=== PATIENT | male | born 1950 | race Caucasian/White ===

== ENCOUNTER 2021-11-30 08:08 | Outpatient (CLI) | payer MEDICARE, BC, SELFPAY | END 2021-11-30 08:09 | disposition home or self-care (01) | LOC: WOUND 08:09 | PROVIDERS: PCP Family Medicine; Visit Provider Nurse Practitioner Family | DX: I87.312 Chronic venous hypertension (idiopathic) with ulcer of left lower extremity (principal); L97.325 Non-pressure chronic ulcer of left ankle with muscle involvement without evidence of necrosis; I87.2 Venous insufficiency (chronic) (peripheral); Z86.718 Personal history of other venous thrombosis and embolism; D68.2 Hereditary deficiency of other clotting factors | CPT/HCPCS: 11042 ==

== ENCOUNTER 2021-12-07 08:08 | Outpatient (CLI) | payer MEDICARE, BC, SELFPAY | END 2021-12-07 08:09 | disposition home or self-care (01) | PROVIDERS: Visit Provider Nurse Practitioner Family | DX: I87.312 Chronic venous hypertension (idiopathic) with ulcer of left lower extremity (principal); L97.225 Non-pressure chronic ulcer of left calf with muscle involvement without evidence of necrosis; I87.2 Venous insufficiency (chronic) (peripheral) | CPT/HCPCS: 97597 ==

== ENCOUNTER 2021-12-21 07:56 | Outpatient (CLI) | payer MEDICARE, BC, SELFPAY | END 2021-12-21 07:57 | disposition home or self-care (01) | LOC: WOUND 07:57 | PROVIDERS: Visit Provider Nurse Practitioner Family | DX: I87.312 Chronic venous hypertension (idiopathic) with ulcer of left lower extremity (principal); L97.322 Non-pressure chronic ulcer of left ankle with fat layer exposed; D68.2 Hereditary deficiency of other clotting factors; I87.2 Venous insufficiency (chronic) (peripheral); Z86.718 Personal history of other venous thrombosis and embolism | CPT/HCPCS: 11042 ==

== ENCOUNTER 2021-12-28 07:56 | Outpatient (CLI) | payer MEDICARE, BC, SELFPAY | END 2021-12-28 07:57 | disposition home or self-care (01) | LOC: WOUND 07:56 | PROVIDERS: Visit Provider Nurse Practitioner Family | DX: I83.023 Varicose veins of left lower extremity with ulcer of ankle (principal); L97.325 Non-pressure chronic ulcer of left ankle with muscle involvement without evidence of necrosis | CPT/HCPCS: 11042 ==

== ENCOUNTER 2022-01-04 07:56 | Outpatient (CLI) | payer MEDICARE, BC, SELFPAY | END 2022-01-04 07:57 | disposition home or self-care (01) | LOC: WOUND 07:57 | PROVIDERS: Visit Provider Nurse Practitioner Family | DX: I87.312 Chronic venous hypertension (idiopathic) with ulcer of left lower extremity (principal); L97.322 Non-pressure chronic ulcer of left ankle with fat layer exposed | CPT/HCPCS: 11042 ==

== ENCOUNTER 2022-01-11 07:56 | Outpatient (CLI) | payer MEDICARE, BC, SELFPAY | END 2022-01-11 07:57 | disposition home or self-care (01) | LOC: WOUND 07:56 | PROVIDERS: Visit Provider Nurse Practitioner Family | DX: I87.312 Chronic venous hypertension (idiopathic) with ulcer of left lower extremity (principal); L97.325 Non-pressure chronic ulcer of left ankle with muscle involvement without evidence of necrosis | CPT/HCPCS: 15271; Q4121 ==

== ENCOUNTER 2022-01-18 08:02 | Outpatient (CLI) | payer MEDICARE, BC, SELFPAY | END 2022-01-18 08:03 | disposition home or self-care (01) | LOC: WOUND 08:02 | PROVIDERS: Visit Provider Nurse Practitioner Family | DX: I87.312 Chronic venous hypertension (idiopathic) with ulcer of left lower extremity (principal); L97.325 Non-pressure chronic ulcer of left ankle with muscle involvement without evidence of necrosis | CPT/HCPCS: 11042 ==

== ENCOUNTER 2022-01-25 07:57 | Outpatient (CLI) | payer MEDICARE, BC, SELFPAY | END 2022-01-25 07:58 | disposition home or self-care (01) | LOC: WOUND 07:57 | PROVIDERS: Visit Provider Nurse Practitioner Family | DX: I87.312 Chronic venous hypertension (idiopathic) with ulcer of left lower extremity (principal); L97.325 Non-pressure chronic ulcer of left ankle with muscle involvement without evidence of necrosis | CPT/HCPCS: 15271; Q4121 ==

== ENCOUNTER 2022-02-01 08:03 | Outpatient (CLI) | payer MEDICARE, BC, SELFPAY | END 2022-02-01 08:04 | disposition home or self-care (01) | LOC: WOUND 08:04 | PROVIDERS: Visit Provider Nurse Practitioner Family | DX: I87.312 Chronic venous hypertension (idiopathic) with ulcer of left lower extremity (principal); L97.325 Non-pressure chronic ulcer of left ankle with muscle involvement without evidence of necrosis | CPT/HCPCS: 97597 ==

== ENCOUNTER 2022-02-15 07:54 | Outpatient (CLI) | payer MEDICARE, BC, SELFPAY | END 2022-02-15 07:55 | disposition home or self-care (01) | LOC: WOUND 07:54 | PROVIDERS: Visit Provider Nurse Practitioner Family | DX: I87.312 Chronic venous hypertension (idiopathic) with ulcer of left lower extremity (principal); L97.325 Non-pressure chronic ulcer of left ankle with muscle involvement without evidence of necrosis | CPT/HCPCS: 15271; Q4121 ==

== ENCOUNTER 2022-02-22 07:50 | Outpatient (CLI) | payer MEDICARE, BC, SELFPAY | END 2022-02-22 07:51 | disposition home or self-care (01) | LOC: WOUND 07:50 | PROVIDERS: Visit Provider Nurse Practitioner Family | DX: I87.312 Chronic venous hypertension (idiopathic) with ulcer of left lower extremity (principal); L97.325 Non-pressure chronic ulcer of left ankle with muscle involvement without evidence of necrosis | CPT/HCPCS: 97597 ==

== ENCOUNTER 2022-03-01 07:58 | Outpatient (CLI) | payer MEDICARE, BC, SELFPAY | END 2022-03-01 07:59 | disposition home or self-care (01) | LOC: WOUND 07:59 | PROVIDERS: Visit Provider Nurse Practitioner Family | DX: I87.312 Chronic venous hypertension (idiopathic) with ulcer of left lower extremity (principal); L97.225 Non-pressure chronic ulcer of left calf with muscle involvement without evidence of necrosis | CPT/HCPCS: 11042 ==

== ENCOUNTER 2022-03-15 07:54 | Outpatient (CLI) | payer MEDICARE, BC, SELFPAY | END 2022-03-15 07:55 | disposition home or self-care (01) | LOC: WOUND 07:54 | PROVIDERS: Visit Provider Nurse Practitioner Family | DX: I87.313 Chronic venous hypertension (idiopathic) with ulcer of bilateral lower extremity (principal); L97.325 Non-pressure chronic ulcer of left ankle with muscle involvement without evidence of necrosis; L97.312 Non-pressure chronic ulcer of right ankle with fat layer exposed | CPT/HCPCS: 97602; 99213 ==

== ENCOUNTER 2022-03-29 07:54 | Outpatient (CLI) | payer MEDICARE, BC, SELFPAY | END 2022-03-29 07:55 | disposition home or self-care (01) | PROVIDERS: PCP Family Medicine; Visit Provider Nurse Practitioner Family | DX: I87.313 Chronic venous hypertension (idiopathic) with ulcer of bilateral lower extremity (principal); L97.322 Non-pressure chronic ulcer of left ankle with fat layer exposed; L97.312 Non-pressure chronic ulcer of right ankle with fat layer exposed | CPT/HCPCS: 97602; 99214 ==

== ENCOUNTER 2022-04-12 07:52 | Outpatient (CLI) | payer MEDICARE, BC, SELFPAY | END 2022-04-12 07:53 | disposition home or self-care (01) | LOC: WOUND 07:52 | PROVIDERS: PCP Family Medicine; Visit Provider Nurse Practitioner Family | DX: I87.312 Chronic venous hypertension (idiopathic) with ulcer of left lower extremity (principal); L97.225 Non-pressure chronic ulcer of left calf with muscle involvement without evidence of necrosis; I87.2 Venous insufficiency (chronic) (peripheral); L20.9 Atopic dermatitis, unspecified; Z86.718 Personal history of other venous thrombosis and embolism; D68.2 Hereditary deficiency of other clotting factors | CPT/HCPCS: 99213 ==

== ENCOUNTER 2022-04-19 07:58 | Outpatient (CLI) | payer MEDICARE, BC, SELFPAY | END 2022-04-19 07:59 | disposition home or self-care (01) | LOC: WOUND 07:58 | PROVIDERS: PCP Family Medicine; Visit Provider Nurse Practitioner Family | DX: I87.312 Chronic venous hypertension (idiopathic) with ulcer of left lower extremity (principal); L97.225 Non-pressure chronic ulcer of left calf with muscle involvement without evidence of necrosis; I87.2 Venous insufficiency (chronic) (peripheral) | CPT/HCPCS: 99212 ==

== ENCOUNTER 2022-09-10 10:54 | Emergency (ER) | payer MEDICARE, BC, SELFPAY ==
[2022-09-10 11:10] VITALS: BP 145/93; PULSE 60; RESP 18; TEMP 36.7; O2SAT 95; BMI 31.6
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
--- NOTE | 2022-09-10 12:21 | CRLHL7_ITS ---
For Patients: As a result of the Century Cures Act, medical imaging exams and procedure reports are released immediately into your electronic medical record. You may view this report before your referring provider. If you have questions, please contact your health care provider. Indication: Trauma. Technique: Two views right hand Comparison: None. Findings: Bones: There is a mildly displaced oblique fracture of the thumb proximal phalanx with extent to the MCP joint. There are also comminuted fractures of the 1st and 2nd distal phalanges and a nondisplaced fracture of the 3rd distal phalanx. Joint spaces: Mild-moderate arthrosis. Chondrocalcinosis. Soft tissues: Unremarkable. Impression: Fractures of the 1st proximal phalanx and 1st, 2nd and 3rd distal phalanges Dictated by Rogelio Cruz MD @ 09/10/2022 2:04:30 PM (Electronically Signed)
[2022-09-10 15:48] LABS: INR 2.56 (0.91-1.10); Prothrombin Time 28.7 Seconds
== END 2022-09-10 15:21 | disposition home or self-care (01) ==
PROVIDERS: Emergency Provider Family Medicine; PCP Student in an Organized Health Care Education/Training Program
DX: S61.011A Laceration without foreign body of right thumb without damage to nail, initial encounter (principal); S61.210A Laceration without foreign body of right index finger without damage to nail, initial encounter; S61.212A Laceration without foreign body of right middle finger without damage to nail, initial encounter; S61.214A Laceration without foreign body of right ring finger without damage to nail, initial encounter; S62.634A Displaced fracture of distal phalanx of right ring finger, initial encounter for closed fracture; S62.511A Displaced fracture of proximal phalanx of right thumb, initial encounter for closed fracture; W37.8XXA Explosion and rupture of other pressurized tire, pipe or hose, initial encounter
CPT/HCPCS: 12001; 29130; 36415; 73120; 85610; 99284

== ENCOUNTER 2022-11-06 08:03 | Outpatient (CLI) | payer MEDICARE, BC, SELFPAY | END 2022-11-06 08:04 | disposition home or self-care (01) | LOC: WOUND 08:03 | PROVIDERS: PCP Student in an Organized Health Care Education/Training Program; Visit Provider Nurse Practitioner Family | DX: I87.312 Chronic venous hypertension (idiopathic) with ulcer of left lower extremity (principal); I87.2 Venous insufficiency (chronic) (peripheral); I89.0 Lymphedema, not elsewhere classified; L97.829 Non-pressure chronic ulcer of other part of left lower leg with unspecified severity | CPT/HCPCS: 99212 ==

== ENCOUNTER 2022-11-20 08:38 | Outpatient (CLI) | payer MEDICARE, BC, SELFPAY | END 2022-11-20 08:39 | disposition home or self-care (01) | LOC: WOUND 08:38 | PROVIDERS: PCP Student in an Organized Health Care Education/Training Program; Visit Provider Physician Assistant Surgical | DX: I87.312 Chronic venous hypertension (idiopathic) with ulcer of left lower extremity (principal); L97.322 Non-pressure chronic ulcer of left ankle with fat layer exposed; I87.2 Venous insufficiency (chronic) (peripheral); I89.0 Lymphedema, not elsewhere classified | CPT/HCPCS: 11042 ==

== ENCOUNTER 2022-12-06 08:00 | Outpatient (RCR) | payer MEDICARE, BC, SELFPAY ==
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
== END 2022-12-06 16:46 | disposition home or self-care (01) ==
PROVIDERS: PCP Student in an Organized Health Care Education/Training Program; Visit Provider Orthopaedic Surgery
DX: S61.419A Laceration without foreign body of unspecified hand, initial encounter (principal); S62.609A Fracture of unspecified phalanx of unspecified finger, initial encounter for closed fracture; Z51.89 Encounter for other specified aftercare
CPT/HCPCS: 97110; 97140; X5282

== ENCOUNTER 2022-12-11 09:07 | Outpatient (CLI) | payer MEDICARE, BC, SELFPAY | END 2022-12-11 09:08 | disposition home or self-care (01) | LOC: WOUND 09:07 | PROVIDERS: PCP Student in an Organized Health Care Education/Training Program; Visit Provider Nurse Practitioner Family | DX: I87.313 Chronic venous hypertension (idiopathic) with ulcer of bilateral lower extremity (principal); L97.322 Non-pressure chronic ulcer of left ankle with fat layer exposed; L97.312 Non-pressure chronic ulcer of right ankle with fat layer exposed | CPT/HCPCS: 11042; 97597 ==

== ENCOUNTER 2022-12-25 08:02 | Outpatient (CLI) | payer MEDICARE, BC, SELFPAY | END 2022-12-25 08:03 | disposition home or self-care (01) | LOC: WOUND 08:02 | PROVIDERS: PCP Student in an Organized Health Care Education/Training Program; Visit Provider Nurse Practitioner Family | DX: I87.313 Chronic venous hypertension (idiopathic) with ulcer of bilateral lower extremity (principal); L97.312 Non-pressure chronic ulcer of right ankle with fat layer exposed; L97.322 Non-pressure chronic ulcer of left ankle with fat layer exposed | CPT/HCPCS: 11042 ==

== ENCOUNTER 2023-01-08 07:58 | Outpatient (CLI) | payer MEDICARE, BC, SELFPAY | END 2023-01-08 07:59 | disposition home or self-care (01) | LOC: WOUND 07:59 | PROVIDERS: PCP Student in an Organized Health Care Education/Training Program; Visit Provider Nurse Practitioner Family | DX: I87.313 Chronic venous hypertension (idiopathic) with ulcer of bilateral lower extremity (principal); L97.212 Non-pressure chronic ulcer of right calf with fat layer exposed; L97.322 Non-pressure chronic ulcer of left ankle with fat layer exposed; I87.2 Venous insufficiency (chronic) (peripheral); I89.0 Lymphedema, not elsewhere classified | CPT/HCPCS: 87070; 87186; 97597; 99212 ==

== ENCOUNTER 2023-01-22 08:04 | Outpatient (CLI) | payer MEDICARE, BC, SELFPAY | END 2023-01-22 08:05 | disposition home or self-care (01) | LOC: WOUND 08:05 | PROVIDERS: PCP Student in an Organized Health Care Education/Training Program; Visit Provider Nurse Practitioner Family | DX: I87.313 Chronic venous hypertension (idiopathic) with ulcer of bilateral lower extremity (principal); L97.312 Non-pressure chronic ulcer of right ankle with fat layer exposed; L97.322 Non-pressure chronic ulcer of left ankle with fat layer exposed; I87.2 Venous insufficiency (chronic) (peripheral); I89.0 Lymphedema, not elsewhere classified | CPT/HCPCS: 97597 ==

== ENCOUNTER 2023-02-05 08:03 | Outpatient (CLI) | payer MEDICARE, BC, SELFPAY | END 2023-02-05 08:04 | disposition home or self-care (01) | LOC: WOUND 08:03 | PROVIDERS: PCP Student in an Organized Health Care Education/Training Program; Visit Provider Nurse Practitioner Family | DX: I87.313 Chronic venous hypertension (idiopathic) with ulcer of bilateral lower extremity (principal); L97.312 Non-pressure chronic ulcer of right ankle with fat layer exposed; L97.322 Non-pressure chronic ulcer of left ankle with fat layer exposed; L97.812 Non-pressure chronic ulcer of other part of right lower leg with fat layer exposed | CPT/HCPCS: 11042; 97597 ==

== ENCOUNTER 2023-02-19 08:15 | Outpatient (CLI) | payer MEDICARE, BC, SELFPAY | END 2023-02-19 08:16 | disposition home or self-care (01) | LOC: WOUND 08:16 | PROVIDERS: PCP Student in an Organized Health Care Education/Training Program; Visit Provider Nurse Practitioner Family | DX: I87.313 Chronic venous hypertension (idiopathic) with ulcer of bilateral lower extremity (principal); L97.312 Non-pressure chronic ulcer of right ankle with fat layer exposed; L97.322 Non-pressure chronic ulcer of left ankle with fat layer exposed | CPT/HCPCS: 97597 ==

== ENCOUNTER 2023-03-05 08:06 | Outpatient (CLI) | payer MEDICARE, BC, SELFPAY | END 2023-03-05 08:07 | disposition home or self-care (01) | LOC: WOUND 08:06 | PROVIDERS: PCP Student in an Organized Health Care Education/Training Program; Visit Provider Nurse Practitioner Family | DX: I87.313 Chronic venous hypertension (idiopathic) with ulcer of bilateral lower extremity (principal); L97.312 Non-pressure chronic ulcer of right ankle with fat layer exposed; L97.322 Non-pressure chronic ulcer of left ankle with fat layer exposed; I87.2 Venous insufficiency (chronic) (peripheral); I89.0 Lymphedema, not elsewhere classified | CPT/HCPCS: 97597 ==

== ENCOUNTER 2023-03-19 08:06 | Outpatient (CLI) | payer MEDICARE, BC, SELFPAY | END 2023-03-19 08:07 | disposition home or self-care (01) | LOC: WOUND 08:07 | PROVIDERS: PCP Student in an Organized Health Care Education/Training Program; Visit Provider Nurse Practitioner Family | DX: I87.313 Chronic venous hypertension (idiopathic) with ulcer of bilateral lower extremity (principal); L97.312 Non-pressure chronic ulcer of right ankle with fat layer exposed; L97.322 Non-pressure chronic ulcer of left ankle with fat layer exposed; I87.2 Venous insufficiency (chronic) (peripheral); I89.0 Lymphedema, not elsewhere classified | CPT/HCPCS: 97597 ==

== ENCOUNTER 2023-04-02 10:46 | Outpatient (CLI) | payer MEDICARE, BC, SELFPAY | END 2023-04-02 10:47 | disposition home or self-care (01) | LOC: WOUND 10:46 | PROVIDERS: PCP Student in an Organized Health Care Education/Training Program; Visit Provider Nurse Practitioner Family | DX: I87.313 Chronic venous hypertension (idiopathic) with ulcer of bilateral lower extremity (principal); L97.322 Non-pressure chronic ulcer of left ankle with fat layer exposed; L97.312 Non-pressure chronic ulcer of right ankle with fat layer exposed; L97.318 Non-pressure chronic ulcer of right ankle with other specified severity | CPT/HCPCS: 97597 ==

== ENCOUNTER 2023-04-16 07:55 | Outpatient (CLI) | payer MEDICARE, BC, SELFPAY | END 2023-04-16 07:56 | disposition home or self-care (01) | LOC: WOUND 07:55 | PROVIDERS: PCP Student in an Organized Health Care Education/Training Program; Visit Provider Family Medicine | DX: I87.313 Chronic venous hypertension (idiopathic) with ulcer of bilateral lower extremity (principal); L97.322 Non-pressure chronic ulcer of left ankle with fat layer exposed; L97.312 Non-pressure chronic ulcer of right ankle with fat layer exposed; I89.0 Lymphedema, not elsewhere classified | CPT/HCPCS: 97597 ==

== ENCOUNTER 2023-04-30 08:08 | Outpatient (CLI) | payer MEDICARE, BC, SELFPAY | END 2023-04-30 08:09 | disposition home or self-care (01) | LOC: WOUND 08:09 | PROVIDERS: PCP Student in an Organized Health Care Education/Training Program; Visit Provider Nurse Practitioner Family | DX: I87.313 Chronic venous hypertension (idiopathic) with ulcer of bilateral lower extremity (principal); L97.312 Non-pressure chronic ulcer of right ankle with fat layer exposed; L97.322 Non-pressure chronic ulcer of left ankle with fat layer exposed | CPT/HCPCS: 11042; 97597 ==

== ENCOUNTER 2023-05-14 08:08 | Outpatient (CLI) | payer MEDICARE, BC, SELFPAY | END 2023-05-14 08:09 | disposition home or self-care (01) | LOC: WOUND 08:09 | PROVIDERS: PCP Student in an Organized Health Care Education/Training Program; Visit Provider Nurse Practitioner Family | DX: L97.312 Non-pressure chronic ulcer of right ankle with fat layer exposed (principal); L97.322 Non-pressure chronic ulcer of left ankle with fat layer exposed; I89.0 Lymphedema, not elsewhere classified; I87.313 Chronic venous hypertension (idiopathic) with ulcer of bilateral lower extremity | CPT/HCPCS: 97597 ==

== ENCOUNTER 2023-05-28 08:00 | Outpatient (CLI) | payer MEDICARE, BC, SELFPAY | END 2023-05-28 08:01 | disposition home or self-care (01) | LOC: WOUND 08:00 | PROVIDERS: PCP Student in an Organized Health Care Education/Training Program; Visit Provider Family Medicine | DX: I87.313 Chronic venous hypertension (idiopathic) with ulcer of bilateral lower extremity (principal); L97.322 Non-pressure chronic ulcer of left ankle with fat layer exposed; L97.312 Non-pressure chronic ulcer of right ankle with fat layer exposed; L08.89 Other specified local infections of the skin and subcutaneous tissue; B96.5 Pseudomonas (aeruginosa) (mallei) (pseudomallei) as the cause of diseases classified elsewhere | CPT/HCPCS: 11042; 87070; 87186; 99212 ==

== ENCOUNTER 2023-06-01 03:43 | Outpatient (CLI) | payer MEDICARE, BC, SELFPAY | END 2023-06-01 03:44 | disposition home or self-care (01) | LOC: AMB 06-05 10:49 | PROVIDERS: PCP Student in an Organized Health Care Education/Training Program; Visit Provider Family Medicine | DX: G47.00 Insomnia, unspecified (principal) ==

== ENCOUNTER 2023-06-05 10:05 | Outpatient (CLI) | payer MEDICARE, BC, SELFPAY | END 2023-06-05 10:06 | disposition home or self-care (01) | LOC: WOUND 10:05 | PROVIDERS: PCP Student in an Organized Health Care Education/Training Program; Visit Provider Family Medicine | DX: I87.313 Chronic venous hypertension (idiopathic) with ulcer of bilateral lower extremity (principal); L97.312 Non-pressure chronic ulcer of right ankle with fat layer exposed; L97.322 Non-pressure chronic ulcer of left ankle with fat layer exposed; I89.0 Lymphedema, not elsewhere classified | CPT/HCPCS: 11042 ==

== ENCOUNTER 2023-06-11 08:01 | Outpatient (CLI) | payer MEDICARE, BC, SELFPAY ==
--- OUTSIDE RECORDS SUMMARY | 2023-06-11 08:03 | XMS_ITS | Clinical Summary ---
Author Name Unknown Organization [facility] Address [place], [place] [address] Care Team Providers Care Radiologic Therapist Name Role Phone Yue Alonso Thomasmedhat ELIZA Primary Care Provider Allergies Active Allergy Reactions Criticality Noted Date Comments Atorvastatin Myalgia 07/04/2022 Medications Medication Sig Dispensed Refills Start Date End Date Status WARFARIN SODIUM (WARFARIN ORAL) Take 7.5 mg by mouth. 0 Active losartan (COZAAR) 50 mg tablet Take 50 mg by mouth once daily. 0 Active traMADol (ULTRAM) 50 mg tablet Take 50 mg by mouth every 6 hours if needed for Pain. 0 Active ACETAMINOPHEN ORAL Take 1,000 mg by mouth 3 times daily if needed. 0 Active gabapentin (NEURONTIN) 300 mg capsule Take 600 mg by mouth 2 times daily. 0 02/14/2021 Active cephalexin (KEFLEX) 500 mg capsule Take 500 mg by mouth 3 times daily. 0 05/10/2021 Active permethrin (ELIMITE) 5 % creamIndications:Rash, Scabies,Itchy skin Apply to entire body from the neck down and leave on for 8 hours. Then rinse and repeat this in one week. 60 g 0 05/13/2021 Active amLODIPine (NORVASC) 10 mg tablet Take 10 mg by mouth once daily. 0 03/16/2022 Active zolpidem (AMBIEN) 5 mg tablet Take 1 Tablet by mouth at bedtime. 0 01/25/2022 Active Active Problems Problem Noted Date Diagnosed Date Asymmetrical sensorineural hearing loss 11/09/19 23 Hyperlipidemia 07/02/2017 Excessive anticoagulation 05/17/2017 Adenomatous polyp of colon 07/13/2016 Overview: Overview: Sessile serrated adenoma & tubular adenoma. No overt or high grade dysplasia. Per pathology reprot. Arthritis of shoulder 07/13/2016 Chronic pain syndrome 07/13/2016 Edema leg 07/13/2016 Essential hypertension 07/13/2016 Overview: Overview: Hypertension (HTN) Essential Benign Osteoporosis 07/13/2016 Pain of lower extremity 07/13/2016 Overview: Overview: Saw Neurologist at [facility] on 09/16/2009. MRI lumbar spine done on 09/09/2009. 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 Presence of cardiac and vasc ular implant and graft, unspecified 01/11/2012 Chondrocalcinosis due to pyrophosphate crystals 12/16/2011 Pain, knee 12/13/2011 Polyarthralgia 11/18/2011 Insomnia 11/18/2011 Obstructive sleep apnea syndrome 11/18/2011 Overview: He does not use CPAP. He does not think he needs it. Osteoarthritis 11/18/2011 Debility 04/11/2009 Encounters Date Type Department Care Team Description 05/10/2023 9:30 AM GERMINATION TESTING MANAGER Office Visit [facility] [address] [place] [address] Bhavik Benson, AuD Hearing Aid 05/10/2023 Travel from Last 3 Months Immunizations Name Administration Dates Next Due Tdap 01/12/2008 Social History Tobacco Use Types Packs/Day Years Used Date Smoking Tobacco: Former Cigarettes Q uit: 06/03/1982 Passive Smoke Exposure: Past Smokeless Tobacco: Never Tobacco Cessation:Counseling Given: Not Answered Alcohol Use Standard Drinks/Week Comments No 0 (1 standard drink = 0.6 oz pur e alcohol) Social Connections Answer Date Recorded Frequency of Communication with Friends and Fami ly Not on file 05/27/2021 Financial Resource Strain Answer Date R ecorded Difficulty of Paying Living Expenses Not on file 05/27/2021 Difficulty of Paying Living Expenses Not on file 05/27/2021 Sex and Gender Information Value Date Recorded Sex Assigned at Not on file Gender Identity Not on file Sexual Orientation Not on file Obstetrics History Last Filed Vital Signs Vital Sign Reading Time Taken Comments Blood Pressure 117/67 05/13/2021 2:55 PM GERMINATION TESTING MANAGER Pulse 103 05/13/2021 2:55 PM GERMINATION TESTING MANAGER Temperature 36.9 ??C (98.4 ??F) 05/13/2021 2:55 PM CS T Respiratory Rate 18 05/13/2021 2:55 PM GERMINATION TESTING MANAGER Oxygen Saturation 99% 05/13/2021 2:55 PM GERMINATION TESTING MANAGER Inhaled Oxygen Concentration - - Weight 97.8 kg (215 lb 9.8 oz) 07/04/2022 11:35 AM GERMINATION TESTING MANAGER Height 175.7 cm (5' 9.17) 07/04/2022 11:[address] Body Mass Index 31.68 07/04/2022 11:35 AM GERMINATION TESTING MANAGER Plan of Treatment Health Maintenance Due Date Last Done Comments Depression screening for age 12+ 1960 Hepatitis C screening for age 18-79 1966 Colonoscopy through age 75 1993 Lipids for age 45-75 1993 Zoster (shingles) series for age 50+ (1 of 2) 1998 AAA screening age 65-74 2013 Medicare Wellness for age 65+ 2013 Pneumococcal series for age 65+ (1 of 1 - PCV) 2013 Tetanus booster 01/11/2018 01/12/2008 BMI (ht and wt on same day) for age 18+ 04/15/2021 04/15/2020 COVID-19 vaccine series ( season) 2023 04/14/2021, 08/28/2020, 07/31/2020 Influenza for age 65+ 02/01/2023 Tdap Completed 01/12/2008 Advance Directives Latest Code Status on File Code Status Date Activated Date Inactivated Comments Full Code 12/27/2014 8:51 AM 12/27/2014 12:46 PM Care Teams Radiologic Therapist Relationship Specialty Start Date End Date Yue Alonso MBBS [address] [place] [address] [place] [address] PCP - General Family Practice 06/26/22
--- OUTSIDE RECORDS SUMMARY | 2023-06-11 08:03 | XMS_ITS | Clinical Summary ---
Author Name Unknown Organization [facility] Address [address] [place] [address] Care Team Providers Care Recreational [employer]ilities Motel Manager Name Role Phone Stefan Salomon M.D. Primary Care Provider [phone] Source Comments Patient records contain information from all sites at [facility]. For routine questions regarding patient records, call [phone] during business hours, M-F 8:00 AM - 5:00 PM Central Time. Record requests for emergency care only can be directed to [phone] at any time.[facility] Allergies Active Allergy Reactions Criticality Noted Date Comments Atorvastatin Myalgia 02/08/2017 Leg Pain/Cramps Cbdzthe-Zqq-Wcp Reductase Inhibitors Other (see comments) 09/10/2022 Medications Medication Sig Dispensed Refills Start Date End Date Status hydrocortisone (HYTONE) 2.5 % cream Apply to rash/itch/irritation involving the face and skin folds twice daily as needed 30 g 2 2 Active fluocinonide (LIDEX) 0.05 % cream Apply twice daily to areas of rash/itch/irritation as needed. DO NOT use on face or skin folds 120 g 2 2 Active triamcinolone (KENALOG) 0.1 % cream Apply to rash/itch/irritation involving the trunk and extremities twice daily as needed. DO NOT use on face or skin folds. 454 g 1 3 Active acetaminophen (TYLENOL) 500 mg capsule Take 500 mg by mouth every 6 (six) hours as needed for pain. Takes 4,000 mg usually each day 0 Active fluorouraciL (EFUDEX) 5 % cream Apply 1 application. topically 2 (two) times a day. Apply to scalp for 2-3 weeks. 40 g 0 3 Active losartan (COZAAR) 50 mg tablet Take 1 tablet (50 mg total) by mouth daily. 90 tablet 3 3 08/01/19 24 Active polyethylene glycol-electrolyt es (GoLYTELY) 236-22.74-6.74 -5.86 gram solution Drink 1st portion of prep at 6 PM the evening before. 2nd portion must be started 3 hours before and finished 2 hours prior to report time 4000 mL 0 3 Active zolpidem (AMBIEN) 5 mg tablet TAKE ONE TABLET BY MOUTH AT BEDTIME NEEDED FOR SLEEP 30 tablet 0 3 Active warfarin (COUMADIN) 5 mg tabletIndications :Anticoagulant Therapy,Mutation Factor V Leiden Heterozygous (HCC),Monitoring For Therapeutic Drug Therapy,Thrombosi s Deep Vein Personal History Please take as directed by your Anticoagulation Clinic. 130 tablet 3 3 Active gabapentin (NEURONTIN) 300 mg capsuleIndication s:Insufficiency Venous,Chronic Pain Syndrome,Pain Limb Generalized,Pain Leg Bilateral,Pseudog out Take 2 capsules (600 mg total) by mouth 3 (three) times a day. 540 capsule 3 3 Active amLODIPine (NORVASC) 10 mg tablet TAKE ONE TABLET BY MOUTH EVERY DAY 90 tablet 3 3 Active traMADoL (ULTRAM) 50 mg tabletIndications :Chronic Pain/Nonacute Pain Take 1-2 tablets (50-100 mg total) by mouth every 6 (six) hours as needed for pain Indications: Chronic Pain/Nonacute Pain. 240 tablet 0 4 Active traMADoL (ULTRAM) 50 mg tabletIndications :Chronic Pain/Nonacute Pain Take 1-2 tablets (50-100 mg total) by mouth every 6 (six) hours as needed for pain Indications: Chronic Pain/Nonacute Pain. 240 tablet 0 3 06/01/20 23 Discontinu ed(Reorder ) Active Problems Problem Noted Date Diagnosed Date Activated Protein C Resistance 06/19/2022 History Of Falling 05/12/2020 Monitoring For Therapeutic Drug Therapy [Z51.81] 08/20/2017 Hyperlipidemia 07/02/2017 Anticoagulant Therapy [Z79.01] 05/17/2017 Hypertension Essential Primary 07/13/2016 Overview: Hypertension (HTN) Essential Benign Arthritis Shoulder 07/13/2016 Chronic Pain Syndrome 07/13/2016 Degeneration Disc Cervical 07/13/2016 Fatigue 07/13/2016 Insufficiency Venous 07/13/2016 Osteoporosis 07/13/2016 Pain Leg Bilateral 07/13/2016 Polyp Colon Adenomatous 07/13/2016 Overview: Sessile serrated adenoma & tubular adenoma. No overt or high grade dysplasia. Per pathology reprot. Mutation Factor V Leiden Heterozygous 06/13/2016 Stasis Ulcer Varicose Vein Right 12/08/2015 Stasis Ulcer With Varicose Vein Left 12/08/2015 Neuropathy Peripheral Vasculitic 11/09/2015 Obstruction Inferior Vena Cava 08/01/2015 Stasis Dermatitis Lower Extremity 12/06/2014 Complication Mechanical Dental Implant Subsequen t 08/18/2014 Thrombosis Deep Vein Personal History 01/08/2014 Restless Leg Syndrome 10/14/2013 Overview: Starts Klonopin on 07/09/2013. Inferior Vena Cava Filter 01/11/2012 Pseudogout 12/16/2011 Pain Knee 12/13/2011 Snoring 2011 Burning Sensation Skin 11/18/2011 Osteoarthritis 11/18/2011 Insomnia 11/18/2011 Pain Limb Generalized 11/18/2011 Overview: Saw Neurologist at [facility] on 09/16/2009. MRI lumbar spine done on 09/09/2009. Apnea Sleep Obstructive 11/18/2011 Overview: He does not use CPAP. He does not think he needs it. Polyarthralgia 11/18/2011 Dysfunction Erectile 09/21/2010 Arthralgia 10/14/2009 Chondrocalcinosis 10/14/2009 Atrophy Muscular 04/11/2009 Edema 03/29/2009 Edentulous Partial 12/27/2008 Non-Pressure Chronic Ulcer O f Unspecified Part Of Right Lower Leg With Unspecified Severity Resolved Problems Problem Noted Date Diagnosed Date Resolved Date COVID-19 Infection 07/24/2021 3 Drooling 09/05/2016 08/01/2022 Neuroma Acoustic 07/13/2016 08/19/2018 Overview: Neuroma Acoustic Left Compartment Syndrome Leg Nontraumatic Left 07/13/2016 08/01/2022 Edema Leg 07/13/2016 08/01/2022 Fever Rheumatic Personal History 07/13/2016 08/01/2022 High Risk Medication 07/13/2016 023 Ulcer Leg Left 11/09/2015 07/15/2017 Overview: Ulcer Leg L Ulcer Lower Limb 12/06/2014 08/19/2018 Anemia 05/08/2012 08/19/2018 Thrombosis Deep Vein Acute Lower Extremity 11/18/2011 07/15/2017 Overview: DVT of right leg S/P IVC filter on 08/24/1996. 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 Anticoagulant Therapy [Z79.01] (Primary Dx); Mutation Factor V Leiden Heterozygous (HCC); Monitoring For Therapeutic Drug Therapy [Z51.81]; Thrombosis Deep Vein Personal History 06/04/2023 1:46 PM MANAGER FIELD INVESTIGATIONS - 06/04/2023 11:59 PM MANAGER FIELD INVESTIGATIONS Hospital Encounter Department of Laboratory Medicine in [address] [address] Stefan Salomon M.D. Anticoagulant Therapy [Z79.01]; Mutation Factor V Leiden Heterozygous (HCC); Monitoring For Therapeutic Drug Therapy [Z51.81]; Thrombosis Deep Vein Personal History Discharge Disposition: Home or Self Care 06/01/2023 Refill Department of Family Medicine, [facility], in [address] [address] Stefan Salomon M.D. Med Refill 05/31/2023 Clinical Communication Department of Family Medicine, [facility], in [address] [address] Stefan Salomon M.D. 05/17/2023 10:00 AM MANAGER FIELD INVESTIGATIONS Anticoagulation Visit Department of Anticoagulation in [address] [address] Stefan Salomon M.D. Anticoagulant Therapy [Z79.01] (Primary Dx); Mutation Factor V Leiden Heterozygous (HCC); Monitoring For Therapeutic Drug Therapy [Z51.81]; Thrombosis Deep Vein Personal History; Hypertension Essential Primary; Hyperlipidemia; Residential (Current) Anticoagulant Treatment 05/17/2023 7:20 AM MANAGER FIELD INVESTIGATIONS - 05/17/2023 11:59 PM MANAGER FIELD INVESTIGATIONS Hospital Encounter Department of Laboratory Medicine in [address] [address] Stefan Salomon M.D. Anticoagulant Therapy [Z79.01]; Mutation Factor V Leiden Heterozygous (HCC); Monitoring For Therapeutic Drug Therapy [Z51.81]; Thrombosis Deep Vein Personal History Discharge Disposition: Home or Self Care 05/01/2023 Refill Department of Family Medicine, [facility], in [address] [address] Stefan Salomon M.D. Med Refill 04/22/2023 8:00 AM MANAGER FIELD INVESTIGATIONS Anticoagulation Visit Department of Anticoagulation in [address] [address] Stefan Salomon M.D. Anticoagulant Therapy [Z79.01] (Primary Dx); Mutation Factor V Leiden Heterozygous (HCC); Monitoring For Therapeutic Drug Therapy [Z51.81]; Thrombosis Deep Vein Personal History 04/19/2023 9:02 AM MANAGER FIELD INVESTIGATIONS - 04/19/2023 11:59 PM MANAGER FIELD INVESTIGATIONS Hospital Encounter Department of Laboratory Medicine in [address] [address] Stefan Salomon M.D. Discharge Disposition: Home or Self Care 04/19/2023 9:00 AM MANAGER FIELD INVESTIGATIONS Anticoagulation Visit Department of Anticoagulation in [place], [place] [address] [place] [address] Stefan Salomon M.D. Anticoagulant Therapy [Z79.01]; Mutation Factor V Leiden Heterozygous (HCC); Monitoring For Therapeutic Drug Therapy [Z51.81]; Thrombosis Deep Vein Personal History 04/19/2023 7:33 AM MANAGER FIELD INVESTIGATIONS - 04/19/2023 9:01 AM MANAGER FIELD INVESTIGATIONS Hospital Encounter Department of Laboratory Medicine and Pathology, [place], [place] [address] [place] [address] Stefan Salomon M.D. Anticoagulant Therapy [Z79.01]; Mutation Factor V Leiden Heterozygous (HCC); Monitoring For Therapeutic Drug Therapy [Z51.81]; Thrombosis Deep Vein Personal History Discharge Disposition: Home or Self Care 04/19/2023 7:20 AM MANAGER FIELD INVESTIGATIONS - 04/19/2023 7:32 AM MANAGER FIELD INVESTIGATIONS Hospital Encounter Department of Laboratory Medicine in [address] [phone] Stefan Salomon M.D. Hypertension Essential Primary; Hyperlipidemia Discharge Disposition: Home or Self Care 04/19/2023 Clinical Communication Department of Anticoagulation in [place], [place] [address] [place] [phone] Pippa Morales R.N. Anticoagulation (Unable to reach 04/19/23) 04/02/2023 Refill Department of Family Medicine, [facility], in [address] [phone] Stefan Salomon M.D. Med Refill 03/20/2023 Refill Department of Family Medicine, [facility], in [address] [phone] Yue Alonso M.D. Med Refill 03/14/2023 9:30 AM CDT Anticoagulation Visit Department of Anticoagulation in [place], [place] [address] [place] [phone] Stefan Salomon M.D. Anticoagulant Therapy [Z79.01]; Mutation Factor V Leiden Heterozygous (HCC); Monitoring For Therapeutic Drug Therapy [Z51.81]; Thrombosis Deep Vein Personal History 03/14/2023 7:47 AM CDT - 03/14/2023 11:59 PM CDT Hospital Encounter Department of Laboratory Medicine in [address] [phone] Stefan Salomon M.D. Anticoagulant Therapy [Z79.01]; Mutation Factor V Leiden Heterozygous (HCC); Monitoring For Therapeutic Drug Therapy [Z51.81]; Thrombosis Deep Vein Personal History Discharge Disposition: Home or Self Care from Last 3 Months Immunizations Name Administration Dates Next Due DT, Pediatric 04/05/2006 Influenza Split 03/16/2009 Influenza high dose QV(65 ye ars or older) (PF) 04/20/2021 Influenza, Quadrivalent, Adj uvanted, Preservative Free 04/19/2022,03/10/2020 Influenza, Unspecified 07/13/2016 PCV13 10/29/2014 PPSV23 07/02/2017 RZV (SHINGRIX) 12/30/2020(Deferred: Patient Ref used) SARS-COV-2 (COVID-19) - MODERNA 04/14/2021 SARS-COV-2 (COVID-19) - MODE RNA BIVALENT 04/21/2022 Td Preservative Free (TENIVA C, DECAVAC) 12/30/2020,04/11/2006 Tdap 04/20/2021,01/12/2008 Zoster, Unspecified 12/30/2020(Deferred: Other) Family History Medical History Relation Name Comments Heart failure Brother jackson Hypertension Brother jackson Factor V Leiden Daughter 1 No Known Problems Daughter 2 ALS Father Cataracts Father Depression Father Factor V Leiden Father circulation problems - legs Father Alcohol abuse Grandfather Grandparents w ith alcohol abuse. Alcohol abuse Grandmother Grandparents w ith alcohol abuse. Cancer Mother kristal Lymph Lymphoma Mother kristal yes- in 1973 Anticoagulant therapy Sister vydetta Eczema Sister vydetta Factor V Leiden Sister vydetta Hypertension Sister vydetta Leukemia Sister vydetta Relation Name Status Comments Brother jackson Daughter 1 Alive Daughter 2 Alive Father Grandfather Grandmother Mother kristal valles Social History Tobacco Use Types Packs/Day Years Used Date Smoking Tobacco: Former Cigarettes 0 Smokeless Tobacco: Never Tobacco Cessation:Counseling Given: Not Answered Alcohol Use Standard Drinks/Week Comments Not Currently 0 (1 standard drink = 0.6 oz pur e alcohol) Humiliation, Afraid, Rape, and Kick questionnair e Answer Date Recorded Within the last year, have y ou been afraid of your partner or ex-partner? No 07/09/2022 Within the last year, have y ou been humiliated or emotionally abused in other ways by your partner or ex-partner? No Within the last year, have y ou been kicked, hit, slapped, or otherwise physically hurt by your partner or ex-partner? No 07/09/2022 Within the last year, have y ou been raped or forced to have any kind of sexual activity by your partner or ex-partner? No 07/09/2022 Social Connection and Isolation Panel [NHANES] A nswer Date Recorded In a typical week, how many times do you talk on the phone with family, friends, or neighbors? Twice a week 07/09/2022 How often do you get together with friends or re latives? Once a week 07/09/2022 How often do you attend tenriism or mormonism serv ices? Never 07/09/2022 Do you belong to any clubs o r organizations such as tenriism groups, unions, fraternal or athletic groups, or school groups? No 07/09/2022 How often do you attend meet ings of the clubs or organizations you belong to? Never 07/09/2022 Are you , , di vorced, , never , or living with a partner? 07/09/2022 AUDIT-C Answer Date Recorded Q1: How often do you have a drink containing alc ohol? Never 07/09/2022 Average Number of Drinks Not on file 023 Frequency of Binge Drinking Not on file 11/2022 Overall Financial Resource Strain (CARDIA) Answe r Date Recorded How hard is it for you to pa y for the very basics like food, housing, medical care, and heating? Not hard at all 07/09/2022 PHQ-2 Answer Date Recorded PHQ-2 Score 0 07/09/2022 [facility] - Occupational Stress Questionnaire Answer Date Recorded Do you feel stress - tense, restless, nervous, or anxious, or unable to sleep at night because your mind is troubled all the time - these days? Not at all 07/09/2022 Exercise Vital Sign Answer Date Recorde d On average, how many days pe r week do you engage in moderate to strenuous exercise (like a brisk walk)? 7 days 07/09/2022 On average, how many minutes do you engage in exercise at this level? 150+ min 07/09/2022 Hunger Vital Sign Answer Date Recorded Within the past 12 months, y ou worried that your food would run out before you got the money to buy more. Never true 07/09/19 23 Within the past 12 months, t he food you bought just didn't last and you didn't have money to get more. Never true 07/09/2022 PRAPARE - Transportation Answer Date Re corded In the past 12 months, has l ack of transportation kept you from medical appointments or from getting medications? No 11/2022 In the past 12 months, has l ack of transportation kept you from meetings, work, or from getting things needed for daily living? No 07/09/2022 Housing Stability Vital Sign Answer Tyshawn e Recorded In the last 12 months, was t here a time when you were not able to pay the mortgage or rent on time? No 07/09/2022 In the last 12 months, how many places have you lived? 1 07/09/2022 In the last 12 months, was t here a time when you did not have a steady place to sleep or slept in a penitentiary (including now)? No 07/09/2022 Depression Answer Date Recor ded PHQ-9 Total Score (max 27) 0 07/09 Nutrition Answer Date Recorded Nutrition: EVOO Fat Source No 07/09 On average, how many serving s of fruits and vegetables do you eat per day (serving size is equal to 1 cup or approximately the size of a tennis ball)? 0-1 07/09/2022 Dental Answer Date Recorded Dental: Regular Dentist Yes 05/30/20 Employment Answer Date Recorded Employment status Employed and actively working without restrictions 07/09/2022 Education Answer Date Recorded What is the highest level of school you have completed or the highest degree you have received? Bachelor's degree (e.g., BA, AB, BS) 07/09/2022 Sex and Gender Information Value Date Recorded Sex Assigned at Not on file Gender Identity Male 07/02/2017 9:12 AM MANAGER FIELD INVESTIGATIONS Sexual Orientation Straight 07/02/2017 9: 12 AM MANAGER FIELD INVESTIGATIONS Last Filed Vital Signs Vital Sign Reading Time Taken Comments Blood Pressure 136/71 02/21/2023 3:10 PM CDT Pulse 69 02/21/2023 3:10 PM CDT Temperature 36.9 ??C (98.4 ??F) 02/21/2023 3:10 PM CD T Respiratory Rate 18 07/09/2022 7:27 AM MANAGER FIELD INVESTIGATIONS Oxygen Saturation 96% 02/21/2023 3:10 PM CDT Inhaled Oxygen Concentration - - Weight 90 kg (198 lb 6.6 oz) 02/21/2023 3:10 PM CDT Height 176.5 cm (5' 9.49) 08/01/2022 9:59 AM CS T Body Mass Index 28.89 08/01/2022 9:59 AM MANAGER FIELD INVESTIGATIONS Plan of Treatment Upcoming Encounters Date Type Department Care Team (Latest Contact Info) Description 06/12/2023 4:15 PM MANAGER FIELD INVESTIGATIONS Office Visit Department of Family Medicine, [facility], in [address] [phone] Stefan Salomon M.D. [address] [place] [phone] Discharge Disposition: Home or Self Care 06/21/2023 8:50 AM MANAGER FIELD INVESTIGATIONS Appointment Department of Laboratory Medicine in [address] [phone] Stefan Salomon M.D. [address] [place] [phone] 06/21/2023 9:30 AM MANAGER FIELD INVESTIGATIONS Anticoagulation Visit Department of Anticoagulation in [place], [place] [address] [place] [address] Stefan Salomon M.D. [address] [place] [phone] Health Maintenance Due Date Last Done Comments CT Colonography 1950 Cologuard 1950 Zoster Vaccines (1 of 2) 1998 Colonoscopy 12/28/2019 12/27/2014 Colorectal Cancer Surveillance 12/28/2019 COVID-19 Vaccine (2022-07 4 season) 2023 04/21/2022, 04/14/2021, 08/28/2020, Additional history exists Generalized Anxiety (DESMOND-7) 03/05/2023 03/05/2022 Controlled Substance Agreement 05/10/2023 03/05/2022 Opioid Use Disorder (OUD) Screening 05/11/2023 PEG assessment for Opioid therapy 05/17/2023 023 Depression Screening (Annual PHQ-2) 06/03/2023 Fall Risk Screen (Annual) 06/03/2023 Controlled Substance Monitor ing (PHQ-9) 07/09/2023 07/09/2022 Opioid Risk Tool (ORT) 07/09/2023 07/09/2022 Visit: Medicare Annual Wellness 07/10/2023 3 Office Visit for Blood Press ure Check / Re-check 02/22/2024 02/21/2023 Visit: Chronic Disease, age 18+ 02/22/2024 3 Controlled Substance Monitoring 02/24/2024 3 Creatinine Level (Kidney Fun ction Test) 04/19/2024 04/19/2023, 04/30/2022, 06/08/2021, Additional history exists Lipid (Cholesterol) Screening 04/19/2024, 03/16/2022, 08/14/2018, Additional history exists Potassium Level 04/19/2024 04/19/2023, 04/04, 06/08/2021, Additional history exists Sodium Level 04/19/2024 04/19/2023, 04/04, 06/08/2021, Additional history exists Fasting Glucose for Diabetes Screening 04/19/2026 04/19/2023, 04/30/2022, 06/08/2021, Additional history exists DTaP,Tdap,and Td Vaccines (6 - Td or Tdap) 04/20/2031 04/20/2021, 12/30/2020, 01/12/2008, Additional history exists Abdominal Aortic Aneurysm (A AA) Screen Completed 11/09/2014, 01/11/2012, 09/07/2009, Additional history exists Hepatitis C Screening Completed 06/15/2016, 017 Pneumococcal vaccine (65+ years) Completed 07/02/19, 10/29/2014 Influenza Vaccine Completed 04/02/2023, , 04/20/2021, Additional history exists Medical Devices Implanted Type Area Mill Work Device Identifier Shelf Expiration Date Model / Serial / Lot Mineralized Cancellous Bone 2.0 - Anne [id number] Implanted:Qty: 1 on 08/10/2015 Bone or Tissue Tooth [employer] [facility] Description:Device Manufactu rer - [employer] [facility]. Body Location - Other. tooth-13. Device Status Text - [id number]. Hardware E.G. Pins/Screws/Kr s Hardware e.g. pins/screws /rods Mouth Screw Rst Curly Taper Rp 4.3x13.0 - Anne [id number] Implanted:Qty: 1 on 07/03/2007 Hardware e.g. pins/screws /rods Tooth [employer] Description:Device Manufactu rer - [employer]. Body Location - Tooth 5. Device Status Text - [id number]. Abutment Nobrpl Epic Beacon Analyst 3.5x5 - Anne [id number] Implanted:Qty: 1 on 03/03/2012 Hardware e.g. pins/screws /rods Tooth [employer] Description:Device Manufactu rer - [employer]. Body Location - Tooth 29. Device Status Text - [id number]. Screw Nobrpl Curly Taper Epic Beacon Analyst 3.5x13.0 - Anne [id number] Implanted:Qty: 1 on 08/23/2014 Hardware e.g. pins/screws /rods Tooth [employer] Description:Device Manufactu rer - [employer]. Body Location - Other. tooth- 28. Device Status Text - [id number]. Screw Nobrpl Curly Taper Rp 4.3x10.0 - Anne [id number] Implanted:Qty: 1 on 08/10/2015 Hardware e.g. pins/screws /rods Tooth [employer] Description:Device Manufactu rer - [employer]. Body Location - Other. tooth- 20. Device Status Text - [id number]. Abutment Nobrpl Rp 4.3x3 - Anne [id number] Implanted:Qty: 1 on 02/08/2016 Hardware e.g. pins/screws /rods Tooth [employer] Description:Device Manufactu rer - [employer]. Body Location - Other. tooth- 11. Device Status Text - [id number]. Patch Dura-Guard 4x 4 - Anne [id number] Implanted:Qty: 1 on 08/19/1996 Mesh or Patch [employer] Description:Device Manufactu rer - [employer]. Device Status Text - [id number]. Allograft Bioxclude Chorion 1cm X 2.5cm - Anne [id number] Implanted:Qty: 1 on 01/15/2014 Mesh or Patch Tooth Unknown Description:Device Manufactu rer - Unknown. Body Location - tooth-5. Device Status Text - [id number]. Allograft Bioxclude Chorion 1.5cm X 2cm - Anne [id number] Implanted:Qty: 1 on 08/10/2015 Mesh or Patch Other/Legacy - See Implant Description Unknown Description:Device Manufactu rer - Unknown. Body Location - Other. Left. Device Status Text - [id number]. Procedures Procedure Name Priority Date/Time Associated Diagnosis Comments INR REFLEX, POCT, B Routine 06/04/2023 1:50 PM MANAGER FIELD INVESTIGATIONS Anticoagulant Therapy [Z79.01] Mutation Factor V Leiden Heterozygous (HCC) Monitoring For Therapeutic Drug Therapy [Z51.81] Thrombosis Deep Vein Personal History INR REFLEX, POCT, B Routine 05/17/2023 7:29 AM MANAGER FIELD INVESTIGATIONS Anticoagulant Therapy [Z79.01] Mutation Factor V Leiden Heterozygous (HCC) Monitoring For Therapeutic Drug Therapy [Z51.81] Thrombosis Deep Vein Personal History LIPID PANEL, S Routine 04/19/2023 7:39 AM MANAGER FIELD INVESTIGATIONS Hyperlipidemia BASIC METABOLIC PANEL, S/P Routine 04/19/2023 7:39 AM MANAGER FIELD INVESTIGATIONS Hypertension Essential Primary INR REFLEX, POCT, B Routine 04/19/2023 7:38 AM MANAGER FIELD INVESTIGATIONS INR REFLEX, POCT, B Routine 03/14/2023 7:51 AM CDT Anticoagulant Therapy [Z79.01] Mutation Factor V Leiden Heterozygous (HCC) Monitoring For Therapeutic Drug Therapy [Z51.81] Thrombosis Deep Vein Personal History from Last 3 Months Results * INR Reflex, POCT, Blood (06/04/2023 1:50 PM MANAGER FIELD INVESTIGATIONS) Only the most recent of4 resultswithin the time period is included. INR Reflex, POCT, B 2.0 06/04/2023 1:50 PM MANAGER FIELD INVESTIGATIONS CNFL Comment: ----ADDITIONAL INFORMATION---- Standard intensity warfarin therapeutic range: 2.0 to 3.0 ?? High intensity warfarin therapeutic range: 2.5 to 3.5 Blood (Blood, Capillary) 06/04/2023 1:50 PM MANAGER FIELD INVESTIGATIONS 06/04/2023 1:50 PM MANAGER FIELD INVESTIGATIONS Stefan Salomon M.D. LAB POCT ORDERABLES - DEVICE Performing Organization Address City/State/[facility] Co de Phone Number [facility] [address] [place] [phone], [facility] in [address] [address] * Lipid Panel (04/19/2023 7:39 AM MANAGER FIELD INVESTIGATIONS) Triglycerides 113 mg/dL 04/19/2023 11:48 AM MANAGER FIELD INVESTIGATIONS CNFL Comment: ----REFERENCE VALUE---- Normal: <150 mg/dL Borderline High: 150-199 mg/dL High: 200-499 mg/dL Very High: > or =500 mg/dL Cholesterol, Total 144 mg/dL 2022 11:48 AM MANAGER FIELD INVESTIGATIONS CNFL Comment: ----REFERENCE VALUE---- Desirable: < 200 mg/dL Borderline High: 200 - 239 mg/dL High: > or = 240 mg/dL Cholesterol, LDL, Calculated 76 mg/dL 04/19/2023 12:10 PM MANAGER FIELD INVESTIGATIONS CNFL Comment: ----REFERENCE VALUE---- Desirable: <100 mg/dL Above Desirable: 100-129 mg/dL Borderline High: 130-159 mg/dL High: 160-189 mg/dL Very High: >=190 mg/dL ----ADDITIONAL INFORMATION---- LDL cholesterol calculated using the Sosa/NIH equation. Cholesterol, HDL 48 >=40 mg/dL 04/19/20 12:10 PM MANAGER FIELD INVESTIGATIONS CNFL Cholesterol, Non-HDL, Calculated 96 mg/dL 04/19/2023 12:10 PM MANAGER FIELD INVESTIGATIONS CNFL Comment: ----REFERENCE VALUE---- Desirable: <130 mg/dL Above Desirable: 130-159 mg/dL Borderline High: 160-189 mg/dL High: 190-219 mg/dL Very High: > or =220 mg/dL Fasting (8 HR or more) No 04/19/2023 7:40 AM MANAGER FIELD INVESTIGATIONS CNFL Blood (Blood, Venous) 04/19/2023 7:39 AM MANAGER FIELD INVESTIGATIONS 04/19/2023 7:40 AM MANAGER FIELD INVESTIGATIONS Stefan Salomon M.D. LAB BLOOD ADD-ON Performing Organization Address City/State/[facility] Co de Phone Number [facility] [address] [place] [phone], [facility] [address] [address] * Basic Metabolic Panel (04/19/2023 7:39 AM MANAGER FIELD INVESTIGATIONS) Potassium, P 4.1 3.6 - 5.2 mmol/L 04/19/2023 11:48 AM MANAGER FIELD INVESTIGATIONS CNFL Sodium, P 138 135 - 145 mmol/L 04/19/2023 11:48 AM MANAGER FIELD INVESTIGATIONS CNFL Chloride, P 102 98 - 107 mmol/L 04/19/2023 11:48 AM MANAGER FIELD INVESTIGATIONS CNFL Bicarbonate, P 23 22 - 29 mmol/L 04/19/2023 11:48 AM MANAGER FIELD INVESTIGATIONS CNFL Anion Gap, P 13 7 - 15 04/19/2023 11:48 AM MANAGER FIELD INVESTIGATIONS CNFL BUN (Blood Urea Nitrogen), P 21 8 - 24 mg/dL 04/19/2023 11:48 AM MANAGER FIELD INVESTIGATIONS CNFL Creatinine 0.87 0.74 - 1.35 mg/dL 04/19/2023 11:48 AM MANAGER FIELD INVESTIGATIONS CNFL Estimated GFR (eGFR) >90 >=60 mL/min/BSA 04/19/2023 11:48 AM MANAGER FIELD INVESTIGATIONS CNFL Comment: Estimated GFR calculated using the 2020 CKD_EPI creatinine equation. Calcium, Total, P 9.1 8.8 - 10.2 mg/dL 04/19/2023 11:48 AM MANAGER FIELD INVESTIGATIONS CNFL Glucose, P 103 70 - 140 mg/dL 04/19/2023 11:48 AM MANAGER FIELD INVESTIGATIONS CNFL Blood (Blood, Venous) 04/19/2023 7:39 AM MANAGER FIELD INVESTIGATIONS 04/19/2023 7:40 AM MANAGER FIELD INVESTIGATIONS Stefan Salomon M.D. LAB BLOOD ADD-ON [facility] [address] [place] [id number], [facility] CNFL [facility] in [address] [address] from Last 3 Months Care Teams Recreational Facilities Motel Manager Relationship Specialty Start Date End Date Stefan Salomon M.D. [address] [place] [phone] PCP - General Family Medicine 07/09/22 Anticoagulation Team 07/09/22
--- OUTSIDE RECORDS SUMMARY | 2023-06-11 08:04 | XMS_ITS | Encounter Summary ---
Author Name Unknown Organization [facility] Address [address] [place] [address] Care Team Providers Care Visual Developer Name Role Phone Stefan Salomon M.D. Primary Care Provider [phone] Encounter Details Date Type Department Care Team (Latest Contact Info) Description 05/17/2023 7:20 AM PLASTER CASTER - 05/17/2023 11:59 PM PLASTER CASTER Hospital Encounter Department of Laboratory Medicine in [address] [phone] Stefan Salomon M.D. [address] [place] [phone] Anticoagulant Therapy [Z79.01]; Mutation Factor V Leiden Heterozygous (HCC); Monitoring For Therapeutic Drug Therapy [Z51.81]; Thrombosis Deep Vein Personal History Discharge Disposition: Home or Self Care Social History Tobacco Use Types Packs/Day Years Used Date Smoking Tobacco: Former Cigarettes 0 Smokeless Tobacco: Never Alcohol Use Standard Drinks/Week Comments Not Currently [...] week 07/09/2022 How often do you attend buddhism or yazidism serv ices? Never 07/09/2022 Do you belong to any clubs o r organizations such as buddhism groups, unions, fraternal or athletic groups, or [...] Answer Date Recorded PHQ-2 Score 0 07/09/2022 [facility] of Occupat ional Health - Occupational Stress Questionnaire Answer Date Recorded [...] place to sleep or slept in a mcc (including now)? No 07/09/2022 Depression Answer Date [...] file Gender Identity Male 07/02/2017 9:12 AM PLASTER CASTER Sexual Orientation Straight 07/02/2017 9: 12 AM PLASTER CASTER documented as of this encounter Medications at Time of Discharge Medication Sig Dispensed Refills Start Date End Date acetaminophen (TYLENOL) 500 mg capsule Take 500 mg by mouth every 6 (six) hours as needed for pain. Takes 4,000 mg usually each day 0 amLODIPine (NORVASC) 10 mg tablet TAKE ONE TABLET BY MOUTH EVERY DAY 90 tablet 3 03/20/2023 fluocinonide (LIDEX) 0.05 % cream Apply twice daily to areas of rash/itch/irritation as needed. DO NOT use on face or skin folds 120 g 2 06/13/2021 fluorouraciL (EFUDEX) 5 % cream Apply 1 application. topically 2 (two) times a day. Apply to scalp for 2-3 weeks. 40 g 0 07/27/2022 gabapentin (NEURONTIN) 300 mg capsuleIndications: Insufficiency Venous,Chronic Pain Syndrome,Pain Limb Generalized,Pain Leg Bilateral,Pseudogou t Take 2 capsules (600 mg total) by mouth 3 (three) times a day. 540 capsule 3 02/25/2023 hydrocortisone (HYTONE) 2.5 % cream Apply to rash/itch/irritation involving the face and skin folds twice daily as needed 30 g 2 06/13/2021 losartan (COZAAR) 50 mg tablet Take 1 tablet (50 mg total) by mouth daily. 90 tablet 3 08/01/2022 08/01/2023 polyethylene glycol-electrolytes (GoLYTELY) 236-22.74-6.74 -5.86 gram solution Drink 1st portion of prep at 6 PM the evening before. 2nd portion must be started 3 hours before and finished 2 hours prior to report time 4000 mL 0 08/01/2022 triamcinolone (KENALOG) 0.1 % cream Apply to rash/itch/irritation involving the trunk and extremities twice daily as needed. DO NOT use on face or skin folds. 454 g 1 06/05/2022 warfarin (COUMADIN) 5 mg tabletIndications:A nticoagulant Therapy,Mutation Factor V Leiden Heterozygous (HCC),Monitoring For Therapeutic Drug Therapy,Thrombosis Deep Vein Personal History Please take as directed by your Anticoagulation Clinic. 130 tablet 3 10/18/2022 zolpidem (AMBIEN) 5 mg tablet TAKE ONE TABLET BY MOUTH AT BEDTIME NEEDED FOR SLEEP 30 tablet 0 09/13/2022 traMADoL (ULTRAM) 50 mg tabletIndications:C hronic Pain/Nonacute Pain Take 1-2 tablets (50-100 mg total) by mouth every 6 (six) hours as needed for pain Indications: Chronic Pain/Nonacute Pain. 240 tablet 0 05/03/2023 06/01/2023 documented as of this encounter Plan of Treatment Upcoming Encounters Date Type Department Care Team (Latest Contact Info) Description 06/12/2023 4:15 PM PLASTER CASTER Office Visit Department of Family Medicine, [facility], in [address] [phone] Stefan Salomon M.D. [address] [place] [phone] Discharge Disposition: Home or Self Care 06/21/2023 8:50 AM PLASTER CASTER Appointment Department of Laboratory Medicine in [address] [phone] Stefan Salomon M.D. [address] [place] [phone] 06/21/2023 9:30 AM PLASTER CASTER Anticoagulation Visit Department of Anticoagulation in [place] [address] [place] [address] Stefan Salomon M.D. [address] [place] [phone] documented as of this encounter Procedures Procedure Name Priority Date/Time Associated Diagnosis Comments INR REFLEX, POCT, B Routine 05/17/2023 7:29 AM PLASTER CASTER Anticoagulant Therapy [Z79.01] Mutation Factor V Leiden Heterozygous (HCC) Monitoring For Therapeutic Drug Therapy [Z51.81] Thrombosis Deep Vein Personal History documented in this encounter Results * INR Reflex, POCT, Blood (05/17/2023 7:29 AM PLASTER CASTER) INR Reflex, POCT, B 2.1 05/17/2023 7:29 AM PLASTER CASTER CNFL Comment: ----ADDITIONAL INFORMATION---- Standard intensity warfarin therapeutic range: 2.0 to 3.0 ?? High intensity warfarin therapeutic range: 2.5 to 3.5 Blood (Blood, Capillary) 05/17/2023 7:29 AM PLASTER CASTER 05/17/2023 7:29 AM PLASTER CASTER Stefan Salomon M.D. LAB POCT ORDERABLES - DEVICE [facility] [address] [place] [id number], [facility] CNFL [facility] in [address] [address] documented in this encounter Visit Diagnoses Diagnosis Anticoagulant Therapy [Z79.01] Mutation Factor V Leiden Heterozygous (HCC) Monitoring For Therapeutic Drug Therapy [Z51.81] Thrombosis Deep Vein Personal History documented in this encounter Additional Health Concerns Assessment Noted Time PHQ-9 Depression Total Score: 0 07/09/19 23 8:29 AM PLASTER CASTER documented as of this encounter Care Teams Visual Developer Relationship Specialty Start Date End Date Stefan Salomon M.D. [address] [place] [phone] PCP - General Family Medicine 07/09/22 Anticoagulation Team 07/09/22 documented as of this encounter
--- OUTSIDE RECORDS SUMMARY | 2023-06-11 08:04 | XMS_ITS | Encounter Summary ---
Author Name Unknown Organization [facility] Address [address] [place] [address] Care Team Providers Care Financial Services Officer Name Role Phone Stefan Salomon M.D. Primary Care Provider [phone] Reason for Visit * Outpatient (Routine) - Authorized Specialty Diagnoses / Procedures Referred By Contdayana t Referred To Contact Anticoagulation Diagnoses Anticoagulant Therapy Mutation Factor V Leiden Heterozygous (HCC) Monitoring For Therapeutic Drug Therapy Thrombosis Deep Vein Personal History Stefan Salomon M.D. [address] [phone] [facility] Referral ID Status Reason Start Date Expiration Date V isits Requested Visits Authorized [id number] Authorized 02/01/2023 01/31/2026 300 300 Encounter Details Date Type Department Care Team (Latest Contact Info) Description 06/05/2023 8:00 AM ASTHMA EDUCATOR Anticoagulation Visit Department of Anticoagulation in [place], [place] [address] [place] [phone] Stefan Salomon M.D. [address] [place] [phone] Anticoagulant Therapy [Z79.01] (Primary Dx); Mutation Factor V Leiden Heterozygous (HCC); Monitoring For Therapeutic Drug Therapy [Z51.81]; Thrombosis Deep Vein Personal History Social History Tobacco Use Types Packs/Day Years [...] week 07/09/2022 How often do you attend moravian or roman catholic serv ices? Never 07/09/2022 Do you belong to any clubs o r organizations such as moravian groups, unions, fraternal or athletic groups, or [...] Answer Date Recorded PHQ-2 Score 0 07/09/2022 [facility] [place] of Occupat ional Health - Occupational Stress [...] place to sleep or slept in a jail (including now)? No 07/09/2022 Depression Answer Date [...] file Gender Identity Male 07/02/2017 9:12 AM ASTHMA EDUCATOR Sexual Orientation Straight 07/02/2017 9: 12 AM ASTHMA EDUCATOR documented as of this encounter Patient Instructions * Patient Instructions* Joi David RKimberly. - 06/05/2023 8:00 AM ASTHMA EDUCATOR Your next INR will be 06/21/23. You will need to call the Anticoagulation Program for warfarin dosing at the scheduled time for your nurse visit, as indicated on your Patient Appointment Guide (PAG). To reschedule your appointment or for questions about your warfarin, please call Primary Care Anticoagulation Program at [phone] from 7:30 am to 4:30 pm. Saturday-Saturday . When To Contact Your Health Care Provider If you are experiencing any of the following symptoms, Call 911 or go to the emergency room: chest pain, shortness of breath, vomiting or coughing up blood, large amounts of rectal bleeding, symptomsof a stroke- sudden weakness or inability to move a body part (the face, arm or leg), difficulty speaking or trouble understanding others, sudden blurred, decreased vision, or double vision, dizziness, loss of balance /coordination or a sudden, severe headache. If you fall and or hit your head or suffer a blow to the head, seek emergency treatment. Contact your health care provider about your Warfarin dose: Before any surgical procedures (including tooth extractions) and certain non- surgical procedures (for example, colonoscopies). When you are sick with a fever or develop persistent diarrhea or vomiting. If you doubt that you took your Warfarin as directed. If you start an antibiotic or any prescription drug or if you start any herbal or other gjaq-vjl-onkxgrn product (check with your doctor, a nurse, or pharmacist). If you change your diet significantly. If you decide to stop or start using tobacco or alcohol. If you notice unusual bruising or bleeding. If you notice dark, tarry, or bright red stools or blood in your urine. If you have a painful and swollen calf. MA EDUCATOR documented in this encounter Progress Notes * Joi David RKimberly. - 06/05/2023 8:00 AM CST Warfarin Maintenance Nursing Protocol Goal Range 2.0-3.0 (version approved 07/2021) Visit Type: Telephone Primary reason for visit: Routine f/u OR f/u per previous visit recommendations Information provided by:patient INR result: 2.0 Goal range: 2.0-3.0 Inclusion Criteria: All inclusion criteria met. Proceeded to exclusion criteria. Exclusion Criteria: Section 1: No Section 1 exclusion criteria, proceeded to Section 2. Section 2: No Section 2 exclusion criteria, proceeded to screening criteria. Screening Criteria: Patient has started, stopped, or has had a dose adjustment of medication: yes. Since last INR check. Medication: Ciprofloxacin was stopped on 06/03/23. Medication listed on Appendix A, continued with Appendix A for dosing and follow-up. Additional Info: Pt stated he stopped antibiotic D/T itching, restless legs and insomnia. PCP advise him to discontinue antibiotic. Seeing wound clinic again today and will notify [facility]CO if started on a different med. Pt also request increase in Warfarin dose as it makes him nervous to be on the low end of his INR range. Previous INR was therapeutic. Today???s INR is Therapeutic. Dosing and follow up recommendation: Protocol dosing range for INR 2.0-3.0: No change in weekly dose. Currently bridging? no. Next INR in twice the amount of time since last INR (max duration is 4-6 weeks): 4 weeks. Additional dosing or follow-up information: Protocol completed. Per nursing judgment, provider consulted. Dosing per tracker. Next INR in 17 days per consult with Anticoagulation [facility]. Provider consulted: Alfonso Nash- Anticoagulation [facility] Pt is on injectable anticoagulant: No. Plan used: Consult. See Anticoagulation Track Calendar for dosing and plan details. Anticoagulation Visit Summary: Patient repeats back dosing instructions, date of next INR, and has no further questions at this time. Total time spent with patient: N/A MA EDUCATOR documented in this encounter Plan of Treatment Upcoming Encounters Date Type Department Care Team (Latest Contact Info) Description 06/12/2023 4:15 PM ASTHMA EDUCATOR Office Visit Department of Family Medicine, [facility], in [address] [phone] Stefan Salomon M.D. [address] [place] [phone] Discharge Disposition: Home or Self Care 06/21/2023 8:50 AM ASTHMA EDUCATOR Appointment Department of Laboratory Medicine in [address] [phone] Stefan Salomon M.D. [address] [place] [phone] 06/21/2023 9:30 AM ASTHMA EDUCATOR Anticoagulation Visit Department of Anticoagulation in [address] [phone] Stefan Salomon M.D. [address] [place] [phone] Scheduled Orders Name Type Priority Associated Diagnoses Orde r Schedule INR Reflex, POCT, Blood Point of Care Testing-Docked Device Routine Anticoagulant Therapy [Z79.01] Mutation Factor V Leiden Heterozygous (HCC) Monitoring For Therapeutic Drug Therapy [Z51.81] Thrombosis Deep Vein Personal History Expected: 06/21/2023, Expires: 09/03/2024 documented as of this encounter Visit Diagnoses Diagnosis Anticoagulant Therapy [Z79.01]- Primary Mutation Factor V Leiden Heterozygous (HCC) Monitoring For Therapeutic Drug Therapy [Z51.81] Thrombosis Deep Vein Personal History documented in this encounter Additional Health Concerns Assessment Noted Time PHQ-9 Depression Total Score: 0 07/09/19 8:29 AM ASTHMA EDUCATOR documented as of this encounter Care Teams Financial Services Officer Relationship Specialty Start Date End Date Stefan Salomon M.D. [address] [phone] PCP - General Family Medicine 07/09/22 Anticoagulation Team 07/09/22 documented as of this encounter
--- OUTSIDE RECORDS SUMMARY | 2023-06-11 08:04 | XMS_ITS | Encounter Summary ---
Author Name Unknown Organization [facility] Address [address] [place] [address] Care Team Providers Care Web Production Designer Name Role Phone Stefan Salomon M.D. Primary Care Provider [phone] Reason for Visit * Outpatient (Routine) - Closed Specialty Diagnoses / Procedures Referred By Contac t Referred To Contact Anticoagulation Stefan Salomon M.D. [address] [place] [phone] [facility] Referral ID Status Reason Start Date Expiration Date Visits Re quested Visits Authorized [id number] Closed 04/19/2023 04/18/2026 1 1 Encounter Details Date Type Department Care Team (Latest Contact Info) Description 04/22/2023 8:00 AM HAND MOUNTER Anticoagulation Visit Department of Anticoagulation in [place], [place] [address] [place] [address] Stefan Salomon M.D. [address] [place] [phone] Anticoagulant Therapy [Z79.01] (Primary Dx); Mutation [...] week 07/09/2022 How often do you attend mosque or yazidi serv ices? Never 07/09/2022 Do you belong to any clubs o r organizations such as mosque groups, unions, fraternal or athletic groups, or [...] Answer Date Recorded PHQ-2 Score 0 07/09/2022 [facility] of Occupat ional Health - Occupational Stress [...] place to sleep or slept in a prison (including now)? No 07/09/2022 Depression Answer Date [...] file Gender Identity Male 07/02/2017 9:12 AM HAND MOUNTER Sexual Orientation Straight 07/02/2017 9: 12 AM HAND MOUNTER documented as of this encounter Patient Instructions * Patient Instructions* Christen Alexander R.N. - 04/22/2023 8:00 AM HAND MOUNTER Your next INR will be 05/17/23. You will need to call the Anticoagulation Program for warfarin dosing at the scheduled time for your nurse visit, as indicated on your Patient Appointment Guide (PAG). To reschedule your appointment or for questions about your warfarin, please call Primary Care Anticoagulation Program at [phone] from 7:30 am to 4:30 pm. Saturday-Saturday [...] if you start any herbal or other ppqa-zcq-recrjdx product (check with your doctor, a nurse, or pharmacist). If you change your diet significantly. If you decide to stop or start using tobacco or alcohol. If you notice unusual bruising or bleeding. If you notice dark, tarry, or bright red stools or blood in your urine. If you have a painful and swollen calf. MOUNTER documented in this encounter Progress Notes * Christen Alexander R.N. - 04/22/2023 8:00 AM CST Warfarin Maintenance Nursing Protocol Goal Range 2.0-3.0 (version approved 07/2021) Visit Type: Telephone Primary reason for visit: Routine f/u OR f/u per previous visit recommendations Information provided by:patient INR result: 2.1 on 04/19/23 Goal range: 2.0-3.0 Inclusion Criteria: All inclusion criteria met. Proceeded to exclusion criteria. Exclusion Criteria: Section 1: No Section 1 exclusion criteria, proceeded to Section 2. Section 2: INR collection date and time greater than 72 hours old. Protocol does not apply. Provider input required. Screening Criteria: All screening criteria negative. Testing interval extension evaluation: INR in range today? Yes. Patient does NOT have a newly diagnosed venous thromboembolism (VTE) within the last 3 months, a mechanical heart valve, history of arterial embolism (eg thrombosis superior mesenteric artery, embolism thrombosis lower extremity artery, occlusion arterial personal history), history of intracardiac thrombus (LA or LV apical), antiphospholipid syndrome (lupus anticoagulant syndrome), or a history of stroke/TIA with OR without diagnosis of atrial fibrillation (AF)/atrial flutter. Patient does NOT have atrial fibrillation/flutter, therefore no CHADS2 score calculated. Proceeded to maintenance warfarin dosing and follow-up, but offered patient return for follow-up INR in 8 weeks as 3 consecutive outpatient INRs within range. Additional Info: None Previous INR was therapeutic. Today???s INR is Therapeutic. Dosing and follow up recommendation: Protocol does not apply based on positive exclusion criteria indicated above stating consult required. Consulted Anticoagulation [facility] for plan. Currently bridging: no. INR is therapeutic/supratherapeutic. Additional dosing or follow-up information: Provider consulted: Verenice Zamora- Anticoagulation [facility] Pt is on injectable anticoagulant: No. Plan used: Consult. See Anticoagulation Track Calendar for dosing and plan details. Anticoagulation Visit Summary: Patient repeats back dosing instructions, date of next INR, and has no further questions at this time. Total time spent with patient: 14 minutes MOUNTER documented in this encounter Plan of Treatment Upcoming Encounters Date Type Department Care Team (Latest Contact Info) Description 06/12/2023 4:15 PM HAND MOUNTER Office Visit Department of Family Medicine, [facility], in [address] [phone] Stefan Salomon M.D. [address] [place] [phone] Discharge Disposition: Home or Self Care 06/21/2023 8:50 AM HAND MOUNTER Appointment Department of Laboratory Medicine in [address] [phone] Stefan Salomon M.D. [address] [place] [phone] 06/21/2023 9:30 AM HAND MOUNTER Anticoagulation Visit Department of Anticoagulation in [address] [phone] Stefan Salomon M.D. [address] [place] [phone] documented as of this encounter Results * INR Reflex, POCT, Blood (05/17/2023 7:29 AM HAND MOUNTER) INR Reflex, POCT, B 2.1 05/17/2023 7:29 AM HAND MOUNTER CNFL Comment: ----ADDITIONAL INFORMATION---- Standard intensity warfarin therapeutic range: 2.0 to 3.0 ?? High intensity warfarin therapeutic range: 2.5 to 3.5 Blood (Blood, Capillary) 05/17/2023 7:29 AM HAND MOUNTER 05/17/2023 7:29 AM HAND MOUNTER Stefan Salomon M.D. LAB POCT ORDERABLES - DEVICE [facility] [address] [place] [phone], [facility] CNFL [facility] in [address] [phone] documented in this encounter Visit Diagnoses Diagnosis Anticoagulant Therapy [Z79.01]- Primary Mutation Factor V Leiden Heterozygous (HCC) Monitoring For Therapeutic Drug Therapy [Z51.81] Thrombosis Deep Vein Personal History documented in this encounter Additional Health Concerns Assessment Noted Time PHQ-9 Depression Total Score: 0 07/09/19 23 8:29 AM HAND MOUNTER documented as of this encounter Care Teams Web Production Designer Relationship Specialty Start Date End Date Stefan Salomon M.D. [address] [place] [phone] PCP - General Family Medicine 07/09/22 Anticoagulation Team 07/09/22 documented as of this encounter
--- OUTSIDE RECORDS SUMMARY | 2023-06-11 08:04 | XMS_ITS | Encounter Summary ---
Author Name Unknown Organization [facility] Address [address] [place] [address] Care Team Providers Care Float Remover Name Role Phone Stefan Salomon M.D. Primary Care Provider [phone] Encounter Details Date Type Department Care Team (Latest Contact Info) Description 04/19/2023 9:02 AM CASHIER WRAPPER - 04/19/2023 11:59 PM [facility] Hospital Encounter Department of Laboratory Medicine in [address] [phone] Stefan Salomon M.D. [address] [place] [phone] Discharge Disposition: Home or Self Care Social [...] week 07/09/2022 How often do you attend judaism or scientologist serv ices? Never 07/09/2022 Do you belong to any clubs o r organizations such as judaism groups, unions, fraternal or athletic groups, or [...] Answer Date Recorded PHQ-2 Score 0 07/09/2022 [facility] of Occupat ional Health - Occupational Stress [...] place to sleep or slept in a longterm (including now)? No 07/09/2022 Depression Answer Date [...] file Gender Identity Male 07/02/2017 9:12 AM CASHIER WRAPPER Sexual Orientation Straight 07/02/2017 9: 12 AM CASHIER WRAPPER documented as of this encounter Medications at [...] Indications: Chronic Pain/Nonacute Pain. 240 tablet 0 04/03/2023 05/02/2023 documented as of this encounter Plan of Treatment Upcoming Encounters Date Type Department Care Team (Latest Contact Info) Description 06/12/2023 4:15 PM CASHIER WRAPPER Office Visit Department of Family Medicine, [facility], in [address] [phone] Stefan Salomon M.D. [address] [place] [phone] Discharge Disposition: Home or Self Care 06/21/2023 8:50 AM CASHIER WRAPPER Appointment Department of Laboratory Medicine in [address] [phone] Stefan Salomon M.D. [address] [place] [phone] 06/21/2023 9:30 AM CASHIER WRAPPER Anticoagulation Visit Department of Anticoagulation in [place] [address] [place] [address] Stefan Salomon M.D. [address] [place] [address] [phone] documented as of this encounter Procedures Procedure Name Priority Date/Time Associated Diagnosis Comments INR REFLEX, POCT, B Routine 04/19/2023 7 :38 AM CASHIER WRAPPER documented in this encounter Results * INR Reflex, POCT, Blood (04/19/2023 7:38 AM CASHIER WRAPPER) INR Reflex, POCT, B 2.1 04/19/2023 7:38 AM CASHIER WRAPPER [place] Comment: ----ADDITIONAL INFORMATION---- Standard intensity warfarin therapeutic range: 2.0 to 3.0 ?? High intensity warfarin therapeutic range: 2.5 to 3.5 Blood 04/19/2023 7:38 AM CASHIER WRAPPER 04/19/2023 7:40 AM CASHIER WRAPPER Stefan Salomon M.D. LAB POCT ORDERABLES - DEVICE [facility] [address] [place] [address], [facility] CNFL [facility] in [address] [address] documented in this encounter Visit Diagnoses Not on filedocumented in this encounter Additional Health Concerns Assessment Noted Time PHQ-9 Depression Total Score: 0 07/09/19 23 8:29 AM CASHIER WRAPPER documented as of this encounter Care Teams Float Remover Relationship Specialty Start Date End Date Stefan Salomon M.D. [id number] [phone] PCP - General Family Medicine 07/09/22 Anticoagulation Team 07/09/22 documented as of this encounter
--- OUTSIDE RECORDS SUMMARY | 2023-06-11 08:04 | XMS_ITS | Referral Summary ---
Author Name Unknown Organization [facility] Address [address] [place] [address] Care Team Providers Care Family Counselor Name Role Phone Stefan Salomon M.D. Primary Care Provider [phone] Source Comments Patient records contain information from all sites at [facility]. For routine questions regarding patient records, call [phone] during business hours, M-F 8:00 AM - 5:00 PM Central Time. Record requests for emergency care only can be directed to [phone] at any time.[facility] Encounters Date Type Department Care Team Description 06/05/2023 8:00 AM HAND OUTSIDE CUTTER Anticoagulation Visit Department of Anticoagulation in [place], [place] [address] [place] [address] Stefan Salomon M.D. Anticoagulant Therapy [Z79.01] (Primary Dx); Mutation Factor V Leiden Heterozygous (HCC); Monitoring For Therapeutic Drug Therapy [Z51.81]; Thrombosis Deep Vein Personal History 06/04/2023 1:46 PM HAND OUTSIDE CUTTER - 06/04/2023 11:59 PM [facility] Hospital Encounter Department of Laboratory Medicine in [address] [phone] Stefan Salomon M.D. Anticoagulant Therapy [Z79.01]; Mutation Factor V Leiden Heterozygous (HCC); Monitoring For Therapeutic Drug Therapy [Z51.81]; Thrombosis Deep Vein Personal History Discharge Disposition: Home or Self Care 06/01/2023 Refill Department of Family Medicine, [facility], in [address] [phone] Stefan Salomon M.D. Med Refill 05/31/2023 Clinical Communication Department of Family Medicine, [facility], in [address] [phone] Stefan Salomon M.D. 05/17/2023 7:20 AM HAND OUTSIDE CUTTER - 05/17/2023 11:59 PM HAND OUTSIDE CUTTER Hospital Encounter Department of Laboratory Medicine in [address] [phone] Stefan Salomon M.D. Anticoagulant Therapy [Z79.01]; Mutation Factor V Leiden Heterozygous (HCC); Monitoring For Therapeutic Drug Therapy [Z51.81]; Thrombosis Deep Vein Personal History Discharge Disposition: Home or Self Care 05/17/2023 10:00 AM HAND OUTSIDE CUTTER Anticoagulation Visit Department of Anticoagulation in [address] [phone] Stefan Salomon M.D. Anticoagulant Therapy [Z79.01] (Primary Dx); Mutation Factor V Leiden Heterozygous (HCC); Monitoring For Therapeutic Drug Therapy [Z51.81]; Thrombosis Deep Vein Personal History; Hypertension Essential Primary; Hyperlipidemia; Manager Research And Development (Current) Anticoagulant Treatment 05/01/2023 Refill Department of Family Medicine, [facility], in [address] [phone] Stefan Salomon M.D. Med Refill 04/22/2023 8:00 AM HAND OUTSIDE CUTTER Anticoagulation Visit Department of Anticoagulation in [place], [place] [address] [place] [phone] Stefan Salomon M.D. Anticoagulant Therapy [Z79.01] (Primary Dx); Mutation Factor V Leiden Heterozygous (HCC); Monitoring For Therapeutic Drug Therapy [Z51.81]; Thrombosis Deep Vein Personal History 04/19/2023 Clinical Communication Department of Anticoagulation in [place], [place] [address] [place] [phone] Pippa Morales R.N. Anticoagulation (Unable to reach 04/19/23) 04/19/2023 9:02 AM HAND OUTSIDE CUTTER - 04/19/2023 11:59 PM HAND OUTSIDE CUTTER Hospital Encounter Department of Laboratory Medicine in [address] [phone] Stefan Salomon M.D. Discharge Disposition: Home or Self Care 04/19/2023 9:00 AM HAND OUTSIDE CUTTER Anticoagulation Visit Department of Anticoagulation in [place], [place] [address] [place] [phone] Stefan Salomon M.D. Anticoagulant Therapy [Z79.01]; Mutation Factor V Leiden Heterozygous (HCC); Monitoring For Therapeutic Drug Therapy [Z51.81]; Thrombosis Deep Vein Personal History 04/19/2023 7:33 AM HAND OUTSIDE CUTTER - 04/19/2023 9:01 AM HAND OUTSIDE CUTTER Hospital Encounter Department of Laboratory Medicine and Pathology, [facility] in [place], [place] [address] [place] [phone] Stefan Salomon M.D. Anticoagulant Therapy [Z79.01]; Mutation Factor V Leiden Heterozygous (HCC); Monitoring For Therapeutic Drug Therapy [Z51.81]; Thrombosis Deep Vein Personal History Discharge Disposition: Home or Self Care 04/19/2023 7:20 AM HAND OUTSIDE CUTTER - 04/19/2023 7:32 AM HAND OUTSIDE CUTTER Hospital Encounter Department of Laboratory Medicine in [address] [phone] Stefan Salomon M.D. Hypertension Essential Primary; Hyperlipidemia Discharge Disposition: Home or Self Care 04/02/2023 Refill Department of Family Medicine, [facility], in [address] [phone] Stefan Salomon M.D. Med Refill 03/20/2023 Refill Department of Family Medicine, [facility], in [address] [phone] Yue Alonso M.D. Med Refill 03/14/2023 9:30 AM CDT Anticoagulation Visit Department of Anticoagulation in [place], [place] [address] [place] [phone] Stefan Salomon M.D. Anticoagulant Therapy [Z79.01]; Mutation Factor V Leiden Heterozygous (HCC); Monitoring For Therapeutic Drug Therapy [Z51.81]; Thrombosis Deep Vein Personal History 03/14/2023 7:47 AM CDT - 03/14/2023 11:59 PM CDT Hospital Encounter Department of Laboratory Medicine in [address] [phone] Stefan Salomon M.D. Anticoagulant Therapy [Z79.01]; Mutation Factor V Leiden Heterozygous (HCC); Monitoring For Therapeutic Drug Therapy [Z51.81]; Thrombosis Deep Vein Personal History Discharge Disposition: Home or Self Care from Last 3 Months Allergies Active Allergy Reactions Criticality Noted Date Comments Atorvastatin Myalgia 02/08/2017 Leg Pain/Cramps Hvbzfwo-Xhu-Cmr Reductase Inhibitors Other (see comments) 09/10/2022 Medications [...] Limb Generalized 11/18/2011 Overview: Saw Neurologist at [facility] on 09/16/2009. 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 Never 07/09/2022 Do you belong to any clubs o r organizations such as yazidi groups, unions, fraternal or athletic groups, or [...] Answer Date Recorded PHQ-2 Score 0 07/09/2022 [facility] of Occupat ional Health - Occupational Stress [...] place to sleep or slept in a senior living (including now)? No 07/09/2022 Depression Answer Date [...] Gender Identity Male 07/02/2017 9:12 AM HAND OUTSIDE CUTTER Sexual Orientation Straight 07/02/2017 9: 12 AM HAND OUTSIDE CUTTER Last Filed Vital Signs Vital Sign Reading Time Taken Comments Blood Pressure 136/71 02/21/2023 3:10 PM CDT Pulse 69 02/21/2023 3:10 PM CDT Temperature 36.9 ??C (98.4 ??F) 02/21/2023 3:10 PM CD T Respiratory Rate 18 07/09/2022 7:27 AM HAND OUTSIDE CUTTER Oxygen Saturation 96% 02/21/2023 3:10 PM CDT Inhaled Oxygen Concentration - - Weight 90 kg (198 lb 6.6 oz) 02/21/2023 3:10 PM CDT Height 176.5 cm (5' 9.49) 08/01/2022 9:59 AM CS T Body Mass Index 28.89 08/01/2022 9:59 AM HAND OUTSIDE CUTTER Plan of Treatment Upcoming Encounters Date Type Department Care Team (Latest Contact Info) Description 06/12/2023 4:15 PM HAND OUTSIDE CUTTER Office Visit Department of Family Medicine, [facility], in [address] [phone] Stefan Salomon M.D. [address] [place] [phone] Discharge Disposition: Home or Self Care 06/21/2023 8:50 AM HAND OUTSIDE CUTTER Appointment Department of Laboratory Medicine in [address] [phone] Stefan Salomon M.D. [address] [place] [phone] 06/21/2023 9:30 AM HAND OUTSIDE CUTTER Anticoagulation Visit Department of Anticoagulation in [place] [address] [place] [address] Stefan Salomon M.D. [address] [place] [address] [phone] Medical Devices Implanted Type Area Hat Block Bench Hand Device Identifier Shelf Expiration Date Model / Serial / Lot Mineralized Cancellous Bone 2.0 - Anne [id number] Implanted:Qty: 1 on 08/10/2015 Bone or Tissue Tooth [employer] Health Description:Device Manufactu rer - [employer]. Body Location - Other. tooth-13. Device Status Text - [id number]. Hardware E.G. Pins/Screws/Rk s Hardware e.g. pins/screws /rods Mouth Screw Rst Curly Taper Rp 4.3x13.0 - Anne [id number] Implanted:Qty: 1 on 07/03/2007 Hardware e.g. pins/screws /rods Tooth [employer] Description:Device Manufactu rer - [employer]. Body Location - Tooth 5. Device Status Text - [id number]. Abutment Nobrpl Customs Entry Writer 3.5x5 - Anne [id number] Implanted:Qty: 1 on 03/03/2012 Hardware e.g. pins/screws /rods Tooth [employer] Description:Device Manufactu rer - [employer]. Body Location - Tooth 29. Device Status Text - [id number]. Screw Nobrpl Curly Taper Customs Entry Writer 3.5x13.0 - Anne [id number] Implanted:Qty: 1 on 08/23/2014 Hardware e.g. pins/screws /rods Tooth [employer] Description:Device Manufactu rer - [employer]. Body Location - Other. tooth- 28. Device Status Text - [id number]. Screw Nobrpl Curly Taper Rp 4.3x10.0 - Anne [id number] Implanted:Qty: 1 on 08/10/2015 Hardware e.g. pins/screws /rods Tooth [employer] Description:Device Manufactu rer - [employer]. Body Location - Other. tooth- 20. Device Status Text - [id number]. Abutment Nobrpl Rp 4.3x3 - Anne [id number] Implanted:Qty: 1 on 02/08/2016 Hardware e.g. pins/screws /rods Tooth [employer] Description:Device Manufactu rer - [employer]. Body Location - Other. tooth- 11. Device Status Text - [id number]. Patch Dura-Guard 4x 4 - Anne [id number] Implanted:Qty: 1 on 08/19/1996 Mesh or Patch [employer] Description:Device Manufactu rer - [employer]. Device Status Text - [id number]. Allograft Bioxclude Chorion 1cm X 2.5cm - Anne [id number] Implanted:Qty: 1 on 01/15/2014 Mesh or Patch Tooth Unknown Description:Device Manufactu rer - Unknown. Body Location - tooth-5. Device Status Text - [id number]. Allograft Bioxclude Chorion 1.5cm X 2cm - Anne [id number] Implanted:Qty: 1 on 08/10/2015 Mesh or Patch Other/Legacy - See Implant Description Unknown Description:Device Manufactu rer - Unknown. Body Location - Other. Left. Device Status Text - [id number]. Procedures Procedure Name Priority Date/Time Associated Diagnosis Comments INR REFLEX, POCT, B Routine 06/04/2023 1:50 PM HAND OUTSIDE CUTTER Anticoagulant Therapy [Z79.01] Mutation Factor V Leiden Heterozygous (HCC) Monitoring For Therapeutic Drug Therapy [Z51.81] Thrombosis Deep Vein Personal History INR REFLEX, POCT, B Routine 05/17/2023 7:29 AM HAND OUTSIDE CUTTER Anticoagulant Therapy [Z79.01] Mutation Factor V Leiden Heterozygous (HCC) Monitoring For Therapeutic Drug Therapy [Z51.81] Thrombosis Deep Vein Personal History LIPID PANEL, S Routine 04/19/2023 7:39 AM HAND OUTSIDE CUTTER Hyperlipidemia BASIC METABOLIC PANEL, S/P Routine 04/19/2023 7:39 AM HAND OUTSIDE CUTTER Hypertension Essential Primary INR REFLEX, POCT, B Routine 04/19/2023 7:38 AM HAND OUTSIDE CUTTER INR REFLEX, POCT, B Routine 03/14/2023 7:51 AM CDT Anticoagulant Therapy [Z79.01] Mutation Factor V Leiden Heterozygous (HCC) Monitoring For Therapeutic Drug Therapy [Z51.81] Thrombosis Deep Vein Personal History from Last 3 Months Results * INR Reflex, POCT, Blood (06/04/2023 1:50 PM HAND OUTSIDE CUTTER) Only the most recent of4 resultswithin the time period is included. INR Reflex, POCT, B 2.0 06/04/2023 1:50 PM HAND OUTSIDE CUTTER CNFL Comment: ----ADDITIONAL INFORMATION---- Standard intensity warfarin therapeutic range: 2.0 to 3.0 ?? High intensity warfarin therapeutic range: 2.5 to 3.5 Blood (Blood, Capillary) 06/04/2023 1:50 PM HAND OUTSIDE CUTTER 06/04/2023 1:50 PM HAND OUTSIDE CUTTER Stefan Salomon M.D. LAB POCT ORDERABLES - DEVICE [facility] [address] [place] [address], [facility] CNFL [facility] in [address] [address] * Lipid Panel (04/19/2023 7:39 AM HAND OUTSIDE CUTTER) Triglycerides 113 mg/dL 04/19/2023 11:48 AM HAND OUTSIDE CUTTER CNFL Comment: ----REFERENCE VALUE---- Normal: <150 mg/dL Borderline High: 150-199 mg/dL High: 200-499 mg/dL Very High: > or =500 mg/dL Cholesterol, Total 144 mg/dL 2022 11:48 AM HAND OUTSIDE CUTTER CNFL Comment: ----REFERENCE VALUE---- Desirable: < 200 mg/dL Borderline High: 200 - 239 mg/dL High: > or = 240 mg/dL Cholesterol, LDL, Calculated 76 mg/dL 04/19/2023 12:10 PM HAND OUTSIDE CUTTER CNFL Comment: ----REFERENCE VALUE---- Desirable: <100 mg/dL Above Desirable: 100-129 mg/dL Borderline High: 130-159 mg/dL High: 160-189 mg/dL Very High: >=190 mg/dL ----ADDITIONAL INFORMATION---- LDL cholesterol calculated using the Sosa/NIH equation. Cholesterol, HDL 48 >=40 mg/dL 04/19/20 12:10 PM HAND OUTSIDE CUTTER CNFL Cholesterol, Non-HDL, Calculated 96 mg/dL 04/19/2023 12:10 PM HAND OUTSIDE CUTTER CNFL Comment: ----REFERENCE VALUE---- Desirable: <130 mg/dL Above Desirable: 130-159 mg/dL Borderline High: 160-189 mg/dL High: 190-219 mg/dL Very High: > or =220 mg/dL Fasting (8 HR or more) No 04/19/2023 7:40 AM HAND OUTSIDE CUTTER CNFL Blood (Blood, Venous) 04/19/2023 7:39 AM HAND OUTSIDE CUTTER 04/19/2023 7:40 AM HAND OUTSIDE CUTTER Stefan Salomon M.D. LAB BLOOD ADD-ON [facility] [address] [place] [id number], [facility] CNFL [facility] in [address] [address] * Basic Metabolic Panel (04/19/2023 7:39 AM HAND OUTSIDE CUTTER) Potassium, P 4.1 3.6 - 5.2 mmol/L 04/19/2023 11:48 AM HAND OUTSIDE CUTTER CNFL Sodium, P 138 135 - 145 mmol/L 04/19/2023 11:48 AM HAND OUTSIDE CUTTER CNFL Chloride, P 102 98 - 107 mmol/L 04/19/2023 11:48 AM HAND OUTSIDE CUTTER CNFL Bicarbonate, P 23 22 - 29 mmol/L 04/19/2023 11:48 AM HAND OUTSIDE CUTTER CNFL Anion Gap, P 13 7 - 15 04/19/2023 11:48 AM HAND OUTSIDE CUTTER CNFL BUN (Blood Urea Nitrogen), P 21 8 - 24 mg/dL 04/19/2023 11:48 AM HAND OUTSIDE CUTTER CNFL Creatinine 0.87 0.74 - 1.35 mg/dL 04/19/2023 11:48 AM HAND OUTSIDE CUTTER CNFL Estimated GFR (eGFR) >90 >=60 mL/min/BSA 04/19/2023 11:48 AM HAND OUTSIDE CUTTER CNFL Comment: Estimated GFR calculated using the 2020 CKD_EPI creatinine equation. Calcium, Total, P 9.1 8.8 - 10.2 mg/dL 04/19/2023 11:48 AM HAND OUTSIDE CUTTER CNFL Glucose, P 103 70 - 140 mg/dL 04/19/2023 11:48 AM HAND OUTSIDE CUTTER CNFL Blood (Blood, Venous) 04/19/2023 7:39 AM HAND OUTSIDE CUTTER 04/19/2023 7:40 AM HAND OUTSIDE CUTTER Stefan Salomon M.D. LAB BLOOD ADD-ON [facility] [id number] [place] [id number], [facility] CNFL [facility] in [place] [id number] [place] [phone] from Last 3 Months Care Teams Family Counselor Relationship Specialty Start Date End Date Stefan Salomon M.D. [id number] [place] [phone] PCP - General Family Medicine 07/09/22 Anticoagulation Team 07/09/22
--- OUTSIDE RECORDS SUMMARY | 2023-06-11 08:04 | XMS_ITS | Encounter Summary ---
Author Name Unknown Organization [facility] Address [address] [place] [address] Care Team Providers Care Hospital Ward Clerk Name Role Phone Stefan Salomon M.D. Primary Care Provider [phone] Reason for Visit * Reason Comments Med Refill Encounter Details Date Type Department Care Team (Late st Contact Info) Description 06/01/2023 Refill Department of Family Medicine, [facility], in [address] [phone] Stefan Salomon M.D. [address] [place] [phone] Med Refill Social History Tobacco Use Types Packs/Day Years [...] week 07/09/2022 How often do you attend quaker or church serv ices? Never 07/09/2022 Do you belong to any clubs o r organizations such as quaker groups, unions, fraternal or athletic groups, or [...] Answer Date Recorded PHQ-2 Score 0 07/09/2022 [facility] of Occupat ional Health - Occupational [...] file Gender Identity Male 07/02/2017 9:12 AM STITCHING MACHINE FEEDER OR OFFBEARER Sexual Orientation Straight 07/02/2017 9: 12 AM STITCHING MACHINE FEEDER OR OFFBEARER documented as of this encounter Miscellaneous Notes * Telephone Encounter - Hoa Capone, L.P.N. - 06/04/2023 2:46 PM STITCHING MACHINE FEEDER OR OFFBEARER Controlled substance renewal for Tramadol 50 mg: ALERT NURSING CONCERN: Pt was prescribed Cipro and oxycodone at outside facility, patient had side effects and would like to go back to tramadol Renewal is pended per the controlled substance prescribing plan located in the controlled substancesynopsis Date last renewed (start date): 05/03/2023 Last provider visit: 02/21/2023 Last urine drug screen: 02/21/2023 ; Next due: 02/2024 Screenings due: PEG, DESMOND 7-nursing send in portal during wrap-up Next provider visit due: 08/2023 Chronic Opioid therapy agreement last reviewed/signed: 03/05/2022 This prescription may be filled on 06/04/2023, and next renewal may be on or after 07/04/2023 CHING MACHINE FEEDER OR OFFBEARER documented in this encounter Plan of Treatment Upcoming Encounters Date Type Department Care Team (Latest Contact Info) Description 06/12/2023 4:15 PM STITCHING MACHINE FEEDER OR OFFBEARER Office Visit Department of Family Medicine, [facility], in [address] [phone] Stefan Salomon M.D. [address] [place] [phone] Discharge Disposition: Home or Self Care 06/21/2023 8:50 AM STITCHING MACHINE FEEDER OR OFFBEARER Appointment Department of Laboratory Medicine in [address] [phone] Stefan Salomon M.D. [address] [place] [phone] 06/21/2023 9:30 AM STITCHING MACHINE FEEDER OR OFFBEARER Anticoagulation Visit Department of Anticoagulation in [place] [address] [place] [phone] Stefan Salomon M.D. [address] [place] [phone] documented as of this encounter Visit Diagnoses Diagnosis Chronic Pain Syndrome Degeneration Disc Cervical Polyarthralgia documented in this encounter Additional Health Concerns Assessment Noted Time PHQ-9 Depression Total Score: 0 07/09/19 23 8:29 AM STITCHING MACHINE FEEDER OR OFFBEARER documented as of this encounter Care Teams Hospital Ward Clerk Relationship Specialty Start Date End Date Stefan Salomon M.D. [address] [phone] PCP - General Family Medicine 07/09/22 Anticoagulation Team 07/09/22 documented as of this encounter
--- OUTSIDE RECORDS SUMMARY | 2023-06-11 08:04 | XMS_ITS | Encounter Summary ---
Author Name Unknown Organization [facility] Address [address] [place] [address] Care Team Providers Care Machine Oiler Name Role Phone Stefan Salomon M.D. Primary Care Provider [phone] Reason for Visit * Outpatient (Routine) - Authorized Specialty Diagnoses / Procedures Referred By Piero t Referred To Contact Anticoagulation Diagnoses Anticoagulant Therapy Mutation Factor V Leiden Heterozygous (HCC) Monitoring For Therapeutic Drug Therapy Thrombosis Deep Vein Personal History Stefan Salomon M.D. [address] [phone] [facility] Referral ID Status Reason Start Date Expiration Date V isits Requested Visits Authorized [id number] Authorized 02/01/2023 01/31/2026 300 300 Encounter Details Date Type Department Care Team (Latest Contact Info) Description 05/17/2023 10:00 AM CHURCH BUSINESS ADMINISTRATOR Anticoagulation Visit Department of Anticoagulation in [place], [place] [address] [place] [address] Stefan Salomon M.D. 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 Never 07/09/2022 Do you belong [...] Answer Date Recorded PHQ-2 Score 0 07/09/2022 [facility] [place] of Occupat ional Health - Occupational Stress [...] place to sleep or slept in a half-way (including now)? No 07/09/2022 Depression Answer Date [...] file Gender Identity Male 07/02/2017 9:12 AM CHURCH BUSINESS ADMINISTRATOR Sexual Orientation Straight 07/02/2017 9: 12 AM CHURCH BUSINESS ADMINISTRATOR documented as of this encounter Patient Instructions * Patient Instructions* Brittany Wolf R.N. - 05/17/2023 10:00 AM CHURCH BUSINESS ADMINISTRATOR Your next INR will be 06/28/2023. You will need to call the Anticoagulation Program for warfarin dosing at the scheduled time for your nurse visit, as indicated on your Patient Appointment Guide (PAG). To reschedule your appointment or for questions about your warfarin, please call Primary Care Anticoagulation Program at [phone] from 7:30 am to 4:30 pm. Saturday-Saturday [...] if you start any herbal or other hjcl-hsz-xfofain product (check with your doctor, a nurse, or pharmacist). If you change your diet significantly. If you decide to stop or start using tobacco or alcohol. If you notice unusual bruising or bleeding. If you notice dark, tarry, or bright red stools or blood in your urine. If you have a painful and swollen calf. CH BUSINESS ADMINISTRATOR documented in this encounter Progress Notes * Brittany Wolf R.N. - 05/17/2023 10:00 AM CST Warfarin Maintenance Nursing Protocol Goal Range 2.0-3.0 (version approved 07/2021) Visit Type: Telephone Primary reason for visit: Routine f/u OR f/u per previous visit recommendations Information provided by:patient INR result: 2.1 Goal range: 2.0-3.0 Inclusion Criteria: All inclusion criteria met. Proceeded to exclusion criteria. Exclusion Criteria: Section 1: No Section 1 exclusion criteria, proceeded to Section 2. Section 2: No Section 2 exclusion criteria, proceeded to screening criteria. Screening Criteria: All screening criteria negative. Testing [...] dose. Currently bridging? no. Next INR in 8 weeks per testing interval extension eligibility. Additional dosing or follow-up information: Pt. will return sooner than protocol recommendation, patient preference Pt is on injectable anticoagulant: No. Plan used: Protocol. See Anticoagulation Track Calendar for dosing and plan details. Anticoagulation Visit Summary: Patient repeats back dosing instructions, date of next INR, and has no further questions at this time. Total time spent with patient: N/A CH BUSINESS ADMINISTRATOR documented in this encounter Plan of Treatment Upcoming Encounters Date Type Department Care Team (Latest Contact Info) Description 06/12/2023 4:15 PM CHURCH BUSINESS ADMINISTRATOR Office Visit Department of Family Medicine, [facility], in [address] [phone] Stefan Salomon M.D. [address] [place] [phone] Discharge Disposition: Home or Self Care 06/21/2023 8:50 AM CHURCH BUSINESS ADMINISTRATOR Appointment Department of Laboratory Medicine in [address] [phone] Stefan Salomon M.D. [address] [place] [phone] 06/21/2023 9:30 AM CHURCH BUSINESS ADMINISTRATOR Anticoagulation Visit Department of Anticoagulation in [place] [address] [place] [address] Stefan Salomon M.D. [address] [place] [phone] documented as of this encounter Results * INR Reflex, POCT, Blood (06/04/2023 1:50 PM CHURCH BUSINESS ADMINISTRATOR) INR Reflex, POCT, B 2.0 06/04/2023 1:50 PM CHURCH BUSINESS ADMINISTRATOR CNFL Comment: ----ADDITIONAL INFORMATION---- Standard intensity warfarin therapeutic range: 2.0 to 3.0 ?? High intensity warfarin therapeutic range: 2.5 to 3.5 Blood (Blood, Capillary) 06/04/2023 1:50 PM CHURCH BUSINESS ADMINISTRATOR 06/04/2023 1:50 PM CHURCH BUSINESS ADMINISTRATOR Stefan Salomon M.D. LAB POCT ORDERABLES - DEVICE [facility] [address] [place] [address], [facility] CNFL [facility] in [address] [address] documented in this encounter Visit Diagnoses Diagnosis Anticoagulant Therapy [Z79.01]- Primary Mutation Factor V Leiden Heterozygous (HCC) Monitoring For Therapeutic Drug Therapy [Z51.81] Thrombosis Deep Vein Personal History Hypertension Essential Primary Hyperlipidemia Halfway (Current) Anticoagulant Treatment documented in this encounter Additional Health Concerns Assessment Noted Time PHQ-9 Depression Total Score: 0 07/09/19 23 8:29 AM CHURCH BUSINESS ADMINISTRATOR documented as of this encounter Care Teams Machine Oiler Relationship Specialty Start Date End Date Stefan Salomon M.D. [address] [place] [phone] PCP - General Family Medicine 07/09/22 Anticoagulation Team 07/09/22 documented as of this encounter
--- OUTSIDE RECORDS SUMMARY | 2023-06-11 08:04 | XMS_ITS ---
Author Name Unknown Organization [facility] Address [address] [place] [address] Care Team Providers Care Reforestation Worker Name Role Phone Unavailable Unavailable Unavailable Surgery Details Not on file Complications Check Surgery Details section. Procedure Estimated Blood Loss Check Surgery Details section. Procedure Findings Check Surgery Details section. Procedure Specimens Taken Check Surgery Details section.
--- OUTSIDE RECORDS SUMMARY | 2023-06-11 08:04 | XMS_ITS | Encounter Summary ---
Author Name Unknown Organization [facility] Address [address] [place] [address] Care Team Providers Care Panelboard Operator Name Role Phone Stefan Salomon M.D. Primary Care Provider [phone] Encounter Details Date Type Department Care Team (Late st Contact Info) Description 05/31/2023 Clinical Communication Department of Family Medicine, [facility], in [address] [phone] Stefan Salomon M.D. [address] [place] [phone] Social History Tobacco Use Types Packs/Day Years [...] week 07/09/2022 How often do you attend adventism or episcopal serv ices? Never 07/09/2022 Do you belong to any clubs o r organizations such as adventism groups, unions, fraternal or athletic groups, or [...] Answer Date Recorded PHQ-2 Score 0 07/09/2022 [facility] of Occupat ional Health - Occupational Stress [...] place to sleep or slept in a care home (including now)? No 07/09/2022 Depression Answer Date [...] file Gender Identity Male 07/02/2017 9:12 AM UM RN Sexual Orientation Straight 07/02/2017 9: 12 AM UM RN documented as of this encounter Plan of Treatment Upcoming Encounters Date Type Department Care Team (Latest Contact Info) Description 06/12/2023 4:15 PM UM RN Office Visit Department of Family Medicine, [facility], in [address] [phone] Stefan Salomon M.D. [address] [place] [phone] Discharge Disposition: Home or Self Care 06/21/2023 8:50 AM UM RN Appointment Department of Laboratory Medicine in [address] [phone] Stefan Salomon M.D. [address] [place] [phone] 06/21/2023 9:30 AM UM RN Anticoagulation Visit Department of Anticoagulation in [place], [place] [address] [place] [address] Stefan Salomon M.D. [address] [place] [phone] documented as of this encounter Visit Diagnoses Not on filedocumented in this encounter Additional Health Concerns Assessment Noted Time PHQ-9 Depression Total Score: 0 07/09/19 23 8:29 AM UM RN documented as of this encounter Care Teams Panelboard Operator Relationship Specialty Start Date End Date Stefan Salomon M.D. [address] [place] [phone] PCP - General Family Medicine 07/09/22 Anticoagulation Team 07/09/22 documented as of this encounter
--- OUTSIDE RECORDS SUMMARY | 2023-06-11 08:04 | XMS_ITS | Encounter Summary ---
Author Name Unknown Organization [facility] Address [address] [place] [address] Care Team Providers Care Material Checker Name Role Phone Stefan Salomon M.D. Primary Care Provider [phone] Reason for Visit * Outpatient (Routine) - Authorized Specialty Diagnoses / Procedures Referred By Contdayana t Referred To Contact Anticoagulation Diagnoses Anticoagulant Therapy Mutation Factor V Leiden Heterozygous (HCC) Monitoring For Therapeutic Drug Therapy Thrombosis Deep Vein Personal History Stefan Salomon M.D. [address] [phone] [facility] Referral ID Status Reason Start Date Expiration Date V isits Requested Visits Authorized [id number] Authorized 02/01/2023 01/31/2026 300 300 Encounter Details Date Type Department Care Team (Latest Contact Info) Description 04/19/2023 9:00 AM DOMINATRIX Anticoagulation Visit Department of Anticoagulation in [place], [place] [address] [place] [address] Stefan Salomon M.D. [address] [place] [phone] Anticoagulant Therapy [Z79.01]; Mutation Factor V Leiden [...] How often do you attend mosque or yarsani serv ices? Never 07/09/2022 Do you belong [...] Answer Date Recorded PHQ-2 Score 0 07/09/2022 [facility] [place] of Occupat ional Health - Occupational Stress [...] file Gender Identity Male 07/02/2017 9:12 AM DOMINATRIX Sexual Orientation Straight 07/02/2017 9: 12 AM DOMINATRIX documented as of this encounter Plan of Treatment Upcoming Encounters Date Type Department Care Team (Latest Contact Info) Description 06/12/2023 4:15 PM DOMINATRIX Office Visit Department of Family Medicine, [facility], in [address] [phone] Stefan Salomon M.D. [address] [place] [phone] Discharge Disposition: Home or Self Care 06/21/2023 8:50 AM DOMINATRIX Appointment Department of Laboratory Medicine in [address] [phone] Stefan Salomon M.D. [address] [place] [phone] 06/21/2023 9:30 AM DOMINATRIX Anticoagulation Visit Department of Anticoagulation in [place] [address] [place] [address] Stefan Salomon M.D. [address] [place] [phone] documented as of this encounter Visit Diagnoses Diagnosis Anticoagulant Therapy [Z79.01] Mutation Factor V Leiden Heterozygous (HCC) Monitoring For Therapeutic Drug Therapy [Z51.81] Thrombosis Deep Vein Personal History documented in this encounter Additional Health Concerns Assessment Noted Time PHQ-9 Depression Total Score: 0 07/09/19 23 8:29 AM DOMINATRIX documented as of this encounter Care Teams Material Checker Relationship Specialty Start Date End Date Stefan Salomon M.D. [address] [place] [phone] PCP - General Family Medicine 07/09/22 Anticoagulation Team 07/09/22 documented as of this encounter
--- OUTSIDE RECORDS SUMMARY | 2023-06-11 08:04 | XMS_ITS | Encounter Summary ---
Author Name Unknown Organization [facility] Address [address] [place] [address] Care Team Providers Care Frame Straightener Name Role Phone Stefan Salomon M.D. Primary Care Provider [phone] Reason for Visit * Reason Comments Med Refill Encounter Details Date Type Department Care Team (Late st Contact Info) Description 05/01/2023 Refill Department of Family Medicine, [facility], in [address] [phone] Stefan Salomon M.D. [address] [place] [phone] Med Refill Social History Tobacco Use Types [...] week 07/09/2022 How often do you attend mu-ism or baptism serv ices? Never 07/09/2022 Do you belong to any clubs o r organizations such as mu-ism groups, unions, fraternal or athletic groups, or [...] Answer Date Recorded PHQ-2 Score 0 07/09/2022 [facility] of Occupat ional Health - Occupational Stress [...] place to sleep or slept in a intermediate (including now)? No 07/09/2022 Depression Answer Date [...] file Gender Identity Male 07/02/2017 9:12 AM WOOLEN SUITING SHRINKER Sexual Orientation Straight 07/02/2017 9: 12 AM WOOLEN SUITING SHRINKER documented as of this encounter Miscellaneous Notes * Telephone Encounter - Rachel Llamas L.P.N. - 05/02/2023 11:47 AM WOOLEN SUITING SHRINKER Controlled substance renewal for Tramadol 50 mg: No nursing concerns Renewal is pended per the controlled substance prescribing plan located in synopsis Date last renewed (start date): 04/03/23 Last provider visit: 02/21/23 Last urine drug screen: 02/21/23 ; Next due: 02/22/24 Screenings due: DESMOND-7 Next provider visit due: 08/22/23 Chronic Opioid therapy agreement last reviewed/signed: 03/05/22 needs updating next visit This prescription may be filled on 05/03/23, and next renewal may be on or after 06/02/23 EN SUITING SHRINKER * Telephone Encounter - Caity Gavin - 05/01/2023 7:59 AM CST Images from the original note were not included. Nurse review: Unable to forward request to provider; Controlled Substance, CSA Primary Provider: Stefan Salomon M.D. EN SUITING SHRINKER documented in this encounter Plan of Treatment Upcoming Encounters Date Type Department Care Team (Latest Contact Info) Description 06/12/2023 4:15 PM WOOLEN SUITING SHRINKER Office Visit Department of Family Medicine, [facility], in [address] [phone] Stefan Salomon M.D. [address] [place] [phone] Discharge Disposition: Home or Self Care 06/21/2023 8:50 AM WOOLEN SUITING SHRINKER Appointment Department of Laboratory Medicine in [address] [phone] Stefan Salomon M.D. [address] [place] [phone] 06/21/2023 9:30 AM WOOLEN SUITING SHRINKER Anticoagulation Visit Department of Anticoagulation in [place] [address] [place] [address] Stefan Salomon M.D. [address] [place] [phone] documented as of this encounter Visit Diagnoses Diagnosis Chronic Pain Syndrome Degeneration Disc Cervical Polyarthralgia documented in this encounter Additional Health Concerns Assessment Noted Time PHQ-9 Depression Total Score: 0 07/09/19 23 8:29 AM WOOLEN SUITING SHRINKER documented as of this encounter Care Teams Frame Straightener Relationship Specialty Start Date End Date Stefan Salomon M.D. [address] [phone] PCP - General Family Medicine 07/09/22 Anticoagulation Team 07/09/22 documented as of this encounter
--- OUTSIDE RECORDS SUMMARY | 2023-06-11 08:04 | XMS_ITS | Encounter Summary ---
Author Name Unknown Organization [facility] Address [address] [place] [address] Care Team Providers Care Student Financial Services Counselor Name Role Phone Stefan Salomon M.D. Primary Care Provider [phone] Reason for Referral * Outpatient (Routine) - Closed Specialty Diagnoses / Procedures Referred By Contdayana t Referred To Contact Anticoagulation Stefan Salomon M.D. [address] [place] [phone] [facility] Referral ID Status Reason Start Date Expiration Date Visits Re quested Visits Authorized [id number] Closed 04/19/2023 04/18/2026 1 1 Scheduling Instructions unable to reach 04/19 IGERATION MECHANIC HELPER Reason for Visit * Reason Onset Date Comments Anticoagulation 04/19/2023 Unable to reach 04/19/23 Encounter Details Date Type Department Care Team (Latest Contact Info) Description 04/19/2023 Clinical Communication Department of Anticoagulation in [place], [place] [address] [place] [address] Pippa Morales, RCotyNCoty [address] [place] [phone] Anticoagulation (Unable to reach 04/19/23) Social History Tobacco Use Types Packs/Day Years [...] week 07/09/2022 How often do you attend jain or taoism serv ices? Never 07/09/2022 Do you belong to any clubs o r organizations such as jain groups, unions, fraternal or athletic groups, or [...] Answer Date Recorded PHQ-2 Score 0 07/09/2022 [facility] [place] of Occupat ional Health - Occupational Stress [...] place to sleep or slept in a skilled nursing (including now)? No 07/09/2022 Depression Answer Date [...] file Gender Identity Male 07/02/2017 9:12 AM REFRIGERATION MECHANIC HELPER Sexual Orientation Straight 07/02/2017 9: 12 AM REFRIGERATION MECHANIC HELPER documented as of this encounter Miscellaneous Notes * Telephone Encounter - Pippa Morales R.N. - 04/19/2023 4:38 PM REFRIGERATION MECHANIC HELPER Patient contacted today by staff as they have not contacted the anticoagulation program following INR test. INR No communication outcome: Unable to reach. First Attempt. IGERATION MECHANIC HELPER documented in this encounter Plan of Treatment Upcoming Encounters Date Type Department Care Team (Latest Contact Info) Description 06/12/2023 4:15 PM REFRIGERATION MECHANIC HELPER Office Visit Department of Family Medicine, [facility], in [address] [phone] Stefan Salomon M.D. [address] [place] [phone] Discharge Disposition: Home or Self Care 06/21/2023 8:50 AM REFRIGERATION MECHANIC HELPER Appointment Department of Laboratory Medicine in [address] [phone] Stefan Salomon M.D. [address] [place] [phone] 06/21/2023 9:30 AM REFRIGERATION MECHANIC HELPER Anticoagulation Visit Department of Anticoagulation in [place], [place] [address] [place] [phone] Stefan Salomon M.D. [address] [place] [phone] Scheduled Referrals Name Type Priority Associated Diagnoses Order Schedule Anticoagulation nurse visit (clinic) Outpatient Referral Routine Expected: 04/22/2023, Expires: 07/20/2024 documented as of this encounter Visit Diagnoses Not on filedocumented in this encounter Additional Health Concerns Assessment Noted Time PHQ-9 Depression Total Score: 0 07/09/19 23 8:29 AM REFRIGERATION MECHANIC HELPER documented as of this encounter Care Teams Student Financial Services Counselor Relationship Specialty Start Date End Date Stefan Salomon M.D. [address] [place] [phone] PCP - General Family Medicine 07/09/22 Anticoagulation Team 07/09/22 documented as of this encounter
--- OUTSIDE RECORDS SUMMARY | 2023-06-11 08:04 | XMS_ITS | Encounter Summary ---
Author Name Unknown Organization [facility] Address [address] [place] [address] Care Team Providers Care Rat Poisoner Name Role Phone Stefan Salomon M.D. Primary Care Provider [phone] Encounter Details Date Type Department Care Team (Latest Contact Info) Description 06/04/2023 1:46 PM ELECTRONIC EQUIPMENT TRADES WORKER - 06/04/2023 11:59 PM ELECTRONIC EQUIPMENT TRADES WORKER Hospital Encounter Department of Laboratory Medicine in [address] [phone] Stefan Salomon M.D. [address] [place] [phone] Anticoagulant Therapy [Z79.01]; Mutation Factor V Leiden [...] week 07/09/2022 How often do you attend holiness or tenriism serv ices? Never 07/09/2022 Do you belong to any clubs o r organizations such as holiness groups, unions, fraternal or athletic groups, or [...] Answer Date Recorded PHQ-2 Score 0 07/09/2022 [facility] of Occupat ional Health - [...] file Gender Identity Male 07/02/2017 9:12 AM ELECTRONIC EQUIPMENT TRADES WORKER Sexual Orientation Straight 07/02/2017 9: 12 AM ELECTRONIC EQUIPMENT TRADES WORKER documented as of this encounter Medications at [...] to report time 4000 mL 0 08/01/2022 traMADoL (ULTRAM) 50 mg tabletIndications:C hronic Pain/Nonacute Pain Take 1-2 tablets (50-100 mg total) by mouth every 6 (six) hours as needed for pain Indications: Chronic Pain/Nonacute Pain. 240 tablet 0 06/05/2023 triamcinolone (KENALOG) 0.1 % cream Apply to [...] NEEDED FOR SLEEP 30 tablet 0 09/13/2022 documented as of this encounter Plan of Treatment Upcoming Encounters Date Type Department Care Team (Latest Contact Info) Description 06/12/2023 4:15 PM ELECTRONIC EQUIPMENT TRADES WORKER Office Visit Department of Family Medicine, [facility], in [address] [phone] Stefan Salomon M.D. [address] [place] [phone] Discharge Disposition: Home or Self Care 06/21/2023 8:50 AM ELECTRONIC EQUIPMENT TRADES WORKER Appointment Department of Laboratory Medicine in [address] [phone] Stefan Salomon M.D. [address] [place] [phone] 06/21/2023 9:30 AM ELECTRONIC EQUIPMENT TRADES WORKER Anticoagulation Visit Department of Anticoagulation in [place] [address] [place] [address] Stefan Salomon M.D. [address] [place] [phone] documented as of this encounter Procedures Procedure Name Priority Date/Time Associated Diagnosis Comments INR REFLEX, POCT, B Routine 06/04/2023 1:50 PM ELECTRONIC EQUIPMENT TRADES WORKER Anticoagulant Therapy [Z79.01] Mutation Factor V Leiden Heterozygous (HCC) Monitoring For Therapeutic Drug Therapy [Z51.81] Thrombosis Deep Vein Personal History documented in this encounter Results * INR Reflex, POCT, Blood (06/04/2023 1:50 PM ELECTRONIC EQUIPMENT TRADES WORKER) INR Reflex, POCT, B 2.0 06/04/2023 1:50 PM ELECTRONIC EQUIPMENT TRADES WORKER CNFL Comment: ----ADDITIONAL INFORMATION---- Standard intensity warfarin therapeutic range: 2.0 to 3.0 ?? High intensity warfarin therapeutic range: 2.5 to 3.5 Blood (Blood, Capillary) 06/04/2023 1:50 PM ELECTRONIC EQUIPMENT TRADES WORKER 06/04/2023 1:50 PM ELECTRONIC EQUIPMENT TRADES WORKER Stefan Salomon M.D. LAB POCT ORDERABLES - DEVICE Performing Organization Address [facility]/State/ZIP Co de Phone Number [facility] [address] [place] [phone], [place] CNFL [facility] in [address] [address] documented in this encounter Visit Diagnoses Diagnosis Anticoagulant Therapy [Z79.01] Mutation Factor V Leiden Heterozygous (HCC) Monitoring For Therapeutic Drug Therapy [Z51.81] Thrombosis Deep Vein Personal History documented in this encounter Additional Health Concerns Assessment Noted Time PHQ-9 Depression Total Score: 0 07/09/19 23 8:29 AM ELECTRONIC EQUIPMENT TRADES WORKER documented as of this encounter Care Teams Rat Poisoner Relationship Specialty Start Date End Date Stefan Salomon M.D. [address] [place] [phone] PCP - General Family Medicine 07/09/22 Anticoagulation Team 07/09/22 documented as of this encounter
--- OUTSIDE RECORDS SUMMARY | 2023-06-11 08:05 | XMS_ITS | Encounter Summary ---
Author Name Unknown Organization [facility] Address [address] [place] [address] Care Team Providers Care Dot Net Developer Name Role Phone Stefan Salomon M.D. Primary Care Provider [phone] Encounter Details Date Type Department Care Team (Latest Contact Info) Description 04/19/2023 7:33 AM DISPATCH OFFICER - 04/19/2023 9:01 AM [facility] Hospital Encounter Department of Laboratory Medicine and Pathology, [facility], in [place], [place] [address] [place] [address] Stefan Salomon M.D. [address] [place] [address] [phone] Anticoagulant Therapy [Z79.01]; Mutation Factor V Leiden [...] week 07/09/2022 How often do you attend sikhism or adventist serv ices? Never 07/09/2022 Do you belong to any clubs o r organizations such as sikhism groups, unions, fraternal or athletic groups, or [...] Answer Date Recorded PHQ-2 Score 0 07/09/2022 [facility] of Occupat ional Health - [...] place to sleep or slept in a detention (including now)? No 07/09/2022 Depression Answer Date [...] file Gender Identity Male 07/02/2017 9:12 AM DISPATCH OFFICER Sexual Orientation Straight 07/02/2017 9: 12 AM DISPATCH OFFICER documented as of this encounter Medications at [...] (Latest Contact Info) Description 06/12/2023 4:15 PM DISPATCH OFFICER Office Visit Department of Family Medicine, [facility], in [address] [phone] Stefan Salomon M.D. [address] [place] [address] [phone] Discharge Disposition: Home or Self Care 06/21/2023 8:50 AM DISPATCH OFFICER Appointment Department of Laboratory Medicine in [address] [phone] Stefan Salomon M.D. [address] [place] [address] [phone] 06/21/2023 9:30 AM DISPATCH OFFICER Anticoagulation Visit Department of Anticoagulation in [place] [address] [place] [address] Stefan Salomon M.D. [address] [place] [address] [phone] documented as of this encounter Visit Diagnoses Diagnosis Anticoagulant Therapy [Z79.01] Mutation Factor V Leiden Heterozygous (HCC) Monitoring For Therapeutic Drug Therapy [Z51.81] Thrombosis Deep Vein Personal History documented in this encounter Additional Health Concerns Assessment Noted Time PHQ-9 Depression Total Score: 0 07/09/19 23 8:29 AM DISPATCH OFFICER documented as of this encounter Care Teams Dot Net Developer Relationship Specialty Start Date End Date Stefan Salomon M.D. [address] [place] [address] [phone] PCP - General Family Medicine 07/09/22 Anticoagulation Team 07/09/22 documented as of this encounter
--- OUTSIDE RECORDS SUMMARY | 2023-06-11 08:05 | XMS_ITS | Encounter Summary ---
Author Name Unknown Organization [facility] Address [address] [place] [address] Care Team Providers Care Green Building Materials Distributor Name Role Phone Stefan Salomon M.D. Primary Care Provider [phone] Reason for Visit * Reason Comments Med Refill Encounter Details Date Type Department Care Team (Late st Contact Info) Description 04/02/2023 Refill Department of Family Medicine, [facility], in [address] [phone] Stefan Salomon M.D. [address] [place] [address] [phone] Med Refill Social History Tobacco Use Types [...] week 07/09/2022 How often do you attend temple or uatsdin serv ices? Never 07/09/2022 Do you belong to any clubs o r organizations such as temple groups, unions, fraternal or athletic groups, or [...] Answer Date Recorded PHQ-2 Score 0 07/09/2022 [facility] of Occupat ional Health - Occupational [...] file Gender Identity Male 07/02/2017 9:12 AM ESTATE AND TRUST TAX PRINCIPAL Sexual Orientation Straight 07/02/2017 9: 12 AM ESTATE AND TRUST TAX PRINCIPAL documented as of this encounter Miscellaneous Notes * Telephone Encounter - Rebeca Garg L.P.NCoty - 04/03/2023 1:15 PM CDT Controlled substance renewal for tramadol 50 mg: No nursing concerns Renewal is pended per the controlled substance prescribing plan located in the controlled substancesynopsis Date last renewed (start date): 03/03/2023 Last provider visit: 02/21/2023 Last urine drug screen: 02/21/2023 ; Next due: 02/22/2024 Screenings due: none Next provider visit due: 08/22/2023 Chronic Opioid therapy agreement last reviewed/signed: 03/05/2023 This prescription may be filled on 04/03/23, and next renewal may be on or after 05/03/2023 documented in this encounter Plan of Treatment Upcoming Encounters Date Type Department Care Team (Latest Contact Info) Description 06/12/2023 4:15 PM ESTATE AND TRUST TAX PRINCIPAL Office Visit Department of Family Medicine, [facility], in [address] [phone] Stefan Salomon M.D. [address] [place] [address] [phone] Discharge Disposition: Home or Self Care 06/21/2023 8:50 AM ESTATE AND TRUST TAX PRINCIPAL Appointment Department of Laboratory Medicine in [address] [phone] Stefan Salomon M.D. [address] [place] [address] [phone] 06/21/2023 9:30 AM ESTATE AND TRUST TAX PRINCIPAL Anticoagulation Visit Department of Anticoagulation in [place], [place] [address] [place] [phone] Stefan Salomon M.D. [address] [place] [address] [phone] documented as of this encounter Visit Diagnoses Diagnosis Chronic Pain Syndrome Degeneration Disc Cervical Polyarthralgia documented in this encounter Additional Health Concerns Assessment Noted Time PHQ-9 Depression Total Score: 0 07/09/19 8:29 AM ESTATE AND TRUST TAX PRINCIPAL documented as of this encounter Care Teams Green Building Materials Distributor Relationship Specialty Start Date End Date Stefan Salomon M.D. [address] [place] [address] [phone] PCP - General Family Medicine 07/09/22 Anticoagulation Team 07/09/22 documented as of this encounter
--- OUTSIDE RECORDS SUMMARY | 2023-06-11 08:05 | XMS_ITS | Encounter Summary ---
Author Name Unknown Organization [facility] Address [address] [place] [address] Care Team Providers Care Grade Teacher Name Role Phone Stefan Salomon M.D. Primary Care Provider [phone] Reason for Visit * Reason Onset Date Comments New Med Request 02/25/2023 Med Increase Encounter Details Date Type Department Care Team (Latest Contact Info) Description 02/25/2023 Clinical Communication Department of Family Medicine, [facility], in [address] [phone] Stefan Salomon M.D. [address] [place] [address] [phone] New Med Request (Med Increase) Social History Tobacco Use Types Packs/Day Years [...] week 07/09/2022 How often do you attend sabianism or yazidi serv ices? Never 07/09/2022 Do you belong to any clubs o r organizations such as sabianism groups, unions, fraternal or athletic groups, or [...] Answer Date Recorded PHQ-2 Score 0 07/09/2022 [facility] of Occupat ional Health - Occupational [...] to sleep or slept in a senior care (including now)? No 07/09/2022 Depression Answer Date [...] file Gender Identity Male 07/02/2017 9:12 AM BUSINESS ANALYST PROJECT MANAGER Sexual Orientation Straight 07/02/2017 9: 12 AM BUSINESS ANALYST PROJECT MANAGER documented as of this encounter Miscellaneous Notes * Telephone Encounter - Ty Christensen APRN, C.N.P. - 02/25/2023 12:40 PM CDT Signed, thank you documented in this encounter Plan of Treatment Upcoming Encounters Date Type Department Care Team (Latest Contact Info) Description 06/12/2023 4:15 PM BUSINESS ANALYST PROJECT MANAGER Office Visit Department of Family Medicine, [facility], in [address] [phone] Stefan Salomon M.D. [address] [place] [address] [phone] Discharge Disposition: Home or Self Care 06/21/2023 8:50 AM BUSINESS ANALYST PROJECT MANAGER Appointment Department of Laboratory Medicine in [address] [phone] Stefan Salomon M.D. [address] [place] [address] [phone] 06/21/2023 9:30 AM BUSINESS ANALYST PROJECT MANAGER Anticoagulation Visit Department of Anticoagulation in [place] [address] [place] [phone] Stefan Salomon M.D. [address] [place] [phone] documented as of this encounter Visit Diagnoses Diagnosis Insufficiency Venous- Primary Chronic Pain Syndrome Pain Limb Generalized Pain Leg Bilateral Pseudogout documented in this encounter Additional Health Concerns Assessment Noted Time PHQ-9 Depression Total Score: 0 07/09/19 23 8:29 AM BUSINESS ANALYST PROJECT MANAGER documented as of this encounter Care Teams Grade Teacher Relationship Specialty Start Date End Date Stefan Salomon M.D. [address] [place] [address] [phone] PCP - General Family Medicine 07/09/22 Anticoagulation Team 07/09/22 documented as of this encounter
--- OUTSIDE RECORDS SUMMARY | 2023-06-11 08:05 | XMS_ITS | Encounter Summary ---
Author Name Unknown Organization [facility] Address [address] [place] [address] Care Team Providers Care Diet Aid Name Role Phone Stefan Salomon M.D. Primary Care Provider [phone] Encounter Details Date Type Department Care Team (Latest Contact Info) Description 03/14/2023 7:47 AM CDT - 03/14/2023 11:59 PM CDT Hospital Encounter Department of Laboratory Medicine in [address] [phone] Stefan Salomon M.D. [address] [place] [address] [phone] Anticoagulant Therapy [Z79.01]; Mutation Factor V Leiden [...] week 07/09/2022 How often do you attend samaritan or taoism serv ices? Never 07/09/2022 Do you belong to any clubs o r organizations such as samaritan groups, unions, fraternal or athletic groups, or [...] place to sleep or slept in a correction (including now)? No 07/09/2022 Depression Answer Date [...] file Gender Identity Male 07/02/2017 9:12 AM ASSEMBLY MACHINE OPERATOR Sexual Orientation Straight 07/02/2017 9: 12 AM ASSEMBLY MACHINE OPERATOR documented as of this encounter Medications at Time of Discharge Medication Sig Dispensed Refills Start Date End Date acetaminophen (TYLENOL) 500 mg capsule Take 500 mg by mouth every 6 (six) hours as needed for pain. Takes 4,000 mg usually each day 0 fluocinonide (LIDEX) 0.05 % cream Apply twice [...] NEEDED FOR SLEEP 30 tablet 0 09/13/2022 amLODIPine (NORVASC) 10 mg tablet Take 1 tablet (10 mg total) by mouth daily. 90 tablet 3 03/16/2022 03/20/2023 traMADoL (ULTRAM) 50 mg tabletIndications:C hronic Pain/Nonacute Pain Take 1-2 tablets (50-100 mg total) by mouth every 6 (six) hours as needed for pain Indications: Chronic Pain/Nonacute Pain. 240 tablet 0 02/21/2023 04/02/2023 documented as of this encounter Plan of Treatment Upcoming Encounters Date Type Department Care Team (Latest Contact Info) Description 06/12/2023 4:15 PM ASSEMBLY MACHINE OPERATOR Office Visit Department of Family Medicine, [facility], in [address] [phone] Stefan Salomon M.D. [address] [place] [address] [phone] Discharge Disposition: Home or Self Care 06/21/2023 8:50 AM ASSEMBLY MACHINE OPERATOR Appointment Department of Laboratory Medicine in [address] [phone] Stefan Salomon M.D. [address] [place] [address] [phone] 06/21/2023 9:30 AM ASSEMBLY MACHINE OPERATOR Anticoagulation Visit Department of Anticoagulation in [place] [address] [place] [phone] Stefan Salomon M.D. [address] [place] [address] [phone] documented as of this encounter Procedures Procedure Name Priority Date/Time Associated Diagnosis Comments INR REFLEX, POCT, B Routine 03/14/2023 7:51 AM CDT Anticoagulant Therapy [Z79.01] Mutation Factor V Leiden Heterozygous (HCC) Monitoring For Therapeutic Drug Therapy [Z51.81] Thrombosis Deep Vein Personal History documented in this encounter Results * INR Reflex, POCT, Blood (03/14/2023 7:51 AM CDT) INR Reflex, POCT, B 2.0 03/14/2023 7:51 AM CDT [facility]FL Comment: ----ADDITIONAL INFORMATION---- Standard intensity warfarin therapeutic range: 2.0 to 3.0 ?? High intensity warfarin therapeutic range: 2.5 to 3.5 Blood (Blood, Capillary) 03/14/2023 7:51 AM CDT 03/14/2023 7:51 AM CDT Stefan Salomon M.D. LAB POCT ORDERABLES - [facility]ICE [facility] [address] [place] [phone], [facility] in [address] [address] documented in this encounter Visit Diagnoses Diagnosis Anticoagulant Therapy [Z79.01] Mutation Factor V Leiden Heterozygous (HCC) Monitoring For Therapeutic Drug Therapy [Z51.81] Thrombosis Deep Vein Personal History documented in this encounter Additional Health Concerns Assessment Noted Time PHQ-9 Depression Total Score: 0 07/09/19 23 8:29 AM ASSEMBLY MACHINE OPERATOR documented as of this encounter Care Teams Diet Aid Relationship Specialty Start Date End Date Stefan Salomon M.D. [address] [place] [phone] PCP - General Family Medicine 07/09/22 Anticoagulation Team 07/09/22 documented as of this encounter
--- OUTSIDE RECORDS SUMMARY | 2023-06-11 08:05 | XMS_ITS | Encounter Summary ---
Author Name Unknown Organization [facility] Address [address] [place] [address] Care Team Providers Care Carding Machine Operator Name Role Phone Stefan Salomon M.D. Primary Care Provider [phone] Encounter Details Date Type Department Care Team (Latest Contact Info) Description 02/21/2023 2:30 PM CDT - 02/21/2023 11:59 PM CDT Hospital Encounter Department of Laboratory Medicine in [address] [phone] Stefan Salomon M.D. [address] [place] [phone] Chronic Pain Syndrome; Polyarthralgia; Degeneration Disc Cervical Discharge Disposition: Home or Self Care Social [...] week 07/09/2022 How often do you attend episcopal or nondenominational serv ices? Never 07/09/2022 Do you belong to any clubs o r organizations such as episcopal groups, unions, fraternal or athletic groups, or [...] Answer Date Recorded PHQ-2 Score 0 07/09/2022 [facility] - Occupational [...] file Gender Identity Male 07/02/2017 9:12 AM CORNER CUTTER Sexual Orientation Straight 07/02/2017 9: 12 AM CORNER CUTTER documented as of this encounter Medications at [...] for 2-3 weeks. 40 g 0 07/27/2022 hydrocortisone (HYTONE) 2.5 % cream Apply to [...] mouth daily. 90 tablet 3 03/16/2022 03/20/2023 gabapentin (NEURONTIN) 300 mg capsule Take 1 capsule (300 mg total) by mouth 3 (three) times a day. 360 capsule 3 05/17/2022 02/25/2023 traMADoL (ULTRAM) 50 mg tabletIndications:C hronic Pain/Nonacute Pain Take 1-2 tablets (50-100 mg total) by mouth every 6 (six) hours as needed for pain Indications: Chronic Pain/Nonacute Pain. 240 tablet 0 02/21/2023 04/02/2023 documented as of this encounter Plan of Treatment Upcoming Encounters Date Type Department Care Team (Latest Contact Info) Description 06/12/2023 4:15 PM CORNER CUTTER Office Visit Department of Family Medicine, [facility], in [address] [place] [phone] Stefan Salomon M.D. [address] [place] [address] [phone] Discharge Disposition: Home or Self Care 06/21/2023 8:50 AM CORNER CUTTER Appointment Department of Laboratory Medicine in [address] [phone] Stefan Salomon M.D. [address] [place] [phone] 06/21/2023 9:30 AM CORNER CUTTER Anticoagulation Visit Department of Anticoagulation in [place], [place] [address] [place] [address] Stefan Salomon M.D. [address] [place] [address] [phone] documented as of this encounter Procedures Procedure Name Priority Date/Time Associated Diagnosis Comments CONTROLLED SUBSTANCE MONITORING, U Routine 02/21/2023 2:36 PM CDT Chronic Pain Syndrome Polyarthralgia Degeneration Disc Cervical documented in this encounter Results * (ABNORMAL) Controlled Substance Monitoring Panel, Urine (02/21/2023 2:36 PM CDT) List patient's current medications Not provided 3 10:09 PM CDT [facility] Comment: ----ADDITIONAL INFORMATION---- Accuracy and completeness of declared medications on reports solely dependent on information submitted by client. Creatinine, Random, U 225.8 mg/dL 3 8:56 AM CDT [facility] Specific Logan 1.035 02/23/20 2 3 8:56 AM CDT [facility] pH 5.0 3 8:56 AM CDT [facility] Oxidants Negative Cutoff: 200 mg/L 3 8:56 AM CDT [facility] Comment Normal 3 8:56 AM CDT [facility] Barbiturates Negative Cutoff: 200 ng/mL 3 8:56 AM [facility] Cocaine Negative Cutoff: 150 ng/mL 3 8:56 AM [facility] Comment: This cocaine immunoassay targets benzoylecgonine the primary metabolite of cocaine. Tetrahydrocannabinol Negative Cutoff: 50 ng/mL 3 8:56 AM [facility] Comment: This immunoassay targets delta-9 tetrahydrocannabinol carboxylic acid (THC-COOH), a metabolite of delta-9 tetrahydrocannabinol the main psychoactive ingredient of marijuana. ----ADDITIONAL INFORMATION---- This report is intended for use in clinical monitoring or management of patients. ??It is not intended for use in employment-related testing. Codeine Not Detected Cutoff: 25 ng/mL 3 11:35 PM CDT [facility] Comment:Tylenol 3 Yyvmluv-6-wstg-glucuro nide Not Detected Cutoff: 100 ng/mL 3 11:35 PM CDT [facility] Comment:Metabolite of codein e Morphine Not Detected Cutoff: 25 ng/mL 3 11:35 PM CDT [facility] Comment: Kelsey Ornelas, MS Contin; Also a minor metabolite (10%) of codeine and can be seen in low concentrations (<2,000 ng/mL) with poppy seed ingestion. Yoxwkfbv-2-jmae-glucur onide Not Detected Cutoff: 100 ng/mL 3 11:35 PM CDT [facility] Comment:Metabolite of morphi ne 6-monoacetylmorphine Not Detected Cutoff: 25 ng/mL 3 11:35 PM CDT [facility] Comment:Metabolite of heroin Hydrocodone Not Detected Cutoff: 25 ng/mL 3 11:35 PM CDT [facility] Comment: Lortab, [place], Vicodin; Also a very minor metabolite of codeine and impurity (<1%) of oxycodone. Norhydrocodone Not Detected Cutoff: 25 ng/mL 3 11:35 PM CDT [facility] Comment:Metabolite of hydroc odone Dihydrocodeine Not Detected Cutoff: 25 ng/mL 3 11:35 PM CDT [facility] Comment:Metabolite of hydroc odone Hydromorphone Not Detected Cutoff: 25 ng/mL 3 11:35 PM CDT [facility] Comment: Dilaudid, Exalgo; Also a metabolite of hydrocodone and a minor (<5%) metabolite of morphine. Vpjophzipnuwn-1-xvrg-g lucuronide Not Detected Cutoff: 100 ng/mL 3 11:35 PM CDT [facility] Comment:Metabolite of hydrom orphone Oxycodone Not Detected Cutoff: 25 ng/mL 3 11:35 PM CDT [facility] Comment:Endocet, Percocet, O xycontin Noroxycodone Not Detected Cutoff: 25 ng/mL 3 11:35 PM CDT [facility] Comment:Metabolite of oxycod one Oxymorphone Not Detected Cutoff: 25 ng/mL 3 11:35 PM CDT [facility] Comment:Numorphan, Opana; Al so a metabolite of oxycodone. Patqfringoi-7-dnrt-glu curonide Not Detected Cutoff: 100 ng/mL 3 11:35 PM CDT [facility] Comment:Metabolite of oxymor phone and/or naloxone (nornaloxone) Noroxymorphone Not Detected Cutoff: 25 ng/mL 3 11:35 PM CDT [facility] Comment:Metabolite of oxymor phone and/or naloxone (nornaloxone) Fentanyl Not Detected Cutoff: 2 ng/mL 3 11:35 PM CDT [facility] Comment:Actiq, Duragesic, Fe ntora Norfentanyl Not Detected Cutoff: 2 ng/mL 3 11:35 PM CDT [facility] Comment:Metabolite of fentan yl Meperidine Not Detected Cutoff: 25 ng/mL 3 11:35 PM CDT [facility] Comment:Demerol Normeperidine Not Detected Cutoff: 25 ng/mL 3 11:35 PM CDT [facility] Comment:Metabolite of meperi dine Naloxone Not Detected Cutoff: 25 ng/mL 3 11:35 PM CDT [facility] Comment:Narcan Bfswoqtm-6-lfxf-glucur onide Not Detected Cutoff: 100 ng/mL 3 11:35 PM CDT [facility] Comment:Metabolite of naloxo ne Methadone Not Detected Cutoff: 25 ng/mL 3 11:35 PM CDT [facility] Comment:Dolophine EDDP Not Detected Cutoff: 25 ng/mL 3 11:35 PM CDT [facility] Comment:Metabolite of methad one Propoxyphene Not Detected Cutoff: 25 ng/mL 3 11:35 PM CDT [facility] Comment:Darvon, Darvocet Norpropoxyphene Not Detected Cutoff: 25 ng/mL 3 11:35 PM CDT [facility] Comment:Metabolite of propox yphene Tramadol Present(A) Cutoff: 25 ng/mL 3 11:35 PM CDT [facility] Comment:Tradol, Ultram, Ultr acet O-desmethyltramadol Present(A) Cutoff: 25 ng/mL 3 11:35 PM CDT [facility] Comment:Metabolite of tramad ol Tapentadol Not Detected Cutoff: 25 ng/mL 3 11:35 PM CDT [facility] Comment:Nucynta N-desmethyltapentadol Not Detected Cutoff: 50 ng/mL 3 11:35 PM CDT [facility] Comment:Metabolite of tapent adol Ubgkkwwgkj-pntz-jvxdew onide Not Detected Cutoff: 100 ng/mL 3 11:35 PM CDT [facility] Comment:Metabolite of tapent adol Buprenorphine Not Detected Cutoff: 5 ng/mL 3 11:35 PM CDT [facility] Comment:Buprenex, Suboxone Norbuprenorphine see below Cutoff: 5 ng/mL 3 11:35 PM CDT [facility] Comment: Metabolite of buprenorphine Unknown interfering substance present; unable to obtain results. Norbuprenorphine glucuronide Not Detected Cutoff: 20 ng/mL 3 11:35 PM CDT [facility] Comment:Metabolite of bupren orphine Opioid Interpretation Test detected the presence of tramadol and its metabolite (O-desmethyltrama dol). Suspect use of tramadol within the past three days. 3 11:35 PM CDT [facility] Comment: ----ADDITIONAL INFORMATION---- This test was developed and its performance characteristics determined by [facility] in a manner consistent with CLIA requirements. This test has not been cleared or approved by the U.S. Food and Drug Administration. Alprazolam Not Detected Cutoff: 10 ng/mL 3 1:34 PM CDT [facility] Comment:Xanax Alpha-Hydroxyalprazola m Not Detected Cutoff: 10 ng/mL 3 1:34 PM CDT [facility] Comment:Metabolite of Alpraz olam Alpha-Hydroxyalprazola m Glucuronide Not Detected Cutoff: 50 ng/mL 3 1:34 PM CDT [facility] Comment:Metabolite of Alpraz olam Chlordiazepoxide Not Detected Cutoff: 10 ng/mL 3 1:34 PM CDT [facility] Comment:Librium Clobazam Not Detected Cutoff: 10 ng/mL 3 1:34 PM CDT [facility] Comment:Frisium, Onfi N-Desmethylclobazam Not Detected Cutoff: 200 ng/mL 3 1:34 PM CDT [facility] Comment:Metabolite of Clobaz am Clonazepam Not Detected Cutoff: 10 ng/mL 3 1:34 PM CDT [facility] Comment:Klonopin, Rivotril 7-aminoclonazepam Not Detected Cutoff: 10 ng/mL 3 1:34 PM CDT [facility] Comment:Metabolite of Clonaz epam Diazepam Not Detected Cutoff: 10 ng/mL 3 1:34 PM CDT [facility] Comment:Valium Nordiazepam Not Detected Cutoff: 10 ng/mL 3 1:34 PM CDT [facility] Comment:Metabolite of Chlord iazepoxide, Diazepam, or Prazepam. Flunitrazepam Not Detected Cutoff: 10 ng/mL 3 1:34 PM CDT [facility] Comment:Rohypnol 7-aminoflunitrazepam Not Detected Cutoff: 10 ng/mL 3 1:34 PM CDT [facility] Comment:Metabolite of Flunit razepam Flurazepam Not Detected Cutoff: 10 ng/mL 3 1:34 PM CDT [facility] Comment:Dalmane 2-Hydroxy Ethyl Flurazepam Not Detected Cutoff: 10 ng/mL 3 1:34 PM CDT [facility] Comment:Metabolite of Fluraz epam Lorazepam Not Detected Cutoff: 10 ng/mL 3 1:34 PM CDT [facility] Comment:Ativan Lorazepam Glucuronide Not Detected Cutoff: 50 ng/mL 3 1:34 PM CDT [facility] Comment:Metabolite of Loraze mansi Midazolam Not Detected Cutoff: 10 ng/mL 3 1:34 PM CDT [facility] Comment:Versed Alpha-Hydroxy Midazolam Not Detected Cutoff: 10 ng/mL 3 1:34 PM CDT [facility] Comment:Metabolite of Midazo goldberg Oxazepam Not Detected Cutoff: 10 ng/mL 3 1:34 PM CDT [facility] Comment:Serax; Also a metabo lite of Chlordiazepoxide, Diazepam, or Temazepam. Oxazepam Glucuronide Not Detected Cutoff: 50 ng/mL 3 1:34 PM CDT [facility] Comment:Metabolite of Oxazep am Prazepam Not Detected Cutoff: 10 ng/mL 3 1:34 PM CDT [facility] Comment:Centrax Temazepam Not Detected Cutoff: 10 ng/mL 3 1:34 PM CDT [facility] Comment:Restoril; Also a met abolite of Diazepam. Temazepam Glucuronide Not Detected Cutoff: 50 ng/mL 3 1:34 PM CDT [facility] Comment:Metabolite of Temaze mansi Triazolam Not Detected Cutoff: 10 ng/mL 3 1:34 PM CDT [facility] Comment:Halcion Alpha-Hydroxy Triazolam Not Detected Cutoff: 10 ng/mL 3 1:34 PM CDT [facility] Comment:Metabolite of Triazo goldberg Zolpidem Not Detected Cutoff: 10 ng/mL 3 1:34 PM CDT [facility] Comment:Ambien Zolpidem Kllmkx-6-Jzicplhnfc acid Not Detected Cutoff: 10 ng/mL 3 1:34 PM CDT [facility] Comment:Metabolite of Zolpid em Benzodiazepine Interpretation No benzodiazepines were detected. The absence of expected drug(s) and/or drug metabolite(s) may indicate non-compliance, altered pharmacokinetics, inappropriate timing of specimen collection relative to drug administration, diluted/adulterat ed urine, or limitations of testing. 3 1:34 PM CDT [facility] Comment: ----ADDITIONAL INFORMATION---- This test was developed and its performance characteristics determined by [facility] in a manner consistent with CLIA requirements. This test has not been cleared or approved by the U.S. Food and Drug Administration. Methamphetamine Not Detected Cutoff: 100 ng/mL 3 12:14 PM CDT [facility] Comment:Desoxyn Amphetamine Not Detected Cutoff: 100 ng/mL 3 12:14 PM CDT [facility] Comment: Dyanavel XR, Adzenys ER, Adderall, Vyvanse; Also a metabolite of methamphetamine 3,4-methylenedioxymeth amphetamine (MDMA) Not Detected Cutoff: 100 ng/mL 3 12:14 PM CDT [facility] 3,3-zfdvftmbyuxufo-W-e thylamphetamine (MDEA) Not Detected Cutoff: 100 ng/mL 3 12:14 PM CDT [facility] 3,4-methylenedioxyamph etamine (MDA) Not Detected Cutoff: 100 ng/mL 3 12:14 PM CDT [facility] Comment:Also a metabolite of MDMA and/or MDEA Ephedrine Not Detected Cutoff: 100 ng/mL 3 12:14 PM CDT [facility] Pseudoephedrine Not Detected Cutoff: 100 ng/mL 3 12:14 PM CDT [facility] Comment:Sudafed Phentermine Not Detected Cutoff: 100 ng/mL 3 12:14 PM CDT [facility] Comment:Adipex-P, Lomaira, Q symia Phencyclidine (PCP) Not Detected Cutoff: 20 ng/mL 3 12:14 PM CDT [facility] Methylphenidate Not Detected Cutoff: 20 ng/mL 3 12:14 PM CDT [facility] Comment:Ritalin, Concerta Ritalinic acid Not Detected Cutoff: 100 ng/mL 3 12:14 PM CDT [facility] Comment:Metabolite of methyl phenidate Stimulant Interpretation No stimulants were detected. The absence of expected drug(s) and/or drug metabolite(s) may indicate non-compliance, altered pharmacokinetics, inappropriate timing of specimen collection relative to drug administration, diluted/adulterat ed urine, or limitations of testing. 12:14 PM [facility] Comment: ----ADDITIONAL INFORMATION---- This test was developed and its performance characteristics determined by [facility] in a manner consistent with CLIA requirements. This test has not been cleared or approved by the U.S. Food and Drug Administration. Urine (Urine, Midstream) 02/21/2023 2:36 PM CDT 02/21/2023 10:09 PM CDT Stefan Salomon M.D. LAB URINE ORDERABLE S [facility] [address] [place] [address] [facility] [address] [place] [address] [facility] [address] [place] [address] [place] [address] documented in this encounter Visit Diagnoses Diagnosis Chronic Pain Syndrome Polyarthralgia Degeneration Disc Cervical documented in this encounter Additional Health Concerns Assessment Noted Time PHQ-9 Depression Total Score: 0 07/09/19 23 8:29 AM CORNER CUTTER documented as of this encounter Care Teams Carding Machine Operator Relationship Specialty Start Date End Date Stefan Salomon M.D. [address] [place] [phone] PCP - General Family Medicine 07/09/22 Anticoagulation Team 07/09/22 documented as of this encounter
--- OUTSIDE RECORDS SUMMARY | 2023-06-11 08:05 | XMS_ITS | Encounter Summary ---
Author Name Unknown Organization [facility] Address [address] [place] [address] Care Team Providers Care Specifications Checker Name Role Phone Stefan Salomon M.D. Primary Care Provider [phone] Reason for Visit * Reason Comments Med Refill Encounter Details Date Type Department Care Team (Late st Contact Info) Description 03/20/2023 Refill Department of Family Medicine, [facility], in [place], [place] [address] [place] [phone] Yue Alonso M.D. [address] [place] [phone] Med Refill Social History Tobacco Use Types [...] week 07/09/2022 How often do you attend restoration or rastafari serv ices? Never 07/09/2022 Do you belong to any clubs o r organizations such as restoration groups, unions, fraternal or athletic groups, or [...] file Gender Identity Male 07/02/2017 9:12 AM PHARMACY SERVICES REPRESENTATIVE Sexual Orientation Straight 07/02/2017 9: 12 AM PHARMACY SERVICES REPRESENTATIVE documented as of this encounter Plan of Treatment Upcoming Encounters Date Type Department Care Team (Latest Contact Info) Description 06/12/2023 4:15 PM PHARMACY SERVICES REPRESENTATIVE Office Visit Department of Family Medicine, [facility], in [address] [phone] Stefan Salomon M.D. [address] [place] [phone] Discharge Disposition: Home or Self Care 06/21/2023 8:50 AM PHARMACY SERVICES REPRESENTATIVE Appointment Department of Laboratory Medicine in [address] [phone] Stefan Salomon M.D. [address] [place] [phone] 06/21/2023 9:30 AM PHARMACY SERVICES REPRESENTATIVE Anticoagulation Visit Department of Anticoagulation in [address] [phone] Stefan Salomon M.D. [address] [place] [phone] documented as of this encounter Visit Diagnoses Not on filedocumented in this encounter Additional Health Concerns Assessment Noted Time PHQ-9 Depression Total Score: 0 07/09/19 23 8:29 AM PHARMACY SERVICES REPRESENTATIVE documented as of this encounter Care Teams Specifications Checker Relationship Specialty Start Date End Date Stefan Salomon M.D. [address] [place] [phone] PCP - General Family Medicine 07/09/22 Anticoagulation Team 07/09/22 documented as of this encounter
--- OUTSIDE RECORDS SUMMARY | 2023-06-11 08:05 | XMS_ITS | Encounter Summary ---
Author Name Unknown Organization [facility] Address [address] [place] [address] Care Team Providers Care Bill Collector Name Role Phone Stefan Salomon M.D. 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 [address] [phone] [facility] Referral ID Status Reason Start Date Expiration Date V isits Requested Visits Authorized [id number] Authorized 02/01/2023 01/31/2026 300 300 Encounter Details Date Type Department Care Team (Latest Contact Info) Description 03/14/2023 9:30 AM CDT Anticoagulation Visit Department of Anticoagulation in [place], [place] [address] [place] [phone] Stefan Salomon M.D. [address] [place] [phone] Anticoagulant Therapy [Z79.01]; Mutation Factor V [...] week 07/09/2022 How often do you attend scientology or lutheran serv ices? Never 07/09/2022 Do you belong to any clubs o r organizations such as scientology groups, unions, fraternal or athletic groups, or [...] Answer Date Recorded PHQ-2 Score 0 07/09/2022 [facility] [employer] [facility] - Occupational Stress [...] place to sleep or slept in a group home (including now)? No 07/09/2022 Depression Answer [...] file Gender Identity Male 07/02/2017 9:12 AM TESTER VIBRATOR EQUIPMENT Sexual Orientation Straight 07/02/2017 9: 12 AM TESTER VIBRATOR EQUIPMENT documented as of this encounter Patient Instructions * Patient Instructions* Fer Barr M.P.H., R.N. - 03/14/2023 9:30 AM CDT Your next INR will be 04/22/23. You will need to call the Anticoagulation Program for warfarin dosing at the scheduled time for your nurse visit, as indicated on your Patient Appointment Guide (PAG). To reschedule your appointment or for questions about your warfarin, please call Primary Care Anticoagulation Program at [phone] from 7:30 am to 4:30 pm. Saturday-Saturday [...] if you start any herbal or other giov-kpv-ljmdnnq product (check with your doctor, a nurse, or pharmacist). If you change your diet significantly. If you decide to stop or start using tobacco or alcohol. If you notice unusual bruising or bleeding. If you notice dark, tarry, or bright red stools or blood in your urine. If you have a painful and swollen calf. documented in this encounter Progress Notes * Fer Barr M.P.H., R.N. - 03/14/2023 9:30 AM CDT Warfarin Maintenance Nursing Protocol Goal Range 2.0-3.0 [...] offered patient return for follow-up INR in 6 weeks as 2 consecutive outpatient INRs within range. Additional Info: None Previous INR was therapeutic. Today???s INR is Therapeutic. Dosing and follow up recommendation: Protocol dosing range for INR 2.0-3.0: No change in weekly dose. Currently bridging? no. Next INR in 6 weeks per testing interval extension eligibility. Additional dosing or follow-up information: None. Pt is on injectable anticoagulant: No. Plan used: Protocol. See Anticoagulation Track Calendar for dosing and plan details. Anticoagulation Visit Summary: Patient repeats back dosing instructions, date of next INR, and has no further questions at this time. Total time spent with patient: 15 minutes documented in this encounter Plan of Treatment Upcoming Encounters Date Type Department Care Team (Latest Contact Info) Description 06/12/2023 4:15 PM TESTER VIBRATOR EQUIPMENT Office Visit Department of Family Medicine, [facility], in [address] [phone] Stefan Salomon M.D. [address] [place] [phone] Discharge Disposition: Home or Self Care 06/21/2023 8:50 AM TESTER VIBRATOR EQUIPMENT Appointment Department of Laboratory Medicine in [address] [phone] Stefan Salomon M.D. [address] [place] [phone] 06/21/2023 9:30 AM TESTER VIBRATOR EQUIPMENT Anticoagulation Visit Department of Anticoagulation in [address] [phone] Stefan Salomon M.D. [address] [place] [phone] documented as of this encounter Visit Diagnoses Diagnosis Anticoagulant Therapy [Z79.01] Mutation Factor V Leiden Heterozygous (HCC) Monitoring For Therapeutic Drug Therapy [Z51.81] Thrombosis Deep Vein Personal History documented in this encounter Additional Health Concerns Assessment Noted Time PHQ-9 Depression Total Score: 0 07/09/19 23 8:29 AM TESTER VIBRATOR EQUIPMENT documented as of this encounter Care Teams Bill Collector Relationship Specialty Start Date End Date Stefan Salomon M.D. [address] [place] [phone] PCP - General Family Medicine 07/09/22 Anticoagulation Team 07/09/22 documented as of this encounter
--- OUTSIDE RECORDS SUMMARY | 2023-06-11 08:05 | XMS_ITS | Encounter Summary ---
Author Name Unknown Organization [facility] Address [address] [place] [address] Care Team Providers Care Contract Consultant Name Role Phone Stefan Salomon M.D. Primary Care Provider [phone] Reason for Referral * Outpatient (Routine) - Authorized Specialty Diagnoses / Procedures Referred By Contac t Referred To Contact Anticoagulation Diagnoses Anticoagulant Therapy Mutation Factor V Leiden Heterozygous (HCC) Monitoring For Therapeutic Drug Therapy Thrombosis Deep Vein Personal History Stefan Salomon M.D. [address] [place] [phone] [facility] Referral ID Status Reason Start Date Expiration Date V isits Requested Visits Authorized [id number] Authorized 02/01/2023 01/31/2026 300 300 Reason for Visit * Outpatient (Routine) - Closed Specialty Diagnoses / Procedures Referred By Contac t Referred To Contact Anticoagulation Stefan Salomon M.D. [address] [place] [phone] [facility] Referral ID Status Reason Start Date Expiration Date Visits Re quested Visits Authorized [id number] Closed 01/31/2023 01/30/2026 1 1 Encounter Details Date Type Department Care Team (Latest Contact Info) Description 02/01/2023 8:00 AM CDT Anticoagulation Visit Department of Anticoagulation in [place], [place] [address] [place] [address] Stefan Salomon M.D. [address] [place] [phone] Anticoagulant Therapy [Z79.01] (Primary Dx); Mutation Factor [...] How often do you attend restoration or mu-ism serv ices? Never 07/09/2022 Do you belong [...] Answer Date Recorded PHQ-2 Score 0 07/09/2022 [facility] - Occupational Stress Questionnaire Answer Date Recorded [...] file Gender Identity Male 07/02/2017 9:12 AM CRANE HELPER Sexual Orientation Straight 07/02/2017 9: 12 AM CRANE HELPER documented as of this encounter Patient Instructions * Patient Instructions* Brittany Solomon R.N. - 02/01/2023 8:00 AM CDT Your next INR will be 03/14/23. If you have a finger stick INR please call the Anticoagulation clinic about 40 minutes after your lab. If you have a lab drawn from your arm please call the Anticoagulation clinic the next day at your scheduled appointment time. These appointments are necessary to review your INR result and future Warfarin dosing. To reschedule your appointment or for questions about your warfarin, please call Primary Care Anticoagulation Program at [phone] from 7:30 am to 4:30 pm. Saturday-Saturday [...] if you start any herbal or other rljq-sev-opgokvx product (check with your doctor, a nurse, or pharmacist). If you change your diet significantly. If you decide to stop or start using tobacco or alcohol. If you notice unusual bruising or bleeding. If you notice dark, tarry, or bright red stools or blood in your urine. If you have a painful and swollen calf. documented in this encounter Progress Notes * Brittany Solomon R.N. - 02/01/2023 8:00 AM CDT Warfarin Maintenance Nursing Protocol Goal Range 2.0-3.0 (version approved 07/2021) Visit Type: Telephone Primary reason for visit: Routine f/u OR f/u per previous visit recommendations Information provided by:patient INR result: 2.8 Goal range: 2.0-3.0 Inclusion Criteria: All inclusion criteria met. Proceeded to exclusion criteria. Exclusion Criteria: Section 1: No Section 1 exclusion criteria, proceeded to Section 2. Section 2: No Section 2 exclusion criteria, proceeded to screening criteria. Screening Criteria: All screening criteria negative. Testing interval extension evaluation: INR in range today? Yes, but last INR was out of range. Patient is not eligible for testing interval extension. Proceeded to maintenance warfarin dosing and follow-up. Additional Info: None Previous INR was supratherapeutic. Today???s INR is Therapeutic. Dosing and follow up recommendation: Protocol dosing range for INR 2.0-3.0: No change in weekly dose. Currently bridging? no. Next INR in twice the amount of time since last INR (max duration is 4-6 weeks): 6 weeks. Additional dosing or follow-up information: None. Pt is on injectable anticoagulant: No. Plan used: Protocol. See Anticoagulation Track Calendar for dosing and plan details. Anticoagulation Visit Summary: Patient repeats back dosing instructions, date of next INR, and has no further questions at this time. Total time spent with patient: N/A documented in this encounter Miscellaneous Notes * Addendum Note - Brittany Solomon R.N. - 02/01/2023 8:00 AM CDTAddended by: BRITTANY SOLOMON on: 02/01/2023 08:39 AM Modules accepted: Orders documented in this encounter Plan of Treatment Upcoming Encounters Date Type Department Care Team (Latest Contact Info) Description 06/12/2023 4:15 PM CRANE HELPER Office Visit Department of Family Medicine, [facility], in [address] [phone] Stefan Salomon M.D. [address] [place] [phone] Discharge Disposition: Home or Self Care 06/21/2023 8:50 AM CRANE HELPER Appointment Department of Laboratory Medicine in [address] [phone] Stefan Salomon M.D. [address] [place] [phone] 06/21/2023 9:30 AM CRANE HELPER Anticoagulation Visit Department of Anticoagulation in [place] [address] [place] [address] Stefan Salomon M.D. [address] [place] [phone] Scheduled Referrals Name Type Priority Associated Diagnoses Order Schedule Anticoagulation nurse visit (clinic) Outpatient Referral Routine Anticoagulant Therapy [Z79.01] Mutation Factor V Leiden Heterozygous (HCC) Monitoring For Therapeutic Drug Therapy [Z51.81] Thrombosis Deep Vein Personal History 300 Occurrences starting 02/01/2023 until 02/01/2026 documented as of this encounter Results * [...] POCT ORDERABLES - DEVICE Performing Organization Address City/State/[facility] Co de Phone Number [facility] [address] [place] [phone], [facility] in [address] [address] documented in this encounter Visit Diagnoses Diagnosis Anticoagulant Therapy [Z79.01]- Primary Mutation Factor V Leiden Heterozygous (HCC) Monitoring For Therapeutic Drug Therapy [Z51.81] Thrombosis Deep Vein Personal History documented in this encounter Additional Health Concerns Assessment Noted Time PHQ-9 Depression Total Score: 0 07/09/19 23 8:29 AM CRANE HELPER documented as of this encounter Care Teams Contract Consultant Relationship Specialty Start Date End Date Stefan Salomon M.D. [address] [place] [phone] PCP - General Family Medicine 07/09/22 Anticoagulation Team 07/09/22 documented as of this encounter
--- OUTSIDE RECORDS SUMMARY | 2023-06-11 08:05 | XMS_ITS | Encounter Summary ---
Author Name Unknown Organization [facility] Address [address] [place] [address] Care Team Providers Care Baking Factory Worker Name Role Phone Stefan Salomon M.D. Primary Care Provider [phone] Reason for Visit * Reason Comments Med Refill Encounter Details Date Type Department Care Team (Late st Contact Info) Description 02/26/2023 Refill Department of Family Medicine, [facility], in [address] [phone] Erin Humphrey M.D. [address] [place] [phone] Med Refill Social History Tobacco Use Types [...] week 07/09/2022 How often do you attend sikh or mormonism serv ices? Never 07/09/2022 Do you belong to any clubs o r organizations such as sikh groups, unions, fraternal or athletic groups, or [...] Answer Date Recorded PHQ-2 Score 0 07/09/2022 [facility] - Occupational [...] place to sleep or slept in a mcfp (including now)? No 07/09/2022 Depression Answer Date [...] file Gender Identity Male 07/02/2017 9:12 AM PHOTOCOMPOSING MACHINE OPERATOR Sexual Orientation Straight 07/02/2017 9: 12 AM PHOTOCOMPOSING MACHINE OPERATOR documented as of this encounter Plan of Treatment Upcoming Encounters Date Type Department Care Team (Latest Contact Info) Description 06/12/2023 4:15 PM PHOTOCOMPOSING MACHINE OPERATOR Office Visit Department of Family Medicine, [facility], in [address] [phone] Stefan Salomon M.D. [address] [place] [phone] Discharge Disposition: Home or Self Care 06/21/2023 8:50 AM PHOTOCOMPOSING MACHINE OPERATOR Appointment Department of Laboratory Medicine in [address] [phone] Stefan Salomon M.D. [address] [place] [phone] 06/21/2023 9:30 AM PHOTOCOMPOSING MACHINE OPERATOR Anticoagulation Visit Department of Anticoagulation in [place], [place] [address] [place] [address] Stefan Salomon M.D. [address] [place] [phone] documented as of this encounter Visit Diagnoses Diagnosis Chronic Pain Syndrome Degeneration Disc Cervical Polyarthralgia documented in this encounter Additional Health Concerns Assessment Noted Time PHQ-9 Depression Total Score: 0 07/09/19 23 8:29 AM PHOTOCOMPOSING MACHINE OPERATOR documented as of this encounter Care Teams Baking Factory Worker Relationship Specialty Start Date End Date Stefan Salomon M.D. [address] [place] [phone] PCP - General Family Medicine 07/09/22 Anticoagulation Team 07/09/22 documented as of this encounter
--- OUTSIDE RECORDS SUMMARY | 2023-06-11 08:05 | XMS_ITS | Encounter Summary ---
Author Name Unknown Organization [facility] Address [address] [place] [address] Care Team Providers Care Aircraft Armament Mechanic Name Role Phone Stefan Salomon M.D. Primary Care Provider [phone] Reason for Visit * Reason Comments Med Management Tramadol no concerns refills * Outpatient (Routine) - Closed Specialty Diagnoses / Procedures Referred By Piero t Referred To Contact Family Medicine Stefan Salomon M.D. [address] [place] [phone] [facility] Region Referral ID Status Reason Start Date Expiration Date Visits Re quested Visits Authorized [id number] Closed 11/01/2022 10/31/2025 1 1 Encounter Details Date Type Department Care Team (Late st Contact Info) Description 02/21/2023 3:15 PM CDT Office Visit Department of Family Medicine, [facility], in [address] [phone] Stefan Salomon M.D. [address] [place] [phone] Chronic Pain Syndrome (Primary Dx); Degeneration Disc Cervical; Polyarthralgia; Hypertension Essential Primary; Hyperlipidemia Discharge Disposition: Home or Self Care Social [...] week 07/09/2022 How often do you attend shinto or religion serv ices? Never 07/09/2022 Do you belong to any clubs o r organizations such as shinto groups, unions, fraternal or athletic groups, or [...] Answer Date Recorded PHQ-2 Score 0 07/09/2022 [facility] of Occupat ional Health - Occupational Stress [...] place to sleep or slept in a fdc (including now)? No 07/09/2022 Depression Answer Date [...] file Gender Identity Male 07/02/2017 9:12 AM FLARE STITCHER Sexual Orientation Straight 07/02/2017 9: 12 AM FLARE STITCHER documented as of this encounter Last Filed Vital Signs Vital Sign Reading Time Taken Comments Blood Pressure 136/71 02/21/2023 3:10 PM CDT Pulse 69 02/21/2023 3:10 PM CDT Temperature 36.9 ??C (98.4 ??F) 02/21/2023 3:10 PM CD T Respiratory Rate - - Oxygen Saturation 96% 02/21/2023 3:10 PM CDT Inhaled Oxygen Concentration - - Weight 90 kg (198 lb 6.6 oz) 02/21/2023 3:10 PM CDT Height - - Body Mass Index 28.89 08/01/2022 9:59 AM FLARE STITCHER documented in this encounter Progress Notes * Stefan Salomon M.D. - 02/21/2023 3:15 PM CDT SUBJECTIVE CHIEF COMPLAINT / REASON FOR VISIT Teo is a 72 y.o. male who presents for evaluation of Med Management (Tramadol no concerns refills). HISTORY OF PRESENT ILLNESS Teo is a pleasant 72 y.o. male who presents to clinic today for ongoing management of chronic pain. He suffers from bilateral lower extremity leg pain that has been treated since 1992. 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 He is currently taking tramadol with good results. He states that allows him to achieve his activities of daily living. Without the medication he is a very hard time walking. No side effects reported. No other active concerns at today's visit. The following portions of the patient's history were reviewed and updated as appropriate: allergies, current medications, family history, medical history, social history, surgical history, and problem list. Brief Review of Systems: A brief review of systems was negative except for that mentioned in the history of present of illness. OBJECTIVE PHYSICAL EXAM BP 136/71 (BP Location: Left arm, Patient Position: Sitting, Cuff Size: Regular) Pulse 69 Temp 36.9 ??C (Temporal) Wt 90 kg SpO2 96% BMI 28.89 kg/m?? Body mass index is 28.89 kg/m??. GENERAL: Patient is in no distress. Capable of full communication without difficulty. Patient is polite and cooperative. HEART: Regular rate and rhythm. No murmurs, gallops or rubs noted. LUNGS: Clear to auscultation bilaterally. No expiratory wheeze. No accessory muscles of respirationnoted. EXTREMITIES: Bilateral leg compression wraps in place. Decreased capillary refill bilateral. NEURO: Alert and oriented x3, nonfocal, moving all 4 extremities. CN II-XII grossly intact. PSYCH: Affect is appropriate ASSESSMENT / PLAN #1 Chronic Pain Syndrome #2 Degeneration Disc Cervical #3 Polyarthralgia Reviewed history in detail with patient at today's visit. Patient getting benefit from tramadol at current doses without side effects or aberrant behavior. Will continue as prescribed. Follow-up in six months time for ongoing management. #4 Hypertension Essential Primary Blood pressure at goal. Laboratory evaluation requested for April. #5 Hyperlipidemia Tolerating statins well. Laboratory evaluation requested in April. Total time 32 minutes. Patient was instructed to follow up in primary care if symptoms are worsening or there is no improvement over the next several days. Plan was discussed with patient and is in agreement with plan. All questions were answered, side effects of any/all new medications were discussed. Patient left in no acute distress. Ready to learn. No apparent learning barriers were identified. Learning preferences include listening. Explained diagnosis and treatment plan. Patient/Child/Caregiver expressed understanding of the content. Stefan Salomon M.D. documented in this encounter Plan of Treatment Upcoming Encounters Date Type Department Care Team (Latest Contact Info) Description 06/12/2023 4:15 PM FLARE STITCHER Office Visit Department of Family Medicine, [facility], in [address] [phone] Stefan Salomon M.D. [address] [place] [phone] Discharge Disposition: Home or Self Care 06/21/2023 8:50 AM FLARE STITCHER Appointment Department of Laboratory Medicine in [address] [phone] Stefan Salomon M.D. [address] [place] [phone] 06/21/2023 9:30 AM FLARE STITCHER Anticoagulation Visit Department of Anticoagulation in [place], [place] [address] [place] [phone] Stefan Salomon M.D. [address] [phone] documented as of this encounter Results * Lipid Panel (04/19/2023 7:39 AM FLARE STITCHER) Triglycerides 113 mg/dL 04/19/2023 11:48 AM FLARE STITCHER [facility] Comment: ----REFERENCE VALUE---- Normal: <150 mg/dL Borderline High: 150-199 mg/dL High: 200-499 mg/dL Very High: > or =500 mg/dL Cholesterol, Total 144 mg/dL 2022 11:48 AM FLARE STITCHER [facility] Comment: ----REFERENCE VALUE---- Desirable: < 200 mg/dL Borderline High: 200 - 239 mg/dL High: > or = 240 mg/dL Cholesterol, LDL, Calculated 76 mg/dL 04/19/2023 12:10 PM FLARE STITCHER [facility] Comment: ----REFERENCE VALUE---- Desirable: <100 mg/dL Above Desirable: 100-129 mg/dL Borderline High: 130-159 mg/dL High: 160-189 mg/dL Very High: >=190 mg/dL ----ADDITIONAL INFORMATION---- LDL cholesterol calculated using the Sosa/NIH equation. Cholesterol, HDL 48 >=40 mg/dL 04/19/20 12:10 PM FLARE STITCHER [facility] Cholesterol, Non-HDL, Calculated 96 mg/dL 04/19/2023 12:10 PM FLARE STITCHER [facility] Comment: ----REFERENCE VALUE---- Desirable: <130 mg/dL Above Desirable: 130-159 mg/dL Borderline High: 160-189 mg/dL High: 190-219 mg/dL Very High: > or =220 mg/dL Fasting (8 HR or more) No 04/19/2023 7:40 AM FLARE STITCHER [facility] Blood (Blood, Venous) 04/19/2023 7:39 AM FLARE STITCHER 04/19/2023 7:40 AM FLARE STITCHER Stefan Salomon M.D. LAB BLOOD ADD-ON [address] [address], [facility] CN[facility] in [address] [address] * Basic Metabolic Panel (04/19/2023 7:39 AM FLARE STITCHER) [facility] Potassium, P 4.1 3.6 - 5.2 mmol/L 04/19/2023 11:48 AM FLARE STITCHER [facility] Sodium, P 138 135 - 145 mmol/L 04/19/2023 11:48 AM FLARE STITCHER [facility] Chloride, P 102 98 - 107 mmol/L 04/19/2023 11:48 AM FLARE STITCHER [facility] Bicarbonate, P 23 22 - 29 mmol/L 04/19/2023 11:48 AM FLARE STITCHER [facility] Anion Gap, P 13 7 - 15 04/19/2023 11:48 AM FLARE STITCHER [facility] BUN (Blood Urea Nitrogen), P 21 8 - 24 mg/dL 04/19/2023 11:48 AM FLARE STITCHER [facility] Creatinine 0.87 0.74 - 1.35 mg/dL 04/19/2023 11:48 AM FLARE STITCHER [facility] Estimated GFR (eGFR) >90 >=60 mL/min/BSA 04/19/2023 11:48 AM FLARE STITCHER [facility] Comment: Estimated GFR calculated using the 2020 CKD_EPI creatinine equation. Calcium, Total, P 9.1 8.8 - 10.2 mg/dL 04/19/2023 11:48 AM FLARE STITCHER CNFL Glucose, P 103 70 - 140 mg/dL 04/19/2023 11:48 AM FLARE STITCHER CN[facility] Blood (Blood, Venous) 04/19/2023 7:39 AM FLARE STITCHER 04/19/2023 7:40 AM FLARE STITCHER Stefan Salomon M.D. LAB BLOOD ADD-ON [facility] [address] [place] [phone], [facility] in [address] [address] documented in this encounter Visit Diagnoses Diagnosis Chronic Pain Syndrome- Primary Degeneration Disc Cervical Polyarthralgia Hypertension Essential Primary Hyperlipidemia documented in this encounter Additional Health Concerns Assessment Noted Time PHQ-9 Depression Total Score: 0 07/09/19 23 8:29 AM FLARE STITCHER documented as of this encounter Care Teams Aircraft Armament Mechanic Relationship Specialty Start Date End Date Stefan Salomon M.D. [address] [place] [address] [place] [phone] PCP - General Family Medicine 07/09/22 Anticoagulation Team 07/09/22 documented as of this encounter
--- OUTSIDE RECORDS SUMMARY | 2023-06-11 08:05 | XMS_ITS | Encounter Summary ---
Author Name Unknown Organization [facility] Address [address] [place] [address] Care Team Providers Care Manager Marketing Name Role Phone Stefan Salomon M.D. Primary Care Provider [phone] Encounter Details Date Type Department Care Team (Latest Contact Info) Description 04/19/2023 7:20 AM BANQUET WAITER/WAITRESS - 04/19/2023 7:32 AM BANQUET WAITER/WAITRESS Hospital Encounter Department of Laboratory Medicine in [address] [phone] Stefan Salomon M.D. [address] [place] [phone] Hypertension Essential Primary; Hyperlipidemia Discharge Disposition: Home [...] week 07/09/2022 How often do you attend roman catholic or taoism serv ices? Never 07/09/2022 Do you belong to any clubs o r organizations such as roman catholic groups, unions, fraternal or athletic groups, or [...] Answer Date Recorded PHQ-2 Score 0 07/09/2022 [facility] - Occupational Stress Questionnaire Answer [...] file Gender Identity Male 07/02/2017 9:12 AM BANQUET WAITER/WAITRESS Sexual Orientation Straight 07/02/2017 9: 12 AM BANQUET WAITER/WAITRESS documented as of this encounter Medications at [...] (Latest Contact Info) Description 06/12/2023 4:15 PM BANQUET WAITER/WAITRESS Office Visit Department of Family Medicine, [facility], in [place] [phone] Stefan Salomon M.D. [address] [phone] Discharge Disposition: Home or Self Care 06/21/2023 8:50 AM BANQUET WAITER/WAITRESS Appointment Department of Laboratory Medicine in [address] [phone] Stefan Salomon M.D. [address] [place] [phone] 06/21/2023 9:30 AM BANQUET WAITER/WAITRESS Anticoagulation Visit Department of Anticoagulation in [place], [place] [address] [place] [address] Stefan Salomon M.D. [address] [place] [phone] documented as of this encounter Procedures Procedure Name Priority Date/Time Associated Diagnosis Comments LIPID PANEL, S Routine 04/19/2023 7:39 AM BANQUET WAITER/WAITRESS Hyperlipidemia BASIC METABOLIC PANEL, S/P Routine 04/19/2023 7:39 AM BANQUET WAITER/WAITRESS Hypertension Essential Primary documented in this encounter Results * Lipid Panel (04/19/2023 7:39 AM BANQUET WAITER/WAITRESS) Triglycerides 113 mg/dL 04/19/2023 11:48 AM BANQUET WAITER/WAITRESS [facility] Comment: ----REFERENCE VALUE---- Normal: <150 mg/dL Borderline High: 150-199 mg/dL High: 200-499 mg/dL Very High: > or =500 mg/dL Cholesterol, Total 144 mg/dL 2022 11:48 AM BANQUET WAITER/WAITRESS [facility] Comment: ----REFERENCE VALUE---- Desirable: < 200 mg/dL Borderline High: 200 - 239 mg/dL High: > or = 240 mg/dL Cholesterol, LDL, Calculated 76 mg/dL 04/19/2023 12:10 PM BANQUET WAITER/WAITRESS [facility] Comment: ----REFERENCE VALUE---- Desirable: <100 mg/dL Above Desirable: 100-129 mg/dL Borderline High: 130-159 mg/dL High: 160-189 mg/dL Very High: >=190 mg/dL ----ADDITIONAL INFORMATION---- LDL cholesterol calculated using the Sosa/NIH equation. Cholesterol, HDL 48 >=40 mg/dL 04/19/20 12:10 PM BANQUET WAITER/WAITRESS [facility] Cholesterol, Non-HDL, Calculated 96 mg/dL 04/19/2023 12:10 PM BANQUET WAITER/WAITRESS [facility] Comment: ----REFERENCE VALUE---- Desirable: <130 mg/dL Above Desirable: 130-159 mg/dL Borderline High: 160-189 mg/dL High: 190-219 mg/dL Very High: > or =220 mg/dL Fasting (8 HR or more) No 04/19/2023 7:40 AM BANQUET WAITER/WAITRESS [facility] Blood (Blood, Venous) 04/19/2023 7:39 AM BANQUET WAITER/WAITRESS 04/19/2023 7:40 AM BANQUET WAITER/WAITRESS Stefan Salomon M.D. LAB BLOOD ADD-ON Performing Organization Address [facility]/State/ZIP Co de Phone Number [facility] [address] [place] [address], [facility] [place] [address] * Basic Metabolic Panel (04/19/2023 7:39 AM BANQUET WAITER/WAITRESS) Potassium, P 4.1 3.6 - 5.2 mmol/L 04/19/2023 11:48 AM BANQUET WAITER/WAITRESS [facility] Sodium, P 138 135 - 145 mmol/L 04/19/2023 11:48 AM BANQUET WAITER/WAITRESS [facility] Chloride, P 102 98 - 107 mmol/L 04/19/2023 11:48 AM BANQUET WAITER/WAITRESS [facility] Bicarbonate, P 23 22 - 29 mmol/L 04/19/2023 11:48 AM BANQUET WAITER/WAITRESS CN[facility] Anion Gap, P 13 7 - 15 04/19/2023 11:48 AM BANQUET WAITER/WAITRESS [facility] BUN (Blood Urea Nitrogen), P 21 8 - 24 mg/dL 04/19/2023 11:48 AM BANQUET WAITER/WAITRESS [facility] Creatinine 0.87 0.74 - 1.35 mg/dL 04/19/2023 11:48 AM BANQUET WAITER/WAITRESS CN[facility] Estimated GFR (eGFR) >90 >=60 mL/min/BSA 04/19/2023 11:48 AM BANQUET WAITER/WAITRESS [facility] Comment: Estimated GFR calculated using the 2020 CKD_EPI creatinine equation. Calcium, Total, P 9.1 8.8 - 10.2 mg/dL 04/19/2023 11:48 AM BANQUET WAITER/WAITRESS CN[facility] Glucose, P 103 70 - 140 mg/dL 04/19/2023 11:48 AM BANQUET WAITER/WAITRESS CN[facility] Blood (Blood, Venous) 04/19/2023 7:39 AM BANQUET WAITER/WAITRESS 04/19/2023 7:40 AM BANQUET WAITER/WAITRESS Stefan Salomon M.D. LAB BLOOD ADD-ON [facility] [address] [place] [phone], [facility] CNFL [facility] in [address] [address] documented in this encounter Visit Diagnoses Diagnosis Hypertension Essential Primary Hyperlipidemia documented in this encounter Additional Health Concerns Assessment Noted Time PHQ-9 Depression Total Score: 0 07/09/19 23 8:29 AM BANQUET WAITER/WAITRESS documented as of this encounter Care Teams Manager Marketing Relationship Specialty Start Date End Date Stefan Salomon M.D. [address] [place] [phone] PCP - General Family Medicine 07/09/22 Anticoagulation Team 07/09/22 documented as of this encounter
--- OUTSIDE RECORDS SUMMARY | 2023-06-11 08:06 | XMS_ITS | Encounter Summary ---
Author Name Unknown Organization [facility] Address [address] [place] [address] Care Team Providers Care Oval Or Circular Glass Cutter Name Role Phone Stefan Salomon M.D. Primary Care Provider [phone] Reason for Visit * Outpatient (Routine) - Canceled Specialty Diagnoses / Procedures Referred By Contdayana t Referred To Contact Anticoagulation Yue Alonso M.D. [address] [place] [address] [facility] Region Referral ID Status Reason Start Date Expiration Date V isits Requested Visits Authorized [id number] Canceled 11/14/2021 11/14/[phone] Encounter Details Date Type Department Care Team (Latest Contact Info) Description 12/14/2022 9:40 AM CDT Anticoagulation Visit Department of Anticoagulation in [place], [place] [address] [place] [address] Yue Alonso M.D. [address] [place] [phone] Anticoagulant Therapy (Primary Dx); Mutation Factor V Leiden Heterozygous (HCC); Monitoring For Therapeutic Drug Therapy; Thrombosis Deep Vein Personal History Social History [...] week 07/09/2022 How often do you attend yarsani or oriental orthodox serv ices? Never 07/09/2022 Do you belong to any clubs o r organizations such as yarsani groups, unions, fraternal or athletic groups, or [...] Recorded PHQ-2 Score 0 07/09/2022 [facility] [place] of Occupat ional Health - Occupational Stress [...] file Gender Identity Male 07/02/2017 9:12 AM NURSING SECRETARY Sexual Orientation Straight 07/02/2017 9: 12 AM NURSING SECRETARY documented as of this encounter Patient Instructions * Patient Instructions* Christen Alexander R.N. - 12/14/2022 9:40 AM CDT Your next INR will be 12/21/22. If you have a finger stick INR [...] please call Primary Care Anticoagulation Program at [phone] from 7:30 am to 4:30 pm. Saturday-Saturday [...] if you start any herbal or other [id number]-oyykqwd product (check with your doctor, a nurse, [...] Progress Notes * Christen Alexander R.N. - 12/14/2022 9:40 AM CDT Warfarin Maintenance Nursing Protocol Goal Range 2.0-3.0 (version approved 07/2021) Visit Type: Telephone Primary reason for visit: Routine f/u OR f/u per previous visit recommendations Information provided by:patient INR result: 1.8 Goal range: 2.0-3.0 Inclusion Criteria: All inclusion criteria met. Proceeded to exclusion criteria. Exclusion Criteria: Section 1: No Section 1 exclusion criteria, proceeded to Section 2. Section 2: No Section 2 exclusion criteria, proceeded to screening criteria. Screening Criteria: Current INR value has changed by greater than or equal to 1 since last INR check: yes. Dose change was made within last 7 days. Protocol does not apply. Provider input required. Additional Info: Patient states he had a lot of strawberries leading up to elevated INR reading on 12/11/22. Previous INR was therapeutic. Today???s INR is Subtherapeutic, Causes: See above positive screening criteria/additional information sections.. Dosing and follow up recommendation: Protocol does not apply based on positive screening criteria indicated above stating consult required. Consulted Anticoagulation [facility] for plan. Currently bridging: no. INR is subtherapeutic, reviewed need for bridging with provider. Bridging ordered? Yes, but patient declined due to cost. Additional dosing or follow-up information: Provider consulted: Essie Harris- Anticoagulation [facility] Pt is on injectable anticoagulant: No. Plan [...] (Latest Contact Info) Description 06/12/2023 4:15 PM NURSING SECRETARY Office Visit Department of Family Medicine, [facility], in [address] [phone] Stefan Salomon M.D. [address] [place] [phone] Discharge Disposition: Home or Self Care 06/21/2023 8:50 AM NURSING SECRETARY Appointment Department of Laboratory Medicine in [address] [phone] Stefan Salomon M.D. [address] [place] [phone] 06/21/2023 9:30 AM NURSING SECRETARY Anticoagulation Visit Department of Anticoagulation in [place] [address] [place] [address] Stefan Salomon M.D. [address] [place] [phone] documented as of this encounter Results * INR Reflex, POCT, Blood (12/21/2022 1:33 PM CDT) INR Reflex, POCT, B 2.5 12/21/2022 1:37 PM CDT [facility] Comment: ----ADDITIONAL INFORMATION---- Standard intensity warfarin therapeutic range: 2.0 to 3.0 ?? High intensity warfarin therapeutic range: 2.5 to 3.5 Blood (Blood, Capillary) 12/21/2022 1:33 PM CDT 12/21/2022 1:33 PM CDT Stefan Salomon M.D. LAB POCT ORDERABLES - DEVICE [facility] [address] [place] [phone], [facility] CNFL [facility] in [address] [address] documented in this encounter Visit Diagnoses Diagnosis Anticoagulant Therapy- Primary Mutation Factor V Leiden Heterozygous (HCC) Monitoring For Therapeutic Drug Therapy Thrombosis Deep Vein Personal History documented in this encounter Additional Health Concerns Assessment Noted Time PHQ-9 Depression Total Score: 0 07/09/19 8:29 AM NURSING SECRETARY documented as of this encounter Care Teams Oval Or Circular Glass Cutter Relationship Specialty Start Date End Date Stefan Salomon M.D. [address] [place] [phone] PCP - General Family Medicine 07/09/22 Anticoagulation Team 07/09/22 documented as of this encounter
--- OUTSIDE RECORDS SUMMARY | 2023-06-11 08:06 | XMS_ITS | Encounter Summary ---
Author Name Unknown Organization [facility] Address [address] [place] [address] Care Team Providers Care Quality Nurse Name Role Phone Stefan Salomon M.D. Primary Care Provider [phone] Encounter Details Date Type Department Care Team (Latest Contact Info) Description 12/21/2022 1:29 PM CDT - 12/21/2022 11:59 PM CDT Hospital Encounter Department of Laboratory Medicine in [address] [phone] Stefan Salomon M.D. [address] [place] [phone] Anticoagulant Therapy; Mutation Factor V Leiden Heterozygous (HCC); Monitoring For Therapeutic Drug Therapy; Thrombosis Deep Vein Personal History Discharge Disposition: [...] How often do you attend samaritan or advent serv ices? Never 07/09/2022 Do you belong [...] Answer Date Recorded PHQ-2 Score 0 07/09/2022 [facility] of Occupat ional Health - Occupational Stress [...] file Gender Identity Male 07/02/2017 9:12 AM UTILITY SPECIALIST Sexual Orientation Straight 07/02/2017 9: 12 AM UTILITY SPECIALIST documented as of this encounter Medications at [...] 50 mg tabletIndications:C hronic Pain/Nonacute Pain Take 2 tablets (100 mg total) by mouth every 6 (six) hours as needed for pain Indications: Chronic Pain/Nonacute Pain. 240 tablet 0 12/03/2022 01/01/2023 documented as of this encounter Plan of Treatment Upcoming Encounters Date Type Department Care Team (Latest Contact Info) Description 06/12/2023 4:15 PM UTILITY SPECIALIST Office Visit Department of Family Medicine, [facility], in [address] [phone] Stefan Salomon M.D. [address] [place] [phone] Discharge Disposition: Home or Self Care 06/21/2023 8:50 AM UTILITY SPECIALIST Appointment Department of Laboratory Medicine in [address] [phone] Stefan Salomon M.D. [address] [place] [phone] 06/21/2023 9:30 AM UTILITY SPECIALIST Anticoagulation Visit Department of Anticoagulation in [place] [address] [place] [address] Stefan Salomon M.D. [address] [place] [phone] documented as of this encounter Procedures Procedure Name Priority Date/Time Associated Diagnosis Comments INR REFLEX, POCT, B Routine 12/21/2022 1:33 PM CDT Anticoagulant Therapy Mutation Factor V Leiden Heterozygous (HCC) Monitoring For Therapeutic Drug Therapy Thrombosis Deep Vein Personal History documented in this encounter Results * INR Reflex, POCT, Blood (12/21/2022 1:33 PM CDT) INR Reflex, POCT, B 2.5 12/21/2022 1:37 PM CDT [facility] Comment: ----ADDITIONAL INFORMATION---- Standard intensity warfarin therapeutic range: 2.0 to 3.0 ?? High intensity warfarin therapeutic range: 2.5 to 3.5 Blood (Blood, Capillary) 12/21/2022 1:33 PM CDT 12/21/2022 1:33 PM CDT Stefan Salomon M.D. LAB POCT ORDERABLES - DEVICE [facility] [address] [place] [phone], [facility] CNFL [facility] in [address] [address] documented in this encounter Visit Diagnoses Diagnosis Anticoagulant Therapy Mutation Factor V Leiden Heterozygous (HCC) Monitoring For Therapeutic Drug Therapy Thrombosis Deep Vein Personal History documented in this encounter Additional Health Concerns Assessment Noted Time PHQ-9 Depression Total Score: 0 07/09/19 23 8:29 AM UTILITY SPECIALIST documented as of this encounter Care Teams Quality Nurse Relationship Specialty Start Date End Date Stefan Salomon M.D. [address] [place] [phone] PCP - General Family Medicine 07/09/22 Anticoagulation Team 07/09/22 documented as of this encounter
--- OUTSIDE RECORDS SUMMARY | 2023-06-11 08:06 | XMS_ITS | Encounter Summary ---
Author Name Unknown Organization [facility] Address [address] [place] [address] Care Team Providers Care Chemical Operations And Training Name Role Phone Stefan Salomon M.D. Primary Care Provider [phone] Encounter Details Date Type Department Care Team (Latest Contact Info) Description 01/04/2023 7:32 AM CDT - 01/04/2023 11:59 PM CDT Hospital Encounter Department of Laboratory Medicine in [address] [phone] Stefan Salomon M.D. [address] [place] [phone] Anticoagulant Therapy; Mutation Factor V Leiden Heterozygous [...] week 07/09/2022 How often do you attend jewish or religion serv ices? Never 07/09/2022 Do you belong to any clubs o r organizations such as jewish groups, unions, fraternal or athletic groups, or [...] Answer Date Recorded PHQ-2 Score 0 07/09/2022 [facility] of Occupat ional Health [...] file Gender Identity Male 07/02/2017 9:12 AM RUBBER HEEL AND SOLE PRESS TENDER Sexual Orientation Straight 07/02/2017 9: 12 AM RUBBER HEEL AND SOLE PRESS TENDER documented as of this encounter Medications at [...] Indications: Chronic Pain/Nonacute Pain. 240 tablet 0 01/02/2023 01/30/2023 documented as of this encounter Plan of Treatment Upcoming Encounters Date Type Department Care Team (Latest Contact Info) Description 06/12/2023 4:15 PM RUBBER HEEL AND SOLE PRESS TENDER Office Visit Department of Family Medicine, [facility], in [address] [phone] Stefan Salomon M.D. [address] [place] [phone] Discharge Disposition: Home or Self Care 06/21/2023 8:50 AM RUBBER HEEL AND SOLE PRESS TENDER Appointment Department of Laboratory Medicine in [address] [phone] Stefan Salomon M.D. [address] [place] [address] [phone] 06/21/2023 9:30 AM RUBBER HEEL AND SOLE PRESS TENDER Anticoagulation Visit Department of Anticoagulation in [place] [address] [place] [phone] Stefan Salomon M.D. [address] [place] [address] [phone] documented as of this encounter Procedures Procedure Name Priority Date/Time Associated Diagnosis Comments INR REFLEX, POCT, B Routine 01/04/2023 8:08 AM CDT Anticoagulant Therapy Mutation Factor V Leiden Heterozygous (HCC) Monitoring For Therapeutic Drug Therapy Thrombosis Deep Vein Personal History documented in this encounter Results * INR Reflex, POCT, Blood (01/04/2023 8:08 AM CDT) Pathologist [facility] INR Reflex, POCT, B 3.2 01/04/2023 8:07 AM CDT [facility] Comment: ----ADDITIONAL INFORMATION---- Standard intensity warfarin therapeutic range: 2.0 to 3.0 ?? High intensity warfarin therapeutic range: 2.5 to 3.5 Blood (Blood, Capillary) 01/04/2023 8:08 AM CDT 01/04/2023 8:07 AM CDT Stefan Salomon M.D. LAB POCT ORDERABLES - DEVICE [facility] [address] [place] [address], [facility] CNFL [facility] in [address] [address] documented in this encounter Visit Diagnoses Diagnosis Anticoagulant Therapy Mutation Factor V Leiden Heterozygous (HCC) Monitoring For Therapeutic Drug Therapy Thrombosis Deep Vein Personal History documented in this encounter Additional Health Concerns Assessment Noted Time PHQ-9 Depression Total Score: 0 07/09/19 23 8:29 AM RUBBER HEEL AND SOLE PRESS TENDER documented as of this encounter Care Teams Chemical Operations And Training Relationship Specialty Start Date End Date Stefan Salomon M.D. [address] [place] [phone] PCP - General Family Medicine 07/09/22 Anticoagulation Team 07/09/22 documented as of this encounter
--- OUTSIDE RECORDS SUMMARY | 2023-06-11 08:06 | XMS_ITS | Encounter Summary ---
Author Name Unknown Organization [facility] Address [address] [place] [address] Care Team Providers Care Environmental Engineer Scientist Name Role Phone Stefan Salomon M.D. Primary Care Provider [phone] Reason for Visit * Outpatient (Routine) - Canceled Specialty Diagnoses / Procedures Referred By Contdayana t Referred To Contact Anticoagulation Yue Alonso M.D. [address] [place] [phone] [facility] Region Referral ID Status Reason Start Date Expiration Date V isits Requested Visits Authorized [id number] Canceled 11/14/2021 11/14/[phone] Encounter Details Date Type Department Care Team (Latest Contact Info) Description 01/04/2023 9:20 AM CDT Anticoagulation Visit Department of Anticoagulation in [place], [place] [address] [place] [phone] Yue Alonso M.D. [address] [place] [phone] Anticoagulant Therapy (Primary Dx); Mutation [...] week 07/09/2022 How often do you attend anabaptism or hoahaoism serv ices? Never 07/09/2022 Do you belong to any clubs o r organizations such as anabaptism groups, unions, fraternal or athletic groups, or [...] Answer Date Recorded PHQ-2 Score 0 07/09/2022 [facility] of Occupat ional Health - Occupational Stress [...] file Gender Identity Male 07/02/2017 9:12 AM STUNT PERSON Sexual Orientation Straight 07/02/2017 9: 12 AM STUNT PERSON documented as of this encounter Patient Instructions * Patient Instructions* Brittany Llamas R.N. - 01/04/2023 9:20 AM CDT Your next INR will be 01/31/23. If you have a finger stick INR [...] please call Primary Care Anticoagulation Program at [phone] from 7:30 am to 4:30 pm. Saturday-Saturday [...] if you start any herbal or other lskm-rvy-kcllbhk product (check with your doctor, a nurse, or pharmacist). If you change your diet significantly. If you decide to stop or start using tobacco or alcohol. If you notice unusual bruising or bleeding. If you notice dark, tarry, or bright red stools or blood in your urine. If you have a painful and swollen calf. documented in this encounter Progress Notes * Brittany Llamas R.N. - 01/04/2023 9:20 AM CDT Warfarin Maintenance Nursing Protocol Goal Range 2.0-3.0 (version approved 07/2021) Visit Type: Telephone Primary reason for visit: Routine f/u OR f/u per previous visit recommendations Information provided by:patient INR result: 3.2 Goal range: 2.0-3.0 Inclusion Criteria: All inclusion criteria met. Proceeded to exclusion criteria. Exclusion Criteria: Section 1: No Section 1 exclusion criteria, proceeded to Section 2. Section 2: No Section 2 exclusion criteria, proceeded to screening criteria. Screening Criteria: All screening criteria negative. Testing interval extension evaluation: INR in range today? No. Patient is not eligible for testing interval extension. Proceeded to maintenance warfarin dosing and follow-up. Additional Info: None Previous INR was therapeutic. Today???s INR is Supratherapeutic, Causes: Unknown. Dosing and follow up recommendation: Protocol dosing range for INR 3.1-3.2: No change in weekly dose per protocol. Next INR in 2-4 weeks. Additional dosing or follow-up information: None. [...] (Latest Contact Info) Description 06/12/2023 4:15 PM STUNT PERSON Office Visit Department of Family Medicine, [facility], in [address] [phone] Stefan Salomon M.D. [address] [place] [phone] Discharge Disposition: Home or Self Care 06/21/2023 8:50 AM STUNT PERSON Appointment Department of Laboratory Medicine in [address] [phone] Stefan Salomon M.D. [address] [place] [phone] 06/21/2023 9:30 AM STUNT PERSON Anticoagulation Visit Department of Anticoagulation in [place], [place] [address] [place] [phone] Stefan Salomon M.D. [address] [place] [phone] documented as of this encounter Results * INR Reflex, POCT, Blood (01/31/2023 7:11 AM CDT) INR Reflex, POCT, B 2.8 01/31/2023 7:11 AM CDT [facility] Comment: ----ADDITIONAL INFORMATION---- Standard intensity warfarin therapeutic range: 2.0 to 3.0 ?? High intensity warfarin therapeutic range: 2.5 to 3.5 Blood (Blood, Capillary) 01/31/2023 7:11 AM CDT 01/31/2023 7:11 AM CDT Stefan Salomon M.D. LAB POCT ORDERABLES - DEVICE [facility] [address] [place] [address], [facility] CNFL [facility] in [address] [address] documented in this encounter Visit Diagnoses Diagnosis Anticoagulant Therapy- Primary Mutation Factor V Leiden Heterozygous (HCC) Monitoring For Therapeutic Drug Therapy Thrombosis Deep Vein Personal History documented in this encounter Additional Health Concerns Assessment Noted Time PHQ-9 Depression Total Score: 0 07/09/19 23 8:29 AM STUNT PERSON documented as of this encounter Care Teams Environmental Engineer Scientist Relationship Specialty Start Date End Date Stefan Salomon M.D. [phone] [place] [phone] PCP - General Family Medicine 07/09/22 Anticoagulation Team 07/09/22 documented as of this encounter
--- OUTSIDE RECORDS SUMMARY | 2023-06-11 08:06 | XMS_ITS | Encounter Summary ---
Author Name Unknown Organization [facility] Address [address] [place] [address] Care Team Providers Care Paper Sheeter Name Role Phone Stefan Salomon M.D. Primary Care Provider [phone] Reason for Referral * Outpatient (Routine) - Closed Specialty Diagnoses / Procedures Referred By Contac t Referred To Contact Anticoagulation Stefan Salomon M.D. [address] [place] [phone] [facility] Referral ID Status Reason Start Date Expiration Date Visits Re quested Visits Authorized [id number] Closed 01/31/2023 01/30/2026 1 1 Reason for Visit * Reason Onset Date Comments Anticoagulation 01/31/2023 Unable to reach Encounter Details Date Type Department Care Team (Latest Contact Info) Description 01/31/2023 Clinical Communication Department of Anticoagulation in [place], [place] [address] [place] [address] Theresa Storey R.N. [address] [place] [phone] Anticoagulation (Unable to reach ) Social History Tobacco Use Types Packs/Day Years [...] week 07/09/2022 How often do you attend zoroastrian or nondenominational serv ices? Never 07/09/2022 Do you belong to any clubs o r organizations such as zoroastrian groups, unions, fraternal or athletic groups, or [...] Answer Date Recorded PHQ-2 Score 0 07/09/2022 [facility] of Occupat ional Health - Occupational Stress [...] file Gender Identity Male 07/02/2017 9:12 AM COMPOTYPE OPERATOR Sexual Orientation Straight 07/02/2017 9: 12 AM COMPOTYPE OPERATOR documented as of this encounter Miscellaneous Notes * Telephone Encounter - Theresa Storey RKimberly. - 01/31/2023 4:52 PM CDT Patient contacted today by staff as they have not contacted the anticoagulation program following INR test. INR No communication outcome: Unable to reach. First Attempt. documented in this encounter Plan of Treatment Upcoming Encounters Date Type Department Care Team (Latest Contact Info) Description 06/12/2023 4:15 PM COMPOTYPE OPERATOR Office Visit Department of Family Medicine, [facility], in [address] [phone] Stefan Salomon M.D. [address] [place] [phone] Discharge Disposition: Home or Self Care 06/21/2023 8:50 AM COMPOTYPE OPERATOR Appointment Department of Laboratory Medicine in [address] [phone] Stefan Salomon M.D. [address] [place] [phone] 06/21/2023 9:30 AM COMPOTYPE OPERATOR Anticoagulation Visit Department of Anticoagulation in [address] [phone] Stefan Salomon M.D. [address] [place] [phone] Scheduled Referrals Name Type Priority Associated Diagnoses Order Schedule Anticoagulation nurse visit (clinic) Outpatient Referral Routine Expected: 02/01/2023, Expires: 05/02/2024 documented as of this encounter Visit Diagnoses Not on filedocumented in this encounter Additional Health Concerns Assessment Noted Time PHQ-9 Depression Total Score: 0 07/09/19 23 8:29 AM COMPOTYPE OPERATOR documented as of this encounter Care Teams Paper Sheeter Relationship Specialty Start Date End Date Stefan Salomon M.D. [address] [phone] PCP - General Family Medicine 07/09/22 Anticoagulation Team 07/09/22 documented as of this encounter
--- OUTSIDE RECORDS SUMMARY | 2023-06-11 08:06 | XMS_ITS | Encounter Summary ---
Author Name Unknown Organization [facility] Address [address] [place] [address] Care Team Providers Care Sweat Band Sewer Name Role Phone Stefan Salomon M.D. Primary Care Provider [phone] Reason for Visit * Reason Comments Med Refill Encounter Details Date Type Department Care Team (Late st Contact Info) Description 01/01/2023 Refill Department of Family Medicine, [facility], in [address] [phone] Stefan Salomon M.D. [address] [place] [phone] Med Refill Social History Tobacco Use Types [...] week 07/09/2022 How often do you attend jehovah's witness or taoism serv ices? Never 07/09/2022 Do you belong to any clubs o r organizations such as jehovah's witness groups, unions, fraternal or athletic groups, or [...] Answer Date Recorded PHQ-2 Score 0 07/09/2022 [facility] of Occupat ional Health [...] place to sleep or slept in a long term (including now)? No 07/09/2022 Depression Answer Date [...] file Gender Identity Male 07/02/2017 9:12 AM TAPE LIBRARIAN Sexual Orientation Straight 07/02/2017 9: 12 AM TAPE LIBRARIAN documented as of this encounter Miscellaneous Notes * Telephone Encounter - Claritza Taylor L.P.N. - 01/02/2023 1:40 PM CDT Controlled substance renewal for Tramadol 50 mg: No nursing concerns; changed directions to 1-2 tablets every 6 hours prn as written in plan Renewal is pended per the controlled substance prescribing plan located in Synopsis Controlled Substances Date last renewed (start date): 12/03/2022 Last provider visit: 08/01/2022 Last urine drug screen: 03/05/2022 ; Next due: 03/05/2024; order in place; deferred indefinitely Next provider visit due: 02/01/2023; order deferred indefinitely; no further attempts to scheduled Chronic Opioid therapy agreement last reviewed/signed: 03/05/2022 documented in this encounter Plan of Treatment Upcoming Encounters Date Type Department Care Team (Latest Contact Info) Description 06/12/2023 4:15 PM TAPE LIBRARIAN Office Visit Department of Family Medicine, [facility], in [address] [phone] Stefan Salomon M.D. [address] [place] [phone] Discharge Disposition: Home or Self Care 06/21/2023 8:50 AM TAPE LIBRARIAN Appointment Department of Laboratory Medicine in [address] [phone] Stefan Salomon M.D. [address] [place] [phone] 06/21/2023 9:30 AM TAPE LIBRARIAN Anticoagulation Visit Department of Anticoagulation in [place] [address] [place] [phone] Stefan Salomon M.D. [address] [place] [phone] documented as of this encounter Visit Diagnoses Diagnosis Chronic Pain Syndrome Degeneration Disc Cervical Polyarthralgia documented in this encounter Additional Health Concerns Assessment Noted Time PHQ-9 Depression Total Score: 0 07/09/19 23 8:29 AM TAPE LIBRARIAN documented as of this encounter Care Teams Sweat Band Sewer Relationship Specialty Start Date End Date Stefan Salomon M.D. [address] [place] [phone] PCP - General Family Medicine 07/09/22 Anticoagulation Team 07/09/22 documented as of this encounter
--- OUTSIDE RECORDS SUMMARY | 2023-06-11 08:06 | XMS_ITS | Encounter Summary ---
Author Name Unknown Organization [facility] Address [address] [place] [address] Care Team Providers Care Antenna Rigger Name Role Phone Stefan Salomon M.D. Primary Care Provider [phone] Encounter Details Date Type Department Care Team (Latest Contact Info) Description 12/14/2022 7:36 AM CDT - 12/14/2022 11:59 PM CDT Hospital Encounter Department of Laboratory Medicine in [address] [phone] Stefan Salomon M.D. [address] [place] [phone] Anticoagulant Therapy; Mutation Factor V Leiden Heterozygous [...] week 07/09/2022 How often do you attend rastafarian or mandaen serv ices? Never 07/09/2022 Do you belong to any clubs o r organizations such as rastafarian groups, unions, fraternal or athletic groups, or [...] Answer Date Recorded PHQ-2 Score 0 07/09/2022 [facility] of Occupat ional Health - Occupational [...] place to sleep or slept in a fci (including now)? No 07/09/2022 Depression Answer Date [...] file Gender Identity Male 07/02/2017 9:12 AM STEEL MOLDER Sexual Orientation Straight 07/02/2017 9: 12 AM STEEL MOLDER documented as of this encounter Medications at [...] (Latest Contact Info) Description 06/12/2023 4:15 PM STEEL MOLDER Office Visit Department of Family Medicine, [facility], in [address] [phone] Stefan Salomon M.D. [address] [place] [phone] Discharge Disposition: Home or Self Care 06/21/2023 8:50 AM STEEL MOLDER Appointment Department of Laboratory Medicine in [address] [phone] Stefan Salomon M.D. [address] [place] [phone] 06/21/2023 9:30 AM STEEL MOLDER Anticoagulation Visit Department of Anticoagulation in [place] [address] [place] [phone] Stefan Salomon M.D. [address] [place] [phone] documented as of this encounter Procedures Procedure Name Priority Date/Time Associated Diagnosis Comments INR REFLEX, POCT, B Routine 12/14/2022 7:47 AM CDT Anticoagulant Therapy Mutation Factor V Leiden Heterozygous (HCC) Monitoring For Therapeutic Drug Therapy Thrombosis Deep Vein Personal History documented in this encounter Results * INR Reflex, POCT, Blood (12/14/2022 7:47 AM CDT) INR Reflex, POCT, B 1.8 12/14/2022 7:45 AM CDT [facility] Comment: ----ADDITIONAL INFORMATION---- Standard intensity warfarin therapeutic range: 2.0 to 3.0 ?? High intensity warfarin therapeutic range: 2.5 to 3.5 Blood (Blood, Capillary) 12/14/2022 7:47 AM CDT 12/14/2022 7:45 AM CDT Stefan Salomon M.D. LAB POCT ORDERABLES - DEVICE [facility] [address] [place] [phone], [facility] CNFL [facility] in [address] [address] documented in this encounter Visit Diagnoses Diagnosis Anticoagulant Therapy Mutation Factor V Leiden Heterozygous (HCC) Monitoring For Therapeutic Drug Therapy Thrombosis Deep Vein Personal History documented in this encounter Additional Health Concerns Assessment Noted Time PHQ-9 Depression Total Score: 0 07/09/19 23 8:29 AM STEEL MOLDER documented as of this encounter Care Teams Antenna Rigger Relationship Specialty Start Date End Date Stefan Salomon M.D. [address] [place] [phone] PCP - General Family Medicine 07/09/22 Anticoagulation Team 07/09/22 documented as of this encounter
--- OUTSIDE RECORDS SUMMARY | 2023-06-11 08:06 | XMS_ITS | Encounter Summary ---
Author Name Unknown Organization [facility] Address [address] [place] [address] Care Team Providers Care Ultrasound Technician Name Role Phone Stefan Salomon M.D. Primary Care Provider [phone] Encounter Details Date Type Department Care Team (Late st Contact Info) Description 01/07/2023 Orders Only Department of Family Medicine, [facility], in [place], [place] [address] [place] [phone] Karsten Collins M.D. [address] [place] [phone] Social History Tobacco Use Types Packs/Day Years [...] How often do you attend moravian or mu-ism serv ices? Never 07/09/2022 Do [...] Answer Date Recorded PHQ-2 Score 0 07/09/2022 [facility] of Occupat ional Health - Occupational [...] place to sleep or slept in a alf (including now)? No 07/09/2022 Depression Answer Date [...] file Gender Identity Male 07/02/2017 9:12 AM STARS COORDINATOR Sexual Orientation Straight 07/02/2017 9: 12 AM STARS COORDINATOR documented as of this encounter Plan of Treatment Upcoming Encounters Date Type Department Care Team (Latest Contact Info) Description 06/12/2023 4:15 PM STARS COORDINATOR Office Visit Department of Family Medicine, [facility], in [address] [phone] Stefan Salomon M.D. [address] [place] [phone] Discharge Disposition: Home or Self Care 06/21/2023 8:50 AM STARS COORDINATOR Appointment Department of Laboratory Medicine in [address] [phone] Stefan Salomon M.D. [address] [place] [phone] 06/21/2023 9:30 AM STARS COORDINATOR Anticoagulation Visit Department of Anticoagulation in [place], [place] [address] [place] [phone] Stefan Salomon M.D. [address] [place] [phone] documented as of this encounter Visit Diagnoses Not on filedocumented in this encounter Additional Health Concerns Assessment Noted Time PHQ-9 Depression Total Score: 0 07/09/19 23 8:29 AM STARS COORDINATOR documented as of this encounter Care Teams Ultrasound Technician Relationship Specialty Start Date End Date Stefan Salomon M.D. [address] [place] [phone] PCP - General Family Medicine 07/09/22 Anticoagulation Team 07/09/22 documented as of this encounter
--- OUTSIDE RECORDS SUMMARY | 2023-06-11 08:06 | XMS_ITS | Encounter Summary ---
Author Name Unknown Organization [facility] Address [address] [place] [address] Care Team Providers Care Import Coordination And Production Head Name Role Phone Stefan Salomon M.D. Primary Care Provider [phone] Reason for Visit * Outpatient (Routine) - Canceled Specialty Diagnoses / Procedures Referred By Contdayana t Referred To Contact Anticoagulation Yue Alonso M.D. [address] [place] [phone] [facility] Region Referral ID Status Reason Start Date Expiration Date V isits Requested Visits Authorized [id number] Canceled 11/14/2021 11/14/[phone] Encounter Details Date Type Department Care Team (Latest Contact Info) Description 12/21/2022 2:10 PM CDT Anticoagulation Visit Department of Anticoagulation in [place], [place] [address] [place] [phone] Yue Alonso M.D. [address] [place] [phone] Anticoagulant Therapy (Primary Dx); Mutation [...] How often do you attend restoration or druze serv ices? Never 07/09/2022 Do you belong [...] Answer Date Recorded PHQ-2 Score 0 07/09/2022 [facility] of Occupat ional Health - Occupational Stress [...] place to sleep or slept in a snf (including now)? No 07/09/2022 Depression Answer Date [...] file Gender Identity Male 07/02/2017 9:12 AM PARTS SALESMAN Sexual Orientation Straight 07/02/2017 9: 12 AM PARTS SALESMAN documented as of this encounter Patient Instructions * Patient Instructions* Billie Villarreal R.N. - 12/21/2022 2:10 PM CDT Your next INR will be 01/04/2023. If you have a finger stick INR [...] please call Primary Care Anticoagulation Program at [phone] from 7:30 am to 4:30 pm. Saturday-Saturday [...] if you start any herbal or other [id number] product (check with your doctor, a nurse, or pharmacist). If you change your diet significantly. If you decide to stop or start using tobacco or alcohol. If you notice unusual bruising or bleeding. If you notice dark, tarry, or bright red stools or blood in your urine. If you have a painful and swollen calf. documented in this encounter Progress Notes * Billie Villarreal RKimberly. - 12/21/2022 2:10 PM CDT Warfarin Maintenance Nursing Protocol Goal Range 2.0-3.0 (version approved 07/2021) Visit Type: Telephone Primary reason for visit: Routine f/u OR f/u per previous visit recommendations Information provided by:patient INR result: 2.5 Goal range: 2.0-3.0 Inclusion Criteria: All inclusion [...] follow-up. Additional Info: None Previous INR was subtherapeutic. Today???s INR is Therapeutic. Dosing and follow up recommendation: Protocol dosing range for INR 2.0-3.0: No change in weekly dose. Currently bridging? no. Next INR in twice the amount of time since last INR (max duration is 4-6 weeks): 2 weeks. Additional dosing or follow-up information: None. Pt is on injectable anticoagulant: No. Plan used: Protocol. See Anticoagulation Track Calendar for dosing and plan details. Anticoagulation Visit Summary: Patient repeats back dosing instructions, date of next INR, and has no further questions at this time. AVS sent via patient portal. Total time spent with patient: N/A documented in this encounter Plan of Treatment Upcoming Encounters Date Type Department Care Team (Latest Contact Info) Description 06/12/2023 4:15 PM PARTS SALESMAN Office Visit Department of Family Medicine, [facility], in [address] [phone] Stefan Salomon M.D. [address] [place] [phone] Discharge Disposition: Home or Self Care 06/21/2023 8:50 AM PARTS SALESMAN Appointment Department of Laboratory Medicine in [address] [phone] Stefan Salomon M.D. [address] [place] [phone] 06/21/2023 9:30 AM PARTS SALESMAN Anticoagulation Visit Department of Anticoagulation in [place], [place] [address] [place] [phone] Stefan Salomon M.D. [address] [place] [phone] documented as of this encounter Results * INR Reflex, POCT, Blood (01/04/2023 8:08 AM CDT) [facility] INR Reflex, POCT, B 3.2 01/04/2023 8:07 AM CDT [facility] Comment: ----ADDITIONAL INFORMATION---- Standard intensity warfarin therapeutic range: 2.0 to 3.0 ?? High intensity warfarin therapeutic range: 2.5 to 3.5 Blood (Blood, Capillary) 01/04/2023 8:08 AM CDT 01/04/2023 8:07 AM CDT Stefan Salomon M.D. LAB POCT ORDERABLES - DEVICE [facility] [address] [place] [address], [place] CNFL [facility] in [address] [address] documented in this encounter Visit Diagnoses Diagnosis Anticoagulant Therapy- Primary Mutation Factor V Leiden Heterozygous (HCC) Monitoring For Therapeutic Drug Therapy Thrombosis Deep Vein Personal History documented in this encounter Additional Health Concerns Assessment Noted Time PHQ-9 Depression Total Score: 0 07/09/19 23 8:29 AM PARTS SALESMAN documented as of this encounter Care Teams Import Coordination And Production Head Relationship Specialty Start Date End Date Stefan Salomon M.D. [address] [phone] PCP - General Family Medicine 07/09/22 Anticoagulation Team 07/09/22 documented as of this encounter
--- OUTSIDE RECORDS SUMMARY | 2023-06-11 08:06 | XMS_ITS | Encounter Summary ---
Author Name Unknown Organization [facility] Address [address] [place] [address] Care Team Providers Care Clay Grinder Name Role Phone Stefan Salomon M.D. Primary Care Provider [phone] Encounter Details Date Type Department Care Team (Latest Contact Info) Description 01/31/2023 7:00 AM CDT - 01/31/2023 11:59 PM CDT Hospital Encounter Department of Laboratory Medicine in [address] [phone] Stefan Salomon M.D. [address] [place] [phone] Anticoagulant Therapy; Mutation Factor V Leiden Heterozygous [...] week 07/09/2022 How often do you attend muslim or confucianist serv ices? Never 07/09/2022 Do you belong to any clubs o r organizations such as muslim groups, unions, fraternal or athletic groups, or [...] Answer Date Recorded PHQ-2 Score 0 07/09/2022 [facility] of Occupat ional Health - [...] place to sleep or slept in a long-term (including now)? No 07/09/2022 Depression Answer Date [...] file Gender Identity Male 07/02/2017 9:12 AM BUTTER MELTER Sexual Orientation Straight 07/02/2017 9: 12 AM BUTTER MELTER documented as of this encounter Medications at [...] Indications: Chronic Pain/Nonacute Pain. 240 tablet 0 02/01/2023 02/21/2023 documented as of this encounter Plan of Treatment Upcoming Encounters Date Type Department Care Team (Latest Contact Info) Description 06/12/2023 4:15 PM BUTTER MELTER Office Visit Department of Family Medicine, [facility], in [address] [phone] Stefan Salomon M.D. [address] [place] [phone] Discharge Disposition: Home or Self Care 06/21/2023 8:50 AM BUTTER MELTER Appointment Department of Laboratory Medicine in [address] [phone] Stefan Salomon M.D. [address] [place] [phone] 06/21/2023 9:30 AM BUTTER MELTER Anticoagulation Visit Department of Anticoagulation in [place] [address] [place] [address] Stefan Salomon M.D. [address] [place] [phone] documented as of this encounter Procedures Procedure Name Priority Date/Time Associated Diagnosis Comments INR REFLEX, POCT, B Routine 01/31/2023 7:11 AM CDT Anticoagulant Therapy Mutation Factor V Leiden Heterozygous (HCC) Monitoring For Therapeutic Drug Therapy Thrombosis Deep Vein Personal History documented in this encounter Results * INR Reflex, POCT, Blood (01/31/2023 7:11 AM CDT) Pathologist [facility] INR Reflex, POCT, B 2.8 01/31/2023 7:11 AM CDT [facility] Comment: ----ADDITIONAL INFORMATION---- Standard intensity warfarin therapeutic range: 2.0 to 3.0 ?? High intensity warfarin therapeutic range: 2.5 to 3.5 Blood (Blood, Capillary) 01/31/2023 7:11 AM CDT 01/31/2023 7:11 AM CDT Stefan Salomon M.D. LAB POCT ORDERABLES - DEVICE [facility] [address] [place] [id number], [facility] CNFL [facility] in [address] [address] documented in this encounter Visit Diagnoses Diagnosis Anticoagulant Therapy Mutation Factor V Leiden Heterozygous (HCC) Monitoring For Therapeutic Drug Therapy Thrombosis Deep Vein Personal History documented in this encounter Additional Health Concerns Assessment Noted Time PHQ-9 Depression Total Score: 0 07/09/19 23 8:29 AM BUTTER MELTER documented as of this encounter Care Teams Clay Grinder Relationship Specialty Start Date End Date Stefan Salomon M.D. [address] [place] [phone] PCP - General Family Medicine 07/09/22 Anticoagulation Team 07/09/22 documented as of this encounter
--- OUTSIDE RECORDS SUMMARY | 2023-06-11 08:06 | XMS_ITS | Encounter Summary ---
Author Name Unknown Organization [facility] Address [address] [place] [address] Care Team Providers Care Knock Out Hand Name Role Phone Stefan Salomon M.D. Primary Care Provider [phone] Reason for Visit * Reason Comments Med Refill Encounter Details Date Type Department Care Team (Late st Contact Info) Description 01/30/2023 Refill Department of Family Medicine, [facility], in [address] [phone] Stefan Salomon M.D. [address] [place] [phone] Med Refill Social History Tobacco Use Types [...] week 07/09/2022 How often do you attend anglican or yarsanism serv ices? Never 07/09/2022 Do you belong to any clubs o r organizations such as anglican groups, unions, fraternal or athletic groups, or [...] Answer Date Recorded PHQ-2 Score 0 07/09/2022 [facility] of Occupat ional Health - Occupational [...] file Gender Identity Male 07/02/2017 9:12 AM PATROL COMMANDER Sexual Orientation Straight 07/02/2017 9: 12 AM PATROL COMMANDER documented as of this encounter Miscellaneous Notes * Telephone Encounter - Erin Humphrey M.D. - 01/31/2023 9:11 PM CDT Prescription approved. * Telephone Encounter - Destiny Kapoor L.PCotyNCoty - 01/31/2023 4:48 PM CDT Controlled substance renewal for tramadol (Ultram) 50 mg: No nursing concerns Renewal is pended per the controlled substance prescribing plan located in Controlled substance synopsis. Date last renewed (start date): 01/02/2023. Last provider visit: 08/01/2022. Last urine drug screen: 03/05/2022 ; Next due: 03/05/2023 (order is in place). Screenings due: PEG (sent to patient via portal). Next provider visit due: 02/01/2023 (sent reminder to patient via portal). Chronic Opioid therapy agreement last reviewed/signed: 03/05/2022. * Telephone Encounter - Claudia Brunson - 01/30/2023 9:32 AM CDT Nurse review: Unable to forward request to provider; Controlled Substance, CSA Primary Provider: Stefan Salomon M.D. Requested Prescriptions Pending Prescriptions Disp Refills traMADoL (ULTRAM) 50 mg tablet 240 tablet 0 Sig: Take 1-2 tablets (50-100 mg total) by mouth every 6 (six) hours as needed for pain Indications: Chronic Pain/Nonacute Pain. documented in this encounter Plan of Treatment Upcoming Encounters Date Type Department Care Team (Latest Contact Info) Description 06/12/2023 4:15 PM PATROL COMMANDER Office Visit Department of Family Medicine, [facility], in [address] [phone] Stefan Salomon M.D. [address] [place] [address] [phone] Discharge Disposition: Home or Self Care 06/21/2023 8:50 AM PATROL COMMANDER Appointment Department of Laboratory Medicine in [address] [phone] Stefan Salomon M.D. [address] [place] [phone] 06/21/2023 9:30 AM PATROL COMMANDER Anticoagulation Visit Department of Anticoagulation in [place], [place] [address] [place] [address] Stefan Salomon M.D. [address] [place] [phone] documented as of this encounter Visit Diagnoses Diagnosis Chronic Pain Syndrome Degeneration Disc Cervical Polyarthralgia documented in this encounter Additional Health Concerns Assessment Noted Time PHQ-9 Depression Total Score: 0 07/09/19 23 8:29 AM PATROL COMMANDER documented as of this encounter Care Teams Knock Out Hand Relationship Specialty Start Date End Date Stefan Salomon M.D. [address] [place] [phone] PCP - General Family Medicine 07/09/22 Anticoagulation Team 07/09/22 documented as of this encounter
--- OUTSIDE RECORDS SUMMARY | 2023-06-11 08:06 | XMS_ITS | Encounter Summary ---
Author Name Unknown Organization [facility] Address [address] [place] [address] Care Team Providers Care Sales Enablement Analyst Name Role Phone Stefan Salomon M.D. Primary Care Provider [phone] Encounter Details Date Type Department Care Team (Latest Contact Info) Description 12/11/2022 11:11 AM CDT - 12/11/2022 11:59 PM CDT Hospital Encounter Department of Laboratory Medicine in [address] [phone] Stefan Salomon M.D. [address] [place] [phone] Anticoagulant Therapy; Mutation Factor V Leiden Heterozygous [...] How often do you attend anglican or mandaen serv ices? Never 07/09/2022 Do [...] Answer Date Recorded PHQ-2 Score 0 07/09/2022 [facility] of Occupat ional Health - Occupational Stress [...] file Gender Identity Male 07/02/2017 9:12 AM FOUNDRY ENGINEER Sexual Orientation Straight 07/02/2017 9: 12 AM FOUNDRY ENGINEER documented as of this encounter Medications at [...] (Latest Contact Info) Description 06/12/2023 4:15 PM FOUNDRY ENGINEER Office Visit Department of Family Medicine, [facility], in [address] [phone] Stefan Salomon M.D. [address] [place] [phone] Discharge Disposition: Home or Self Care 06/21/2023 8:50 AM FOUNDRY ENGINEER Appointment Department of Laboratory Medicine in [address] [phone] Stefan Salomon M.D. [address] [place] [phone] 06/21/2023 9:30 AM FOUNDRY ENGINEER Anticoagulation Visit Department of Anticoagulation in [place] [address] [place] [phone] Stefan Salomon M.D. [address] [place] [phone] documented as of this encounter Procedures Procedure Name Priority Date/Time Associated Diagnosis Comments INR REFLEX, POCT, B Routine 12/11/2022 11:17 AM CDT Anticoagulant Therapy Mutation Factor V Leiden Heterozygous (HCC) Monitoring For Therapeutic Drug Therapy Thrombosis Deep Vein Personal History documented in this encounter Results * INR Reflex, POCT, Blood (12/11/2022 11:17 AM CDT) INR Reflex, POCT, B 4.3 12/11/2022 11:17 AM CDT CNFL Comment: ----ADDITIONAL INFORMATION---- Standard intensity warfarin therapeutic range: 2.0 to 3.0 ?? High intensity warfarin therapeutic range: 2.5 to 3.5 Blood (Blood, Capillary) 12/11/2022 11:17 AM CDT 12/11/2022 11:17 AM CDT Stefan Salomon M.D. LAB POCT ORDERABLES - DEVICE [facility] [address] [place] [id number], [facility] CNFL [facility] in [address] [address] documented in this encounter Visit Diagnoses Diagnosis Anticoagulant Therapy Mutation Factor V Leiden Heterozygous (HCC) Monitoring For Therapeutic Drug Therapy Thrombosis Deep Vein Personal History documented in this encounter Additional Health Concerns Assessment Noted Time PHQ-9 Depression Total Score: 0 07/09/19 23 8:29 AM FOUNDRY ENGINEER documented as of this encounter Care Teams Sales Enablement Analyst Relationship Specialty Start Date End Date Stefan Salomon M.D. [address] [place] [phone] PCP - General Family Medicine 07/09/22 Anticoagulation Team 07/09/22 documented as of this encounter
--- OUTSIDE RECORDS SUMMARY | 2023-06-11 08:07 | XMS_ITS | Encounter Summary ---
Author Name Unknown Organization [facility] Address [address] [place] [address] Care Team Providers Care Econometrics Professor Name Role Phone Stefan Salomon M.D. Primary Care Provider [phone] Reason for Visit * Reason Onset Date Comments Anticoagulation 10/26/2022 Home Monitor Encounter Details Date Type Department Care Team (Latest Contact Info) Description 10/26/2022 Clinical Communication Department of Anticoagulation in [place], [place] [address] [place] [phone] Hina Coker RCotyN. [address] [place] [phone] Anticoagulation (Home Monitor) Social History Tobacco Use Types Packs/Day Years [...] How often do you attend restoration or anabaptism serv ices? Never 07/09/2022 Do you belong [...] Answer Date Recorded PHQ-2 Score 0 07/09/2022 [facility] of Occupat ional Health - Occupational Stress [...] place to sleep or slept in a [place] health care facility (including now)? No 07/09/2022 Depression Answer Date [...] file Gender Identity Male 07/02/2017 9:12 AM MARKETING SENIOR RECRUITER Sexual Orientation Straight 07/02/2017 9: 12 AM MARKETING SENIOR RECRUITER documented as of this encounter Miscellaneous Notes * Telephone Encounter - Hina Coker R.N. - 10/26/2022 10:44 AM CDT Inclusion criteria: Patient and caregiver (if applicable) have demonstrated consistent engagement with anticoagulation program. Patient is not a candidate for Direct Oral Anti-Coagulant (DOAC) or patient has declined a DOAC. Patient requires chronic (lifelong) anticoagulation with warfarin for a mechanical heart valve, chronic atrial fibrillation or venous thromboembolism. Patient has been anticoagulated for at least 3 months prior to use of the home INR device. The patient and/or caregiver agrees to correctly use the device in the context of management of theanticoagulation therapy following initiation of home monitoring. Patient agrees to follow the expectations of the Home INR contract, including the frequency of testing and the frequency of visits. Home testing with the device occurs once every seven days, and no more frequently than four times in 28 days. The patient and/or caregiver (as applicable) is willing to participate in a face to face educational program on anticoagulation management and demonstrate the correct use of the device for use in thehome. This education program occurs in [facility] at the [facility]. If patient has antiphospholipid syndrome, pharmacist has reviewed and approved patient for home INR If patient is enrolled in hospice, anticoagulation medical laboratory technical officer has reviewed and approved patient for home INR Exclusion Criteria Patient or caregiver unwilling/unable to perform INR testing (e.g., mobility, dexterity, or cognitive barriers) Patient or caregiver demonstrates treatment-interfering behavior (e.g., over- or under-engagement Patient meets all inclusion criteria and no exclusion criteria is present. Patient given [facility] Primary Care Anticoagulation Program: Important Expectations to Consider before Enrolling in Self INR Testing which outlines patient responsibilities when joining program and includes billing codes to check insurance coverage. Patient also provided with Self INR Testing Pamphlet ([id number]) and [facility] Primary Care Anticoagulation Program: Self INR Testing Patient Expectations document documented in this encounter Plan of Treatment Upcoming Encounters Date Type Department Care Team (Latest Contact Info) Description 06/12/2023 4:15 PM MARKETING SENIOR RECRUITER Office Visit Department of Family Medicine, [facility], in [address] [phone] Stefan Salomon M.D. [address] [place] [phone] Discharge Disposition: Home or Self Care 06/21/2023 8:50 AM MARKETING SENIOR RECRUITER Appointment Department of Laboratory Medicine in [address] [phone] Stefan Salomon M.D. [address] [place] [phone] 06/21/2023 9:30 AM MARKETING SENIOR RECRUITER Anticoagulation Visit Department of Anticoagulation in [place], [place] [address] [place] [phone] Stefan Salomon M.D. [address] [place] [phone] documented as of this encounter Visit Diagnoses Not on filedocumented in this encounter Additional Health Concerns Assessment Noted Time PHQ-9 Depression Total Score: 0 07/09/19 23 8:29 AM MARKETING SENIOR RECRUITER documented as of this encounter Care Teams Econometrics Professor Relationship Specialty Start Date End Date Stefan Salomon M.D. [address] [place] [phone] PCP - General Family Medicine 07/09/22 Anticoagulation Team 07/09/22 documented as of this encounter
--- OUTSIDE RECORDS SUMMARY | 2023-06-11 08:07 | XMS_ITS | Encounter Summary ---
Author Name Unknown Organization [facility] Address [address] [place] [address] Care Team Providers Care Inflated Pad Buffer Name Role Phone Stefan Salomon M.D. Primary Care Provider [phone] Encounter Details Date Type Department Care Team (Latest Contact Info) Description 10/16/2022 7:53 AM CDT - 10/16/2022 11:59 PM CDT Hospital Encounter Department of Laboratory Medicine in [address] [phone] Stefan Salomon M.D. [address] [place] [phone] Anticoagulant Therapy; Mutation Factor V Leiden Heterozygous [...] How often do you attend zoroastrian or samaritan serv ices? Never 07/09/2022 Do you belong [...] file Gender Identity Male 07/02/2017 9:12 AM MEMORIAL DESIGNER Sexual Orientation Straight 07/02/2017 9: 12 AM MEMORIAL DESIGNER documented as of this encounter Medications at [...] daily. 90 tablet 3 08/01/2022 08/01/2023 polyethylene glycol-electrolyte s (GoLYTELY) 236-22.74-6.74 -5.86 gram solution Drink 1st [...] or skin folds. 454 g 1 06/05/2022 zolpidem (AMBIEN) 5 mg tablet TAKE ONE [...] 3 05/17/2022 02/25/2023 traMADoL (ULTRAM) 50 mg tabletIndications: Chronic Pain/Nonacute Pain Take 2 tablets (100 mg total) by mouth every 6 (six) hours as needed for pain Indications: Chronic Pain/Nonacute Pain. 240 tablet 0 10/04/2022 10/31/2022 warfarin (COUMADIN) 5 mg tablet This is your blood thinner prescription. Please take per Anticoagulation visit summary. 120 tablet 3 11/08/2021 10/18/2022 documented as of this encounter Plan of Treatment Upcoming Encounters Date Type Department Care Team (Latest Contact Info) Description 06/12/2023 4:15 PM MEMORIAL DESIGNER Office Visit Department of Family Medicine, [facility], in [address] [phone] Stefan Salomon M.D. [address] [place] [phone] Discharge Disposition: Home or Self Care 06/21/2023 8:50 AM MEMORIAL DESIGNER Appointment Department of Laboratory Medicine in [address] [phone] Stefan Salomon M.D. [address] [place] [phone] 06/21/2023 9:30 AM MEMORIAL DESIGNER Anticoagulation Visit Department of Anticoagulation in [place] [address] [place] [phone] Stefan Salomon M.D. [address] [place] [phone] documented as of this encounter Procedures Procedure Name Priority Date/Time Associated Diagnosis Comments INR REFLEX, POCT, B Routine 10/16/2022 8:02 AM CDT Anticoagulant Therapy Mutation Factor V Leiden Heterozygous (HCC) Monitoring For Therapeutic Drug Therapy Thrombosis Deep Vein Personal History INR REFLEX, POCT, B Routine 10/16/2022 8:01 AM CDT documented in this encounter Results * INR Reflex, POCT, B (10/16/2022 8:02 AM CDT) INR Reflex, POCT, B Collected DEFAULT 10/16/2022 8:03 AM CDT [facility] Blood (Blood, Capillary) 10/16/2022 8:02 AM CDT 10/16/2022 8:03 AM CDT Stefan Salomon M.D. LAB POCT ORDERABLES - DEVICE [facility] [address] [place] [address], [facility] in [address] [address] * INR Reflex, POCT, B (10/16/2022 8:01 AM CDT) INR Reflex, POCT, B 2.0 10/16/2022 8:01 AM CDT [facility] Comment: ----ADDITIONAL INFORMATION---- Standard intensity warfarin therapeutic range: 2.0 to 3.0 ?? High intensity warfarin therapeutic range: 2.5 to 3.5 Blood 10/16/2022 8:01 AM CDT 10/16/2022 8:03 AM CDT Generic Rals LAB POCT ORDERABLES - DEVICE [facility] [address] [address], [facility] in [address] [address] documented in this encounter Visit Diagnoses Diagnosis Anticoagulant Therapy Mutation Factor V Leiden Heterozygous (HCC) Monitoring For Therapeutic Drug Therapy Thrombosis Deep Vein Personal History documented in this encounter Additional Health Concerns Assessment Noted Time PHQ-9 Depression Total Score: 0 07/09/19 23 8:29 AM MEMORIAL DESIGNER documented as of this encounter Care Teams Inflated Pad Buffer Relationship Specialty Start Date End Date Stefan Salomon M.D. [address] [place] [phone] PCP - General Family Medicine 07/09/22 Anticoagulation Team 07/09/22 documented as of this encounter
--- OUTSIDE RECORDS SUMMARY | 2023-06-11 08:07 | XMS_ITS | Encounter Summary ---
Author Name Unknown Organization [facility] Address [address] [place] [address] Care Team Providers Care Dynamite Shooter Name Role Phone Stefan Salomon M.D. Primary Care Provider [phone] Encounter Details Date Type Department Care Team (Latest Contact Info) Description 11/30/2022 7:50 AM CDT - 11/30/2022 11:59 PM CDT Hospital Encounter Department of Laboratory Medicine in [address] [phone] Stefan Salomon M.D. [address] [place] [phone] Anticoagulant Therapy; Mutation Factor V Leiden Heterozygous [...] week 07/09/2022 How often do you attend cheondoism or temple serv ices? Never 07/09/2022 Do you belong to any clubs o r organizations such as cheondoism groups, unions, fraternal or athletic groups, or [...] Answer Date Recorded PHQ-2 Score 0 07/09/2022 [facility] of Occupat ional Health - Occupational [...] Gender Identity Male 07/02/2017 9:12 AM HAND ORNAMENT MAKER Sexual Orientation Straight 07/02/2017 9: 12 AM HAND ORNAMENT MAKER documented as of this encounter Medications at [...] Contact Info) Description 06/12/2023 4:15 PM HAND ORNAMENT MAKER Office Visit Department of Family Medicine, [facility], in [address] [phone] Stefan Salomon M.D. [address] [place] [phone] Discharge Disposition: Home or Self Care 06/21/2023 8:50 AM HAND ORNAMENT MAKER Appointment Department of Laboratory Medicine in [address] [phone] Stefan Salomon M.D. [address] [place] [phone] 06/21/2023 9:30 AM HAND ORNAMENT MAKER Anticoagulation Visit Department of Anticoagulation in [place] [address] [place] [phone] Stefan Salomon M.D. [address] [place] [phone] documented as of this encounter Procedures Procedure Name Priority Date/Time Associated Diagnosis Comments INR REFLEX, POCT, B Routine 11/30/2022 8:11 AM CDT Anticoagulant Therapy Mutation Factor V Leiden Heterozygous (HCC) Monitoring For Therapeutic Drug Therapy Thrombosis Deep Vein Personal History documented in this encounter Results * INR Reflex, POCT, Blood (11/30/2022 8:11 AM CDT) INR Reflex, POCT, B 3.4 11/30/2022 8:11 AM CDT [facility] Comment: ----ADDITIONAL INFORMATION---- Standard intensity warfarin therapeutic range: 2.0 to 3.0 ?? High intensity warfarin therapeutic range: 2.5 to 3.5 Blood (Blood, Capillary) 11/30/2022 8:11 AM CDT 11/30/2022 8:11 AM CDT Stefan Salomon M.D. LAB POCT ORDERABLES - DEVICE [facility] [address] [place] [phone], [facility] CNFL [facility] in [address] [address] documented in this encounter Visit Diagnoses Diagnosis Anticoagulant Therapy Mutation Factor V Leiden Heterozygous (HCC) Monitoring For Therapeutic Drug Therapy Thrombosis Deep Vein Personal History documented in this encounter Additional Health Concerns Assessment Noted Time PHQ-9 Depression Total Score: 0 07/09/19 23 8:29 AM HAND ORNAMENT MAKER documented as of this encounter Care Teams Dynamite Shooter Relationship Specialty Start Date End Date Stefan Salomon M.D. [address] [place] [phone] PCP - General Family Medicine 07/09/22 Anticoagulation Team 07/09/22 documented as of this encounter
--- OUTSIDE RECORDS SUMMARY | 2023-06-11 08:07 | XMS_ITS | Encounter Summary ---
Author Name Unknown Organization [facility] Address [address] [place] [address] Care Team Providers Care Steel Fabricator Name Role Phone Stefan Salomon M.D. Primary Care Provider [phone] Reason for Visit * Reason Comments Med Refill Encounter Details Date Type Department Care Team (Late st Contact Info) Description 10/17/2022 Refill Department of Family Medicine, [facility], in [place], [place] [address] [place] [phone] Yue Alonso M.D. [address] [place] [phone] Med Refill Social History Tobacco Use Types [...] week 07/09/2022 How often do you attend rastafari or buddhism serv ices? Never 07/09/2022 Do you belong to any clubs o r organizations such as rastafari groups, unions, fraternal or athletic groups, or [...] Date Recorded PHQ-2 Score 0 07/09/2022 [facility] of Occupat ional Health [...] place to sleep or slept in a assisted (including now)? No 07/09/2022 Depression Answer Date [...] file Gender Identity Male 07/02/2017 9:12 AM WOOD BOATBUILDER APPRENTICE Sexual Orientation Straight 07/02/2017 9: 12 AM WOOD BOATBUILDER APPRENTICE documented as of this encounter Miscellaneous Notes * Telephone Encounter - Alona Velez RCotyNCoty - 10/18/2022 9:37 AM CDT Warfarin Prescription Refill Protocol (v. 04/22/2020) Inclusion Criteria: All inclusion criteria met. Proceeded to exclusion criteria. Exclusion Criteria: No exclusion criteria, proceeded to screening criteria. Screening Criteria: Patient has Anticoagulation Monitoring Consult with Authorized status. Proceeded to warfarin prescription renewal-section 1. Plan: Per warfarin prescription renewal-section 1: Warfarin prescription renewed for duration of 1 year documented in this encounter Plan of Treatment Upcoming Encounters Date Type Department Care Team (Latest Contact Info) Description 06/12/2023 4:15 PM WOOD BOATBUILDER APPRENTICE Office Visit Department of Family Medicine, [facility], in [address] [phone] Stefan Salomon M.D. [address] [place] [phone] Discharge Disposition: Home or Self Care 06/21/2023 8:50 AM WOOD BOATBUILDER APPRENTICE Appointment Department of Laboratory Medicine in [address] [phone] Stefan Salomon M.D. [address] [place] [phone] 06/21/2023 9:30 AM WOOD BOATBUILDER APPRENTICE Anticoagulation Visit Department of Anticoagulation in [place] [address] [place] [phone] Stefan Salomon M.D. [address] [place] [phone] documented as of this encounter Visit Diagnoses Diagnosis Anticoagulant Therapy- Primary Mutation Factor V Leiden Heterozygous (HCC) Monitoring For Therapeutic Drug Therapy Thrombosis Deep Vein Personal History documented in this encounter Additional Health Concerns Assessment Noted Time PHQ-9 Depression Total Score: 0 07/09/19 23 8:29 AM WOOD BOATBUILDER APPRENTICE documented as of this encounter Care Teams Steel Fabricator Relationship Specialty Start Date End Date Stefan Salomon M.D. [address] [place] [phone] PCP - General Family Medicine 07/09/22 Anticoagulation Team 07/09/22 documented as of this encounter
--- OUTSIDE RECORDS SUMMARY | 2023-06-11 08:07 | XMS_ITS | Encounter Summary ---
Author Name Unknown Organization [facility] Address [address] [place] [address] Care Team Providers Care Transit Operator Name Role Phone Stefan Salomon M.D. Primary Care Provider [phone] Reason for Visit * Reason Comments Med Refill Encounter Details Date Type Department Care Team (Late st Contact Info) Description 2022 Refill Department of Family Medicine, [facility], in [address] [phone] Stefan Salomon M.D. [address] [place] [phone] Med Refill Social History Tobacco Use Types [...] How often do you attend samaritan or jew serv ices? 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 Next provider visit due: 02/01/2023 Chronic Opioid therapy agreement last reviewed/signed: 03/05/2022 * Telephone Encounter - Karyna Vega - 2022 2:22 PM CDT Nurse review: Unable to forward request to provider; Controlled Substance, CSA Primary Provider: Stefan Salomon M.D. Requested Prescriptions Pending Prescriptions Disp Refills traMADoL (ULTRAM) 50 mg tablet 240 tablet 0 Sig: Take 2 tablets (100 mg total) by mouth every 6 (six) hours as needed for pain Indications: Chronic Pain/Nonacute Pain. Pharmacy (include location): [facility] [address] [place] [address] documented in this encounter Plan of Treatment Upcoming Encounters Date Type Department Care Team (Latest Contact Info) Description 06/12/2023 4:15 PM BOX STORAGE WORKER Office Visit Department of Family Medicine, [facility], in [address] [phone] Stefan Salomon M.D. [address] [place] [phone] Discharge Disposition: Home or Self Care 06/21/2023 8:50 AM BOX STORAGE WORKER Appointment Department of Laboratory Medicine in [address] [phone] Stefan Salomon M.D. [address] [place] [phone] 06/21/2023 9:30 AM BOX STORAGE WORKER Anticoagulation Visit Department of Anticoagulation in [place] [address] [place] [address] Stefan Salomon M.D. [address] [place] [phone] documented as of this encounter Visit Diagnoses Diagnosis Chronic Pain Syndrome Degeneration Disc Cervical Polyarthralgia documented in this encounter Additional Health Concerns Assessment Noted Time PHQ-9 Depression Total Score: 0 07/09/19 23 8:29 AM BOX STORAGE WORKER documented as of this encounter Care Teams Transit Operator Relationship Specialty Start Date End Date Stefan Salomon M.D. [address] [place] [address] TWYLA Rogers [phone] PCP - General Family Medicine 07/09/22 Anticoagulation Team 07/09/22 documented as of this encounter
--- OUTSIDE RECORDS SUMMARY | 2023-06-11 08:07 | XMS_ITS | Encounter Summary ---
Author Name Unknown Organization [facility] Address [address] [place] [address] Care Team Providers Care Air Liaison And Special Staff Name Role Phone Stefan Salomon M.D. Primary Care Provider [phone] Reason for Visit * Outpatient (Routine) - Canceled Specialty Diagnoses / Procedures Referred By Contdayana t Referred To Contact Anticoagulation Yue Alonso M.D. [address] [place] [address] [facility] Region Referral ID Status Reason Start Date Expiration Date V isits Requested Visits Authorized [id number] Canceled 11/14/2021 11/14/[phone] Encounter Details Date Type Department Care Team (Latest Contact Info) Description 12/11/2022 2:30 PM CDT Anticoagulation Visit Department of Anticoagulation in [place], [place] [address] [place] [phone] Yeu Alonso M.D. [address] [place] [phone] Anticoagulant Therapy (Primary Dx); Mutation [...] week 07/09/2022 How often do you attend protestant or mandaeism serv ices? Never 07/09/2022 Do you belong to any clubs o r organizations such as protestant groups, unions, fraternal or athletic groups, or [...] Answer Date Recorded PHQ-2 Score 0 07/09/2022 [facility] of Occupat ional Health - Occupational Stress [...] file Gender Identity Male 07/02/2017 9:12 AM LAMP SHADE ASSEMBLER Sexual Orientation Straight 07/02/2017 9: 12 AM LAMP SHADE ASSEMBLER documented as of this encounter Progress Notes * Hina Coker R.N. - 12/11/2022 2:30 PM CDT Warfarin Maintenance Nursing Protocol Goal Range 2.0-3.0 (version approved 07/2021) Visit Type: Telephone Primary reason for visit: Routine f/u OR f/u per previous visit recommendations Information provided by:patient INR result: 4.3 Goal range: 2.0-3.0 Inclusion Criteria: All inclusion criteria met. Proceeded to exclusion criteria. Exclusion Criteria: Section 1: No Section 1 exclusion criteria, proceeded to Section 2. Section 2: No Section 2 exclusion criteria, proceeded to screening criteria. Screening Criteria: Current INR value has changed by greater than or equal to 1 since last INR check: yes. NO dose change was made within the last 7 days. Proceeded to maintenance warfarin dosing and follow-up Additional Info: None Previous INR was supratherapeutic. Today???s INR is Supratherapeutic, Causes: Unknown. Dosing and follow up recommendation: Protocol dosing range for INR 4.1-5: 2nd consecutive INR above goal range. HOLD next dose of warfarin, then decrease average daily dose by 50% for 1 dose, then resume current dose per protocol. Next INR within 5 days. Additional dosing or follow-up information: None. Pt [...] (Latest Contact Info) Description 06/12/2023 4:15 PM LAMP SHADE ASSEMBLER Office Visit Department of Family Medicine, [facility], in [address] [phone] Stefan Salomon M.D. [address] [place] [phone] Discharge Disposition: Home or Self Care 06/21/2023 8:50 AM LAMP SHADE ASSEMBLER Appointment Department of Laboratory Medicine in [address] [phone] Stefan Salomon M.D. [address] [place] [phone] 06/21/2023 9:30 AM LAMP SHADE ASSEMBLER Anticoagulation Visit Department of Anticoagulation in [place], [place] [address] [place] [address] Stefan Salomon M.D. [address] [place] [phone] documented as of this encounter Results * INR Reflex, POCT, Blood (12/14/2022 7:47 AM CDT) [facility] Signature INR Reflex, POCT, B 1.8 12/14/2022 7:45 AM CDT [facility] Comment: ----ADDITIONAL INFORMATION---- Standard intensity warfarin therapeutic range: 2.0 to 3.0 ?? High intensity warfarin therapeutic range: 2.5 to 3.5 Blood (Blood, Capillary) 12/14/2022 7:47 AM CDT 12/14/2022 7:45 AM CDT Stefan Salomon M.D. LAB POCT ORDERABLES - DEVICE [facility] [address] [place] [phone], [place] CNFL [facility] [place] in [address] [address] documented in this encounter Visit Diagnoses Diagnosis Anticoagulant Therapy- Primary Mutation Factor V Leiden Heterozygous (HCC) Monitoring For Therapeutic Drug Therapy Thrombosis Deep Vein Personal History documented in this encounter Additional Health Concerns Assessment Noted Time PHQ-9 Depression Total Score: 0 07/09/19 23 8:29 AM LAMP SHADE ASSEMBLER documented as of this encounter Care Teams Air Liaison And Special Staff Relationship Specialty Start Date End Date Stefan Salomon M.D. [address] [phone] PCP - General Family Medicine 07/09/22 Anticoagulation Team 07/09/22 documented as of this encounter
--- OUTSIDE RECORDS SUMMARY | 2023-06-11 08:07 | XMS_ITS | Encounter Summary ---
Author Name Unknown Organization [facility] Address [address] [place] [address] Care Team Providers Care Credit Union Manager Name Role Phone Stefan Salomon M.D. Primary Care Provider [phone] Reason for Referral * Outpatient (Routine) - Closed Specialty Diagnoses / Procedures Referred By Piero self Referred To Contact Family Medicine Stefan Salomon M.D. [address] [place] [phone] [facility] Referral ID Status Reason Start Date Expiration Date Visits Re quested Visits Authorized [id number] Closed 11/01/2022 10/31/2025 1 1 Reason for Visit * Reason Comments Med Refill Encounter Details Date Type Department Care Team (Late st Contact Info) Description 10/31/2022 Refill Department of Family Medicine, [facility], in [address] [phone] Stefan Salomon M.D. [address] [place] [phone] Med Refill Social History Tobacco Use [...] Answer Date Recorded PHQ-2 Score 0 07/09/2022 [facility] of Occupat ional Health - Occupational Stress [...] place to sleep or slept in a usp (including now)? No 07/09/2022 Depression Answer Date [...] file Gender Identity Male 07/02/2017 9:12 AM COMMERCIAL CREDIT LEAD Sexual Orientation Straight 07/02/2017 9: 12 AM COMMERCIAL CREDIT LEAD documented as of this encounter Miscellaneous Notes * Telephone Encounter - Destiny Kapoor L.P.N. - 11/01/2022 3:38 PM CDT Controlled substance renewal for Tramadol 50 mg: No nursing concerns Renewal is pended per the controlled substance prescribing plan located in Controlled substance synopsis. Date last renewed (start date): 10/04/2022. Last provider visit: 08/01/2022. Last urine drug screen: 03/05/2022 ; Next due: 03/05/2023. Screenings due: PEG (sent to patient via portal). Next provider visit due: 02/01/2023 (order pended). Chronic Opioid therapy agreement last reviewed/signed: 03/05/2022. documented in this encounter Plan of Treatment Upcoming Encounters Date Type Department Care Team (Latest Contact Info) Description 06/12/2023 4:15 PM COMMERCIAL CREDIT LEAD Office Visit Department of Family Medicine, [facility], in [address] [phone] Stefan Salomon M.D. [address] [place] [phone] Discharge Disposition: Home or Self Care 06/21/2023 8:50 AM COMMERCIAL CREDIT LEAD Appointment Department of Laboratory Medicine in [address] [phone] Stefan Salomon M.D. [address] [place] [phone] 06/21/2023 9:30 AM COMMERCIAL CREDIT LEAD Anticoagulation Visit Department of Anticoagulation in [place] [address] [place] [phone] Stefan Salomon M.D. [address] [place] [phone] Scheduled Referrals Name Type Priority Associated Diagnoses Orde r Schedule Family Medicine office visit (clinic) Outpatient Referral Routine Expected: 01/01/2023, Expires: 02/02/2024 documented as of this encounter Visit Diagnoses Diagnosis Chronic Pain Syndrome Polyarthralgia Degeneration Disc Cervical documented in this encounter Additional Health Concerns Assessment Noted Time PHQ-9 Depression Total Score: 0 07/09/19 23 8:29 AM COMMERCIAL CREDIT LEAD documented as of this encounter Care Teams Credit Union Manager Relationship Specialty Start Date End Date Stefan Salomon M.D. [address] [place] [phone] PCP - General Family Medicine 07/09/22 Anticoagulation Team 07/09/22 documented as of this encounter
--- OUTSIDE RECORDS SUMMARY | 2023-06-11 08:07 | XMS_ITS | Encounter Summary ---
Author Name Unknown Organization [facility] Address [address] [place] [address] Care Team Providers Care Candy Spreader Name Role Phone Stefan Salomon M.D. Primary Care Provider [phone] Encounter Details Date Type Department Care Team (Latest Contact Info) Description 10/26/2022 7:55 AM CDT - 10/26/2022 11:59 PM CDT Hospital Encounter Department of Laboratory Medicine in [address] [phone] Stefan Salomon M.D. [address] [place] [phone] Anticoagulant Therapy; Mutation Factor V Leiden Heterozygous [...] week 07/09/2022 How often do you attend episcopalian or taoist serv ices? Never 07/09/2022 Do you belong to any clubs o r organizations such as episcopalian groups, unions, fraternal or athletic groups, or [...] Answer Date Recorded PHQ-2 Score 0 07/09/2022 [facility] of Occupat ional Health - Occupational Stress [...] file Gender Identity Male 07/02/2017 9:12 AM LIFT TEAM TECHNICIAN Sexual Orientation Straight 07/02/2017 9: 12 AM LIFT TEAM TECHNICIAN documented as of this encounter Medications at [...] Pain/Nonacute Pain. 240 tablet 0 10/04/2022 10/31/2022 documented as of this encounter Plan of Treatment Upcoming Encounters Date Type Department Care Team (Latest Contact Info) Description 06/12/2023 4:15 PM LIFT TEAM TECHNICIAN Office Visit Department of Family Medicine, [facility], in [address] [phone] Stefan Salomon M.D. [address] [place] [phone] Discharge Disposition: Home or Self Care 06/21/2023 8:50 AM LIFT TEAM TECHNICIAN Appointment Department of Laboratory Medicine in [address] [phone] Stefan Salomon M.D. [address] [place] [phone] 06/21/2023 9:30 AM LIFT TEAM TECHNICIAN Anticoagulation Visit Department of Anticoagulation in [place] [address] [place] [address] Stefan Salomon M.D. [address] [place] [phone] documented as of this encounter Procedures Procedure Name Priority Date/Time Associated Diagnosis Comments INR REFLEX, POCT, B Routine 10/26/2022 8:00 AM CDT INR REFLEX, POCT, B Routine 10/26/2022 7:58 AM CDT Anticoagulant Therapy Mutation Factor V Leiden Heterozygous (HCC) Monitoring For Therapeutic Drug Therapy Thrombosis Deep Vein Personal History documented in this encounter Results * INR Reflex, POCT, B (10/26/2022 8:00 AM CDT) INR Reflex, POCT, B 2.8 10/26/2022 8:00 AM CDT [facility] Comment: ----ADDITIONAL INFORMATION---- Standard intensity warfarin therapeutic range: 2.0 to 3.0 ?? High intensity warfarin therapeutic range: 2.5 to 3.5 Blood 10/26/2022 8:00 AM CDT 10/26/2022 8:02 AM CDT Generic Rals LAB POCT ORDERABLES - DEVICE Performing Organization Address City/[facility]/ZIP Co de Phone Number [facility] [address] [place] [address], [address] [address] * INR Reflex, POCT, B (10/26/2022 7:58 AM CDT) INR Reflex, POCT, B Collected DEFAULT 10/26/2022 7:58 AM CDT [facility] Blood (Blood, Capillary) 10/26/2022 7:58 AM CDT 10/26/2022 7:58 AM CDT Stefan Salomon M.D. LAB POCT ORDERABLES - DEVICE Performing Organization Address City/[facility] Co de Phone Number [facility] [address] [place] [phone], [facility] in [address] [address] documented in this encounter Visit Diagnoses Diagnosis Anticoagulant Therapy Mutation Factor V Leiden Heterozygous (HCC) Monitoring For Therapeutic Drug Therapy Thrombosis Deep Vein Personal History documented in this encounter Additional Health Concerns Assessment Noted Time PHQ-9 Depression Total Score: 0 07/09/19 23 8:29 AM LIFT TEAM TECHNICIAN documented as of this encounter Care Teams Candy Spreader Relationship Specialty Start Date End Date Stefan Salomon M.D. [address] [place] [phone] PCP - General Family Medicine 07/09/22 Anticoagulation Team 07/09/22 documented as of this encounter
--- OUTSIDE RECORDS SUMMARY | 2023-06-11 08:07 | XMS_ITS | Encounter Summary ---
Author Name Unknown Organization [facility] Address [address] [place] [address] Care Team Providers Care Physical Biochemist Name Role Phone Stefan Salomon M.D. Primary Care Provider [phone] Reason for Visit * Reason Onset Date Comments Anticoagulation 11/15/2022 CCM Enrollment Encounter Details Date Type Department Care Team (Latest Contact Info) Description 11/15/2022 Clinical Communication Department of Anticoagulation in [place], [place] [address] [place] [phone] Candace Lee, RCotyNCoty Anticoagulation (CCM Enrollment) Social History Tobacco Use Types Packs/Day Years [...] week 07/09/2022 How often do you attend nondenominational or pentecostalism serv ices? Never 07/09/2022 Do you belong to any clubs o r organizations such as nondenominational groups, unions, fraternal or athletic groups, or [...] Answer Date Recorded PHQ-2 Score 0 07/09/2022 [facility] of Occupat ional [facility] - Occupational Stress Questionnaire Answer Date Recorded [...] file Gender Identity Male 07/02/2017 9:12 AM FIXED INCOME TRADING VICE PRESIDENT Sexual Orientation Straight 07/02/2017 9: 12 AM FIXED INCOME TRADING VICE PRESIDENT documented as of this encounter Miscellaneous Notes * Telephone Encounter - Paola Dey, C.Ph.T. - 11/19/2022 8:50 AM CDT Letter has been sent. Thank you. * Telephone Encounter - Cnadace Lee R.N. - 11/15/2022 3:50 PM CDT Consent for Chronic Care Management (CCM) requiring moderate or high complexity medical decision making. was obtained from the patient. The patient was informed that a charge, based on the level of service, will be billed to their insurance each month. Only one health care provider can provide Chronic Care Management services at a time. Patients have the right to stop Chronic Care Management services at any time by letting their care team know. The patient can contact their insurance company ifty have any questions on Chronic Care Management coverage or [facility] Patient Account Servicesif they have any questions about their bill. documented in this encounter Plan of Treatment Upcoming Encounters Date Type Department Care Team (Latest Contact Info) Description 06/12/2023 4:15 PM FIXED INCOME TRADING VICE PRESIDENT Office Visit Department of Family Medicine, [facility], in [address] [phone] Stefan Salomon M.D. [address] [place] [phone] Discharge Disposition: Home or Self Care 06/21/2023 8:50 AM FIXED INCOME TRADING VICE PRESIDENT Appointment Department of Laboratory Medicine in [address] [phone] Stefan Salomon M.D. [address] [place] [phone] 06/21/2023 9:30 AM FIXED INCOME TRADING VICE PRESIDENT Anticoagulation Visit Department of Anticoagulation in [place], [place] [address] [place] [phone] Stefan Salomon M.D. [address] [place] [phone] documented as of this encounter Visit Diagnoses Diagnosis Anticoagulant Therapy- Primary Mutation Factor V Leiden Heterozygous (HCC) Monitoring For Therapeutic Drug Therapy Thrombosis Deep Vein Personal History documented in this encounter Additional Health Concerns Assessment Noted Time PHQ-9 Depression Total Score: 0 07/09/19 23 8:29 AM FIXED INCOME TRADING VICE PRESIDENT documented as of this encounter Care Teams Physical Biochemist Relationship Specialty Start Date End Date Stefan Salomon M.D. [address] [place] [phone] PCP - General Family Medicine 07/09/22 Anticoagulation Team 07/09/22 documented as of this encounter
--- OUTSIDE RECORDS SUMMARY | 2023-06-11 08:07 | XMS_ITS | Encounter Summary ---
Author Name Unknown Organization [facility] Address [address] [place] [address] Care Team Providers Care Plant Quality Manager Name Role Phone Stefan Salomon M.D. Primary Care Provider [phone] Reason for Visit * Outpatient (Routine) - Canceled Specialty Diagnoses / Procedures Referred By Contdayana t Referred To Contact Anticoagulation Yue Alonso M.D. [address] [place] [address] [facility] Region Referral ID Status Reason Start Date Expiration Date V isits Requested Visits Authorized [id number] Canceled 11/14/2021 11/14/[phone] Encounter Details Date Type Department Care Team (Latest Contact Info) Description 11/30/2022 10:00 AM CDT Anticoagulation Visit Department of Anticoagulation in [place], [place] [address] [place] [address] Yue Alonso M.D. [address] [place] [address] Anticoagulant Therapy (Primary Dx); Mutation [...] How often do you attend yazidi or judaism serv ices? Never 07/09/2022 Do you belong [...] Answer Date Recorded PHQ-2 Score 0 07/09/2022 [facility] [place] of Occupat ional Health - Occupational Stress [...] file Gender Identity Male 07/02/2017 9:12 AM REGISTERED APPRAISER Sexual Orientation Straight 07/02/2017 9: 12 AM REGISTERED APPRAISER documented as of this encounter Patient Instructions * Patient Instructions* Kaleb Alva R.N. - 11/30/2022 10:00 AM CDT Your next INR will be in 7-10 days. If you have a finger stick INR [...] please call Primary Care Anticoagulation Program at [phone] from 7:30 am to 4:30 pm. Saturday-Saturday [...] if you start any herbal or other vheq-bgf-bjsxlzp product (check with your doctor, a nurse, or pharmacist). If you change your diet significantly. If you decide to stop or start using tobacco or alcohol. If you notice unusual bruising or bleeding. If you notice dark, tarry, or bright red stools or blood in your urine. If you have a painful and swollen calf. documented in this encounter Progress Notes * Kaleb Alva R.N. - 11/30/2022 10:00 AM CDT Warfarin Maintenance Nursing Protocol Goal Range 2.0-3.0 (version approved 07/2021) Visit Type: Telephone Primary reason for visit: Routine f/u OR f/u per previous visit recommendations Information provided by:patient INR result: 3.4 Goal range: 2.0-3.0 Inclusion Criteria: All inclusion criteria met. Proceeded to exclusion criteria. Exclusion Criteria: Section 1: No Section 1 exclusion criteria, proceeded to Section 2. Section 2: No Section 2 exclusion criteria, proceeded to screening criteria. Screening Criteria: Patient has had a change in diet, lifestyle, alcohol intake, tobacco habits, health status, hospitalization, or surgery in the last 3 days: yes. Diet change: patient reports that he has, eaten a tonof strawberries the last 1-1.5 weeks. Patient reports the season is almost over, so I won't be eating more.. Proceeded to maintenance warfarin dosing and follow-up, but have patient return for follow-up INR in 7-10 days. Additional Info: None Previous INR was therapeutic. Today???s INR is Supratherapeutic, Causes: See above positive screening criteria/additional information sections.. Dosing and follow up recommendation: Protocol dosing range for INR 3.3-3.5: Decrease average daily dose by 50% for 1 dose, then resume current dose per protocol. Next INR in 7-10 days. per positive screening criteria. Additional dosing or follow-up information: Patient declined recommended f/u. Re-educated patient on rationale for dosing and return request. Will return on 12/11/22 per patient. Pt is on injectable anticoagulant: No. Plan [...] (Latest Contact Info) Description 06/12/2023 4:15 PM REGISTERED APPRAISER Office Visit Department of Family Medicine, [facility], in [address] [phone] Stefan Salomon M.D. [address] [place] [phone] Discharge Disposition: Home or Self Care 06/21/2023 8:50 AM REGISTERED APPRAISER Appointment Department of Laboratory Medicine in [address] [phone] Stefan Salomon M.D. [address] [place] [phone] 06/21/2023 9:30 AM REGISTERED APPRAISER Anticoagulation Visit Department of Anticoagulation in [place], [place] [address] [place] [address] Stefan Salomon M.D. [address] [place] [phone] documented as of this encounter Results * INR Reflex, POCT, Blood (12/11/2022 11:17 AM CDT) [facility] INR Reflex, POCT, B 4.3 12/11/2022 11:17 AM CDT CNFL Comment: ----ADDITIONAL INFORMATION---- Standard intensity warfarin therapeutic range: 2.0 to 3.0 ?? High intensity warfarin therapeutic range: 2.5 to 3.5 Blood (Blood, Capillary) 12/11/2022 11:17 AM CDT 12/11/2022 11:17 AM CDT Stefan Salomon M.D. LAB POCT ORDERABLES - DEVICE [facility] [address] [place] [phone], [facility] CNFL [facility] in [address] [address] documented in this encounter Visit Diagnoses Diagnosis Anticoagulant Therapy- Primary Mutation Factor V Leiden Heterozygous (HCC) Monitoring For Therapeutic Drug Therapy Thrombosis Deep Vein Personal History documented in this encounter Additional Health Concerns Assessment Noted Time PHQ-9 Depression Total Score: 0 07/09/19 23 8:29 AM REGISTERED APPRAISER documented as of this encounter Care Teams Plant Quality Manager Relationship Specialty Start Date End Date Stefan Salomon M.D. [address] [place] [phone] PCP - General Family Medicine 07/09/22 Anticoagulation Team 07/09/22 documented as of this encounter
--- OUTSIDE RECORDS SUMMARY | 2023-06-11 08:07 | XMS_ITS | Encounter Summary ---
Author Name Unknown Organization [facility] Address [address] [place] [address] Care Team Providers Care Manager Renewable Energy Name Role Phone Stefan Salomon M.D. Primary Care Provider [phone] Reason for Visit * Outpatient (Routine) - Canceled Specialty Diagnoses / Procedures Referred By Contdayana t Referred To Contact Anticoagulation Yue Alonso M.D. [address] [place] [address] [facility] Region Referral ID Status Reason Start Date Expiration Date V isits Requested Visits Authorized [id number] Canceled 11/14/2021 11/14/[phone] Encounter Details Date Type Department Care Team (Latest Contact Info) Description 10/26/2022 9:30 AM CDT Anticoagulation Visit Department of Anticoagulation in [place], [place] [address] [place] [address] Yue Alonso M.D. [address] [place] [address] Anticoagulant Therapy (Primary Dx); Mutation [...] How often do you attend yazidi or samaritan serv ices? Never 07/09/2022 Do [...] Answer Date Recorded PHQ-2 Score 0 07/09/2022 [facility] [place] of Occupat ional Health - Occupational Stress [...] file Gender Identity Male 07/02/2017 9:12 AM GROUP HOME SUPERVISOR Sexual Orientation Straight 07/02/2017 9: 12 AM GROUP HOME SUPERVISOR documented as of this encounter Progress Notes * Hina Coker R.N. - 10/26/2022 9:30 AM CDT Warfarin Maintenance Nursing Protocol [...] (Latest Contact Info) Description 06/12/2023 4:15 PM GROUP HOME SUPERVISOR Office Visit Department of Family Medicine, [facility], in [address] [phone] Stefan Salomon M.D. [address] [place] [phone] Discharge Disposition: Home or Self Care 06/21/2023 8:50 AM GROUP HOME SUPERVISOR Appointment Department of Laboratory Medicine in [address] [phone] Stefan Salomon M.D. [address] [place] [phone] 06/21/2023 9:30 AM GROUP HOME SUPERVISOR Anticoagulation Visit Department of Anticoagulation in [address] [phone] Stefan Salomon M.D. [address] [place] [phone] documented as of this encounter Results * [...] Salomon M.D. LAB POCT ORDERABLES - DEVICE [facility] [address] [place] [phone], [facility] CNFL [facility] in [address] [address] documented in this encounter Visit Diagnoses Diagnosis Anticoagulant Therapy- Primary Mutation Factor V Leiden Heterozygous (HCC) Monitoring For Therapeutic Drug Therapy Thrombosis Deep Vein Personal History documented in this encounter Additional Health Concerns Assessment Noted Time PHQ-9 Depression Total Score: 0 07/09/19 8:29 AM GROUP HOME SUPERVISOR documented as of this encounter Care Teams Manager Renewable Energy Relationship Specialty Start Date End Date Stefan Salomon M.D. [address] [place] [phone] PCP - General Family Medicine 07/09/22 Anticoagulation Team 07/09/22 documented as of this encounter
--- OUTSIDE RECORDS SUMMARY | 2023-06-11 08:08 | XMS_ITS | Encounter Summary ---
Author Name Unknown Organization [facility] Address [address] [place] [address] Care Team Providers Care Gis Geographer Name Role Phone Stefan Salomon M.D. Primary Care Provider [phone] Reason for Visit * Outpatient (Routine) - Canceled Specialty Diagnoses / Procedures Referred By Contdayana t Referred To Contact Anticoagulation Yue Alonso M.D. [address] [place] [address] [facility] Region Referral ID Status Reason Start Date Expiration Date V isits Requested Visits Authorized [id number] Canceled 11/09/2021 11/09/[phone] Encounter Details Date Type Department Care Team (Latest Contact Info) Description 09/14/2022 8:00 AM CDT Anticoagulation Visit Department of Anticoagulation in [place], [place] [address] [place] [address] Yue Alonso M.D. [address] [place] [phone] Anticoagulant Therapy (Primary Dx); Mutation [...] week 07/09/2022 How often do you attend spiritism or religion serv ices? Never 07/09/2022 Do you belong to any clubs o r organizations such as spiritism groups, unions, fraternal or athletic groups, or [...] Answer Date Recorded PHQ-2 Score 0 07/09/2022 [facility] of Occupat ional Health - Occupational Stress [...] file Gender Identity Male 07/02/2017 9:12 AM DYE AUTOMATION OPERATOR Sexual Orientation Straight 07/02/2017 9: 12 AM DYE AUTOMATION OPERATOR documented as of this encounter Patient Instructions * Patient Instructions* Lillie Larson R.N. - 09/14/2022 8:00 AM CDT Your next INR will be . If you have a finger stick INR please call the Anticoagulation clinic about40 minutes after your lab. If you have a lab drawn from your arm please call the Anticoagulation clinic the next day at your scheduled appointment time. These appointments are necessary to review your INR result and future Warfarin dosing. To reschedule your appointment or for questions about your warfarin, please call Primary Care Anticoagulation Program at [phone] from 7:30 am to 4:30 pm. Saturday-Saturday [...] if you start any herbal or other miup-yut-tqghjvq product (check with your doctor, a nurse, or pharmacist). If you change your diet significantly. If you decide to stop or start using tobacco or alcohol. If you notice unusual bruising or bleeding. If you notice dark, tarry, or bright red stools or blood in your urine. If you have a painful and swollen calf. documented in this encounter Progress Notes * Lillie Larson R.N. - 09/14/2022 8:00 AM CDT Warfarin Maintenance Nursing Protocol Goal Range 2.0-3.0 (version approved 07/2021) Visit Type: Telephone Primary reason for visit: Routine f/u OR f/u per previous visit recommendations Information provided by:patient INR result: 3.1 Goal range: 2.0-3.0 Inclusion Criteria: All inclusion criteria met. Proceeded to exclusion criteria. Exclusion Criteria: Section 1: No Section 1 exclusion criteria, proceeded to Section 2. Section 2: No Section 2 exclusion criteria, proceeded to screening criteria. Screening Criteria: Patient has started, stopped, or has had a dose adjustment of medication: yes. Since last INR check. Medication: Cephalexin was started on 09/10. Medication listed on Appendix A, continued with Appendix A for dosing and follow-up. Additional Info: ED 09/10 for a cut on his hand Previous INR was therapeutic. Today???s INR is [...] (Latest Contact Info) Description 06/12/2023 4:15 PM DYE AUTOMATION OPERATOR Office Visit Department of Family Medicine, [facility], in [address] [phone] Stefan Salomon M.D. [address] [place] [phone] Discharge Disposition: Home or Self Care 06/21/2023 8:50 AM DYE AUTOMATION OPERATOR Appointment Department of Laboratory Medicine in [address] [phone] Stefan Salomon M.D. [address] [place] [phone] 06/21/2023 9:30 AM DYE AUTOMATION OPERATOR Anticoagulation Visit Department of Anticoagulation in [address] [phone] Stefan Salomon M.D. [address] [place] [phone] documented as of this encounter Results * INR Reflex, POCT, B (10/11/2022 8:36 AM CDT) INR Reflex, POCT, B Collected DEFAULT 10/11/2022 8:37 AM CDT [place] Blood (Blood, Capillary) 10/11/2022 8:36 AM CDT 10/11/2022 8:37 AM CDT Yue Alonso M.D. LAB POCT ORDERABLES - DEVICE [facility] [address] [place] [address], [facility] in [address] [address] documented in this encounter Visit Diagnoses Diagnosis Anticoagulant Therapy- Primary Mutation Factor V Leiden Heterozygous (HCC) Monitoring For Therapeutic Drug Therapy Thrombosis Deep Vein Personal History documented in this encounter Additional Health Concerns Assessment Noted Time PHQ-9 Depression Total Score: 0 07/09/19 23 8:29 AM DYE AUTOMATION OPERATOR documented as of this encounter Care Teams Gis Geographer Relationship Specialty Start Date End Date Stefan Salomon M.D. [address] [phone] PCP - General Family Medicine 07/09/22 Anticoagulation Team 07/09/22 documented as of this encounter
--- OUTSIDE RECORDS SUMMARY | 2023-06-11 08:08 | XMS_ITS | Encounter Summary ---
Author Name Unknown Organization [facility] Address [address] [place] [address] Care Team Providers Care Senior Supplier Quality Engineer Name Role Phone Stefan Salomon M.D. Primary Care Provider [phone] Reason for Visit * Outpatient (Routine) - Canceled Specialty Diagnoses / Procedures Referred By Contdayana t Referred To Contact Anticoagulation Yue Alonso M.D. [address] [place] [address] [facility] Region Referral ID Status Reason Start Date Expiration Date V isits Requested Visits Authorized [id number] Canceled 11/14/2021 11/14/[phone] Encounter Details Date Type Department Care Team (Latest Contact Info) Description 10/11/2022 9:30 AM CDT Anticoagulation Visit Department of Anticoagulation in [place], [place] [address] [place] [address] Yue Alonso M.D. [address] [place] [address] Anticoagulant Therapy (Primary Dx); Mutation [...] How often do you attend samaritan or latter-day serv ices? Never 07/09/2022 Do you belong [...] Answer Date Recorded PHQ-2 Score 0 07/09/2022 [facility] [place] of Occupat ional Health - Occupational Stress [...] file Gender Identity Male 07/02/2017 9:12 AM UPSTREAM BIOMANUFACTURING TECHNICIAN Sexual Orientation Straight 07/02/2017 9: 12 AM UPSTREAM BIOMANUFACTURING TECHNICIAN documented as of this encounter Progress Notes * Theresa Storey RCotyN. - 10/11/2022 9:30 AM CDT Warfarin Maintenance Nursing Protocol Goal Range 2.0-3.0 (version approved 07/2021) Visit Type: Telephone Primary reason for visit: Routine f/u OR f/u per previous visit recommendations Information provided by:patient INR result: 4.1 Goal range: 2.0-3.0 Inclusion Criteria: All inclusion [...] (Latest Contact Info) Description 06/12/2023 4:15 PM UPSTREAM BIOMANUFACTURING TECHNICIAN Office Visit Department of Family Medicine, [facility], in [address] [phone] Stefan Salomon M.D. [address] [place] [phone] Discharge Disposition: Home or Self Care 06/21/2023 8:50 AM UPSTREAM BIOMANUFACTURING TECHNICIAN Appointment Department of Laboratory Medicine in [address] [phone] Stefan Salomon M.D. [address] [place] [phone] 06/21/2023 9:30 AM UPSTREAM BIOMANUFACTURING TECHNICIAN Anticoagulation Visit Department of Anticoagulation in [place], [place] [address] [place] [address] Stefan Salomon M.D. [address] [place] [phone] documented as of this encounter Results * INR Reflex, POCT, B (10/16/2022 8:02 AM CDT) INR Reflex, POCT, B Collected DEFAULT 10/16/2022 8:03 AM CDT [facility] Blood (Blood, Capillary) 10/16/2022 8:02 AM CDT 10/16/2022 8:03 AM CDT Stefan Salomon M.D. LAB POCT ORDERABLES - DEVICE [facility] [address] [place] [address], [place] [facility] in [address] [address] documented in this encounter Visit Diagnoses Diagnosis Anticoagulant Therapy- Primary Mutation Factor V Leiden Heterozygous (HCC) Monitoring For Therapeutic Drug Therapy Thrombosis Deep Vein Personal History documented in this encounter Additional Health Concerns Assessment Noted Time PHQ-9 Depression Total Score: 0 07/09/19 23 8:29 AM UPSTREAM BIOMANUFACTURING TECHNICIAN documented as of this encounter Care Teams Senior Supplier Quality Engineer Relationship Specialty Start Date End Date Stefan Salomon M.D. [address] [place] [phone] PCP - General Family Medicine 07/09/22 Anticoagulation Team 07/09/22 documented as of this encounter
--- OUTSIDE RECORDS SUMMARY | 2023-06-11 08:08 | XMS_ITS | Encounter Summary ---
Author Name Unknown Organization [facility] Address [address] [place] [address] Care Team Providers Care Information Clerk Brokerage Name Role Phone Stefan Salomon M.D. Primary Care Provider [phone] Reason for Visit * Reason Comments Med Refill Encounter Details Date Type Department Care Team (Late st Contact Info) Description 10/02/2022 Refill Department of Family Medicine, [facility], in [address] [phone] Stefan Salomon M.D. [address] [place] [phone] Med Refill Social History Tobacco Use [...] How often do you attend mosque or religion serv ices? Never 07/09/2022 Do [...] Answer Date Recorded PHQ-2 Score 0 07/09/2022 [facility] of Occupat ional Health - Occupational [...] file Gender Identity Male 07/02/2017 9:12 AM CHARGE MASTER ANALYST Sexual Orientation Straight 07/02/2017 9: 12 AM CHARGE MASTER ANALYST documented as of this encounter Miscellaneous Notes * Telephone Encounter - Rachel Llamas L.P.N. - 10/04/2022 10:02 AM CDT Controlled substance renewal for Tramadol 50 mg: No nursing concerns Renewal is pended per the controlled substance prescribing plan located in Synopsis Date last renewed (start date): 09/03/2022 Last provider visit: 08/01/2022 Last urine drug screen: 03/05/22 ; Next due: 03/05/23 Screenings due: none Next provider visit due: 02/01/2023 Chronic Opioid therapy agreement last reviewed/signed: 03/05/2022 * Telephone Encounter - Caity Gavin Sergio - 10/02/2022 1:53 PM CDT Images from the original note were not included. Nurse review: Unable to forward request to provider; Controlled Substance, CSA Primary Provider: Stefan Salomon M.D. Pharmacy (include location): [facility] documented in this encounter Plan of Treatment Upcoming Encounters Date Type Department Care Team (Latest Contact Info) Description 06/12/2023 4:15 PM CHARGE MASTER ANALYST Office Visit Department of Family Medicine, [facility], in [address] [phone] Stefan Salomon M.D. [address] [place] [phone] Discharge Disposition: Home or Self Care 06/21/2023 8:50 AM CHARGE MASTER ANALYST Appointment Department of Laboratory Medicine in [address] [phone] Stefan Salomon M.D. [address] [place] [phone] 06/21/2023 9:30 AM CHARGE MASTER ANALYST Anticoagulation Visit Department of Anticoagulation in [place], [place] [address] [place] [address] Stefan Salomon M.D. [address] [place] [phone] documented as of this encounter Visit Diagnoses Diagnosis Chronic Pain Syndrome Polyarthralgia Degeneration Disc Cervical documented in this encounter Additional Health Concerns Assessment Noted Time PHQ-9 Depression Total Score: 0 07/09/19 8:29 AM CHARGE MASTER ANALYST documented as of this encounter Care Teams Information Clerk Brokerage Relationship Specialty Start Date End Date Stefan Salomon M.D. [address] [place] [phone] PCP - General Family Medicine 07/09/22 Anticoagulation Team 07/09/22 documented as of this encounter
--- OUTSIDE RECORDS SUMMARY | 2023-06-11 08:08 | XMS_ITS | Encounter Summary ---
Author Name Unknown Organization [facility] Address [address] [place] [address] Care Team Providers Care Fuel Testing Technician Name Role Phone Stefan Salomon M.D. Primary Care Provider [phone] Reason for Visit * Reason Comments Med Refill Encounter Details Date Type Department Care Team (Late st Contact Info) Description 09/13/2022 Refill Department of Family Medicine, [facility], in [place], [place] [address] [place] [phone] Yue Alonso M.D. [address] [place] [phone] Med Refill Social History Tobacco Use Types [...] week 07/09/2022 How often do you attend confucianism or protestant serv ices? Never 07/09/2022 Do you belong to any clubs o r organizations such as confucianism groups, unions, fraternal or athletic groups, or [...] Date Recorded PHQ-2 Score 0 07/09/2022 [facility] of Occupat ional Health - Occupational [...] No 07/09/2022 Housing Stability Vital Sign Answer [place] e Recorded In the last 12 months, [...] file Gender Identity Male 07/02/2017 9:12 AM LINE SERVICER Sexual Orientation Straight 07/02/2017 9: 12 AM LINE SERVICER documented as of this encounter Plan of Treatment Upcoming Encounters Date Type Department Care Team (Latest Contact Info) Description 06/12/2023 4:15 PM LINE SERVICER Office Visit Department of Family Medicine, [facility], in [address] [phone] Stefan Salomon M.D. [address] [place] [phone] Discharge Disposition: Home or Self Care 06/21/2023 8:50 AM LINE SERVICER Appointment Department of Laboratory Medicine in [address] [phone] Stefan Salomon M.D. [address] [place] [phone] 06/21/2023 9:30 AM LINE SERVICER Anticoagulation Visit Department of Anticoagulation in [address] [phone] Stefan Salomon M.D. [address] [place] [phone] documented as of this encounter Visit Diagnoses Not on filedocumented in this encounter Additional Health Concerns Assessment Noted Time PHQ-9 Depression Total Score: 0 07/09/19 23 8:29 AM LINE SERVICER documented as of this encounter Care Teams Fuel Testing Technician Relationship Specialty Start Date End Date Stefan Salomon M.D. [address] [place] [phone] PCP - General Family Medicine 07/09/22 Anticoagulation Team 07/09/22 documented as of this encounter
--- OUTSIDE RECORDS SUMMARY | 2023-06-11 08:08 | XMS_ITS | Encounter Summary ---
Author Name Unknown Organization [facility] Address [address] [place] [address] Care Team Providers Care Slasher Runner Name Role Phone Stefan Salomon M.D. Primary Care Provider [phone] Reason for Visit * Outpatient (Routine) - Canceled Specialty Diagnoses / Procedures Referred By Contdayana t Referred To Contact Anticoagulation Yue Alonso M.D. [address] [place] [address] [facility] Region Referral ID Status Reason Start Date Expiration Date V isits Requested Visits Authorized [id number] Canceled 11/14/2021 11/14/[phone] Encounter Details Date Type Department Care Team (Latest Contact Info) Description 10/16/2022 11:00 AM CDT Anticoagulation Visit Department of Anticoagulation in [place], [place] [address] [place] [address] Yue Alonso M.D. [address] [place] [address] Anticoagulant Therapy (Primary Dx); Mutation [...] How often do you attend anglican or religion serv ices? Never 07/09/2022 Do [...] Answer Date Recorded PHQ-2 Score 0 07/09/2022 [facility] [place] of Occupat ional Health - Occupational Stress [...] file Gender Identity Male 07/02/2017 9:12 AM LANGUAGE PATHOLOGIST Sexual Orientation Straight 07/02/2017 9: 12 AM LANGUAGE PATHOLOGIST documented as of this encounter Patient Instructions * Patient Instructions* Pippa Moarles R.N. - 10/16/2022 11:00 AM CDT Your next INR will be 10/25/22. If you have a finger stick INR [...] please call Primary Care Anticoagulation Program at [phone] from 7:30 am to 4:30 pm. Saturday-Saturday [...] if you start any herbal or other cvom-jwv-ehjknzn product (check with your doctor, a nurse, or pharmacist). If you change your diet significantly. If you decide to stop or start using tobacco or alcohol. If you notice unusual bruising or bleeding. If you notice dark, tarry, or bright red stools or blood in your urine. If you have a painful and swollen calf. documented in this encounter Progress Notes * Pippa Morales R.N. - 10/16/2022 11:00 AM CDT Warfarin Maintenance Nursing Protocol Goal [...] not apply. Provider input required. Additional Info: None Previous INR was supratherapeutic. Today???s INR is Therapeutic. Dosing and follow up recommendation: Protocol does not apply based on positive screening criteria indicated above stating consult required. Consulted Anticoagulation [facility] for plan. Currently bridging: no. INR is therapeutic/supratherapeutic. Additional dosing or follow-up information: Provider consulted: Kira Woods- Anticoagulation [facility] Pt is on injectable anticoagulant: No. Plan used: Consult. See Anticoagulation Track Calendar for dosing and plan details. Anticoagulation Visit Summary: Patient provided with warfarin dosing and next INR appointment via Patient Online Services. Patient encouraged to call or send message back if any questions. Total time spent with patient: 20 minutes documented in this encounter Plan of Treatment Upcoming Encounters Date Type Department Care Team (Latest Contact Info) Description 06/12/2023 4:15 PM LANGUAGE PATHOLOGIST Office Visit Department of Family Medicine, [facility], in [address] [address] Stefan Salomon M.D. [address] [place] [phone] Discharge Disposition: Home or Self Care 06/21/2023 8:50 AM LANGUAGE PATHOLOGIST Appointment Department of Laboratory Medicine in [address] [phone] Stefan Salomon M.D. [address] [place] [phone] 06/21/2023 9:30 AM LANGUAGE PATHOLOGIST Anticoagulation Visit Department of Anticoagulation in [place] [address] [place] [address] Stefan Salomon M.D. [address] [place] [address] [phone] documented as of this encounter Results * INR Reflex, POCT, B (10/26/2022 7:58 AM CDT) INR Reflex, POCT, B Collected DEFAULT 10/26/2022 7:58 AM CDT [place] Blood (Blood, Capillary) 10/26/2022 7:58 AM CDT 10/26/2022 7:58 AM CDT Stefan Salomon M.D. LAB POCT ORDERABLES - DEVICE [facility] [address] [place] [address], [facility] in [address] [address] documented in this encounter Visit Diagnoses Diagnosis Anticoagulant Therapy- Primary Mutation Factor V Leiden Heterozygous (HCC) Monitoring For Therapeutic Drug Therapy Thrombosis Deep Vein Personal History documented in this encounter Additional Health Concerns Assessment Noted Time PHQ-9 Depression Total Score: 0 07/09/19 23 8:29 AM LANGUAGE PATHOLOGIST documented as of this encounter Care Teams Slasher Runner Relationship Specialty Start Date End Date Stefan Salomon M.D. [address] [phone] PCP - General Family Medicine 07/09/22 Anticoagulation Team 07/09/22 documented as of this encounter
--- OUTSIDE RECORDS SUMMARY | 2023-06-11 08:08 | XMS_ITS | Encounter Summary ---
Author Name Unknown Organization [facility] Address [address] [place] [address] Care Team Providers Care Crab Backer Name Role Phone Stefan Salomon M.D. Primary Care Provider [phone] Reason for Visit * Reason Comments Med Refill Encounter Details Date Type Department Care Team (Late st Contact Info) Description 08/28/2022 Refill Department of Family Medicine, [facility], in [address] [phone] Stefan Salomon M.D. [address] [place] [place] [phone] Med Refill Social History Tobacco Use Types [...] week 07/09/2022 How often do you attend buddhist or religion serv ices? Never 07/09/2022 Do you belong to any clubs o r organizations such as buddhist groups, unions, fraternal or athletic groups, or [...] Answer Date Recorded PHQ-2 Score 0 07/09/2022 [facility] of Occupat ional Health - Occupational [...] file Gender Identity Male 07/02/2017 9:12 AM COST ESTIMATOR Sexual Orientation Straight 07/02/2017 9: 12 AM COST ESTIMATOR documented as of this encounter Miscellaneous Notes * Telephone Encounter - Sailaja Gomez, L.PCotyNCoty - 08/30/2022 10:33 AM CDT Controlled substance renewal for Tramadol 50 mg: No nursing concerns Renewal is pended per the controlled substance prescribing plan located in synopsis Date last renewed (start date): 08/01/22 Last provider visit: 08/01/22 Last urine drug screen: 03/05/22 ; Next due: 03/05/23 Screenings due: none Next provider visit due: 02/01/23 Chronic Opioid therapy agreement last reviewed/signed: 03/05/22 * Telephone Encounter - Eileen Cruz Lisandro - 08/28/2022 2:01 PM CDT Images from the original note were not included. Nurse review: Unable to forward request to provider; Controlled Substance, CSA Primary Provider: Stefan Salomon M.D. Pharmacy (include location): [facility] [address] [place] [address] (Pharmacy) [phone] documented in this encounter Plan of Treatment Upcoming Encounters Date Type Department Care Team (Latest Contact Info) Description 06/12/2023 4:15 PM COST ESTIMATOR Office Visit Department of Family Medicine, [facility], in [address] [phone] Stefan Salomon M.D. [address] [place] [phone] Discharge Disposition: Home or Self Care 06/21/2023 8:50 AM COST ESTIMATOR Appointment Department of Laboratory Medicine in [address] [phone] Stefan Salomon M.D. [address] [place] [phone] 06/21/2023 9:30 AM COST ESTIMATOR Anticoagulation Visit Department of Anticoagulation in [place] [address] [place] [phone] Stefan Saolmon M.D. [address] [place] [phone] documented as of this encounter Visit Diagnoses Diagnosis Chronic Pain Syndrome Polyarthralgia Degeneration Disc Cervical documented in this encounter Additional Health Concerns Assessment Noted Time PHQ-9 Depression Total Score: 0 07/09/19 23 8:29 AM COST ESTIMATOR documented as of this encounter Care Teams Crab Backer Relationship Specialty Start Date End Date Stefan Salomon M.D. [address] [phone] PCP - General Family Medicine 07/09/22 Anticoagulation Team 07/09/22 documented as of this encounter
--- OUTSIDE RECORDS SUMMARY | 2023-06-11 08:08 | XMS_ITS | Encounter Summary ---
Author Name Unknown Organization [facility] Address [address] [place] [address] Care Team Providers Care Account Resolution Analyst Name Role Phone Stefan Salomon M.D. Primary Care Provider [phone] Reason for Visit * Reason Comments Med Refill Encounter Details Date Type Department Care Team (Late st Contact Info) Description 07/31/2022 Refill Department of Family Medicine, [facility], in [place], [place] [address] [place] [address] David Alvarenga P.A.-C., P.A. [address] [place] [address] Med Refill Social History Tobacco Use Types [...] week 07/09/2022 How often do you attend yarsanism or sabianism serv ices? Never 07/09/2022 Do you belong to any clubs o r organizations such as yarsanism groups, unions, fraternal or athletic groups, or [...] Answer Date Recorded PHQ-2 Score 0 07/09/2022 [facility] - Occupational Stress Questionnaire Answer Date [...] file Gender Identity Male 07/02/2017 9:12 AM WEED SCIENCE RESEARCH TECHNICIAN Sexual Orientation Straight 07/02/2017 9: 12 AM WEED SCIENCE RESEARCH TECHNICIAN documented as of this encounter Miscellaneous Notes * Telephone Encounter - Destiny Kapoor, LCotyP.N. - 08/01/2022 3:06 PM WEED SCIENCE RESEARCH TECHNICIAN Controlled substance renewal for Tramadol 50 mg: ALERT NURSING CONCERN: prescribing plan does not include duration of prescription and total # to dispense does not match recent prescriptions. Renewal is pended, but missing information provider to complete if okay with renewal due to concerns by nursing Date last renewed (start date): 07/05/2022. Last provider visit: 08/01/2022. Last urine drug screen: 03/05/2022 ; Next due: 09/03/2022. Next provider visit due: 02/01/2023. Chronic Opioid therapy agreement last reviewed/signed: 03/05/2022. * Telephone Encounter - Eileen Cruz RDN, LD - 07/31/2022 3:03 PM WEED SCIENCE RESEARCH TECHNICIAN Nurse review: Unable to forward request to provider; Controlled Substance, CSA Primary Provider: Stefan Salomon M.D. Requested Prescriptions Pending Prescriptions Disp Refills traMADoL (ULTRAM) 50 mg tablet [Pharmacy Med Name: TRAMADOL HCL 50MG TABS] 240 tablet 0 Sig: TAKE 2 TABLETS (100 MG TOTAL) BY MOUTH EVERY 6 HOURS NEEDED FOR PAIN OR SEVERE PAIN OR SCORE 7-10; CAUTION: OPIOID - RISK OF OVERDOSE AND ADDICTION Pharmacy (include location): [facility] [address] [place] [address] SCIENCE RESEARCH TECHNICIAN documented in this encounter Plan of Treatment Upcoming Encounters Date Type Department Care Team (Latest Contact Info) Description 06/12/2023 4:15 PM WEED SCIENCE RESEARCH TECHNICIAN Office Visit Department of Family Medicine, [facility], in [address] [phone] Stefan Salomon M.D. [address] [place] [phone] Discharge Disposition: Home or Self Care 06/21/2023 8:50 AM WEED SCIENCE RESEARCH TECHNICIAN Appointment Department of Laboratory Medicine in [address] [phone] Stefan Salomon M.D. [address] [place] [phone] 06/21/2023 9:30 AM WEED SCIENCE RESEARCH TECHNICIAN Anticoagulation Visit Department of Anticoagulation in [place], [place] [address] [place] [address] Stefan Salomon M.D. [address] [phone] documented as of this encounter Results * (ABNORMAL) Controlled Substance Monitoring Panel, Urine (02/21/2023 2:36 PM CDT) List patient's current medications Not provided 3 10:09 PM CDT [facility] Comment: ----ADDITIONAL INFORMATION---- Accuracy and completeness of declared medications on reports solely dependent on information submitted by client. Creatinine, Random, U 225.8 mg/dL 3 8:56 AM CDT [facility] Specific [place] 1.035 02/23/20 2 3 8:56 AM CDT [facility] pH 5.0 3 8:56 AM CDT [facility] Oxidants Negative Cutoff: 200 mg/L 3 8:56 AM CDT [facility] Comment Normal 3 8:56 AM CDT [facility] Barbiturates Negative Cutoff: 200 ng/mL 3 8:56 AM CDT [facility] Cocaine Negative Cutoff: 150 ng/mL 3 8:56 AM CDT [facility] Comment: This cocaine immunoassay targets benzoylecgonine the primary metabolite of cocaine. Tetrahydrocannabinol Negative Cutoff: 50 ng/mL 3 8:56 AM CDT [facility] Comment: This immunoassay targets delta-9 tetrahydrocannabinol carboxylic acid (THC-COOH), a metabolite of delta-9 tetrahydrocannabinol the main psychoactive ingredient of marijuana. ----ADDITIONAL INFORMATION---- This report is intended for use in clinical monitoring or management of patients. ??It is not intended for use in employment-related testing. Codeine Not Detected Cutoff: 25 ng/mL 3 11:35 PM CDT [facility] Comment:Tylenol 3 Dgzydst-1-osbp-glucuro nide Not Detected Cutoff: 100 ng/mL 3 11:35 PM CDT [facility] Comment:Metabolite of codein e Morphine Not Detected Cutoff: 25 ng/mL 3 11:35 PM CDT [facility] Comment: Kelsey Ornelas, MS Contin; Also a minor metabolite (10%) of codeine and can be seen in low concentrations (<2,000 ng/mL) with poppy seed ingestion. Fowxmujh-8-qxtv-glucur onide Not Detected Cutoff: 100 ng/mL 3 11:35 PM CDT [facility] Comment:Metabolite of morphi ne 6-monoacetylmorphine Not Detected Cutoff: 25 ng/mL 3 11:35 PM CDT [facility] Comment:Metabolite of heroin Hydrocodone Not Detected Cutoff: 25 ng/mL 3 11:35 PM CDT [facility] Comment: Lortab, [place], Vicodin; Also a very minor metabolite of codeine and impurity (<1%) of oxycodone. Norhydrocodone Not Detected Cutoff: 25 ng/mL 3 11:35 PM CDT [facility] Comment:Metabolite of hydroc odone Dihydrocodeine Not Detected Cutoff: 25 ng/mL 3 11:35 PM CDT [facility] Comment:Metabolite of hydroc odone Hydromorphone Not Detected Cutoff: 25 ng/mL 3 11:35 PM CDT [facility] Comment: Dilaudid, Exalgo; Also a metabolite of hydrocodone and a minor (<5%) metabolite of morphine. Qyfbagreestwj-7-znih-g lucuronide Not Detected Cutoff: 100 ng/mL 3 [...] Opana; Al so a metabolite of oxycodone. Ybzcoinvrsq-4-ogqz-glu curonide Not Detected Cutoff: 100 ng/mL 3 [...] ng/mL 3 11:35 PM CDT [facility] Comment:Narcan Gohofdch-2-sard-glucur onide Not Detected Cutoff: 100 ng/mL 3 [...] PM CDT [facility] Comment:Metabolite of tapent adol Ahgnnjjjrp-hkit-ptxvjn onide Not Detected Cutoff: 100 ng/mL 3 [...] developed and its performance characteristics determined by [facility] in a manner consistent with CLIA requirements. [...] 3 1:34 PM CDT [facility] Comment:Ambien Zolpidem Nynboo-7-Isiklajusy acid Not Detected Cutoff: 10 ng/mL 3 [...] developed and its performance characteristics determined by [facility] in a manner consistent with CLIA requirements. [...] 100 ng/mL 3 12:14 PM CDT [facility] 3,2-ibvaefxthctrlo-V-e thylamphetamine (MDEA) Not Detected Cutoff: 100 ng/mL [...] Cutoff: 100 ng/mL 3 12:14 PM CDT SDS Comment:Adipex-P, Lomaira, Q symia Phencyclidine (PCP) Not [...] ed urine, or limitations of testing. 3 12:14 PM CDT [facility] Comment: ----ADDITIONAL INFORMATION---- This test was developed and its performance characteristics determined by [facility] in a manner consistent with CLIA requirements. This test has not been cleared or approved by the U.S. Food and Drug Administration. Urine (Urine, Midstream) 02/21/2023 2:36 PM CDT 02/21/2023 10:09 PM CDT Stefan Salomon M.D. LAB URINE ORDERABLE S [facility] [address] [place] [address] [facility] [address] [place] [address] [facility] [address] [place] [address] [place] [address] documented in this encounter Visit Diagnoses Diagnosis Chronic Pain Syndrome Polyarthralgia Degeneration Disc Cervical documented in this encounter Additional Health Concerns Assessment Noted Time PHQ-9 Depression Total Score: 0 07/09/19 23 8:29 AM WEED SCIENCE RESEARCH TECHNICIAN documented as of this encounter Care Teams Account Resolution Analyst Relationship Specialty Start Date End Date Stefan Salomon M.D. [address] [place] [phone] PCP - General Family Medicine 07/09/22 Anticoagulation Team 07/09/22 documented as of this encounter
--- OUTSIDE RECORDS SUMMARY | 2023-06-11 08:08 | XMS_ITS | Encounter Summary ---
Author Name Unknown Organization [facility] Address [address] [place] [address] Care Team Providers Care Professional Application Designer Name Role Phone Stefan Salomon M.D. Primary Care Provider [phone] Encounter Details Date Type Department Care Team (Latest Contact Info) Description 10/11/2022 8:31 AM CDT - 10/11/2022 11:59 PM CDT Hospital Encounter Department of Laboratory Medicine in [address] [phone] Yue Alonso M.D. [address] [place] [phone] Anticoagulant Therapy; Mutation Factor V Leiden Heterozygous [...] week 07/09/2022 How often do you attend congregation or jewish serv ices? Never 07/09/2022 Do you belong to any clubs o r organizations such as congregation groups, unions, fraternal or athletic groups, or [...] 0 07/09/2022 [facility] - Occupational Stress Questionnaire Answer [...] place to sleep or slept in a retirement (including now)? No 07/09/2022 Depression Answer Date [...] Gender Identity Male 07/02/2017 9:12 AM BUSINESS EXCELLENCE MANAGER Sexual Orientation Straight 07/02/2017 9: 12 AM BUSINESS EXCELLENCE MANAGER documented as of this encounter Medications at [...] Contact Info) Description 06/12/2023 4:15 PM BUSINESS EXCELLENCE MANAGER Office Visit Department of Family Medicine, [facility], in [address] [phone] Stefan Salomon M.D. [address] [place] [phone] Discharge Disposition: Home or Self Care 06/21/2023 8:50 AM BUSINESS EXCELLENCE MANAGER Appointment Department of Laboratory Medicine in [address] [phone] Stefan Salomon M.D. [address] [place] [phone] 06/21/2023 9:30 AM BUSINESS EXCELLENCE MANAGER Anticoagulation Visit Department of Anticoagulation in [place] [address] [place] [address] Stefan Salomon M.D. [address] [place] [phone] documented as of this encounter Procedures Procedure Name Priority Date/Time Associated Diagnosis Comments INR REFLEX, POCT, B Routine 10/11/2022 8:36 AM CDT Anticoagulant Therapy Mutation Factor V Leiden Heterozygous (HCC) Monitoring For Therapeutic Drug Therapy Thrombosis Deep Vein Personal History INR REFLEX, POCT, B Routine 10/11/2022 8:35 AM CDT documented in this encounter Results * INR Reflex, POCT, B (10/11/2022 8:36 AM CDT) INR Reflex, POCT, B Collected DEFAULT 10/11/2022 8:37 AM CDT CNFL Blood (Blood, Capillary) 10/11/2022 8:36 AM CDT 10/11/2022 8:37 AM CDT Yue Alonso M.D. LAB POCT ORDERABLES - DEVICE [facility] [address] [place] [address] in [address] [address] * INR Reflex, POCT, B (10/11/2022 8:35 AM CDT) INR Reflex, POCT, B 4.1 10/11/2022 8:35 AM CDT [facility] Comment: ----ADDITIONAL INFORMATION---- Standard intensity warfarin therapeutic range: 2.0 to 3.0 ?? High intensity warfarin therapeutic range: 2.5 to 3.5 Blood 10/11/2022 8:35 AM CDT 10/11/2022 8:37 AM CDT Generic Rals LAB POCT ORDERABLES - DEVICE [facility] [address] [address], [facility] in [address] [address] documented in this encounter Visit Diagnoses Diagnosis Anticoagulant Therapy Mutation Factor V Leiden Heterozygous (HCC) Monitoring For Therapeutic Drug Therapy Thrombosis Deep Vein Personal History documented in this encounter Additional Health Concerns Assessment Noted Time PHQ-9 Depression Total Score: 0 07/09/19 23 8:29 AM BUSINESS EXCELLENCE MANAGER documented as of this encounter Care Teams Professional Application Designer Relationship Specialty Start Date End Date Stefan Salomon M.D. [address] [place] [phone] PCP - General Family Medicine 07/09/22 Anticoagulation Team 07/09/22 documented as of this encounter
--- OUTSIDE RECORDS SUMMARY | 2023-06-11 08:08 | XMS_ITS | Encounter Summary ---
Author Name Unknown Organization [facility] Address [address] [place] [address] Care Team Providers Care Teleservices Representative Name Role Phone Stefan Salomon M.D. Primary Care Provider [phone] Encounter Details Date Type Department Care Team (Latest Contact Info) Description 09/13/2022 3:00 PM CDT - 09/13/2022 11:59 PM CDT Hospital Encounter Department of Laboratory Medicine in [address] [phone] Stefan Salomon M.D. [address] [place] [address] [phone] Anticoagulant Therapy; Mutation Factor V Leiden Heterozygous (HCC); Monitoring For Therapeutic Drug Therapy; Thrombosis Deep Vein Personal History; Custodial (Current) Anticoagulant Treatment Discharge Disposition: Home or Self Care Social [...] week 07/09/2022 How often do you attend hinduism or mormonism serv ices? Never 07/09/2022 Do you belong to any clubs o r organizations such as hinduism groups, unions, fraternal or athletic groups, or [...] Date Recorded PHQ-2 Score 0 07/09/2022 [facility] - [...] place to sleep or slept in a custodial (including now)? No 07/09/2022 Depression Answer Date [...] Gender Identity Male 07/02/2017 9:12 AM PATROL MOTHER Sexual Orientation Straight 07/02/2017 9: 12 AM PATROL MOTHER documented as of this encounter Medications at [...] Indications: Chronic Pain/Nonacute Pain. 240 tablet 0 09/03/2022 10/04/2022 warfarin (COUMADIN) 5 mg tablet This is your blood thinner prescription. Please take per Anticoagulation visit summary. 120 tablet 3 11/08/2021 10/18/2022 documented as of this encounter Plan of Treatment Upcoming Encounters Date Type Department Care Team (Latest Contact Info) Description 06/12/2023 4:15 PM PATROL MOTHER Office Visit Department of Family Medicine, [facility], in [address] [phone] Stefan Salomon M.D. [address] [place] [address] [phone] Discharge Disposition: Home or Self Care 06/21/2023 8:50 AM PATROL MOTHER Appointment Department of Laboratory Medicine in [address] [phone] Stefan Salomon M.D. [address] [place] [address] [phone] 06/21/2023 9:30 AM PATROL MOTHER Anticoagulation Visit Department of Anticoagulation in [place], [place] [address] [place] [phone] Stefan Salomon M.D. [address] [place] [address] [phone] documented as of this encounter Procedures Procedure Name Priority Date/Time Associated Diagnosis Comments INR REFLEX, POCT, B Routine 09/13/2022 3:53 PM CDT Anticoagulant Therapy Mutation Factor V Leiden Heterozygous (HCC) Monitoring For Therapeutic Drug Therapy Thrombosis Deep Vein Personal History Solar Panel Technician (Current) Anticoagulant Treatment INR REFLEX, POCT, B Routine 09/13/2022 3:52 PM CDT documented in this encounter Results * INR Reflex, POCT, B (09/13/2022 3:53 PM CDT) INR Reflex, POCT, B Collected DEFAULT 09/13/2022 3:55 PM CDT CNFL Blood (Blood, Capillary) 09/13/2022 3:53 PM CDT 09/13/2022 3:55 PM CDT Stefan Salomon M.D. LAB POCT ORDERABLES - DEVICE [facility]- [address] [address], [address] [address] * INR Reflex, POCT, B (09/13/2022 3:52 PM CDT) INR Reflex, POCT, B 3.1 09/13/2022 3:52 PM CDT [facility] Comment: ----ADDITIONAL INFORMATION---- Standard intensity warfarin therapeutic range: 2.0 to 3.0 ?? High intensity warfarin therapeutic range: 2.5 to 3.5 Blood 09/13/2022 3:52 PM CDT 09/13/2022 3:54 PM CDT Generic Rals LAB POCT ORDERABLES - DEVICE Performing Organization Address City/State/[facility] Co de Phone Number [facility]- [address] [address], [address] [address] documented in this encounter Visit Diagnoses Diagnosis Anticoagulant Therapy Mutation Factor V Leiden Heterozygous (HCC) Monitoring For Therapeutic Drug Therapy Thrombosis Deep Vein Personal History Custodial (Current) Anticoagulant Treatment documented in this encounter Additional Health Concerns Assessment Noted Time PHQ-9 Depression Total Score: 0 07/09/19 23 8:29 AM PATROL MOTHER documented as of this encounter Care Teams Teleservices Representative Relationship Specialty Start Date End Date Stefan Salomon M.D. MARIANOI: [phone] [address] [place] [phone] PCP - General Family Medicine 07/09/22 Anticoagulation Team 07/09/22 documented as of this encounter
--- OUTSIDE RECORDS SUMMARY | 2023-06-11 08:08 | XMS_ITS | Encounter Summary ---
Author Name Unknown Organization [facility] Address [address] [place] [address] Care Team Providers Care Health Information Internship Name Role Phone Stefan Salomon M.D. Primary Care Provider [phone] Reason for Referral * Outpatient (Routine) - Authorized Specialty Diagnoses / Procedures Referred By Piero self Referred To Contact Diagnoses Screening Colon Cancer Average Risk Procedures Colonoscopy Stefan Salomon M.D. [address] [place] [phone] [facility] Referral ID Status Reason Start Date Expiration Date V isits Requested Visits Authorized [id number] Authorized 08/01/2022 08/01/2023 1 1 ENTARY SCHOOL ART TEACHER Reason for Visit * Reason Comments Establish Care Has concerns he will talk to you about. Questions regarding colonoscopy * Appointment Request (Routine) - Closed Specialty Diagnoses / Procedures Referred By Piero eslf Referred To Contact Family Medicine Referral ID Status Reason Start Date Expiration Date Visits Re quested Visits Authorized [id number] Closed 07/09/2022 07/09/2023 1 1 Encounter Details Date Type Department Care Team (Late st Contact Info) Description 08/01/2022 10:00 AM ELEMENTARY SCHOOL ART TEACHER Office Visit Department of Family Medicine, [facility], in [address] [phone] Stefan Salomon M.D. [address] [place] [phone] Screening Colon Cancer Average Risk (Primary Dx); Mutation Factor V Leiden Heterozygous (HCC); Activated Protein C Resistance (HCC); Anticoagulant Therapy [Z79.01]; Hypertension Essential Primary; Chronic Pain Syndrome; Neuropathy Peripheral Vasculitic; Insufficiency Venous Discharge Disposition: Home or Self Care Social [...] How often do you attend anabaptism or rastafarian serv ices? Never 07/09/2022 Do you belong [...] Answer Date Recorded PHQ-2 Score 0 07/09/2022 [facility] - [...] file Gender Identity Male 07/02/2017 9:12 AM ELEMENTARY SCHOOL ART TEACHER Sexual Orientation Straight 07/02/2017 9: 12 AM ELEMENTARY SCHOOL ART TEACHER documented as of this encounter Last Filed Vital Signs Vital Sign Reading Time Taken Comments Blood Pressure 136/77 08/01/2022 10:06 AM ELEMENTARY SCHOOL ART TEACHER Pulse 62 08/01/2022 10:06 AM ELEMENTARY SCHOOL ART TEACHER Temperature 36.8 ??C (98.2 ??F) 08/01/2022 9:59 AM CS T Respiratory Rate - - Oxygen Saturation 95% 08/01/2022 9:59 AM ELEMENTARY SCHOOL ART TEACHER Inhaled Oxygen Concentration - - Weight 100 kg (220 lb 14.4 oz) 08/01/2022 9:59 A M ELEMENTARY SCHOOL ART TEACHER Height 176.5 cm (5' 9.49) 08/01/2022 9:59 AM CS T Body Mass Index 32.16 08/01/2022 9:59 AM ELEMENTARY SCHOOL ART TEACHER documented in this encounter Progress Notes * Stefan Salomon M.D. - 08/01/2022 10:00 AM CST SUBJECTIVE CHIEF COMPLAINT / REASON FOR VISIT Teo is a 71 y.o. male who presents for evaluation of Establish Care (Has concerns he will talk toyou about. Questions regarding colonoscopy). HISTORY OF PRESENT ILLNESS Teo is a pleasant 71 y.o. male who presents to clinic today to establish care. He is current treated for multiple conditions to include coagulopathies secondary to heterozygous factor five Leiden and history of multiple blood clots. Currently treated with warfarin with good results. Followed closely by the anticoagulation clinic. He also has a history of significant lower extremity venous insufficiency secondary to multiple blood clots. This also causes him considerable amount of pain which he currently utilizes tramadol and gabapentin with good results. He has been stable on his current dosings for quite some time. He also has a history of chronic non pressure venous ulcers worse during summer when he is working. He is followed closely with a wound clinic in [place] with good results. Patient is due for colonoscopy would like recommendations to have this completed. The following portions of the patient's history were reviewed and updated as appropriate: allergies, current medications, family history, medical history, social history, surgical history, and problem list. Brief Review of Systems: A brief review of systems was negative except for that mentioned in the history of present of illness. OBJECTIVE PHYSICAL EXAM BP 136/77 (BP Location: Left arm, Patient Position: Sitting, Cuff Size: Large) Pulse 62 Temp 36.8 ??C Ht 176.5 cm Wt 100 kg SpO2 95% BMI 32.16 kg/m?? Body mass index is 32.16 kg/m??. GENERAL: Patient is in no distress. Capable of full communication without difficulty. Patient is polite and cooperative. HEENT: Normocephalic. EOMI, PERRL, Canals patent, TMs normal. Oropharynx without lesion of mucosa. Pharyngeal rises symmetrically without exudate. HEART: Regular rate and rhythm. No murmurs, gallops or rubs noted. LUNGS: Clear to auscultation bilaterally. No expiratory wheeze. No accessory muscles of respirationnoted. EXTREMITIES: No neurovascular compromise. No cyanosis, clubbing or edema. NEURO: Alert and oriented x3, nonfocal, moving all 4 extremities. CN II-XII grossly intact. PSYCH: Affect is appropriate ASSESSMENT / PLAN #1 Screening Colon Cancer Average Risk Patient requesting colonoscopy in [place]. Order placed with prep provided. Patient will need bridging giving significant history of clot formation secondary to his genetic conditions. #2 Mutation Factor V Leiden Heterozygous (HCC) #3 Activated Protein C Resistance (HCC) #4 Anticoagulant Therapy [Z79.01] Currently anticoagulated on warfarin therapy. He also has a clotted IVC in place. He is consulted multiple times with vascular who did recommend removal and switching to a NOAC. Patient has deferred both. Continue to work closely with anticoagulation clinic for ongoing management of warfarin. #5 Hypertension Essential Primary Blood pressure at goal although the high end of normal. Will increase losartan to 50 mg daily as well as continue with amlodipine 10 mg daily. Repeat blood pressure check in 2-4 weeks time. #6 Chronic Pain Syndrome #7 Neuropathy Peripheral Vasculitic #8 Insufficiency Venous Patient currently taking gabapentin 300 mg in the afternoon and 900 mg at bedtime. Seems to help with pain and sleep. He also continues to take tramadol 1-2 tablets every 6 hours as needed for pain. He has been stable on this dosing for quite some time and it does provide him relief. CONTROLLED SUBSTANCE PRESCRIBING PLAN Responsible provider: Stefan Salomon M.D. Urine drug screen: every 12 months Follow-up visits/assessments: every 6 months tramadol 50 mg tablets Instructions for use: 1-2 tablets every 6 hours as needed for pain. Quantity to dispense: 240 Prescription duration: other - 30 days Total time 42 minutes. Patient was instructed to follow up [...] understanding of the content. Stefan Salomon M.D. ENTARY SCHOOL ART TEACHER documented in this encounter Plan of Treatment Upcoming Encounters Date Type Department Care Team (Latest Contact Info) Description 06/12/2023 4:15 PM ELEMENTARY SCHOOL ART TEACHER Office Visit Department of Family Medicine, [facility], in [address] [phone] Stefan Salomon M.D. [address] [place] [phone] Discharge Disposition: Home or Self Care 06/21/2023 8:50 AM ELEMENTARY SCHOOL ART TEACHER Appointment Department of Laboratory Medicine in [address] [phone] Stefan Salomon M.D. [address] [place] [phone] 06/21/2023 9:30 AM ELEMENTARY SCHOOL ART TEACHER Anticoagulation Visit Department of Anticoagulation in [place], [place] [address] [place] [phone] Stefan Salomon M.D. [address] [place] [phone] Scheduled Orders Name Type Priority Associated Diagnoses Orde r Schedule Colonoscopy GI Routine Screening Colon Cancer Average Risk Expected: 08/01/2022 (Approximate), Expires: 11/02/2023 documented as of this encounter Visit Diagnoses Diagnosis Screening Colon Cancer Average Risk- Primary Mutation Factor V Leiden Heterozygous (HCC) Activated Protein C Resistance (HCC) Anticoagulant Therapy [Z79.01] Hypertension Essential Primary Chronic Pain Syndrome Neuropathy Peripheral Vasculitic Insufficiency Venous documented in this encounter Additional Health Concerns Assessment Noted Time PHQ-9 Depression Total Score: 0 07/09/19 23 8:29 AM ELEMENTARY SCHOOL ART TEACHER documented as of this encounter Care Teams Health Information Internship Relationship Specialty Start Date End Date Stefan Salomon M.D. [id number] [place] [phone] PCP - General Family Medicine 07/09/22 Anticoagulation Team 07/09/22 documented as of this encounter
--- OUTSIDE RECORDS SUMMARY | 2023-06-11 08:09 | XMS_ITS | Encounter Summary ---
Author Name Unknown Organization [facility] Address [address] [place] [address] Care Team Providers Care Flame Cutting Machine Operator Helper Name Role Phone Yue Alonso M.D. Primary Care Provider [phone] Reason for Visit * Reason Comments Anticoagulation F/U from INR 12/28 a nd plan for Colonoscopy 07/16 Encounter Details Date Type Department Care Team (Latest Contact Info) Description 06/11/2022 Clinical Communication Department of Anticoagulation in [place], [place] [address] [place] [phone] Brittany Llamas, R.N. [address] [place] [phone] Anticoagulation (F/U from INR 12 and plan for Colonoscopy 07/16) Social History Tobacco Use Types Packs/Day Years Used Date Smoking Tobacco: Former Smokeless Tobacco: Never Alcohol Use Standard Drinks/Week Comments No 0 (1 standard drink = 0.6 oz pur e alcohol) Humiliation, Afraid, Rape, and Kick questionnair e Answer Date Recorded Within the last year, have y ou been afraid of your partner or ex-partner? No 03/12/2020 Within the last year, have y ou been humiliated or emotionally abused in other ways by your partner or ex-partner? No Within the last year, have y ou been kicked, hit, slapped, or otherwise physically hurt by your partner or ex-partner? No 03/12/2020 Within the last year, have y ou been raped or forced to have any kind of sexual activity by your partner or ex-partner? No 03/12/2020 Social Connection and Isolat ion Panel [NHANES] Answer Date Recorded In a typical week, how many times do you talk on the phone with family, friends, or neighbors? More than three times a week 03/12/2020 How often do you get togethe r with friends or relatives? Patient declined 03/12/2020 How often do you attend chur ch or caodaism services? Never 03/12/2020 Do you belong to any clubs o r organizations such as adventist groups, unions, fraternal or athletic groups, or school groups? No 03/12/2020 How often do you attend meet ings of the clubs or organizations you belong to? Patient declined 03/12/2020 Are you , , di vorced, , never , or living with a partner? 03/12/2020 AUDIT-C Answer Date Recorded Q1: How often do you have a drink containing alc ohol? Never 03/12/2020 Average Number of Drinks Not on file 020 Frequency of Binge Drinking Not on file 03/03 Overall Financial Resource Strain (CARDIA) Answe r Date Recorded How hard is it for you to pa y for the very basics like food, housing, medical care, and heating? Not hard at all 03/12/2020 PHQ-2 Answer Date Recorded PHQ-2 Score 0 03/05/2022 [facility] - Occupational Stress Questionnaire Answer Date Recorded Do you feel stress - tense, restless, nervous, or anxious, or unable to sleep at night because your mind is troubled all the time - these days? Only a little 03/12/2020 Exercise Vital Sign Answer Date Recorde d On average, how many days pe r week do you engage in moderate to strenuous exercise (like a brisk walk)? 5 days 03/12/2020 On average, how many minutes do you engage in exercise at this level? 100 min 03/12/2020 Hunger Vital Sign Answer Date Recorded Within the past 12 months, y ou worried that your food would run out before you got the money to buy more. Never true 03/12/20 20 Within the past 12 months, t he food you bought just didn't last and you didn't have money to get more. Never true 03/12/2020 PRAPARE - Transportation Answer Date Re corded In the past 12 months, has l ack of transportation kept you from medical appointments or from getting medications? No 03/03 In the past 12 months, has l ack of transportation kept you from meetings, work, or from getting things needed for daily living? No 03/12/2020 Depression Answer Date Recor ded PHQ-9 Total Score (max 27) 5 11/07 Nutrition Answer Date Recorded Nutrition: EVOO Fat Source No 03/23 On average, how many serving s of fruits and vegetables do you eat per day (serving size is equal to 1 cup or approximately the size of a tennis ball)? 2-3 03/23/2020 Dental Answer Date Recorded Dental: Regular Dentist Yes 05/30/20 Education Answer Date Recorded What is the highest level of school you have completed or the highest degree you have received? Associate degree: academic program 03/12/2020 Sex and Gender Information Value Date Recorded Sex Assigned at Not on file Gender Identity Male 07/02/2017 9:12 AM GRADUATE ASSISTANT Sexual Orientation Straight 07/02/2017 9: 12 AM GRADUATE ASSISTANT documented as of this encounter Miscellaneous Notes * Telephone Encounter - Brittany Llamas, RCotyN. - 06/11/2022 10:12 AM CST Patient calls in following up on INR result from 05/30 for recommendations regarding upcoming colonoscopy. Patient states that he does not have voicemail set up on his phone yet. He saw portal message asking him to return our call. Expectations were reviewed with patient about reaching out to us. An ticoagulation number was given to patient today. Patient has colonoscopy coming up on 07/16/22, planin place. Plan reviewed with patient in detail and sent through portal. Patient verbalized understanding. UATE ASSISTANT documented in this encounter Plan of Treatment Upcoming Encounters Date Type Department Care Team (Latest Contact Info) Description 06/12/2023 4:15 PM GRADUATE ASSISTANT Office Visit Department of Family Medicine, [facility], in [address] [phone] Stefan Salomon M.D. [address] [place] [phone] Discharge Disposition: Home or Self Care 06/21/2023 8:50 AM GRADUATE ASSISTANT Appointment Department of Laboratory Medicine in [address] [phone] Stefan Salomon M.D. [address] [place] [phone] 06/21/2023 9:30 AM GRADUATE ASSISTANT Anticoagulation Visit Department of Anticoagulation in [address] [phone] Stefan Salomon M.D. [address] [place] [phone] documented as of this encounter Results * INR Reflex, POCT, B (07/20/2022 8:17 AM GRADUATE ASSISTANT) INR Reflex, POCT, B Collected DEFAULT 07/20/2022 8:18 AM GRADUATE ASSISTANT [id number] Blood (Blood, Capillary) 07/20/2022 8:17 AM GRADUATE ASSISTANT 07/20/2022 8:18 AM GRADUATE ASSISTANT Yue Alonso M.D. LAB POCT ORDERABLES - DEVICE [facility] [address] [place] [address], [facility] FB60 [facility] [place] [address] [place] [address] documented in this encounter Visit Diagnoses Diagnosis Anticoagulant Therapy- Primary Mutation Factor V Leiden Heterozygous (HCC) Monitoring For Therapeutic Drug Therapy Thrombosis Deep Vein Personal History documented in this encounter Additional Health Concerns Assessment Noted Time PHQ-9 Depression Total Score: 5 11/07/ 21 2:00 PM CDT documented as of this encounter Care Teams Flame Cutting Machine Operator Helper Relationship Specialty Start Date End Date Yue Alonso M.D. [address] [place] [phone] PCP - General Family Medicine 07/14/20 07/08/22 documented as of this encounter
--- OUTSIDE RECORDS SUMMARY | 2023-06-11 08:09 | XMS_ITS | Encounter Summary ---
Author Name Unknown Organization [facility] Address [address] [place] [address] Care Team Providers Care Gypsum Block Setter Name Role Phone Stefan Salomon M.D. Primary Care Provider [phone] Reason for Referral * Outpatient (Routine) - Authorized Specialty Diagnoses / Procedures Referred By Contac t Referred To Contact Yue Alonso M.D. [address] [place] [address] [facility] Region Referral ID Status Reason Start Date Expiration Date V isits Requested Visits Authorized [id number] Authorized 07/09/2022 07/08/2025 1 1 Scheduling Instructions Coordinate with Lab appt (when Possible) a few days prior to Provider appt. Last Medicare Annual Wellness Visit 07/09/22. Due on or after 07/10/23. TIRE RECAPPER Reason for Visit * Reason Comments Medicare Annual Wellness Visit Subsequen t * Outpatient (Routine) - Closed Specialty Diagnoses / Procedures Referred By Contac t Referred To Contact David Alvarenga P.A.-C., P.A. [address] [place] [address] [facility] Region Referral ID Status Reason Start Date Expiration Date Visits Re quested Visits Authorized [id number] Closed 07/06/2022 07/05/2025 1 1 Encounter Details Date Type Department Care Team (Late st Contact Info) Description 07/09/2022 7:45 AM AUTO TIRE RECAPPER Office Visit Department of Family Medicine, [facility], in [place], [place] [address] [place] [address] David Alvarenga P.A.-C., P.A. [address] [place] [address] Verenice Yates, Saundra [address] [address] Annual Medicare Examination Return (Primary Dx) Social History Tobacco Use Types Packs/Day Years Used Date Smoking Tobacco: Former Smokeless Tobacco: Never Tobacco Cessation:Counseling Given: Not [...] How often do you attend anabaptism or mu-ism serv ices? Never 07/09/2022 Do [...] Answer Date Recorded PHQ-2 Score 0 07/09/2022 [facility] of Occupat ional Health - Occupational [...] place to sleep or slept in a halfway (including now)? No 07/09/2022 Depression Answer Date [...] file Gender Identity Male 07/02/2017 9:12 AM AUTO TIRE RECAPPER Sexual Orientation Straight 07/02/2017 9: 12 AM AUTO TIRE RECAPPER documented as of this encounter Patient Instructions * Patient Instructions* Verenice Yates RKimberly. - 07/09/2022 7:45 AM AUTO TIRE RECAPPER Thank you for coming in today! Consider: - Placing grab bars in your bathroom for your shower/tub and/or toilet - Reviewing and completing an Advanced Health Care Directive and bringing in a copy to scan for your health record - Yearly eye exams Continue: - Eating a healthy diet; a variety of fruits and vegetables, minimizing processed foods and eating out - Keeping your home free of clutter, minimizing fall risks - Remaining physically active, following an exercise routine if you have one, or being up and moving frequently throughout the day - Remaining active in your community; group activities, volunteering - Staying up to date with your provider, keeping annual exams or follow ups, communicating health changes Reminder: If you have not done so, please schedule an appointment with your provider for follow up for symptoms discussed - nurse visit blood pressure check recommended. TIRE RECAPPER documented in this encounter Progress Notes * Verenice Yates R.N. - 07/09/2022 7:45 AM CST HEALTH ASSESSMENT Reason For Visit Patient presents with Medicare Annual Wellness Visit Subsequent The following portions of the patient's history were reviewed and updated as appropriate:allergies,medications, family history, medical history, problem list, social history, surgical history and care team/suppliers. VITALS: Blood Pressure: (!) 162/78 (07/09/2022 7:39 AM) Temperature: 36.1 ??C (07/09/2022 7:27 AM) Temp Source: Temporal (07/09/2022 7:27 AM) Pulse Rate: 68 (07/09/2022 7:27 AM) Resp Rate: 18 (07/09/2022 7:27 AM) BMI (Calculated): 32.2 kg/m?? (07/09/2022 7:27 AM) SpO2: 96 % (07/09/2022 7:27 AM) Height: 175.7 cm (07/09/2022 7:27 AM) Weight: 99.2 kg (07/09/2022 7:27 AM) Depression Screening PHQ-2 Score: 0 PHQ-9 Total Score (max 27): 0 Mini Cog Cognitive function assessed by direct observation without concerns. Current Opioid Use: Yes. Currently has an opioid treatment plan Yes. Provided information about non-opioid treatment options: Yes, education given. FUNCTIONAL/HOME ENVIRONMENT History of falls: Have you fallen within the last year or do you fear you might fall?: No (37:29 AM) Do you use an assisted device to walk? (Walker, cane, wheelchair, crutch): No (07/09/2022 7:29 AM) Today, do you feel any of the following? Weak, dizzy, shaky, or unsteady?: No (07/09/2022 7:29 AM) Have you taken any medication within the last 6 hours which may make you feel drowsy? Such as sleep, pain, or anxiety medication: No (07/09/2022 7:29 AM) Home Safety: Does your home have throw rugs, poor lighting or slippery bathtub/shower? No Does your home have grab bars in the bathroom, handrails on the stairs and steps? No grab bars in bathroom, does have railings on stairs. Does your home have functional smoke and carbon monoxide alarms? Yes Health Risk Assessment (HRA) and Social Determinants of Health (SDOH) questionnaires were reviewed and the following concerns were prioritized to be addressed during this visit: No concerns identified. Advanced Directive: Advance Directives: Not Received Advanced directive information given. After Visit Summary (AVS) reviewed and patient provided with printed copy TIRE RECAPPER documented in this encounter Plan of Treatment Upcoming Encounters Date Type Department Care Team (Latest Contact Info) Description 06/12/2023 4:15 PM AUTO TIRE RECAPPER Office Visit Department of Family Medicine, [facility], in [address] [phone] Stefan Salomon M.D. [address] [place] [phone] Discharge Disposition: Home or Self Care 06/21/2023 8:50 AM AUTO TIRE RECAPPER Appointment Department of Laboratory Medicine in [address] [phone] Stefan Salomon M.D. [address] [place] [phone] 06/21/2023 9:30 AM AUTO TIRE RECAPPER Anticoagulation Visit Department of Anticoagulation in [address] [phone] Stefan Salomon M.D. [address] [place] [phone] Scheduled Referrals Name Type Priority Associated Diagnoses Orde r Schedule Primary Care nurse visit (clinic) - [facility]; Medicare Annual Wellness Outpatient Referral Routine Expected: 07/09/2023 (Approximate), Expires: 07/09/2025 documented as of this encounter Visit Diagnoses Diagnosis Annual Medicare Examination Return- Primary documented in this encounter Additional Health Concerns Assessment Noted Time PHQ-9 Depression Total Score: 0 07/09/19 23 8:29 AM AUTO TIRE RECAPPER documented as of this encounter Care Teams Gypsum Block Setter Relationship Specialty Start Date End Date Stefan Salomon M.D. [address] [phone] PCP - General Family Medicine 07/09/22 Anticoagulation Team 07/09/22 documented as of this encounter
--- OUTSIDE RECORDS SUMMARY | 2023-06-11 08:09 | XMS_ITS | Encounter Summary ---
Author Name Unknown Organization [facility] Address [address] [place] [address] Care Team Providers Care Chief Of Internal Medicine Name Role Phone Yue Alonso M.D. Primary Care Provider [phone] Reason for Visit * Reason Comments Med Refill Encounter Details Date Type Department Care Team (Late st Contact Info) Description 07/04/2022 Refill Department of Family Medicine, [facility], in [place], [place] [address] [place] [phone] Yue Alonso M.D. [address] [place] [address] Med Refill Social History Tobacco [...] often do you attend chur ch or congregational services? Never 03/12/2020 Do you belong to any clubs o r organizations such as oriental orthodox groups, unions, fraternal or athletic groups, or [...] Answer Date Recorded PHQ-2 Score 0 03/05/2022 [facility] of Occupat ional Health - [...] file Gender Identity Male 07/02/2017 9:12 AM STITCHDOWN THREAD LASTER Sexual Orientation Straight 07/02/2017 9: 12 AM STITCHDOWN THREAD LASTER documented as of this encounter Miscellaneous Notes * Telephone Encounter - Dillan Bear, L.P.N. - 07/05/2022 1:51 PM STITCHDOWN THREAD LASTER Controlled substance renewal for Tramadol 50 mg: ALERT NURSING CONCERN: Update CSPP Renewal is pended as last prescribed last refill referenced where PCP wrote what was intended Date last renewed (start date): 06/05/2022 Last provider visit: 05/17/2022 Last urine drug screen: 03/05/2022 ; Next due: around 09/03/2022 Screenings due: PEG & PHQ9 due, added note to 07/09 visit to update Next provider visit due: scheduled on 07/09/2022 Chronic Opioid therapy agreement last reviewed/signed: 03/05/2022 CHDOWN THREAD LASTER * Telephone Encounter - Lyn Garcia - 07/04/2022 3:56 PM CST Nurse review: Unable to forward request to provider; Controlled Substance, CSA Primary Provider: Yue Alonso M.D. Requested Prescriptions Pending Prescriptions Disp Refills traMADoL (ULTRAM) 50 mg tablet [Pharmacy Med Name: TRAMADOL HCL 50MG TABS] 240 tablet 0 Sig: TAKE TWO TABLETS BY MOUTH EVERY 6 HOURS NEEDED FOR PAIN OR SEVERE PAIN OR SCORE 7-10 OF 10 - CAUTION: OPIOID - RISK OF OVERDOSE AND ADDICTION CHDOWN THREAD LASTER documented in this encounter Plan of Treatment Upcoming Encounters Date Type Department Care Team (Latest Contact Info) Description 06/12/2023 4:15 PM STITCHDOWN THREAD LASTER Office Visit Department of Family Medicine, [facility], in [address] [phone] Stefan Salomon M.D. [address] [place] [phone] Discharge Disposition: Home or Self Care 06/21/2023 8:50 AM STITCHDOWN THREAD LASTER Appointment Department of Laboratory Medicine in [address] [phone] Stefan Salomon M.D. [address] [place] [phone] 06/21/2023 9:30 AM STITCHDOWN THREAD LASTER Anticoagulation Visit Department of Anticoagulation in [place] [address] [address] [place] [address] Stefan Salomon M.D. [address] [place] [phone] documented as of this encounter Visit Diagnoses Diagnosis Chronic Pain Syndrome- Primary Polyarthralgia Degeneration Disc Cervical documented in this encounter Additional Health Concerns Assessment Noted Time PHQ-9 Depression Total Score: 5 11/08/19 21 2:00 PM CDT documented as of this encounter Care Teams Chief Of Internal Medicine Relationship Specialty Start Date End Date Yue Alonso M.D. [address] [place] [phone] PCP - General Family Medicine 07/14/20 07/08/22 documented as of this encounter
--- OUTSIDE RECORDS SUMMARY | 2023-06-11 08:09 | XMS_ITS | Encounter Summary ---
Author Name Unknown Organization [facility] Address [address] [place] [address] Care Team Providers Care Silver Solution Mixer Name Role Phone Stefan Salomon M.D. Primary Care Provider [phone] Reason for Visit * Outpatient (Routine) - Canceled Specialty Diagnoses / Procedures Referred By Contdayana t Referred To Contact Anticoagulation Yue Alonso M.D. [address] [place] [address] [facility] Region Referral ID Status Reason Start Date Expiration Date V isits Requested Visits Authorized [id number] Canceled 11/09/2021 11/09/2022 156 156 Encounter Details Date Type Department Care Team (Latest Contact Info) Description 07/20/2022 8:30 AM DIRECTOR OF AUTOMATION Anticoagulation Visit Department of Anticoagulation in [place], [place] [address] [place] [address] Yue Alonso M.D. 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 Never 07/09/2022 Do you belong to any clubs o r organizations such as religious groups, unions, fraternal or athletic groups, or [...] Answer Date Recorded PHQ-2 Score 0 07/09/2022 [facility] of Occupat ional Health - Occupational Stress [...] file Gender Identity Male 07/02/2017 9:12 AM DIRECTOR OF AUTOMATION Sexual Orientation Straight 07/02/2017 9: 12 AM DIRECTOR OF AUTOMATION documented as of this encounter Patient Instructions * Patient Instructions* Kaleb Alva RKimberly. - 07/20/2022 8:30 AM DIRECTOR OF AUTOMATION Your next INR will be in 8 weeks. To reschedule your appointment or for questions about your warfarin, please call Primary Care Anticoagulation Program at [phone] from 7:30 am to 4:30 pm. Saturday-Saturday [...] if you start any herbal or other [id number]-[id number] product (check with your doctor, a nurse, or pharmacist). If you change your diet significantly. If you decide to stop or start using tobacco or alcohol. If you notice unusual bruising or bleeding. If you notice dark, tarry, or bright red stools or blood in your urine. If you have a painful and swollen calf. CTOR OF AUTOMATION documented in this encounter Progress Notes * Kaleb Alva R.N. - 07/20/2022 8:30 AM CST Warfarin Maintenance Nursing Protocol Goal [...] consecutive outpatient INRs within range. Additional Info: Patient did not have his coloscopy as planned in July; did not hold Warfarin and did not administer Enoxaparin injections. Patient plans to reschedule colonoscopy, not scheduled yet. Previous INR was therapeutic. Today???s INR is [...] has no further questions at this time. and Patient provided with warfarin dosing and next INR appointment via Patient Online Services. Patient encouraged to call or send message back if any questions. Total time spent with patient: N/A CTOR OF AUTOMATION documented in this encounter Plan of Treatment Upcoming Encounters Date Type Department Care Team (Latest Contact Info) Description 06/12/2023 4:15 PM DIRECTOR OF AUTOMATION Office Visit Department of Family Medicine, [facility], in [address] [phone] Stefan Salomon M.D. [address] [place] [phone] Discharge Disposition: Home or Self Care 06/21/2023 8:50 AM DIRECTOR OF AUTOMATION Appointment Department of Laboratory Medicine in [address] [phone] Stefan Salomon M.D. [address] [place] [phone] 06/21/2023 9:30 AM DIRECTOR OF AUTOMATION Anticoagulation Visit Department of Anticoagulation in [place] [address] [place] [address] Stefan Salomon M.D. [address] [place] [phone] documented as of this encounter Results * INR Reflex, POCT, B (09/13/2022 3:53 PM CDT) INR Reflex, POCT, B Collected DEFAULT 09/13/2022 3:55 PM CDT CNFL Blood (Blood, Capillary) 09/13/2022 3:53 PM CDT 09/13/2022 3:55 PM CDT Stefan Salomon M.D. LAB POCT ORDERABLES - DEVICE [facility] [address] [place] [address], [facility] in [address] [address] documented in this encounter Visit Diagnoses Diagnosis Anticoagulant Therapy- Primary Mutation Factor V Leiden Heterozygous (HCC) Monitoring For Therapeutic Drug Therapy Thrombosis Deep Vein Personal History [facility] (Current) Anticoagulant Treatment documented in this encounter Additional Health Concerns Assessment Noted Time PHQ-9 Depression Total Score: 0 07/09/19 23 8:29 AM DIRECTOR OF AUTOMATION documented as of this encounter Care Teams Silver Solution Mixer Relationship Specialty Start Date End Date Stefan Salomon M.D. [address] [place] [phone] PCP - General Family Medicine 07/09/22 Anticoagulation Team 07/09/22 documented as of this encounter
--- OUTSIDE RECORDS SUMMARY | 2023-06-11 08:09 | XMS_ITS | Encounter Summary ---
Author Name Unknown Organization [facility] Address [address] [place] [address] Care Team Providers Care Textile Designer Name Role Phone Stefan Salomon M.D. Primary Care Provider [phone] Encounter Details Date Type Department Care Team (Latest Contact Info) Description 07/20/2022 7:46 AM BRANCH SALES MANAGER - 07/20/2022 11:59 PM BRANCH SALES MANAGER Hospital Encounter Department of Laboratory Medicine in [address] [phone] Yue Alonso M.D. [address] [place] [phone] Anticoagulant Therapy; Mutation Factor V Leiden Heterozygous [...] How often do you attend religious or zoroastrianism serv ices? Never 07/09/2022 Do you belong [...] file Gender Identity Male 07/02/2017 9:12 AM BRANCH SALES MANAGER Sexual Orientation Straight 07/02/2017 9: 12 AM BRANCH SALES MANAGER documented as of this encounter Medications at Time of Discharge Medication Sig Dispensed Refills Start Date End Date fluocinonide (LIDEX) 0.05 % cream Apply twice daily to areas of rash/itch/irritation as needed. DO NOT use on face or skin folds 120 g 2 06/13/2021 hydrocortisone (HYTONE) 2.5 % cream Apply to rash/itch/irritation involving the face and skin folds twice daily as needed 30 g 2 06/13/2021 triamcinolone (KENALOG) 0.1 % cream Apply to rash/itch/irritation involving the trunk and extremities twice daily as needed. DO NOT use on face or skin folds. 454 g 1 06/05/2022 amLODIPine (NORVASC) 10 mg tablet Take 1 tablet (10 mg total) by mouth daily. 90 tablet 3 03/16/2022 03/20/2023 gabapentin (NEURONTIN) 300 mg capsule Take 1 capsule (300 mg total) by mouth 3 (three) times a day. 360 capsule 3 05/17/2022 02/25/2023 losartan (COZAAR) 25 mg tablet Take 1 tablet (25 mg total) by mouth daily. 90 tablet 3 07/09/2022 08/01/2022 traMADoL (ULTRAM) 50 mg tabletIndications: Chronic Pain/Nonacute Pain Take 2 tablets (100 mg total) by mouth every 6 (six) hours as needed for pain or severe pain or score 7-10 of 10 Indications: Chronic Pain/Nonacute Pain. caution: Opioid - Risk of overdose and addiction 240 tablet 0 07/05/2022 08/01/2022 warfarin (COUMADIN) 5 mg tablet This is your blood thinner prescription. Please take per Anticoagulation visit summary. 120 tablet 3 11/08/2021 10/18/2022 zolpidem (AMBIEN) 5 mg tablet TAKE ONE TABLET BY MOUTH AT BEDTIME NEEDED FOR SLEEP 30 tablet 0 01/25/2022 09/13/2022 documented as of this encounter Plan of Treatment Upcoming Encounters Date Type Department Care Team (Latest Contact Info) Description 06/12/2023 4:15 PM BRANCH SALES MANAGER Office Visit Department of Family Medicine, [facility], in [address] [phone] Stefan Salomon M.D. [address] [place] [phone] Discharge Disposition: Home or Self Care 06/21/2023 8:50 AM BRANCH SALES MANAGER Appointment Department of Laboratory Medicine in [address] [phone] Stefan Salomon M.D. [address] [phone] 06/21/2023 9:30 AM BRANCH SALES MANAGER Anticoagulation Visit Department of Anticoagulation in [place], [place] [address] [place] [address] Stefan Salomon M.D. [phone] [place] [phone] documented as of this encounter Procedures Procedure Name Priority Date/Time Associated Diagnosis Comments INR REFLEX, POCT, B Routine 07/20/2022 8:17 AM BRANCH SALES MANAGER INR REFLEX, POCT, B Routine 07/20/2022 8:17 AM BRANCH SALES MANAGER Anticoagulant Therapy Mutation Factor V Leiden Heterozygous (HCC) Monitoring For Therapeutic Drug Therapy Thrombosis Deep Vein Personal History documented in this encounter Results * INR Reflex, POCT, B (07/20/2022 8:17 AM BRANCH SALES MANAGER) INR Reflex, POCT, B 2.8 07/20/2022 8:17 AM BRANCH SALES MANAGER [id number] Comment: ----ADDITIONAL INFORMATION---- Standard intensity warfarin therapeutic range: 2.0 to 3.0 ?? High intensity warfarin therapeutic range: 2.5 to 3.5 Blood 07/20/2022 8:17 AM BRANCH SALES MANAGER 07/20/2022 8:19 AM BRANCH SALES MANAGER Generic Rals LAB POCT ORDERABLES - DEVICE [facility] [address] [facility] [place] [address], [place] FB60 [facility] in [place] [address] [place] [address] * INR Reflex, POCT, B (07/20/2022 8:17 AM BRANCH SALES MANAGER) INR Reflex, POCT, B Collected DEFAULT 07/20/2022 8:18 AM BRANCH SALES MANAGER [id number] Blood (Blood, Capillary) 07/20/2022 8:17 AM BRANCH SALES MANAGER 07/20/2022 8:18 AM BRANCH SALES MANAGER Yue Alonso M.D. LAB POCT ORDERABLES - DEVICE [facility] [address] [place] [address], [facility] FB60 [facility] in [place] [address] [place] [address] documented in this encounter Visit Diagnoses Diagnosis Anticoagulant Therapy Mutation Factor V Leiden Heterozygous (HCC) Monitoring For Therapeutic Drug Therapy Thrombosis Deep Vein Personal History documented in this encounter Additional Health Concerns Assessment Noted Time PHQ-9 Depression Total Score: 0 07/09/19 23 8:29 AM BRANCH SALES MANAGER documented as of this encounter Care Teams Textile Designer Relationship Specialty Start Date End Date Stefan Salomon M.D. [address] [place] [phone] PCP - General Family Medicine 07/09/22 Anticoagulation Team 07/09/22 documented as of this encounter
--- OUTSIDE RECORDS SUMMARY | 2023-06-11 08:09 | XMS_ITS | Encounter Summary ---
Author Name Unknown Organization [facility] Address [address] [place] [address] Care Team Providers Care Communications Representative Name Role Phone Stefan Salomon M.D. Primary Care Provider [phone] Reason for Visit * Reason Onset Date Comments canceled colonoscopy 07/09/2022 Encounter Details Date Type Department Care Team (Latest Contact Info) Description 07/09/2022 Clinical Communication Department of General Surgery in [place], [place] [address] [phone] Lamine Martel M.D. [address] [phone] canceled colonoscopy Social History Tobacco Use Types Packs/Day Years [...] week 07/09/2022 How often do you attend druze or baptist serv ices? Never 07/09/2022 Do you belong to any clubs o r organizations such as druze groups, unions, fraternal or athletic groups, or [...] file Gender Identity Male 07/02/2017 9:12 AM FROZEN MEAT CUTTER Sexual Orientation Straight 07/02/2017 9: 12 AM FROZEN MEAT CUTTER documented as of this encounter Plan of Treatment Upcoming Encounters Date Type Department Care Team (Latest Contact Info) Description 06/12/2023 4:15 PM FROZEN MEAT CUTTER Office Visit Department of Family Medicine, [facility], in [address] [phone] Stefan Salomon M.D. [address] [place] [phone] Discharge Disposition: Home or Self Care 06/21/2023 8:50 AM FROZEN MEAT CUTTER Appointment Department of Laboratory Medicine in [address] [phone] Stefan Salomon M.D. [address] [place] [phone] 06/21/2023 9:30 AM FROZEN MEAT CUTTER Anticoagulation Visit Department of Anticoagulation in [place], [place] [address] [place] [address] Stefan Salomon M.D. [address] [place] [phone] documented as of this encounter Visit Diagnoses Not on filedocumented in this encounter Additional Health Concerns Assessment Noted Time PHQ-9 Depression Total Score: 0 07/09/19 23 8:29 AM FROZEN MEAT CUTTER documented as of this encounter Care Teams Communications Representative Relationship Specialty Start Date End Date Stefan Salomon M.D. [address] [place] [phone] PCP - General Family Medicine 07/09/22 Anticoagulation Team 07/09/22 documented as of this encounter
--- OUTSIDE RECORDS SUMMARY | 2023-06-11 08:09 | XMS_ITS | Encounter Summary ---
Author Name Unknown Organization [facility] Address [address] [place] [address] Care Team Providers Care Salt Washer Name Role Phone Stefan Salomon M.D. Primary Care Provider [phone] Reason for Visit * Reason Onset Date Comments Nurse Visit 07/20/2022 Blood pressure c heck Encounter Details Date Type Department Care Team (Latest Contact Info) Description 07/20/2022 Clinical Communication Department of Family Medicine, [facility], in [place], [place] [address] [place] [phone] Yue Alonso M.D. [address] [place] [phone] Nurse Visit (Blood pressure check) Social History Tobacco Use Types Packs/Day Years [...] How often do you attend scientology or catholic serv ices? Never 07/09/2022 Do you [...] Answer Date Recorded PHQ-2 Score 0 07/09/2022 [facility] - Occupational Stress Questionnaire Answer Date [...] file Gender Identity Male 07/02/2017 9:12 AM FUR TRIMMING MACHINE OPERATOR Sexual Orientation Straight 07/02/2017 9: 12 AM FUR TRIMMING MACHINE OPERATOR documented as of this encounter Miscellaneous Notes * Telephone Encounter - Drea Zafar, C.M.A. - 07/23/2022 9:49 AM FUR TRIMMING MACHINE OPERATOR Left message for patient to return call to clinic. Does the patient need to speak to nursing? no Action needed: Need to let patient know to continue with the same management plan for his HTN TRIMMING MACHINE OPERATOR * Telephone Encounter - Drea Zafar C.M.A. - 07/20/2022 1:37 PM FUR TRIMMING MACHINE OPERATOR Left message for patient to return call to clinic. Does the patient need to speak to nursing? no Action needed: Need to let patient know to continue with the same management plan for his HTN TRIMMING MACHINE OPERATOR * Telephone Encounter - Eloina Painter L.P.N. - 07/20/2022 9:55 AM FUR TRIMMING MACHINE OPERATOR Today's blood pressure reading and prior two readings: BP Readings from Last 3 Encounters: 07/20/22 135/77 07/09/22 (!) 162/78 05/17/22 135/77 . Medication list was reconciled, and patient is taking their blood pressure medication as prescribed. The patient reports no acute symptoms of hypertension Based on today's readings: The provider will be notified of today's visit and the patient was dismissed TRIMMING MACHINE OPERATOR documented in this encounter Plan of Treatment Upcoming Encounters Date Type Department Care Team (Latest Contact Info) Description 06/12/2023 4:15 PM FUR TRIMMING MACHINE OPERATOR Office Visit Department of Family Medicine, [facility], in [address] [phone] Stefan Salomon M.D. [address] [place] [phone] Discharge Disposition: Home or Self Care 06/21/2023 8:50 AM FUR TRIMMING MACHINE OPERATOR Appointment Department of Laboratory Medicine in [address] [phone] Stefan Salomon M.D. [address] [place] [phone] 06/21/2023 9:30 AM FUR TRIMMING MACHINE OPERATOR Anticoagulation Visit Department of Anticoagulation in [place], [place] [address] [place] [address] Stefan Salomon M.D. [address] [place] [phone] documented as of this encounter Visit Diagnoses Not on filedocumented in this encounter Additional Health Concerns Assessment Noted Time PHQ-9 Depression Total Score: 0 07/09/19 23 8:29 AM FUR TRIMMING MACHINE OPERATOR documented as of this encounter Care Teams Salt Washer Relationship Specialty Start Date End Date Stefan Salomon M.D. [address] [place] [phone] PCP - General Family Medicine 07/09/22 Anticoagulation Team 07/09/22 documented as of this encounter
--- OUTSIDE RECORDS SUMMARY | 2023-06-11 08:09 | XMS_ITS | Encounter Summary ---
Author Name Unknown Organization [facility] Address [address] [place] [address] Care Team Providers Care Him Clerk Name Role Phone Stefan Salomon M.D. Primary Care Provider [phone] Reason for Visit * Reason Comments Nurse Visit Blood pressure check * Outpatient (Routine) - Authorized Specialty Diagnoses / Procedures Referred By Piero t Referred To Contact Yue Alonso M.D. [address] [place] [phone] [facility] Region Referral ID Status Reason Start Date Expiration Date V isits Requested Visits Authorized [id number] Authorized 07/09/2022 07/08/2025 1 1 Encounter Details Date Type Department Care Team (Late st Contact Info) Description 07/20/2022 8:15 AM FISCAL AGENT Nurse Only Department of Family Medicine, [facility], in [place], [place] [address] [place] [address] Yue Alonso M.D. [address] [place] [address] Eloina Painter L.P.NCoty Nurse Visit (Blood pressure check) Social History [...] week 07/09/2022 How often do you attend lutheran or lutheran serv ices? Never 07/09/2022 Do you belong to any clubs o r organizations such as lutheran groups, unions, fraternal or athletic groups, or [...] Answer Date Recorded PHQ-2 Score 0 07/09/2022 [facility] [place] [facility] - Occupational Stress [...] file Gender Identity Male 07/02/2017 9:12 AM FISCAL AGENT Sexual Orientation Straight 07/02/2017 9: 12 AM FISCAL AGENT documented as of this encounter Last Filed Vital Signs Vital Sign Reading Time Taken Comments Blood Pressure 135/77 07/20/2022 8:03 AM FISCAL AGENT rec heck Pulse 66 07/20/2022 8:03 AM FISCAL AGENT Temperature - - Respiratory Rate - - Oxygen Saturation - - Inhaled Oxygen Concentration - - Weight - - Height - - Body Mass Index - - documented in this encounter Progress Notes * Eloina Painter L.P.N. - 07/20/2022 8:15 AM CST Teo is seen today for a blood pressure visit as ordered by Celeste. Visit was conducted in clinic. Today's blood pressure reading and prior two readings: BP Readings from Last 3 Encounters: 07/20/22 135/77 07/09/22 (!) 162/78 05/17/22 135/77 . Medication list was reconciled, and patient is taking their blood pressure medication as prescribed. The patient reports no acute symptoms of hypertension Based on today's readings: The provider will be notified of today's visit and the patient was dismissed AL AGENT documented in this encounter Plan of Treatment Upcoming Encounters Date Type Department Care Team (Latest Contact Info) Description 06/12/2023 4:15 PM FISCAL AGENT Office Visit Department of Family Medicine, [facility], in [address] [phone] Stefan Salomon M.D. [address] [place] [phone] Discharge Disposition: Home or Self Care 06/21/2023 8:50 AM FISCAL AGENT Appointment Department of Laboratory Medicine in [address] [phone] Stefan Salomon M.D. [address] [place] [phone] 06/21/2023 9:30 AM FISCAL AGENT Anticoagulation Visit Department of Anticoagulation in [place], [place] [address] [place] [address] Stefan Salomon M.D. [address] [place] [phone] documented as of this encounter Visit Diagnoses Diagnosis Hypertension Essential Primary- Primary documented in this encounter Additional Health Concerns Assessment Noted Time PHQ-9 Depression Total Score: 0 07/09/19 23 8:29 AM FISCAL AGENT documented as of this encounter Care Teams Him Clerk Relationship Specialty Start Date End Date Stefan Salomon M.D. [address] [place] [phone] PCP - General Family Medicine 07/09/22 Anticoagulation Team 07/09/22 documented as of this encounter
--- OUTSIDE RECORDS SUMMARY | 2023-06-11 08:09 | XMS_ITS | Encounter Summary ---
Author Name Unknown Organization [facility] Address [address] [place] [address] Care Team Providers Care Insulation Professional Name Role Phone Stefan Salomon M.D. Primary Care Provider [phone] Reason for Visit * Appointment Request (Routine) - Closed Specialty Diagnoses / Procedures Referred By Piero self Referred To Contact Dermatology Diagnoses Rash Referral ID Status Reason Start Date Expiration Date Visits Re quested Visits Authorized [id number] Closed 05/22/2022 05/22/2023 1 1 Encounter Details Date Type Department Care Team (Latest Contact Info) Description 07/27/2022 11:00 AM FURNACE ERECTOR Office Visit Department of Dermatology in [place], [place] [address] [place] [address] Elizabeth Morley M.D. [address] [place] [phone] Dermatoheliosis (Primary Dx); Keratosis Actinic; Dermatitis Discharge Disposition: Home or Self Care Social [...] How often do you attend jain or muslim serv ices? Never 07/09/2022 Do you belong [...] Answer Date Recorded PHQ-2 Score 0 07/09/2022 [facility] - Occupational Stress [...] No 07/09/2022 Housing Stability Vital Sign Answer Tyhsawn e Recorded In the last 12 months, [...] Date Recorded Dental: Regular Dentist Yes 05/30/20 22 Employment Answer Date Recorded Employment status Employed and actively working without restrictions 07/09/2022 Education Answer Date Recorded What is the highest level of school you have completed or the highest degree you have received? Bachelor's degree (e.g., BA, AB, BS) 07/09/2022 Sex and Gender Information Value Date Recorded Sex Assigned at Not on file Gender Identity Male 07/02/2017 9:12 AM FURNACE ERECTOR Sexual Orientation Straight 07/02/2017 9: 12 AM FURNACE ERECTOR documented as of this encounter Consult Notes * Elizabeth Morley M.D. - 07/27/2022 11:00 AM CST REFERRED BY No referring provider defined for this encounter. Supervised by: Dr. Garcias Correspondence to Elizabeth Jaeger M.D. Patient seen and discussed with supervising java consultant,who evaluated the patient and concurs with the assessment and plan. CHIEF COMPLAINT / REASON FOR VISIT Follow-up for rash and rough spots in the scalp, waist up skin examination HISTORY OF PRESENT ILLNESS Mr. Wesley Bautista is a pleasant 71 y.o. male who presents today for follow-up evaluation of rash and rough spots in the scalp. He was last seen in Dermatology on 06/08/2021. Please see that last note for full details regarding his history. He had a biopsy performed on 05/29/2021 from the right lower abdomen of his rash, and it demonstrated spongiotic subacute dermatitis with intra corneal pustules, perivascular and interstitial mixed lymphocytic inflammation including neutrophils and eosinophils. It was recommended that he apply triamcinolone 0.1% cream to these areas. Today he reports that there have been some persistent areas. He reports that the triamcinolone resolves the itch but the redness can still remain. He denies any of these lesions are painful or rapidly growing. He doesreport rough spots on his scalp that are otherwise asymptomatic. No other cutaneous concerns today. PAST MEDICAL HISTORY Reviewed FAMILY HISTORY Reviewed Allergies Allergen Reactions Atorvastatin Myalgia Leg Pain/Cramps PHYSICAL EXAM General: Awake, alert, in no acute distress, and with appropriate affect. Skin: I have examined the scalp, face, neck, chest, abdomen, back, bilateral upper extremities. Jeter type 2 skin and moderate dermatoheliosis. Skin examination is notable for multiple brown macules varying in size with regular borders, symmetry, and reassuring pigment patterns under dermoscopy. There are also scattered smooth javier red dome-shaped papules on the trunk and extremities consistent with javier angiomas. Scattered on the trunk and extremities are also multiple mast to dark brown, stuck on waxy, papules and plaques consistent with seborrheic keratoses. There are 5 actinic keratoses involving the scalp. Scattered on the trunk and extremities are a few erythematous scaly papules and a few scaly patches on the bilateral dorsal hands. ASSESSMENT / PLAN #1 Dermatitis We reviewed the diagnosis of dermatitis as well as management options in detail today. We reviewed dry and sensitive skin care recommendations. We will have him switch from triamcinolone to clobetasol ointment for application on the trunk and extremities. I discussed that if there are any areas of continued to remain persistent and do not resolve with clobetasol, then we can obtain a repeat biopsy for further evaluation. #2 Dermatoheliosis #3 Skin cancer screening exam No worrisome findings for skin cancer today. Recommend sun protection, sun avoidance, and monthly skin self-examination. The warning signs and symptoms of skin cancer were discussed. I recommended using an [id number] sunscreen with at least SPF 30 or higher. Recommend a full skin cancer screening examination with an appropriately trained clinician every year or sooner should concerns arise. #4 Actinic keratoses x 5, located on the scalp Given the precancerous nature of this lesion(s), treatment is medically indicated. After discussionof the risks, benefits and alternatives to treatment with cryotherapy, informed consent was obtained. We treated a total of 5 lesion(s) with two 20-second freeze-thaw cycles of liquid nitrogen cryotherapy with supervising java consultant present. Patient tolerated the procedure well. Aftercare instructions given. Should any of these lesions recur, the patient should return for biopsy or further evaluation. #5 Diffuse actinic damage of scalp We reviewed field treatment options today including Efudex. After discussion of risks, benefits, alternatives, he wished to proceed. I recommend application of Efudex twice daily for 2-3 weeks as tolerated. We reviewed the expected reaction. #6 Multiple nevi The ABCDE criteria for melanoma was reviewed with the patient. None of the patient's nevi reach theclinical threshold for biopsy. Recommend continued sun protection, self-skin examinations, and observation. Should any of the patient's nevi change in size, color, texture, or shape or develop symptoms such as itching or bleeding, recommend an immediate return visit for reassessment. #7 Javier angiomas #8 Solar lentigines #9 Seborrheic keratoses The benign nature of the skin lesion(s) was discussed with the patient. No treatment is required. Irecommend continued observation. Should symptoms or changes develop related to this condition, I would recommend a return visit for reassessment. The patient expresses understanding and is in agreement with the plan. All questions were answered to the best of my ability. It was a pleasure seeing Mr. Wesley Izquierdo Lily today. Elizabeth Morley MD Dermatology Resident, PGY-4 Pager: [phone] ACE ERECTOR Associated attestation - Brent Garcias M.D., M.B.A. - 07/27/2022 2:36 PM FURNACE ERECTOR I saw and evaluated the patient, participating in the dsouza portions of the service. I reviewed the resident/fellow???s note. I agree with the resident/fellow???s findings and plan. documented in this encounter Plan of Treatment Upcoming Encounters Date Type Department Care Team (Latest Contact Info) Description 06/12/2023 4:15 PM FURNACE ERECTOR Office Visit Department of Family Medicine, [facility], in [address] [phone] Stefan Salomon M.D. [address] [place] [phone] Discharge Disposition: Home or Self Care 06/21/2023 8:50 AM FURNACE ERECTOR Appointment Department of Laboratory Medicine in [address] [phone] Stefan Salomon M.D. [address] [place] [phone] 06/21/2023 9:30 AM FURNACE ERECTOR Anticoagulation Visit Department of Anticoagulation in [place] [address] [place] [address] Stefan Salomon M.D. [address] [place] [phone] documented as of this encounter Visit Diagnoses Diagnosis Dermatoheliosis- Primary Keratosis Actinic Dermatitis documented in this encounter Additional Health Concerns Assessment Noted Time PHQ-9 Depression Total Score: 0 07/09/19 23 8:29 AM FURNACE ERECTOR documented as of this encounter Care Teams Insulation Professional Relationship Specialty Start Date End Date Stefan Salomon M.D. [address] [phone] PCP - General Family Medicine 07/09/22 Anticoagulation Team 07/09/22 documented as of this encounter
--- OUTSIDE RECORDS SUMMARY | 2023-06-11 08:09 | XMS_ITS | Encounter Summary ---
Author Name Unknown Organization [facility] Address [address] [place] [address] Care Team Providers Care Employee Relations Specialist Name Role Phone Stefan Salomon M.D. Primary Care Provider [phone] Reason for Visit * Reason Onset Date Comments Pre-visit Intake 07/26/2022 Encounter Details Date Type Department Care Team (Latest Contact Info) Description 07/26/2022 7:15 AM INSTRUCTOR FLYING Clinical Communication Virtual Review in [place], [place] [address] [place], [place] [phone] Pre-visit Intake Social History Tobacco Use Types Packs/Day Years [...] week 07/09/2022 How often do you attend caodaism or mormon serv ices? Never 07/09/2022 Do you belong to any clubs o r organizations such as caodaism groups, unions, fraternal or athletic groups, or [...] 0 07/09/2022 [facility] ional [facility] - [...] file Gender Identity Male 07/02/2017 9:12 AM INSTRUCTOR FLYING Sexual Orientation Straight 07/02/2017 9: 12 AM INSTRUCTOR FLYING documented as of this encounter Plan of Treatment Upcoming Encounters Date Type Department Care Team (Latest Contact Info) Description 06/12/2023 4:15 PM INSTRUCTOR FLYING Office Visit Department of Family Medicine, [facility], in [address] [phone] Stefan Salomon M.D. [address] [place] [phone] Discharge Disposition: Home or Self Care 06/21/2023 8:50 AM INSTRUCTOR FLYING Appointment Department of Laboratory Medicine in [address] [phone] Stefan Salomon M.D. [address] [phone] 06/21/2023 9:30 AM INSTRUCTOR FLYING Anticoagulation Visit Department of Anticoagulation in [place], [place] [address] [place] [address] Stefan Salomon M.D. [address] [place] [phone] documented as of this encounter Visit Diagnoses Not on filedocumented in this encounter Additional Health Concerns Assessment Noted Time PHQ-9 Depression Total Score: 0 07/09/19 23 8:29 AM INSTRUCTOR FLYING documented as of this encounter Care Teams Employee Relations Specialist Relationship Specialty Start Date End Date Stefan Salomon M.D. [address] [place] [phone] PCP - General Family Medicine 07/09/22 Anticoagulation Team 07/09/22 documented as of this encounter
--- OUTSIDE RECORDS SUMMARY | 2023-06-11 08:09 | XMS_ITS | Encounter Summary ---
Author Name Unknown Organization [facility] Address [address] [place] [address] Care Team Providers Care Sports Analyst Name Role Phone Stefan Salomon M.D. Primary Care Provider [phone] Reason for Referral * Outpatient (Routine) - Closed Specialty Diagnoses / Procedures Referred By Piero self Referred To Contact Diagnoses Preoperative Exam Procedures ECG 12 Lead Yue Alonso M.D. [address] [place] [phone] [facility] Referral ID Status Reason Start Date Expiration Date Visits Re quested Visits Authorized [id number] Closed 07/09/2022 07/09/2023 1 1 VISION ANNOUNCER Reason for Visit * Outpatient (Routine) - Closed Specialty Diagnoses / Procedures Referred By Piero self Referred To Contact Diagnoses Preoperative Exam Procedures ECG 12 Lead Yue Alonso M.D. [address] [place] [phone] [facility] Referral ID Status Reason Start Date Expiration Date Visits Re quested Visits Authorized [id number] Closed 07/09/2022 07/09/2023 1 1 Encounter Details Date Type Department Care Team (Latest Contact Info) Description 07/09/2022 8:44 AM TELEVISION ANNOUNCER - 07/09/2022 11:59 PM TELEVISION ANNOUNCER Hospital Encounter Department of Laboratory Medicine in [place], [place] [address] [place] [phone] Yue Alonso M.D. [address] [place] [address] [place] [phone] Preoperative Exam Discharge Disposition: Home or Self Care Social [...] week 07/09/2022 How often do you attend mormonism or taoism serv ices? Never 07/09/2022 Do you belong to any clubs o r organizations such as mormonism groups, unions, fraternal or athletic groups, or [...] Answer Date Recorded PHQ-2 Score 0 07/09/2022 [facility] - Occupational Stress [...] file Gender Identity Male 07/02/2017 9:12 AM TELEVISION ANNOUNCER Sexual Orientation Straight 07/02/2017 9: 12 AM TELEVISION ANNOUNCER documented as of this encounter Medications at [...] mouth daily. 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 Per periprocedure plans. 11 mL 0 06/11/2022 07/20/2022 gabapentin (NEURONTIN) 300 mg capsule Take 1 capsule (300 mg total) by mouth 3 (three) times a day. 360 capsule 3 05/17/2022 02/25/2023 losartan (COZAAR) 25 mg tablet Take 1 tablet (25 mg total) by mouth daily. 90 tablet 3 07/09/2022 08/01/2022 miscellaneous medical supply miscIndications:Sta sis Ulcer Varicose Vein Right (HCC),Stasis Ulcer With Varicose Vein Left (HCC) Bandage Conform 4 2247 12 PK 4 each 02/10/2020 07/20/2022 miscellaneous medical supply miscIndications:Sta sis Ulcer Varicose Vein Right (HCC),Stasis Ulcer With Varicose Vein Left (HCC) Tape Transpore 1 2 each 02/10/2020 07/20/2022 miscellaneous medical supply miscIndications:Sta sis Ulcer Varicose Vein Right (HCC),Stasis Ulcer With Varicose Vein Left (HCC) Bandage Elastic DBL 4IN Deluxe 6 each 02/10/2020 07/20/2022 miscellaneous medical supply miscIndications:Sta sis Ulcer Varicose Vein Right (HCC),Stasis Ulcer With Varicose Vein Left (HCC) Sponge 4x4 4Ply 9024 200 PK 200 each 02/10/2020 07/20/2022 traMADoL (ULTRAM) 50 mg tabletIndications:C hronic Pain/Nonacute [...] (Latest Contact Info) Description 06/12/2023 4:15 PM TELEVISION ANNOUNCER Office Visit Department of Family Medicine, [facility], in [address] [place] [phone] Stefan Salomon M.D. [address] [place] [phone] Discharge Disposition: Home or Self Care 06/21/2023 8:50 AM TELEVISION ANNOUNCER Appointment Department of Laboratory Medicine in [address] [phone] Stefan Salomon M.D. [address] [place] [phone] 06/21/2023 9:30 AM TELEVISION ANNOUNCER Anticoagulation Visit Department of Anticoagulation in [place], [place] [address] [place] [address] Stefan Salomon M.D. [address] [place] [phone] documented as of this encounter Procedures Procedure Name Priority Date/Time Associated Diagnosis Comments ECG Routine 07/09/2022 8:57 AM TELEVISION ANNOUNCER Preoperative Exam documented in this encounter Results * ECG 12 Lead (07/09/2022 8:57 AM TELEVISION ANNOUNCER) Ventricular Rate ECG/Min 58 BPM MUSE [place] Interval 168 ms MUSE QRSD Interval 114 ms MUSE QT Interval 430 ms MUSE QTC Interval 422 ms MUSE P [place] 18 degrees MUSE R [place] -1 degrees MUSE T Wave [place] 32 degrees MUSE 07/09/2022 8:57 AM TELEVISION ANNOUNCER 07/09/2022 9:36 AM TELEVISION ANNOUNCER Impressions MUSE - 07/09/2022 9:00 AM TELEVISION ANNOUNCER Poor data quality Sinus bradycardia Cannot rule out Inferior infarct Nonspecific ST abnormality When compared with ECG of 07-SEP-2009 12:13, No significant change was found Reviewed by JESSY Munoz Narrative Procedure Note Saulo Leong M.D. - 07/09/2022 IMPRESSION: Poor data quality Sinus bradycardia Cannot rule out Inferior infarct Nonspecific ST abnormality When compared with ECG of 07-SEP-2009 12:13, No significant change was found Reviewed by JESSY Munoz Yue Alonso M.D. ECG ORDERABLES MUSE NA documented in this encounter Visit Diagnoses Diagnosis Preoperative Exam documented in this encounter Additional Health Concerns Assessment Noted Time PHQ-9 Depression Total Score: 0 07/09/19 23 8:29 AM TELEVISION ANNOUNCER documented as of this encounter Care Teams Sports Analyst Relationship Specialty Start Date End Date Stefan Salomon M.D. [address] [place] [phone] PCP - General Family Medicine 07/09/22 Anticoagulation Team 07/09/22 documented as of this encounter
--- OUTSIDE RECORDS SUMMARY | 2023-06-11 08:09 | XMS_ITS | Encounter Summary ---
Author Name Unknown Organization [facility] Address [address] [place] [address] Care Team Providers Care Gum Remover Name Role Phone Stefan Salomon M.D. Primary Care Provider [phone] Reason for Referral * Outpatient (Routine) - Closed Specialty Diagnoses / Procedures Referred By Contac t Referred To Contact Diagnoses Preoperative Exam Procedures ECG 12 Lead Yue Alonso M.D. [address] [place] [phone] [facility] Referral ID Status Reason Start Date Expiration Date Visits Re quested Visits Authorized [id number] Closed 07/09/2022 07/09/2023 1 1 FITTER * Outpatient (Routine) - Authorized Specialty Diagnoses / Procedures Referred By Contac t Referred To Contact Yue Alonso M.D. [address] [place] [phone] [facility] Region Referral ID Status Reason Start Date Expiration Date V isits Requested Visits Authorized [id number] Authorized 07/09/2022 07/08/2025 1 1 FITTER Reason for Visit * Reason Comments Pre-op Exam Colonoscopy with Dr. Willson on 07/16 * Appointment Request (Routine) - Closed Specialty Diagnoses / Procedures Referred By Contac t Referred To Contact Family Medicine Referral ID Status Reason Start Date Expiration Date Visits Re quested Visits Authorized [id number] Closed 03/13/2022 03/13/2023 1 1 Encounter Details Date Type Department Care Team (Late st Contact Info) Description 07/09/2022 7:30 AM SHOP FITTER Office Visit Department of Family Medicine, [facility], in [place], [place] [address] [facility] [place] [phone] Yue Alonso M.D. [address] [place] [phone] Preoperative Exam (Primary Dx); Stasis Ulcer With Varicose Vein Left (HCC); Mutation Factor V Leiden Heterozygous (HCC); History Of Falling; Non-Pressure Chronic Ulcer Of Unspecified Part Of Right Lower Leg With Unspecified Severity (HCC); Inferior Vena Cava Filter; Hypertension Essential Primary; Anticoagulant Therapy [Z79.01] Social History Tobacco Use Types Packs/Day Years Used Date Smoking Tobacco: Former Smokeless Tobacco: Never Tobacco Cessation:Counseling Given: Yes Alcohol Use Standard Drinks/Week Comments No 0 [...] week 07/09/2022 How often do you attend mormon or druze serv ices? Never 07/09/2022 Do you belong to any clubs o r organizations such as mormon groups, unions, fraternal or athletic groups, or [...] PHQ-2 Score 0 07/09/2022 [facility] Questionnaire Answer [...] file Gender Identity Male 07/02/2017 9:12 AM SHOP FITTER Sexual Orientation Straight 07/02/2017 9: 12 AM SHOP FITTER documented as of this encounter Last Filed Vital Signs Vital Sign Reading Time Taken Comments Blood Pressure 162/78 07/09/2022 7:39 AM SHOP FITTER Pulse 68 07/09/2022 7:27 AM SHOP FITTER Temperature 36.1 ??C (96.9 ??F) 07/09/2022 7:27 AM CS T Respiratory Rate 18 07/09/2022 7:27 AM SHOP FITTER Oxygen Saturation 96% 07/09/2022 7:27 AM SHOP FITTER Inhaled Oxygen Concentration - - Weight 99.2 kg (218 lb 12.9 oz) 07/09/2022 7:27 AM SHOP FITTER Height 175.7 cm (5' 9.17) 07/09/2022 7:27 AM CS T Body Mass Index 32.15 07/09/2022 7:27 AM SHOP FITTER documented in this encounter H&P Notes * Yue Alonso M.D. - 07/09/2022 7:30 AM CST Chief Complaints: 1. Preanesthetic Medical Consultation Date of Surgery: 07/16/2022 Requesting Physician: Dr. Willson History of Present Illness Wesley Bautista is a 71 y.o. 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 Denies any issues today. Has history of hypertension. He is currently on Norvasc. His blood pressure today noted to be elevated. He stated that he is very compliant taking his medication. He presents at his baseline health and declines any symptoms of chest pain, shortness of breath or exercise intolerance. He is able to conduct his regular activities including going up and down the stairs without any issues. He also declines any past issues with abnormal bleeding, clotting or problems with anesthesia. Past Medical History Past Medical History: Diagnosis Date Anemia 05/08/2012 Anticoagulant Therapy [Z79.01] 05/17/2017 Apnea Sleep Obstructive 11/18/2011 Arthritis Shoulder 07/13/2016 Atrophy Muscular 04/11/2009 Burning Sensation Skin 11/18/2011 Chronic Pain Syndrome 07/13/2016 Compartment Syndrome Leg Nontraumatic Left 07/13/2016 Debility 04/11/2009 Degeneration Disc Cervical 07/13/2016 Drooling 09/05/2016 Dysfunction Erectile 09/21/2010 Edema Leg 07/13/2016 Edentulous Partial 12/27/2008 Fatigue 07/13/2016 Fever Rheumatic 10/02/2009 Hyperlipidemia Insomnia 11/18/2011 Insufficiency Venous 07/13/2016 Mutation Factor V Leiden Heterozygous (HCC) Neuroma Acoustic (HCC) Left Neuropathy Peripheral Vasculitic 11/09/2015 Obstruction Inferior Vena Cava 08/01/2015 Osteoarthritis 11/18/2011 Osteoporosis 07/13/2016 Polyarthralgia 11/18/2011 Polyp Colon Adenomatous 07/13/2016 Sessile serrated adenoma & tubular adenoma. No overt or high grade dysplasia. Per pathology reprot. Postthrombotic Syndrome With Ulcer And Inflammation Lower Extremity Bilateral (HCC) 02/22/2009 Pseudogout 12/16/2011 Restless Leg Syndrome 10/14/2013 Starts Klonopin on 07/09/2013. Thrombosis Deep Vein Acute Lower Extremity (HCC) 11/18/2011 DVT of right leg S/P IVC filter on 08/24/1996. Ulcer Leg Left Ulcer Leg Right Ulcer Lower Limb (HCC) 12/06/2014 Varicose Vein Lower Extremity With Ulcer ([facility]) Past Surgical History Past Surgical History: Procedure Laterality Date COLONOSCOPY 12/27/2014 Repeat in 5 years. CRANIECTOMY FOR EXCISION OF ACOUSTIC NEUROMA 08/19/1996 IR IVC FILTER PLACEMENT 08/24/1996 OTHER CONVERTED SHX (SEE COMMENT) N/A 03/23/2009 >Left leg wound irrigation, debridement, and delayed primary closure. OTHER CONVERTED SHX (SEE COMMENT) N/A 01/15/2014 >1. Extraction retained root No. 28. 2. Debridement and socket preservation grafting site OTHER CONVERTED SHX (SEE COMMENT) N/A 02/08/2016 >1. CO2 laser-assist uncovering of implant sites 11, 13, 20, and 21. OTHER CONVERTED SHX (SEE COMMENT) N/A 08/23/2014 >1. Surgical extraction teeth Nos. 11, 12, and 15. 2. Retrieval of fractured internal screw, implant site OTHER CONVERTED SHX (SEE COMMENT) N/A 03/03/2012 >1. Excision pigmented lesion right mandibular ramus soft tissue. OTHER CONVERTED SHX (SEE COMMENT) N/A 08/19/1996 Left suboccipital craniectomy. >Total removal of vestibular nerve Schwannoma. OTHER CONVERTED SHX (SEE COMMENT) N/A 05/03/2014 >Surgical exploration and uncovering implant site 5. OTHER CONVERTED SHX (SEE COMMENT) N/A 03/21/2009 >Left lower extremity open fasciotomy release. OTHER CONVERTED SHX (SEE COMMENT) N/A 08/10/2015 >1. Endosseous implant reconstruction site Nos. 11 and 13 with two Jarrod Replace Select implants. OTHER CONVERTED SHX (SEE COMMENT) N/A 03/18/2009 >Left knee aspiration. OTHER CONVERTED SHX (SEE COMMENT) N/A 07/03/2007 >Placement endosseous implant area of missing tooth No. 5. OTHER CONVERTED SHX (SEE COMMENT) N/A 09/14/2011 >Surgical extraction. Family History Family History Problem Relation Age of Onset Cancer Mother Lymph Factor V Leiden Father Cataracts Father Depression Father ALS Father Other (circulation problems - legs) Father Eczema Sister Leukemia Sister Factor V Leiden Sister Anticoagulant therapy Sister Hypertension Brother Heart failure Brother Factor V Leiden Daughter No Known Problems Daughter Alcohol abuse Grandfather Grandparents with alcohol abuse. Alcohol abuse Grandmother Grandparents with alcohol abuse. Social History Social History Socioeconomic History Marital status: Spouse name: Lucy Number of children: Not on file Years of education: Not on file Highest education level: Bachelor's degree (e.g., BA, AB, BS) Occupational History Not on file Tobacco Use Smoking status: Former Smokeless tobacco: Never Vaping Use Vaping Use: never used Substance and Sexual Activity Alcohol use: No Drug use: Yes Comment: Tramadol 50 mg 2 tablets 4 times a day. Sexual activity: Not Currently Other Topics Concern Not on file Social History Narrative Not on file Social Determinants of Health Financial Resource Strain: Low Risk Difficulty of Paying Living Expenses: Not hard at all Food Insecurity: No Food Insecurity Worried About Running Out of Food in the Last Year: Never true Ran Out of Food in the Last Year: Never true Transportation Needs: No Transportation Needs Lack of Transportation (Medical): No Lack of Transportation (Non-Medical): No Physical Activity: Sufficiently Active Days of Exercise per Week: 7 days Minutes of Exercise per Session: 150+ min Stress: No Stress Concern Present Feeling of Stress : Not at all Social Connections: Moderately Isolated Frequency of Communication with Friends and Family: Twice a week Frequency of Social Gatherings with Friends and Family: Once a week Attends [employer] Services: Never Active Member of Clubs or Organizations: No Attends Club or Organization Meetings: Never Marital Status: Intimate Partner Violence: Not At Risk Fear of Current or Ex-Partner: No Emotionally Abused: No Physically Abused: No Sexually Abused: No Housing Stability: Low Risk Unable to Pay for Housing in the Last Year: No Number of Places Lived in the Last Year: 1 Unstable Housing in the Last Year: No Current Medications Current Outpatient Medications Medication Sig Dispense Refill amLODIPine (NORVASC) 10 mg tablet Take 1 tablet (10 mg total) by mouth daily. 90 tablet 3 DME Wound dressings garments DME Order 2 Package 11 DME Wound dressings garments DME Order Sponge 4x4 4ply 9024 200 each 11 enoxaparin (LOVENOX) 100 mg/mL injection Inject 1 mL (100 mg total) under the skin 2 (two) times a day for 11 doses. Per periprocedure plans. 11 mL 0 fluocinonide (LIDEX) 0.05 % cream Apply twice daily to areas of rash/itch/irritation as needed. DO NOT use on face or skin folds 120 g 2 gabapentin (NEURONTIN) 300 mg capsule Take 1 capsule (300 mg total) by mouth 3 (three) times a day.360 capsule 3 hydrocortisone (HYTONE) 2.5 % cream Apply to rash/itch/irritation involving the face and skin foldstwice daily as needed 30 g 2 miscellaneous medical supply misc Bandage Conform 4 2247 12 PK 4 each 11 miscellaneous medical supply misc Tape Transpore 1 2 each 11 miscellaneous medical supply misc Bandage Elastic DBL 4IN Deluxe 6 each 11 miscellaneous medical supply misc Sponge 4x4 4Ply 9024 200 PK 200 each 11 traMADoL (ULTRAM) 50 mg tablet Take 2 tablets (100 mg total) by mouth every 6 (six) hours as neededfor pain or severe pain or score 7-10 of 10 Indications: Chronic Pain/Nonacute Pain. caution: Opioid - Risk of overdose and addiction 240 tablet 0 triamcinolone (KENALOG) 0.1 % cream Apply to rash/itch/irritation involving the trunk and extremities twice daily as needed. DO NOT use on face or skin folds. 454 g 1 warfarin (COUMADIN) 5 mg tablet This is your blood thinner prescription. Please take per Anticoagulation visit summary. 120 tablet 3 zolpidem (AMBIEN) 5 mg tablet TAKE ONE TABLET BY MOUTH AT BEDTIME NEEDED FOR SLEEP 30 tablet 0 losartan (COZAAR) 25 mg tablet Take 1 tablet (25 mg total) by mouth daily. 90 tablet 3 No current facility-administered medications for this visit. Allergies Allergies Allergen Reactions Atorvastatin Myalgia Leg Pain/Cramps Review of Systems: All systems reviewed and otherwise negative unless noted above. Specifically, no fevers, chills or sweats. No chest pain and no increasing shortness of breath on exertion. Physical Examination: Vitals: BP (!) 162/78 (BP Location: Right arm, Patient Position: Sitting, Cuff Size: Large) Pulse68 Temp 36.1 ??C (Temporal) Resp 18 Ht 175.7 cm Wt 99.2 kg SpO2 96% BMI 32.15 kg/m?? GENERAL: In no apparent distress, comfortable and cooperative. EYES: BRITTANIE, EOMI, no conjunctival injection. ENT: Normal tympanic membrane, normal light reflex, bony landmarks visible. External nares normal and patent with no erythema or discharge. Oropharynx appears normal with no lesions. Uvula is midlineand there is no significant tonsillar swelling. NECK: Supple with no lymphadenopathy. There is no apparent thyroid enlargement or masses. CARDIOVASCULAR: Heart sounds are normal S1, S2, no S3 or S4. Regular rate and rhythm, no murmurs orrubs. RESPIRATORY: Clear to auscultation, no wheezes. Air entry is equal bilaterally. ABDOMEN: Generally normal to inspection, palpation, percussion, and auscultation. There is no apparent hepatosplenomegaly. MUSCULOSKELETAL: No digital clubbing, cyanosis or edema. Full range of motion at all joints. NEUROLOGICAL: Alert and oriented x3. Cranial nerves II-XII grossly normal. Normal symmetrical reflexes, tone, power, and sensation. VASCULAR: Peripheral pulses generally normal and symmetrical. No peripheral cyanosis or edema. SKIN: Normal with no acute lesions. PSYCH: Mental status appears normal. Impression / Report / Plan Wesley was seen today for pre-op exam. Diagnoses and all orders for this visit: Hypertension essential Blood pressure noticed to be elevated today. We will add losartan 25 mg to Norvasc 10 mg daily. He will follow-up with the nurse in 1 week to check his blood pressure. Preoperative Exam - ECG 12 Lead; Future Mutation Factor V Leiden Heterozygous (HCC) Long-term anticoagulation Other orders - losartan (COZAAR) 25 mg tablet; Take 1 tablet (25 mg total) by mouth daily. - Primary Care nurse visit (clinic) - [facility]; Future Wesleyantonio Bautista is a 71 y.o. male considered a low risk patient undergoing a low risk procedure. His physical activity is currently above 4 mets and he currently declines any issues. he is currently medically optimized for the procedure. Reviewed recommendation of anti coag Clinic regarding Coumadin and bridging with enoxaparin with the patient. Printout was given to the patient regarding the instructions. Please review pharmacy notefor recommendation. Patient appears capable of doing at least 4 METs of activity. There is no chest pain and no increasing shortness of breath with activity. There is no evidence of symptomatic obstructive sleep apnea. We will advise patient to take relevant medications with a sip of water the morning of procedure andotherwise be fasting from midnight the night before. Blood thinners including aspirin will be held o ne week prior, unless patient requires anticoagulation for hypercoaguability, or artificial heart valve, in which case patient will be bridged with low molecular weight heparin with 1/2 dose the day prior to procedure. Overall patient appears optimized for the procedure. (Lex JUAREZ et al. ACC/AHA 2007 Guidelines on Perioperative Cardiovascular Evaluation and Care forNoncardiac Surgery: A Report of the [place] [employer] /[place] [employer] Association TaskForce on Practice Guidelines. Journal of the [place] College [employer] 2007; 50: [id number]) FITTER documented in this encounter Plan of Treatment Upcoming Encounters Date Type Department Care Team (Latest Contact Info) Description 06/12/2023 4:15 PM SHOP FITTER Office Visit Department of Family Medicine, [facility], in [address] [phone] Stefan Salomon M.D. [address] [place] [phone] Discharge Disposition: Home or Self Care 06/21/2023 8:50 AM SHOP FITTER Appointment Department of Laboratory Medicine in [address] [phone] Stefan Salomon M.D. [address] [place] [phone] 06/21/2023 9:30 AM SHOP FITTER Anticoagulation Visit Department of Anticoagulation in [place], [place] [address] [place] [phone] Stefan Salomon M.D. [address] [place] [phone] Scheduled Referrals Name Type Priority Associated Diagnoses Orde r Schedule Primary Care nurse visit (clinic) - [facility] Outpatient Referral Routine Expected: 07/16/2022 (Approximate), Expires: 10/07/2023 documented as of this encounter Results * ECG 12 Lead (07/09/2022 8:57 AM SHOP FITTER) Ventricular Rate ECG/Min 58 BPM MUSE SC Interval 168 ms MUSE QRSD Interval 114 ms MUSE QT Interval 430 ms MUSE QTC Interval 422 ms MUSE P [place] 18 degrees MUSE R [place] -1 degrees MUSE T Wave [place] 32 degrees MUSE 07/09/2022 8:57 AM SHOP FITTER 07/09/2022 9:36 AM SHOP FITTER Impressions MUSE - 07/09/2022 9:00 AM SHOP FITTER Poor data quality Sinus bradycardia Cannot rule [...] in this encounter Visit Diagnoses Diagnosis Preoperative Exam- Primary Stasis Ulcer With Varicose Vein Left (HCC) Mutation Factor V Leiden Heterozygous (HCC) History Of Falling Non-Pressure Chronic Ulcer Of Unspecified Part Of Right Lower Leg With Unspecified Severity (HCC) Inferior Vena Cava Filter Hypertension Essential Primary Anticoagulant Therapy [Z79.01] Preoperative Exam documented in this encounter Additional Health Concerns Assessment Noted Time PHQ-9 Depression Total Score: 0 07/09/19 23 8:29 AM SHOP FITTER documented as of this encounter Care Teams Gum Remover Relationship Specialty Start Date End Date Stefan Salomon M.D. [phone] [phone] PCP - General Family Medicine 07/09/22 Anticoagulation Team 07/09/22 documented as of this encounter
--- OUTSIDE RECORDS SUMMARY | 2023-06-11 08:10 | XMS_ITS | Encounter Summary ---
Author Name Unknown Organization [facility] Address [address] [place] [address] Care Team Providers Care Language Path Name Role Phone Yue Alonso M.D. Primary Care Provider [phone] Reason for Visit * Reason Comments Med Refill Encounter Details Date Type Department Care Team (Late st Contact Info) Description 05/31/2022 Refill Department of Family Medicine, [facility], in [place], [place] [address] [place] [phone] Yue Alonso M.D. [address] [place] [address] Med Refill Social History Tobacco [...] often do you attend chur ch or mormon services? Never 03/12/2020 Do you belong to any clubs o r organizations such as alevism groups, unions, fraternal or athletic groups, or [...] Answer Date Recorded PHQ-2 Score 0 03/05/2022 [facility] - Occupational [...] file Gender Identity Male 07/02/2017 9:12 AM CNA INSTRUCTOR Sexual Orientation Straight 07/02/2017 9: 12 AM CNA INSTRUCTOR documented as of this encounter Miscellaneous Notes * Telephone Encounter - Aziza Davis L.PCotyNCoty - 06/05/2022 12:36 PM CNA INSTRUCTOR Completed in another encounter. INSTRUCTOR * Telephone Encounter - Caity Gavin - 06/01/2022 12:24 PM CST Nurse review: Unable to forward request to provider; Controlled Substance, CSA Primary Provider: Yue Alonso M.D. Requested Prescriptions Pending Prescriptions Disp Refills traMADoL (ULTRAM) 50 mg tablet [Pharmacy Med Name: TRAMADOL HCL 50MG TABS] 240 tablet 0 Sig: TAKE ONE TABLET BY MOUTH EVERY 6 HOURS NEEDED FOR PAIN OR SEVERE PAIN OR SCORE 7-10 OF 10 INDICATIONS: CHRONIC PAIN/NONACUTE PAIN CAUTION: OPIOID - RISK OF OVERDOSE AND ADDICTION Pharmacy (include location): [facility] INSTRUCTOR documented in this encounter Plan of Treatment Upcoming Encounters Date Type Department Care Team (Latest Contact Info) Description 06/12/2023 4:15 PM CNA INSTRUCTOR Office Visit Department of Family Medicine, [facility], in [address] [phone] Stefan Salomon M.D. [address] [place] [phone] Discharge Disposition: Home or Self Care 06/21/2023 8:50 AM CNA INSTRUCTOR Appointment Department of Laboratory Medicine in [address] [phone] Stefan Salomon M.D. [address] [place] [phone] 06/21/2023 9:30 AM CNA INSTRUCTOR Anticoagulation Visit Department of Anticoagulation in [place] [address] [place] [address] Stefan Salomon M.D. [address] [place] [phone] documented as of this encounter Visit Diagnoses Not on filedocumented in this encounter Additional Health Concerns Assessment Noted Time PHQ-9 Depression Total Score: 5 11/08/19 21 2:00 PM CDT documented as of this encounter Care Teams Language Path Relationship Specialty Start Date End Date Yue Alonso M.D. [address] [place] [phone] PCP - General Family Medicine 07/14/20 07/08/22 documented as of this encounter
== END 2023-06-11 08:02 | disposition home or self-care (01) ==
LOC: WOUND 08:01
PROVIDERS: PCP Student in an Organized Health Care Education/Training Program; Visit Provider Nurse Practitioner Family
DX: I87.313 Chronic venous hypertension (idiopathic) with ulcer of bilateral lower extremity (principal); L97.322 Non-pressure chronic ulcer of left ankle with fat layer exposed; L97.312 Non-pressure chronic ulcer of right ankle with fat layer exposed; I89.0 Lymphedema, not elsewhere classified
CPT/HCPCS: 97597

== ENCOUNTER 2023-06-25 08:09 | Outpatient (CLI) | payer MEDICARE, BC, SELFPAY | END 2023-06-25 08:10 | disposition home or self-care (01) | LOC: WOUND 08:09 | PROVIDERS: PCP Student in an Organized Health Care Education/Training Program; Visit Provider Nurse Practitioner Family | DX: I87.313 Chronic venous hypertension (idiopathic) with ulcer of bilateral lower extremity (principal); L97.312 Non-pressure chronic ulcer of right ankle with fat layer exposed; L97.322 Non-pressure chronic ulcer of left ankle with fat layer exposed; I89.0 Lymphedema, not elsewhere classified | CPT/HCPCS: 11042; 97597 ==

== ENCOUNTER 2023-07-09 07:50 | Outpatient (CLI) | payer MEDICARE, BC, SELFPAY ==
--- OUTSIDE RECORDS SUMMARY | 2023-07-09 07:53 | XMS_ITS | Clinical Summary ---
Author Name Unknown Organization [facility] Address [place], [place] [address] Care Team Providers Care Casino Surveillance Officer Name Role Phone Yue Alonso Thomasmedhat ELIZA [...] extremity 07/13/2016 Overview: Overview: Saw Neurologist at [facility] on 09/16/2009. MRI lumbar spine done on [...] Department Care Team Description 05/10/2023 9:30 AM LION HUNTER Office Visit [facility] [address] [place] [address] Bhavik Benson, AuD Hearing Aid 05/10/2023 Travel [...] Comments Blood Pressure 117/67 05/13/2021 2:55 PM LION HUNTER Pulse 103 05/13/2021 2:55 PM LION HUNTER Temperature 36.9 ??C (98.4 ??F) 05/13/2021 2:55 PM CS T Respiratory Rate 18 05/13/2021 2:55 PM LION HUNTER Oxygen Saturation 99% 05/13/2021 2:55 PM LION HUNTER Inhaled Oxygen Concentration - - Weight 97.8 kg (215 lb 9.8 oz) 07/04/2022 11:35 AM LION HUNTER Height 175.7 cm (5' 9.17) 07/04/2022 11:[address] Body Mass Index 31.68 07/04/2022 11:35 AM LION HUNTER Plan of Treatment Health Maintenance Due Date Last Done Comments Depression screening for age 12+ 1960 Hepatitis C screening for age 18-79 1966 Colonoscopy through age 75 1993 Lipids for age 45-75 1993 Zoster (shingles) series for age 50+ (1 of 2) 1998 Medicare Wellness for age 65+ 2013 Pneumococcal [...] 8:51 AM 12/27/2014 12:46 PM Care Teams Casino Surveillance Officer Relationship Specialty Start Date End Date Yue Alonso MBBS [address] [place] [address] [facility] [address] PCP - General Family Practice 06/26/22
--- OUTSIDE RECORDS SUMMARY | 2023-07-09 07:53 | XMS_ITS | Clinical Summary ---
Author Name Unknown Organization [facility] Address [address] [place] [address] Care Team Providers Care Pulp Press Tender Name Role Phone Stefan Salomon M.D. Primary Care Provider [phone] Source Comments Patient records contain information from all sites at [facility]. For routine questions regarding patient records, call [phone] during business hours, M-F 8:00 AM - 5:00 PM Central Time. Record requests for emergency care only can be directed to [phone] at any time.[facility] Allergies Active Allergy Reactions Criticality Noted Date Comments Atorvastatin Myalgia 02/08/2017 Leg Pain/Cramps Vshqpui-Xdh-Nla Reductase Inhibitors Other (see comments) 09/10/2022 Medications [...] report time 4000 mL 0 3 Active warfarin (COUMADIN) 5 mg [...] Pain/Nonacute Pain. 240 tablet 0 4 Active zolpidem (AMBIEN) 5 mg tablet TAKE ONE TABLET BY MOUTH AT BEDTIME NEEDED FOR SLEEP 30 tablet 0 3 06/12/19 24 Discontinu ed(Side effects) traMADoL (ULTRAM) 50 mg tabletIndications :Chronic Pain/Nonacute Pain Take 1-2 tablets (50-100 mg total) by mouth every 6 (six) hours as needed for pain Indications: Chronic Pain/Nonacute Pain. 240 tablet 0 4 07/03/19 24 Discontinu ed(Reorder ) Active Problems Problem Noted [...] Limb Generalized 11/18/2011 Overview: Saw Neurologist at [facility] on 09/16/2009. MRI lumbar spine done [...] Encounters Date Type Department Care Team Description 07/03/2023 Refill Department of Family Medicine, [facility], in [address] [address] Stefan Salomon M.D. Med Refill 06/21/2023 9:30 AM LEATHER TOGGLER Anticoagulation Visit Department of Anticoagulation in [place] [address] [place] [address] Stefan Salomon M.D. Anticoagulant Therapy [Z79.01]; Mutation Factor V Leiden Heterozygous (HCC); Monitoring For Therapeutic Drug Therapy [Z51.81]; Thrombosis Deep Vein Personal History 06/21/2023 7:45 AM LEATHER TOGGLER - 06/21/2023 11:59 PM LEATHER TOGGLER Hospital Encounter Department of Laboratory Medicine in [address] [address] Stefan Salomon M.D. Anticoagulant Therapy [Z79.01]; Mutation Factor V Leiden Heterozygous (HCC); Monitoring For Therapeutic Drug Therapy [Z51.81]; Thrombosis Deep Vein Personal History Discharge Disposition: Home or Self Care 06/12/2023 4:30 PM LEATHER TOGGLER Nurse Only Department of Family [facility], [facility], in [address] [address] Stefan Salomon M.D. Olson, Beata E, R.N. Nurse Visit ([facility] enrollment) Discharge Disposition: Home or Self Care 06/12/2023 4:15 PM LEATHER TOGGLER Office Visit Department of Family Medicine, [facility], [address] [address] Stefan Salomon M.D. Chronic Pain Syndrome (Primary Dx); Arthritis Shoulder; Osteoarthritis; Degeneration Disc Cervical; Stasis Ulcer With Varicose Vein Left (HCC); Non-Pressure Chronic Ulcer Of Unspecified Part Of Right Lower Leg With Unspecified Severity (HCC); Activated Protein C Resistance (HCC); History Of Falling; Hypertension Essential Primary; Restless Leg Syndrome Discharge Disposition: Home or Self Care 06/05/2023 8:00 AM LEATHER TOGGLER Anticoagulation Visit Department of Anticoagulation in [address] [address] Stefan Salomon M.D. Anticoagulant Therapy [Z79.01] (Primary Dx); Mutation Factor V Leiden Heterozygous (HCC); Monitoring For Therapeutic Drug Therapy [Z51.81]; Thrombosis Deep Vein Personal History 06/04/2023 1:46 PM LEATHER TOGGLER - 06/04/2023 11:59 PM LEATHER TOGGLER Hospital Encounter Department of Laboratory Medicine in [address] [address] Stefan Salomon M.D. Anticoagulant Therapy [Z79.01]; Mutation Factor V Leiden Heterozygous (HCC); Monitoring For Therapeutic Drug Therapy [Z51.81]; Thrombosis Deep Vein Personal History Discharge Disposition: Home or Self Care 06/01/2023 Refill Department of Family [facility], [facility], in [address] [address] Stefan Salomon M.D. Med Refill 05/31/2023 Clinical Communication Department of Family Medicine, [facility], in [address] [address] Stefan Salomon M.D. 05/17/2023 10:00 AM LEATHER TOGGLER Anticoagulation Visit Department of Anticoagulation in [address] [address] Stefan Salomon M.D. Anticoagulant Therapy [Z79.01] (Primary Dx); Mutation Factor V Leiden Heterozygous (HCC); Monitoring For Therapeutic Drug Therapy [Z51.81]; Thrombosis Deep Vein Personal History; Hypertension Essential Primary; Hyperlipidemia; Assisted (Current) Anticoagulant Treatment 05/17/2023 7:20 AM LEATHER TOGGLER - 05/17/2023 11:59 PM LEATHER TOGGLER Hospital Encounter Department of Laboratory Medicine in [address] [address] Stefan Salomon M.D. Anticoagulant Therapy [Z79.01]; Mutation Factor V Leiden Heterozygous (HCC); Monitoring For Therapeutic Drug Therapy [Z51.81]; Thrombosis Deep Vein Personal History Discharge Disposition: Home or Self Care 05/01/2023 Refill Department of Family Medicine, [facility], in [address] [address] Stefan Salomon M.D. Med Refill 04/22/2023 8:00 AM LEATHER TOGGLER Anticoagulation Visit Department of Anticoagulation in [address] [address] Stefan Salomon M.D. Anticoagulant Therapy [Z79.01] (Primary Dx); Mutation Factor V Leiden Heterozygous (HCC); Monitoring For Therapeutic Drug Therapy [Z51.81]; Thrombosis Deep Vein Personal History 04/19/2023 9:02 AM LEATHER TOGGLER - 04/19/2023 11:59 PM LEATHER TOGGLER Hospital Encounter Department of Laboratory Medicine in [address] [address] Stefan Salomon M.D. Discharge Disposition: Home or Self Care 04/19/2023 9:00 AM LEATHER TOGGLER Anticoagulation Visit Department of Anticoagulation in [place], [place] [address] [place] [address] Stefan Salomon M.D. Anticoagulant Therapy [Z79.01]; Mutation Factor V Leiden Heterozygous (HCC); Monitoring For Therapeutic Drug Therapy [Z51.81]; Thrombosis Deep Vein Personal History 04/19/2023 7:33 AM LEATHER TOGGLER - 04/19/2023 9:01 AM LEATHER TOGGLER Hospital Encounter Department of Laboratory Medicine and Pathology, [facility] in [place], [place] [address] [place] [address] Stefan Salomon M.D. Anticoagulant Therapy [Z79.01]; Mutation Factor V Leiden Heterozygous (HCC); Monitoring For Therapeutic Drug Therapy [Z51.81]; Thrombosis Deep Vein Personal History Discharge Disposition: Home or Self Care 04/19/2023 7:20 AM LEATHER TOGGLER - 04/19/2023 7:32 AM LEATHER TOGGLER Hospital Encounter Department of Laboratory Medicine in [address] [address] Stefan Salomon M.D. Hypertension Essential Primary; Hyperlipidemia Discharge Disposition: Home or Self Care 04/19/2023 Clinical Communication Department of Anticoagulation in [place], [place] [address] [place] [address] Pippa Morales RCotyNCoty Anticoagulation (Unable to reach 04/19/23) from Last 3 Months Immunizations Name Administration Dates Next Due DT, Pediatric 04/05/2006 Influenza Split 03/16/2009 Influenza high dose QV(65 ye ars or older) (PF) 04/20/2021 Influenza, Quadrivalent, Adj uvanted, Preservative Free 04/02/2023,04/19/2022,03/10/2020 Influenza, Unspecified 07/13/2016 PCV13 10/29/2014 PPSV23(Discontinued) 07/02/2017 RZV (SHINGRIX) 12/30/2020(Deferred: Patient Ref used) SARS-COV-2 (COVID-19) - MODE RNA BIVALENT(Discontinued) 04/21/2022 SARS-COV-2 (COVID-19) - MODERNA(Discontinued) 04/14/2021 Td Preservative Free (TENIVA C, DECAVAC) 12/30/2020,04/11/2006 [...] 2 Alive Father Grandfather Grandmother Mother kristal Sister reena Social History Tobacco Use Types Packs/Day Years [...] week 07/09/2022 How often do you attend bahai or yarsanism serv ices? Never 07/09/2022 Do you belong to any clubs o r organizations such as bahai groups, unions, fraternal or athletic groups, or [...] PHQ-2 Answer Date Recorded PHQ-2 Score 0 06/12/2023 [facility]at [facility] - Occupational Stress Questionnaire Answer Date Recorded [...] Recor ded PHQ-9 Total Score (max 27) 1 06/12 Nutrition Answer Date Recorded Nutrition: EVOO Fat [...] file Gender Identity Male 07/02/2017 9:12 AM LEATHER TOGGLER Sexual Orientation Straight 07/02/2017 9: 12 AM LEATHER TOGGLER Last Filed Vital Signs Vital Sign Reading Time Taken Comments Blood Pressure 148/82 06/12/2023 4:23 PM LEATHER TOGGLER Pulse 63 06/12/2023 4:23 PM LEATHER TOGGLER Temperature 36.6 ??C (97.9 ??F) 06/12/2023 4:23 PM CS T Respiratory Rate 18 06/12/2023 4:23 PM LEATHER TOGGLER Oxygen Saturation 94% 06/12/2023 4:23 PM LEATHER TOGGLER Inhaled Oxygen Concentration - - Weight 95.6 kg (210 lb 12.2 oz) 06/12/2023 4:23 PM LEATHER TOGGLER Height 176.5 cm (5' 9.49) 08/01/2022 9:59 AM CS T Body Mass Index 30.69 08/01/2022 9:59 AM LEATHER TOGGLER Plan of Treatment Upcoming Encounters Date Type Department Care Team (Latest Contact Info) Description 08/02/2023 8:50 AM LEATHER TOGGLER Appointment Department of Laboratory Medicine in [place] [phone] Stefan Salomon M.D. [address] [place] [phone] 08/02/2023 9:30 AM LEATHER TOGGLER Anticoagulation Visit Department of Anticoagulation in [place], [place] [address] [place] [phone] Stefan Salomon M.D. [address] [place] [phone] 09/24/2023 10:15 AM CDT Clinical Communication Virtual Review in [place], [place] [address] [place] [address] 09/25/2023 9:40 AM CDT Office Visit Department of Dermatology in [place], [place] [address] [place] [phone] Kira Hannah, HECTOR, C.N.P., M.S.N. [address] [place] [phone] Jordan Riojas M.D. [address] [place] [phone] Health Maintenance Due Date Last Done Comments CT Colonography 1948 Cologuard 1950 Zoster Vaccines (1 of 2) 1998 Colonoscopy 12/28/2019 12/27/2014 Colorectal Cancer Surveillance 12/28/2019 Opioid Use Disorder (OUD) Screening 05/11/2023 Opioid Risk Tool (ORT) 07/09/2023 07/09/2022 Visit: Medicare Annual Wellness 07/10/2023 3 Office Visit for Blood Press ure Check / Re-check 09/11/2023 06/12/2023 PEG assessment for Opioid therapy 09/11/2023 024 Controlled Substance Monitoring 02/24/2024 3 Creatinine Level (Kidney Fun ction Test) 04/19/2024 04/19/2023, 04/30/2022, 06/08/2021, Additional history exists Lipid (Cholesterol) Screening 04/19/2024, 03/16/2022, 08/14/2018, Additional history exists Potassium Level 04/19/2024 04/19/2023, 04/04, 06/08/2021, Additional history exists Sodium Level 04/19/2024 04/19/2023, 04/04, 06/08/2021, Additional history exists Controlled Substance Agreement 06/12/2024 06/12/2023 , 03/05/2022 Controlled Substance Monitor ing (PHQ-9) 06/12/2024 06/12/2023 Generalized Anxiety (DESMOND-7) 06/12/2024 06/12/2023 Visit: Chronic Disease, age 18+ 06/12/2024 Fasting Glucose for Diabetes Screening 04/19/2026 04/19/2023, 04/30/2022, 06/08/2021, Additional history exists DTaP,Tdap,and Td Vaccines (6 - Td or Tdap) 04/20/2031 04/20/2021, 12/30/2020, 01/12/2008, Additional history exists Abdominal Aortic Aneurysm (A AA) Screen Completed 11/09/2014, 01/11/2012, 09/07/2009, Additional history exists Hepatitis C Screening Completed 06/15/2016, 017 Pneumococcal vaccine (65+ years) Completed 07/02/19, 10/29/2014 Influenza Vaccine Completed 04/02/2023, , 04/20/2021, Additional history exists COVID-19 Vaccine Completed 05/23/2023, , 04/14/2021, Additional history exists Depression Screening (Annual PHQ-2) Completed 06/12/2023 Fall Risk Screen (Annual) Completed 06/12/2023 Medical Devices Implanted Type Area [place] Guide Device Identifier Shelf Expiration Date Model / Serial / Lot Mineralized Cancellous Bone 2.0 - Anne [id number] Implanted:Qty: 1 on 08/10/2015 Bone or Tissue Tooth [facility] Description:Device Manufactu rer - [employer]. Body Location - Other. tooth-13. Device Status Text - [id number]. Hardware E.G. Pins/Screws/Rk s Hardware e.g. pins/screws /rods Mouth Screw Rst Curly Taper Rp 4.3x13.0 - Anne [id number] Implanted:Qty: 1 on 07/03/2007 Hardware e.g. pins/screws /rods Tooth [employer] Description:Device Manufactu rer - [employer]. Body Location - Tooth 5. Device Status Text - [id number]. Abutment Nobrpl Neurophysiologist 3.5x5 - Anne [id number] Implanted:Qty: 1 on 03/03/2012 Hardware e.g. pins/screws /rods Tooth [employer] Description:Device Manufactu rer - [employer]. Body Location - Tooth 29. Device Status Text - [id number]. Screw Nobrpl Curly Taper Neurophysiologist 3.5x13.0 - Anne [id number] Implanted:Qty: 1 on 08/23/2014 Hardware e.g. pins/screws /rods Tooth [employer] Description:Device Manufactu rer - [employer]. Body Location - Other. tooth- 28. Device Status Text - [id number]. Screw Nobrpl Curly Taper Rp 4.3x10.0 - Anne [id number] Implanted:Qty: 1 on 08/10/2015 Hardware e.g. pins/screws /rods Tooth [employer] Description:Device Manufactu rer - [employer]. Body Location - Other. tooth- 20. Device Status Text - [id number]. Abutment Nobrpl Rp 4.3x3 - Anne [id number] Implanted:Qty: 1 on 02/08/2016 Hardware e.g. pins/screws /rods Tooth [employer] Description:Device Manufactu rer - [employer]. Body Location - Other. tooth- 11. Device Status Text - [id number]. Patch Dura-Guard 4x 4 - Anne [id number] Implanted:Qty: 1 on 08/19/1996 Mesh or Patch [employer] Description:Device Manufactu rer - [employer]. Device Status Text - [id number]. Allograft Bioxclude Chorion 1cm X 2.5cm - Anne [id number] Implanted:Qty: 1 on 01/15/2014 Mesh or Patch Tooth Unknown Description:Device Manufactu rer - Unknown. Body Location - tooth-5. Device Status Text - [id number]. Allograft Bioxclude Chorion 1.5cm X 2cm - Anne [id number] Implanted:Qty: 1 on 08/10/2015 Mesh or Patch Other/Legacy - See Implant Description Unknown Description:Device Manufactu rer - Unknown. Body Location - Other. Left. Device Status Text - [id number]. Procedures Procedure Name Priority Date/Time Associated Diagnosis Comments INR REFLEX, POCT, B Routine 06/21/2023 7:49 AM LEATHER TOGGLER Anticoagulant Therapy [Z79.01] Mutation Factor V Leiden Heterozygous (HCC) Monitoring For Therapeutic Drug Therapy [Z51.81] Thrombosis Deep Vein Personal History CBC WITH DIFFERENTIAL, B Routine 06/12/2023 5:30 PM LEATHER TOGGLER Restless Leg Syndrome FERRITIN, S Routine 06/12/2023 5:30 PM LEATHER TOGGLER Restless Leg Syndrome INR REFLEX, POCT, B Routine 06/04/2023 1:50 PM LEATHER TOGGLER Anticoagulant Therapy [Z79.01] Mutation Factor V Leiden Heterozygous (HCC) Monitoring For Therapeutic Drug Therapy [Z51.81] Thrombosis Deep Vein Personal History INR REFLEX, POCT, B Routine 05/17/2023 7:29 AM LEATHER TOGGLER Anticoagulant Therapy [Z79.01] Mutation Factor V Leiden Heterozygous (HCC) Monitoring For Therapeutic Drug Therapy [Z51.81] Thrombosis Deep Vein Personal History LIPID PANEL, S Routine 04/19/2023 7:39 AM LEATHER TOGGLER Hyperlipidemia BASIC METABOLIC PANEL, S/P Routine 04/19/2023 7:39 AM LEATHER TOGGLER Hypertension Essential Primary INR REFLEX, POCT, B Routine 04/19/2023 7:38 AM LEATHER TOGGLER from Last 3 Months Results * INR Reflex, POCT, Blood (06/21/2023 7:49 AM LEATHER TOGGLER) Only the most recent of4 resultswithin the time period is included. Pathologist [facility] INR Reflex, POCT, B 2.5 06/21/2023 7:49 AM LEATHER TOGGLER CNFL Comment: ----ADDITIONAL INFORMATION---- Standard intensity warfarin therapeutic range: 2.0 to 3.0 ?? High intensity warfarin therapeutic range: 2.5 to 3.5 Blood (Blood, Capillary) 06/21/2023 7:49 AM LEATHER TOGGLER 06/21/2023 7:49 AM LEATHER TOGGLER Stefan Salomon M.D. LAB POCT ORDERABLES - DEVICE Performing Organization Address City/State/[facility] Co de Phone Number [facility] [address] [place] [address], [facility] [place] [address] * CBC with Differential, Blood (06/12/2023 5:30 PM LEATHER TOGGLER) [facility] Hemoglobin 13.6 13.2 - 16.6 g/dL 06/12/2023 5:44 PM LEATHER TOGGLER CNFL Hematocrit 41.6 38.3 - 48.6 % 06/12/2023 5:44 PM LEATHER TOGGLER CNFL Erythrocytes 4.44 4.35 - 5.65 x10(12)/L 06/12/2023 5:44 PM LEATHER TOGGLER CNFL MCV 93.7 78.2 - 97.9 fL 06/12/2023 5:44 PM LEATHER TOGGLER CNFL RBC Distrib Width 13.0 11.8 - 14.5 % 06/12/2023 5:44 PM LEATHER TOGGLER CNFL Platelet Count 208 135 - 317 x10(9)/L 06/12/2023 5:44 PM LEATHER TOGGLER CNFL Leukocytes 5.7 3.4 - 9.6 x10(9)/L 06/12/2023 5:44 PM LEATHER TOGGLER CNFL Neutrophils 3.52 1.56 - 6.45 x10(9)/L 06/12/2023 5:44 PM LEATHER TOGGLER CNFL Lymphocytes 1.23 0.95 - 3.07 x10(9)/L 06/12/2023 5:44 PM LEATHER TOGGLER CNFL Monocytes 0.53 0.26 - 0.81 x10(9)/L 06/12/2023 5:44 PM LEATHER TOGGLER CNFL Eosinophils 0.34 0.03 - 0.48 x10(9)/L 06/12/2023 5:44 PM LEATHER TOGGLER CNFL Basophils 0.05 0.01 - 0.08 x10(9)/L 06/12/2023 5:44 PM LEATHER TOGGLER CNFL Blood (Blood, Venous) 06/12/2023 5:30 PM LEATHER TOGGLER 06/12/2023 5:31 PM LEATHER TOGGLER Stefan Salomon M.D. LAB BLOOD ADD-ON [facility] [address] [place] [address], [place] CNFL [facility] in [address] [address] * Ferritin (06/12/2023 5:30 PM LEATHER TOGGLER) Ferritin, S 110 31 - 409 mcg/L 06/13/2023 1:19 PM LEATHER TOGGLER RDWG Comment: Biotin has been identified by the casing tester as a potential interfering substance. Higher concentrations of biotin may be found in multivitamins, hair/nail supplements, and workout supplements. If the result does not match clinical observations, repeat testing after patient refrains from the use of supplements for at least 12 hours. Blood (Blood, Venous) 06/12/2023 5:30 PM LEATHER TOGGLER 06/13/2023 12:18 PM LEATHER TOGGLER Stefan Salomon M.D. LAB BLOOD ADD-ON [facility] [address] [place] [address], [place] RDWG [facility] in [place] [address] [facility] [place] [address] * Lipid Panel (04/19/2023 7:39 AM LEATHER TOGGLER) Triglycerides 113 mg/dL 04/19/2023 11:48 AM LEATHER TOGGLER CNFL Comment: ----REFERENCE VALUE---- Normal: <150 mg/dL Borderline High: 150-199 mg/dL High: 200-499 mg/dL Very High: > or =500 mg/dL Cholesterol, Total 144 mg/dL 2022 11:48 AM LEATHER TOGGLER CNFL Comment: ----REFERENCE VALUE---- Desirable: < 200 mg/dL Borderline High: 200 - 239 mg/dL High: > or = 240 mg/dL Cholesterol, LDL, Calculated 76 mg/dL 04/19/2023 12:10 PM LEATHER TOGGLER CNFL Comment: ----REFERENCE VALUE---- Desirable: <100 mg/dL Above Desirable: 100-129 mg/dL Borderline High: 130-159 mg/dL High: 160-189 mg/dL Very High: >=190 mg/dL ----ADDITIONAL INFORMATION---- LDL cholesterol calculated using the Sosa/NIH equation. Cholesterol, HDL 48 >=40 mg/dL 04/19/20 12:10 PM LEATHER TOGGLER CNFL Cholesterol, Non-HDL, Calculated 96 mg/dL 04/19/2023 12:10 PM LEATHER TOGGLER CNFL Comment: ----REFERENCE VALUE---- Desirable: <130 mg/dL Above Desirable: 130-159 mg/dL Borderline High: 160-189 mg/dL High: 190-219 mg/dL Very High: > or =220 mg/dL Fasting (8 HR or more) No 04/19/2023 7:40 AM LEATHER TOGGLER CNFL Blood (Blood, Venous) 04/19/2023 7:39 AM LEATHER TOGGLER 04/19/2023 7:40 AM LEATHER TOGGLER Stefan Salomon M.D. LAB BLOOD ADD-ON [facility] [address] [place] [address], [facility] in [address] [address] * Basic Metabolic Panel (04/19/2023 7:39 AM LEATHER TOGGLER) Potassium, P 4.1 3.6 - 5.2 mmol/L 04/19/2023 11:48 AM LEATHER TOGGLER CNFL Sodium, P 138 135 - 145 mmol/L 04/19/2023 11:48 AM LEATHER TOGGLER CNFL Chloride, P 102 98 - 107 mmol/L 04/19/2023 11:48 AM LEATHER TOGGLER CNFL Bicarbonate, P 23 22 - 29 mmol/L 04/19/2023 11:48 AM LEATHER TOGGLER CNFL Anion Gap, P 13 7 - 15 04/19/2023 11:48 AM LEATHER TOGGLER CNFL BUN (Blood Urea Nitrogen), P 21 8 - 24 mg/dL 04/19/2023 11:48 AM LEATHER TOGGLER CNFL Creatinine 0.87 0.74 - 1.35 mg/dL 04/19/2023 11:48 AM LEATHER TOGGLER CNFL Estimated GFR (eGFR) >90 >=60 mL/min/BSA 04/19/2023 11:48 AM LEATHER TOGGLER CNFL Comment: Estimated GFR calculated using the 2020 CKD_EPI creatinine equation. Calcium, Total, P 9.1 8.8 - 10.2 mg/dL 04/19/2023 11:48 AM LEATHER TOGGLER CNFL Glucose, P 103 70 - 140 mg/dL 04/19/2023 11:48 AM LEATHER TOGGLER CNFL Blood (Blood, Venous) 04/19/2023 7:39 AM LEATHER TOGGLER 04/19/2023 7:40 AM LEATHER TOGGLER Stefan Salomon M.D. LAB BLOOD ADD-ON Performing Organization Address City/State/[facility] Co de Phone Number [facility] [address] [place] [id number], [facility] CNFL [facility] in [address] [address] from Last 3 Months Care Teams Pulp Press Tender Relationship Specialty Start Date End Date Stefan Salomon M.D. ELANA: [phone] [id number] [phone] PCP - General Family Medicine 07/09/22 Anticoagulation Team 07/09/22
--- OUTSIDE RECORDS SUMMARY | 2023-07-09 07:54 | XMS_ITS | Encounter Summary ---
Author Name Unknown Organization [facility] Address [address] [place] [address] Care Team Providers Care Alterations Workroom Clerk Name Role Phone Stefan Salomon M.D. Primary Care Provider [phone] Reason for Visit * Reason Comments sleep concerns Pt states he is havi ng trouble falling asleep and staying asleep. He also feels like he needs to move his legs frequently as they feel uncomfortable at night. * Appointment Request (Routine) - Closed Specialty Diagnoses / Procedures Referred By Piero self Referred To Contact Family Medicine Referral ID Status Reason Start Date Expiration Date Visits Re quested Visits Authorized [id number] Closed 05/16/2023 05/15/2024 1 1 Encounter Details Date Type Department Care Team (Late st Contact Info) Description 06/12/2023 4:15 PM MEDICAL TECHNOLOGIST CHIEF Office Visit Department of Family Medicine, [facility], in [address] [phone] Stefan Salomon M.D. [address] [place] [phone] Chronic Pain Syndrome (Primary Dx); Arthritis Shoulder; Osteoarthritis; Degeneration Disc Cervical; Stasis Ulcer With Varicose Vein Left (HCC); Non-Pressure Chronic Ulcer Of Unspecified Part Of Right Lower Leg With Unspecified Severity (HCC); Activated Protein C Resistance (HCC); History Of Falling; Hypertension Essential Primary; Restless Leg Syndrome Discharge Disposition: Home or Self Care Social [...] How often do you attend caodaism or mu-ism serv ices? Never 07/09/2022 Do [...] Answer Date Recorded PHQ-2 Score 0 06/12/2023 [facility] of Occupat ional Health - Occupational Stress [...] place to sleep or slept in a fpc (including now)? No 07/09/2022 Depression Answer Date [...] file Gender Identity Male 07/02/2017 9:12 AM MEDICAL TECHNOLOGIST CHIEF Sexual Orientation Straight 07/02/2017 9: 12 AM MEDICAL TECHNOLOGIST CHIEF documented as of this encounter Last Filed Vital Signs Vital Sign Reading Time Taken Comments Blood Pressure 148/82 06/12/2023 4:23 PM MEDICAL TECHNOLOGIST CHIEF Pulse 63 06/12/2023 4:23 PM MEDICAL TECHNOLOGIST CHIEF Temperature 36.6 ??C (97.9 ??F) 06/12/2023 4:23 PM CS T Respiratory Rate 18 06/12/2023 4:23 PM MEDICAL TECHNOLOGIST CHIEF Oxygen Saturation 94% 06/12/2023 4:23 PM MEDICAL TECHNOLOGIST CHIEF Inhaled Oxygen Concentration - - Weight 95.6 kg (210 lb 12.2 oz) 06/12/2023 4:23 PM MEDICAL TECHNOLOGIST CHIEF Height - - Body Mass Index 30.69 08/01/2022 9:59 AM MEDICAL TECHNOLOGIST CHIEF documented in this encounter Progress Notes * Stefan Salomon M.D. - 06/12/2023 4:15 PM CST SUBJECTIVE CHIEF COMPLAINT / REASON FOR VISIT Teo is a 72 y.o. male who presents for evaluation of sleep concerns (Pt states he is having trouble falling asleep and staying asleep. He also feels like he needs to move his legs frequently as they feel uncomfortable at night. ). HISTORY OF PRESENT ILLNESS Teo is a pleasant 72 y.o. male who presents to clinic today with concerns of a period of difficulty sleeping with restless leg symptoms. He states he decreased his p.m. dose of gabapentin to 600 mgif symptoms resolve. He continues to be managed for chronic pain for multiple joint osteoarthritis stable on tramadol. Gabapentin also helps. Stasis ulcers well-healing and does visit the [facility]. No other concerns noted. The following portions of the patient's history were reviewed and updated as appropriate: allergies, current medications, family history, medical history, social history, surgical history, and problem list. Brief Review of Systems: A brief review of systems was negative except for that mentioned in the history of present of illness. OBJECTIVE PHYSICAL EXAM BP 148/82 (BP Location: Left arm, Patient Position: Sitting, Cuff Size: Regular) Pulse 63 Temp 36.6 ??C (Temporal) Resp 18 Wt 95.6 kg SpO2 94% BMI 30.69 kg/m?? Body mass index is 30.69 kg/m??. GENERAL: Patient is in no distress. Capable of full communication without difficulty. Patient is polite and cooperative. HEENT: Normocephalic. EOMI, PERRL, Canals patent, TMs normal. Oropharynx without lesion of mucosa. Pharyngeal rises symmetrically without exudate. HEART: Regular rate and rhythm. No murmurs, gallops or rubs noted. LUNGS: Clear to auscultation bilaterally. No expiratory wheeze. No accessory muscles of respirationnoted. ABDOMEN: Nontender to palpation. No hepato-splenomegaly. No mass. Normal bowel sounds in all 4 quadrants. EXTREMITIES: No neurovascular compromise. No cyanosis, clubbing or edema. NEURO: Alert and oriented x3, nonfocal, moving all 4 extremities. CN II-XII grossly intact. PSYCH: Affect is appropriate ASSESSMENT / PLAN #1 Chronic Pain Syndrome #2 Arthritis Shoulder #3 Osteoarthritis #4 Degeneration Disc Cervical Stable on current regimen. No aberrant behaviors. Continue as prescribed. CONTROLLED SUBSTANCE PRESCRIBING PLAN Responsible provider: Stefan Salomon M.D. Urine drug screen: every 12 months Follow-up visits/assessments: every 6 months Tramadol 50 mg tablets Instructions for use: 1-2 tablets every 6 hours as needed for pain Quantity to dispense: 240 Prescription duration: other - 30 days #5 Stasis Ulcer With Varicose Vein Left (HCC) #6 Non-Pressure Chronic Ulcer Of Unspecified Part Of Right Lower Leg With Unspecified Severity (HCC) #7 Activated Protein C Resistance (HCC) Symptoms improving through wound care. Continue to monitor. #8 History Of Falling Discussed risk factors and preventive efforts #9 Hypertension Essential Primary Blood pressure mildly elevated at today's visit. Recommend home blood pressure monitoring. Considerincreasing losartan if blood pressure remains elevated above goal of 130/80. #10 Restless Leg Syndrome Symptoms improved with decreasing gabapentin dose. Continue with 600 mg in the late afternoon and 600 mg at bedtime. CBC and ferritin requested. Total time 42 minutes Patient was instructed to follow up in [...] understanding of the content. Stefan Salomon M.D. CAL TECHNOLOGIST CHIEF documented in this encounter Plan of Treatment Upcoming Encounters Date Type Department Care Team (Latest Contact Info) Description 08/02/2023 8:50 AM MEDICAL TECHNOLOGIST CHIEF Appointment Department of Laboratory Medicine in [address] [phone] Stefan Salomon M.D. [address] [place] [phone] 08/02/2023 9:30 AM MEDICAL TECHNOLOGIST CHIEF Anticoagulation Visit Department of Anticoagulation in [address] [phone] Stefan Salomon M.D. [address] [place] [phone] 09/24/2023 10:15 AM CDT Clinical Communication Virtual Review in [address] [address] 09/25/2023 9:40 AM CDT Office Visit Department of Dermatology in [place], [place] [address] [place] [phone] Kira Hannah, HECTOR, C.N.P., M.S.N. [address] [place] [phone] Jordan Riojas M.D. [address] [place] [phone] documented as of this encounter Procedures Procedure Name Priority Date/Time Associated Diagnosis Comments CBC WITH DIFFERENTIAL, B Routine 06/12/2023 5:30 PM MEDICAL TECHNOLOGIST CHIEF Restless Leg Syndrome FERRITIN, S Routine 06/12/2023 5:30 PM MEDICAL TECHNOLOGIST CHIEF Restless Leg Syndrome documented in this encounter Results * Ferritin (06/12/2023 5:30 PM MEDICAL TECHNOLOGIST CHIEF) Pathologist [facility] Ferritin, S 110 31 - 409 mcg/L 06/13/2023 1:19 PM MEDICAL TECHNOLOGIST CHIEF RDWG Comment: Biotin has been identified by the lead pharmacy technician as a potential interfering substance. Higher concentrations of biotin may be found in multivitamins, hair/nail supplements, and workout supplements. If the result does not match clinical observations, repeat testing after patient refrains from the use of supplements for at least 12 hours. Blood (Blood, Venous) 06/12/2023 5:30 PM MEDICAL TECHNOLOGIST CHIEF 06/13/2023 12:18 PM MEDICAL TECHNOLOGIST CHIEF Stefan Salomon M.D. LAB BLOOD ADD-ON [facility] [address] [place] [address], [facility] RDWG [facility] in [place] [address] [place] [phone] * CBC with Differential, Blood (06/12/2023 5:30 PM MEDICAL TECHNOLOGIST CHIEF) Pathologist [facility] Hemoglobin 13.6 13.2 - 16.6 g/dL 06/12/2023 5:44 PM MEDICAL TECHNOLOGIST CHIEF CNFL Hematocrit 41.6 38.3 - 48.6 % 06/12/2023 5:44 PM MEDICAL TECHNOLOGIST CHIEF CNFL Erythrocytes 4.44 4.35 - 5.65 x10(12)/L 06/12/2023 5:44 PM MEDICAL TECHNOLOGIST CHIEF CNFL MCV 93.7 78.2 - 97.9 fL 06/12/2023 5:44 PM MEDICAL TECHNOLOGIST CHIEF CNFL RBC Distrib Width 13.0 11.8 - 14.5 % 06/12/2023 5:44 PM MEDICAL TECHNOLOGIST CHIEF CNFL Platelet Count 208 135 - 317 x10(9)/L 06/12/2023 5:44 PM MEDICAL TECHNOLOGIST CHIEF CNFL Leukocytes 5.7 3.4 - 9.6 x10(9)/L 06/12/2023 5:44 PM MEDICAL TECHNOLOGIST CHIEF CNFL Neutrophils 3.52 1.56 - 6.45 x10(9)/L 06/12/2023 5:44 PM MEDICAL TECHNOLOGIST CHIEF CNFL Lymphocytes 1.23 0.95 - 3.07 x10(9)/L 06/12/2023 5:44 PM MEDICAL TECHNOLOGIST CHIEF CNFL Monocytes 0.53 0.26 - 0.81 x10(9)/L 06/12/2023 5:44 PM MEDICAL TECHNOLOGIST CHIEF CNFL Eosinophils 0.34 0.03 - 0.48 x10(9)/L 06/12/2023 5:44 PM MEDICAL TECHNOLOGIST CHIEF CNFL Basophils 0.05 0.01 - 0.08 x10(9)/L 06/12/2023 5:44 PM MEDICAL TECHNOLOGIST CHIEF CNFL Blood (Blood, Venous) 06/12/2023 5:30 PM MEDICAL TECHNOLOGIST CHIEF 06/12/2023 5:31 PM MEDICAL TECHNOLOGIST CHIEF Stefan Salomon M.D. LAB BLOOD ADD-ON [facility] [address] [place] [phone], [facility] CNFL [facility] in [address] [address] documented in this encounter Visit Diagnoses Diagnosis Chronic Pain Syndrome- Primary Arthritis Shoulder Osteoarthritis Degeneration Disc Cervical Stasis Ulcer With Varicose Vein Left (HCC) Non-Pressure Chronic Ulcer Of Unspecified Part Of Right Lower Leg With Unspecified Severity (HCC) Activated Protein C Resistance (HCC) History Of Falling Hypertension Essential Primary Restless Leg Syndrome documented in this encounter Additional Health Concerns Assessment Noted Time PHQ-9 Depression Total Score: 1 06/12/19 24 4:14 PM MEDICAL TECHNOLOGIST CHIEF documented as of this encounter Care Teams Alterations Workroom Clerk Relationship Specialty Start Date End Date Stefan Salomon M.D. [address] [place] [phone] PCP - General Family Medicine 07/09/22 Anticoagulation Team 07/09/22 documented as of this encounter
--- OUTSIDE RECORDS SUMMARY | 2023-07-09 07:54 | XMS_ITS | Encounter Summary ---
Author Name Unknown Organization [facility] Address [address] [place] [address] Care Team Providers Care Linen Controller Name Role Phone Stefan Salomon M.D. Primary Care Provider [phone] Reason for Visit * Reason Comments Med Refill Encounter Details Date Type Department Care Team (Late st Contact Info) Description 06/01/2023 Refill Department of Family Medicine, [facility], in [address] [phone] Stefan Salomon M.D. [address] [place] [phone] Med Refill Social History Tobacco Use Types [...] week 07/09/2022 How often do you attend gnosticism or amish serv ices? Never 07/09/2022 Do you belong to any clubs o r organizations such as gnosticism groups, unions, fraternal or athletic groups, or [...] file Gender Identity Male 07/02/2017 9:12 AM BUMPER MACHINE OPERATOR Sexual Orientation Straight 07/02/2017 9: 12 AM BUMPER MACHINE OPERATOR documented as of this encounter Miscellaneous Notes * Telephone Encounter - Hoa Capone, L.P.N. - 06/04/2023 2:46 PM BUMPER MACHINE OPERATOR Controlled substance renewal for Tramadol 50 mg: [...] renewal may be on or after 07/04/2023 ER MACHINE OPERATOR documented in this encounter Plan of Treatment Upcoming Encounters Date Type Department Care Team (Latest Contact Info) Description 08/02/2023 8:50 AM BUMPER MACHINE OPERATOR Appointment Department of Laboratory Medicine in [address] [phone] Stefan Salomon M.D. [address] [place] [phone] 08/02/2023 9:30 AM BUMPER MACHINE OPERATOR Anticoagulation Visit Department of Anticoagulation in [address] [phone] Stefan Salomon M.D. [address] [place] [phone] 09/24/2023 10:15 AM CDT Clinical Communication Virtual Review in [place], [place] [address] [place] [address] 09/25/2023 9:40 AM CDT Office Visit Department of Dermatology in [place], [place] [address] [place] [phone] Kira Hannah, HECTOR, C.N.P., M.S.N. [address] [place] [phone] Jordan Riojas M.D. [address] [place] [phone] documented as of this encounter Visit Diagnoses Diagnosis Chronic Pain Syndrome Degeneration Disc Cervical Polyarthralgia documented in this encounter Additional Health Concerns Assessment Noted Time PHQ-9 Depression Total Score: 0 07/09/19 23 8:29 AM BUMPER MACHINE OPERATOR documented as of this encounter Care Teams Linen Controller Relationship Specialty Start Date End Date Stefan Salomon M.D. [address] [place] [phone] PCP - General Family Medicine 07/09/22 Anticoagulation Team 07/09/22 documented as of this encounter
--- OUTSIDE RECORDS SUMMARY | 2023-07-09 07:54 | XMS_ITS | Encounter Summary ---
Author Name Unknown Organization [facility] Address [address] [place] [address] Care Team Providers Care Chicken Picker Name Role Phone Stefan Salomon M.D. Primary Care Provider [phone] Reason for Visit * Outpatient (Routine) - Authorized Specialty Diagnoses / Procedures Referred By Contdayana t Referred To Contact Anticoagulation Diagnoses Anticoagulant Therapy Mutation Factor V Leiden Heterozygous (HCC) Monitoring For Therapeutic Drug Therapy Thrombosis Deep Vein Personal History Stefan Salomon M.D. [address] [phone] [facility] Referral ID Status Reason Start Date Expiration Date V isits Requested Visits Authorized [id number] Authorized 02/01/2023 01/31/2026 300 300 Encounter Details Date Type Department Care Team (Latest Contact Info) Description 06/21/2023 9:30 AM RECRUITMENT INTERNSHIP Anticoagulation Visit Department of Anticoagulation in [place], [place] [address] [place] [address] Stefan Salomon M.D. [address] [place] [phone] Anticoagulant Therapy [Z79.01]; Mutation Factor V [...] often do you attend roman catholic or druze serv ices? Never 07/09/2022 Do [...] Answer Date Recorded PHQ-2 Score 0 06/12/2023 [facility] [place] of Occupat ional Health - Occupational Stress [...] file Gender Identity Male 07/02/2017 9:12 AM RECRUITMENT INTERNSHIP Sexual Orientation Straight 07/02/2017 9: 12 AM RECRUITMENT INTERNSHIP documented as of this encounter Patient Instructions * Patient Instructions* Brittany Llamas R.N. - 06/21/2023 9:30 AM RECRUITMENT INTERNSHIP Your next INR will be 08/02/23. You will need to call the Anticoagulation Program for warfarin dosingat the scheduled time for your nurse visit, as indicated on your Patient Appointment Guide (PAG). To reschedule your appointment or for questions about your warfarin, please call Primary Care Anticoagulation Program at [phone] from 7:30 am to 4:30 pm. Saturday-Saturday [...] if you start any herbal or other [id number] product (check with your doctor, a nurse, or pharmacist). If you change your diet significantly. If you decide to stop or start using tobacco or alcohol. If you notice unusual bruising or bleeding. If you notice dark, tarry, or bright red stools or blood in your urine. If you have a painful and swollen calf. UITMENT INTERNSHIP documented in this encounter Progress Notes * Brittany Llamas R.N. - 06/21/2023 9:30 AM CST Warfarin Maintenance Nursing Protocol Goal [...] Pt. will return sooner than protocol recommendation, per patient preference Pt is on injectable anticoagulant: No. Plan used: Protocol. See Anticoagulation Track Calendar for dosing and plan details. Anticoagulation Visit Summary: Patient repeats back dosing instructions, date of next INR, and has no further questions at this time. Total time spent with patient: N/A UITMENT INTERNSHIP documented in this encounter Plan of Treatment Upcoming Encounters Date Type Department Care Team (Latest Contact Info) Description 08/02/2023 8:50 AM RECRUITMENT INTERNSHIP Appointment Department of Laboratory Medicine in [address] [phone] Stefan Salomon M.D. [address] [place] [phone] 08/02/2023 9:30 AM RECRUITMENT INTERNSHIP Anticoagulation Visit Department of Anticoagulation in [place], [place] [address] [place] [phone] Stefan Salomon M.D. [address] [place] [phone] 09/24/2023 10:15 AM CDT Clinical Communication Virtual Review in [place], [place] [address] [place] [address] 09/25/2023 9:40 AM CDT Office Visit Department of Dermatology in [place], [place] [address] [place] [phone] Kira Hannah APRN, C.N.P., M.S.N. [address] [place] [phone] Jordan Riojas M.D. [address] [place] [phone] Scheduled Orders Name Type Priority Associated Diagnoses Orde r Schedule INR Reflex, POCT, Blood Point of Care Testing-Docked Device Routine Anticoagulant Therapy [Z79.01] Mutation Factor V Leiden Heterozygous (HCC) Monitoring For Therapeutic Drug Therapy [Z51.81] Thrombosis Deep Vein Personal History Expected: 08/02/2023, Expires: 09/19/2024 documented as of this encounter Visit Diagnoses Diagnosis Anticoagulant Therapy [Z79.01] Mutation Factor V Leiden Heterozygous (HCC) Monitoring For Therapeutic Drug Therapy [Z51.81] Thrombosis Deep Vein Personal History documented in this encounter Additional Health Concerns Assessment Noted Time PHQ-9 Depression Total Score: 1 06/12/19 24 4:14 PM RECRUITMENT INTERNSHIP documented as of this encounter Care Teams Chicken Picker Relationship Specialty Start Date End Date Stefan Salomon M.D. [address] [place] [phone] PCP - General Family Medicine 07/09/22 Anticoagulation Team 07/09/22 documented as of this encounter
--- OUTSIDE RECORDS SUMMARY | 2023-07-09 07:54 | XMS_ITS | Encounter Summary ---
Author Name Unknown Organization [facility] Address [address] [place] [address] Care Team Providers Care Inletter Name Role Phone Stefan Salomon M.D. Primary Care Provider [phone] Encounter Details Date Type Department Care Team (Latest Contact Info) Description 06/21/2023 7:45 AM MANAGER QUALITY IMPROVEMENT - 06/21/2023 11:59 PM MANAGER QUALITY IMPROVEMENT Hospital Encounter Department of Laboratory Medicine in [address] [phone] Stefan Salomon M.D. [address] [place] [phone] Anticoagulant Therapy [Z79.01]; Mutation Factor V Leiden [...] How often do you attend samaritan or temple serv ices? Never 07/09/2022 Do [...] Answer Date Recorded PHQ-2 Score 0 06/12/2023 [facility] of Occupat ional Health [...] Gender Identity Male 07/02/2017 9:12 AM MANAGER QUALITY IMPROVEMENT Sexual Orientation Straight 07/02/2017 9: 12 AM MANAGER QUALITY IMPROVEMENT documented as of this encounter Medications at [...] your Anticoagulation Clinic. 130 tablet 3 10/18/2022 traMADoL (ULTRAM) 50 mg tabletIndications:C hronic Pain/Nonacute Pain Take 1-2 tablets (50-100 mg total) by mouth every 6 (six) hours as needed for pain Indications: Chronic Pain/Nonacute Pain. 240 tablet 0 06/05/2023 07/03/2023 documented as of this encounter Plan of Treatment Upcoming Encounters Date Type Department Care Team (Latest Contact Info) Description 08/02/2023 8:50 AM MANAGER QUALITY IMPROVEMENT Appointment Department of Laboratory Medicine in [address] [phone] Stefan Salomon M.D. [phone] [place] [phone] 08/02/2023 9:30 AM MANAGER QUALITY IMPROVEMENT Anticoagulation Visit Department of Anticoagulation in [address] [phone] Stefan Salomon M.D. [address] [place] [phone] 09/24/2023 10:15 AM CDT Clinical Communication Virtual Review in [place], [place] [address] [place] [address] 09/25/2023 9:40 AM CDT Office Visit Department of Dermatology in [place], [place] [address] [place] [phone] Kira Hannah, HECTOR, C.N.P., M.S.N. [address] [place] [phone] Jordan Riojas M.D. [address] [place] [phone] documented as of this encounter Procedures Procedure Name Priority Date/Time Associated Diagnosis Comments INR REFLEX, POCT, B Routine 06/21/2023 7:49 AM MANAGER QUALITY IMPROVEMENT Anticoagulant Therapy [Z79.01] Mutation Factor V Leiden Heterozygous (HCC) Monitoring For Therapeutic Drug Therapy [Z51.81] Thrombosis Deep Vein Personal History documented in this encounter Results * INR Reflex, POCT, Blood (06/21/2023 7:49 AM MANAGER QUALITY IMPROVEMENT) INR Reflex, POCT, B 2.5 06/21/2023 7:49 AM MANAGER QUALITY IMPROVEMENT CNFL Comment: ----ADDITIONAL INFORMATION---- Standard intensity warfarin therapeutic range: 2.0 to 3.0 ?? High intensity warfarin therapeutic range: 2.5 to 3.5 Blood (Blood, Capillary) 06/21/2023 7:49 AM MANAGER QUALITY IMPROVEMENT 06/21/2023 7:49 AM MANAGER QUALITY IMPROVEMENT Stefan Salomon M.D. LAB POCT ORDERABLES - DEVICE [facility] [address] [place] [id number], [facility] CNFL [facility] in [address] [address] documented in this encounter Visit Diagnoses Diagnosis Anticoagulant Therapy [Z79.01] Mutation Factor V Leiden Heterozygous (HCC) Monitoring For Therapeutic Drug Therapy [Z51.81] Thrombosis Deep Vein Personal History documented in this encounter Additional Health Concerns Assessment Noted Time PHQ-9 Depression Total Score: 1 06/12/19 24 4:14 PM MANAGER QUALITY IMPROVEMENT documented as of this encounter Care Teams Inletter Relationship Specialty Start Date End Date Stefan Salomon M.D. [address] [place] [phone] PCP - General Family Medicine 07/09/22 Anticoagulation Team 07/09/22 documented as of this encounter
--- OUTSIDE RECORDS SUMMARY | 2023-07-09 07:54 | XMS_ITS | Referral Summary ---
Author Name Unknown Organization [facility] Address [address] [place] [address] Care Team Providers Care Printing Mechanist Name Role Phone Stefan Salomon M.D. Primary Care Provider [phone] Source Comments Patient records contain information from all sites at [facility]. For routine questions regarding patient records, call [phone] during business hours, M-F 8:00 AM - 5:00 PM Central Time. Record requests for emergency care only can be directed to [phone] at any time.[facility] Encounters Date Type Department Care Team Description 07/03/2023 Refill Department of Family Medicine, [facility], in [address] [phone] Stefan Salomon M.D. Med Refill 06/21/2023 7:[address] WORKER - 06/21/2023 11:[address] WORKER Hospital Encounter Department of Laboratory Medicine in [address] [phone] Stefan Salomon M.D. Anticoagulant Therapy [Z79.01]; Mutation Factor V Leiden Heterozygous (HCC); Monitoring For Therapeutic Drug Therapy [Z51.81]; Thrombosis Deep Vein Personal History Discharge Disposition: Home or Self Care 06/21/2023 9:[address] WORKER Anticoagulation Visit Department of Anticoagulation in [place], [place] [address] [place] [address] Stefan Salomon M.D. Anticoagulant Therapy [Z79.01]; Mutation Factor V Leiden Heterozygous (HCC); Monitoring For Therapeutic Drug Therapy [Z51.81]; Thrombosis Deep Vein Personal History 06/12/2023 4:[address] WORKER Nurse Only Department of Family Medicine, [facility], in [address] [phone] Stefan Salomon M.D. Olson, Beata E, R.N. Nurse Visit (CSA enrollment) Discharge Disposition: Home or Self Care 06/12/2023 4:[address] WORKER Office Visit Department of Family Medicine, [facility], in [address] [phone] Stefan Salomon M.D. Chronic Pain Syndrome (Primary Dx); Arthritis Shoulder; Osteoarthritis; Degeneration Disc Cervical; Stasis Ulcer With Varicose Vein Left (HCC); Non-Pressure Chronic Ulcer Of Unspecified Part Of Right Lower Leg With Unspecified Severity (HCC); Activated Protein C Resistance (HCC); History Of Falling; Hypertension Essential Primary; Restless Leg Syndrome Discharge Disposition: Home or Self Care 06/05/2023 8:[address] WORKER Anticoagulation Visit Department of Anticoagulation in [address] [address] Stefan Salomon M.D. Anticoagulant Therapy [Z79.01] (Primary Dx); Mutation Factor V Leiden Heterozygous (HCC); Monitoring For Therapeutic Drug Therapy [Z51.81]; Thrombosis Deep Vein Personal History 06/04/2023 1:[address] WORKER - 06/04/2023 11:[address] WORKER Hospital Encounter Department of Laboratory Medicine in [address] [address] Stefan Salomon M.D. Anticoagulant Therapy [Z79.01]; Mutation Factor V Leiden Heterozygous (HCC); Monitoring For Therapeutic Drug Therapy [Z51.81]; Thrombosis Deep Vein Personal History Discharge Disposition: Home or Self Care 06/01/2023 Refill Department of Family Medicine, [facility], in [address] [phone] Stefan Salomon M.D. Med Refill 05/31/2023 Clinical Communication Department of Family Medicine, [facility], in [address] [phone] Stefan Salomon M.D. 05/17/2023 7:[address] WORKER - 05/17/2023 11:[address] WORKER Hospital Encounter Department of Laboratory Medicine in [address] [address] Stefan Salomon M.D. Anticoagulant Therapy [Z79.01]; Mutation Factor V Leiden Heterozygous (HCC); Monitoring For Therapeutic Drug Therapy [Z51.81]; Thrombosis Deep Vein Personal History Discharge Disposition: Home or Self Care 05/17/2023 10:[address] WORKER Anticoagulation Visit Department of Anticoagulation in [place], [place] [address] [place] [phone] Stefan Salomon M.D. Anticoagulant Therapy [Z79.01] (Primary Dx); Mutation Factor V Leiden Heterozygous (HCC); Monitoring For Therapeutic Drug Therapy [Z51.81]; Thrombosis Deep Vein Personal History; Hypertension Essential Primary; Hyperlipidemia; Custodial (Current) Anticoagulant Treatment 05/01/2023 Refill Department of Family Medicine, [facility], in [address] [address] Stefan Salomon M.D. Med Refill 04/22/2023 8:[address] WORKER Anticoagulation Visit Department of Anticoagulation in [place], [place] [address] [place] [phone] Stefan Salomon M.D. Anticoagulant Therapy [Z79.01] (Primary Dx); Mutation Factor V Leiden Heterozygous (HCC); Monitoring For Therapeutic Drug Therapy [Z51.81]; Thrombosis Deep Vein Personal History 04/19/2023 Clinical Communication Department of Anticoagulation in [place], [place] [address] [place] [phone] Pippa Morales R.N. Anticoagulation (Unable to reach 04/19/23) 04/19/2023 9:[address] WORKER - 04/19/2023 11:[address] WORKER Hospital Encounter Department of Laboratory Medicine in [address] [phone] Stefan Salomon M.D. Discharge Disposition: Home or Self Care 04/19/2023 9:[address] WORKER Anticoagulation Visit Department of Anticoagulation in [place], [place] [address] [place] [address] Stefan Salomon M.D. Anticoagulant Therapy [Z79.01]; Mutation Factor V Leiden Heterozygous (HCC); Monitoring For Therapeutic Drug Therapy [Z51.81]; Thrombosis Deep Vein Personal History 04/19/2023 7:[address] WORKER - 04/19/2023 9:[address] WORKER Hospital Encounter Department of Laboratory Medicine and Pathology, [place], [place] [address] [place] [phone] Stefan Salomon M.D. Anticoagulant Therapy [Z79.01]; Mutation Factor V Leiden Heterozygous (HCC); Monitoring For Therapeutic Drug Therapy [Z51.81]; Thrombosis Deep Vein Personal History Discharge Disposition: Home or Self Care 04/19/2023 7:[address] WORKER - 04/19/2023 7:[address] WORKER Hospital Encounter Department of Laboratory Medicine in [address] [address] Stefan Salomon M.D. Hypertension Essential Primary; Hyperlipidemia Discharge Disposition: Home or Self Care from Last 3 Months Allergies Active Allergy Reactions Criticality Noted Date Comments Atorvastatin Myalgia 02/08/2017 Leg Pain/Cramps Daqnezw-Lgh-Xxr Reductase Inhibitors Other (see comments) 09/10/2022 Medications [...] Limb Generalized 11/18/2011 Overview: Saw Neurologist at [facility] on 09/16/2009. MRI lumbar spine done [...] How often do you attend muslim or christianity serv ices? Never 07/09/2022 Do you belong [...] Date Recorded PHQ-2 Score 0 06/12/2023 [facility] Occupat ional [facility] - Occupational [...] file Gender Identity Male 07/02/2017 9:[address] WORKER Sexual Orientation Straight 07/02/2017 9: [address] WORKER Last Filed Vital Signs Vital Sign Reading Time Taken Comments Blood Pressure 148/82 06/12/2023 4:[address] WORKER Pulse 63 06/12/2023 4:[address] WORKER Temperature 36.6 ??C (97.9 ??F) 06/12/2023 4:23 PM CS T Respiratory Rate 18 06/12/2023 4:[address] WORKER Oxygen Saturation 94% 06/12/2023 4:[address] WORKER Inhaled Oxygen Concentration - - Weight 95.6 kg (210 lb 12.2 oz) 06/12/2023 4:[address] WORKER Height 176.5 cm (5' 9.49) 08/01/2022 9:59 AM CS T Body Mass Index 30.69 08/01/2022 9:[address] WORKER Plan of Treatment Upcoming Encounters Date Type Department Care Team (Latest Contact Info) Description 08/02/2023 8:[address] WORKER Appointment Department of Laboratory Medicine in [address] [phone] Stefan Salomon M.D. [address] [place] [phone] 08/02/2023 9:[address] WORKER Anticoagulation Visit Department of Anticoagulation in [place] [address] [place] [address] Stefan Salomon M.D. [address] [place] [phone] 09/24/2023 10:15 AM CDT Clinical Communication Virtual Review in [place], [place] [address] [place] [address] 09/25/2023 9:40 AM CDT Office Visit Department of Dermatology in [place], [place] [address] [place] [phone] Kira Hannah, HECTOR, C.N.P., M.S.N. [address] [place] [phone] Jordan Riojas M.D. [address] [place] [phone] Medical Devices Implanted Type Area Freight Router Device Identifier Shelf Expiration Date Model / Serial / Lot Mineralized Cancellous Bone 2.0 - Anne [id number] Implanted:Qty: 1 on 08/10/2015 [facility] Description:Device Manufactu rer - [employer]. Body Location - Other. tooth-13. Device Status Text - [id number]. Hardware E.G. Pins/Screws/Rk s Hardware e.g. pins/screws /rods Mouth Screw Rst Curly Taper Rp 4.3x13.0 - Anne [id number] Implanted:Qty: 1 on 07/03/2007 Hardware e.g. pins/screws /rods Tooth [employer] Description:Device Manufactu rer - [employer]. Body Location - Tooth 5. Device Status Text - [id number]. Abutment Nobrpl Guest House Manager 3.5x5 - Anne [id number] Implanted:Qty: 1 on 03/03/2012 Hardware e.g. pins/screws /rods Tooth [employer] Description:Device Manufactu rer - [employer]. Body Location - Tooth 29. Device Status Text - [id number]. Screw Nobrpl Curly Taper Guest House Manager 3.5x13.0 - Anne [id number] Implanted:Qty: 1 on 08/23/2014 Hardware e.g. pins/screws /rods Tooth [employer] Description:Device Manufactu rer - [employer]. Body Location - Other. tooth- 28. Device Status Text - [id number]. Screw Nobrpl Curly Taper Rp 4.3x10.0 - Anne [id number] Implanted:Qty: 1 on 08/10/2015 Hardware e.g. pins/screws /rods Tooth [employer] Description:Device Manufactu rer - [employer]. Body Location - Other. tooth- 20. Device Status Text - [id number]. Abutment Nobrpl Rp 4.3x3 - Anne [id number] Implanted:Qty: 1 on 02/08/2016 Hardware e.g. pins/screws /rods Tooth [employer] Description:Device Manufactu rer - [employer]. Body Location - Other. tooth- 11. Device Status Text - [id number]. Patch Dura-Guard 4x 4 - Anne [id number] Implanted:Qty: 1 on 08/19/1996 Mesh or Patch [employer] Description:Device Manufactu rer - [employer]. Device Status Text - [id number]. Allograft Bioxclude Chorion 1cm X 2.5cm - Anne [id number] Implanted:Qty: 1 on 01/15/2014 Mesh or Patch Tooth Unknown Description:Device Manufactu rer - Unknown. Body Location - tooth-5. Device Status Text - [id number]. Allograft Bioxclude Chorion 1.5cm X 2cm - Anne [id number] Implanted:Qty: 1 on 08/10/2015 Mesh or Patch Other/Legacy - See Implant Description Unknown Description:Device Manufactu rer - Unknown. Body Location - Other. Left. Device Status Text - [id number]. Procedures Procedure Name Priority Date/Time Associated Diagnosis Comments INR REFLEX, POCT, B Routine 06/21/2023 7:[address] WORKER Anticoagulant Therapy [Z79.01] Mutation Factor V Leiden Heterozygous (HCC) Monitoring For Therapeutic Drug Therapy [Z51.81] Thrombosis Deep Vein Personal History CBC WITH DIFFERENTIAL, B Routine 06/12/2023 5:[address] WORKER Restless Leg Syndrome FERRITIN, S Routine 06/12/2023 5:[address] WORKER Restless Leg Syndrome INR REFLEX, POCT, B Routine 06/04/2023 1:[address] WORKER Anticoagulant Therapy [Z79.01] Mutation Factor V Leiden Heterozygous (HCC) Monitoring For Therapeutic Drug Therapy [Z51.81] Thrombosis Deep Vein Personal History INR REFLEX, POCT, B Routine 05/17/2023 7:[address] WORKER Anticoagulant Therapy [Z79.01] Mutation Factor V Leiden Heterozygous (HCC) Monitoring For Therapeutic Drug Therapy [Z51.81] Thrombosis Deep Vein Personal History LIPID PANEL, S Routine 04/19/2023 7:[address] WORKER Hyperlipidemia BASIC METABOLIC PANEL, S/P Routine 04/19/2023 7:[address] WORKER Hypertension Essential Primary INR REFLEX, POCT, B Routine 04/19/2023 7:[address] WORKER from Last 3 Months Results * INR Reflex, POCT, Blood (06/21/2023 7:[address] WORKER) Only the most recent of4 resultswithin the time period is included. INR Reflex, POCT, B 2.5 06/21/2023 7:[address] WORKER [facility] Comment: ----ADDITIONAL INFORMATION---- Standard intensity warfarin therapeutic range: 2.0 to 3.0 ?? High intensity warfarin therapeutic range: 2.5 to 3.5 Blood (Blood, Capillary) 06/21/2023 7:[address] WORKER 06/21/2023 7:[address] WORKER Stefan Salomon M.D. LAB POCT ORDERABLES - DEVICE Performing Organization Address City/State/[facility] Co de Phone Number [facility] [address] [place] [address], [facility] in [address] [address] * CBC with Differential, Blood (06/12/2023 5:[address] WORKER) Hemoglobin 13.6 13.2 - 16.6 g/dL 06/12/2023 5:[address] WORKER CNFL Hematocrit 41.6 38.3 - 48.6 % 06/12/2023 5:[address] WORKER CN[facility] Erythrocytes 4.44 4.35 - 5.65 x10(12)/L 06/12/2023 5:[address] WORKER CN[facility] MCV 93.7 78.2 - 97.9 fL 06/12/2023 5:[address] WORKER CNFL RBC Distrib Width 13.0 11.8 - 14.5 % 06/12/2023 5:[address] WORKER CNFL Platelet Count 208 135 - 317 x10(9)/L 06/12/2023 5:[address] WORKER CNFL Leukocytes 5.7 3.4 - 9.6 x10(9)/L 06/12/2023 5:[address] WORKER CNFL Neutrophils 3.52 1.56 - 6.45 x10(9)/L 06/12/2023 5:[address] WORKER CNFL Lymphocytes 1.23 0.95 - 3.07 x10(9)/L 06/12/2023 5:[address] WORKER CNFL Monocytes 0.53 0.26 - 0.81 x10(9)/L 06/12/2023 5:[address] WORKER CNFL Eosinophils 0.34 0.03 - 0.48 x10(9)/L 06/12/2023 5:[address] WORKER CNFL Basophils 0.05 0.01 - 0.08 x10(9)/L 06/12/2023 5:[address] WORKER CNFL Blood (Blood, Venous) 06/12/2023 5:[address] WORKER 06/12/2023 5:[address] WORKER Stefan Salomon M.D. LAB BLOOD ADD-ON [facility] [address] [place] [address], [facility] CNFL [facility] in [address] [address] * Ferritin (06/12/2023 5:[address] WORKER) Ferritin, S 110 31 - 409 mcg/L 06/13/2023 1:[address] WORKER [facility] Comment: Biotin has been identified by the gastroenterology technician as a potential interfering substance. Higher concentrations of biotin may be found in multivitamins, hair/nail supplements, and workout supplements. If the result does not match clinical observations, repeat testing after patient refrains from the use of supplements for at least 12 hours. Blood (Blood, Venous) 06/12/2023 5:[address] WORKER 06/13/2023 12:[address] WORKER Stefan Salomon M.D. LAB BLOOD ADD-ON [facility] [address] [place] [address], [facility]DW[facility] in [place] [address] [place] [address] * Lipid Panel (04/19/2023 7:[address] WORKER) Triglycerides 113 mg/dL 04/19/2023 11:[address] WORKER [facility] Comment: ----REFERENCE VALUE---- Normal: <150 mg/dL Borderline High: 150-199 mg/dL High: 200-499 mg/dL Very High: > or =500 mg/dL Cholesterol, Total 144 mg/dL 2022 11:[address] WORKER CNFL Comment: ----REFERENCE VALUE---- Desirable: < 200 mg/dL Borderline High: 200 - 239 mg/dL High: > or = 240 mg/dL Cholesterol, LDL, Calculated 76 mg/dL 04/19/2023 12:[address] WORKER CNFL Comment: ----REFERENCE VALUE---- Desirable: <100 mg/dL Above Desirable: 100-129 mg/dL Borderline High: 130-159 mg/dL High: 160-189 mg/dL Very High: >=190 mg/dL ----ADDITIONAL INFORMATION---- LDL cholesterol calculated using the Sosa/NIH equation. Cholesterol, HDL 48 >=40 mg/dL 04/19/20 12:[address] WORKER CNFL Cholesterol, Non-HDL, Calculated 96 mg/dL 04/19/2023 12:[address] WORKER CN[facility] Comment: ----REFERENCE VALUE---- Desirable: <130 mg/dL Above Desirable: 130-159 mg/dL Borderline High: 160-189 mg/dL High: 190-219 mg/dL Very High: > or =220 mg/dL Fasting (8 HR or more) No 04/19/2023 7:[address] WORKER CNFL Blood (Blood, Venous) 04/19/2023 7:[address] WORKER 04/19/2023 7:[address] WORKER Stefan Salomon M.D. LAB BLOOD ADD-ON [facility] [address] [place] [address], [facility] CNFL [facility] [place] [address] * Basic Metabolic Panel (04/19/2023 7:[address] WORKER) Potassium, P 4.1 3.6 - 5.2 mmol/L 04/19/2023 11:[address] WORKER CNFL Sodium, P 138 135 - 145 mmol/L 04/19/2023 11:[address] WORKER CNFL Chloride, P 102 98 - 107 mmol/L 04/19/2023 11:[address] WORKER CNFL Bicarbonate, P 23 22 - 29 mmol/L 04/19/2023 11:[address] WORKER CNFL Anion Gap, P 13 7 - 15 04/19/2023 11:[address] WORKER CNFL BUN (Blood Urea Nitrogen), P 21 8 - 24 mg/dL 04/19/2023 11:[address] WORKER CNFL Creatinine 0.87 0.74 - 1.35 mg/dL 04/19/2023 11:[address] WORKER CNFL Estimated GFR (eGFR) >90 >=60 mL/min/BSA 04/19/2023 11:[address] WORKER CNFL Comment: Estimated GFR calculated using the 2020 CKD_EPI creatinine equation. Calcium, Total, P 9.1 8.8 - 10.2 mg/dL 04/19/2023 11:[address] WORKER CNFL Glucose, P 103 70 - 140 mg/dL 04/19/2023 11:[address] WORKER CNFL Blood (Blood, Venous) 04/19/2023 7:[address] WORKER 04/19/2023 7:[address] WORKER Stefan Salomon M.D. LAB BLOOD ADD-ON [facility] [address] [place] [address], [place] CNFL [facility] in [address] [address] from Last 3 Months Care Teams Printing Mechanist Relationship Specialty Start Date End Date Stefan Salomon M.D. [address] [place] [phone] PCP - General Family Medicine 07/09/22 Anticoagulation Team 07/09/22
--- OUTSIDE RECORDS SUMMARY | 2023-07-09 07:54 | XMS_ITS | Encounter Summary ---
Author Name Unknown Organization [facility] Address [address] [place] [address] Care Team Providers Care Division Chair Name Role Phone Stefan Salomon M.D. Primary Care Provider [phone] Reason for Visit * Reason Comments Med Refill Encounter Details Date Type Department Care Team (Late st Contact Info) Description 07/03/2023 Refill Department of Family Medicine, [facility], in [address] [phone] Stefan Salomon M.D. [address] [place] [phone] Med Refill Social History Tobacco Use Types [...] week 07/09/2022 How often do you attend mandaeism or temple serv ices? Never 07/09/2022 Do you belong to any clubs o r organizations such as mandaeism groups, unions, fraternal or athletic groups, or [...] Answer Date Recorded PHQ-2 Score 0 06/12/2023 [facility] of Occupat ional Health - [...] file Gender Identity Male 07/02/2017 9:12 AM TOOL AND DIE MAKER/DESIGNER Sexual Orientation Straight 07/02/2017 9: 12 AM TOOL AND DIE MAKER/DESIGNER documented as of this encounter Miscellaneous Notes * Telephone Encounter - Rebeca Garg L.P.NCoty - 07/04/2023 10:11 AM TOOL AND DIE MAKER/DESIGNER Controlled substance renewal for tramadol 50 mg: No nursing concerns Renewal is pended per the controlled substance prescribing plan located in the controlled substancesynopsis Date last renewed (start date): 06/05/2023 Last provider visit: 06/12/2023 Last urine drug screen: 02/21/2023 ; Next due: 02/22/2024 Screenings due: none Next provider visit due: 12/11/2023 Chronic Opioid therapy agreement last reviewed/signed: 06/12/2023 This prescription may be filled on 07/05/2023, and next renewal may be on or after 08/04/2023 AND DIE MAKER/DESIGNER documented in this encounter Plan of Treatment Upcoming Encounters Date Type Department Care Team (Latest Contact Info) Description 08/02/2023 8:50 AM TOOL AND DIE MAKER/DESIGNER Appointment Department of Laboratory Medicine in [address] [phone] Stefan Salomon M.D. [address] [place] [phone] 08/02/2023 9:30 AM TOOL AND DIE MAKER/DESIGNER Anticoagulation Visit Department of Anticoagulation in [address] [phone] Stefan Salomon M.D. [address] [place] [phone] 09/24/2023 10:15 AM CDT Clinical Communication Virtual Review in [place], [place] [address] [place] [address] 09/25/2023 9:40 AM CDT Office Visit Department of Dermatology in [place], [place] [address] [place] [phone] Kira Hannah APRN, C.N.P., M.S.N. [address] [place] [phone] Jordan Riojas M.D. [address] [place] [phone] documented as of this encounter Visit Diagnoses Diagnosis Chronic Pain Syndrome Degeneration Disc Cervical Polyarthralgia documented in this encounter Additional Health Concerns Assessment Noted Time PHQ-9 Depression Total Score: 1 06/12/19 24 4:14 PM TOOL AND DIE MAKER/DESIGNER documented as of this encounter Care Teams Division Chair Relationship Specialty Start Date End Date Stefan Salomon M.D. [address] [phone] PCP - General Family Medicine 07/09/22 Anticoagulation Team 07/09/22 documented as of this encounter
--- OUTSIDE RECORDS SUMMARY | 2023-07-09 07:54 | XMS_ITS | Encounter Summary ---
Author Name Unknown Organization [facility] Address [address] [place] [address] Care Team Providers Care Car Builder Name Role Phone Stefan Salomon M.D. Primary Care Provider [phone] Encounter Details Date Type Department Care Team (Late st Contact Info) Description 05/31/2023 Clinical Communication Department of Family Medicine, [facility], in [address] [phone] Stefan Salomon M.D. [address] [place] [phone] Social History Tobacco Use Types Packs/Day Years [...] How often do you attend yazidi or jew serv ices? Never 07/09/2022 Do [...] Answer Date Recorded PHQ-2 Score 0 06/12/2023 [facility] of Occupat ional Health - Occupational Stress [...] file Gender Identity Male 07/02/2017 9:12 AM CATCH BASIN CLEANER Sexual Orientation Straight 07/02/2017 9: 12 AM CATCH BASIN CLEANER documented as of this encounter Plan of Treatment Upcoming Encounters Date Type Department Care Team (Latest Contact Info) Description 08/02/2023 8:50 AM CATCH BASIN CLEANER Appointment Department of Laboratory Medicine in [address] [phone] Stefan Salomon M.D. [address] [place] [phone] 08/02/2023 9:30 AM CATCH BASIN CLEANER Anticoagulation Visit Department of Anticoagulation in [place], [place] [address] [place] [phone] Stefan Salomon M.D. [address] [place] [phone] 09/24/2023 10:15 AM CDT Clinical Communication Virtual Review in [place], [place] [address] [place] [address] 09/25/2023 9:40 AM CDT Office Visit Department of Dermatology in [place], [place] [address] [place] [phone] Kira Hannah, HECTOR, C.N.P., M.S.N. [address] [place] [phone] Jordan Riojas M.D. [address] [place] [phone] documented as of this encounter Visit Diagnoses Not on filedocumented in this encounter Additional Health Concerns Assessment Noted Time PHQ-9 Depression Total Score: 0 07/09/19 23 8:29 AM CATCH BASIN CLEANER documented as of this encounter Care Teams Car Builder Relationship Specialty Start Date End Date Stefan Salomon M.D. [address] [place] [phone] PCP - General Family Medicine 07/09/22 Anticoagulation Team 07/09/22 documented as of this encounter
--- OUTSIDE RECORDS SUMMARY | 2023-07-09 07:54 | XMS_ITS | Encounter Summary ---
Author Name Unknown Organization [facility] Address [address] [place] [address] Care Team Providers Care Us Customs And Border Officer Name Role Phone Stefan Salomon M.D. Primary Care Provider [phone] Reason for Visit * Outpatient (Routine) - Authorized Specialty Diagnoses / Procedures Referred By Contdayana t Referred To Contact Anticoagulation Diagnoses Anticoagulant Therapy Mutation Factor V Leiden Heterozygous (HCC) Monitoring For Therapeutic Drug Therapy Thrombosis Deep Vein Personal History Stefan Salomon M.D. [address] [phone] [facility] Referral ID Status Reason Start Date Expiration Date V isits Requested Visits Authorized [id number] Authorized 02/01/2023 01/31/2026 300 300 Encounter Details Date Type Department Care Team (Latest Contact Info) Description 06/05/2023 8:00 AM MUSIC DEPARTMENT CHAIR Anticoagulation Visit Department of Anticoagulation in [place], [place] [address] [place] [address] Stefan Salomon M.D. [address] [place] [phone] Anticoagulant Therapy [Z79.01] (Primary Dx); Mutation [...] week 07/09/2022 How often do you attend taoist or nondenominational serv ices? Never 07/09/2022 Do you belong to any clubs o r organizations such as taoist groups, unions, fraternal or athletic groups, or [...] Answer Date Recorded PHQ-2 Score 0 07/09/2022 [facility] of Occupat ional Health - Occupational Stress [...] file Gender Identity Male 07/02/2017 9:12 AM MUSIC DEPARTMENT CHAIR Sexual Orientation Straight 07/02/2017 9: 12 AM MUSIC DEPARTMENT CHAIR documented as of this encounter Patient Instructions * Patient Instructions* Joi David RKimberly. - 06/05/2023 8:00 AM MUSIC DEPARTMENT CHAIR Your next INR will be 06/21/23. You will need to call the Anticoagulation Program for warfarin dosing at the scheduled time for your nurse visit, as indicated on your Patient Appointment Guide (PAG). To reschedule your appointment or for questions about your warfarin, please call Primary Care Anticoagulation Program at [phone] from 7:30 am to 4:30 pm. Saturday-Saturday [...] if you start any herbal or other osyf-urk-swqbhdp product (check with your doctor, a nurse, or pharmacist). If you change your diet significantly. If you decide to stop or start using tobacco or alcohol. If you notice unusual bruising or bleeding. If you notice dark, tarry, or bright red stools or blood in your urine. If you have a painful and swollen calf. C DEPARTMENT CHAIR documented in this encounter Progress Notes * [...] in 17 days per consult with Anticoagulation [facility]. Provider consulted: Alfonso Nash- Anticoagulation [facility] Pt is on injectable anticoagulant: No. Plan used: Consult. See Anticoagulation Track Calendar for dosing and plan details. Anticoagulation Visit Summary: Patient repeats back dosing instructions, date of next INR, and has no further questions at this time. Total time spent with patient: N/A C DEPARTMENT CHAIR documented in this encounter Plan of Treatment Upcoming Encounters Date Type Department Care Team (Latest Contact Info) Description 08/02/2023 8:50 AM MUSIC DEPARTMENT CHAIR Appointment Department of Laboratory Medicine in [address] [phone] Stefan Salomon M.D. [address] [place] [phone] 08/02/2023 9:30 AM MUSIC DEPARTMENT CHAIR Anticoagulation Visit Department of Anticoagulation in [place], [place] [address] [place] [phone] Stefan Salomon M.D. [address] [place] [phone] 09/24/2023 10:15 AM CDT Clinical Communication Virtual Review in [place], [place] 200 [place] [address] 09/25/2023 9:40 AM CDT Office Visit Department of Dermatology in [place], [place] [facility] [address] [place] [phone] Kira Hannah, HECTOR, C.N.P., M.S.N. [address] [place] [phone] Jordan Riojas M.D. [address] [place] [phone] documented as of this encounter Results * INR Reflex, POCT, Blood (06/21/2023 7:49 AM MUSIC DEPARTMENT CHAIR) INR Reflex, POCT, B 2.5 06/21/2023 7:49 AM MUSIC DEPARTMENT CHAIR CNFL Comment: ----ADDITIONAL INFORMATION---- Standard intensity warfarin therapeutic range: 2.0 to 3.0 ?? High intensity warfarin therapeutic range: 2.5 to 3.5 Blood (Blood, Capillary) 06/21/2023 7:49 AM MUSIC DEPARTMENT CHAIR 06/21/2023 7:49 AM MUSIC DEPARTMENT CHAIR Stefan Salomon M.D. LAB POCT ORDERABLES - DEVICE [facility] [address] [place] [address], [facility] CNFL [facility] in [address] [address] documented in this encounter Visit Diagnoses Diagnosis Anticoagulant Therapy [Z79.01]- Primary Mutation Factor V Leiden Heterozygous (HCC) Monitoring For Therapeutic Drug Therapy [Z51.81] Thrombosis Deep Vein Personal History documented in this encounter Additional Health Concerns Assessment Noted Time PHQ-9 Depression Total Score: 0 07/09/19 23 8:29 AM MUSIC DEPARTMENT CHAIR documented as of this encounter Care Teams Us Customs And Border Officer Relationship Specialty Start Date End Date Stefan Salomon M.D. [address] [place] [phone] PCP - General Family Medicine 07/09/22 Anticoagulation Team 07/09/22 documented as of this encounter
--- OUTSIDE RECORDS SUMMARY | 2023-07-09 07:54 | XMS_ITS | Encounter Summary ---
Author Name Unknown Organization [facility] Address [address] [place] [address] Care Team Providers Care Manager Qa Name Role Phone Stefan Salomon M.D. Primary Care Provider [phone] Encounter Details Date Type Department Care Team (Latest Contact Info) Description 06/04/2023 1:46 PM CANCELING MACHINE OPERATOR - 06/04/2023 11:59 PM CANCELING MACHINE OPERATOR Hospital Encounter Department of Laboratory Medicine in [address] [phone] Stefan Salomon M.D. [address] [place] [phone] Anticoagulant Therapy [Z79.01]; Mutation Factor V Leiden [...] How often do you attend jain or confucianism serv ices? Never 07/09/2022 Do you belong [...] Date Recorded PHQ-2 Score 0 07/09/2022 [facility] of Occupat ional Health [...] file Gender Identity Male 07/02/2017 9:12 AM CANCELING MACHINE OPERATOR Sexual Orientation Straight 07/02/2017 9: 12 AM CANCELING MACHINE OPERATOR documented as of this encounter [...] Pain/Nonacute Pain. 240 tablet 0 06/05/2023 07/03/2023 zolpidem (AMBIEN) 5 mg tablet TAKE ONE TABLET BY MOUTH AT BEDTIME NEEDED FOR SLEEP 30 tablet 0 09/13/2022 06/12/2023 documented as of this encounter Plan of Treatment Upcoming Encounters Date Type Department Care Team (Latest Contact Info) Description 08/02/2023 8:50 AM CANCELING MACHINE OPERATOR Appointment Department of Laboratory Medicine in [address] [phone] Stefan Salomon M.D. [address] [place] [phone] 08/02/2023 9:30 AM CANCELING MACHINE OPERATOR Anticoagulation Visit Department of Anticoagulation in [address] [phone] Stefan Salomon M.D. [address] [place] [phone] 09/24/2023 10:15 AM CDT Clinical Communication Virtual Review in [place], [place] 200 [place] [address] 09/25/2023 9:40 AM CDT Office Visit Department of Dermatology in [place], [place] [address] [place] [phone] Kira Hannah, HECTOR, C.N.P., M.S.N. [address] [place] [phone] Jordan Riojas M.D. [address] [place] [phone] documented as of this encounter Procedures Procedure Name Priority Date/Time Associated Diagnosis Comments INR REFLEX, POCT, B Routine 06/04/2023 1:50 PM CANCELING MACHINE OPERATOR Anticoagulant Therapy [Z79.01] Mutation Factor V Leiden Heterozygous (HCC) Monitoring For Therapeutic Drug Therapy [Z51.81] Thrombosis Deep Vein Personal History documented in this encounter Results * INR Reflex, POCT, Blood (06/04/2023 1:50 PM CANCELING MACHINE OPERATOR) INR Reflex, POCT, B 2.0 06/04/2023 1:50 PM CANCELING MACHINE OPERATOR CNFL Comment: ----ADDITIONAL INFORMATION---- Standard intensity warfarin therapeutic range: 2.0 to 3.0 ?? High intensity warfarin therapeutic range: 2.5 to 3.5 Blood (Blood, Capillary) 06/04/2023 1:50 PM CANCELING MACHINE OPERATOR 06/04/2023 1:50 PM CANCELING MACHINE OPERATOR Stefan Salomon M.D. LAB POCT ORDERABLES - DEVICE [facility] [address] [place] [address], [facility] CNFL [facility] in [address] [address] documented in this encounter Visit Diagnoses Diagnosis Anticoagulant Therapy [Z79.01] Mutation Factor V Leiden Heterozygous (HCC) Monitoring For Therapeutic Drug Therapy [Z51.81] Thrombosis Deep Vein Personal History documented in this encounter Additional Health Concerns Assessment Noted Time PHQ-9 Depression Total Score: 0 07/09/19 23 8:29 AM CANCELING MACHINE OPERATOR documented as of this encounter Care Teams Manager Qa Relationship Specialty Start Date End Date Stefan Salomon M.D. [address] [place] [phone] PCP - General Family Medicine 07/09/22 Anticoagulation Team 07/09/22 documented as of this encounter
--- OUTSIDE RECORDS SUMMARY | 2023-07-09 07:54 | XMS_ITS | Encounter Summary ---
Author Name Unknown Organization [facility] Address [address] [place] [address] Care Team Providers Care Practice Performance Manager Name Role Phone Stefan Salomon M.D. Primary Care Provider [phone] Encounter Details Date Type Department Care Team (Latest Contact Info) Description 05/17/2023 7:20 AM BRASS AND WIND INSTRUMENT REPAIRER - 05/17/2023 11:59 PM BRASS AND WIND INSTRUMENT REPAIRER Hospital Encounter Department of Laboratory Medicine in [address] [phone] Stefan Salomon M.D. [address] [place] [phone] Anticoagulant Therapy [Z79.01]; Mutation Factor V Leiden [...] week 07/09/2022 How often do you attend islam or methodist serv ices? Never 07/09/2022 Do you belong to any clubs o r organizations such as islam groups, unions, fraternal or athletic groups, or [...] file Gender Identity Male 07/02/2017 9:12 AM BRASS AND WIND INSTRUMENT REPAIRER Sexual Orientation Straight 07/02/2017 9: 12 AM BRASS AND WIND INSTRUMENT REPAIRER documented as of this encounter Medications at [...] Pain/Nonacute Pain. 240 tablet 0 05/03/2023 06/01/2023 zolpidem (AMBIEN) 5 mg tablet TAKE ONE TABLET BY MOUTH AT BEDTIME NEEDED FOR SLEEP 30 tablet 0 09/13/2022 06/12/2023 documented as of this encounter Plan of Treatment Upcoming Encounters Date Type Department Care Team (Latest Contact Info) Description 08/02/2023 8:50 AM BRASS AND WIND INSTRUMENT REPAIRER Appointment Department of Laboratory Medicine in [address] [phone] Stefan Salomon M.D. [address] [place] [phone] 08/02/2023 9:30 AM BRASS AND WIND INSTRUMENT REPAIRER Anticoagulation Visit Department of Anticoagulation in [place], [place] [address] [place] [phone] Stefan Saloomn M.D. [address] [place] [phone] 09/24/2023 10:15 AM CDT Clinical Communication Virtual Review in [place], [place] 200 [place] [address] 09/25/2023 9:40 AM CDT Office Visit Department of Dermatology in [place], [place] [address] [place] [phone] Kira Hannah, HECTOR, C.N.P., M.S.N. [address] [place] [phone] Jordan Riojas M.D. [address] [place] [phone] documented as of this encounter Procedures Procedure Name Priority Date/Time Associated Diagnosis Comments INR REFLEX, POCT, B Routine 05/17/2023 7:29 AM BRASS AND WIND INSTRUMENT REPAIRER Anticoagulant Therapy [Z79.01] Mutation Factor V Leiden Heterozygous (HCC) Monitoring For Therapeutic Drug Therapy [Z51.81] Thrombosis Deep Vein Personal History documented in this encounter Results * INR Reflex, POCT, Blood (05/17/2023 7:29 AM BRASS AND WIND INSTRUMENT REPAIRER) INR Reflex, POCT, B 2.1 05/17/2023 7:29 AM BRASS AND WIND INSTRUMENT REPAIRER CNFL Comment: ----ADDITIONAL INFORMATION---- Standard intensity warfarin therapeutic range: 2.0 to 3.0 ?? High intensity warfarin therapeutic range: 2.5 to 3.5 Blood (Blood, Capillary) 05/17/2023 7:29 AM BRASS AND WIND INSTRUMENT REPAIRER 05/17/2023 7:29 AM BRASS AND WIND INSTRUMENT REPAIRER Stefan Salomon M.D. LAB POCT ORDERABLES - DEVICE [facility] [address] [place] [address], [facility] CNFL [facility] in [address] [address] documented in this encounter Visit Diagnoses Diagnosis Anticoagulant Therapy [Z79.01] Mutation Factor V Leiden Heterozygous (HCC) Monitoring For Therapeutic Drug Therapy [Z51.81] Thrombosis Deep Vein Personal History documented in this encounter Additional Health Concerns Assessment Noted Time PHQ-9 Depression Total Score: 0 07/09/19 23 8:29 AM BRASS AND WIND INSTRUMENT REPAIRER documented as of this encounter Care Teams Practice Performance Manager Relationship Specialty Start Date End Date Stefan Salomon M.D. [address] [place] [phone] PCP - General Family Medicine 07/09/22 Anticoagulation Team 07/09/22 documented as of this encounter
--- OUTSIDE RECORDS SUMMARY | 2023-07-09 07:54 | XMS_ITS ---
Author Name Unknown Organization [facility] Address [address] [place] [address] Care Team Providers Care Hide And Skin Fleshing Machine Operator Name Role Phone Unavailable Unavailable Unavailable Surgery Details Not on file Complications Check Surgery Details section. Procedure Estimated Blood Loss Check Surgery Details section. Procedure Findings Check Surgery Details section. Procedure Specimens Taken Check Surgery Details section.
--- OUTSIDE RECORDS SUMMARY | 2023-07-09 07:54 | XMS_ITS | Encounter Summary ---
Author Name Unknown Organization [facility] Address [address] [place] [address] Care Team Providers Care Thermoplastic Technician Name Role Phone Stefan Salomon M.D. Primary Care Provider [phone] Reason for Referral * Outpatient (Routine) - Authorized Specialty Diagnoses / Procedures Referred By Piero self Referred To Contact Stefan Salomon M.D. [address] [place] [phone] [facility] Referral ID Status Reason Start Date Expiration Date V isits Requested Visits Authorized [id number] Authorized 06/12/2023 06/11/2026 1 1 ING MANAGER Reason for Visit * Reason Comments Nurse Visit CSA enrollment * Outpatient (Routine) - Closed Specialty Diagnoses / Procedures Referred By Piero self Referred To Contact Diagnoses Chronic Pain Syndrome Stefan Salomon M.D. [address] [place] [phone] [facility] Referral ID Status Reason Start Date Expiration Date Visits Re quested Visits Authorized [id number] Closed 06/04/2023 06/03/2026 1 1 Encounter Details Date Type Department Care Team (Late st Contact Info) Description 06/12/2023 4:30 PM FISHING MANAGER Nurse Only Department of Family Medicine, [facility], in [address] [phone] Stefan Salomon M.D. [address] [phone] Susan Baker R.N. 200 [place] [phone] Nurse Visit (CSA enrollment) Discharge Disposition: Home or Self Care Social [...] week 07/09/2022 How often do you attend faith or alevism serv ices? Never 07/09/2022 Do you belong to any clubs o r organizations such as faith groups, unions, fraternal or athletic groups, or [...] Answer Date Recorded PHQ-2 Score 0 06/12/2023 [facility] of Occupat ional Health - [...] file Gender Identity Male 07/02/2017 9:12 AM FISHING MANAGER Sexual Orientation Straight 07/02/2017 9: 12 AM FISHING MANAGER documented as of this encounter Progress Notes * Susan Baker R.N. - 06/12/2023 4:30 PM CST Wesley Bautista was enrolled in the Controlled Substance Prescribing Plan at the request of Provider: Dr Salomon for ongoing chronic opioid therapy related to chronic pain. An retail area manager was not used for this discussion. PEG Total Score: 0 (06/12/2023 4:21 PM) ORT Total Score (max 26): 0 (07/09/2022 8:33 AM) PHQ-9 Total Score (max 27): 1 (06/12/2023 4:14 PM) DESMOND-7 Total Score (max 21): 0 (06/12/2023 4:22 PM) Urine screening was not requested by the prescribing provider. Education: The following education was reviewed and provided: Controlled Substance Agreement-Chronic Opioid Therapy (GW6256-90)., Important Information About Opioid Medications (BO9929)., Chronic Pain: Take Steps to Regain Your Life (SX6011)., Controlled Substance Agreement: Safe Use of Controlled Substances (JL5875-890). I encouraged the patient to request renewals one week in advance through their pharmacy or by Patient Online Services to allow ample time for renewals. ING MANAGER documented in this encounter Plan of Treatment Upcoming Encounters Date Type Department Care Team (Latest Contact Info) Description 08/02/2023 8:50 AM FISHING MANAGER Appointment Department of Laboratory Medicine in [address] [phone] Stefan Salomon M.D. [address] [place] [phone] 08/02/2023 9:30 AM FISHING MANAGER Anticoagulation Visit Department of Anticoagulation in [address] [phone] Stefan Salomon M.D. [address] [place] [phone] 09/24/2023 10:15 AM CDT Clinical Communication Virtual Review in [place], [place] 200 [place] [address] 09/25/2023 9:40 AM CDT Office Visit Department of Dermatology in [place], [place] [address] [place] [phone] Kira Hannah APRN, C.N.P., M.S.N. [address] [place] [phone] Jordan Riojas M.D. [address] [place] [phone] Scheduled Referrals Name Type Priority Associated Diagnoses Order Schedule Primary Care nurse visit (clinic) - [facility] Region; CSA; Enrollment Outpatient Referral Routine Expected: 06/12/2024 (Approximate), Expires: 09/10/2024 documented as of this encounter Visit Diagnoses Diagnosis Chronic Pain Syndrome documented in this encounter Additional Health Concerns Assessment Noted Time PHQ-9 Depression Total Score: 1 06/12/19 24 4:14 PM FISHING MANAGER documented as of this encounter Care Teams Thermoplastic Technician Relationship Specialty Start Date End Date Stefan Salomon M.D. [address] [place] [phone] PCP - General Family Medicine 07/09/22 Anticoagulation Team 07/09/22 documented as of this encounter
--- OUTSIDE RECORDS SUMMARY | 2023-07-09 07:55 | XMS_ITS | Encounter Summary ---
Author Name Unknown Organization [facility] Address [address] [place] [address] Care Team Providers Care Senior Housekeeper Name Role Phone Stefan Salomon M.D. Primary Care Provider [phone] Encounter Details Date Type Department Care Team (Latest Contact Info) Description 03/14/2023 7:47 AM CDT - 03/14/2023 11:59 PM CDT Hospital Encounter Department of Laboratory Medicine in [address] [phone] Stefan Salomon M.D. [address] [place] [phone] Anticoagulant Therapy [Z79.01]; Mutation Factor V Leiden [...] How often do you attend protestant or mu-ism serv ices? Never 07/09/2022 Do [...] Answer Date Recorded PHQ-2 Score 0 07/09/2022 [facility] of Occupat ional Health - Occupational [...] file Gender Identity Male 07/02/2017 9:12 AM BALLISTICS TESTER Sexual Orientation Straight 07/02/2017 9: 12 AM BALLISTICS TESTER documented as of this encounter Medications at [...] your Anticoagulation Clinic. 130 tablet 3 10/18/2022 amLODIPine (NORVASC) 10 mg tablet Take 1 tablet (10 mg total) by mouth daily. 90 tablet 3 03/16/2022 03/20/2023 traMADoL (ULTRAM) 50 mg tabletIndications:C hronic Pain/Nonacute Pain Take 1-2 tablets (50-100 mg total) by mouth every 6 (six) hours as needed for pain Indications: Chronic Pain/Nonacute Pain. 240 tablet 0 02/21/2023 04/02/2023 zolpidem (AMBIEN) 5 mg tablet TAKE ONE TABLET BY MOUTH AT BEDTIME NEEDED FOR SLEEP 30 tablet 0 09/13/2022 06/12/2023 documented as of this encounter Plan of Treatment Upcoming Encounters Date Type Department Care Team (Latest Contact Info) Description 08/02/2023 8:50 AM BALLISTICS TESTER Appointment Department of Laboratory Medicine in [address] [phone] Stefan Salomon M.D. [address] [place] [phone] 08/02/2023 9:30 AM BALLISTICS TESTER Anticoagulation Visit Department of Anticoagulation in [place], [place] [address] [place] [phone] Stefan Salomon M.D. [address] [place] [phone] 09/24/2023 10:15 AM CDT Clinical Communication Virtual Review in [place], [place] 200 [place] [address] 09/25/2023 9:40 AM CDT Office Visit Department of Dermatology in [place], [place] [address] [place] [phone] Kira Hannah, LEAD SECURITY OFFICER, C.N.P., M.S.N. [address] [place] [phone] Jordan Riojas M.D. [address] [place] [phone] documented as of this encounter Procedures Procedure [...] POCT, B 2.0 03/14/2023 7:51 AM CDT CNTX Comment: ----ADDITIONAL INFORMATION---- Standard intensity warfarin therapeutic range: 2.0 to 3.0 ?? High intensity warfarin therapeutic range: 2.5 to 3.5 Blood (Blood, Capillary) 03/14/2023 7:51 AM CDT 03/14/2023 7:51 AM CDT Stefan Salomon M.D. LAB POCT ORDERABLES - DEVICE [facility] [address] [place] [address], [facility] [address] [address] documented in this encounter Visit Diagnoses Diagnosis Anticoagulant Therapy [Z79.01] Mutation Factor V Leiden Heterozygous (HCC) Monitoring For Therapeutic Drug Therapy [Z51.81] Thrombosis Deep Vein Personal History documented in this encounter Additional Health Concerns Assessment Noted Time PHQ-9 Depression Total Score: 0 07/09/19 23 8:29 AM BALLISTICS TESTER documented as of this encounter Care Teams Senior Housekeeper Relationship Specialty Start Date End Date Stefan Salomon M.D. [address] [place] [phone] PCP - General Family Medicine 07/09/22 Anticoagulation Team 07/09/22 documented as of this encounter
--- OUTSIDE RECORDS SUMMARY | 2023-07-09 07:55 | XMS_ITS | Encounter Summary ---
Author Name Unknown Organization [facility] Address [address] [place] [address] Care Team Providers Care Psychological Examiner Name Role Phone Stefan Salomon M.D. Primary Care Provider [phone] Encounter Details Date Type Department Care Team (Latest Contact Info) Description 04/19/2023 7:20 AM COMPACT ASSEMBLER - 04/19/2023 7:32 AM COMPACT ASSEMBLER Hospital Encounter Department of Laboratory Medicine in [address] [phone] Stefan Salomon M.D. [address] [place] [phone] Hypertension Essential Primary; Hyperlipidemia Discharge Disposition: Home [...] week 07/09/2022 How often do you attend jainism or nondenominational serv ices? Never 07/09/2022 Do you belong to any clubs o r organizations such as jainism groups, unions, fraternal or athletic groups, or [...] Score 0 07/09/2022 [facility] - Occupational Stress Questionnaire [...] file Gender Identity Male 07/02/2017 9:12 AM COMPACT ASSEMBLER Sexual Orientation Straight 07/02/2017 9: 12 AM COMPACT ASSEMBLER documented as of this encounter Medications at [...] Pain/Nonacute Pain. 240 tablet 0 04/03/2023 05/02/2023 zolpidem (AMBIEN) 5 mg tablet TAKE ONE TABLET BY MOUTH AT BEDTIME NEEDED FOR SLEEP 30 tablet 0 09/13/2022 06/12/2023 documented as of this encounter Plan of Treatment Upcoming Encounters Date Type Department Care Team (Latest Contact Info) Description 08/02/2023 8:50 AM COMPACT ASSEMBLER Appointment Department of Laboratory Medicine in [address] [phone] Stefan Salomon M.D. [address] [place] [phone] 08/02/2023 9:30 AM COMPACT ASSEMBLER Anticoagulation Visit Department of Anticoagulation in [address] [phone] Stefan Salomon M.D. [address] [place] [phone] 09/24/2023 10:15 AM CDT Clinical Communication Virtual Review in [place], [place] [address] [place] [address] 09/25/2023 9:40 AM CDT Office Visit Department of Dermatology in [place], [place] [address] [place] [phone] iKra Hannah, HECTOR, C.N.P., M.S.N. [address] [place] [phone] Jordan Riojas M.D. [address] [place] [phone] documented as of this encounter Procedures Procedure Name Priority Date/Time Associated Diagnosis Comments LIPID PANEL, S Routine 04/19/2023 7:39 AM COMPACT ASSEMBLER Hyperlipidemia BASIC METABOLIC PANEL, S/P Routine 04/19/2023 7:39 AM COMPACT ASSEMBLER Hypertension Essential Primary documented in this encounter Results * Lipid Panel (04/19/2023 7:39 AM COMPACT ASSEMBLER) Triglycerides 113 mg/dL 04/19/2023 11:48 AM COMPACT ASSEMBLER CNFL Comment: ----REFERENCE VALUE---- Normal: <150 mg/dL Borderline High: 150-199 mg/dL High: 200-499 mg/dL Very High: > or =500 mg/dL Cholesterol, Total 144 mg/dL 2022 11:48 AM COMPACT ASSEMBLER CNFL Comment: ----REFERENCE VALUE---- Desirable: < 200 mg/dL Borderline High: 200 - 239 mg/dL High: > or = 240 mg/dL Cholesterol, LDL, Calculated 76 mg/dL 04/19/2023 12:10 PM COMPACT ASSEMBLER CNFL Comment: ----REFERENCE VALUE---- Desirable: <100 mg/dL Above Desirable: 100-129 mg/dL Borderline High: 130-159 mg/dL High: 160-189 mg/dL Very High: >=190 mg/dL ----ADDITIONAL INFORMATION---- LDL cholesterol calculated using the Sosa/NIH equation. Cholesterol, HDL 48 >=40 mg/dL 04/19/20 12:10 PM COMPACT ASSEMBLER CNFL Cholesterol, Non-HDL, Calculated 96 mg/dL 04/19/2023 12:10 PM COMPACT ASSEMBLER CNFL Comment: ----REFERENCE VALUE---- Desirable: <130 mg/dL Above Desirable: 130-159 mg/dL Borderline High: 160-189 mg/dL High: 190-219 mg/dL Very High: > or =220 mg/dL Fasting (8 HR or more) No 04/19/2023 7:40 AM COMPACT ASSEMBLER CNFL Blood (Blood, Venous) 04/19/2023 7:39 AM COMPACT ASSEMBLER 04/19/2023 7:40 AM COMPACT ASSEMBLER Stefan Salomon M.D. LAB BLOOD ADD-ON Performing Organization Address City/State/[facility] Co de Phone Number [facility] [address] [place], [place] [id number], [facility] CNFL [facility] in [address] [address] * Basic Metabolic Panel (04/19/2023 7:39 AM COMPACT ASSEMBLER) Potassium, P 4.1 3.6 - 5.2 mmol/L 04/19/2023 11:48 AM COMPACT ASSEMBLER CNFL Sodium, P 138 135 - 145 mmol/L 04/19/2023 11:48 AM COMPACT ASSEMBLER CNFL Chloride, P 102 98 - 107 mmol/L 04/19/2023 11:48 AM COMPACT ASSEMBLER CNFL Bicarbonate, P 23 22 - 29 mmol/L 04/19/2023 11:48 AM COMPACT ASSEMBLER CNFL Anion Gap, P 13 7 - 15 04/19/2023 11:48 AM COMPACT ASSEMBLER CNFL BUN (Blood Urea Nitrogen), P 21 8 - 24 mg/dL 04/19/2023 11:48 AM COMPACT ASSEMBLER CNFL Creatinine 0.87 0.74 - 1.35 mg/dL 04/19/2023 11:48 AM COMPACT ASSEMBLER CNFL Estimated GFR (eGFR) >90 >=60 mL/min/BSA 04/19/2023 11:48 AM COMPACT ASSEMBLER CNFL Comment: Estimated GFR calculated using the 2020 CKD_EPI creatinine equation. Calcium, Total, P 9.1 8.8 - 10.2 mg/dL 04/19/2023 11:48 AM COMPACT ASSEMBLER CNFL Glucose, P 103 70 - 140 mg/dL 04/19/2023 11:48 AM COMPACT ASSEMBLER CNFL Blood (Blood, Venous) 04/19/2023 7:39 AM COMPACT ASSEMBLER 04/19/2023 7:40 AM COMPACT ASSEMBLER Stefan Salomon M.D. LAB BLOOD ADD-ON [facility] [address] [place] [address], [facility] CNFL [facility] in [address] [address] documented in this encounter Visit Diagnoses Diagnosis Hypertension Essential Primary Hyperlipidemia documented in this encounter Additional Health Concerns Assessment Noted Time PHQ-9 Depression Total Score: 0 07/09/19 23 8:29 AM COMPACT ASSEMBLER documented as of this encounter Care Teams Psychological Examiner Relationship Specialty Start Date End Date Stefan Salomon M.D. [address] [place] [phone] PCP - General Family Medicine 07/09/22 Anticoagulation Team 07/09/22 documented as of this encounter
--- OUTSIDE RECORDS SUMMARY | 2023-07-09 07:55 | XMS_ITS | Encounter Summary ---
Author Name Unknown Organization [facility] Address [address] [place] [address] Care Team Providers Care Shift Manager Name Role Phone Stefan Salomon M.D. Primary Care Provider [phone] Reason for Visit * Outpatient (Routine) - Authorized Specialty Diagnoses / Procedures Referred By Contdayana t Referred To Contact Anticoagulation Diagnoses Anticoagulant Therapy Mutation Factor V Leiden Heterozygous (HCC) Monitoring For Therapeutic Drug Therapy Thrombosis Deep Vein Personal History Stefan Salomon M.D. [address] [phone] [facility] Referral ID Status Reason Start Date Expiration Date V isits Requested Visits Authorized [id number] Authorized 02/01/2023 01/31/2026 300 300 Encounter Details Date Type Department Care Team (Latest Contact Info) Description 03/14/2023 9:30 AM CDT Anticoagulation Visit Department of Anticoagulation in [place], [place] [address] [place] [phone] Stefan Salomon M.D. [address] [place] [phone] Anticoagulant Therapy [Z79.01]; Mutation Factor V [...] week 07/09/2022 How often do you attend congregational or zoroastrian serv ices? Never 07/09/2022 Do you belong to any clubs o r organizations such as congregational groups, unions, fraternal or athletic groups, or [...] Answer Date Recorded PHQ-2 Score 0 07/09/2022 [facility] [place] of Occupat ional Health - Occupational Stress [...] file Gender Identity Male 07/02/2017 9:12 AM CHAIN MENDER Sexual Orientation Straight 07/02/2017 9: 12 AM CHAIN MENDER documented as of this encounter Patient Instructions [...] please call Primary Care Anticoagulation Program at [phone] from 7:30 am to 4:30 pm. Saturday-Saturday [...] if you start any herbal or other [id number]-[id number] product (check with your doctor, a nurse, [...] (Latest Contact Info) Description 08/02/2023 8:50 AM CHAIN MENDER Appointment Department of Laboratory Medicine in [address] [phone] Stefan Salomon M.D. [address] [place] [phone] 08/02/2023 9:30 AM CHAIN MENDER Anticoagulation Visit Department of Anticoagulation in [address] [phone] Stefan Salomon M.D. [address] [place] [phone] 09/24/2023 10:15 AM CDT Clinical Communication Virtual Review in [address] [address] 09/25/2023 9:40 AM CDT Office Visit Department of Dermatology in [place], [place] [address] [place] [address] Kira Hannah, HECTOR, C.N.P., M.S.N. [address] [place] [phone] Jordan Riojas M.D. [address] [place] [phone] documented as of this encounter Visit Diagnoses Diagnosis Anticoagulant Therapy [Z79.01] Mutation Factor V Leiden Heterozygous (HCC) Monitoring For Therapeutic Drug Therapy [Z51.81] Thrombosis Deep Vein Personal History documented in this encounter Additional Health Concerns Assessment Noted Time PHQ-9 Depression Total Score: 0 07/09/19 8:29 AM CHAIN MENDER documented as of this encounter Care Teams Shift Manager Relationship Specialty Start Date End Date Stefan Salomon M.D. [address] [place] [phone] PCP - General Family Medicine 07/09/22 Anticoagulation Team 07/09/22 documented as of this encounter
--- OUTSIDE RECORDS SUMMARY | 2023-07-09 07:55 | XMS_ITS | Encounter Summary ---
Author Name Unknown Organization [facility] Address [address] [place] [address] Care Team Providers Care House Moving Supervisor Name Role Phone Stefan Salomon M.D. Primary Care Provider [phone] Encounter Details Date Type Department Care Team (Latest Contact Info) Description 04/19/2023 9:02 AM VARYING EXCEPTIONALITIES TEACHER - 04/19/2023 11:59 PM [facility] Hospital Encounter Department of Laboratory Medicine in [address] [phone] Stefan Salomon M.D. [address] [place] [phone] Discharge Disposition: Home or Self Care Social [...] week 07/09/2022 How often do you attend scientologist or sikhism serv ices? Never 07/09/2022 Do you belong to any clubs o r organizations such as scientologist groups, unions, fraternal or athletic groups, or [...] Answer Date Recorded PHQ-2 Score 0 07/09/2022 [facility] of Occupat ional Health - [...] place to sleep or slept in a chcf (including now)? No 07/09/2022 Depression Answer Date [...] file Gender Identity Male 07/02/2017 9:12 AM VARYING EXCEPTIONALITIES TEACHER Sexual Orientation Straight 07/02/2017 9: 12 AM VARYING EXCEPTIONALITIES TEACHER documented as of this encounter Medications at [...] (Latest Contact Info) Description 08/02/2023 8:50 AM VARYING EXCEPTIONALITIES TEACHER Appointment Department of Laboratory Medicine in [address] [phone] Stefan Salomon M.D. [address] [place] [phone] 08/02/2023 9:30 AM VARYING EXCEPTIONALITIES TEACHER Anticoagulation Visit Department of Anticoagulation in [address] [phone] Stefan Salomon M.D. [address] [place] [address] [place] [phone] 09/24/2023 10:15 AM CDT Clinical Communication Virtual Review in [place], [place] 200 [place] [address] 09/25/2023 9:40 AM CDT Office Visit Department of Dermatology in [place], [place] [address] [place] [phone] Kira Hannah, HECTOR, C.N.P., M.S.N. [address] [place] [phone] Jordan Riojas M.D. [address] [place] [phone] documented as of this encounter Procedures Procedure Name Priority Date/Time Associated Diagnosis Comments INR REFLEX, POCT, B Routine 04/19/2023 7 :38 AM VARYING EXCEPTIONALITIES TEACHER documented in this encounter Results * INR Reflex, POCT, Blood (04/19/2023 7:38 AM VARYING EXCEPTIONALITIES TEACHER) INR Reflex, POCT, B 2.1 04/19/2023 7:38 AM VARYING EXCEPTIONALITIES TEACHER CNFL Comment: ----ADDITIONAL INFORMATION---- Standard intensity warfarin therapeutic range: 2.0 to 3.0 ?? High intensity warfarin therapeutic range: 2.5 to 3.5 Blood 04/19/2023 7:38 AM VARYING EXCEPTIONALITIES TEACHER 04/19/2023 7:40 AM VARYING EXCEPTIONALITIES TEACHER Stefan Salomon M.D. LAB POCT ORDERABLES - DEVICE [facility] [address] [place] [address], [facility] CNFL [facility] in [address] [address] documented in this encounter Visit Diagnoses Not on filedocumented in this encounter Additional Health Concerns Assessment Noted Time PHQ-9 Depression Total Score: 0 07/09/19 23 8:29 AM VARYING EXCEPTIONALITIES TEACHER documented as of this encounter Care Teams House Moving Supervisor Relationship Specialty Start Date End Date Stefan Salomon M.D. [address] [place] [phone] PCP - General Family Medicine 07/09/22 Anticoagulation Team 07/09/22 documented as of this encounter
--- OUTSIDE RECORDS SUMMARY | 2023-07-09 07:55 | XMS_ITS | Encounter Summary ---
Author Name Unknown Organization [facility] Address [address] [place] [address] Care Team Providers Care Dairy Chemist Name Role Phone Stefan Salomon M.D. Primary Care Provider [phone] Reason for Visit * Reason Comments Med Refill Encounter Details Date Type Department Care Team (Late st Contact Info) Description 03/20/2023 Refill Department of Family Medicine, [facility], in [place], [place] [address] [place] [phone] Yue Alonso M.D. [address] [place] [phone] Med Refill Social History Tobacco Use Types [...] week 07/09/2022 How often do you attend hindu or congregational serv ices? Never 07/09/2022 Do you belong to any clubs o r organizations such as hindu groups, unions, fraternal or athletic groups, or [...] place to sleep or slept in a residential (including now)? No 07/09/2022 Depression Answer Date [...] file Gender Identity Male 07/02/2017 9:12 AM OFFICE 365 CONSULTANT Sexual Orientation Straight 07/02/2017 9: 12 AM OFFICE 365 CONSULTANT documented as of this encounter Plan of Treatment Upcoming Encounters Date Type Department Care Team (Latest Contact Info) Description 08/02/2023 8:50 AM OFFICE 365 CONSULTANT Appointment Department of Laboratory Medicine in [address] [phone] Stefan Salomon M.D. [address] [place] [phone] 08/02/2023 9:30 AM OFFICE 365 CONSULTANT Anticoagulation Visit Department of Anticoagulation in [place], [place] [address] [place] [phone] Stefan Salomon M.D. [address] [place] [phone] 09/24/2023 10:15 AM CDT Clinical Communication Virtual Review in [place], [place] 200 [place] [address] 09/25/2023 9:40 AM CDT Office Visit Department of Dermatology in [place], [place] [address] [place] [phone] Kira Hannah, HECTOR, C.N.P., M.S.N. [address] [place] [phone] Jordan Riojas M.D. [address] [place] [phone] documented as of this encounter Visit Diagnoses Not on filedocumented in this encounter Additional Health Concerns Assessment Noted Time PHQ-9 Depression Total Score: 0 07/09/19 23 8:29 AM OFFICE 365 CONSULTANT documented as of this encounter Care Teams Dairy Chemist Relationship Specialty Start Date End Date Stefan Salomon M.D. [address] [place] [phone] PCP - General Family Medicine 07/09/22 Anticoagulation Team 07/09/22 documented as of this encounter
--- OUTSIDE RECORDS SUMMARY | 2023-07-09 07:55 | XMS_ITS | Encounter Summary ---
Author Name Unknown Organization [facility] Address [address] [place] [address] Care Team Providers Care Agent Name Role Phone Stefan Salomon M.D. Primary Care Provider [phone] Reason for Visit * Reason Comments Med Refill Encounter Details Date Type Department Care Team (Late st Contact Info) Description 04/02/2023 Refill Department of Family Medicine, [facility] [place], in [address] [phone] Stefan Salomon M.D. [address] [place] [phone] Med Refill Social History Tobacco Use Types [...] How often do you attend protestant or jew serv ices? Never 07/09/2022 Do [...] Answer Date Recorded PHQ-2 Score 0 07/09/2022 [facility] of Occupat ional Health - [...] file Gender Identity Male 07/02/2017 9:12 AM BIAZZI NITRATOR OPERATOR Sexual Orientation Straight 07/02/2017 9: 12 AM BIAZZI NITRATOR OPERATOR documented as of this encounter Miscellaneous [...] (Latest Contact Info) Description 08/02/2023 8:50 AM BIAZZI NITRATOR OPERATOR Appointment Department of Laboratory Medicine in [address] [phone] Stefan Salomon M.D. [address] [place] [phone] 08/02/2023 9:30 AM BIAZZI NITRATOR OPERATOR Anticoagulation Visit Department of Anticoagulation in [address] [phone] Stefan Salomon M.D. [address] [place] [phone] 09/24/2023 10:15 AM CDT Clinical Communication Virtual Review in [place], [place] 200 [place] [address] 09/25/2023 9:40 AM CDT Office Visit Department of Dermatology in [place], [place] [address] [place] [phone] Kira Hannah APRN, C.N.P., M.S.N. [address] [place] [phone] Jordan Riojas M.D. [address] [place] [phone] documented as of this encounter Visit Diagnoses Diagnosis Chronic Pain Syndrome Degeneration Disc Cervical Polyarthralgia documented in this encounter Additional Health Concerns Assessment Noted Time PHQ-9 Depression Total Score: 0 07/09/19 8:29 AM BIAZZI NITRATOR OPERATOR documented as of this encounter Care Teams Agent Relationship Specialty Start Date End Date Stefan Salomon M.D. [address] [phone] PCP - General Family Medicine 07/09/22 Anticoagulation Team 07/09/22 documented as of this encounter
--- OUTSIDE RECORDS SUMMARY | 2023-07-09 07:55 | XMS_ITS | Encounter Summary ---
Author Name Unknown Organization [facility] Address [address] [place] [address] Care Team Providers Care It Programmer Analyst Name Role Phone Stefan Salomon M.D. Primary Care Provider [phone] Reason for Visit * Reason Comments Med Refill Encounter Details Date Type Department Care Team (Late st Contact Info) Description 02/26/2023 Refill Department of Family Medicine, [facility], in [address] [phone] Erin Humphrey M.D. [address] [place] [phone] Med Refill Social History Tobacco Use Types [...] How often do you attend confucianism or restoration serv ices? Never 07/09/2022 Do you belong [...] file Gender Identity Male 07/02/2017 9:12 AM FOOD AND DRUG INSPECTOR Sexual Orientation Straight 07/02/2017 9: 12 AM FOOD AND DRUG INSPECTOR documented as of this encounter Plan of Treatment Upcoming Encounters Date Type Department Care Team (Latest Contact Info) Description 08/02/2023 8:50 AM FOOD AND DRUG INSPECTOR Appointment Department of Laboratory Medicine in [address] [phone] Stefan Salomon M.D. [address] [place] [phone] 08/02/2023 9:30 AM FOOD AND DRUG INSPECTOR Anticoagulation Visit Department of Anticoagulation in [place], [place] [address] [place] [phone] Stefan Salomon M.D. [address] [place] [phone] 09/24/2023 10:15 AM CDT Clinical Communication Virtual Review in [place], [place] 200 [place] [address] 09/25/2023 9:40 AM CDT Office Visit Department of Dermatology in [place], [place] [address] [place] [phone] Kira Hannah, HECTOR, C.N.P., M.S.N. [address] [place] [phone] Jordan Riojas M.D. [address] [place] [phone] documented as of this encounter Visit Diagnoses Diagnosis Chronic Pain Syndrome Degeneration Disc Cervical Polyarthralgia documented in this encounter Additional Health Concerns Assessment Noted Time PHQ-9 Depression Total Score: 0 07/09/19 23 8:29 AM FOOD AND DRUG INSPECTOR documented as of this encounter Care Teams It Programmer Analyst Relationship Specialty Start Date End Date Stefan Salomon M.D. [address] [place] [phone] PCP - General Family Medicine 07/09/22 Anticoagulation Team 07/09/22 documented as of this encounter
--- OUTSIDE RECORDS SUMMARY | 2023-07-09 07:55 | XMS_ITS | Encounter Summary ---
Author Name Unknown Organization [facility] Address [address] [place] [address] Care Team Providers Care Brazing Machine Operator Helper Name Role Phone Stefan Salomon M.D. Primary Care Provider [phone] Reason for Visit * Reason Comments Med Refill Encounter Details Date Type Department Care Team (Late st Contact Info) Description 05/01/2023 Refill Department of Family Medicine, [facility], in [address] [phone] Stefan Salomon M.D. [address] [place] [phone] Med Refill Social History Tobacco Use Types [...] week 07/09/2022 How often do you attend restorationist or restorationism serv ices? Never 07/09/2022 Do you belong to any clubs o r organizations such as restorationist groups, unions, fraternal or athletic groups, or [...] Answer Date Recorded PHQ-2 Score 0 07/09/2022 [facility] of Occupat ional Health - Occupational Stress [...] file Gender Identity Male 07/02/2017 9:12 AM BUYER AGENT Sexual Orientation Straight 07/02/2017 9: 12 AM BUYER AGENT documented as of this encounter Miscellaneous Notes * Telephone Encounter - Rachel Llamas L.P.N. - 05/02/2023 11:47 AM BUYER AGENT Controlled substance renewal for Tramadol 50 mg: [...] renewal may be on or after 06/02/23 R AGENT * Telephone Encounter - Caity Gavin - 05/01/2023 7:59 AM CST Images from the original note were not included. Nurse review: Unable to forward request to provider; Controlled Substance, CSA Primary Provider: Stefan Salomon M.D. R AGENT documented in this encounter Plan of Treatment Upcoming Encounters Date Type Department Care Team (Latest Contact Info) Description 08/02/2023 8:50 AM BUYER AGENT Appointment Department of Laboratory Medicine in [address] [phone] Stefan Salomon M.D. [address] [place] [phone] 08/02/2023 9:30 AM BUYER AGENT Anticoagulation Visit Department of Anticoagulation in [place], [place] [address] [place] [phone] Stfean Salomon M.D. [address] [place] [phone] 09/24/2023 10:15 AM CDT Clinical Communication Virtual Review in [place], [place] [address] [place] [address] 09/25/2023 9:40 AM CDT Office Visit Department of Dermatology in [place], [place] [address] [place] [phone] Kira Hannah, HECTOR, C.N.P., M.S.N. [address] [place] [phone] Jordan Riojas M.D. [address] [place] [phone] documented as of this encounter Visit Diagnoses Diagnosis Chronic Pain Syndrome Degeneration Disc Cervical Polyarthralgia documented in this encounter Additional Health Concerns Assessment Noted Time PHQ-9 Depression Total Score: 0 07/09/19 23 8:29 AM BUYER AGENT documented as of this encounter Care Teams Brazing Machine Operator Helper Relationship Specialty Start Date End Date Stefan Salomon M.D. [address] [phone] PCP - General Family Medicine 07/09/22 Anticoagulation Team 07/09/22 documented as of this encounter
--- OUTSIDE RECORDS SUMMARY | 2023-07-09 07:55 | XMS_ITS | Encounter Summary ---
Author Name Unknown Organization [facility] Address [address] [place] [address] Care Team Providers Care It Infrastructure Manager Name Role Phone Stefan Salomon M.D. Primary Care Provider [phone] Encounter Details Date Type Department Care Team (Latest Contact Info) Description 04/19/2023 7:33 AM QUALITY IMPROVEMENT ENGINEER - 04/19/2023 9:01 AM [facility] Hospital Encounter Department of Laboratory Medicine and Pathology, [facility], in [place], [place] [address] [place] [address] Stefan Salomon M.D. [address] [place] [address] [phone] Anticoagulant Therapy [Z79.01]; Mutation Factor V Leiden [...] week 07/09/2022 How often do you attend voodoo or sikh serv ices? Never 07/09/2022 Do you belong to any clubs o r organizations such as voodoo groups, unions, fraternal or athletic groups, or [...] file Gender Identity Male 07/02/2017 9:12 AM QUALITY IMPROVEMENT ENGINEER Sexual Orientation Straight 07/02/2017 9: 12 AM QUALITY IMPROVEMENT ENGINEER documented as of this encounter Medications [...] (Latest Contact Info) Description 08/02/2023 8:50 AM QUALITY IMPROVEMENT ENGINEER Appointment Department of Laboratory Medicine in [address] [phone] Stefan Salomon M.D. [address] [place] [address] [phone] 08/02/2023 9:30 AM QUALITY IMPROVEMENT ENGINEER Anticoagulation Visit Department of Anticoagulation in [place], [place] [address] [place] [phone] Stefan Salomon M.D. [address] [place] [address] [phone] 09/24/2023 10:15 AM CDT Clinical Communication Virtual Review in [place], [place] 200 [place] [address] 09/25/2023 9:40 AM CDT Office Visit Department of Dermatology in [place], [place] [address] [place] [phone] Kira Hannah, HECTOR, C.N.P., M.S.N. [address] [place] [phone] Jordan Riojas M.D. [address] [place] [phone] documented as of this encounter Visit Diagnoses Diagnosis Anticoagulant Therapy [Z79.01] Mutation Factor V Leiden Heterozygous (HCC) Monitoring For Therapeutic Drug Therapy [Z51.81] Thrombosis Deep Vein Personal History documented in this encounter Additional Health Concerns Assessment Noted Time PHQ-9 Depression Total Score: 0 07/09/19 23 8:29 AM QUALITY IMPROVEMENT ENGINEER documented as of this encounter Care Teams It Infrastructure Manager Relationship Specialty Start Date End Date Stefan Salomon M.D. [address] [place] [address] [phone] PCP - General Family Medicine 07/09/22 Anticoagulation Team 07/09/22 documented as of this encounter
--- OUTSIDE RECORDS SUMMARY | 2023-07-09 07:55 | XMS_ITS | Encounter Summary ---
Author Name Unknown Organization [facility] Address [address] [place] [address] Care Team Providers Care Clearance Coordinator Name Role Phone Stefan Salomon M.D. Primary Care Provider [phone] Reason for Visit * Outpatient (Routine) - Authorized Specialty Diagnoses / Procedures Referred By Piero t Referred To Contact Anticoagulation Diagnoses Anticoagulant Therapy Mutation Factor V Leiden Heterozygous (HCC) Monitoring For Therapeutic Drug Therapy Thrombosis Deep Vein Personal History Stefan Salomon M.D. [address] [phone] [facility] Referral ID Status Reason Start Date Expiration Date V isits Requested Visits Authorized [id number] Authorized 02/01/2023 01/31/2026 300 300 Encounter Details Date Type Department Care Team (Latest Contact Info) Description 05/17/2023 10:00 AM PROPERTY DISPOSAL OFFICER Anticoagulation Visit Department of Anticoagulation in [place], [place] [address] [place] [address] Stefan Salomon M.D. [address] [place] [phone] Anticoagulant Therapy [Z79.01] (Primary Dx); Mutation Factor V Leiden Heterozygous (HCC); Monitoring For Therapeutic Drug Therapy [Z51.81]; Thrombosis Deep Vein Personal History; Hypertension Essential Primary; Hyperlipidemia; Usp (Current) Anticoagulant Treatment Social History Tobacco Use [...] How often do you attend anabaptism or confucianism serv ices? Never 07/09/2022 Do [...] PHQ-2 Score 0 07/09/2022 [facility] [place] of Occupat ional Health - Occupational Stress [...] file Gender Identity Male 07/02/2017 9:12 AM PROPERTY DISPOSAL OFFICER Sexual Orientation Straight 07/02/2017 9: 12 AM PROPERTY DISPOSAL OFFICER documented as of this encounter Patient Instructions * Patient Instructions* Brittany Wolf R.N. - 05/17/2023 10:00 AM PROPERTY DISPOSAL OFFICER Your next INR will be 06/28/2023. You will need to call the Anticoagulation Program for warfarin dosing at the scheduled time for your nurse visit, as indicated on your Patient Appointment Guide (PAG). To reschedule your appointment or for questions about your warfarin, please call Primary Care Anticoagulation Program at [phone] from 7:30 am to 4:30 pm. Saturday-Saturday [...] if you start any herbal or other mxpx-pwr-qnzndzf product (check with your doctor, a nurse, or pharmacist). If you change your diet significantly. If you decide to stop or start using tobacco or alcohol. If you notice unusual bruising or bleeding. If you notice dark, tarry, or bright red stools or blood in your urine. If you have a painful and swollen calf. ERTY DISPOSAL OFFICER documented in this encounter Progress Notes * [...] time. Total time spent with patient: N/A ERTY DISPOSAL OFFICER documented in this encounter Plan of Treatment Upcoming Encounters Date Type Department Care Team (Latest Contact Info) Description 08/02/2023 8:50 AM PROPERTY DISPOSAL OFFICER Appointment Department of Laboratory Medicine in [address] [phone] Stefan Salomon M.D. [address] [place] [address] [phone] 08/02/2023 9:30 AM PROPERTY DISPOSAL OFFICER Anticoagulation Visit Department of Anticoagulation in [place], [place] [address] [place] [phone] Stefan Salomon M.D. [address] [place] [address] [phone] 09/24/2023 10:15 AM CDT Clinical Communication Virtual Review in [place], [place] 200 [place] [address] 09/25/2023 9:40 AM CDT Office Visit Department of Dermatology in [place], [place] [address] [place] [phone] Kira Hannah, HECTOR, C.N.P., M.S.N. [address] [place] [phone] Jordan Riojas M.D. [address] [place] [phone] documented as of this encounter Results * INR Reflex, POCT, Blood (06/04/2023 1:50 PM PROPERTY DISPOSAL OFFICER) INR Reflex, POCT, B 2.0 06/04/2023 1:50 PM PROPERTY DISPOSAL OFFICER CNFL Comment: ----ADDITIONAL INFORMATION---- Standard intensity warfarin therapeutic range: 2.0 to 3.0 ?? High intensity warfarin therapeutic range: 2.5 to 3.5 Blood (Blood, Capillary) 06/04/2023 1:50 PM PROPERTY DISPOSAL OFFICER 06/04/2023 1:50 PM PROPERTY DISPOSAL OFFICER Stefan Salomon M.D. 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 [address] [place] [phone] PCP - General Family Medicine 07/09/22 Anticoagulation Team 07/09/22 documented as of this encounter
--- OUTSIDE RECORDS SUMMARY | 2023-07-09 07:55 | XMS_ITS | Encounter Summary ---
Author Name Unknown Organization [facility] Address [address] [place] [address] Care Team Providers Care Macaroni Maker Name Role Phone Stefan Salomon M.D. Primary Care Provider [phone] Reason for Visit * Outpatient (Routine) - Closed Specialty Diagnoses / Procedures Referred By Contac t Referred To Contact Anticoagulation Stefan Salomon M.D. [address] [place] [phone] [facility] Referral ID Status Reason Start Date Expiration Date Visits Re quested Visits Authorized [id number] Closed 04/19/2023 04/18/2026 1 1 Encounter Details Date Type Department Care Team (Latest Contact Info) Description 04/22/2023 8:00 AM INSPECTOR SUBASSEMBLIES Anticoagulation Visit Department of Anticoagulation in [place], [place] [address] [place] [address] Stefan Salomon M.D. [address] [place] [phone] Anticoagulant Therapy [Z79.01] (Primary Dx); Mutation [...] How often do you attend sikh or church serv ices? Never 07/09/2022 Do [...] Answer Date Recorded PHQ-2 Score 0 07/09/2022 [facility] [place] of Occupat ional Health - Occupational Stress [...] file Gender Identity Male 07/02/2017 9:12 AM INSPECTOR SUBASSEMBLIES Sexual Orientation Straight 07/02/2017 9: 12 AM INSPECTOR SUBASSEMBLIES documented as of this encounter Patient Instructions * Patient Instructions* Christen Alexander R.N. - 04/22/2023 8:00 AM INSPECTOR SUBASSEMBLIES Your next INR will be 05/17/23. You will need to call the Anticoagulation Program for warfarin dosing at the scheduled time for your nurse visit, as indicated on your Patient Appointment Guide (PAG). To reschedule your appointment or for questions about your warfarin, please call Primary Care Anticoagulation Program at [phone] from 7:30 am to 4:30 pm. Saturday-Saturday [...] if you start any herbal or other ccok-zso-ddmikmx product (check with your doctor, a nurse, or pharmacist). If you change your diet significantly. If you decide to stop or start using tobacco or alcohol. If you notice unusual bruising or bleeding. If you notice dark, tarry, or bright red stools or blood in your urine. If you have a painful and swollen calf. ECTOR SUBASSEMBLIES documented in this encounter Progress Notes * [...] indicated above stating consult required. Consulted Anticoagulation [facility] for plan. Currently bridging: no. INR is therapeutic/supratherapeutic. Additional dosing or follow-up information: Provider consulted: Verenice Zamora- Anticoagulation [facility] Pt is on injectable anticoagulant: No. Plan used: Consult. See Anticoagulation Track Calendar for dosing and plan details. Anticoagulation Visit Summary: Patient repeats back dosing instructions, date of next INR, and has no further questions at this time. Total time spent with patient: 14 minutes ECTOR SUBASSEMBLIES documented in this encounter Plan of Treatment Upcoming Encounters Date Type Department Care Team (Latest Contact Info) Description 08/02/2023 8:50 AM INSPECTOR SUBASSEMBLIES Appointment Department of Laboratory Medicine in [address] [phone] Stefan Salomon M.D. [address] [place] [address] [phone] 08/02/2023 9:30 AM INSPECTOR SUBASSEMBLIES Anticoagulation Visit Department of Anticoagulation in [place], [place] [address] [place] [phone] Stefan Salomon M.D. [address] [place] [phone] 09/24/2023 10:15 AM CDT Clinical Communication Virtual Review in [place], [place] 200 [place] [address] 09/25/2023 9:40 AM CDT Office Visit Department of Dermatology in [place], [place] [facility] [address] [place] [phone] Kira Hannah, HECTOR, C.N.P., M.S.N. [address] [place] [phone] Jordan Riojas M.D. [address] [place] [phone] documented as of this encounter Results * INR Reflex, POCT, Blood (05/17/2023 7:29 AM INSPECTOR SUBASSEMBLIES) INR Reflex, POCT, B 2.1 05/17/2023 7:29 AM INSPECTOR SUBASSEMBLIES CNFL Comment: ----ADDITIONAL INFORMATION---- Standard intensity warfarin therapeutic range: 2.0 to 3.0 ?? High intensity warfarin therapeutic range: 2.5 to 3.5 Blood (Blood, Capillary) 05/17/2023 7:29 AM INSPECTOR SUBASSEMBLIES 05/17/2023 7:29 AM INSPECTOR SUBASSEMBLIES Stefan Salomon M.D. LAB POCT ORDERABLES - DEVICE [facility] [address] [place] [phone], [facility] CNFL [facility] in [address] [address] documented in this encounter Visit Diagnoses Diagnosis Anticoagulant Therapy [Z79.01]- Primary Mutation Factor V Leiden Heterozygous (HCC) Monitoring For Therapeutic Drug Therapy [Z51.81] Thrombosis Deep Vein Personal History documented in this encounter Additional Health Concerns Assessment Noted Time PHQ-9 Depression Total Score: 0 07/09/19 23 8:29 AM INSPECTOR SUBASSEMBLIES documented as of this encounter Care Teams Macaroni Maker Relationship Specialty Start Date End Date Stefan Salomon M.D. [address] [place] [phone] PCP - General Family Medicine 07/09/22 Anticoagulation Team 07/09/22 documented as of this encounter
--- OUTSIDE RECORDS SUMMARY | 2023-07-09 07:55 | XMS_ITS | Encounter Summary ---
Author Name Unknown Organization [facility] Address [address] [place] [address] Care Team Providers Care Slicing Machine Operator/Tender Name Role Phone Stefan Salomon M.D. Primary Care Provider [phone] Reason for Referral * Outpatient (Routine) - Closed Specialty Diagnoses / Procedures Referred By Contdayana t Referred To Contact Anticoagulation Stefan Salomon M.D. [address] [place] [phone] [facility] Referral ID Status Reason Start Date Expiration Date Visits Re quested Visits Authorized [id number] Closed 04/19/2023 04/18/2026 1 1 Scheduling Instructions unable to reach 04/19 RIDER Reason for Visit * Reason Onset Date Comments Anticoagulation 04/19/2023 Unable to reach 04/19/23 Encounter Details Date Type Department Care Team (Latest Contact Info) Description 04/19/2023 Clinical Communication Department of Anticoagulation in [place], [place] [address] [place] [address] Pippa Morales, RCotyNCoty [address] [place] [phone] Anticoagulation (Unable to reach 04/19/23) Social History [...] How often do you attend temple or taoist serv ices? Never 07/09/2022 Do [...] Answer Date Recorded PHQ-2 Score 0 07/09/2022 [facility] [place] of Occupat ional Health - Occupational Stress [...] file Gender Identity Male 07/02/2017 9:12 AM LEAD RIDER Sexual Orientation Straight 07/02/2017 9: 12 AM LEAD RIDER documented as of this encounter Miscellaneous Notes * Telephone Encounter - Pippa oMrales R.N. - 04/19/2023 4:38 PM LEAD RIDER Patient contacted today by staff as they have not contacted the anticoagulation program following INR test. INR No communication outcome: Unable to reach. First Attempt. RIDER documented in this encounter Plan of Treatment Upcoming Encounters Date Type Department Care Team (Latest Contact Info) Description 08/02/2023 8:50 AM LEAD RIDER Appointment Department of Laboratory Medicine in [address] [phone] Stefan Salomon M.D. [address] [place] [phone] 08/02/2023 9:30 AM LEAD RIDER Anticoagulation Visit Department of Anticoagulation in [address] [phone] Stefan Salomon M.D. [address] [place] [phone] 09/24/2023 10:15 AM CDT Clinical Communication Virtual Review in [place], [place] 200 [place] [address] 09/25/2023 9:40 AM CDT Office Visit Department of Dermatology in [place], [place] [address] [place] [phone] Kira Hannah, HECTOR, C.N.P., M.S.N. [address] [place] [phone] Jordan Riojas M.D. [address] [place] [phone] Scheduled Referrals Name Type Priority Associated Diagnoses Order Schedule Anticoagulation nurse visit (clinic) Outpatient Referral Routine Expected: 04/22/2023, Expires: 07/20/2024 documented as of this encounter Visit Diagnoses Not on filedocumented in this encounter Additional Health Concerns Assessment Noted Time PHQ-9 Depression Total Score: 0 07/09/19 23 8:29 AM LEAD RIDER documented as of this encounter Care Teams Slicing Machine Operator/Tender Relationship Specialty Start Date End Date Stefan Salomon M.D. [address] [place] [phone] PCP - General Family Medicine 07/09/22 Anticoagulation Team 07/09/22 documented as of this encounter
--- OUTSIDE RECORDS SUMMARY | 2023-07-09 07:55 | XMS_ITS | Encounter Summary ---
Author Name Unknown Organization [facility] Address [address] [place] [address] Care Team Providers Care Head Men'S Golf Coach Name Role Phone Stefan Salomon M.D. Primary Care Provider [phone] Reason for Visit * Outpatient (Routine) - Authorized Specialty Diagnoses / Procedures Referred By Contdayana t Referred To Contact Anticoagulation Diagnoses Anticoagulant Therapy Mutation Factor V Leiden Heterozygous (HCC) Monitoring For Therapeutic Drug Therapy Thrombosis Deep Vein Personal History Stefan Salomon M.D. [address] [phone] [facility] Referral ID Status Reason Start Date Expiration Date V isits Requested Visits Authorized [id number] Authorized 02/01/2023 01/31/2026 300 300 Encounter Details Date Type Department Care Team (Latest Contact Info) Description 04/19/2023 9:00 AM BAR MANAGER Anticoagulation Visit Department of Anticoagulation in [place], [place] [address] [place] [address] Stefan Salomon M.D. [address] [place] [phone] Anticoagulant Therapy [Z79.01]; Mutation Factor V [...] How often do you attend moravian or judaism serv ices? Never 07/09/2022 Do [...] Answer Date Recorded PHQ-2 Score 0 07/09/2022 [facility] [place] of Occupat ional Health - Occupational Stress [...] file Gender Identity Male 07/02/2017 9:12 AM BAR MANAGER Sexual Orientation Straight 07/02/2017 9: 12 AM BAR MANAGER documented as of this encounter Plan of Treatment Upcoming Encounters Date Type Department Care Team (Latest Contact Info) Description 08/02/2023 8:50 AM BAR MANAGER Appointment Department of Laboratory Medicine in [address] [phone] Stefan Salomon M.D. [address] [place] [address] [phone] 08/02/2023 9:30 AM BAR MANAGER Anticoagulation Visit Department of Anticoagulation in [address] [phone] Stefan Salomon M.D. [address] [place] [phone] 09/24/2023 10:15 AM CDT Clinical Communication Virtual Review in [place], [place] 200 [place] [address] 09/25/2023 9:40 AM CDT Office Visit Department of Dermatology in [place], [place] [address] [place] [phone] Kira Hannah, HECTOR, C.N.P., M.S.N. [address] [place] [phone] Jordan Riojas M.D. [address] [place] [phone] documented as of this encounter Visit Diagnoses Diagnosis Anticoagulant Therapy [Z79.01] Mutation Factor V Leiden Heterozygous (HCC) Monitoring For Therapeutic Drug Therapy [Z51.81] Thrombosis Deep Vein Personal History documented in this encounter Additional Health Concerns Assessment Noted Time PHQ-9 Depression Total Score: 0 07/09/19 23 8:29 AM BAR MANAGER documented as of this encounter Care Teams Head Men'S Golf Coach Relationship Specialty Start Date End Date Stefan Salomon M.D. [address] [phone] PCP - General Family Medicine 07/09/22 Anticoagulation Team 07/09/22 documented as of this encounter
--- OUTSIDE RECORDS SUMMARY | 2023-07-09 07:56 | XMS_ITS | Encounter Summary ---
Author Name Unknown Organization [facility] Address [address] [place] [address] Care Team Providers Care Machine Molder Squeeze Name Role Phone Stefan Salomon M.D. Primary Care Provider [phone] Encounter Details Date Type Department Care Team (Latest Contact Info) Description 01/04/2023 7:32 AM CDT - 01/04/2023 11:59 PM CDT Hospital Encounter Department of Laboratory Medicine in [address] [phone] Stefan Salomon M.D. [address] [place] [address] [phone] Anticoagulant Therapy; Mutation Factor V Leiden Heterozygous [...] week 07/09/2022 How often do you attend anabaptist or shinto serv ices? Never 07/09/2022 Do you belong to any clubs o r organizations such as anabaptist groups, unions, fraternal or athletic groups, or [...] Answer Date Recorded PHQ-2 Score 0 07/09/2022 [facility] of Occupat ional Health - Occupational [...] Gender Identity Male 07/02/2017 9:12 AM BRANCH STORE MANAGER Sexual Orientation Straight 07/02/2017 9: 12 AM BRANCH STORE MANAGER documented as of this encounter Medications [...] Pain/Nonacute Pain. 240 tablet 0 01/02/2023 01/30/2023 zolpidem (AMBIEN) 5 mg tablet TAKE ONE TABLET BY MOUTH AT BEDTIME NEEDED FOR SLEEP 30 tablet 0 09/13/2022 06/12/2023 documented as of this encounter Plan of Treatment Upcoming Encounters Date Type Department Care Team (Latest Contact Info) Description 08/02/2023 8:50 AM BRANCH STORE MANAGER Appointment Department of Laboratory Medicine in [address] [phone] Stefan Salomon M.D. [address] [place] [address] [phone] 08/02/2023 9:30 AM BRANCH STORE MANAGER Anticoagulation Visit Department of Anticoagulation in [address] [phone] Stefan Salomon M.D. [address] [place] [address] [phone] 09/24/2023 10:15 AM CDT Clinical Communication Virtual Review in [place], [place] 200 [place] [address] 09/25/2023 9:40 AM CDT Office Visit Department of Dermatology in [place], [place] [address] [place] [phone] Kira Hannah, HECTOR, C.N.P., M.S.N. [address] [place] [phone] Jordan Riojas M.D. [address] [place] [phone] documented as of this encounter Procedures Procedure Name Priority Date/Time Associated Diagnosis Comments INR REFLEX, POCT, B Routine 01/04/2023 8:08 AM CDT Anticoagulant Therapy Mutation Factor V Leiden Heterozygous (HCC) Monitoring For Therapeutic Drug Therapy Thrombosis Deep Vein Personal History documented in this encounter Results * INR Reflex, POCT, Blood (01/04/2023 8:08 AM CDT) INR Reflex, POCT, B 3.2 01/04/2023 8:07 AM CDT CNFL Comment: ----ADDITIONAL INFORMATION---- Standard intensity warfarin therapeutic range: 2.0 to 3.0 ?? High intensity warfarin therapeutic range: 2.5 to 3.5 Blood (Blood, Capillary) 01/04/2023 8:08 AM CDT 01/04/2023 8:07 AM CDT Stefan Salomon M.D. LAB POCT ORDERABLES - DEVICE [facility] [address] [place] [phone], [facility] in [address] [address] documented in this encounter Visit Diagnoses Diagnosis Anticoagulant Therapy Mutation Factor V Leiden Heterozygous (HCC) Monitoring For Therapeutic Drug Therapy Thrombosis Deep Vein Personal History documented in this encounter Additional Health Concerns Assessment Noted Time PHQ-9 Depression Total Score: 0 07/09/19 23 8:29 AM BRANCH STORE MANAGER documented as of this encounter Care Teams Machine Molder Squeeze Relationship Specialty Start Date End Date Stefan Salomon M.D. [address] [place] [phone] PCP - General Family Medicine 07/09/22 Anticoagulation Team 07/09/22 documented as of this encounter
--- OUTSIDE RECORDS SUMMARY | 2023-07-09 07:56 | XMS_ITS | Encounter Summary ---
Author Name Unknown Organization [facility] Address [address] [place] [address] Care Team Providers Care Checkerer Hand Name Role Phone Stefan Salomon M.D. Primary Care Provider [phone] Reason for Visit * Reason Comments Med Management Tramadol no concerns refills * Outpatient (Routine) - Closed Specialty Diagnoses / Procedures Referred By Piero t Referred To Contact Family Medicine Stefan Salomon M.D. [address] [place] [phone] [facility] Region Referral ID Status Reason Start Date Expiration Date Visits Re quested Visits Authorized [id number] Closed 11/01/2022 10/31/2025 1 1 Encounter Details Date Type Department Care Team (Late st Contact Info) Description 02/21/2023 3:15 PM CDT Office Visit Department of Family Medicine, [facility], in [address] [phone] Stefan Salomon M.D. [address] [place] [phone] Chronic Pain Syndrome (Primary Dx); Degeneration [...] week 07/09/2022 How often do you attend yazidism or jehovah's witness serv ices? Never 07/09/2022 Do you belong to any clubs o r organizations such as yazidism groups, unions, fraternal or athletic groups, or [...] Answer Date Recorded PHQ-2 Score 0 07/09/2022 [facility] [place] of Occupat ional Health - Occupational [...] file Gender Identity Male 07/02/2017 9:12 AM CHIEF EXECUTIVE OR MANAGING DIRECTOR Sexual Orientation Straight 07/02/2017 9: 12 AM CHIEF EXECUTIVE OR MANAGING DIRECTOR documented as of this encounter Last Filed [...] Body Mass Index 28.89 08/01/2022 9:59 AM CHIEF EXECUTIVE OR MANAGING DIRECTOR documented in this encounter Progress Notes * [...] (Latest Contact Info) Description 08/02/2023 8:50 AM CHIEF EXECUTIVE OR MANAGING DIRECTOR Appointment Department of Laboratory Medicine in [address] [phone] Stefan Salomon M.D. [address] [place] [phone] 08/02/2023 9:30 AM CHIEF EXECUTIVE OR MANAGING DIRECTOR Anticoagulation Visit Department of Anticoagulation in [place], [place] [address] [place] [address] Stefan Salomon M.D. [address] [place] [phone] 09/24/2023 10:15 AM CDT Clinical Communication Virtual Review in [place], [place] [address] [place], [place] [address] 09/25/2023 9:40 AM CDT Office Visit Department of Dermatology in [place], [place] [address] [place] [address] Kira Hannah APRN, C.N.P., M.S.N. [address] [place] [phone] Jordan Riojas M.D. [address] [place] [phone] documented as of this encounter Results * Lipid Panel (04/19/2023 7:39 AM CHIEF EXECUTIVE OR MANAGING DIRECTOR) Triglycerides 113 mg/dL 04/19/2023 11:48 AM CHIEF EXECUTIVE OR MANAGING DIRECTOR CNFL Comment: ----REFERENCE VALUE---- Normal: <150 mg/dL Borderline High: 150-199 mg/dL High: 200-499 mg/dL Very High: > or =500 mg/dL Cholesterol, Total 144 mg/dL 2022 11:48 AM CHIEF EXECUTIVE OR MANAGING DIRECTOR [facility] Comment: ----REFERENCE VALUE---- Desirable: < 200 mg/dL Borderline High: 200 - 239 mg/dL High: > or = 240 mg/dL Cholesterol, LDL, Calculated 76 mg/dL 04/19/2023 12:10 PM CHIEF EXECUTIVE OR MANAGING DIRECTOR [facility]FL Comment: ----REFERENCE VALUE---- Desirable: <100 mg/dL Above Desirable: 100-129 mg/dL Borderline High: 130-159 mg/dL High: 160-189 mg/dL Very High: >=190 mg/dL ----ADDITIONAL INFORMATION---- LDL cholesterol calculated using the Sosa/NIH equation. Cholesterol, HDL 48 >=40 mg/dL 04/19/20 12:10 PM CHIEF EXECUTIVE OR MANAGING DIRECTOR CNFL Cholesterol, Non-HDL, Calculated 96 mg/dL 04/19/2023 12:10 PM CHIEF EXECUTIVE OR MANAGING DIRECTOR [facility]FL Comment: ----REFERENCE VALUE---- Desirable: <130 mg/dL Above Desirable: 130-159 mg/dL Borderline High: 160-189 mg/dL High: 190-219 mg/dL Very High: > or =220 mg/dL Fasting (8 HR or more) No 04/19/2023 7:40 AM CHIEF EXECUTIVE OR MANAGING DIRECTOR CNFL Blood (Blood, Venous) 04/19/2023 7:39 AM CHIEF EXECUTIVE OR MANAGING DIRECTOR 04/19/2023 7:40 AM CHIEF EXECUTIVE OR MANAGING DIRECTOR Stefan Salomon M.D. LAB BLOOD ADD-ON [facility] [address] [place] [phone], [facility] CNFL [facility] [place] [address] * Basic Metabolic Panel (04/19/2023 7:39 AM CHIEF EXECUTIVE OR MANAGING DIRECTOR) Potassium, P 4.1 3.6 - 5.2 mmol/L 04/19/2023 11:48 AM CHIEF EXECUTIVE OR MANAGING DIRECTOR CNFL Sodium, P 138 135 - 145 mmol/L 04/19/2023 11:48 AM CHIEF EXECUTIVE OR MANAGING DIRECTOR CNFL Chloride, P 102 98 - 107 mmol/L 04/19/2023 11:48 AM CHIEF EXECUTIVE OR MANAGING DIRECTOR CNFL Bicarbonate, P 23 22 - 29 mmol/L 04/19/2023 11:48 AM CHIEF EXECUTIVE OR MANAGING DIRECTOR CNFL Anion Gap, P 13 7 - 15 04/19/2023 11:48 AM CHIEF EXECUTIVE OR MANAGING DIRECTOR CNFL BUN (Blood Urea Nitrogen), P 21 8 - 24 mg/dL 04/19/2023 11:48 AM CHIEF EXECUTIVE OR MANAGING DIRECTOR CNFL Creatinine 0.87 0.74 - 1.35 mg/dL 04/19/2023 11:48 AM CHIEF EXECUTIVE OR MANAGING DIRECTOR CNFL Estimated GFR (eGFR) >90 >=60 mL/min/BSA 04/19/2023 11:48 AM CHIEF EXECUTIVE OR MANAGING DIRECTOR CNFL Comment: Estimated GFR calculated using the 2020 CKD_EPI creatinine equation. Calcium, Total, P 9.1 8.8 - 10.2 mg/dL 04/19/2023 11:48 AM CHIEF EXECUTIVE OR MANAGING DIRECTOR CNFL Glucose, P 103 70 - 140 mg/dL 04/19/2023 11:48 AM CHIEF EXECUTIVE OR MANAGING DIRECTOR CNFL Blood (Blood, Venous) 04/19/2023 7:39 AM CHIEF EXECUTIVE OR MANAGING DIRECTOR 04/19/2023 7:40 AM CHIEF EXECUTIVE OR MANAGING DIRECTOR Stefan Salomon M.D. LAB BLOOD ADD-ON [facility] [address] [place] [phone], [facility] CNFL [facility] in [address] [address] documented in this encounter Visit Diagnoses Diagnosis Chronic Pain Syndrome- Primary Degeneration Disc Cervical Polyarthralgia Hypertension Essential Primary Hyperlipidemia documented in this encounter Additional Health Concerns Assessment Noted Time PHQ-9 Depression Total Score: 0 07/09/19 23 8:29 AM CHIEF EXECUTIVE OR MANAGING DIRECTOR documented as of this encounter Care Teams Checkerer Hand Relationship Specialty Start Date End Date Stefan Salomon M.D. [address] [place] [phone] PCP - General Family Medicine 07/09/22 Anticoagulation Team 07/09/22 documented as of this encounter
--- OUTSIDE RECORDS SUMMARY | 2023-07-09 07:56 | XMS_ITS | Encounter Summary ---
Author Name Unknown Organization [facility] Address [address] [place] [address] Care Team Providers Care Assembler Equipment Name Role Phone Stefan Salomon M.D. Primary Care Provider [phone] Reason for Referral * Outpatient (Routine) - Closed Specialty Diagnoses / Procedures Referred By Contac t Referred To Contact Anticoagulation Stefan Salomon M.D. [address] [place] [phone] [facility] Referral ID Status Reason Start Date Expiration Date Visits Re quested Visits Authorized [id number] Closed 01/31/2023 01/30/2026 1 1 Reason for Visit * Reason Onset Date Comments Anticoagulation 01/31/2023 Unable to reach Encounter Details Date Type Department Care Team (Latest Contact Info) Description 01/31/2023 Clinical Communication Department of Anticoagulation in [place], [place] [address] [place] [address] Theresa Storey R.N. [address] [place] [phone] Anticoagulation (Unable to reach ) Social History [...] week 07/09/2022 How often do you attend restorationism or sikh serv ices? Never 07/09/2022 Do you belong to any clubs o r organizations such as restorationism groups, unions, fraternal or athletic groups, or [...] Answer Date Recorded PHQ-2 Score 0 07/09/2022 [facility] [place] of Occupat ional Health - Occupational Stress [...] file Gender Identity Male 07/02/2017 9:12 AM PRINTING ASSISTANT Sexual Orientation Straight 07/02/2017 9: 12 AM PRINTING ASSISTANT documented as of this encounter Miscellaneous Notes * Telephone Encounter - Theresa Storey R.N. - 01/31/2023 4:52 PM CDT Patient contacted today by staff as they have not contacted the anticoagulation program following INR test. INR No communication outcome: Unable to reach. First Attempt. documented in this encounter Plan of Treatment Upcoming Encounters Date Type Department Care Team (Latest Contact Info) Description 08/02/2023 8:50 AM PRINTING ASSISTANT Appointment Department of Laboratory Medicine in [address] [phone] Stefan Salomon M.D. [address] [place] [phone] 08/02/2023 9:30 AM PRINTING ASSISTANT Anticoagulation Visit Department of Anticoagulation in [address] [phone] Stefan Salomon M.D. [address] [place] [phone] 09/24/2023 10:15 AM CDT Clinical Communication Virtual Review in [place], [place] [address] [place] [address] 09/25/2023 9:40 AM CDT Office Visit Department of Dermatology in [place], [place] [address] [place] [phone] Kira Hannah, HECTOR, C.N.P., M.S.N. [address] [place] [phone] Jordan Riojas M.D. [address] [place] [phone] Scheduled Referrals Name Type Priority Associated Diagnoses Order Schedule Anticoagulation nurse visit (clinic) Outpatient Referral Routine Expected: 02/01/2023, Expires: 05/02/2024 documented as of this encounter Visit Diagnoses Not on filedocumented in this encounter Additional Health Concerns Assessment Noted Time PHQ-9 Depression Total Score: 0 07/09/19 23 8:29 AM PRINTING ASSISTANT documented as of this encounter Care Teams Assembler Equipment Relationship Specialty Start Date End Date Stefan Salomon M.D. [address] [place] [phone] PCP - General Family Medicine 07/09/22 Anticoagulation Team 07/09/22 documented as of this encounter
--- OUTSIDE RECORDS SUMMARY | 2023-07-09 07:56 | XMS_ITS | Encounter Summary ---
Author Name Unknown Organization [facility] Address [address] [place] [address] Care Team Providers Care Bus Mechanic Name Role Phone Stefan Salomon M.D. Primary Care Provider [phone] Reason for Visit * Reason Comments Med Refill Encounter Details Date Type Department Care Team (Late st Contact Info) Description 01/30/2023 Refill Department of Family Medicine, [facility], in [address] [phone] Stefan Salomon M.D. [address] [place] [phone] Med Refill Social History Tobacco Use Types [...] How often do you attend judaism or gnosticist serv ices? Never 07/09/2022 Do you belong [...] file Gender Identity Male 07/02/2017 9:12 AM NOTEREADER Sexual Orientation Straight 07/02/2017 9: 12 AM NOTEREADER documented as of this encounter Miscellaneous Notes [...] (Latest Contact Info) Description 08/02/2023 8:50 AM NOTEREADER Appointment Department of Laboratory Medicine in [address] [phone] Stefan Salomon M.D. [address] [place] [phone] 08/02/2023 9:30 AM NOTEREADER Anticoagulation Visit Department of Anticoagulation in [place], [place] [address] [place] [address] Stefan Salomon M.D. [address] [place] [phone] 09/24/2023 10:15 AM CDT Clinical Communication Virtual Review in [place], [place] [address] [place] [address] 09/25/2023 9:40 AM CDT Office Visit Department of Dermatology in [place], [place] [address] [place] [phone] Kira Hannah APRN, C.N.P., M.S.N. [address] [place] [phone] Jordan Riojas M.D. [address] [place] [phone] documented as of this encounter Visit Diagnoses Diagnosis Chronic Pain Syndrome Degeneration Disc Cervical Polyarthralgia documented in this encounter Additional Health Concerns Assessment Noted Time PHQ-9 Depression Total Score: 0 07/09/19 23 8:29 AM NOTEREADER documented as of this encounter Care Teams Bus Mechanic Relationship Specialty Start Date End Date Stefan Salomon M.D. [address] [place] [phone] PCP - General Family Medicine 07/09/22 Anticoagulation Team 07/09/22 documented as of this encounter
--- OUTSIDE RECORDS SUMMARY | 2023-07-09 07:56 | XMS_ITS | Encounter Summary ---
Author Name Unknown Organization [facility] Address [address] [place] [address] Care Team Providers Care Reel Winder Name Role Phone Stefan Salomon M.D. Primary Care Provider [phone] Reason for Visit * Reason Comments Med Refill Encounter Details Date Type Department Care Team (Late st Contact Info) Description 01/01/2023 Refill Department of Family Medicine, [facility], in [address] [phone] Stefan Salomon M.D. [address] [place] [phone] Med Refill Social History Tobacco Use Types [...] How often do you attend islam or orthodoxy serv ices? Never 07/09/2022 Do you belong [...] Recorded PHQ-2 Score 0 07/09/2022 [facility] of Occupat ional Health - Occupational Stress [...] file Gender Identity Male 07/02/2017 9:12 AM GLASS SMOOTHER Sexual Orientation Straight 07/02/2017 9: 12 AM GLASS SMOOTHER documented as of this encounter Miscellaneous Notes [...] (Latest Contact Info) Description 08/02/2023 8:50 AM GLASS SMOOTHER Appointment Department of Laboratory Medicine in [address] [phone] Stefan Salomon M.D. [address] [place] [phone] 08/02/2023 9:30 AM GLASS SMOOTHER Anticoagulation Visit Department of Anticoagulation in [address] [phone] Stefan Salomon M.D. [address] [place] [phone] 09/24/2023 10:15 AM CDT Clinical Communication Virtual Review in [place], [place] [address] [place] [address] 09/25/2023 9:40 AM CDT Office Visit Department of Dermatology in [place], [place] [address] [place] [phone] Kira Hannah APRN, C.N.P., M.S.N. [address] [place] [phone] Jordan Riojas M.D. [address] [place] [phone] documented as of this encounter Visit Diagnoses Diagnosis Chronic Pain Syndrome Degeneration Disc Cervical Polyarthralgia documented in this encounter Additional Health Concerns Assessment Noted Time PHQ-9 Depression Total Score: 0 07/09/19 23 8:29 AM GLASS SMOOTHER documented as of this encounter Care Teams Reel Winder Relationship Specialty Start Date End Date Stefan Salomon M.D. [address] [phone] PCP - General Family Medicine 07/09/22 Anticoagulation Team 07/09/22 documented as of this encounter
--- OUTSIDE RECORDS SUMMARY | 2023-07-09 07:56 | XMS_ITS | Encounter Summary ---
Author Name Unknown Organization [facility] Address [address] [place] [address] Care Team Providers Care Crm Developer Name Role Phone Stefan Salomon M.D. Primary Care Provider [phone] Encounter Details Date Type Department Care Team (Latest Contact Info) Description 02/21/2023 2:30 PM CDT - 02/21/2023 11:59 PM CDT Hospital Encounter Department of Laboratory Medicine in [address] [phone] Stefan Salomon M.D. [address] [place] [phone] Chronic Pain Syndrome; Polyarthralgia; Degeneration Disc Cervical [...] How often do you attend mu-ism or orthodoxy serv ices? Never 07/09/2022 Do [...] Answer Date Recorded PHQ-2 Score 0 07/09/2022 [facility] [place] of Occupat ional Health - Occupational Stress [...] file Gender Identity Male 07/02/2017 9:12 AM MAIL ORDER SORTER Sexual Orientation Straight 07/02/2017 9: 12 AM MAIL ORDER SORTER documented as of this encounter Medications at [...] (Latest Contact Info) Description 08/02/2023 8:50 AM MAIL ORDER SORTER Appointment Department of Laboratory Medicine in [address] [place] [phone] Stefan Salomon M.D. [address] [place] [phone] 08/02/2023 9:30 AM MAIL ORDER SORTER Anticoagulation Visit Department of Anticoagulation in [place], [place] [address] [place] [phone] Stefan Salomon M.D. [address] [place] [phone] 09/24/2023 10:15 AM CDT Clinical Communication Virtual Review in [place], [place] 200 [place] [address] 09/25/2023 9:40 AM CDT Office Visit Department of Dermatology in [place], [place] [address] [place] [phone] Kira Hannah, HECTOR, C.N.P., M.S.N. [address] [place] [phone] Jordan Riojas M.D. [address] [place] [phone] documented as of this encounter Procedures Procedure Name Priority Date/Time Associated Diagnosis Comments CONTROLLED SUBSTANCE MONITORING, U Routine 02/21/2023 2:36 PM CDT Chronic Pain Syndrome Polyarthralgia Degeneration Disc Cervical documented in this encounter Results * (ABNORMAL) Controlled Substance Monitoring Panel, Urine (02/21/2023 2:36 PM CDT) List patient's current medications Not provided 3 10:09 PM CDT [facility] Comment: ----ADDITIONAL INFORMATION---- Accuracy and completeness of declared medications on reports solely dependent on information submitted by client. Creatinine, Random, U 225.8 mg/dL 3 8:56 AM CDT [facility] Specific [place] 1.035 02/23/20 2 3 8:56 AM CDT [...] 3 11:35 PM CDT [facility] Comment:Tylenol 3 Aqnltiv-0-rifi-glucuro nide Not Detected Cutoff: 100 ng/mL 3 11:35 PM CDT [facility] Comment:Metabolite of codein e Morphine Not Detected Cutoff: 25 ng/mL 3 11:35 PM CDT [facility] Comment: Kelsey Ornelas, MS Contin; Also a minor metabolite (10%) of codeine and can be seen in low concentrations (<2,000 ng/mL) with poppy seed ingestion. Wepxquxh-8-hnrz-glucur onide Not Detected Cutoff: 100 ng/mL 3 11:35 PM CDT [facility] Comment:Metabolite of morphi ne 6-monoacetylmorphine Not Detected Cutoff: 25 ng/mL 3 11:35 PM CDT [facility] Comment:Metabolite of heroin Hydrocodone Not Detected Cutoff: 25 ng/mL 3 11:35 PM CDT [facility] Comment: Lortab, [place], Vicodin; Also a very minor metabolite of [...] and a minor (<5%) metabolite of morphine. Ujjcyjkyazzqu-5-dlmg-g lucuronide Not Detected Cutoff: 100 ng/mL 3 [...] Opana; Al so a metabolite of oxycodone. Bglxwfwhspr-2-iqvh-glu curonide Not Detected Cutoff: 100 ng/mL 3 [...] ng/mL 3 11:35 PM CDT [facility] Comment:Narcan Rysmvwge-3-vlkg-glucur onide Not Detected Cutoff: 100 ng/mL 3 11:35 PM CDT [facility] Comment:Metabolite of naloxo ne Methadone, U Not Detected Cutoff: 25 ng/mL 3 11:35 [...] PM CDT [facility] Comment:Metabolite of tapent adol Xjuwxtiiyx-yfwh-swhjoo onide Not Detected Cutoff: 100 ng/mL 3 [...] developed and its performance characteristics determined by [facility] in a manner consistent with CLIA [...] 3 1:34 PM CDT [facility] Comment:Ambien Zolpidem Eckdjw-1-Epqjwzsffi acid Not Detected Cutoff: 10 ng/mL 3 [...] developed and its performance characteristics determined by [facility] in a manner consistent with CLIA [...] 100 ng/mL 3 12:14 PM CDT [facility] 3,2-owszyhxwltjdmh-K-e thylamphetamine (MDEA) Not Detected Cutoff: 100 ng/mL [...] Cutoff: 100 ng/mL 3 12:14 PM CDT [facility] Comment:Metabolite of methyl phenidate Stimulant Interpretation No stimulants were detected. The absence of expected drug(s) and/or drug metabolite(s) may indicate non-compliance, altered pharmacokinetics, inappropriate timing of specimen collection relative to drug administration, diluted/adulterat ed urine, or limitations of testing. 3 12:14 PM CDT [facility] Comment: ----ADDITIONAL INFORMATION---- This test was developed and its performance characteristics determined by [facility] in a manner consistent with CLIA requirements. This test has not been cleared or approved by the U.S. Food and Drug Administration. Urine (Urine, Midstream) 02/21/2023 2:36 PM CDT 02/21/2023 10:09 PM CDT Stefan Salomon M.D. LAB URINE ORDERABLE S Performing Organization Address City/State/RUST Co de Phone Number [facility] [address] [place] [address] [facility] [address] [place] [address] [place] [address] [place] [address] [place] [address] documented in this encounter Visit Diagnoses Diagnosis Chronic Pain Syndrome Polyarthralgia Degeneration Disc Cervical documented in this encounter Additional Health Concerns Assessment Noted Time PHQ-9 Depression Total Score: 0 07/09/19 23 8:29 AM MAIL ORDER SORTER documented as of this encounter Care Teams Crm Developer Relationship Specialty Start Date End Date Stefan Salomon M.D. [address] [place] [phone] PCP - General Family Medicine 07/09/22 Anticoagulation Team 07/09/22 documented as of this encounter
--- OUTSIDE RECORDS SUMMARY | 2023-07-09 07:56 | XMS_ITS | Encounter Summary ---
Author Name Unknown Organization [facility] Address [address] [place] [address] Care Team Providers Care Body Finisher Name Role Phone Stefan Salomon M.D. Primary Care Provider [phone] Reason for Visit * Outpatient (Routine) - Canceled Specialty Diagnoses / Procedures Referred By Contdayana t Referred To Contact Anticoagulation Yue Alonso M.D. [address] [place] [address] [facility] Region Referral ID Status Reason Start Date Expiration Date V isits Requested Visits Authorized [id number] Canceled 11/14/2021 11/14/2022 156 156 Encounter Details Date Type Department Care Team (Latest Contact Info) Description 01/04/2023 9:20 AM CDT Anticoagulation Visit Department of Anticoagulation in [place], [place] [address] [place] [address] Yue Alonso M.D. [address] [place] [address] Anticoagulant Therapy (Primary Dx); Mutation [...] How often do you attend yazidism or jain serv ices? Never 07/09/2022 Do you belong [...] Recorded PHQ-2 Score 0 07/09/2022 [facility] [place] of Occupat ional Health - Occupational Stress [...] file Gender Identity Male 07/02/2017 9:12 AM ONCOLOGY PHYSICIAN Sexual Orientation Straight 07/02/2017 9: 12 AM ONCOLOGY PHYSICIAN documented as of this encounter Patient Instructions [...] please call Primary Care Anticoagulation Program at [phone] from 7:30 am to 4:30 pm. Saturday-Saturday [...] if you start any herbal or other nkkc-tlc-fciassh product (check with your doctor, a nurse, [...] (Latest Contact Info) Description 08/02/2023 8:50 AM ONCOLOGY PHYSICIAN Appointment Department of Laboratory Medicine in [address] [phone] Stefan Salomon M.D. [address] [place] [phone] 08/02/2023 9:30 AM ONCOLOGY PHYSICIAN Anticoagulation Visit Department of Anticoagulation in [place], [place] [address] [place] [phone] Stefan Salomon M.D. [address] [place] [phone] 09/24/2023 10:15 AM CDT Clinical Communication Virtual Review in [place], [place] 200 [place] [address] 09/25/2023 9:40 AM CDT Office Visit Department of Dermatology in [place], [place] [address] [place] [phone] Kira Hannah APRN, C.N.P., M.S.N. [address] [place] [phone] Jordan Riojas M.D. [address] [place] [phone] documented as of this encounter Results * INR Reflex, POCT, Blood (01/31/2023 7:11 AM CDT) INR Reflex, POCT, B 2.8 01/31/2023 7:11 AM CDT [facility] Comment: ----ADDITIONAL INFORMATION---- Standard intensity warfarin therapeutic range: 2.0 to 3.0 ?? High intensity warfarin therapeutic range: 2.5 to 3.5 Blood (Blood, Capillary) 01/31/2023 7:11 AM CDT 01/31/2023 7:11 AM CDT Stefan Salomon M.D. LAB POCT ORDERABLES - DEVICE Performing Organization Address City/State/[facility] Co de Phone Number [facility] [address] [place] [phone], [facility] CNFL [facility] in [address] [address] documented in this encounter Visit Diagnoses Diagnosis Anticoagulant Therapy- Primary Mutation Factor V Leiden Heterozygous (HCC) Monitoring For Therapeutic Drug Therapy Thrombosis Deep Vein Personal History documented in this encounter Additional Health Concerns Assessment Noted Time PHQ-9 Depression Total Score: 0 07/09/19 8:29 AM ONCOLOGY PHYSICIAN documented as of this encounter Care Teams Body Finisher Relationship Specialty Start Date End Date Stefan Salomon M.D. [address] [place] [phone] PCP - General Family Medicine 07/09/22 Anticoagulation Team 07/09/22 documented as of this encounter
--- OUTSIDE RECORDS SUMMARY | 2023-07-09 07:56 | XMS_ITS | Encounter Summary ---
Author Name Unknown Organization [facility] Address [address] [place] [address] Care Team Providers Care Brim Flexer Name Role Phone Stefan Salomon M.D. Primary Care Provider [phone] Encounter Details Date Type Department Care Team (Late st Contact Info) Description 01/07/2023 Orders Only Department of Family Medicine, [facility], in [place], [place] [address] [place] [phone] Karsten Collins M.D. [address] [place] [phone] Social History Tobacco Use Types Packs/Day [...] How often do you attend jewish or baptist serv ices? Never 07/09/2022 Do [...] Recorded PHQ-2 Score 0 07/09/2022 [facility] of Occupat ional Health - Occupational [...] file Gender Identity Male 07/02/2017 9:12 AM INDUSTRIAL RELATIONS ANALYST Sexual Orientation Straight 07/02/2017 9: 12 AM INDUSTRIAL RELATIONS ANALYST documented as of this encounter Plan of Treatment Upcoming Encounters Date Type Department Care Team (Latest Contact Info) Description 08/02/2023 8:50 AM INDUSTRIAL RELATIONS ANALYST Appointment Department of Laboratory Medicine in [address] [phone] Stefan Salomon M.D. [address] [place] [phone] 08/02/2023 9:30 AM INDUSTRIAL RELATIONS ANALYST Anticoagulation Visit Department of Anticoagulation in [place], [place] [address] [place] [phone] Stefan Salomon M.D. [address] [place] [phone] 09/24/2023 10:15 AM CDT Clinical Communication Virtual Review in [place], [place] 200 [place] [address] 09/25/2023 9:40 AM CDT Office Visit Department of Dermatology in [place], [place] [address] [place] [phone] Kira Hannah, HECTOR, C.N.P., M.S.N. [address] [place] [phone] Jordan Riojas M.D. [address] [place] [phone] documented as of this encounter Visit Diagnoses Not on filedocumented in this encounter Additional Health Concerns Assessment Noted Time PHQ-9 Depression Total Score: 0 07/09/19 23 8:29 AM INDUSTRIAL RELATIONS ANALYST documented as of this encounter Care Teams Brim Flexer Relationship Specialty Start Date End Date Stefan Salomon M.D. [address] [place] [phone] PCP - General Family Medicine 07/09/22 Anticoagulation Team 07/09/22 documented as of this encounter
--- OUTSIDE RECORDS SUMMARY | 2023-07-09 07:56 | XMS_ITS | Encounter Summary ---
Author Name Unknown Organization [facility] Address [address] [place] [address] Care Team Providers Care Cad Application Support Specialist Name Role Phone Stefan Salomon M.D. Primary Care Provider [phone] Encounter Details Date Type Department Care Team (Latest Contact Info) Description 01/31/2023 7:00 AM CDT - 01/31/2023 11:59 PM CDT Hospital Encounter Department of Laboratory Medicine in [address] [phone] Stefan Salomon M.D. [address] [place] [phone] Anticoagulant Therapy; Mutation Factor V Leiden Heterozygous [...] week 07/09/2022 How often do you attend religion or orthodoxy serv ices? Never 07/09/2022 Do you belong to any clubs o r organizations such as religion groups, unions, fraternal or athletic groups, or [...] Answer Date Recorded PHQ-2 Score 0 07/09/2022 [facility] of Occupat ional Health - [...] file Gender Identity Male 07/02/2017 9:12 AM GRANULIZING MACHINE OPERATOR Sexual Orientation Straight 07/02/2017 9: 12 AM GRANULIZING MACHINE OPERATOR documented as of this encounter [...] Pain/Nonacute Pain. 240 tablet 0 02/01/2023 02/21/2023 zolpidem (AMBIEN) 5 mg tablet TAKE ONE TABLET BY MOUTH AT BEDTIME NEEDED FOR SLEEP 30 tablet 0 09/13/2022 06/12/2023 documented as of this encounter Plan of Treatment Upcoming Encounters Date Type Department Care Team (Latest Contact Info) Description 08/02/2023 8:50 AM GRANULIZING MACHINE OPERATOR Appointment Department of Laboratory Medicine in [address] [phone] Stefan Salomon M.D. [address] [place] [phone] 08/02/2023 9:30 AM GRANULIZING MACHINE OPERATOR Anticoagulation Visit Department of Anticoagulation in [address] [phone] Stefan Salomon M.D. [address] [place] [phone] 09/24/2023 10:15 AM CDT Clinical Communication Virtual Review in [place], [place] 200 [place] [address] 09/25/2023 9:40 AM CDT Office Visit Department of Dermatology in [place], [place] [address] [place] [phone] Kira Hannah, HECTOR, C.N.P., M.S.N. [address] [place] [phone] Jordan Riojas M.D. [address] [place] [phone] documented as of this encounter Procedures Procedure [...] Salomon M.D. 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 [address] [place] [phone] PCP - General Family Medicine 07/09/22 Anticoagulation Team 07/09/22 documented as of this encounter
--- OUTSIDE RECORDS SUMMARY | 2023-07-09 07:56 | XMS_ITS | Encounter Summary ---
Author Name Unknown Organization [facility] Address [address] [place] [address] Care Team Providers Care Medical Office Coordinator Name Role Phone Stefan Salomon M.D. Primary Care Provider [phone] Reason for Visit * Reason Onset Date Comments New Med Request 02/25/2023 Med Increase Encounter Details Date Type Department Care Team (Latest Contact Info) Description 02/25/2023 Clinical Communication Department of Family Medicine, [facility], in [address] [phone] Stefan Salomon M.D. [address] [place] [phone] New Med Request (Med Increase) Social History [...] week 07/09/2022 How often do you attend pentecostal or adventism serv ices? Never 07/09/2022 Do you belong to any clubs o r organizations such as pentecostal groups, unions, fraternal or athletic groups, or [...] file Gender Identity Male 07/02/2017 9:12 AM SVP RESEARCH & EBUSINESS OPERATIONS Sexual Orientation Straight 07/02/2017 9: 12 AM SVP RESEARCH & EBUSINESS OPERATIONS documented as of this encounter Miscellaneous Notes * Telephone Encounter - Ty Christensen APRN, C.N.P. - 02/25/2023 12:40 PM CDT Signed, thank you documented in this encounter Plan of Treatment Upcoming Encounters Date Type Department Care Team (Latest Contact Info) Description 08/02/2023 8:50 AM SVP RESEARCH & EBUSINESS OPERATIONS Appointment Department of Laboratory Medicine in [address] [phone] Stefan Salomon M.D. [address] [place] [phone] 08/02/2023 9:30 AM SVP RESEARCH & EBUSINESS OPERATIONS Anticoagulation Visit Department of Anticoagulation in [place], [place] [address] [place] [phone] Stefan Salomon M.D. [address] [place] [phone] 09/24/2023 10:15 AM CDT Clinical Communication Virtual Review in [place], [place] 200 [place] [address] 09/25/2023 9:40 AM CDT Office Visit Department of Dermatology in [place], [place] [address] [place] [phone] Kira Hannah, HECTOR, C.N.P., M.S.N. [address] [place] [phone] Jordan Riojas M.D. [address] [place] [phone] documented as of this encounter Visit Diagnoses Diagnosis Insufficiency Venous- Primary Chronic Pain Syndrome Pain Limb Generalized Pain Leg Bilateral Pseudogout documented in this encounter Additional Health Concerns Assessment Noted Time PHQ-9 Depression Total Score: 0 07/09/19 23 8:29 AM SVP RESEARCH & EBUSINESS OPERATIONS documented as of this encounter Care Teams Medical Office Coordinator Relationship Specialty Start Date End Date Stefan Salomon M.D. [address] [place] [phone] PCP - General Family Medicine 07/09/22 Anticoagulation Team 07/09/22 documented as of this encounter
--- OUTSIDE RECORDS SUMMARY | 2023-07-09 07:56 | XMS_ITS | Encounter Summary ---
Author Name Unknown Organization [facility] Address [address] [place] [address] Care Team Providers Care Cyanide Pot Tender Name Role Phone Stefan Salomon M.D. Primary Care Provider [phone] Reason for Referral * Outpatient (Routine) - Authorized Specialty Diagnoses / Procedures Referred By Contac t Referred To Contact Anticoagulation Diagnoses Anticoagulant Therapy Mutation Factor V Leiden Heterozygous (HCC) Monitoring For Therapeutic Drug Therapy Thrombosis Deep Vein Personal History Stefan Salomon M.D. [address] [place] [phone] [facility] Referral ID Status Reason Start Date Expiration Date V isits Requested Visits Authorized [id number] Authorized 02/01/2023 01/31/2026 300 300 Reason for Visit * Outpatient (Routine) - Closed Specialty Diagnoses / Procedures Referred By Contac t Referred To Contact Anticoagulation Stefan Salomon M.D. [address] [place] [phone] [facility] Referral ID Status Reason Start Date Expiration Date Visits Re quested Visits Authorized [id number] Closed 01/31/2023 01/30/2026 1 1 Encounter Details Date Type Department Care Team (Latest Contact Info) Description 02/01/2023 8:00 AM CDT Anticoagulation Visit Department of Anticoagulation in [place], [place] [address] [place] [address] Stefan Salomon M.D. [address] [place] [phone] Anticoagulant Therapy [Z79.01] (Primary Dx); Mutation Factor [...] How often do you attend druze or restorationism serv ices? Never 07/09/2022 Do [...] 07/09/2022 [facility] of Occupat ional [facility] - Occupational Stress Questionnaire Answer Date [...] Gender Identity Male 07/02/2017 9:12 AM DIRECTOR SCHOOL OF NURSING Sexual Orientation Straight 07/02/2017 9: 12 AM DIRECTOR SCHOOL OF NURSING documented as of this encounter Patient Instructions [...] please call Primary Care Anticoagulation Program at [phone] from 7:30 am to 4:30 pm. Saturday-Saturday [...] if you start any herbal or other ougf-wps-cszclvc product (check with your doctor, a nurse, [...] (Latest Contact Info) Description 08/02/2023 8:50 AM DIRECTOR SCHOOL OF NURSING Appointment Department of Laboratory Medicine in [address] [phone] Stefan Salomon M.D. [address] [place] [phone] 08/02/2023 9:30 AM DIRECTOR SCHOOL OF NURSING Anticoagulation Visit Department of Anticoagulation in [address] [phone] Stefan Salomon M.D. [address] [place] [phone] 09/24/2023 10:15 AM CDT Clinical Communication Virtual Review in [place], [place] 200 [place] [address] 09/25/2023 9:40 AM CDT Office Visit Department of Dermatology in [place], [place] [address] [place] [phone] Kira Hannah, HECTOR, C.N.P., M.S.N. [address] [place] [phone] Jordan Riojas M.D. [address] [place] [phone] Scheduled Referrals Name Type Priority Associated Diagnoses [...] POCT, B 2.0 03/14/2023 7:51 AM CDT [facility] Comment: ----ADDITIONAL INFORMATION---- Standard intensity warfarin therapeutic range: 2.0 to 3.0 ?? High intensity warfarin therapeutic range: 2.5 to 3.5 Blood (Blood, Capillary) 03/14/2023 7:51 AM CDT 03/14/2023 7:51 AM CDT Stefan Salomon M.D. LAB POCT ORDERABLES - DEVICE [facility] [address] [place] [phone], [facility] in [address] [address] documented in this encounter Visit Diagnoses Diagnosis Anticoagulant Therapy [Z79.01]- Primary Mutation Factor V Leiden Heterozygous (HCC) Monitoring For Therapeutic Drug Therapy [Z51.81] Thrombosis Deep Vein Personal History documented in this encounter Additional Health Concerns Assessment Noted Time PHQ-9 Depression Total Score: 0 07/09/19 23 8:29 AM DIRECTOR SCHOOL OF NURSING documented as of this encounter Care Teams Cyanide Pot Tender Relationship Specialty Start Date End Date Stefan Salomon M.D. [address] [place] [phone] PCP - General Family Medicine 07/09/22 Anticoagulation Team 07/09/22 documented as of this encounter
--- OUTSIDE RECORDS SUMMARY | 2023-07-09 07:56 | XMS_ITS | Encounter Summary ---
Author Name Unknown Organization [facility] Address [address] [place] [address] Care Team Providers Care Senior Counsel Name Role Phone Stefan Salomon M.D. Primary Care Provider [phone] Reason for Visit * Outpatient (Routine) - Canceled Specialty Diagnoses / Procedures Referred By Contdayana t Referred To Contact Anticoagulation Yue Alonso M.D. [address] [place] [phone] [facility] Region Referral ID Status Reason Start Date Expiration Date V isits Requested Visits Authorized [id number] Canceled 11/14/2021 11/14/2022 156 156 Encounter Details Date Type Department Care Team (Latest Contact Info) Description 12/21/2022 2:10 PM CDT Anticoagulation Visit Department of Anticoagulation in [place], [place] [address] [place] [phone] Yue Alonso M.D. [address] [place] [phone] Anticoagulant Therapy (Primary Dx); Mutation [...] How often do you attend jewish or scientologist serv ices? Never 07/09/2022 Do [...] Answer Date Recorded PHQ-2 Score 0 07/09/2022 [facility] [place] of Occupat ional Health - Occupational Stress [...] file Gender Identity Male 07/02/2017 9:12 AM HAZMAT CDL A DRIVER Sexual Orientation Straight 07/02/2017 9: 12 AM HAZMAT CDL A DRIVER documented as of this encounter Patient Instructions [...] please call Primary Care Anticoagulation Program at [phone] from 7:30 am to 4:30 pm. Saturday-Saturday [...] if you start any herbal or other splr-oxe-icyahyi product (check with your doctor, a nurse, [...] (Latest Contact Info) Description 08/02/2023 8:50 AM HAZMAT CDL A DRIVER Appointment Department of Laboratory Medicine in [address] [phone] Stefan Salomon M.D. [phone] [place] [address] [place] [phone] 08/02/2023 9:30 AM HAZMAT CDL A DRIVER Anticoagulation Visit Department of Anticoagulation in [address] [phone] Stefan Salomon M.D. [address] [place] [address] [place] [phone] 09/24/2023 10:15 AM CDT Clinical Communication Virtual Review in [place], [place] [address] [place] [address] 09/25/2023 9:40 AM CDT Office Visit Department of Dermatology in [place], [place] [address] [place] [phone] Kira Hannah APRN, C.N.P., M.S.N. [address] [place] [phone] Jordan Riojas M.D. [address] [place] [phone] documented as of this encounter Results * [...] Salomon M.D. LAB POCT ORDERABLES - DEVICE [facility] [address] [place] [address], [facility] CNFL [facility] in [address] [address] documented in this encounter Visit Diagnoses Diagnosis Anticoagulant Therapy- Primary Mutation Factor V Leiden Heterozygous (HCC) Monitoring For Therapeutic Drug Therapy Thrombosis Deep Vein Personal History documented in this encounter Additional Health Concerns Assessment Noted Time PHQ-9 Depression Total Score: 0 07/09/19 23 8:29 AM HAZMAT CDL A DRIVER documented as of this encounter Care Teams Senior Counsel Relationship Specialty Start Date End Date Stefan Salomon M.D. [address] [place] [phone] PCP - General Family Medicine 07/09/22 Anticoagulation Team 07/09/22 documented as of this encounter
--- OUTSIDE RECORDS SUMMARY | 2023-07-09 07:57 | XMS_ITS | Encounter Summary ---
Author Name Unknown Organization [facility] Address [address] [place] [address] Care Team Providers Care Oil Derrick Operator Name Role Phone Stefan Salomon M.D. Primary Care Provider [phone] Reason for Visit * Outpatient (Routine) - Canceled Specialty Diagnoses / Procedures Referred By Contdayana t Referred To Contact Anticoagulation Yue Alonso M.D. [address] [place] [phone] [facility] Region Referral ID Status Reason Start Date Expiration Date V isits Requested Visits Authorized [id number] Canceled 11/14/2021 11/14/2022 156 156 Encounter Details Date Type Department Care Team (Latest Contact Info) Description 12/14/2022 9:40 AM CDT Anticoagulation Visit Department of Anticoagulation in [place], [place] [address] [place] [address] Yue Alonso M.D. [address] [place] [phone] Anticoagulant Therapy (Primary Dx); Mutation [...] How often do you attend anabaptism or sikhism serv ices? Never 07/09/2022 Do [...] PHQ-2 Score 0 07/09/2022 [facility] of Occupat ional Health - Occupational Stress [...] file Gender Identity Male 07/02/2017 9:12 AM ASSOCIATE PROFESSOR OF MUSIC Sexual Orientation Straight 07/02/2017 9: 12 AM ASSOCIATE PROFESSOR OF MUSIC documented as of this encounter Patient Instructions [...] please call Primary Care Anticoagulation Program at [phone] from 7:30 am to 4:30 pm. Saturday-Saturday [...] if you start any herbal or other ntso-ihl-qyelhol product (check with your doctor, a nurse, [...] indicated above stating consult required. Consulted Anticoagulation [facility] for plan. Currently bridging: no. INR is subtherapeutic, reviewed need for bridging with provider. Bridging ordered? Yes, but patient declined due to cost. Additional dosing or follow-up information: Provider consulted: Essie Harris- Anticoagulation [facility] Pt is on injectable anticoagulant: No. [...] (Latest Contact Info) Description 08/02/2023 8:50 AM ASSOCIATE PROFESSOR OF MUSIC Appointment Department of Laboratory Medicine in [address] [phone] Stefan Salomon M.D. [address] [place] [phone] 08/02/2023 9:30 AM ASSOCIATE PROFESSOR OF MUSIC Anticoagulation Visit Department of Anticoagulation in [place], [place] [address] [place] [phone] Stefan Salomon M.D. [address] [place] [phone] 09/24/2023 10:15 AM CDT Clinical Communication Virtual Review in [place], [place] 200 [place] [address] 09/25/2023 9:40 AM CDT Office Visit Department of Dermatology in [place], [place] [address] [place] [phone] Kira Hannah, HECTOR, C.N.P., M.S.N. [address] [place] [phone] Jordan Riojas M.D. [address] [place] [phone] documented as of this encounter Results * [...] Salomon M.D. LAB POCT ORDERABLES - DEVICE [facility] [address] [place] [address], [facility] CNFL [facility] in [address] [address] documented in this encounter Visit Diagnoses Diagnosis Anticoagulant Therapy- Primary Mutation Factor V Leiden Heterozygous (HCC) Monitoring For Therapeutic Drug Therapy Thrombosis Deep Vein Personal History documented in this encounter Additional Health Concerns Assessment Noted Time PHQ-9 Depression Total Score: 0 07/09/19 23 8:29 AM ASSOCIATE PROFESSOR OF MUSIC documented as of this encounter Care Teams Oil Derrick Operator Relationship Specialty Start Date End Date Stefan Salomon M.D. [address] [place] [phone] PCP - General Family Medicine 07/09/22 Anticoagulation Team 07/09/22 documented as of this encounter
--- OUTSIDE RECORDS SUMMARY | 2023-07-09 07:57 | XMS_ITS | Encounter Summary ---
Author Name Unknown Organization [facility] Address [address] [place] [address] Care Team Providers Care Chief Electrician Name Role Phone Stefan Salomon M.D. Primary Care Provider [phone] Reason for Visit * Reason Onset Date Comments Anticoagulation 11/15/2022 CCM Enrollment Encounter Details Date Type Department Care Team (Latest Contact Info) Description 11/15/2022 Clinical Communication Department of Anticoagulation in [place], [place] [address] [place] [address] Candace Lee, RCotyNCoty Anticoagulation (CCM Enrollment) Social [...] How often do you attend scientologist or christian serv ices? Never 07/09/2022 Do you belong [...] Answer Date Recorded PHQ-2 Score 0 07/09/2022 [facility] of Occupat ional [facility] - Occupational Stress Questionnaire Answer [...] file Gender Identity Male 07/02/2017 9:12 AM ACQUISITION COST ESTIMATOR Sexual Orientation Straight 07/02/2017 9: 12 AM ACQUISITION COST ESTIMATOR documented as of this encounter Miscellaneous Notes * Telephone Encounter - Paola Dey, C.Ph.T. - 11/19/2022 8:50 AM CDT Letter has been sent. Thank you. * Telephone Encounter - Candace Lee R.N. - 11/15/2022 3:50 PM CDT [...] questions on Chronic Care Management coverage or [facility] Patient Account Servicesif they have any questions about their bill. documented in this encounter Plan of Treatment Upcoming Encounters Date Type Department Care Team (Latest Contact Info) Description 08/02/2023 8:50 AM ACQUISITION COST ESTIMATOR Appointment Department of Laboratory Medicine in [address] [phone] Stefan Salomon M.D. [address] [place] [phone] 08/02/2023 9:30 AM ACQUISITION COST ESTIMATOR Anticoagulation Visit Department of Anticoagulation in [address] [phone] Stefan Salomon M.D. [address] [place] [phone] 09/24/2023 10:15 AM CDT Clinical Communication Virtual Review in [place], [place] 200 [place] [address] 09/25/2023 9:40 AM CDT Office Visit Department of Dermatology in [place], [place] [address] [place] [phone] Kira Hannah, HECTOR, C.N.P., M.S.N. [address] [place] [phone] Jordan Riojas M.D. [address] [place] [phone] documented as of this encounter Visit Diagnoses Diagnosis Anticoagulant Therapy- Primary Mutation Factor V Leiden Heterozygous (HCC) Monitoring For Therapeutic Drug Therapy Thrombosis Deep Vein Personal History documented in this encounter Additional Health Concerns Assessment Noted Time PHQ-9 Depression Total Score: 0 07/09/19 23 8:29 AM ACQUISITION COST ESTIMATOR documented as of this encounter Care Teams Chief Electrician Relationship Specialty Start Date End Date Stefan Salomon M.D. [address] [place] [phone] PCP - General Family Medicine 07/09/22 Anticoagulation Team 07/09/22 documented as of this encounter
--- OUTSIDE RECORDS SUMMARY | 2023-07-09 07:57 | XMS_ITS | Encounter Summary ---
Author Name Unknown Organization [facility] Address [address] [place] [address] Care Team Providers Care Electronic Organ Technician Name Role Phone Stefan Salomon M.D. Primary Care Provider [phone] Reason for Referral * Outpatient (Routine) - Closed Specialty Diagnoses / Procedures Referred By Piero self Referred To Contact Family Medicine Stefan Salomon M.D. [address] [place] [phone] [facility] Referral ID Status Reason Start Date Expiration Date Visits Re quested Visits Authorized [id number] Closed 11/01/2022 10/31/2025 1 1 Reason for Visit * Reason Comments Med Refill Encounter Details Date Type Department Care Team (Late st Contact Info) Description 10/31/2022 Refill Department of Family Medicine, [facility], in [address] [phone] Stefan Salomon M.D. [address] [place] [phone] Med Refill Social History Tobacco Use [...] How often do you attend jain or oriental orthodox serv ices? Never 07/09/2022 [...] Answer Date Recorded PHQ-2 Score 0 07/09/2022 [employer] of Occupat ional Health - Occupational Stress [...] file Gender Identity Male 07/02/2017 9:12 AM PLANNING MANAGEMENT IT SPECIALIST Sexual Orientation Straight 07/02/2017 9: 12 AM PLANNING MANAGEMENT IT SPECIALIST documented as of this encounter Miscellaneous Notes [...] (Latest Contact Info) Description 08/02/2023 8:50 AM PLANNING MANAGEMENT IT SPECIALIST Appointment Department of Laboratory Medicine in [address] [phone] Stefan Salomon M.D. [address] [place] [phone] 08/02/2023 9:30 AM PLANNING MANAGEMENT IT SPECIALIST Anticoagulation Visit Department of Anticoagulation in [address] [phone] Stefan Salomon M.D. [address] [place] [phone] 09/24/2023 10:15 AM CDT Clinical Communication Virtual Review in [place], [place] 200 [place] [address] 09/25/2023 9:40 AM CDT Office Visit Department of Dermatology in [place], [place] [address] [place] [phone] Kira Hannah, HECTOR, C.N.P., M.S.N. 200 [place] [phone] Jordan Riojas M.D. 200 [place] [phone] Scheduled Referrals Name Type Priority Associated Diagnoses Orde r Schedule Family Medicine office visit (clinic) Outpatient Referral Routine Expected: 01/01/2023, Expires: 02/02/2024 documented as of this encounter Visit Diagnoses Diagnosis Chronic Pain Syndrome Polyarthralgia Degeneration Disc Cervical documented in this encounter Additional Health Concerns Assessment Noted Time PHQ-9 Depression Total Score: 0 07/09/19 23 8:29 AM PLANNING MANAGEMENT IT SPECIALIST documented as of this encounter Care Teams Electronic Organ Technician Relationship Specialty Start Date End Date Stefan Salomon M.D. [address] [place] [phone] PCP - General Family Medicine 07/09/22 Anticoagulation Team 07/09/22 documented as of this encounter
--- OUTSIDE RECORDS SUMMARY | 2023-07-09 07:57 | XMS_ITS | Encounter Summary ---
Author Name Unknown Organization [facility] Address [address] [place] [address] Care Team Providers Care Materials Intern Name Role Phone Stefan Salomon M.D. Primary Care Provider [phone] Encounter Details Date Type Department Care Team (Latest Contact Info) Description 12/11/2022 11:11 AM CDT - 12/11/2022 11:59 PM CDT Hospital Encounter Department of Laboratory Medicine in [address] [phone] Stefan Salomon M.D. [address] [place] [phone] Anticoagulant Therapy; Mutation Factor V Leiden Heterozygous [...] week 07/09/2022 How often do you attend latter day or orthodoxy serv ices? Never 07/09/2022 Do you belong to any clubs o r organizations such as latter day groups, unions, fraternal or athletic groups, or [...] PHQ-2 Score 0 07/09/2022 [facility] of Occupat ional Health - Occupational [...] file Gender Identity Male 07/02/2017 9:12 AM MEDIA INTERN Sexual Orientation Straight 07/02/2017 9: 12 AM MEDIA INTERN documented as of this encounter Medications at [...] Pain/Nonacute Pain. 240 tablet 0 12/03/2022 01/01/2023 zolpidem (AMBIEN) 5 mg tablet TAKE ONE TABLET BY MOUTH AT BEDTIME NEEDED FOR SLEEP 30 tablet 0 09/13/2022 06/12/2023 documented as of this encounter Plan of Treatment Upcoming Encounters Date Type Department Care Team (Latest Contact Info) Description 08/02/2023 8:50 AM MEDIA INTERN Appointment Department of Laboratory Medicine in [address] [phone] Stefan Salomon M.D. [address] [place] [phone] 08/02/2023 9:30 AM MEDIA INTERN Anticoagulation Visit Department of Anticoagulation in [place], [place] [address] [place] [phone] Stefan Salomon M.D. [address] [place] [phone] 09/24/2023 10:15 AM CDT Clinical Communication Virtual Review in [place], [place] 200 [place] [address] 09/25/2023 9:40 AM CDT Office Visit Department of Dermatology in [place], [place] [address] [place] [phone] Kira Hannah, HECTOR, C.N.P., M.S.N. [address] [place] [phone] Jordan Riojas M.D. [address] [place] [phone] documented as of this encounter Procedures Procedure [...] POCT ORDERABLES - DEVICE Performing Organization Address City/State/[facility] Co de Phone Number [facility] [address] [place] [phone], [facility] CNFL [facility] in [address] [address] documented in this encounter Visit Diagnoses Diagnosis Anticoagulant Therapy Mutation Factor V Leiden Heterozygous (HCC) Monitoring For Therapeutic Drug Therapy Thrombosis Deep Vein Personal History documented in this encounter Additional Health Concerns Assessment Noted Time PHQ-9 Depression Total Score: 0 07/09/19 23 8:29 AM MEDIA INTERN documented as of this encounter Care Teams Materials Intern Relationship Specialty Start Date End Date Stefan Salomon M.D. [address] [place] [phone] PCP - General Family Medicine 07/09/22 Anticoagulation Team 07/09/22 documented as of this encounter
--- OUTSIDE RECORDS SUMMARY | 2023-07-09 07:57 | XMS_ITS | Encounter Summary ---
Author Name Unknown Organization [facility] Address [address] [place] [address] Care Team Providers Care Rn Licensed Practical Name Role Phone Stefan Salomon M.D. Primary Care Provider [phone] Encounter Details Date Type Department Care Team (Latest Contact Info) Description 11/30/2022 7:50 AM CDT - 11/30/2022 11:59 PM CDT Hospital Encounter Department of Laboratory Medicine in [address] [phone] Stefan Salomon M.D. [address] [place] [phone] Anticoagulant Therapy; Mutation Factor V Leiden Heterozygous [...] How often do you attend sabianism or jainism serv ices? Never 07/09/2022 Do you belong [...] Answer Date Recorded PHQ-2 Score 0 07/09/2022 [facility] of Occupat ional Health - Occupational [...] file Gender Identity Male 07/02/2017 9:12 AM THEATER TECHNICIAN Sexual Orientation Straight 07/02/2017 9: 12 AM THEATER TECHNICIAN documented as of this encounter Medications [...] (Latest Contact Info) Description 08/02/2023 8:50 AM THEATER TECHNICIAN Appointment Department of Laboratory Medicine in [address] [phone] Stefan Salomon M.D. [address] [place] [phone] 08/02/2023 9:30 AM THEATER TECHNICIAN Anticoagulation Visit Department of Anticoagulation in [place], [place] [address] [place] [phone] Stefan Salomon M.D. [address] [place] [phone] 09/24/2023 10:15 AM CDT Clinical Communication Virtual Review in [place], [place] 200 [place] [address] 09/25/2023 9:40 AM CDT Office Visit Department of Dermatology in [place], [place] [address] [place] [phone] Kira Hannah, HECTOR, C.N.P., M.S.N. [address] [place] [phone] Jordan Riojas M.D. [address] [place] [phone] documented as of this encounter Procedures Procedure [...] POCT ORDERABLES - DEVICE Performing Organization Address City/State/[facility] Co de Phone Number [facility] [address] [place] [phone], [facility] CNFL [facility] in [address] [address] documented in this encounter Visit Diagnoses Diagnosis Anticoagulant Therapy Mutation Factor V Leiden Heterozygous (HCC) Monitoring For Therapeutic Drug Therapy Thrombosis Deep Vein Personal History documented in this encounter Additional Health Concerns Assessment Noted Time PHQ-9 Depression Total Score: 0 07/09/19 8:29 AM THEATER TECHNICIAN documented as of this encounter Care Teams Rn Licensed Practical Relationship Specialty Start Date End Date Stefan Salomon M.D. [address] [place] [phone] PCP - General Family Medicine 07/09/22 Anticoagulation Team 07/09/22 documented as of this encounter
--- OUTSIDE RECORDS SUMMARY | 2023-07-09 07:57 | XMS_ITS | Encounter Summary ---
Author Name Unknown Organization [facility] Address [address] [place] [address] Care Team Providers Care Search Engine Optimization Strategist Name Role Phone Stefan Salomon M.D. Primary Care Provider [phone] Reason for Visit * Outpatient (Routine) - Canceled Specialty Diagnoses / Procedures Referred By Contdayana t Referred To Contact Anticoagulation Yue Alonso M.D. [address] [place] [address] [facility] Region Referral ID Status Reason Start Date Expiration Date V isits Requested Visits Authorized [id number] Canceled 11/14/2021 11/14/[phone] Encounter Details Date Type Department Care Team (Latest Contact Info) Description 10/26/2022 9:30 AM CDT Anticoagulation Visit Department of Anticoagulation in [place], [place] [address] [place] [phone] Yue Alonso M.D. [address] [place] [phone] Anticoagulant Therapy (Primary Dx); Mutation [...] How often do you attend rastafari or taoism serv ices? Never 07/09/2022 Do [...] Answer Date Recorded PHQ-2 Score 0 07/09/2022 [facility] [place] of Occupat ional Health - Occupational Stress [...] file Gender Identity Male 07/02/2017 9:12 AM AFRICANA STUDIES PROFESSOR Sexual Orientation Straight 07/02/2017 9: 12 AM AFRICANA STUDIES PROFESSOR documented as of this encounter Progress Notes [...] (Latest Contact Info) Description 08/02/2023 8:50 AM AFRICANA STUDIES PROFESSOR Appointment Department of Laboratory Medicine in [address] [phone] Stefan Salomon M.D. [address] [place] [phone] 08/02/2023 9:30 AM AFRICANA STUDIES PROFESSOR Anticoagulation Visit Department of Anticoagulation in [address] [phone] Stefan Salomon M.D. [address] [place] [phone] 09/24/2023 10:15 AM CDT Clinical Communication Virtual Review in [place], [place] 200 [place] [address] 09/25/2023 9:40 AM CDT Office Visit Department of Dermatology in [place], [place] [address] [place] [phone] Kira Hannah, FLY MAKER, C.N.P., M.S.N. [address] [place] [phone] Jordan Riojas M.D. [address] [place] [phone] documented as of this encounter Results * [...] Salomon M.D. LAB POCT ORDERABLES - DEVICE [facility] [address] [place] [phone], [facility] CNFL [facility] in [address] [address] documented in this encounter Visit Diagnoses Diagnosis Anticoagulant Therapy- Primary Mutation Factor V Leiden Heterozygous (HCC) Monitoring For Therapeutic Drug Therapy Thrombosis Deep Vein Personal History documented in this encounter Additional Health Concerns Assessment Noted Time PHQ-9 Depression Total Score: 0 07/09/19 23 8:29 AM AFRICANA STUDIES PROFESSOR documented as of this encounter Care Teams Search Engine Optimization Strategist Relationship Specialty Start Date End Date Stefan Salomon M.D. [address] [place] [phone] PCP - General Family Medicine 07/09/22 Anticoagulation Team 07/09/22 documented as of this encounter
--- OUTSIDE RECORDS SUMMARY | 2023-07-09 07:57 | XMS_ITS | Encounter Summary ---
Author Name Unknown Organization [facility] Address [address] [place] [address] Care Team Providers Care Compensation Supervisor Name Role Phone Stefan Salomon M.D. Primary Care Provider [phone] Reason for Visit * Outpatient (Routine) - Canceled Specialty Diagnoses / Procedures Referred By Contdayana t Referred To Contact Anticoagulation Yue Alonso M.D. [address] [place] [phone] [facility] Region Referral ID Status Reason Start Date Expiration Date V isits Requested Visits Authorized [id number] Canceled 11/14/2021 11/14/[phone] Encounter Details Date Type Department Care Team (Latest Contact Info) Description 12/11/2022 2:30 PM CDT Anticoagulation Visit Department of Anticoagulation in [place], [place] [address] [place] [address] Yue Alonso M.D. [address] [place] [phone] Anticoagulant Therapy (Primary Dx); Mutation [...] week 07/09/2022 How often do you attend taoism or anabaptism serv ices? Never 07/09/2022 Do you belong to any clubs o r organizations such as taoism groups, unions, fraternal or athletic groups, or [...] Answer Date Recorded PHQ-2 Score 0 07/09/2022 [facility] [place] of Occupat ional Health - Occupational Stress [...] file Gender Identity Male 07/02/2017 9:12 AM ANIMAL LABORATORY HELPER Sexual Orientation Straight 07/02/2017 9: 12 AM ANIMAL LABORATORY HELPER documented as of this encounter Progress Notes [...] (Latest Contact Info) Description 08/02/2023 8:50 AM ANIMAL LABORATORY HELPER Appointment Department of Laboratory Medicine in [address] [phone] Stefan Salomon M.D. [address] [place] [phone] 08/02/2023 9:30 AM ANIMAL LABORATORY HELPER Anticoagulation Visit Department of Anticoagulation in [place], [place] [address] [place] [phone] Stefan Salomon M.D. [address] [place] [phone] 09/24/2023 10:15 AM CDT Clinical Communication Virtual Review in [place], [place] 200 [place] [address] 09/25/2023 9:40 AM CDT Office Visit Department of Dermatology in [place], [place] [address] [place] [phone] Kira Hannah APRN, C.N.P., M.S.N. [address] [place] [phone] Jordan Riojas M.D. [address] [place] [phone] documented as of this encounter Results * [...] POCT ORDERABLES - DEVICE Performing Organization Address [facility]/State/ZIP Co de Phone Number [facility] [address] [place] [address], [facility] CNFL [facility] in [address] [address] documented in this encounter Visit Diagnoses Diagnosis Anticoagulant Therapy- Primary Mutation Factor V Leiden Heterozygous (HCC) Monitoring For Therapeutic Drug Therapy Thrombosis Deep Vein Personal History documented in this encounter Additional Health Concerns Assessment Noted Time PHQ-9 Depression Total Score: 0 07/09/19 23 8:29 AM ANIMAL LABORATORY HELPER documented as of this encounter Care Teams Compensation Supervisor Relationship Specialty Start Date End Date Stefan Salomon M.D. [address] [place] [phone] PCP - General Family Medicine 07/09/22 Anticoagulation Team 07/09/22 documented as of this encounter
--- OUTSIDE RECORDS SUMMARY | 2023-07-09 07:57 | XMS_ITS | Encounter Summary ---
Author Name Unknown Organization [facility] Address [address] [place] [address] Care Team Providers Care Airfreight Loading Supervisor Name Role Phone Stefan Salomon M.D. Primary Care Provider [phone] Reason for Visit * Reason Comments Med Refill Encounter Details Date Type Department Care Team (Late st Contact Info) Description 2022 Refill Department of Family Medicine, [employer], in [address] [phone] Stefan Salomon M.D. [address] [place] [phone] Med Refill Social History Tobacco Use [...] How often do you attend yarsanism or hoahaoism serv ices? Never 07/09/2022 Do [...] Answer Date Recorded PHQ-2 Score 0 07/09/2022 [facility] of Occupat ional Health - [...] file Gender Identity Male 07/02/2017 9:12 AM FPGA DESIGN ENGINEER Sexual Orientation Straight 07/02/2017 9: 12 AM FPGA DESIGN ENGINEER documented as of this encounter Miscellaneous Notes [...] Indications: Chronic Pain/Nonacute Pain. Pharmacy (include location): [facility] [address] [place] [address] documented in this encounter Plan of Treatment Upcoming Encounters Date Type Department Care Team (Latest Contact Info) Description 08/02/2023 8:50 AM FPGA DESIGN ENGINEER Appointment Department of Laboratory Medicine in [address] [phone] Stefan Salomon M.D. [address] [place] [phone] 08/02/2023 9:30 AM FPGA DESIGN ENGINEER Anticoagulation Visit Department of Anticoagulation in [address] [phone] Stefan Salomon M.D. [address] [place] [phone] 09/24/2023 10:15 AM CDT Clinical Communication Virtual Review in [address] [address] 09/25/2023 9:40 AM CDT Office Visit Department of Dermatology in [place], [place] [address] [place] [phone] Kira Hannah APRN, C.N.P., M.S.N. 200 [place] [phone] Jordan Riojas M.D. 200 [place] [phone] documented as of this encounter Visit Diagnoses Diagnosis Chronic Pain Syndrome Degeneration Disc Cervical Polyarthralgia documented in this encounter Additional Health Concerns Assessment Noted Time PHQ-9 Depression Total Score: 0 07/09/19 23 8:29 AM FPGA DESIGN ENGINEER documented as of this encounter Care Teams Airfreight Loading Supervisor Relationship Specialty Start Date End Date Stefan Salomon M.D. [address] [place] [phone] PCP - General Family Medicine 07/09/22 Anticoagulation Team 07/09/22 documented as of this encounter
--- OUTSIDE RECORDS SUMMARY | 2023-07-09 07:57 | XMS_ITS | Encounter Summary ---
Author Name Unknown Organization [facility] Address [address] [place] [address] Care Team Providers Care Dog Races Manager Name Role Phone Stefan Salomon M.D. Primary Care Provider [phone] Encounter Details Date Type Department Care Team (Latest Contact Info) Description 12/21/2022 1:29 PM CDT - 12/21/2022 11:59 PM CDT Hospital Encounter Department of Laboratory Medicine in [address] [phone] Stefan Salomon M.D. [address] [place] [phone] Anticoagulant Therapy; Mutation Factor V Leiden Heterozygous [...] week 07/09/2022 How often do you attend confucianist or yazdanism serv ices? Never 07/09/2022 Do you belong to any clubs o r organizations such as confucianist groups, unions, fraternal or athletic groups, or [...] PHQ-2 Score 0 07/09/2022 [facility] of Occupat ional Health - Occupational [...] file Gender Identity Male 07/02/2017 9:12 AM TANK PUMPER PANELBOARD Sexual Orientation Straight 07/02/2017 9: 12 AM TANK PUMPER PANELBOARD documented as of this encounter Medications at [...] (Latest Contact Info) Description 08/02/2023 8:50 AM TANK PUMPER PANELBOARD Appointment Department of Laboratory Medicine in [address] [phone] Stefan Salomon M.D. [address] [place] [address] [phone] 08/02/2023 9:30 AM TANK PUMPER PANELBOARD Anticoagulation Visit Department of Anticoagulation in [place], [place] [address] [place] [phone] Stefan Salomon M.D. [address] [place] [address] [phone] 09/24/2023 10:15 AM CDT Clinical Communication Virtual Review in [place], [place] 200 [place] [address] 09/25/2023 9:40 AM CDT Office Visit Department of Dermatology in [place], [place] [address] [place] [phone] Kira Hannah, HECTOR, C.N.P., M.S.N. [address] [place] [phone] Jordan Riojas M.D. [address] [place] [phone] documented as of this encounter Procedures Procedure [...] ORDERABLES - DEVICE Performing Organization Address City/State/[facility] Co de Phone Number [facility] [address] [place] [address], [facility] CNFL [facility] in [address] [address] documented in this encounter Visit Diagnoses Diagnosis Anticoagulant Therapy Mutation Factor V Leiden Heterozygous (HCC) Monitoring For Therapeutic Drug Therapy Thrombosis Deep Vein Personal History documented in this encounter Additional Health Concerns Assessment Noted Time PHQ-9 Depression Total Score: 0 07/09/19 23 8:29 AM TANK PUMPER PANELBOARD documented as of this encounter Care Teams Dog Races Manager Relationship Specialty Start Date End Date Stefan Salomon M.D. [address] [place] [phone] PCP - General Family Medicine 07/09/22 Anticoagulation Team 07/09/22 documented as of this encounter
--- OUTSIDE RECORDS SUMMARY | 2023-07-09 07:57 | XMS_ITS | Encounter Summary ---
Author Name Unknown Organization [facility] Address [address] [place] [address] Care Team Providers Care Bee Robber Name Role Phone Stefan Salomon M.D. Primary Care Provider [phone] Reason for Visit * Outpatient (Routine) - Canceled Specialty Diagnoses / Procedures Referred By Contdayana t Referred To Contact Anticoagulation Yue Alonso M.D. [address] [place] [phone] [facility] Region Referral ID Status Reason Start Date Expiration Date V isits Requested Visits Authorized [id number] Canceled 11/14/2021 11/14/[phone] Encounter Details Date Type Department Care Team (Latest Contact Info) Description 11/30/2022 10:00 AM CDT Anticoagulation Visit Department of Anticoagulation in [place], [place] [address] [place] [address] Yue Alonso M.D. [address] [place] [phone] Anticoagulant Therapy (Primary Dx); Mutation [...] How often do you attend taoist or temple serv ices? Never 07/09/2022 Do [...] Answer Date Recorded PHQ-2 Score 0 07/09/2022 [facility] of Occupat ional Health - Occupational Stress [...] place to sleep or slept in a nursing home (including now)? No 07/09/2022 Depression Answer [...] file Gender Identity Male 07/02/2017 9:12 AM SOFTBALL UMPIRE Sexual Orientation Straight 07/02/2017 9: 12 AM SOFTBALL UMPIRE documented as of this encounter Patient Instructions [...] please call Primary Care Anticoagulation Program at [phone] from 7:30 am to 4:30 pm. Saturday-Saturday [...] if you start any herbal or other [id number] product (check with your doctor, a nurse, [...] (Latest Contact Info) Description 08/02/2023 8:50 AM SOFTBALL UMPIRE Appointment Department of Laboratory Medicine in [address] [phone] Stefan Salomon M.D. [address] [place] [address] [phone] 08/02/2023 9:30 AM SOFTBALL UMPIRE Anticoagulation Visit Department of Anticoagulation in [place], [place] [address] [place] [phone] Stefan Salomon M.D. [address] [place] [phone] 09/24/2023 10:15 AM CDT Clinical Communication Virtual Review in [place], [place] 200 [place] [address] 09/25/2023 9:40 AM CDT Office Visit Department of Dermatology in [place], [place] [address] [place] [phone] Kira Hannah, HECTOR, C.N.P., M.S.N. [address] [place] [phone] Jordan Riojas M.D. [address] [place] [phone] documented as of this encounter Results * [...] [facility] Co de Phone Number [facility] [address] [place] [phone], [facility] CNFL [facility] in [address] [address] documented in this encounter Visit Diagnoses Diagnosis Anticoagulant Therapy- Primary Mutation Factor V Leiden Heterozygous (HCC) Monitoring For Therapeutic Drug Therapy Thrombosis Deep Vein Personal History documented in this encounter Additional Health Concerns Assessment Noted Time PHQ-9 Depression Total Score: 0 07/09/19 23 8:29 AM SOFTBALL UMPIRE documented as of this encounter Care Teams Bee Robber Relationship Specialty Start Date End Date Stefan Salomon M.D. [address] [place] [phone] PCP - General Family Medicine 07/09/22 Anticoagulation Team 07/09/22 documented as of this encounter
--- OUTSIDE RECORDS SUMMARY | 2023-07-09 07:57 | XMS_ITS | Encounter Summary ---
Author Name Unknown Organization [facility] Address [address] [place] [address] Care Team Providers Care Tube Lancer Name Role Phone Stefan Salomon M.D. Primary Care Provider [phone] Reason for Visit * Reason Onset Date Comments Anticoagulation 10/26/2022 Home Monitor Encounter Details Date Type Department Care Team (Latest Contact Info) Description 10/26/2022 Clinical Communication Department of Anticoagulation in [place], [place] [address] [place] [phone] Hina Coker RCotyN. [address] [place] [address] Anticoagulation (Home Monitor) Social History Tobacco Use [...] week 07/09/2022 How often do you attend gnosticist or scientologist serv ices? Never 07/09/2022 Do you belong to any clubs o r organizations such as gnosticist groups, unions, fraternal or athletic groups, or [...] Answer Date Recorded PHQ-2 Score 0 07/09/2022 [facility] of Occupat ional Health - Occupational Stress [...] file Gender Identity Male 07/02/2017 9:12 AM VICE PRESIDENT BIOSTATISTICS Sexual Orientation Straight 07/02/2017 9: 12 AM VICE PRESIDENT BIOSTATISTICS documented as of this encounter Miscellaneous Notes [...] in thehome. This education program occurs in [facility] the [facility]. If patient has antiphospholipid syndrome, pharmacist has reviewed and approved patient for home INR If patient is enrolled in hospice, anticoagulation medical intern has reviewed and approved patient for home INR Exclusion Criteria Patient or caregiver unwilling/unable to perform INR testing (e.g., mobility, dexterity, or cognitive barriers) Patient or caregiver demonstrates treatment-interfering behavior (e.g., over- or under-engagement Patient meets all inclusion criteria and no exclusion criteria is present. Patient given [facility] Primary Care Anticoagulation Program: Important Expectations to Consider before Enrolling in Self INR Testing which outlines patient responsibilities when joining program and includes billing codes to check insurance coverage. Patient also provided with Self INR Testing Pamphlet ([id number]) and [facility] Primary Care Anticoagulation Program: Self INR Testing Patient Expectations document documented in this encounter Plan of Treatment Upcoming Encounters Date Type Department Care Team (Latest Contact Info) Description 08/02/2023 8:50 AM VICE PRESIDENT BIOSTATISTICS Appointment Department of Laboratory Medicine in [address] [phone] Stefan Salomon M.D. [address] [place] [phone] 08/02/2023 9:30 AM VICE PRESIDENT BIOSTATISTICS Anticoagulation Visit Department of Anticoagulation in [place], [place] [address] [place] [phone] Stefan Salomon M.D. [address] [place] [phone] 09/24/2023 10:15 AM CDT Clinical Communication Virtual Review in [place], [place] [address] [place] [address] 09/25/2023 9:40 AM CDT Office Visit Department of Dermatology in [place], [place] [address] [place] [phone] Kira Hannah APRN, C.N.P., M.S.N. [address] [place] [phone] Jordan Riojas M.D. [address] [place] [phone] documented as of this encounter Visit Diagnoses Not on filedocumented in this encounter Additional Health Concerns Assessment Noted Time PHQ-9 Depression Total Score: 0 07/09/19 23 8:29 AM VICE PRESIDENT BIOSTATISTICS documented as of this encounter Care Teams Tube Lancer Relationship Specialty Start Date End Date Stefan Salomon M.D. [address] [place] [address] [phone] PCP - General Family Medicine 07/09/22 Anticoagulation Team 07/09/22 documented as of this encounter
--- OUTSIDE RECORDS SUMMARY | 2023-07-09 07:57 | XMS_ITS | Encounter Summary ---
Author Name Unknown Organization [facility] Address [address] [place] [address] Care Team Providers Care Automotive General Manager Name Role Phone Stefan Salomon M.D. Primary Care Provider [phone] Encounter Details Date Type Department Care Team (Latest Contact Info) Description 12/14/2022 7:36 AM CDT - 12/14/2022 11:59 PM CDT Hospital Encounter Department of Laboratory Medicine in [address] [phone] Stefan Salomon M.D. [address] [place] [address] [phone] Anticoagulant Therapy; Mutation Factor V Leiden Heterozygous [...] week 07/09/2022 How often do you attend oriental orthodox or gnosticist serv ices? Never 07/09/2022 Do [...] file Gender Identity Male 07/02/2017 9:12 AM HIDE INSPECTOR AND SORTER Sexual Orientation Straight 07/02/2017 9: 12 AM HIDE INSPECTOR AND SORTER documented as of this encounter Medications [...] (Latest Contact Info) Description 08/02/2023 8:50 AM HIDE INSPECTOR AND SORTER Appointment Department of Laboratory Medicine in [address] [phone] Stefan Salomon M.D. [address] [place] [address] [phone] 08/02/2023 9:30 AM HIDE INSPECTOR AND SORTER Anticoagulation Visit Department of Anticoagulation in [place], [place] [address] [place] [phone] Stefan Salomon M.D. [address] [place] [address] [phone] 09/24/2023 10:15 AM CDT Clinical Communication Virtual Review in [place], [place] 200 [place] [address] 09/25/2023 9:40 AM CDT Office Visit Department of Dermatology in [place], [place] [address] [place] [phone] Kira Hannah, HECTOR, C.N.P., M.S.N. [address] [place] [phone] Jordan Riojas M.D. [address] [place] [phone] documented as of this encounter Procedures Procedure [...] POCT ORDERABLES - DEVICE Performing Organization Address City/State/[facility] [[email or web address]] Co de Phone Number [facility] [address] [place] [address], [facility] CNFL [facility] in [address] [address] documented in this encounter Visit Diagnoses Diagnosis Anticoagulant Therapy Mutation Factor V Leiden Heterozygous (HCC) Monitoring For Therapeutic Drug Therapy Thrombosis Deep Vein Personal History documented in this encounter Additional Health Concerns Assessment Noted Time PHQ-9 Depression Total Score: 0 07/09/19 23 8:29 AM HIDE INSPECTOR AND SORTER documented as of this encounter Care Teams Automotive General Manager Relationship Specialty Start Date End Date Stefan Salomon M.D. [address] [place] [phone] PCP - General Family Medicine 07/09/22 Anticoagulation Team 07/09/22 documented as of this encounter
--- OUTSIDE RECORDS SUMMARY | 2023-07-09 07:58 | XMS_ITS | Encounter Summary ---
Author Name Unknown Organization [facility] Address [address] [place] [address] Care Team Providers Care Electric Fork Operator Name Role Phone Stefan Salomon M.D. Primary Care Provider [phone] Reason for Visit * Reason Comments Med Refill Encounter Details Date Type Department Care Team (Late st Contact Info) Description 10/02/2022 Refill Department of Family Medicine, [facility], in [address] [phone] Stefan Salomon M.D. [address] [place] [phone] Med Refill Social History Tobacco Use [...] How often do you attend quaker or holiness serv ices? Never 07/09/2022 Do you belong [...] file Gender Identity Male 07/02/2017 9:12 AM HEALTHCARE ARCHITECT Sexual Orientation Straight 07/02/2017 9: 12 AM HEALTHCARE ARCHITECT documented as of this encounter Miscellaneous Notes [...] Provider: Stefan Salomon M.D. Pharmacy (include location): [facility] documented in this encounter Plan of Treatment Upcoming Encounters Date Type Department Care Team (Latest Contact Info) Description 08/02/2023 8:50 AM HEALTHCARE ARCHITECT Appointment Department of Laboratory Medicine in [address] [phone] Stefan Salomon M.D. [address] [place] [phone] 08/02/2023 9:30 AM HEALTHCARE ARCHITECT Anticoagulation Visit Department of Anticoagulation in [address] [phone] Stefan Salomon M.D. [address] [place] [phone] 09/24/2023 10:15 AM CDT Clinical Communication Virtual Review in [place], [place] 200 [place] [address] 09/25/2023 9:40 AM CDT Office Visit Department of Dermatology in [place], [place] [address] [place] [phone] Kira Hannah APRN, C.N.P., M.S.N. [address] [place] [phone] Jordan Riojas M.D. [address] [place] [phone] documented as of this encounter Visit Diagnoses Diagnosis Chronic Pain Syndrome Polyarthralgia Degeneration Disc Cervical documented in this encounter Additional Health Concerns Assessment Noted Time PHQ-9 Depression Total Score: 0 07/09/19 23 8:29 AM HEALTHCARE ARCHITECT documented as of this encounter Care Teams Electric Fork Operator Relationship Specialty Start Date End Date Stefan Salomon M.D. [address] [place] [phone] PCP - General Family Medicine 07/09/22 Anticoagulation Team 07/09/22 documented as of this encounter
--- OUTSIDE RECORDS SUMMARY | 2023-07-09 07:58 | XMS_ITS | Encounter Summary ---
Author Name Unknown Organization [facility] Address [address] [place] [address] Care Team Providers Care 3D Modeler Name Role Phone Stefan Salomon M.D. Primary Care Provider [phone] Reason for Visit * Reason Comments Med Refill Encounter Details Date Type Department Care Team (Late st Contact Info) Description 08/28/2022 Refill Department of Family Medicine, [facility], in [address] [phone] Stefan Salomon M.D. [address] [place] [phone] Med Refill Social History Tobacco Use Types [...] week 07/09/2022 How often do you attend sabianist or pentecostal serv ices? Never 07/09/2022 Do you belong to any clubs o r organizations such as sabianist groups, unions, fraternal or athletic groups, or [...] 07/09/2022 [facility] of Occupat ional Health - [...] file Gender Identity Male 07/02/2017 9:12 AM DIAMOND DRILLER HELPER Sexual Orientation Straight 07/02/2017 9: 12 AM DIAMOND DRILLER HELPER documented as of this encounter Miscellaneous [...] Provider: Stefan Salomon M.D. Pharmacy (include location): [facility] [address] [place] [address] (Pharmacy) [phone] documented in this encounter Plan of Treatment Upcoming Encounters Date Type Department Care Team (Latest Contact Info) Description 08/02/2023 8:50 AM DIAMOND DRILLER HELPER Appointment Department of Laboratory Medicine in [address] [phone] Stefan Salomon M.D. [address] [place] [phone] 08/02/2023 9:30 AM DIAMOND DRILLER HELPER Anticoagulation Visit Department of Anticoagulation in [address] [phone] Stefan Salomon M.D. [address] [place] [phone] 09/24/2023 10:15 AM CDT Clinical Communication Virtual Review in [place], [place] 200 [place] [address] 09/25/2023 9:40 AM CDT Office Visit Department of Dermatology in [place], [place] [address] [place] [phone] Kira Hannah, HETCOR, C.N.P., M.S.N. [address] [place] [phone] Jordan Riojas M.D. [address] [place] [phone] documented as of this encounter Visit Diagnoses Diagnosis Chronic Pain Syndrome Polyarthralgia Degeneration Disc Cervical documented in this encounter Additional Health Concerns Assessment Noted Time PHQ-9 Depression Total Score: 0 07/09/19 23 8:29 AM DIAMOND DRILLER HELPER documented as of this encounter Care Teams 3D Modeler Relationship Specialty Start Date End Date Stefan Salomon M.D. [address] [phone] PCP - General Family Medicine 07/09/22 Anticoagulation Team 07/09/22 documented as of this encounter
--- OUTSIDE RECORDS SUMMARY | 2023-07-09 07:58 | XMS_ITS | Encounter Summary ---
Author Name Unknown Organization [facility] Address [address] [place] [address] Care Team Providers Care Exhaust And Muffler Repairer Name Role Phone Stefan Salomon M.D. Primary Care Provider [phone] Encounter Details Date Type Department Care Team (Latest Contact Info) Description 10/26/2022 7:55 AM CDT - 10/26/2022 11:59 PM CDT Hospital Encounter Department of Laboratory Medicine in [address] [phone] Stefan Salomon M.D. [address] [place] [address] [phone] Anticoagulant Therapy; Mutation Factor V Leiden Heterozygous [...] How often do you attend temple or quaker serv ices? Never 07/09/2022 Do you belong [...] Answer Date Recorded PHQ-2 Score 0 07/09/2022 [facility] of Occupat ional Health - [...] file Gender Identity Male 07/02/2017 9:12 AM DISABILITY INSURANCE CLAIM EXAMINER Sexual Orientation Straight 07/02/2017 9: 12 AM DISABILITY INSURANCE CLAIM EXAMINER documented as of this encounter Medications at [...] Pain/Nonacute Pain. 240 tablet 0 10/04/2022 10/31/2022 zolpidem (AMBIEN) 5 mg tablet TAKE ONE TABLET BY MOUTH AT BEDTIME NEEDED FOR SLEEP 30 tablet 0 09/13/2022 06/12/2023 documented as of this encounter Plan of Treatment Upcoming Encounters Date Type Department Care Team (Latest Contact Info) Description 08/02/2023 8:50 AM DISABILITY INSURANCE CLAIM EXAMINER Appointment Department of Laboratory Medicine in [address] [phone] Stefan Salomon M.D. [address] [place] [phone] 08/02/2023 9:30 AM DISABILITY INSURANCE CLAIM EXAMINER Anticoagulation Visit Department of Anticoagulation in [place], [place] [address] [place] [phone] Stefan Salomon M.D. [address] [place] [phone] 09/24/2023 10:15 AM CDT Clinical Communication Virtual Review in [place], [place] 200 [place] [address] 09/25/2023 9:40 AM CDT Office Visit Department of Dermatology in [place], [place] [address] [place] [phone] Kira Hannah, HECTOR, C.N.P., M.S.N. [address] [place] [phone] Jordan Riojas M.D. [address] [place] [phone] documented as of this encounter Procedures Procedure [...] Rals LAB POCT ORDERABLES - DEVICE [facility] [address] [place] [address], [place] [facility] [address] [address] * INR Reflex, POCT, B (10/26/2022 7:58 AM CDT) INR Reflex, POCT, B Collected DEFAULT 10/26/2022 7:58 AM CDT [facility] Blood (Blood, Capillary) 10/26/2022 7:58 AM CDT 10/26/2022 7:58 AM CDT Stefan Salomon M.D. LAB POCT ORDERABLES - DEVICE [facility] [address] [place] [address], [place] [facility] in [address] [address] documented in this encounter Visit Diagnoses Diagnosis Anticoagulant Therapy Mutation Factor V Leiden Heterozygous (HCC) Monitoring For Therapeutic Drug Therapy Thrombosis Deep Vein Personal History documented in this encounter Additional Health Concerns Assessment Noted Time PHQ-9 Depression Total Score: 0 07/09/19 23 8:29 AM DISABILITY INSURANCE CLAIM EXAMINER documented as of this encounter Care Teams Exhaust And Muffler Repairer Relationship Specialty Start Date End Date Stefan Salomon M.D. [address] [place] [phone] PCP - General Family Medicine 07/09/22 Anticoagulation Team 07/09/22 documented as of this encounter
--- OUTSIDE RECORDS SUMMARY | 2023-07-09 07:58 | XMS_ITS | Encounter Summary ---
Author Name Unknown Organization [facility] Address [address] [place] [address] Care Team Providers Care Post Splitter Name Role Phone Stefan Salomon M.D. Primary Care Provider [phone] Encounter Details Date Type Department Care Team (Latest Contact Info) Description 10/16/2022 7:53 AM CDT - 10/16/2022 11:59 PM CDT Hospital Encounter Department of Laboratory Medicine in [address] [phone] Stefan Salomon M.D. [address] [place] [phone] Anticoagulant Therapy; Mutation Factor V Leiden Heterozygous [...] How often do you attend taoist or jainism serv ices? Never 07/09/2022 Do [...] file Gender Identity Male 07/02/2017 9:12 AM ORDER PACKER Sexual Orientation Straight 07/02/2017 9: 12 AM ORDER PACKER documented as of this encounter Medications at [...] (Latest Contact Info) Description 08/02/2023 8:50 AM ORDER PACKER Appointment Department of Laboratory Medicine in [address] [phone] Stefan Salomon M.D. [address] [place] [phone] 08/02/2023 9:30 AM ORDER PACKER Anticoagulation Visit Department of Anticoagulation in [place], [place] [address] [place] [phone] Stefan Salomon M.D. [address] [place] [phone] 09/24/2023 10:15 AM CDT Clinical Communication Virtual Review in [place], [place] 200 [place] [address] 09/25/2023 9:40 AM CDT Office Visit Department of Dermatology in [place], [place] [address] [place] [phone] Kira Hannah, HECTOR, C.N.P., M.S.N. [address] [place] [phone] Jordan Riojas M.D. [address] [place] [phone] documented as of this encounter Procedures Procedure [...] B Collected DEFAULT 10/16/2022 8:03 AM CDT CNFL Blood (Blood, Capillary) 10/16/2022 8:02 AM CDT 10/16/2022 8:03 AM CDT Stefan Salomon M.D. LAB POCT ORDERABLES - DEVICE Performing Organization Address [facility] Co de Phone Number [address] [address], [address] [address] * INR Reflex, POCT, B (10/16/2022 8:01 AM CDT) INR Reflex, POCT, B 2.0 10/16/2022 8:01 AM CDT [facility] Comment: ----ADDITIONAL INFORMATION---- Standard intensity warfarin therapeutic range: 2.0 to 3.0 ?? High intensity warfarin therapeutic range: 2.5 to 3.5 Blood 10/16/2022 8:01 AM CDT 10/16/2022 8:03 AM CDT Generic Rals LAB POCT ORDERABLES - DEVICE Performing Organization Address [facility] Co de Phone Number [address] [address], [address] [address] documented in this encounter Visit Diagnoses Diagnosis Anticoagulant Therapy Mutation Factor V Leiden Heterozygous (HCC) Monitoring For Therapeutic Drug Therapy Thrombosis Deep Vein Personal History documented in this encounter Additional Health Concerns Assessment Noted Time PHQ-9 Depression Total Score: 0 07/09/19 23 8:29 AM ORDER PACKER documented as of this encounter Care Teams Post Splitter Relationship Specialty Start Date End Date Stefan Salomon M.D. [address] [place] [phone] PCP - General Family Medicine 07/09/22 Anticoagulation Team 07/09/22 documented as of this encounter
--- OUTSIDE RECORDS SUMMARY | 2023-07-09 07:58 | XMS_ITS | Encounter Summary ---
Author Name Unknown Organization [facility] Address [address] [place] [address] Care Team Providers Care Security Engineer Name Role Phone Stefan Salomon M.D. Primary Care Provider [phone] Encounter Details Date Type Department Care Team (Latest Contact Info) Description 09/13/2022 3:00 PM CDT - 09/13/2022 11:59 PM CDT Hospital Encounter Department of Laboratory Medicine in [address] [phone] Stefan Salomon M.D. [address] [place] [phone] Anticoagulant Therapy; Mutation Factor V Leiden Heterozygous (HCC); Monitoring For Therapeutic Drug Therapy; Thrombosis Deep Vein Personal History; Family Welfare Social Work Professor (Current) Anticoagulant Treatment Discharge Disposition: Home or [...] How often do you attend yazidi or zoroastrianism serv ices? Never 07/09/2022 Do [...] file Gender Identity Male 07/02/2017 9:12 AM FUNDS DEVELOPMENT DIRECTOR Sexual Orientation Straight 07/02/2017 9: 12 AM FUNDS DEVELOPMENT DIRECTOR documented as of this encounter Medications at [...] (Latest Contact Info) Description 08/02/2023 8:50 AM FUNDS DEVELOPMENT DIRECTOR Appointment Department of Laboratory Medicine in [address] [phone] Stefan Salomon M.D. [address] [place] [phone] 08/02/2023 9:30 AM FUNDS DEVELOPMENT DIRECTOR Anticoagulation Visit Department of Anticoagulation in [address] [phone] Stefan Salomon M.D. [address] [place] [phone] 09/24/2023 10:15 AM CDT Clinical Communication Virtual Review in [place], [place] 200 [place] [address] 09/25/2023 9:40 AM CDT Office Visit Department of Dermatology in [place], [place] [address] [place] [phone] Kira Hannah, HECTOR, C.N.P., M.S.N. [address] [place] [phone] Jordan Riojas M.D. [address] [place] [phone] documented as of this encounter Procedures Procedure Name Priority Date/Time Associated Diagnosis Comments INR REFLEX, POCT, B Routine 09/13/2022 3:53 PM CDT Anticoagulant Therapy Mutation Factor V Leiden Heterozygous (HCC) Monitoring For Therapeutic Drug Therapy Thrombosis Deep Vein Personal History [facility] (Current) Anticoagulant Treatment INR REFLEX, POCT, B Routine 09/13/2022 3:52 PM CDT documented in this encounter Results * INR Reflex, POCT, B (09/13/2022 3:53 PM CDT) INR Reflex, POCT, B Collected DEFAULT 09/13/2022 3:55 PM CDT CNFL Blood (Blood, Capillary) 09/13/2022 3:53 PM CDT 09/13/2022 3:55 PM CDT Stefan Salomon M.D. LAB POCT ORDERABLES - DEVICE Performing Organization Address [facility] Co de Phone Number [address] [address], [address] [address] * INR Reflex, POCT, B (09/13/2022 3:52 PM CDT) INR Reflex, POCT, B 3.1 09/13/2022 3:52 PM CDT [facility] Comment: ----ADDITIONAL INFORMATION---- Standard intensity warfarin therapeutic range: 2.0 to 3.0 ?? High intensity warfarin therapeutic range: 2.5 to 3.5 Blood 09/13/2022 3:52 PM CDT 09/13/2022 3:54 PM CDT Generic Rals LAB POCT ORDERABLES - DEVICE Performing Organization Address City/[facility]/ZIP Co de Phone Number [facility] [address] [place] [address], [address] [address] documented in this encounter Visit Diagnoses Diagnosis Anticoagulant Therapy Mutation Factor V Leiden Heterozygous (HCC) Monitoring For Therapeutic Drug Therapy Thrombosis Deep Vein Personal History Family Welfare Social Work Professor (Current) Anticoagulant Treatment documented in this encounter Additional Health Concerns Assessment Noted Time PHQ-9 Depression Total Score: 0 07/09/19 23 8:29 AM FUNDS DEVELOPMENT DIRECTOR documented as of this encounter Care Teams Security Engineer Relationship Specialty Start Date End Date Stefan Salomon M.D. [address] [place] [phone] PCP - General Family Medicine 07/09/22 Anticoagulation Team 07/09/22 documented as of this encounter
--- OUTSIDE RECORDS SUMMARY | 2023-07-09 07:58 | XMS_ITS | Encounter Summary ---
Author Name Unknown Organization [facility] Address [address] [place] [address] Care Team Providers Care Cargo Inspector Name Role Phone Stefan Salomon M.D. Primary Care Provider [phone] Reason for Visit * Outpatient (Routine) - Canceled Specialty Diagnoses / Procedures Referred By Contdayana t Referred To Contact Anticoagulation Yue Alonso M.D. [address] [place] [phone] [facility] Region Referral ID Status Reason Start Date Expiration Date V isits Requested Visits Authorized [id number] Canceled 11/09/2021 11/09/[phone] Encounter Details Date Type Department Care Team (Latest Contact Info) Description 09/14/2022 8:00 AM CDT Anticoagulation Visit Department of Anticoagulation in [place], [place] [address] [place] [address] Yue Alonso M.D. [address] [place] [phone] Anticoagulant Therapy (Primary Dx); Mutation [...] How often do you attend bahai or adventist serv ices? Never 07/09/2022 Do [...] Answer Date Recorded PHQ-2 Score 0 07/09/2022 [facility] [place] of Occupat ional Health - Occupational Stress [...] file Gender Identity Male 07/02/2017 9:12 AM CHILD PROTECTIVE INVESTIGATOR Sexual Orientation Straight 07/02/2017 9: 12 AM CHILD PROTECTIVE INVESTIGATOR documented as of this encounter Patient Instructions [...] please call Primary Care Anticoagulation Program at [phone] from 7:30 am to 4:30 pm. Saturday-Saturday [...] if you start any herbal or other rnoi-uee-iaefjuq product (check with your doctor, a nurse, [...] (Latest Contact Info) Description 08/02/2023 8:50 AM CHILD PROTECTIVE INVESTIGATOR Appointment Department of Laboratory Medicine in [address] [phone] Stefan Salomon M.D. [address] [place] [phone] 08/02/2023 9:30 AM CHILD PROTECTIVE INVESTIGATOR Anticoagulation Visit Department of Anticoagulation in [place], [place] [address] [place] [phone] Stefan Salomon M.D. [address] [place] [phone] 09/24/2023 10:15 AM CDT Clinical Communication Virtual Review in [place], [place] 200 [place] [address] 09/25/2023 9:40 AM CDT Office Visit Department of Dermatology in [place], [place] [address] [place] [phone] Kira Hannah, HECTOR, C.N.P., M.S.N. [address] [place] [phone] Jordan Riojas M.D. [address] [place] [phone] documented as of this encounter Results * INR Reflex, POCT, B (10/11/2022 8:36 AM CDT) INR Reflex, POCT, B Collected DEFAULT 10/11/2022 8:37 AM CDT [facility] Blood (Blood, Capillary) 10/11/2022 8:36 AM CDT 10/11/2022 8:37 AM CDT Yue Alonso M.D. LAB POCT ORDERABLES - DEVICE [facility] [address] [place] [phone], [place] CNFL [facility] in [address] [address] documented in this encounter Visit Diagnoses Diagnosis Anticoagulant Therapy- Primary Mutation Factor V Leiden Heterozygous (HCC) Monitoring For Therapeutic Drug Therapy Thrombosis Deep Vein Personal History documented in this encounter Additional Health Concerns Assessment Noted Time PHQ-9 Depression Total Score: 0 07/09/19 23 8:29 AM CHILD PROTECTIVE INVESTIGATOR documented as of this encounter Care Teams Cargo Inspector Relationship Specialty Start Date End Date Stefan Salomon M.D. [address] [place] [phone] PCP - General Family Medicine 07/09/22 Anticoagulation Team 07/09/22 documented as of this encounter
--- OUTSIDE RECORDS SUMMARY | 2023-07-09 07:58 | XMS_ITS | Encounter Summary ---
Author Name Unknown Organization [facility] Address [address] [place] [address] Care Team Providers Care Dining Service Worker Name Role Phone Stefan Salomon M.D. Primary Care Provider [phone] Reason for Visit * Outpatient (Routine) - Canceled Specialty Diagnoses / Procedures Referred By Contdayana t Referred To Contact Anticoagulation Yue Alonso M.D. [address] [place] [address] [facility] Region Referral ID Status Reason Start Date Expiration Date V isits Requested Visits Authorized [id number] Canceled 11/14/2021 11/14/[phone] Encounter Details Date Type Department Care Team (Latest Contact Info) Description 10/16/2022 11:00 AM CDT Anticoagulation Visit Department of Anticoagulation in [place], [place] [address] [place] [address] Yue Alonso M.D. [address] [place] [address] Anticoagulant Therapy (Primary Dx); Mutation [...] week 07/09/2022 How often do you attend advent or jain serv ices? Never 07/09/2022 Do you belong to any clubs o r organizations such as advent groups, unions, fraternal or athletic groups, or [...] Date Recorded PHQ-2 Score 0 07/09/2022 [facility] [place] of Occupat ional Health - Occupational Stress [...] file Gender Identity Male 07/02/2017 9:12 AM CAFE WORKER Sexual Orientation Straight 07/02/2017 9: 12 AM CAFE WORKER documented as of this encounter Patient Instructions * Patient Instructions* Pippa Morales R.N. - 10/16/2022 11:00 AM CDT Your [...] please call Primary Care Anticoagulation Program at [phone] from 7:30 am to 4:30 pm. Saturday-Saturday [...] if you start any herbal or other rmea-hxo-qlxurhd product (check with your doctor, a nurse, [...] indicated above stating consult required. Consulted Anticoagulation [facility] for plan. Currently bridging: no. INR is therapeutic/supratherapeutic. Additional dosing or follow-up information: Provider consulted: Kira Woods- Anticoagulation [facility] Pt is on injectable anticoagulant: [...] (Latest Contact Info) Description 08/02/2023 8:50 AM CAFE WORKER Appointment Department of Laboratory Medicine in [address] [phone] Stefan Salomon M.D. [address] [place] [phone] 08/02/2023 9:30 AM CAFE WORKER Anticoagulation Visit Department of Anticoagulation in [place], [place] [address] [place] [phone] Stefan Salomon M.D. [address] [place] [phone] 09/24/2023 10:15 AM CDT Clinical Communication Virtual Review in [place], [place] 200 [place] [address] 09/25/2023 9:40 AM CDT Office Visit Department of Dermatology in [place], [place] [address] [place] [phone] Kira Hannah, HECTOR, C.N.P., M.S.N. [address] [place] [phone] Jordan Riojas M.D. [address] [place] [phone] documented as of this encounter Results * INR Reflex, POCT, B (10/26/2022 7:58 AM CDT) INR Reflex, POCT, B Collected DEFAULT 10/26/2022 7:58 AM CDT [facility] Blood (Blood, Capillary) 10/26/2022 7:58 AM CDT 10/26/2022 7:58 AM CDT Stefan Salomon M.D. LAB POCT ORDERABLES - DEVICE [facility] [address] [place] [phone], [place] [facility] in [address] [address] documented in this encounter Visit Diagnoses Diagnosis Anticoagulant Therapy- Primary Mutation Factor V Leiden Heterozygous (HCC) Monitoring For Therapeutic Drug Therapy Thrombosis Deep Vein Personal History documented in this encounter Additional Health Concerns Assessment Noted Time PHQ-9 Depression Total Score: 0 07/09/19 23 8:29 AM CAFE WORKER documented as of this encounter Care Teams Dining Service Worker Relationship Specialty Start Date End Date Stefan Salomon M.D. [address] [place] [address] [place] [phone] PCP - General Family Medicine 07/09/22 Anticoagulation Team 07/09/22 documented as of this encounter
--- OUTSIDE RECORDS SUMMARY | 2023-07-09 07:58 | XMS_ITS | Encounter Summary ---
Author Name Unknown Organization [facility] Address [address] [place] [address] Care Team Providers Care Drapery Operator Name Role Phone Stefan Salomon M.D. Primary Care Provider [phone] Reason for Visit * Reason Comments Med Refill Encounter Details Date Type Department Care Team (Late st Contact Info) Description 10/17/2022 Refill Department of Family Medicine, [facility], in [place], [place] 300 [place] [phone] Yue Alonso M.D. [address] [place] [phone] Med Refill Social History Tobacco Use Types [...] week 07/09/2022 How often do you attend hoahaoism or episcopalian serv ices? Never 07/09/2022 Do you belong to any clubs o r organizations such as hoahaoism groups, unions, fraternal or athletic groups, or [...] file Gender Identity Male 07/02/2017 9:12 AM ECONOMICS TEACHER Sexual Orientation Straight 07/02/2017 9: 12 AM ECONOMICS TEACHER documented as of this encounter Miscellaneous Notes [...] (Latest Contact Info) Description 08/02/2023 8:50 AM ECONOMICS TEACHER Appointment Department of Laboratory Medicine in [address] [phone] Stefan Salomon M.D. [address] [place] [phone] 08/02/2023 9:30 AM ECONOMICS TEACHER Anticoagulation Visit Department of Anticoagulation in [address] [phone] Stefan Salomon M.D. [address] [place] [phone] 09/24/2023 10:15 AM CDT Clinical Communication Virtual Review in [place], [place] 200 [place] [address] 09/25/2023 9:40 AM CDT Office Visit Department of Dermatology in [place], [place] [address] [place] [phone] Kira Hannah, HECTOR, C.N.P., M.S.N. [address] [place] [phone] Jordan Riojas M.D. [address] [place] [phone] documented as of this encounter Visit Diagnoses Diagnosis Anticoagulant Therapy- Primary Mutation Factor V Leiden Heterozygous (HCC) Monitoring For Therapeutic Drug Therapy Thrombosis Deep Vein Personal History documented in this encounter Additional Health Concerns Assessment Noted Time PHQ-9 Depression Total Score: 0 07/09/19 23 8:29 AM ECONOMICS TEACHER documented as of this encounter Care Teams Drapery Operator Relationship Specialty Start Date End Date Stefan Salomon M.D. [address] [phone] PCP - General Family Medicine 07/09/22 Anticoagulation Team 07/09/22 documented as of this encounter
--- OUTSIDE RECORDS SUMMARY | 2023-07-09 07:58 | XMS_ITS | Encounter Summary ---
Author Name Unknown Organization [facility] Address [address] [place] [address] Care Team Providers Care Airframe Technical Officer Name Role Phone Stefan Salomon M.D. Primary Care Provider [phone] Encounter Details Date Type Department Care Team (Latest Contact Info) Description 10/11/2022 8:31 AM CDT - 10/11/2022 11:59 PM CDT Hospital Encounter Department of Laboratory Medicine in [address] [phone] Yue Alonso M.D. [address] [place] [phone] Anticoagulant Therapy; Mutation Factor V Leiden Heterozygous [...] How often do you attend holiness or buddhist serv ices? Never 07/09/2022 Do you belong [...] Answer Date Recorded PHQ-2 Score 0 07/09/2022 [facility] - Occupational Stress Questionnaire [...] file Gender Identity Male 07/02/2017 9:12 AM USER EXPERIENCE MANAGER Sexual Orientation Straight 07/02/2017 9: 12 AM USER EXPERIENCE MANAGER documented as of this encounter Medications [...] (Latest Contact Info) Description 08/02/2023 8:50 AM USER EXPERIENCE MANAGER Appointment Department of Laboratory Medicine in [address] [phone] Stefan Salomon M.D. [address] [place] [phone] 08/02/2023 9:30 AM USER EXPERIENCE MANAGER Anticoagulation Visit Department of Anticoagulation in [place], [place] [address] [place] [phone] Stefan Salomon M.D. [address] [place] [phone] 09/24/2023 10:15 AM CDT Clinical Communication Virtual Review in [place], [place] 200 [place] [address] 09/25/2023 9:40 AM CDT Office Visit Department of Dermatology in [place], [place] [address] [place] [phone] Kira Hannha, HECTOR, C.N.P., M.S.N. [address] [place] [phone] Jordan Riojas M.D. [address] [place] [phone] documented as of this encounter Procedures Procedure [...] Alonso M.D. LAB POCT ORDERABLES - DEVICE Performing Organization Address City/[facility] Co de Phone Number [address] [address], [address] [address] * INR Reflex, POCT, B (10/11/2022 8:35 AM CDT) INR Reflex, POCT, B 4.1 10/11/2022 8:35 AM CDT [facility] Comment: ----ADDITIONAL INFORMATION---- Standard intensity warfarin therapeutic range: 2.0 to 3.0 ?? High intensity warfarin therapeutic range: 2.5 to 3.5 Blood 10/11/2022 8:35 AM CDT 10/11/2022 8:37 AM CDT Generic Rals LAB POCT ORDERABLES - DEVICE Performing Organization Address [facility] Co de Phone Number [address] [address], [address] [address] documented in this encounter Visit Diagnoses Diagnosis Anticoagulant Therapy Mutation Factor V Leiden Heterozygous (HCC) Monitoring For Therapeutic Drug Therapy Thrombosis Deep Vein Personal History documented in this encounter Additional Health Concerns Assessment Noted Time PHQ-9 Depression Total Score: 0 07/09/19 23 8:29 AM USER EXPERIENCE MANAGER documented as of this encounter Care Teams Airframe Technical Officer Relationship Specialty Start Date End Date Stefan Salomon M.D. [address] [place] [phone] PCP - General Family Medicine 07/09/22 Anticoagulation Team 07/09/22 documented as of this encounter
--- OUTSIDE RECORDS SUMMARY | 2023-07-09 07:58 | XMS_ITS | Encounter Summary ---
Author Name Unknown Organization [facility] Address [address] [place] [address] Care Team Providers Care Environmental Lead Name Role Phone Stefan Salomon M.D. Primary Care Provider [phone] Reason for Visit * Outpatient (Routine) - Canceled Specialty Diagnoses / Procedures Referred By Contdayana t Referred To Contact Anticoagulation Yue Alonso M.D. [address] [place] [address] [facility] Region Referral ID Status Reason Start Date Expiration Date V isits Requested Visits Authorized [id number] Canceled 11/14/2021 11/14/[phone] Encounter Details Date Type Department Care Team (Latest Contact Info) Description 10/11/2022 9:30 AM CDT Anticoagulation Visit Department of Anticoagulation in [place], [place] [address] [place] [phone] Yue Alonso M.D. [address] [place] [phone] Anticoagulant Therapy (Primary Dx); Mutation [...] How often do you attend jainism or restorationism serv ices? Never 07/09/2022 Do [...] Answer Date Recorded PHQ-2 Score 0 07/09/2022 [facility] Occupat ional Health - Occupational Stress [...] file Gender Identity Male 07/02/2017 9:12 AM CLINICAL SOCIAL WORK THERAPIST Sexual Orientation Straight 07/02/2017 9: 12 AM CLINICAL SOCIAL WORK THERAPIST documented as of this encounter Progress Notes [...] (Latest Contact Info) Description 08/02/2023 8:50 AM CLINICAL SOCIAL WORK THERAPIST Appointment Department of Laboratory Medicine in [address] [phone] Stefan Salomon M.D. [address] [place] [phone] 08/02/2023 9:30 AM CLINICAL SOCIAL WORK THERAPIST Anticoagulation Visit Department of Anticoagulation in [place], [place] [address] [place] [phone] Stefan Salomon M.D. [address] [place] [phone] 09/24/2023 10:15 AM CDT Clinical Communication Virtual Review in [place], [place] 200 [place] [address] 09/25/2023 9:40 AM CDT Office Visit Department of Dermatology in [place], [place] [address] [place] [phone] Kira Hannah, HECTOR, C.N.P., M.S.N. [address] [place] [phone] Jordan Riojas M.D. [address] [place] [phone] documented as of this encounter Results * INR Reflex, POCT, B (10/16/2022 8:02 AM CDT) INR Reflex, POCT, B Collected DEFAULT 10/16/2022 8:03 AM CDT CNFL Blood (Blood, Capillary) 10/16/2022 8:02 AM CDT 10/16/2022 8:03 AM CDT Stefan Salomon M.D. LAB POCT ORDERABLES - DEVICE [facility] [address] [place] [address], [facility] in [place] [address] [address] documented in this encounter Visit Diagnoses Diagnosis Anticoagulant Therapy- Primary Mutation Factor V Leiden Heterozygous (HCC) Monitoring For Therapeutic Drug Therapy Thrombosis Deep Vein Personal History documented in this encounter Additional Health Concerns Assessment Noted Time PHQ-9 Depression Total Score: 0 07/09/19 23 8:29 AM CLINICAL SOCIAL WORK THERAPIST documented as of this encounter Care Teams Environmental Lead Relationship Specialty Start Date End Date Stefan Salomon M.D. MARIANOI: [phone] [address] [phone] PCP - General Family Medicine 07/09/22 Anticoagulation Team 07/09/22 documented as of this encounter
--- OUTSIDE RECORDS SUMMARY | 2023-07-09 07:58 | XMS_ITS | Encounter Summary ---
Author Name Unknown Organization [facility] Address [address] [place] [address] Care Team Providers Care Bituminous Paving Machine Operator Name Role Phone Stefan Salomon M.D. Primary Care Provider [phone] Reason for Visit * Reason Comments Med Refill Encounter Details Date Type Department Care Team (Late st Contact Info) Description 09/13/2022 Refill Department of Family Medicine, [facility], in [place], [place] 300 [place] [phone] Yue Alonso M.D. [address] [place] [phone] Med Refill Social History Tobacco Use Types [...] week 07/09/2022 How often do you attend worship or evangelical serv ices? Never 07/09/2022 Do you belong to any clubs o r organizations such as worship groups, unions, fraternal or athletic groups, or [...] Date Recorded PHQ-2 Score 0 07/09/2022 [facility] of Occupat ional Health [...] file Gender Identity Male 07/02/2017 9:12 AM BAND STRAIGHTENER Sexual Orientation Straight 07/02/2017 9: 12 AM BAND STRAIGHTENER documented as of this encounter Plan of Treatment Upcoming Encounters Date Type Department Care Team (Latest Contact Info) Description 08/02/2023 8:50 AM BAND STRAIGHTENER Appointment Department of Laboratory Medicine in [address] [phone] Stefan Salomon M.D. [address] [place] [phone] 08/02/2023 9:30 AM BAND STRAIGHTENER Anticoagulation Visit Department of Anticoagulation in [place], [place] [address] [place] [phone] Stefan Salomon M.D. [address] [place] [phone] 09/24/2023 10:15 AM CDT Clinical Communication Virtual Review in [place], [place] 200 [place] [address] 09/25/2023 9:40 AM CDT Office Visit Department of Dermatology in [place], [place] [address] [place] [phone] Kira Hannah, HECTOR, C.N.P., M.S.N. [address] [place] [phone] Jordan Riojas M.D. [address] [place] [phone] documented as of this encounter Visit Diagnoses Not on filedocumented in this encounter Additional Health Concerns Assessment Noted Time PHQ-9 Depression Total Score: 0 07/09/19 23 8:29 AM BAND STRAIGHTENER documented as of this encounter Care Teams Bituminous Paving Machine Operator Relationship Specialty Start Date End Date Stefan Salomon M.D. [address] [place] [phone] PCP - General Family Medicine 07/09/22 Anticoagulation Team 07/09/22 documented as of this encounter
--- OUTSIDE RECORDS SUMMARY | 2023-07-09 07:59 | XMS_ITS | Encounter Summary ---
Author Name Unknown Organization [facility] Address [address] [place] [address] Care Team Providers Care Net Architect Name Role Phone Stefan Salomon M.D. Primary Care Provider [phone] Reason for Referral * Outpatient (Routine) - Authorized Specialty Diagnoses / Procedures Referred By Piero self Referred To Contact Diagnoses Screening Colon Cancer Average Risk Procedures Colonoscopy Stefan Salomon M.D. [address] [place] [phone] [facility] Referral ID Status Reason Start Date Expiration Date V isits Requested Visits Authorized [id number] Authorized 08/01/2022 08/01/2023 1 1 CTOR OF CUSTOMER SERVICE Reason for Visit * Reason Comments Establish Care Has concerns he will talk to you about. Questions regarding colonoscopy * Appointment Request (Routine) - Closed Specialty Diagnoses / Procedures Referred By Piero self Referred To Contact Family Medicine Referral ID Status Reason Start Date Expiration Date Visits Re quested Visits Authorized [id number] Closed 07/09/2022 07/09/2023 1 1 Encounter Details Date Type Department Care Team (Late st Contact Info) Description 08/01/2022 10:00 AM DIRECTOR OF CUSTOMER SERVICE Office Visit Department of Family Medicine, [facility], in [address] [phone] Stefan Salomon M.D. [address] [place] [phone] Screening Colon Cancer Average Risk (Primary [...] How often do you attend yarsani or denominational serv ices? Never 07/09/2022 Do you belong [...] Identity Male 07/02/2017 9:12 AM DIRECTOR OF CUSTOMER SERVICE Sexual Orientation Straight 07/02/2017 9: 12 AM DIRECTOR OF CUSTOMER SERVICE documented as of this encounter Last Filed Vital Signs Vital Sign Reading Time Taken Comments Blood Pressure 136/77 08/01/2022 10:06 AM DIRECTOR OF CUSTOMER SERVICE Pulse 62 08/01/2022 10:06 AM DIRECTOR OF CUSTOMER SERVICE Temperature 36.8 ??C (98.2 ??F) 08/01/2022 9:59 AM CS T Respiratory Rate - - Oxygen Saturation 95% 08/01/2022 9:59 AM DIRECTOR OF CUSTOMER SERVICE Inhaled Oxygen Concentration - - Weight 100 kg (220 lb 14.4 oz) 08/01/2022 9:59 A M DIRECTOR OF CUSTOMER SERVICE Height 176.5 cm (5' 9.49) 08/01/2022 9:59 AM CS T Body Mass Index 32.16 08/01/2022 9:59 AM DIRECTOR OF CUSTOMER SERVICE documented in this encounter Progress Notes * [...] followed closely with a wound clinic in [place] with good results. Patient is due for [...] Cancer Average Risk Patient requesting colonoscopy in [place]. Order placed with prep provided. Patient will [...] understanding of the content. Stefan Salomon M.D. CTOR OF CUSTOMER SERVICE documented in this encounter Plan of Treatment Upcoming Encounters Date Type Department Care Team (Latest Contact Info) Description 08/02/2023 8:50 AM DIRECTOR OF CUSTOMER SERVICE Appointment Department of Laboratory Medicine in [address] [phone] Stefan Salomon M.D. [address] [place] [phone] 08/02/2023 9:30 AM DIRECTOR OF CUSTOMER SERVICE Anticoagulation Visit Department of Anticoagulation in [address] [phone] Stefan Salomon M.D. [address] [place] [phone] 09/24/2023 10:15 AM CDT Clinical Communication Virtual Review in [place], [place] 200 [place] [address] 09/25/2023 9:40 AM CDT Office Visit Department of Dermatology in [place], [place] [address] [place] [phone] Kira Hannah APRN, C.NCotyP., M.S.N. [address] [place] [phone] Jordan Riojas M.D. 200 [place] [phone] Scheduled Orders Name Type Priority Associated Diagnoses [...] 0 07/09/19 23 8:29 AM DIRECTOR OF CUSTOMER SERVICE documented as of this encounter Care Teams Net Architect Relationship Specialty Start Date End Date Stefan Salomon M.D. [address] [place] [phone] PCP - General Family Medicine 07/09/22 Anticoagulation Team 07/09/22 documented as of this encounter
--- OUTSIDE RECORDS SUMMARY | 2023-07-09 07:59 | XMS_ITS | Encounter Summary ---
Author Name Unknown Organization [facility] Address [address] [place] [address] Care Team Providers Care Dancing Teacher Name Role Phone Stefan Salomon M.D. Primary Care Provider [phone] Reason for Visit * Reason Onset Date Comments Nurse Visit 07/20/2022 Blood pressure c babitak Encounter Details Date Type Department Care Team (Latest Contact Info) Description 07/20/2022 Clinical Communication Department of Family Medicine, [facility], in [place], [place] 300 [place] [phone] Yue Alonso M.D. [address] [place] [phone] Nurse Visit (Blood pressure check) Social History [...] How often do you attend jainism or anabaptism serv ices? Never 07/09/2022 Do [...] PHQ-2 Score 0 07/09/2022 [facility] - Occupational Stress Questionnaire Answer Date [...] file Gender Identity Male 07/02/2017 9:12 AM CANOE INSPECTOR Sexual Orientation Straight 07/02/2017 9: 12 AM CANOE INSPECTOR documented as of this encounter Miscellaneous Notes * Telephone Encounter - Drea Zafar, C.M.A. - 07/23/2022 9:49 AM CANOE INSPECTOR Left message for patient to return call to clinic. Does the patient need to speak to nursing? no Action needed: Need to let patient know to continue with the same management plan for his HTN E INSPECTOR * Telephone Encounter - Drea Zafar C.M.A. - 07/20/2022 1:37 PM CANOE INSPECTOR Left message for patient to return call to clinic. Does the patient need to speak to nursing? no Action needed: Need to let patient know to continue with the same management plan for his HTN E INSPECTOR * Telephone Encounter - Eloina Painter L.P.N. - 07/20/2022 9:55 AM CANOE INSPECTOR Today's blood pressure reading and prior two readings: BP Readings from Last 3 Encounters: 07/20/22 135/77 07/09/22 (!) 162/78 05/17/22 135/77 . Medication list was reconciled, and patient is taking their blood pressure medication as prescribed. The patient reports no acute symptoms of hypertension Based on today's readings: The provider will be notified of today's visit and the patient was dismissed E INSPECTOR documented in this encounter Plan of Treatment Upcoming Encounters Date Type Department Care Team (Latest Contact Info) Description 08/02/2023 8:50 AM CANOE INSPECTOR Appointment Department of Laboratory Medicine in [address] [phone] Stefan Salomon M.D. [address] [place] [phone] 08/02/2023 9:30 AM CANOE INSPECTOR Anticoagulation Visit Department of Anticoagulation in [address] [phone] Stefan Salomon M.D. [address] [place] [phone] 09/24/2023 10:15 AM CDT Clinical Communication Virtual Review in [place], [place] 200 [place] [address] 09/25/2023 9:40 AM CDT Office Visit Department of Dermatology in [place], [place] [address] [place] [phone] Kira Hannah APRN, CCotyNCotyP., M.S.N. [address] [place] [phone] Jordan Riojas M.D. [address] [place] [phone] documented as of this encounter Visit Diagnoses Not on filedocumented in this encounter Additional Health Concerns Assessment Noted Time PHQ-9 Depression Total Score: 0 07/09/19 23 8:29 AM CANOE INSPECTOR documented as of this encounter Care Teams Dancing Teacher Relationship Specialty Start Date End Date Stefan Salomon M.D. [phone] [place] [phone] PCP - General Family Medicine 07/09/22 Anticoagulation Team 07/09/22 documented as of this encounter
--- OUTSIDE RECORDS SUMMARY | 2023-07-09 07:59 | XMS_ITS | Encounter Summary ---
Author Name Unknown Organization [facility] Address [address] [place] [address] Care Team Providers Care Hearing Officer Name Role Phone Stefan Salomon M.D. Primary Care Provider [phone] Reason for Visit * Reason Comments Med Refill Encounter Details Date Type Department Care Team (Late st Contact Info) Description 07/31/2022 Refill Department of Family Medicine, [facility], in [place], [place] 300 [place] [phone] David Alvarenga P.A.-C., P.A. [address] [place] [phone] Med Refill Social History Tobacco [...] How often do you attend sabianism or yarsani serv ices? Never 07/09/2022 Do [...] PHQ-2 Score 0 07/09/2022 [facility] [place] [facility] - Occupational Stress Questionnaire Answer Date [...] file Gender Identity Male 07/02/2017 9:12 AM NEIGHBORHOOD WORKER Sexual Orientation Straight 07/02/2017 9: 12 AM NEIGHBORHOOD WORKER documented as of this encounter Miscellaneous Notes * Telephone Encounter - Destiny Kapoor, LCotyP.N. - 08/01/2022 3:06 PM NEIGHBORHOOD WORKER Controlled substance renewal for Tramadol 50 mg: [...] * Telephone Encounter - Eileen Cruz RDN, [place] - 07/31/2022 3:03 PM NEIGHBORHOOD WORKER Nurse review: Unable to forward request to [...] OF OVERDOSE AND ADDICTION Pharmacy (include location): [facility] [address] [place] [address] HBORHOOD WORKER documented in this encounter Plan of Treatment Upcoming Encounters Date Type Department Care Team (Latest Contact Info) Description 08/02/2023 8:50 AM NEIGHBORHOOD WORKER Appointment Department of Laboratory Medicine in [address] [phone] Stefan Salomon M.D. [address] [place] [phone] 08/02/2023 9:30 AM NEIGHBORHOOD WORKER Anticoagulation Visit Department of Anticoagulation in [address] [phone] Stefan Salomon M.D. [address] [place] [phone] 09/24/2023 10:15 AM CDT Clinical Communication Virtual Review in [place], [place] [address] [place] [address] 09/25/2023 9:40 AM CDT Office Visit Department of Dermatology in [place], [place] [address] [place] [phone] Kira Hannah APRN, C.N.P., M.S.N. [address] [place] [phone] Jordan Riojas M.D. [address] [place] [phone] documented as of this encounter Results * (ABNORMAL) Controlled Substance Monitoring Panel, Urine (02/21/2023 2:36 PM CDT) List patient's current medications Not provided 3 10:09 PM CDT [facility] Comment: ----ADDITIONAL INFORMATION---- Accuracy and completeness of declared medications on reports solely dependent on information submitted by client. Creatinine, Random, U 225.8 mg/dL 3 8:56 AM CDT [facility] Specific [place] 1.035 02/23/20 2 3 8:56 AM CDT [facility] pH 5.0 3 8:56 AM CDT [facility] Oxidants Negative Cutoff: 200 mg/L 3 8:56 AM CDT [facility] Comment Normal 3 8:56 AM CDT [facility] Barbiturates Negative Cutoff: 200 ng/mL 3 8:56 AM CDT [facility] Cocaine Negative Cutoff: 150 ng/mL 3 8:56 AM CDT [facility] Comment: This cocaine immunoassay targets benzoylecgonine the primary metabolite of cocaine. Tetrahydrocannabinol Negative Cutoff: 50 ng/mL 3 8:56 AM CDT [facility] Comment: This immunoassay targets delta-9 tetrahydrocannabinol carboxylic acid (THC-COOH), a metabolite of delta-9 tetrahydrocannabinol the main psychoactive ingredient of marijuana. ----ADDITIONAL INFORMATION---- This report is intended for use in clinical monitoring or management of patients. ??It is not intended for use in employment-related testing. Codeine Not Detected Cutoff: 25 ng/mL 3 11:35 PM CDT [facility] Comment:Tylenol 3 Cgmdxgb-7-rcks-glucuro nide Not Detected Cutoff: 100 ng/mL 3 11:35 PM CDT [facility] Comment:Metabolite of codein e Morphine Not Detected Cutoff: 25 ng/mL 3 11:35 PM CDT [facility] Comment: Kelsey Ornelas, MS Contin; Also a minor metabolite (10%) of codeine and can be seen in low concentrations (<2,000 ng/mL) with poppy seed ingestion. Uigzmlgh-0-rgby-glucur onide Not Detected Cutoff: 100 ng/mL 3 11:35 PM CDT [facility] Comment:Metabolite of morphi ne 6-monoacetylmorphine Not Detected Cutoff: 25 ng/mL 3 11:35 PM CDT [facility] Comment:Metabolite of heroin Hydrocodone Not Detected Cutoff: 25 ng/mL 3 11:35 PM CDT [facility] Comment: Lortab, Etoile, Vicodin; Also a very minor metabolite of [...] and a minor (<5%) metabolite of morphine. Pthhccdwwzrns-2-tcxt-g lucuronide Not Detected Cutoff: 100 ng/mL 3 [...] Opana; Al so a metabolite of oxycodone. Qvethgrhrxd-3-qhxk-glu curonide Not Detected Cutoff: 100 ng/mL 3 [...] ng/mL 3 11:35 PM CDT [facility] Comment:Narcan Ptfwlxwe-4-sejt-glucur onide Not Detected Cutoff: 100 ng/mL 3 [...] PM CDT [facility] Comment:Metabolite of tapent adol Tfaxeabugz-ojkf-rekacs onide Not Detected Cutoff: 100 ng/mL 3 [...] developed and its performance characteristics determined by [facility] in a manner consistent with CLIA requirements. [...] 10 ng/mL 3 1:34 PM CDT [facility] Comment:Marieum, Onfi N-Desmethylclobazam Not Detected Cutoff: 200 ng/mL [...] 3 1:34 PM CDT [facility] Comment:Ambien Zolpidem Jkkhjc-6-Saybalrloq acid Not Detected Cutoff: 10 ng/mL 3 [...] developed and its performance characteristics determined by [facility] in a manner consistent with CLIA requirements. [...] 100 ng/mL 3 12:14 PM CDT [facility] 3,4-dcnicmymdajidi-B-e thylamphetamine (MDEA) Not Detected Cutoff: 100 ng/mL [...] limitations of testing. 3 12:14 PM CDT [facility] Comment: ----ADDITIONAL INFORMATION---- This test was developed and its performance characteristics determined by [facility] in a manner consistent with CLIA requirements. This test has not been cleared or approved by the U.S. Food and Drug Administration. Urine (Urine, Midstream) 02/21/2023 2:36 PM CDT 02/21/2023 10:09 PM CDT Stefan Salomon M.D. LAB URINE ORDERABLE S [facility] [address] [place] [address] [facility] [address] [place] [address] [facility] [address] [place] [address] [place] [address] documented in this encounter Visit Diagnoses Diagnosis Chronic Pain Syndrome Polyarthralgia Degeneration Disc Cervical documented in this encounter Additional Health Concerns Assessment Noted Time PHQ-9 Depression Total Score: 0 07/09/19 23 8:29 AM NEIGHBORHOOD WORKER documented as of this encounter Care Teams Hearing Officer Relationship Specialty Start Date End Date Stefan Salomon M.D. [address] [place] [phone] PCP - General Family Medicine 07/09/22 Anticoagulation Team 07/09/22 documented as of this encounter
--- OUTSIDE RECORDS SUMMARY | 2023-07-09 07:59 | XMS_ITS | Encounter Summary ---
Author Name Unknown Organization [facility] Address [address] [place] [address] Care Team Providers Care Construction And Maintenance Inspector Name Role Phone Stefan Salomon M.D. Primary Care Provider [phone] Reason for Visit * Appointment Request (Routine) - Closed Specialty Diagnoses / Procedures Referred By Piero self Referred To Contact Dermatology Diagnoses Rash Referral ID Status Reason Start Date Expiration Date Visits Re quested Visits Authorized [id number] Closed 05/22/2022 05/22/2023 1 1 Encounter Details Date Type Department Care Team (Latest Contact Info) Description 07/27/2022 11:00 AM MEDICAL STAFF PHYSICIAN Office Visit Department of Dermatology in [place], [place] [address] [place] [address] Elizabeth Morley M.D. [address] [place] [phone] Dermatoheliosis (Primary Dx); Keratosis Actinic; Dermatitis Discharge [...] How often do you attend taoist or tenriism serv ices? Never 07/09/2022 Do [...] Answer Date Recorded PHQ-2 Score 0 07/09/2022 [facility]at ional [facility] - Occupational [...] Gender Identity Male 07/02/2017 9:12 AM MEDICAL STAFF PHYSICIAN Sexual Orientation Straight 07/02/2017 9: 12 AM MEDICAL STAFF PHYSICIAN documented as of this encounter Consult Notes * Elizabeth Morley M.D. - 07/27/2022 11:00 AM CST REFERRED BY No referring provider defined for this encounter. Supervised by: Dr. Garcias Correspondence to Elizabeth Jaeger M.D. Patient seen and discussed with supervising vmware consultant,who evaluated the patient and concurs with [...] cancer were discussed. I recommended using an [id number] sunscreen with at least SPF 30 or [...] cycles of liquid nitrogen cryotherapy with supervising vmware consultant present. Patient tolerated the procedure well. [...] Elizabeth Morley MD Dermatology Resident, PGY-4 Pager: [phone] CAL STAFF PHYSICIAN Associated attestation - Brent Garcias M.D., M.B.A. - 07/27/2022 2:36 PM MEDICAL STAFF PHYSICIAN I saw and evaluated the patient, participating in the dsouza portions of the service. I reviewed the resident/fellow???s note. I agree with the resident/fellow???s findings and plan. documented in this encounter Plan of Treatment Upcoming Encounters Date Type Department Care Team (Latest Contact Info) Description 08/02/2023 8:50 AM MEDICAL STAFF PHYSICIAN Appointment Department of Laboratory Medicine in [address] [phone] Stefan Salomon M.D. [address] [place] [phone] 08/02/2023 9:30 AM MEDICAL STAFF PHYSICIAN Anticoagulation Visit Department of Anticoagulation in [address] [phone] Stefan Salomon M.D. [address] [place] [phone] 09/24/2023 10:15 AM CDT Clinical Communication Virtual Review in [place], [place] 200 [place] [address] 09/25/2023 9:40 AM CDT Office Visit Department of Dermatology in [place], [place] [address] [place] [phone] Kira Hannha, HECTOR, C.N.P., M.S.N. [address] [place] [phone] Jordan Riojas M.D. [address] [place] [phone] documented as of this encounter Visit Diagnoses Diagnosis Dermatoheliosis- Primary Keratosis Actinic Dermatitis documented in this encounter Additional Health Concerns Assessment Noted Time PHQ-9 Depression Total Score: 0 07/09/19 23 8:29 AM MEDICAL STAFF PHYSICIAN documented as of this encounter Care Teams Construction And Maintenance Inspector Relationship Specialty Start Date End Date Stefan Salomon M.D. [address] [place] [phone] PCP - General Family Medicine 07/09/22 Anticoagulation Team 07/09/22 documented as of this encounter
--- OUTSIDE RECORDS SUMMARY | 2023-07-09 07:59 | XMS_ITS | Encounter Summary ---
Author Name Unknown Organization [facility] Address [address] [place] [address] Care Team Providers Care Glass Mould Cleaner Name Role Phone Stefan Salomon M.D. Primary Care Provider [phone] Reason for Referral * Outpatient (Routine) - Closed Specialty Diagnoses / Procedures Referred By Piero self Referred To Contact Diagnoses Preoperative Exam Procedures ECG 12 Lead Yue Alonso M.D. [address] [place] [phone] [facility] Referral ID Status Reason Start Date Expiration Date Visits Re quested Visits Authorized [id number] Closed 07/09/2022 07/09/2023 1 1 LITY ATTENDANT Reason for Visit * Outpatient (Routine) - Closed Specialty Diagnoses / Procedures Referred By Piero self Referred To Contact Diagnoses Preoperative Exam Procedures ECG 12 Lead Yue Alonso M.D. [address] [place] [phone] [facility] Referral ID Status Reason Start Date Expiration Date Visits Re quested Visits Authorized [id number] Closed 07/09/2022 07/09/2023 1 1 Encounter Details Date Type Department Care Team (Latest Contact Info) Description 07/09/2022 8:44 AM FACILITY ATTENDANT - 07/09/2022 11:59 PM FACILITY ATTENDANT Hospital Encounter Department of Laboratory Medicine in [place], [place] [address] [place] [address] Yue Alonso M.D. [address] [place] [address] [place] [phone] Preoperative Exam Discharge Disposition: Home or Self [...] How often do you attend shinto or hinduism serv ices? Never 07/09/2022 Do you belong [...] Date Recorded PHQ-2 Score 0 07/09/2022 [facility] of Occupat ional Health - Occupational Stress [...] file Gender Identity Male 07/02/2017 9:12 AM FACILITY ATTENDANT Sexual Orientation Straight 07/02/2017 9: 12 AM FACILITY ATTENDANT documented as of this encounter Medications at [...] (Latest Contact Info) Description 08/02/2023 8:50 AM FACILITY ATTENDANT Appointment Department of Laboratory Medicine in [address] [phone] Stefan Salomon M.D. [address] [place] [phone] 08/02/2023 9:30 AM FACILITY ATTENDANT Anticoagulation Visit Department of Anticoagulation in [address] [phone] Stefan Salomon M.D. [address] [place] [phone] 09/24/2023 10:15 AM CDT Clinical Communication Virtual Review in [place], [place] 200 [place] [address] 09/25/2023 9:40 AM CDT Office Visit Department of Dermatology in [place], [place] [address] [place] [phone] Kira Hannah, HECTOR, C.N.P., M.S.N. [address] [place] [phone] Jordan Riojas M.D. [address] [place] [phone] documented as of this encounter Procedures Procedure Name Priority Date/Time Associated Diagnosis Comments ECG Routine 07/09/2022 8:57 AM FACILITY ATTENDANT Preoperative Exam documented in this encounter Results * ECG 12 Lead (07/09/2022 8:57 AM FACILITY ATTENDANT) Ventricular Rate ECG/Min 58 BPM MUSE [place] Interval 168 ms MUSE QRSD Interval 114 ms MUSE QT Interval 430 ms MUSE QTC Interval 422 ms MUSE P [place] 18 degrees MUSE R [place] -1 degrees MUSE T Wave [place] 32 degrees MUSE 07/09/2022 8:57 AM FACILITY ATTENDANT 07/09/2022 9:36 AM FACILITY ATTENDANT Impressions MUSE - 07/09/2022 9:00 AM FACILITY ATTENDANT Poor data quality Sinus bradycardia Cannot rule [...] Total Score: 0 07/09/19 23 8:29 AM FACILITY ATTENDANT documented as of this encounter Care Teams Glass Mould Cleaner Relationship Specialty Start Date End Date Stefan Salomon M.D. [phone] [place] [phone] PCP - General Family Medicine 07/09/22 Anticoagulation Team 07/09/22 documented as of this encounter
--- OUTSIDE RECORDS SUMMARY | 2023-07-09 07:59 | XMS_ITS | Encounter Summary ---
Author Name Unknown Organization [facility] Address [address] [place] [address] Care Team Providers Care Ophthalmology Surgical Technician Name Role Phone Stefan Salomon M.D. Primary Care Provider [phone] Reason for Visit * Reason Onset Date Comments Pre-visit Intake 07/26/2022 Encounter Details Date Type Department Care Team (Latest Contact Info) Description 07/26/2022 7:15 AM DRYING ROOM SUPERVISOR Clinical Communication Virtual Review in [place], [place] [address] [facility], [place] [address] Pre-visit Intake Social History Tobacco Use Types [...] How often do you attend worship or anabaptism serv ices? Never 07/09/2022 Do [...] Answer Date Recorded PHQ-2 Score 0 07/09/2022 [facility] of Occupat ional Health - Occupational [...] file Gender Identity Male 07/02/2017 9:12 AM DRYING ROOM SUPERVISOR Sexual Orientation Straight 07/02/2017 9: 12 AM DRYING ROOM SUPERVISOR documented as of this encounter Plan of Treatment Upcoming Encounters Date Type Department Care Team (Latest Contact Info) Description 08/02/2023 8:50 AM DRYING ROOM SUPERVISOR Appointment Department of Laboratory Medicine in [address] [phone] Stefan Salomon M.D. [address] [place] [phone] 08/02/2023 9:30 AM DRYING ROOM SUPERVISOR Anticoagulation Visit Department of Anticoagulation in [place], [place] [address] [place] [phone] Stefan Salomon M.D. [address] [place] [phone] 09/24/2023 10:15 AM CDT Clinical Communication Virtual Review in [place], [place] [address] [place] [address] 09/25/2023 9:40 AM CDT Office Visit Department of Dermatology in [place], [place] [address] [place] [phone] Kira Hannah APRN, C.N.P., M.S.N. [address] [place] [phone] Jordan Riojas M.D. [address] [place] [phone] documented as of this encounter Visit Diagnoses Not on filedocumented in this encounter Additional Health Concerns Assessment Noted Time PHQ-9 Depression Total Score: 0 07/09/19 23 8:29 AM DRYING ROOM SUPERVISOR documented as of this encounter Care Teams Ophthalmology Surgical Technician Relationship Specialty Start Date End Date Stefan Salomon M.D. [address] [place] [phone] PCP - General Family Medicine 07/09/22 Anticoagulation Team 07/09/22 documented as of this encounter
--- OUTSIDE RECORDS SUMMARY | 2023-07-09 07:59 | XMS_ITS | Encounter Summary ---
Author Name Unknown Organization [facility] Address [address] [place] [address] Care Team Providers Care Clinical Writer Name Role Phone Stefan Salomon M.D. Primary Care Provider [phone] Reason for Visit * Reason Comments Nurse Visit Blood pressure check * Outpatient (Routine) - Authorized Specialty Diagnoses / Procedures Referred By Piero t Referred To Contact Yue Alonso M.D. [address] [place] [phone] [facility] Region Referral ID Status Reason Start Date Expiration Date V isits Requested Visits Authorized [id number] Authorized 07/09/2022 07/08/2025 1 1 Encounter Details Date Type Department Care Team (Late st Contact Info) Description 07/20/2022 8:15 AM DRAGLINE ENGINEER Nurse Only Department of Family Medicine, [facility], in [place], [place] [address] [place] [address] Yue Alonso M.D. [address] [place] [phone] Eloina Painter L.P.NCoty Nurse Visit [...] How often do you attend yazidi or hoahaoism serv ices? Never 07/09/2022 Do [...] Answer Date Recorded PHQ-2 Score 0 07/09/2022 [facility] of Occupat ional Health - Occupational Stress [...] file Gender Identity Male 07/02/2017 9:12 AM DRAGLINE ENGINEER Sexual Orientation Straight 07/02/2017 9: 12 AM DRAGLINE ENGINEER documented as of this encounter Last Filed Vital Signs Vital Sign Reading Time Taken Comments Blood Pressure 135/77 07/20/2022 8:03 AM DRAGLINE ENGINEER rec heck Pulse 66 07/20/2022 8:03 AM DRAGLINE ENGINEER Temperature - - Respiratory Rate - - [...] today's visit and the patient was dismissed LINE ENGINEER documented in this encounter Plan of Treatment Upcoming Encounters Date Type Department Care Team (Latest Contact Info) Description 08/02/2023 8:50 AM DRAGLINE ENGINEER Appointment Department of Laboratory Medicine in [address] [phone] Stefan Salomon M.D. [address] [place] [phone] 08/02/2023 9:30 AM DRAGLINE ENGINEER Anticoagulation Visit Department of Anticoagulation in [address] [phone] Stefan Salomon M.D. [address] [place] [phone] 09/24/2023 10:15 AM CDT Clinical Communication Virtual Review in [place], [place] 200 [place] [address] 09/25/2023 9:40 AM CDT Office Visit Department of Dermatology in [place], [place] [address] [place] [phone] Kira Hannah APRN, RosaliaNCotyP., M.S.N. [address] [place] [phone] Jordan Riojas M.D. [address] [place] [phone] documented as of this encounter Visit Diagnoses Diagnosis Hypertension Essential Primary- Primary documented in this encounter Additional Health Concerns Assessment Noted Time PHQ-9 Depression Total Score: 0 07/09/19 23 8:29 AM DRAGLINE ENGINEER documented as of this encounter Care Teams Clinical Writer Relationship Specialty Start Date End Date Stefan Salomon M.D. [phone] [place] [phone] PCP - General Family Medicine 07/09/22 Anticoagulation Team 07/09/22 documented as of this encounter
--- OUTSIDE RECORDS SUMMARY | 2023-07-09 07:59 | XMS_ITS | Encounter Summary ---
Author Name Unknown Organization [facility] Address [address] [place] [address] Care Team Providers Care Hospital Administrator Name Role Phone Stefan Salomon M.D. Primary Care Provider [phone] Reason for Visit * Reason Onset Date Comments canceled colonoscopy 07/09/2022 Encounter Details Date Type Department Care Team (Latest Contact Info) Description 07/09/2022 Clinical Communication Department of General Surgery in [place], [place] [address] [phone] Lamine Martel M.D. [address] [phone] canceled colonoscopy Social History Tobacco [...] How often do you attend anabaptism or shinto serv ices? Never 07/09/2022 Do [...] Answer Date Recorded PHQ-2 Score 0 07/09/2022 [facility] of Occupat ional Health - Occupational [...] file Gender Identity Male 07/02/2017 9:12 AM HIGH SCHOOL LIBRARY MEDIA SPECIALIST Sexual Orientation Straight 07/02/2017 9: 12 AM HIGH SCHOOL LIBRARY MEDIA SPECIALIST documented as of this encounter Plan of Treatment Upcoming Encounters Date Type Department Care Team (Latest Contact Info) Description 08/02/2023 8:50 AM HIGH SCHOOL LIBRARY MEDIA SPECIALIST Appointment Department of Laboratory Medicine in [address] [phone] Stefan Salomon M.D. [address] [place] [phone] 08/02/2023 9:30 AM HIGH SCHOOL LIBRARY MEDIA SPECIALIST Anticoagulation Visit Department of Anticoagulation in [place], [place] [address] [place] [phone] Stefan Salomon M.D. [address] [place] [phone] 09/24/2023 10:15 AM CDT Clinical Communication Virtual Review in [place], [place] [address] [place] [address] 09/25/2023 9:40 AM CDT Office Visit Department of Dermatology in [place], [place] [address] [place] [phone] Kira Hannah, HECTOR, C.N.P., M.S.N. [address] [place] [phone] Jordan Riojas M.D. [address] [place] [phone] documented as of this encounter Visit Diagnoses Not on filedocumented in this encounter Additional Health Concerns Assessment Noted Time PHQ-9 Depression Total Score: 0 07/09/19 23 8:29 AM HIGH SCHOOL LIBRARY MEDIA SPECIALIST documented as of this encounter Care Teams Hospital Administrator Relationship Specialty Start Date End Date Stefan Salomon M.D. [address] [place] [phone] PCP - General Family Medicine 07/09/22 Anticoagulation Team 07/09/22 documented as of this encounter
--- OUTSIDE RECORDS SUMMARY | 2023-07-09 07:59 | XMS_ITS | Encounter Summary ---
Author Name Unknown Organization [facility] Address [address] [place] [address] Care Team Providers Care Framer Name Role Phone Stefan Salomon M.D. Primary Care Provider [phone] Reason for Referral * Outpatient (Routine) - Closed Specialty Diagnoses / Procedures Referred By Contac t Referred To Contact Diagnoses Preoperative Exam Procedures ECG 12 Lead Yue Alonso M.D. [address] [place] [phone] [facility] Referral ID Status Reason Start Date Expiration Date Visits Re quested Visits Authorized [id number] Closed 07/09/2022 07/09/2023 1 1 NESS ANALYSIS ANALYST * Outpatient (Routine) - Authorized Specialty Diagnoses / Procedures Referred By Contac t Referred To Contact Yue Alonso M.D. [address] [place] [phone] [facility] Region Referral ID Status Reason Start Date Expiration Date V isits Requested Visits Authorized [id number] Authorized 07/09/2022 07/08/2025 1 1 NESS ANALYSIS ANALYST Reason for Visit * Reason Comments Pre-op Exam Colonoscopy with Dr. Willson on 07/16 * Appointment Request (Routine) - Closed Specialty Diagnoses / Procedures Referred By Contac t Referred To Contact Family Medicine Referral ID Status Reason Start Date Expiration Date Visits Re quested Visits Authorized [id number] Closed 03/13/2022 03/13/2023 1 1 Encounter Details Date Type Department Care Team (Late st Contact Info) Description 07/09/2022 7:30 AM BUSINESS ANALYSIS ANALYST Office Visit Department of Family Medicine, [facility], in [place], [place] [address] [facility] [place] [phone] Yeu Alonso M.D. [address] [place] [phone] Preoperative Exam (Primary Dx); Stasis Ulcer With [...] How often do you attend muslim or rastafari serv ices? Never 07/09/2022 Do [...] Answer Date Recorded PHQ-2 Score 0 07/09/2022 [facility] - Occupational Stress Questionnaire Answer Date [...] Gender Identity Male 07/02/2017 9:12 AM BUSINESS ANALYSIS ANALYST Sexual Orientation Straight 07/02/2017 9: 12 AM BUSINESS ANALYSIS ANALYST documented as of this encounter Last Filed Vital Signs Vital Sign Reading Time Taken Comments Blood Pressure 162/78 07/09/2022 7:39 AM BUSINESS ANALYSIS ANALYST Pulse 68 07/09/2022 7:27 AM BUSINESS ANALYSIS ANALYST Temperature 36.1 ??C (96.9 ??F) 07/09/2022 7:27 AM CS T Respiratory Rate 18 07/09/2022 7:27 AM BUSINESS ANALYSIS ANALYST Oxygen Saturation 96% 07/09/2022 7:27 AM BUSINESS ANALYSIS ANALYST Inhaled Oxygen Concentration - - Weight 99.2 kg (218 lb 12.9 oz) 07/09/2022 7:27 AM BUSINESS ANALYSIS ANALYST Height 175.7 cm (5' 9.17) 07/09/2022 7:27 AM CS T Body Mass Index 32.15 07/09/2022 7:27 AM BUSINESS ANALYSIS ANALYST documented in this encounter H&P Notes * [...] 12/06/2014 Varicose Vein Lower Extremity With Ulcer ([facility]) Past Surgical History Past Surgical History: Procedure [...] Friends and Family: Once a week Attends Alevism Services: Never Active Member of Clubs or [...] - Primary Care nurse visit (clinic) - [facility]; Future Wesleyantonio Bautista is a 71 y.o. [...] Care forNoncardiac Surgery: A Report of the [place] [employer] /[employer] TaskForce on Practice Guidelines. Journal of the [place] [employer] 2007; 50: [id number]) NESS ANALYSIS ANALYST documented in this encounter Plan of Treatment Upcoming Encounters Date Type Department Care Team (Latest Contact Info) Description 08/02/2023 8:50 AM BUSINESS ANALYSIS ANALYST Appointment Department of Laboratory Medicine in [address] [phone] Stefan Salomon M.D. [address] [place] [phone] 08/02/2023 9:30 AM BUSINESS ANALYSIS ANALYST Anticoagulation Visit Department of Anticoagulation in [address] [phone] Stefan Salomon M.D. [address] [place] [phone] 09/24/2023 10:15 AM CDT Clinical Communication Virtual Review in [place], [place] [address] [place] [address] 09/25/2023 9:40 AM CDT Office Visit Department of Dermatology in [place], [place] [address] [place] [phone] Kira Hannah, HECTOR, C.N.P., M.S.N. [address] [place] [phone] Jordan Riojas M.D. [address] [place] [phone] Scheduled Referrals Name Type Priority Associated Diagnoses Orde r Schedule Primary Care nurse visit (clinic) - [facility] Outpatient Referral Routine Expected: 07/16/2022 (Approximate), Expires: 10/07/2023 documented as of this encounter Results * ECG 12 Lead (07/09/2022 8:57 AM BUSINESS ANALYSIS ANALYST) Ventricular Rate ECG/Min 58 BPM MUSE [place] Interval 168 ms MUSE QRSD Interval 114 ms MUSE QT Interval 430 ms MUSE QTC Interval 422 ms MUSE P [place] 18 degrees MUSE R [place] -1 degrees MUSE T Wave [place] 32 degrees MUSE 07/09/2022 8:57 AM BUSINESS ANALYSIS ANALYST 07/09/2022 9:36 AM BUSINESS ANALYSIS ANALYST Impressions MUSE - 07/09/2022 9:00 AM BUSINESS ANALYSIS ANALYST Poor data quality Sinus bradycardia Cannot rule [...] Score: 0 07/09/19 23 8:29 AM BUSINESS ANALYSIS ANALYST documented as of this encounter Care Teams Framer Relationship Specialty Start Date End Date Stefan Salomon M.D. [address] [phone] PCP - General Family Medicine 07/09/22 Anticoagulation Team 07/09/22 documented as of this encounter
--- OUTSIDE RECORDS SUMMARY | 2023-07-09 07:59 | XMS_ITS | Encounter Summary ---
Author Name Unknown Organization [facility] Address [address] [place] [address] Care Team Providers Care Certified Medical Coding Specialist Name Role Phone Stefan Salomon M.D. Primary Care Provider [phone] Reason for Referral * Outpatient (Routine) - Authorized Specialty Diagnoses / Procedures Referred By Contac t Referred To Contact Yue Alonso M.D. [address] [place] [address] [facility] Region Referral ID Status Reason Start Date Expiration Date V isits Requested Visits Authorized [id number] Authorized 07/09/2022 07/08/2025 1 1 Scheduling Instructions Coordinate with Lab appt (when Possible) a few days prior to Provider appt. Last Medicare Annual Wellness Visit 07/09/22. Due on or after 07/10/23. TRONICS TECHNICIAN Reason for Visit * Reason Comments Medicare Annual Wellness Visit Subsequen t * Outpatient (Routine) - Closed Specialty Diagnoses / Procedures Referred By Contac t Referred To Contact David Alvarenga P.A.-C., P.A. [address] [place] [address] [facility] Region Referral ID Status Reason Start Date Expiration Date Visits Re quested Visits Authorized [id number] Closed 07/06/2022 07/05/2025 1 1 Encounter Details Date Type Department Care Team (Late st Contact Info) Description 07/09/2022 7:45 AM ELECTRONICS TECHNICIAN Office Visit Department of Family Medicine, [facility], in [place], [place] [address] [place] [address] David Alvarenga P.A.-C., P.A. [address] [place] [address] Verenice Yates, Saundra [address] [phone] Annual Medicare Examination Return (Primary [...] often do you attend roman catholic or restorationist serv ices? Never 07/09/2022 Do you belong [...] file Gender Identity Male 07/02/2017 9:12 AM ELECTRONICS TECHNICIAN Sexual Orientation Straight 07/02/2017 9: 12 AM ELECTRONICS TECHNICIAN documented as of this encounter Patient Instructions * Patient Instructions* Verenice Yates RKimberly. - 07/09/2022 7:45 AM ELECTRONICS TECHNICIAN Thank you for coming in today! Consider: [...] - nurse visit blood pressure check recommended. TRONICS TECHNICIAN documented in this encounter Progress Notes * [...] reviewed and patient provided with printed copy TRONICS TECHNICIAN documented in this encounter Plan of Treatment Upcoming Encounters Date Type Department Care Team (Latest Contact Info) Description 08/02/2023 8:50 AM ELECTRONICS TECHNICIAN Appointment Department of Laboratory Medicine in [address] [phone] Stefan Salomon M.D. [address] [place] [phone] 08/02/2023 9:30 AM ELECTRONICS TECHNICIAN Anticoagulation Visit Department of Anticoagulation in [address] [phone] Stefan Salomon M.D. [address] [place] [phone] 09/24/2023 10:15 AM CDT Clinical Communication Virtual Review in [address] [address] 09/25/2023 9:40 AM CDT Office Visit Department of Dermatology in [place], [place] [address] [place] [phone] Kira Hannah, HECTOR, C.N.P., M.S.N. [address] [place] [phone] Joradn Riojas M.D. [address] [place] [phone] Scheduled Referrals Name Type Priority Associated Diagnoses Orde r Schedule Primary Care nurse visit (clinic) - [facility] Region; Medicare Annual Wellness Outpatient Referral Routine Expected: 07/09/2023 (Approximate), Expires: 07/09/2025 documented as of this encounter Visit Diagnoses Diagnosis Annual Medicare Examination Return- Primary documented in this encounter Additional Health Concerns Assessment Noted Time PHQ-9 Depression Total Score: 0 07/09/19 23 8:29 AM ELECTRONICS TECHNICIAN documented as of this encounter Care Teams Certified Medical Coding Specialist Relationship Specialty Start Date End Date Stefan Salomon M.D. [address] [place] [phone] PCP - General Family Medicine 07/09/22 Anticoagulation Team 07/09/22 documented as of this encounter
--- OUTSIDE RECORDS SUMMARY | 2023-07-09 07:59 | XMS_ITS | Encounter Summary ---
Author Name Unknown Organization [facility] Address [address] [place] [address] Care Team Providers Care Financial Service Rep Name Role Phone Stefan Slaomon M.D. Primary Care Provider [phone] Encounter Details Date Type Department Care Team (Latest Contact Info) Description 07/20/2022 7:46 AM PE ELECTRICAL ENGINEER - 07/20/2022 11:59 PM PE ELECTRICAL ENGINEER Hospital Encounter Department of Laboratory Medicine in [address] [phone] Yue Alonso M.D. [address] [place] [phone] Anticoagulant Therapy; Mutation Factor V Leiden Heterozygous [...] How often do you attend episcopalian or congregation serv ices? Never 07/09/2022 Do you belong [...] Answer Date Recorded PHQ-2 Score 0 07/09/2022 [facility] of Occupat ional Health - Occupational [...] file Gender Identity Male 07/02/2017 9:12 AM PE ELECTRICAL ENGINEER Sexual Orientation Straight 07/02/2017 9: 12 AM PE ELECTRICAL ENGINEER documented as of this encounter Medications [...] (Latest Contact Info) Description 08/02/2023 8:50 AM PE ELECTRICAL ENGINEER Appointment Department of Laboratory Medicine in [address] [phone] Stefan Salomon M.D. [address] [place] [phone] 08/02/2023 9:30 AM PE ELECTRICAL ENGINEER Anticoagulation Visit Department of Anticoagulation in [place] [address] [address] [place] [address] Stefan Salomon M.D. [address] [place] [phone] 09/24/2023 10:15 AM CDT Clinical Communication Virtual Review in [place], [place] [address] [place] [address] 09/25/2023 9:40 AM CDT Office Visit Department of Dermatology in [place], [place] [address] [place] [address] Kira Hannah, HECTOR, C.N.P., M.S.N. [address] [place] [phone] Jordan Riojas M.D. [address] [place] [phone] documented as of this encounter Procedures Procedure Name Priority Date/Time Associated Diagnosis Comments INR REFLEX, POCT, B Routine 07/20/2022 8:17 AM PE ELECTRICAL ENGINEER INR REFLEX, POCT, B Routine 07/20/2022 8:17 AM PE ELECTRICAL ENGINEER Anticoagulant Therapy Mutation Factor V Leiden Heterozygous (HCC) Monitoring For Therapeutic Drug Therapy Thrombosis Deep Vein Personal History documented in this encounter Results * INR Reflex, POCT, B (07/20/2022 8:17 AM PE ELECTRICAL ENGINEER) INR Reflex, POCT, B 2.8 07/20/2022 8:17 AM PE ELECTRICAL ENGINEER FB60 Comment: ----ADDITIONAL INFORMATION---- Standard intensity warfarin therapeutic range: 2.0 to 3.0 ?? High intensity warfarin therapeutic range: 2.5 to 3.5 Blood 07/20/2022 8:17 AM PE ELECTRICAL ENGINEER 07/20/2022 8:19 AM PE ELECTRICAL ENGINEER Generic Rals LAB POCT ORDERABLES - DEVICE [facility] [address] [place] [address], [place] FB60 [facility] in [place] [address] [place] [address] * INR Reflex, POCT, B (07/20/2022 8:17 AM PE ELECTRICAL ENGINEER) INR Reflex, POCT, B Collected DEFAULT 07/20/2022 8:18 AM PE ELECTRICAL ENGINEER FB60 Blood (Blood, Capillary) 07/20/2022 8:17 AM PE ELECTRICAL ENGINEER 07/20/2022 8:18 AM PE ELECTRICAL ENGINEER Yue Alonso M.D. LAB POCT ORDERABLES - DEVICE [facility] [address] [place] [address], [facility] FB60 [facility] in [place] [address] [place] [address] documented in this encounter Visit Diagnoses Diagnosis Anticoagulant Therapy Mutation Factor V Leiden Heterozygous (HCC) Monitoring For Therapeutic Drug Therapy Thrombosis Deep Vein Personal History documented in this encounter Additional Health Concerns Assessment Noted Time PHQ-9 Depression Total Score: 0 07/09/19 23 8:29 AM PE ELECTRICAL ENGINEER documented as of this encounter Care Teams Financial Service Rep Relationship Specialty Start Date End Date Stefan Salomon M.D. [address] [place] [phone] PCP - General Family Medicine 07/09/22 Anticoagulation Team 07/09/22 documented as of this encounter
--- OUTSIDE RECORDS SUMMARY | 2023-07-09 07:59 | XMS_ITS | Encounter Summary ---
Author Name Unknown Organization [facility] Address [address] [place] [address] Care Team Providers Care Nurse Ob Name Role Phone Stefan Salomon M.D. Primary Care Provider [phone] Reason for Visit * Outpatient (Routine) - Canceled Specialty Diagnoses / Procedures Referred By Contdayana t Referred To Contact Anticoagulation Yue Alonso M.D. [address] [place] [address] [facility] Region Referral ID Status Reason Start Date Expiration Date V isits Requested Visits Authorized [id number] Canceled 11/09/2021 11/09/2022 156 156 Encounter Details Date Type Department Care Team (Latest Contact Info) Description 07/20/2022 8:30 AM CUT ORDER HAND Anticoagulation Visit Department of Anticoagulation in [place], [place] [address] [place] [phone] Yue Alonso M.D. [address] [place] [phone] Anticoagulant Therapy (Primary Dx); Mutation Factor V Leiden Heterozygous (HCC); Monitoring For Therapeutic Drug Therapy; Thrombosis Deep Vein Personal History; Shelter (Current) Anticoagulant Treatment Social History Tobacco Use [...] How often do you attend shinto or congregation serv ices? Never 07/09/2022 Do [...] Answer Date Recorded PHQ-2 Score 0 07/09/2022 [facility] of Occupat ional Health - Occupational Stress [...] file Gender Identity Male 07/02/2017 9:12 AM CUT ORDER HAND Sexual Orientation Straight 07/02/2017 9: 12 AM CUT ORDER HAND documented as of this encounter Patient Instructions * Patient Instructions* Kaleb Alva RKimberly. - 07/20/2022 8:30 AM CUT ORDER HAND Your next INR will be in 8 weeks. To reschedule your appointment or for questions about your warfarin, please call Primary Care Anticoagulation Program at [phone] from 7:30 am to 4:30 pm. Saturday-Saturday [...] if you start any herbal or other llpy-pnf-agmebls product (check with your doctor, a nurse, or pharmacist). If you change your diet significantly. If you decide to stop or start using tobacco or alcohol. If you notice unusual bruising or bleeding. If you notice dark, tarry, or bright red stools or blood in your urine. If you have a painful and swollen calf. ORDER HAND documented in this encounter Progress Notes * [...] questions. Total time spent with patient: N/A ORDER HAND documented in this encounter Plan of Treatment Upcoming Encounters Date Type Department Care Team (Latest Contact Info) Description 08/02/2023 8:50 AM CUT ORDER HAND Appointment Department of Laboratory Medicine in [address] [phone] Stefan Salomon M.D. [address] [place] [phone] 08/02/2023 9:30 AM CUT ORDER HAND Anticoagulation Visit Department of Anticoagulation in [place], [place] [address] [place] [phone] Stefan Salomon M.D. [address] [place] [phone] 09/24/2023 10:15 AM CDT Clinical Communication Virtual Review in [place], [place] [address] [place] [address] 09/25/2023 9:40 AM CDT Office Visit Department of Dermatology in [place], [place] [address] [place] [phone] Kira Hannah, HECTOR, C.N.P., M.S.N. [address] [place] [phone] Jordan Riojas M.D. [address] [place] [phone] documented as of this encounter Results * INR Reflex, POCT, B (09/13/2022 3:53 PM CDT) INR Reflex, POCT, B Collected DEFAULT 09/13/2022 3:55 PM CDT CNFL Blood (Blood, Capillary) 09/13/2022 3:53 PM CDT 09/13/2022 3:55 PM CDT Stefan Salomon M.D. LAB POCT ORDERABLES - DEVICE [facility] [address] [place] [id number], [facility] CNFL [facility] in [address] [address] documented in this encounter Visit Diagnoses Diagnosis Anticoagulant Therapy- Primary Mutation Factor V Leiden Heterozygous (HCC) Monitoring For Therapeutic Drug Therapy Thrombosis Deep Vein Personal History Fiber Technician (Current) Anticoagulant Treatment documented in this encounter Additional Health Concerns Assessment Noted Time PHQ-9 Depression Total Score: 0 07/09/19 23 8:29 AM CUT ORDER HAND documented as of this encounter Care Teams Nurse Ob Relationship Specialty Start Date End Date Stefan Salomon M.D. [address] [place] [phone] PCP - General Family Medicine 07/09/22 Anticoagulation Team 07/09/22 documented as of this encounter
== END 2023-07-09 07:51 | disposition home or self-care (01) ==
LOC: WOUND 07:50
PROVIDERS: PCP Student in an Organized Health Care Education/Training Program; Visit Provider Nurse Practitioner Family
DX: I87.312 Chronic venous hypertension (idiopathic) with ulcer of left lower extremity (principal); L97.328 Non-pressure chronic ulcer of left ankle with other specified severity
CPT/HCPCS: 15271; Q4158

== ENCOUNTER 2023-07-23 08:07 | Outpatient (CLI) | payer MEDICARE, BC, SELFPAY ==
--- OUTSIDE RECORDS SUMMARY | 2023-07-23 08:10 | XMS_ITS | Clinical Summary ---
Author Name Unknown Organization [facility] Address [place], [place] [address] Care Team Providers Care Improvement Nurse Name Role Phone Yue Alonso Thomasmedhat ELIZA [...] extremity 07/13/2016 Overview: Overview: Saw Neurologist at [facility] on 09/16/2009. MRI lumbar spine done on [...] Department Care Team Description 05/10/2023 9:30 AM HOUSEKEEPING CLEANER Office Visit [facility] [address] [place] [address] Bhavik Benson, AuD Hearing Aid 05/10/2023 Travel [...] Comments Blood Pressure 117/67 05/13/2021 2:55 PM HOUSEKEEPING CLEANER Pulse 103 05/13/2021 2:55 PM HOUSEKEEPING CLEANER Temperature 36.9 ??C (98.4 ??F) 05/13/2021 2:55 PM CS T Respiratory Rate 18 05/13/2021 2:55 PM HOUSEKEEPING CLEANER Oxygen Saturation 99% 05/13/2021 2:55 PM HOUSEKEEPING CLEANER Inhaled Oxygen Concentration - - Weight 97.8 kg (215 lb 9.8 oz) 07/04/2022 11:35 AM HOUSEKEEPING CLEANER Height 175.7 cm (5' 9.17) 07/04/2022 11:[address] Body Mass Index 31.68 07/04/2022 11:35 AM HOUSEKEEPING CLEANER Plan of Treatment Health Maintenance Due Date [...] 8:51 AM 12/27/2014 12:46 PM Care Teams Improvement Nurse Relationship Specialty Start Date End Date Yue Alosno MBBS [address] [place] [address] [facility] [place] [address] PCP - General Family Practice 06/26/22
--- OUTSIDE RECORDS SUMMARY | 2023-07-23 08:10 | XMS_ITS | Clinical Summary ---
Author Name Unknown Organization [facility] Address [address] [place] [address] Care Team Providers Care Driver'S Education Instructor Name Role Phone Stefan Salomon M.D. Primary Care Provider [phone] Source Comments Patient records contain information from all sites at [facility]. For routine questions regarding patient records, call [phone] during business hours, M-F 8:00 AM - 5:00 PM Central Time. Record requests for emergency care only can be directed to [phone] at any time.[facility] Allergies Active Allergy Reactions Criticality Noted Date Comments Atorvastatin Myalgia 02/08/2017 Leg Pain/Cramps Zbnddvd-Erq-Pra Reductase Inhibitors Other (see comments) 09/10/2022 Medications Medication Sig Dispensed Refills Start Date End Date Status hydrocortisone (HYTONE) 2.5 % cream Apply to rash/itch/irritatio n involving the face and skin folds twice daily as needed 30 g 2 06/13/19 22 Active fluocinonide (LIDEX) 0.05 % cream Apply twice daily to areas of rash/itch/irritatio n as needed. DO NOT use on face or skin folds 120 g 2 06/13/19 22 Active triamcinolone (KENALOG) 0.1 % cream Apply to rash/itch/irritatio n involving the trunk and extremities twice daily as needed. DO NOT use on face or skin folds. 454 g 1 06/05/19 23 Active acetaminophen (TYLENOL) 500 mg capsule Take 500 mg by mouth every 6 (six) hours as needed for pain. Takes 4,000 mg usually each day 0 Active fluorouraciL (EFUDEX) 5 % cream Apply 1 application. topically 2 (two) times a day. Apply to scalp for 2-3 weeks. 40 g 0 07/27/19 23 Active polyethylene glycol-electroly yung (GoLYTELY) 236-22.74-6.74 -5.86 gram solution Drink 1st portion of prep at 6 PM the evening before. 2nd portion must be started 3 hours before and finished 2 hours prior to report time 4000 mL 0 08/02/19 23 Active warfarin (COUMADIN) 5 mg tabletIndication s:Anticoagulant Therapy,Mutation Factor V Leiden Heterozygous (HCC),Monitoring For Therapeutic Drug Therapy,Thrombos is Deep Vein Personal History Please take as directed by your Anticoagulation Clinic. 130 tablet 3 10/19/19 23 Active gabapentin (NEURONTIN) 300 mg capsuleIndicatio ns:Insufficiency Venous,Chronic Pain Syndrome,Pain Limb Generalized,Pain Leg Bilateral,Pseudo gout Take 2 capsules (600 mg total) by mouth 3 (three) times a day. 540 capsule 3 02/26/20 23 Active Additional Information Patient taking differently:600 mg oral2 times daily, 2 tabs twice a day, Informant: Self, Reported on 07/19/2023 amLODIPine (NORVASC) 10 mg tablet TAKE ONE TABLET BY MOUTH EVERY DAY 90 tablet 3 03/20/20 23 Active traMADoL (ULTRAM) 50 mg tabletIndication s:Chronic Pain/Nonacute Pain Take 1-2 tablets (50-100 mg total) by mouth every 6 (six) hours as needed for pain Indications: Chronic Pain/Nonacute Pain. 240 tablet 0 07/08/19 24 Active losartan (COZAAR) 50 mg tablet TAKE 1 TABLET [50MG] BY MOUTH ONCE EVERY DAY 90 tablet 3 07/17/19 24 Active losartan (COZAAR) 50 mg tablet Take 1 tablet (50 mg total) by mouth daily. 90 tablet 3 08/02/19 23 024 Discontinued traMADoL (ULTRAM) 50 mg tabletIndication s:Chronic Pain/Nonacute Pain Take 1-2 tablets (50-100 mg total) by mouth every 6 (six) hours as needed for pain Indications: Chronic Pain/Nonacute Pain. 240 tablet 0 06/05/19 24 024 Discontinued(Re order) Active Problems Problem Noted Date Diagnosed Date [...] Limb Generalized 11/18/2011 Overview: Saw Neurologist at [facility] on 09/16/2009. MRI lumbar spine done [...] Encounters Date Type Department Care Team Description 07/19/2023 2:30 PM SAFETY INSTRUCTOR Clinical Communication Virtual Review in [address] [address] Pre-visit Intake 07/16/2023 Refill Department of Family Medicine, [facility], in [address] [address] Stefan Salomon M.D. Med Refill 07/09/2023 Orders Only [facility] PCP TH MNT Stefan Salomon M.D. 07/03/2023 Refill Department of [facility] Medicine, [facility], in [address] [address] Stefan Salomon M.D. Med Refill 06/21/2023 9:30 AM SAFETY INSTRUCTOR Anticoagulation Visit Department of Anticoagulation in [address] [address] Stefan Salomon M.D. Anticoagulant Therapy [Z79.01]; Mutation Factor V Leiden Heterozygous (HCC); Monitoring For Therapeutic Drug Therapy [Z51.81]; Thrombosis Deep Vein Personal History 06/21/2023 7:45 AM SAFETY INSTRUCTOR - 06/21/2023 11:59 PM SAFETY INSTRUCTOR Hospital Encounter Department of Laboratory Medicine in [address] [address] Stefan Salomon M.D. Anticoagulant Therapy [Z79.01]; Mutation Factor V Leiden Heterozygous (HCC); Monitoring For Therapeutic Drug Therapy [Z51.81]; Thrombosis Deep Vein Personal History Discharge Disposition: Home or Self Care 06/12/2023 4:30 PM SAFETY INSTRUCTOR Nurse Only Department of Family Medicine, [facility], in [address] [address] Stefan Salomon M.D. Olson, Beata E RJarret Nurse Visit (CSA enrollment) Discharge Disposition: Home or Self Care 06/12/2023 4:15 PM SAFETY INSTRUCTOR Office Visit Department of Family Medicine, [facility], in [address] [address] Stefan Salomon M.D. Chronic Pain Syndrome (Primary Dx); Arthritis Shoulder; Osteoarthritis; Degeneration Disc Cervical; Stasis Ulcer With Varicose Vein Left (HCC); Non-Pressure Chronic Ulcer Of Unspecified Part Of Right Lower Leg With Unspecified Severity (HCC); Activated Protein C Resistance (HCC); History Of Falling; Hypertension Essential Primary; Restless Leg Syndrome Discharge Disposition: Home or Self Care 06/05/2023 8:00 AM SAFETY INSTRUCTOR Anticoagulation Visit Department of Anticoagulation in [place], [place] [address] [place] [address] Stefan Salomon M.D. Anticoagulant Therapy [Z79.01] (Primary Dx); Mutation Factor V Leiden Heterozygous (HCC); Monitoring For Therapeutic Drug Therapy [Z51.81]; Thrombosis Deep Vein Personal History 06/04/2023 1:46 PM SAFETY INSTRUCTOR - 06/04/2023 11:59 PM SAFETY INSTRUCTOR Hospital Encounter Department of Laboratory Medicine in [address] [address] Stefan Salomon M.D. Anticoagulant Therapy [Z79.01]; Mutation Factor V Leiden Heterozygous (HCC); Monitoring For Therapeutic Drug Therapy [Z51.81]; Thrombosis Deep Vein Personal History Discharge Disposition: Home or Self Care 06/01/2023 Refill Department of Family Medicine, [facility], [address] [address] Stefan Salomon M.D. Med Refill 05/31/2023 Clinical Communication Department of Family Medicine, [facility], in [address] [address] Stefan Salomon M.D. 05/17/2023 10:00 AM SAFETY INSTRUCTOR Anticoagulation Visit Department of Anticoagulation in [address] [address] Stefan Salomon M.D. Anticoagulant Therapy [Z79.01] (Primary Dx); Mutation Factor V Leiden Heterozygous (HCC); Monitoring For Therapeutic Drug Therapy [Z51.81]; Thrombosis Deep Vein Personal History; Hypertension Essential Primary; Hyperlipidemia; Vein Pumper (Current) Anticoagulant Treatment 05/17/2023 7:20 AM SAFETY INSTRUCTOR - 05/17/2023 11:59 PM SAFETY INSTRUCTOR Hospital Encounter Department of Laboratory Medicine in [address] [address] Stefan Salomon M.D. Anticoagulant Therapy [Z79.01]; Mutation Factor V Leiden Heterozygous (HCC); Monitoring For Therapeutic Drug Therapy [Z51.81]; Thrombosis Deep Vein Personal History Discharge Disposition: Home or Self Care 05/01/2023 Refill Department of Family Medicine, [facility], in [address] [address] Stefan Salomon M.D. Med Refill 04/22/2023 8:00 AM SAFETY INSTRUCTOR Anticoagulation Visit Department of Anticoagulation in [place], [place] [address] [place] [address] Stefan Salomon M.D. Anticoagulant Therapy [Z79.01] (Primary Dx); Mutation Factor V Leiden Heterozygous (HCC); Monitoring For Therapeutic Drug Therapy [Z51.81]; Thrombosis Deep Vein Personal History from Last 3 Months Immunizations Name Administration [...] How often do you attend tenriism or confucianism serv ices? Never 07/09/2022 Do [...] Answer Date Recorded PHQ-2 Score 0 06/12/2023 [facility] [place] of Occupat ional Health - Occupational Stress [...] file Gender Identity Male 07/02/2017 9:12 AM SAFETY INSTRUCTOR Sexual Orientation Straight 07/02/2017 9: 12 AM SAFETY INSTRUCTOR Last Filed Vital Signs Vital Sign Reading Time Taken Comments Blood Pressure 148/82 06/12/2023 4:23 PM SAFETY INSTRUCTOR Pulse 63 06/12/2023 4:23 PM SAFETY INSTRUCTOR Temperature 36.6 ??C (97.9 ??F) 06/12/2023 4:23 PM CS T Respiratory Rate 18 06/12/2023 4:23 PM SAFETY INSTRUCTOR Oxygen Saturation 94% 06/12/2023 4:23 PM SAFETY INSTRUCTOR Inhaled Oxygen Concentration - - Weight 95.6 kg (210 lb 12.2 oz) 06/12/2023 4:23 PM SAFETY INSTRUCTOR Height 176.5 cm (5' 9.49) 08/01/2022 9:59 AM CS T Body Mass Index 30.69 08/01/2022 9:59 AM SAFETY INSTRUCTOR Plan of Treatment Upcoming Encounters Date Type Department Care Team (Latest Contact Info) Description 07/25/2023 3:40 PM SAFETY INSTRUCTOR Office Visit Department of Dermatology in [place], [place] [address] [place] [address] Crystal Quintero M.D. [address] [place] [address] 08/02/2023 8:50 AM SAFETY INSTRUCTOR Appointment Department of Laboratory Medicine in [address] [phone] Stefan Salomon M.D. [address] [place] [phone] 08/02/2023 9:30 AM SAFETY INSTRUCTOR Anticoagulation Visit Department of Anticoagulation in [place], [place] [address] [place] [address] Stefan Salomon M.D. [address] [place] [phone] Health Maintenance Due Date Last Done Comments [...] 06/12/2023 Visit: Chronic Disease, age 18+ 06/12/2024 4 Fasting Glucose for Diabetes Screening 04/19/2026 04/19/2023, 04/30/2022, 06/08/2021, Additional history exists DTaP,Tdap,and Td Vaccines (6 - Td or Tdap) 04/20/2031 04/20/2021, 12/30/2020, 01/12/2008, Additional history exists Abdominal Aortic Aneurysm (A AA) Screen Completed 11/09/2014, 01/11/2012, 09/07/2009, Additional history exists Hepatitis C Screening Completed 06/15/2016, 017 Pneumococcal vaccine (65+ years) Completed 07/02/19 18, 10/29/2014 Influenza Vaccine Completed 04/02/2023, , 04/20/2021, Additional history exists COVID-19 Vaccine Completed 05/23/2023, , 04/14/2021, Additional history exists Depression Screening (Annual PHQ-2) Completed 06/12/2023 Fall Risk Screen (Annual) Completed 06/12/2023 Medical Devices Implanted Type Area Economic Forecaster Device Identifier Shelf Expiration Date Model / Serial / Lot Mineralized Cancellous Bone 2.0 - Anne [id number] Implanted:Qty: 1 on 08/10/2015 Bone or Tissue Tooth [employer] Description:Device Manufactu rer - [employer]. Body Location - Other. tooth-13. Device Status Text - [id number]. Hardware E.G. Pins/Screws/Rk s Hardware e.g. pins/screws /rods Mouth Screw Rst Curly Taper Rp 4.3x13.0 - Anne [id number] Implanted:Qty: 1 on 07/03/2007 Hardware e.g. pins/screws /rods Tooth [employer] Description:Device Manufactu rer - [employer]. Body Location - Tooth 5. Device Status Text - [id number]. Abutment Nobrpl Farm Boss 3.5x5 - Anne [id number] Implanted:Qty: 1 on 03/03/2012 Hardware e.g. pins/screws /rods Tooth [employer] Description:Device Manufactu rer - [employer]. Body Location - Tooth 29. Device Status Text - [id number]. Screw Nobrpl Curly Taper Farm Boss 3.5x13.0 - Anne [id number] Implanted:Qty: 1 on 08/23/2014 Hardware e.g. pins/screws /rods Tooth [employer] Description:Device Manufactu rer - [employer]. Body Location - Other. tooth- 28. Device Status Text - [id number]. Screw Nobrpl Curly Taper Rp 4.3x10.0 - Anne [id number] Implanted:Qty: 1 on 08/10/2015 Hardware e.g. pins/screws /rods Tooth [employer] Description:Device Manufactu rer - [employer]. Body Location - Other. tooth- 20. Device Status Text - [id number]. Abutment Nobrpl Rp 4.3x3 - Anne [id number] Implanted:Qty: 1 on 02/08/2016 Hardware e.g. pins/screws /rods Tooth [employer] Description:Device Manufactu rer - [employer]. Body Location - Other. tooth- 11. Device Status Text - [id number]. Patch Dura-Guard 4x 4 - Anne [id number] Implanted:Qty: 1 on 08/19/1996 Mesh or Patch Synovis Description:Device Manufactu rer - [employer]ovis. Device Status Text - [id number]. Allograft Bioxclude Chorion 1cm X 2.5cm - Anne [id number] Implanted:Qty: 1 on 01/15/2014 Mesh or Patch Tooth Unknown Description:Device Manufactu rer - Unknown. Body Location - tooth-5. Device Status Text - [id number]. Allograft Bioxclude Chorion 1.5cm X 2cm - Anne [id number] Implanted:Qty: 1 on 08/10/2015 Mesh or Patch Other/Legacy - See Implant Description Unknown Description:Device Manufactu rer - Unknown. Body Location - Other. Left. Device Status Text - [id number]. Procedures Procedure Name Priority Date/Time Associated Diagnosis Comments INR REFLEX, POCT, B Routine 06/21/2023 7:49 AM SAFETY INSTRUCTOR Anticoagulant Therapy [Z79.01] Mutation Factor V Leiden Heterozygous (HCC) Monitoring For Therapeutic Drug Therapy [Z51.81] Thrombosis Deep Vein Personal History CBC WITH DIFFERENTIAL, B Routine 06/12/2023 5:30 PM SAFETY INSTRUCTOR Restless Leg Syndrome FERRITIN, S Routine 06/12/2023 5:30 PM SAFETY INSTRUCTOR Restless Leg Syndrome INR REFLEX, POCT, B Routine 06/04/2023 1:50 PM SAFETY INSTRUCTOR Anticoagulant Therapy [Z79.01] Mutation Factor V Leiden Heterozygous (HCC) Monitoring For Therapeutic Drug Therapy [Z51.81] Thrombosis Deep Vein Personal History INR REFLEX, POCT, B Routine 05/17/2023 7:29 AM SAFETY INSTRUCTOR Anticoagulant Therapy [Z79.01] Mutation Factor V Leiden Heterozygous (HCC) Monitoring For Therapeutic Drug Therapy [Z51.81] Thrombosis Deep Vein Personal History from Last 3 Months Results * INR Reflex, POCT, Blood (06/21/2023 7:49 AM SAFETY INSTRUCTOR) Only the most recent of3 resultswithin the time period is included. Pathologist [facility] INR Reflex, POCT, B 2.5 06/21/2023 7:49 AM SAFETY INSTRUCTOR CNFL Comment: ----ADDITIONAL INFORMATION---- Standard intensity warfarin therapeutic range: 2.0 to 3.0 ?? High intensity warfarin therapeutic range: 2.5 to 3.5 Blood (Blood, Capillary) 06/21/2023 7:49 AM SAFETY INSTRUCTOR 06/21/2023 7:49 AM SAFETY INSTRUCTOR Stefan Salomon M.D. LAB POCT ORDERABLES - DEVICE Performing Organization Address City/State/[facility] Co de Phone Number [facility] [address] [place] [address], [facility] [address] * CBC with Differential, Blood (06/12/2023 5:30 PM SAFETY INSTRUCTOR) Pathologist [facility] Hemoglobin 13.6 13.2 - 16.6 g/dL 06/12/2023 5:44 PM SAFETY INSTRUCTOR CNFL Hematocrit 41.6 38.3 - 48.6 % 06/12/2023 5:44 PM SAFETY INSTRUCTOR CNFL Erythrocytes 4.44 4.35 - 5.65 x10(12)/L 06/12/2023 5:44 PM SAFETY INSTRUCTOR CNFL MCV 93.7 78.2 - 97.9 fL 06/12/2023 5:44 PM SAFETY INSTRUCTOR CNFL RBC Distrib Width 13.0 11.8 - 14.5 % 06/12/2023 5:44 PM SAFETY INSTRUCTOR CNFL Platelet Count 208 135 - 317 x10(9)/L 06/12/2023 5:44 PM SAFETY INSTRUCTOR CNFL Leukocytes 5.7 3.4 - 9.6 x10(9)/L 06/12/2023 5:44 PM SAFETY INSTRUCTOR CNFL Neutrophils 3.52 1.56 - 6.45 x10(9)/L 06/12/2023 5:44 PM SAFETY INSTRUCTOR CNFL Lymphocytes 1.23 0.95 - 3.07 x10(9)/L 06/12/2023 5:44 PM SAFETY INSTRUCTOR CNFL Monocytes 0.53 0.26 - 0.81 x10(9)/L 06/12/2023 5:44 PM SAFETY INSTRUCTOR CNFL Eosinophils 0.34 0.03 - 0.48 x10(9)/L 06/12/2023 5:44 PM SAFETY INSTRUCTOR CNFL Basophils 0.05 0.01 - 0.08 x10(9)/L 06/12/2023 5:44 PM SAFETY INSTRUCTOR CNFL Blood (Blood, Venous) 06/12/2023 5:30 PM SAFETY INSTRUCTOR 06/12/2023 5:31 PM SAFETY INSTRUCTOR Stefan Salomon M.D. LAB BLOOD ADD-ON Performing Organization Address City/[facility]/ZIP Co de Phone Number [facility] [address] [place] [id number], [place] CNFL [facility] in [address] [address] * Ferritin (06/12/2023 5:30 PM SAFETY INSTRUCTOR) Ferritin, S 110 31 - 409 mcg/L 06/13/2023 1:19 PM SAFETY INSTRUCTOR RDWG Comment: Biotin has been identified by the mixer operator helper hot metal as a potential interfering substance. Higher concentrations of biotin may be found in multivitamins, hair/nail supplements, and workout supplements. If the result does not match clinical observations, repeat testing after patient refrains from the use of supplements for at least 12 hours. Blood (Blood, Venous) 06/12/2023 5:30 PM SAFETY INSTRUCTOR 06/13/2023 12:18 PM SAFETY INSTRUCTOR Stefan Salomon M.D. LAB BLOOD ADD-ON [facility] [address] [place], [place] [address]aramis [place] [address], [place] RDWG [facility] in [place] [address] [place] [address] from Last 3 Months Care Teams Driver'S Education Instructor Relationship Specialty Start Date End Date Stefan Salomon M.D. [address] [place] [phone] PCP - General Family Medicine 07/09/22 Anticoagulation Team 07/09/22
--- OUTSIDE RECORDS SUMMARY | 2023-07-23 08:11 | XMS_ITS | Referral Summary ---
Author Name Unknown Organization [facility] Address [address] [place] [address] Care Team Providers Care Thread Twister Name Role Phone Stefan Salomon M.D. Primary Care Provider [phone] Source Comments Patient records contain information from all sites at [facility]. For routine questions regarding patient records, call [phone] during business hours, M-F 8:00 AM - 5:00 PM Central Time. Record requests for emergency care only can be directed to [phone] at any time.[facility] Encounters Date Type Department Care Team Description 07/19/2023 2:30 PM SUPERVISOR ROLLING ROOM Clinical Communication Virtual Review in [place], [place] 200 [place], [place] [id number] Pre-visit Intake 07/16/2023 Refill Department of Family Medicine, [facility], in [address] [address] Stefan Salomon M.D. Med Refill 07/09/2023 Orders Only [facility] Stefan Salomon M.D. 07/03/2023 Refill Department of Family Medicine, [facility], in [address] [address] Stefan Salomon M.D. Med Refill 06/21/2023 7:45 AM SUPERVISOR ROLLING ROOM - 06/21/2023 11:59 PM SUPERVISOR ROLLING ROOM Hospital Encounter Department of Laboratory Medicine in [address] [address] Stefan Salomon M.D. Anticoagulant Therapy [Z79.01]; Mutation Factor V Leiden Heterozygous (HCC); Monitoring For Therapeutic Drug Therapy [Z51.81]; Thrombosis Deep Vein Personal History Discharge Disposition: Home or Self Care 06/21/2023 9:30 AM SUPERVISOR ROLLING ROOM Anticoagulation Visit Department of Anticoagulation in [place], [place] [address] [place] [place] [phone] Stefan Salomon M.D. Anticoagulant Therapy [Z79.01]; Mutation Factor V Leiden Heterozygous (HCC); Monitoring For Therapeutic Drug Therapy [Z51.81]; Thrombosis Deep Vein Personal History 06/12/2023 4:30 PM SUPERVISOR ROLLING ROOM Nurse Only Department of Family Medicine, [facility], in [address] [address] Stefan Salomon M.D. Olson, Beata E RJarret Nurse Visit (CSA enrollment) Discharge Disposition: Home or Self Care 06/12/2023 4:15 PM SUPERVISOR ROLLING ROOM Office Visit Department of Family Medicine, [facility], in [address] [address] Stefan Salomon M.D. Chronic Pain Syndrome (Primary Dx); Arthritis Shoulder; Osteoarthritis; Degeneration Disc Cervical; Stasis Ulcer With Varicose Vein Left (HCC); Non-Pressure Chronic Ulcer Of Unspecified Part Of Right Lower Leg With Unspecified Severity (HCC); Activated Protein C Resistance (HCC); History Of Falling; Hypertension Essential Primary; Restless Leg Syndrome Discharge Disposition: Home or Self Care 06/05/2023 8:00 AM SUPERVISOR ROLLING ROOM Anticoagulation Visit Department of Anticoagulation in [address] [address] Stefan Salomon M.D. Anticoagulant Therapy [Z79.01] (Primary Dx); Mutation Factor V Leiden Heterozygous (HCC); Monitoring For Therapeutic Drug Therapy [Z51.81]; Thrombosis Deep Vein Personal History 06/04/2023 1:46 PM SUPERVISOR ROLLING ROOM - 06/04/2023 11:59 PM SUPERVISOR ROLLING ROOM Hospital Encounter Department of Laboratory Medicine in [address] [address] Stefan Salomon M.D. Anticoagulant Therapy [Z79.01]; Mutation Factor V Leiden Heterozygous (HCC); Monitoring For Therapeutic Drug Therapy [Z51.81]; Thrombosis Deep Vein Personal History Discharge Disposition: Home or Self Care 06/01/2023 Refill Department of Family Medicine, [facility], in [address] [address] Stefan Salomon M.D. Med Refill 05/31/2023 Clinical Communication Department of Family [facility], [facility], in [address] [address] Stefan Salomon M.D. 05/17/2023 7:20 AM SUPERVISOR ROLLING ROOM - 05/17/2023 11:59 PM SUPERVISOR ROLLING ROOM Hospital Encounter Department of Laboratory Medicine in [address] [address] Stefan Salomon M.D. Anticoagulant Therapy [Z79.01]; Mutation Factor V Leiden Heterozygous (HCC); Monitoring For Therapeutic Drug Therapy [Z51.81]; Thrombosis Deep Vein Personal History Discharge Disposition: Home or Self Care 05/17/2023 10:00 AM SUPERVISOR ROLLING ROOM Anticoagulation Visit Department of Anticoagulation in [place], [place] [address] [place] [phone] Stefan Salomon M.D. Anticoagulant Therapy [Z79.01] (Primary Dx); Mutation Factor V Leiden Heterozygous (HCC); Monitoring For Therapeutic Drug Therapy [Z51.81]; Thrombosis Deep Vein Personal History; Hypertension Essential Primary; Hyperlipidemia; Alf (Current) Anticoagulant Treatment 05/01/2023 Refill Department of Family Medicine, [facility], in [address] [address] Stefan Salomon M.D. Med Refill 04/22/2023 8:00 AM SUPERVISOR ROLLING ROOM Anticoagulation Visit Department of Anticoagulation in [address] [address] Stefan Allen M.D. Anticoagulant Therapy [Z79.01] (Primary Dx); Mutation Factor V Leiden Heterozygous (HCC); Monitoring For Therapeutic Drug Therapy [Z51.81]; Thrombosis Deep Vein Personal History from Last 3 Months Allergies Active Allergy Reactions Criticality Noted Date Comments Atorvastatin Myalgia 02/08/2017 Leg Pain/Cramps Bbtfopo-Jzu-Wtn Reductase Inhibitors Other (see comments) 09/10/2022 Medications [...] Limb Generalized 11/18/2011 Overview: Saw Neurologist at [facility] on 09/16/2009. MRI lumbar spine done [...] How often do you attend hoahaoism or yarsanism serv ices? Never 07/09/2022 Do [...] Answer Date Recorded PHQ-2 Score 0 06/12/2023 [facility] - [...] file Gender Identity Male 07/02/2017 9:12 AM SUPERVISOR ROLLING ROOM Sexual Orientation Straight 07/02/2017 9: 12 AM SUPERVISOR ROLLING ROOM Last Filed Vital Signs Vital Sign Reading Time Taken Comments Blood Pressure 148/82 06/12/2023 4:23 PM SUPERVISOR ROLLING ROOM Pulse 63 06/12/2023 4:23 PM SUPERVISOR ROLLING ROOM Temperature 36.6 ??C (97.9 ??F) 06/12/2023 4:23 PM CS T Respiratory Rate 18 06/12/2023 4:23 PM SUPERVISOR ROLLING ROOM Oxygen Saturation 94% 06/12/2023 4:23 PM SUPERVISOR ROLLING ROOM Inhaled Oxygen Concentration - - Weight 95.6 kg (210 lb 12.2 oz) 06/12/2023 4:23 PM SUPERVISOR ROLLING ROOM Height 176.5 cm (5' 9.49) 08/01/2022 9:59 AM CS T Body Mass Index 30.69 08/01/2022 9:59 AM SUPERVISOR ROLLING ROOM Plan of Treatment Upcoming Encounters Date Type Department Care Team (Latest Contact Info) Description 07/25/2023 3:40 PM SUPERVISOR ROLLING ROOM Office Visit Department of Dermatology in [place], [place] [address] [place] [phone] Crystal Quintero M.D. [address] [place] [address] 08/02/2023 8:50 AM SUPERVISOR ROLLING ROOM Appointment Department of Laboratory Medicine in [address] [phone] Stefan Salomon M.D. [address] [place] [phone] 08/02/2023 9:30 AM SUPERVISOR ROLLING ROOM Anticoagulation Visit Department of Anticoagulation in [place], [place] [address] [place] [address] Stefan Salomon M.D. [address] [place] [phone] Medical Devices Implanted Type Area Asphalt Tar And Gravel Roofer Device Identifier Shelf Expiration Date Model / Serial / Lot Mineralized Cancellous Bone 2.0 - Anne [id number] Implanted:Qty: 1 on 08/10/2015 Bone or Tissue Tooth [facility] Description:Device Manufactu rer - [employer] [facility]. Body Location - Other. tooth-13. Device Status Text - [id number]. Hardware E.G. Pins/Screws/Rk s Hardware e.g. pins/screws /rods Mouth Screw Rst Curly Taper Rp 4.3x13.0 - Anne [id number] Implanted:Qty: 1 on 07/03/2007 Hardware e.g. pins/screws /rods Tooth [employer] Description:Device Manufactu rer - [employer]. Body Location - Tooth 5. Device Status Text - [id number]. Abutment Nobrpl Candy Forming Machine Operator 3.5x5 - Anne [id number] Implanted:Qty: 1 on 03/03/2012 Hardware e.g. pins/screws /rods Tooth [employer] Description:Device Manufactu rer - [employer]. Body Location - Tooth 29. Device Status Text - [id number]. Screw Nobrpl Curly Taper Candy Forming Machine Operator 3.5x13.0 - Anne [id number] Implanted:Qty: 1 on 08/23/2014 Hardware e.g. pins/screws /rods Tooth [employer] Description:Device Manufactu rer - [employer]. Body Location - Other. tooth- 28. Device Status Text - [id number]. Screw Nobrpl Curly Taper Rp 4.3x10.0 - Anne [id number] Implanted:Qty: 1 on 08/10/2015 Hardware e.g. pins/screws /rods Tooth [employer] Description:Device Manufactu rer - [employer]. Body Location - Other. tooth- 20. Device Status Text - [id number]. Abutment Nobrpl Rp 4.3x3 - Anne [id number] Implanted:Qty: 1 on 02/08/2016 Hardware e.g. pins/screws /rods Tooth [employer] Description:Device Manufactu rer - [employer]. Body Location - Other. tooth- 11. Device Status Text - [id number]. Patch Dura-Guard 4x 4 - Anne [id number] Implanted:Qty: 1 on 08/19/1996 Mesh or Patch [employer] Description:Device Manufactu rer - [employer]. Device Status Text - [id number]. Allograft Bioxclude Chorion 1cm X 2.5cm - Anne [id number] Implanted:Qty: 1 on 01/15/2014 Mesh or Patch Tooth Unknown Description:Device Manufactu rer - Unknown. Body Location - tooth-5. Device Status Text - [id number]. Allograft Bioxclude Chorion 1.5cm X 2cm - Anne [id number] Implanted:Qty: 1 on 08/10/2015 Mesh or Patch Other/Legacy - See Implant Description Unknown Description:Device Manufactu rer - Unknown. Body Location - Other. Left. Device Status Text - [id number]. Procedures Procedure Name Priority Date/Time Associated Diagnosis Comments INR REFLEX, POCT, B Routine 06/21/2023 7:49 AM SUPERVISOR ROLLING ROOM Anticoagulant Therapy [Z79.01] Mutation Factor V Leiden Heterozygous (HCC) Monitoring For Therapeutic Drug Therapy [Z51.81] Thrombosis Deep Vein Personal History CBC WITH DIFFERENTIAL, B Routine 06/12/2023 5:30 PM SUPERVISOR ROLLING ROOM Restless Leg Syndrome FERRITIN, S Routine 06/12/2023 5:30 PM SUPERVISOR ROLLING ROOM Restless Leg Syndrome INR REFLEX, POCT, B Routine 06/04/2023 1:50 PM SUPERVISOR ROLLING ROOM Anticoagulant Therapy [Z79.01] Mutation Factor V Leiden Heterozygous (HCC) Monitoring For Therapeutic Drug Therapy [Z51.81] Thrombosis Deep Vein Personal History INR REFLEX, POCT, B Routine 05/17/2023 7:29 AM SUPERVISOR ROLLING ROOM Anticoagulant Therapy [Z79.01] Mutation Factor V Leiden Heterozygous (HCC) Monitoring For Therapeutic Drug Therapy [Z51.81] Thrombosis Deep Vein Personal History from Last 3 Months Results * INR Reflex, POCT, Blood (06/21/2023 7:49 AM SUPERVISOR ROLLING ROOM) Only the most recent of3 resultswithin the time period is included. INR Reflex, POCT, B 2.5 06/21/2023 7:49 AM SUPERVISOR ROLLING ROOM [facility] Comment: ----ADDITIONAL INFORMATION---- Standard intensity warfarin therapeutic range: 2.0 to 3.0 ?? High intensity warfarin therapeutic range: 2.5 to 3.5 Blood (Blood, Capillary) 06/21/2023 7:49 AM SUPERVISOR ROLLING ROOM 06/21/2023 7:49 AM SUPERVISOR ROLLING ROOM Stefan Salomon M.D. LAB POCT ORDERABLES - DEVICE Performing Organization Address City/State/[facility] Co de Phone Number [facility] [address] [place] [phone], [facility] in [address] [address] * CBC with Differential, Blood (06/12/2023 5:30 PM SUPERVISOR ROLLING ROOM) Hemoglobin 13.6 13.2 - 16.6 g/dL 06/12/2023 5:44 PM SUPERVISOR ROLLING ROOM CNFL Hematocrit 41.6 38.3 - 48.6 % 06/12/2023 5:44 PM SUPERVISOR ROLLING ROOM [facility] Erythrocytes 4.44 4.35 - 5.65 x10(12)/L 06/12/2023 5:44 PM SUPERVISOR ROLLING ROOM CN[facility] MCV 93.7 78.2 - 97.9 fL 06/12/2023 5:44 PM SUPERVISOR ROLLING ROOM CNFL RBC Distrib Width 13.0 11.8 - 14.5 % 06/12/2023 5:44 PM SUPERVISOR ROLLING ROOM [facility] Platelet Count 208 135 - 317 x10(9)/L 06/12/2023 5:44 PM SUPERVISOR ROLLING ROOM [facility] Leukocytes 5.7 3.4 - 9.6 x10(9)/L 06/12/2023 5:44 PM SUPERVISOR ROLLING ROOM CNFL Neutrophils 3.52 1.56 - 6.45 x10(9)/L 06/12/2023 5:44 PM SUPERVISOR ROLLING ROOM CNFL Lymphocytes 1.23 0.95 - 3.07 x10(9)/L 06/12/2023 5:44 PM SUPERVISOR ROLLING ROOM CN[facility] Monocytes 0.53 0.26 - 0.81 x10(9)/L 06/12/2023 5:44 PM SUPERVISOR ROLLING ROOM CN[facility] Eosinophils 0.34 0.03 - 0.48 x10(9)/L 06/12/2023 5:44 PM SUPERVISOR ROLLING ROOM CNFL Basophils 0.05 0.01 - 0.08 x10(9)/L 06/12/2023 5:44 PM SUPERVISOR ROLLING ROOM CNFL Blood (Blood, Venous) 06/12/2023 5:30 PM SUPERVISOR ROLLING ROOM 06/12/2023 5:31 PM SUPERVISOR ROLLING ROOM Stefna Salomon M.D. LAB BLOOD ADD-ON [facility] [address] [place] [address], [facility] in [address] [address] * Ferritin (06/12/2023 5:30 PM SUPERVISOR ROLLING ROOM) Ferritin, S 110 31 - 409 mcg/L 06/13/2023 1:19 PM SUPERVISOR ROLLING ROOM [facility] Comment: Biotin has been identified by the traffic officer as a potential interfering substance. Higher concentrations of biotin may be found in multivitamins, hair/nail supplements, and workout supplements. If the result does not match clinical observations, repeat testing after patient refrains from the use of supplements for at least 12 hours. Blood (Blood, Venous) 06/12/2023 5:30 PM SUPERVISOR ROLLING ROOM 06/13/2023 12:18 PM SUPERVISOR ROLLING ROOM Stefan Salomon M.D. LAB BLOOD ADD-ON [facility] [address] [place] [address], [facility] RDWG [facility] in [place] [address] [place] [address] from Last 3 Months Care Teams Thread Twister Relationship Specialty Start Date End Date Stefan Salomon M.D. [address] [place] [address] [place] [phone] PCP - General Family Medicine 07/09/22 Anticoagulation Team 07/09/22
--- OUTSIDE RECORDS SUMMARY | 2023-07-23 08:11 | XMS_ITS | Encounter Summary ---
Author Name Unknown Organization [facility] Address [address] [place] [address] Care Team Providers Care Paver Name Role Phone Stefan Salomon M.D. Primary Care Provider [phone] Reason for Visit * Outpatient (Routine) - Authorized Specialty Diagnoses / Procedures Referred By Contdayana t Referred To Contact Anticoagulation Diagnoses Anticoagulant Therapy Mutation Factor V Leiden Heterozygous (HCC) Monitoring For Therapeutic Drug Therapy Thrombosis Deep Vein Personal History Stefan Salomon M.D. [address] [address] [facility] Referral ID Status Reason Start Date Expiration Date V isits Requested Visits Authorized [id number] Authorized 02/01/2023 01/31/2026 300 300 Encounter Details Date Type Department Care Team (Latest Contact Info) Description 06/05/2023 8:00 AM EVENT SERVICES MANAGER Anticoagulation Visit Department of Anticoagulation in [place], [place] [address] [place] [address] Stefan Salomon M.D. [address] [place] [phone] Anticoagulant Therapy [Z79.01] (Primary Dx); Mutation [...] How often do you attend mormonism or mandaeism serv ices? Never 07/09/2022 Do [...] Answer Date Recorded PHQ-2 Score 0 07/09/[address] [facility] - Occupational Stress [...] file Gender Identity Male 07/02/2017 9:12 AM EVENT SERVICES MANAGER Sexual Orientation Straight 07/02/2017 9: 12 AM EVENT SERVICES MANAGER documented as of this encounter Patient Instructions * Patient Instructions* Jio David RKimberly. - 06/05/2023 8:00 AM EVENT SERVICES MANAGER Your next INR will be 06/21/23. You will need to call the Anticoagulation Program for warfarin dosing at the scheduled time for your nurse visit, as indicated on your Patient Appointment Guide (PAG). To reschedule your appointment or for questions about your warfarin, please call Primary Care Anticoagulation Program at [phone] from 7:30 am to 4:30 pm. Saturday-Saturday [...] if you start any herbal or other [id number]-[id number] product (check with your doctor, a nurse, or pharmacist). If you change your diet significantly. If you decide to stop or start using tobacco or alcohol. If you notice unusual bruising or bleeding. If you notice dark, tarry, or bright red stools or blood in your urine. If you have a painful and swollen calf. T SERVICES MANAGER documented in this encounter Progress Notes * [...] 17 days per consult with Anticoagulation [facility]. Provider consulted: Alfonso Nash- Anticoagulation [facility] Pt is on injectable anticoagulant: No. Plan used: Consult. See Anticoagulation Track Calendar for dosing and plan details. Anticoagulation Visit Summary: Patient repeats back dosing instructions, date of next INR, and has no further questions at this time. Total time spent with patient: N/A T SERVICES MANAGER documented in this encounter Plan of Treatment Upcoming Encounters Date Type Department Care Team (Latest Contact Info) Description 07/25/2023 3:40 PM EVENT SERVICES MANAGER Office Visit Department of Dermatology in [place], [place] [address] [place] [address] Crystal Quintero M.D. [address] [place] [address] 08/02/2023 8:50 AM EVENT SERVICES MANAGER Appointment Department of Laboratory Medicine in [address] [phone] Stefan Salomon M.D. [address] [place] [phone] 08/02/2023 9:30 AM EVENT SERVICES MANAGER Anticoagulation Visit Department of Anticoagulation in [place], [place] [address] [place] [address] Stefan Salomon M.D. [address] [place] [phone] documented as of this encounter Results * INR Reflex, POCT, Blood (06/21/2023 7:49 AM EVENT SERVICES MANAGER) INR Reflex, POCT, B 2.5 06/21/2023 7:49 AM EVENT SERVICES MANAGER [facility] Comment: ----ADDITIONAL INFORMATION---- Standard intensity warfarin therapeutic range: 2.0 to 3.0 ?? High intensity warfarin therapeutic range: 2.5 to 3.5 Blood (Blood, Capillary) 06/21/2023 7:49 AM EVENT SERVICES MANAGER 06/21/2023 7:49 AM EVENT SERVICES MANAGER Stefan Salomon M.D. LAB POCT ORDERABLES - DEVICE [facility] [address] [place] [address], [facility] CNFL [facility] in [address] [address] documented in this encounter Visit Diagnoses Diagnosis Anticoagulant Therapy [Z79.01]- Primary Mutation Factor V Leiden Heterozygous (HCC) Monitoring For Therapeutic Drug Therapy [Z51.81] Thrombosis Deep Vein Personal History documented in this encounter Additional Health Concerns Assessment Noted Time PHQ-9 Depression Total Score: 0 07/09/19 23 8:29 AM EVENT SERVICES MANAGER documented as of this encounter Care Teams Paver Relationship Specialty Start Date End Date Stefan Salomon M.D. [address] [place] [phone] PCP - General Family Medicine 07/09/22 Anticoagulation Team 07/09/22 documented as of this encounter
--- OUTSIDE RECORDS SUMMARY | 2023-07-23 08:11 | XMS_ITS | Encounter Summary ---
Author Name Unknown Organization [facility] Address [address] [place] [address] Care Team Providers Care Library Services Assistant Name Role Phone Stefan Salomon M.D. Primary Care Provider [phone] Reason for Referral * Outpatient (Routine) - Authorized Specialty Diagnoses / Procedures Referred By Piero self Referred To Contact Stefan Salomon M.D. [address] [place] [phone] [facility] Referral ID Status Reason Start Date Expiration Date V isits Requested Visits Authorized [id number] Authorized 07/09/2023 01/07/2025 1 1 Scheduling Instructions Nurse AWV Do not schedule prior to due date to ensure insurance coverage Visit: Medicare Annual Wellness due on 07/10/2023. OLEUM TERMINAL PLANT OPERATOR Encounter Details Date Type Department Care Team (Late st Contact Info) Description 07/09/2023 Orders Only [facility] PCP [facility] TW[facility]AT Stefan Salomon M.D. [address] [place] [phone] Social History Tobacco Use Types Packs/Day Years [...] How often do you attend mu-ism or presybeterian serv ices? Never 07/09/2022 Do you belong [...] Answer Date Recorded PHQ-2 Score 0 06/12/2023 [facility] - Occupational Stress [...] file Gender Identity Male 07/02/2017 9:12 AM PETROLEUM TERMINAL PLANT OPERATOR Sexual Orientation Straight 07/02/2017 9: 12 AM PETROLEUM TERMINAL PLANT OPERATOR documented as of this encounter Plan of Treatment Upcoming Encounters Date Type Department Care Team (Latest Contact Info) Description 07/25/2023 3:40 PM PETROLEUM TERMINAL PLANT OPERATOR Office Visit Department of Dermatology in [place], [place] [address] [place] [phone] Crystal Quintero M.D. [address] [place] [address] 08/02/2023 8:50 AM PETROLEUM TERMINAL PLANT OPERATOR Appointment Department of Laboratory Medicine in [address] [phone] Stefan Salomon M.D. [address] [place] [phone] 08/02/2023 9:30 AM PETROLEUM TERMINAL PLANT OPERATOR Anticoagulation Visit Department of Anticoagulation in [place], [place] [address] [place] [address] Stefan Salomon M.D. [address] [place] [phone] Scheduled Referrals Name Type Priority Associated Diagnoses Orde r Schedule Primary Care nurse visit (clinic) - [facility]; Medicare Annual Wellness Outpatient Referral Routine Expected: 08/06/2023, Expires: 01/05/2024 documented as of this encounter Visit Diagnoses Not on filedocumented in this encounter Additional Health Concerns Assessment Noted Time PHQ-9 Depression Total Score: 1 06/12/19 24 4:14 PM PETROLEUM TERMINAL PLANT OPERATOR documented as of this encounter Care Teams Library Services Assistant Relationship Specialty Start Date End Date Stefan Salomon M.D. [address] [place] [phone] PCP - General Family Medicine 07/09/22 Anticoagulation Team 07/09/22 documented as of this encounter
--- OUTSIDE RECORDS SUMMARY | 2023-07-23 08:11 | XMS_ITS | Encounter Summary ---
Author Name Unknown Organization [facility] Address [address] [place] [address] Care Team Providers Care Bezel Cutter Name Role Phone Stefan Salomon M.D. Primary Care Provider [phone] Reason for Visit * Reason Comments Med Refill Encounter Details Date Type Department Care Team (Late st Contact Info) Description 07/16/2023 Refill Department of Family Medicine, [facility], in [address] [phone] Stefan Salomon M.D. [address] [place] [phone] Med Refill Social History Tobacco Use Types [...] often do you attend oriental orthodox or taoist serv ices? Never 07/09/2022 Do [...] Answer Date Recorded PHQ-2 Score 0 06/12/2023 [facility] of Occupat ional Health - Occupational [...] file Gender Identity Male 07/02/2017 9:12 AM SPECIAL NEEDS CAREGIVER Sexual Orientation Straight 07/02/2017 9: 12 AM SPECIAL NEEDS CAREGIVER documented as of this encounter Plan of Treatment Upcoming Encounters Date Type Department Care Team (Latest Contact Info) Description 07/25/2023 3:40 PM SPECIAL NEEDS CAREGIVER Office Visit Department of Dermatology in [place], [place] [address] [place] [phone] Crystal Quintero M.D. [address] [place] [address] 08/02/2023 8:50 AM SPECIAL NEEDS CAREGIVER Appointment Department of Laboratory Medicine in [address] [phone] Stefan Salomon M.D. [address] [place] [phone] 08/02/2023 9:30 AM SPECIAL NEEDS CAREGIVER Anticoagulation Visit Department of Anticoagulation in [place], [place] [address] [place] [address] Stefan Salomon M.D. [address] [place] [phone] documented as of this encounter Visit Diagnoses Not on filedocumented in this encounter Additional Health Concerns Assessment Noted Time PHQ-9 Depression Total Score: 1 06/12/19 24 4:14 PM SPECIAL NEEDS CAREGIVER documented as of this encounter Care Teams Bezel Cutter Relationship Specialty Start Date End Date Stefan Salomon M.D. [address] [place] [phone] PCP - General Family Medicine 07/09/22 Anticoagulation Team 07/09/22 documented as of this encounter
--- OUTSIDE RECORDS SUMMARY | 2023-07-23 08:11 | XMS_ITS | Encounter Summary ---
Author Name Unknown Organization [facility] Address [address] [place] [address] Care Team Providers Care Raw Sampler Name Role Phone Stefan Salomon M.D. Primary Care Provider [phone] Reason for Visit * Reason Onset Date Comments Pre-visit Intake 07/19/2023 Encounter Details Date Type Department Care Team (Latest Contact Info) Description 07/19/2023 2:30 PM OLIVE GROWER Clinical Communication Virtual Review in [place], [place] [address] [place], [place] [phone] Pre-visit Intake Social History Tobacco Use Types [...] How often do you attend restorationist or religion serv ices? Never 07/09/2022 Do [...] Answer Date Recorded PHQ-2 Score 0 06/12/2023 [facility] of Occupat ional [facility] - Occupational Stress Questionnaire Answer Date [...] file Gender Identity Male 07/02/2017 9:12 AM OLIVE GROWER Sexual Orientation Straight 07/02/2017 9: 12 AM OLIVE GROWER documented as of this encounter Plan of Treatment Upcoming Encounters Date Type Department Care Team (Latest Contact Info) Description 07/25/2023 3:40 PM OLIVE GROWER Office Visit Department of Dermatology in [place], [place] [address] [place] [phone] Crystal Quintero M.D. [address] [place] [phone] 08/02/2023 8:50 AM OLIVE GROWER Appointment Department of Laboratory Medicine in [address] [phone] Stefan Salomon M.D. [address] [place] [phone] 08/02/2023 9:30 AM OLIVE GROWER Anticoagulation Visit Department of Anticoagulation in [place], [place] [address] [place] [address] Stefan Salomon M.D. [address] [place] [phone] documented as of this encounter Visit Diagnoses Not on filedocumented in this encounter Additional Health Concerns Assessment Noted Time PHQ-9 Depression Total Score: 1 06/12/19 24 4:14 PM OLIVE GROWER documented as of this encounter Care Teams Raw Sampler Relationship Specialty Start Date End Date Stefan Salomon M.D. [address] [place] [phone] PCP - General Family Medicine 07/09/22 Anticoagulation Team 07/09/22 documented as of this encounter
--- OUTSIDE RECORDS SUMMARY | 2023-07-23 08:11 | XMS_ITS | Encounter Summary ---
Author Name Unknown Organization [facility] Address [address] [place] [address] Care Team Providers Care Robotics Software Engineer Name Role Phone Stefan Salomon M.D. Primary Care Provider [phone] Reason for Referral * Outpatient (Routine) - Authorized Specialty Diagnoses / Procedures Referred By Piero self Referred To Contact Stefan Salomon M.D. [address] [place] [phone] [facility] Referral ID Status Reason Start Date Expiration Date V isits Requested Visits Authorized [id number] Authorized 06/12/2023 06/11/2026 1 1 SCOURER Reason for Visit * Reason Comments Nurse Visit CSA enrollment * Outpatient (Routine) - Closed Specialty Diagnoses / Procedures Referred By Piero self Referred To Contact Diagnoses Chronic Pain Syndrome Stefan Salomon M.D. [address] [place] [phone] [facility] Referral ID Status Reason Start Date Expiration Date Visits Re quested Visits Authorized [id number] Closed 06/04/2023 06/03/2026 1 1 Encounter Details Date Type Department Care Team (Late st Contact Info) Description 06/12/2023 4:30 PM WOOL SCOURER Nurse Only Department of Family Medicine, [facility], in [address] [phone] Stefan Salomon M.D. [address] [phone] Susan Baker R.N. [address] [place] [phone] Nurse Visit (CSA enrollment) Discharge Disposition: Home [...] How often do you attend religion or adventist serv ices? Never 07/09/2022 Do [...] Answer Date Recorded PHQ-2 Score 0 06/12/2023 [facility] of Occupat ional Health - [...] file Gender Identity Male 07/02/2017 9:12 AM WOOL SCOURER Sexual Orientation Straight 07/02/2017 9: 12 AM WOOL SCOURER documented as of this encounter Progress Notes * Susan Baker RKimberly. - 06/12/2023 4:30 PM CST Wesley Bautista was enrolled in the Controlled Substance Prescribing Plan at the request of Provider: Dr Salomon for ongoing chronic opioid therapy related to chronic pain. An reliability specialist was not used for this discussion. PEG Total Score: 0 (06/12/2023 4:21 PM) ORT Total Score (max 26): 0 (07/09/2022 8:33 AM) PHQ-9 Total Score (max 27): 1 (06/12/2023 4:14 PM) DESMOND-7 Total Score (max 21): 0 (06/12/2023 4:22 PM) Urine screening was not requested by the prescribing provider. Education: The following education was reviewed and provided: Controlled Substance Agreement-Chronic Opioid Therapy (FM6708-77)., Important Information About Opioid Medications (GI3017)., Chronic Pain: Take Steps to Regain Your Life (PA5828)., Controlled Substance Agreement: Safe Use of Controlled Substances (DH7260-944). I encouraged the patient to request renewals one week in advance through their pharmacy or by Patient Online Services to allow ample time for renewals. SCOURER documented in this encounter Plan of Treatment Upcoming Encounters Date Type Department Care Team (Latest Contact Info) Description 07/25/2023 3:40 PM WOOL SCOURER Office Visit Department of Dermatology in [place], [place] [address] [place] [address] Crystal Quintero M.D. [address] [place] [phone] 08/02/2023 8:50 AM WOOL SCOURER Appointment Department of Laboratory Medicine in [address] [phone] Stefan Salomon M.D. [address] [place] [phone] 08/02/2023 9:30 AM WOOL SCOURER Anticoagulation Visit Department of Anticoagulation in [place], [place] [address] [place] [address] Stefan Salomon M.D. [address] [place] [phone] Scheduled Referrals Name Type Priority Associated Diagnoses Order Schedule Primary Care nurse visit (clinic) - [facility] Region; CSA; Enrollment Outpatient Referral Routine Expected: 06/12/2024 (Approximate), Expires: 09/10/2024 documented as of this encounter Visit Diagnoses Diagnosis Chronic Pain Syndrome documented in this encounter Additional Health Concerns Assessment Noted Time PHQ-9 Depression Total Score: 1 06/12/19 24 4:14 PM WOOL SCOURER documented as of this encounter Care Teams Robotics Software Engineer Relationship Specialty Start Date End Date Stefan Salomon M.D. [address] [place] [phone] PCP - General Family Medicine 07/09/22 Anticoagulation Team 07/09/22 documented as of this encounter
--- OUTSIDE RECORDS SUMMARY | 2023-07-23 08:11 | XMS_ITS ---
Author Name Unknown Organization [facility] Address [address] [place] [address] Care Team Providers Care Sand Slinger Operator Name Role Phone Unavailable Unavailable Unavailable Surgery Details Not on file Complications Check Surgery Details section. Procedure Estimated Blood Loss Check Surgery Details section. Procedure Findings Check Surgery Details section. Procedure Specimens Taken Check Surgery Details section.
--- OUTSIDE RECORDS SUMMARY | 2023-07-23 08:11 | XMS_ITS | Encounter Summary ---
Author Name Unknown Organization [facility] Address [address] [place] [address] Care Team Providers Care Showcase Trimmer Name Role Phone Stefan Salomon M.D. Primary Care Provider [phone] Encounter Details Date Type Department Care Team (Latest Contact Info) Description 06/21/2023 7:45 AM MOBILE HOME LABORER - 06/21/2023 11:59 PM MOBILE HOME LABORER Hospital Encounter Department of Laboratory Medicine in [address] [phone] Stefan Salomon M.D. [address] [place] [phone] Anticoagulant Therapy [Z79.01]; Mutation Factor V Leiden [...] How often do you attend gnosticism or lutheran serv ices? Never 07/09/2022 Do [...] Answer Date Recorded PHQ-2 Score 0 06/12/2023 [facility] of Occupat ional Health - [...] file Gender Identity Male 07/02/2017 9:12 AM MOBILE HOME LABORER Sexual Orientation Straight 07/02/2017 9: 12 AM MOBILE HOME LABORER documented as of this encounter Medications at [...] daily as needed 30 g 2 06/13/2021 polyethylene glycol-electrolytes (GoLYTELY) 236-22.74-6.74 -5.86 gram solution [...] your Anticoagulation Clinic. 130 tablet 3 10/18/2022 losartan (COZAAR) 50 mg tablet Take 1 tablet (50 mg total) by mouth daily. 90 tablet 3 08/01/2022 07/17/2023 traMADoL (ULTRAM) 50 mg tabletIndications:C hronic Pain/Nonacute Pain Take 1-2 tablets (50-100 mg total) by mouth every 6 (six) hours as needed for pain Indications: Chronic Pain/Nonacute Pain. 240 tablet 0 06/05/2023 07/03/2023 documented as of this encounter Plan of Treatment Upcoming Encounters Date Type Department Care Team (Latest Contact Info) Description 07/25/2023 3:40 PM MOBILE HOME LABORER Office Visit Department of Dermatology in [place], [place] [address] [place] [address] Crystal Quintero M.D. [address] [place] [phone] 08/02/2023 8:50 AM MOBILE HOME LABORER Appointment Department of Laboratory Medicine in [address] [phone] Stefan Salomon M.D. [address] [place] [phone] 08/02/2023 9:30 AM MOBILE HOME LABORER Anticoagulation Visit Department of Anticoagulation in [place], [place] [address] [place] [address] Stefan Salomon M.D. [address] [place] [phone] documented as of this encounter Procedures Procedure Name Priority Date/Time Associated Diagnosis Comments INR REFLEX, POCT, B Routine 06/21/2023 7:49 AM MOBILE HOME LABORER Anticoagulant Therapy [Z79.01] Mutation Factor V Leiden Heterozygous (HCC) Monitoring For Therapeutic Drug Therapy [Z51.81] Thrombosis Deep Vein Personal History documented in this encounter Results * INR Reflex, POCT, Blood (06/21/2023 7:49 AM MOBILE HOME LABORER) INR Reflex, POCT, B 2.5 06/21/2023 7:49 AM MOBILE HOME LABORER CNFL Comment: ----ADDITIONAL INFORMATION---- Standard intensity warfarin therapeutic range: 2.0 to 3.0 ?? High intensity warfarin therapeutic range: 2.5 to 3.5 Blood (Blood, Capillary) 06/21/2023 7:49 AM MOBILE HOME LABORER 06/21/2023 7:49 AM MOBILE HOME LABORER Stefan Salomon M.D. LAB POCT ORDERABLES - DEVICE [facility] [address] [place] [address], [facility] in [address] [address] documented in this encounter Visit Diagnoses Diagnosis Anticoagulant Therapy [Z79.01] Mutation Factor V Leiden Heterozygous (HCC) Monitoring For Therapeutic Drug Therapy [Z51.81] Thrombosis Deep Vein Personal History documented in this encounter Additional Health Concerns Assessment Noted Time PHQ-9 Depression Total Score: 1 06/12/19 24 4:14 PM MOBILE HOME LABORER documented as of this encounter Care Teams Showcase Trimmer Relationship Specialty Start Date End Date Stefan Salomon M.D. [address] [place] [phone] PCP - General Family Medicine 07/09/22 Anticoagulation Team 07/09/22 documented as of this encounter
--- OUTSIDE RECORDS SUMMARY | 2023-07-23 08:11 | XMS_ITS | Encounter Summary ---
Author Name Unknown Organization [facility] Address [address] [place] [address] Care Team Providers Care Photography Instructor Name Role Phone Stefan Salomon M.D. Primary Care Provider [phone] Reason for Visit * Reason Comments sleep [...] Expiration Date Visits Re quested Visits Authorized [id number] Closed 05/16/2023 05/15/2024 1 1 Encounter Details Date Type Department Care Team (Late st Contact Info) Description 06/12/2023 4:15 PM DIRECTOR DRUG Office Visit Department of Family Medicine, [facility], in [address] [phone] Stefan Salomon M.D. [address] [place] [phone] Chronic Pain Syndrome (Primary Dx); Arthritis Shoulder; [...] How often do you attend jain or jew serv ices? Never 07/09/2022 Do [...] Answer Date Recorded PHQ-2 Score 0 06/12/2023 [facility] of Occupat ional Health - Occupational Stress [...] Gender Identity Male 07/02/2017 9:12 AM DIRECTOR DRUG Sexual Orientation Straight 07/02/2017 9: 12 AM DIRECTOR DRUG documented as of this encounter Last Filed Vital Signs Vital Sign [place] Time Taken Comments Blood Pressure 148/82 06/12/2023 4:23 PM DIRECTOR DRUG Pulse 63 06/12/2023 4:23 PM DIRECTOR DRUG Temperature 36.6 ??C (97.9 ??F) 06/12/2023 4:23 PM CS T Respiratory Rate 18 06/12/2023 4:23 PM DIRECTOR DRUG Oxygen Saturation 94% 06/12/2023 4:23 PM DIRECTOR DRUG Inhaled Oxygen Concentration - - Weight 95.6 kg (210 lb 12.2 oz) 06/12/2023 4:23 PM DIRECTOR DRUG Height - - Body Mass Index 30.69 08/01/2022 9:59 AM DIRECTOR DRUG documented in this encounter Progress Notes * [...] Stasis ulcers well-healing and does visit the [facility]. No other concerns noted. The [...] of the content. Stefan Salomon M.D. CTOR DRUG documented in this encounter Plan of Treatment Upcoming Encounters Date Type Department Care Team (Latest Contact Info) Description 07/25/2023 3:40 PM DIRECTOR DRUG Office Visit Department of Dermatology in [place], [place] [address] [place] [phone] Crystal Quintero M.D. [address] [place] [phone] 08/02/2023 8:50 AM DIRECTOR DRUG Appointment Department of Laboratory Medicine in [address] [phone] Stefan Salomon M.D. [address] [place] [phone] 08/02/2023 9:30 AM DIRECTOR DRUG Anticoagulation Visit Department of Anticoagulation in [place], [place] [address] [place] [phone] Stefan Salomon M.D. [address] [place] [phone] documented as of this encounter Procedures Procedure Name Priority Date/Time Associated Diagnosis Comments CBC WITH DIFFERENTIAL, B Routine 06/12/2023 5:30 PM DIRECTOR DRUG Restless Leg Syndrome FERRITIN, S Routine 06/12/2023 5:30 PM DIRECTOR DRUG Restless Leg Syndrome documented in this encounter Results * Ferritin (06/12/2023 5:30 PM DIRECTOR DRUG) Ferritin, S 110 31 - 409 mcg/L 06/13/2023 1:19 PM DIRECTOR DRUG RDWG Comment: Biotin has been identified by the master steam yacht as a potential interfering substance. Higher concentrations of biotin may be found in multivitamins, hair/nail supplements, and workout supplements. If the result does not match clinical observations, repeat testing after patient refrains from the use of supplements for at least 12 hours. Blood (Blood, Venous) 06/12/2023 5:30 PM DIRECTOR DRUG 06/13/2023 12:18 PM DIRECTOR DRUG Stefan Salomon M.D. LAB BLOOD ADD-[facility] [address] [place] [address], [facility] [[email or web address]] RDWG [facility] in [place] [address] [place] [address] * CBC with Differential, Blood (06/12/2023 5:30 PM DIRECTOR DRUG) Hemoglobin 13.6 13.2 - 16.6 g/dL 06/12/2023 5:44 PM DIRECTOR DRUG CNFL Hematocrit 41.6 38.3 - 48.6 % 06/12/2023 5:44 PM DIRECTOR DRUG CNFL Erythrocytes 4.44 4.35 - 5.65 x10(12)/L 06/12/2023 5:44 PM DIRECTOR DRUG CNFL MCV 93.7 78.2 - 97.9 fL 06/12/2023 5:44 PM DIRECTOR DRUG CNFL RBC Distrib Width 13.0 11.8 - 14.5 % 06/12/2023 5:44 PM DIRECTOR DRUG CNFL Platelet Count 208 135 - 317 x10(9)/L 06/12/2023 5:44 PM DIRECTOR DRUG CNFL Leukocytes 5.7 3.4 - 9.6 x10(9)/L 06/12/2023 5:44 PM DIRECTOR DRUG CNFL Neutrophils 3.52 1.56 - 6.45 x10(9)/L 06/12/2023 5:44 PM DIRECTOR DRUG CNFL Lymphocytes 1.23 0.95 - 3.07 x10(9)/L 06/12/2023 5:44 PM DIRECTOR DRUG CNFL Monocytes 0.53 0.26 - 0.81 x10(9)/L 06/12/2023 5:44 PM DIRECTOR DRUG CNFL Eosinophils 0.34 0.03 - 0.48 x10(9)/L 06/12/2023 5:44 PM DIRECTOR DRUG CNFL Basophils 0.05 0.01 - 0.08 x10(9)/L 06/12/2023 5:44 PM DIRECTOR DRUG CNFL Blood (Blood, Venous) 06/12/2023 5:30 PM DIRECTOR DRUG 06/12/2023 5:31 PM DIRECTOR DRUG Stefan Salomon M.D. LAB BLOOD ADD-[facility] [address] [place] [address], [facility] [[email or web address]] CNFL [facility] in [address] [address] documented in this encounter Visit Diagnoses Diagnosis [...] Total Score: 1 06/12/19 24 4:14 PM DIRECTOR DRUG documented as of this encounter Care Teams Photography Instructor Relationship Specialty Start Date End Date Stefan Salomon M.D. [address] [place] [phone] PCP - General Family Medicine 07/09/22 Anticoagulation Team 07/09/22 documented as of this encounter
--- OUTSIDE RECORDS SUMMARY | 2023-07-23 08:11 | XMS_ITS | Encounter Summary ---
Author Name Unknown Organization [facility] Address [address] [place] [address] Care Team Providers Care Software Engineer Sales Name Role Phone Stefan Salomon M.D. Primary Care Provider [phone] Reason for Visit * Reason Comments Med Refill Encounter Details Date Type Department Care Team (Late st Contact Info) Description 07/03/2023 Refill Department of Family Medicine, [facility], in [address] [phone] Stefan Salomon M.D. [address] [place] [phone] Med Refill Social History Tobacco Use Types [...] How often do you attend quaker or christianity serv ices? Never 07/09/2022 Do [...] Answer Date Recorded PHQ-2 Score 0 06/12/2023 [facility] of Occupat ional Health - [...] file Gender Identity Male 07/02/2017 9:12 AM IT NETWORK ARCHITECT Sexual Orientation Straight 07/02/2017 9: 12 AM IT NETWORK ARCHITECT documented as of this encounter Miscellaneous Notes * Telephone Encounter - Rebeca Garg L.P.NCoty - 07/04/2023 10:11 AM IT NETWORK ARCHITECT Controlled substance renewal for tramadol 50 mg: [...] renewal may be on or after 08/04/2023 NETWORK ARCHITECT documented in this encounter Plan of Treatment Upcoming Encounters Date Type Department Care Team (Latest Contact Info) Description 07/25/2023 3:40 PM IT NETWORK ARCHITECT Office Visit Department of Dermatology in [place], [place] [address] [place] [address] Crystal Quintero M.D. [address] [place] [phone] 08/02/2023 8:50 AM IT NETWORK ARCHITECT Appointment Department of Laboratory Medicine in [address] [phone] Stefan Salomon M.D. [address] [place] [phone] 08/02/2023 9:30 AM IT NETWORK ARCHITECT Anticoagulation Visit Department of Anticoagulation in [place], [place] [address] [place] [address] Stefan Salomon M.D. [address] [place] [phone] documented as of this encounter Visit Diagnoses Diagnosis Chronic Pain Syndrome Degeneration Disc Cervical Polyarthralgia documented in this encounter Additional Health Concerns Assessment Noted Time PHQ-9 Depression Total Score: 1 06/12/19 24 4:14 PM IT NETWORK ARCHITECT documented as of this encounter Care Teams Software Engineer Sales Relationship Specialty Start Date End Date Stefan Salomon M.D. [address] [place] [phone] PCP - General Family Medicine 07/09/22 Anticoagulation Team 2 documented as of this encounter
--- OUTSIDE RECORDS SUMMARY | 2023-07-23 08:11 | XMS_ITS | Encounter Summary ---
Author Name Unknown Organization [facility] Address [address] [place] [address] Care Team Providers Care Alumni Secretary Name Role Phone Stefan Salomon M.D. Primary Care Provider [phone] Encounter Details Date Type Department Care Team (Latest Contact Info) Description 06/04/2023 1:46 PM AQUACULTURE FARMER - 06/04/2023 11:59 PM AQUACULTURE FARMER Hospital Encounter Department of Laboratory Medicine in [address] [phone] Stefan Salomon M.D. [address] [place] [phone] Anticoagulant Therapy [Z79.01]; Mutation Factor V Leiden [...] How often do you attend episcopalian or nondenominational serv ices? Never 07/09/2022 Do [...] file Gender Identity Male 07/02/2017 9:12 AM AQUACULTURE FARMER Sexual Orientation Straight 07/02/2017 9: 12 AM AQUACULTURE FARMER documented as of this encounter Medications at [...] (Latest Contact Info) Description 07/25/2023 3:40 PM AQUACULTURE FARMER Office Visit Department of Dermatology in [place], [place] [address] [place] [phone] Crystal Quintero M.D. [address] [place] [phone] 08/02/2023 8:50 AM AQUACULTURE FARMER Appointment Department of Laboratory Medicine in [address] [phone] Stefan Salomon M.D. [address] [place] [phone] 08/02/2023 9:30 AM AQUACULTURE FARMER Anticoagulation Visit Department of Anticoagulation in [place], [place] [address] [place] [address] Stefan Salomon M.D. [address] [place] [phone] documented as of this encounter Procedures Procedure Name Priority Date/Time Associated Diagnosis Comments INR REFLEX, POCT, B Routine 06/04/2023 1:50 PM AQUACULTURE FARMER Anticoagulant Therapy [Z79.01] Mutation Factor V Leiden Heterozygous (HCC) Monitoring For Therapeutic Drug Therapy [Z51.81] Thrombosis Deep Vein Personal History documented in this encounter Results * INR Reflex, POCT, Blood (06/04/2023 1:50 PM AQUACULTURE FARMER) INR Reflex, POCT, B 2.0 06/04/2023 1:50 PM AQUACULTURE FARMER CNFL Comment: ----ADDITIONAL INFORMATION---- Standard intensity warfarin therapeutic range: 2.0 to 3.0 ?? High intensity warfarin therapeutic range: 2.5 to 3.5 Blood (Blood, Capillary) 06/04/2023 1:50 PM AQUACULTURE FARMER 06/04/2023 1:50 PM AQUACULTURE FARMER Stefan Salomon M.D. LAB POCT ORDERABLES - DEVICE [facility] [address] [place] [address], [facility] CNFL [facility] in [address] [address] documented in this encounter Visit Diagnoses Diagnosis Anticoagulant Therapy [Z79.01] Mutation Factor V Leiden Heterozygous (HCC) Monitoring For Therapeutic Drug Therapy [Z51.81] Thrombosis Deep Vein Personal History documented in this encounter Additional Health Concerns Assessment Noted Time PHQ-9 Depression Total Score: 0 07/09/19 23 8:29 AM AQUACULTURE FARMER documented as of this encounter Care Teams Alumni Secretary Relationship Specialty Start Date End Date Stefan Salomon M.D. [address] [place] [phone] PCP - General Family Medicine 07/09/22 Anticoagulation Team 07/09/22 documented as of this encounter
--- OUTSIDE RECORDS SUMMARY | 2023-07-23 08:11 | XMS_ITS | Encounter Summary ---
Author Name Unknown Organization [facility] Address [address] [place] [address] Care Team Providers Care Multi Purpose Machine Operator Name Role Phone Stefan Salomon M.D. Primary Care Provider [phone] Reason for Visit * Reason Comments Med Refill Encounter Details Date Type Department Care Team (Late st Contact Info) Description 06/01/2023 Refill Department of Family Medicine, [facility], in [address] [phone] Stefan Salomon M.D. [address] [place] [phone] Med Refill Social History Tobacco Use Types [...] How often do you attend mosque or adventist serv ices? Never 07/09/2022 Do [...] Answer Date Recorded PHQ-2 Score 0 07/09/2022 [facility] of Occupat ional Health - Occupational [...] file Gender Identity Male 07/02/2017 9:12 AM SCREW MACHINE OPERATOR SWISS TYPE Sexual Orientation Straight 07/02/2017 9: 12 AM SCREW MACHINE OPERATOR SWISS TYPE documented as of this encounter Miscellaneous Notes * Telephone Encounter - Hoa Capone, L.P.N. - 06/04/2023 2:46 PM SCREW MACHINE OPERATOR SWISS TYPE Controlled substance renewal for Tramadol 50 mg: [...] renewal may be on or after 07/04/2023 W MACHINE OPERATOR SWISS TYPE documented in this encounter Plan of Treatment Upcoming Encounters Date Type Department Care Team (Latest Contact Info) Description 07/25/2023 3:40 PM SCREW MACHINE OPERATOR SWISS TYPE Office Visit Department of Dermatology in [place], [place] [address] [place] [phone] rCystal Quintero M.D. [address] [place] [phone] 08/02/2023 8:50 AM SCREW MACHINE OPERATOR SWISS TYPE Appointment Department of Laboratory Medicine in [address] [phone] Stefan Salomon M.D. [address] [place] [phone] 08/02/2023 9:30 AM SCREW MACHINE OPERATOR SWISS TYPE Anticoagulation Visit Department of Anticoagulation in [place], [place] [address] [place] [phone] Stefan Salomon M.D. [address] [place] [phone] documented as of this encounter Visit Diagnoses Diagnosis Chronic Pain Syndrome Degeneration Disc Cervical Polyarthralgia documented in this encounter Additional Health Concerns Assessment Noted Time PHQ-9 Depression Total Score: 0 07/09/19 23 8:29 AM SCREW MACHINE OPERATOR SWISS TYPE documented as of this encounter Care Teams Multi Purpose Machine Operator Relationship Specialty Start Date End Date Stefan Salomon M.D. [address] [place] [phone] PCP - General Family Medicine 07/09/22 Anticoagulation Team 07/09/22 documented as of this encounter
--- OUTSIDE RECORDS SUMMARY | 2023-07-23 08:11 | XMS_ITS | Encounter Summary ---
Author Name Unknown Organization [facility] Address [address] [place] [address] Care Team Providers Care Poultry Hatchery Man Name Role Phone Stefan Salomon M.D. Primary Care Provider [phone] Reason for Visit * Outpatient (Routine) - Authorized Specialty Diagnoses / Procedures Referred By Contdayana t Referred To Contact Anticoagulation Diagnoses Anticoagulant Therapy Mutation Factor V Leiden Heterozygous (HCC) Monitoring For Therapeutic Drug Therapy Thrombosis Deep Vein Personal History Stefan Salomon M.D. [address] [phone] [facility] Referral ID Status Reason Start Date Expiration Date V isits Requested Visits Authorized [id number] Authorized 02/01/2023 01/31/2026 300 300 Encounter Details Date Type Department Care Team (Latest Contact Info) Description 06/21/2023 9:30 AM EXPANDED DUTY DENTAL ASSISTANT Anticoagulation Visit Department of Anticoagulation in [place], [place] [address] [place] [address] Stefan Salomon M.D. [address] [place] [phone] Anticoagulant Therapy [Z79.01]; Mutation Factor V [...] week 07/09/2022 How often do you attend uatsdin or jehovah's witness serv ices? Never 07/09/2022 Do you belong to any clubs o r organizations such as uatsdin groups, unions, fraternal or athletic groups, or [...] Answer Date Recorded PHQ-2 Score 0 06/12/2023 [facility] of Occupat ional Health - Occupational [...] file Gender Identity Male 07/02/2017 9:12 AM EXPANDED DUTY DENTAL ASSISTANT Sexual Orientation Straight 07/02/2017 9: 12 AM EXPANDED DUTY DENTAL ASSISTANT documented as of this encounter Patient Instructions * Patient Instructions* Brittany Llamas R.N. - 06/21/2023 9:30 AM EXPANDED DUTY DENTAL ASSISTANT Your next INR will be 08/02/23. You will need to call the Anticoagulation Program for warfarin dosingat the scheduled time for your nurse visit, as indicated on your Patient Appointment Guide (PAG). To reschedule your appointment or for questions about your warfarin, please call Primary Care Anticoagulation Program at [phone] from 7:30 am to 4:30 pm. Saturday-Saturday [...] if you start any herbal or other slih-isl-sverjqg product (check with your doctor, a nurse, or pharmacist). If you change your diet significantly. If you decide to stop or start using tobacco or alcohol. If you notice unusual bruising or bleeding. If you notice dark, tarry, or bright red stools or blood in your urine. If you have a painful and swollen calf. NDED DUTY DENTAL ASSISTANT documented in this encounter Progress Notes * [...] time. Total time spent with patient: N/A NDED DUTY DENTAL ASSISTANT documented in this encounter Plan of Treatment Upcoming Encounters Date Type Department Care Team (Latest Contact Info) Description 07/25/2023 3:40 PM EXPANDED DUTY DENTAL ASSISTANT Office Visit Department of Dermatology in [place], [place] [address] [place] [phone] Crystal Quintero M.D. [address] [place] [address] 08/02/2023 8:50 AM EXPANDED DUTY DENTAL ASSISTANT Appointment Department of Laboratory Medicine in [address] [phone] Stefan Salomon M.D. [address] [place] [phone] 08/02/2023 9:30 AM EXPANDED DUTY DENTAL ASSISTANT Anticoagulation Visit Department of Anticoagulation in [place], [place] [address] [place] [address] Stefan Salomon M.D. [address] [place] [phone] Scheduled Orders Name Type Priority Associated Diagnoses [...] Total Score: 1 06/12/19 24 4:14 PM EXPANDED DUTY DENTAL ASSISTANT documented as of this encounter Care Teams Poultry Hatchery Man Relationship Specialty Start Date End Date Stefan Salomon M.D. [address] [place] [phone] PCP - General Family Medicine 07/09/22 Anticoagulation Team 07/09/22 documented as of this encounter
--- OUTSIDE RECORDS SUMMARY | 2023-07-23 08:11 | XMS_ITS | Encounter Summary ---
Author Name Unknown Organization [facility] Address [address] [place] [address] Care Team Providers Care Wedding Makeup Artist Name Role Phone Stefan Salomon M.D. Primary Care Provider [phone] Encounter Details Date Type Department Care Team (Late st Contact Info) Description 05/31/2023 Clinical Communication Department of Family Medicine, [facility], in [address] [phone] Stefan Salomon M.D. [address] [place] [phone] Social History Tobacco Use Types Packs/Day Years [...] often do you attend jehovah's witness or mosque serv ices? Never 07/09/2022 Do you belong [...] Answer Date Recorded PHQ-2 Score 0 06/12/2023 [facility] of Occupat ional Health - Occupational Stress [...] file Gender Identity Male 07/02/2017 9:12 AM CLERICAL ASSIGNER Sexual Orientation Straight 07/02/2017 9: 12 AM CLERICAL ASSIGNER documented as of this encounter Plan of Treatment Upcoming Encounters Date Type Department Care Team (Latest Contact Info) Description 07/25/2023 3:40 PM CLERICAL ASSIGNER Office Visit Department of Dermatology in [place], [place] [address] [place] [phone] Crystal Quintero M.D. [address] [place] [phone] 08/02/2023 8:50 AM CLERICAL ASSIGNER Appointment Department of Laboratory Medicine in [address] [phone] Stefan Salomon M.D. [address] [place] [address] [place] [phone] 08/02/2023 9:30 AM CLERICAL ASSIGNER Anticoagulation Visit Department of Anticoagulation in [place], [place] [address] [place] [address] Stefan Salomon M.D. [address] [place] [address] [place] [phone] documented as of this encounter Visit Diagnoses Not on filedocumented in this encounter Additional Health Concerns Assessment Noted Time PHQ-9 Depression Total Score: 0 07/09/19 23 8:29 AM CLERICAL ASSIGNER documented as of this encounter Care Teams Wedding Makeup Artist Relationship Specialty Start Date End Date Stefan Salomon M.D. [address] [place], [place] [address] [phone] PCP - General Family Medicine 07/09/22 Anticoagulation Team 07/09/22 documented as of this encounter
--- OUTSIDE RECORDS SUMMARY | 2023-07-23 08:12 | XMS_ITS | Encounter Summary ---
Author Name Unknown Organization [facility] Address [address] [place] [address] Care Team Providers Care News Producer Name Role Phone Stefan Salomon M.D. Primary Care Provider [phone] Reason for Visit * Outpatient (Routine) - Authorized Specialty Diagnoses / Procedures Referred By Contdayana t Referred To Contact Anticoagulation Diagnoses Anticoagulant Therapy Mutation Factor V Leiden Heterozygous (HCC) Monitoring For Therapeutic Drug Therapy Thrombosis Deep Vein Personal History Stefan Salomon M.D. [address] [phone] [facility] Referral ID Status Reason Start Date Expiration Date V isits Requested Visits Authorized [id number] Authorized 02/01/2023 01/31/2026 300 300 Encounter Details Date Type Department Care Team (Latest Contact Info) Description 04/19/2023 9:00 AM TRUCK LOADER OVERHEAD CRANE Anticoagulation Visit Department of Anticoagulation in [place], [place] [address] [place] [address] Stefan Salomon M.D. [address] [place] [phone] Anticoagulant Therapy [Z79.01]; Mutation Factor V [...] How often do you attend nondenominational or synagogue serv ices? Never 07/09/2022 Do you belong [...] Answer Date Recorded PHQ-2 Score 0 07/09/2022 [facility] of Occupat ional Health - Occupational Stress [...] file Gender Identity Male 07/02/2017 9:12 AM TRUCK LOADER OVERHEAD CRANE Sexual Orientation Straight 07/02/2017 9: 12 AM TRUCK LOADER OVERHEAD CRANE documented as of this encounter Plan of Treatment Upcoming Encounters Date Type Department Care Team (Latest Contact Info) Description 07/25/2023 3:40 PM TRUCK LOADER OVERHEAD CRANE Office Visit Department of Dermatology in [place], [place] [address] [place] [address] Crystal Quintero M.D. [address] [place] [address] 08/02/2023 8:50 AM TRUCK LOADER OVERHEAD CRANE Appointment Department of Laboratory Medicine in [address] [phone] Stefan Salomon M.D. [address] [place] [phone] 08/02/2023 9:30 AM TRUCK LOADER OVERHEAD CRANE Anticoagulation Visit Department of Anticoagulation in [place], [place] [address] [place] [phone] Stefan Salomon M.D. [address] [place] [phone] documented as of this encounter Visit Diagnoses Diagnosis Anticoagulant Therapy [Z79.01] Mutation Factor V Leiden Heterozygous (HCC) Monitoring For Therapeutic Drug Therapy [Z51.81] Thrombosis Deep Vein Personal History documented in this encounter Additional Health Concerns Assessment Noted Time PHQ-9 Depression Total Score: 0 07/09/19 8:29 AM TRUCK LOADER OVERHEAD CRANE documented as of this encounter Care Teams News Producer Relationship Specialty Start Date End Date Stefan Salomon M.D. [address] [place] [phone] PCP - General Family Medicine 07/09/22 Anticoagulation Team 07/09/22 documented as of this encounter
--- OUTSIDE RECORDS SUMMARY | 2023-07-23 08:12 | XMS_ITS | Encounter Summary ---
Author Name Unknown Organization [facility] Address [address] [place] [address] Care Team Providers Care Clinical Neuropsychologist Name Role Phone Stefan Salomon M.D. Primary Care Provider [phone] Encounter Details Date Type Department Care Team (Latest Contact Info) Description 05/17/2023 7:20 AM INSPECTOR EXPERIMENTAL ASSEMBLY - 05/17/2023 11:59 PM INSPECTOR EXPERIMENTAL ASSEMBLY Hospital Encounter Department of Laboratory Medicine in [address] [phone] Stefan Salomon M.D. [address] [place] [phone] Anticoagulant Therapy [Z79.01]; Mutation Factor V Leiden [...] How often do you attend rastafari or catholic serv ices? Never 07/09/2022 Do [...] Answer Date Recorded PHQ-2 Score 0 07/09/2022 [facility] of Occupat ional Health - Occupational [...] Gender Identity Male 07/02/2017 9:12 AM INSPECTOR EXPERIMENTAL ASSEMBLY Sexual Orientation Straight 07/02/2017 9: 12 AM INSPECTOR EXPERIMENTAL ASSEMBLY documented as of this encounter Medications at [...] (Latest Contact Info) Description 07/25/2023 3:40 PM INSPECTOR EXPERIMENTAL ASSEMBLY Office Visit Department of Dermatology in [place], [place] [address] [place] [phone] Crystal Quintero M.D. [address] [place] [phone] 08/02/2023 8:50 AM INSPECTOR EXPERIMENTAL ASSEMBLY Appointment Department of Laboratory Medicine in [address] [phone] Stefan Salomon M.D. [address] [place] [phone] 08/02/2023 9:30 AM INSPECTOR EXPERIMENTAL ASSEMBLY Anticoagulation Visit Department of Anticoagulation in [place], [place] [address] [place] [address] Stefan Salomon M.D. [address] [place] [phone] documented as of this encounter Procedures Procedure Name Priority Date/Time Associated Diagnosis Comments INR REFLEX, POCT, B Routine 05/17/2023 7:29 AM INSPECTOR EXPERIMENTAL ASSEMBLY Anticoagulant Therapy [Z79.01] Mutation Factor V Leiden Heterozygous (HCC) Monitoring For Therapeutic Drug Therapy [Z51.81] Thrombosis Deep Vein Personal History documented in this encounter Results * INR Reflex, POCT, Blood (05/17/2023 7:29 AM INSPECTOR EXPERIMENTAL ASSEMBLY) INR Reflex, POCT, B 2.1 05/17/2023 7:29 AM INSPECTOR EXPERIMENTAL ASSEMBLY CNFL Comment: ----ADDITIONAL INFORMATION---- Standard intensity warfarin therapeutic range: 2.0 to 3.0 ?? High intensity warfarin therapeutic range: 2.5 to 3.5 Blood (Blood, Capillary) 05/17/2023 7:29 AM INSPECTOR EXPERIMENTAL ASSEMBLY 05/17/2023 7:29 AM INSPECTOR EXPERIMENTAL ASSEMBLY Stefan Salomon M.D. LAB POCT ORDERABLES - DEVICE [facility] [address] [place] [address], [facility] CNFL [facility] in [address] [address] documented in this encounter Visit Diagnoses Diagnosis Anticoagulant Therapy [Z79.01] Mutation Factor V Leiden Heterozygous (HCC) Monitoring For Therapeutic Drug Therapy [Z51.81] Thrombosis Deep Vein Personal History documented in this encounter Additional Health Concerns Assessment Noted Time PHQ-9 Depression Total Score: 0 07/09/19 23 8:29 AM INSPECTOR EXPERIMENTAL ASSEMBLY documented as of this encounter Care Teams Clinical Neuropsychologist Relationship Specialty Start Date End Date Stefan Salomon M.D. [address] [place] [phone] PCP - General Family Medicine 07/09/22 Anticoagulation Team 07/09/22 documented as of this encounter
--- OUTSIDE RECORDS SUMMARY | 2023-07-23 08:12 | XMS_ITS | Encounter Summary ---
Author Name Unknown Organization [facility] Address [address] [place] [address] Care Team Providers Care Drink Mixer Name Role Phone Stefan Salomon M.D. Primary Care Provider [phone] Encounter Details Date Type Department Care Team (Latest Contact Info) Description 04/19/2023 7:33 AM PLANT OPERATIONS VICE PRESIDENT - 04/19/2023 9:01 AM [facility] Hospital Encounter Department of Laboratory Medicine and Pathology, [facility], in [place], [place] [address] [place] [address] Stefan Salomon M.D. [address] [place] [phone] Anticoagulant Therapy [Z79.01]; Mutation Factor V Leiden [...] week 07/09/2022 How often do you attend presybeterian or latter-day serv ices? Never 07/09/2022 Do you belong to any clubs o r organizations such as presybeterian groups, unions, fraternal or athletic groups, or [...] file Gender Identity Male 07/02/2017 9:12 AM PLANT OPERATIONS VICE PRESIDENT Sexual Orientation Straight 07/02/2017 9: 12 AM PLANT OPERATIONS VICE PRESIDENT documented as of this encounter Medications at [...] (Latest Contact Info) Description 07/25/2023 3:40 PM PLANT OPERATIONS VICE PRESIDENT Office Visit Department of Dermatology in [place], [place] [address] [place] [phone] Crystal Quintero M.D. [address] [place] [address] 08/02/2023 8:50 AM PLANT OPERATIONS VICE PRESIDENT Appointment Department of Laboratory Medicine in [address] [phone] Stefan Salomon M.D. [address] [place] [phone] 08/02/2023 9:30 AM PLANT OPERATIONS VICE PRESIDENT Anticoagulation Visit Department of Anticoagulation in [place], [place] [address] [place] [address] Stefan Salomon M.D. [address] [place] [phone] documented as of this encounter Visit Diagnoses Diagnosis Anticoagulant Therapy [Z79.01] Mutation Factor V Leiden Heterozygous (HCC) Monitoring For Therapeutic Drug Therapy [Z51.81] Thrombosis Deep Vein Personal History documented in this encounter Additional Health Concerns Assessment Noted Time PHQ-9 Depression Total Score: 0 07/09/19 23 8:29 AM PLANT OPERATIONS VICE PRESIDENT documented as of this encounter Care Teams Drink Mixer Relationship Specialty Start Date End Date Stefan Salomon M.D. [address] [place] [phone] PCP - General Family Medicine 07/09/22 Anticoagulation Team 07/09/22 documented as of this encounter
--- OUTSIDE RECORDS SUMMARY | 2023-07-23 08:12 | XMS_ITS | Encounter Summary ---
Author Name Unknown Organization [facility] Address [address] [place] [address] Care Team Providers Care Procurement Professional Name Role Phone Stefan Salomon M.D. Primary Care Provider [phone] Reason for Visit * Outpatient (Routine) - Authorized Specialty Diagnoses / Procedures Referred By Piero t Referred To Contact Anticoagulation Diagnoses Anticoagulant Therapy Mutation Factor V Leiden Heterozygous (HCC) Monitoring For Therapeutic Drug Therapy Thrombosis Deep Vein Personal History Stefan Salomon M.D. [address] [phone] [facility] Referral ID Status Reason Start Date Expiration Date V isits Requested Visits Authorized [id number] Authorized 02/01/2023 01/31/2026 300 300 Encounter Details Date Type Department Care Team (Latest Contact Info) Description 05/17/2023 10:00 AM BARREL LAPPER Anticoagulation Visit Department of Anticoagulation in [place], [place] [address] [place] [address] Stefan Salomon M.D. [address] [place] [phone] Anticoagulant Therapy [Z79.01] (Primary Dx); Mutation Factor V Leiden Heterozygous (HCC); Monitoring For Therapeutic Drug Therapy [Z51.81]; Thrombosis Deep Vein Personal History; Hypertension Essential Primary; Hyperlipidemia; Chcf (Current) Anticoagulant Treatment Social History Tobacco Use [...] How often do you attend anabaptism or temple serv ices? Never 07/09/2022 Do [...] Answer Date Recorded PHQ-2 Score 0 07/09/2022 [facility] of Occupat ional Health - Occupational Stress [...] file Gender Identity Male 07/02/2017 9:12 AM BARREL LAPPER Sexual Orientation Straight 07/02/2017 9: 12 AM BARREL LAPPER documented as of this encounter Patient Instructions * Patient Instructions* Brittany Wolf R.N. - 05/17/2023 10:00 AM BARREL LAPPER Your next INR will be 06/28/2023. You will need to call the Anticoagulation Program for warfarin dosing at the scheduled time for your nurse visit, as indicated on your Patient Appointment Guide (PAG). To reschedule your appointment or for questions about your warfarin, please call Primary Care Anticoagulation Program at [phone] from 7:30 am to 4:30 pm. Saturday-Saturday [...] if you start any herbal or other mzkw-sun-xeyptvu product (check with your doctor, a nurse, or pharmacist). If you change your diet significantly. If you decide to stop or start using tobacco or alcohol. If you notice unusual bruising or bleeding. If you notice dark, tarry, or bright red stools or blood in your urine. If you have a painful and swollen calf. EL LAPPER documented in this encounter Progress Notes * [...] time. Total time spent with patient: N/A EL LAPPER documented in this encounter Plan of Treatment Upcoming Encounters Date Type Department Care Team (Latest Contact Info) Description 07/25/2023 3:40 PM BARREL LAPPER Office Visit Department of Dermatology in [place], [place] [address] [place] [phone] Crystal Quintero M.D. [address] [place] [phone] 08/02/2023 8:50 AM BARREL LAPPER Appointment Department of Laboratory Medicine in [address] [phone] Stefan Salomon M.D. [address] [place] [phone] 08/02/2023 9:30 AM BARREL LAPPER Anticoagulation Visit Department of Anticoagulation in [place], [place] [address] [place] [phone] Stefan Salomon M.D. [address] [place] [phone] documented as of this encounter Results * INR Reflex, POCT, Blood (06/04/2023 1:50 PM BARREL LAPPER) INR Reflex, POCT, B 2.0 06/04/2023 1:50 PM BARREL LAPPER CNFL Comment: ----ADDITIONAL INFORMATION---- Standard intensity warfarin therapeutic range: 2.0 to 3.0 ?? High intensity warfarin therapeutic range: 2.5 to 3.5 Blood (Blood, Capillary) 06/04/2023 1:50 PM BARREL LAPPER 06/04/2023 1:50 PM BARREL LAPPER Stefan Salomon M.D. LAB POCT ORDERABLES - DEVICE [facility] [address] [place] [address], [facility] CNFL [facility] in [address] [address] documented in this encounter Visit Diagnoses Diagnosis Anticoagulant Therapy [Z79.01]- Primary Mutation Factor V Leiden Heterozygous (HCC) Monitoring For Therapeutic Drug Therapy [Z51.81] Thrombosis Deep Vein Personal History Hypertension Essential Primary Hyperlipidemia Chcf (Current) Anticoagulant Treatment documented in this encounter Additional Health Concerns Assessment Noted Time PHQ-9 Depression Total Score: 0 07/09/19 23 8:29 AM BARREL LAPPER documented as of this encounter Care Teams Procurement Professional Relationship Specialty Start Date End Date Stefan Salomon M.D. [address] [place] [phone] PCP - General Family Medicine 07/09/22 Anticoagulation Team 07/09/22 documented as of this encounter
--- OUTSIDE RECORDS SUMMARY | 2023-07-23 08:12 | XMS_ITS | Encounter Summary ---
Author Name Unknown Organization [facility] Address [address] [place] [address] Care Team Providers Care Marine Cargo Surveyor Name Role Phone Stefan Salomon M.D. Primary Care Provider [phone] Reason for Visit * Reason Comments Med Refill Encounter Details Date Type Department Care Team (Late st Contact Info) Description 04/02/2023 Refill Department of Family Medicine, [facility], in [address] [phone] Stefan Salomon M.D. [address] [place] [phone] Med Refill Social History Tobacco Use Types [...] How often do you attend advent or amish serv ices? Never 07/09/2022 Do [...] Answer Date Recorded PHQ-2 Score 0 07/09/2022 [facility] of Occupat ional Health - Occupational [...] file Gender Identity Male 07/02/2017 9:12 AM REGIONAL TRAINER Sexual Orientation Straight 07/02/2017 9: 12 AM REGIONAL TRAINER documented as of this encounter Miscellaneous Notes [...] (Latest Contact Info) Description 07/25/2023 3:40 PM REGIONAL TRAINER Office Visit Department of Dermatology in [place], [place] [address] [place] [address] Crystal Quintero M.D. [address] [place] [phone] 08/02/2023 8:50 AM REGIONAL TRAINER Appointment Department of Laboratory Medicine in [address] [phone] Stefan Salomon M.D. [address] [place] [phone] 08/02/2023 9:30 AM REGIONAL TRAINER Anticoagulation Visit Department of Anticoagulation in [place], [place] [address] [place] [phone] Stefan Salomon M.D. [address] [place] [phone] documented as of this encounter Visit Diagnoses Diagnosis Chronic Pain Syndrome Degeneration Disc Cervical Polyarthralgia documented in this encounter Additional Health Concerns Assessment Noted Time PHQ-9 Depression Total Score: 0 07/09/19 8:29 AM REGIONAL TRAINER documented as of this encounter Care Teams Marine Cargo Surveyor Relationship Specialty Start Date End Date Stefan Salomon M.D. [address] [place] [phone] PCP - General Family Medicine 07/09/22 Anticoagulation Team 07/09/22 documented as of this encounter
--- OUTSIDE RECORDS SUMMARY | 2023-07-23 08:12 | XMS_ITS | Encounter Summary ---
Author Name Unknown Organization [facility] Address [address] [place] [address] Care Team Providers Care Medical Record Assistant Name Role Phone Stefan Salomon M.D. Primary Care Provider [phone] Reason for Visit * Outpatient (Routine) - Closed Specialty Diagnoses / Procedures Referred By Contac t Referred To Contact Anticoagulation Stefan Salomon M.D. [address] [place] [phone] [facility] Referral ID Status Reason Start Date Expiration Date Visits Re quested Visits Authorized [id number] Closed 04/19/2023 04/18/2026 1 1 Encounter Details Date Type Department Care Team (Latest Contact Info) Description 04/22/2023 8:00 AM RADIOISOTOPE PRODUCTION OPERATOR Anticoagulation Visit Department of Anticoagulation in [place], [place] [address] [place] [address] Stefan Salomon M.D. [address] [place] [phone] Anticoagulant Therapy [Z79.01] (Primary Dx); Mutation [...] How often do you attend quaker or taoism serv ices? Never 07/09/2022 Do [...] Answer Date Recorded PHQ-2 Score 0 07/09/2022 [facility] of Occupat ional Health - Occupational Stress [...] file Gender Identity Male 07/02/2017 9:12 AM RADIOISOTOPE PRODUCTION OPERATOR Sexual Orientation Straight 07/02/2017 9: 12 AM RADIOISOTOPE PRODUCTION OPERATOR documented as of this encounter Patient Instructions * Patient Instructions* Christen Alexander R.N. - 04/22/2023 8:00 AM RADIOISOTOPE PRODUCTION OPERATOR Your next INR will be 05/17/23. You will need to call the Anticoagulation Program for warfarin dosing at the scheduled time for your nurse visit, as indicated on your Patient Appointment Guide (PAG). To reschedule your appointment or for questions about your warfarin, please call Primary Care Anticoagulation Program at [phone] from 7:30 am to 4:30 pm. Saturday-Saturday [...] if you start any herbal or other vczi-cwn-cjaljqb product (check with your doctor, a nurse, or pharmacist). If you change your diet significantly. If you decide to stop or start using tobacco or alcohol. If you notice unusual bruising or bleeding. If you notice dark, tarry, or bright red stools or blood in your urine. If you have a painful and swollen calf. OISOTOPE PRODUCTION OPERATOR documented in this encounter Progress Notes * [...] indicated above stating consult required. Consulted Anticoagulation [facility] for plan. Currently bridging: no. INR is therapeutic/supratherapeutic. Additional dosing or follow-up information: Provider consulted: Verenice Zamora- Anticoagulation [facility] Pt is on injectable anticoagulant: No. Plan used: Consult. See Anticoagulation Track Calendar for dosing and plan details. Anticoagulation Visit Summary: Patient repeats back dosing instructions, date of next INR, and has no further questions at this time. Total time spent with patient: 14 minutes OISOTOPE PRODUCTION OPERATOR documented in this encounter Plan of Treatment Upcoming Encounters Date Type Department Care Team (Latest Contact Info) Description 07/25/2023 3:40 PM RADIOISOTOPE PRODUCTION OPERATOR Office Visit Department of Dermatology in [place], [place] [address] [place] [phone] Crystal Quintero M.D. [address] [place] [phone] 08/02/2023 8:50 AM RADIOISOTOPE PRODUCTION OPERATOR Appointment Department of Laboratory Medicine in [address] [phone] Stefan Salomon M.D. [address] [place] [phone] 08/02/2023 9:30 AM RADIOISOTOPE PRODUCTION OPERATOR Anticoagulation Visit Department of Anticoagulation in [place], [place] [address] [place] [address] Stefan Salomon M.D. [address] [place] [phone] documented as of this encounter Results * INR Reflex, POCT, Blood (05/17/2023 7:29 AM RADIOISOTOPE PRODUCTION OPERATOR) INR Reflex, POCT, B 2.1 05/17/2023 7:29 AM RADIOISOTOPE PRODUCTION OPERATOR CNFL Comment: ----ADDITIONAL INFORMATION---- Standard intensity warfarin therapeutic range: 2.0 to 3.0 ?? High intensity warfarin therapeutic range: 2.5 to 3.5 Blood (Blood, Capillary) 05/17/2023 7:29 AM RADIOISOTOPE PRODUCTION OPERATOR 05/17/2023 7:29 AM RADIOISOTOPE PRODUCTION OPERATOR Stefan Salomon M.D. LAB POCT ORDERABLES - DEVICE [facility] [address] [place] [address], [facility] CNFL [facility] in [address] [address] documented in this encounter Visit Diagnoses Diagnosis Anticoagulant Therapy [Z79.01]- Primary Mutation Factor V Leiden Heterozygous (HCC) Monitoring For Therapeutic Drug Therapy [Z51.81] Thrombosis Deep Vein Personal History documented in this encounter Additional Health Concerns Assessment Noted Time PHQ-9 Depression Total Score: 0 07/09/19 23 8:29 AM RADIOISOTOPE PRODUCTION OPERATOR documented as of this encounter Care Teams Medical Record Assistant Relationship Specialty Start Date End Date Stefan Salomon M.D. [address] [place] [phone] PCP - General Family Medicine 07/09/22 Anticoagulation Team 07/09/22 documented as of this encounter
--- OUTSIDE RECORDS SUMMARY | 2023-07-23 08:12 | XMS_ITS | Encounter Summary ---
Author Name Unknown Organization [facility] Address [address] [place] [address] Care Team Providers Care Conduit Helper Name Role Phone Stefan Salomon M.D. Primary Care Provider [phone] Reason for Visit * Reason Comments Med Refill Encounter Details Date Type Department Care Team (Late st Contact Info) Description 03/20/2023 Refill Department of Family Medicine, [facility] [place] [facility], in [place], [place] [address] [place] [phone] Yue Alonso M.D. [address] [place] [phone] Med Refill Social History Tobacco Use Types [...] week 07/09/2022 How often do you attend denominational or taoism serv ices? Never 07/09/2022 Do you belong to any clubs o r organizations such as denominational groups, unions, fraternal or athletic groups, or [...] Answer Date Recorded PHQ-2 Score 0 07/09/2022 [facility] of Occupat ional Health - Occupational [...] No 07/09/2022 Housing Stability Vital Sign Answer Ytshawn e Recorded In the last 12 months, [...] file Gender Identity Male 07/02/2017 9:12 AM LOGISTICS MANAGER Sexual Orientation Straight 07/02/2017 9: 12 AM LOGISTICS MANAGER documented as of this encounter Plan of Treatment Upcoming Encounters Date Type Department Care Team (Latest Contact Info) Description 07/25/2023 3:40 PM LOGISTICS MANAGER Office Visit Department of Dermatology in [place], [place] [address] [place] [phone] Crystal Quintero M.D. [address] [place] [phone] 08/02/2023 8:50 AM LOGISTICS MANAGER Appointment Department of Laboratory Medicine in [address] [phone] Stefan Salomon M.D. [address] [place] [phone] 08/02/2023 9:30 AM LOGISTICS MANAGER Anticoagulation Visit Department of Anticoagulation in [place], [place] [address] [place] [address] Stefan Salomon M.D. [address] [place] [phone] documented as of this encounter Visit Diagnoses Not on filedocumented in this encounter Additional Health Concerns Assessment Noted Time PHQ-9 Depression Total Score: 0 07/09/19 23 8:29 AM LOGISTICS MANAGER documented as of this encounter Care Teams Conduit Helper Relationship Specialty Start Date End Date Stefan Salomon M.D. [address] [place] [phone] PCP - General Family Medicine 07/09/22 Anticoagulation Team 07/09/22 documented as of this encounter
--- OUTSIDE RECORDS SUMMARY | 2023-07-23 08:12 | XMS_ITS | Encounter Summary ---
Author Name Unknown Organization [facility] Address [address] [place] [address] Care Team Providers Care Dye Worker Name Role Phone Stefan Salomon M.D. Primary Care Provider [phone] Encounter Details Date Type Department Care Team (Latest Contact Info) Description 04/19/2023 9:02 AM ACID WASH OPERATOR - 04/19/2023 11:59 PM [facility] Hospital Encounter Department of Laboratory Medicine in [address] [phone] Stefan Salomon M.D. [address] [place] [phone] Discharge Disposition: Home or Self Care Social [...] week 07/09/2022 How often do you attend mandaen or alevism serv ices? Never 07/09/2022 Do you belong to any clubs o r organizations such as mandaen groups, unions, fraternal or athletic groups, or [...] file Gender Identity Male 07/02/2017 9:12 AM ACID WASH OPERATOR Sexual Orientation Straight 07/02/2017 9: 12 AM ACID WASH OPERATOR documented as of this encounter Medications [...] (Latest Contact Info) Description 07/25/2023 3:40 PM ACID WASH OPERATOR Office Visit Department of Dermatology in [place], [place] [address] [place] [address] Crystal Quintero M.D. [address] [place] [address] 08/02/2023 8:50 AM ACID WASH OPERATOR Appointment Department of Laboratory Medicine in [address] [phone] Stefan Salomon M.D. [address] [place] [phone] 08/02/2023 9:30 AM ACID WASH OPERATOR Anticoagulation Visit Department of Anticoagulation in [place], [place] [address] [place] [phone] Stefan Salomon M.D. [address] [place] [phone] documented as of this encounter Procedures Procedure Name Priority Date/Time Associated Diagnosis Comments INR REFLEX, POCT, B Routine 04/19/2023 7 :38 AM ACID WASH OPERATOR documented in this encounter Results * INR Reflex, POCT, Blood (04/19/2023 7:38 AM ACID WASH OPERATOR) INR Reflex, POCT, B 2.1 04/19/2023 7:38 AM ACID WASH OPERATOR CNFL Comment: ----ADDITIONAL INFORMATION---- Standard intensity warfarin therapeutic range: 2.0 to 3.0 ?? High intensity warfarin therapeutic range: 2.5 to 3.5 Blood 04/19/2023 7:38 AM ACID WASH OPERATOR 04/19/2023 7:40 AM ACID WASH OPERATOR Stefan Salomon M.D. LAB POCT ORDERABLES - DEVICE [facility] [address] [place] [address], [facility] CNFL [facility] in [address] [address] documented in this encounter Visit Diagnoses Not on filedocumented in this encounter Additional Health Concerns Assessment Noted Time PHQ-9 Depression Total Score: 0 07/09/19 23 8:29 AM ACID WASH OPERATOR documented as of this encounter Care Teams Dye Worker Relationship Specialty Start Date End Date Stefan Salomon M.D. [address] [phone] PCP - General Family Medicine 07/09/22 Anticoagulation Team 07/09/22 documented as of this encounter
--- OUTSIDE RECORDS SUMMARY | 2023-07-23 08:12 | XMS_ITS | Encounter Summary ---
Author Name Unknown Organization [facility] Address [address] [place] [address] Care Team Providers Care Mold Blower Name Role Phone Stefan Salomon M.D. Primary Care Provider [phone] Encounter Details Date Type Department Care Team (Latest Contact Info) Description 04/19/2023 7:20 AM INSTRUMENTATION DESIGNER - 04/19/2023 7:32 AM INSTRUMENTATION DESIGNER Hospital Encounter Department of Laboratory Medicine in [address] [phone] Stefan Salomon M.D. [address] [place] [phone] Hypertension Essential Primary; Hyperlipidemia Discharge Disposition: Home [...] How often do you attend bahai or synagogue serv ices? Never 07/09/2022 Do [...] Answer Date Recorded PHQ-2 Score 0 07/09/2022 [facility] - Occupational Stress Questionnaire [...] file Gender Identity Male 07/02/2017 9:12 AM INSTRUMENTATION DESIGNER Sexual Orientation Straight 07/02/2017 9: 12 AM INSTRUMENTATION DESIGNER documented as of this encounter Medications [...] (Latest Contact Info) Description 07/25/2023 3:40 PM INSTRUMENTATION DESIGNER Office Visit Department of Dermatology in [place], [place] [address] [place] [address] Crystal Quintero M.D. [address] [place] [address] 08/02/2023 8:50 AM INSTRUMENTATION DESIGNER Appointment Department of Laboratory Medicine in [address] [phone] Stefan Salomon M.D. [address] [place] [phone] 08/02/2023 9:30 AM INSTRUMENTATION DESIGNER Anticoagulation Visit Department of Anticoagulation in [place], [place] [address] [place] [address] Stefan Salomon M.D. [address] [place] [phone] documented as of this encounter Procedures Procedure Name Priority Date/Time Associated Diagnosis Comments LIPID PANEL, S Routine 04/19/2023 7:39 AM INSTRUMENTATION DESIGNER Hyperlipidemia BASIC METABOLIC PANEL, S/P Routine 04/19/2023 7:39 AM INSTRUMENTATION DESIGNER Hypertension Essential Primary documented in this encounter Results * Lipid Panel (04/19/2023 7:39 AM INSTRUMENTATION DESIGNER) Triglycerides 113 mg/dL 04/19/2023 11:48 AM INSTRUMENTATION DESIGNER CNFL Comment: ----REFERENCE VALUE---- Normal: <150 mg/dL Borderline High: 150-199 mg/dL High: 200-499 mg/dL Very High: > or =500 mg/dL Cholesterol, Total 144 mg/dL 2022 11:48 AM INSTRUMENTATION DESIGNER CNFL Comment: ----REFERENCE VALUE---- Desirable: < 200 mg/dL Borderline High: 200 - 239 mg/dL High: > or = 240 mg/dL Cholesterol, LDL, Calculated 76 mg/dL 04/19/2023 12:10 PM INSTRUMENTATION DESIGNER CNFL Comment: ----REFERENCE VALUE---- Desirable: <100 mg/dL Above Desirable: 100-129 mg/dL Borderline High: 130-159 mg/dL High: 160-189 mg/dL Very High: >=190 mg/dL ----ADDITIONAL INFORMATION---- LDL cholesterol calculated using the Sosa/NIH equation. Cholesterol, HDL 48 >=40 mg/dL 04/19/20 12:10 PM INSTRUMENTATION DESIGNER CNFL Cholesterol, Non-HDL, Calculated 96 mg/dL 04/19/2023 12:10 PM INSTRUMENTATION DESIGNER CNFL Comment: ----REFERENCE VALUE---- Desirable: <130 mg/dL Above Desirable: 130-159 mg/dL Borderline High: 160-189 mg/dL High: 190-219 mg/dL Very High: > or =220 mg/dL Fasting (8 HR or more) No 04/19/2023 7:40 AM INSTRUMENTATION DESIGNER CNFL Blood (Blood, Venous) 04/19/2023 7:39 AM INSTRUMENTATION DESIGNER 04/19/2023 7:40 AM INSTRUMENTATION DESIGNER Stefan Salomon M.D. LAB BLOOD ADD-ON [facility] [address] [place] [address], [facility] [place] [address] * Basic Metabolic Panel (04/19/2023 7:39 AM INSTRUMENTATION DESIGNER) Potassium, P 4.1 3.6 - 5.2 mmol/L 04/19/2023 11:48 AM INSTRUMENTATION DESIGNER CNFL Sodium, P 138 135 - 145 mmol/L 04/19/2023 11:48 AM INSTRUMENTATION DESIGNER CNFL Chloride, P 102 98 - 107 mmol/L 04/19/2023 11:48 AM INSTRUMENTATION DESIGNER CNFL Bicarbonate, P 23 22 - 29 mmol/L 04/19/2023 11:48 AM INSTRUMENTATION DESIGNER CNFL Anion Gap, P 13 7 - 15 04/19/2023 11:48 AM INSTRUMENTATION DESIGNER CNFL BUN (Blood Urea Nitrogen), P 21 8 - 24 mg/dL 04/19/2023 11:48 AM INSTRUMENTATION DESIGNER CNFL Creatinine 0.87 0.74 - 1.35 mg/dL 04/19/2023 11:48 AM INSTRUMENTATION DESIGNER CNFL Estimated GFR (eGFR) >90 >=60 mL/min/BSA 04/19/2023 11:48 AM INSTRUMENTATION DESIGNER CNFL Comment: Estimated GFR calculated using the 2020 CKD_EPI creatinine equation. Calcium, Total, P 9.1 8.8 - 10.2 mg/dL 04/19/2023 11:48 AM INSTRUMENTATION DESIGNER CNFL Glucose, P 103 70 - 140 mg/dL 04/19/2023 11:48 AM INSTRUMENTATION DESIGNER CNFL Blood (Blood, Venous) 04/19/2023 7:39 AM INSTRUMENTATION DESIGNER 04/19/2023 7:40 AM INSTRUMENTATION DESIGNER Stefan Salomon M.D. LAB BLOOD ADD-ON [facility] [address] [place] [address], [facility] CNFL [facility] in [address] [phone] documented in this encounter Visit Diagnoses Diagnosis Hypertension Essential Primary Hyperlipidemia documented in this encounter Additional Health Concerns Assessment Noted Time PHQ-9 Depression Total Score: 0 07/09/19 23 8:29 AM INSTRUMENTATION DESIGNER documented as of this encounter Care Teams Mold Blower Relationship Specialty Start Date End Date Stefan Salomon M.D. [address] [place] [phone] PCP - General Family Medicine 07/09/22 Anticoagulation Team 07/09/22 documented as of this encounter
--- OUTSIDE RECORDS SUMMARY | 2023-07-23 08:12 | XMS_ITS | Encounter Summary ---
Author Name Unknown Organization [facility] Address [address] [place] [address] Care Team Providers Care Marketing Co Op Name Role Phone Stefan Salomon M.D. Primary Care Provider [phone] Reason for Visit * Reason Comments Med Refill Encounter Details Date Type Department Care Team (Late st Contact Info) Description 05/01/2023 Refill Department of Family Medicine, [facility], in [address] [phone] Stefan Salomon M.D. [address] [place] [phone] Med Refill Social History Tobacco Use Types [...] How often do you attend samaritan or bahai serv ices? Never 07/09/2022 Do you belong [...] Answer Date Recorded PHQ-2 Score 0 07/09/2022 [facility] of Occupat ional Health - [...] file Gender Identity Male 07/02/2017 9:12 AM DRAFTSPERSON Sexual Orientation Straight 07/02/2017 9: 12 AM DRAFTSPERSON documented as of this encounter Miscellaneous Notes * Telephone Encounter - Rachel Llamas L.P.N. - 05/02/2023 11:47 AM DRAFTSPERSON Controlled substance renewal for Tramadol 50 mg: [...] renewal may be on or after 06/02/23 TSPERSON * Telephone Encounter - Caity Gavin - 05/01/2023 7:59 AM CST Images from the original note were not included. Nurse review: Unable to forward request to provider; Controlled Substance, CSA Primary Provider: Stefan Salomon M.D. TSPERSON documented in this encounter Plan of Treatment Upcoming Encounters Date Type Department Care Team (Latest Contact Info) Description 07/25/2023 3:40 PM DRAFTSPERSON Office Visit Department of Dermatology in [place], [place] [address] [place] [address] Crystal Quintero M.D. [address] [place] [phone] 08/02/2023 8:50 AM DRAFTSPERSON Appointment Department of Laboratory Medicine in [address] [phone] Stefan Salomon M.D. [address] [place] [phone] 08/02/2023 9:30 AM DRAFTSPERSON Anticoagulation Visit Department of Anticoagulation in [place], [place] [address] [place] [phone] Stefan Salomon M.D. [address] [place] [phone] documented as of this encounter Visit Diagnoses Diagnosis Chronic Pain Syndrome Degeneration Disc Cervical Polyarthralgia documented in this encounter Additional Health Concerns Assessment Noted Time PHQ-9 Depression Total Score: 0 07/09/19 8:29 AM DRAFTSPERSON documented as of this encounter Care Teams Marketing Co Op Relationship Specialty Start Date End Date Stefan Salomon M.D. [address] [place] [phone] PCP - General Family Medicine 07/09/22 Anticoagulation Team 07/09/22 documented as of this encounter
--- OUTSIDE RECORDS SUMMARY | 2023-07-23 08:12 | XMS_ITS | Encounter Summary ---
Author Name Unknown Organization [facility] Address [address] [place] [address] Care Team Providers Care Sports Administrator Name Role Phone Stefan Salomon M.D. Primary Care Provider [phone] Reason for Referral * Outpatient (Routine) - Closed Specialty Diagnoses / Procedures Referred By Contdayana t Referred To Contact Anticoagulation Stefan Salomon M.D. [address] [place] [phone] [facility] Referral ID Status Reason Start Date Expiration Date Visits Re quested Visits Authorized [id number] Closed 04/19/2023 04/18/2026 1 1 Scheduling Instructions unable to reach 04/19 BASE OPERATOR Reason for Visit * Reason Onset Date Comments Anticoagulation 04/19/2023 Unable to reach 04/19/23 Encounter Details Date Type Department Care Team (Latest Contact Info) Description 04/19/2023 Clinical Communication Department of Anticoagulation in [place], [place] [address] [place] [address] Pippa Morales, RCotyNCoty [address] [place] [phone] Anticoagulation (Unable to reach 04/19/23) Social History [...] How often do you attend religious or uatsdin serv ices? Never 07/09/2022 Do [...] Answer Date Recorded PHQ-2 Score 0 07/09/2022 [facility] of Occupat ional Health - Occupational Stress [...] file Gender Identity Male 07/02/2017 9:12 AM DATABASE OPERATOR Sexual Orientation Straight 07/02/2017 9: 12 AM DATABASE OPERATOR documented as of this encounter Miscellaneous Notes * Telephone Encounter - Pippa Morales R.N. - 04/19/2023 4:38 PM DATABASE OPERATOR Patient contacted today by staff as they have not contacted the anticoagulation program following INR test. INR No communication outcome: Unable to reach. First Attempt. BASE OPERATOR documented in this encounter Plan of Treatment Upcoming Encounters Date Type Department Care Team (Latest Contact Info) Description 07/25/2023 3:40 PM DATABASE OPERATOR Office Visit Department of Dermatology in [place], [place] [address] [place] [address] Crystal Quintero M.D. [address] [place] [phone] 08/02/2023 8:50 AM DATABASE OPERATOR Appointment Department of Laboratory Medicine in [address] [phone] Stefan Salomon M.D. [address] [place] [phone] 08/02/2023 9:30 AM DATABASE OPERATOR Anticoagulation Visit Department of Anticoagulation in [place], [place] [address] [place] [phone] Stefan Salomon M.D. [address] [place] [phone] Scheduled Referrals Name Type Priority Associated Diagnoses Order Schedule Anticoagulation nurse visit (clinic) Outpatient Referral Routine Expected: 04/22/2023, Expires: 07/20/2024 documented as of this encounter Visit Diagnoses Not on filedocumented in this encounter Additional Health Concerns Assessment Noted Time PHQ-9 Depression Total Score: 0 07/09/19 23 8:29 AM DATABASE OPERATOR documented as of this encounter Care Teams Sports Administrator Relationship Specialty Start Date End Date Stefan Salomon M.D. [address] [phone] PCP - General Family Medicine 07/09/22 Anticoagulation Team 07/09/22 documented as of this encounter
--- OUTSIDE RECORDS SUMMARY | 2023-07-23 08:12 | XMS_ITS | Encounter Summary ---
Author Name Unknown Organization [facility] Address [address] [place] [address] Care Team Providers Care Elevator Repair Mechanic Name Role Phone Stefan Salomon M.D. Primary Care Provider [phone] Reason for Visit * Outpatient (Routine) - Authorized Specialty Diagnoses / Procedures Referred By Contdayana t Referred To Contact Anticoagulation Diagnoses Anticoagulant Therapy Mutation Factor V Leiden Heterozygous (HCC) Monitoring For Therapeutic Drug Therapy Thrombosis Deep Vein Personal History Stefan Salomon M.D. [address] [phone] [facility] Referral ID Status Reason Start Date Expiration Date V isits Requested Visits Authorized [id number] Authorized 02/01/2023 01/31/2026 300 300 Encounter Details Date Type Department Care Team (Latest Contact Info) Description 03/14/2023 9:30 AM CDT Anticoagulation Visit Department of Anticoagulation in [place], [place] [address] [place] [address] Stefan Salomon M.D. [address] [place] [phone] Anticoagulant Therapy [Z79.01]; Mutation Factor V [...] How often do you attend shinto or christianity serv ices? Never 07/09/2022 Do [...] Answer Date Recorded PHQ-2 Score 0 07/09/2022 [facility] of Occupat ional Health - Occupational Stress [...] file Gender Identity Male 07/02/2017 9:12 AM TRANSACTION ADVISORY SERVICES MANAGER Sexual Orientation Straight 07/02/2017 9: 12 AM TRANSACTION ADVISORY SERVICES MANAGER documented as of this encounter [...] please call Primary Care Anticoagulation Program at [phone] from 7:30 am to 4:30 pm. Saturday-Saturday [...] if you start any herbal or other iwmo-uoy-dhqvkns product (check with your doctor, a nurse, [...] (Latest Contact Info) Description 07/25/2023 3:40 PM TRANSACTION ADVISORY SERVICES MANAGER Office Visit Department of Dermatology in [place], [place] [address] [place] [address] Crystal Quintero M.D. [address] [place] [phone] 08/02/2023 8:50 AM TRANSACTION ADVISORY SERVICES MANAGER Appointment Department of Laboratory Medicine in [address] [phone] Stefan Salomon M.D. [address] [place] [phone] 08/02/2023 9:30 AM TRANSACTION ADVISORY SERVICES MANAGER Anticoagulation Visit Department of Anticoagulation in [place], [place] [address] [place] [phone] Stefan Salomon M.D. [address] [place] [phone] documented as of this encounter Visit Diagnoses Diagnosis Anticoagulant Therapy [Z79.01] Mutation Factor V Leiden Heterozygous (HCC) Monitoring For Therapeutic Drug Therapy [Z51.81] Thrombosis Deep Vein Personal History documented in this encounter Additional Health Concerns Assessment Noted Time PHQ-9 Depression Total Score: 0 07/09/19 23 8:29 AM TRANSACTION ADVISORY SERVICES MANAGER documented as of this encounter Care Teams Elevator Repair Mechanic Relationship Specialty Start Date End Date Stefan Salomon M.D. [address] [place] [phone] PCP - General Family Medicine 07/09/22 Anticoagulation Team 07/09/22 documented as of this encounter
--- OUTSIDE RECORDS SUMMARY | 2023-07-23 08:13 | XMS_ITS | Encounter Summary ---
Author Name Unknown Organization [facility] Address [address] [place] [address] Care Team Providers Care Sumac Tanner Name Role Phone Stefan Salomon M.D. Primary Care Provider [phone] Reason for Visit * Reason Comments Med Refill Encounter Details Date Type Department Care Team (Late st Contact Info) Description 02/26/2023 Refill Department of Family Medicine, [facility], in [address] [phone] Erin Humphrey M.D. [address] [place] [phone] Med Refill Social History Tobacco Use Types [...] week 07/09/2022 How often do you attend latter-day or anabaptism serv ices? Never 07/09/2022 Do you belong to any clubs o r organizations such as latter-day groups, unions, fraternal or athletic groups, or [...] file Gender Identity Male 07/02/2017 9:12 AM MOUNTER SAXOPHONES Sexual Orientation Straight 07/02/2017 9: 12 AM MOUNTER SAXOPHONES documented as of this encounter Plan of Treatment Upcoming Encounters Date Type Department Care Team (Latest Contact Info) Description 07/25/2023 3:40 PM MOUNTER SAXOPHONES Office Visit Department of Dermatology in [place], [place] [address] [place] [phone] Crystal Quintero M.D. [address] [place] [phone] 08/02/2023 8:50 AM MOUNTER SAXOPHONES Appointment Department of Laboratory Medicine in [address] [phone] Stefan Salomon M.D. [address] [place] [phone] 08/02/2023 9:30 AM MOUNTER SAXOPHONES Anticoagulation Visit Department of Anticoagulation in [place], [place] [address] [place] [address] Stefan Salomon M.D. [address] [place] [phone] documented as of this encounter Visit Diagnoses Diagnosis Chronic Pain Syndrome Degeneration Disc Cervical Polyarthralgia documented in this encounter Additional Health Concerns Assessment Noted Time PHQ-9 Depression Total Score: 0 07/09/19 23 8:29 AM MOUNTER SAXOPHONES documented as of this encounter Care Teams Sumac Tanner Relationship Specialty Start Date End Date Stefan Salomon M.D. [address] [place] [phone] PCP - General Family Medicine 07/09/22 Anticoagulation Team 07/09/22 documented as of this encounter
--- OUTSIDE RECORDS SUMMARY | 2023-07-23 08:13 | XMS_ITS | Encounter Summary ---
Author Name Unknown Organization [facility] Address [address] [place] [address] Care Team Providers Care Employee Relations Manager Name Role Phone Stefan Salomon M.D. Primary Care Provider [phone] Reason for Referral * Outpatient (Routine) - Authorized Specialty Diagnoses / Procedures Referred By Contac t Referred To Contact Anticoagulation Diagnoses Anticoagulant Therapy Mutation Factor V Leiden Heterozygous (HCC) Monitoring For Therapeutic Drug Therapy Thrombosis Deep Vein Personal History Stefan Salomon M.D. [address] [place] [phone] [facility] Referral ID Status Reason Start Date Expiration Date V isits Requested Visits Authorized [id number] Authorized 02/01/2023 01/31/2026 300 300 Reason for Visit * Outpatient (Routine) - Closed Specialty Diagnoses / Procedures Referred By Contac t Referred To Contact Anticoagulation Stefan Salomon M.D. [address] [place] [phone] [facility] Referral ID Status Reason Start Date Expiration Date Visits Re quested Visits Authorized [id number] Closed 01/31/2023 01/30/2026 1 1 Encounter Details Date Type Department Care Team (Latest Contact Info) Description 02/01/2023 8:00 AM CDT Anticoagulation Visit Department of Anticoagulation in [place], [place] [address] [place] [address] Stefan Salomon M.D. [address] [place] [phone] Anticoagulant Therapy [Z79.01] (Primary Dx); Mutation Factor [...] week 07/09/2022 How often do you attend pentecostalism or restorationist serv ices? Never 07/09/2022 Do you belong to any clubs o r organizations such as pentecostalism groups, unions, fraternal or athletic groups, or [...] Date Recorded PHQ-2 Score 0 07/09/2022 [facility] of Occupat ional [facility] - Occupational Stress Questionnaire Answer Date [...] file Gender Identity Male 07/02/2017 9:12 AM BRICK AND BLOCK MASON Sexual Orientation Straight 07/02/2017 9: 12 AM BRICK AND BLOCK MASON documented as of this encounter Patient Instructions [...] please call Primary Care Anticoagulation Program at [phone] from 7:30 am to 4:30 pm. Saturday-Saturday [...] if you start any herbal or other kxth-ayz-mcwipkv product (check with your doctor, a nurse, [...] (Latest Contact Info) Description 07/25/2023 3:40 PM BRICK AND BLOCK MASON Office Visit Department of Dermatology in [place], [place] [address] [place] [phone] Crystal Quintero M.D. [address] [place] [phone] 08/02/2023 8:50 AM BRICK AND BLOCK MASON Appointment Department of Laboratory Medicine in [address] [phone] Stefan Salomon M.D. [address] [place] [phone] 08/02/2023 9:30 AM BRICK AND BLOCK MASON Anticoagulation Visit Department of Anticoagulation in [place], [place] [address] [place] [phone] Stefan Salomon M.D. [address] [place] [phone] Scheduled Referrals Name Type Priority Associated Diagnoses [...] POCT, B 2.0 03/14/2023 7:51 AM CDT [facility] Comment: ----ADDITIONAL INFORMATION---- Standard intensity warfarin therapeutic range: 2.0 to 3.0 ?? High intensity warfarin therapeutic range: 2.5 to 3.5 Blood (Blood, Capillary) 03/14/2023 7:51 AM CDT 03/14/2023 7:51 AM CDT Stefan Salomon M.D. LAB POCT ORDERABLES - DEVICE [facility] [address] [place] [address], [facility] in [address] [address] documented in this encounter Visit Diagnoses Diagnosis Anticoagulant Therapy [Z79.01]- Primary Mutation Factor V Leiden Heterozygous (HCC) Monitoring For Therapeutic Drug Therapy [Z51.81] Thrombosis Deep Vein Personal History documented in this encounter Additional Health Concerns Assessment Noted Time PHQ-9 Depression Total Score: 0 07/09/19 23 8:29 AM BRICK AND BLOCK MASON documented as of this encounter Care Teams Employee Relations Manager Relationship Specialty Start Date End Date Stefan Salomon M.D. [address] [place] [phone] PCP - General Family Medicine 07/09/22 Anticoagulation Team 07/09/22 documented as of this encounter
--- OUTSIDE RECORDS SUMMARY | 2023-07-23 08:13 | XMS_ITS | Encounter Summary ---
Author Name Unknown Organization [facility] Address [address] [place] [address] Care Team Providers Care Repack Room Worker Name Role Phone Stefan Salomon M.D. Primary Care Provider [phone] Reason for Visit * Reason Comments Med Management Tramadol no concerns refills * Outpatient (Routine) - Closed Specialty Diagnoses / Procedures Referred By Piero t Referred To Contact Family Medicine Stefan Salomon M.D. [address] [place] [phone] [facility] Region Referral ID Status Reason Start Date Expiration Date Visits Re quested Visits Authorized [id number] Closed 11/01/2022 10/31/2025 1 1 Encounter Details Date Type Department Care Team (Late st Contact Info) Description 02/21/2023 3:15 PM CDT Office Visit Department of Family Medicine, [facility], in [address] [phone] Stefan Salomon M.D. [address] [place] [phone] Chronic Pain Syndrome (Primary Dx); Degeneration [...] How often do you attend mandaen or mandaeism serv ices? Never 07/09/2022 Do [...] Answer Date Recorded PHQ-2 Score 0 07/09/2022 [facility] of Occupat ional Health - Occupational Stress [...] file Gender Identity Male 07/02/2017 9:12 AM PV INSTALLER TECH Sexual Orientation Straight 07/02/2017 9: 12 AM PV INSTALLER TECH documented as of this encounter Last Filed [...] Body Mass Index 28.89 08/01/2022 9:59 AM PV INSTALLER TECH documented in this encounter Progress Notes * [...] (Latest Contact Info) Description 07/25/2023 3:40 PM PV INSTALLER TECH Office Visit Department of Dermatology in [place], [place] [address] [place] [phone] Crystal Quintero M.D. [address] [place] [phone] 08/02/2023 8:50 AM PV INSTALLER TECH Appointment Department of Laboratory Medicine in [address] [phone] Stefan Salomon M.D. [address] [place] [phone] 08/02/2023 9:30 AM PV INSTALLER TECH Anticoagulation Visit Department of Anticoagulation in [place], [place] [address] [place] [address] Stefan Salomon M.D. [address] [phone] documented as of this encounter Results * Lipid Panel (04/19/2023 7:39 AM PV INSTALLER TECH) Triglycerides 113 mg/dL 04/19/2023 11:48 AM PV INSTALLER TECH [facility] Comment: ----REFERENCE VALUE---- Normal: <150 mg/dL Borderline High: 150-199 mg/dL High: 200-499 mg/dL Very High: > or =500 mg/dL Cholesterol, Total 144 mg/dL 2022 11:48 AM PV INSTALLER TECH [facility] Comment: ----REFERENCE VALUE---- Desirable: < 200 mg/dL Borderline High: 200 - 239 mg/dL High: > or = 240 mg/dL Cholesterol, LDL, Calculated 76 mg/dL 04/19/2023 12:10 PM PV INSTALLER TECH [facility] Comment: ----REFERENCE VALUE---- Desirable: <100 mg/dL Above Desirable: 100-129 mg/dL Borderline High: 130-159 mg/dL High: 160-189 mg/dL Very High: >=190 mg/dL ----ADDITIONAL INFORMATION---- LDL cholesterol calculated using the Sosa/NIH equation. Cholesterol, HDL 48 >=40 mg/dL 04/19/20 12:10 PM PV INSTALLER TECH [facility] Cholesterol, Non-HDL, Calculated 96 mg/dL 04/19/2023 12:10 PM PV INSTALLER TECH [facility] Comment: ----REFERENCE VALUE---- Desirable: <130 mg/dL Above Desirable: 130-159 mg/dL Borderline High: 160-189 mg/dL High: 190-219 mg/dL Very High: > or =220 mg/dL Fasting (8 HR or more) No 04/19/2023 7:40 AM PV INSTALLER TECH [facility] Blood (Blood, Venous) 04/19/2023 7:39 AM PV INSTALLER TECH 04/19/2023 7:40 AM PV INSTALLER TECH Stefan Salomon M.D. LAB BLOOD ADD-ON [facility] [address] [place] [phone], [facility] [[email or web address]] CN[facility] in [address] [address] * Basic Metabolic Panel (04/19/2023 7:39 AM PV INSTALLER TECH) Pathologist [facility] Potassium, P 4.1 3.6 - 5.2 mmol/L 04/19/2023 11:48 AM PV INSTALLER TECH [facility] Sodium, P 138 135 - 145 mmol/L 04/19/2023 11:48 AM PV INSTALLER TECH [facility] Chloride, P 102 98 - 107 mmol/L 04/19/2023 11:48 AM PV INSTALLER TECH [facility] Bicarbonate, P 23 22 - 29 mmol/L 04/19/2023 11:48 AM PV INSTALLER TECH [facility] Anion Gap, P 13 7 - 15 04/19/2023 11:48 AM PV INSTALLER TECH [facility] BUN (Blood Urea Nitrogen), P 21 8 - 24 mg/dL 04/19/2023 11:48 AM PV INSTALLER TECH [facility] Creatinine 0.87 0.74 - 1.35 mg/dL 04/19/2023 11:48 AM PV INSTALLER TECH [facility] Estimated GFR (eGFR) >90 >=60 mL/min/BSA 04/19/2023 11:48 AM PV INSTALLER TECH [facility] Comment: Estimated GFR calculated using the 2020 CKD_EPI creatinine equation. Calcium, Total, P 9.1 8.8 - 10.2 mg/dL 04/19/2023 11:48 AM PV INSTALLER TECH [facility] Glucose, P 103 70 - 140 mg/dL 04/19/2023 11:48 AM PV INSTALLER TECH [facility] Blood (Blood, Venous) 04/19/2023 7:39 AM PV INSTALLER TECH 04/19/2023 7:40 AM PV INSTALLER TECH Stefan Salomon M.D. LAB BLOOD ADD-ON [facility] [address] [place] [address], [place] CNFL [facility] in [address] [address] documented in this encounter Visit Diagnoses Diagnosis Chronic Pain Syndrome- Primary Degeneration Disc Cervical Polyarthralgia Hypertension Essential Primary Hyperlipidemia documented in this encounter Additional Health Concerns Assessment Noted Time PHQ-9 Depression Total Score: 0 07/09/19 23 8:29 AM PV INSTALLER TECH documented as of this encounter Care Teams Repack Room Worker Relationship Specialty Start Date End Date Stefan Salomon M.D. [address] [place] [phone] PCP - General Family Medicine 07/09/22 Anticoagulation Team 07/09/22 documented as of this encounter
--- OUTSIDE RECORDS SUMMARY | 2023-07-23 08:13 | XMS_ITS | Encounter Summary ---
Author Name Unknown Organization [facility] Address [address] [place] [address] Care Team Providers Care Rock Worker Name Role Phone Stefan Salomon M.D. Primary Care Provider [phone] Encounter Details Date Type Department Care Team (Latest Contact Info) Description 01/04/2023 7:32 AM CDT - 01/04/2023 11:59 PM CDT Hospital Encounter Department of Laboratory Medicine in [address] [phone] Stefan Salomno M.D. [address] [place] [phone] Anticoagulant Therapy; Mutation Factor V Leiden Heterozygous [...] How often do you attend mandaeism or latter-day serv ices? Never 07/09/2022 Do [...] file Gender Identity Male 07/02/2017 9:12 AM GLOBAL POSITION SYSTEM TECHNICIAN Sexual Orientation Straight 07/02/2017 9: 12 AM GLOBAL POSITION SYSTEM TECHNICIAN documented as of this encounter Medications [...] 360 capsule 3 05/17/2022 02/25/2023 losartan (COZAAR) 50 mg tablet Take 1 [...] (Latest Contact Info) Description 07/25/2023 3:40 PM GLOBAL POSITION SYSTEM TECHNICIAN Office Visit Department of Dermatology in [place], [place] [address] [place] [phone] Crystal Quintero M.D. [address] [place] [phone] 08/02/2023 8:50 AM GLOBAL POSITION SYSTEM TECHNICIAN Appointment Department of Laboratory Medicine in [address] [phone] Stefan Salomon M.D. [address] [place] [phone] 08/02/2023 9:30 AM GLOBAL POSITION SYSTEM TECHNICIAN Anticoagulation Visit Department of Anticoagulation in [place], [place] [address] [place] [address] Stefan Salomon M.D. [address] [place] [phone] documented as of this encounter Procedures Procedure [...] POCT ORDERABLES - DEVICE [facility] [address] [place] [address], [facility] CNFL [facility] in [address] [address] documented in this encounter Visit Diagnoses Diagnosis Anticoagulant Therapy Mutation Factor V Leiden Heterozygous (HCC) Monitoring For Therapeutic Drug Therapy Thrombosis Deep Vein Personal History documented in this encounter Additional Health Concerns Assessment Noted Time PHQ-9 Depression Total Score: 0 07/09/19 23 8:29 AM GLOBAL POSITION SYSTEM TECHNICIAN documented as of this encounter Care Teams Rock Worker Relationship Specialty Start Date End Date Stefan Salomon M.D. [address] [place] [phone] PCP - General Family Medicine 07/09/22 Anticoagulation Team 07/09/22 documented as of this encounter
--- OUTSIDE RECORDS SUMMARY | 2023-07-23 08:13 | XMS_ITS | Encounter Summary ---
Author Name Unknown Organization [facility] Address [address] [place] [address] Care Team Providers Care Chrome Worker Name Role Phone Stefan Salomon M.D. Primary Care Provider [phone] Reason for Visit * Reason Onset Date Comments New Med Request 02/25/2023 Med Increase Encounter Details Date Type Department Care Team (Latest Contact Info) Description 02/25/2023 Clinical Communication Department of Family Medicine, [facility], in [address] [phone] Stefan Salomon M.D. [address] [place] [phone] New Med Request (Med Increase) Social History [...] How often do you attend mormonism or jew serv ices? Never 07/09/2022 Do [...] Recorded PHQ-2 Score 0 07/09/2022 [facility] of Occupat ional Health [...] file Gender Identity Male 07/02/2017 9:12 AM PAYLOADER MACHINE OPERATOR Sexual Orientation Straight 07/02/2017 9: 12 AM PAYLOADER MACHINE OPERATOR documented as of this encounter Miscellaneous Notes * Telephone Encounter - Ty Christensen APRN, C.N.P. - 02/25/2023 12:40 PM CDT Signed, thank you documented in this encounter Plan of Treatment Upcoming Encounters Date Type Department Care Team (Latest Contact Info) Description 07/25/2023 3:40 PM PAYLOADER MACHINE OPERATOR Office Visit Department of Dermatology in [place], [place] [address] [place] [phone] Crystal Quintero M.D. [address] [place] [phone] 08/02/2023 8:50 AM PAYLOADER MACHINE OPERATOR Appointment Department of Laboratory Medicine in [address] [phone] Stefan Salomon M.D. [address] [place] [phone] 08/02/2023 9:30 AM PAYLOADER MACHINE OPERATOR Anticoagulation Visit Department of Anticoagulation in [place], [place] [address] [place] [phone] Stefan Salomon M.D. [address] [place] [phone] documented as of this encounter Visit Diagnoses Diagnosis Insufficiency Venous- Primary Chronic Pain Syndrome Pain Limb Generalized Pain Leg Bilateral Pseudogout documented in this encounter Additional Health Concerns Assessment Noted Time PHQ-9 Depression Total Score: 0 07/09/19 23 8:29 AM PAYLOADER MACHINE OPERATOR documented as of this encounter Care Teams Chrome Worker Relationship Specialty Start Date End Date Stefan Salomon M.D. [address] [place] [phone] PCP - General Family Medicine 07/09/22 Anticoagulation Team 07/09/22 documented as of this encounter
--- OUTSIDE RECORDS SUMMARY | 2023-07-23 08:13 | XMS_ITS | Encounter Summary ---
Author Name Unknown Organization [facility] Address [address] [place] [address] Care Team Providers Care Business Process Expert Name Role Phone Stefan Salomon M.D. Primary Care Provider [phone] Reason for Visit * Reason Comments Med Refill Encounter Details Date Type Department Care Team (Late st Contact Info) Description 01/30/2023 Refill Department of Family Medicine, [facility] [place] [facility], in [address] [phone] Stefan Salomon M.D. [address] [place] [phone] Med Refill Social History Tobacco Use Types [...] week 07/09/2022 How often do you attend baptism or scientologist serv ices? Never 07/09/2022 Do you belong to any clubs o r organizations such as baptism groups, unions, fraternal or athletic groups, or [...] file Gender Identity Male 07/02/2017 9:12 AM WATER SYSTEMS DESIGNER Sexual Orientation Straight 07/02/2017 9: 12 AM WATER SYSTEMS DESIGNER documented as of this encounter Miscellaneous Notes [...] (Latest Contact Info) Description 07/25/2023 3:40 PM WATER SYSTEMS DESIGNER Office Visit Department of Dermatology in [place], [place] [address] [place] [phone] Crystal Quintero M.D. [address] [place] [phone] 08/02/2023 8:50 AM WATER SYSTEMS DESIGNER Appointment Department of Laboratory Medicine in [address] [phone] Stefan Salomon M.D. [address] [place] [phone] 08/02/2023 9:30 AM WATER SYSTEMS DESIGNER Anticoagulation Visit Department of Anticoagulation in [place], [place] [address] [place] [address] Stefan Salomon M.D. [address] [place] [phone] documented as of this encounter Visit Diagnoses Diagnosis Chronic Pain Syndrome Degeneration Disc Cervical Polyarthralgia documented in this encounter Additional Health Concerns Assessment Noted Time PHQ-9 Depression Total Score: 0 07/09/19 23 8:29 AM WATER SYSTEMS DESIGNER documented as of this encounter Care Teams Business Process Expert Relationship Specialty Start Date End Date Stefan Salomon M.D. [address] [place] [phone] PCP - General Family Medicine 07/09/22 Anticoagulation Team 07/09/22 documented as of this encounter
--- OUTSIDE RECORDS SUMMARY | 2023-07-23 08:13 | XMS_ITS | Encounter Summary ---
Author Name Unknown Organization [facility] Address [address] [place] [address] Care Team Providers Care Food And Beverage Manager Name Role Phone Stefan Salomon M.D. Primary Care Provider [phone] Reason for Referral * Outpatient (Routine) - Closed Specialty Diagnoses / Procedures Referred By Contac t Referred To Contact Anticoagulation Stefan Salomon M.D. [address] [place] [phone] [facility] Referral ID Status Reason Start Date Expiration Date Visits Re quested Visits Authorized [id number] Closed 01/31/2023 01/30/2026 1 1 Reason for Visit * Reason Onset Date Comments Anticoagulation 01/31/2023 Unable to reach Encounter Details Date Type Department Care Team (Latest Contact Info) Description 01/31/2023 Clinical Communication Department of Anticoagulation in [place], [place] [address] [place] [phone] Theresa Storey R.N. [address] [place] [phone] Anticoagulation (Unable to reach ) Social History [...] week 07/09/2022 How often do you attend jew or protestant serv ices? Never 07/09/2022 Do you belong to any clubs o r organizations such as jew groups, unions, fraternal or athletic groups, or [...] Date Recorded PHQ-2 Score 0 07/09/2022 [facility] [place] of Occupat ional Health - Occupational [...] file Gender Identity Male 07/02/2017 9:12 AM CURBSTONE SETTER Sexual Orientation Straight 07/02/2017 9: 12 AM CURBSTONE SETTER documented as of this encounter Miscellaneous Notes [...] (Latest Contact Info) Description 07/25/2023 3:40 PM CURBSTONE SETTER Office Visit Department of Dermatology in [place], [place] [address] [place] [address] Crystal Quintero M.D. [address] [place] [phone] 08/02/2023 8:50 AM CURBSTONE SETTER Appointment Department of Laboratory Medicine in [address] [phone] Stefan Salomon M.D. [address] [place] [phone] 08/02/2023 9:30 AM CURBSTONE SETTER Anticoagulation Visit Department of Anticoagulation in [place], [place] [address] [place] [address] Stefan Salomon M.D. [address] [place] [phone] Scheduled Referrals Name Type Priority Associated Diagnoses Order Schedule Anticoagulation nurse visit (clinic) Outpatient Referral Routine Expected: 02/01/2023, Expires: 05/02/2024 documented as of this encounter Visit Diagnoses Not on filedocumented in this encounter Additional Health Concerns Assessment Noted Time PHQ-9 Depression Total Score: 0 07/09/19 23 8:29 AM CURBSTONE SETTER documented as of this encounter Care Teams Food And Beverage Manager Relationship Specialty Start Date End Date Stefan Salomon M.D. [address] [place] [phone] PCP - General Family Medicine 07/09/22 Anticoagulation Team 07/09/22 documented as of this encounter
--- OUTSIDE RECORDS SUMMARY | 2023-07-23 08:13 | XMS_ITS | Encounter Summary ---
Author Name Unknown Organization [facility] Address [address] [place] [address] Care Team Providers Care Net C Developer Name Role Phone Stefan Salomon M.D. Primary Care Provider [phone] Encounter Details Date Type Department Care Team (Latest Contact Info) Description 02/21/2023 2:30 PM CDT - 02/21/2023 11:59 PM CDT Hospital Encounter Department of Laboratory Medicine in [address] [phone] Stefan Salomon M.D. [address] [place] [phone] Chronic Pain Syndrome; Polyarthralgia; Degeneration Disc Cervical [...] week 07/09/2022 How often do you attend methodist or voodoo serv ices? Never 07/09/2022 Do you belong to any clubs o r organizations such as methodist groups, unions, fraternal or athletic groups, or [...] PHQ-2 Score 0 07/09/2022 [facility] of Occupat ional Health - Occupational [...] file Gender Identity Male 07/02/2017 9:12 AM GOLF CLUB HEAD INSPECTOR Sexual Orientation Straight 07/02/2017 9: 12 AM GOLF CLUB HEAD INSPECTOR documented as of this encounter Medications at [...] (Latest Contact Info) Description 07/25/2023 3:40 PM GOLF CLUB HEAD INSPECTOR Office Visit Department of Dermatology in [place], [place] [address] [place] [address] Crystal Quintero M.D. [address] [place] [phone] 08/02/2023 8:50 AM GOLF CLUB HEAD INSPECTOR Appointment Department of Laboratory Medicine in [address] [phone] Stefan Salomon M.D. [address] [place] [phone] 08/02/2023 9:30 AM GOLF CLUB HEAD INSPECTOR Anticoagulation Visit Department of Anticoagulation in [place], [place] [address] [place] [phone] Stefan Salomon M.D. [address] [place] [address] [phone] documented as of this encounter Procedures Procedure [...] mg/dL 3 8:56 AM CDT [facility] Specific [place] 1.035 02/23/20 2 3 8:56 AM CDT [...] 3 11:35 PM CDT [facility] Comment:Tylenol 3 Niqbbvt-1-iueu-glucuro nide Not Detected Cutoff: 100 ng/mL 3 11:35 PM CDT [facility] Comment:Metabolite of codein e Morphine Not Detected Cutoff: 25 ng/mL 3 11:35 PM CDT [facility] Comment: Kelsey Ornelas, MS Contin; Also a minor metabolite (10%) of codeine and can be seen in low concentrations (<2,000 ng/mL) with poppy seed ingestion. Tnedhqjq-1-eoph-glucur onide Not Detected Cutoff: 100 ng/mL 3 11:35 PM CDT [facility] Comment:Metabolite of morphi ne 6-monoacetylmorphine Not Detected Cutoff: 25 ng/mL 3 11:35 PM CDT [facility] Comment:Metabolite of heroin Hydrocodone Not Detected Cutoff: 25 ng/mL 3 11:35 PM CDT [facility] Comment: Lortab, [place], Vicodin; Also a very minor metabolite of [...] and a minor (<5%) metabolite of morphine. Gedeljcwgfufq-9-cnnq-g lucuronide Not Detected Cutoff: 100 ng/mL 3 [...] Opana; Al so a metabolite of oxycodone. Jpgtraldshi-5-nqka-glu curonide Not Detected Cutoff: 100 ng/mL 3 [...] ng/mL 3 11:35 PM CDT [facility] Comment:Narcan Snuxozct-2-zrxf-glucur onide Not Detected Cutoff: 100 ng/mL 3 [...] PM CDT [facility] Comment:Metabolite of tapent adol Klshpubplj-xtnu-motjvr onide Not Detected Cutoff: 100 ng/mL 3 [...] developed and its performance characteristics determined by [facility] in a manner consistent with CLIA [...] 3 1:34 PM CDT [facility] Comment:Ambien Zolpidem Rtpyfz-1-Vhmqsvkjdy acid Not Detected Cutoff: 10 ng/mL 3 [...] developed and its performance characteristics determined by [facility] in a manner consistent with CLIA [...] 100 ng/mL 3 12:14 PM CDT [facility] 3,2-ownuztbxpidtpk-E-e thylamphetamine (MDEA) Not Detected Cutoff: 100 ng/mL [...] urine, or limitations of testing. 12:14 PM CDT [facility] Comment: ----ADDITIONAL INFORMATION---- This test was developed and its performance characteristics determined by [facility] in a manner consistent with CLIA requirements. This test has not been cleared or approved by the U.S. Food and Drug Administration. Urine (Urine, Midstream) 02/21/2023 2:36 PM CDT 02/21/2023 10:09 PM CDT Stefan Salomon M.D. LAB URINE ORDERABLE S [facility] [address] [place] [address] [facility] [address] [place] [address] [facility] [address] [place] [address] [place] [address] documented in this encounter Visit Diagnoses Diagnosis Chronic Pain Syndrome Polyarthralgia Degeneration Disc Cervical documented in this encounter Additional Health Concerns Assessment Noted Time PHQ-9 Depression Total Score: 0 07/09/19 23 8:29 AM GOLF CLUB HEAD INSPECTOR documented as of this encounter Care Teams Net C Developer Relationship Specialty Start Date End Date Stefan Salomon M.D. [address] [place] [phone] PCP - General Family Medicine 07/09/22 Anticoagulation Team 07/09/22 documented as of this encounter
--- OUTSIDE RECORDS SUMMARY | 2023-07-23 08:13 | XMS_ITS | Encounter Summary ---
Author Name Unknown Organization [facility] Address [address] [place] [address] Care Team Providers Care School Age Teacher Name Role Phone Stefan Salomon M.D. Primary Care Provider [phone] Encounter Details Date Type Department Care Team (Latest Contact Info) Description 03/14/2023 7:47 AM CDT - 03/14/2023 11:59 PM CDT Hospital Encounter Department of Laboratory Medicine in [address] [phone] Stefan Salomon M.D. [address] [place] [phone] Anticoagulant Therapy [Z79.01]; Mutation Factor V Leiden [...] How often do you attend adventism or faith serv ices? Never 07/09/2022 Do you belong [...] Gender Identity Male 07/02/2017 9:12 AM ACID WASHER OPERATOR Sexual Orientation Straight 07/02/2017 9: 12 AM ACID WASHER OPERATOR documented as of this encounter Medications [...] mouth daily. 90 tablet 3 03/16/2022 03/20/2023 losartan (COZAAR) 50 mg tablet Take 1 [...] Contact Info) Description 07/25/2023 3:40 PM ACID WASHER OPERATOR Office Visit Department of Dermatology in [place], [place] [address] [place] [phone] Crystal Quintero M.D. [address] [place] [phone] 08/02/2023 8:50 AM ACID WASHER OPERATOR Appointment Department of Laboratory Medicine in [address] [phone] Stefan Salomon M.D. [address] [place] [phone] 08/02/2023 9:30 AM ACID WASHER OPERATOR Anticoagulation Visit Department of Anticoagulation in [place], [place] [address] [place] [address] Stefan Salomon M.D. [address] [place] [phone] documented as of this encounter Procedures Procedure [...] Salomon M.D. LAB POCT ORDERABLES - DEVICE [facility] [address] [place] [address], [facility] CNFL [facility] in [address] [address] documented in this encounter Visit Diagnoses Diagnosis Anticoagulant Therapy [Z79.01] Mutation Factor V Leiden Heterozygous (HCC) Monitoring For Therapeutic Drug Therapy [Z51.81] Thrombosis Deep Vein Personal History documented in this encounter Additional Health Concerns Assessment Noted Time PHQ-9 Depression Total Score: 0 07/09/19 23 8:29 AM ACID WASHER OPERATOR documented as of this encounter Care Teams School Age Teacher Relationship Specialty Start Date End Date Stefan Salomon M.D. [address] [place] [phone] PCP - General Family Medicine 07/09/22 Anticoagulation Team 07/09/22 documented as of this encounter
--- OUTSIDE RECORDS SUMMARY | 2023-07-23 08:13 | XMS_ITS | Encounter Summary ---
Author Name Unknown Organization [facility] Address [address] [place] [address] Care Team Providers Care Development Assistant Name Role Phone Stefan Salomon M.D. Primary Care Provider [phone] Encounter Details Date Type Department Care Team (Latest Contact Info) Description 01/31/2023 7:00 AM CDT - 01/31/2023 11:59 PM CDT Hospital Encounter Department of Laboratory Medicine in [address] [phone] Stefan Salomon M.D. [address] [place] [phone] Anticoagulant Therapy; Mutation Factor V Leiden Heterozygous [...] week 07/09/2022 How often do you attend christianity or jew serv ices? Never 07/09/2022 Do you belong to any clubs o r organizations such as christianity groups, unions, fraternal or athletic groups, or [...] Answer Date Recorded PHQ-2 Score 0 07/09/2022 [facility] of Occupat ional Health - Occupational Stress [...] file Gender Identity Male 07/02/2017 9:12 AM CLAIMS COLLECTOR Sexual Orientation Straight 07/02/2017 9: 12 AM CLAIMS COLLECTOR documented as of this encounter Medications at [...] (Latest Contact Info) Description 07/25/2023 3:40 PM CLAIMS COLLECTOR Office Visit Department of Dermatology in [place], [place] [address] [place] [phone] Crystal Quintero M.D. [address] [place] [phone] 08/02/2023 8:50 AM CLAIMS COLLECTOR Appointment Department of Laboratory Medicine in [address] [phone] Stefan Salomon M.D. [address] [place] [phone] 08/02/2023 9:30 AM CLAIMS COLLECTOR Anticoagulation Visit Department of Anticoagulation in [place], [place] [address] [place] [address] Stefan Salomon M.D. [address] [place] [phone] documented as of this encounter Procedures Procedure [...] LAB POCT ORDERABLES - DEVICE [facility] [address] [place] [address], [facility] CNFL [facility] in [address] [address] documented in this encounter Visit Diagnoses Diagnosis Anticoagulant Therapy Mutation Factor V Leiden Heterozygous (HCC) Monitoring For Therapeutic Drug Therapy Thrombosis Deep Vein Personal History documented in this encounter Additional Health Concerns Assessment Noted Time PHQ-9 Depression Total Score: 0 07/09/19 23 8:29 AM CLAIMS COLLECTOR documented as of this encounter Care Teams Development Assistant Relationship Specialty Start Date End Date Stefan Salomon M.D. [address] [place] [phone] PCP - General Family Medicine 07/09/22 Anticoagulation Team 07/09/22 documented as of this encounter
--- OUTSIDE RECORDS SUMMARY | 2023-07-23 08:13 | XMS_ITS | Encounter Summary ---
Author Name Unknown Organization [facility] Address [address] [place] [address] Care Team Providers Care Telegraphic Typewriter Repairer Name Role Phone Stefan Salomon M.D. Primary Care Provider [phone] Encounter Details Date Type Department Care Team (Late st Contact Info) Description 01/07/2023 Orders Only Department of Family Medicine, [facility], in [place], [place] [address] [place] [phone] Karsten Collins M.D. [address] [place] [phone] Social History Tobacco Use Types Packs/Day [...] How often do you attend christianity or jewish serv ices? Never 07/09/2022 Do [...] file Gender Identity Male 07/02/2017 9:12 AM TRAFFIC REPORTER Sexual Orientation Straight 07/02/2017 9: 12 AM TRAFFIC REPORTER documented as of this encounter Plan of Treatment Upcoming Encounters Date Type Department Care Team (Latest Contact Info) Description 07/25/2023 3:40 PM TRAFFIC REPORTER Office Visit Department of Dermatology in [place], [place] [address] [place] [address] Crystal Quintero M.D. [address] [place] [address] 08/02/2023 8:50 AM TRAFFIC REPORTER Appointment Department of Laboratory Medicine in [place] [phone] Stefan Salomon M.D. [address] [place] [phone] 08/02/2023 9:30 AM TRAFFIC REPORTER Anticoagulation Visit Department of Anticoagulation in [place] [address] [place] [address] Stefan Salomon M.D. [address] [place], [place] [address] [phone] documented as of this encounter Visit Diagnoses Not on filedocumented in this encounter Additional Health Concerns Assessment Noted Time PHQ-9 Depression Total Score: 0 07/09/19 23 8:29 AM TRAFFIC REPORTER documented as of this encounter Care Teams Telegraphic Typewriter Repairer Relationship Specialty Start Date End Date Stefan Salomon M.D. [address] [place], [place] [address] [place] [phone] PCP - General Family Medicine 07/09/22 Anticoagulation Team 07/09/22 documented as of this encounter
--- OUTSIDE RECORDS SUMMARY | 2023-07-23 08:14 | XMS_ITS | Encounter Summary ---
Author Name Unknown Organization [facility] Address [address] [place] [address] Care Team Providers Care Customer Experience Associate Name Role Phone Stefan Salomon M.D. Primary Care Provider [phone] Encounter Details Date Type Department Care Team (Latest Contact Info) Description 12/14/2022 7:36 AM CDT - 12/14/2022 11:59 PM CDT Hospital Encounter Department of Laboratory Medicine in [address] [phone] Stefan aSlomon M.D. [address] [place] [phone] Anticoagulant Therapy; Mutation Factor V Leiden Heterozygous [...] How often do you attend jew or synagogue serv ices? Never 07/09/2022 Do [...] Answer Date Recorded PHQ-2 Score 0 07/09/2022 [facility] of Occupat ional Health - Occupational Stress [...] file Gender Identity Male 07/02/2017 9:12 AM TITLE CHECKER Sexual Orientation Straight 07/02/2017 9: 12 AM TITLE CHECKER documented as of this encounter Medications at [...] (Latest Contact Info) Description 07/25/2023 3:40 PM TITLE CHECKER Office Visit Department of Dermatology in [place], [place] [address] [place] [address] Crystal Quintero M.D. [address] [place] [address] 08/02/2023 8:50 AM TITLE CHECKER Appointment Department of Laboratory Medicine in [address] [phone] Stefan Salomon M.D. [address] [place] [phone] 08/02/2023 9:30 AM TITLE CHECKER Anticoagulation Visit Department of Anticoagulation in [place], [place] [address] [place] [address] Stefan Salomon M.D. [address] [place] [phone] documented as of this encounter Procedures Procedure [...] POCT ORDERABLES - DEVICE [facility] [address] [place] [phone], [facility] CNFL [facility] in [address] [address] documented in this encounter Visit Diagnoses Diagnosis Anticoagulant Therapy Mutation Factor V Leiden Heterozygous (HCC) Monitoring For Therapeutic Drug Therapy Thrombosis Deep Vein Personal History documented in this encounter Additional Health Concerns Assessment Noted Time PHQ-9 Depression Total Score: 0 07/09/19 23 8:29 AM TITLE CHECKER documented as of this encounter Care Teams Customer Experience Associate Relationship Specialty Start Date End Date Stefan Salomon M.D. NPJud: [id number] [address] [place] [phone] PCP - General Family Medicine 07/09/22 Anticoagulation Team 07/09/22 documented as of this encounter
--- OUTSIDE RECORDS SUMMARY | 2023-07-23 08:14 | XMS_ITS | Encounter Summary ---
Author Name Unknown Organization [facility] Address [address] [place] [address] Care Team Providers Care Travel Rn Name Role Phone Stefan Salomon M.D. Primary Care Provider [phone] Reason for Visit * Reason Comments Med Refill Encounter Details Date Type Department Care Team (Late st Contact Info) Description 2022 Refill Department of Family Medicine, [facility], in [address] [phone] Stefan Salomon M.D. [address] [place] [phone] Med Refill Social History Tobacco Use [...] How often do you attend mandaen or evangelical serv ices? Never 07/09/2022 Do [...] Answer Date Recorded PHQ-2 Score 0 07/09/2022 [facility] of Occupat ional Health - Occupational [...] file Gender Identity Male 07/02/2017 9:12 AM CERTIFIED LOW VISION THERAPIST Sexual Orientation Straight 07/02/2017 9: 12 AM CERTIFIED LOW VISION THERAPIST documented as of this encounter Miscellaneous Notes [...] last reviewed/signed: 03/05/2022 * Telephone Encounter - Krayna Vega - 2022 2:22 PM CDT Nurse review: Unable to forward request to provider; Controlled Substance, CSA Primary Provider: Stefan Salomon M.D. Requested Prescriptions Pending Prescriptions Disp Refills traMADoL (ULTRAM) 50 mg tablet 240 tablet 0 Sig: Take 2 tablets (100 mg total) by mouth every 6 (six) hours as needed for pain Indications: Chronic Pain/Nonacute Pain. Pharmacy (include location): [facility] [address] [place] [address] documented in this encounter Plan of Treatment Upcoming Encounters Date Type Department Care Team (Latest Contact Info) Description 07/25/2023 3:40 PM CERTIFIED LOW VISION THERAPIST Office Visit Department of Dermatology in [place], [place] [address] [place] [address] Crystal Quintero M.D. [address] [place] [phone] 08/02/2023 8:50 AM CERTIFIED LOW VISION THERAPIST Appointment Department of Laboratory Medicine in [address] [phone] Stefan Salomon M.D. [address] [place] [phone] 08/02/2023 9:30 AM CERTIFIED LOW VISION THERAPIST Anticoagulation Visit Department of Anticoagulation in [place], [place] [address] [place] [phone] Stefan Salomon M.D. [address] [place] [phone] documented as of this encounter Visit Diagnoses Diagnosis Chronic Pain Syndrome Degeneration Disc Cervical Polyarthralgia documented in this encounter Additional Health Concerns Assessment Noted Time PHQ-9 Depression Total Score: 0 07/09/19 23 8:29 AM CERTIFIED LOW VISION THERAPIST documented as of this encounter Care Teams Travel Rn Relationship Specialty Start Date End Date Stefan Salomon M.D. [address] [place] [phone] PCP - General Family Medicine 07/09/22 Anticoagulation Team 07/09/22 documented as of this encounter
--- OUTSIDE RECORDS SUMMARY | 2023-07-23 08:14 | XMS_ITS | Encounter Summary ---
Author Name Unknown Organization [facility] Address [address] [place] [address] Care Team Providers Care Skiving Machine Operator Name Role Phone Stefan Salomon M.D. Primary Care Provider [phone] Reason for Visit * Outpatient (Routine) - Canceled Specialty Diagnoses / Procedures Referred By Contdayana t Referred To Contact Anticoagulation Yue Alonso M.D. [address] [place] [address] [facility] Region Referral ID Status Reason Start Date Expiration Date V isits Requested Visits Authorized [id number] Canceled 11/14/2021 11/14/[phone] Encounter Details Date Type Department Care Team (Latest Contact Info) Description 12/11/2022 2:30 PM CDT Anticoagulation Visit Department of Anticoagulation in [place], [place] [address] [place] [address] Yue Alonso M.D. [address] [place] [address] Anticoagulant Therapy (Primary Dx); Mutation [...] How often do you attend yarsanism or anabaptist serv ices? Never 07/09/2022 Do you belong [...] Answer Date Recorded PHQ-2 Score 0 07/09/2022 [facility] [place] of Occupat ional Health - Occupational Stress [...] Gender Identity Male 07/02/2017 9:12 AM DIRECTOR ORACLE Sexual Orientation Straight 07/02/2017 9: 12 AM DIRECTOR ORACLE documented as of this encounter Progress Notes [...] Contact Info) Description 07/25/2023 3:40 PM DIRECTOR ORACLE Office Visit Department of Dermatology in [place], [place] [address] [place] [phone] Crystal Quintero M.D. [address] [place] [phone] 08/02/2023 8:50 AM DIRECTOR ORACLE Appointment Department of Laboratory Medicine in [address] [phone] Stefan Salomon M.D. [address] [place] [phone] 08/02/2023 9:30 AM DIRECTOR ORACLE Anticoagulation Visit Department of Anticoagulation in [place], [place] [address] [place] [address] Stefan Salomon M.D. [address] [place] [phone] documented as of this encounter Results * INR Reflex, POCT, Blood (12/14/2022 7:47 AM CDT) INR Reflex, POCT, B 1.8 12/14/2022 7:45 AM CDT [facility] Comment: ----ADDITIONAL INFORMATION---- Standard intensity warfarin therapeutic range: 2.0 to 3.0 ?? High intensity warfarin therapeutic range: 2.5 to 3.5 Blood (Blood, Capillary) 12/14/2022 7:47 AM CDT 12/14/2022 7:45 AM CDT Stefan Salomon M.D. LAB POCT ORDERABLES - DEVICE [facility] [address] [place] [address], [place] CNFL [facility] in [address] [address] documented in this encounter Visit Diagnoses Diagnosis Anticoagulant Therapy- Primary Mutation Factor V Leiden Heterozygous (HCC) Monitoring For Therapeutic Drug Therapy Thrombosis Deep Vein Personal History documented in this encounter Additional Health Concerns Assessment Noted Time PHQ-9 Depression Total Score: 0 07/09/19 23 8:29 AM DIRECTOR ORACLE documented as of this encounter Care Teams Skiving Machine Operator Relationship Specialty Start Date End Date Stefan Salomon M.D. [address] [phone] PCP - General Family Medicine 07/09/22 Anticoagulation Team 07/09/22 documented as of this encounter
--- OUTSIDE RECORDS SUMMARY | 2023-07-23 08:14 | XMS_ITS | Encounter Summary ---
Author Name Unknown Organization [facility] Address [address] [place] [address] Care Team Providers Care Die Cutter Apprentice Name Role Phone Stefan Salomon M.D. Primary Care Provider [phone] Reason for Visit * Reason Comments Med Refill Encounter Details Date Type Department Care Team (Late st Contact Info) Description 01/01/2023 Refill Department of Family Medicine, [facility], in [address] [phone] Stefan Salomon M.D. [address] [place] [phone] Med Refill Social History Tobacco Use Types [...] How often do you attend baptism or muslim serv ices? Never 07/09/2022 Do [...] PHQ-2 Score 0 07/09/2022 [facility] [place] [facility] of Occupat ional Health - [...] file Gender Identity Male 07/02/2017 9:12 AM TEACHING PASTOR Sexual Orientation Straight 07/02/2017 9: 12 AM TEACHING PASTOR documented as of this encounter Miscellaneous Notes [...] (Latest Contact Info) Description 07/25/2023 3:40 PM TEACHING PASTOR Office Visit Department of Dermatology in [place], [place] [address] [place] [phone] Crystal Quintero M.D. [address] [place] [phone] 08/02/2023 8:50 AM TEACHING PASTOR Appointment Department of Laboratory Medicine in [address] [phone] Stefan Salomon M.D. [address] [place] [phone] 08/02/2023 9:30 AM TEACHING PASTOR Anticoagulation Visit Department of Anticoagulation in [place], [place] [address] [place] [phone] Stefan Salomon M.D. [address] [place] [phone] documented as of this encounter Visit Diagnoses Diagnosis Chronic Pain Syndrome Degeneration Disc Cervical Polyarthralgia documented in this encounter Additional Health Concerns Assessment Noted Time PHQ-9 Depression Total Score: 0 07/09/19 8:29 AM TEACHING PASTOR documented as of this encounter Care Teams Die Cutter Apprentice Relationship Specialty Start Date End Date Stefan Salomon M.D. [address] [place] [phone] PCP - General Family Medicine 07/09/22 Anticoagulation Team 07/09/22 documented as of this encounter
--- OUTSIDE RECORDS SUMMARY | 2023-07-23 08:14 | XMS_ITS | Encounter Summary ---
Author Name Unknown Organization [facility] Address [address] [place] [address] Care Team Providers Care Pc Network Technician Name Role Phone Stefan Salomon M.D. Primary Care Provider [phone] Reason for Visit * Reason Onset Date Comments Anticoagulation 11/15/2022 CCM Enrollment Encounter Details Date Type Department Care Team (Latest Contact Info) Description 11/15/2022 Clinical Communication Department of Anticoagulation in [place], [place] [address] [place] [address] Candace Lee, RCotyNCoty Anticoagulation (CCM Enrollment) Social [...] How often do you attend yarsani or nondenominational serv ices? Never 07/09/2022 Do [...] Answer Date Recorded PHQ-2 Score 0 07/09/2022 [facility] of Occupat ional [facility] - Occupational Stress Questionnaire Answer Date [...] Gender Identity Male 07/02/2017 9:12 AM MANAGER COLLEGE Sexual Orientation Straight 07/02/2017 9: 12 AM MANAGER COLLEGE documented as of this encounter Miscellaneous Notes [...] questions on Chronic Care Management coverage or [facility] Patient Account Servicesif they have any questions about their bill. documented in this encounter Plan of Treatment Upcoming Encounters Date Type Department Care Team (Latest Contact Info) Description 07/25/2023 3:40 PM MANAGER COLLEGE Office Visit Department of Dermatology in [place], [place] [address] [place] [address] Crystal Quintero M.D. [address] [place] [phone] 08/02/2023 8:50 AM MANAGER COLLEGE Appointment Department of Laboratory Medicine in [address] [phone] Stefan Salomon M.D. [address] [place] [phone] 08/02/2023 9:30 AM MANAGER COLLEGE Anticoagulation Visit Department of Anticoagulation in [place], [place] [address] [place] [address] Stefan Salomon M.D. [address] [place] [phone] documented as of this encounter Visit Diagnoses Diagnosis Anticoagulant Therapy- Primary Mutation Factor V Leiden Heterozygous (HCC) Monitoring For Therapeutic Drug Therapy Thrombosis Deep Vein Personal History documented in this encounter Additional Health Concerns Assessment Noted Time PHQ-9 Depression Total Score: 0 07/09/19 8:29 AM MANAGER COLLEGE documented as of this encounter Care Teams Pc Network Technician Relationship Specialty Start Date End Date Stefan Salomon M.D. [address] [phone] PCP - General Family Medicine 07/09/22 Anticoagulation Team 07/09/22 documented as of this encounter
--- OUTSIDE RECORDS SUMMARY | 2023-07-23 08:14 | XMS_ITS | Encounter Summary ---
Author Name Unknown Organization [facility] Address [address] [place] [address] Care Team Providers Care Liaison Officer Name Role Phone Stefan Salomon M.D. Primary Care Provider [phone] Reason for Visit * Outpatient (Routine) - Canceled Specialty Diagnoses / Procedures Referred By Contdayana t Referred To Contact Anticoagulation Yue Alonso M.D. [address] [place] [address] [facility] Region Referral ID Status Reason Start Date Expiration Date V isits Requested Visits Authorized [id number] Canceled 11/14/2021 11/14/[phone] Encounter Details Date Type Department Care Team (Latest Contact Info) Description 01/04/2023 9:20 AM CDT Anticoagulation Visit Department of Anticoagulation in [place], [place] [address] [place] [address] Yue Alonso M.D. [address] [place] [phone] Anticoagulant Therapy (Primary Dx); Mutation [...] How often do you attend yarsani or judaism serv ices? Never 07/09/2022 Do [...] Answer Date Recorded PHQ-2 Score 0 07/09/2022 [facility] [place] of Occupat ional Health - Occupational Stress [...] file Gender Identity Male 07/02/2017 9:12 AM CREATIVE DESIGNER Sexual Orientation Straight 07/02/2017 9: 12 AM CREATIVE DESIGNER documented as of this encounter Patient Instructions [...] please call Primary Care Anticoagulation Program at [phone] from 7:30 am to 4:30 pm. Saturday-Saturday [...] if you start any herbal or other [id number] product (check with your doctor, a nurse, [...] (Latest Contact Info) Description 07/25/2023 3:40 PM CREATIVE DESIGNER Office Visit Department of Dermatology in [place], [place] [address] [place] [phone] Crystal Quintero M.D. [address] [place] [phone] 08/02/2023 8:50 AM CREATIVE DESIGNER Appointment Department of Laboratory Medicine in [address] [phone] Stefan Salomon M.D. [address] [place] [phone] 08/02/2023 9:30 AM CREATIVE DESIGNER Anticoagulation Visit Department of Anticoagulation in [place], [place] [address] [place] [address] Stefan Salomon M.D. [address] [place] [phone] documented as of this encounter Results * INR Reflex, POCT, Blood (01/31/2023 7:11 AM CDT) [facility] Signature INR Reflex, POCT, B 2.8 01/31/2023 7:11 AM CDT [facility] Comment: ----ADDITIONAL INFORMATION---- Standard intensity warfarin therapeutic range: 2.0 to 3.0 ?? High intensity warfarin therapeutic range: 2.5 to 3.5 Blood (Blood, Capillary) 01/31/2023 7:11 AM CDT 01/31/2023 7:11 AM CDT Stefan Salomon M.D. LAB POCT ORDERABLES - DEVICE Performing Organization Address City/State/[facility] Co de Phone Number [facility] [address] [place] [address], [facility] in [address] [address] documented in this encounter Visit Diagnoses Diagnosis Anticoagulant Therapy- Primary Mutation Factor V Leiden Heterozygous (HCC) Monitoring For Therapeutic Drug Therapy Thrombosis Deep Vein Personal History documented in this encounter Additional Health Concerns Assessment Noted Time PHQ-9 Depression Total Score: 0 07/09/19 23 8:29 AM CREATIVE DESIGNER documented as of this encounter Care Teams Liaison Officer Relationship Specialty Start Date End Date Stefan Salomon M.D. [address] [phone] PCP - General Family Medicine 07/09/22 Anticoagulation Team 07/09/22 documented as of this encounter
--- OUTSIDE RECORDS SUMMARY | 2023-07-23 08:14 | XMS_ITS | Encounter Summary ---
Author Name Unknown Organization [facility] Address [address] [place] [address] Care Team Providers Care Assembler Body Name Role Phone Stefan Salomon M.D. Primary Care Provider [phone] Encounter Details Date Type Department Care Team (Latest Contact Info) Description 11/30/2022 7:50 AM CDT - 11/30/2022 11:59 PM CDT Hospital Encounter Department of Laboratory Medicine in [address] [phone] Stefan Salomon M.D. [address] [place] [phone] Anticoagulant Therapy; Mutation Factor V Leiden Heterozygous [...] How often do you attend buddhism or religion serv ices? Never 07/09/2022 Do [...] Answer Date Recorded PHQ-2 Score 0 07/09/2022 [facility] of Occupat ional Health - [...] file Gender Identity Male 07/02/2017 9:12 AM BANKING ASSISTANT Sexual Orientation Straight 07/02/2017 9: 12 AM BANKING ASSISTANT documented as of this encounter Medications at [...] (Latest Contact Info) Description 07/25/2023 3:40 PM BANKING ASSISTANT Office Visit Department of Dermatology in [place], [place] [address] [place] [address] Crystal Quintero M.D. [address] [place] [address] 08/02/2023 8:50 AM BANKING ASSISTANT Appointment Department of Laboratory Medicine in [address] [phone] Stefan Salomon M.D. [address] [place] [phone] 08/02/2023 9:30 AM BANKING ASSISTANT Anticoagulation Visit Department of Anticoagulation in [place], [place] [address] [place] [address] Stefan Salomon M.D. [address] [place] [address] [phone] documented as of this encounter Procedures Procedure [...] POCT ORDERABLES - DEVICE [facility] [address] [place] [address], [facility] CNFL [facility] in [address] [address] documented in this encounter Visit Diagnoses Diagnosis Anticoagulant Therapy Mutation Factor V Leiden Heterozygous (HCC) Monitoring For Therapeutic Drug Therapy Thrombosis Deep Vein Personal History documented in this encounter Additional Health Concerns Assessment Noted Time PHQ-9 Depression Total Score: 0 07/09/19 23 8:29 AM BANKING ASSISTANT documented as of this encounter Care Teams Assembler Body Relationship Specialty Start Date End Date Stefan Salomon M.D. NPJud: [id number] [address] [place] [phone] PCP - General Family Medicine 07/09/22 Anticoagulation Team 07/09/22 documented as of this encounter
--- OUTSIDE RECORDS SUMMARY | 2023-07-23 08:14 | XMS_ITS | Encounter Summary ---
Author Name Unknown Organization [facility] Address [address] [place] [address] Care Team Providers Care Sales Estimator Name Role Phone Stefan Salomon M.D. Primary Care Provider [phone] Reason for Visit * Outpatient (Routine) - Canceled Specialty Diagnoses / Procedures Referred By Contdayana t Referred To Contact Anticoagulation Yue Alonso M.D. [address] [place] [address] [facility] Region Referral ID Status Reason Start Date Expiration Date V isits Requested Visits Authorized [id number] Canceled 11/14/2021 11/14/[phone] Encounter Details Date Type Department Care Team (Latest Contact Info) Description 12/21/2022 2:10 PM CDT Anticoagulation Visit Department of Anticoagulation in [place], [place] [address] [place] [address] Yue Alonso M.D. [address] [place] [address] Anticoagulant Therapy (Primary Dx); Mutation [...] How often do you attend tenriism or shinto serv ices? Never 07/09/2022 Do [...] Answer Date Recorded PHQ-2 Score 0 07/09/2022 [facility] [place] of Occupat ional Health - Occupational Stress [...] file Gender Identity Male 07/02/2017 9:12 AM BACK END DEVELOPER Sexual Orientation Straight 07/02/2017 9: 12 AM BACK END DEVELOPER documented as of this encounter Patient Instructions [...] please call Primary Care Anticoagulation Program at [phone] from 7:30 am to 4:30 pm. Saturday-Saturday [...] if you start any herbal or other [id number]-[id number] product (check with your doctor, a nurse, [...] (Latest Contact Info) Description 07/25/2023 3:40 PM BACK END DEVELOPER Office Visit Department of Dermatology in [place], [place] [address] [place] [address] Crystal Quintero M.D. [address] [place] [phone] 08/02/2023 8:50 AM BACK END DEVELOPER Appointment Department of Laboratory Medicine in [address] [phone] Stefan Salomon M.D. [address] [place] [phone] 08/02/2023 9:30 AM BACK END DEVELOPER Anticoagulation Visit Department of Anticoagulation in [place], [place] [address] [place] [address] Stefan Salomon M.D. [address] [place] [phone] documented as of this encounter Results * INR Reflex, POCT, Blood (01/04/2023 8:08 AM CDT) INR Reflex, POCT, B 3.2 01/04/2023 8:07 AM CDT [facility] Comment: ----ADDITIONAL INFORMATION---- Standard intensity warfarin therapeutic range: 2.0 to 3.0 ?? High intensity warfarin therapeutic range: 2.5 to 3.5 Blood (Blood, Capillary) 01/04/2023 8:08 AM CDT 01/04/2023 8:07 AM CDT Stefan Salomon M.D. LAB POCT ORDERABLES - DEVICE [facility] [address] [place] [address], [place] [facility] [address] [address] documented in this encounter Visit Diagnoses Diagnosis Anticoagulant Therapy- Primary Mutation Factor V Leiden Heterozygous (HCC) Monitoring For Therapeutic Drug Therapy Thrombosis Deep Vein Personal History documented in this encounter Additional Health Concerns Assessment Noted Time PHQ-9 Depression Total Score: 0 07/09/19 8:29 AM BACK END DEVELOPER documented as of this encounter Care Teams Sales Estimator Relationship Specialty Start Date End Date Stefna Salomon M.D. [address] [phone] PCP - General Family Medicine 07/09/22 Anticoagulation Team 07/09/22 documented as of this encounter
--- OUTSIDE RECORDS SUMMARY | 2023-07-23 08:14 | XMS_ITS | Encounter Summary ---
Author Name Unknown Organization [facility] Address [address] [place] [address] Care Team Providers Care Molding Sander Name Role Phone Stefan Salomon M.D. Primary Care Provider [phone] Encounter Details Date Type Department Care Team (Latest Contact Info) Description 12/21/2022 1:29 PM CDT - 12/21/2022 11:59 PM CDT Hospital Encounter Department of Laboratory Medicine in [address] [phone] Stefan Salomon M.D. [address] [place] [address] [phone] Anticoagulant Therapy; Mutation Factor V Leiden Heterozygous [...] How often do you attend judaism or baptism serv ices? Never 07/09/2022 Do [...] Answer Date Recorded PHQ-2 Score 0 07/09/2022 [facility] of Occupat ional Health - Occupational [...] file Gender Identity Male 07/02/2017 9:12 AM BLUE LEATHER SORTER Sexual Orientation Straight 07/02/2017 9: 12 AM BLUE LEATHER SORTER documented as of this encounter Medications [...] (Latest Contact Info) Description 07/25/2023 3:40 PM BLUE LEATHER SORTER Office Visit Department of Dermatology in [place], [place] [address] [place] [address] Crystal Quintero M.D. [address] [place] [address] 08/02/2023 8:50 AM BLUE LEATHER SORTER Appointment Department of Laboratory Medicine in [address] [phone] Stefan Salomon M.D. [address] [place] [phone] 08/02/2023 9:30 AM BLUE LEATHER SORTER Anticoagulation Visit Department of Anticoagulation in [place], [place] [address] [place] [address] Stefan Salomon M.D. [address] [place] [phone] documented as of this encounter Procedures Procedure [...] ORDERABLES - DEVICE [facility] [address] [place] [address], [facility] CNFL [facility] in [address] [address] documented in this encounter Visit Diagnoses Diagnosis Anticoagulant Therapy Mutation Factor V Leiden Heterozygous (HCC) Monitoring For Therapeutic Drug Therapy Thrombosis Deep Vein Personal History documented in this encounter Additional Health Concerns Assessment Noted Time PHQ-9 Depression Total Score: 0 07/09/19 23 8:29 AM BLUE LEATHER SORTER documented as of this encounter Care Teams Molding Sander Relationship Specialty Start Date End Date Stefan Salomon M.D. NPuJd: [id number] [address] [place] [phone] PCP - General Family Medicine 07/09/22 Anticoagulation Team 07/09/22 documented as of this encounter
--- OUTSIDE RECORDS SUMMARY | 2023-07-23 08:14 | XMS_ITS | Encounter Summary ---
Author Name Unknown Organization [facility] Address [address] [place] [address] Care Team Providers Care Ironworker Apprentice Shop Name Role Phone Stefan Salomon M.D. Primary Care Provider [phone] Reason for Visit * Outpatient (Routine) - Canceled Specialty Diagnoses / Procedures Referred By Contdayana t Referred To Contact Anticoagulation Yue Alonso M.D. [address] [place] [address] [facility] Region Referral ID Status Reason Start Date Expiration Date V isits Requested Visits Authorized [id number] Canceled 11/14/2021 11/14/[phone] Encounter Details Date Type Department Care Team (Latest Contact Info) Description 12/14/2022 9:40 AM CDT Anticoagulation Visit Department of Anticoagulation in [place], [place] [address] [place] [address] Yue Alonso M.D. [address] [place] [address] Anticoagulant Therapy (Primary Dx); Mutation [...] How often do you attend zoroastrian or hoahaoism serv ices? Never 07/09/2022 Do [...] Date Recorded PHQ-2 Score 0 07/09/2022 [facility] [place] of Occupat ional Health - Occupational Stress [...] file Gender Identity Male 07/02/2017 9:12 AM CORN SHELLER Sexual Orientation Straight 07/02/2017 9: 12 AM CORN SHELLER documented as of this encounter Patient Instructions [...] please call Primary Care Anticoagulation Program at [phone] from 7:30 am to 4:30 pm. Saturday-Saturday [...] if you start any herbal or other gchm-kvk-xbpxdbi product (check with your doctor, a nurse, [...] indicated above stating consult required. Consulted Anticoagulation [facility] for plan. Currently bridging: no. INR is subtherapeutic, reviewed need for bridging with provider. Bridging ordered? Yes, but patient declined due to cost. Additional dosing or follow-up information: Provider consulted: Essie Harris- Anticoagulation [facility] Pt is on injectable anticoagulant: No. [...] (Latest Contact Info) Description 07/25/2023 3:40 PM CORN SHELLER Office Visit Department of Dermatology in [place], [place] [address] [place] [phone] Crystal Quintero M.D. [address] [place] [address] 08/02/2023 8:50 AM CORN SHELLER Appointment Department of Laboratory Medicine in [address] [phone] Stefan Salomon M.D. [address] [place] [phone] 08/02/2023 9:30 AM CORN SHELLER Anticoagulation Visit Department of Anticoagulation in [place], [place] [address] [place] [address] Stefan Salomon M.D. [address] [place] [phone] documented as of this encounter Results * INR Reflex, POCT, Blood (12/21/2022 1:33 PM CDT) INR Reflex, POCT, B 2.5 12/21/2022 1:37 PM CDT [facility] Comment: ----ADDITIONAL INFORMATION---- Standard intensity warfarin therapeutic range: 2.0 to 3.0 ?? High intensity warfarin therapeutic range: 2.5 to 3.5 Blood (Blood, Capillary) 12/21/2022 1:33 PM CDT 12/21/2022 1:33 PM CDT Stefan Salomon M.D. LAB POCT ORDERABLES - DEVICE [facility] [address] [place] [address], [facility] CNFL [facility] in [address] [address] documented in this encounter Visit Diagnoses Diagnosis Anticoagulant Therapy- Primary Mutation Factor V Leiden Heterozygous (HCC) Monitoring For Therapeutic Drug Therapy Thrombosis Deep Vein Personal History documented in this encounter Additional Health Concerns Assessment Noted Time PHQ-9 Depression Total Score: 0 07/09/19 23 8:29 AM CORN SHELLER documented as of this encounter Care Teams Ironworker Apprentice Shop Relationship Specialty Start Date End Date Stefan Salomon M.D. [address] [place] [phone] PCP - General Family Medicine 07/09/22 Anticoagulation Team 07/09/22 documented as of this encounter
--- OUTSIDE RECORDS SUMMARY | 2023-07-23 08:14 | XMS_ITS | Encounter Summary ---
Author Name Unknown Organization [facility] Address [address] [place] [address] Care Team Providers Care Brush Finisher Name Role Phone Stefan Salomon M.D. Primary Care Provider [phone] Encounter Details Date Type Department Care Team (Latest Contact Info) Description 12/11/2022 11:11 AM CDT - 12/11/2022 11:59 PM CDT Hospital Encounter Department of Laboratory Medicine in [address] [phone] Stefan Salomon M.D. [address] [place] [phone] Anticoagulant Therapy; Mutation Factor V Leiden Heterozygous [...] How often do you attend scientology or scientologist serv ices? Never 07/09/2022 Do [...] 07/09/2022 [facility] of Occupat ional Health - [...] Gender Identity Male 07/02/2017 9:12 AM SUPERVISOR AIRCRAFT CLEANING Sexual Orientation Straight 07/02/2017 9: 12 AM SUPERVISOR AIRCRAFT CLEANING documented as of this encounter Medications at [...] Contact Info) Description 07/25/2023 3:40 PM SUPERVISOR AIRCRAFT CLEANING Office Visit Department of Dermatology in [place], [place] [address] [place] [address] Crystal Quintero M.D. [address] [place] [address] 08/02/2023 8:50 AM SUPERVISOR AIRCRAFT CLEANING Appointment Department of Laboratory Medicine in [address] [phone] Stefan Salomon M.D. [address] [place] [phone] 08/02/2023 9:30 AM SUPERVISOR AIRCRAFT CLEANING Anticoagulation Visit Department of Anticoagulation in [place], [place] [address] [place] [address] Stefan Salomon M.D. [address] [place] [phone] documented as of this encounter Procedures Procedure [...] LAB POCT ORDERABLES - DEVICE [facility] [address] [place] [id number], [facility] CNFL [facility] in [address] [address] documented in this encounter Visit Diagnoses Diagnosis Anticoagulant Therapy Mutation Factor V Leiden Heterozygous (HCC) Monitoring For Therapeutic Drug Therapy Thrombosis Deep Vein Personal History documented in this encounter Additional Health Concerns Assessment Noted Time PHQ-9 Depression Total Score: 0 07/09/19 23 8:29 AM SUPERVISOR AIRCRAFT CLEANING documented as of this encounter Care Teams Brush Finisher Relationship Specialty Start Date End Date Stefan Salomon M.D. NPJud: [id number] [address] [place] [phone] PCP - General Family Medicine 07/09/22 Anticoagulation Team 07/09/22 documented as of this encounter
--- OUTSIDE RECORDS SUMMARY | 2023-07-23 08:14 | XMS_ITS | Encounter Summary ---
Author Name Unknown Organization [facility] Address [address] [place] [address] Care Team Providers Care Right Of Way Cutter Name Role Phone Stefan Salomon M.D. Primary Care Provider [phone] Reason for Visit * Outpatient (Routine) - Canceled Specialty Diagnoses / Procedures Referred By Contdayana t Referred To Contact Anticoagulation Yue Alonso M.D. [address] [place] [address] [facility] Region Referral ID Status Reason Start Date Expiration Date V isits Requested Visits Authorized [id number] Canceled 11/14/2021 11/14/[phone] Encounter Details Date Type Department Care Team (Latest Contact Info) Description 11/30/2022 10:00 AM CDT Anticoagulation Visit Department of Anticoagulation in [place], [place] [address] [place] [address] Yue Alonso M.D. [address] [place] [address] Anticoagulant Therapy (Primary Dx); Mutation [...] How often do you attend scientology or congregation serv ices? Never 07/09/2022 Do [...] Answer Date Recorded PHQ-2 Score 0 07/09/2022 [facility] [place] of Occupat ional Health - Occupational Stress [...] Gender Identity Male 07/02/2017 9:12 AM ELECTRONICS MECHANIC Sexual Orientation Straight 07/02/2017 9: 12 AM ELECTRONICS MECHANIC documented as of this encounter Patient Instructions [...] please call Primary Care Anticoagulation Program at [phone] from 7:30 am to 4:30 pm. Saturday-Saturday [...] if you start any herbal or other qvwr-dfz-vvlkwxb product (check with your doctor, a nurse, [...] (Latest Contact Info) Description 07/25/2023 3:40 PM ELECTRONICS MECHANIC Office Visit Department of Dermatology in [place], [place] [address] [place] [address] Crystal Quintero M.D. [address] [place] [address] 08/02/2023 8:50 AM ELECTRONICS MECHANIC Appointment Department of Laboratory Medicine in [address] [phone] Stefan Salomon M.D. [address] [place] [phone] 08/02/2023 9:30 AM ELECTRONICS MECHANIC Anticoagulation Visit Department of Anticoagulation in [place], [place] [address] [place] [address] Stefan Salomon M.D. [address] [place] [phone] documented as of this encounter Results * [...] POCT ORDERABLES - DEVICE [facility] [address] [place] [address], [facility] in [address] [address] documented in this encounter Visit Diagnoses Diagnosis Anticoagulant Therapy- Primary Mutation Factor V Leiden Heterozygous (HCC) Monitoring For Therapeutic Drug Therapy Thrombosis Deep Vein Personal History documented in this encounter Additional Health Concerns Assessment Noted Time PHQ-9 Depression Total Score: 0 07/09/19 23 8:29 AM ELECTRONICS MECHANIC documented as of this encounter Care Teams Right Of Way Cutter Relationship Specialty Start Date End Date Stefan Salomon M.D. NPJud: [id number] [address] [place] [phone] PCP - General Family Medicine 07/09/22 Anticoagulation Team 07/09/22 documented as of this encounter
--- OUTSIDE RECORDS SUMMARY | 2023-07-23 08:15 | XMS_ITS | Encounter Summary ---
Author Name Unknown Organization [facility] Address [address] [place] [address] Care Team Providers Care Shade Cloth Finisher Name Role Phone Stefan Salomon M.D. Primary Care Provider [phone] Reason for Visit * Reason Comments Med Refill Encounter Details Date Type Department Care Team (Late st Contact Info) Description 10/17/2022 Refill Department of Family Medicine, [facility], in [place], [place] [address] [place] [phone] Yue Alonso M.D. [address] [place] [phone] Med Refill Social History Tobacco Use Types [...] week 07/09/2022 How often do you attend baptist or buddhist serv ices? Never 07/09/2022 Do you belong to any clubs o r organizations such as baptist groups, unions, fraternal or athletic groups, or [...] file Gender Identity Male 07/02/2017 9:12 AM SALES TRAINER Sexual Orientation Straight 07/02/2017 9: 12 AM SALES TRAINER documented as of this encounter Miscellaneous [...] (Latest Contact Info) Description 07/25/2023 3:40 PM SALES TRAINER Office Visit Department of Dermatology in [place], [place] [address] [place] [address] Crystal Quintero M.D. [address] [place] [address] 08/02/2023 8:50 AM SALES TRAINER Appointment Department of Laboratory Medicine in [address] [phone] Stefan Salomon M.D. [address] [place] [phone] 08/02/2023 9:30 AM SALES TRAINER Anticoagulation Visit Department of Anticoagulation in [place], [place] [address] [place] [address] Stefan Salomon M.D. [address] [place] [phone] documented as of this encounter Visit Diagnoses Diagnosis Anticoagulant Therapy- Primary Mutation Factor V Leiden Heterozygous (HCC) Monitoring For Therapeutic Drug Therapy Thrombosis Deep Vein Personal History documented in this encounter Additional Health Concerns Assessment Noted Time PHQ-9 Depression Total Score: 0 07/09/19 23 8:29 AM SALES TRAINER documented as of this encounter Care Teams [place] Cloth Finisher Relationship Specialty Start Date End Date Stefan Salomon M.D. [address] [place] [phone] PCP - General Family Medicine 07/09/22 Anticoagulation Team 07/09/22 documented as of this encounter
--- OUTSIDE RECORDS SUMMARY | 2023-07-23 08:15 | XMS_ITS | Encounter Summary ---
Author Name Unknown Organization [facility] Address [address] [place] [address] Care Team Providers Care Unit Aide Name Role Phone Stefan Salomon M.D. Primary Care Provider [phone] Encounter Details Date Type Department Care Team (Latest Contact Info) Description 10/26/2022 7:55 AM CDT - 10/26/2022 11:59 PM CDT Hospital Encounter Department of Laboratory Medicine in [address] [phone] Stefan Salomon M.D. [address] [place] [phone] Anticoagulant Therapy; Mutation Factor V Leiden Heterozygous [...] week 07/09/2022 How often do you attend synagogue or confucianism serv ices? Never 07/09/2022 Do you belong to any clubs o r organizations such as synagogue groups, unions, fraternal or athletic groups, or [...] file Gender Identity Male 07/02/2017 9:12 AM OUTBOARD SYSTEM OPERATOR Sexual Orientation Straight 07/02/2017 9: 12 AM OUTBOARD SYSTEM OPERATOR documented as of this encounter Medications [...] (Latest Contact Info) Description 07/25/2023 3:40 PM OUTBOARD SYSTEM OPERATOR Office Visit Department of Dermatology in [place], [place] [address] [place] [address] Crystal Quintero M.D. [address] [place] [address] 08/02/2023 8:50 AM OUTBOARD SYSTEM OPERATOR Appointment Department of Laboratory Medicine in [address] [phone] Stefan Salomon M.D. [address] [place] [phone] 08/02/2023 9:30 AM OUTBOARD SYSTEM OPERATOR Anticoagulation Visit Department of Anticoagulation in [place], [place] [address] [place] [address] Stefan Salomon M.D. [address] [place] [phone] documented as of this encounter Procedures Procedure [...] POCT ORDERABLES - DEVICE Performing Organization Address [facility] Co de Phone Number [facility] [address] [place] [address], [address] [address] * INR Reflex, POCT, B (10/26/2022 7:58 AM CDT) INR Reflex, POCT, B Collected DEFAULT 10/26/2022 7:58 AM CDT [facility] Blood (Blood, Capillary) 10/26/2022 7:58 AM CDT 10/26/2022 7:58 AM CDT Stefan Salomon M.D. LAB POCT ORDERABLES - DEVICE Performing Organization Address [facility] Co de Phone Number [facility] [address] [place] [address], [facility] in [address] [address] documented in this encounter Visit Diagnoses Diagnosis Anticoagulant Therapy Mutation Factor V Leiden Heterozygous (HCC) Monitoring For Therapeutic Drug Therapy Thrombosis Deep Vein Personal History documented in this encounter Additional Health Concerns Assessment Noted Time PHQ-9 Depression Total Score: 0 07/09/19 23 8:29 AM OUTBOARD SYSTEM OPERATOR documented as of this encounter Care Teams Unit Aide Relationship Specialty Start Date End Date Stefan Salomon M.D. [address] [place] [phone] PCP - General Family Medicine 07/09/22 Anticoagulation Team 07/09/22 documented as of this encounter
--- OUTSIDE RECORDS SUMMARY | 2023-07-23 08:15 | XMS_ITS | Encounter Summary ---
Author Name Unknown Organization [facility] Address [address] [place] [address] Care Team Providers Care Early Years Teacher Name Role Phone Stefan Salomon M.D. Primary Care Provider [phone] Reason for Visit * Outpatient (Routine) - Canceled Specialty Diagnoses / Procedures Referred By Contdayana t Referred To Contact Anticoagulation Yue Alonso M.D. [address] [place] [address] [facility] Region Referral ID Status Reason Start Date Expiration Date V isits Requested Visits Authorized [id number] Canceled 11/09/2021 11/09/[phone] Encounter Details Date Type Department Care Team (Latest Contact Info) Description 09/14/2022 8:00 AM CDT Anticoagulation Visit Department of Anticoagulation in [place], [place] [address] [place] [address] Yue Alonso M.D. [address] [place] [phone] Anticoagulant Therapy (Primary Dx); Mutation [...] How often do you attend caodaism or cheondoism serv ices? Never 07/09/2022 Do you belong [...] Answer Date Recorded PHQ-2 Score 0 07/09/2022 [facility] [place] of Occupat ional Health - Occupational Stress [...] file Gender Identity Male 07/02/2017 9:12 AM TEMPORARY STAFF ACCOUNTANT Sexual Orientation Straight 07/02/2017 9: 12 AM TEMPORARY STAFF ACCOUNTANT documented as of this encounter Patient Instructions [...] please call Primary Care Anticoagulation Program at [phone] from 7:30 am to 4:30 pm. Saturday-Saturday [...] if you start any herbal or other qlwx-ywp-jaeppsp product (check with your doctor, a nurse, [...] (Latest Contact Info) Description 07/25/2023 3:40 PM TEMPORARY STAFF ACCOUNTANT Office Visit Department of Dermatology in [place], [place] [address] [place] [address] Crystal Quintero M.D. [address] [place] [address] 08/02/2023 8:50 AM TEMPORARY STAFF ACCOUNTANT Appointment Department of Laboratory Medicine in [address] [phone] Stefan Salomon M.D. [address] [place] [phone] 08/02/2023 9:30 AM TEMPORARY STAFF ACCOUNTANT Anticoagulation Visit Department of Anticoagulation in [place], [place] [address] [place] [phone] Stefan Salomon M.D. [address] [place] [phone] documented as of this encounter Results * INR Reflex, POCT, B (10/11/2022 8:36 AM CDT) INR Reflex, POCT, B Collected DEFAULT 10/11/2022 8:37 AM CDT CNFL Blood (Blood, Capillary) 10/11/2022 8:36 AM CDT 10/11/2022 8:37 AM CDT Yue Alonso M.D. LAB POCT ORDERABLES - DEVICE Performing Organization Address City/State/[facility] Co de Phone Number [facility] [address] [place] [address], [facility] CNFL [facility] in [address] [address] documented in this encounter Visit Diagnoses Diagnosis Anticoagulant Therapy- Primary Mutation Factor V Leiden Heterozygous (HCC) Monitoring For Therapeutic Drug Therapy Thrombosis Deep Vein Personal History documented in this encounter Additional Health Concerns Assessment Noted Time PHQ-9 Depression Total Score: 0 07/09/19 23 8:29 AM TEMPORARY STAFF ACCOUNTANT documented as of this encounter Care Teams Early Years Teacher Relationship Specialty Start Date End Date Stefan Salomon M.D. [address] [phone] PCP - General Family Medicine 07/09/22 Anticoagulation Team 07/09/22 documented as of this encounter
--- OUTSIDE RECORDS SUMMARY | 2023-07-23 08:15 | XMS_ITS | Encounter Summary ---
Author Name Unknown Organization [facility] Address [address] [place] [address] Care Team Providers Care Aquaculture Program Director Name Role Phone Stefan Salomon M.D. Primary Care Provider [phone] Reason for Visit * Outpatient (Routine) - Canceled Specialty Diagnoses / Procedures Referred By Contdayana t Referred To Contact Anticoagulation Yue Alonso M.D. [address] [place] [address] [facility] Region Referral ID Status Reason Start Date Expiration Date V isits Requested Visits Authorized [id number] Canceled 11/14/2021 11/14/[phone] Encounter Details Date Type Department Care Team (Latest Contact Info) Description 10/16/2022 11:00 AM CDT Anticoagulation Visit Department of Anticoagulation in [place], [place] [address] [place] [address] Yue Alonso M.D. [address] [place] [address] Anticoagulant Therapy (Primary Dx); Mutation [...] How often do you attend buddhist or adventism serv ices? Never 07/09/2022 Do [...] Answer Date Recorded PHQ-2 Score 0 07/09/2022 [facility] [place] of Occupat ional Health - Occupational [...] file Gender Identity Male 07/02/2017 9:12 AM AERONAUTICAL INSPECTOR Sexual Orientation Straight 07/02/2017 9: 12 AM AERONAUTICAL INSPECTOR documented as of this encounter Patient Instructions [...] please call Primary Care Anticoagulation Program at [phone] from 7:30 am to 4:30 pm. Saturday-Saturday [...] if you start any herbal or other tvge-iot-obpbfjx product (check with your doctor, a nurse, [...] indicated above stating consult required. Consulted Anticoagulation [facility] for plan. Currently bridging: no. INR is therapeutic/supratherapeutic. Additional dosing or follow-up information: Provider consulted: Kira Woods- Anticoagulation [facility] Pt is on injectable anticoagulant: [...] (Latest Contact Info) Description 07/25/2023 3:40 PM AERONAUTICAL INSPECTOR Office Visit Department of Dermatology in [place], [place] [address] [place] [address] Crystal Quintero M.D. [address] [place] [phone] 08/02/2023 8:50 AM AERONAUTICAL INSPECTOR Appointment Department of Laboratory Medicine in [address] [phone] Stefan Salomon M.D. [address] [place] [phone] 08/02/2023 9:30 AM AERONAUTICAL INSPECTOR Anticoagulation Visit Department of Anticoagulation in [place], [place] [address] [place] [phone] Stefan Salomon M.D. [address] [place] [phone] documented as of this encounter Results * INR Reflex, POCT, B (10/26/2022 7:58 AM CDT) INR Reflex, POCT, B Collected DEFAULT 10/26/2022 7:58 AM CDT [facility] Blood (Blood, Capillary) 10/26/2022 7:58 AM CDT 10/26/2022 7:58 AM CDT Stefan Salomon M.D. LAB POCT ORDERABLES - DEVICE Performing Organization Address City/State/[facility] Co de Phone Number [facility] [address] [place] [address], [facility] CNFL [facility] in [address] [address] documented in this encounter Visit Diagnoses Diagnosis Anticoagulant Therapy- Primary Mutation Factor V Leiden Heterozygous (HCC) Monitoring For Therapeutic Drug Therapy Thrombosis Deep Vein Personal History documented in this encounter Additional Health Concerns Assessment Noted Time PHQ-9 Depression Total Score: 0 07/09/19 23 8:29 AM AERONAUTICAL INSPECTOR documented as of this encounter Care Teams Aquaculture Program Director Relationship Specialty Start Date End Date Stefan Salomon M.D. [address] [phone] PCP - General Family Medicine 07/09/22 Anticoagulation Team 07/09/22 documented as of this encounter
--- OUTSIDE RECORDS SUMMARY | 2023-07-23 08:15 | XMS_ITS | Encounter Summary ---
Author Name Unknown Organization [facility] Address [address] [place] [address] Care Team Providers Care Hris Coordinator Name Role Phone Stefan Salomon M.D. Primary Care Provider [phone] Reason for Visit * Outpatient (Routine) - Canceled Specialty Diagnoses / Procedures Referred By Contdayana t Referred To Contact Anticoagulation Yue Alonso M.D. [address] [place] [address] [facility] Region Referral ID Status Reason Start Date Expiration Date V isits Requested Visits Authorized [id number] Canceled 11/14/2021 11/14/[phone] Encounter Details Date Type Department Care Team (Latest Contact Info) Description 10/26/2022 9:30 AM CDT Anticoagulation Visit Department of Anticoagulation in [place], [place] [address] [place] [address] Yue Alonso M.D. [address] [place] [address] Anticoagulant Therapy (Primary Dx); Mutation [...] How often do you attend mormonism or church serv ices? Never 07/09/2022 Do [...] Recorded PHQ-2 Score 0 07/09/2022 [facility] of Occupat ional Health - Occupational Stress [...] file Gender Identity Male 07/02/2017 9:12 AM THERMOFORMING MACHINE OPERATOR Sexual Orientation Straight 07/02/2017 9: 12 AM THERMOFORMING MACHINE OPERATOR documented as of this encounter Progress Notes [...] (Latest Contact Info) Description 07/25/2023 3:40 PM THERMOFORMING MACHINE OPERATOR Office Visit Department of Dermatology in [place], [place] [address] [place] [phone] Crystal Quintero M.D. [address] [place] [address] 08/02/2023 8:50 AM THERMOFORMING MACHINE OPERATOR Appointment Department of Laboratory Medicine in [address] [phone] Stefan Salomon M.D. [address] [place] [phone] 08/02/2023 9:30 AM THERMOFORMING MACHINE OPERATOR Anticoagulation Visit Department of Anticoagulation in [place], [place] [address] [place] [phone] Stefan Salomon M.D. [address] [place] [phone] documented as of this encounter Results * [...] POCT ORDERABLES - DEVICE Performing Organization Address [facility]/State/ZIP Co de Phone Number [facility] [address] [place] [address], [facility] CN[facility] in [address] [address] documented in this encounter Visit Diagnoses Diagnosis Anticoagulant Therapy- Primary Mutation Factor V Leiden Heterozygous (HCC) Monitoring For Therapeutic Drug Therapy Thrombosis Deep Vein Personal History documented in this encounter Additional Health Concerns Assessment Noted Time PHQ-9 Depression Total Score: 0 07/09/19 23 8:29 AM THERMOFORMING MACHINE OPERATOR documented as of this encounter Care Teams Hris Coordinator Relationship Specialty Start Date End Date Stefan Salomon M.D. [address] [place] [phone] PCP - General Family Medicine 07/09/22 Anticoagulation Team 07/09/22 documented as of this encounter
--- OUTSIDE RECORDS SUMMARY | 2023-07-23 08:15 | XMS_ITS | Encounter Summary ---
Author Name Unknown Organization [facility] Address [address] [place] [address] Care Team Providers Care Dairy Quality Assurance Officer Name Role Phone Stefan Salomon M.D. Primary Care Provider [phone] Encounter Details Date Type Department Care Team (Latest Contact Info) Description 10/11/2022 8:31 AM CDT - 10/11/2022 11:59 PM CDT Hospital Encounter Department of Laboratory Medicine in [address] [phone] Yue Alonso M.D. [address] [place] [phone] Anticoagulant Therapy; Mutation Factor V Leiden Heterozygous [...] How often do you attend rastafari or christianity serv ices? Never 07/09/2022 Do [...] Answer Date Recorded PHQ-2 Score 0 07/09/2022 [facility] - Occupational Stress Questionnaire [...] Gender Identity Male 07/02/2017 9:12 AM CLINICAL RESEARCHER Sexual Orientation Straight 07/02/2017 9: 12 AM CLINICAL RESEARCHER documented as of this encounter Medications at [...] as needed 30 g 2 06/13/2021 polyethylene glycol-electrolyte s (GoLYTELY) 236-22.74-6.74 -5.86 gram [...] 3 08/01/2022 07/17/2023 traMADoL (ULTRAM) 50 mg tabletIndications: Chronic Pain/Nonacute [...] (Latest Contact Info) Description 07/25/2023 3:40 PM CLINICAL RESEARCHER Office Visit Department of Dermatology in [place], [place] [address] [place] [address] Crystal Quintero M.D. [address] [place] [address] 08/02/2023 8:50 AM CLINICAL RESEARCHER Appointment Department of Laboratory Medicine in [address] [phone] Stefan Salomon M.D. [address] [place] [phone] 08/02/2023 9:30 AM CLINICAL RESEARCHER Anticoagulation Visit Department of Anticoagulation in [place], [place] [address] [place] [address] Stefan Salomon M.D. [address] [place] [phone] documented as of this encounter Procedures Procedure [...] Alonso M.D. LAB POCT ORDERABLES - DEVICE [facility] [address] [place] [address], [facility] in [address] [address] * INR Reflex, POCT, B (10/11/2022 8:35 AM CDT) INR Reflex, POCT, B 4.1 10/11/2022 8:35 AM CDT [facility] Comment: ----ADDITIONAL INFORMATION---- Standard intensity warfarin therapeutic range: 2.0 to 3.0 ?? High intensity warfarin therapeutic range: 2.5 to 3.5 Blood 10/11/2022 8:35 AM CDT 10/11/2022 8:37 AM CDT Generic Rals LAB POCT ORDERABLES - DEVICE [facility] [address] [address], [facility] in [address] [address] documented in this encounter Visit Diagnoses Diagnosis Anticoagulant Therapy Mutation Factor V Leiden Heterozygous (HCC) Monitoring For Therapeutic Drug Therapy Thrombosis Deep Vein Personal History documented in this encounter Additional Health Concerns Assessment Noted Time PHQ-9 Depression Total Score: 0 07/09/19 23 8:29 AM CLINICAL RESEARCHER documented as of this encounter Care Teams Dairy Quality Assurance Officer Relationship Specialty Start Date End Date Stefan Salomon M.D. [address] [place] [phone] PCP - General Family Medicine 07/09/22 Anticoagulation Team 07/09/22 documented as of this encounter
--- OUTSIDE RECORDS SUMMARY | 2023-07-23 08:15 | XMS_ITS | Encounter Summary ---
Author Name Unknown Organization [facility] Address [address] [place] [address] Care Team Providers Care Certified Nurses Aide Name Role Phone Stefan Salomon M.D. Primary Care Provider [phone] Reason for Visit * Reason Comments Med Refill Encounter Details Date Type Department Care Team (Late st Contact Info) Description 10/02/2022 Refill Department of Family Medicine, [facility], in [address] [phone] Stefan Salomon M.D. [address] [place] [phone] Med Refill Social History Tobacco Use [...] How often do you attend mu-ism or sabianism serv ices? Never 07/09/2022 Do [...] Answer Date Recorded PHQ-2 Score 0 07/09/2022 [facility] of Occupat ional Health - Occupational [...] file Gender Identity Male 07/02/2017 9:12 AM NUCLEAR RADIATION ENGINEER Sexual Orientation Straight 07/02/2017 9: 12 AM NUCLEAR RADIATION ENGINEER documented as of this encounter Miscellaneous [...] last reviewed/signed: 03/05/2022 * Telephone Encounter - RomaineCaity daugherty - 10/02/2022 1:53 PM CDT Images from the original note were not included. Nurse review: Unable to forward request to provider; Controlled Substance, CSA Primary Provider: Stefan Salomon M.D. Pharmacy (include location): [facility] documented in this encounter Plan of Treatment Upcoming Encounters Date Type Department Care Team (Latest Contact Info) Description 07/25/2023 3:40 PM NUCLEAR RADIATION ENGINEER Office Visit Department of Dermatology in [place], [place] [address] [place] [address] Crystal Quintero M.D. [address] [place] [phone] 08/02/2023 8:50 AM NUCLEAR RADIATION ENGINEER Appointment Department of Laboratory Medicine in [address] [phone] Stefan Salomon M.D. [address] [place] [phone] 08/02/2023 9:30 AM NUCLEAR RADIATION ENGINEER Anticoagulation Visit Department of Anticoagulation in [place], [place] [address] [place] [phone] Stefan Salomon M.D. [address] [place] [phone] documented as of this encounter Visit Diagnoses Diagnosis Chronic Pain Syndrome Polyarthralgia Degeneration Disc Cervical documented in this encounter Additional Health Concerns Assessment Noted Time PHQ-9 Depression Total Score: 0 07/09/19 23 8:29 AM NUCLEAR RADIATION ENGINEER documented as of this encounter Care Teams Certified Nurses Aide Relationship Specialty Start Date End Date Stefan Salomon M.D. [address] [place] [phone] PCP - General Family Medicine 07/09/22 Anticoagulation Team 07/09/22 documented as of this encounter
--- OUTSIDE RECORDS SUMMARY | 2023-07-23 08:15 | XMS_ITS | Encounter Summary ---
Author Name Unknown Organization [facility] Address [address] [place] [address] Care Team Providers Care Route Rider Supervisor Name Role Phone Stefan Salomon M.D. Primary Care Provider [phone] Reason for Referral * Outpatient (Routine) - Closed Specialty Diagnoses / Procedures Referred By Piero self Referred To Contact Family Medicine Stefan Salomon M.D. [address] [place] [phone] [facility] Referral ID Status Reason Start Date Expiration Date Visits Re quested Visits Authorized [id number] Closed 11/01/2022 10/31/2025 1 1 Reason for Visit * Reason Comments Med Refill Encounter Details Date Type Department Care Team (Late st Contact Info) Description 10/31/2022 Refill Department of Family Medicine, [facility], in [address] [phone] Stefan Salomon M.D. [address] [place] [phone] Med Refill Social History Tobacco Use [...] How often do you attend confucianist or mosque serv ices? Never 07/09/2022 Do [...] Answer Date Recorded PHQ-2 Score 0 07/09/2022 [facility] of Occupat ional Health - Occupational Stress [...] file Gender Identity Male 07/02/2017 9:12 AM COSMETOLOGY TEACHER Sexual Orientation Straight 07/02/2017 9: 12 AM COSMETOLOGY TEACHER documented as of this encounter Miscellaneous [...] (Latest Contact Info) Description 07/25/2023 3:40 PM COSMETOLOGY TEACHER Office Visit Department of Dermatology in [place], [place] [address] [place] [address] Crystal Quintero M.D. [address] [place] [phone] 08/02/2023 8:50 AM COSMETOLOGY TEACHER Appointment Department of Laboratory Medicine in [address] [phone] Stefan Salomon M.D. [address] [place] [phone] 08/02/2023 9:30 AM COSMETOLOGY TEACHER Anticoagulation Visit Department of Anticoagulation in [place], [place] [address] [place] [phone] Stefan Salomon M.D. [address] [place] [phone] Scheduled Referrals Name Type Priority Associated Diagnoses Orde r Schedule Family Medicine office visit (clinic) Outpatient Referral Routine Expected: 01/01/2023, Expires: 02/02/2024 documented as of this encounter Visit Diagnoses Diagnosis Chronic Pain Syndrome Polyarthralgia Degeneration Disc Cervical documented in this encounter Additional Health Concerns Assessment Noted Time PHQ-9 Depression Total Score: 0 07/09/19 23 8:29 AM COSMETOLOGY TEACHER documented as of this encounter Care Teams Route Rider Supervisor Relationship Specialty Start Date End Date Stefan Salomon M.D. [phone] [place] [phone] PCP - General Family Medicine 07/09/22 Anticoagulation Team 07/09/22 documented as of this encounter
--- OUTSIDE RECORDS SUMMARY | 2023-07-23 08:15 | XMS_ITS | Encounter Summary ---
Author Name Unknown Organization [facility] Address [address] [place] [address] Care Team Providers Care Infertility Medical Assistant Name Role Phone Stefan Salomon M.D. Primary Care Provider [phone] Reason for Visit * Outpatient (Routine) - Canceled Specialty Diagnoses / Procedures Referred By Contdayana t Referred To Contact Anticoagulation Yue Alonso M.D. [address] [place] [phone] [facility] Region Referral ID Status Reason Start Date Expiration Date V isits Requested Visits Authorized [id number] Canceled 11/14/2021 11/14/[phone] Encounter Details Date Type Department Care Team (Latest Contact Info) Description 10/11/2022 9:30 AM CDT Anticoagulation Visit Department of Anticoagulation in [place], [place] [address] [place] [address] Yue Alonso M.D. [address] [place] [phone] Anticoagulant Therapy (Primary Dx); Mutation [...] How often do you attend episcopalian or christian serv ices? Never 07/09/2022 Do [...] Date Recorded PHQ-2 Score 0 07/09/2022 [facility] [place] of Occupat ional Health - Occupational [...] Gender Identity Male 07/02/2017 9:12 AM WOOL SUPPLIER Sexual Orientation Straight 07/02/2017 9: 12 AM WOOL SUPPLIER documented as of this encounter Progress Notes [...] Contact Info) Description 07/25/2023 3:40 PM WOOL SUPPLIER Office Visit Department of Dermatology in [place], [place] [address] [place] [address] Crystal Quintero M.D. [address] [place] [phone] 08/02/2023 8:50 AM WOOL SUPPLIER Appointment Department of Laboratory Medicine in [address] [phone] Stefan Salomon M.D. [address] [place] [phone] 08/02/2023 9:30 AM WOOL SUPPLIER Anticoagulation Visit Department of Anticoagulation in [place], [place] [address] [place] [address] Stefan Salomon M.D. [address] [place] [phone] documented as of this encounter Results * INR Reflex, POCT, B (10/16/2022 8:02 AM CDT) INR Reflex, POCT, B Collected DEFAULT 10/16/2022 8:03 AM CDT [facility] Blood (Blood, Capillary) 10/16/2022 8:02 AM CDT 10/16/2022 8:03 AM CDT Stefan Salomon M.D. LAB POCT ORDERABLES - DEVICE [facility] [address] [place] [address], [facility] in [address] [address] documented in this encounter Visit Diagnoses Diagnosis Anticoagulant Therapy- Primary Mutation Factor V Leiden Heterozygous (HCC) Monitoring For Therapeutic Drug Therapy Thrombosis Deep Vein Personal History documented in this encounter Additional Health Concerns Assessment Noted Time PHQ-9 Depression Total Score: 0 07/09/19 23 8:29 AM WOOL SUPPLIER documented as of this encounter Care Teams Infertility Medical Assistant Relationship Specialty Start Date End Date Stefan Salomon M.D. [address] [phone] PCP - General Family Medicine 07/09/22 Anticoagulation Team 07/09/22 documented as of this encounter
--- OUTSIDE RECORDS SUMMARY | 2023-07-23 08:15 | XMS_ITS | Encounter Summary ---
Author Name Unknown Organization [facility] Address [address] [place] [address] Care Team Providers Care Occup Ther Name Role Phone Stefan Salomon M.D. Primary Care Provider [phone] Reason for Visit * Reason Onset Date Comments Anticoagulation 10/26/2022 Home Monitor Encounter Details Date Type Department Care Team (Latest Contact Info) Description 10/26/2022 Clinical Communication Department of Anticoagulation in [place], [place] [address] [place] [address] Hina Coker RCotyN. [address] [place] [address] Anticoagulation (Home Monitor) Social History Tobacco Use [...] How often do you attend taoist or episcopal serv ices? Never 07/09/2022 Do [...] Answer Date Recorded PHQ-2 Score 0 07/09/2022 [facility] of Occupat ional Health - Occupational Stress [...] file Gender Identity Male 07/02/2017 9:12 AM OPTICAL DESIGNER Sexual Orientation Straight 07/02/2017 9: 12 AM OPTICAL DESIGNER documented as of this encounter Miscellaneous [...] in thehome. This education program occurs in [facility]. If patient has antiphospholipid syndrome, pharmacist has reviewed and approved patient for home INR If patient is enrolled in hospice, anticoagulation outside medical sales representative has reviewed and approved patient for home INR Exclusion Criteria Patient or caregiver unwilling/unable to perform INR testing (e.g., mobility, dexterity, or cognitive barriers) Patient or caregiver demonstrates treatment-interfering behavior (e.g., over- or under-engagement Patient meets all inclusion criteria and no exclusion criteria is present. Patient given [facility] Primary Care Anticoagulation Program: Important Expectations to Consider before Enrolling in Self INR Testing which outlines patient responsibilities when joining program and includes billing codes to check insurance coverage. Patient also provided with Self INR Testing Pamphlet ([id number]) and [facility] Primary Care Anticoagulation Program: Self INR Testing Patient Expectations document documented in this encounter Plan of Treatment Upcoming Encounters Date Type Department Care Team (Latest Contact Info) Description 07/25/2023 3:40 PM OPTICAL DESIGNER Office Visit Department of Dermatology in [place], [place] [address] [place] [phone] Crystal Quintero M.D. [address] [place] [address] 08/02/2023 8:50 AM OPTICAL DESIGNER Appointment Department of Laboratory Medicine in [address] [phone] Stefan Salomon M.D. [address] [place] [phone] 08/02/2023 9:30 AM OPTICAL DESIGNER Anticoagulation Visit Department of Anticoagulation in [place], [place] [address] [place] [address] Stefan Salomon M.D. [address] [place] [phone] documented as of this encounter Visit Diagnoses Not on filedocumented in this encounter Additional Health Concerns Assessment Noted Time PHQ-9 Depression Total Score: 0 07/09/19 23 8:29 AM OPTICAL DESIGNER documented as of this encounter Care Teams Occup Ther Relationship Specialty Start Date End Date Stefan Salomon M.D. [address] [place] [phone] PCP - General Family Medicine 07/09/22 Anticoagulation Team 07/09/22 documented as of this encounter
--- OUTSIDE RECORDS SUMMARY | 2023-07-23 08:15 | XMS_ITS | Encounter Summary ---
Author Name Unknown Organization [facility] Address [address] [place] [address] Care Team Providers Care Laminator Printed Circuit Boards Name Role Phone Stefan Salomon M.D. Primary Care Provider [phone] Encounter Details Date Type Department Care Team (Latest Contact Info) Description 10/16/2022 7:53 AM CDT - 10/16/2022 11:59 PM CDT Hospital Encounter Department of Laboratory Medicine in [address] [phone] Stefan Salomon M.D. [address] [place] [phone] Anticoagulant Therapy; Mutation Factor V Leiden Heterozygous [...] How often do you attend mormonism or baptist serv ices? Never 07/09/2022 Do [...] Date Recorded PHQ-2 Score 0 07/09/2022 [facility] of Occupat ional Health - [...] file Gender Identity Male 07/02/2017 9:12 AM SENIOR OPERATOR Sexual Orientation Straight 07/02/2017 9: 12 AM SENIOR OPERATOR documented as of this encounter Medications [...] (Latest Contact Info) Description 07/25/2023 3:40 PM SENIOR OPERATOR Office Visit Department of Dermatology in [place], [place] [address] [place] [address] Crystal Quintero M.D. [address] [place] [phone] 08/02/2023 8:50 AM SENIOR OPERATOR Appointment Department of Laboratory Medicine in [address] [phone] Stefan Salomon M.D. [address] [place] [phone] 08/02/2023 9:30 AM SENIOR OPERATOR Anticoagulation Visit Department of Anticoagulation in [place], [place] [address] [place] [address] Stefan Salomon M.D. [address] [place] [phone] documented as of this encounter Procedures Procedure [...] B Collected DEFAULT 10/16/2022 8:03 AM CDT [place] Blood (Blood, Capillary) 10/16/2022 8:02 AM CDT 10/16/2022 8:03 AM CDT Stefan Salomon M.D. LAB POCT ORDERABLES - DEVICE [facility] [address] [place] [address], [facility] CN[facility] in [address] [address] * INR Reflex, POCT, B (10/16/2022 8:01 AM CDT) INR Reflex, POCT, B 2.0 10/16/2022 8:01 AM CDT [facility] Comment: ----ADDITIONAL INFORMATION---- Standard intensity warfarin therapeutic range: 2.0 to 3.0 ?? High intensity warfarin therapeutic range: 2.5 to 3.5 Blood 10/16/2022 8:01 AM CDT 10/16/2022 8:03 AM CDT Generic Rals LAB POCT ORDERABLES - DEVICE [facility] [address] [place] [address], [facility] in [address] [address] documented in this encounter Visit Diagnoses Diagnosis Anticoagulant Therapy Mutation Factor V Leiden Heterozygous (HCC) Monitoring For Therapeutic Drug Therapy Thrombosis Deep Vein Personal History documented in this encounter Additional Health Concerns Assessment Noted Time PHQ-9 Depression Total Score: 0 07/09/19 23 8:29 AM SENIOR OPERATOR documented as of this encounter Care Teams Laminator Printed Circuit Boards Relationship Specialty Start Date End Date Stefan Salomon M.D. [address] [place] [phone] PCP - General Family Medicine 07/09/22 Anticoagulation Team 07/09/22 documented as of this encounter
--- OUTSIDE RECORDS SUMMARY | 2023-07-23 08:16 | XMS_ITS | Encounter Summary ---
Author Name Unknown Organization [facility] Address [address] [place] [address] Care Team Providers Care Shipping And Receiving Assistant Name Role Phone Stefan Salomon M.D. Primary Care Provider [phone] Reason for Referral * Outpatient (Routine) - Authorized Specialty Diagnoses / Procedures Referred By Piero self Referred To Contact Diagnoses Screening Colon Cancer Average Risk Procedures Colonoscopy Stefan Salomon M.D. [address] [place] [phone] [facility] Referral ID Status Reason Start Date Expiration Date V isits Requested Visits Authorized [id number] Authorized 08/01/2022 08/01/2023 1 1 ER DRIER FEEDER Reason for Visit * Reason Comments Establish Care Has concerns he will talk to you about. Questions regarding colonoscopy * Appointment Request (Routine) - Closed Specialty Diagnoses / Procedures Referred By Piero self Referred To Contact Family Medicine Referral ID Status Reason Start Date Expiration Date Visits Re quested Visits Authorized [id number] Closed 07/09/2022 07/09/2023 1 1 Encounter Details Date Type Department Care Team (Late st Contact Info) Description 08/01/2022 10:00 AM VENEER DRIER FEEDER Office Visit Department of Family Medicine, [facility], in [address] [phone] Stefan Salomon M.D. [address] [place] [phone] Screening Colon Cancer Average Risk (Primary [...] How often do you attend gnosticism or bahai serv ices? Never 07/09/2022 Do [...] file Gender Identity Male 07/02/2017 9:12 AM VENEER DRIER FEEDER Sexual Orientation Straight 07/02/2017 9: 12 AM VENEER DRIER FEEDER documented as of this encounter Last Filed Vital Signs Vital Sign Reading Time Taken Comments Blood Pressure 136/77 08/01/2022 10:06 AM VENEER DRIER FEEDER Pulse 62 08/01/2022 10:06 AM VENEER DRIER FEEDER Temperature 36.8 ??C (98.2 ??F) 08/01/2022 9:59 AM CS T Respiratory Rate - - Oxygen Saturation 95% 08/01/2022 9:59 AM VENEER DRIER FEEDER Inhaled Oxygen Concentration - - Weight 100 kg (220 lb 14.4 oz) 08/01/2022 9:59 A M VENEER DRIER FEEDER Height 176.5 cm (5' 9.49) 08/01/2022 9:59 AM CS T Body Mass Index 32.16 08/01/2022 9:59 AM VENEER DRIER FEEDER documented in this encounter Progress Notes * [...] followed closely with a wound clinic in [place] with good results. Patient is due for [...] Cancer Average Risk Patient requesting colonoscopy in [place]. Order placed with prep provided. Patient will [...] understanding of the content. Stefan Salomon M.D. ER DRIER FEEDER documented in this encounter Plan of Treatment Upcoming Encounters Date Type Department Care Team (Latest Contact Info) Description 07/25/2023 3:40 PM VENEER DRIER FEEDER Office Visit Department of Dermatology in [place], [place] [address] [place] [phone] Crystal Quintero M.D. [address] [place] [phone] 08/02/2023 8:50 AM VENEER DRIER FEEDER Appointment Department of Laboratory Medicine in [address] [phone] Stefan Salomon M.D. [address] [place] [phone] 08/02/2023 9:30 AM VENEER DRIER FEEDER Anticoagulation Visit Department of Anticoagulation in [place], [place] [address] [place] [phone] Stefan Salomon M.D. [address] [place] [phone] Scheduled Orders Name Type Priority Associated Diagnoses [...] Total Score: 0 07/09/19 23 8:29 AM VENEER DRIER FEEDER documented as of this encounter Care Teams Shipping And Receiving Assistant Relationship Specialty Start Date End Date Stefan Salomon M.D. [address] [place] [phone] PCP - General Family Medicine 07/09/22 Anticoagulation Team 07/09/22 documented as of this encounter
--- OUTSIDE RECORDS SUMMARY | 2023-07-23 08:16 | XMS_ITS | Encounter Summary ---
Author Name Unknown Organization [facility] Address [address] [place] [address] Care Team Providers Care Plant Health Care Technician Name Role Phone Stefan Salomon M.D. Primary Care Provider [phone] Reason for Visit * Reason Comments Med Refill Encounter Details Date Type Department Care Team (Late st Contact Info) Description 08/28/2022 Refill Department of Family Medicine, [facility], in [address] [phone] Stefan Salomon M.D. [address] [place] [phone] Med Refill Social History Tobacco Use Types [...] week 07/09/2022 How often do you attend alevism or moravian serv ices? Never 07/09/2022 Do you belong [...] file Gender Identity Male 07/02/2017 9:12 AM ENVIRONMENTAL FIELD TECHNICIAN Sexual Orientation Straight 07/02/2017 9: 12 AM ENVIRONMENTAL FIELD TECHNICIAN documented as of this encounter Miscellaneous [...] Provider: Stefan Salomon M.D. Pharmacy (include location): [facility] [address] [place] [address] (Pharmacy) [phone] documented in this encounter Plan of Treatment Upcoming Encounters Date Type Department Care Team (Latest Contact Info) Description 07/25/2023 3:40 PM ENVIRONMENTAL FIELD TECHNICIAN Office Visit Department of Dermatology in [place], [place] [address] [place] [phone] Crystal Quintero M.D. [address] [place] [phone] 08/02/2023 8:50 AM ENVIRONMENTAL FIELD TECHNICIAN Appointment Department of Laboratory Medicine in [address] [phone] Stefan Salomon M.D. [address] [place] [phone] 08/02/2023 9:30 AM ENVIRONMENTAL FIELD TECHNICIAN Anticoagulation Visit Department of Anticoagulation in [place], [place] [address] [place] [phone] Stefan Salomon M.D. [address] [place] [phone] documented as of this encounter Visit Diagnoses Diagnosis Chronic Pain Syndrome Polyarthralgia Degeneration Disc Cervical documented in this encounter Additional Health Concerns Assessment Noted Time PHQ-9 Depression Total Score: 0 07/09/19 8:29 AM ENVIRONMENTAL FIELD TECHNICIAN documented as of this encounter Care Teams Plant Health Care Technician Relationship Specialty Start Date End Date Stefan Salomon M.D. [address] [place] [phone] PCP - General Family Medicine 07/09/22 Anticoagulation Team 07/09/22 documented as of this encounter
--- OUTSIDE RECORDS SUMMARY | 2023-07-23 08:16 | XMS_ITS | Encounter Summary ---
Author Name Unknown Organization [facility] Address [address] [place] [address] Care Team Providers Care Grain Oilseed Or Pasture Farm Manager Name Role Phone Stefan Salomon M.D. Primary Care Provider [phone] Reason for Visit * Reason Onset Date Comments Pre-visit Intake 07/26/2022 Encounter Details Date Type Department Care Team (Latest Contact Info) Description 07/26/2022 7:15 AM SPINNER CAP FRAME Clinical Communication Virtual Review in [place], [place] [address] [place], [place] [phone] Pre-visit Intake Social History Tobacco Use Types [...] How often do you attend yarsani or jain serv ices? Never 07/09/2022 Do [...] file Gender Identity Male 07/02/2017 9:12 AM SPINNER CAP FRAME Sexual Orientation Straight 07/02/2017 9: 12 AM SPINNER CAP FRAME documented as of this encounter Plan of Treatment Upcoming Encounters Date Type Department Care Team (Latest Contact Info) Description 07/25/2023 3:40 PM SPINNER CAP FRAME Office Visit Department of Dermatology in [place], [place] [address] [place] [phone] Crystal Quintero M.D. [address] [place] [phone] 08/02/2023 8:50 AM SPINNER CAP FRAME Appointment Department of Laboratory Medicine in [address] [phone] Stefan Salomon M.D. [address] [place] [phone] 08/02/2023 9:30 AM SPINNER CAP FRAME Anticoagulation Visit Department of Anticoagulation in [place], [place] [address] [place] [phone] Stefan Salomon M.D. [address] [place] [phone] documented as of this encounter Visit Diagnoses Not on filedocumented in this encounter Additional Health Concerns Assessment Noted Time PHQ-9 Depression Total Score: 0 07/09/19 23 8:29 AM SPINNER CAP FRAME documented as of this encounter Care Teams Grain Oilseed Or Pasture Farm Manager Relationship Specialty Start Date End Date Stefan Salomon M.D. [address] [place] [phone] PCP - General Family Medicine 07/09/22 Anticoagulation Team 07/09/22 documented as of this encounter
--- OUTSIDE RECORDS SUMMARY | 2023-07-23 08:16 | XMS_ITS | Encounter Summary ---
Author Name Unknown Organization [facility] Address [address] [place] [address] Care Team Providers Care Can Conveyor Feeder Name Role Phone Stefan Salomon M.D. Primary Care Provider [phone] Reason for Visit * Reason Onset Date Comments canceled colonoscopy 07/09/2022 Encounter Details Date Type Department Care Team (Latest Contact Info) Description 07/09/2022 Clinical Communication Department of General Surgery in [place], [place] [address] [phone] Lamine Martel M.D. [address] [phone] canceled colonoscopy Social History Tobacco [...] How often do you attend taoism or faith serv ices? Never 07/09/2022 Do [...] file Gender Identity Male 07/02/2017 9:12 AM PLASMA CENTER NURSE Sexual Orientation Straight 07/02/2017 9: 12 AM PLASMA CENTER NURSE documented as of this encounter Plan of Treatment Upcoming Encounters Date Type Department Care Team (Latest Contact Info) Description 07/25/2023 3:40 PM PLASMA CENTER NURSE Office Visit Department of Dermatology in [place], [place] [address] [place] [phone] Crystal Quintero M.D. [address] [place] [phone] 08/02/2023 8:50 AM PLASMA CENTER NURSE Appointment Department of Laboratory Medicine in [address] [phone] Stefan Salomon M.D. [address] [place] [phone] 08/02/2023 9:30 AM PLASMA CENTER NURSE Anticoagulation Visit Department of Anticoagulation in [place], [place] [address] [place] [address] Stefan Salomon M.D. [address] [place] [phone] documented as of this encounter Visit Diagnoses Not on filedocumented in this encounter Additional Health Concerns Assessment Noted Time PHQ-9 Depression Total Score: 0 07/09/19 23 8:29 AM PLASMA CENTER NURSE documented as of this encounter Care Teams Can Conveyor Feeder Relationship Specialty Start Date End Date Stefan Salomon M.D. [address] [place] [phone] PCP - General Family Medicine 07/09/22 Anticoagulation Team 07/09/22 documented as of this encounter
--- OUTSIDE RECORDS SUMMARY | 2023-07-23 08:16 | XMS_ITS | Encounter Summary ---
Author Name Unknown Organization [facility] Address [address] [place] [address] Care Team Providers Care Machine Joint Cutter Name Role Phone Stefan Salomon M.D. Primary Care Provider [phone] Reason for Visit * Reason Comments Med Refill Encounter Details Date Type Department Care Team (Late st Contact Info) Description 07/31/2022 Refill Department of Family Medicine, [facility], in [place], [place] [address] [place] [phone] David Alvarenga P.A.-C., P.A. [address] [place] [phone] Med Refill Social History Tobacco [...] How often do you attend zoroastrian or jehovah's witness serv ices? Never 07/09/2022 [...] Answer Date Recorded PHQ-2 Score 0 07/09/2022 [facility] Questionnaire Answer Date [...] file Gender Identity Male 07/02/2017 9:12 AM WALKING DRAGLINE OILER Sexual Orientation Straight 07/02/2017 9: 12 AM WALKING DRAGLINE OILER documented as of this encounter Miscellaneous Notes * Telephone Encounter - Destiny Kapoor, LCotyP.N. - 08/01/2022 3:06 PM WALKING DRAGLINE OILER Controlled substance renewal for Tramadol 50 mg: [...] Cruz RDN, [place] - 07/31/2022 3:03 PM WALKING DRAGLINE OILER Nurse review: Unable to forward request to [...] OF OVERDOSE AND ADDICTION Pharmacy (include location): [facility] [address] [place] [address] ING DRAGLINE OILER documented in this encounter Plan of Treatment Upcoming Encounters Date Type Department Care Team (Latest Contact Info) Description 07/25/2023 3:40 PM WALKING DRAGLINE OILER Office Visit Department of Dermatology in [place], [place] [address] [place] [phone] Crystal Quintero M.D. [address] [place] [phone] 08/02/2023 8:50 AM WALKING DRAGLINE OILER Appointment Department of Laboratory Medicine in [address] [phone] Stefan Salomon M.D. [address] [place] [phone] 08/02/2023 9:30 AM WALKING DRAGLINE OILER Anticoagulation Visit Department of Anticoagulation in [place], [place] [address] [place] [phone] Stefan Salomon M.D. [address] [place] [phone] documented as of this encounter Results * (ABNORMAL) Controlled Substance Monitoring Panel, Urine (02/21/2023 2:36 PM CDT) List patient's current medications Not provided 3 10:09 PM CDT [facility] Comment: ----ADDITIONAL INFORMATION---- Accuracy and completeness of declared medications on reports solely dependent on information submitted by client. Creatinine, Random, U 225.8 mg/dL 3 8:56 AM CDT [facility] Specific [place] 1.035 02/23/20 2 3 8:56 AM CDT [...] 3 11:35 PM CDT [facility] Comment:Tylenol 3 Yaozfda-9-gfba-glucuro nide Not Detected Cutoff: 100 ng/mL 3 11:35 PM CDT [facility] Comment:Metabolite of codein e Morphine Not Detected Cutoff: 25 ng/mL 3 11:35 PM CDT SDS Comment: Kelsey Ornelas, MS Contin; Also a minor metabolite (10%) of codeine and can be seen in low concentrations (<2,000 ng/mL) with poppy seed ingestion. Igzxwbkw-1-ftyy-glucur onide Not Detected Cutoff: 100 ng/mL 3 11:35 PM CDT SDS Comment:Metabolite of morphi ne 6-monoacetylmorphine Not Detected Cutoff: 25 ng/mL 3 11:35 PM CDT SDS Comment:Metabolite of heroin Hydrocodone Not Detected Cutoff: 25 ng/mL 3 11:35 PM CDT SDS Comment: Lortab, [place], Vicodin; Also a very minor metabolite of codeine and impurity (<1%) of oxycodone. Norhydrocodone Not Detected Cutoff: 25 ng/mL 3 11:35 PM CDT [facility] Comment:Metabolite of hydroc odone Dihydrocodeine Not Detected Cutoff: 25 ng/mL 3 11:35 PM CDT [facility] Comment:Metabolite of hydroc odone Hydromorphone Not Detected Cutoff: 25 ng/mL 3 11:35 PM CDT SDS Comment: Dilaudid, Exalgo; Also a metabolite of hydrocodone and a minor (<5%) metabolite of morphine. Mqzuwfbrqhpre-7-csjt-g lucuronide Not Detected Cutoff: 100 ng/mL 3 11:35 PM CDT [facility] Comment:Metabolite of hydrom orphone Oxycodone Not Detected Cutoff: 25 ng/mL 3 11:35 PM CDT SDS Comment:Endocet, Percocet, O xycontin Noroxycodone Not Detected Cutoff: 25 ng/mL 3 11:35 PM CDT SDS Comment:Metabolite of oxycod one Oxymorphone Not Detected Cutoff: 25 ng/mL 3 11:35 PM CDT SDS Comment:Numorphan, Opana; Al so a metabolite of oxycodone. Rwkpraeullf-6-gidq-glu curonide Not Detected Cutoff: 100 ng/mL 3 [...] ng/mL 3 11:35 PM CDT [facility] Comment:Narcan Sazballp-8-uxeh-glucur onide Not Detected Cutoff: 100 ng/mL 3 [...] PM CDT [facility] Comment:Metabolite of tapent adol Wceagwbdos-ftek-wvlzed onide Not Detected Cutoff: 100 ng/mL 3 [...] developed and its performance characteristics determined by [facility] in a manner consistent with CLIA [...] 3 1:34 PM CDT [facility] Comment:Ambien Zolpidem Xdjsca-1-Blbrsbojkl acid Not Detected Cutoff: 10 ng/mL 3 [...] developed and its performance characteristics determined by [facility] in a manner consistent with CLIA [...] 100 ng/mL 3 12:14 PM CDT [facility] 3,3-tugoebwblphfsv-B-e thylamphetamine (MDEA) Not Detected Cutoff: 100 ng/mL [...] developed and its performance characteristics determined by [facility] in a manner consistent with CLIA requirements. This test has not been cleared or approved by the U.S. Food and Drug Administration. Urine (Urine, Midstream) 02/21/2023 2:36 PM CDT 02/21/2023 10:09 PM CDT Stefan Salomon M.D. LAB URINE ORDERABLE S [facility] [address] [address] [facility] [address] [place] [address] [place] [id number] [place] [address] [place] [address] documented in this encounter Visit Diagnoses Diagnosis Chronic Pain Syndrome Polyarthralgia Degeneration Disc Cervical documented in this encounter Additional Health Concerns Assessment Noted Time PHQ-9 Depression Total Score: 0 07/09/19 23 8:29 AM WALKING DRAGLINE OILER documented as of this encounter Care Teams Machine Joint Cutter Relationship Specialty Start Date End Date Stefan Salomon M.D. [address] [phone] PCP - General Family Medicine 07/09/22 Anticoagulation Team 07/09/22 documented as of this encounter
--- OUTSIDE RECORDS SUMMARY | 2023-07-23 08:16 | XMS_ITS | Encounter Summary ---
Author Name Unknown Organization [facility] Address [address] [place] [address] Care Team Providers Care Biology Teacher Name Role Phone Stefan Salomon M.D. Primary Care Provider [phone] Reason for Visit * Reason Onset Date Comments Nurse Visit 07/20/2022 Blood pressure c babitak Encounter Details Date Type Department Care Team (Latest Contact Info) Description 07/20/2022 Clinical Communication Department of Family Medicine, [facility], in [place], [place] [address] [place] [phone] Yue Alonso M.D. [address] [place] [phone] Nurse Visit (Blood pressure check) Social History [...] How often do you attend jew or yarsanism serv ices? Never 07/09/2022 Do [...] Score 0 07/09/2022 [facility] - Occupational Stress Questionnaire Answer [...] file Gender Identity Male 07/02/2017 9:12 AM CREDIT ADMINISTRATION OFFICER Sexual Orientation Straight 07/02/2017 9: 12 AM CREDIT ADMINISTRATION OFFICER documented as of this encounter Miscellaneous Notes * Telephone Encounter - Drea Zafar, C.M.A. - 07/23/2022 9:49 AM CREDIT ADMINISTRATION OFFICER Left message for patient to return call to clinic. Does the patient need to speak to nursing? no Action needed: Need to let patient know to continue with the same management plan for his HTN IT ADMINISTRATION OFFICER * Telephone Encounter - Drea Zafar C.M.A. - 07/20/2022 1:37 PM CREDIT ADMINISTRATION OFFICER Left message for patient to return call to clinic. Does the patient need to speak to nursing? no Action needed: Need to let patient know to continue with the same management plan for his HTN IT ADMINISTRATION OFFICER * Telephone Encounter - Eloina Painter L.P.N. - 07/20/2022 9:55 AM CREDIT ADMINISTRATION OFFICER Today's blood pressure reading and prior two readings: BP Readings from Last 3 Encounters: 07/20/22 135/77 07/09/22 (!) 162/78 05/17/22 135/77 . Medication list was reconciled, and patient is taking their blood pressure medication as prescribed. The patient reports no acute symptoms of hypertension Based on today's readings: The provider will be notified of today's visit and the patient was dismissed IT ADMINISTRATION OFFICER documented in this encounter Plan of Treatment Upcoming Encounters Date Type Department Care Team (Latest Contact Info) Description 07/25/2023 3:40 PM CREDIT ADMINISTRATION OFFICER Office Visit Department of Dermatology in [place], [place] [address] [place] [phone] Crystal Quintero M.D. [address] [place] [phone] 08/02/2023 8:50 AM CREDIT ADMINISTRATION OFFICER Appointment Department of Laboratory Medicine in [address] [phone] Stefan Salomon M.D. [address] [place] [phone] 08/02/2023 9:30 AM CREDIT ADMINISTRATION OFFICER Anticoagulation Visit Department of Anticoagulation in [place], [place] [address] [place] [address], [place] [phone] Stefan Salomon M.D. [address] [place] [phone] documented as of this encounter Visit Diagnoses Not on filedocumented in this encounter Additional Health Concerns Assessment Noted Time PHQ-9 Depression Total Score: 0 07/09/19 23 8:29 AM CREDIT ADMINISTRATION OFFICER documented as of this encounter Care Teams Biology Teacher Relationship Specialty Start Date End Date Stefan Salomon M.D. [address] [place] [phone] PCP - General Family Medicine 07/09/22 Anticoagulation Team 07/09/22 documented as of this encounter
--- OUTSIDE RECORDS SUMMARY | 2023-07-23 08:16 | XMS_ITS | Encounter Summary ---
Author Name Unknown Organization [facility] Address [address] [place] [address] Care Team Providers Care Director Of Workforce Development Name Role Phone Stefan Saloomn M.D. Primary Care Provider [phone] Encounter Details Date Type Department Care Team (Latest Contact Info) Description 09/13/2022 3:00 PM CDT - 09/13/2022 11:59 PM CDT Hospital Encounter Department of Laboratory Medicine in [address] [phone] Stefan Salomon M.D. [address] [place] [phone] Anticoagulant Therapy; Mutation Factor V Leiden Heterozygous (HCC); Monitoring For Therapeutic Drug Therapy; Thrombosis Deep Vein Personal History; Half-Way (Current) Anticoagulant Treatment Discharge Disposition: Home or [...] How often do you attend hoahaoism or jainism serv ices? Never 07/09/2022 Do [...] file Gender Identity Male 07/02/2017 9:12 AM INVESTIGATIONS CONSULTANT Sexual Orientation Straight 07/02/2017 9: 12 AM INVESTIGATIONS CONSULTANT documented as of this encounter Medications at [...] (Latest Contact Info) Description 07/25/2023 3:40 PM INVESTIGATIONS CONSULTANT Office Visit Department of Dermatology in [place], [place] [address] [place] [address] Crystal Quintero M.D. [address] [place] [address] 08/02/2023 8:50 AM INVESTIGATIONS CONSULTANT Appointment Department of Laboratory Medicine in [address] [phone] Stefan Salomon M.D. [address] [place] [phone] 08/02/2023 9:30 AM INVESTIGATIONS CONSULTANT Anticoagulation Visit Department of Anticoagulation in [place], [place] [address] [place] [address] Stefan Salomon M.D. 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 LAB POCT ORDERABLES - DEVICE [facility] [address] [place] [address], [address] [address] * INR Reflex, POCT, B (09/13/2022 3:52 PM CDT) INR Reflex, POCT, B 3.1 09/13/2022 3:52 PM CDT [facility] Comment: ----ADDITIONAL INFORMATION---- Standard intensity warfarin therapeutic range: 2.0 to 3.0 ?? 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 [address] [place] [phone] PCP - General Family Medicine 07/09/22 Anticoagulation Team 07/09/22 documented as of this encounter
--- OUTSIDE RECORDS SUMMARY | 2023-07-23 08:16 | XMS_ITS | Encounter Summary ---
Author Name Unknown Organization [facility] Address [address] [place] [address] Care Team Providers Care Vp Of Marketing Name Role Phone Stefan Salomon M.D. Primary Care Provider [phone] Reason for Visit * Appointment Request (Routine) - Closed Specialty Diagnoses / Procedures Referred By Piero self Referred To Contact Dermatology Diagnoses Rash Referral ID Status Reason Start Date Expiration Date Visits Re quested Visits Authorized [id number] Closed 05/22/2022 05/22/2023 1 1 Encounter Details Date Type Department Care Team (Latest Contact Info) Description 07/27/2022 11:00 AM LINK KNITTING MACHINE OPERATOR Office Visit Department of Dermatology in [place], [place] [address] [place] [phone] Elizabeth Morley M.D. [address] [place] [phone] Dermatoheliosis (Primary Dx); Keratosis Actinic; Dermatitis Discharge [...] How often do you attend restorationist or quaker serv ices? Never 07/09/2022 Do [...] file Gender Identity Male 07/02/2017 9:12 AM LINK KNITTING MACHINE OPERATOR Sexual Orientation Straight 07/02/2017 9: 12 AM LINK KNITTING MACHINE OPERATOR documented as of this encounter Consult Notes * Elizabeth Morley M.D. - 07/27/2022 11:00 AM CST REFERRED BY No referring provider defined for this encounter. Supervised by: Dr. Garcias Correspondence to Elizabeth Jaeger M.D. Patient seen and discussed with supervising crop consultant,who evaluated the patient and concurs with [...] cancer were discussed. I recommended using an [id number] sunscreen with at least SPF 30 or [...] cycles of liquid nitrogen cryotherapy with supervising crop consultant present. Patient tolerated the procedure well. [...] Elizabeth Morley MD Dermatology Resident, [id number] Pager: [phone] KNITTING MACHINE OPERATOR Associated attestation - Brent Garcias M.D., M.B.A. - 07/27/2022 2:36 PM LINK KNITTING MACHINE OPERATOR I saw and evaluated the patient, participating in the dsouza portions of the service. I reviewed the resident/fellow???s note. I agree with the resident/fellow???s findings and plan. documented in this encounter Plan of Treatment Upcoming Encounters Date Type Department Care Team (Latest Contact Info) Description 07/25/2023 3:40 PM LINK KNITTING MACHINE OPERATOR Office Visit Department of Dermatology in [place], [place] [address] [place] [address] Crystal Quintero M.D. [address] [place] [phone] 08/02/2023 8:50 AM LINK KNITTING MACHINE OPERATOR Appointment Department of Laboratory Medicine in [address] [phone] Stefan Salomon M.D. [address] [place] [phone] 08/02/2023 9:30 AM LINK KNITTING MACHINE OPERATOR Anticoagulation Visit Department of Anticoagulation in [place], [place] [address] [place] [phone] Stefan Salomon M.D. [address] [place] [phone] documented as of this encounter Visit Diagnoses Diagnosis Dermatoheliosis- Primary Keratosis Actinic Dermatitis documented in this encounter Additional Health Concerns Assessment Noted Time PHQ-9 Depression Total Score: 0 07/09/19 23 8:29 AM LINK KNITTING MACHINE OPERATOR documented as of this encounter Care Teams Vp Of Marketing Relationship Specialty Start Date End Date Stefan Salomon M.D. [address] [place] [phone] PCP - General Family Medicine 07/09/22 Anticoagulation Team 07/09/22 documented as of this encounter
--- OUTSIDE RECORDS SUMMARY | 2023-07-23 08:16 | XMS_ITS | Encounter Summary ---
Author Name Unknown Organization [facility] Address [address] [place] [address] Care Team Providers Care Motors And Generators Inspector Name Role Phone Stefan Salomon M.D. Primary Care Provider [phone] Reason for Visit * Reason Comments Med Refill Encounter Details Date Type Department Care Team (Late st Contact Info) Description 09/13/2022 Refill Department of Family Medicine, [facility], in [place], [place] [address] [place] [phone] Yue Alonso M.D. [address] [place] [phone] Med Refill Social History Tobacco Use Types [...] How often do you attend zoroastrian or moravian serv ices? Never 07/09/2022 Do [...] Date Recorded PHQ-2 Score 0 07/09/2022 [facility] - Occupational [...] file Gender Identity Male 07/02/2017 9:12 AM APPRENTICE COOK Sexual Orientation Straight 07/02/2017 9: 12 AM APPRENTICE COOK documented as of this encounter Plan of Treatment Upcoming Encounters Date Type Department Care Team (Latest Contact Info) Description 07/25/2023 3:40 PM APPRENTICE COOK Office Visit Department of Dermatology in [place], [place] [address] [place] [phone] Crystal Quintero M.D. [address] [place] [phone] 08/02/2023 8:50 AM APPRENTICE COOK Appointment Department of Laboratory Medicine in [address] [phone] Stefan Salomon M.D. [address] [place] [phone] 08/02/2023 9:30 AM APPRENTICE COOK Anticoagulation Visit Department of Anticoagulation in [place], [place] [address] [place] [phone] Stefan Salomon M.D. [address] [place] [phone] documented as of this encounter Visit Diagnoses Not on filedocumented in this encounter Additional Health Concerns Assessment Noted Time PHQ-9 Depression Total Score: 0 07/09/19 23 8:29 AM APPRENTICE COOK documented as of this encounter Care Teams Motors And Generators Inspector Relationship Specialty Start Date End Date Stefan Salomon M.D. [address] [place] [phone] PCP - General Family Medicine 07/09/22 Anticoagulation Team 07/09/22 documented as of this encounter
== END 2023-07-23 08:08 | disposition home or self-care (01) ==
LOC: WOUND 08:07
PROVIDERS: PCP Student in an Organized Health Care Education/Training Program; Visit Provider Nurse Practitioner Family
DX: I87.312 Chronic venous hypertension (idiopathic) with ulcer of left lower extremity (principal); L97.322 Non-pressure chronic ulcer of left ankle with fat layer exposed; I89.0 Lymphedema, not elsewhere classified
CPT/HCPCS: 97597

== ENCOUNTER 2023-08-06 07:58 | Outpatient (CLI) | payer MEDICARE, BC, SELFPAY | END 2023-08-06 07:59 | disposition home or self-care (01) | LOC: WOUND 07:59 | PROVIDERS: PCP Student in an Organized Health Care Education/Training Program; Visit Provider Nurse Practitioner Family | DX: I87.312 Chronic venous hypertension (idiopathic) with ulcer of left lower extremity (principal); L97.322 Non-pressure chronic ulcer of left ankle with fat layer exposed; I89.0 Lymphedema, not elsewhere classified | CPT/HCPCS: 15271; Q4158 ==

== ENCOUNTER 2023-08-20 07:53 | Outpatient (CLI) | payer MEDICARE, BC, SELFPAY | END 2023-08-20 07:54 | disposition home or self-care (01) | LOC: WOUND 07:53 | PROVIDERS: PCP Student in an Organized Health Care Education/Training Program; Visit Provider Nurse Practitioner Family | DX: I87.312 Chronic venous hypertension (idiopathic) with ulcer of left lower extremity (principal); I87.2 Venous insufficiency (chronic) (peripheral); I89.0 Lymphedema, not elsewhere classified; L97.322 Non-pressure chronic ulcer of left ankle with fat layer exposed | CPT/HCPCS: 11042 ==

== ENCOUNTER 2023-09-03 07:59 | Outpatient (CLI) | payer MEDICARE, BC, SELFPAY | END 2023-09-03 08:00 | disposition home or self-care (01) | LOC: WOUND 07:59 | PROVIDERS: PCP Student in an Organized Health Care Education/Training Program; Visit Provider Nurse Practitioner Family | DX: I87.312 Chronic venous hypertension (idiopathic) with ulcer of left lower extremity (principal); I87.2 Venous insufficiency (chronic) (peripheral); L97.322 Non-pressure chronic ulcer of left ankle with fat layer exposed | CPT/HCPCS: 11042 ==

== ENCOUNTER 2023-09-17 07:58 | Outpatient (CLI) | payer MEDICARE, BC, SELFPAY | END 2023-09-17 07:59 | disposition home or self-care (01) | LOC: WOUND 07:58 | PROVIDERS: PCP Student in an Organized Health Care Education/Training Program; Visit Provider Nurse Practitioner Family | DX: I87.312 Chronic venous hypertension (idiopathic) with ulcer of left lower extremity (principal); I87.2 Venous insufficiency (chronic) (peripheral); L97.328 Non-pressure chronic ulcer of left ankle with other specified severity | CPT/HCPCS: 11042 ==

== ENCOUNTER 2023-10-01 07:56 | Outpatient (CLI) | payer MEDICARE, BC, SELFPAY ==
--- OUTSIDE RECORDS SUMMARY | 2023-10-01 07:59 | XMS_ITS ---
Author Name Unknown Organization [facility] Address [address] [place] [address] Care Team Providers Care Retail Financial Analyst Name Role Phone Unavailable Unavailable Unavailable Surgery Details Not on file Complications Check Surgery Details section. Procedure Estimated Blood Loss Check Surgery Details section. Procedure Findings Check Surgery Details section. Procedure Specimens Taken Check Surgery Details section.
--- OUTSIDE RECORDS SUMMARY | 2023-10-01 07:59 | XMS_ITS | Encounter Summary ---
Author Name Unknown Organization [facility] Address [address] [place] [address] Care Team Providers Care Licensed Certified Orthotist Name Role Phone Stefan Salomon M.D. Primary Care Provider [phone] Encounter Details Date Type Department Care Team (Latest Contact Info) Description 09/20/2023 7:10 AM CDT - 09/20/2023 11:59 PM CDT Hospital Encounter Department of Laboratory Medicine in [address] [phone] Stefan Salomon M.D. [address] [place] [phone] Anticoagulant Therapy; Mutation Factor V Leiden Heterozygous (HCC); Monitoring For Therapeutic Drug Therapy; Thrombosis Deep Vein Personal History Discharge Disposition: Home or Self Care Social History Tobacco Use Types Packs/Day Years Used Date Smoking Tobacco: Former Cigarettes Smokeless Tobacco: Never Alcohol Use Standard Drinks/Week [...] How often do you attend worship or oriental orthodox serv ices? Never 07/09/2022 [...] Answer Date Recorded PHQ-2 Score 0 06/12/2023 [facility] [...] file Gender Identity Male 07/02/2017 9:12 AM DRIER Sexual Orientation Straight 07/02/2017 9: 12 AM DRIER documented as of this encounter Medications at Time of Discharge Medication Sig Dispensed Refills Start Date End Date acetaminophen (TYLENOL) 500 mg capsule Take 500 mg by mouth every 6 (six) hours as needed for pain. Takes 4,000 mg usually each day amLODIPine (NORVASC) 10 mg tablet TAKE ONE [...] to scalp for 2-3 weeks. 40 g 07/27/2022 gabapentin (NEURONTIN) 300 mg capsuleIndications: Insufficiency Venous,Chronic Pain Syndrome,Pain Limb Generalized,Pain Leg Bilateral,Pseudogou t Take 2 capsules (600 mg total) by mouth 3 (three) times a day. 540 capsule 3 02/25/2023 hydrocortisone (HYTONE) 2.5 % cream Apply to rash/itch/irritation involving the face and skin folds twice daily as needed 30 g 2 06/13/2021 losartan (COZAAR) 50 mg tablet TAKE 1 TABLET [50MG] BY MOUTH ONCE EVERY DAY 90 tablet 3 07/17/2023 polyethylene glycol-electrolytes (GoLYTELY) 236-22.74-6.74 -5.86 gram solution Drink 1st portion of prep at 6 PM the evening before. 2nd portion must be started 3 hours before and finished 2 hours prior to report time 4000 mL 08/01/2022 traMADoL (ULTRAM) 50 mg tabletIndications:C hronic Pain/Nonacute Pain Take 1-2 tablets (50-100 mg total) by mouth every 6 (six) hours as needed for pain Indications: Chronic Pain/Nonacute Pain. for pain 240 tablet 09/06/2023 triamcinolone (KENALOG) 0.1 % creamIndications:Pr uritus Apply 1 Application topically 2 (two) times a day as needed (Rash). Apply to itchy spots on the back up to twice per day. 240 g 3 07/25/2023 warfarin (COUMADIN) 5 mg tabletIndications:A nticoagulant Therapy,Mutation Factor V Leiden Heterozygous (HCC),Monitoring For Therapeutic Drug Therapy,Thrombosis Deep Vein Personal History Please take as directed by your Anticoagulation Clinic. 130 tablet 3 10/18/2022 09/24/2023 documented as of this encounter Plan of Treatment Upcoming Encounters Date Type Department Care Team (Latest Contact Info) Description 10/11/2023 8:50 AM CDT Appointment Department of Laboratory Medicine in [address] [phone] Stefan Salomon M.D. [address] [place] [phone] 10/11/2023 9:30 AM CDT Anticoagulation Visit Department of Anticoagulation in [place], [place] [address] [place] [phone] Stefan Salomon M.D. [address] [place] [phone] 10/23/2023 4:15 PM CDT Clinical Communication Virtual Review in [place], [place] [address] [place] [phone] 10/24/2023 2:00 PM CDT Office Visit Department of Dermatology in [place], [place] [address] [place] [phone] Lucy Euceda M.D. [address] [place] [phone] documented as of this encounter Procedures Procedure Name Priority Date/Time Associated Diagnosis Comments INR REFLEX, POCT, B Routine 09/20/2023 7 :20 AM CDT documented in this encounter Results * INR Reflex, POCT, Blood (09/20/2023 7:20 AM CDT) INR Reflex, POCT, B 2.3 09/20/2023 7:20 AM CDT [facility] Comment: ----ADDITIONAL INFORMATION---- Standard intensity warfarin therapeutic range: 2.0 to 3.0 ?? High intensity warfarin therapeutic range: 2.5 to 3.5 Blood 09/20/2023 7:20 AM CDT 09/20/2023 7:32 AM CDT Generic Rals LAB POCT ORDERABLES - DEVICE [facility] [address] [place] [address], [facility] in [address] [address] documented in this encounter Visit Diagnoses Diagnosis Anticoagulant Therapy Mutation Factor V Leiden Heterozygous (HCC) Monitoring For Therapeutic Drug Therapy Thrombosis Deep Vein Personal History documented in this encounter Additional Health Concerns Assessment Noted Time PHQ-9 Depression Total Score: 1 06/12/19 24 4:14 PM DRIER documented as of this encounter Care Teams Licensed Certified Orthotist Relationship Specialty Start Date End Date Stefan Salomon M.D. [address] [place] [phone] PCP - General Family Medicine 07/09/22 Anticoagulation Team 07/09/22 documented as of this encounter
--- OUTSIDE RECORDS SUMMARY | 2023-10-01 07:59 | XMS_ITS | Referral Summary ---
Author Name Unknown Organization [facility] Address [address] [place] [address] Care Team Providers Care Traffic Superintendent Name Role Phone Stefan Salomon M.D. Primary Care Provider [phone] Source Comments Patient records contain information from all sites at [facility]. For routine questions regarding patient records, call [phone] during business hours, M-F 8:00 AM - 5:00 PM Central Time. Record requests for emergency care only can be directed to [phone] at any time.[facility] Encounters Date Type Department Care Team Description 09/24/2023 Refill Department of Family Medicine, [facility], in [address] [address] Stefan Salomon M.D. Med Refill 09/20/2023 7:10 AM CDT - 09/20/2023 11:59 PM CDT Hospital Encounter Department of Laboratory Medicine in [address] [address] Stefan Salomon M.D. Anticoagulant Therapy; Mutation Factor V Leiden Heterozygous (HCC); Monitoring For Therapeutic Drug Therapy; Thrombosis Deep Vein Personal History Discharge Disposition: Home or Self Care 09/20/2023 11:00 AM CDT Anticoagulation Visit Department of Anticoagulation in [place], [place] [address] [place] [address] Stefan Salomon M.D. Thrombosis Deep Vein Personal History (Primary Dx); Anticoagulant Therapy; Mutation Factor V Leiden Heterozygous (HCC); Monitoring For Therapeutic Drug Therapy; Hypertension Essential Primary 09/13/2023 7:10 AM CDT - 09/13/2023 11:59 PM CDT Hospital Encounter Department of Laboratory Medicine in [address] [address] Stefan Salomon M.D. Anticoagulant Therapy [Z79.01]; Mutation Factor V Leiden Heterozygous (HCC); Monitoring For Therapeutic Drug Therapy [Z51.81]; Thrombosis Deep Vein Personal History Discharge Disposition: Home or Self Care 09/13/2023 9:30 AM CDT Anticoagulation Visit Department of Anticoagulation in [address] [address] Stefan Salomon M.D. Anticoagulant Therapy; Mutation Factor V Leiden Heterozygous (HCC); Monitoring For Therapeutic Drug Therapy; Thrombosis Deep Vein Personal History 09/03/2023 Refill Department of Family Medicine, [facility], [address] [address] Nicholas Olsen M.D., Ph.D. Med Refill 08/23/2023 9:30 AM CDT Anticoagulation Visit Department of Anticoagulation in [address] [address] Stefan Salomon M.D. Mutation Factor V Leiden Heterozygous (HCC) (Primary Dx); Anticoagulant Therapy [Z79.01]; Monitoring For Therapeutic Drug Therapy [Z51.81]; Thrombosis Deep Vein Personal History 08/23/2023 7:35 AM CDT - 08/23/2023 11:59 PM CDT Hospital Encounter Department of Laboratory Medicine in [address] [address] Stefan Salomon M.D. Anticoagulant Therapy [Z79.01]; Mutation Factor V Leiden Heterozygous (HCC); Monitoring For Therapeutic Drug Therapy [Z51.81]; Thrombosis Deep Vein Personal History Discharge Disposition: Home or Self Care 08/06/2023 Refill Department of Family Medicine, [facility], in [address] [address] Stefan Salomon M.D. Med Refill 08/02/2023 9:30 AM SUSTAINABILITY PROJECT COORDINATOR Anticoagulation Visit Department of Anticoagulation in [place], [place] [address] [place] [phone] Stefan Salomon M.D. Anticoagulant Therapy [Z79.01]; Mutation Factor V Leiden Heterozygous (HCC); Monitoring For Therapeutic Drug Therapy [Z51.81]; Thrombosis Deep Vein Personal History 08/02/2023 7:27 AM SUSTAINABILITY PROJECT COORDINATOR - 08/02/2023 11:59 PM SUSTAINABILITY PROJECT COORDINATOR Hospital Encounter Department of Laboratory Medicine in [address] [address] Stefan Salomon M.D. Anticoagulant Therapy [Z79.01]; Mutation Factor V Leiden Heterozygous (HCC); Monitoring For Therapeutic Drug Therapy [Z51.81]; Thrombosis Deep Vein Personal History Discharge Disposition: Home or Self Care 07/25/2023 3:40 PM SUSTAINABILITY PROJECT COORDINATOR Office Visit Department of Dermatology in [place], [place] [address] [place] [phone] Crystal Quintero M.D. Pruritus (Primary Dx); Keratosis Seborrheic Inflamed [L82.0] 07/19/2023 2:30 PM SUSTAINABILITY PROJECT COORDINATOR Clinical Communication Virtual Review in [place], [place] [address] [place] [address] Pre-visit Intake 07/16/2023 Refill Department of Family Medicine, [facility], in [address] [address] Stefan Salomon M.D. Med Refill 07/09/2023 Orders [facility] Stefan Salomon M.[facility]. 07/03/2023 Refill Department of Family Medicine, [facility], in [address] [address] Stefan Salomon M.D. Med Refill from Last 3 Months Allergies Active Allergy Reactions Criticality Noted Date Comments Atorvastatin Myalgia 02/08/2017 Leg Pain/Cramps Bypflne-Hvh-Nvi Reductase Inhibitors Other (see comments) 09/10/2022 Medications [...] folds 120 g 2 06/13/19 22 Active acetaminophen (TYLENOL) 500 mg capsule Take 500 mg by mouth every 6 (six) hours as needed for pain. Takes 4,000 mg usually each day Active fluorouraciL (EFUDEX) 5 % cream Apply 1 application. topically 2 (two) times a day. Apply to scalp for 2-3 weeks. 40 g 07/27/19 23 Active polyethylene glycol-electroly yung (GoLYTELY) 236-22.74-6.74 -5.86 gram solution Drink 1st portion of prep at 6 PM the evening before. 2nd portion must be started 3 hours before and finished 2 hours prior to report time 4000 mL 08/02/19 23 Active gabapentin (NEURONTIN) 300 mg capsuleIndicatio [...] DAY 90 tablet 3 03/20/20 23 Active losartan (COZAAR) 50 mg tablet TAKE 1 TABLET [50MG] BY MOUTH ONCE EVERY DAY 90 tablet 3 07/17/19 24 Active triamcinolone (KENALOG) 0.1 % creamIndications :Pruritus Apply 1 Application topically 2 (two) times a day as needed (Rash). Apply to itchy spots on the back up to twice per day. 240 g 3 07/25/19 24 Active traMADoL (ULTRAM) 50 mg tabletIndication s:Chronic Pain/Nonacute Pain Take 1-2 tablets (50-100 mg total) by mouth every 6 (six) hours as needed for pain Indications: Chronic Pain/Nonacute Pain. for pain 240 tablet 09/06/19 24 Active warfarin (JANTOVEN) 5 mg tabletIndication s:Anticoagulant Therapy,Mutation Factor V Leiden Heterozygous (HCC),Monitoring For Therapeutic Drug Therapy,Thrombos is Deep Vein Personal History Please take as directed by your Anticoagulation Clinic. 118 tablet 3 09/24/19 24 Active warfarin (COUMADIN) 5 mg tabletIndication s:Anticoagulant Therapy,Mutation Factor V Leiden Heterozygous (HCC),Monitoring For Therapeutic Drug Therapy,Thrombos is Deep Vein Personal History Please take as directed by your Anticoagulation Clinic. 130 tablet 3 10/19/19 23 024 Discontinued(Re order) traMADoL (ULTRAM) 50 mg tabletIndication s:Chronic Pain/Nonacute Pain Take 1-2 tablets (50-100 mg total) by mouth every 6 (six) hours as needed for pain Indications: Chronic Pain/Nonacute Pain. 240 tablet 08/07/19 24 024 Discontinued Active Problems Problem Noted Date Diagnosed Date [...] Limb Generalized 11/18/2011 Overview: Saw Neurologist at [facility] on 09/16/2009. MRI lumbar spine done on [...] right leg S/P IVC filter on 08/24/1996. Vascular (Lower Extremity) A nd Diabetic Ulcer NOS 10/02/2009 08/19/2018 Overview: Venous Stasis Ulcer of right leg Diagnosis Maintenance Updates Fever Rheumatic 10/02/2009 07/15/2017 Debility 04/11/2009 08/01/2022 [...] Smoking Tobacco: Former Cigarettes Smokeless Tobacco: Never Tobacco Cessation:Counseling Given: Not [...] How often do you attend yarsani or shinto serv ices? Never 07/09/2022 Do [...] Answer Date Recorded PHQ-2 Score 0 06/12/2023 [facility] [place] of Occupat ional Health - Occupational Stress [...] file Gender Identity Male 07/02/2017 9:12 AM SUSTAINABILITY PROJECT COORDINATOR Sexual Orientation Straight 07/02/2017 9: 12 AM SUSTAINABILITY PROJECT COORDINATOR Last Filed Vital Signs Vital Sign Reading Time Taken Comments Blood Pressure 148/82 06/12/2023 4:23 PM SUSTAINABILITY PROJECT COORDINATOR Pulse 63 06/12/2023 4:23 PM SUSTAINABILITY PROJECT COORDINATOR Temperature 36.6 ??C (97.9 ??F) 06/12/2023 4:23 PM CS T Respiratory Rate 18 06/12/2023 4:23 PM SUSTAINABILITY PROJECT COORDINATOR Oxygen Saturation 94% 06/12/2023 4:23 PM SUSTAINABILITY PROJECT COORDINATOR Inhaled Oxygen Concentration - - Weight 95.6 kg (210 lb 12.2 oz) 06/12/2023 4:23 PM SUSTAINABILITY PROJECT COORDINATOR Height 176.5 cm (5' 9.49) 08/01/2022 9:59 AM CS T Body Mass Index 30.69 08/01/2022 9:59 AM SUSTAINABILITY PROJECT COORDINATOR Plan of Treatment Upcoming Encounters Date Type Department Care Team (Latest Contact Info) Description 10/11/2023 8:50 AM CDT Appointment Department of Laboratory Medicine in [address] [phone] Stefan Salomon M.D. [address] [place] [phone] 10/11/2023 9:30 AM CDT Anticoagulation Visit Department of Anticoagulation in [address] [address] Stefan Salomon M.D. [address] [place] [phone] 10/23/2023 4:15 PM CDT Clinical Communication Virtual Review in [place], [place] [address] [place] [address] 10/24/2023 2:00 PM CDT Office Visit Department of Dermatology in [place], [place] [address] [place] [phone] Lucy Euceda M.D. [address] [place] [phone] Medical Devices Implanted Type Area Engine Repairer Device Identifier Shelf Expiration Date Model / Serial / Lot Mineralized Cancellous Bone 2.0 - Anne [id number] Implanted:Qty: 1 on 08/10/2015 Bone or Tissue Tooth [facility] Description:Device Manufactu rer - [employer]. Body Location - Other. tooth-13. Device Status Text - [id number]. Hardware E.G. Pins/Screws/Rk s Hardware e.g. pins/screws /rods Mouth Abutment Nobrpl Rp 4.3x5 - Anne [id number] Implanted:Qty: 1 on 07/03/2007 Hardware e.g. pins/screws /rods Tooth [employer] Description:Device Manufactu rer - [employer]. Body Location - Tooth 5. Device Status Text - [id number]. Screw Rst Curly Taper Rp 4.3x13.0 - Anne [id number] Implanted:Qty: 1 on 07/03/2007 Hardware e.g. pins/screws /rods Tooth [employer] Description:Device Manufactu rer - [employer]. Body Location - Tooth 5. Device Status Text - [id number]. Screw Nobrpl Curly Tap Fulfillment Coordinator 3.5x11.5 - Anne [id number] Implanted:Qty: 1 on 03/03/2012 Hardware e.g. pins/screws /rods Tooth [employer] Description:Device Manufactu rer - [employer]. Body Location - Tooth 29. Device Status Text - [id number]. Abutment Nobrpl Fulfillment Coordinator 3.5x5 - Anne [id number] Implanted:Qty: 1 on 03/03/2012 Hardware e.g. pins/screws /rods Tooth [employer] Description:Device Manufactu rer - [employer]. Body Location - Tooth 29. Device Status Text - [id number]. Abutment Nobrpl Fulfillment Coordinator 3.5x3 - Anne [id number] Implanted:Qty: 1 on 08/23/2014 Hardware e.g. pins/screws /rods Tooth [employer] Description:Device Manufactu rer - [employer]. Body Location - Other. tooth- 28. Device Status Text - [id number]. Abutment Nobrpl Fulfillment Coordinator 3.5x3 - Anne [id number] Implanted:Qty: 1 on 08/23/2014 Hardware e.g. pins/screws /rods Tooth [employer] Description:Device Manufactu rer - [employer]. Body Location - Other. tooth- 28. Device Status Text - [id number]. Screw Nobrpl Curly Taper Fulfillment Coordinator 3.5x13.0 - Anne [id number] Implanted:Qty: 1 on 08/23/2014 Hardware e.g. pins/screws /rods Tooth [employer] Description:Device Manufactu rer - [employer]. Body Location - Other. tooth- 28. Device Status Text - [id number]. Screw Nobrpl Curly Taper Rp 4.3x10.0 - Anne [id number] Implanted:Qty: 1 on 08/10/2015 Hardware e.g. pins/screws /rods Tooth [employer] Description:Device Manufactu rer - [employer]. Body Location - Other. tooth- 20. Device Status Text - [id number]. Brane Fix Rst Tiunite Rp 4.3 X 13.0 - Anne [id number] Implanted:Qty: 1 on 08/10/2015 Hardware e.g. pins/screws /rods Tooth [employer] Description:Device Manufactu rer - [employer]. Body Location - Other. tooth- 21. Device Status Text - [id number]. Brane Fix Rst Tiunite Rp 4.3 X 13.0 - Anne [id number] Implanted:Qty: 1 on 08/10/2015 Hardware e.g. pins/screws /rods Tooth [employer] Description:Device Manufactu rer - [employer]. Body Location - Other. tooth- 13. Device Status Text - [id number]. Brane Fix Rst Tiunite Rp 4.3 X 13.0 - Anne [id number] Implanted:Qty: 1 on 08/10/2015 Hardware e.g. pins/screws /rods Tooth [employer] Description:Device Manufactu rer - [employer]. Body Location - Other. tooth- 11. Device Status Text - [id number]. Abutment Nobrpl Rp 4.3x3 - Anne [id number] Implanted:Qty: 1 on 02/08/2016 Hardware e.g. pins/screws /rods Tooth [employer] Description:Device Manufactu rer - [employer]. Body Location - Other. tooth- 20. Device Status Text - [id number]. Abutment Nobrpl Rp 5.3x3 - Anne [id number] Implanted:Qty: 1 on 02/08/2016 Hardware e.g. pins/screws /rods Tooth [employer] Description:Device Manufactu rer - [employer]. Body Location - Other. tooth- 13. Device Status Text - [id number]. Abutment Nobrpl Rp 4.3x3 - Anne [id number] Implanted:Qty: 1 on 02/08/2016 Hardware e.g. pins/screws /rods Tooth [employer] Description:Device Manufactu rer - [employer]. Body Location - Other. tooth- 21. Device Status Text - [id number]. Abutment Nobrpl Rp 4.3x3 - Anne [id number] Implanted:Qty: 1 on 02/08/2016 Hardware e.g. pins/screws /rods Tooth [employer] Description:Device Manufactu rer - [employer]. Body Location - Other. tooth- 11. Device Status Text - [id number]. Patch Dura-Guard 4x 4 - Anne [id number] Implanted:Qty: 1 on 08/19/1996 Mesh or Patch [employer] Description:Device Manufactu rer - [employer]. Device Status Text - [id number]. Allograft Bioxclude Chorion 1cm X 2.5cm - Anne [id number] Implanted:Qty: 1 on 01/15/2014 Mesh or Patch Tooth Unknown Description:Device Manufactu rer - Unknown. Body Location - tooth-28. Device Status Text - [id number]. Allograft Bioxclude Chorion 1cm X 2.5cm - Anne [id number] Implanted:Qty: 1 on 01/15/2014 Mesh or Patch Tooth Unknown Description:Device Manufactu rer - Unknown. Body Location - tooth-5. Device Status Text - [id number]. Allograft Bioxclude Chorion 1.5cm X 2cm - Anne [id number] Implanted:Qty: 1 on 08/10/2015 Mesh or Patch Other/Legacy - See Implant Description Unknown Description:Device Manufactu rer - Unknown. Body Location - Other. Left. Device Status Text - [id number]. Procedures Procedure Name Priority Date/Time Associated Diagnosis Comments INR REFLEX, POCT, B Routine 09/20/2023 7 :20 AM CDT INR REFLEX, POCT, B Routine 09/13/2023 7 :26 AM CDT INR REFLEX, POCT, B Routine 08/23/2023 7 :45 AM CDT Anticoagulant Therapy [Z79.01] Mutation Factor V Leiden Heterozygous (HCC) Monitoring For Therapeutic Drug Therapy [Z51.81] Thrombosis Deep Vein Personal History INR REFLEX, POCT, B Routine 08/02/2023 7 :35 AM SUSTAINABILITY PROJECT COORDINATOR Anticoagulant Therapy [Z79.01] Mutation Factor V Leiden Heterozygous (HCC) Monitoring For Therapeutic Drug Therapy [Z51.81] Thrombosis Deep Vein Personal History LIPID PANEL, S Routine 04/19/2023 7:39 AM SUSTAINABILITY PROJECT COORDINATOR Hyperlipidemia BASIC METABOLIC PANEL, S/P Routine 04/19/2023 7:39 AM SUSTAINABILITY PROJECT COORDINATOR Hypertension Essential Primary HCV AB SCRN W/REFLEX TO HCV PCR, S Routine 06/15/2016 9:01 AM SUSTAINABILITY PROJECT COORDINATOR COLONOSCOPY Routine 12/27/2014 US AORTA Routine 11/09/2014 8:30 AM CDT from Last 3 Months or Most Recently Relevant to Health Maintenance Results * INR Reflex, POCT, Blood (09/20/2023 7:20 AM CDT) Only the most recent of4 resultswithin the time period is included. INR Reflex, POCT, B 2.3 09/20/2023 7:20 AM CDT CNFL Comment: ----ADDITIONAL INFORMATION---- Standard intensity warfarin therapeutic range: 2.0 to 3.0 ?? High intensity warfarin therapeutic range: 2.5 to 3.5 Blood 09/20/2023 7:20 AM CDT 09/20/2023 7:32 AM CDT Generic Rals LAB POCT ORDERABLES - DEVICE Performing Organization Address City/State/[facility] Co de Phone Number [facility] [address] [place] [phone], [facility] CNFL [facility] in [address] [address] * Lipid Panel (04/19/2023 7:39 AM SUSTAINABILITY PROJECT COORDINATOR) Triglycerides 113 mg/dL 04/19/2023 11:48 AM SUSTAINABILITY PROJECT COORDINATOR CNFL Comment: ----REFERENCE VALUE---- Normal: <150 mg/dL Borderline High: 150-199 mg/dL High: 200-499 mg/dL Very High: > or =500 mg/dL Cholesterol, Total 144 mg/dL 2022 11:48 AM SUSTAINABILITY PROJECT COORDINATOR CNFL Comment: ----REFERENCE VALUE---- Desirable: < 200 mg/dL Borderline High: 200 - 239 mg/dL High: > or = 240 mg/dL Cholesterol, LDL, Calculated 76 mg/dL 04/19/2023 12:10 PM SUSTAINABILITY PROJECT COORDINATOR CNFL Comment: ----REFERENCE VALUE---- Desirable: <100 mg/dL Above Desirable: 100-129 mg/dL Borderline High: 130-159 mg/dL High: 160-189 mg/dL Very High: >=190 mg/dL ----ADDITIONAL INFORMATION---- LDL cholesterol calculated using the Sosa/NIH equation. Cholesterol, HDL 48 >=40 mg/dL 04/19/20 12:10 PM SUSTAINABILITY PROJECT COORDINATOR CNFL Cholesterol, Non-HDL, Calculated 96 mg/dL 04/19/2023 12:10 PM SUSTAINABILITY PROJECT COORDINATOR CNFL Comment: ----REFERENCE VALUE---- Desirable: <130 mg/dL Above Desirable: 130-159 mg/dL Borderline High: 160-189 mg/dL High: 190-219 mg/dL Very High: > or =220 mg/dL Fasting (8 HR or more) No 04/19/2023 7:40 AM SUSTAINABILITY PROJECT COORDINATOR CNFL Blood (Blood, Venous) 04/19/2023 7:39 AM SUSTAINABILITY PROJECT COORDINATOR 04/19/2023 7:40 AM SUSTAINABILITY PROJECT COORDINATOR Stefan Salomon M.D. LAB BLOOD ADD-ON [facility] [address] [place] [address], [facility] CNFL [facility] in [address] [address] * Basic Metabolic Panel (04/19/2023 7:39 AM SUSTAINABILITY PROJECT COORDINATOR) Potassium, P 4.1 3.6 - 5.2 mmol/L 04/19/2023 11:48 AM SUSTAINABILITY PROJECT COORDINATOR CNFL Sodium, P 138 135 - 145 mmol/L 04/19/2023 11:48 AM SUSTAINABILITY PROJECT COORDINATOR CNFL Chloride, P 102 98 - 107 mmol/L 04/19/2023 11:48 AM SUSTAINABILITY PROJECT COORDINATOR CNFL Bicarbonate, P 23 22 - 29 mmol/L 04/19/2023 11:48 AM SUSTAINABILITY PROJECT COORDINATOR CNFL Anion Gap, P 13 7 - 15 04/19/2023 11:48 AM SUSTAINABILITY PROJECT COORDINATOR CNFL BUN (Blood Urea Nitrogen), P 21 8 - 24 mg/dL 04/19/2023 11:48 AM SUSTAINABILITY PROJECT COORDINATOR CNFL Creatinine 0.87 0.74 - 1.35 mg/dL 04/19/2023 11:48 AM SUSTAINABILITY PROJECT COORDINATOR CNFL Estimated GFR (eGFR) >90 >=60 mL/min/BSA 04/19/2023 11:48 AM SUSTAINABILITY PROJECT COORDINATOR CNFL Comment: Estimated GFR calculated using the 2020 CKD_EPI creatinine equation. Calcium, Total, P 9.1 8.8 - 10.2 mg/dL 04/19/2023 11:48 AM SUSTAINABILITY PROJECT COORDINATOR CNFL Glucose, P 103 70 - 140 mg/dL 04/19/2023 11:48 AM SUSTAINABILITY PROJECT COORDINATOR CNFL Blood (Blood, Venous) 04/19/2023 7:39 AM SUSTAINABILITY PROJECT COORDINATOR 04/19/2023 7:40 AM SUSTAINABILITY PROJECT COORDINATOR Stefan Salomon M.D. LAB BLOOD ADD-ON [facility] [address] [place] [address], [facility] [place] [address] * HCV Ab w/Reflex to HCV PCR, S (medicare) (06/15/2016 9:01 AM SUSTAINABILITY PROJECT COORDINATOR) HXHCV Ab [facility] Reactive Negative POWERCHART Comment: Supplemental testing for HCV RNA is ordered to rule out active HCV infection. Lokxko-el-yravqh ratio is >=1.00 and <8.00. Test Performed by: [place] [address] Volcanologist: Armando Chavez II, M.D., Ph.D. Blood 06/15/2016 9:01 AM SUSTAINABILITY PROJECT COORDINATOR Abraham Valle M.D. LAB MICROBIOLOGY - B LOOD ORDERABLES POWERCHART * Colonoscopy (12/27/2014) EXT Colonoscopy Abnormal - See Scanned Report for Details Normal - See Scanned Report for Details, HIMS - Report Received and Scanned Historical Provider GI PROCEDURE ORDERAB LES * US Aorta (11/09/2014 8:30 AM CDT) Anatomical Region Laterality Modality Abdomen, Pelvis N/A Ultrasound 11/09/2014 8:30 AM CDT Impressions 11/09/2014 9:32 AM CDT Normal abdominal aorta Narrative 11/09/2014 9:32 AM CDT EXAM: AAA Screening Welcome Medicare INDICATION: Welcome to Medicare, tobacco use, HTN COMPARISON: None. FINDINGS: No evidence for abdominal aortic aneurysm. Maximum luminal diameter 2.2 CM. Iliac arteries are unremarkable. Procedure Note Kike Davidson D.O. / ProviderDesiree M.D. - 10/10/2016 EXAM: AAA Screening Welcome Medicare INDICATION: Welcome to Medicare, tobacco use, HTN COMPARISON: None. FINDINGS: No evidence for abdominal aortic aneurysm. Maximum luminal diameter 2.2 CM. Iliac arteries are unremarkable. IMPRESSION: Normal abdominal aorta Sulaiman Ordaz Jr., R.D.M.S. IMG US PROCEDURES from Last 3 Months or Most Recently Relevant to Health Maintenance Care Teams Traffic Superintendent Relationship Specialty Start Date End Date Stefan Salomon M.D. [id number] [phone] PCP - General Family Medicine 07/09/22 Anticoagulation Team 07/09/22
--- OUTSIDE RECORDS SUMMARY | 2023-10-01 07:59 | XMS_ITS | Clinical Summary ---
Author Name Unknown Organization [facility] Address [place], [place] [address] Care Team Providers Care Aix System Administrator Name Role Phone Yue Alonso Yolanda KAY Primary Care Provider Allergies Active Allergy Reactions Criticality Noted Date Comments Atorvastatin Myalgia 07/04/2022 Medications Medication Sig Dispensed Refills Start Date End Date Status WARFARIN SODIUM (WARFARIN ORAL) Take 7.5 mg by mouth. Active losartan (COZAAR) 50 mg tablet Take 50 mg by mouth once daily. Active traMADol (ULTRAM) 50 mg tablet Take 50 mg by mouth every 6 hours if needed for Pain. Active ACETAMINOPHEN ORAL Take 1,000 mg by mouth 3 times daily if needed. Active gabapentin (NEURONTIN) 300 mg capsule Take 600 mg by mouth 2 times daily. 02/14/2021 Active cephalexin (KEFLEX) 500 mg capsule Take 500 mg by mouth 3 times daily. 05/10/2021 Active permethrin (ELIMITE) 5 % creamIndications:Rash, Scabies,Itchy skin Apply to entire body from the neck down and leave on for 8 hours. Then rinse and repeat this in one week. 60 g 05/13/2021 Active amLODIPine (NORVASC) 10 mg tablet Take 10 mg by mouth once daily. 03/16/2022 Active zolpidem (AMBIEN) 5 mg tablet Take 1 Tablet by mouth at bedtime. 01/25/2022 Active Active Problems Problem Noted Date [...] extremity 07/13/2016 Overview: Overview: Saw Neurologist at [facility] on 09/16/2009. MRI lumbar spine done [...] Encounters Date Type Department Care Team Description 08/26/2023 Telephone [facility] [address] [place], [place] [phone] Bhavik Benson, AuD Hearing Aid from Last 3 Months Immunizations Name Administration [...] Comments Blood Pressure 117/67 05/13/2021 2:55 PM SLAG EXPANDER Pulse 103 05/13/2021 2:55 PM SLAG EXPANDER Temperature 36.9 ??C (98.4 ??F) 05/13/2021 2:55 PM CS T Respiratory Rate 18 05/13/2021 2:55 PM SLAG EXPANDER Oxygen Saturation 99% 05/13/2021 2:55 PM SLAG EXPANDER Inhaled Oxygen Concentration - - Weight 97.8 kg (215 lb 9.8 oz) 07/04/2022 11:35 AM SLAG EXPANDER Height 175.7 cm (5' 9.17) 07/04/2022 11:[address] Body Mass Index 31.68 07/04/2022 11:35 AM SLAG EXPANDER Plan of Treatment Health Maintenance Due Date [...] 04/14/2021, 08/28/2020, 07/31/2020 Influenza for age 65+ 02/02/2024 Tdap Completed 01/12/2008 Advance Directives * Full Code (Latest Code Status on File) Date Activated Date Inactivated Comments 12/27/2014 8:51 AM 12/27/2014 12:46 PM Care Teams A[employer] System Administrator Relationship Specialty Start Date End Date Yue Alonso MBBS [address] [place] [address] [place] [address] PCP - General Family Practice 06/26/22
--- OUTSIDE RECORDS SUMMARY | 2023-10-01 07:59 | XMS_ITS | Encounter Summary ---
Author Name Unknown Organization [facility] Address [address] [place] [address] Care Team Providers Care Cashier Greeter Name Role Phone Stefan Salomon M.D. Primary Care Provider [phone] Reason for Visit * Outpatient (Routine) - Authorized Specialty Diagnoses / Procedures Referred By Contdayana t Referred To Contact Anticoagulation Diagnoses Anticoagulant Therapy Mutation Factor V Leiden Heterozygous (HCC) Monitoring For Therapeutic Drug Therapy Thrombosis Deep Vein Personal History Stefan Salomon M.D. [address] [phone] [facility] Referral ID Status Reason Start Date Expiration Date V isits Requested Visits Authorized [id number] Authorized 02/01/2023 01/31/2026 300 300 Encounter Details Date Type Department Care Team (Latest Contact Info) Description 09/20/2023 11:00 AM CDT Anticoagulation Visit Department of Anticoagulation in [place], [place] [address] [place] [address] Stefan Salomon M.D. [address] [place] [phone] Thrombosis Deep Vein Personal History (Primary Dx); Anticoagulant Therapy; Mutation Factor V Leiden Heterozygous (HCC); Monitoring For Therapeutic Drug Therapy; Hypertension Essential Primary Social History Tobacco Use Types Packs/Day Years [...] How often do you attend restorationism or synagogue serv ices? Never 07/09/2022 Do [...] Answer Date Recorded PHQ-2 Score 0 06/12/2023 [facility] - Occupational Stress [...] file Gender Identity Male 07/02/2017 9:12 AM [employer] P[employer] Sexual Orientation Straight 07/02/2017 9: 12 AM [employer] P[employer] documented as of this encounter Patient Instructions * Patient Instructions* Emma Seth R.N. - 09/20/2023 11:00 AM CDT Your next INR will be in 3 weeks. You will need to call the Anticoagulation Program for warfarin dosing at the scheduled time for your nurse visit, as indicated on your Patient Appointment Guide (PAG). To reschedule your appointment or for questions about your warfarin, please call Primary Care Anticoagulation Program at [phone] from 7:30 am to 4:30 pm. Saturday-Saturday [...] if you start any herbal or other [id number] product (check with your doctor, a nurse, or pharmacist). If you change your diet significantly. If you decide to stop or start using tobacco or alcohol. If you notice unusual bruising or bleeding. If you notice dark, tarry, or bright red stools or blood in your urine. If you have a painful and swollen calf. documented in this encounter Progress Notes * Emma Seth R.N. - 09/20/2023 11:00 AM CDT Warfarin Maintenance Nursing Protocol Goal Range 2.0-3.0 (version approved 07/2021) Visit Type: Telephone Primary reason for visit: Routine f/u OR f/u per previous visit recommendations Information provided by:patient INR result: 2.3 Goal range: 2.0-3.0 Inclusion Criteria: All inclusion [...] above stating consult required. Consulted Anticoagulation [facility] for plan. Currently bridging: no. INR is therapeutic/supratherapeutic. Additional dosing or follow-up information: Provider consulted: Essie Harris- Anticoagulation [facility] Pt is on injectable [...] CDT Appointment Department of Laboratory Medicine in [address] [phone] Stefan Salomon M.D. [address] [phone] 10/11/2023 9:30 AM CDT Anticoagulation Visit Department of Anticoagulation in [place], [place] [address] [place] [phone] Stefan Salomon M.D. [phone] [place] [phone] 10/23/2023 4:15 PM CDT Clinical Communication Virtual Review in [place], [place] [address] [place] [phone] 10/24/2023 2:00 PM CDT Office Visit Department of Dermatology in [place], [place] [address] [place] [phone] Lucy Euceda M.D. [address] [place] [phone] Scheduled Orders Name Type Priority Associated Diagnoses Orde r Schedule INR Reflex, POCT, Blood Point of Care Testing-Docked Device Routine Anticoagulant Therapy Mutation Factor V Leiden Heterozygous (HCC) Monitoring For Therapeutic Drug Therapy Thrombosis Deep Vein Personal History Expected: 10/11/2023, Expires: 12/19/2024 documented as of this encounter Visit Diagnoses Diagnosis Thrombosis Deep Vein Personal History- Primary Anticoagulant Therapy Mutation Factor V Leiden Heterozygous (HCC) Monitoring For Therapeutic Drug Therapy Hypertension Essential Primary documented in this encounter Additional Health Concerns Assessment Noted Time PHQ-9 Depression Total Score: 1 06/12/19 24 4:14 PM [employer] P[employer] documented as of this encounter Care Teams Cashier Greeter Relationship Specialty Start Date End Date Stefan Salomon M.D. [address] [place] [phone] PCP - General Family Medicine 07/09/22 Anticoagulation Team 07/09/22 documented as of this encounter
--- OUTSIDE RECORDS SUMMARY | 2023-10-01 07:59 | XMS_ITS | Encounter Summary ---
Author Name Unknown Organization [facility] Address [address] [place] [address] Care Team Providers Care Ordnance Mechanic Name Role Phone Stefan Salomon M.D. Primary Care Provider [phone] Reason for Visit * Reason Comments Med Refill Encounter Details Date Type Department Care Team (Late st Contact Info) Description 09/24/2023 Refill Department of Family Medicine, [facility], in [address] [phone] Stefan Salomon M.D. [address] [place] [phone] Med Refill Social History Tobacco Use [...] How often do you attend jainism or hinduism serv ices? 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 - 09/24/2023 10:23 AM CDT Warfarin Prescription Refill Protocol (v. 04/22/2020) Inclusion Criteria: All inclusion criteria met. Proceeded to exclusion criteria. Exclusion Criteria: No exclusion criteria, proceeded to screening criteria. Screening Criteria: Patient has Anticoagulation Monitoring Consult with Authorized status. Proceeded to warfarin prescription renewal-section 1. Plan: Per warfarin prescription renewal-section 1: Warfarin prescription renewed for duration of 1 year * Telephone Encounter - Karyna Vega - 09/24/2023 9:36 AM CDT Images from the original note were not included. Nurse review: Med Refill Team is unable to forward request to provider. Anticoagulation Medication Primary Provider: Stefan Salomon M.D. documented in this encounter Plan of Treatment Upcoming Encounters Date Type Department Care Team (Latest Contact Info) Description 10/11/2023 8:50 AM CDT Appointment Department of Laboratory Medicine in [address] [phone] Stefan Salomon M.D. [address] [place] [phone] 10/11/2023 9:30 AM CDT Anticoagulation Visit Department of Anticoagulation in [address] [phone] Stefan Salomon M.D. [address] [place] [phone] 10/23/2023 4:15 PM CDT Clinical Communication Virtual Review in [place], [place] [address] [place] [phone] 10/24/2023 2:00 PM CDT Office Visit Department of Dermatology in [place], [place] [address] [place] [phone] Lucy Euceda M.D. [address] [place] [phone] documented as of this encounter Visit Diagnoses Diagnosis Anticoagulant Therapy Mutation Factor V Leiden Heterozygous (HCC) Monitoring For Therapeutic Drug Therapy Thrombosis Deep Vein Personal History documented in this encounter Additional Health Concerns Assessment Noted Time PHQ-9 Depression Total Score: 1 06/12/19 24 4:14 PM PITCH WORKER documented as of this encounter Care Teams Ordnance Mechanic Relationship Specialty Start Date End Date Stefan Salomon M.D. [address] [phone] PCP - General Family Medicine 07/09/22 Anticoagulation Team 07/09/22 documented as of this encounter
--- OUTSIDE RECORDS SUMMARY | 2023-10-01 07:59 | XMS_ITS | Clinical Summary ---
Author Name Unknown Organization [facility] Address [address] [place] [address] Care Team Providers Care Geothermal Powerplant Mechanic Name Role Phone Stefan Salomon M.D. Primary Care Provider [phone] Source Comments Patient records contain information from all sites at [facility]. For routine questions regarding patient records, call [phone] during business hours, M-F 8:00 AM - 5:00 PM Central Time. Record requests for emergency care only can be directed to [phone] at any time.[facility] Allergies Active Allergy Reactions Criticality Noted Date Comments Atorvastatin Myalgia 02/08/2017 Leg Pain/Cramps Memgbfa-Jfh-Xdg Reductase Inhibitors Other (see comments) 09/10/2022 Medications [...] Limb Generalized 11/18/2011 Overview: Saw Neurologist at [facility] on 09/16/2009. MRI lumbar spine done on [...] Description 09/24/2023 Refill Department of Family Medicine, [facility], in [address] [phone] Stefan Salomon M.D. Med Refill 09/20/2023 11:00 AM CDT Anticoagulation Visit Department of Anticoagulation in [place] [address] [place] [address] Stefan Salomon M.D. Thrombosis Deep Vein Personal History (Primary Dx); Anticoagulant Therapy; Mutation Factor V Leiden Heterozygous (HCC); Monitoring For Therapeutic Drug Therapy; Hypertension Essential Primary 09/20/2023 7:10 AM CDT - 09/20/2023 11:59 PM CDT Hospital Encounter Department of Laboratory Medicine in [address] [phone] Stefan Salomon M.D. Anticoagulant Therapy; Mutation Factor V Leiden Heterozygous (HCC); Monitoring For Therapeutic Drug Therapy; Thrombosis Deep Vein Personal History Discharge Disposition: Home or Self Care 09/13/2023 9:30 AM CDT Anticoagulation Visit Department of Anticoagulation in [address] [address] Stefan Salomon M.D. Anticoagulant Therapy; Mutation Factor V Leiden Heterozygous (HCC); Monitoring For Therapeutic Drug Therapy; Thrombosis Deep Vein Personal History 09/13/2023 7:10 AM CDT - 09/13/2023 11:59 PM CDT Hospital Encounter Department of Laboratory Medicine in [address] [address] Stefan Salomon M.D. Anticoagulant Therapy [Z79.01]; Mutation Factor V Leiden Heterozygous (HCC); Monitoring For Therapeutic Drug Therapy [Z51.81]; Thrombosis Deep Vein Personal History Discharge Disposition: Home or Self Care 09/03/2023 Refill Department of Family Medicine, [facility], in [address] [address] Nicholas Olsen M.D., Ph.D. Med Refill 08/23/2023 9:30 AM CDT Anticoagulation Visit Department of Anticoagulation in [address] [address] Stefan Salomon M.D. Mutation Factor V Leiden Heterozygous (HCC) (Primary Dx); Anticoagulant Therapy [Z79.01]; Monitoring For Therapeutic Drug Therapy [Z51.81]; Thrombosis Deep Vein Personal History 08/23/2023 7:35 AM CDT - 08/23/2023 11:59 PM CDT Hospital Encounter Department of Laboratory Medicine in [address] [address] Stefan Salomon M.D. Anticoagulant Therapy [Z79.01]; Mutation Factor V Leiden Heterozygous (HCC); Monitoring For Therapeutic Drug Therapy [Z51.81]; Thrombosis Deep Vein Personal History Discharge Disposition: Home or Self Care 08/06/2023 Refill Department of Family Medicine, [facility], in [address] [address] Stefan Salomon M.D. Med Refill 08/02/2023 9:30 AM PARTS EXPEDITER Anticoagulation Visit Department of Anticoagulation in [address] [address] Stefan Salomon M.D. Anticoagulant Therapy [Z79.01]; Mutation Factor V Leiden Heterozygous (HCC); Monitoring For Therapeutic Drug Therapy [Z51.81]; Thrombosis Deep Vein Personal History 08/02/2023 7:27 AM PARTS EXPEDITER - 08/02/2023 11:59 PM PARTS EXPEDITER Hospital Encounter Department of Laboratory Medicine in [address] [address] Stefan Salomon M.D. Anticoagulant Therapy [Z79.01]; Mutation Factor V Leiden Heterozygous (HCC); Monitoring For Therapeutic Drug Therapy [Z51.81]; Thrombosis Deep Vein Personal History Discharge Disposition: Home or Self Care 07/25/2023 3:40 PM PARTS EXPEDITER Office Visit Department of Dermatology in [place], [place] [address] [facility] [address] [place] [address] Crystal Quintero M.D. Pruritus (Primary Dx); Keratosis Seborrheic Inflamed [L82.0] 07/19/2023 2:30 PM PARTS EXPEDITER Clinical Communication Virtual Review in [address] [address] Pre-visit Intake 07/16/2023 Refill Department of Family Medicine, [facility], in [address] [phone] Stefan Salomon M.D. Med Refill 07/09/2023 Orders Only [facility] Stefan Salomon M.[facility]. 07/03/2023 Refill Department of Family Medicine, [facility], in [address] [phone] Stefan Salomon M.D. Med Refill from Last 3 Months Immunizations Name Administration [...] How often do you attend uatsdin or sabianism serv ices? Never 07/09/2022 Do [...] Answer Date Recorded PHQ-2 Score 0 06/12/2023 [facility] [place] of Occupat ional Health - Occupational Stress [...] Gender Identity Male 07/02/2017 9:12 AM PARTS EXPEDITER Sexual Orientation Straight 07/02/2017 9: 12 AM PARTS EXPEDITER Last Filed Vital Signs Vital Sign Reading Time Taken Comments Blood Pressure 148/82 06/12/2023 4:23 PM PARTS EXPEDITER Pulse 63 06/12/2023 4:23 PM PARTS EXPEDITER Temperature 36.6 ??C (97.9 ??F) 06/12/2023 4:23 PM CS T Respiratory Rate 18 06/12/2023 4:23 PM PARTS EXPEDITER Oxygen Saturation 94% 06/12/2023 4:23 PM PARTS EXPEDITER Inhaled Oxygen Concentration - - Weight 95.6 kg (210 lb 12.2 oz) 06/12/2023 4:23 PM PARTS EXPEDITER Height 176.5 cm (5' 9.49) 08/01/2022 9:59 AM CS T Body Mass Index 30.69 08/01/2022 9:59 AM PARTS EXPEDITER Plan of Treatment Upcoming Encounters Date Type Department Care Team (Latest Contact Info) Description 10/11/2023 8:50 AM CDT Appointment Department of Laboratory Medicine in [address] [phone] Stefan Salomon M.D. [address] [place] [phone] 10/11/2023 9:30 AM CDT Anticoagulation Visit Department of Anticoagulation in [address] [phone] Stefan Salomon M.D. [address] [place] [phone] 10/23/2023 4:15 PM CDT Clinical Communication Virtual Review in [place], [place] [address] [place] [address] 10/24/2023 2:00 PM CDT Office Visit Department of Dermatology in [place], [place] [address] [place] [phone] Lucy Euceda M.D. [address] [place] [phone] Health Maintenance Due Date Last Done Comments CT Colonography 1948 Cologuard 1950 Zoster Vaccines (1 of 2) 1998 Colonoscopy 12/28/2019 12/27/2014 Colorectal Cancer Surveillance 12/28/2019 Visit: Medicare Annual Wellness 07/10/2023 3 Opioid Risk Tool (ORT) 08/07/2023 07/09/2022 Office Visit for Blood Press ure Check / Re-check 09/11/2023 06/12/2023 PEG assessment for Opioid therapy 09/11/2023 024 COVID-19 Vaccine (2022-2 4 season) 2023 05/23/2023, 04/21/2022, 04/14/2021, Additional history exists Controlled Substance Monitoring 02/24/2024 3 Creatinine Level [...] Completed 04/02/2023, , 04/20/2021, Additional history exists Depression Screening (Annual PHQ-2) Completed 06/12/2023 Fall Risk Screen (Annual) Completed 06/12/2023 Medical Devices Implanted Type Area Records Management Director Device Identifier Shelf Expiration Date Model / Serial / Lot Mineralized Cancellous Bone 2.0 - Anne [id number] Implanted:Qty: 1 on 08/10/2015 Bone or Tissue Tooth [employer] Description:Device Manufactu rer - [employer]. Body Location - Other. tooth-13. Device Status Text - [id number]. Hardware E.G. Pins/Screws/Rk s Hardware e.g. pins/screws /rods Mouth Abutment Nobrpl Rp 4.3x5 - Anne [id number] Implanted:Qty: 1 on 07/03/2007 Hardware e.g. pins/screws /rods Tooth [employer] Description:Device Manufactu rer - [employer]. Body Location - Tooth 5. Device Status Text - [id number]. Screw Rst Curly Taper Rp 4.3x13.0 - Anne [id number] Implanted:Qty: 1 on 07/03/2007 Hardware e.g. pins/screws /rods Tooth [employer] Description:Device Manufactu rer - [employer]. Body Location - Tooth 5. Device Status Text - [id number]. Screw Nobrpl Curly Tap Outbound Supervisor 3.5x11.5 - Anne [id number] Implanted:Qty: 1 on 03/03/2012 Hardware e.g. pins/screws /rods Tooth [employer] Description:Device Manufactu rer - [employer]. Body Location - Tooth 29. Device Status Text - [id number]. Abutment Nobrpl Outbound Supervisor 3.5x5 - Anne [id number] Implanted:Qty: 1 on 03/03/2012 Hardware e.g. pins/screws /rods Tooth [employer] Description:Device Manufactu rer - [employer]. Body Location - Tooth 29. Device Status Text - [id number]. Abutment Nobrpl Outbound Supervisor 3.5x3 - Anne [id number] Implanted:Qty: 1 on 08/23/2014 Hardware e.g. pins/screws /rods Tooth [employer] Description:Device Manufactu rer - [employer]. Body Location - Other. tooth- 28. Device Status Text - [id number]. Abutment Nobrpl Outbound Supervisor 3.5x3 - Anne [id number] Implanted:Qty: 1 on 08/23/2014 Hardware e.g. pins/screws /rods Tooth [employer] Description:Device Manufactu rer - [employer]. Body Location - Other. tooth- 28. Device Status Text - [id number]. Screw Nobrpl Curly Taper Outbound Supervisor 3.5x13.0 - Anne [id number] Implanted:Qty: 1 on 08/23/2014 Hardware e.g. pins/screws /rods Tooth [employer] Description:Device Manufactu rer - [employer]. Body Location - Other. tooth- 28. Device Status Text - [id number]. Screw Nobrpl Curly Taper Rp 4.3x10.0 - Anne [id number] Implanted:Qty: 1 on 08/10/2015 Hardware e.g. pins/screws /rods Tooth [employer] Description:Device Manufactu rer - [employer]. Body Location - Other. tooth- 20. Device Status Text - [id number]. Brane Fix Rst Tiunite Rp 4.3 X 13.0 - Anne [id number] Implanted:Qty: 1 on 08/10/2015 Hardware e.g. pins/screws /rods Tooth [employer] Description:Device Manufactu rer - [employer]. Body Location - Other. tooth- 21. Device Status Text - [id number]. Brane Fix Rst Tiunite Rp 4.3 X 13.0 - Anne [id number] Implanted:Qty: 1 on 08/10/2015 Hardware e.g. pins/screws /rods Tooth [employer] Description:Device Manufactu rer - [employer]. Body Location - Other. tooth- 13. Device Status Text - [id number]. Brane Fix Rst Tiunite Rp 4.3 X 13.0 - Anne [id number] Implanted:Qty: 1 on 08/10/2015 Hardware e.g. pins/screws /rods Tooth [employer] Description:Device Manufactu rer - [employer]. Body Location - Other. tooth- 11. Device Status Text - [id number]. Abutment Nobrpl Rp 4.3x3 - Anne [id number] Implanted:Qty: 1 on 02/08/2016 Hardware e.g. pins/screws /rods Tooth [employer] Description:Device Manufactu rer - [employer]. Body Location - Other. tooth- 20. Device Status Text - [id number]. Abutment Nobrpl Rp 5.3x3 - Anne [id number] Implanted:Qty: 1 on 02/08/2016 Hardware e.g. pins/screws /rods Tooth [employer] Description:Device Manufactu rer - [employer]. Body Location - Other. tooth- 13. Device Status Text - [id number]. Abutment Nobrpl Rp 4.3x3 - Anne [id number] Implanted:Qty: 1 on 02/08/2016 Hardware e.g. pins/screws /rods Tooth [employer] Description:Device Manufactu rer - [employer]. Body Location - Other. tooth- 21. Device Status Text - [id number]. Abutment Nobrpl Rp 4.3x3 - Anne [id number] Implanted:Qty: 1 on 02/08/2016 Hardware e.g. pins/screws /rods Tooth [employer] Description:Device Manufactu rer - [employer]. Body Location - Other. tooth- 11. Device Status Text - [id number]. Patch Dura-Guard 4x 4 - Anne [id number] Implanted:Qty: 1 on 08/19/1996 Mesh or Patch [employer] Description:Device Manufactu rer - [employer]. Device Status Text - MESHPATCH-[id number]. Allograft Bioxclude Chorion 1cm X 2.5cm - Anne [id number] Implanted:Qty: 1 on 01/15/2014 Mesh or Patch Tooth Unknown Description:Device Manufactu rer - Unknown. Body Location - tooth-28. Device Status Text - [id number]. Allograft Bioxclude Chorion 1cm X 2.5cm - Anne [id number] Implanted:Qty: 1 on 01/15/2014 Mesh or Patch Tooth Unknown Description:Device Manufactu rer - Unknown. Body Location - tooth-5. Device Status Text - Cord ProjectPATCH-[id number]. Allograft Bioxclude Chorion 1.5cm X 2cm - Anne [id number] Implanted:Qty: 1 on 08/10/2015 Mesh or Patch Other/Legacy - See Implant Description Unknown Description:Device Manufactu rer - Unknown. Body Location - Other. Left. Device Status Text - Cord ProjectPATCH-[id number]. Procedures Procedure Name Priority Date/Time Associated Diagnosis [...] POCT, B Routine 08/02/2023 7 :35 AM PARTS EXPEDITER Anticoagulant Therapy [Z79.01] Mutation Factor V Leiden Heterozygous (HCC) Monitoring For Therapeutic Drug Therapy [Z51.81] Thrombosis Deep Vein Personal History LIPID PANEL, S Routine 04/19/2023 7:39 AM PARTS EXPEDITER Hyperlipidemia BASIC METABOLIC PANEL, S/P Routine 04/19/2023 7:39 AM PARTS EXPEDITER Hypertension Essential Primary HCV AB SCRN W/REFLEX TO HCV PCR, S Routine 06/15/2016 9:01 AM PARTS EXPEDITER COLONOSCOPY Routine 12/27/2014 US AORTA Routine 11/09/2014 [...] Generic Rals LAB POCT ORDERABLES - DEVICE [facility] [address] [place] [address], [facility] [place] [address] * Lipid Panel (04/19/2023 7:39 AM PARTS EXPEDITER) Triglycerides 113 mg/dL 04/19/2023 11:48 AM PARTS EXPEDITER CNFL Comment: ----REFERENCE VALUE---- Normal: <150 mg/dL Borderline High: 150-199 mg/dL High: 200-499 mg/dL Very High: > or =500 mg/dL Cholesterol, Total 144 mg/dL 2022 11:48 AM PARTS EXPEDITER CNFL Comment: ----REFERENCE VALUE---- Desirable: < 200 mg/dL Borderline High: 200 - 239 mg/dL High: > or = 240 mg/dL Cholesterol, LDL, Calculated 76 mg/dL 04/19/2023 12:10 PM PARTS EXPEDITER CNFL Comment: ----REFERENCE VALUE---- Desirable: <100 mg/dL Above Desirable: 100-129 mg/dL Borderline High: 130-159 mg/dL High: 160-189 mg/dL Very High: >=190 mg/dL ----ADDITIONAL INFORMATION---- LDL cholesterol calculated using the Sosa/NIH equation. Cholesterol, HDL 48 >=40 mg/dL 04/19/20 12:10 PM PARTS EXPEDITER CNFL Cholesterol, Non-HDL, Calculated 96 mg/dL 04/19/2023 12:10 PM PARTS EXPEDITER CNFL Comment: ----REFERENCE VALUE---- Desirable: <130 mg/dL Above Desirable: 130-159 mg/dL Borderline High: 160-189 mg/dL High: 190-219 mg/dL Very High: > or =220 mg/dL Fasting (8 HR or more) No 04/19/2023 7:40 AM PARTS EXPEDITER CNFL Blood (Blood, Venous) 04/19/2023 7:39 AM PARTS EXPEDITER 04/19/2023 7:40 AM PARTS EXPEDITER Stefan Salomon M.D. LAB BLOOD ADD-ON [facility] [address] [place] [address], [facility] CNFL [facility] [place] [address] * Basic Metabolic Panel (04/19/2023 7:39 AM PARTS EXPEDITER) Potassium, P 4.1 3.6 - 5.2 mmol/L 04/19/2023 11:48 AM PARTS EXPEDITER CNFL Sodium, P 138 135 - 145 mmol/L 04/19/2023 11:48 AM PARTS EXPEDITER CNFL Chloride, P 102 98 - 107 mmol/L 04/19/2023 11:48 AM PARTS EXPEDITER CNFL Bicarbonate, P 23 22 - 29 mmol/L 04/19/2023 11:48 AM PARTS EXPEDITER CNFL Anion Gap, P 13 7 - 15 04/19/2023 11:48 AM PARTS EXPEDITER CNFL BUN (Blood Urea Nitrogen), P 21 8 - 24 mg/dL 04/19/2023 11:48 AM PARTS EXPEDITER CNFL Creatinine 0.87 0.74 - 1.35 mg/dL 04/19/2023 11:48 AM PARTS EXPEDITER CNFL Estimated GFR (eGFR) >90 >=60 mL/min/BSA 04/19/2023 11:48 AM PARTS EXPEDITER CNFL Comment: Estimated GFR calculated using the 2020 CKD_EPI creatinine equation. Calcium, Total, P 9.1 8.8 - 10.2 mg/dL 04/19/2023 11:48 AM PARTS EXPEDITER CNFL Glucose, P 103 70 - 140 mg/dL 04/19/2023 11:48 AM PARTS EXPEDITER CNFL Blood (Blood, Venous) 04/19/2023 7:39 AM PARTS EXPEDITER 04/19/2023 7:40 AM PARTS EXPEDITER Stefan Salomon M.D. LAB BLOOD ADD-ON [facility] [address] [place] [id number], [facility] CNFL [facility] in [address] [place] [address] * HCV Ab w/Reflex to HCV PCR, S (medicare) (06/15/2016 9:01 AM PARTS EXPEDITER) HXHCV Ab [facility] Reactive Negative POWERCHART Comment: Supplemental testing for HCV RNA is ordered to rule out active HCV infection. Gmjtgl-tk-vkihyn ratio is >=1.00 and <8.00. Test Performed by: [place] [address] Buffer Nickel: Armando Chavez II, M.D., Ph.D. Blood 06/15/2016 9:01 AM PARTS EXPEDITER Abraham Valle M.D. LAB MICROBIOLOGY - B [...] aorta Narrative 11/09/2014 9:32 AM CDT EXAM: US AAA Screening Welcome Medicare INDICATION: Welcome to Medicare, tobacco use, HTN COMPARISON: None. FINDINGS: No evidence for abdominal aortic aneurysm. Maximum luminal diameter 2.2 CM. Iliac arteries are unremarkable. Procedure Note Kike Davidson D.O. / ProviderDesiree M.D. - 10/10/2016 EXAM: US AAA Screening Welcome Medicare INDICATION: Welcome to Medicare, tobacco use, HTN COMPARISON: None. FINDINGS: No evidence for abdominal aortic aneurysm. Maximum luminal diameter 2.2 CM. Iliac arteries are unremarkable. IMPRESSION: Normal abdominal aorta Sulaiman Ordaz Jr., R.D.M.S. IMG US PROCEDURES from Last 3 Months or Most Recently Relevant to Health Maintenance Care Teams Geothermal Powerplant Mechanic Relationship Specialty Start Date End Date Stefan Salomon M.D. [address] [phone] PCP - General Family Medicine 07/09/22 Anticoagulation Team 07/09/22
--- OUTSIDE RECORDS SUMMARY | 2023-10-01 08:00 | XMS_ITS | Encounter Summary ---
Author Name Unknown Organization [facility] Address [address] [place] [address] Care Team Providers Care Store Gift Wrap Associate Name Role Phone Stefan Salomon M.D. Primary Care Provider [phone] Reason for Visit * Reason Comments Med Refill Encounter Details Date Type Department Care Team (Late st Contact Info) Description 08/06/2023 Refill Department of Family Medicine, [facility], in [address] [phone] Stefan Salomon M.D. [address] [place] [phone] Med Refill Social History Tobacco Use [...] How often do you attend yazidism or yarsanism serv ices? Never 07/09/2022 Do [...] Answer Date Recorded PHQ-2 Score 0 06/12/2023 [facility] of Occupat ional [...] file Gender Identity Male 07/02/2017 9:12 AM BATTERY HAND Sexual Orientation Straight 07/02/2017 9: 12 AM BATTERY HAND documented as of this encounter Miscellaneous Notes * Telephone Encounter - Rachel Llamas L.PCotyN. - 08/07/2023 12:22 PM BATTERY HAND Controlled substance renewal for Tramadol 50 mg: No nursing concerns Renewal is pended per the controlled substance prescribing plan located in synopsis Date last renewed (start date): 07/05/23 Last provider visit: 06/12/23 Last urine drug screen: 02/21/23 ; Next due: 02/22/24 Screenings due: current Next provider visit due: 12/11/23 Chronic Opioid therapy agreement last reviewed/signed: 06/12/23 This prescription may be filled on 08/07/23, and next renewal may be on or after 09/06/23 ERY HAND * Telephone Encounter - Brenda Fitzgerald - 08/06/2023 10:20 AM CST Images from the original note were not included. Nurse review: Med Refill Team is unable to forward request to provider; Controlled Substance, CSA Primary Provider: Stefan Salomon M.D. ERY HAND documented in this encounter Plan of Treatment Upcoming Encounters Date Type Department Care Team (Latest Contact Info) Description 10/11/2023 8:50 AM CDT Appointment Department of Laboratory Medicine in [address] [phone] Stefan Salomon M.D. [address] [place] [phone] 10/11/2023 9:30 AM CDT Anticoagulation Visit Department of Anticoagulation in [place], [place] [address] [place] [phone] Stefan Salomon M.D. [address] [place] [phone] 10/23/2023 4:15 PM CDT Clinical Communication Virtual Review in [place], [place] 200 [place] [address] 10/24/2023 2:00 PM CDT Office Visit Department of Dermatology in [place], [place] [address] [place] [phone] Lucy Euceda M.D. [address] [place] [phone] documented as of this encounter Visit Diagnoses Diagnosis Chronic Pain Syndrome Degeneration Disc Cervical Polyarthralgia documented in this encounter Additional Health Concerns Assessment Noted Time PHQ-9 Depression Total Score: 1 06/12/19 24 4:14 PM BATTERY HAND documented as of this encounter Care Teams Store Gift Wrap Associate Relationship Specialty Start Date End Date Stefan Salomon M.D. [address] [place] [phone] PCP - General Family Medicine 07/09/22 Anticoagulation Team 07/09/22 documented as of this encounter
--- OUTSIDE RECORDS SUMMARY | 2023-10-01 08:00 | XMS_ITS | Encounter Summary ---
Author Name Unknown Organization [facility] Address [address] [place] [address] Care Team Providers Care Preschool Assistant Principal Name Role Phone Stefan Salomon M.D. Primary Care Provider [phone] Reason for Visit * Outpatient (Routine) - Authorized Specialty Diagnoses / Procedures Referred By Contdayana t Referred To Contact Anticoagulation Diagnoses Anticoagulant Therapy Mutation Factor V Leiden Heterozygous (HCC) Monitoring For Therapeutic Drug Therapy Thrombosis Deep Vein Personal History Stefan Salomon M.D. [address] [phone] [facility] Referral ID Status Reason Start Date Expiration Date V isits Requested Visits Authorized [id number] Authorized 02/01/2023 01/31/2026 300 300 Encounter Details Date Type Department Care Team (Latest Contact Info) Description 08/23/2023 9:30 AM CDT Anticoagulation Visit Department of Anticoagulation in [place], [place] [address] [place] [address] Stefan Salomon M.D. [address] [place] [phone] Mutation Factor V Leiden Heterozygous (HCC) (Primary [...] How often do you attend zoroastrian or advent serv ices? Never 07/09/2022 Do [...] Answer Date Recorded PHQ-2 Score 0 06/12/2023 [facility] [place] of Occupat ional Health - Occupational Stress [...] file Gender Identity Male 07/02/2017 9:12 AM WELCOME DESK AGENT Sexual Orientation Straight 07/02/2017 9: 12 AM WELCOME DESK AGENT documented as of this encounter Patient Instructions * Patient Instructions* Ely Orona M.S.N., R.N. - 08/23/2023 9:30 AM CDT Your next INR will be 3 weeks. You will need to call the Anticoagulation Program for warfarin dosing at the scheduled time for your nurse visit, as indicated on your Patient Appointment Guide (PAG). To reschedule your appointment or for questions about your warfarin, please call Primary Care Anticoagulation Program at [phone] from 7:30 am to 4:30 pm. Saturday-Saturday [...] if you start any herbal or other tlvw-khn-jjtaufs product (check with your doctor, a nurse, or pharmacist). If you change your diet significantly. If you decide to stop or start using tobacco or alcohol. If you notice unusual bruising or bleeding. If you notice dark, tarry, or bright red stools or blood in your urine. If you have a painful and swollen calf. documented in this encounter Progress Notes * Ely Orona M.S.N., R.N. - 08/23/2023 9:30 AM CDT Warfarin Maintenance Nursing Protocol [...] maintenance warfarin dosing and follow-up Additional Info: Reminded to call for result after POC Previous INR was therapeutic. Today???s INR is Supratherapeutic, Causes: Unknown and pt requested dose increase at visit on 08/02/23 . Dosing and follow up recommendation: Protocol dosing [...] CDT Appointment Department of Laboratory Medicine in [address] [place] [phone] Stefan Salomon M.D. [address] [place] [phone] 10/11/2023 9:30 AM CDT Anticoagulation Visit Department of Anticoagulation in [place], [place] [address] [place] [phone] Stefan Salomon M.D. [address] [place] [phone] 10/23/2023 4:15 PM CDT Clinical Communication Virtual Review in [place], [place] 200 [place] [address] 10/24/2023 2:00 PM CDT Office Visit Department of Dermatology in [place], [place] [address] [place] [phone] Lucy Euceda M.D. [address] [place] [phone] documented as of this encounter Visit Diagnoses Diagnosis Mutation Factor V Leiden Heterozygous (HCC)- Primary Anticoagulant Therapy [Z79.01] Monitoring For Therapeutic Drug Therapy [Z51.81] Thrombosis Deep Vein Personal History documented in this encounter Additional Health Concerns Assessment Noted Time PHQ-9 Depression Total Score: 1 06/12/19 24 4:14 PM WELCOME DESK AGENT documented as of this encounter Care Teams Preschool Assistant Principal Relationship Specialty Start Date End Date Stefan Salomon M.D. [address] [place] [phone] PCP - General Family Medicine 07/09/22 Anticoagulation Team 07/09/22 documented as of this encounter
--- OUTSIDE RECORDS SUMMARY | 2023-10-01 08:00 | XMS_ITS | Encounter Summary ---
Author Name Unknown Organization [facility] Address [address] [place] [address] Care Team Providers Care Rheumatologist Name Role Phone Stefan Salomon M.D. Primary Care Provider [phone] Reason for Visit * Outpatient (Routine) - Authorized Specialty Diagnoses / Procedures Referred By Contdayana t Referred To Contact Anticoagulation Diagnoses Anticoagulant Therapy Mutation Factor V Leiden Heterozygous (HCC) Monitoring For Therapeutic Drug Therapy Thrombosis Deep Vein Personal History Stefan Salomon M.D. [address] [phone] [facility] Referral ID Status Reason Start Date Expiration Date V isits Requested Visits Authorized [id number] Authorized 02/01/2023 01/31/2026 300 300 Encounter Details Date Type Department Care Team (Latest Contact Info) Description 09/13/2023 9:30 AM CDT Anticoagulation Visit Department of Anticoagulation in [place], [place] [address] [place] [address] Stefan Salomon M.D. [address] [place] [phone] Anticoagulant Therapy; Mutation Factor V Leiden Heterozygous [...] How often do you attend faith or yazidi serv ices? Never 07/09/2022 Do [...] Answer Date Recorded PHQ-2 Score 0 06/12/2023 [facility] [place] of Occupat ional Health - Occupational Stress [...] file Gender Identity Male 07/02/2017 9:12 AM CHEMICAL LABORATORY SCIENTIST Sexual Orientation Straight 07/02/2017 9: 12 AM CHEMICAL LABORATORY SCIENTIST documented as of this encounter Patient Instructions * Patient Instructions* Pippa Morales R.N. - 09/13/2023 9:30 AM CDT Your next INR will be 09/20/23. You will need to call the Anticoagulation Program for warfarin dosing at the scheduled time for your nurse visit, as indicated on your Patient Appointment Guide (PAG). To reschedule your appointment or for questions about your warfarin, please call Primary Care Anticoagulation Program at [phone] from 7:30 am to 4:30 pm. Saturday-Saturday [...] if you start any herbal or other unxk-kry-zimpxsp product (check with your doctor, a nurse, [...] Progress Notes * Pippa Morales R.N. - 09/13/2023 9:30 AM CDT Warfarin Maintenance Nursing Protocol Goal Range 2.0-3.0 (version approved 07/2021) Visit Type: Telephone Primary reason for visit: Routine f/u OR f/u per previous visit recommendations Information provided by:patient INR result: 3.7 Goal range: 2.0-3.0 Inclusion Criteria: All inclusion [...] was supratherapeutic. Today???s INR is Supratherapeutic, Causes: See above positive screening criteria/additional information sections.. Dosing and follow up recommendation: Protocol dosing range for INR 3.6-4: 2nd consecutive INR above goal range. INR is trending up from last INR. Decrease last 7 days by 15% per protocol. Next INR in 5-7 days. Additional dosing or follow-up information: None. [...] CDT Appointment Department of Laboratory Medicine in [address] [phone] Stefan Salomon M.D. [address] [place] [phone] 10/11/2023 9:30 AM CDT Anticoagulation Visit Department of Anticoagulation in [place], [place] [address] [place] [phone] Stefan Salomon M.D. [address] [place] [phone] 10/23/2023 4:15 PM CDT Clinical Communication Virtual Review in [place], [place] [address] [place] [phone] 10/24/2023 2:00 PM CDT Office Visit Department of Dermatology in [place], [place] [address] [place] [phone] Lucy Euceda M.D. [address] [place] [phone] documented as of this encounter Visit Diagnoses Diagnosis Anticoagulant Therapy Mutation Factor V Leiden Heterozygous (HCC) Monitoring For Therapeutic Drug Therapy Thrombosis Deep Vein Personal History documented in this encounter Additional Health Concerns Assessment Noted Time PHQ-9 Depression Total Score: 1 06/12/19 24 4:14 PM CHEMICAL LABORATORY SCIENTIST documented as of this encounter Care Teams Rheumatologist Relationship Specialty Start Date End Date Stefan Salomon M.D. [address] [place] [phone] PCP - General Family Medicine 07/09/22 Anticoagulation Team 07/09/22 documented as of this encounter
--- OUTSIDE RECORDS SUMMARY | 2023-10-01 08:00 | XMS_ITS | Encounter Summary ---
Author Name Unknown Organization [facility] Address [address] [place] [address] Care Team Providers Care Ob/Gyn Nurse Name Role Phone Stefan Salomon M.D. Primary Care Provider [phone] Reason for Visit * Reason Onset Date Comments Pre-visit Intake 07/19/2023 Encounter Details Date Type Department Care Team (Latest Contact Info) Description 07/19/2023 2:30 PM LOGGING CREW FOREMAN Clinical Communication Virtual Review in [place], [place] 200 [place] [phone] Pre-visit Intake Social History Tobacco Use Types [...] Answer Date Recorded PHQ-2 Score 0 06/12/2023 [facility] of Occupat [...] file Gender Identity Male 07/02/2017 9:12 AM LOGGING CREW FOREMAN Sexual Orientation Straight 07/02/2017 9: 12 AM LOGGING CREW FOREMAN documented as of this encounter Plan of Treatment Upcoming Encounters Date Type Department Care Team (Latest Contact Info) Description 10/11/2023 8:50 AM CDT Appointment Department of Laboratory Medicine in [address] [phone] Stefan Salomon M.D. [address] [place] [phone] 10/11/2023 9:30 AM CDT Anticoagulation Visit Department of Anticoagulation in [place], [place] [address] [place] [address] Stefan Salomon M.D. [address] [place] [phone] 10/23/2023 4:15 PM CDT Clinical Communication Virtual Review in [place], [place] [address] [place] [phone] 10/24/2023 2:00 PM CDT Office Visit Department of Dermatology in [place], [place] [address] [place] [phone] Lucy Euceda M.D. [address] [place] [phone] documented as of this encounter Visit Diagnoses Not on filedocumented in this encounter Additional Health Concerns Assessment Noted Time PHQ-9 Depression Total Score: 1 06/12/19 24 4:14 PM LOGGING CREW FOREMAN documented as of this encounter Care Teams Ob/Gyn Nurse Relationship Specialty Start Date End Date Stefan Salomon M.D. [address] [place] [phone] PCP - General Family Medicine 07/09/22 Anticoagulation Team 07/09/22 documented as of this encounter
--- OUTSIDE RECORDS SUMMARY | 2023-10-01 08:00 | XMS_ITS | Encounter Summary ---
Author Name Unknown Organization [facility] Address [address] [place] [address] Care Team Providers Care Pick Pulling Machine Tender Name Role Phone Stefan Salomon M.D. Primary Care Provider [phone] Encounter Details Date Type Department Care Team (Late st Contact Info) Description 05/31/2023 Clinical Communication Department of Family Medicine, [facility], in [address] [phone] Stefan Salomon M.D. [address] [place] [phone] Social History Tobacco Use Types Packs/Day Years [...] How often do you attend episcopal or amish serv ices? Never 07/09/2022 Do [...] Answer Date Recorded PHQ-2 Score 0 06/12/2023 [facility] [place] of Occupat ional Health - Occupational Stress [...] file Gender Identity Male 07/02/2017 9:12 AM FEED MILL MANAGER Sexual Orientation Straight 07/02/2017 9: 12 AM FEED MILL MANAGER documented as of this encounter Plan of Treatment Upcoming Encounters Date Type Department Care Team (Latest Contact Info) Description 10/11/2023 8:50 AM CDT Appointment Department of Laboratory Medicine in [address] [phone] Stefan Salomon M.D. [address] [place] [phone] 10/11/2023 9:30 AM CDT Anticoagulation Visit Department of Anticoagulation in [place], [place] [address] [place] [phone] Stefan Salomon M.D. [address] [place] [phone] 10/23/2023 4:15 PM CDT Clinical Communication Virtual Review in [place], [place] [address] [place] [phone] 10/24/2023 2:00 PM CDT Office Visit Department of Dermatology in [place], [place] [address] [place] [phone] Lucy Euceda M.D. [address] [place] [phone] documented as of this encounter Visit Diagnoses Not on filedocumented in this encounter Additional Health Concerns Assessment Noted Time PHQ-9 Depression Total Score: 0 07/09/19 23 8:29 AM FEED MILL MANAGER documented as of this encounter Care Teams Pick Pulling Machine Tender Relationship Specialty Start Date End Date Stefan Salomon M.D. [address] [place] [phone] PCP - General Family Medicine 07/09/22 Anticoagulation Team 07/09/22 documented as of this encounter
--- OUTSIDE RECORDS SUMMARY | 2023-10-01 08:00 | XMS_ITS | Encounter Summary ---
Author Name Unknown Organization [facility] Address [address] [place] [address] Care Team Providers Care Electric Motor Control Assembler Name Role Phone Stefan Salomon M.D. Primary Care Provider [phone] Encounter Details Date Type Department Care Team (Latest Contact Info) Description 08/02/2023 7:27 AM GRANT COORDINATOR - 08/02/2023 11:59 PM GRANT COORDINATOR Hospital Encounter Department of Laboratory Medicine in [address] [phone] Stefan Salomon M.D. [address] [place] [phone] Anticoagulant Therapy [Z79.01]; Mutation Factor V Leiden [...] How often do you attend holiness or rastafari serv ices? Never 07/09/2022 Do [...] Answer Date Recorded PHQ-2 Score 0 06/12/2023 [facility] - [facility] [...] the money to buy more. Never true 02/06/20 23 Within the past 12 months, t [...] file Gender Identity Male 07/02/2017 9:12 AM GRANT COORDINATOR Sexual Orientation Straight 07/02/2017 9: 12 AM GRANT COORDINATOR documented as of this encounter Medications at [...] prior to report time 4000 mL 08/01/2022 triamcinolone (KENALOG) 0.1 % creamIndications:Pr uritus Apply 1 Application topically 2 (two) times a day as needed (Rash). Apply to itchy spots on the back up to twice per day. 240 g 3 07/25/2023 clobetasoL (TEMOVATE) 0.05 % ointmentIndications :Pruritus Apply 1 Application topically 2 (two) times a day as needed (Rash) for up to 14 days. Apply to outside of ankle twice per day. Use for 3 weeks, then stop. 60 g 3 07/25/2023 08/08/2023 traMADoL (ULTRAM) 50 mg tabletIndications:C hronic Pain/Nonacute Pain Take 1-2 tablets (50-100 mg total) by mouth every 6 (six) hours as needed for pain Indications: Chronic Pain/Nonacute Pain. 240 tablet 07/08/2023 08/07/2023 warfarin (COUMADIN) 5 mg tabletIndications:A nticoagulant Therapy,Mutation Factor V Leiden Heterozygous (HCC),Monitoring For Therapeutic Drug Therapy,Thrombosis Deep Vein Personal History Please take as directed by your Anticoagulation Clinic. 130 tablet 3 10/18/2022 09/24/2023 documented as of this encounter Plan of Treatment Upcoming Encounters Date Type Department Care Team (Latest Contact Info) Description 10/11/2023 8:50 AM CDT Appointment Department of Laboratory Medicine in [address] [phone] Stefan Salomon M.D. [address] [place] [phone] 10/11/2023 9:30 AM CDT Anticoagulation Visit Department of Anticoagulation in [place], [place] [address] [place] [phone] Stefan Salomon M.D. [address] [place] [phone] 10/23/2023 4:15 PM CDT Clinical Communication Virtual Review in [place], [place] 200 [place] [phone] 10/24/2023 2:00 PM CDT Office Visit Department of Dermatology in [place], [place] [address] [place] [address] Lucy Euceda M.D. [address] [place] [phone] documented as of this encounter Procedures Procedure Name Priority Date/Time Associated Diagnosis Comments INR REFLEX, POCT, B Routine 08/02/2023 7:35 AM GRANT COORDINATOR Anticoagulant Therapy [Z79.01] Mutation Factor V Leiden Heterozygous (HCC) Monitoring For Therapeutic Drug Therapy [Z51.81] Thrombosis Deep Vein Personal History documented in this encounter Results * INR Reflex, POCT, Blood (08/02/2023 7:35 AM GRANT COORDINATOR) INR Reflex, POCT, B 2.0 08/02/2023 7:35 AM GRANT COORDINATOR CNFL Comment: ----ADDITIONAL INFORMATION---- Standard intensity warfarin therapeutic range: 2.0 to 3.0 ?? High intensity warfarin therapeutic range: 2.5 to 3.5 Blood (Blood, Capillary) 08/02/2023 7:35 AM GRANT COORDINATOR 08/02/2023 7:35 AM GRANT COORDINATOR Stefan Salomon M.D. LAB POCT ORDERABLES - DEVICE Performing Organization Address City/State/[facility] Co de Phone Number [facility] [address] [place] [phone], [facility] CNFL [facility] in [address] [address] documented in this encounter Visit Diagnoses Diagnosis Anticoagulant Therapy [Z79.01] Mutation Factor V Leiden Heterozygous (HCC) Monitoring For Therapeutic Drug Therapy [Z51.81] Thrombosis Deep Vein Personal History documented in this encounter Additional Health Concerns Assessment Noted Time PHQ-9 Depression Total Score: 1 06/12/19 24 4:14 PM GRANT COORDINATOR documented as of this encounter Care Teams Electric Motor Control Assembler Relationship Specialty Start Date End Date Stefan Salomon M.D. [address] [place] [phone] PCP - General Family Medicine 07/09/22 Anticoagulation Team 07/09/22 documented as of this encounter
--- OUTSIDE RECORDS SUMMARY | 2023-10-01 08:00 | XMS_ITS | Encounter Summary ---
Author Name Unknown Organization [facility] Address [address] [place] [address] Care Team Providers Care Transportation Driver Name Role Phone Stefan Salomon M.D. Primary Care Provider [phone] Reason for Visit * Reason Comments Med Refill Encounter Details Date Type Department Care Team (Late st Contact Info) Description 09/03/2023 Refill Department of Family Medicine, [facility], in [address] [phone] Nicholas Olsen M.D., Ph.D. [address] [place] [phone] Med Refill Social History Tobacco Use [...] How often do you attend druze or bahai serv ices? Never 07/09/2022 Do [...] Answer Date Recorded PHQ-2 Score 0 06/12/2023 [facility] of Occupat ional Health - [...] Gender Identity Male 07/02/2017 9:12 AM SPECIAL MACHINE STITCHER Sexual Orientation Straight 07/02/2017 9: 12 AM SPECIAL MACHINE STITCHER documented as of this encounter Miscellaneous Notes * Telephone Encounter - Dillan Bear, L.P.N. - 09/04/2023 3:37 PM CDT Controlled substance renewal for Tramadol 50 mg: No nursing concerns Renewal is pended per the controlled substance prescribing plan located in the synopsis Date last renewed (start date): 08/07/2023 Last provider visit: 06/12/2023 Last urine drug screen: 02/21/2023 ; Next due: 02/2024 Screenings due: current Next provider visit due: 12/2023 Chronic Opioid therapy agreement last reviewed/signed: 06/12/2023 This prescription may be filled on 09/05, and next renewal may be on or after 10/05. documented in this encounter Plan of Treatment Upcoming Encounters Date Type Department Care Team (Latest Contact Info) Description 10/11/2023 8:50 AM CDT Appointment Department of Laboratory Medicine in [address] [phone] Stefan Salomon M.D. [address] [place] [phone] 10/11/2023 9:30 AM CDT Anticoagulation Visit Department of Anticoagulation in [address] [phone] Stefan Salomon M.D. [address] [place] [phone] 10/23/2023 4:15 PM CDT Clinical Communication Virtual Review in [place], [place] 200 [place] [phone] 10/24/2023 2:00 PM CDT Office Visit Department of Dermatology in [place], [place] [address] [place] [phone] Lucy Euceda M.D. [address] [place] [phone] documented as of this encounter Visit Diagnoses Diagnosis Chronic Pain Syndrome Degeneration Disc Cervical Polyarthralgia documented in this encounter Additional Health Concerns Assessment Noted Time PHQ-9 Depression Total Score: 1 06/12/19 24 4:14 PM SPECIAL MACHINE STITCHER documented as of this encounter Care Teams Transportation Driver Relationship Specialty Start Date End Date Stefan Salomon M.D. [address] [place] [phone] PCP - General Family Medicine 07/09/22 Anticoagulation Team 07/09/22 documented as of this encounter
--- OUTSIDE RECORDS SUMMARY | 2023-10-01 08:00 | XMS_ITS | Encounter Summary ---
Author Name Unknown Organization [facility] Address [address] [place] [address] Care Team Providers Care Investor Relations Associate Name Role Phone Stefan Salomon M.D. Primary Care Provider [phone] Encounter Details Date Type Department Care Team (Latest Contact Info) Description 09/13/2023 7:10 AM CDT - 09/13/2023 11:59 PM CDT Hospital Encounter Department of Laboratory Medicine in [address] [phone] Stefan Salomon M.D. [address] [place] [phone] Anticoagulant Therapy [Z79.01]; Mutation Factor V Leiden [...] How often do you attend spiritism or temple serv ices? Never 07/09/2022 Do [...] Answer Date Recorded PHQ-2 Score 0 06/12/2023 [facility] of Occupat ional Health - [...] Gender Identity Male 07/02/2017 9:12 AM UTILITY DIVISION PROJECT MANAGER Sexual Orientation Straight 07/02/2017 9: 12 AM UTILITY DIVISION PROJECT MANAGER documented as of this encounter Medications [...] CDT Appointment Department of Laboratory Medicine in [address] [phone] Stefan Salomon M.D. [address] [place] [phone] 10/11/2023 9:30 AM CDT Anticoagulation Visit Department of Anticoagulation in [place], [place] [address] [place] [phone] Stefan Salomon M.D. [address] [place] [phone] 10/23/2023 4:15 PM CDT Clinical Communication Virtual Review in [place], [place] 200 [place] [phone] 10/24/2023 2:00 PM CDT Office Visit Department of Dermatology in [place], [place] [address] [place] [phone] Lucy Euceda M.D. [address] [place] [phone] documented as of this encounter Procedures Procedure Name Priority Date/Time Associated Diagnosis Comments INR REFLEX, POCT, B Routine 09/13/2023 7 :26 AM CDT documented in this encounter Results * INR Reflex, POCT, Blood (09/13/2023 7:26 AM CDT) INR Reflex, POCT, B 3.7 09/13/2023 7:26 AM CDT CNFL Comment: ----ADDITIONAL INFORMATION---- Standard intensity warfarin therapeutic range: 2.0 to 3.0 ?? High intensity warfarin therapeutic range: 2.5 to 3.5 Blood 09/13/2023 7:26 AM CDT 09/13/2023 9:29 AM CDT Generic Rals LAB POCT ORDERABLES - DEVICE [facility] [address] [place] [address], [facility] in [address] [address] documented in this encounter Visit Diagnoses Diagnosis Anticoagulant Therapy [Z79.01] Mutation Factor V Leiden Heterozygous (HCC) Monitoring For Therapeutic Drug Therapy [Z51.81] Thrombosis Deep Vein Personal History documented in this encounter Additional Health Concerns Assessment Noted Time PHQ-9 Depression Total Score: 1 06/12/19 24 4:14 PM UTILITY DIVISION PROJECT MANAGER documented as of this encounter Care Teams Investor Relations Associate Relationship Specialty Start Date End Date Stefan Salomon M.D. [address] [place] [phone] PCP - General Family Medicine 07/09/22 Anticoagulation Team 07/09/22 documented as of this encounter
--- OUTSIDE RECORDS SUMMARY | 2023-10-01 08:00 | XMS_ITS | Encounter Summary ---
Author Name Unknown Organization [facility] Address [address] [place] [address] Care Team Providers Care Prefitter Name Role Phone Stefan Salomon M.D. Primary Care Provider [phone] Encounter Details Date Type Department Care Team (Late st Contact Info) Description 07/09/2023 Orders Only [facility] PCP TH MNT Stefan Salomon M.D. [address] [place] [phone] Social History Tobacco Use Types Packs/Day [...] How often do you attend religious or buddhism serv ices? Never 07/09/2022 Do [...] Answer Date Recorded PHQ-2 Score 0 06/12/2023 [facility] of Occupat ional Health - Occupational Stress [...] file Gender Identity Male 07/02/2017 9:12 AM RN LAB Sexual Orientation Straight 07/02/2017 9: 12 AM RN LAB documented as of this encounter Plan of Treatment Upcoming Encounters Date Type Department Care Team (Latest Contact Info) Description 10/11/2023 8:50 AM CDT Appointment Department of Laboratory Medicine in [address] [phone] Stefan Salomon M.D. [address] [place] [phone] 10/11/2023 9:30 AM CDT Anticoagulation Visit Department of Anticoagulation in [place], [place] [address] [place] [phone] Stefan Salomon M.D. [address] [place] [address], [place] [phone] 10/23/2023 4:15 PM CDT Clinical Communication Virtual Review in [place], [place] [address] [place] [address] 10/24/2023 2:00 PM CDT Office Visit Department of Dermatology in [place], [place] [address] [place] [phone] Lucy Euceda M.D. [address] [place] [phone] documented as of this encounter Visit Diagnoses Not on filedocumented in this encounter Additional Health Concerns Assessment Noted Time PHQ-9 Depression Total Score: 1 06/12/19 24 4:14 PM RN LAB documented as of this encounter Care Teams Prefitter Relationship Specialty Start Date End Date Stefan Salomon M.D. [address] [phone] PCP - General Family Medicine 07/09/22 Anticoagulation Team 07/09/22 documented as of this encounter
--- OUTSIDE RECORDS SUMMARY | 2023-10-01 08:00 | XMS_ITS | Encounter Summary ---
Author Name Unknown Organization [facility] Address [address] [place] [address] Care Team Providers Care Residence Life Coordinator Name Role Phone Stefan Salomon M.D. Primary Care Provider [phone] Reason for Visit * Reason Comments Med Refill Encounter Details Date Type Department Care Team (Late st Contact Info) Description 07/03/2023 Refill Department of Family Medicine, [facility], in [address] [phone] Stefan Salomon M.D. [address] [place] [phone] Med Refill Social History Tobacco Use [...] How often do you attend religion or congregation serv ices? Never 07/09/2022 Do [...] Answer Date Recorded PHQ-2 Score 0 06/12/2023 [facility] of Occupat ional [...] file Gender Identity Male 07/02/2017 9:12 AM LEISURE STUDIES PROFESSOR Sexual Orientation Straight 07/02/2017 9: 12 AM LEISURE STUDIES PROFESSOR documented as of this encounter Miscellaneous Notes * Telephone Encounter - Rebeca Garg L.P.NCoty - 07/04/2023 10:11 AM LEISURE STUDIES PROFESSOR Controlled substance renewal for tramadol 50 mg: [...] renewal may be on or after 08/04/2023 URE STUDIES PROFESSOR documented in this encounter Plan of Treatment Upcoming Encounters Date Type Department Care Team (Latest Contact Info) Description 10/11/2023 8:50 AM CDT Appointment Department of Laboratory Medicine in [address] [phone] Stefan Salomon M.D. [address] [place] [phone] 10/11/2023 9:30 AM CDT Anticoagulation Visit Department of Anticoagulation in [address] [phone] Stefan Salomon M.D. [address] [place] [phone] 10/23/2023 4:15 PM CDT Clinical Communication Virtual Review in [place], [place] [address] [place] [address] 10/24/2023 2:00 PM CDT Office Visit Department of Dermatology in [place], [place] [address] [place] [phone] Lucy Euceda M.D. [address] [place] [phone] documented as of this encounter Visit Diagnoses Diagnosis Chronic Pain Syndrome Degeneration Disc Cervical Polyarthralgia documented in this encounter Additional Health Concerns Assessment Noted Time PHQ-9 Depression Total Score: 1 06/12/19 24 4:14 PM LEISURE STUDIES PROFESSOR documented as of this encounter Care Teams Residence Life Coordinator Relationship Specialty Start Date End Date Stefan Salomon M.D. [address] [place] [address] [place] [phone] PCP - General Family Medicine 07/09/22 Anticoagulation Team 07/09/22 documented as of this encounter
--- OUTSIDE RECORDS SUMMARY | 2023-10-01 08:00 | XMS_ITS | Encounter Summary ---
Author Name Unknown Organization [facility] Address [address] [place] [address] Care Team Providers Care Team Cdl Driver Name Role Phone Stefan Salomon M.D. Primary Care Provider [phone] Reason for Visit * Reason Comments Med Refill Encounter Details Date Type Department Care Team (Late st Contact Info) Description 07/16/2023 Refill Department of Family Medicine, [facility], in [address] [phone] Stefan Salomon M.D. [address] [place] [phone] Med Refill Social History Tobacco Use [...] How often do you attend buddhist or confucianism serv ices? Never 07/09/2022 Do [...] Answer Date Recorded PHQ-2 Score 0 06/12/2023 [facility] of Occupat ional [...] Gender Identity Male 07/02/2017 9:12 AM MEDICAL DOCTOR NUCLEAR MEDICINE Sexual Orientation Straight 07/02/2017 9: 12 AM MEDICAL DOCTOR NUCLEAR MEDICINE documented as of this encounter Plan of Treatment Upcoming Encounters Date Type Department Care Team (Latest Contact Info) Description 10/11/2023 8:50 AM CDT Appointment Department of Laboratory Medicine in [address] [phone] Stefan Salomon M.D. [address] [place] [phone] 10/11/2023 9:30 AM CDT Anticoagulation Visit Department of Anticoagulation in [place], [place] [address] [place] [phone] Stefan Salomon M.D. [address] [place] [phone] 10/23/2023 4:15 PM CDT Clinical Communication Virtual Review in [place], [place] [address] [place] [address] 10/24/2023 2:00 PM CDT Office Visit Department of Dermatology in [place], [place] [address] [place] [phone] Lucy Euceda M.D. [address] [place] [phone] documented as of this encounter Visit Diagnoses Not on filedocumented in this encounter Additional Health Concerns Assessment Noted Time PHQ-9 Depression Total Score: 1 06/12/19 24 4:14 PM MEDICAL DOCTOR NUCLEAR MEDICINE documented as of this encounter Care Teams Team Cdl Driver Relationship Specialty Start Date End Date Stefan Salomon M.D. [address] [place] [phone] PCP - General Family Medicine 07/09/22 Anticoagulation Team 07/09/22 documented as of this encounter
--- OUTSIDE RECORDS SUMMARY | 2023-10-01 08:00 | XMS_ITS | Encounter Summary ---
Author Name Unknown Organization [facility] Address [address] [place] [address] Care Team Providers Care Level Designer Name Role Phone Stefan Salomon M.D. Primary Care Provider [phone] Reason for Visit * Outpatient (Routine) - Authorized Specialty Diagnoses / Procedures Referred By Contdayana t Referred To Contact Anticoagulation Diagnoses Anticoagulant Therapy Mutation Factor V Leiden Heterozygous (HCC) Monitoring For Therapeutic Drug Therapy Thrombosis Deep Vein Personal History Stefan Salomon M.D. [id number] [place] [address] [phone] [facility] Referral ID Status Reason Start Date Expiration Date V isits Requested Visits Authorized [id number] Authorized 02/01/2023 01/31/2026 300 300 Encounter Details Date Type Department Care Team (Latest Contact Info) Description 08/02/2023 9:30 AM CEMETERY WORKERS SUPERVISOR Anticoagulation Visit Department of Anticoagulation in [place], [place] [address] [place] [address] Stefan Salomon M.D. [address] [place] [phone] Anticoagulant Therapy [Z79.01]; Mutation Factor V [...] How often do you attend anabaptism or episcopalian serv ices? Never 07/09/2022 Do [...] Answer Date Recorded PHQ-2 Score 0 06/12/2023 [facility] of Occupat ional Health - Occupational Stress [...] file Gender Identity Male 07/02/2017 9:12 AM CEMETERY WORKERS SUPERVISOR Sexual Orientation Straight 07/02/2017 9: 12 AM CEMETERY WORKERS SUPERVISOR documented as of this encounter Patient Instructions * Patient Instructions* Brittany Llamas R.N. - 08/02/2023 9:30 AM CEMETERY WORKERS SUPERVISOR Your next INR will be 08/23/23. You will need to call the Anticoagulation Program for warfarin dosing at the scheduled time for your nurse visit, as indicated on your Patient Appointment Guide (PAG). To reschedule your appointment or for questions about your warfarin, please call Primary Care Anticoagulation Program at [phone] from 7:30 am to 4:30 pm. Saturday-Saturday [...] if you start any herbal or other [id number]-[id number] product (check with your doctor, a nurse, or pharmacist). If you change your diet significantly. If you decide to stop or start using tobacco or alcohol. If you notice unusual bruising or bleeding. If you notice dark, tarry, or bright red stools or blood in your urine. If you have a painful and swollen calf. TERY WORKERS SUPERVISOR documented in this encounter Progress Notes * Brittany Llamas R.N. - 08/02/2023 9:30 AM CST Warfarin Maintenance Nursing Protocol [...] outpatient INRs within range. Additional Info: Patient does not like INR on the lower end of range. He would like an increase in dosing. Previous INR was therapeutic. Today???s INR is Therapeutic. Dosing and follow up recommendation: Protocol dosing range for INR 2.0-3.0: No change in weekly dose. Currently bridging? no. Next INR in 8 weeks per testing interval extension eligibility. Additional dosing or follow-up information: Protocol completed. Per nursing judgment, provider consulted. Dosing per tracker. Next INR in 21 days per consult with Anticoagulation [facility]. Pt is on injectable anticoagulant: No. Plan used: Consult. See Anticoagulation Track Calendar for dosing and plan details. Anticoagulation Visit Summary: Patient repeats back dosing instructions, date of next INR, and has no further questions at this time. Total time spent with patient: N/A TERY WORKERS SUPERVISOR documented in this encounter Plan of Treatment Upcoming Encounters Date Type Department Care Team (Latest Contact Info) Description 10/11/2023 8:50 AM CDT Appointment Department of Laboratory Medicine in [address] [phone] Stefan Salomon M.D. [address] [place] [phone] 10/11/2023 9:30 AM CDT Anticoagulation Visit Department of Anticoagulation in [address] [phone] Stefan Salomon M.D. [address] [place] [phone] 10/23/2023 4:15 PM CDT Clinical Communication Virtual Review in [address] [phone] 10/24/2023 2:00 PM CDT Office Visit Department of Dermatology in [place], [place] [address] [place] [phone] Lucy Euceda M.D. [address] [place] [phone] documented as of this encounter Results * INR Reflex, POCT, Blood (08/23/2023 7:45 AM CDT) INR Reflex, POCT, B 3.2 08/23/2023 7:45 AM CDT CNFL Comment: ----ADDITIONAL INFORMATION---- Standard intensity warfarin therapeutic range: 2.0 to 3.0 ?? High intensity warfarin therapeutic range: 2.5 to 3.5 Blood (Blood, Capillary) 08/23/2023 7:45 AM CDT 08/23/2023 7:45 AM CDT Stefan Salomon M.D. LAB POCT ORDERABLES - DEVICE [facility] [address] [place] [address], [facility] CNFL [facility] in [address] [address] documented in this encounter Visit Diagnoses Diagnosis Anticoagulant Therapy [Z79.01] Mutation Factor V Leiden Heterozygous (HCC) Monitoring For Therapeutic Drug Therapy [Z51.81] Thrombosis Deep Vein Personal History documented in this encounter Additional Health Concerns Assessment Noted Time PHQ-9 Depression Total Score: 1 06/12/19 24 4:14 PM CEMETERY WORKERS SUPERVISOR documented as of this encounter Care Teams Level Designer Relationship Specialty Start Date End Date Stefan Salomon M.D. [address] [place] [phone] PCP - General Family Medicine 07/09/22 Anticoagulation Team 07/09/22 documented as of this encounter
--- OUTSIDE RECORDS SUMMARY | 2023-10-01 08:00 | XMS_ITS | Encounter Summary ---
Author Name Unknown Organization [facility] Address [address] [place] [address] Care Team Providers Care Land Inspector Name Role Phone Stefan Salomon M.D. Primary Care Provider [phone] Encounter Details Date Type Department Care Team (Latest Contact Info) Description 08/23/2023 7:35 AM CDT - 08/23/2023 11:59 PM CDT Hospital Encounter Department of Laboratory Medicine in [address] [phone] Stefan Salomon M.D. [address] [place] [phone] Anticoagulant Therapy [Z79.01]; Mutation Factor V Leiden [...] How often do you attend christianity or samaritan serv ices? Never 07/09/2022 Do [...] Answer Date Recorded PHQ-2 Score 0 06/12/2023 [facility] of Occupat ional Health - Occupational [...] Gender Identity Male 07/02/2017 9:12 AM RN ACUTE CARE Sexual Orientation Straight 07/02/2017 9: 12 AM RN ACUTE CARE documented as of this encounter Medications at [...] twice per day. 240 g 3 07/25/2023 traMADoL (ULTRAM) 50 mg tabletIndications:C hronic Pain/Nonacute Pain Take 1-2 tablets (50-100 mg total) by mouth every 6 (six) hours as needed for pain Indications: Chronic Pain/Nonacute Pain. 240 tablet 08/07/2023 09/04/2023 warfarin (COUMADIN) 5 mg tabletIndications:A nticoagulant Therapy,Mutation Factor V Leiden Heterozygous (HCC),Monitoring For Therapeutic Drug Therapy,Thrombosis Deep Vein Personal History Please take as directed by your Anticoagulation Clinic. 130 tablet 3 10/18/2022 09/24/2023 documented as of this encounter Plan of Treatment Upcoming Encounters Date Type Department Care Team (Latest Contact Info) Description 10/11/2023 8:50 AM CDT Appointment Department of Laboratory Medicine in [address] [place] [phone] Stefan Salomon M.D. [address] [place] [phone] 10/11/2023 9:30 AM CDT Anticoagulation Visit Department of Anticoagulation in [place], [place] [address] [place] [phone] Stefan Salomon M.D. [phone] [place] [phone] 10/23/2023 4:15 PM CDT Clinical Communication Virtual Review in [place], [place] [address] [place] [address] 10/24/2023 2:00 PM CDT Office Visit Department of Dermatology in [place], [place] [address] [place] [phone] Lucy Euceda M.D. [address] [place] [phone] documented as of this encounter Procedures Procedure Name Priority Date/Time Associated Diagnosis Comments INR REFLEX, POCT, B Routine 08/23/2023 7:45 AM CDT Anticoagulant Therapy [Z79.01] Mutation Factor [...] Salomon M.D. LAB POCT ORDERABLES - DEVICE [facility] [address] [place] [id number], [facility] CNFL [facility] in [address] [address] documented in this encounter Visit Diagnoses Diagnosis Anticoagulant Therapy [Z79.01] Mutation Factor V Leiden Heterozygous (HCC) Monitoring For Therapeutic Drug Therapy [Z51.81] Thrombosis Deep Vein Personal History documented in this encounter Additional Health Concerns Assessment Noted Time PHQ-9 Depression Total Score: 1 06/12/19 24 4:14 PM RN ACUTE CARE documented as of this encounter Care Teams Land Inspector Relationship Specialty Start Date End Date Stefan Salomon M.D. [address] [place] [phone] PCP - General Family Medicine 07/09/22 Anticoagulation Team 07/09/22 documented as of this encounter
--- OUTSIDE RECORDS SUMMARY | 2023-10-01 08:00 | XMS_ITS | Encounter Summary ---
Author Name Unknown Organization [facility] Address [address] [place] [address] Care Team Providers Care Waiter/Waitress Tourist Class Name Role Phone Stefan Salomon M.D. Primary Care Provider [phone] Reason for Referral * Outpatient (Routine) - Authorized Specialty Diagnoses / Procedures Referred By Contac t Referred To Contact Dermatology Diagnoses Pruritus Crystal Brewer M.D. [address] [place] [phone] [facility] Referral ID Status Reason Start Date Expiration Date V isits Requested Visits Authorized [id number] Authorized 07/25/2023 01/23/2025 1 1 E SPECIALIST Reason for Visit * Appointment Request (Routine) - Closed Specialty Diagnoses / Procedures Referred By Contac t Referred To Contact Dermatology Diagnoses Screening Examination Skin Cancer Referral ID Status Reason Start Date Expiration Date Visits Re quested Visits Authorized [id number] Closed 07/05/2023 07/04/2024 1 1 Encounter Details Date Type Department Care Team (Late Contact Info) Description 07/25/2023 3:40 PM TITLE SPECIALIST Office Visit Department of Dermatology in [place], [place] [address] [place] [phone] Crystal Brewer M.D. [address] [place] [phone] Pruritus (Primary Dx); Keratosis Seborrheic Inflamed [L82.0] Social History Tobacco Use Types Packs/Day Years [...] How often do you attend jewish or shinto serv ices? Never 07/09/2022 Do [...] Answer Date Recorded PHQ-2 Score 0 06/12/2023 [facility] [...] Gender Identity Male 07/02/2017 9:12 AM TITLE SPECIALIST Sexual Orientation Straight 07/02/2017 9: 12 AM TITLE SPECIALIST documented as of this encounter Progress Notes * Crystal Brewer M.D. - 07/25/2023 3:40 PM CST Supervising physician: Dr. Cornell Correspondence to: Crystal Brewer M.D. Location: [facility] SUBJECTIVE REFERRAL SOURCE No ref. provider found CHIEF COMPLAINT/REASON FOR VISIT Skin cancer screening examination HISTORY OF PRESENT ILLNESS Mr. Wesley Bautista is a 72 y.o. male who presents today, accompanied by his Lisa, for evaluation of a few concerning lesions. Last visit: Wesley Bautista was last seen 07/27/2022 for a waist up skin cancer screening examination which was only notable for actinic keratoses which were treated with cryotherapy. He was noted to have dermatitic rash on his right lower abdomen. He had been using triamcinolone 0.1% cream on this area, but the rash was persistent so he was given clobetasol 0.05% ointment to use instead. In 2021 he underwent evaluation for a generalized rash with severe pruritus. Laboratory evaluation including villous pathway serologies, indirect immunofluorescence, CMP, CBC, celiac cascade, and monoclonal gammopathy screen were unremarkable. A punch biopsy was obtained which showed spongiotic subacute dermatitis with intracorneal pustules. There was some clinical concern for scabies but this was not demonstrated on H&E. Today: - He has a lesion on his right congregation that has been present for a long time but has recently becomelarger and darker. It also feels rough to the touch. - The skin on his right foot is itchy - He would like us to look at his back. There is nothing there specifically bothersome to him at the [facility]. PAST DERMATOLOGIC & MEDICAL HISTORY History of BCC OBJECTIVE PHYSICAL EXAMINATION General: Awake, alert, in no acute distress, with appropriate affect. Skin: I examined the Right foot, face, arms and scalp. Notable skin findings as follows: Lesion of concern on the right congregation is consistent with a pigmented seborrheic keratosis. He has several SKs scattered across the face, scalp, and back. Several SKs on the back appear irritated. Gritty, erythematous macules consistent with actinic keratoses scattered on the scalp and dorsal hands Nonspecific scattered erythematous macules and papules on the back and bilateral upper extremities.Some of these have secondary excoriations. Involving the right foot are changes consistent with chronic stasis dermatitis and healed venous ulcers. The medial ankle has thick, hyperkeratotic scale. The lateral ankle has changes consistent with atrophie nora. Onychomycosis of all toenails on the right foot ASSESSMENT / PLAN #1 Seborrheic Keratosis, inflamed - Reassurance provided and benign diagnosis discussed - Treated 4 lesions with liquid nitrogen given inflammation - Discussed the risks, benefits, alternatives, and the necessity of other members of the healthcareteam participating in the procedure. All questions answered and informed consent obtained. PROCEDURE INFORMATION We treated 4 lesion(s) with two 20-second freeze-thaw cycles of liquid nitrogen cryotherapy. The patient tolerated the procedure well. #2 Actinic keratoses - Pre-malignant diagnosis discussed - Discussed the risks, benefits, alternatives, and the necessity of other members of the healthcareteam participating in the procedure. All questions answered and informed consent was obtained. PROCEDURE INFORMATION Given the precancerous nature of this lesion(s), treatment is medically indicated. After discussionof the risks, benefits and alternatives to treatment with cryotherapy, informed consent was obtained. We treated a total of 6 lesion(s) with one [id number] freeze-thaw cycles of liquid nitrogen cryo therapy. The patient tolerated the procedure well. Aftercare instructions were provided in written and verbal form to the patient. Should any of these lesions recur, the patient should return for biopsy or further evaluation. #3 Chronic stasis dermatitis of the right foot #4 Hyperkeratotic scale #5 Atrophie nora - We evaluated the scale on the medial ankle with KODI prep. No fungal elements were appreciated. The pruritus may be due to chronic stasis changes with an element of lichen simplex chronicus due to scratching. We recommended using Amlactin daily moisturizing lotion for the hyperkeratotic scale on the medial ankle and clobetasol 0.05% ointment for the atrophie nora of the lateral ankle. He was instructed to apply the clobetasol twice per day for up to 3 weeks, then take a 1 week break. He canapply the Amlactin twice daily. He and his demonstrated understanding of this plan. We will plan to see him back in 3 months to re-evaluate. 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 We recommended that he apply triamcinolone 0.1% cream on the itchy spots up to twice per day. We will re-evaluate this rash in 3 months. Orders Placed This Encounter Procedures Dermatology office visit (clinic) Orders Placed This Encounter Dermatology office visit (clinic) Standing Status: Future Standing Expiration Date: 10/22/2024 Referral Priority: Routine Referral Type: Outpatient Referral Location: [facility] Number of Visits Requested: 1 clobetasoL (TEMOVATE) 0.05 % ointment Sig: Apply 1 Application topically 2 (two) times a day as needed (Rash) for up to 14 days. Apply tooutside of ankle twice per day. Use for 3 weeks, then stop. Dispense: 60 g Refill: 3 triamcinolone (KENALOG) 0.1 % cream Sig: Apply 1 Application topically 2 (two) times a day as needed (Rash). Apply to itchy spots on the back up to twice per day. Dispense: 240 g Refill: 3 All questions answered. Follow-up: 3 months Crystal Brewer MD (PGY-2) Department of Dermatology E SPECIALIST Associated attestation - Bhakti Cornell M.D. - 07/29/2023 3:44 PM TITLE SPECIALIST I saw and evaluated the patient, participating in the dsouza portions of the service. I reviewed the resident's note, and I agree with the findings and plan. I was immediately available for the entiretyof the major procedure(s) and present for the dsouza and critical portions. documented in this encounter Miscellaneous Notes * Addendum Note - Crystal Brewer M.D. - 07/25/2023 3:40 PM CSTAddended by: CRYSTAL BREWER on: 07/25/2023 05:02 PM Modules accepted: Level of Service E SPECIALIST documented in this encounter Plan of Treatment Upcoming Encounters Date Type Department Care Team (Latest Contact Info) Description 10/11/2023 8:50 AM CDT Appointment Department of Laboratory Medicine in [address] [phone] Stefan Salomon M.D. [address] [place] [phone] 10/11/2023 9:30 AM CDT Anticoagulation Visit Department of Anticoagulation in [address] [phone] Stefan Salomon M.D. [address] [place] [phone] 10/23/2023 4:15 PM CDT Clinical Communication Virtual Review in [place], [place] [address] [place] [phone] 10/24/2023 2:00 PM CDT Office Visit Department of Dermatology in [place], [place] [address] [place] [phone] Lucy Euceda M.D. [address] [place] [phone] Scheduled Referrals Name Type Priority Associated Diagnoses Order Schedule Dermatology office visit (clinic) Outpatient Referral Routine Pruritus Expected: 10/23/2023 (Approximate), Expires: 10/22/2024 documented as of this encounter Visit Diagnoses Diagnosis Pruritus- Primary Keratosis Seborrheic Inflamed [L82.0] documented in this encounter Additional Health Concerns Assessment Noted Time PHQ-9 Depression Total Score: 1 06/12/19 24 4:14 PM TITLE SPECIALIST documented as of this encounter Care Teams Waiter/Waitress Tourist Class Relationship Specialty Start Date End Date Stefan Salomon M.D. [id number] [phone] PCP - General Family Medicine 07/09/22 Anticoagulation Team 07/09/22 documented as of this encounter
== END 2023-10-01 07:57 | disposition home or self-care (01) ==
LOC: WOUND 07:56
PROVIDERS: PCP Student in an Organized Health Care Education/Training Program; Visit Provider Nurse Practitioner Family
DX: I87.312 Chronic venous hypertension (idiopathic) with ulcer of left lower extremity (principal); I87.2 Venous insufficiency (chronic) (peripheral); L97.322 Non-pressure chronic ulcer of left ankle with fat layer exposed; I89.0 Lymphedema, not elsewhere classified
CPT/HCPCS: 97597

== ENCOUNTER 2023-10-15 07:57 | Outpatient (CLI) | payer MEDICARE, BC, SELFPAY | END 2023-10-15 07:58 | disposition home or self-care (01) | LOC: WOUND 07:58 | PROVIDERS: PCP Student in an Organized Health Care Education/Training Program; Visit Provider Nurse Practitioner Family | DX: I87.312 Chronic venous hypertension (idiopathic) with ulcer of left lower extremity (principal); L97.322 Non-pressure chronic ulcer of left ankle with fat layer exposed | CPT/HCPCS: 97597 ==

== ENCOUNTER 2023-10-31 07:57 | Outpatient (CLI) | payer MEDICARE, BC, SELFPAY | END 2023-10-31 07:58 | disposition home or self-care (01) | LOC: WOUND 07:57 | PROVIDERS: PCP Student in an Organized Health Care Education/Training Program; Visit Provider Nurse Practitioner Family | DX: I87.312 Chronic venous hypertension (idiopathic) with ulcer of left lower extremity (principal); I87.2 Venous insufficiency (chronic) (peripheral); L97.322 Non-pressure chronic ulcer of left ankle with fat layer exposed | CPT/HCPCS: 97597 ==

== ENCOUNTER 2023-11-12 08:08 | Outpatient (CLI) | payer MEDICARE, BC, SELFPAY ==
--- OUTSIDE RECORDS SUMMARY | 2023-11-12 08:11 | XMS_ITS | Clinical Summary ---
Author Organization [facility] Address [place], [place] [address] Care Team Providers Care Dial Brusher Name Role Phone Yue Alonso Thomasmedhat [facility] Primary Care Provider Allergies Active Allergy Reactions [...] extremity 07/13/2016 Overview: Overview: Saw Neurologist at [facility] on 09/16/2009. MRI lumbar spine done on [...] Type Department Care Team Description 08/26/2023 Telephone [facility] [address] [place] [address] Bhavik Benson, AuD Hearing Aid from Last [...] Comments Blood Pressure 117/67 05/13/2021 2:55 PM OPERATIONS SCHEDULER Pulse 103 05/13/2021 2:55 PM OPERATIONS SCHEDULER Temperature 36.9 ??C (98.4 ??F) 05/13/2021 2:55 PM CS T Respiratory Rate 18 05/13/2021 2:55 PM OPERATIONS SCHEDULER Oxygen Saturation 99% 05/13/2021 2:55 PM OPERATIONS SCHEDULER Inhaled Oxygen Concentration - - Weight 97.8 kg (215 lb 9.8 oz) 07/04/2022 11:35 AM OPERATIONS SCHEDULER Height 175.7 cm (5' 9.17) 07/04/2022 11:[address] Body Mass Index 31.68 07/04/2022 11:35 AM OPERATIONS SCHEDULER Plan of Treatment Health Maintenance Due Date [...] 8:51 AM 12/27/2014 12:46 PM Care Teams Dial Brusher Relationship Specialty Start Date End Date Yue Alonso MBBS [address] [place], [place] [address], [place] [address] PCP - General Family Practice 06/26/22
--- OUTSIDE RECORDS SUMMARY | 2023-11-12 08:11 | XMS_ITS | Clinical Summary ---
Author Organization [facility] Address [address] [place] [address] Care Team Providers Care Head Of Housekeeping Name Role Phone Stefan Salomon M.D. Primary Care Provider [phone] Source Comments Patient records contain information from all sites at [facility]. For routine questions regarding patient records, call [phone] during business hours, M-F 8:00 AM - 5:00 PM Central Time. Record requests for emergency care only can be directed to [phone] at any time.[facility] Allergies Active Allergy Reactions Criticality Noted Date Comments Atorvastatin Myalgia 02/08/2017 Leg Pain/Cramps Mlcchwv-Wkw-Zsu Reductase Inhibitors Other (see comments) 09/10/2022 Medications [...] skin folds 120 g 2 2 Active acetaminophen (TYLENOL) 500 mg capsule Take 500 mg by mouth every 6 (six) hours as needed for pain. Takes 4,000 mg usually each day Active fluorouraciL (EFUDEX) 5 % cream Apply 1 application. topically 2 (two) times a day. Apply to scalp for 2-3 weeks. 40 g 3 Active polyethylene glycol-electrolyt es (GoLYTELY) 236-22.74-6.74 -5.86 gram solution Drink 1st portion of prep at 6 PM the evening before. 2nd portion must be started 3 hours before and finished 2 hours prior to report time 4000 mL 3 Active gabapentin (NEURONTIN) 300 mg capsuleIndication s:Insufficiency Venous,Chronic Pain Syndrome,Pain Limb Generalized,Pain Leg Bilateral,Pseudog out Take 2 capsules (600 mg total) by mouth 3 (three) times a day. 540 capsule 3 3 Active Additional Information Patient taking differently:600 mg oral2 times daily, 2 tabs twice a day, Informant: Self, Reported on 07/19/2023 amLODIPine (NORVASC) 10 mg tablet TAKE ONE TABLET BY MOUTH EVERY DAY 90 tablet 3 3 Active losartan (COZAAR) 50 mg tablet TAKE 1 TABLET [50MG] BY MOUTH ONCE EVERY DAY 90 tablet 3 4 Active triamcinolone (KENALOG) 0.1 % creamIndications: Pruritus Apply 1 Application topically 2 (two) times a day as needed (Rash). Apply to itchy spots on the back up to twice per day. 240 g 3 4 Active warfarin (JANTOVEN) 5 mg tabletIndications :Anticoagulant Therapy,Mutation Factor V Leiden Heterozygous (HCC),Monitoring For Therapeutic Drug Therapy,Thrombosi s Deep Vein Personal History Please take as directed by your Anticoagulation Clinic. 118 tablet 3 4 Active traMADoL (ULTRAM) 50 mg tabletIndications :Chronic Pain/Nonacute Pain Take 1-2 tablets (50-100 mg total) by mouth every 6 (six) hours as needed for pain Indications: Chronic Pain/Nonacute Pain. for pain 240 tablet 4 Active traMADoL (ULTRAM) 50 mg tabletIndications :Chronic Pain/Nonacute Pain Take 1-2 tablets (50-100 mg total) by mouth every 6 (six) hours as needed for pain Indications: Chronic Pain/Nonacute Pain. for pain 240 tablet 4 11/07/19 24 Discontinu ed(Reorder ) Active Problems Problem [...] Limb Generalized 11/18/2011 Overview: Saw Neurologist at [facility] on 09/16/2009. MRI lumbar spine [...] Encounters Date Type Department Care Team Description 11/05/2023 Refill Department of Family Medicine, [facility], in [address] [address] Stefan Salomon M.D. Med Refill 10/23/2023 1:20 PM CDT Office Visit Department of Dermatology in [place], [place] [address] [place] [phone] Indira Gold M.D. Keratosis Seborrheic Inflamed [L82.0] (Primary Dx); Pruritus; Keratosis Actinic; Dermatitis 10/15/2023 3:30 PM CDT Anticoagulation Visit Department of Anticoagulation in [place], [place] [address] [place] [address] Stefan Salomon M.D. Anticoagulant Therapy [Z79.01] (Primary Dx); Mutation Factor V Leiden Heterozygous (HCC); Monitoring For Therapeutic Drug Therapy [Z51.81]; Thrombosis Deep Vein Personal History 10/11/2023 7:16 AM CDT - 10/11/2023 11:59 PM CDT Hospital Encounter Department of Laboratory Medicine in [address] [phone] Stefan Salomon M.D. Anticoagulant Therapy; Mutation Factor V Leiden Heterozygous (HCC); Monitoring For Therapeutic Drug Therapy; Thrombosis Deep Vein Personal History Discharge Disposition: Home or Self Care 10/10/2023 Refill Department of Family Medicine, [facility], in [address] [phone] Stefan Salomon M.D. Med Refill 09/24/2023 Refill Department of Family Medicine, [facility], in [address] [phone] Stefan Salomon M.D. Med Refill 09/20/2023 11:00 AM CDT Anticoagulation Visit Department of Anticoagulation in [address] [address] Stefan Salomon M.D. Thrombosis Deep Vein Personal History (Primary Dx); Anticoagulant Therapy; Mutation Factor V Leiden Heterozygous (HCC); Monitoring For Therapeutic Drug Therapy; Hypertension Essential Primary 09/20/2023 7:10 AM CDT - 09/20/2023 11:59 PM CDT Hospital Encounter Department of Laboratory Medicine in [address] [address] Stefan Salomon M.D. Anticoagulant Therapy; Mutation Factor V Leiden Heterozygous (HCC); Monitoring For Therapeutic Drug Therapy; Thrombosis Deep Vein Personal History Discharge Disposition: Home or Self Care 09/13/2023 9:30 AM CDT Anticoagulation Visit Department of Anticoagulation in [place], [place] [address] [place] [phone] Stefan Salomon M.D. Anticoagulant Therapy; Mutation Factor V Leiden Heterozygous (HCC); Monitoring For Therapeutic Drug Therapy; Thrombosis Deep Vein Personal History 09/13/2023 7:10 AM CDT - 09/13/2023 11:59 PM CDT Hospital Encounter Department of Laboratory Medicine in [address] [place] [address] Stefan Salomon M.D. Anticoagulant Therapy [Z79.01]; Mutation Factor V Leiden Heterozygous (HCC); Monitoring For Therapeutic Drug Therapy [Z51.81]; Thrombosis Deep Vein Personal History Discharge Disposition: Home or Self Care 09/03/2023 Refill Department of Family Medicine, [facility], in [address] [address] Nicholas Olsen M.D., Ph.D. Med Refill 08/23/2023 9:30 AM CDT Anticoagulation Visit Department of Anticoagulation in [address] [address] Stefan Salomon M.D. Mutation Factor V Leiden Heterozygous (HCC) (Primary Dx); Anticoagulant Therapy [Z79.01]; Monitoring For Therapeutic Drug Therapy [Z51.81]; Thrombosis Deep Vein Personal History 08/23/2023 7:35 AM CDT - 08/23/2023 11:59 PM CDT Hospital Encounter Department of Laboratory Medicine in [address] [phone] Stefan Salomon M.D. Anticoagulant Therapy [Z79.01]; Mutation [...] Free 04/02/2023,04/19/2022,03/10/2020 Influenza, Unspecified 07/13/2016 PCV13 10/29/2014 PPSV23 07/02/2017 [...] How often do you attend anglican or congregational serv ices? Never 07/09/2022 Do [...] Recorded PHQ-2 Score 0 06/12/2023 [facility] of Occupat ional [facility] - Occupational Stress Questionnaire Answer Date Recorded [...] file Gender Identity Male 07/02/2017 9:12 AM HONE OPERATOR Sexual Orientation Straight 07/02/2017 9: 12 AM HONE OPERATOR Last Filed Vital Signs Vital Sign Reading Time Taken Comments Blood Pressure 148/82 06/12/2023 4:23 PM HONE OPERATOR Pulse 63 06/12/2023 4:23 PM HONE OPERATOR Temperature 36.6 ??C (97.9 ??F) 06/12/2023 4:23 PM CS T Respiratory Rate 18 06/12/2023 4:23 PM HONE OPERATOR Oxygen Saturation 94% 06/12/2023 4:23 PM HONE OPERATOR Inhaled Oxygen Concentration - - Weight 95.6 kg (210 lb 12.2 oz) 06/12/2023 4:23 PM HONE OPERATOR Height 176.5 cm (5' 9.49) 08/01/2022 9:59 AM CS T Body Mass Index 30.69 08/01/2022 9:59 AM HONE OPERATOR Plan of Treatment Upcoming Encounters Date Type Department Care Team (Latest Contact Info) Description 11/22/2023 8:50 AM CDT Appointment Department of Laboratory Medicine in [address] [phone] Stefan Salomon M.D. [address] [place] [phone] 11/22/2023 9:30 AM CDT Anticoagulation Visit Department of Anticoagulation in [place], [place] [address] [place] [address] Stefan Salomon M.D. [address] [place] [phone] Health Maintenance Due Date Last Done Comments CT Colonography 1948 Cologuard 1948 Zoster Vaccines (1 of 2) 1998 Colonoscopy 12/28/2019 12/27/2014 Colorectal Cancer Surveillance 12/28/2019 Visit: Medicare Annual Wellness 07/10/2023 3 Office Visit for Blood Press ure Check / Re-check 09/11/2023 06/12/2023 COVID-19 Vaccine ( - 2022-2 4 season) 2023 05/23/2023, 04/21/2022, 04/14/2021, Additional history exists Creatinine Level (Kidney Fun ction Test) 04/19/2024 04/19/2023, 04/30/2022, 06/08/2021, Additional history exists Lipid (Cholesterol) Screening 04/19/2024, 03/16/2022, 08/14/2018, Additional history exists Potassium Level 04/19/2024 04/19/2023, 04/04, 06/08/2021, Additional history exists Sodium Level 04/19/2024 04/19/2023, 04/04, 06/08/2021, Additional history exists Visit: Chronic Disease, age 18+ 06/12/2024 4 [...] Completed 06/12/2023 Medical Devices Implanted Type Area Bedspread Folder Device Identifier Shelf Expiration Date Model / Serial / Lot Mineralized Cancellous Bone 2.0 - Anne [id number] Implanted:Qty: 1 on 08/10/2015 Bone or Tissue Tooth Portable [employer]ores [facility] Description:Device Manufactu [facility] [employer]. Body Location - Other. tooth-13. Device Status Text - [id number]. Hardware E.G. Pins/Screws/Rk s Hardware e.g. pins/screws /rods Mouth Abutment Nobrpl Rp 4.3x5 - Anne [id number] Implanted:Qty: 1 on 07/03/2007 Hardware e.g. pins/screws /rods Tooth [employer] Description:Device Manufactu rer - [employer]. Body Location - Tooth 5. Device Status Text - [id number]. Screw Rst Curly Taper Rp 4.3x13.0 - Anne [id number] Implanted:Qty: 1 on 07/03/2007 Hardware e.g. pins/screws /rods Tooth [employer] Description:Device Manufactu rer - [employer]. Body Location - Tooth 5. Device Status Text - [id number]. Screw Nobrpl Curly Tap Concrete Handler 3.5x11.5 - Anne [id number] Implanted:Qty: 1 on 03/03/2012 Hardware e.g. pins/screws /rods Tooth [employer] Description:Device Manufactu rer - [employer]. Body Location - Tooth 29. Device Status Text - [id number]. Abutment Nobrpl Concrete Handler 3.5x5 - Anne [id number] Implanted:Qty: 1 on 03/03/2012 Hardware e.g. pins/screws /rods Tooth [employer] Description:Device Manufactu rer - [employer]. Body Location - Tooth 29. Device Status Text - [id number]. Abutment Nobrpl Concrete Handler 3.5x3 - Anne [id number] Implanted:Qty: 1 on 08/23/2014 Hardware e.g. pins/screws /rods Tooth [employer] Description:Device Manufactu rer - [employer]. Body Location - Other. tooth- 28. Device Status Text - [id number]. Abutment Nobrpl Concrete Handler 3.5x3 - Anne [id number] Implanted:Qty: 1 on 08/23/2014 Hardware e.g. pins/screws /rods Tooth [employer] Description:Device Manufactu rer - [employer]. Body Location - Other. tooth- 28. Device Status Text - [id number]. Screw Nobrpl Curly Taper Concrete Handler 3.5x13.0 - Anne [id number] Implanted:Qty: 1 on 08/23/2014 Hardware e.g. pins/screws /rods Tooth [employer] Description:Device Manufactu rer - [employer]. Body Location - Other. tooth- 28. Device Status Text - [id number]. Screw Nobrpl Curly Taper Rp 4.3x10.0 - Anne [id number] Implanted:Qty: 1 on 08/10/2015 Hardware e.g. pins/screws /rods Tooth [employer] Description:Device Manufactu rer - [employer]. Body Location - Other. tooth- 20. Device Status Text - HARDWARE-[id number]. Brane Fix Rst Tiunite Rp 4.3 X 13.0 - Anne [id number] Implanted:Qty: 1 on 08/10/2015 Hardware e.g. pins/screws /rods Tooth [employer] Description:Device Manufactu rer - [employer]. Body Location - Other. tooth- 21. Device Status Text - [id number]. Brane Fix Rst Tiunite Rp 4.3 X 13.0 - Anne [id number] Implanted:Qty: 1 on 08/10/2015 Hardware e.g. pins/screws /rods Tooth [employer] Description:Device Manufactu rer - [employer]. Body Location - Other. tooth- 13. Device Status Text - [id number]. Brane Fix Rst Tiunite Rp 4.3 X 13.0 - Anne [id number] Implanted:Qty: 1 on 08/10/2015 Hardware e.g. pins/screws /rods Tooth [employer] Description:Device Manufactu rer - [employer]. Body Location - Other. tooth- 11. Device Status Text - [id number]. Abutment Nobrpl Rp 4.3x3 - Anne [id number] Implanted:Qty: 1 on 02/08/2016 Hardware e.g. pins/screws /rods Tooth [employer] Description:Device Manufactu rer - [employer]. Body Location - Other. tooth- 20. Device Status Text - [id number]. Abutment Nobrpl Rp 5.3x3 - Anne [id number] Implanted:Qty: 1 on 02/08/2016 Hardware e.g. pins/screws /rods Tooth [employer] Description:Device Manufactu rer - [employer]. Body Location - Other. tooth- 13. Device Status Text - [id number]. Abutment Nobrpl Rp 4.3x3 - Anne [id number] Implanted:Qty: 1 on 02/08/2016 Hardware e.g. pins/screws /rods Tooth [employer] Description:Device Manufactu rer - [employer]. Body Location - Other. tooth- 21. Device Status Text - HARDWARE-[id number]. Abutment Nobrpl Rp 4.3x3 - Anne [id number] Implanted:Qty: 1 on 02/08/2016 Hardware e.g. pins/screws /rods Tooth [employer] Description:Device Manufactu rer - [employer]. Body Location - Other. tooth- 11. Device Status Text - [id number]. Patch Dura-Guard 4x 4 - Anne [id number] Implanted:Qty: 1 on 08/19/1996 Mesh or Patch [employer] Description:Device Manufactu rer - [employer]. Device Status Text - MESHPATCH-7189. Allograft Bioxclude Chorion 1cm X 2.5cm - Anne [id number] Implanted:Qty: 1 on 01/15/2014 Mesh or Patch Tooth Unknown Description:Device Manufactu rer - Unknown. Body Location - tooth-28. Device Status Text - [id number]. Allograft Bioxclude Chorion 1cm X 2.5cm - Anne [id number] Implanted:Qty: 1 on 01/15/2014 Mesh or Patch Tooth Unknown Description:Device Manufactu rer - Unknown. Body Location - tooth-5. Device Status Text - c6 Software [id number]. Allograft Bioxclude Chorion 1.5cm X 2cm - Anne [id number] Implanted:Qty: 1 on 08/10/2015 Mesh or Patch Other/Legacy - See Implant Description Unknown Description:Device Manufactu rer - Unknown. Body Location - Other. Left. Device Status Text - c6 Software CorporationPATCH-[id number]. Procedures Procedure Name Priority Date/Time Associated Diagnosis Comments INR REFLEX, POCT, B Routine 10/11/2023 7 :25 AM CDT Anticoagulant Therapy Mutation Factor V Leiden Heterozygous (HCC) Monitoring For Therapeutic Drug Therapy Thrombosis Deep Vein Personal History INR REFLEX, POCT, B Routine 09/20/2023 7 :20 AM CDT INR REFLEX, POCT, B Routine 09/13/2023 7 :26 AM CDT INR REFLEX, POCT, B Routine 08/23/2023 7 :45 AM CDT Anticoagulant Therapy [Z79.01] Mutation Factor V Leiden Heterozygous (HCC) Monitoring For Therapeutic Drug Therapy [Z51.81] Thrombosis Deep Vein Personal History LIPID PANEL, S Routine 04/19/2023 7:39 AM HONE OPERATOR Hyperlipidemia BASIC METABOLIC PANEL, S/P Routine 04/19/2023 7:39 AM HONE OPERATOR Hypertension Essential Primary HCV AB SCRN W/REFLEX TO HCV PCR, S Routine 06/15/2016 9:01 AM HONE OPERATOR COLONOSCOPY Routine 12/27/2014 US AORTA Routine 11/09/2014 8:30 AM CDT from Last 3 Months or Most Recently Relevant to Health Maintenance Results * INR Reflex, POCT, Blood (10/11/2023 7:25 AM CDT) Only the most recent of4 resultswithin the time period is included. INR Reflex, POCT, B 2.5 10/11/2023 7:25 AM CDT [facility] Comment: ----ADDITIONAL INFORMATION---- Standard intensity warfarin therapeutic range: 2.0 to 3.0 ?? High intensity warfarin therapeutic range: 2.5 to 3.5 Blood (Blood, Capillary) 10/11/2023 7:25 AM CDT 10/11/2023 7:25 AM CDT Stefan Salomon M.D. LAB POCT ORDERABLES - DEVICE Performing Organization Address City/State/[facility] Co de Phone Number [facility] [address] [place] [address], [facility] [place] [address] * Lipid Panel (04/19/2023 7:39 AM HONE OPERATOR) Triglycerides 113 mg/dL 04/19/2023 11:48 AM HONE OPERATOR [facility] Comment: ----REFERENCE VALUE---- Normal: <150 mg/dL Borderline High: 150-199 mg/dL High: 200-499 mg/dL Very High: > or =500 mg/dL Cholesterol, Total 144 mg/dL 2022 11:48 AM HONE OPERATOR [place] Comment: ----REFERENCE VALUE---- Desirable: < 200 mg/dL Borderline High: 200 - 239 mg/dL High: > or = 240 mg/dL Cholesterol, LDL, Calculated 76 mg/dL 04/19/2023 12:10 PM HONE OPERATOR [facility] Comment: ----REFERENCE VALUE---- Desirable: <100 mg/dL Above Desirable: 100-129 mg/dL Borderline High: 130-159 mg/dL High: 160-189 mg/dL Very High: >=190 mg/dL ----ADDITIONAL INFORMATION---- LDL cholesterol calculated using the Sosa/NIH equation. Cholesterol, HDL 48 >=40 mg/dL 04/19/20 12:10 PM HONE OPERATOR [facility] Cholesterol, Non-HDL, Calculated 96 mg/dL 04/19/2023 12:10 PM HONE OPERATOR [facility] Comment: ----REFERENCE VALUE---- Desirable: <130 mg/dL Above Desirable: 130-159 mg/dL Borderline High: 160-189 mg/dL High: 190-219 mg/dL Very High: > or =220 mg/dL Fasting (8 HR or more) No 04/19/2023 7:40 AM HONE OPERATOR [facility] Blood (Blood, Venous) 04/19/2023 7:39 AM HONE OPERATOR 04/19/2023 7:40 AM HONE OPERATOR Stefan Salomon M.D. LAB BLOOD ADD-ON [facility] [address] [place] [address], [facility] CNFL [facility] [place] [address] * Basic Metabolic Panel (04/19/2023 7:39 AM HONE OPERATOR) Potassium, P 4.1 3.6 - 5.2 mmol/L 04/19/2023 11:48 AM HONE OPERATOR [facility]FL Sodium, P 138 135 - 145 mmol/L 04/19/2023 11:48 AM HONE OPERATOR [facility] Chloride, P 102 98 - 107 mmol/L 04/19/2023 11:48 AM HONE OPERATOR [facility] Bicarbonate, P 23 22 - 29 mmol/L 04/19/2023 11:48 AM HONE OPERATOR [facility] Anion Gap, P 13 7 - 15 04/19/2023 11:48 AM HONE OPERATOR [facility] BUN (Blood Urea Nitrogen), P 21 8 - 24 mg/dL 04/19/2023 11:48 AM HONE OPERATOR [facility] Creatinine 0.87 0.74 - 1.35 mg/dL 04/19/2023 11:48 AM HONE OPERATOR [facility] Estimated GFR (eGFR) >90 >=60 mL/min/BSA 04/19/2023 11:48 AM HONE OPERATOR [facility] Comment: Estimated GFR calculated using the 2020 CKD_EPI creatinine equation. Calcium, Total, P 9.1 8.8 - 10.2 mg/dL 04/19/2023 11:48 AM HONE OPERATOR [facility] Glucose, P 103 70 - 140 mg/dL 04/19/2023 11:48 AM HONE OPERATOR [facility] Blood (Blood, Venous) 04/19/2023 7:39 AM HONE OPERATOR 04/19/2023 7:40 AM HONE OPERATOR Stefan Salomon M.D. LAB BLOOD ADD-ON Performing Organization Address City/[facility]/ZIP Co de Phone Number [facility] [address] [place] [address], [place] CNFL [facility] in [address] [address] * HCV Ab w/Reflex to HCV PCR, S (medicare) (06/15/2016 9:01 AM HONE OPERATOR) Pathologist [facility] HXHCV Ab [facility] Reactive Negative POWERCHART Comment: Supplemental testing for HCV RNA is ordered to rule out active HCV infection. Gsekwr-wu-zlztys ratio is >=1.00 and <8.00. Test Performed by: [place] [address] Nuclear Auxiliary Operator: Armando Chavez II, M.D., Ph.D. Blood 06/15/2016 9:01 AM HONE OPERATOR Abraham Valle M.D. LAB MICROBIOLOGY - B LOOD ORDERABLES Performing Organization Address City/[facility]/ZIP Co de Phone Number POWERCHART * Colonoscopy (12/27/2014) Pathologist [facility] EXT Colonoscopy Abnormal - See Scanned Report [...] IMPRESSION: Normal abdominal aorta Sulaiman Ordaz Jr., RCotyD.M.S. IMG US PROCEDURES from Last 3 Months or Most Recently Relevant to Health Maintenance Care Teams Head Of Housekeeping Relationship Specialty Start Date End Date Stefan Salomon M.D. [address] [place] [phone] PCP - General Family Medicine 07/09/22 Anticoagulation Team 07/09/22
--- OUTSIDE RECORDS SUMMARY | 2023-11-12 08:12 | XMS_ITS | Referral Summary ---
Author Organization [facility] Address [address] [place] [address] Care Team Providers Care Donor Recruitment Manager Name Role Phone Stefan Salomon M.D. Primary Care Provider [phone] Source Comments Patient records contain information from all sites at [facility]. For routine questions regarding patient records, call [phone] during business hours, M-F 8:00 AM - 5:00 PM Central Time. Record requests for emergency care only can be directed to [phone] at any time.[facility] Encounters Date Type Department Care Team Description 11/05/2023 Refill Department of Family Medicine, [facility], in [address] [phone] Stefan Salomon M.D. Med Refill 10/23/2023 1:20 PM CDT Office Visit Department of Dermatology in [place], [place] [address] [place] [phone] Indira Gold M.D. Keratosis Seborrheic Inflamed [L82.0] (Primary Dx); Pruritus; Keratosis Actinic; Dermatitis 10/15/2023 3:30 PM CDT Anticoagulation Visit Department of Anticoagulation in [place], [place] [address] [place] [address] Stefan Salomon M.D. Anticoagulant Therapy [Z79.01] (Primary Dx); Mutation Factor V Leiden Heterozygous (HCC); Monitoring For Therapeutic Drug Therapy [Z51.81]; Thrombosis Deep Vein Personal History 10/11/2023 7:16 AM CDT - 10/11/2023 11:59 PM CDT Hospital Encounter Department of Laboratory Medicine in [address] [phone] Stefan Salomon M.D. Anticoagulant Therapy; Mutation Factor V Leiden Heterozygous (HCC); Monitoring For Therapeutic Drug Therapy; Thrombosis Deep Vein Personal History Discharge Disposition: Home or Self Care 10/10/2023 Refill Department of Family Medicine, [facility], [address] [address] Stefan Salomon M.D. Med Refill 09/24/2023 Refill Department of Family Medicine, [facility], [address] [address] Stefan Salomon M.D. Med Refill 09/20/2023 7:10 AM CDT - 09/20/2023 11:59 PM CDT Hospital Encounter Department of Laboratory Medicine in [address] [address] Stefan Salomon M.D. Anticoagulant Therapy; Mutation Factor V Leiden Heterozygous (HCC); Monitoring For Therapeutic Drug Therapy; Thrombosis Deep Vein Personal History Discharge Disposition: Home or Self Care 09/20/2023 11:00 AM CDT Anticoagulation Visit Department of Anticoagulation in [place] [address] [place] [address] Stefan Salomon M.D. Thrombosis Deep Vein Personal History (Primary Dx); Anticoagulant Therapy; Mutation Factor V Leiden Heterozygous (HCC); Monitoring For Therapeutic Drug Therapy; Hypertension Essential Primary 09/13/2023 7:10 AM CDT - 09/13/2023 11:59 PM CDT Hospital Encounter Department of Laboratory Medicine in [address] [address] Stefan Salomon M.D. Anticoagulant Therapy [Z79.01]; Mutation Factor V Leiden Heterozygous (HCC); Monitoring For Therapeutic Drug Therapy [Z51.81]; Thrombosis Deep Vein Personal History Discharge Disposition: Home or Self Care 09/13/2023 9:30 AM CDT Anticoagulation Visit Department of Anticoagulation in [place], [place] [address] [place] [phone] Stefan Salomon M.D. Anticoagulant Therapy; Mutation Factor V Leiden Heterozygous (HCC); Monitoring For Therapeutic Drug Therapy; Thrombosis Deep Vein Personal History 09/03/2023 Refill Department of Family Medicine, [facility], in [address] [phone] Nicholas Olsen M.D., Ph.D. Med Refill 08/23/2023 9:30 AM CDT Anticoagulation Visit Department of Anticoagulation in [place], [place] [address] [place] [phone] Stefan Salomon M.D. Mutation Factor V Leiden Heterozygous (HCC) (Primary Dx); Anticoagulant Therapy [Z79.01]; Monitoring For Therapeutic Drug Therapy [Z51.81]; Thrombosis Deep Vein Personal History 08/23/2023 7:35 AM CDT - 08/23/2023 11:59 PM CDT Hospital Encounter Department of Laboratory Medicine in [address] [address] Stefan Salomon M.D. Anticoagulant Therapy [Z79.01]; Mutation Factor V Leiden Heterozygous (HCC); Monitoring For Therapeutic Drug Therapy [Z51.81]; Thrombosis Deep Vein Personal History Discharge Disposition: Home or Self Care from Last 3 Months Allergies Active Allergy Reactions Criticality Noted Date Comments Atorvastatin Myalgia 02/08/2017 Leg Pain/Cramps Lqzhabi-Zgm-Pgm Reductase Inhibitors Other (see comments) 09/10/2022 Medications [...] 11/18/2011 Overview: Saw Neurologist at [facility] on 09/16/2009. MRI lumbar spine done on [...] often do you attend oriental orthodox or mormonism serv ices? Never 07/09/2022 Do [...] file Gender Identity Male 07/02/2017 9:12 AM COMPUTATIONAL SCIENTIST Sexual Orientation Straight 07/02/2017 9: 12 AM COMPUTATIONAL SCIENTIST Last Filed Vital Signs Vital Sign Reading Time Taken Comments Blood Pressure 148/82 06/12/2023 4:23 PM COMPUTATIONAL SCIENTIST Pulse 63 06/12/2023 4:23 PM COMPUTATIONAL SCIENTIST Temperature 36.6 ??C (97.9 ??F) 06/12/2023 4:23 PM CS T Respiratory Rate 18 06/12/2023 4:23 PM COMPUTATIONAL SCIENTIST Oxygen Saturation 94% 06/12/2023 4:23 PM COMPUTATIONAL SCIENTIST Inhaled Oxygen Concentration - - Weight 95.6 kg (210 lb 12.2 oz) 06/12/2023 4:23 PM COMPUTATIONAL SCIENTIST Height 176.5 cm (5' 9.49) 08/01/2022 9:59 AM CS T Body Mass Index 30.69 08/01/2022 9:59 AM COMPUTATIONAL SCIENTIST Plan of Treatment Upcoming Encounters Date Type Department Care Team (Latest Contact Info) Description 11/22/2023 8:50 AM CDT Appointment Department of Laboratory Medicine in [address] [phone] Stefan Salomon M.D. [address] [place] [phone] 11/22/2023 9:30 AM CDT Anticoagulation Visit Department of Anticoagulation in [place], [place] [address] [place] [address] Stefan Salomon M.D. [address] [place] [phone] Medical Devices Implanted Type Area Lines Tender Device Identifier Shelf Expiration Date Model / Serial / Lot Mineralized Cancellous Bone 2.0 - Anne [id number] Implanted:Qty: 1 on 08/10/2015 Bone or Tissue Tooth [employer] Description:Device Manufactu rer [employer]. Body Location - Other. tooth-13. Device Status Text - [id number]. Hardware E.G. Pins/Screws/Rk s Hardware e.g. pins/screws /rods Mouth Abutment Nobrpl Rp 4.3x5 - Anne [id number] Implanted:Qty: 1 on 07/03/2007 Hardware e.g. pins/screws /rods Tooth [employer] Description:Device Manufactu rer - [employer]. Body Location - Tooth 5. Device Status Text - [id number]. Screw Rst Curly Taper Rp 4.3x13.0 - Anne [id number] Implanted:Qty: 1 on 07/03/2007 Hardware e.g. pins/screws /rods Tooth [employer] Description:Device Manufactu rer - [employer]. Body Location - Tooth 5. Device Status Text - [id number]. Screw Nobrpl Curly Tap New Business Clerk 3.5x11.5 - Anne [id number] Implanted:Qty: 1 on 03/03/2012 Hardware e.g. pins/screws /rods Tooth [employer] Description:Device Manufactu rer - [employer]. Body Location - Tooth 29. Device Status Text - [id number]. Abutment Nobrpl New Business Clerk 3.5x5 - Anne [id number] Implanted:Qty: 1 on 03/03/2012 Hardware e.g. pins/screws /rods Tooth [employer] Description:Device Manufactu rer - [employer]. Body Location - Tooth 29. Device Status Text - [id number]. Abutment Nobrpl New Business Clerk 3.5x3 - Anne [id number] Implanted:Qty: 1 on 08/23/2014 Hardware e.g. pins/screws /rods Tooth [employer] Description:Device Manufactu rer - [employer]. Body Location - Other. tooth- 28. Device Status Text - [id number]. Abutment Nobrpl New Business Clerk 3.5x3 - Anne [id number] Implanted:Qty: 1 on 08/23/2014 Hardware e.g. pins/screws /rods Tooth [employer] Description:Device Manufactu rer - [employer]. Body Location - Other. tooth- 28. Device Status Text - [id number]. Screw Nobrpl Curly Taper New Business Clerk 3.5x13.0 - Anne [id number] Implanted:Qty: 1 on 08/23/2014 Hardware e.g. pins/screws /rods Tooth [employer] Description:Device Manufactu rer - [employer]. Body Location - Other. tooth- 28. Device Status Text - [id number]. Screw Nobrpl Curly Taper Rp 4.3x10.0 - Anne [id number] Implanted:Qty: 1 on 08/10/2015 Hardware e.g. pins/screws /rods Tooth [employer] Description:Device Manufactu rer - [employer]. Body Location - Other. tooth- 20. Device Status Text - [id number]. Brane Fix Rst Tiunite Rp 4.3 X 13.0 - Anne [id number] Implanted:Qty: 1 on 08/10/2015 Hardware e.g. pins/screws /rods Tooth [employer] Description:Device Manufactu rer - [employer]. Body Location - Other. tooth- 21. Device Status Text - [id number]. Brane Fix Rst Tiunite Rp 4.3 X 13.0 - Anne [id number] Implanted:Qty: 1 on 08/10/2015 Hardware e.g. pins/screws /rods Tooth [employer] Description:Device Manufactu rer - [employer]. Body Location - Other. tooth- 13. Device Status Text - [id number]. Brane Fix Rst Tiunite Rp 4.3 X 13.0 - Anne [id number] Implanted:Qty: 1 on 08/10/2015 Hardware e.g. pins/screws /rods Tooth [employer] Description:Device Manufactu rer - [employer]. Body Location - Other. tooth- 11. Device Status Text - [id number]. Abutment Nobrpl Rp 4.3x3 - Anne [id number] Implanted:Qty: 1 on 02/08/2016 Hardware e.g. pins/screws /rods Tooth [employer] Description:Device Manufactu rer - [employer]. Body Location - Other. tooth- 20. Device Status Text - [id number]. Abutment Nobrpl Rp 5.3x3 - Anne [id number] Implanted:Qty: 1 on 02/08/2016 Hardware e.g. pins/screws /rods Tooth [employer] Description:Device Manufactu rer - [employer]. Body Location - Other. tooth- 13. Device Status Text - [id number]. Abutment Nobrpl Rp 4.3x3 - Anne [id number] Implanted:Qty: 1 on 02/08/2016 Hardware e.g. pins/screws /rods Tooth [employer] Description:Device Manufactu rer - [employer]. Body Location - Other. tooth- 21. Device Status Text - [id number]. Abutment Nobrpl Rp 4.3x3 - Anne [id number] Implanted:Qty: 1 on 02/08/2016 Hardware e.g. pins/screws /rods Tooth [employer] Description:Device Manufactu rer - [employer]. Body Location - Other. tooth- 11. Device Status Text - [id number]. Patch Dura-Guard 4x 4 - Anne [id number] Implanted:Qty: 1 on 08/19/1996 Mesh or Patch [employer] Description:Device Manufactu rer - [employer]. Device Status Text - [id number]. Allograft Bioxclude Chorion 1cm X 2.5cm - Anne [id number] Implanted:Qty: 1 on 01/15/2014 Mesh or Patch Tooth Unknown Description:Device Manufactu rer - Unknown. Body Location - tooth-28. Device Status Text - [id number]. Allograft Bioxclude Chorion 1cm X 2.5cm - Anne [id number] Implanted:Qty: 1 on 01/15/2014 Mesh or Patch Tooth Unknown Description:Device Manufactu rer - Unknown. Body Location - tooth-5. Device Status Text - [id number]. Allograft Bioxclude Chorion 1.5cm X 2cm - Anne [id number] Implanted:Qty: 1 on 08/10/2015 Mesh or Patch Other/Legacy - See Implant Description Unknown Description:Device Manufactu rer - Unknown. Body Location - Other. Left. Device Status Text - [id number]. Procedures Procedure Name Priority Date/Time Associated Diagnosis [...] LIPID PANEL, S Routine 04/19/2023 7:39 AM COMPUTATIONAL SCIENTIST Hyperlipidemia BASIC METABOLIC PANEL, S/P Routine 04/19/2023 7:39 AM COMPUTATIONAL SCIENTIST Hypertension Essential Primary HCV AB SCRN W/REFLEX TO HCV PCR, S Routine 06/15/2016 9:01 AM COMPUTATIONAL SCIENTIST COLONOSCOPY Routine 12/27/2014 US AORTA Routine 11/09/2014 8:30 AM CDT from Last 3 Months or Most Recently Relevant to Health Maintenance Results * INR Reflex, POCT, Blood (10/11/2023 7:25 AM CDT) Only the most recent of4 resultswithin the time period is included. INR Reflex, POCT, B 2.5 10/11/2023 7:25 AM CDT [facility] Comment: ----ADDITIONAL INFORMATION---- Standard intensity warfarin therapeutic range: 2.0 to 3.0 ?? High intensity warfarin therapeutic range: 2.5 to 3.5 Blood (Blood, Capillary) 10/11/2023 7:25 AM CDT 10/11/2023 7:25 AM CDT Stefan Salomon M.D. LAB POCT ORDERABLES - DEVICE [facility] [address] [place] [id number], [facility] in [address] [address] * Lipid Panel (04/19/2023 7:39 AM COMPUTATIONAL SCIENTIST) Triglycerides 113 mg/dL 04/19/2023 11:48 AM COMPUTATIONAL SCIENTIST [facility] Comment: ----REFERENCE VALUE---- Normal: <150 mg/dL Borderline High: 150-199 mg/dL High: 200-499 mg/dL Very High: > or =500 mg/dL Cholesterol, Total 144 mg/dL 2022 11:48 AM COMPUTATIONAL SCIENTIST [facility] Comment: ----REFERENCE VALUE---- Desirable: < 200 mg/dL Borderline High: 200 - 239 mg/dL High: > or = 240 mg/dL Cholesterol, LDL, Calculated 76 mg/dL 04/19/2023 12:10 PM COMPUTATIONAL SCIENTIST [facility] Comment: ----REFERENCE VALUE---- Desirable: <100 mg/dL Above Desirable: 100-129 mg/dL Borderline High: 130-159 mg/dL High: 160-189 mg/dL Very High: >=190 mg/dL ----ADDITIONAL INFORMATION---- LDL cholesterol calculated using the Sosa/NIH equation. Cholesterol, HDL 48 >=40 mg/dL 04/19/20 12:10 PM COMPUTATIONAL SCIENTIST [facility] Cholesterol, Non-HDL, Calculated 96 mg/dL 04/19/2023 12:10 PM COMPUTATIONAL SCIENTIST [facility] Comment: ----REFERENCE VALUE---- Desirable: <130 mg/dL Above Desirable: 130-159 mg/dL Borderline High: 160-189 mg/dL High: 190-219 mg/dL Very High: > or =220 mg/dL Fasting (8 HR or more) No 04/19/2023 7:40 AM COMPUTATIONAL SCIENTIST [facility] Blood (Blood, Venous) 04/19/2023 7:39 AM COMPUTATIONAL SCIENTIST 04/19/2023 7:40 AM COMPUTATIONAL SCIENTIST Stefan Salomon M.D. LAB BLOOD ADD-ON [facility] [address] [place] [address], [facility] in [address] [address] * Basic Metabolic Panel (04/19/2023 7:39 AM COMPUTATIONAL SCIENTIST) Potassium, P 4.1 3.6 - 5.2 mmol/L 04/19/2023 11:48 AM COMPUTATIONAL SCIENTIST [facility] Sodium, P 138 135 - 145 mmol/L 04/19/2023 11:48 AM COMPUTATIONAL SCIENTIST [facility] Chloride, P 102 98 - 107 mmol/L 04/19/2023 11:48 AM COMPUTATIONAL SCIENTIST [facility] Bicarbonate, P 23 22 - 29 mmol/L 04/19/2023 11:48 AM COMPUTATIONAL SCIENTIST [facility] Anion Gap, P 13 7 - 15 04/19/2023 11:48 AM COMPUTATIONAL SCIENTIST [facility] BUN (Blood Urea Nitrogen), P 21 8 - 24 mg/dL 04/19/2023 11:48 AM COMPUTATIONAL SCIENTIST [facility] Creatinine 0.87 0.74 - 1.35 mg/dL 04/19/2023 11:48 AM COMPUTATIONAL SCIENTIST [facility] Estimated GFR (eGFR) >90 >=60 mL/min/BSA 04/19/2023 11:48 AM COMPUTATIONAL SCIENTIST [facility] Comment: Estimated GFR calculated using the 2020 CKD_EPI creatinine equation. Calcium, Total, P 9.1 8.8 - 10.2 mg/dL 04/19/2023 11:48 AM COMPUTATIONAL SCIENTIST [facility] Glucose, P 103 70 - 140 mg/dL 04/19/2023 11:48 AM COMPUTATIONAL SCIENTIST [facility] Blood (Blood, Venous) 04/19/2023 7:39 AM COMPUTATIONAL SCIENTIST 04/19/2023 7:40 AM COMPUTATIONAL SCIENTIST Stefan Salomon M.D. LAB BLOOD ADD-ON [facility] [address] [place] [address], [place] [facility] in [address] [address] * HCV Ab w/Reflex to HCV PCR, S (medicare) (06/15/2016 9:01 AM COMPUTATIONAL SCIENTIST) HXHCV Ab [facility] Reactive Negative POWERCHART Comment: Supplemental testing for HCV RNA is ordered to rule out active HCV infection. Mlmlcb-mx-kqmbtw ratio is >=1.00 and <8.00. Test Performed by: [facility] - [address] [address] Medical Collections: Armando Chavez II, M.D., Ph.D. Blood 06/15/2016 9:01 AM COMPUTATIONAL SCIENTIST Abraham Valle M.D. LAB MICROBIOLOGY - B [...] IMPRESSION: Normal abdominal aorta Sulaiman Ordaz Jr., REmilia.M.S. IMG US PROCEDURES from Last 3 Months or Most Recently Relevant to Health Maintenance Care Teams Donor Recruitment Manager Relationship Specialty Start Date End Date Stefan Salomon M.D. [address] [place] [phone] PCP - General Family Medicine 07/09/22 Anticoagulation Team 07/09/22
--- OUTSIDE RECORDS SUMMARY | 2023-11-12 08:12 | XMS_ITS | Encounter Summary ---
Author Organization [facility] Address [address] [place] [address] Care Team Providers Care Streetcar Repairer Name Role Phone Stefan Salomon M.D. Primary Care Provider [phone] Reason for Visit * Reason Comments Med Refill Encounter Details Date Type Department Care Team (Late st Contact Info) Description 09/03/2023 Refill Department of Family Medicine, [facility], in [address] [phone] Nicholas Olsen M.D., Ph.D. [address] [place] [address] Med Refill Social History Tobacco Use Types [...] How often do you attend jewish or restorationist serv ices? Never 07/09/2022 Do [...] Answer Date Recorded PHQ-2 Score 0 06/12/2023 [facility] - [...] file Gender Identity Male 07/02/2017 9:12 AM NEWSPAPER COPY EDITOR Sexual Orientation Straight 07/02/2017 9: 12 AM NEWSPAPER COPY EDITOR documented as of this encounter Miscellaneous Notes [...] CDT Appointment Department of Laboratory Medicine in [address] [phone] Stefan Salomon M.D. [address] [place] [phone] 11/22/2023 9:30 AM CDT Anticoagulation Visit Department of Anticoagulation in [place] [address] [place] [address] Stefan Salomon M.D. [address] [place] [phone] documented as of this encounter Visit Diagnoses Diagnosis Chronic Pain Syndrome Degeneration Disc Cervical Polyarthralgia documented in this encounter Additional Health Concerns Assessment Noted Time PHQ-9 Depression Total Score: 1 06/12/19 24 4:14 PM NEWSPAPER COPY EDITOR documented as of this encounter Care Teams Streetcar Repairer Relationship Specialty Start Date End Date Stefan Salomon M.D. [address] [place] [phone] PCP - General Family Medicine 07/09/22 Anticoagulation Team 07/09/22 documented as of this encounter
--- OUTSIDE RECORDS SUMMARY | 2023-11-12 08:12 | XMS_ITS | Encounter Summary ---
Author Organization [facility] Address [address] [place] [address] Care Team Providers Care Silver Steward Name Role Phone Stefan Salomon M.D. Primary Care Provider [phone] Encounter Details Date Type Department Care Team (Latest Contact Info) Description 09/20/2023 7:10 AM CDT - 09/20/2023 11:59 PM CDT Hospital Encounter Department of Laboratory Medicine in [address] [phone] Stefan Salomon M.D. [address] [place] [phone] Anticoagulant Therapy; Mutation Factor V Leiden Heterozygous [...] How often do you attend shinto or voodoo serv ices? Never 07/09/2022 Do [...] 06/12/2023 [facility] [...] file Gender Identity Male 07/02/2017 9:12 AM CONCHE LOADER AND UNLOADER Sexual Orientation Straight 07/02/2017 9: 12 AM CONCHE LOADER AND UNLOADER documented as of this encounter Medications at [...] Pain/Nonacute Pain. for pain 240 tablet 09/06/2023 10/10/2023 warfarin (COUMADIN) 5 mg tabletIndications:A nticoagulant Therapy,Mutation Factor V Leiden Heterozygous (HCC),Monitoring For Therapeutic Drug Therapy,Thrombosis Deep Vein Personal History Please take as directed by your Anticoagulation Clinic. 130 tablet 3 10/18/2022 09/24/2023 documented as of this encounter Plan of Treatment Upcoming Encounters Date Type Department Care Team (Latest Contact Info) Description 11/22/2023 8:50 AM CDT Appointment Department of Laboratory Medicine in [address] [phone] Stefan Salomon M.D. [address] [place] [phone] 11/22/2023 9:30 AM CDT Anticoagulation Visit Department of Anticoagulation in [place], [place] [address] [place] [address] Stefan Salomon M.D. [address] [place] [phone] documented as of this encounter Procedures Procedure Name Priority Date/Time Associated Diagnosis Comments INR REFLEX, POCT, B Routine 09/20/2023 7 :20 AM CDT documented in this encounter Results * INR Reflex, POCT, Blood (09/20/2023 7:20 AM CDT) INR Reflex, POCT, B 2.3 09/20/2023 7:20 AM CDT [facility] Comment: ----ADDITIONAL INFORMATION---- Standard intensity warfarin therapeutic range: 2.0 to 3.0 ?? High intensity warfarin therapeutic range: 2.5 to 3.5 Blood 09/20/2023 7:20 AM CDT 09/20/2023 7:32 AM CDT Generic [facility] LAB POCT ORDERABLES - DEVICE Performing Organization Address City/State/[facility] Co de Phone Number [facility] [address] [place] [id number], [facility] [address] [address] documented in this encounter Visit Diagnoses Diagnosis Anticoagulant Therapy Mutation Factor V Leiden Heterozygous (HCC) Monitoring For Therapeutic Drug Therapy Thrombosis Deep Vein Personal History documented in this encounter Additional Health Concerns Assessment Noted Time PHQ-9 Depression Total Score: 1 06/12/19 24 4:14 PM CONCHE LOADER AND UNLOADER documented as of this encounter Care Teams Silver Steward Relationship Specialty Start Date End Date Stefan Salomon M.D. [address] [place] [address] [place] [phone] PCP - General Family Medicine 07/09/22 Anticoagulation Team 07/09/22 documented as of this encounter
--- OUTSIDE RECORDS SUMMARY | 2023-11-12 08:12 | XMS_ITS | Encounter Summary ---
Author Organization [facility] Address [address] [place] [address] Care Team Providers Care Home Advisor Name Role Phone Stefan Salomon M.D. Primary Care Provider [phone] Reason for Visit * Outpatient (Routine) - Authorized Specialty Diagnoses / Procedures Referred By Contac t Referred To Contact Anticoagulation Diagnoses Anticoagulant Therapy Mutation Factor V Leiden Heterozygous (HCC) Monitoring For Therapeutic Drug Therapy Thrombosis Deep Vein Personal History Stefan Salomon M.D. [address] [phone] [facility] Referral ID Status Reason Start Date Expiration Date V isits Requested Visits Authorized [id number] Authorized 02/01/2023 01/31/2026 300 300 Encounter Details Date Type Department Care Team (Latest Contact Info) Description 09/20/2023 11:00 AM CDT Anticoagulation Visit Department of Anticoagulation in [place], [place] [address] [place] [address] Stefan Salomon M.D. [address] [phone] Thrombosis Deep Vein Personal History (Primary [...] How often do you attend rastafarian or jewish serv ices? Never 07/09/2022 Do [...] Answer Date Recorded PHQ-2 Score 0 06/12/2023 [facility] [place] of Occupat ional Health - Occupational [...] file Gender Identity Male 07/02/2017 9:12 AM SUBSTATION INSPECTOR Sexual Orientation Straight 07/02/2017 9: 12 AM SUBSTATION INSPECTOR documented as of this encounter Patient [...] please call Primary Care Anticoagulation Program at [phone] from 7:30 am to 4:30 pm. Saturday-Saturday [...] if you start any herbal or other bpih-gnb-rcsvucl product (check with your doctor, a nurse, [...] CDT Appointment Department of Laboratory Medicine in [address] [phone] Stefan Salomon M.D. [address] [place] [phone] 11/22/2023 9:30 AM CDT Anticoagulation Visit Department of Anticoagulation in [place], [place] [address] [place] [address] Stefan Salomon M.D. [address] [place] [phone] documented as of this encounter Results * INR Reflex, POCT, Blood (10/11/2023 7:25 AM CDT) INR Reflex, POCT, B 2.5 10/11/2023 7:25 AM CDT [facility] Comment: ----ADDITIONAL INFORMATION---- Standard intensity warfarin therapeutic range: 2.0 to 3.0 ?? High intensity warfarin therapeutic range: 2.5 to 3.5 Blood (Blood, Capillary) 10/11/2023 7:25 AM CDT 10/11/2023 7:25 AM CDT Stefan Salomon M.D. LAB POCT ORDERABLES - DEVICE Performing Organization Address City/State/[facility] Co de Phone Number [facility] [address] [place] [phone], [facility] in [address] [address] documented in this encounter Visit Diagnoses Diagnosis Thrombosis Deep Vein Personal History- Primary Anticoagulant Therapy Mutation Factor V Leiden Heterozygous (HCC) Monitoring For Therapeutic Drug Therapy Hypertension Essential Primary documented in this encounter Additional Health Concerns Assessment Noted Time PHQ-9 Depression Total Score: 1 06/12/19 24 4:14 PM SUBSTATION INSPECTOR documented as of this encounter Care Teams Home Advisor Relationship Specialty Start Date End Date Stefan Salomon M.D. [address] [place] [phone] PCP - General Family Medicine 07/09/22 Anticoagulation Team 07/09/22 documented as of this encounter
--- OUTSIDE RECORDS SUMMARY | 2023-11-12 08:12 | XMS_ITS | Encounter Summary ---
Author Organization [facility] Address [address] [place] [address] Care Team Providers Care Pre Billing Specialist Name Role Phone Stefan Salomon M.D. Primary Care Provider [phone] Reason for Visit * Outpatient (Routine) - Authorized Specialty Diagnoses / Procedures Referred By Contac t Referred To Contact Anticoagulation Diagnoses Anticoagulant Therapy Mutation Factor V Leiden Heterozygous (HCC) Monitoring For Therapeutic Drug Therapy Thrombosis Deep Vein Personal History Stefan Salomon M.D. [address] [address] [facility] Referral ID Status Reason Start Date Expiration Date V isits Requested Visits Authorized [id number] Authorized 02/01/2023 01/31/2026 300 300 Encounter Details Date Type Department Care Team (Latest Contact Info) Description 09/13/2023 9:30 AM CDT Anticoagulation Visit Department of Anticoagulation in [place], [place] [address] [place] [address] Stefan Salomon M.D. [address] [phone] Anticoagulant Therapy; Mutation Factor V Leiden [...] How often do you attend gnosticism or shinto serv ices? 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 - 09/13/2023 9:30 AM CDT Your next INR will be 09/20/23. You will need to call the Anticoagulation Program for warfarin dosing at the scheduled time for your nurse visit, as indicated on your Patient Appointment Guide (PAG). To reschedule your appointment or for questions about your warfarin, please call Primary Care Anticoagulation Program at [phone] from 7:30 am to 4:30 pm. Saturday-Saturday [...] if you start any herbal or other cxgk-tyo-kkkyujz product (check with your doctor, a nurse, [...] CDT Appointment Department of Laboratory Medicine in [address] [phone] Stefan Salomon M.D. [address] [phone] 11/22/2023 9:30 AM CDT Anticoagulation Visit Department of Anticoagulation in [place], [place] [address] [place] [address] Stefan Salomon M.D. [address] [place] [phone] documented as of this encounter Visit Diagnoses Diagnosis Anticoagulant Therapy Mutation Factor V Leiden Heterozygous (HCC) Monitoring For Therapeutic Drug Therapy Thrombosis Deep Vein Personal History documented in this encounter Additional Health Concerns Assessment Noted Time PHQ-9 Depression Total Score: 1 06/12/19 24 4:14 PM REVENUE STAMP CLERK documented as of this encounter Care Teams Pre Billing Specialist Relationship Specialty Start Date End Date Stefan Salomon M.D. [address] [place] [phone] PCP - General Family Medicine 07/09/22 Anticoagulation Team 07/09/22 documented as of this encounter
--- OUTSIDE RECORDS SUMMARY | 2023-11-12 08:12 | XMS_ITS | Encounter Summary ---
Author Organization [facility] Address [address] [place] [address] Care Team Providers Care Technical Staff Assistant Name Role Phone Stefan Salomon M.D. Primary Care Provider [phone] Reason for Referral * Outpatient (Routine) - Authorized Specialty Diagnoses / Procedures Referred By Piero t Referred To Contact Family Medicine Kolton Soriano P.A.-C., P.A. [address] [place] [phone] [facility] Region Referral ID Status Reason Start Date Expiration Date V isits Requested Visits Authorized [id number] Authorized 10/10/2023 04/10/2025 1 1 Scheduling Instructions 6 month follow up Reason for Visit * Reason Comments Med Refill Encounter Details Date Type Department Care Team (Late st Contact Info) Description 10/10/2023 Refill Department of Family Medicine, [facility], in [address] [phone] Stefan Salomon M.D. [address] [place] [phone] Med Refill Social History Tobacco Use Types [...] How often do you attend sabianism or hindu serv ices? 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 - 10/10/2023 1:55 PM CDT Controlled substance renewal for Tramadol 50 mg: No nursing concerns Renewal is pended per the controlled substance prescribing plan located in Synopsis Controlled Substances Date last renewed (start date): 09/06/2023 Last provider visit: 06/12/2023 Last urine drug screen: 02/21/2023 ; Next due: 02/22/2024 Screenings due: current Next provider visit due: 12/11/2023; visit order pended Chronic Opioid therapy agreement last reviewed/signed: 06/12/2023 This prescription may be filled on 10/10/2023, and next renewal may be on or after 11/09/2023 documented in this encounter Plan of Treatment Upcoming Encounters Date Type Department Care Team (Latest Contact Info) Description 11/22/2023 8:50 AM CDT Appointment Department of Laboratory Medicine in [address] [phone] Stefan Salomon M.D. [address] [place] [phone] 11/22/2023 9:30 AM CDT Anticoagulation Visit Department of Anticoagulation in [address] [phone] Stefan Salomon M.D. [address] [place] [phone] Scheduled Referrals Name Type Priority Associated Diagnoses Orde r Schedule Family Medicine office visit (clinic) Outpatient Referral Routine Expected: 12/11/2023 (Approximate), Expires: 01/09/2025 documented as of this encounter Visit Diagnoses Diagnosis Chronic Pain Syndrome Degeneration Disc Cervical Polyarthralgia documented in this encounter Additional Health Concerns Assessment Noted Time PHQ-9 Depression Total Score: 1 06/12/19 24 4:14 PM SPOUTING INSTALLER documented as of this encounter Care Teams Technical Staff Assistant Relationship Specialty Start Date End Date Stefan Salomon M.D. [address] [phone] PCP - General Family Medicine 07/09/22 Anticoagulation Team 07/09/22 documented as of this encounter
--- OUTSIDE RECORDS SUMMARY | 2023-11-12 08:12 | XMS_ITS | Encounter Summary ---
Author Organization [facility] Address [address] [place] [address] Care Team Providers Care Channel Director Name Role Phone Stefan Salomon M.D. Primary Care Provider [phone] Reason for Visit * Outpatient (Routine) - Authorized Specialty Diagnoses / Procedures Referred By Contac t Referred To Contact Anticoagulation Diagnoses Anticoagulant Therapy Mutation Factor V Leiden Heterozygous (HCC) Monitoring For Therapeutic Drug Therapy Thrombosis Deep Vein Personal History Stefan Salomon M.D. [address] [phone] [facility] Referral ID Status Reason Start Date Expiration Date V isits Requested Visits Authorized [id number] Authorized 02/01/2023 01/31/2026 300 300 Encounter Details Date Type Department Care Team (Latest Contact Info) Description 08/23/2023 9:30 AM CDT Anticoagulation Visit Department of Anticoagulation in [place], [place] [address] [place] [address] Stefan Salomon M.D. [address] [phone] Mutation Factor V Leiden Heterozygous (HCC) [...] How often do you attend voodoo or taoist serv ices? 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 Saturday-Saturday [...] if you start any herbal or other jnyk-xsa-axidwdt product (check with your doctor, a nurse, [...] CDT Appointment Department of Laboratory Medicine in [address] [phone] Stefan Salomon M.D. [address] [phone] 11/22/2023 9:30 AM CDT Anticoagulation Visit Department of Anticoagulation in [place], [place] [address] [place] [address] Stefan Salomon M.D. [address] [phone] documented as of this encounter Visit Diagnoses Diagnosis Mutation Factor V Leiden Heterozygous (HCC)- Primary Anticoagulant Therapy [Z79.01] Monitoring For Therapeutic Drug Therapy [Z51.81] Thrombosis Deep Vein Personal History documented in this encounter Additional Health Concerns Assessment Noted Time PHQ-9 Depression Total Score: 1 06/12/19 24 4:14 PM CUSTOMER ENGINEER documented as of this encounter Care Teams Channel Director Relationship Specialty Start Date End Date Stefan Salomon M.D. [address] [phone] PCP - General Family Medicine 07/09/22 Anticoagulation Team 07/09/22 documented as of this encounter
--- OUTSIDE RECORDS SUMMARY | 2023-11-12 08:12 | XMS_ITS | Encounter Summary ---
Author Organization [facility] Address [address] [place] [address] Care Team Providers Care Business Support Administrator Name Role Phone Stefan Salomon M.D. Primary Care Provider [phone] Reason for Visit * Reason Comments Med Refill Encounter Details Date Type Department Care Team (Late st Contact Info) Description 09/24/2023 Refill Department of Family Medicine, [facility], in [address] [phone] Stefan Salomon M.D. [address] [place] [phone] Med Refill Social History Tobacco Use [...] week 07/09/2022 How often do you attend yazdanism or caodaism serv ices? 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 [address] [place] [phone] 11/22/2023 9:30 AM CDT Anticoagulation Visit Department of Anticoagulation in [place], [place] [address] [place] [address] Stefan Salomon M.D. [address] [place] [phone] documented as of this encounter Visit Diagnoses Diagnosis Anticoagulant Therapy Mutation Factor V Leiden Heterozygous (HCC) Monitoring For Therapeutic Drug Therapy Thrombosis Deep Vein Personal History documented in this encounter Additional Health Concerns Assessment Noted Time PHQ-9 Depression Total Score: 1 06/12/19 24 4:14 PM TIME STUDY OBSERVER documented as of this encounter Care Teams Business Support Administrator Relationship Specialty Start Date End Date Stefan Salomon M.D. [address] [place] [phone] PCP - General Family Medicine 07/09/22 Anticoagulation Team 07/09/22 documented as of this encounter
--- OUTSIDE RECORDS SUMMARY | 2023-11-12 08:12 | XMS_ITS | Encounter Summary ---
Author Organization [facility] Address [address] [place] [address] Care Team Providers Care Bilingual Office Assistant Name Role Phone Stefan Salomon M.D. Primary Care Provider [phone] Reason for Visit * Outpatient (Routine) - Authorized Specialty Diagnoses / Procedures Referred By Contac t Referred To Contact Anticoagulation Diagnoses Anticoagulant Therapy Mutation Factor V Leiden Heterozygous (HCC) Monitoring For Therapeutic Drug Therapy Thrombosis Deep Vein Personal History Stefan Salomon M.D. [address] [phone] [facility] Referral ID Status Reason Start Date Expiration Date V isits Requested Visits Authorized [id number] Authorized 02/01/2023 01/31/2026 300 300 Encounter Details Date Type Department Care Team (Latest Contact Info) Description 10/15/2023 3:30 PM CDT Anticoagulation Visit Department of Anticoagulation in [place], [place] [address] [place] [address] Stefan Salomon M.D. [address] [phone] Anticoagulant Therapy [Z79.01] (Primary Dx); Mutation [...] How often do you attend congregation or evangelical serv ices? 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 - 10/15/2023 3:30 PM CDT Your next INR will be 11/22/23. You will need to call the Anticoagulation Program for warfarin dosing at the scheduled time for your nurse visit, as indicated on your Patient Appointment Guide (PAG). To reschedule your appointment or for questions about your warfarin, please call Primary Care Anticoagulation Program at [phone] from 7:30 am to 4:30 pm. Saturday-Saturday [...] if you start any herbal or other rflp-yza-maaisuz product (check with your doctor, a nurse, or pharmacist). If you change your diet significantly. If you decide to stop or start using tobacco or alcohol. If you notice unusual bruising or bleeding. If you notice dark, tarry, or bright red stools or blood in your urine. If you have a painful and swollen calf. documented in this encounter Progress Notes * Jenise Bowden R.N. - 10/15/2023 3:30 PM CDT Warfarin Maintenance Nursing Protocol Goal [...] does NOT have atrial fibrillation/flutter, therefore no CHADS2/[id number]-ZPPk score calculated. Proceeded to maintenance warfarin dosing and follow-up, but offered patient return for follow-up INR in 6 weeks as 2 consecutive outpatient INRs within range. Additional Info: None Previous INR was therapeutic. Today???s INR is Therapeutic. Dosing and follow up recommendation: Protocol does not apply based on positive exclusion criteria indicated above stating consult required. Consulted Anticoagulation [facility] for plan. Currently bridging: no. INR is therapeutic/supratherapeutic. Additional dosing or follow-up information: None. Pt [...] CDT Appointment Department of Laboratory Medicine in [address] [phone] Stefan Salomon M.D. [address] [place] [phone] 11/22/2023 9:30 AM CDT Anticoagulation Visit Department of Anticoagulation in [place], [place] [address] [place] [address] Stefan Salomon M.D. [address] [place] [phone] Scheduled Orders Name Type Priority Associated Diagnoses Orde r Schedule INR Reflex, POCT, Blood Point of Care Testing-Docked Device Routine Anticoagulant Therapy [Z79.01] Mutation Factor V Leiden Heterozygous (HCC) Monitoring For Therapeutic Drug Therapy [Z51.81] Thrombosis Deep Vein Personal History Expected: 11/22/2023, Expires: 01/14/2025 documented as of this encounter Visit Diagnoses Diagnosis Anticoagulant Therapy [Z79.01]- Primary Mutation Factor V Leiden Heterozygous (HCC) Monitoring For Therapeutic Drug Therapy [Z51.81] Thrombosis Deep Vein Personal History documented in this encounter Additional Health Concerns Assessment Noted Time PHQ-9 Depression Total Score: 1 06/12/19 24 4:14 PM SOLICITOR PATENT documented as of this encounter Care Teams Bilingual Office Assistant Relationship Specialty Start Date End Date Stefan Salomon M.D. [address] [place] [phone] PCP - General Family Medicine 07/09/22 Anticoagulation Team 07/09/22 documented as of this encounter
--- OUTSIDE RECORDS SUMMARY | 2023-11-12 08:12 | XMS_ITS | Encounter Summary ---
Author Organization [facility] Address [address] [place] [id number] Care Team Providers Care Equipment Man Name Role Phone Stefan Salomon M.D. Primary Care Provider [phone] Reason for Visit * Outpatient (Routine) - Closed Specialty Diagnoses / Procedures Referred By Piero self Referred To Contact Dermatology Diagnoses Pruritus Crystal Quintero M.D. [address] [place] [phone] [facility] Referral ID Status Reason Start Date Expiration Date Visits Re quested Visits Authorized [id number] Closed 07/25/2023 01/23/2025 1 1 Encounter Details Date Type Department Care Team (Late st Contact Info) Description 10/23/2023 1:20 PM CDT Office Visit Department of Dermatology in [place], [place] [address] [place] [phone] Indira Gold M.D. [address] [place] [phone] Keratosis Seborrheic Inflamed [L82.0] (Primary Dx); Pruritus; Keratosis Actinic; Dermatitis Social History Tobacco Use Types Packs/Day Years [...] How often do you attend rastafari or caodaism serv ices? 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 - 10/23/2023 1:20 PM CDT Dermatology Note - Established Patient Correspondence to: Dr. Gold The patient has been seen and examined with Eileen Nash M.D.. SUBJECTIVE CHIEF COMPLAINT Follow up stasis dermatitis HISTORY OF PRESENT ILLNESS Wesley Bautista is a 72 y.o. male, who presents to [facility] on 10/23/23 for the above chief complaint. He was last seen by [facility] on 07/25/2023 at which time he had a full-body skin exam. He was noted to have chronic stasis dermatitis of the bilateral lower legs with hyperkeratotic scale of the right lower foot. He was recommended to start Amlactin daily for the hyperkeratotic scale and clobetasol for atrophy launch of the right lateral ankle. He was instructed to apply the clobetasol twice a day for up to 3 weeks and then take a one-week break in addition to using the Amlactin daily. He states since this visit has a significant improvement in this hyperkeratotic scale. He does note that he has been using the clobetasol daily in addition to the Amlactin. Additionally, he has a few lesions of concern he would like to have evaluated today. The first is a wartyspot in his left upper chest in addition to 2 pruritic spots on his right lower back. He otherwise denies any new, growing, bleeding or otherwise changing lesions. OBJECTIVE PHYSICAL EXAMINATION A skin exam was performed including: Focused exam of the bilateral lower legs, trunk, face and scalp All above skin examination performed are within normal limits with the following pertinent positiveskin findings: -on the vertex scalp with hyperkeratotic red papule consistent with an actinic keratosis -on the right lower back and left upper chest with inflamed, erythematous partially excoriated stuck on papule -bilateral lower legs with diffuse hyperpigmentation consistent with chronic stasis dermatitis and hypopigmented scars, no photographs from previous exam for comparison -chronic wound on the left medial ankle being managed by wound care ASSESSMENT / PLAN # Stasis dermatitis, bilateral lower legs: Patient returns today for repeat evaluation of stasis dermatitis of the bilateral lower legs with overlying hyperkeratosis. He has been treating the hyperkeratoses and stasis dermatitis with the clobetasol cream daily in addition Amlactin twice daily. Today on exam, significant scale is not appreciated and per patient is improved though no prior photographs for comparison. We therefore recommend he discontinue the daily use of clobetasol and recommend continued use of Amlactin daily. We also recommend he continue with the current regimen of compression. # Actinic keratoses times 1 Given the precancerous nature of this lesion(s), treatment is medically indicated. After discussionof the risks, benefits and alternatives to treatment with cryotherapy, informed consent was obtained. We treated a total of 1 lesion(s) with two 20-second freeze-thaw cycles of liquid nitrogen cryotherapy. The patient tolerated the procedure well. Aftercare instructions were provided in written andverbal form to the patient. Should any of these lesions recur, the patient should return for biopsyor further evaluation. Discussed the risks, benefits, alternatives, and the necessity of other members of the healthcare team participating in the procedure. All questions answered and consent given. # Inflamed seborrheic keratoses The benign nature of this lesion(s) was discussed with the patient. Given the inflamed nature of this lesion(s), its treatment is medically indicated. We treated a total of 3 lesion(s) with one 20-second freeze-thaw cycle of liquid nitrogen cryotherapy. The patient tolerated the procedure well. Aftercare instructions were provided in written and verbal form to the patient. Should any of these lesions recur, the patient should return for further evaluation. Diagnoses, natural course, treatments, and risks were discussed with the patient. The patient is aware to contact us with any concerns. Follow up as needed. Associated attestation - Eileen Nash M.D. - 11/05/2023 5:11 PM CDT I saw and evaluated the patient, participating in the dsouza elements of the service. I discussed the findings, assessment and plan with the resident/fellow and agree with resident/fellow???s findings and plan as documented in the resident/fellow's note. I was immediately available for the entirety ofthe procedure(s) and present for the dsouza and critical portions. documented in this encounter Plan of Treatment Upcoming Encounters Date Type Department Care Team (Latest Contact Info) Description 11/22/2023 8:50 AM CDT Appointment Department of Laboratory Medicine in [address] [phone] Stefan Salomon M.D. [address] [place] [phone] 11/22/2023 9:30 AM CDT Anticoagulation Visit Department of Anticoagulation in [place] [address] [place] [address] Stefan Salomon M.D. [address] [place] [phone] documented as of this encounter Visit Diagnoses Diagnosis Keratosis Seborrheic Inflamed [L82.0]- Primary Pruritus Keratosis Actinic Dermatitis documented in this encounter Additional Health Concerns Assessment Noted Time PHQ-9 Depression Total Score: 1 06/12/19 24 4:14 PM LABORATORY ANIMAL CARETAKER documented as of this encounter Care Teams Equipment Man Relationship Specialty Start Date End Date Stefan Salomon M.D. [address] [place] [phone] PCP - General Family Medicine 07/09/22 Anticoagulation Team 07/09/22 documented as of this encounter
--- OUTSIDE RECORDS SUMMARY | 2023-11-12 08:12 | XMS_ITS | Encounter Summary ---
Author Organization [facility] Address [address] [place] [address] Care Team Providers Care Mortar Carrier Name Role Phone Stefan Salomon M.D. Primary Care Provider [phone] Reason for Visit * Reason Comments Med Refill Encounter Details Date Type Department Care Team (Late st Contact Info) Description 11/05/2023 Refill Department of Family Medicine, [facility], in [address] [phone] Stefan Salomon M.D. [address] [place] [phone] Med Refill Social History Tobacco Use [...] How often do you attend advent or mandaen serv ices? 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 - 11/07/2023 10:28 AM CDT Controlled substance renewal for Tramadol 50 mg: No nursing concerns Renewal is pended per the controlled substance prescribing plan located in synopsis Date last renewed (start date): 10/10/23 Last provider visit: 06/12/23 Last urine drug screen: 02/21/23 ; Next due: 02/22/24 Screenings due: PEG nursing to complete with wrap up Next provider visit due: 12/11/[address] needs scheduling Chronic Opioid therapy agreement last reviewed/signed 06/12/2023 This prescription may be filled on 11/09/23, and next renewal may be on or after 12/09/23 * Telephone Encounter - Claritza Burns - 11/05/2023 7:47 AM CDT Images from the original note were not included. Nurse review: Med Refill Team is unable to forward request to provider. Controlled Substance, CSA Primary Provider: Stefan Salomon M.D. documented in this encounter Plan of Treatment Upcoming Encounters Date Type Department Care Team (Latest Contact Info) Description 11/22/2023 8:50 AM CDT Appointment Department of Laboratory Medicine in [address] [phone] Stefan Salomon M.D. [address] [place] [phone] 11/22/2023 9:30 AM CDT Anticoagulation Visit Department of Anticoagulation in [place], [place] [address] [place] [address] Stefan Salomon M.D. [address] [place] [phone] documented as of this encounter Visit Diagnoses Diagnosis Chronic Pain Syndrome Degeneration Disc Cervical Polyarthralgia documented in this encounter Additional Health Concerns Assessment Noted Time PHQ-9 Depression Total Score: 1 06/12/19 24 4:14 PM BALL ASSEMBLER documented as of this encounter Care Teams Mortar Carrier Relationship Specialty Start Date End Date Stefan Salomon M.D. [address] [place] [phone] PCP - General Family Medicine 07/09/22 Anticoagulation Team 07/09/22 documented as of this encounter
--- OUTSIDE RECORDS SUMMARY | 2023-11-12 08:12 | XMS_ITS | Encounter Summary ---
Author Organization [facility] Address [address] [place] [address] Care Team Providers Care Manager Of Planning Name Role Phone Stefan Salomon M.D. Primary Care Provider [phone] Encounter Details Date Type Department Care Team (Latest Contact Info) Description 10/11/2023 7:16 AM CDT - 10/11/2023 11:59 PM CDT Hospital Encounter Department of Laboratory Medicine in [address] [phone] Stefan Salomon M.D. [address] [place] [phone] Anticoagulant Therapy; Mutation Factor V Leiden Heterozygous [...] How often do you attend lutheran or evangelical serv ices? 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 240 g 3 07/25/2023 warfarin (JANTOVEN) 5 mg tabletIndications:A nticoagulant Therapy,Mutation Factor V Leiden Heterozygous (HCC),Monitoring For Therapeutic Drug Therapy,Thrombosis Deep Vein Personal History Please take as directed by your Anticoagulation Clinic. 118 tablet 3 09/24/2023 traMADoL (ULTRAM) 50 mg tabletIndications:C hronic Pain/Nonacute Pain Take 1-2 tablets (50-100 mg total) by mouth every 6 (six) hours as needed for pain Indications: Chronic Pain/Nonacute Pain. for pain 240 tablet 10/10/2023 11/07/2023 documented as of this encounter Plan of Treatment Upcoming Encounters Date Type Department Care Team (Latest Contact Info) Description 11/22/2023 8:50 AM CDT Appointment Department of Laboratory Medicine in [address] [phone] Stefan Salomon M.D. [address] [place] [phone] 11/22/2023 9:30 AM CDT Anticoagulation Visit Department of Anticoagulation in [place], [place] [address] [place] [phone] Stefan Salomon M.D. [address] [place] [phone] documented as of this encounter Procedures Procedure Name Priority Date/Time Associated Diagnosis Comments INR REFLEX, POCT, B Routine 10/11/2023 7:25 AM CDT Anticoagulant Therapy Mutation Factor V Leiden Heterozygous (HCC) Monitoring For Therapeutic Drug Therapy Thrombosis Deep Vein Personal History documented in this encounter Results * INR Reflex, POCT, Blood (10/11/2023 7:25 AM CDT) INR Reflex, POCT, B 2.5 10/11/2023 7:25 AM CDT CN[facility] Comment: ----ADDITIONAL INFORMATION---- Standard intensity warfarin therapeutic range: 2.0 to 3.0 ?? High intensity warfarin therapeutic range: 2.5 to 3.5 Blood (Blood, Capillary) 10/11/2023 7:25 AM CDT 10/11/2023 7:25 AM CDT Stefan Salomon M.D. LAB POCT ORDERABLES - DEVICE [facility] [address] [place] [phone], [place] CNFL [facility] in [address] [address] documented in this encounter Visit Diagnoses Diagnosis Anticoagulant Therapy Mutation Factor V Leiden Heterozygous (HCC) Monitoring For Therapeutic Drug Therapy Thrombosis Deep Vein Personal History documented in this encounter Additional Health Concerns Assessment Noted Time PHQ-9 Depression Total Score: 1 06/12/19 24 4:14 PM MANAGER OF CONSTRUCTION documented as of this encounter Care Teams Manager Of Planning Relationship Specialty Start Date End Date Stefan Salomon M.D. [address] [place] [phone] PCP - General Family Medicine 07/09/22 Anticoagulation Team 07/09/22 documented as of this encounter
--- OUTSIDE RECORDS SUMMARY | 2023-11-12 08:12 | XMS_ITS | Encounter Summary ---
Author Organization [facility] Address [address] [place] [address] Care Team Providers Care Digital Campaign Specialist Name Role Phone Stefan Salomon M.D. Primary Care Provider [phone] Encounter Details Date Type Department Care Team (Latest Contact Info) Description 09/13/2023 7:10 AM CDT - 09/13/2023 11:59 PM CDT Hospital Encounter Department of Laboratory Medicine in [address] [phone] Stefan Salomon M.D. [address] [place] [phone] Anticoagulant Therapy [Z79.01]; Mutation Factor V Leiden [...] How often do you attend buddhist or alevism serv ices? Never 07/09/2022 Do [...] Answer Date Recorded PHQ-2 Score 0 06/12/2023 [facility] [place] [facility] - Occupational Stress [...] file Gender Identity Male 07/02/2017 9:12 AM BAG MENDER Sexual Orientation Straight 07/02/2017 9: 12 AM BAG MENDER documented as of this encounter Medications at [...] CDT Appointment Department of Laboratory Medicine in [address] [place] [phone] Stefan Salomon M.D. [address] [place] [phone] 11/22/2023 9:30 AM CDT Anticoagulation Visit Department of Anticoagulation in [place], [place] [address] [place] [address] Stefan Salomon M.D. [address] [place] [phone] documented as of this encounter Procedures Procedure Name Priority Date/Time Associated Diagnosis Comments INR REFLEX, POCT, B Routine 09/13/2023 7 :26 AM CDT documented in this encounter Results * INR Reflex, POCT, Blood (09/13/2023 7:26 AM CDT) INR Reflex, POCT, B 3.7 09/13/2023 7:26 AM CDT [facility] Comment: ----ADDITIONAL INFORMATION---- Standard intensity warfarin therapeutic range: 2.0 to 3.0 ?? High intensity warfarin therapeutic range: 2.5 to 3.5 Blood 09/13/2023 7:26 AM CDT 09/13/2023 9:29 AM CDT [facility] LAB POCT ORDERABLES - DEVICE [facility] [address] [place] [phone], [facility] CNFL [facility] in [address] [address] documented in this encounter Visit Diagnoses Diagnosis Anticoagulant Therapy [Z79.01] Mutation Factor V Leiden Heterozygous (HCC) Monitoring For Therapeutic Drug Therapy [Z51.81] Thrombosis Deep Vein Personal History documented in this encounter Additional Health Concerns Assessment Noted Time PHQ-9 Depression Total Score: 1 06/12/19 24 4:14 PM BAG MENDER documented as of this encounter Care Teams Digital Campaign Specialist Relationship Specialty Start Date End Date Stefan Salomon M.D. [id number] [phone] PCP - General Family Medicine 07/09/22 Anticoagulation Team 07/09/22 documented as of this encounter
--- OUTSIDE RECORDS SUMMARY | 2023-11-12 08:12 | XMS_ITS ---
Author Organization [facility] Address [address] [place] [address] Care Team Providers Care Tight Barrel Inspector Name Role Phone Unavailable Unavailable Unavailable Surgery Details Not on file Complications Check Surgery Details section. Procedure Estimated Blood Loss Check Surgery Details section. Procedure Findings Check Surgery Details section. Procedure Specimens Taken Check Surgery Details section.
--- OUTSIDE RECORDS SUMMARY | 2023-11-12 08:13 | XMS_ITS | Encounter Summary ---
Author Organization [facility] Address [address] [place] [address] Care Team Providers Care Broomcorn Press Feeder Name Role Phone Stefan Salomon M.D. Primary Care Provider [phone] Reason for Visit * Reason Comments Med Refill Encounter Details Date Type Department Care Team (Late st Contact Info) Description 08/06/2023 Refill Department of Family Medicine, [facility] [place], in [address] [phone] Stefan Salomon M.D. [address] [place] [phone] Med Refill Social History Tobacco Use [...] week 07/09/2022 How often do you attend amish or congregation serv ices? 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 - 08/07/2023 12:22 PM YARD MOTOR OPERATOR Controlled substance renewal for Tramadol 50 [...] renewal may be on or after 09/06/23 MOTOR OPERATOR * Telephone Encounter - Brenda Fitzgerald - 08/06/2023 10:20 AM CST Images from the original note were not included. Nurse review: Med Refill Team is unable to forward request to provider; Controlled Substance, CSA Primary Provider: Stefan Salomon M.D. MOTOR OPERATOR documented in this encounter Plan of Treatment Upcoming Encounters Date Type Department Care Team (Latest Contact Info) Description 11/22/2023 8:50 AM CDT Appointment Department of Laboratory Medicine in [address] [phone] Stefan Salomon M.D. [address] [place] [phone] 11/22/2023 9:30 AM CDT Anticoagulation Visit Department of Anticoagulation in [place], [place] [address] [place] [phone] Stefan Salomon M.D. [address] [place] [phone] documented as of this encounter Visit Diagnoses Diagnosis Chronic Pain Syndrome Degeneration Disc Cervical Polyarthralgia documented in this encounter Additional Health Concerns Assessment Noted Time PHQ-9 Depression Total Score: 1 06/12/19 24 4:14 PM YARD MOTOR OPERATOR documented as of this encounter Care Teams Broomcorn Press Feeder Relationship Specialty Start Date End Date Stefan Salomon M.D. [address] [place] [phone] PCP - General Family Medicine 07/09/22 Anticoagulation Team 07/09/22 documented as of this encounter
--- OUTSIDE RECORDS SUMMARY | 2023-11-12 08:13 | XMS_ITS | Encounter Summary ---
Author Organization [facility] Address [address] [place] [address] Care Team Providers Care Plumber [place] Name Role Phone Stefan Salomon M.D. Primary Care Provider [phone] Encounter Details Date Type Department Care Team (Latest Contact Info) Description 08/23/2023 7:35 AM CDT - 08/23/2023 11:59 PM CDT Hospital Encounter Department of Laboratory Medicine in [address] [phone] Stefan Salomon M.D. [address] [place] [phone] Anticoagulant Therapy [Z79.01]; Mutation Factor V Leiden [...] How often do you attend pentecostalism or mandaeism serv ices? Never 07/09/2022 Do [...] Answer Date Recorded PHQ-2 Score 0 06/12/2023 [facility] - Occupational Stress Questionnaire [...] file Gender Identity Male 07/02/2017 9:12 AM ORTHODONTIC BAND MAKER Sexual Orientation Straight 07/02/2017 9: 12 AM ORTHODONTIC BAND MAKER documented as of this encounter Medications [...] CDT Appointment Department of Laboratory Medicine in [place] [phone] Stefan Salomon M.D. [address] [place] [phone] 11/22/2023 9:30 AM CDT Anticoagulation Visit Department of Anticoagulation in [place], [place] [address] [place] [phone] Stefan Salomon M.D. [address] [place] [phone] documented as of this encounter Procedures [...] POCT, B 3.2 08/23/2023 7:45 AM CDT [facility] Comment: ----ADDITIONAL INFORMATION---- Standard intensity warfarin therapeutic range: 2.0 to 3.0 ?? High intensity warfarin therapeutic range: 2.5 to 3.5 Blood (Blood, Capillary) 08/23/2023 7:45 AM CDT 08/23/2023 7:45 AM CDT Stefan Salomon M.D. LAB POCT ORDERABLES - DEVICE [facility] [address] [place] [address], [place] CNFL [facility] in [address] [address] documented in this encounter Visit Diagnoses Diagnosis Anticoagulant Therapy [Z79.01] Mutation Factor V Leiden Heterozygous (HCC) Monitoring For Therapeutic Drug Therapy [Z51.81] Thrombosis Deep Vein Personal History documented in this encounter Additional Health Concerns Assessment Noted Time PHQ-9 Depression Total Score: 1 06/12/19 24 4:14 PM ORTHODONTIC BAND MAKER documented as of this encounter Care Teams Plumber [place] Relationship Specialty Start Date End Date Stefan Salomon M.D. [address] [phone] PCP - General Family Medicine 07/09/22 Anticoagulation Team 07/09/22 documented as of this encounter
== END 2023-11-12 08:09 | disposition home or self-care (01) ==
LOC: WOUND 08:09
PROVIDERS: PCP Student in an Organized Health Care Education/Training Program; Visit Provider Nurse Practitioner Family
DX: I87.312 Chronic venous hypertension (idiopathic) with ulcer of left lower extremity (principal); I87.2 Venous insufficiency (chronic) (peripheral); L97.322 Non-pressure chronic ulcer of left ankle with fat layer exposed; I89.0 Lymphedema, not elsewhere classified
CPT/HCPCS: 11042; 87070; 87186

== ENCOUNTER 2023-11-26 07:53 | Outpatient (CLI) | payer MEDICARE, BC, SELFPAY | END 2023-11-26 07:54 | disposition home or self-care (01) | LOC: WOUND 07:53 | PROVIDERS: PCP Student in an Organized Health Care Education/Training Program; Visit Provider Nurse Practitioner Family | DX: I87.312 Chronic venous hypertension (idiopathic) with ulcer of left lower extremity (principal); I87.2 Venous insufficiency (chronic) (peripheral); L97.322 Non-pressure chronic ulcer of left ankle with fat layer exposed; I89.0 Lymphedema, not elsewhere classified | CPT/HCPCS: 97597 ==

== ENCOUNTER 2023-12-10 07:51 | Outpatient (CLI) | payer MEDICARE, BC, SELFPAY ==
--- OUTSIDE RECORDS SUMMARY | 2023-12-10 07:53 | XMS_ITS | Clinical Summary ---
Author Organization [facility] Address [place], [place] [address] Care Team Providers Care Garage Laborer Name Role Phone Yue Alonso Thomasmedhat [facility] Primary Care Provider Allergies Active [...] extremity 07/13/2016 Overview: Overview: Saw Neurologist at [facility] on 09/16/2009. MRI lumbar spine done [...] he needs it. Osteoarthritis 11/18/2011 Debility 04/11/2009 Immunizations Name Administration Dates Next Due Tdap [...] Comments Blood Pressure 117/67 05/13/2021 2:55 PM ASSURANCE ASSOCIATE Pulse 103 05/13/2021 2:55 PM ASSURANCE ASSOCIATE Temperature 36.9 ??C (98.4 ??F) 05/13/2021 2:55 PM CS T Respiratory Rate 18 05/13/2021 2:55 PM ASSURANCE ASSOCIATE Oxygen Saturation 99% 05/13/2021 2:55 PM ASSURANCE ASSOCIATE Inhaled Oxygen Concentration - - Weight 97.8 kg (215 lb 9.8 oz) 07/04/2022 11:35 AM ASSURANCE ASSOCIATE Height 175.7 cm (5' 9.17) 07/04/2022 11:[address] Body Mass Index 31.68 07/04/2022 11:35 AM ASSURANCE ASSOCIATE Plan of Treatment Health Maintenance Due Date [...] 8:51 AM 12/27/2014 12:46 PM Care Teams Garage Laborer Relationship Specialty Start Date End Date Yue Alonso MBBS [address] [place] [address] [place] [address] PCP - General Family Practice 06/26/22
--- OUTSIDE RECORDS SUMMARY | 2023-12-10 07:54 | XMS_ITS | Encounter Summary ---
Author Organization [facility] Address [address] [place] [address] Care Team Providers Care Park Guard Name Role Phone Stefan Salomon M.D. Primary Care Provider [phone] Reason for Visit * Reason Comments Med Refill Encounter Details Date Type Department Care Team (Late st Contact Info) Description 12/02/2023 Refill Department of Family Medicine, [facility], in [address] [phone] Stefan Salomon M.D. [address] [place] [phone] Med Refill Social History Tobacco Use [...] How often do you attend advent or restoration serv ices? Never 07/09/2022 Do [...] file Gender Identity Male 07/02/2017 9:12 AM FRAMING CONSULTANT Sexual Orientation Straight 07/02/2017 9: 12 AM FRAMING CONSULTANT documented as of this encounter Miscellaneous Notes * Telephone Encounter - Destiny Kapoor, LCotyP.N. - 12/04/2023 11:23 AM CDT Controlled substance renewal for Tramadol 50 mg: No nursing concerns Renewal is pended per the controlled substance prescribing plan located in controlled substance synopsis Date last renewed (start date): 11/09/2023 Last provider visit: 06/12/2023 Urine Drug Screen last resulted on: 02/23/2023; Next due: 02/22/2024 Screenings due: PEG (responder to complete) Next provider visit due: scheduled 12/06/2023 Controlled substance agreement last reviewed/signed 06/12/2023 This prescription may be filled on 12/09/2023, and next renewal may be on or after 01/08/2024. * Telephone Encounter - Brenda Fitzgerald - 12/02/2023 11:27 AM CDT Images from the original note were not included. Nurse review: Med Refill Team is unable to forward request to provider. Controlled Substance, CSA Primary Provider: Stefan Salomon M.D. documented in this encounter Plan of Treatment Upcoming Encounters Date Type Department Care Team (Latest Contact Info) Description 01/03/2024 8:50 AM CDT Appointment Department of Laboratory Medicine in [address] [phone] Stefan Salomon M.D. [address] [place] [phone] 01/03/2024 9:30 AM CDT Anticoagulation Visit Department of Anticoagulation in [place], [place] [address] [place] [address] Stefan Salomon M.D. [address] [place] [phone] documented as of this encounter Visit Diagnoses Diagnosis Chronic Pain Syndrome Degeneration Disc Cervical Polyarthralgia documented in this encounter Additional Health Concerns Assessment Noted Time PHQ-9 Depression Total Score: 1 06/12/19 24 4:14 PM FRAMING CONSULTANT documented as of this encounter Care Teams Park Guard Relationship Specialty Start Date End Date Stefan Salomon M.D. [address] [place] [phone] PCP - General Family Medicine 07/09/22 Anticoagulation Team 07/09/22 documented as of this encounter
--- OUTSIDE RECORDS SUMMARY | 2023-12-10 07:54 | XMS_ITS | Referral Summary ---
Author Organization [facility] Address [address] [place] [address] Care Team Providers Care Captain'S Assistant Name Role Phone Stefan Salomon M.D. Primary Care Provider [phone] Source Comments Patient records contain information from all sites at [facility]. For routine questions regarding patient records, call [phone] during business hours, M-F 8:00 AM - 5:00 PM Central Time. Record requests for emergency care only can be directed to [phone] at any time.[facility] Encounters Date Type Department Care Team Description 12/02/2023 Refill Department of Family Medicine, [facility], in [address] [phone] Stefan Salomon M.D. Med Refill 11/26/2023 8:00 AM CDT Anticoagulation Visit Department of Anticoagulation in [place], [place] [address] [place] [phone] Stefan Salomon M.D. Anticoagulant Therapy [Z79.01] (Primary Dx); Mutation Factor V Leiden Heterozygous (HCC); Monitoring For Therapeutic Drug Therapy [Z51.81]; Thrombosis Deep Vein Personal History 11/22/2023 7:56 AM CDT - 11/22/2023 11:59 PM CDT Hospital Encounter Department of Laboratory Medicine in [address] [phone] Stefan Salomon M.D. Anticoagulant Therapy [Z79.01]; Mutation Factor V Leiden Heterozygous (HCC); Monitoring For Therapeutic Drug Therapy [Z51.81]; Thrombosis Deep Vein Personal History Discharge Disposition: Home or Self Care 11/05/2023 Refill Department of Family Medicine, [facility], in [address] [phone] Stefan Salomon M.D. Med Refill 10/23/2023 1:20 PM CDT Office Visit Department of Dermatology in [place], [place] [address] [place] [phone] Indira Gold M.D. Keratosis Seborrheic Inflamed [L82.0] (Primary Dx); Pruritus; Keratosis Actinic; Dermatitis 10/15/2023 3:30 PM CDT Anticoagulation Visit Department of Anticoagulation in [place], [place] [address] [place] [address] Stefan Salomon M.D. Anticoagulant Therapy [Z79.01] (Primary Dx); Mutation Factor V Leiden Heterozygous (HCC); Monitoring For Therapeutic Drug Therapy [Z51.81]; Thrombosis Deep Vein Personal History 10/11/2023 7:16 AM CDT - 10/11/2023 11:59 PM CDT Hospital Encounter Department of Laboratory Medicine in [address] [phone] Stefan Salomon M.D. Anticoagulant Therapy; Mutation Factor V Leiden Heterozygous (HCC); Monitoring For Therapeutic Drug Therapy; Thrombosis Deep Vein Personal History Discharge Disposition: Home or Self Care 10/10/2023 Refill Department of Family Medicine, [facility], in [address] [phone] Stefan Salomon M.D. Med Refill 09/24/2023 Refill Department of Family Medicine, [facility], in [address] [phone] Stefan Salomon M.D. Med Refill 09/20/2023 7:10 AM CDT - 09/20/2023 11:59 PM CDT Hospital Encounter Department of Laboratory Medicine in [address] [phone] Stefan Salomon M.D. Anticoagulant Therapy; Mutation Factor V Leiden Heterozygous (HCC); Monitoring For Therapeutic Drug Therapy; Thrombosis Deep Vein Personal History Discharge Disposition: Home or Self Care 09/20/2023 11:00 AM CDT Anticoagulation Visit Department of Anticoagulation in [address] [phone] Stefan Salomon M.D. Thrombosis Deep Vein Personal History (Primary Dx); Anticoagulant Therapy; Mutation Factor V Leiden Heterozygous (HCC); Monitoring For Therapeutic Drug Therapy; Hypertension Essential Primary 09/13/2023 7:10 AM CDT - 09/13/2023 11:59 PM CDT Hospital Encounter Department of Laboratory Medicine in [address] [phone] Stefan Salomon M.D. Anticoagulant Therapy [Z79.01]; Mutation Factor V Leiden Heterozygous (HCC); Monitoring For Therapeutic Drug Therapy [Z51.81]; Thrombosis Deep Vein Personal History Discharge Disposition: Home or Self Care 09/13/2023 9:30 AM CDT Anticoagulation Visit Department of Anticoagulation in [address] [phone] Stefan Salomon M.D. Anticoagulant Therapy; Mutation Factor V Leiden Heterozygous (HCC); Monitoring For Therapeutic Drug Therapy; Thrombosis Deep Vein Personal History from Last 3 Months Allergies Active Allergy Reactions Criticality Noted Date Comments Atorvastatin Myalgia 02/08/2017 Leg Pain/Cramps Unijiov-Fgn-Xcz Reductase Inhibitors Other (see comments) 09/10/2022 Medications [...] Clinic. 118 tablet 3 4 Active traMADoL (Ultram) 50 mg tabletIndications :Chronic Pain/Nonacute Pain Take [...] Pain/Nonacute Pain. for pain 240 tablet 4 12/04/19 24 Discontinu ed(Reorder ) Active Problems Problem [...] Limb Generalized 11/18/2011 Overview: Saw Neurologist at [facility] [...] How often do you attend synagogue or latter day serv ices? Never 07/09/2022 Do you belong [...] Answer Date Recorded PHQ-2 Score 0 06/12/2023 [facility] [...] file Gender Identity Male 07/02/2017 9:12 AM LOADING DOCK HELPER Sexual Orientation Straight 07/02/2017 9: 12 AM LOADING DOCK HELPER Last Filed Vital Signs Vital Sign Reading Time Taken Comments Blood Pressure 148/82 06/12/2023 4:23 PM LOADING DOCK HELPER Pulse 63 06/12/2023 4:23 PM LOADING DOCK HELPER Temperature 36.6 ??C (97.9 ??F) 06/12/2023 4:23 PM CS T Respiratory Rate 18 06/12/2023 4:23 PM LOADING DOCK HELPER Oxygen Saturation 94% 06/12/2023 4:23 PM LOADING DOCK HELPER Inhaled Oxygen Concentration - - Weight 95.6 kg (210 lb 12.2 oz) 06/12/2023 4:23 PM LOADING DOCK HELPER Height 176.5 cm (5' 9.49) 08/01/2022 9:59 AM CS T Body Mass Index 30.69 08/01/2022 9:59 AM LOADING DOCK HELPER Plan of Treatment Upcoming Encounters Date Type Department Care Team (Latest Contact Info) Description 01/03/2024 8:50 AM CDT Appointment Department of Laboratory Medicine in [address] [phone] Stefan Salomon M.D. [address] [place] [phone] 01/03/2024 9:30 AM CDT Anticoagulation Visit Department of Anticoagulation in [place], [place] [address] [place] [address] Stefan Salomon M.D. [address] [place] [phone] Medical Devices Implanted Type Area Athlete Manager Device Identifier Shelf Expiration Date Model / Serial / Lot Mineralized Cancellous Bone 2.0 - Anne [id number] Implanted:Qty: 1 on 08/10/2015 Bone or Tissue Tooth [facility] Description:Device Manufactu rer [facility]. Body Location - Other. tooth-13. Device Status Text - [id number]. Hardware E.G. Pins/Screws/Rk s Hardware e.g. pins/screws /rods Mouth Abutment Nobrpl Rp 4.3x5 - Anne [id number] Implanted:Qty: 1 on 07/03/2007 Hardware e.g. pins/screws /rods Tooth [employer] Description:Device Manufactu rer - [employer]. Body Location - Tooth 5. Device Status Text - [id number]. Screw Rst Curly Taper Rp 4.3x13.0 - Anne [id number] Implanted:Qty: 1 on 07/03/2007 Hardware e.g. pins/screws /rods Tooth [employer] Description:Device Manufactu rer - [employer]. Body Location - Tooth 5. Device Status Text - [id number]. Screw Nobrpl Curly Tap Loss Prevention Guard 3.5x11.5 - Anne [id number] Implanted:Qty: 1 on 03/03/2012 Hardware e.g. pins/screws /rods Tooth [employer] Description:Device Manufactu rer - [employer]. Body Location - Tooth 29. Device Status Text - [id number]. Abutment Nobrpl Loss Prevention Guard 3.5x5 - Anne [id number] Implanted:Qty: 1 on 03/03/2012 Hardware e.g. pins/screws /rods Tooth [employer] Description:Device Manufactu rer - [employer]. Body Location - Tooth 29. Device Status Text - [id number]. Abutment Nobrpl Loss Prevention Guard 3.5x3 - Anne [id number] Implanted:Qty: 1 on 08/23/2014 Hardware e.g. pins/screws /rods Tooth [employer] Description:Device Manufactu rer - [employer]. Body Location - Other. tooth- 28. Device Status Text - [id number]. Abutment Nobrpl Loss Prevention Guard 3.5x3 - Anne [id number] Implanted:Qty: 1 on 08/23/2014 Hardware e.g. pins/screws /rods Tooth [employer] Description:Device Manufactu rer - [employer]. Body Location - Other. tooth- 28. Device Status Text - [id number]. Screw Nobrpl Curly Taper Loss Prevention Guard 3.5x13.0 - Anne [id number] Implanted:Qty: 1 on 08/23/2014 Hardware e.g. pins/screws /rods Tooth [employer] Description:Device Manufactu rer - [employer]. Body Location - Other. tooth- 28. Device Status Text - [id number]. Screw Nobrpl Curly Taper Rp 4.3x10.0 - Anne [id number] Implanted:Qty: 1 on 08/10/2015 Hardware e.g. pins/screws /rods Tooth [employer] Description:Device Manufactu rer - [employer]. Body Location - Other. tooth- 20. Device Status Text - [id number]. Brane Fix Rst Tiunite Rp 4.3 X 13.0 - Anne [id number] Implanted:Qty: 1 on 08/10/2015 Hardware e.g. pins/screws /rods Tooth [employer] Description:Device Manufactu rer - [employer]. Body Location - Other. tooth- 21. Device Status Text - [id number]. Brane Fix Rst Tiunite Rp 4.3 X 13.0 - Anne [id number] Implanted:Qty: 1 on 08/10/2015 Hardware e.g. pins/screws /rods Tooth [employer] Description:Device Manufactu rer - [employer]. Body Location - Other. tooth- 13. Device Status Text - [id number]. Brane Fix Rst Tiunite Rp 4.3 X 13.0 - Anne [id number] Implanted:Qty: 1 on 08/10/2015 Hardware e.g. pins/screws /rods Tooth [employer] Description:Device Manufactu rer - [employer]. Body Location - Other. tooth- 11. Device Status Text - [id number]. Abutment Nobrpl Rp 4.3x3 - Anne [id number] Implanted:Qty: 1 on 02/08/2016 Hardware e.g. pins/screws /rods Tooth [employer] Description:Device Manufactu rer - [employer]. Body Location - Other. tooth- 20. Device Status Text - [id number]. Abutment Nobrpl Rp 5.3x3 - Anne [id number] Implanted:Qty: 1 on 02/08/2016 Hardware e.g. pins/screws /rods Tooth [employer] Description:Device Manufactu rer - [employer]. Body Location - Other. tooth- 13. Device Status Text - [id number]. Abutment Nobrpl Rp 4.3x3 - Anne [id number] Implanted:Qty: 1 on 02/08/2016 Hardware e.g. pins/screws /rods Tooth [employer] Description:Device Manufactu rer - [employer]. Body Location - Other. tooth- 21. Device Status Text - [id number]. Abutment Nobrpl Rp 4.3x3 - Anne [id number] Implanted:Qty: 1 on 02/08/2016 Hardware e.g. pins/screws /rods Tooth [employer] Description:Device Manufactu rer - [employer]. Body Location - Other. tooth- 11. Device Status Text - [id number]. Patch Dura-Guard 4x 4 - Anne [id number] Implanted:Qty: 1 on 08/19/1996 Mesh or Patch [employer] Description:Device Manufactu rer - [employer]. Device Status Text - [id number]. Allograft Bioxclude Chorion 1cm X 2.5cm - Anne [id number] Implanted:Qty: 1 on 01/15/2014 Mesh or Patch Tooth Unknown Description:Device Manufactu rer - Unknown. Body Location - tooth-28. Device Status Text - [id number]. Allograft Bioxclude Chorion 1cm X 2.5cm - Anne [id number] Implanted:Qty: 1 on 01/15/2014 Mesh or Patch Tooth Unknown Description:Device Manufactu rer - Unknown. Body Location - tooth-5. Device Status Text - [id number]. Allograft Bioxclude Chorion 1.5cm X 2cm - Anne [id number] Implanted:Qty: 1 on 08/10/2015 Mesh or Patch Other/Legacy - See Implant Description Unknown Description:Device Manufactu rer - Unknown. Body Location - Other. Left. Device Status Text - [id number]. Procedures Procedure Name Priority Date/Time Associated Diagnosis Comments INR REFLEX, POCT, B Routine 11/22/2023 8 :01 AM CDT Anticoagulant Therapy [Z79.01] Mutation Factor V Leiden Heterozygous (HCC) Monitoring For Therapeutic Drug Therapy [Z51.81] Thrombosis Deep Vein Personal History INR REFLEX, POCT, B Routine 10/11/2023 7 :25 AM CDT Anticoagulant Therapy Mutation Factor V Leiden Heterozygous (HCC) Monitoring For Therapeutic Drug Therapy Thrombosis Deep Vein Personal History INR REFLEX, POCT, B Routine 09/20/2023 7 :20 AM CDT INR REFLEX, POCT, B Routine 09/13/2023 7 :26 AM CDT LIPID PANEL, S Routine 04/19/2023 7:39 AM LOADING DOCK HELPER Hyperlipidemia BASIC METABOLIC PANEL, S/P Routine 04/19/2023 7:39 AM LOADING DOCK HELPER Hypertension Essential Primary HCV AB SCRN W/REFLEX TO HCV PCR, S Routine 06/15/2016 9:01 AM LOADING DOCK HELPER COLONOSCOPY Routine 12/27/2014 US AORTA Routine 11/09/2014 8:30 AM CDT from Last 3 Months or Most Recently Relevant to Health Maintenance Results * INR Reflex, POCT, Blood (11/22/2023 8:01 AM CDT) Only the most recent of4 resultswithin the time period is included. INR Reflex, POCT, B 2.3 11/22/2023 8:01 AM CDT CNFL Comment: ----ADDITIONAL INFORMATION---- Standard intensity warfarin therapeutic range: 2.0 to 3.0 ?? High intensity warfarin therapeutic range: 2.5 to 3.5 Blood (Blood, Capillary) 11/22/2023 8:01 AM CDT 11/22/2023 8:01 AM CDT Stefan Salomon M.D. LAB POCT ORDERABLES - DEVICE [facility] [address] [place] [id number], [facility] CNFL [facility] [place] [facility] in [address] [address] * Lipid Panel (04/19/2023 7:39 AM LOADING DOCK HELPER) Triglycerides 113 mg/dL 04/19/2023 11:48 AM LOADING DOCK HELPER CNFL Comment: ----REFERENCE VALUE---- Normal: <150 mg/dL Borderline High: 150-199 mg/dL High: 200-499 mg/dL Very High: > or =500 mg/dL Cholesterol, Total 144 mg/dL 2022 11:48 AM LOADING DOCK HELPER CNFL Comment: ----REFERENCE VALUE---- Desirable: < 200 mg/dL Borderline High: 200 - 239 mg/dL High: > or = 240 mg/dL Cholesterol, LDL, Calculated 76 mg/dL 04/19/2023 12:10 PM LOADING DOCK HELPER CNFL Comment: ----REFERENCE VALUE---- Desirable: <100 mg/dL Above Desirable: 100-129 mg/dL Borderline High: 130-159 mg/dL High: 160-189 mg/dL Very High: >=190 mg/dL ----ADDITIONAL INFORMATION---- LDL cholesterol calculated using the Sosa/NIH equation. Cholesterol, HDL 48 >=40 mg/dL 04/19/20 12:10 PM LOADING DOCK HELPER CNFL Cholesterol, Non-HDL, Calculated 96 mg/dL 04/19/2023 12:10 PM LOADING DOCK HELPER CNFL Comment: ----REFERENCE VALUE---- Desirable: <130 mg/dL Above Desirable: 130-159 mg/dL Borderline High: 160-189 mg/dL High: 190-219 mg/dL Very High: > or =220 mg/dL Fasting (8 HR or more) No 04/19/2023 7:40 AM LOADING DOCK HELPER CNFL Blood (Blood, Venous) 04/19/2023 7:39 AM LOADING DOCK HELPER 04/19/2023 7:40 AM LOADING DOCK HELPER Stefan Salomon M.D. LAB BLOOD ADD-ON [facility] [address] [place] [phone], [facility] CNFL [facility] [place] [facility] in [address] [address] * Basic Metabolic Panel (04/19/2023 7:39 AM LOADING DOCK HELPER) Potassium, P 4.1 3.6 - 5.2 mmol/L 04/19/2023 11:48 AM LOADING DOCK HELPER CNFL Sodium, P 138 135 - 145 mmol/L 04/19/2023 11:48 AM LOADING DOCK HELPER CNFL Chloride, P 102 98 - 107 mmol/L 04/19/2023 11:48 AM LOADING DOCK HELPER CNFL Bicarbonate, P 23 22 - 29 mmol/L 04/19/2023 11:48 AM LOADING DOCK HELPER CNFL Anion Gap, P 13 7 - 15 04/19/2023 11:48 AM LOADING DOCK HELPER CNFL BUN (Blood Urea Nitrogen), P 21 8 - 24 mg/dL 04/19/2023 11:48 AM LOADING DOCK HELPER CNFL Creatinine 0.87 0.74 - 1.35 mg/dL 04/19/2023 11:48 AM LOADING DOCK HELPER CNFL Estimated GFR (eGFR) >90 >=60 mL/min/BSA 04/19/2023 11:48 AM LOADING DOCK HELPER CNFL Comment: Estimated GFR calculated using the 2020 CKD_EPI creatinine equation. Calcium, Total, P 9.1 8.8 - 10.2 mg/dL 04/19/2023 11:48 AM LOADING DOCK HELPER CNFL Glucose, P 103 70 - 140 mg/dL 04/19/2023 11:48 AM LOADING DOCK HELPER CNFL Blood (Blood, Venous) 04/19/2023 7:39 AM LOADING DOCK HELPER 04/19/2023 7:40 AM LOADING DOCK HELPER Stefan Salomon M.D. LAB BLOOD ADD-ON [facility] [address] [place] [phone], [place] CNFL [facility] [place] [facility] in [address] [address] * HCV Ab w/Reflex to HCV PCR, S (medicare) (06/15/2016 9:01 AM LOADING DOCK HELPER) HXHCV Ab [facility] Reactive Negative POWERCHART Comment: Supplemental testing for HCV RNA is ordered to rule out active HCV infection. Bqaqzw-xd-kgfoay ratio is >=1.00 and <8.00. Test Performed by: [facility] [place] [address] Milk Condenser: Armando Chavez II, M.D., Ph.D. Blood 06/15/2016 9:01 AM LOADING DOCK HELPER Abraham Valle M.D. LAB MICROBIOLOGY - B [...] Recently Relevant to Health Maintenance Care Teams Captain'S Assistant Relationship Specialty Start Date End Date Stefan Salomon M.D. [address] [place] [phone] PCP - General Family Medicine 07/09/22 Anticoagulation Team 07/09/22
--- OUTSIDE RECORDS SUMMARY | 2023-12-10 07:54 | XMS_ITS ---
Author Organization [facility] Address [address] [place] [address] Care Team Providers Care Systems Software Developer Name Role Phone Unavailable Unavailable Unavailable Surgery Details Not on file Complications Check Surgery Details section. Procedure Estimated Blood Loss Check Surgery Details section. Procedure Findings Check Surgery Details section. Procedure Specimens Taken Check Surgery Details section.
--- OUTSIDE RECORDS SUMMARY | 2023-12-10 07:54 | XMS_ITS | Clinical Summary ---
Author Organization [facility] Address [address] [place] [address] Care Team Providers Care Licensed Funeral Director And Embalmer Name Role Phone Stefan Salomon M.D. Primary Care Provider [phone] Source Comments Patient records contain information from all sites at [facility]. For routine questions regarding patient records, call [phone] during business hours, M-F 8:00 AM - 5:00 PM Central Time. Record requests for emergency care only can be directed to [phone] at any time.[facility] Allergies Active Allergy Reactions Criticality Noted Date Comments Atorvastatin Myalgia 02/08/2017 Leg Pain/Cramps Vnjybct-Lbe-Ojq Reductase Inhibitors Other (see comments) 09/10/2022 Medications [...] Limb Generalized 11/18/2011 Overview: Saw Neurologist at [facility] on 09/16/2009. MRI lumbar spine done [...] Description 12/02/2023 Refill Department of Family Medicine, [facility], in [address] [phone] Stefan Salomon M.D. Med Refill 11/26/2023 8:00 AM CDT Anticoagulation Visit Department of Anticoagulation in [address] [phone] Stefan Salomon M.D. Anticoagulant Therapy [Z79.01] (Primary Dx); Mutation Factor V Leiden Heterozygous (HCC); Monitoring For Therapeutic Drug Therapy [Z51.81]; Thrombosis Deep Vein Personal History 11/22/2023 7:56 AM CDT - 11/22/2023 11:59 PM CDT Hospital Encounter Department of Laboratory Medicine in [address] [address] Stefan Salomon M.D. Anticoagulant Therapy [Z79.01]; Mutation Factor V Leiden Heterozygous (HCC); Monitoring For Therapeutic Drug Therapy [Z51.81]; Thrombosis Deep Vein Personal History Discharge Disposition: Home or Self Care 11/05/2023 Refill Department of Family Medicine, [facility], in [address] [phone] Stefan Salomon M.D. Med Refill 10/23/2023 1:20 PM CDT Office Visit Department of Dermatology in [place], [place] [address] [place] [phone] Indira Gold M.D. Keratosis Seborrheic Inflamed [L82.0] (Primary Dx); Pruritus; Keratosis Actinic; Dermatitis 10/15/2023 3:30 PM CDT Anticoagulation Visit Department of Anticoagulation in [place], [place] [address] [place] [phone] Stefan Salomon M.D. Anticoagulant Therapy [Z79.01] (Primary Dx); Mutation Factor V Leiden Heterozygous (HCC); Monitoring For Therapeutic Drug Therapy [Z51.81]; Thrombosis Deep Vein Personal History 10/11/2023 7:16 AM CDT - 10/11/2023 11:59 PM CDT Hospital Encounter Department of Laboratory Medicine in [address] [address] Stefan Salomon M.D. Anticoagulant Therapy; Mutation Factor V Leiden Heterozygous (HCC); Monitoring For Therapeutic Drug Therapy; Thrombosis Deep Vein Personal History Discharge Disposition: Home or Self Care 10/10/2023 Refill Department of Family Medicine, [facility], in [address] [address] Stefan Salomon M.D. Med Refill 09/24/2023 Refill Department of Family Medicine, [facility], in [address] [phone] Stefan Salomon M.D. Med Refill 09/20/2023 11:00 AM CDT Anticoagulation Visit Department of Anticoagulation in [place], [place] [address] [place] [phone] Stefan Salomon M.D. Thrombosis Deep Vein Personal History (Primary Dx); Anticoagulant Therapy; Mutation Factor V Leiden Heterozygous (HCC); Monitoring For Therapeutic Drug Therapy; Hypertension Essential Primary 09/20/2023 7:10 AM CDT - 09/20/2023 11:59 PM CDT Hospital Encounter Department of Laboratory Medicine in [address] [address] Stefan Salomon M.D. Anticoagulant Therapy; Mutation Factor V Leiden Heterozygous (HCC); Monitoring For Therapeutic Drug Therapy; Thrombosis Deep Vein Personal History Discharge Disposition: Home or Self Care 09/13/2023 9:30 AM CDT Anticoagulation Visit Department of Anticoagulation in [address] [address] Stefan Salomon M.D. Anticoagulant Therapy; Mutation Factor V Leiden Heterozygous (HCC); Monitoring For Therapeutic Drug Therapy; Thrombosis Deep Vein Personal History 09/13/2023 7:10 AM CDT - 09/13/2023 11:59 PM CDT Hospital Encounter Department of Laboratory Medicine in [address] [address] Stefan Salomon M.D. Anticoagulant Therapy [Z79.01]; Mutation [...] How often do you attend scientologist or alevism serv ices? Never 07/09/2022 Do [...] Answer Date Recorded PHQ-2 Score 0 06/12/2023 [facility] of Occupat ional [facility] - Occupational Stress Questionnaire Answer Date Recorded [...] file Gender Identity Male 07/02/2017 9:12 AM TOBACCO DRIER OPERATOR Sexual Orientation Straight 07/02/2017 9: 12 AM TOBACCO DRIER OPERATOR Last Filed Vital Signs Vital Sign Reading Time Taken Comments Blood Pressure 148/82 06/12/2023 4:23 PM TOBACCO DRIER OPERATOR Pulse 63 06/12/2023 4:23 PM TOBACCO DRIER OPERATOR Temperature 36.6 ??C (97.9 ??F) 06/12/2023 4:23 PM CS T Respiratory Rate 18 06/12/2023 4:23 PM TOBACCO DRIER OPERATOR Oxygen Saturation 94% 06/12/2023 4:23 PM TOBACCO DRIER OPERATOR Inhaled Oxygen Concentration - - Weight 95.6 kg (210 lb 12.2 oz) 06/12/2023 4:23 PM TOBACCO DRIER OPERATOR Height 176.5 cm (5' 9.49) 08/01/2022 9:59 AM CS T Body Mass Index 30.69 08/01/2022 9:59 AM TOBACCO DRIER OPERATOR Plan of Treatment Upcoming Encounters Date Type Department Care Team (Latest Contact Info) Description 01/03/2024 8:50 AM CDT Appointment Department of Laboratory Medicine in [address] [place] [phone] Stefan Salomon M.D. [address] [place] [phone] 01/03/2024 9:30 AM CDT Anticoagulation Visit Department of Anticoagulation in [place], [place] [address] [place] [address] Stefan Salomon M.D. [address] [place] [phone] Health Maintenance Due Date Last Done Comments CT Colonography 1950 Cologuard 1950 Zoster Vaccines (1 of 2) 1998 Colonoscopy 12/28/2019 12/27/2014 Colorectal Cancer Surveillance 12/28/2019 Visit: Medicare Annual Wellness 07/10/2023 3 Office Visit for Blood Press ure Check / Re-check 09/11/2023 06/12/2023 COVID-19 Vaccine (2022-07 4 season) 2023 05/23/2023, 04/21/2022, 04/14/2021, Additional history exists Influenza Vaccine (#1) 2024 3, 04/19/2022, 04/20/2021, Additional history exists Creatinine Level (Kidney Fun [...] Pneumococcal vaccine (65+ years) Completed 07/02/19, 10/29/2014 Depression Screening (Annual PHQ-2) Completed 06/12/2023 Fall Risk Screen (Annual) Completed 06/12/2023 Medical Devices Implanted Type Area Beer Coil Cleaner Device Identifier Shelf Expiration Date Model / Serial / Lot Mineralized Cancellous Bone 2.0 - Anne [id number] Implanted:Qty: 1 on 08/10/2015 Bone or Tissue Tooth [facility] Description:Device Manufactu [email or web address]. Body Location - Other. tooth-13. Device Status Text - [id number]. Hardware E.G. Pins/Screws/Rk s Hardware e.g. pins/screws /rods Mouth Abutment Nobrpl Rp 4.3x5 - Anne [id number] Implanted:Qty: 1 on 07/03/2007 Hardware e.g. pins/screws /rods Tooth [employer] Description:Device Manufactu rer - [employer]. Body Location - Tooth 5. Device Status Text - [id number]. Screw Rst Curly Taper Rp 4.3x13.0 - Anne [id number] Implanted:Qty: 1 on 07/03/2007 Hardware e.g. pins/screws /rods Tooth [employer] Description:Device Manufactu rer - [employer]. Body Location - Tooth 5. Device Status Text - [id number]. Screw Nobrpl Curly Tap Certified Meeting Professional 3.5x11.5 - Anne [id number] Implanted:Qty: 1 on 03/03/2012 Hardware e.g. pins/screws /rods Tooth [employer] Description:Device Manufactu rer - [employer]. Body Location - Tooth 29. Device Status Text - [id number]. Abutment Nobrpl Certified Meeting Professional 3.5x5 - Anne [id number] Implanted:Qty: 1 on 03/03/2012 Hardware e.g. pins/screws /rods Tooth [employer] Description:Device Manufactu rer - [employer]. Body Location - Tooth 29. Device Status Text - [id number]. Abutment Nobrpl Certified Meeting Professional 3.5x3 - Anne [id number] Implanted:Qty: 1 on 08/23/2014 Hardware e.g. pins/screws /rods Tooth [employer] Description:Device Manufactu rer - [employer]. Body Location - Other. tooth- 28. Device Status Text - [id number]. Abutment Nobrpl Certified Meeting Professional 3.5x3 - Anne [id number] Implanted:Qty: 1 on 08/23/2014 Hardware e.g. pins/screws /rods Tooth [employer] Description:Device Manufactu rer - [employer]. Body Location - Other. tooth- 28. Device Status Text - [id number]. Screw Nobrpl Curly Taper Certified Meeting Professional 3.5x13.0 - Anne [id number] Implanted:Qty: 1 on 08/23/2014 Hardware e.g. pins/screws /rods Tooth [employer] Description:Device Manufactu rer - [employer]. Body Location - Other. tooth- 28. Device Status Text - [id number]. Screw Nobrpl Curly Taper Rp 4.3x10.0 - Anne [id number] Implanted:Qty: 1 on 08/10/2015 Hardware e.g. pins/screws /rods Tooth [employer] Description:Device Manufactu rer - [employer]. Body Location - Other. tooth- 20. Device Status Text - [id number]. Brane Fix Rst Tiunite Rp 4.3 X 13.0 - Anne [id number] Implanted:Qty: 1 on 08/10/2015 Hardware e.g. pins/screws /rods Tooth [employer] Description:Device Manufactu rer - [employer]. Body Location - Other. tooth- 21. Device Status Text - [id number]. Brane Fix Rst Tiunite Rp 4.3 X 13.0 - Anne [id number] Implanted:Qty: 1 on 08/10/2015 Hardware e.g. pins/screws /rods Tooth [employer] Description:Device Manufactu rer - [employer]. Body Location - Other. tooth- 13. Device Status Text - [id number]. Brane Fix Rst Tiunite Rp 4.3 X 13.0 - Anne [id number] Implanted:Qty: 1 on 08/10/2015 Hardware e.g. pins/screws /rods Tooth [employer] Description:Device Manufactu rer - [employer]. Body Location - Other. tooth- 11. Device Status Text - [id number]. Abutment Nobrpl Rp 4.3x3 - Anne [id number] Implanted:Qty: 1 on 02/08/2016 Hardware e.g. pins/screws /rods Tooth [employer] Description:Device Manufactu rer - [employer]. Body Location - Other. tooth- 20. Device Status Text - [id number]. Abutment Nobrpl Rp 5.3x3 - Anne [id number] Implanted:Qty: 1 on 02/08/2016 Hardware e.g. pins/screws /rods Tooth [employer] Description:Device Manufactu rer - [employer]. Body Location - Other. tooth- 13. Device Status Text - [id number]. Abutment Nobrpl Rp 4.3x3 - Anne [id number] Implanted:Qty: 1 on 02/08/2016 Hardware e.g. pins/screws /rods Tooth [employer] Description:Device Manufactu rer - [employer]. Body Location - Other. tooth- 21. Device Status Text - [id number]. Abutment Nobrpl Rp 4.3x3 - Anne [id number] Implanted:Qty: 1 on 02/08/2016 Hardware e.g. pins/screws /rods Tooth [employer] Description:Device Manufactu rer - [employer]. Body Location - Other. tooth- 11. Device Status Text - [id number]. Patch Dura-Guard 4x 4 - Anne [id number] Implanted:Qty: 1 on 08/19/1996 Mesh or Patch [employer] Description:Device Manufactu rer - [employer]. Device Status Text - MESHPATCH-7189. Allograft Bioxclude Chorion 1cm X 2.5cm - Anne [id number] Implanted:Qty: 1 on 01/15/2014 Mesh or Patch Tooth Unknown Description:Device Manufactu rer - Unknown. Body Location - tooth-28. Device Status Text - [id number]. Allograft Bioxclude Chorion 1cm X 2.5cm - Anne [id number] Implanted:Qty: 1 on 01/15/2014 Mesh or Patch Tooth Unknown Description:Device Manufactu rer - Unknown. Body Location - tooth-5. Device Status Text - StadionautPATCH-[id number]. Allograft Bioxclude Chorion 1.5cm X 2cm - Anne [id number] Implanted:Qty: 1 on 08/10/2015 Mesh or Patch Other/Legacy - See Implant Description Unknown Description:Device Manufactu rer - Unknown. Body Location - Other. Left. Device Status Text - StadionautPATCH-[id number]. Procedures Procedure Name Priority Date/Time Associated Diagnosis [...] LIPID PANEL, S Routine 04/19/2023 7:39 AM TOBACCO DRIER OPERATOR Hyperlipidemia BASIC METABOLIC PANEL, S/P Routine 04/19/2023 7:39 AM TOBACCO DRIER OPERATOR Hypertension Essential Primary HCV AB SCRN W/REFLEX TO HCV PCR, S Routine 06/15/2016 9:01 AM TOBACCO DRIER OPERATOR COLONOSCOPY Routine 12/27/2014 US AORTA Routine 11/09/2014 8:30 AM CDT from Last 3 Months or Most Recently Relevant to Health Maintenance Results * INR Reflex, POCT, Blood (11/22/2023 8:01 AM CDT) Only the most recent of4 resultswithin the time period is included. INR Reflex, POCT, B 2.3 11/22/2023 8:01 AM CDT [facility] Comment: ----ADDITIONAL INFORMATION---- Standard intensity warfarin therapeutic range: 2.0 to 3.0 ?? High intensity warfarin therapeutic range: 2.5 to 3.5 Blood (Blood, Capillary) 11/22/2023 8:01 AM CDT 11/22/2023 8:01 AM CDT Stefan Salomon M.D. LAB POCT ORDERABLES - DEVICE Performing Organization Address [facility]/State/[facility] Co de Phone Number [facility] [address] [place] [address], [facility] [place] [address] * Lipid Panel (04/19/2023 7:39 AM TOBACCO DRIER OPERATOR) Triglycerides 113 mg/dL 04/19/2023 11:48 AM TOBACCO DRIER OPERATOR [facility] Comment: ----REFERENCE VALUE---- Normal: <150 mg/dL Borderline High: 150-199 mg/dL High: 200-499 mg/dL Very High: > or =500 mg/dL Cholesterol, Total 144 mg/dL 2022 11:48 AM TOBACCO DRIER OPERATOR [facility] Comment: ----REFERENCE VALUE---- Desirable: < 200 mg/dL Borderline High: 200 - 239 mg/dL High: > or = 240 mg/dL Cholesterol, LDL, Calculated 76 mg/dL 04/19/2023 12:10 PM TOBACCO DRIER OPERATOR [facility] Comment: ----REFERENCE VALUE---- Desirable: <100 mg/dL Above Desirable: 100-129 mg/dL Borderline High: 130-159 mg/dL High: 160-189 mg/dL Very High: >=190 mg/dL ----ADDITIONAL INFORMATION---- LDL cholesterol calculated using the Sosa/NIH equation. Cholesterol, HDL 48 >=40 mg/dL 11/17/20 23 12:10 PM TOBACCO DRIER OPERATOR [facility] Cholesterol, Non-HDL, Calculated 96 mg/dL 04/19/2023 12:10 PM TOBACCO DRIER OPERATOR [facility] Comment: ----REFERENCE VALUE---- Desirable: <130 mg/dL Above Desirable: 130-159 mg/dL Borderline High: 160-189 mg/dL High: 190-219 mg/dL Very High: > or =220 mg/dL Fasting (8 HR or more) No 04/19/2023 7:40 AM TOBACCO DRIER OPERATOR [facility] Blood (Blood, Venous) 04/19/2023 7:39 AM TOBACCO DRIER OPERATOR 04/19/2023 7:40 AM TOBACCO DRIER OPERATOR Stefan Salomon M.D. LAB BLOOD ADD-ON [facility] [address] [place] [address], [facility] CN[facility] [place] [address] * Basic Metabolic Panel (04/19/2023 7:39 AM TOBACCO DRIER OPERATOR) Potassium, P 4.1 3.6 - 5.2 mmol/L 04/19/2023 11:48 AM TOBACCO DRIER OPERATOR [facility] Sodium, P 138 135 - 145 mmol/L 04/19/2023 11:48 AM TOBACCO DRIER OPERATOR [facility] Chloride, P 102 98 - 107 mmol/L 04/19/2023 11:48 AM TOBACCO DRIER OPERATOR [facility] Bicarbonate, P 23 22 - 29 mmol/L 04/19/2023 11:48 AM TOBACCO DRIER OPERATOR [facility] Anion Gap, P 13 7 - 15 04/19/2023 11:48 AM TOBACCO DRIER OPERATOR [facility] BUN (Blood Urea Nitrogen), P 21 8 - 24 mg/dL 04/19/2023 11:48 AM TOBACCO DRIER OPERATOR [facility] Creatinine 0.87 0.74 - 1.35 mg/dL 04/19/2023 11:48 AM TOBACCO DRIER OPERATOR [facility] Estimated GFR (eGFR) >90 >=60 mL/min/BSA 04/19/2023 11:48 AM TOBACCO DRIER OPERATOR [facility] Comment: Estimated GFR calculated using the 2020 CKD_EPI creatinine equation. Calcium, Total, P 9.1 8.8 - 10.2 mg/dL 04/19/2023 11:48 AM TOBACCO DRIER OPERATOR [facility] Glucose, P 103 70 - 140 mg/dL 04/19/2023 11:48 AM TOBACCO DRIER OPERATOR [facility] Blood (Blood, Venous) 04/19/2023 7:39 AM TOBACCO DRIER OPERATOR 04/19/2023 7:40 AM TOBACCO DRIER OPERATOR Stefan Salomon M.D. LAB BLOOD ADD-ON Performing Organization Address City/[facility] Co de Phone Number [facility] [address] [place] [phone], [facility] in [address] [address] * HCV Ab w/Reflex to HCV PCR, S (medicare) (06/15/2016 9:01 AM TOBACCO DRIER OPERATOR) HXHCV Ab [facility] Reactive Negative POWERCHART Comment: Supplemental testing for HCV RNA is ordered to rule out active HCV infection. Qukioz-vb-zxddyf ratio is >=1.00 and <8.00. Test Performed by: [place] [address] Furnace Feeder: Armando Chavez II, M.D., Ph.D. Blood 06/15/2016 9:01 AM TOBACCO DRIER OPERATOR Abraham Valle M.D. LAB MICROBIOLOGY - B LOOD ORDERABLES Performing Organization Address City/[facility] Co de Phone Number POWERCHART * Colonoscopy (12/27/2014) EXT Colonoscopy Abnormal [...] IMPRESSION: Normal abdominal aorta Sulaiman Ordaz Jr., REmilia.M.SCoty IMG US PROCEDURES from Last 3 Months or Most Recently Relevant to Health Maintenance Care Teams Licensed Funeral Director And Embalmer Relationship Specialty Start Date End Date Stefan Salomon M.D. [address] [phone] PCP - General Family Medicine 07/09/22 Anticoagulation Team 07/09/22
--- OUTSIDE RECORDS SUMMARY | 2023-12-10 07:54 | XMS_ITS | Encounter Summary ---
Author Organization [facility] Address [address] [place] [address] Care Team Providers Care Wastewater Plant Operator Name Role Phone Stefan Salomon M.D. Primary Care Provider [phone] Reason for Visit * Outpatient (Routine) - Authorized Specialty Diagnoses / Procedures Referred By Contac t Referred To Contact Anticoagulation Diagnoses Anticoagulant Therapy Mutation Factor V Leiden Heterozygous (HCC) Monitoring For Therapeutic Drug Therapy Thrombosis Deep Vein Personal History Stefan Salomon M.D. [address] [phone] [facility] Referral ID Status Reason Start Date Expiration Date V isits Requested Visits Authorized [id number] Authorized 02/01/2023 01/31/2026 300 300 Encounter Details Date Type Department Care Team (Latest Contact Info) Description 11/26/2023 8:00 AM CDT Anticoagulation Visit Department of Anticoagulation in [place], [place] [address] [place] [address] Stefan Salomon M.D. [address] [phone] Anticoagulant Therapy [Z79.01] (Primary Dx); [...] How often do you attend yazidi or congregational serv ices? Never 07/09/2022 Do [...] Answer Date Recorded PHQ-2 Score 0 06/12/2023 [facility] [place] of Occupat ional Health - Occupational Stress [...] file Gender Identity Male 07/02/2017 9:12 AM SUBCONTRACTS MANAGER Sexual Orientation Straight 07/02/2017 9: 12 AM SUBCONTRACTS MANAGER documented as of this encounter Patient Instructions * Patient Instructions* Joi David R.N. - 11/26/2023 8:00 AM CDT Your next INR will be 01/03/24. You will need to call the Anticoagulation Program for warfarin dosingat the scheduled time for your nurse visit, as indicated on your Patient Appointment Guide (PAG). To reschedule your appointment or for questions about your warfarin, please call Primary Care Anticoagulation Program at [phone] from 7:30 am to 4:30 pm. Saturday-Saturday [...] if you start any herbal or other keuz-zjh-jieozmd product (check with your doctor, a nurse, [...] this encounter Progress Notes * Joi David R.N. - 11/26/2023 8:00 AM CDT Warfarin Maintenance Nursing Protocol Goal Range 2.0-3.0 (version approved 07/2021) Visit Type: Telephone Primary reason for visit: Routine f/u OR f/u per previous visit recommendations Information provided by:patient INR result: 2.3 on 11/22/23 Goal range: 2.0-3.0 Inclusion Criteria: All inclusion [...] does NOT have atrial fibrillation/flutter, therefore no CHADS2/XAM1CP1-TTNv score calculated. Proceeded to maintenance warfarin dosing and follow-up, but offered patient return for follow-up INR in 8 weeks as 3 consecutive outpatient INRs within range. Additional Info: None Previous INR was therapeutic. Today???s INR is Therapeutic. Dosing and follow up recommendation: Protocol does not apply based on positive exclusion criteria indicated above stating consult required. Consulted Anticoagulation [facility] for plan. Currently bridging: no. INR is therapeutic/supratherapeutic. Additional dosing or follow-up information: Next INR in 6 weeks per consult with Anticoagulation [facility] Provider consulted: Essie Harris-Anticoagulation [facility] Pt is on injectable anticoagulant: No. Plan [...] CDT Appointment Department of Laboratory Medicine in [address] [phone] Stefan Salomon M.D. [address] [place] [phone] 01/03/2024 9:30 AM CDT Anticoagulation Visit Department of Anticoagulation in [place] [address] [place] [address] Stefan Salomon M.D. [address] [place] [phone] Scheduled Orders Name Type Priority Associated Diagnoses Orde r Schedule INR Reflex, POCT, Blood Point of Care Testing-Docked Device Routine Anticoagulant Therapy [Z79.01] Mutation Factor V Leiden Heterozygous (HCC) Monitoring For Therapeutic Drug Therapy [Z51.81] Thrombosis Deep Vein Personal History Expected: 01/03/2024, Expires: 02/25/2025 documented as of this encounter Visit Diagnoses Diagnosis Anticoagulant Therapy [Z79.01]- Primary Mutation Factor V Leiden Heterozygous (HCC) Monitoring For Therapeutic Drug Therapy [Z51.81] Thrombosis Deep Vein Personal History documented in this encounter Additional Health Concerns Assessment Noted Time PHQ-9 Depression Total Score: 1 06/12/19 24 4:14 PM SUBCONTRACTS MANAGER documented as of this encounter Care Teams Wastewater Plant Operator Relationship Specialty Start Date End Date Stefan Salomon M.D. [address] [place] [phone] PCP - General Family Medicine 07/09/22 Anticoagulation Team 07/09/22 documented as of this encounter
--- OUTSIDE RECORDS SUMMARY | 2023-12-10 07:54 | XMS_ITS | Encounter Summary ---
Author Organization [facility] Address [address] [place] [address] Care Team Providers Care Billet Cutter Name Role Phone Stefan Salomon M.D. Primary Care Provider [phone] Encounter Details Date Type Department Care Team (Latest Contact Info) Description 11/22/2023 7:56 AM CDT - 11/22/2023 11:59 PM CDT Hospital Encounter Department of Laboratory Medicine in [address] [phone] Stefan Salomon M.D. [address] [place] [phone] Anticoagulant Therapy [Z79.01]; Mutation Factor V Leiden [...] How often do you attend lutheran or pentecostal serv ices? Never 07/09/2022 Do [...] PHQ-2 Score 0 06/12/2023 [facility] - Occupational Stress Questionnaire [...] Gender Identity Male 07/02/2017 9:12 AM LEAD SHAREPOINT DEVELOPER Sexual Orientation Straight 07/02/2017 9: 12 AM LEAD SHAREPOINT DEVELOPER documented as of this encounter Medications at [...] Chronic Pain/Nonacute Pain. for pain 240 tablet 11/09/2023 12/04/2023 documented as of this encounter Plan of Treatment Upcoming Encounters Date Type Department Care Team (Latest Contact Info) Description 01/03/2024 8:50 AM CDT Appointment Department of Laboratory Medicine in [address] [phone] Stefan Salomon M.D. [address] [place] [address] [phone] 01/03/2024 9:30 AM CDT Anticoagulation Visit Department of Anticoagulation in [place], [place] [address] [place] [address] Stefan Salomon M.D. [address] [place] [address] [phone] documented as of this encounter Procedures Procedure Name Priority Date/Time Associated Diagnosis Comments INR REFLEX, POCT, B Routine 11/22/2023 8:01 AM CDT Anticoagulant Therapy [Z79.01] Mutation Factor V Leiden Heterozygous (HCC) Monitoring For Therapeutic Drug Therapy [Z51.81] Thrombosis Deep Vein Personal History documented in this encounter Results * INR Reflex, POCT, Blood (11/22/2023 8:01 AM CDT) INR Reflex, POCT, B 2.3 11/22/2023 8:01 AM CDT [facility] Comment: ----ADDITIONAL INFORMATION---- Standard intensity warfarin therapeutic range: 2.0 to 3.0 ?? High intensity warfarin therapeutic range: 2.5 to 3.5 Blood (Blood, Capillary) 11/22/2023 8:01 AM CDT 11/22/2023 8:01 AM CDT Stefan Salomon M.D. LAB POCT ORDERABLES - DEVICE [facility] [address] [place] [address], [place] CNFL [facility] in [address] [address] documented in this encounter Visit Diagnoses Diagnosis Anticoagulant Therapy [Z79.01] Mutation Factor V Leiden Heterozygous (HCC) Monitoring For Therapeutic Drug Therapy [Z51.81] Thrombosis Deep Vein Personal History documented in this encounter Additional Health Concerns Assessment Noted Time PHQ-9 Depression Total Score: 1 06/12/19 24 4:14 PM LEAD SHAREPOINT DEVELOPER documented as of this encounter Care Teams Billet Cutter Relationship Specialty Start Date End Date Stefan Salomon M.D. [address] [phone] PCP - General Family Medicine 07/09/22 Anticoagulation Team 07/09/22 documented as of this encounter
--- OUTSIDE RECORDS SUMMARY | 2023-12-10 07:55 | XMS_ITS | Encounter Summary ---
Author Organization [facility] Address [address] [place] [address] Care Team Providers Care Parts Technician Name Role Phone Stefan Salomon M.D. Primary Care Provider [phone] Encounter Details Date Type Department Care Team (Latest Contact Info) Description 10/11/2023 7:16 AM CDT - 10/11/2023 11:59 PM CDT Hospital Encounter Department of Laboratory Medicine in [address] [phone] Stefan Salomon M.D. [address] [place] [phone] Anticoagulant Therapy; Mutation Factor V Leiden Heterozygous [...] How often do you attend taoism or scientology serv ices? Never 07/09/2022 Do you belong [...] Gender Identity Male 07/02/2017 9:12 AM SUPERVISOR MALTED MILK Sexual Orientation Straight 07/02/2017 9: 12 AM SUPERVISOR MALTED MILK documented as of this encounter Medications at [...] CDT Appointment Department of Laboratory Medicine in [address] [phone] Stefan Salomon M.D. [address] [place] [phone] 01/03/2024 9:30 AM CDT Anticoagulation Visit Department of Anticoagulation in [place], [place] [address] [place] [phone] Stefan Salomon M.D. [address] [place] [phone] documented as of this encounter Procedures [...] Salomon M.D. LAB POCT ORDERABLES - DEVICE [facility] [address] [place] [address], [place] CNFL [facility] in [address] [address] documented in this encounter Visit Diagnoses Diagnosis Anticoagulant Therapy Mutation Factor V Leiden Heterozygous (HCC) Monitoring For Therapeutic Drug Therapy Thrombosis Deep Vein Personal History documented in this encounter Additional Health Concerns Assessment Noted Time PHQ-9 Depression Total Score: 1 06/12/19 24 4:14 PM SUPERVISOR MALTED MILK documented as of this encounter Care Teams Parts Technician Relationship Specialty Start Date End Date Stefan Salomon M.D. [address] [place] [phone] PCP - General Family Medicine 07/09/22 Anticoagulation Team 07/09/22 documented as of this encounter
--- OUTSIDE RECORDS SUMMARY | 2023-12-10 07:55 | XMS_ITS | Encounter Summary ---
Author Organization [facility] Address [address] [place] [address] Care Team Providers Care Hand Spray Operator Name Role Phone Stefan Salomon M.D. Primary Care Provider [phone] Reason for Referral * Outpatient (Routine) - Authorized Specialty Diagnoses / Procedures Referred By Piero t Referred To Contact Family Medicine Kolton Soriano P.A.-C., P.A. [address] [place] [phone] [facility] Region Referral ID Status Reason Start Date Expiration Date V isits Requested Visits Authorized [id number] Authorized 10/10/2023 04/10/2025 1 1 Scheduling Instructions 6 month follow up Reason for Visit * Reason Comments Med Refill Encounter Details Date Type Department Care Team (Late st Contact Info) Description 10/10/2023 Refill Department of Family Medicine, [facility], in [address] [phone] Stefan Salomon M.D. [address] [place] [address] [phone] Med Refill Social History Tobacco Use Types [...] How often do you attend methodist or scientologist serv ices? Never 07/09/2022 Do [...] Answer Date Recorded PHQ-2 Score 0 06/12/2023 [facility] Occupat ional Health [...] file Gender Identity Male 07/02/2017 9:12 AM CLAY PUDDLER Sexual Orientation Straight 07/02/2017 9: 12 AM CLAY PUDDLER documented as of this encounter Miscellaneous Notes [...] CDT Appointment Department of Laboratory Medicine in [address] [phone] Stefan Salomon M.D. [address] [place] [phone] 01/03/2024 9:30 AM CDT Anticoagulation Visit Department of Anticoagulation in [address] [phone] Stefan Salomon M.D. [address] [place] [phone] Scheduled Referrals Name Type Priority Associated Diagnoses Orde r Schedule Family Medicine office visit (clinic) Outpatient Referral Routine Expected: 12/11/2023 (Approximate), Expires: 01/09/2025 documented as of this encounter Visit Diagnoses Diagnosis Chronic Pain Syndrome Degeneration Disc Cervical Polyarthralgia documented in this encounter Additional Health Concerns Assessment Noted Time PHQ-9 Depression Total Score: 1 06/12/19 24 4:14 PM CLAY PUDDLER documented as of this encounter Care Teams Hand Spray Operator Relationship Specialty Start Date End Date Stefan Salomon M.D. [address] [phone] PCP - General Family Medicine 07/09/22 Anticoagulation Team 07/09/22 documented as of this encounter
--- OUTSIDE RECORDS SUMMARY | 2023-12-10 07:55 | XMS_ITS | Encounter Summary ---
Author Organization [facility] Address [address] [place] [address] Care Team Providers Care Concrete Mixer Truck Driver Name Role Phone Stefan Salomon M.D. Primary Care Provider [phone] Encounter Details Date Type Department Care Team (Latest Contact Info) Description 09/13/2023 7:10 AM CDT - 09/13/2023 11:59 PM CDT Hospital Encounter Department of Laboratory Medicine in [address] [phone] Stefan Salomon M.D. [address] [place] [address] [phone] Anticoagulant Therapy [Z79.01]; Mutation Factor V Leiden [...] How often do you attend voodoo or voodoo serv ices? Never 07/09/2022 Do [...] Answer Date Recorded PHQ-2 Score 0 06/12/2023 [facility] - Occupational Stress Questionnaire [...] file Gender Identity Male 07/02/2017 9:12 AM LEGAL RECORDS CLERK Sexual Orientation Straight 07/02/2017 9: 12 AM LEGAL RECORDS CLERK documented as of this encounter Medications at [...] CDT Appointment Department of Laboratory Medicine in [address] [place] [phone] Stefan Salomon M.D. [address] [place] [phone] 01/03/2024 9:30 AM CDT Anticoagulation Visit Department of Anticoagulation in [place], [place] [address] [place] [address] Stefan Salomon M.D. [address] [place] [address] [phone] documented as of this encounter Procedures Procedure Name Priority Date/Time Associated Diagnosis Comments INR REFLEX, POCT, B Routine 09/13/2023 7 :26 AM CDT documented in this encounter Results * INR Reflex, POCT, Blood (09/13/2023 7:26 AM CDT) INR Reflex, POCT, B 3.7 09/13/2023 7:26 AM CDT [facility] Comment: ----ADDITIONAL INFORMATION---- Standard intensity warfarin therapeutic range: 2.0 to 3.0 ?? High intensity warfarin therapeutic range: 2.5 to 3.5 Blood 09/13/2023 7:26 AM CDT 09/13/2023 9:29 AM CDT [facility] LAB POCT ORDERABLES - DEVICE [facility] [address] [place] [address], [facility] CNFL [facility] in [address] [address] documented in this encounter Visit Diagnoses Diagnosis Anticoagulant Therapy [Z79.01] Mutation Factor V Leiden Heterozygous (HCC) Monitoring For Therapeutic Drug Therapy [Z51.81] Thrombosis Deep Vein Personal History documented in this encounter Additional Health Concerns Assessment Noted Time PHQ-9 Depression Total Score: 1 06/12/19 24 4:14 PM LEGAL RECORDS CLERK documented as of this encounter Care Teams Concrete Mixer Truck Driver Relationship Specialty Start Date End Date Stefan Salomon M.D. [address] [phone] PCP - General Family Medicine 07/09/22 Anticoagulation Team 07/09/22 documented as of this encounter
--- OUTSIDE RECORDS SUMMARY | 2023-12-10 07:55 | XMS_ITS | Encounter Summary ---
Author Organization [facility] Address [address] [place] [address] Care Team Providers Care Sql Server Dba Developer Name Role Phone Stefan Salomon M.D. Primary Care Provider [phone] Reason for Visit * Outpatient (Routine) - Authorized Specialty Diagnoses / Procedures Referred By Contac t Referred To Contact Anticoagulation Diagnoses Anticoagulant Therapy Mutation Factor V Leiden Heterozygous (HCC) Monitoring For Therapeutic Drug Therapy Thrombosis Deep Vein Personal History Stefan Salomon M.D. [address] [phone] [facility] Referral ID Status Reason Start Date Expiration Date V isits Requested Visits Authorized [id number] Authorized 02/01/2023 01/31/2026 300 300 Encounter Details Date Type Department Care Team (Latest Contact Info) Description 10/15/2023 3:30 PM CDT Anticoagulation Visit Department of Anticoagulation in [place], [place] [address] [place] [address] Stefan Salomon M.D. [address] [phone] Anticoagulant Therapy [Z79.01] (Primary Dx); [...] How often do you attend nondenominational or jain serv ices? Never 07/09/2022 Do [...] Answer Date Recorded PHQ-2 Score 0 06/12/2023 [facility] [place] of Occupat ional Health - Occupational Stress [...] Gender Identity Male 07/02/2017 9:12 AM WATER ENGINEER Sexual Orientation Straight 07/02/2017 9: 12 AM WATER ENGINEER documented as of this encounter Patient [...] please call Primary Care Anticoagulation Program at [phone] from 7:30 am to 4:30 pm. Saturday-Saturday [...] if you start any herbal or other [id number]-[id number] product (check with your doctor, a nurse, [...] does NOT have atrial fibrillation/flutter, therefore no CHADS2/[id number] score calculated. Proceeded to maintenance warfarin dosing and follow-up, but offered patient return for follow-up INR in 6 weeks as 2 consecutive outpatient INRs within range. Additional Info: None Previous INR was therapeutic. Today???s INR is Therapeutic. Dosing and follow up recommendation: Protocol does not apply based on positive exclusion criteria indicated above stating consult required. Consulted Anticoagulation [facility] for plan. Currently bridging: no. INR [...] CDT Appointment Department of Laboratory Medicine in [address] [phone] Stefan Salomon M.D. [address] [place] [address] [phone] 01/03/2024 9:30 AM CDT Anticoagulation Visit Department of Anticoagulation in [place], [place] [address] [place] [phone] Stefan Salomon M.D. [address] [place] [phone] documented as of this encounter Results * INR Reflex, POCT, Blood (11/22/2023 8:01 AM CDT) INR Reflex, POCT, B 2.3 11/22/2023 8:01 AM CDT [facility] Comment: ----ADDITIONAL INFORMATION---- Standard intensity warfarin therapeutic range: 2.0 to 3.0 ?? High intensity warfarin therapeutic range: 2.5 to 3.5 Blood (Blood, Capillary) 11/22/2023 8:01 AM CDT 11/22/2023 8:01 AM CDT Stefan Salomon M.D. LAB POCT ORDERABLES - DEVICE [facility] [address] [place] [address], [place] CNFL [facility] in [address] [address] documented in this encounter Visit Diagnoses Diagnosis Anticoagulant Therapy [Z79.01]- Primary Mutation Factor V Leiden Heterozygous (HCC) Monitoring For Therapeutic Drug Therapy [Z51.81] Thrombosis Deep Vein Personal History documented in this encounter Additional Health Concerns Assessment Noted Time PHQ-9 Depression Total Score: 1 06/12/19 24 4:14 PM WATER ENGINEER documented as of this encounter Care Teams Sql Server Dba Developer Relationship Specialty Start Date End Date Stefan Salomon M.D. [address] [place] [phone] PCP - General Family Medicine 07/09/22 Anticoagulation Team 07/09/22 documented as of this encounter
--- OUTSIDE RECORDS SUMMARY | 2023-12-10 07:55 | XMS_ITS | Encounter Summary ---
Author Organization [facility] Address [address] [place] [address] Care Team Providers Care Chief Writer Name Role Phone Stefan Salomon M.D. Primary Care Provider [phone] Reason for Visit * Outpatient (Routine) - Closed Specialty Diagnoses / Procedures Referred By Piero self Referred To Contact Dermatology Diagnoses Pruritus Crystal Quintero M.D. [address] [place] [phone] [facility] Referral ID Status Reason Start Date Expiration Date Visits Re quested Visits Authorized [id number] Closed 07/25/2023 01/23/2025 1 1 Encounter Details Date Type Department Care Team (Late st Contact Info) Description 10/23/2023 1:20 PM CDT Office Visit Department of Dermatology in [place], [place] [address] [place] [phone] Indira Gold M.D. [address] [place] [phone] Keratosis Seborrheic Inflamed [L82.0] (Primary Dx); [...] How often do you attend synagogue or mormonism serv ices? Never 07/09/2022 Do [...] Recorded PHQ-2 Score 0 06/12/2023 [facility] - Occupational Stress Questionnaire [...] file Gender Identity Male 07/02/2017 9:12 AM INTENSIVE CARE AMBULANCE PARAMEDIC Sexual Orientation Straight 07/02/2017 9: 12 AM INTENSIVE CARE AMBULANCE PARAMEDIC documented as of this encounter Progress Notes * Indira Gold M.D. - 10/23/2023 1:20 PM CDT Dermatology Note - Established Patient Correspondence to: Dr. Gold The patient has been seen and examined with Eileen Nash M.D.. SUBJECTIVE CHIEF COMPLAINT Follow up stasis dermatitis HISTORY OF PRESENT ILLNESS Wesley Bautista is a 72 y.o. male, who presents to [facility] on 10/23/23 for the above chief complaint. He was last seen by [facility] on 07/25/2023 at which time he [...] CDT Appointment Department of Laboratory Medicine in [address] [phone] Stefan Salomon M.D. [address] [place] [phone] 01/03/2024 9:30 AM CDT Anticoagulation Visit Department of Anticoagulation in [place] [address] [place] [phone] Stefan Salomon M.D. [address] [place] [phone] documented as of this encounter Visit Diagnoses Diagnosis Keratosis Seborrheic Inflamed [L82.0]- Primary Pruritus Keratosis Actinic Dermatitis documented in this encounter Additional Health Concerns Assessment Noted Time PHQ-9 Depression Total Score: 1 06/12/19 24 4:14 PM INTENSIVE CARE AMBULANCE PARAMEDIC documented as of this encounter Care Teams Chief Writer Relationship Specialty Start Date End Date Stefan Salomon M.D. [address] [place] [phone] PCP - General Family Medicine 07/09/22 Anticoagulation Team 07/09/22 documented as of this encounter
--- OUTSIDE RECORDS SUMMARY | 2023-12-10 07:55 | XMS_ITS | Encounter Summary ---
Author Organization [facility] Address [address] [place] [address] Care Team Providers Care Life Skills Coordinator Volunteer Name Role Phone Stefan Salomon M.D. Primary Care Provider [phone] Reason for Visit * Reason Comments Med Refill Encounter Details Date Type Department Care Team (Late st Contact Info) Description 11/05/2023 Refill Department of Family Medicine, [facility], in [address] [phone] Stefan Salomon M.D. [address] [place] [phone] Med Refill Social History Tobacco Use [...] week 07/09/2022 How often do you attend adventist or mosque serv ices? Never 07/09/2022 Do [...] Answer Date Recorded PHQ-2 Score 0 06/12/2023 [facility] of Occupat ional Health - [...] file Gender Identity Male 07/02/2017 9:12 AM PHOTO MASK PATTERN GENERATOR Sexual Orientation Straight 07/02/2017 9: 12 AM PHOTO MASK PATTERN GENERATOR documented as of this encounter Miscellaneous Notes [...] Appointment Department of Laboratory Medicine in [address] [phone] Stefan Salomon M.D. [address] [place] [phone] 01/03/2024 9:30 AM CDT Anticoagulation Visit Department of Anticoagulation in [place], [place] [address] [place] [phone] Stefan Salomon M.D. [address] [place] [phone] documented as of this encounter Visit Diagnoses Diagnosis Chronic Pain Syndrome Degeneration Disc Cervical Polyarthralgia documented in this encounter Additional Health Concerns Assessment Noted Time PHQ-9 Depression Total Score: 1 06/12/19 24 4:14 PM PHOTO MASK PATTERN GENERATOR documented as of this encounter Care Teams Life Skills Coordinator Volunteer Relationship Specialty Start Date End Date Stefan Salomon M.D. [address] [place] [phone] PCP - General Family Medicine 07/09/22 Anticoagulation Team 07/09/22 documented as of this encounter
--- OUTSIDE RECORDS SUMMARY | 2023-12-10 07:55 | XMS_ITS | Encounter Summary ---
Author Organization [facility] Address [address] [place] [address] Care Team Providers Care Manager Environmental Health And Safety Name Role Phone Stefan Salomon M.D. Primary Care Provider [phone] Encounter Details Date Type Department Care Team (Latest Contact Info) Description 09/20/2023 7:10 AM CDT - 09/20/2023 11:59 PM CDT Hospital Encounter Department of Laboratory Medicine in [address] [phone] Stefan Salomon M.D. [address] [place] [phone] Anticoagulant Therapy; Mutation Factor V Leiden Heterozygous [...] How often do you attend yazidi or amish serv ices? Never 07/09/2022 Do [...] file Gender Identity Male 07/02/2017 9:12 AM OCTAVE BOARD RACKER Sexual Orientation Straight 07/02/2017 9: 12 AM OCTAVE BOARD RACKER documented as of this encounter Medications at [...] CDT Appointment Department of Laboratory Medicine in [address] [phone] Stefan Salomon M.D. [address] [place] [phone] 01/03/2024 9:30 AM CDT Anticoagulation Visit Department of Anticoagulation in [place], [place] [address] [place] [address] Stefan Salomon M.D. [address] [place] [phone] documented as of this encounter Procedures Procedure Name Priority Date/Time Associated Diagnosis Comments INR REFLEX, POCT, B Routine 09/20/2023 7 :20 AM CDT documented in this encounter Results * INR Reflex, POCT, Blood (09/20/2023 7:20 AM CDT) INR Reflex, POCT, B 2.3 09/20/2023 7:20 AM CDT [facility] Comment: ----ADDITIONAL INFORMATION---- Standard intensity warfarin therapeutic range: 2.0 to 3.0 ?? High intensity warfarin therapeutic range: 2.5 to 3.5 Blood 09/20/2023 7:20 AM CDT 09/20/2023 7:32 AM CDT Generic [facility] POCT ORDERABLES - DEVICE Performing Organization Address City/State/[facility] Co de Phone Number [facility] [address] [place] [address], [facility] [address] [address] documented in this encounter Visit Diagnoses Diagnosis Anticoagulant Therapy Mutation Factor V Leiden Heterozygous (HCC) Monitoring For Therapeutic Drug Therapy Thrombosis Deep Vein Personal History documented in this encounter Additional Health Concerns Assessment Noted Time PHQ-9 Depression Total Score: 1 06/12/19 24 4:14 PM OCTAVE BOARD RACKER documented as of this encounter Care Teams Manager Environmental Health And Safety Relationship Specialty Start Date End Date Stefan Salomon M.D. [address] [place] [address] [place] [phone] PCP - General Family Medicine 07/09/22 Anticoagulation Team 07/09/22 documented as of this encounter
--- OUTSIDE RECORDS SUMMARY | 2023-12-10 07:55 | XMS_ITS | Encounter Summary ---
Author Organization [facility] Address [address] [place] [address] Care Team Providers Care Lineworker Name Role Phone Stefan Salomon M.D. Primary Care Provider [phone] Reason for Visit * Outpatient (Routine) - Authorized Specialty Diagnoses / Procedures Referred By Contac t Referred To Contact Anticoagulation Diagnoses Anticoagulant Therapy Mutation Factor V Leiden Heterozygous (HCC) Monitoring For Therapeutic Drug Therapy Thrombosis Deep Vein Personal History Stefan Salomon M.D. [address] [address] [facility] Referral ID Status Reason Start Date Expiration Date V isits Requested Visits Authorized [id number] Authorized 02/01/2023 01/31/2026 300 300 Encounter Details Date Type Department Care Team (Latest Contact Info) Description 09/20/2023 11:00 AM CDT Anticoagulation Visit Department of Anticoagulation in [place], [place] [address] [place] [address] Stefan Salomon M.D. [address] [phone] Thrombosis Deep Vein Personal History [...] often do you attend oriental orthodox or quaker serv ices? Never 07/09/2022 Do [...] Answer Date Recorded PHQ-2 Score 0 06/12/2023 [facility] [place] of Occupat ional Health - Occupational Stress [...] Gender Identity Male 07/02/2017 9:12 AM BUYER INTERN Sexual Orientation Straight 07/02/2017 9: 12 AM BUYER INTERN documented as of this encounter Patient Instructions [...] please call Primary Care Anticoagulation Program at [phone] from 7:30 am to 4:30 pm. Saturday-Saturday [...] if you start any herbal or other cdtw-afw-wpgzlkw product (check with your doctor, a nurse, [...] indicated above stating consult required. Consulted Anticoagulation [facility] for plan. Currently bridging: no. INR is therapeutic/supratherapeutic. Additional dosing or follow-up information: Provider consulted: Essie Harris- Anticoagulation [facility] Pt is on injectable anticoagulant: No. Plan [...] Appointment Department of Laboratory Medicine in [address] [phone] Stefan Salomon M.D. [address] [place] [phone] 01/03/2024 9:30 AM CDT Anticoagulation Visit Department of Anticoagulation in [place], [place] [address] [place] [address] Stefan Salomon M.D. [address] [place] [phone] documented as of this encounter Results * INR Reflex, POCT, Blood (10/11/2023 7:25 AM CDT) INR Reflex, POCT, B 2.5 10/11/2023 7:25 AM CDT [facility] Comment: ----ADDITIONAL INFORMATION---- Standard intensity warfarin therapeutic range: 2.0 to 3.0 ?? High intensity warfarin therapeutic range: 2.5 to 3.5 Blood (Blood, Capillary) 10/11/2023 7:25 AM CDT 10/11/2023 7:25 AM CDT Stefan Salomon M.D. LAB POCT ORDERABLES - DEVICE Performing Organization Address City/State/[facility] Co de Phone Number [facility] [address] [place] [phone], [facility] CNFL [facility] in [address] [address] documented in this encounter Visit Diagnoses Diagnosis Thrombosis Deep Vein Personal History- Primary Anticoagulant Therapy Mutation Factor V Leiden Heterozygous (HCC) Monitoring For Therapeutic Drug Therapy Hypertension Essential Primary documented in this encounter Additional Health Concerns Assessment Noted Time PHQ-9 Depression Total Score: 1 06/12/19 24 4:14 PM BUYER INTERN documented as of this encounter Care Teams Lineworker Relationship Specialty Start Date End Date Stefan Salomon M.D. [address] [place] [address] [phone] PCP - General Family Medicine 07/09/22 Anticoagulation Team 07/09/22 documented as of this encounter
--- OUTSIDE RECORDS SUMMARY | 2023-12-10 07:55 | XMS_ITS | Encounter Summary ---
Author Organization [facility] Address [address] [place] [address] Care Team Providers Care Ld Teacher Name Role Phone Stefan Salomon M.D. Primary Care Provider [phone] Reason for Visit * Outpatient (Routine) - Authorized Specialty Diagnoses / Procedures Referred By Contac t Referred To Contact Anticoagulation Diagnoses Anticoagulant Therapy Mutation Factor V Leiden Heterozygous (HCC) Monitoring For Therapeutic Drug Therapy Thrombosis Deep Vein Personal History Stefan Salomon M.D. [address] [phone] [facility] Referral ID Status Reason Start Date Expiration Date V isits Requested Visits Authorized [id number] Authorized 02/01/2023 01/31/2026 300 300 Encounter Details Date Type Department Care Team (Latest Contact Info) Description 09/13/2023 9:30 AM CDT Anticoagulation Visit Department of Anticoagulation in [place], [place] [address] [place] [address] Stefan Salomon M.D. [address] [phone] Anticoagulant Therapy; Mutation Factor V [...] How often do you attend mandaen or religion serv ices? Never 07/09/2022 Do [...] Answer Date Recorded PHQ-2 Score 0 06/12/2023 [facility] [place] of Occupat ional Health - Occupational Stress [...] file Gender Identity Male 07/02/2017 9:12 AM WIRE DRAWING MACHINE OPERATOR Sexual Orientation Straight 07/02/2017 9: 12 AM WIRE DRAWING MACHINE OPERATOR documented as of this encounter Patient [...] please call Primary Care Anticoagulation Program at [phone] from 7:30 am to 4:30 pm. Saturday-Saturday [...] if you start any herbal or other rxmf-pdf-iouanai product (check with your doctor, a nurse, [...] CDT Appointment Department of Laboratory Medicine in [address] [phone] Stefan Salomon M.D. [address] [phone] 01/03/2024 9:30 AM CDT Anticoagulation Visit Department of Anticoagulation in [place], [place] [address] [place] [address] Stefan Salomon M.D. [address] [place] [phone] documented as of this encounter Visit Diagnoses Diagnosis Anticoagulant Therapy Mutation Factor V Leiden Heterozygous (HCC) Monitoring For Therapeutic Drug Therapy Thrombosis Deep Vein Personal History documented in this encounter Additional Health Concerns Assessment Noted Time PHQ-9 Depression Total Score: 1 06/12/19 24 4:14 PM WIRE DRAWING MACHINE OPERATOR documented as of this encounter Care Teams Ld Teacher Relationship Specialty Start Date End Date Stefan Salomon M.D. [phone] [place] [phone] PCP - General Family Medicine 07/09/22 Anticoagulation Team 07/09/22 documented as of this encounter
--- OUTSIDE RECORDS SUMMARY | 2023-12-10 07:55 | XMS_ITS | Encounter Summary ---
Author Organization [facility] Address [address] [place] [address] Care Team Providers Care Nurses Aide Name Role Phone Stefan Salomon M.D. Primary Care Provider [phone] Reason for Visit * Reason Comments Med Refill Encounter Details Date Type Department Care Team (Late st Contact Info) Description 09/03/2023 Refill Department of Family Medicine, [facility], in [address] [phone] Nicholas Olsen M.D., Ph.D. [address] [place] [address] Med Refill Social History Tobacco [...] How often do you attend baptist or scientologist serv ices? Never 07/09/2022 Do [...] Gender Identity Male 07/02/2017 9:12 AM MANAGER CREDIT COLLECTIONS Sexual Orientation Straight 07/02/2017 9: 12 AM MANAGER CREDIT COLLECTIONS documented as of this encounter Miscellaneous Notes [...] CDT Appointment Department of Laboratory Medicine in [address] [phone] Stefan Salomon M.D. [address] [place] [phone] 01/03/2024 9:30 AM CDT Anticoagulation Visit Department of Anticoagulation in [place] [address] [place] [address] Stefan Salomon M.D. [address] [place] [phone] documented as of this encounter Visit Diagnoses Diagnosis Chronic Pain Syndrome Degeneration Disc Cervical Polyarthralgia documented in this encounter Additional Health Concerns Assessment Noted Time PHQ-9 Depression Total Score: 1 06/12/19 24 4:14 PM MANAGER CREDIT COLLECTIONS documented as of this encounter Care Teams Nurses Aide Relationship Specialty Start Date End Date Stefan Salomon M.D. [address] [place] [phone] PCP - General Family Medicine 07/09/22 Anticoagulation Team 07/09/22 documented as of this encounter
--- OUTSIDE RECORDS SUMMARY | 2023-12-10 07:55 | XMS_ITS | Encounter Summary ---
Author Organization [facility] Address [address] [place] [address] Care Team Providers Care Economics Faculty Member Name Role Phone Stefan Salomon M.D. Primary Care Provider [phone] Reason for Visit * Reason Comments Med Refill Encounter Details Date Type Department Care Team (Late st Contact Info) Description 09/24/2023 Refill Department of Family Medicine, [facility], in [address] [phone] Stefan Salomon M.D. [address] [place] [phone] Med Refill Social History Tobacco Use [...] How often do you attend bahai or jew serv ices? 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 [address] [place] [phone] 01/03/2024 9:30 AM CDT Anticoagulation Visit Department of Anticoagulation in [place], [place] [address] [place] [address] Stefan Salomon M.D. [address] [place] [phone] documented as of this encounter Visit Diagnoses Diagnosis Anticoagulant Therapy Mutation Factor V Leiden Heterozygous (HCC) Monitoring For Therapeutic Drug Therapy Thrombosis Deep Vein Personal History documented in this encounter Additional Health Concerns Assessment Noted Time PHQ-9 Depression Total Score: 1 06/12/19 24 4:14 PM VARSITY BASEBALL COACH documented as of this encounter Care Teams Economics Faculty Member Relationship Specialty Start Date End Date Stefan Salomon M.D. [address] [place] [phone] PCP - General Family Medicine 07/09/22 Anticoagulation Team 07/09/22 documented as of this encounter
== END 2023-12-10 07:52 | disposition home or self-care (01) ==
LOC: WOUND 07:51
PROVIDERS: PCP Student in an Organized Health Care Education/Training Program; Visit Provider Nurse Practitioner Family
DX: I87.312 Chronic venous hypertension (idiopathic) with ulcer of left lower extremity (principal); L97.322 Non-pressure chronic ulcer of left ankle with fat layer exposed; I89.0 Lymphedema, not elsewhere classified
CPT/HCPCS: 11042

== ENCOUNTER 2023-12-24 08:05 | Outpatient (CLI) | payer MEDICARE, BC, SELFPAY ==
--- OUTSIDE RECORDS SUMMARY | 2023-12-24 08:08 | XMS_ITS | Clinical Summary ---
Author Organization [facility] Address [place], [place] [address] Care Team Providers Care Ladle Patcher Name Role Phone Yue Alonso Thomasmedhat [facility] Primary Care Provider Allergies Active Allergy Reactions [...] Comments Blood Pressure 117/67 05/13/2021 2:55 PM PUBLIC HEALTH SPECIALIST Pulse 103 05/13/2021 2:55 PM PUBLIC HEALTH SPECIALIST Temperature 36.9 ??C (98.4 ??F) 05/13/2021 2:55 PM CS T Respiratory Rate 18 05/13/2021 2:55 PM PUBLIC HEALTH SPECIALIST Oxygen Saturation 99% 05/13/2021 2:55 PM PUBLIC HEALTH SPECIALIST Inhaled Oxygen Concentration - - Weight 97.8 kg (215 lb 9.8 oz) 07/04/2022 11:35 AM PUBLIC HEALTH SPECIALIST Height 175.7 cm (5' 9.17) 07/04/2022 11:[address] Body Mass Index 31.68 07/04/2022 11:35 AM PUBLIC HEALTH SPECIALIST Plan of Treatment Health Maintenance Due Date [...] 8:51 AM 12/27/2014 12:46 PM Care Teams Ladle Patcher Relationship Specialty Start Date End Date Yue Alonso MBBS [address] [place] [address] [place] [address] PCP - General Family Practice 06/26/22
--- OUTSIDE RECORDS SUMMARY | 2023-12-24 08:09 | XMS_ITS | Encounter Summary ---
Author Organization [facility] Address [address] [place] [address] Care Team Providers Care Greenhouse Assistant Name Role Phone Stefan Salomon M.D. Primary Care Provider [phone] Reason for Visit * Outpatient (Routine) - Authorized Specialty Diagnoses / Procedures Referred By Contdayana t Referred To Contact Anticoagulation Diagnoses Anticoagulant Therapy Mutation Factor V Leiden Heterozygous (HCC) Monitoring For Therapeutic Drug Therapy Thrombosis Deep Vein Personal History Stefan Salomon M.D. [address] [phone] [facility] Referral ID Status Reason Start Date Expiration Date V isits Requested Visits Authorized [id number] Authorized 02/01/2023 01/31/2026 300 300 Encounter Details Date Type Department Care Team (Latest Contact Info) Description 11/26/2023 8:00 AM CDT Anticoagulation Visit Department of Anticoagulation in [place], [place] [address] [place] [address] Stefan Salomon M.D. [address] [phone] Anticoagulant Therapy [Z79.01] (Primary Dx); [...] How often do you attend restorationist or amish serv ices? 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 Saturday-Saturday [...] if you start any herbal or other nhuy-jwt-alindej product (check with your doctor, a nurse, [...] does NOT have atrial fibrillation/flutter, therefore no CHADS2/LOU5LR9-WYDw score calculated. Proceeded to maintenance warfarin dosing and follow-up, but offered patient return for follow-up INR in 8 weeks as 3 consecutive outpatient INRs within range. Additional Info: None Previous INR was therapeutic. Today???s INR is Therapeutic. Dosing and follow up recommendation: Protocol does not apply based on positive exclusion criteria indicated above stating consult required. Consulted Anticoagulation [facility] for plan. Currently bridging: no. INR is therapeutic/supratherapeutic. Additional dosing or follow-up information: Next INR in 6 weeks per consult with Anticoagulation [facility] Provider consulted: Essie Harris-Anticoagulation [facility] Pt is on [...] Appointment Department of Laboratory Medicine in [address] [phone] Stefan Salomon M.D. [address] [place] [phone] 01/03/2024 9:30 AM CDT Anticoagulation Visit Department of Anticoagulation in [place] [address] [place] [address] Stefan Salomon M.D. [address] [place] [phone] Scheduled Orders Name Type Priority Associated Diagnoses [...] Total Score: 1 06/12/19 24 4:14 PM HIGH SCHOOL SPORTS COACH documented as of this encounter Care Teams Greenhouse Assistant Relationship Specialty Start Date End Date Stefan Salomon M.D. [address] [place] [phone] PCP - General Family Medicine 07/09/22 Anticoagulation Team 07/09/22 documented as of this encounter
--- OUTSIDE RECORDS SUMMARY | 2023-12-24 08:09 | XMS_ITS | Encounter Summary ---
Author Organization [facility] Address [address] [place] [address] Care Team Providers Care Explosive Ordnance Specialist Name Role Phone Stefan Salomon M.D. Primary Care Provider [phone] Encounter Details Date Type Department Care Team (Latest Contact Info) Description 11/22/2023 7:56 AM CDT - 11/22/2023 11:59 PM CDT Hospital Encounter Department of Laboratory Medicine in [address] [phone] Stefan Salomon M.D. [address] [place] [phone] Anticoagulant Therapy [Z79.01]; Mutation Factor V Leiden [...] How often do you attend protestant or voodoo serv ices? Never 07/09/2022 Do [...] Answer Date Recorded PHQ-2 Score 0 06/12/2023 [facility] - Occupational Stress Questionnaire [...] file Gender Identity Male 07/02/2017 9:12 AM SALESPERSON BOOKS Sexual Orientation Straight 07/02/2017 9: 12 AM SALESPERSON BOOKS documented as of this encounter Medications at [...] CDT Appointment Department of Laboratory Medicine in [address] [phone] Stefan Salomon M.D. [address] [place] [phone] 01/03/2024 9:30 AM CDT Anticoagulation Visit Department of Anticoagulation in [place], [place] [address] [place] [address] Stefan Salomon M.D. [address] [place] [phone] documented as of this encounter Procedures Procedure [...] POCT, B 2.3 11/22/2023 8:01 AM CDT [facility] Comment: ----ADDITIONAL INFORMATION---- Standard intensity warfarin therapeutic range: 2.0 to 3.0 ?? High intensity warfarin therapeutic range: 2.5 to 3.5 Blood (Blood, Capillary) 11/22/2023 8:01 AM CDT 11/22/2023 8:01 AM CDT Stefan Salomon M.D. LAB POCT ORDERABLES - DEVICE [facility] [address] [place] [address], [place] CNFL [facility] in [address] [address] documented in this encounter Visit Diagnoses Diagnosis Anticoagulant Therapy [Z79.01] Mutation Factor V Leiden Heterozygous (HCC) Monitoring For Therapeutic Drug Therapy [Z51.81] Thrombosis Deep Vein Personal History documented in this encounter Additional Health Concerns Assessment Noted Time PHQ-9 Depression Total Score: 1 06/12/19 24 4:14 PM SALESPERSON BOOKS documented as of this encounter Care Teams Explosive Ordnance Specialist Relationship Specialty Start Date End Date Stefan Salomon M.D. [address] [phone] PCP - General Family Medicine 07/09/22 Anticoagulation Team 07/09/22 documented as of this encounter
--- OUTSIDE RECORDS SUMMARY | 2023-12-24 08:09 | XMS_ITS | Encounter Summary ---
Author Organization [facility] Address [address] [place] [address] Care Team Providers Care Ranch Manager Name Role Phone Stefan Salomon M.D. Primary Care Provider [phone] Reason for Visit * Outpatient (Routine) - Authorized Specialty Diagnoses / Procedures Referred By Contdayana t Referred To Contact Anticoagulation Diagnoses Anticoagulant Therapy Mutation Factor V Leiden Heterozygous (HCC) Monitoring For Therapeutic Drug Therapy Thrombosis Deep Vein Personal History Stefan Salomon M.D. [address] [phone] [facility] Referral ID Status Reason Start Date Expiration Date V isits Requested Visits Authorized [id number] Authorized 02/01/2023 01/31/2026 300 300 Encounter Details Date Type Department Care Team (Latest Contact Info) Description 10/15/2023 3:30 PM CDT Anticoagulation Visit Department of Anticoagulation in [place], [place] [address] [place] [address] Stefan Salomon M.D. [address] [phone] Anticoagulant Therapy [Z79.01] (Primary Dx); [...] How often do you attend cheondoism or sabianist serv ices? Never 07/09/2022 Do you belong [...] Answer Date Recorded PHQ-2 Score 0 06/12/2023 [facility] [place] of Occupat ional Health - Occupational Stress [...] file Gender Identity Male 07/02/2017 9:12 AM BROOCH AND BRACELET MAKER Sexual Orientation Straight 07/02/2017 9: 12 AM BROOCH AND BRACELET MAKER documented as of this encounter Patient Instructions [...] please call Primary Care Anticoagulation Program at [phone] from 7:30 am to 4:30 pm. Saturday-Saturday [...] if you start any herbal or other vwii-zhj-jresgyf product (check with your doctor, a nurse, [...] does NOT have atrial fibrillation/flutter, therefore no CHADS2/MBB8GF5-VGKx score calculated. Proceeded to maintenance warfarin dosing and follow-up, but offered patient return for follow-up INR in 6 weeks as 2 consecutive outpatient INRs within range. Additional Info: None Previous INR was therapeutic. Today???s INR is Therapeutic. Dosing and follow up recommendation: Protocol does not apply based on positive exclusion criteria indicated above stating consult required. Consulted Anticoagulation [facility] for plan. Currently bridging: [...] CDT Appointment Department of Laboratory Medicine in [address] [phone] Stefan Salomon M.D. [address] [place] [phone] 01/03/2024 9:30 AM CDT Anticoagulation Visit Department of Anticoagulation in [place], [place] [address] [place] [address] Stefan Salomon M.D. [address] [place] [phone] documented as of this encounter Results * INR Reflex, POCT, Blood (11/22/2023 8:01 AM CDT) INR Reflex, POCT, B 2.3 11/22/2023 8:01 AM CDT [facility] Comment: ----ADDITIONAL INFORMATION---- Standard intensity warfarin therapeutic range: 2.0 to 3.0 ?? High intensity warfarin therapeutic range: 2.5 to 3.5 Blood (Blood, Capillary) 11/22/2023 8:01 AM CDT 11/22/2023 8:01 AM CDT Stefan Salomon M.D. LAB POCT ORDERABLES - DEVICE [facility] [address] [place] [address], [place] CNFL [facility] in [address] [address] documented in this encounter Visit Diagnoses Diagnosis Anticoagulant Therapy [Z79.01]- Primary Mutation Factor V Leiden Heterozygous (HCC) Monitoring For Therapeutic Drug Therapy [Z51.81] Thrombosis Deep Vein Personal History documented in this encounter Additional Health Concerns Assessment Noted Time PHQ-9 Depression Total Score: 1 06/12/19 24 4:14 PM BROOCH AND BRACELET MAKER documented as of this encounter Care Teams Ranch Manager Relationship Specialty Start Date End Date Stefan Salomon M.D. [address] [place] [phone] PCP - General Family Medicine 07/09/22 Anticoagulation Team 07/09/22 documented as of this encounter
--- OUTSIDE RECORDS SUMMARY | 2023-12-24 08:09 | XMS_ITS | Referral Summary ---
Author Organization [facility] Address [address] [place] [address] Care Team Providers Care Creative Services Specialist Name Role Phone Stefan Salomon M.D. Primary Care Provider [phone] Source Comments Patient records contain information from all sites at [facility]. For routine questions regarding patient records, call [phone] during business hours, M-F 8:00 AM - 5:00 PM Central Time. Record requests for emergency care only can be directed to [phone] at any time.[facility] Encounters Date Type Department Care Team Description 12/02/2023 Refill Department of Family Medicine, [facility], in [address] [phone] Stefan Salomon M.D. Med Refill 11/26/2023 8:00 AM CDT Anticoagulation Visit Department of Anticoagulation in [place], [place] [address] [place] [phone] Stefan Salomon M.D. Anticoagulant Therapy [Z79.01] (Primary Dx); Mutation Factor V Leiden Heterozygous (HCC); Monitoring For Therapeutic Drug Therapy [Z51.81]; Thrombosis Deep Vein Personal History 11/22/2023 7:56 AM CDT - 11/22/2023 11:59 PM CDT Hospital Encounter Department of Laboratory Medicine in [address] [phone] Stefan Salomon M.D. Anticoagulant Therapy [Z79.01]; Mutation Factor V Leiden Heterozygous (HCC); Monitoring For Therapeutic Drug Therapy [Z51.81]; Thrombosis Deep Vein Personal History Discharge Disposition: Home or Self Care 11/05/2023 Refill Department of Family Medicine, [facility], in [address] [phone] Stefan Salomon M.D. Med Refill 10/23/2023 1:20 PM CDT Office Visit Department of Dermatology in [place], [place] [address] [place] [phone] Indira Gold M.D. Keratosis Seborrheic Inflamed [L82.0] (Primary Dx); Pruritus; Keratosis Actinic; Dermatitis 10/15/2023 3:30 PM CDT Anticoagulation Visit Department of Anticoagulation in [place], [place] [address] [place] [address] Stefan Salomon M.D. Anticoagulant Therapy [Z79.01] (Primary Dx); Mutation Factor V Leiden Heterozygous (HCC); Monitoring For Therapeutic Drug Therapy [Z51.81]; Thrombosis Deep Vein Personal History 10/11/2023 7:16 AM CDT - 10/11/2023 11:59 PM CDT Hospital Encounter Department of Laboratory Medicine in [address] [phone] Stefan Salomon M.D. Anticoagulant Therapy; Mutation Factor V Leiden Heterozygous (HCC); Monitoring For Therapeutic Drug Therapy; Thrombosis Deep Vein Personal History Discharge Disposition: Home or Self Care 10/10/2023 Refill Department of Family Medicine, [facility], in [address] [address] Stefan Salomon M.D. Med Refill 09/24/2023 Refill Department of Family Medicine, [facility], [address] [address] Stefan Salomon M.D. 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 No [...] Personal History 01/08/2014 Restless Leg Syndrome 10/14/2013 Overview (07/02/2017): Starts Klonopin on 07/09/2013. Inferior Vena Cava Filter 01/11/2012 Pseudogout 12/16/2011 Pain Knee 12/13/2011 Snoring 2011 Burning Sensation Skin 11/18/2011 Osteoarthritis 11/18/2011 Insomnia 11/18/2011 Pain Limb Generalized 11/18/2011 Overview (07/02/2017): Saw Neurologist at [facility] on 09/16/2009. MRI lumbar spine done on 09/09/2009. Apnea Sleep Obstructive 11/18/2011 Overview (08/19/2018): He does not use CPAP. He does not think he needs it. 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 Vascular (Lower Extremity) A nd Diabetic Ulcer NOS 10/02/2009 08/19/2018 Overview (10/23/2016): Venous Stasis Ulcer of right leg Fever [...] How often do you attend gnosticism or gnosticist serv ices? Never 07/09/2022 Do [...] Answer Date Recorded PHQ-2 Score 0 06/12/2023 [facility] of Occupat ional [...] Gender Identity Male 07/02/2017 9:12 AM [employer] Sexual Orientation Straight 07/02/2017 9: 12 AM [employer] Last Filed Vital Signs Vital Sign Reading Time Taken Comments Blood Pressure 148/82 06/12/2023 4:23 PM [employer] Pulse 63 06/12/2023 4:23 PM [employer] Temperature 36.6 ??C (97.9 ??F) 06/12/2023 4:23 PM CS T Respiratory Rate 18 06/12/2023 4:23 PM [employer] Oxygen Saturation 94% 06/12/2023 4:23 PM [employer] Inhaled Oxygen Concentration - - Weight 95.6 kg (210 lb 12.2 oz) 06/12/2023 4:23 PM [employer] Height 176.5 cm (5' 9.49) 08/01/2022 9:59 AM CS T Body Mass Index 30.69 08/01/2022 9:59 AM [employer] Plan of Treatment Upcoming Encounters Date Type Department Care Team (Latest Contact Info) Description 01/03/2024 8:50 AM CDT Appointment Department of Laboratory Medicine in [address] [phone] Stefan Salomon M.D. [address] [place] [phone] 01/03/2024 9:30 AM CDT Anticoagulation Visit Department of Anticoagulation in [place] [address] [place] [address] Stefan Salomon M.D. [address] [place] [phone] Medical Devices Implanted Type Area Rubber Process Hand Device Identifier Shelf Expiration Date Model / Serial / Lot Mineralized Cancellous Bone 2.0 - Anne [id number] Implanted:Qty: 1 on 08/10/2015 Bone or Tissue Tooth [employer] Description:Device Manufactu rer - [employer]. Body Location - Other. tooth-13. Device Status Text - [id number]. Hardware E.G. Pins/Screws/Rk s Hardware e.g. pins/screws /rods Mouth Abutment Nobrpl Rp 4.3x5 - Anne [id number] Implanted:Qty: 1 on 07/03/2007 Hardware e.g. pins/screws /rods Tooth [employer] Description:Device Manufactu rer - [employer]. Body Location - Tooth 5. Device Status Text - [id number]. Screw Rst Curly Taper Rp 4.3x13.0 - Anne [id number] Implanted:Qty: 1 on 07/03/2007 Hardware e.g. pins/screws /rods Tooth [employer] Description:Device Manufactu rer - [employer]. Body Location - Tooth 5. Device Status Text - [id number]. Screw Nobrpl Curly Tap In Store Marketing Associate 3.5x11.5 - Anne [id number] Implanted:Qty: 1 on 03/03/2012 Hardware e.g. pins/screws /rods Tooth [employer] Description:Device Manufactu rer - [employer]. Body Location - Tooth 29. Device Status Text - [id number]. Abutment Nobrpl In Store Marketing Associate 3.5x5 - Anne [id number] Implanted:Qty: 1 on 03/03/2012 Hardware e.g. pins/screws /rods Tooth [employer] Description:Device Manufactu rer - [employer]. Body Location - Tooth 29. Device Status Text - [id number]. Abutment Nobrpl In Store Marketing Associate 3.5x3 - Anne [id number] Implanted:Qty: 1 on 08/23/2014 Hardware e.g. pins/screws /rods Tooth [employer] Description:Device Manufactu rer - [employer]. Body Location - Other. tooth- 28. Device Status Text - [id number]. Abutment Nobrpl In Store Marketing Associate 3.5x3 - Anne [id number] Implanted:Qty: 1 on 08/23/2014 Hardware e.g. pins/screws /rods Tooth [employer] Description:Device Manufactu rer - [employer]. Body Location - Other. tooth- 28. Device Status Text - [id number]. Screw Nobrpl Curly Taper In Store Marketing Associate 3.5x13.0 - Anne [id number] Implanted:Qty: 1 on 08/23/2014 Hardware e.g. pins/screws /rods Tooth [employer] Description:Device Manufactu rer - [employer]. Body Location - Other. tooth- 28. Device Status Text - [id number]. Screw Nobrpl Curly Taper Rp 4.3x10.0 - Anne [id number] Implanted:Qty: 1 on 08/10/2015 Hardware e.g. pins/screws /rods Tooth [employer] Description:Device Manufactu rer - [employer]. Body Location - Other. tooth- 20. Device Status Text - [id number]. Brane Fix Rst Tiunite Rp 4.3 X 13.0 - Anne [id number] Implanted:Qty: 1 on 08/10/2015 Hardware e.g. pins/screws /rods Tooth [employer] Description:Device Manufactu rer - [employer]. Body Location - Other. tooth- 21. Device Status Text - [id number]. Brane Fix Rst Tiunite Rp 4.3 X 13.0 - Anne [id number] Implanted:Qty: 1 on 08/10/2015 Hardware e.g. pins/screws /rods Tooth [employer] Description:Device Manufactu rer - [employer]. Body Location - Other. tooth- 13. Device Status Text - [id number]. Brane Fix Rst Tiunite Rp 4.3 X 13.0 - Anne [id number] Implanted:Qty: 1 on 08/10/2015 Hardware e.g. pins/screws /rods Tooth [employer] Description:Device Manufactu rer - [employer]. Body Location - Other. tooth- 11. Device Status Text - [id number]. Abutment Nobrpl Rp 4.3x3 - Anne [id number] Implanted:Qty: 1 on 02/08/2016 Hardware e.g. pins/screws /rods Tooth [employer] Description:Device Manufactu rer - [employer]. Body Location - Other. tooth- 20. Device Status Text - [id number]. Abutment Nobrpl Rp 5.3x3 - Anne [id number] Implanted:Qty: 1 on 02/08/2016 Hardware e.g. pins/screws /rods Tooth [employer] Description:Device Manufactu rer - [employer]. Body Location - Other. tooth- 13. Device Status Text - [id number]. Abutment Nobrpl Rp 4.3x3 - Anne [id number] Implanted:Qty: 1 on 02/08/2016 Hardware e.g. pins/screws /rods Tooth [employer] Description:Device Manufactu rer - [employer]. Body Location - Other. tooth- 21. Device Status Text - [id number]. Abutment Nobrpl Rp 4.3x3 - Anne [id number] Implanted:Qty: 1 on 02/08/2016 Hardware e.g. pins/screws /rods Tooth [employer] Description:Device Manufactu rer - [employer]. Body Location - Other. tooth- 11. Device Status Text - [id number]. Patch Dura-Guard 4x 4 - Anne [id number] Implanted:Qty: 1 on 08/19/1996 Mesh or Patch [employer] Description:Device Manufactu rer - [employer]. Device Status Text - [id number]. Allograft Bioxclude Chorion 1cm X 2.5cm - Anne [id number] Implanted:Qty: 1 on 01/15/2014 Mesh or Patch Tooth Unknown Description:Device Manufactu rer - Unknown. Body Location - tooth-28. Device Status Text - [id number]. Allograft Bioxclude Chorion 1cm X 2.5cm - Anne [id number] Implanted:Qty: 1 on 01/15/2014 Mesh or Patch Tooth Unknown Description:Device Manufactu rer - Unknown. Body Location - tooth-5. Device Status Text - [id number]. Allograft Bioxclude Chorion 1.5cm X 2cm - Anne [id number] Implanted:Qty: 1 on 08/10/2015 Mesh or Patch Other/Legacy - See Implant Description Unknown Description:Device Manufactu rer - Unknown. Body Location - Other. Left. Device Status Text - [id number]. Procedures Procedure Name Priority Date/Time Associated Diagnosis [...] Drug Therapy Thrombosis Deep Vein Personal History LIPID PANEL, S Routine 04/19/2023 7:39 AM [employer] Hyperlipidemia BASIC METABOLIC PANEL, S/P Routine 04/19/2023 7:39 AM [employer] Hypertension Essential Primary HCV AB SCRN W/REFLEX TO HCV PCR, S Routine 06/15/2016 9:01 AM [employer] COLONOSCOPY Routine 12/27/2014 US AORTA Routine 11/09/2014 8:30 AM CDT from Last 3 Months or Most Recently Relevant to Health Maintenance Results * INR Reflex, POCT, Blood (11/22/2023 8:01 AM CDT) Only the most recent of2 resultswithin the time period is included. INR Reflex, POCT, B 2.3 11/22/2023 8:01 AM CDT CNFL Comment: ----ADDITIONAL INFORMATION---- Standard intensity warfarin therapeutic range: 2.0 to 3.0 ?? High intensity warfarin therapeutic range: 2.5 to 3.5 Blood (Blood, Capillary) 11/22/2023 8:01 AM CDT 11/22/2023 8:01 AM CDT Stefan Salomon M.D. LAB POCT ORDERABLES - DEVICE Performing Organization Address City/State/[facility] Co de Phone Number [facility] [address] [place] [address], [place] [place] [address] * Lipid Panel (04/19/2023 7:39 AM [employer]) Triglycerides 113 mg/dL 04/19/2023 11:48 AM [employer] CNFL Comment: ----REFERENCE VALUE---- Normal: <150 mg/dL Borderline High: 150-199 mg/dL High: 200-499 mg/dL Very High: > or =500 mg/dL Cholesterol, Total 144 mg/dL 2022 11:48 AM [employer] CNFL Comment: ----REFERENCE VALUE---- Desirable: < 200 mg/dL Borderline High: 200 - 239 mg/dL High: > or = 240 mg/dL Cholesterol, LDL, Calculated 76 mg/dL 04/19/2023 12:10 PM [employer] CNFL Comment: ----REFERENCE VALUE---- Desirable: <100 mg/dL Above Desirable: 100-129 mg/dL Borderline High: 130-159 mg/dL High: 160-189 mg/dL Very High: >=190 mg/dL ----ADDITIONAL INFORMATION---- LDL cholesterol calculated using the Sosa/NIH equation. Cholesterol, HDL 48 >=40 mg/dL 04/19/20 12:10 PM [employer] CNFL Cholesterol, Non-HDL, Calculated 96 mg/dL 04/19/2023 12:10 PM [employer] [facility]FL Comment: ----REFERENCE VALUE---- Desirable: <130 mg/dL Above Desirable: 130-159 mg/dL Borderline High: 160-189 mg/dL High: 190-219 mg/dL Very High: > or =220 mg/dL Fasting (8 HR or more) No 04/19/2023 7:40 AM [employer] CNFL Blood (Blood, Venous) 04/19/2023 7:39 AM [employer] 04/19/2023 7:40 AM [employer] Stefan Salomno M.D. LAB BLOOD ADD-ON [facility] [address] [place] [address], [facility] CNFL [facility] [place] [address] * Basic Metabolic Panel (04/19/2023 7:39 AM [employer]) Potassium, P 4.1 3.6 - 5.2 mmol/L 04/19/2023 11:48 AM [employer] CNFL Sodium, P 138 135 - 145 mmol/L 04/19/2023 11:48 AM [employer] CNFL Chloride, P 102 98 - 107 mmol/L 04/19/2023 11:48 AM [employer] CNFL Bicarbonate, P 23 22 - 29 mmol/L 04/19/2023 11:48 AM [employer] CNFL Anion Gap, P 13 7 - 15 04/19/2023 11:48 AM [employer] CNFL BUN (Blood Urea Nitrogen), P 21 8 - 24 mg/dL 04/19/2023 11:48 AM [employer] CNFL Creatinine 0.87 0.74 - 1.35 mg/dL 04/19/2023 11:48 AM [employer] CNFL Estimated GFR (eGFR) >90 >=60 mL/min/BSA 04/19/2023 11:48 AM [employer] CNFL Comment: Estimated GFR calculated using the 2020 CKD_EPI creatinine equation. Calcium, Total, P 9.1 8.8 - 10.2 mg/dL 04/19/2023 11:48 AM [employer] CNFL Glucose, P 103 70 - 140 mg/dL 04/19/2023 11:48 AM [employer] CNFL Blood (Blood, Venous) 04/19/2023 7:39 AM [employer] 04/19/2023 7:40 AM [employer] Stefan Salomon M.D. LAB BLOOD ADD-ON Performing Organization Address City/[facility]/ZIP Co de Phone Number [facility] [address] [place] [id number], [facility] CNFL [facility] in [address] [address] * HCV Ab w/Reflex to HCV PCR, S (medicare) (06/15/2016 9:01 AM [employer]) HXHCV Ab [facility] Reactive Negative POWERCHART Comment: Supplemental testing for HCV RNA is ordered to rule out active HCV infection. Htoijj-ub-bxcrjg ratio is >=1.00 and <8.00. Test Performed by: [place] [address] Flute Teacher: Armando Chavez II, M.D., Ph.D. Blood 06/15/2016 9:01 AM [employer] Abraham Valle M.D. LAB MICROBIOLOGY - B [...] IMPRESSION: Normal abdominal aorta Sulaiman Ordaz Jr., CodieM.S. IMG US PROCEDURES from Last 3 Months or Most Recently Relevant to Health Maintenance Care Teams Creative Services Specialist Relationship Specialty Start Date End Date Stefan Salomon M.D. [id number] [phone] PCP - General Family Medicine 07/09/22 Anticoagulation Team 07/09/22
--- OUTSIDE RECORDS SUMMARY | 2023-12-24 08:09 | XMS_ITS | Clinical Summary ---
Author Organization [facility] Address [address] [place] [address] Care Team Providers Care Fermentation Operator Name Role Phone Stefan Salomon M.D. Primary Care Provider [phone] Source Comments Patient records contain information from all sites at [facility]. For routine questions regarding patient records, call [phone] during business hours, M-F 8:00 AM - 5:00 PM Central Time. Record requests for emergency care only can be directed to [phone] at any time.[facility] Allergies Active Allergy Reactions Criticality Noted Date Comments Atorvastatin Myalgia 02/08/2017 Leg Pain/Cramps Rbkpqbq-Zwj-Wsh Reductase Inhibitors Other (see comments) 09/10/2022 Medications [...] Generalized 11/18/2011 Overview (07/02/2017): Saw Neurologist at [facility] on 09/16/2009. MRI lumbar [...] Description 12/02/2023 Refill Department of Family Medicine, [facility], in [address] [phone] Stefan Salomon M.D. Med Refill 11/26/2023 8:00 AM CDT Anticoagulation Visit Department of Anticoagulation in [place] [address] [place] [address] Stefan Salomon M.D. Anticoagulant Therapy [Z79.01] (Primary Dx); Mutation Factor V Leiden Heterozygous (HCC); Monitoring For Therapeutic Drug Therapy [Z51.81]; Thrombosis Deep Vein Personal History 11/22/2023 7:56 AM CDT - 11/22/2023 11:59 PM CDT Hospital Encounter Department of Laboratory Medicine in [address] [phone] Stefan Salomon M.D. Anticoagulant Therapy [Z79.01]; Mutation Factor V Leiden Heterozygous (HCC); Monitoring For Therapeutic Drug Therapy [Z51.81]; Thrombosis Deep Vein Personal History Discharge Disposition: Home or Self Care 11/05/2023 Refill Department of Family Medicine, [facility], in [address] [phone] Stefan Salomon M.D. Med Refill 10/23/2023 1:20 PM CDT Office Visit Department of Dermatology in [place], [place] [address] [place] [phone] Indira Gold M.D. Keratosis Seborrheic Inflamed [L82.0] (Primary Dx); Pruritus; Keratosis Actinic; Dermatitis 10/15/2023 3:30 PM CDT Anticoagulation Visit Department of Anticoagulation in [place], [place] [address] [place] [address] Stefan Salomon M.D. Anticoagulant Therapy [Z79.01] (Primary Dx); Mutation Factor V Leiden Heterozygous (HCC); Monitoring For Therapeutic Drug Therapy [Z51.81]; Thrombosis Deep Vein Personal History 10/11/2023 7:16 AM CDT - 10/11/2023 11:59 PM CDT Hospital Encounter Department of Laboratory Medicine in [address] [address] Stefan Salomon M.D. Anticoagulant Therapy; Mutation Factor V Leiden Heterozygous (HCC); Monitoring For Therapeutic Drug Therapy; Thrombosis Deep Vein Personal History Discharge Disposition: Home or Self Care 10/10/2023 Refill Department of Family Medicine, [facility], in [address] [phone] Stefan Salomon M.D. Med Refill 09/24/2023 Refill Department of Family Medicine, [facility], in [address] [address] Stefan Salomon M.D. Med Refill from Last [...] How often do you attend confucianist or oriental orthodox serv ices? Never 07/09/2022 [...] Answer Date Recorded PHQ-2 Score 0 06/12/2023 [facility] of Occupat ional Health - Occupational Stress [...] file Gender Identity Male 07/02/2017 9:12 AM ANTISQUEAK WORKER Sexual Orientation Straight 07/02/2017 9: 12 AM ANTISQUEAK WORKER Last Filed Vital Signs Vital Sign Reading Time Taken Comments Blood Pressure 148/82 06/12/2023 4:23 PM ANTISQUEAK WORKER Pulse 63 06/12/2023 4:23 PM ANTISQUEAK WORKER Temperature 36.6 ??C (97.9 ??F) 06/12/2023 4:23 PM CS T Respiratory Rate 18 06/12/2023 4:23 PM ANTISQUEAK WORKER Oxygen Saturation 94% 06/12/2023 4:23 PM ANTISQUEAK WORKER Inhaled Oxygen Concentration - - Weight 95.6 kg (210 lb 12.2 oz) 06/12/2023 4:23 PM ANTISQUEAK WORKER Height 176.5 cm (5' 9.49) 08/01/2022 9:59 AM CS T Body Mass Index 30.69 08/01/2022 9:59 AM ANTISQUEAK WORKER Plan of Treatment Upcoming Encounters Date Type Department Care Team (Latest Contact Info) Description 01/03/2024 8:50 AM CDT Appointment Department of Laboratory Medicine in [address] [phone] Stefan Salomon M.D. [address] [place] [phone] 01/03/2024 9:30 AM CDT Anticoagulation Visit Department of Anticoagulation in [place] [address] [place] [address] Stefan Salomon M.D. [address] [place] [phone] Health Maintenance Due Date Last Done Comments CT Colonography 1948 Cologuard 1950 Zoster Vaccines (1 of 2) 1998 Colonoscopy 12/28/2019 12/27/2014 Colorectal Cancer Surveillance 12/28/2019 Visit: Medicare Annual Wellness 07/10/2023 Office Visit for Blood Press ure Check / Re-check 09/11/2023 06/12/2023 COVID-19 Vaccine (2022- 4 season) 2023 05/23/2023, 04/21/2022, 04/14/2021, Additional history exists Opioid Risk Tool (ORT) 12/10/2023 07/09/2022 PEG assessment for Opioid therapy 12/10/2023 024 Controlled Substance Monitoring 02/24/2024 3 Influenza Vaccine (#1) 2024 3, 04/19/2022, 04/20/2021, [...] Completed 06/12/2023 Medical Devices Implanted Type Area Primary Care Pediatrician Device Identifier Shelf Expiration Date Model / Serial / Lot Mineralized Cancellous Bone 2.0 - Anne [id number] Implanted:Qty: 1 on 08/10/2015 Bone or Tissue Tooth [facility] Description:Device Manufactu rer [facility]. Body Location - Other. tooth-13. Device Status Text - [id number]. Hardware E.G. Pins/Screws/Rk s Hardware e.g. pins/screws /rods Mouth Abutment Nobrpl Rp 4.3x5 - Anne [id number] Implanted:Qty: 1 on 07/03/2007 Hardware e.g. pins/screws /rods Tooth [employer] Description:Device Manufactu rer - [employer]. Body Location - Tooth 5. Device Status Text - [id number]. Screw Rst Curly Taper Rp 4.3x13.0 - Anne [id number] Implanted:Qty: 1 on 07/03/2007 Hardware e.g. pins/screws /rods Tooth [employer] Description:Device Manufactu rer - [employer]. Body Location - Tooth 5. Device Status Text - [id number]. Screw Nobrpl Curly Tap Java J2Ee Technical Lead 3.5x11.5 - Anne [id number] Implanted:Qty: 1 on 03/03/2012 Hardware e.g. pins/screws /rods Tooth [employer] Description:Device Manufactu rer - [employer]. Body Location - Tooth 29. Device Status Text - [id number]. Abutment Nobrpl Java J2Ee Technical Lead 3.5x5 - Anne [id number] Implanted:Qty: 1 on 03/03/2012 Hardware e.g. pins/screws /rods Tooth [employer] Description:Device Manufactu rer - [employer]. Body Location - Tooth 29. Device Status Text - [id number]. Abutment Nobrpl Java J2Ee Technical Lead 3.5x3 - Anne [id number] Implanted:Qty: 1 on 08/23/2014 Hardware e.g. pins/screws /rods Tooth [employer] Description:Device Manufactu rer - [employer]. Body Location - Other. tooth- 28. Device Status Text - [id number]. Abutment Nobrpl Java J2Ee Technical Lead 3.5x3 - Anne [id number] Implanted:Qty: 1 on 08/23/2014 Hardware e.g. pins/screws /rods Tooth [employer] Description:Device Manufactu rer - [employer]. Body Location - Other. tooth- 28. Device Status Text - [id number]. Screw Nobrpl Curly Taper Java J2Ee Technical Lead 3.5x13.0 - Anne [id number] Implanted:Qty: 1 on 08/23/2014 Hardware e.g. pins/screws /rods Tooth [employer] Description:Device Manufactu rer - [employer]. Body Location - Other. tooth- 28. Device Status Text - [id number]. Screw Nobrpl Curly Taper Rp 4.3x10.0 - Anne [id number] Implanted:Qty: 1 on 08/10/2015 Hardware e.g. pins/screws /rods Tooth [employer] Description:Device Manufactu rer - [employer]. Body Location - Other. tooth- 20. Device Status Text - [id number]. Brane Fix Rst Tiunite Rp 4.3 X 13.0 - Anne [id number] Implanted:Qty: 1 on 08/10/2015 Hardware e.g. pins/screws /rods Tooth [employer] Description:Device Manufactu rer - [employer]. Body Location - Other. tooth- 21. Device Status Text - [id number]. Brane Fix Rst Tiunite Rp 4.3 X 13.0 - Anne [id number] Implanted:Qty: 1 on 08/10/2015 Hardware e.g. pins/screws /rods Tooth [employer] Description:Device Manufactu rer - [employer]. Body Location - Other. tooth- 13. Device Status Text - [id number]. Brane Fix Rst Tiunite Rp 4.3 X 13.0 - Anne [id number] Implanted:Qty: 1 on 08/10/2015 Hardware e.g. pins/screws /rods Tooth [employer] Description:Device Manufactu rer - [employer]. Body Location - Other. tooth- 11. Device Status Text - [id number]. Abutment Nobrpl Rp 4.3x3 - Anne [id number] Implanted:Qty: 1 on 02/08/2016 Hardware e.g. pins/screws /rods Tooth [employer] Description:Device Manufactu rer - [employer]. Body Location - Other. tooth- 20. Device Status Text - [id number]. Abutment Nobrpl Rp 5.3x3 - Anne [id number] Implanted:Qty: 1 on 02/08/2016 Hardware e.g. pins/screws /rods Tooth [employer] Description:Device Manufactu rer - [employer]. Body Location - Other. tooth- 13. Device Status Text - [id number]. Abutment Nobrpl Rp 4.3x3 - Anne [id number] Implanted:Qty: 1 on 02/08/2016 Hardware e.g. pins/screws /rods Tooth [employer] Description:Device Manufactu rer - [employer]. Body Location - Other. tooth- 21. Device Status Text - [id number]. Abutment Nobrpl Rp 4.3x3 - Anne [id number] Implanted:Qty: 1 on 02/08/2016 Hardware e.g. pins/screws /rods Tooth [employer] Description:Device Manufactu rer - [employer]. Body Location - Other. tooth- 11. Device Status Text - [id number]. Patch Dura-Guard 4x 4 - Anne [id number] Implanted:Qty: 1 on 08/19/1996 Mesh or Patch [employer] Description:Device Manufactu rer - [employer]. Device Status Text - [id number]. Allograft Bioxclude Chorion 1cm X 2.5cm - Anne [id number] Implanted:Qty: 1 on 01/15/2014 Mesh or Patch Tooth Unknown Description:Device Manufactu rer - Unknown. Body Location - tooth-28. Device Status Text - [id number]. Allograft Bioxclude Chorion 1cm X 2.5cm - Anne [id number] Implanted:Qty: 1 on 01/15/2014 Mesh or Patch Tooth Unknown Description:Device Manufactu rer - Unknown. Body Location - tooth-5. Device Status Text - [id number]. Allograft Bioxclude Chorion 1.5cm X 2cm - Anne [id number] Implanted:Qty: 1 on 08/10/2015 Mesh or Patch Other/Legacy - See Implant Description Unknown Description:Device Manufactu rer - Unknown. Body Location - Other. Left. Device Status Text - [id number]. Procedures Procedure Name Priority Date/Time Associated Diagnosis [...] LIPID PANEL, S Routine 04/19/2023 7:39 AM ANTISQUEAK WORKER Hyperlipidemia BASIC METABOLIC PANEL, S/P Routine 04/19/2023 7:39 AM ANTISQUEAK WORKER Hypertension Essential Primary HCV AB SCRN W/REFLEX TO HCV PCR, S Routine 06/15/2016 9:01 AM ANTISQUEAK WORKER COLONOSCOPY Routine 12/27/2014 US AORTA Routine 11/09/2014 8:30 AM CDT from Last 3 Months or Most Recently Relevant to Health Maintenance Results * INR Reflex, POCT, Blood (11/22/2023 8:01 AM CDT) Only the most recent of2 resultswithin the time period is included. INR Reflex, POCT, B 2.3 11/22/2023 8:01 AM CDT [facility] Comment: ----ADDITIONAL INFORMATION---- Standard intensity warfarin therapeutic range: 2.0 to 3.0 ?? High intensity warfarin therapeutic range: 2.5 to 3.5 Blood (Blood, Capillary) 11/22/2023 8:01 AM CDT 11/22/2023 8:01 AM CDT Stefan Salomon M.D. LAB POCT ORDERABLES - DEVICE [facility] [address] [place] [address], [place] [facility] in [address] [address] * Lipid Panel (04/19/2023 7:39 AM ANTISQUEAK WORKER) Triglycerides 113 mg/dL 04/19/2023 11:48 AM ANTISQUEAK WORKER [facility]FL Comment: ----REFERENCE VALUE---- Normal: <150 mg/dL Borderline High: 150-199 mg/dL High: 200-499 mg/dL Very High: > or =500 mg/dL Cholesterol, Total 144 mg/dL 2022 11:48 AM ANTISQUEAK WORKER [facility] Comment: ----REFERENCE VALUE---- Desirable: < 200 mg/dL Borderline High: 200 - 239 mg/dL High: > or = 240 mg/dL Cholesterol, LDL, Calculated 76 mg/dL 04/19/2023 12:10 PM ANTISQUEAK WORKER [facility] Comment: ----REFERENCE VALUE---- Desirable: <100 mg/dL Above Desirable: 100-129 mg/dL Borderline High: 130-159 mg/dL High: 160-189 mg/dL Very High: >=190 mg/dL ----ADDITIONAL INFORMATION---- LDL cholesterol calculated using the Sosa/NIH equation. Cholesterol, HDL 48 >=40 mg/dL 04/19/20 12:10 PM ANTISQUEAK WORKER CNFL Cholesterol, Non-HDL, Calculated 96 mg/dL 04/19/2023 12:10 PM ANTISQUEAK WORKER [facility] Comment: ----REFERENCE VALUE---- Desirable: <130 mg/dL Above Desirable: 130-159 mg/dL Borderline High: 160-189 mg/dL High: 190-219 mg/dL Very High: > or =220 mg/dL Fasting (8 HR or more) No 04/19/2023 7:40 AM ANTISQUEAK WORKER CNFL Blood (Blood, Venous) 04/19/2023 7:39 AM ANTISQUEAK WORKER 04/19/2023 7:40 AM ANTISQUEAK WORKER Stefan Salomon M.D. LAB BLOOD ADD-ON [facility] [address] [place] [address], [facility] [place] [address] * Basic Metabolic Panel (04/19/2023 7:39 AM ANTISQUEAK WORKER) Pathologist [facility] Potassium, P 4.1 3.6 - 5.2 mmol/L 04/19/2023 11:48 AM ANTISQUEAK WORKER CNFL Sodium, P 138 135 - 145 mmol/L 04/19/2023 11:48 AM ANTISQUEAK WORKER CNFL Chloride, P 102 98 - 107 mmol/L 04/19/2023 11:48 AM ANTISQUEAK WORKER CNFL Bicarbonate, P 23 22 - 29 mmol/L 04/19/2023 11:48 AM ANTISQUEAK WORKER CNFL Anion Gap, P 13 7 - 15 04/19/2023 11:48 AM ANTISQUEAK WORKER CNFL BUN (Blood Urea Nitrogen), P 21 8 - 24 mg/dL 04/19/2023 11:48 AM ANTISQUEAK WORKER CNFL Creatinine 0.87 0.74 - 1.35 mg/dL 04/19/2023 11:48 AM ANTISQUEAK WORKER CNFL Estimated GFR (eGFR) >90 >=60 mL/min/BSA 04/19/2023 11:48 AM ANTISQUEAK WORKER [facility] Comment: Estimated GFR calculated using the 2020 CKD_EPI creatinine equation. Calcium, Total, P 9.1 8.8 - 10.2 mg/dL 04/19/2023 11:48 AM ANTISQUEAK WORKER CNFL Glucose, P 103 70 - 140 mg/dL 04/19/2023 11:48 AM ANTISQUEAK WORKER CNFL Blood (Blood, Venous) 04/19/2023 7:39 AM ANTISQUEAK WORKER 04/19/2023 7:40 AM ANTISQUEAK WORKER Stefan Salomon M.D. LAB BLOOD ADD-ON [facility] [address] [place] [address], [facility] [place] [address] * HCV Ab w/Reflex to HCV PCR, S (medicare) (06/15/2016 9:01 AM ANTISQUEAK WORKER) HXHCV Ab [facility] Reactive Negative POWERCHART Comment: Supplemental testing for HCV RNA is ordered to rule out active HCV infection. Iyfztr-ox-cvzeef ratio is >=1.00 and <8.00. Test Performed by: [facility] - [address] [address] Herd Tester: Armando Chavez II, M.D., Ph.D. Blood 06/15/2016 9:01 AM ANTISQUEAK WORKER Abraham Valle M.D. LAB MICROBIOLOGY - B [...] unremarkable. Procedure Note Kike Davidson D.O. / Desiree Ruelas M.D. - 10/10/2016 EXAM: AAA Screening Welcome Medicare INDICATION: Welcome to Medicare, tobacco use, HTN COMPARISON: None. FINDINGS: No evidence for abdominal aortic aneurysm. Maximum luminal diameter 2.2 CM. Iliac arteries are unremarkable. IMPRESSION: Normal abdominal aorta Sulaiman Ordaz Jr. REmilia.M.S. IMG US PROCEDURES from Last 3 Months or Most Recently Relevant to Health Maintenance Care Teams Fermentation Operator Relationship Specialty Start Date End Date Stefan Salomon M.D. [address] [place] [phone] PCP - General Family Medicine 07/09/22 Anticoagulation Team 07/09/22
--- OUTSIDE RECORDS SUMMARY | 2023-12-24 08:09 | XMS_ITS ---
Author Organization [facility] Address [address] [place] [address] Care Team Providers Care Oil Gas And Pipe Tester Name Role Phone Unavailable Unavailable Unavailable Surgery Details Not on file Complications Check Surgery Details section. Procedure Estimated Blood Loss Check Surgery Details section. Procedure Findings Check Surgery Details section. Procedure Specimens Taken Check Surgery Details section.
--- OUTSIDE RECORDS SUMMARY | 2023-12-24 08:09 | XMS_ITS | Encounter Summary ---
Author Organization [facility] Address [address] [place] [address] Care Team Providers Care Stain Dipper Name Role Phone Stefan Salomon M.D. Primary Care Provider [phone] Encounter Details Date Type Department Care Team (Latest Contact Info) Description 10/11/2023 7:16 AM CDT - 10/11/2023 11:59 PM CDT Hospital Encounter Department of Laboratory Medicine in [address] [phone] Stefan Salomon M.D. [address] [place] [phone] Anticoagulant Therapy; Mutation Factor V Leiden Heterozygous [...] How often do you attend sabianism or congregation serv ices? 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 [address] [place] [phone] 01/03/2024 9:30 AM CDT Anticoagulation Visit Department of Anticoagulation in [place], [place] [address] [place] [address] Stefan Salomon M.D. [address] [place] [phone] documented as of this encounter Procedures [...] POCT ORDERABLES - DEVICE [facility] [address] [place] [address], [place] CN[facility] in [address] [address] documented in this encounter Visit Diagnoses Diagnosis Anticoagulant Therapy Mutation Factor V Leiden Heterozygous (HCC) Monitoring For Therapeutic Drug Therapy Thrombosis Deep Vein Personal History documented in this encounter Additional Health Concerns Assessment Noted Time PHQ-9 Depression Total Score: 1 06/12/19 24 4:14 PM WHEAT COMBINE DRIVER documented as of this encounter Care Teams Stain Dipper Relationship Specialty Start Date End Date Stefan Salomon M.D. [address] [place] [phone] PCP - General Family Medicine 07/09/22 Anticoagulation Team 07/09/22 documented as of this encounter
--- OUTSIDE RECORDS SUMMARY | 2023-12-24 08:09 | XMS_ITS | Encounter Summary ---
Author Organization [facility] Address [address] [place] [address] Care Team Providers Care Inventory Administrator Name Role Phone Stefan Salomon M.D. Primary Care Provider [phone] Reason for Visit * Reason Comments Med Refill Encounter Details Date Type Department Care Team (Late st Contact Info) Description 12/02/2023 Refill Department of Family Medicine, [facility], in [address] [phone] Stefan Salomon M.D. [address] [place] [phone] Med Refill Social History Tobacco Use [...] How often do you attend samaritan or jewish serv ices? Never 07/09/2022 Do [...] file Gender Identity Male 07/02/2017 9:12 AM CRM MANAGER Sexual Orientation Straight 07/02/2017 9: 12 AM CRM MANAGER documented as of this encounter Miscellaneous [...] CDT Appointment Department of Laboratory Medicine in [address] [phone] Stefan Salomon M.D. [address] [place] [phone] 01/03/2024 9:30 AM CDT Anticoagulation Visit Department of Anticoagulation in [place], [place] [address] [place] [address] Stefan Salomon M.D. [address] [place] [phone] documented as of this encounter Visit Diagnoses Diagnosis Chronic Pain Syndrome Degeneration Disc Cervical Polyarthralgia documented in this encounter Additional Health Concerns Assessment Noted Time PHQ-9 Depression Total Score: 1 06/12/19 24 4:14 PM CRM MANAGER documented as of this encounter Care Teams Inventory Administrator Relationship Specialty Start Date End Date Stefan Salomon M.D. [address] [place] [phone] PCP - General Family Medicine 07/09/22 Anticoagulation Team 07/09/22 documented as of this encounter
--- OUTSIDE RECORDS SUMMARY | 2023-12-24 08:09 | XMS_ITS | Encounter Summary ---
Author Organization [facility] Address [address] [place] [address] Care Team Providers Care Ballistics Laboratory Gunsmith Name Role Phone Stefan Salomon M.D. Primary Care Provider [phone] Reason for Referral * Outpatient (Routine) - Authorized Specialty Diagnoses / Procedures Referred By Piero t Referred To Contact Family Medicine Kolton Soriano P.A.-C., P.A. [address] [place] [phone] [facility] Region Referral ID Status Reason Start Date Expiration Date V isits Requested Visits Authorized [id number] Authorized 10/10/2023 04/10/2025 1 1 Scheduling Instructions 6 month follow up Reason for Visit * Reason Comments Med Refill Encounter Details Date Type Department Care Team (Late st Contact Info) Description 10/10/2023 Refill Department of Family Medicine, [facility], in [address] [phone] Stefan Salomon M.D. [address] [place] [phone] Med Refill Social History Tobacco Use Types [...] How often do you attend temple or advent serv ices? Never 07/09/2022 Do [...] Answer Date Recorded PHQ-2 Score 0 06/12/2023 [facility] - Occupational [...] file Gender Identity Male 07/02/2017 9:12 AM PATHOLOGY COLLECTOR Sexual Orientation Straight 07/02/2017 9: 12 AM PATHOLOGY COLLECTOR documented as of this encounter Miscellaneous Notes [...] CDT Appointment Department of Laboratory Medicine in [address] [phone] Stefan Salomon M.D. [address] [place] [phone] 01/03/2024 9:30 AM CDT Anticoagulation Visit Department of Anticoagulation in [address] [phone] Stefan Salomon M.D. [address] [place] [phone] Scheduled Referrals Name Type Priority Associated Diagnoses Orde r Schedule Family Medicine office visit (clinic) Outpatient Referral Routine Expected: 12/11/2023 (Approximate), Expires: 01/09/2025 documented as of this encounter Visit Diagnoses Diagnosis Chronic Pain Syndrome Degeneration Disc Cervical Polyarthralgia documented in this encounter Additional Health Concerns Assessment Noted Time PHQ-9 Depression Total Score: 1 06/12/19 24 4:14 PM PATHOLOGY COLLECTOR documented as of this encounter Care Teams Ballistics Laboratory Gunsmith Relationship Specialty Start Date End Date Stefan Salomon M.D. [address] [phone] PCP - General Family Medicine 07/09/22 Anticoagulation Team 07/09/22 documented as of this encounter
--- OUTSIDE RECORDS SUMMARY | 2023-12-24 08:09 | XMS_ITS | Encounter Summary ---
Author Organization [facility] Address [address] [place] [address] Care Team Providers Care Liner Reroll Tender Name Role Phone Stefan Salomon M.D. Primary Care Provider [phone] Reason for Visit * Reason Comments Med Refill Encounter Details Date Type Department Care Team (Late st Contact Info) Description 11/05/2023 Refill Department of Family Medicine, [facility], in [address] [phone] Stefan Salomon M.D. [address] [place] [phone] Med Refill Social History Tobacco Use [...] How often do you attend protestant or oriental orthodox serv ices? Never 07/09/2022 [...] Answer Date Recorded PHQ-2 Score 0 06/12/2023 [facility] of Occupat ional Health - [...] file Gender Identity Male 07/02/2017 9:12 AM ONLINE MERCHANT Sexual Orientation Straight 07/02/2017 9: 12 AM ONLINE MERCHANT documented as of this encounter Miscellaneous Notes [...] Appointment Department of Laboratory Medicine in [address] [phone] Stefan Salomon M.D. [address] [place] [phone] 01/03/2024 9:30 AM CDT Anticoagulation Visit Department of Anticoagulation in [place], [place] [address] [place] [address] Stefan Salomon M.D. [address] [place] [phone] documented as of this encounter Visit Diagnoses Diagnosis Chronic Pain Syndrome Degeneration Disc Cervical Polyarthralgia documented in this encounter Additional Health Concerns Assessment Noted Time PHQ-9 Depression Total Score: 1 06/12/19 24 4:14 PM ONLINE MERCHANT documented as of this encounter Care Teams Liner Reroll Tender Relationship Specialty Start Date End Date Stefan Salomon M.D. [address] [place] [phone] PCP - General Family Medicine 07/09/22 Anticoagulation Team 07/09/22 documented as of this encounter
--- OUTSIDE RECORDS SUMMARY | 2023-12-24 08:09 | XMS_ITS | Encounter Summary ---
Author Organization [facility] Address [address] [place] [address] Care Team Providers Care Membership Coordinator Name Role Phone Stefan Salomon M.D. Primary Care Provider [phone] Reason for Visit * Outpatient (Routine) - Closed Specialty Diagnoses / Procedures Referred By Piero self Referred To Contact Dermatology Diagnoses Pruritus Crystal Quintero M.D. [address] [place] [phone] [facility] Referral ID Status Reason Start Date Expiration Date Visits Re quested Visits Authorized [id number] Closed 07/25/2023 01/23/2025 1 1 Encounter Details Date Type Department Care Team (Late st Contact Info) Description 10/23/2023 1:20 PM CDT Office Visit Department of Dermatology in [place], [place] [address] [place] [phone] Indira Gold M.D. [address] [place] [phone] Keratosis Seborrheic Inflamed [L82.0] (Primary Dx); [...] How often do you attend hoahaoism or hinduism serv ices? Never 07/09/2022 Do [...] Answer Date Recorded PHQ-2 Score 0 06/12/2023 [facility] [...] Gender Identity Male 07/02/2017 9:12 AM WATER TESTER Sexual Orientation Straight 07/02/2017 9: 12 AM WATER TESTER documented as of this encounter Progress Notes * Indira Gold M.D. - 10/23/2023 1:20 PM CDT Dermatology Note - Established Patient Correspondence to: Dr. Gold The patient has been seen and examined with Eileen Nash M.D.. SUBJECTIVE CHIEF COMPLAINT Follow up stasis dermatitis HISTORY OF PRESENT ILLNESS Wesley Bautista is a 72 y.o. male, who presents to [facility] on 10/23/23 for the above chief complaint. He was last seen by [facility] on 07/25/2023 at which time he [...] Appointment Department of Laboratory Medicine in [address] [phone] Stefan Salomon M.D. [address] [place] [phone] 01/03/2024 9:30 AM CDT Anticoagulation Visit Department of Anticoagulation in [place] [address] [address] [place] [address] Stefan Salomon M.D. [address] [place] [phone] documented as of this encounter Visit Diagnoses Diagnosis Keratosis Seborrheic Inflamed [L82.0]- Primary Pruritus Keratosis Actinic Dermatitis documented in this encounter Additional Health Concerns Assessment Noted Time PHQ-9 Depression Total Score: 1 06/12/19 24 4:14 PM WATER TESTER documented as of this encounter Care Teams Membership Coordinator Relationship Specialty Start Date End Date Stefan Salomon M.D. [address] [place] [phone] PCP - General Family Medicine 07/09/22 Anticoagulation Team 07/09/22 documented as of this encounter
--- OUTSIDE RECORDS SUMMARY | 2023-12-24 08:10 | XMS_ITS | Encounter Summary ---
Author Organization [facility] Address [address] [place] [address] Care Team Providers Care Permaculture Contractor Name Role Phone Stefan Salomon M.D. Primary Care Provider [phone] Reason for Visit * Reason Comments Med Refill Encounter Details Date Type Department Care Team (Late st Contact Info) Description 09/24/2023 Refill Department of Family Medicine, [facility], in [address] [phone] Stefan Salomon M.D. [address] [place] [phone] Med Refill Social History Tobacco Use [...] How often do you attend advent or episcopalian serv ices? Never 07/09/2022 Do [...] Answer Date Recorded PHQ-2 Score 0 06/12/2023 [facility] of Occupat [...] file Gender Identity Male 07/02/2017 9:12 AM UNEMPLOYMENT BENEFITS CLAIMS TAKER Sexual Orientation Straight 07/02/2017 9: 12 AM UNEMPLOYMENT BENEFITS CLAIMS TAKER documented as of this encounter Miscellaneous Notes [...] CDT Appointment Department of Laboratory Medicine in [address] [phone] Stefan Salomon M.D. [address] [place] [phone] 01/03/2024 9:30 AM CDT Anticoagulation Visit Department of Anticoagulation in [place], [place] [address] [place] [address] Stefan Salomon M.D. [address] [place] [phone] documented as of this encounter Visit Diagnoses Diagnosis Anticoagulant Therapy Mutation Factor V Leiden Heterozygous (HCC) Monitoring For Therapeutic Drug Therapy Thrombosis Deep Vein Personal History documented in this encounter Additional Health Concerns Assessment Noted Time PHQ-9 Depression Total Score: 1 06/12/19 24 4:14 PM UNEMPLOYMENT BENEFITS CLAIMS TAKER documented as of this encounter Care Teams Permaculture Contractor Relationship Specialty Start Date End Date Stefan Salomon M.D. [address] [place] [phone] PCP - General Family Medicine 07/09/22 Anticoagulation Team 07/09/22 documented as of this encounter
--- OUTSIDE RECORDS SUMMARY | 2023-12-24 08:10 | XMS_ITS | Encounter Summary ---
Author Organization [facility] Address [address] [place] [address] Care Team Providers Care Video Tape Editor Name Role Phone Stefan Salomon M.D. Primary Care Provider [phone] Reason for Visit * Outpatient (Routine) - Authorized Specialty Diagnoses / Procedures Referred By Contdayana t Referred To Contact Anticoagulation Diagnoses Anticoagulant Therapy Mutation Factor V Leiden Heterozygous (HCC) Monitoring For Therapeutic Drug Therapy Thrombosis Deep Vein Personal History Stefan Salomon M.D. [address] [phone] [facility] Referral ID Status Reason Start Date Expiration Date V isits Requested Visits Authorized [id number] Authorized 02/01/2023 01/31/2026 300 300 Encounter Details Date Type Department Care Team (Latest Contact Info) Description 09/20/2023 11:00 AM CDT Anticoagulation Visit Department of Anticoagulation in [place], [place] [address] [place] [address] Stefan Salomon M.D. [address] [phone] Thrombosis Deep Vein Personal History [...] week 07/09/2022 How often do you attend orthodox or shinto serv ices? Never 07/09/2022 Do you belong to any clubs o r organizations such as orthodox groups, unions, fraternal or athletic groups, [...] Date Recorded PHQ-2 Score 0 06/12/2023 [facility] of Occupat ional Health - Occupational Stress [...] file Gender Identity Male 07/02/2017 9:12 AM BILLING REP Sexual Orientation Straight 07/02/2017 9: 12 AM BILLING REP documented as of this encounter Patient Instructions [...] please call Primary Care Anticoagulation Program at [phone] from 7:30 am to 4:30 pm. Saturday-Saturday [...] if you start any herbal or other [id number] product (check with your doctor, a nurse, [...] consult required. Consulted Anticoagulation [facility] for plan. Currently bridging: no. INR is therapeutic/supratherapeutic. Additional dosing or follow-up information: Provider consulted: Essie Harris- Anticoagulation [facility] Pt is on injectable anticoagulant: [...] CDT Appointment Department of Laboratory Medicine in [address] [phone] Stefan Salomon M.D. [address] [place] [phone] 01/03/2024 9:30 AM CDT Anticoagulation Visit Department of Anticoagulation in [place], [place] [address] [place] [address] Stefan Salomon M.D. [address] [place] [phone] documented as of this encounter Results * INR Reflex, POCT, Blood (10/11/2023 7:25 AM CDT) INR Reflex, POCT, B 2.5 10/11/2023 7:25 AM CDT [facility] Comment: ----ADDITIONAL INFORMATION---- Standard intensity warfarin therapeutic range: 2.0 to 3.0 ?? High intensity warfarin therapeutic range: 2.5 to 3.5 Blood (Blood, Capillary) 10/11/2023 7:25 AM CDT 10/11/2023 7:25 AM CDT Stefan Salomon M.D. LAB POCT ORDERABLES - DEVICE Performing Organization Address City/State/[facility] Co de Phone Number [facility] [address] [place] [phone], [facility] CNFL [facility] in [address] [address] documented in this encounter Visit Diagnoses Diagnosis Thrombosis Deep Vein Personal History- Primary Anticoagulant Therapy Mutation Factor V Leiden Heterozygous (HCC) Monitoring For Therapeutic Drug Therapy Hypertension Essential Primary documented in this encounter Additional Health Concerns Assessment Noted Time PHQ-9 Depression Total Score: 1 06/12/19 24 4:14 PM BILLING REP documented as of this encounter Care Teams Video Tape Editor Relationship Specialty Start Date End Date Stefan Salomon M.D. [address] [place] [phone] PCP - General Family Medicine 07/09/22 Anticoagulation Team 07/09/22 documented as of this encounter
--- OUTSIDE RECORDS SUMMARY | 2023-12-24 08:10 | XMS_ITS | Encounter Summary ---
Author Organization [facility] Address [address] [place] [address] Care Team Providers Care Crisis Worker Name Role Phone Stefan Salomon M.D. Primary Care Provider [phone] Encounter Details Date Type Department Care Team (Latest Contact Info) Description 09/20/2023 7:10 AM CDT - 09/20/2023 11:59 PM CDT Hospital Encounter Department of Laboratory Medicine in [address] [phone] Stefan Salomon M.D. [address] [place] [phone] Anticoagulant Therapy; Mutation Factor V Leiden Heterozygous [...] How often do you attend sabianist or christian serv ices? Never 07/09/2022 Do [...] Answer Date Recorded PHQ-2 Score 0 06/12/2023 [facility] of Occupat ional [...] file Gender Identity Male 07/02/2017 9:12 AM SPREADER OPERATOR Sexual Orientation Straight 07/02/2017 9: 12 AM SPREADER OPERATOR documented as of this encounter Medications [...] Appointment Department of Laboratory Medicine in [address] [phone] Stefan Salomon M.D. [address] [place] [phone] 01/03/2024 9:30 AM CDT Anticoagulation Visit Department of Anticoagulation in [place], [place] [address] [place] [address] Stefan Salomon M.D. [address] [place] [phone] documented as of this encounter Procedures Procedure Name Priority Date/Time Associated Diagnosis Comments INR REFLEX, POCT, B Routine 09/20/2023 7 :20 AM CDT documented in this encounter Results * INR Reflex, POCT, Blood (09/20/2023 7:20 AM CDT) INR Reflex, POCT, B 2.3 09/20/2023 7:20 AM CDT [facility] Comment: ----ADDITIONAL INFORMATION---- Standard intensity warfarin therapeutic range: 2.0 to 3.0 ?? High intensity warfarin therapeutic range: 2.5 to 3.5 Blood 09/20/2023 7:20 AM CDT 09/20/2023 7:32 AM CDT Generic [facility] LAB POCT ORDERABLES - DEVICE Performing Organization Address City/State/[facility] Co de Phone Number [facility] [address] [place] [phone], [facility] CNChildren's [place] in [address] [address] documented in this encounter Visit Diagnoses Diagnosis Anticoagulant Therapy Mutation Factor V Leiden Heterozygous (HCC) Monitoring For Therapeutic Drug Therapy Thrombosis Deep Vein Personal History documented in this encounter Additional Health Concerns Assessment Noted Time PHQ-9 Depression Total Score: 1 06/12/19 24 4:14 PM SPREADER OPERATOR documented as of this encounter Care Teams Crisis Worker Relationship Specialty Start Date End Date Stefan Salomon M.D. [address] [place] [address] [place] [phone] PCP - General Family Medicine 07/09/22 Anticoagulation Team 07/09/22 documented as of this encounter
== END 2023-12-24 08:06 | disposition home or self-care (01) ==
LOC: WOUND 08:05
PROVIDERS: PCP Student in an Organized Health Care Education/Training Program; Visit Provider Nurse Practitioner Family
DX: I87.312 Chronic venous hypertension (idiopathic) with ulcer of left lower extremity (principal); I87.2 Venous insufficiency (chronic) (peripheral); I89.0 Lymphedema, not elsewhere classified; L97.322 Non-pressure chronic ulcer of left ankle with fat layer exposed
CPT/HCPCS: 11042

== ENCOUNTER 2024-01-07 08:08 | Outpatient (CLI) | payer MEDICARE, BC, SELFPAY ==
--- OUTSIDE RECORDS SUMMARY | 2024-01-07 08:10 | XMS_ITS | Clinical Summary ---
Author Organization [facility] Address [place], [place] [address] Care Team Providers Care Lead Supply Worker Name Role Phone Yue Alonso Thomasmedhat [facility] Primary Care Provider Allergies Active Allergy Reactions [...] extremity 07/13/2016 Overview: Overview: [facility] Comments Blood Pressure 117/67 05/13/2021 2:55 PM VAT SKIMMER Pulse 103 05/13/2021 2:55 PM VAT SKIMMER Temperature 36.9 ??C (98.4 ??F) 05/13/2021 2:55 PM CS T Respiratory Rate 18 05/13/2021 2:55 PM VAT SKIMMER Oxygen Saturation 99% 05/13/2021 2:55 PM VAT SKIMMER Inhaled Oxygen Concentration - - Weight 97.8 kg (215 lb 9.8 oz) 07/04/2022 11:35 AM VAT SKIMMER Height 175.7 cm (5' 9.17) 07/04/2022 11:[address] Body Mass Index 31.68 07/04/2022 11:35 AM VAT SKIMMER Plan of Treatment Health Maintenance Due Date [...] 8:51 AM 12/27/2014 12:46 PM Care Teams Lead Supply Worker Relationship Specialty Start Date End Date Yue Alonso MBBS [address] [place] [address] [place] [address] PCP - General Family Practice 06/26/22
--- OUTSIDE RECORDS SUMMARY | 2024-01-07 08:11 | XMS_ITS | Encounter Summary ---
Author Organization [facility] Address [address] [place] [address] Care Team Providers Care Allergist/Immunologist Name Role Phone Stefan Salomon M.D. Primary Care Provider [phone] Reason for Visit * Reason Comments Med Refill Encounter Details Date Type Department Care Team (Late st Contact Info) Description 11/05/2023 Refill Department of Family Medicine, [facility], in [address] [phone] Stefan Salomon M.D. [address] [place] [phone] Med Refill Social History Tobacco Use [...] How often do you attend methodist or orthodox serv ices? Never 07/09/2022 Do you [...] Answer Date Recorded PHQ-2 Score 0 06/12/2023 [facility] of Occupat ional Health [...] file Gender Identity Male 07/02/2017 9:12 AM INSERTER OPERATOR Sexual Orientation Straight 07/02/2017 9: 12 AM INSERTER OPERATOR documented as of this encounter Miscellaneous [...] Department Care Team (Latest Contact Info) Description 02/14/2024 8:50 AM CDT Appointment Department of Laboratory Medicine in [address] [phone] Stefan Salomon M.D. [address] [place] [phone] 02/14/2024 9:30 AM CDT Anticoagulation Visit Department of Anticoagulation in [place], [place] [address] [place] [address] Stefan Salomon M.D. [address] [place] [phone] documented as of this encounter Visit Diagnoses Diagnosis Chronic Pain Syndrome Degeneration Disc Cervical Polyarthralgia documented in this encounter Additional Health Concerns Assessment Noted Time PHQ-9 Depression Total Score: 1 06/12/19 24 4:14 PM INSERTER OPERATOR documented as of this encounter Care Teams Allergist/Immunologist Relationship Specialty Start Date End Date Stefan Salomon M.D. [address] [place] [phone] PCP - General Family Medicine 07/09/22 Anticoagulation Team 07/09/22 documented as of this encounter
--- OUTSIDE RECORDS SUMMARY | 2024-01-07 08:11 | XMS_ITS | Encounter Summary ---
Author Organization [facility] Address [address] [place] [address] Care Team Providers Care Firebreak Cutter Name Role Phone Stefan Salomon M.D. Primary Care Provider [phone] Reason for Visit * Outpatient (Routine) - Closed Specialty Diagnoses / Procedures Referred By Piero self Referred To Contact Dermatology Diagnoses Pruritus Crystal Quintero M.D. [address] [place] [phone] [facility] Referral ID Status Reason Start Date Expiration Date Visits Re quested Visits Authorized [id number] Closed 07/25/2023 01/23/2025 1 1 Encounter Details Date Type Department Care Team (Late st Contact Info) Description 10/23/2023 1:20 PM CDT Office Visit Department of Dermatology in [place], [place] [address] [place] [phone] Indira Gold M.D. [address] [place] [phone] Keratosis Seborrheic Inflamed [L82.0] (Primary Dx); [...] How often do you attend taoism or adventism serv ices? Never 07/09/2022 Do [...] Answer Date Recorded PHQ-2 Score 0 06/12/2023 [facility] - [...] file Gender Identity Male 07/02/2017 9:12 AM LIBRARY CLERK TALKING BOOKS Sexual Orientation Straight 07/02/2017 9: 12 AM LIBRARY CLERK TALKING BOOKS documented as of this encounter Progress Notes * Indira Gold M.D. - 10/23/2023 1:20 PM CDT Dermatology Note - Established Patient Correspondence to: Dr. Gold The patient has been seen and examined with Eileen Nash M.D.. SUBJECTIVE CHIEF COMPLAINT Follow up stasis dermatitis HISTORY OF PRESENT ILLNESS Wesley Bautista is a 72 y.o. male, who presents to [facility] on 10/23/23 for the above chief complaint. He was last seen by [facility] on 07/25/2023 at which time he [...] Appointment Department of Laboratory Medicine in [address] [phone] Stefan Salomon M.D. [address] [place] [phone] 02/14/2024 9:30 AM CDT Anticoagulation Visit Department of Anticoagulation in [place] [address] [address] [place] [address] Stefan Salomon M.D. [address] [place] [phone] documented as of this encounter Visit Diagnoses Diagnosis Keratosis Seborrheic Inflamed [L82.0]- Primary Pruritus Keratosis Actinic Dermatitis documented in this encounter Additional Health Concerns Assessment Noted Time PHQ-9 Depression Total Score: 1 06/12/19 24 4:14 PM LIBRARY CLERK TALKING BOOKS documented as of this encounter Care Teams Firebreak Cutter Relationship Specialty Start Date End Date Stefan Salomon M.D. [address] [place] [phone] PCP - General Family Medicine 07/09/22 Anticoagulation Team 07/09/22 documented as of this encounter
--- OUTSIDE RECORDS SUMMARY | 2024-01-07 08:11 | XMS_ITS ---
Author Organization [facility] Address [address] [place] [address] Care Team Providers Care Pharmacy Student Name Role Phone Unavailable Unavailable Unavailable Surgery Details Not on file Complications Check Surgery Details section. Procedure Estimated Blood Loss Check Surgery Details section. Procedure Findings Check Surgery Details section. Procedure Specimens Taken Check Surgery Details section.
--- OUTSIDE RECORDS SUMMARY | 2024-01-07 08:11 | XMS_ITS | Encounter Summary ---
Author Organization [facility] Address [address] [place] [address] Care Team Providers Care Cnc Wood Lathe Operator Name Role Phone Stefan Salomon M.D. Primary Care Provider [phone] Encounter Details Date Type Department Care Team (Latest Contact Info) Description 01/03/2024 7:11 AM CDT - 01/03/2024 11:59 PM CDT Hospital Encounter Department of Laboratory Medicine in [address] [phone] Stefan Salomon M.D. [address] [place] [phone] Anticoagulant Therapy [Z79.01]; Mutation Factor V Leiden [...] How often do you attend confucianist or cheondoism serv ices? Never 07/09/2022 Do [...] Answer Date Recorded PHQ-2 Score 0 06/12/2023 [facility] - Occupational Stress Questionnaire Answer [...] file Gender Identity Male 07/02/2017 9:12 AM AGRICULTURAL SERVICES DIRECTOR Sexual Orientation Straight 07/02/2017 9: 12 AM AGRICULTURAL SERVICES DIRECTOR documented as of this encounter Medications [...] 40 g 07/27/2022 gabapentin (NEURONTIN) 300 mg capsuleIndications:I nsufficiency Venous,Chronic Pain Syndrome,Pain Limb Generalized,Pain Leg Bilateral,Pseudogout Take 2 capsules (600 mg total) by [...] to report time 4000 mL 08/01/2022 traMADoL (Ultram) 50 mg tabletIndications:Ch ronic Pain/Nonacute Pain Take 1-2 tablets (50-100 mg total) by mouth every 6 (six) hours as needed for pain Indications: Chronic Pain/Nonacute Pain. for pain 240 tablet 12/09/2023 triamcinolone (KENALOG) 0.1 % creamIndications:Pru ritus Apply 1 Application topically 2 (two) times a day as needed (Rash). Apply to itchy spots on the back up to twice per day. 240 g 3 07/25/2023 warfarin (JANTOVEN) 5 mg tabletIndications:An ticoagulant Therapy,Mutation Factor V Leiden Heterozygous (HCC),Monitoring For Therapeutic Drug Therapy,Thrombosis Deep Vein Personal History Please take as directed by your Anticoagulation Clinic. 118 tablet 3 09/24/2023 documented as of this encounter Plan of Treatment Upcoming Encounters Date Type Department Care Team (Latest Contact Info) Description 02/14/2024 8:50 AM CDT Appointment Department of Laboratory Medicine in [address] [phone] Stefan Salomon M.D. [address] [place] [phone] 02/14/2024 9:30 AM CDT Anticoagulation Visit Department of Anticoagulation in [place], [place] [address] [place] [address] Stefan Salomon M.D. [address] [place] [phone] documented as of this encounter Procedures Procedure Name Priority Date/Time Associated Diagnosis Comments INR REFLEX, POCT, B Routine 01/03/2024 7 :17 AM CDT documented in this encounter Results * INR Reflex, POCT, Blood (01/03/2024 7:17 AM CDT) INR Reflex, POCT, B 2.0 01/03/2024 7:17 AM CDT [facility] Comment: ----ADDITIONAL INFORMATION---- Standard intensity warfarin therapeutic range: 2.0 to 3.0 ?? High intensity warfarin therapeutic range: 2.5 to 3.5 Blood 01/03/2024 7:17 AM CDT 01/03/2024 7:19 AM CDT Generic [facility] LAB POCT ORDERABLES - DEVICE [facility] [address] [place] [address], [facility] in [address] [address] documented in this encounter Visit Diagnoses Diagnosis Anticoagulant Therapy [Z79.01] Mutation Factor V Leiden Heterozygous (HCC) Monitoring For Therapeutic Drug Therapy [Z51.81] Thrombosis Deep Vein Personal History documented in this encounter Additional Health Concerns Assessment Noted Time PHQ-9 Depression Total Score: 1 06/12/19 24 4:14 PM AGRICULTURAL SERVICES DIRECTOR documented as of this encounter Care Teams Cnc Wood Lathe Operator Relationship Specialty Start Date End Date Stefan Salomon M.D. [address] [phone] PCP - General Family Medicine 07/09/22 Anticoagulation Team 07/09/22 documented as of this encounter
--- OUTSIDE RECORDS SUMMARY | 2024-01-07 08:11 | XMS_ITS | Encounter Summary ---
Author Organization [facility] Address [address] [place] [address] Care Team Providers Care Editing Computer Publisher Name Role Phone Stefan Salomon M.D. Primary Care Provider [phone] Reason for Visit * Outpatient (Routine) - Authorized Specialty Diagnoses / Procedures Referred By Contac t Referred To Contact Anticoagulation Diagnoses Anticoagulant Therapy Mutation Factor V Leiden Heterozygous (HCC) Monitoring For Therapeutic Drug Therapy Thrombosis Deep Vein Personal History Stefan Salomon M.D. [address] [phone] [facility] Referral ID Status Reason Start Date Expiration Date V isits Requested Visits Authorized [id number] Authorized 02/01/2023 01/31/2026 300 300 Encounter Details Date Type Department Care Team (Latest Contact Info) Description 01/03/2024 9:30 AM CDT Anticoagulation Visit Department of Anticoagulation in [place], [place] [address] [place] [address] Stefan Salomon M.D. [address] [phone] Mutation Factor V Leiden Heterozygous (HCC) (Primary Dx); Anticoagulant Therapy; Monitoring For Therapeutic Drug Therapy; Thrombosis Deep [...] How often do you attend jain or sabianist serv ices? Never 07/09/2022 Do [...] Answer Date Recorded PHQ-2 Score 0 06/12/2023 [facility] [place] of Occupat ional Health - Occupational Stress [...] file Gender Identity Male 07/02/2017 9:12 AM HYGIENE TEACHER Sexual Orientation Straight 07/02/2017 9: 12 AM HYGIENE TEACHER documented as of this encounter Patient Instructions * Patient Instructions* Emma Seth R.N. - 01/03/2024 9:30 AM CDT Your next INR will be in 6 weeks. You will need to call the Anticoagulation Program for warfarin dosing at the scheduled time for your nurse visit, as indicated on your Patient Appointment Guide (PAG). To reschedule your appointment or for questions about your warfarin, please call Primary Care Anticoagulation Program at [phone] from 7:30 am to 4:30 pm. Saturday-Saturday [...] if you start any herbal or other swps-rlv-wpucogs product (check with your doctor, a nurse, [...] Progress Notes * Emma Seth R.N. - 01/03/2024 9:30 AM CDT Warfarin Maintenance Nursing Protocol [...] does NOT have atrial fibrillation/flutter, therefore no CHADS2/DGH5RE7-OCFb score calculated. Proceeded to maintenance warfarin dosing [...] return sooner than protocol recommendation, per patient preference; 6 week INR recheck. Pt is on injectable anticoagulant: No. Plan [...] Appointment Department of Laboratory Medicine in [address] [phone] Stefan Salomon M.D. [address] [place] [phone] 02/14/2024 9:30 AM CDT Anticoagulation Visit Department of Anticoagulation in [place], [place] [address] [place] [address] Stefan Salomon M.D. [address] [place] [phone] Scheduled Orders Name Type Priority Associated Diagnoses Orde r Schedule INR Reflex, POCT, Blood Point of Care Testing-Docked Device Routine Anticoagulant Therapy Mutation Factor V Leiden Heterozygous (HCC) Monitoring For Therapeutic Drug Therapy Thrombosis Deep Vein Personal History Expected: 02/14/2024, Expires: 04/04/2025 documented as of this encounter Visit Diagnoses Diagnosis Mutation Factor V Leiden Heterozygous (HCC)- Primary Anticoagulant Therapy Monitoring For Therapeutic Drug Therapy Thrombosis Deep Vein Personal History documented in this encounter Additional Health Concerns Assessment Noted Time PHQ-9 Depression Total Score: 1 06/12/19 24 4:14 PM HYGIENE TEACHER documented as of this encounter Care Teams Editing Computer Publisher Relationship Specialty Start Date End Date Stefan Salomon M.D. [address] [place] [phone] PCP - General Family Medicine 07/09/22 Anticoagulation Team 07/09/22 documented as of this encounter
--- OUTSIDE RECORDS SUMMARY | 2024-01-07 08:11 | XMS_ITS | Encounter Summary ---
Author Organization [facility] Address [address] [place] [address] Care Team Providers Care Access Analyst Name Role Phone Stefan Salomon M.D. Primary Care Provider [phone] Reason for Visit * Reason Comments Med Refill Encounter Details Date Type Department Care Team (Late st Contact Info) Description 12/02/2023 Refill Department of Family Medicine, [facility], in [address] [phone] Stefan Salomon M.D. [address] [place] [phone] Med Refill Social History Tobacco Use [...] How often do you attend voodoo or tenriism serv ices? Never 07/09/2022 Do [...] Score 0 06/12/2023 [facility] Occupat ional Health - [...] file Gender Identity Male 07/02/2017 9:12 AM TRAINING GENERALIST Sexual Orientation Straight 07/02/2017 9: 12 AM TRAINING GENERALIST documented as of this encounter Miscellaneous Notes [...] provider. Controlled Substance, CSA Primary Provider: Stefan aSlomon M.D. documented in this encounter Plan of Treatment Upcoming Encounters Date Type Department Care Team (Latest Contact Info) Description 02/14/2024 8:50 AM CDT Appointment Department of Laboratory Medicine in [address] [phone] Stefan Salomon M.D. [address] [place] [phone] 02/14/2024 9:30 AM CDT Anticoagulation Visit Department of Anticoagulation in [place], [place] [address] [place] [address] Stefan Salomon M.D. [address] [place] [phone] documented as of this encounter Visit Diagnoses Diagnosis Chronic Pain Syndrome Degeneration Disc Cervical Polyarthralgia documented in this encounter Additional Health Concerns Assessment Noted Time PHQ-9 Depression Total Score: 1 06/12/19 24 4:14 PM TRAINING GENERALIST documented as of this encounter Care Teams Access Analyst Relationship Specialty Start Date End Date Stefan Salomon M.D. [address] [place] [phone] PCP - General Family Medicine 07/09/22 Anticoagulation Team 07/09/22 documented as of this encounter
--- OUTSIDE RECORDS SUMMARY | 2024-01-07 08:11 | XMS_ITS | Referral Summary ---
Author Organization [facility] Address [address] [place] [address] Care Team Providers Care Heat Treat Furnace Operator Name Role Phone Stefan Salomon M.D. Primary Care Provider [phone] Source Comments Patient records contain information from all sites at [facility]. For routine questions regarding patient records, call [phone] during business hours, M-F 8:00 AM - 5:00 PM Central Time. Record requests for emergency care only can be directed to [phone] at any time.[facility] Encounters Date Type Department Care Team Description 01/03/2024 7:11 AM CDT - 01/03/2024 11:59 PM CDT Hospital Encounter Department of Laboratory Medicine in [address] [phone] Stefan Salomon M.D. Anticoagulant Therapy [Z79.01]; Mutation Factor V Leiden Heterozygous (HCC); Monitoring For Therapeutic Drug Therapy [Z51.81]; Thrombosis Deep Vein Personal History Discharge Disposition: Home or Self Care 01/03/2024 9:30 AM CDT Anticoagulation Visit Department of Anticoagulation in [place], [place] [address] [place] [address] Stefan Salomon M.D. Mutation Factor V Leiden Heterozygous (HCC) (Primary Dx); Anticoagulant Therapy; Monitoring For Therapeutic Drug Therapy; Thrombosis Deep Vein Personal History 12/02/2023 Refill Department of Family Medicine, [facility], in [address] [phone] Stefan Salomon M.D. Med Refill 11/26/2023 8:00 AM CDT Anticoagulation Visit Department of Anticoagulation in [place], [place] [address] [place] [address] Stefan Salomon M.D. Anticoagulant Therapy [Z79.01] (Primary Dx); Mutation Factor V Leiden Heterozygous (HCC); Monitoring For Therapeutic Drug Therapy [Z51.81]; Thrombosis Deep Vein Personal History 11/22/2023 7:56 AM CDT - 11/22/2023 11:59 PM CDT Hospital Encounter Department of Laboratory Medicine in [address] [phone] Stefan Salomon M.D. Anticoagulant Therapy [Z79.01]; Mutation Factor V Leiden Heterozygous (HCC); Monitoring For Therapeutic Drug Therapy [Z51.81]; Thrombosis Deep Vein Personal History Discharge Disposition: Home or Self Care 11/05/2023 Refill Department of Family Medicine, [facility], in [address] [phone] Stefan Salomon M.D. Med Refill 10/23/2023 1:20 PM CDT Office Visit Department of Dermatology in [place], [place] [address] [facility] [address] [place] [address] Indira Gold M.D. Keratosis Seborrheic Inflamed [L82.0] (Primary Dx); Pruritus; Keratosis Actinic; Dermatitis 10/15/2023 3:30 PM CDT Anticoagulation Visit Department of Anticoagulation in [place], [place] [address] [place] [phone] Stefan Salomon M.D. Anticoagulant Therapy [Z79.01] (Primary Dx); Mutation Factor V Leiden Heterozygous (HCC); Monitoring For Therapeutic Drug Therapy [Z51.81]; Thrombosis Deep Vein Personal History 10/11/2023 7:16 AM CDT - 10/11/2023 11:59 PM CDT Hospital Encounter Department of Laboratory Medicine in [address] [phone] Stefan Salomon M.D. Anticoagulant Therapy; Mutation Factor V Leiden Heterozygous (HCC); Monitoring For Therapeutic Drug Therapy; Thrombosis Deep Vein Personal History Discharge Disposition: Home or Self Care 10/10/2023 Refill Department of Family Medicine, [facility], in [address] [phone] Stefan Salomon M.D. Med Refill from Last 3 Months Allergies Active Allergy Reactions Criticality Noted Date Comments Atorvastatin Myalgia 02/08/2017 Leg Pain/Cramps Qbkrdap-Wtv-Sls Reductase Inhibitors Other (see comments) 09/10/2022 Medications Medication Sig Dispensed Refills Start Date End Date Status hydrocortisone (HYTONE) 2.5 % cream Apply to rash/itch/irritation involving the face and skin folds twice daily as needed 30 g 2 06/13/2021 Active fluocinonide (LIDEX) 0.05 % cream Apply twice daily to areas of rash/itch/irritation as needed. DO NOT use on face or skin folds 120 g 2 06/13/2021 Active acetaminophen (TYLENOL) 500 mg capsule Take 500 mg by mouth every 6 (six) hours as needed for pain. Takes 4,000 mg usually each day Active fluorouraciL (EFUDEX) 5 % cream Apply 1 application. topically 2 (two) times a day. Apply to scalp for 2-3 weeks. 40 g 07/27/2022 Active polyethylene glycol-electrolyt es (GoLYTELY) 236-22.74-6.74 -5.86 gram solution Drink 1st portion of prep at 6 PM the evening before. 2nd portion must be started 3 hours before and finished 2 hours prior to report time 4000 mL 08/01/2022 Active gabapentin (NEURONTIN) 300 mg capsuleIndication s:Insufficiency Venous,Chronic Pain Syndrome,Pain Limb Generalized,Pain Leg Bilateral,Pseudog out Take 2 capsules (600 mg total) by mouth 3 (three) times a day. 540 capsule 3 02/25/2023 Active Additional Information Patient taking differently:600 mg oral2 times daily, 2 tabs twice a day, Informant: Self, Reported on 07/19/2023 amLODIPine (NORVASC) 10 mg tablet TAKE ONE TABLET BY MOUTH EVERY DAY 90 tablet 3 03/20/2023 Active losartan (COZAAR) 50 mg tablet TAKE 1 TABLET [50MG] BY MOUTH ONCE EVERY DAY 90 tablet 3 07/17/2023 Active triamcinolone (KENALOG) 0.1 % creamIndications: Pruritus Apply 1 Application topically 2 (two) times a day as needed (Rash). Apply to itchy spots on the back up to twice per day. 240 g 3 07/25/2023 Active warfarin (JANTOVEN) 5 mg tabletIndications :Anticoagulant Therapy,Mutation Factor V Leiden Heterozygous (HCC),Monitoring For Therapeutic Drug Therapy,Thrombosi s Deep Vein Personal History Please take as directed by your Anticoagulation Clinic. 118 tablet 3 09/24/2023 Active traMADoL (Ultram) 50 mg tabletIndications :Chronic Pain/Nonacute Pain Take 1-2 tablets (50-100 mg total) by mouth every 6 (six) hours as needed for pain Indications: Chronic Pain/Nonacute Pain. for pain 240 tablet 12/09/2023 Active Active Problems Problem Noted Date Diagnosed [...] Generalized 11/18/2011 Overview (07/02/2017): Saw Neurologist at [facility] on [...] How often do you attend samaritan or denominational serv ices? Never 07/09/2022 Do [...] Answer Date Recorded PHQ-2 Score 0 06/12/2023 [facility] of Occupat ional Health - Occupational Stress [...] file Gender Identity Male 07/02/2017 9:12 AM SECURITY SYSTEMS ADMINISTRATOR Sexual Orientation Straight 07/02/2017 9: 12 AM SECURITY SYSTEMS ADMINISTRATOR Last Filed Vital Signs Vital Sign Reading Time Taken Comments Blood Pressure 148/82 06/12/2023 4:23 PM SECURITY SYSTEMS ADMINISTRATOR Pulse 63 06/12/2023 4:23 PM SECURITY SYSTEMS ADMINISTRATOR Temperature 36.6 ??C (97.9 ??F) 06/12/2023 4:23 PM CS T Respiratory Rate 18 06/12/2023 4:23 PM SECURITY SYSTEMS ADMINISTRATOR Oxygen Saturation 94% 06/12/2023 4:23 PM SECURITY SYSTEMS ADMINISTRATOR Inhaled Oxygen Concentration - - Weight 95.6 kg (210 lb 12.2 oz) 06/12/2023 4:23 PM SECURITY SYSTEMS ADMINISTRATOR Height 176.5 cm (5' 9.49) 08/01/2022 9:59 AM CS T Body Mass Index 30.69 08/01/2022 9:59 AM SECURITY SYSTEMS ADMINISTRATOR Plan of Treatment Upcoming Encounters Date Type Department Care Team (Latest Contact Info) Description 02/14/2024 8:50 AM CDT Appointment Department of Laboratory Medicine in [address] [phone] Stefan Salomon M.D. [address] [place] [phone] 02/14/2024 9:30 AM CDT Anticoagulation Visit Department of Anticoagulation in [place], [place] [address] [place] [address] Stefan Salomon M.D. [address] [place] [phone] Medical Devices Implanted Type Area [employer] Operator Device Identifier Shelf Expiration Date Model / Serial / Lot Mineralized Cancellous Bone 2.0 - Anne [id number] Implanted:Qty: 1 on 08/10/2015 Bone or Tissue Tooth [facility] Description:Device Manufactu rer - [facility]. Body Location - Other. tooth-13. Device Status Text - [id number]. Hardware E.G. Pins/Screws/Rk s Hardware e.g. pins/screws /rods Mouth Abutment Nobrpl Rp 4.3x5 - Anne [id number] Implanted:Qty: 1 on 07/03/2007 Hardware e.g. pins/screws /rods Tooth [employer] Description:Device Manufactu rer - [employer]. Body Location - Tooth 5. Device Status Text - [id number]. Screw Rst Curly Taper Rp 4.3x13.0 - Anne [id number] Implanted:Qty: 1 on 07/03/2007 Hardware e.g. pins/screws /rods Tooth [employer] Description:Device Manufactu rer - [employer]. Body Location - Tooth 5. Device Status Text - [id number]. Screw Nobrpl Curly Tap Supervisor Network Control Operators 3.5x11.5 - Anne [id number] Implanted:Qty: 1 on 03/03/2012 Hardware e.g. pins/screws /rods Tooth [employer] Description:Device Manufactu rer - [employer]. Body Location - Tooth 29. Device Status Text - [id number]. Abutment Nobrpl Supervisor Network Control Operators 3.5x5 - Anne [id number] Implanted:Qty: 1 on 03/03/2012 Hardware e.g. pins/screws /rods Tooth [employer] Description:Device Manufactu rer - [employer]. Body Location - Tooth 29. Device Status Text - [id number]. Abutment Nobrpl Supervisor Network Control Operators 3.5x3 - Anne [id number] Implanted:Qty: 1 on 08/23/2014 Hardware e.g. pins/screws /rods Tooth [employer] Description:Device Manufactu rer - [employer]. Body Location - Other. tooth- 28. Device Status Text - [id number]. Abutment Nobrpl Supervisor Network Control Operators 3.5x3 - Anne [id number] Implanted:Qty: 1 on 08/23/2014 Hardware e.g. pins/screws /rods Tooth [employer] Description:Device Manufactu rer - [employer]. Body Location - Other. tooth- 28. Device Status Text - [id number]. Screw Nobrpl Curly Taper Supervisor Network Control Operators 3.5x13.0 - Anne [id number] Implanted:Qty: 1 on 08/23/2014 Hardware e.g. pins/screws /rods Tooth [employer] Description:Device Manufactu rer - [employer]. Body Location - Other. tooth- 28. Device Status Text - [id number]. Screw Nobrpl Curly Taper Rp 4.3x10.0 - Anne [id number] Implanted:Qty: 1 on 08/10/2015 Hardware e.g. pins/screws /rods Tooth [employer] Description:Device Manufactu rer - [employer]. Body Location - Other. tooth- 20. Device Status Text - [id number]. Brane Fix Rst Tiunite Rp 4.3 X 13.0 - Anne [id number] Implanted:Qty: 1 on 08/10/2015 Hardware e.g. pins/screws /rods Tooth [employer] Description:Device Manufactu rer - [employer]. Body Location - Other. tooth- 21. Device Status Text - [id number]. Brane Fix Rst Tiunite Rp 4.3 X 13.0 - Anne [id number] Implanted:Qty: 1 on 08/10/2015 Hardware e.g. pins/screws /rods Tooth [employer] Description:Device Manufactu rer - [employer]. Body Location - Other. tooth- 13. Device Status Text - [id number]. Brane Fix Rst Tiunite Rp 4.3 X 13.0 - Anne [id number] Implanted:Qty: 1 on 08/10/2015 Hardware e.g. pins/screws /rods Tooth [employer] Description:Device Manufactu rer - [employer]. Body Location - Other. tooth- 11. Device Status Text - [id number]. Abutment Nobrpl Rp 4.3x3 - Anne [id number] Implanted:Qty: 1 on 02/08/2016 Hardware e.g. pins/screws /rods Tooth [employer] Description:Device Manufactu rer - [employer]. Body Location - Other. tooth- 20. Device Status Text - [id number]. Abutment Nobrpl Rp 5.3x3 - Anne [id number] Implanted:Qty: 1 on 02/08/2016 Hardware e.g. pins/screws /rods Tooth [employer] Description:Device Manufactu rer - [employer]. Body Location - Other. tooth- 13. Device Status Text - [id number]. Abutment Nobrpl Rp 4.3x3 - Anne [id number] Implanted:Qty: 1 on 02/08/2016 Hardware e.g. pins/screws /rods Tooth [employer] Description:Device Manufactu rer - [employer]. Body Location - Other. tooth- 21. Device Status Text - [id number]. Abutment Nobrpl Rp 4.3x3 - Anne [id number] Implanted:Qty: 1 on 02/08/2016 Hardware e.g. pins/screws /rods Tooth [employer] Description:Device Manufactu rer - [employer]. Body Location - Other. tooth- 11. Device Status Text - [id number]. Patch Dura-Guard 4x 4 - Anne [id number] Implanted:Qty: 1 on 08/19/1996 Mesh or Patch [employer] Description:Device Manufactu rer - [employer]. Device Status Text - [id number]. Allograft Bioxclude Chorion 1cm X 2.5cm - Nane [id number] Implanted:Qty: 1 on 01/15/2014 Mesh or Patch Tooth Unknown Description:Device Manufactu rer - Unknown. Body Location - tooth-28. Device Status Text - [id number]. Allograft Bioxclude Chorion 1cm X 2.5cm - Anne [id number] Implanted:Qty: 1 on 01/15/2014 Mesh or Patch Tooth Unknown Description:Device Manufactu rer - Unknown. Body Location - tooth-5. Device Status Text - [id number]. Allograft Bioxclude Chorion 1.5cm X 2cm - Anne [id number] Implanted:Qty: 1 on 08/10/2015 Mesh or Patch Other/Legacy - See Implant Description Unknown Description:Device Manufactu rer - Unknown. Body Location - Other. Left. Device Status Text - [id number]. Procedures Procedure Name Priority Date/Time Associated Diagnosis Comments INR REFLEX, POCT, B Routine 01/03/2024 7 :17 AM CDT INR REFLEX, POCT, B Routine 11/22/2023 8 [...] LIPID PANEL, S Routine 04/19/2023 7:39 AM SECURITY SYSTEMS ADMINISTRATOR Hyperlipidemia BASIC METABOLIC PANEL, S/P Routine 04/19/2023 7:39 AM SECURITY SYSTEMS ADMINISTRATOR Hypertension Essential Primary HCV AB SCRN W/REFLEX TO HCV PCR, S Routine 06/15/2016 9:01 AM SECURITY SYSTEMS ADMINISTRATOR COLONOSCOPY Routine 12/27/2014 US AORTA Routine 11/09/2014 8:30 AM CDT from Last 3 Months or Most Recently Relevant to Health Maintenance Results * INR Reflex, POCT, Blood (01/03/2024 7:17 AM CDT) Only the most recent of3 resultswithin the time period is included. INR Reflex, POCT, B 2.0 01/03/2024 7:17 AM CDT CNFL Comment: ----ADDITIONAL INFORMATION---- Standard intensity warfarin therapeutic range: 2.0 to 3.0 ?? High intensity warfarin therapeutic range: 2.5 to 3.5 Blood 01/03/2024 7:17 AM CDT 01/03/2024 7:19 AM CDT Generic Rals LAB POCT ORDERABLES - DEVICE Performing Organization Address City/State/[facility] Co de Phone Number [facility] [address] [place] [address], [facility] [place] [address] * Lipid Panel (04/19/2023 7:39 AM SECURITY SYSTEMS ADMINISTRATOR) Triglycerides 113 mg/dL 04/19/2023 11:48 AM SECURITY SYSTEMS ADMINISTRATOR [facility] Comment: ----REFERENCE VALUE---- Normal: <150 mg/dL Borderline High: 150-199 mg/dL High: 200-499 mg/dL Very High: > or =500 mg/dL Cholesterol, Total 144 mg/dL 2022 11:48 AM SECURITY SYSTEMS ADMINISTRATOR CNFL Comment: ----REFERENCE VALUE---- Desirable: < 200 mg/dL Borderline High: 200 - 239 mg/dL High: > or = 240 mg/dL Cholesterol, LDL, Calculated 76 mg/dL 04/19/2023 12:10 PM SECURITY SYSTEMS ADMINISTRATOR [facility]FL Comment: ----REFERENCE VALUE---- Desirable: <100 mg/dL Above Desirable: 100-129 mg/dL Borderline High: 130-159 mg/dL High: 160-189 mg/dL Very High: >=190 mg/dL ----ADDITIONAL INFORMATION---- LDL cholesterol calculated using the Sosa/NIH equation. Cholesterol, HDL 48 >=40 mg/dL 04/19/20 12:10 PM SECURITY SYSTEMS ADMINISTRATOR CNFL Cholesterol, Non-HDL, Calculated 96 mg/dL 04/19/2023 12:10 PM SECURITY SYSTEMS ADMINISTRATOR [facility]FL Comment: ----REFERENCE VALUE---- Desirable: <130 mg/dL Above Desirable: 130-159 mg/dL Borderline High: 160-189 mg/dL High: 190-219 mg/dL Very High: > or =220 mg/dL Fasting (8 HR or more) No 04/19/2023 7:40 AM SECURITY SYSTEMS ADMINISTRATOR [facility]FL Blood (Blood, Venous) 04/19/2023 7:39 AM SECURITY SYSTEMS ADMINISTRATOR 04/19/2023 7:40 AM SECURITY SYSTEMS ADMINISTRATOR Stefan Salomon M.D. LAB BLOOD ADD-ON Performing Organization Address [facility]/State/[facility] Co de Phone Number [facility] [address] [place] [address], [facility] CNFL [facility] [place] [address] * Basic Metabolic Panel (04/19/2023 7:39 AM SECURITY SYSTEMS ADMINISTRATOR) Potassium, P 4.1 3.6 - 5.2 mmol/L 04/19/2023 11:48 AM SECURITY SYSTEMS ADMINISTRATOR CNFL Sodium, P 138 135 - 145 mmol/L 04/19/2023 11:48 AM SECURITY SYSTEMS ADMINISTRATOR CNFL Chloride, P 102 98 - 107 mmol/L 04/19/2023 11:48 AM SECURITY SYSTEMS ADMINISTRATOR CNFL Bicarbonate, P 23 22 - 29 mmol/L 04/19/2023 11:48 AM SECURITY SYSTEMS ADMINISTRATOR CNFL Anion Gap, P 13 7 - 15 04/19/2023 11:48 AM SECURITY SYSTEMS ADMINISTRATOR CNFL BUN (Blood Urea Nitrogen), P 21 8 - 24 mg/dL 04/19/2023 11:48 AM SECURITY SYSTEMS ADMINISTRATOR CNFL Creatinine 0.87 0.74 - 1.35 mg/dL 04/19/2023 11:48 AM SECURITY SYSTEMS ADMINISTRATOR CNFL Estimated GFR (eGFR) >90 >=60 mL/min/BSA 04/19/2023 11:48 AM SECURITY SYSTEMS ADMINISTRATOR [facility]FL Comment: Estimated GFR calculated using the 2020 CKD_EPI creatinine equation. Calcium, Total, P 9.1 8.8 - 10.2 mg/dL 04/19/2023 11:48 AM SECURITY SYSTEMS ADMINISTRATOR CNFL Glucose, P 103 70 - 140 mg/dL 04/19/2023 11:48 AM SECURITY SYSTEMS ADMINISTRATOR CNFL Blood (Blood, Venous) 04/19/2023 7:39 AM SECURITY SYSTEMS ADMINISTRATOR 04/19/2023 7:40 AM SECURITY SYSTEMS ADMINISTRATOR Stefan Salomon M.D. LAB BLOOD ADD-ON Performing Organization Address City/[facility]/ZIP Co de Phone Number [facility] [address] [place] [address], [facility] [address] * HCV Ab w/Reflex to HCV PCR, S (medicare) (06/15/2016 9:01 AM SECURITY SYSTEMS ADMINISTRATOR) HXHCV Ab Count Includes [facility] Reactive Negative POWERCHART Comment: Supplemental testing for HCV RNA is ordered to rule out active HCV infection. Aznztj-yf-ylsghd ratio is >=1.00 and <8.00. Test Performed by: [facility] [place] [address] Optometry Doctor: Armando Chavez II, M.D., Ph.D. Blood 06/15/2016 9:01 AM SECURITY SYSTEMS ADMINISTRATOR Abraham Valle M.D. LAB MICROBIOLOGY - B [...] Recently Relevant to Health Maintenance Care Teams Heat Treat Furnace Operator Relationship Specialty Start Date End Date Stefan Salomon M.D. [address] [phone] PCP - General Family Medicine 07/09/22 Anticoagulation Team 07/09/22
--- OUTSIDE RECORDS SUMMARY | 2024-01-07 08:11 | XMS_ITS | Encounter Summary ---
Author Organization [facility] Address [address] [place] [address] Care Team Providers Care Dry House Wheeler Name Role Phone Stefan Salomon M.D. Primary Care Provider [phone] Encounter Details Date Type Department Care Team (Latest Contact Info) Description 11/22/2023 7:56 AM CDT - 11/22/2023 11:59 PM CDT Hospital Encounter Department of Laboratory Medicine in [address] [phone] Stefan Salomon M.D. [address] [place] [address] [phone] Anticoagulant Therapy [Z79.01]; Mutation Factor V Leiden [...] How often do you attend restorationism or yazidi serv ices? 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 [address] [place] [phone] 02/14/2024 9:30 AM CDT Anticoagulation Visit Department of Anticoagulation in [place], [place] [address] [place] [address] Stefan Salomon M.D. [address] [place] [address] [phone] documented as of this encounter Procedures Procedure [...] 11/22/2023 8:01 AM CDT [facility] Comment: ----ADDITIONAL INFORMATION---- Standard intensity warfarin therapeutic range: 2.0 to 3.0 ?? High intensity warfarin therapeutic range: 2.5 to 3.5 Blood (Blood, Capillary) 11/22/2023 8:01 AM CDT 11/22/2023 8:01 AM CDT Stefan Salomon M.D. LAB POCT ORDERABLES - DEVICE [facility] [address] [place] [id number], [place] CNFL [facility] in [address] [address] documented in this encounter Visit Diagnoses Diagnosis Anticoagulant Therapy [Z79.01] Mutation Factor V Leiden Heterozygous (HCC) Monitoring For Therapeutic Drug Therapy [Z51.81] Thrombosis Deep Vein Personal History documented in this encounter Additional Health Concerns Assessment Noted Time PHQ-9 Depression Total Score: 1 06/12/19 24 4:14 PM SPIKE DRIVER documented as of this encounter Care Teams Dry House Wheeler Relationship Specialty Start Date End Date Stefan Salomon M.D. [address] [phone] PCP - General Family Medicine 07/09/22 Anticoagulation Team 07/09/22 documented as of this encounter
--- OUTSIDE RECORDS SUMMARY | 2024-01-07 08:11 | XMS_ITS | Encounter Summary ---
Author Organization [facility] Address [address] [place] [address] Care Team Providers Care Sandblast Or Shotblast Equipment Tender Name Role Phone Stefan Salomon M.D. Primary Care Provider [phone] Reason for Visit * Outpatient (Routine) - Authorized Specialty Diagnoses / Procedures Referred By Contdayana t Referred To Contact Anticoagulation Diagnoses Anticoagulant Therapy Mutation Factor V Leiden Heterozygous (HCC) Monitoring For Therapeutic Drug Therapy Thrombosis Deep Vein Personal History Stefan Salomon M.D. [address] [phone] [facility] Referral ID Status Reason Start Date Expiration Date V isits Requested Visits Authorized [id number] Authorized 02/01/2023 01/31/2026 300 300 Encounter Details Date Type Department Care Team (Latest Contact Info) Description 11/26/2023 8:00 AM CDT Anticoagulation Visit Department of Anticoagulation in [place], [place] [address] [place] [address] Stefan Salomon M.D. [address] [phone] Anticoagulant Therapy [Z79.01] (Primary Dx); [...] How often do you attend judaism or mandaen serv ices? 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 Saturday-Saturday [...] if you start any herbal or other neax-jpm-szesanp product (check with your doctor, a nurse, [...] does NOT have atrial fibrillation/flutter, therefore no CHADS2/CFL7VU7-NPWr score calculated. Proceeded to maintenance warfarin dosing and follow-up, but offered patient return for follow-up INR in 8 weeks as 3 consecutive outpatient INRs within range. Additional Info: None Previous INR was therapeutic. Today???s INR is Therapeutic. Dosing and follow up recommendation: Protocol does not apply based on positive exclusion criteria indicated above stating consult required. Consulted Anticoagulation [facility] for plan. Currently bridging: no. INR is therapeutic/supratherapeutic. Additional dosing or follow-up information: Next INR in 6 weeks per consult with Anticoagulation [facility] Provider consulted: Essie Harris-Anticoagulation [facility] Pt is on injectable anticoagulant: [...] Appointment Department of Laboratory Medicine in [address] [phone] Stefan Salomon M.D. [address] [place] [address] [phone] 02/14/2024 9:30 AM CDT Anticoagulation Visit Department of Anticoagulation in [place] [address] [place] [phone] Stefan Salomon M.D. [address] [place] [phone] documented as of this encounter Visit Diagnoses Diagnosis Anticoagulant Therapy [Z79.01]- Primary Mutation Factor V Leiden Heterozygous (HCC) Monitoring For Therapeutic Drug Therapy [Z51.81] Thrombosis Deep Vein Personal History documented in this encounter Additional Health Concerns Assessment Noted Time PHQ-9 Depression Total Score: 1 06/12/19 24 4:14 PM MANUFACTURING MECHANIC documented as of this encounter Care Teams Sandblast Or Shotblast Equipment Tender Relationship Specialty Start Date End Date Stefan Salomon M.D. [address] [place] [phone] PCP - General Family Medicine 07/09/22 Anticoagulation Team 07/09/22 documented as of this encounter
--- OUTSIDE RECORDS SUMMARY | 2024-01-07 08:11 | XMS_ITS | Encounter Summary ---
Author Organization [facility] Address [address] [place] [address] Care Team Providers Care Bodywork Therapist Name Role Phone Stefan Salomon M.D. Primary Care Provider [phone] Reason for Visit * Outpatient (Routine) - Authorized Specialty Diagnoses / Procedures Referred By Contdayana t Referred To Contact Anticoagulation Diagnoses Anticoagulant Therapy Mutation Factor V Leiden Heterozygous (HCC) Monitoring For Therapeutic Drug Therapy Thrombosis Deep Vein Personal History Stefan Salomon M.D. [address] [phone] [facility] Referral ID Status Reason Start Date Expiration Date V isits Requested Visits Authorized [id number] Authorized 02/01/2023 01/31/2026 300 300 Encounter Details Date Type Department Care Team (Latest Contact Info) Description 10/15/2023 3:30 PM CDT Anticoagulation Visit Department of Anticoagulation in [place], [place] [address] [place] [address] Stefan Salomon M.D. [address] [phone] Anticoagulant Therapy [Z79.01] (Primary Dx); [...] How often do you attend baptist or sabianism serv ices? 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 Saturday-Saturday [...] if you start any herbal or other gpkt-lmb-nfhbuig product (check with your doctor, a nurse, [...] does NOT have atrial fibrillation/flutter, therefore no CHADS2/GDE5MI6-BLZk score calculated. Proceeded to maintenance warfarin dosing and follow-up, but offered patient return for follow-up INR in 6 weeks as 2 consecutive outpatient INRs within range. Additional Info: None Previous INR was therapeutic. Today???s INR is Therapeutic. Dosing and follow up recommendation: Protocol does not apply based on positive exclusion criteria indicated above stating consult required. Consulted Anticoagulation [facility] for plan. Currently bridging: no. INR is [...] CDT Appointment Department of Laboratory Medicine in [address] [phone] Stefan Salomon M.D. [address] [place] [phone] 02/14/2024 9:30 AM CDT Anticoagulation Visit Department of Anticoagulation in [place], [place] [address] [place] [address] Stefan Salomon M.D. [address] [place] [phone] documented as of this encounter Results * INR Reflex, POCT, Blood (11/22/2023 8:01 AM CDT) INR Reflex, POCT, B 2.3 11/22/2023 8:01 AM CDT [facility] Comment: ----ADDITIONAL INFORMATION---- Standard intensity warfarin therapeutic range: 2.0 to 3.0 ?? High intensity warfarin therapeutic range: 2.5 to 3.5 Blood (Blood, Capillary) 11/22/2023 8:01 AM CDT 11/22/2023 8:01 AM CDT Stefan Salomon M.D. LAB POCT ORDERABLES - DEVICE [facility] [address] [place] [address], [place] CNFL [facility] in [address] [address] documented in this encounter Visit Diagnoses Diagnosis Anticoagulant Therapy [Z79.01]- Primary Mutation Factor V Leiden Heterozygous (HCC) Monitoring For Therapeutic Drug Therapy [Z51.81] Thrombosis Deep Vein Personal History documented in this encounter Additional Health Concerns Assessment Noted Time PHQ-9 Depression Total Score: 1 06/12/19 24 4:14 PM FILTER WASHER AND PRESSER documented as of this encounter Care Teams Bodywork Therapist Relationship Specialty Start Date End Date Stefan Salomon M.D. [address] [place] [phone] PCP - General Family Medicine 07/09/22 Anticoagulation Team 07/09/22 documented as of this encounter
--- OUTSIDE RECORDS SUMMARY | 2024-01-07 08:11 | XMS_ITS | Clinical Summary ---
Author Organization [facility] Address [address] [place] [address] Care Team Providers Care Counseling Center Manager Name Role Phone Stefan Salomon M.D. Primary Care Provider [phone] Source Comments Patient records contain information from all sites at [facility]. For routine questions regarding patient records, call [phone] during business hours, M-F 8:00 AM - 5:00 PM Central Time. Record requests for emergency care only can be directed to [phone] at any time.[facility] Allergies Active Allergy Reactions Criticality Noted Date Comments Atorvastatin Myalgia 02/08/2017 Leg Pain/Cramps Zcyxcgr-Und-Ojp Reductase Inhibitors Other (see comments) 09/10/2022 Medications [...] Generalized 11/18/2011 Overview (07/02/2017): Saw Neurologist at [facility] on 09/16/2009. MRI lumbar spine [...] Date Type Department Care Team Description 01/03/2024 9:30 AM CDT Anticoagulation Visit Department of Anticoagulation in [address] [phone] Stefan Salomon M.D. Mutation Factor V Leiden Heterozygous (HCC) (Primary Dx); Anticoagulant Therapy; Monitoring For Therapeutic Drug Therapy; Thrombosis Deep Vein Personal History 01/03/2024 7:11 AM CDT - 01/03/2024 11:59 PM CDT Hospital Encounter Department of Laboratory Medicine in [address] [address] Stefan Salomon M.D. Anticoagulant Therapy [Z79.01]; Mutation Factor V Leiden Heterozygous (HCC); Monitoring For Therapeutic Drug Therapy [Z51.81]; Thrombosis Deep Vein Personal History Discharge Disposition: Home or Self Care 12/02/2023 Refill Department of Family Medicine, [facility], in [address] [phone] Stefan Salomon M.D. Med Refill 11/26/2023 8:00 AM CDT Anticoagulation Visit Department of Anticoagulation in [place], [place] [address] [place] [address] Stefan Salomon M.D. Anticoagulant Therapy [Z79.01] (Primary Dx); Mutation Factor V Leiden Heterozygous (HCC); Monitoring For Therapeutic Drug Therapy [Z51.81]; Thrombosis Deep Vein Personal History 11/22/2023 7:56 AM CDT - 11/22/2023 11:59 PM CDT Hospital Encounter Department of Laboratory Medicine in [address] [address] Stefan Salomon M.D. Anticoagulant Therapy [Z79.01]; Mutation Factor V Leiden Heterozygous (HCC); Monitoring For Therapeutic Drug Therapy [Z51.81]; Thrombosis Deep Vein Personal History Discharge Disposition: Home or Self Care 11/05/2023 Refill Department of Family Medicine, [facility], in [address] [address] Stefan Salomon M.D. Med Refill 10/23/2023 1:20 PM CDT Office Visit Department of Dermatology in [place], [place] [address] [place] [address] Indira Gold M.D. Keratosis Seborrheic Inflamed [L82.0] (Primary Dx); Pruritus; Keratosis Actinic; Dermatitis 10/15/2023 3:30 PM CDT Anticoagulation Visit Department of Anticoagulation in [place], [place] [address] [place] [address] Stefan Salomon M.D. Anticoagulant Therapy [Z79.01] (Primary Dx); Mutation Factor V Leiden Heterozygous (HCC); Monitoring For Therapeutic Drug Therapy [Z51.81]; Thrombosis Deep Vein Personal History 10/11/2023 7:16 AM CDT - 10/11/2023 11:59 PM CDT Hospital Encounter Department of Laboratory Medicine in [address] [address] Stefan Salomon M.D. Anticoagulant Therapy; Mutation Factor V Leiden Heterozygous (HCC); Monitoring For Therapeutic Drug Therapy; Thrombosis Deep Vein Personal History Discharge Disposition: Home or Self Care 10/10/2023 Refill Department of Family Medicine, [facility], in [address] [phone] Stefan Salomon M.D. Med Refill from Last [...] PHQ-2 Score 0 06/12/2023 [facility] of Occupat ional Health - Occupational Stress [...] file Gender Identity Male 07/02/2017 9:12 AM WHITING CAN WORKER Sexual Orientation Straight 07/02/2017 9: 12 AM WHITING CAN WORKER Last Filed Vital Signs Vital Sign Reading Time Taken Comments Blood Pressure 148/82 06/12/2023 4:23 PM WHITING CAN WORKER Pulse 63 06/12/2023 4:23 PM WHITING CAN WORKER Temperature 36.6 ??C (97.9 ??F) 06/12/2023 4:23 PM CS T Respiratory Rate 18 06/12/2023 4:23 PM WHITING CAN WORKER Oxygen Saturation 94% 06/12/2023 4:23 PM WHITING CAN WORKER Inhaled Oxygen Concentration - - Weight 95.6 kg (210 lb 12.2 oz) 06/12/2023 4:23 PM WHITING CAN WORKER Height 176.5 cm (5' 9.49) 08/01/2022 9:59 AM CS T Body Mass Index 30.69 08/01/2022 9:59 AM WHITING CAN WORKER Plan of Treatment Upcoming Encounters Date Type Department Care Team (Latest Contact Info) Description 02/14/2024 8:50 AM CDT Appointment Department of Laboratory Medicine in [address] [phone] Stefan Salomon M.D. [address] [place] [phone] 02/14/2024 9:30 AM CDT Anticoagulation Visit Department of Anticoagulation in [address] [address] Stefan Salomon M.D. [address] [place] [phone] Health Maintenance Due Date Last Done Comments CT Colonography 1948 Cologuard 1950 Zoster Vaccines (1 of 2) 1998 Colonoscopy 12/28/2019 12/27/2014 Colorectal Cancer Surveillance 12/28/2019 Visit: Medicare Annual Wellness 07/10/2023 3 Office Visit for Blood Press ure Check / Re-check 09/11/2023 06/12/2023 COVID-19 Vaccine (6 - 2022-2 4 season) 2023 05/23/2023, 04/21/2022, 04/14/2021, Additional history exists Opioid Risk Tool (ORT) 12/10/2023 07/09/2022 PEG assessment for Opioid therapy 12/10/2023 024 Controlled Substance Monitoring 02/24/2024 Influenza Vaccine (#1) 2024 , 04/19/2022, 04/20/2021, Additional history exists Creatinine Level [...] exists Abdominal Aortic Aneurysm (A AA) Screen Discontinued 11/09/2014, 01/11/2012, 09/07/2009, Additional history exists Hepatitis C Screening Completed 06/15/2016, 017 Pneumococcal vaccine (65+ years) Completed 07/02/19 18, 10/29/2014 Depression Screening (Annual PHQ-2) Completed 06/12/2023 Fall Risk Screen (Annual) Completed 06/12/2023 Medical Devices Implanted Type Area Customer Operations Specialist Device Identifier Shelf Expiration Date Model / Serial / Lot Mineralized Cancellous Bone 2.0 - Anne [id number] Implanted:Qty: 1 on 08/10/2015 Bone or Tissue Tooth [facility] Description:Device Manufactu Formerly [facility]. Body Location - Other. tooth-13. Device Status Text - [id number]. Hardware E.G. Pins/Screws/Rk s Hardware e.g. pins/screws /rods Mouth Abutment Nobrpl Rp 4.3x5 - Anne [id number] Implanted:Qty: 1 on 07/03/2007 Hardware e.g. pins/screws /rods Tooth [employer] Description:Device Manufactu rer - [employer]. Body Location - Tooth 5. Device Status Text - [id number]. Screw Rst Curly Taper Rp 4.3x13.0 - Anne [id number] Implanted:Qty: 1 on 07/03/2007 Hardware e.g. pins/screws /rods Tooth [employer] Description:Device Manufactu rer - [employer]. Body Location - Tooth 5. Device Status Text - [id number]. Screw Nobrpl Curly Tap Call Or Contact Centre Team Leader 3.5x11.5 - Anne [id number] Implanted:Qty: 1 on 03/03/2012 Hardware e.g. pins/screws /rods Tooth [employer] Description:Device Manufactu rer - [employer]. Body Location - Tooth 29. Device Status Text - [id number]. Abutment Nobrpl Call Or Contact Centre Team Leader 3.5x5 - Anne [id number] Implanted:Qty: 1 on 03/03/2012 Hardware e.g. pins/screws /rods Tooth [employer] Description:Device Manufactu rer - [employer]. Body Location - Tooth 29. Device Status Text - [id number]. Abutment Nobrpl Call Or Contact Centre Team Leader 3.5x3 - Anne [id number] Implanted:Qty: 1 on 08/23/2014 Hardware e.g. pins/screws /rods Tooth [employer] Description:Device Manufactu rer - [employer]. Body Location - Other. tooth- 28. Device Status Text - [id number]. Abutment Nobrpl Call Or Contact Centre Team Leader 3.5x3 - Anne [id number] Implanted:Qty: 1 on 08/23/2014 Hardware e.g. pins/screws /rods Tooth [employer] Description:Device Manufactu rer - [employer]. Body Location - Other. tooth- 28. Device Status Text - [id number]. Screw Nobrpl Curly Taper Call Or Contact Centre Team Leader 3.5x13.0 - Anne [id number] Implanted:Qty: 1 on 08/23/2014 Hardware e.g. pins/screws /rods Tooth [employer] Description:Device Manufactu rer - [employer]. Body Location - Other. tooth- 28. Device Status Text - [id number]. Screw Nobrpl Curly Taper Rp 4.3x10.0 - Anne [id number] Implanted:Qty: 1 on 08/10/2015 Hardware e.g. pins/screws /rods Tooth [employer] Description:Device Manufactu rer - [employer]. Body Location - Other. tooth- 20. Device Status Text - [id number]. Brane Fix Rst Tiunite Rp 4.3 X 13.0 - Anne [id number] Implanted:Qty: 1 on 08/10/2015 Hardware e.g. pins/screws /rods Tooth [employer] Description:Device Manufactu rer - [employer]. Body Location - Other. tooth- 21. Device Status Text - [id number]. Brane Fix Rst Tiunite Rp 4.3 X 13.0 - Anne [id number] Implanted:Qty: 1 on 08/10/2015 Hardware e.g. pins/screws /rods Tooth [employer] Description:Device Manufactu rer - [employer]. Body Location - Other. tooth- 13. Device Status Text - [id number]. Brane Fix Rst Tiunite Rp 4.3 X 13.0 - Anne [id number] Implanted:Qty: 1 on 08/10/2015 Hardware e.g. pins/screws /rods Tooth [employer] Description:Device Manufactu rer - [employer]. Body Location - Other. tooth- 11. Device Status Text - [id number]. Abutment Nobrpl Rp 4.3x3 - Anne [id number] Implanted:Qty: 1 on 02/08/2016 Hardware e.g. pins/screws /rods Tooth [employer] Description:Device Manufactu rer - [employer]. Body Location - Other. tooth- 20. Device Status Text - [id number]. Abutment Nobrpl Rp 5.3x3 - Anne [id number] Implanted:Qty: 1 on 02/08/2016 Hardware e.g. pins/screws /rods Tooth [employer] Description:Device Manufactu rer - [employer]. Body Location - Other. tooth- 13. Device Status Text - [id number]. Abutment Nobrpl Rp 4.3x3 - Anne [id number] Implanted:Qty: 1 on 02/08/2016 Hardware e.g. pins/screws /rods Tooth [employer] Description:Device Manufactu rer - [employer]. Body Location - Other. tooth- 21. Device Status Text - [id number]. Abutment Nobrpl Rp 4.3x3 - Anne [id number] Implanted:Qty: 1 on 02/08/2016 Hardware e.g. pins/screws /rods Tooth [employer] Description:Device Manufactu rer - [employer]. Body Location - Other. tooth- 11. Device Status Text - [id number]. Patch Dura-Guard 4x 4 - Anne [id number] Implanted:Qty: 1 on 08/19/1996 Mesh or Patch [employer] Description:Device Manufactu rer - [employer]. Device Status Text - [id number]. Allograft Bioxclude Chorion 1cm X 2.5cm - Anne [id number] Implanted:Qty: 1 on 01/15/2014 Mesh or Patch Tooth Unknown Description:Device Manufactu rer - Unknown. Body Location - tooth-28. Device Status Text - [id number]. Allograft Bioxclude Chorion 1cm X 2.5cm - Anne [id number] Implanted:Qty: 1 on 01/15/2014 Mesh or Patch Tooth Unknown Description:Device Manufactu rer - Unknown. Body Location - tooth-5. Device Status Text - [id number]. Allograft Bioxclude Chorion 1.5cm X 2cm - Anne [id number] Implanted:Qty: 1 on 08/10/2015 Mesh or Patch Other/Legacy - See Implant Description Unknown Description:Device Manufactu rer - Unknown. Body Location - Other. Left. Device Status Text - [id number]. Procedures Procedure Name Priority Date/Time Associated Diagnosis [...] LIPID PANEL, S Routine 04/19/2023 7:39 AM WHITING CAN WORKER Hyperlipidemia BASIC METABOLIC PANEL, S/P Routine 04/19/2023 7:39 AM WHITING CAN WORKER Hypertension Essential Primary HCV AB SCRN W/REFLEX TO HCV PCR, S Routine 06/15/2016 9:01 AM WHITING CAN WORKER COLONOSCOPY Routine 12/27/2014 US AORTA Routine [...] Generic Rals LAB POCT ORDERABLES - DEVICE [facility] [address] [place] [id number], [facility] CNFL [facility] in [address] [address] * Lipid Panel (04/19/2023 7:39 AM WHITING CAN WORKER) Triglycerides 113 mg/dL 04/19/2023 11:48 AM WHITING CAN WORKER CNFL Comment: ----REFERENCE VALUE---- Normal: <150 mg/dL Borderline High: 150-199 mg/dL High: 200-499 mg/dL Very High: > or =500 mg/dL Cholesterol, Total 144 mg/dL 2022 11:48 AM WHITING CAN WORKER CNFL Comment: ----REFERENCE VALUE---- Desirable: < 200 mg/dL Borderline High: 200 - 239 mg/dL High: > or = 240 mg/dL Cholesterol, LDL, Calculated 76 mg/dL 04/19/2023 12:10 PM WHITING CAN WORKER CNFL Comment: ----REFERENCE VALUE---- Desirable: <100 mg/dL Above Desirable: 100-129 mg/dL Borderline High: 130-159 mg/dL High: 160-189 mg/dL Very High: >=190 mg/dL ----ADDITIONAL INFORMATION---- LDL cholesterol calculated using the Sosa/NIH equation. Cholesterol, HDL 48 >=40 mg/dL 04/19/20 12:10 PM WHITING CAN WORKER CNFL Cholesterol, Non-HDL, Calculated 96 mg/dL 04/19/2023 12:10 PM WHITING CAN WORKER CNFL Comment: ----REFERENCE VALUE---- Desirable: <130 mg/dL Above Desirable: 130-159 mg/dL Borderline High: 160-189 mg/dL High: 190-219 mg/dL Very High: > or =220 mg/dL Fasting (8 HR or more) No 04/19/2023 7:40 AM WHITING CAN WORKER CNFL Blood (Blood, Venous) 04/19/2023 7:39 AM WHITING CAN WORKER 04/19/2023 7:40 AM WHITING CAN WORKER Stefan Salomon M.D. LAB BLOOD ADD-ON [facility] [address] [place] [phone], [facility] CNFL [facility] in [address] [address] * Basic Metabolic Panel (04/19/2023 7:39 AM WHITING CAN WORKER) Potassium, P 4.1 3.6 - 5.2 mmol/L 04/19/2023 11:48 AM WHITING CAN WORKER CNFL Sodium, P 138 135 - 145 mmol/L 04/19/2023 11:48 AM WHITING CAN WORKER CNFL Chloride, P 102 98 - 107 mmol/L 04/19/2023 11:48 AM WHITING CAN WORKER CNFL Bicarbonate, P 23 22 - 29 mmol/L 04/19/2023 11:48 AM WHITING CAN WORKER CNFL Anion Gap, P 13 7 - 15 04/19/2023 11:48 AM WHITING CAN WORKER CNFL BUN (Blood Urea Nitrogen), P 21 8 - 24 mg/dL 04/19/2023 11:48 AM WHITING CAN WORKER CNFL Creatinine 0.87 0.74 - 1.35 mg/dL 04/19/2023 11:48 AM WHITING CAN WORKER CNFL Estimated GFR (eGFR) >90 >=60 mL/min/BSA 04/19/2023 11:48 AM WHITING CAN WORKER CNFL Comment: Estimated GFR calculated using the 2020 CKD_EPI creatinine equation. Calcium, Total, P 9.1 8.8 - 10.2 mg/dL 04/19/2023 11:48 AM WHITING CAN WORKER CNFL Glucose, P 103 70 - 140 mg/dL 04/19/2023 11:48 AM WHITING CAN WORKER CNFL Blood (Blood, Venous) 04/19/2023 7:39 AM WHITING CAN WORKER 04/19/2023 7:40 AM WHITING CAN WORKER Stefan Salomon M.D. LAB BLOOD ADD-ON [facility] [address] [place] [id number], [facility] CNFL [facility] in [address] [address] * HCV Ab w/Reflex to HCV PCR, S (medicare) (06/15/2016 9:01 AM WHITING CAN WORKER) HXHCV Ab [facility] Reactive Negative POWERCHART Comment: Supplemental testing for HCV RNA is ordered to rule out active HCV infection. Ayxkdf-xl-oiwvls ratio is >=1.00 and <8.00. Test Performed by: [facility] - [address] [address] On Site Wastewater Systems Technician: Armando Chavez II, M.D., Ph.D. Blood 06/15/2016 9:01 AM WHITING CAN WORKER Abraham Valle M.D. LAB MICROBIOLOGY - [...] / Desiree Ruelas M.D. - 10/10/2016 EXAM: US AAA Screening Welcome Medicare INDICATION: Welcome to Medicare, tobacco use, HTN COMPARISON: None. FINDINGS: No evidence for abdominal aortic aneurysm. Maximum luminal diameter 2.2 CM. Iliac arteries are unremarkable. IMPRESSION: Normal abdominal aorta Sulaiman Ordaz Jr., R.D.M.S. IMG US PROCEDURES from Last 3 Months or Most Recently Relevant to Health Maintenance Care Teams Counseling Center Manager Relationship Specialty Start Date End Date Stefan Salomon M.D. [address] [place] [phone] PCP - General Family Medicine 07/09/22 Anticoagulation Team 07/09/22
--- OUTSIDE RECORDS SUMMARY | 2024-01-07 08:12 | XMS_ITS | Encounter Summary ---
Author Organization [facility] Address [address] [place] [address] Care Team Providers Care Shipboard Intelligence Analyst Name Role Phone Stefan Salomon M.D. Primary Care Provider [phone] Encounter Details Date Type Department Care Team (Latest Contact Info) Description 10/11/2023 7:16 AM CDT - 10/11/2023 11:59 PM CDT Hospital Encounter Department of Laboratory Medicine in [address] [phone] Stefan Salomon M.D. [address] [place] [phone] Anticoagulant Therapy; Mutation Factor V Leiden Heterozygous [...] How often do you attend congregation or roman catholic serv ices? Never 07/09/2022 [...] Recorded PHQ-2 Score 0 06/12/2023 [facility] of Occupat ional [...] file Gender Identity Male 07/02/2017 9:12 AM TOUCH UP EDGER Sexual Orientation Straight 07/02/2017 9: 12 AM TOUCH UP EDGER documented as of this encounter Medications at [...] Appointment Department of Laboratory Medicine in [address] [phone] Stefan Salomon M.D. [address] [place] [phone] 02/14/2024 9:30 AM CDT Anticoagulation Visit Department of Anticoagulation in [place], [place] [address] [place] [address] Stefan Salomon M.D. [address] [place] [phone] documented as of this encounter Procedures [...] M.D. LAB POCT ORDERABLES - DEVICE [facility] [address] [place] [address], [place] CNFL [facility] in [address] [address] documented in this encounter Visit Diagnoses Diagnosis Anticoagulant Therapy Mutation Factor V Leiden Heterozygous (HCC) Monitoring For Therapeutic Drug Therapy Thrombosis Deep Vein Personal History documented in this encounter Additional Health Concerns Assessment Noted Time PHQ-9 Depression Total Score: 1 06/12/19 24 4:14 PM TOUCH UP EDGER documented as of this encounter Care Teams Shipboard Intelligence Analyst Relationship Specialty Start Date End Date Stefan Salomon M.D. [address] [place] [phone] PCP - General Family Medicine 07/09/22 Anticoagulation Team 07/09/22 documented as of this encounter
--- OUTSIDE RECORDS SUMMARY | 2024-01-07 08:12 | XMS_ITS | Encounter Summary ---
Author Organization [facility] Address [address] [place] [address] Care Team Providers Care Fast Food Crew Member Name Role Phone Stefan Salomon M.D. Primary Care Provider [phone] Reason for Referral * Outpatient (Routine) - Authorized Specialty Diagnoses / Procedures Referred By Piero t Referred To Contact Family Medicine Kolton Soriano P.A.-C., P.A. [address] [place] [phone] [facility] Region Referral ID Status Reason Start Date Expiration Date V isits Requested Visits Authorized [id number] Authorized 10/10/2023 04/10/2025 1 1 Scheduling Instructions 6 month follow up Reason for Visit * Reason Comments Med Refill Encounter Details Date Type Department Care Team (Late st Contact Info) Description 10/10/2023 Refill Department of Family Medicine, [facility], in [address] [phone] Stefan Salomon M.D. [address] [place] [phone] Med Refill Social History Tobacco Use Types [...] How often do you attend anabaptism or holiness serv ices? 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 [address] [place] [phone] 02/14/2024 9:30 AM CDT Anticoagulation Visit Department of Anticoagulation in [address] [phone] Stefan Salomon M.D. [address] [place] [phone] Scheduled Referrals Name Type Priority Associated Diagnoses Orde r Schedule Family Medicine office visit (clinic) Outpatient Referral Routine Expected: 12/11/2023 (Approximate), Expires: 01/09/2025 documented as of this encounter Visit Diagnoses Diagnosis Chronic Pain Syndrome Degeneration Disc Cervical Polyarthralgia documented in this encounter Additional Health Concerns Assessment Noted Time PHQ-9 Depression Total Score: 1 06/12/19 24 4:14 PM DECK ENGINEER documented as of this encounter Care Teams Fast Food Crew Member Relationship Specialty Start Date End Date Stefan Salomon M.D. [phone] [phone] PCP - General Family Medicine 07/09/22 Anticoagulation Team 07/09/22 documented as of this encounter
== END 2024-01-07 08:09 | disposition home or self-care (01) ==
PROVIDERS: PCP Student in an Organized Health Care Education/Training Program; Visit Provider Nurse Practitioner Family
DX: I87.313 Chronic venous hypertension (idiopathic) with ulcer of bilateral lower extremity (principal); I87.2 Venous insufficiency (chronic) (peripheral); L97.322 Non-pressure chronic ulcer of left ankle with fat layer exposed; L97.812 Non-pressure chronic ulcer of other part of right lower leg with fat layer exposed
CPT/HCPCS: 11042; 97597

== ENCOUNTER 2024-01-21 07:59 | Outpatient (CLI) | payer MEDICARE, BC, SELFPAY ==
--- OUTSIDE RECORDS SUMMARY | 2024-01-21 08:02 | XMS_ITS | Encounter Summary ---
Author Organization [facility] Address [address] [place] [address] Care Team Providers Care Engineering Assistant Name Role Phone Stefan Salomon M.D. Primary Care Provider [phone] Reason for Visit * Reason Comments Med Refill Encounter Details Date Type Department Care Team (Late st Contact Info) Description 12/02/2023 Refill Department of Family Medicine, [facility], in [address] [phone] Stefan Salomon M.D. [address] [place] [phone] Med Refill Social History Tobacco Use [...] How often do you attend temple or lutheran serv ices? 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 [address] [place] [phone] 02/14/2024 9:30 AM CDT Anticoagulation Visit Department of Anticoagulation in [place], [place] [address] [place] [address] Setfan Salomon M.D. [address] [place] [phone] documented as of this encounter Visit Diagnoses Diagnosis Chronic Pain Syndrome Degeneration Disc Cervical Polyarthralgia documented in this encounter Additional Health Concerns Assessment Noted Time PHQ-9 Depression Total Score: 1 06/12/19 24 4:14 PM SPEEDBOAT OPERATOR documented as of this encounter Care Teams Engineering Assistant Relationship Specialty Start Date End Date Stefan Salomon M.D. [address] [place] [phone] PCP - General Family Medicine 07/09/22 Anticoagulation Team 07/09/22 documented as of this encounter
--- OUTSIDE RECORDS SUMMARY | 2024-01-21 08:02 | XMS_ITS | Encounter Summary ---
Author Organization [facility] Address [address] [place] [address] Care Team Providers Care Snack Foods Mixer Operator Name Role Phone Stefan Salomon M.D. Primary Care Provider [phone] Reason for Visit * Reason Comments Med Refill Encounter Details Date Type Department Care Team (Late st Contact Info) Description 11/05/2023 Refill Department of Family Medicine, [facility], in [address] [phone] Stefan Salomon M.D. [address] [place] [phone] Med Refill Social History Tobacco Use [...] Answer Date Recorded PHQ-2 Score 0 06/12/2023 [facility] of Occupat ional Health - Occupational [...] file Gender Identity Male 07/02/2017 9:12 AM ENGINEER SYSTEM ADMINISTRATOR Sexual Orientation Straight 07/02/2017 9: 12 AM ENGINEER SYSTEM ADMINISTRATOR documented as of this encounter Miscellaneous Notes [...] Appointment Department of Laboratory Medicine in [address] [phone] Stefan Salomon M.D. [address] [place] [phone] 02/14/2024 9:30 AM CDT Anticoagulation Visit Department of Anticoagulation in [place], [place] [address] [place] [address] Stefan Salomon M.D. [address] [place] [phone] documented as of this encounter Visit Diagnoses Diagnosis Chronic Pain Syndrome Degeneration Disc Cervical Polyarthralgia documented in this encounter Additional Health Concerns Assessment Noted Time PHQ-9 Depression Total Score: 1 06/12/19 24 4:14 PM ENGINEER SYSTEM ADMINISTRATOR documented as of this encounter Care Teams Snack Foods Mixer Operator Relationship Specialty Start Date End Date Stefan Salomon M.D. [address] [place] [phone] PCP - General Family Medicine 07/09/22 Anticoagulation Team 07/09/22 documented as of this encounter
--- OUTSIDE RECORDS SUMMARY | 2024-01-21 08:02 | XMS_ITS | Encounter Summary ---
Author Organization [facility] Address [address] [place] [address] Care Team Providers Care Marketing Programs Manager Name Role Phone Stefan Salomon M.D. Primary Care Provider [phone] Reason for Visit * Outpatient (Routine) - Closed Specialty Diagnoses / Procedures Referred By Piero self Referred To Contact Dermatology Diagnoses Pruritus Crystal Quintero M.D. [address] [place] [phone] [facility] Referral ID Status Reason Start Date Expiration Date Visits Re quested Visits Authorized [id number] Closed 07/25/2023 01/23/2025 1 1 Encounter Details Date Type Department Care Team (Late st Contact Info) Description 10/23/2023 1:20 PM CDT Office Visit Department of Dermatology in [place], [place] [address] [place] [phone] Indira Gold M.D. [address] [place] [phone] Keratosis Seborrheic Inflamed [L82.0] (Primary Dx); [...] How often do you attend mu-ism or uatsdin serv ices? Never 07/09/2022 Do [...] 06/12/2023 [facility] - Occupational Stress Questionnaire [...] file Gender Identity Male 07/02/2017 9:12 AM AIRPLANE GAS TANK LINER ASSEMBLER Sexual Orientation Straight 07/02/2017 9: 12 AM AIRPLANE GAS TANK LINER ASSEMBLER documented as of this encounter Progress Notes * Indira Gold M.D. - 10/23/2023 1:20 PM CDT Dermatology Note - Established Patient Correspondence to: Dr. Gold The patient has been seen and examined with Eileen Nash M.D.. SUBJECTIVE CHIEF COMPLAINT Follow up stasis dermatitis HISTORY OF PRESENT ILLNESS Wesley Bautista is a 72 y.o. male, who presents to [facility] D[facility]atology on 10/23/23 for the above chief complaint. He was last seen by [facility] on 07/25/2023 at which time he [...] Appointment Department of Laboratory Medicine in [address] [phone] Stefan Salomon M.D. [address] [place] [phone] 02/14/2024 9:30 AM CDT Anticoagulation Visit Department of Anticoagulation in [place] [address] [place] [address] Stefan Salomon M.D. [address] [place] [phone] documented as of this encounter Visit Diagnoses Diagnosis Keratosis Seborrheic Inflamed [L82.0]- Primary Pruritus Keratosis Actinic Dermatitis documented in this encounter Additional Health Concerns Assessment Noted Time PHQ-9 Depression Total Score: 1 06/12/19 24 4:14 PM AIRPLANE GAS TANK LINER ASSEMBLER documented as of this encounter Care Teams Marketing Programs Manager Relationship Specialty Start Date End Date Stefan Salomon M.D. [address] [place] [phone] PCP - General Family Medicine 07/09/22 Anticoagulation Team 07/09/22 documented as of this encounter
--- OUTSIDE RECORDS SUMMARY | 2024-01-21 08:02 | XMS_ITS | Encounter Summary ---
Author Organization [facility] Address [address] [place] [address] Care Team Providers Care Ordnance Handler Name Role Phone Stefan Salomon M.D. Primary Care Provider [phone] Reason for Visit * Outpatient (Routine) - Authorized Specialty Diagnoses / Procedures Referred By Contdayana t Referred To Contact Anticoagulation Diagnoses Anticoagulant Therapy Mutation Factor V Leiden Heterozygous (HCC) Monitoring For Therapeutic Drug Therapy Thrombosis Deep Vein Personal History Stefan Salomon M.D. [address] [phone] [facility] Referral ID Status Reason Start Date Expiration Date V isits Requested Visits Authorized [id number] Authorized 02/01/2023 01/31/2026 300 300 Encounter Details Date Type Department Care Team (Latest Contact Info) Description 10/15/2023 3:30 PM CDT Anticoagulation Visit Department of Anticoagulation in [place], [place] [address] [place] [address] Stefan Salomon M.D. [address] [phone] Anticoagulant Therapy [Z79.01] (Primary Dx); [...] How often do you attend yarsani or latter-day serv ices? Never 07/09/2022 Do [...] Answer Date Recorded PHQ-2 Score 0 06/12/2023 [facility] [place] of Occupat ional Health - Occupational [...] file Gender Identity Male 07/02/2017 9:12 AM HEALTH MANAGEMENT CONSULTANT Sexual Orientation Straight 07/02/2017 9: 12 AM HEALTH MANAGEMENT CONSULTANT documented as of this encounter Patient Instructions [...] please call Primary Care Anticoagulation Program at [phone] from 7:30 am to 4:30 pm. Saturday-Saturday [...] if you start any herbal or other ouie-kex-amceikk product (check with your doctor, a nurse, [...] does NOT have atrial fibrillation/flutter, therefore no CHADS2/MIO0DA1-VQKe score calculated. Proceeded to maintenance warfarin dosing and follow-up, but offered patient return for follow-up INR in 6 weeks as 2 consecutive outpatient INRs within range. Additional Info: None Previous INR was therapeutic. Today???s INR is Therapeutic. Dosing and follow up recommendation: Protocol does not apply based on positive exclusion criteria indicated above stating consult required. Consulted Anticoagulation [facility] for plan. Currently bridging: no. INR is [...] Appointment Department of Laboratory Medicine in [address] [phone] Stefan Salomon M.D. [address] [place] [phone] 02/14/2024 9:30 AM CDT Anticoagulation Visit Department of Anticoagulation in [place], [place] [address] [place] [address] Stefan Salomon M.D. [address] [place] [phone] documented as of this encounter Results * INR Reflex, POCT, Blood (11/22/2023 8:01 AM CDT) INR Reflex, POCT, B 2.3 11/22/2023 8:01 AM CDT [facility] Comment: ----ADDITIONAL INFORMATION---- Standard intensity warfarin therapeutic range: 2.0 to 3.0 ?? High intensity warfarin therapeutic range: 2.5 to 3.5 Blood (Blood, Capillary) 11/22/2023 8:01 AM CDT 11/22/2023 8:01 AM CDT Stefan Salomon M.D. LAB POCT ORDERABLES - DEVICE [facility] [address] [place] [address], [place] CNFL [facility] in [address] [address] documented in this encounter Visit Diagnoses Diagnosis Anticoagulant Therapy [Z79.01]- Primary Mutation Factor V Leiden Heterozygous (HCC) Monitoring For Therapeutic Drug Therapy [Z51.81] Thrombosis Deep Vein Personal History documented in this encounter Additional Health Concerns Assessment Noted Time PHQ-9 Depression Total Score: 1 06/12/19 24 4:14 PM HEALTH MANAGEMENT CONSULTANT documented as of this encounter Care Teams Ordnance Handler Relationship Specialty Start Date End Date Stefan Salomon M.D. [address] [place] [phone] PCP - General Family Medicine 07/09/22 Anticoagulation Team 07/09/22 documented as of this encounter
--- OUTSIDE RECORDS SUMMARY | 2024-01-21 08:02 | XMS_ITS | Encounter Summary ---
Author Organization [facility] Address [address] [place] [address] Care Team Providers Care Naval Architect Specialist Name Role Phone Stefan Salomon M.D. Primary Care Provider [phone] Encounter Details Date Type Department Care Team (Latest Contact Info) Description 11/22/2023 7:56 AM CDT - 11/22/2023 11:59 PM CDT Hospital Encounter Department of Laboratory Medicine in [address] [phone] Stefan Salomon M.D. [address] [place] [phone] Anticoagulant Therapy [Z79.01]; Mutation Factor V Leiden [...] How often do you attend taoism or scientologist serv ices? Never 07/09/2022 Do [...] Score 0 06/12/2023 [facility] - Occupational Stress Questionnaire [...] file Gender Identity Male 07/02/2017 9:12 AM COAL TRAMMER Sexual Orientation Straight 07/02/2017 9: 12 AM COAL TRAMMER documented as of this encounter Medications at [...] CDT Appointment Department of Laboratory Medicine in [address] [phone] Stefan Salomon M.D. [address] [place] [phone] 02/14/2024 9:30 AM CDT Anticoagulation Visit Department of Anticoagulation in [place], [place] [address] [place] [address] Stefan Salomon M.D. [address] [place] [phone] documented as of this encounter Procedures Procedure [...] POCT, B 2.3 11/22/2023 8:01 AM CDT [facility] Comment: ----ADDITIONAL INFORMATION---- Standard intensity warfarin therapeutic range: 2.0 to 3.0 ?? High intensity warfarin therapeutic range: 2.5 to 3.5 Blood (Blood, Capillary) 11/22/2023 8:01 AM CDT 11/22/2023 8:01 AM CDT Stefan Salomon M.D. LAB POCT ORDERABLES - DEVICE [facility] [address] [place] [address], [place] CNFL [facility] in [address] [address] documented in this encounter Visit Diagnoses Diagnosis Anticoagulant Therapy [Z79.01] Mutation Factor V Leiden Heterozygous (HCC) Monitoring For Therapeutic Drug Therapy [Z51.81] Thrombosis Deep Vein Personal History documented in this encounter Additional Health Concerns Assessment Noted Time PHQ-9 Depression Total Score: 1 06/12/19 24 4:14 PM COAL TRAMMER documented as of this encounter Care Teams Naval Architect Specialist Relationship Specialty Start Date End Date Stefan Salomon M.D. [address] [phone] PCP - General Family Medicine 07/09/22 Anticoagulation Team 07/09/22 documented as of this encounter
--- OUTSIDE RECORDS SUMMARY | 2024-01-21 08:02 | XMS_ITS | Referral Summary ---
Author Organization [facility] Address [address] [place] [address] Care Team Providers Care Extended Day Teacher Name Role Phone Stefan Salomon M.D. Primary Care Provider [phone] Source Comments Patient records contain information from all sites at [facility]. For routine questions regarding patient records, call [phone] during business hours, M-F 8:00 AM - 5:00 PM Central Time. Record requests for emergency care only can be directed to [phone] at any time.[facility] Encounters Date Type Department Care Team Description 01/03/2024 7:11 AM CDT - 01/03/2024 11:59 PM CDT Hospital Encounter Department of Laboratory Medicine in [address] [phone] Stefan Salomon M.D. Anticoagulant Therapy [Z79.01]; Mutation Factor V Leiden Heterozygous (HCC); Monitoring For Therapeutic Drug Therapy [Z51.81]; Thrombosis Deep Vein Personal History Discharge Disposition: Home or Self Care 01/03/2024 9:30 AM CDT Anticoagulation Visit Department of Anticoagulation in [place], [place] [address] [place] [address] Stefan Salomon M.D. Mutation Factor V Leiden Heterozygous (HCC) (Primary Dx); Anticoagulant Therapy; Monitoring For Therapeutic Drug Therapy; Thrombosis Deep Vein Personal History 12/02/2023 Refill Department of Family Medicine, [facility], in [address] [phone] Stefan Salomon M.D. Med Refill 11/26/2023 8:00 AM CDT Anticoagulation Visit Department of Anticoagulation in [place], [place] [address] [place] [address] Stefan Salomon M.D. Anticoagulant Therapy [Z79.01] (Primary Dx); Mutation Factor V Leiden Heterozygous (HCC); Monitoring For Therapeutic Drug Therapy [Z51.81]; Thrombosis Deep Vein Personal History 11/22/2023 7:56 AM CDT - 11/22/2023 11:59 PM CDT Hospital Encounter Department of Laboratory Medicine in [address] [phone] Stefan Salomon M.D. Anticoagulant Therapy [Z79.01]; Mutation Factor V Leiden Heterozygous (HCC); Monitoring For Therapeutic Drug Therapy [Z51.81]; Thrombosis Deep Vein Personal History Discharge Disposition: Home or Self Care 11/05/2023 Refill Department of Family Medicine, [facility], in [address] [phone] Stefan Salomon M.D. Med Refill 10/23/2023 1:20 PM CDT Office Visit Department of Dermatology in [address] [place] [phone] Indira Gold M.D. Keratosis Seborrheic Inflamed [L82.0] (Primary Dx); Pruritus; Keratosis Actinic; Dermatitis from Last 3 Months Allergies Active Allergy Reactions Criticality Noted Date Comments Atorvastatin Myalgia 02/08/2017 Leg Pain/Cramps Ptmxtpx-Skw-Jcv Reductase Inhibitors Other (see comments) 09/10/2022 Medications [...] for pain 240 tablet 4 Active traMADoL (Ultram) 50 mg tabletIndications :Chronic Pain/Nonacute Pain Take 1-2 tablets (50-100 mg total) by mouth every 6 (six) hours as needed for pain Indications: Chronic Pain/Nonacute Pain. for pain 240 tablet 4 01/09/20 24 Discontinu ed(Reorder ) Active Problems Problem [...] Generalized 11/18/2011 Overview (07/02/2017): Saw Neurologist at [facility] on [...] How often do you attend presybeterian or jewish serv ices? Never 07/09/2022 Do [...] file Gender Identity Male 07/02/2017 9:12 AM TILE SETTER Sexual Orientation Straight 07/02/2017 9: 12 AM TILE SETTER Last Filed Vital Signs Vital Sign Reading Time Taken Comments Blood Pressure 148/82 06/12/2023 4:23 PM TILE SETTER Pulse 63 06/12/2023 4:23 PM TILE SETTER Temperature 36.6 ??C (97.9 ??F) 06/12/2023 4:23 PM CS T Respiratory Rate 18 06/12/2023 4:23 PM TILE SETTER Oxygen Saturation 94% 06/12/2023 4:23 PM TILE SETTER Inhaled Oxygen Concentration - - Weight 95.6 kg (210 lb 12.2 oz) 06/12/2023 4:23 PM TILE SETTER Height 176.5 cm (5' 9.49) 08/01/2022 9:59 AM CS T Body Mass Index 30.69 08/01/2022 9:59 AM TILE SETTER Plan of Treatment Upcoming Encounters Date Type Department Care Team (Latest Contact Info) Description 02/14/2024 8:50 AM CDT Appointment Department of Laboratory Medicine in [address] [phone] Stefan Salomon M.D. [address] [place] [phone] 02/14/2024 9:30 AM CDT Anticoagulation Visit Department of Anticoagulation in [place], [place] [address] [place] [address] Stefan Salomon M.D. [address] [place] [phone] Medical Devices Implanted Type Area Distance Education Faculty Liaison Device Identifier Shelf Expiration Date Model / Serial / Lot Mineralized Cancellous Bone 2.0 - Anne [id number] Implanted:Qty: 1 on 08/10/2015 Bone or Tissue Tooth [employer] Description:Device Manufactu rer - [employer]. Body Location - Other. tooth-13. Device Status Text - [id number]. Hardware E.G. Pins/Screws/Rk s Hardware e.g. pins/screws /rods Mouth Abutment Nobrpl Rp 4.3x5 - Anne [id number] Implanted:Qty: 1 on 07/03/2007 Hardware e.g. pins/screws /rods Tooth [employer] Description:Device Manufactu rer - [employer]. Body Location - Tooth 5. Device Status Text - [id number]. Screw Rst Curly Taper Rp 4.3x13.0 - Anne [id number] Implanted:Qty: 1 on 07/03/2007 Hardware e.g. pins/screws /rods Tooth [employer] Description:Device Manufactu rer - [employer]. Body Location - Tooth 5. Device Status Text - [id number]. Screw Nobrpl Curly Tap Chef De Froid 3.5x11.5 - Anne [id number] Implanted:Qty: 1 on 03/03/2012 Hardware e.g. pins/screws /rods Tooth [employer] Description:Device Manufactu rer - [employer]. Body Location - Tooth 29. Device Status Text - [id number]. Abutment Nobrpl Chef De Froid 3.5x5 - Anne [id number] Implanted:Qty: 1 on 03/03/2012 Hardware e.g. pins/screws /rods Tooth [employer] Description:Device Manufactu rer - [employer]. Body Location - Tooth 29. Device Status Text - [id number]. Abutment Nobrpl Chef De Froid 3.5x3 - Anne [id number] Implanted:Qty: 1 on 08/23/2014 Hardware e.g. pins/screws /rods Tooth [employer] Description:Device Manufactu rer - [employer]. Body Location - Other. tooth- 28. Device Status Text - [id number]. Abutment Nobrpl Chef De Froid 3.5x3 - Anne [id number] Implanted:Qty: 1 on 08/23/2014 Hardware e.g. pins/screws /rods Tooth [employer] Description:Device Manufactu rer - [employer]. Body Location - Other. tooth- 28. Device Status Text - [id number]. Screw Nobrpl Curly Taper Chef De Froid 3.5x13.0 - Anne [id number] Implanted:Qty: 1 on 08/23/2014 Hardware e.g. pins/screws /rods Tooth [employer] Description:Device Manufactu rer - [employer]. Body Location - Other. tooth- 28. Device Status Text - [id number]. Screw Nobrpl Curly Taper Rp 4.3x10.0 - Anne [id number] Implanted:Qty: 1 on 08/10/2015 Hardware e.g. pins/screws /rods Tooth [employer] Description:Device Manufactu rer - [employer]. Body Location - Other. tooth- 20. Device Status Text - [id number]. Brane Fix Rst Tiunite Rp 4.3 X 13.0 - Anne [id number] Implanted:Qty: 1 on 08/10/2015 Hardware e.g. pins/screws /rods Tooth [employer] Description:Device Manufactu rer - [employer]. Body Location - Other. tooth- 21. Device Status Text - [id number]. Brane Fix Rst Tiunite Rp 4.3 X 13.0 - Anne [id number] Implanted:Qty: 1 on 08/10/2015 Hardware e.g. pins/screws /rods Tooth [employer] Description:Device Manufactu rer - [employer]. Body Location - Other. tooth- 13. Device Status Text - [id number]. Brane Fix Rst Tiunite Rp 4.3 X 13.0 - Anne [id number] Implanted:Qty: 1 on 08/10/2015 Hardware e.g. pins/screws /rods Tooth [employer] Description:Device Manufactu rer - [employer]. Body Location - Other. tooth- 11. Device Status Text - [id number]. Abutment Nobrpl Rp 4.3x3 - Anne [id number] Implanted:Qty: 1 on 02/08/2016 Hardware e.g. pins/screws /rods Tooth [employer] Description:Device Manufactu rer - [employer]. Body Location - Other. tooth- 20. Device Status Text - [id number]. Abutment Nobrpl Rp 5.3x3 - Anne [id number] Implanted:Qty: 1 on 02/08/2016 Hardware e.g. pins/screws /rods Tooth [employer] Description:Device Manufactu rer - [employer]. Body Location - Other. tooth- 13. Device Status Text - [id number]. Abutment Nobrpl Rp 4.3x3 - Anne [id number] Implanted:Qty: 1 on 02/08/2016 Hardware e.g. pins/screws /rods Tooth [employer] Description:Device Manufactu rer - [employer]. Body Location - Other. tooth- 21. Device Status Text - [id number]. Abutment Nobrpl Rp 4.3x3 - Anne [id number] Implanted:Qty: 1 on 02/08/2016 Hardware e.g. pins/screws /rods Tooth [employer] Description:Device Manufactu rer - [employer]. Body Location - Other. tooth- 11. Device Status Text - [id number]. Patch Dura-Guard 4x 4 - Anne [id number] Implanted:Qty: 1 on 08/19/1996 Mesh or Patch [employer] Description:Device Manufactu rer - [employer]. Device Status Text - [id number]. Allograft Bioxclude Chorion 1cm X 2.5cm - Anne [id number] Implanted:Qty: 1 on 01/15/2014 Mesh or Patch Tooth Unknown Description:Device Manufactu rer - Unknown. Body Location - tooth-28. Device Status Text - [id number]. Allograft Bioxclude Chorion 1cm X 2.5cm - Anne [id number] Implanted:Qty: 1 on 01/15/2014 Mesh or Patch Tooth Unknown Description:Device Manufactu rer - Unknown. Body Location - tooth-5. Device Status Text - [id number]. Allograft Bioxclude Chorion 1.5cm X 2cm - [employer] [id number] Implanted:Qty: 1 on 08/10/2015 Mesh or Patch Other/Legacy - See Implant Description Unknown Description:Device Manufactu rer - Unknown. Body Location - Other. Left. Device Status Text - [id number]. Procedures Procedure Name Priority Date/Time Associated Diagnosis Comments INR REFLEX, POCT, B Routine 01/03/2024 7 :17 AM CDT INR REFLEX, POCT, B Routine 11/22/2023 8 :01 AM CDT Anticoagulant Therapy [Z79.01] Mutation Factor V Leiden Heterozygous (HCC) Monitoring For Therapeutic Drug Therapy [Z51.81] Thrombosis Deep Vein Personal History LIPID PANEL, S Routine 04/19/2023 7:39 AM TILE SETTER Hyperlipidemia BASIC METABOLIC PANEL, S/P Routine 04/19/2023 7:39 AM TILE SETTER Hypertension Essential Primary HCV AB SCRN W/REFLEX TO HCV PCR, S Routine 06/15/2016 9:01 AM TILE SETTER COLONOSCOPY Routine 12/27/2014 US AORTA Routine 11/09/2014 8:30 AM CDT from Last 3 Months or Most Recently Relevant to Health Maintenance Results * INR Reflex, POCT, Blood (01/03/2024 7:17 AM CDT) Only the most recent of2 resultswithin the time period is included. INR Reflex, POCT, B 2.0 01/03/2024 7:17 AM CDT CNFL Comment: ----ADDITIONAL INFORMATION---- Standard intensity warfarin therapeutic range: 2.0 to 3.0 ?? High intensity warfarin therapeutic range: 2.5 to 3.5 Blood 01/03/2024 7:17 AM CDT 01/03/2024 7:19 AM CDT Generic Rals LAB POCT ORDERABLES - DEVICE Performing Organization Address City/[facility] Co de Phone Number [facility] [address] [place] [address], [place] CNFL [facility] in [address] [address] * Lipid Panel (04/19/2023 7:39 AM TILE SETTER) Triglycerides 113 mg/dL 04/19/2023 11:48 AM TILE SETTER [facility] Comment: ----REFERENCE VALUE---- Normal: <150 mg/dL Borderline High: 150-199 mg/dL High: 200-499 mg/dL Very High: > or =500 mg/dL Cholesterol, Total 144 mg/dL 2022 11:48 AM TILE SETTER CNFL Comment: ----REFERENCE VALUE---- Desirable: < 200 mg/dL Borderline High: 200 - 239 mg/dL High: > or = 240 mg/dL Cholesterol, LDL, Calculated 76 mg/dL 04/19/2023 12:10 PM TILE SETTER CNFL Comment: ----REFERENCE VALUE---- Desirable: <100 mg/dL Above Desirable: 100-129 mg/dL Borderline High: 130-159 mg/dL High: 160-189 mg/dL Very High: >=190 mg/dL ----ADDITIONAL INFORMATION---- LDL cholesterol calculated using the Sosa/NIH equation. Cholesterol, HDL 48 >=40 mg/dL 04/19/20 12:10 PM TILE SETTER CNFL Cholesterol, Non-HDL, Calculated 96 mg/dL 04/19/2023 12:10 PM TILE SETTER CNFL Comment: ----REFERENCE VALUE---- Desirable: <130 mg/dL Above Desirable: 130-159 mg/dL Borderline High: 160-189 mg/dL High: 190-219 mg/dL Very High: > or =220 mg/dL Fasting (8 HR or more) No 04/19/2023 7:40 AM TILE SETTER CNFL Blood (Blood, Venous) 04/19/2023 7:39 AM TILE SETTER 04/19/2023 7:40 AM TILE SETTER Stefan Salomon M.D. LAB BLOOD ADD-ON [facility] [address] [place] [address], [place] CNFL [facility] in [address] [address] * Basic Metabolic Panel (04/19/2023 7:39 AM TILE SETTER) Potassium, P 4.1 3.6 - 5.2 mmol/L 04/19/2023 11:48 AM TILE SETTER CNFL Sodium, P 138 135 - 145 mmol/L 04/19/2023 11:48 AM TILE SETTER CNFL Chloride, P 102 98 - 107 mmol/L 04/19/2023 11:48 AM TILE SETTER CNFL Bicarbonate, P 23 22 - 29 mmol/L 04/19/2023 11:48 AM TILE SETTER CNFL Anion Gap, P 13 7 - 15 04/19/2023 11:48 AM TILE SETTER CNFL BUN (Blood Urea Nitrogen), P 21 8 - 24 mg/dL 04/19/2023 11:48 AM TILE SETTER CNFL Creatinine 0.87 0.74 - 1.35 mg/dL 04/19/2023 11:48 AM TILE SETTER CNFL Estimated GFR (eGFR) >90 >=60 mL/min/BSA 04/19/2023 11:48 AM TILE SETTER CNFL Comment: Estimated GFR calculated using the 2020 CKD_EPI creatinine equation. Calcium, Total, P 9.1 8.8 - 10.2 mg/dL 04/19/2023 11:48 AM TILE SETTER CNFL Glucose, P 103 70 - 140 mg/dL 04/19/2023 11:48 AM TILE SETTER CNFL Blood (Blood, Venous) 04/19/2023 7:39 AM TILE SETTER 04/19/2023 7:40 AM TILE SETTER Stefan Salomon M.D. LAB BLOOD ADD-ON [facility] [address] [place] [address], [place] CNFL [facility] in [address] [address] * HCV Ab w/Reflex to HCV PCR, S (medicare) (06/15/2016 9:01 AM TILE SETTER) HXHCV Ab Scn-Molina Reactive Negative POWERCHART Comment: Supplemental testing for HCV RNA is ordered to rule out active HCV infection. Lzbenn-hz-amoood ratio is >=1.00 and <8.00. Test Performed by: [facility] - [address] [address] Athletic Gear Custodian: Armando Chavez II, M.D., Ph.D. Blood 06/15/2016 9:01 AM TILE SETTER Abraham Valle M.D. LAB MICROBIOLOGY - B [...] Recently Relevant to Health Maintenance Care Teams Extended Day Teacher Relationship Specialty Start Date End Date Stefan Salomon M.D. [address] [place] [phone] PCP - General Family Medicine 07/09/22 Anticoagulation Team 07/09/22
--- OUTSIDE RECORDS SUMMARY | 2024-01-21 08:02 | XMS_ITS ---
Author Organization [facility] Address [address] [place] [address] Care Team Providers Care Athletic Gear Custodian Name Role Phone Unavailable Unavailable Unavailable Surgery Details Not on file Complications Check Surgery Details section. Procedure Estimated Blood Loss Check Surgery Details section. Procedure Findings Check Surgery Details section. Procedure Specimens Taken Check Surgery Details section.
--- OUTSIDE RECORDS SUMMARY | 2024-01-21 08:02 | XMS_ITS | Clinical Summary ---
Author Organization [facility] [employer] [facility] Address [place], [place] [address] Care Team Providers Care Slicing Machine Operator/Tender Name Role Phone Yue Alonso Thomasmedhat [facility] [...] extremity 07/13/2016 Overview: Overview: [facility] Neu[facility] [...] Comments Blood Pressure 117/67 05/13/2021 2:55 PM ROOM SERVICE [facility] Pulse 103 05/13/2021 2:55 PM ROOM [facility] Temperature 36.9 ??C (98.4 ??F) 05/13/2021 2:55 PM CS T Respiratory Rate 18 05/13/2021 2:55 PM ROOM SERVICE [facility] Oxygen Saturation 99% 05/13/2021 2:55 PM ROOM [facility] Inhaled Oxygen Concentration - - Weight 97.8 kg (215 lb 9.8 oz) 07/04/2022 11:35 AM ROOM SERVICE [facility] Height 175.7 cm (5' 9.17) 07/04/2022 11:[address] Body Mass Index 31.68 07/04/2022 11:35 AM ROOM SERVICE [facility] Plan of Treatment Health Maintenance Due Date [...] 8:51 AM 12/27/2014 12:46 PM Care Teams Slicing Machine Operator/Tender Relationship Specialty Start Date End Date Yue Alonso MBBS [address] [place] [address] [place] [address] PCP - General Family Practice 06/26/22
--- OUTSIDE RECORDS SUMMARY | 2024-01-21 08:02 | XMS_ITS | Encounter Summary ---
Author Organization [facility] Address [address] [place] [address] Care Team Providers Care Cardiopulmonary Specialist Name Role Phone Stefan Salomon M.D. Primary Care Provider [phone] Reason for Visit * Outpatient (Routine) - Authorized Specialty Diagnoses / Procedures Referred By Contdayana t Referred To Contact Anticoagulation Diagnoses Anticoagulant Therapy Mutation Factor V Leiden Heterozygous (HCC) Monitoring For Therapeutic Drug Therapy Thrombosis Deep Vein Personal History Stefan Salomon M.D. [address] [phone] [facility] Referral ID Status Reason Start Date Expiration Date V isits Requested Visits Authorized [id number] Authorized 02/01/2023 01/31/2026 300 300 Encounter Details Date Type Department Care Team (Latest Contact Info) Description 11/26/2023 8:00 AM CDT Anticoagulation Visit Department of Anticoagulation in [place], [place] [address] [place] [address] Stefan Salomon M.D. [address] [phone] Anticoagulant Therapy [Z79.01] (Primary Dx); [...] How often do you attend scientologist or pentecostalism serv ices? Never 07/09/2022 Do [...] Answer Date Recorded PHQ-2 Score 0 06/12/2023 [facility] [place] [facility] of Occupat ional Health - Occupational Stress [...] file Gender Identity Male 07/02/2017 9:12 AM INCINERATOR ATTENDANT Sexual Orientation Straight 07/02/2017 9: 12 AM INCINERATOR ATTENDANT documented as of this encounter Patient Instructions [...] please call Primary Care Anticoagulation Program at [phone] from 7:30 am to 4:30 pm. Saturday-Saturday [...] if you start any herbal or other xgcy-pks-pzgylvx product (check with your doctor, a nurse, [...] does NOT have atrial fibrillation/flutter, therefore no CHADS2/TSA2GD6-QFPg score calculated. Proceeded to maintenance warfarin dosing and follow-up, but offered patient return for follow-up INR in 8 weeks as 3 consecutive outpatient INRs within range. Additional Info: None Previous INR was therapeutic. Today???s INR is Therapeutic. Dosing and follow up recommendation: Protocol does not apply based on positive exclusion criteria indicated above stating consult required. Consulted Anticoagulation [facility] for plan. Currently bridging: no. INR is therapeutic/supratherapeutic. Additional dosing or follow-up information: Next INR in 6 weeks per consult with Anticoagulation [facility] Provider consulted: Essie Harris-Anticoagulation [facility] Pt is on injectable anticoagulant: [...] Appointment Department of Laboratory Medicine in [address] [phone] Stefan Salomon M.D. [address] [place] [phone] 02/14/2024 9:30 AM CDT Anticoagulation Visit Department of Anticoagulation in [place] [address] [place] [address] Stefan Salomon M.D. [address] [place] [phone] documented as of this encounter Visit Diagnoses Diagnosis Anticoagulant Therapy [Z79.01]- Primary Mutation Factor V Leiden Heterozygous (HCC) Monitoring For Therapeutic Drug Therapy [Z51.81] Thrombosis Deep Vein Personal History documented in this encounter Additional Health Concerns Assessment Noted Time PHQ-9 Depression Total Score: 1 06/12/19 24 4:14 PM INCINERATOR ATTENDANT documented as of this encounter Care Teams Cardiopulmonary Specialist Relationship Specialty Start Date End Date Stefan Salomon M.D. [address] [place] [phone] PCP - General Family Medicine 07/09/22 Anticoagulation Team 07/09/22 documented as of this encounter
--- OUTSIDE RECORDS SUMMARY | 2024-01-21 08:02 | XMS_ITS | Encounter Summary ---
Author Organization [facility] Address [address] [place] [address] Care Team Providers Care Shoe Cementer Name Role Phone Stefan Salomon M.D. Primary Care Provider [phone] Encounter Details Date Type Department Care Team (Latest Contact Info) Description 01/03/2024 7:11 AM CDT - 01/03/2024 11:59 PM CDT Hospital Encounter Department of Laboratory Medicine in [address] [phone] Stefan Salomon M.D. [address] [place] [phone] Anticoagulant Therapy [Z79.01]; Mutation Factor V Leiden [...] How often do you attend synagogue or congregational serv ices? Never 07/09/2022 Do [...] Answer Date Recorded PHQ-2 Score 0 06/12/2023 [facility] - Occupational Stress Questionnaire [...] file Gender Identity Male 07/02/2017 9:12 AM ROUGHER OPERATOR Sexual Orientation Straight 07/02/2017 9: 12 AM ROUGHER OPERATOR documented as of this encounter Medications [...] Anticoagulation Clinic. 118 tablet 3 09/24/2023 traMADoL (Ultram) 50 mg tabletIndications:C hronic Pain/Nonacute Pain Take 1-2 tablets (50-100 mg total) by mouth every 6 (six) hours as needed for pain Indications: Chronic Pain/Nonacute Pain. for pain 240 tablet 12/09/2023 01/09/2024 documented as of this encounter Plan of Treatment Upcoming Encounters Date Type Department Care Team (Latest Contact Info) Description 02/14/2024 8:50 AM CDT Appointment Department of Laboratory Medicine in [address] [phone] Stefan Salomon M.D. [address] [place] [phone] 02/14/2024 9:30 AM CDT Anticoagulation Visit Department of Anticoagulation in [place], [place] [address] [place] [address] Stefan Salomon M.D. [address] [place] [phone] documented as of this encounter Procedures Procedure [...] Generic Rals LAB POCT ORDERABLES - DEVICE [facility] [address] [place] [address], [facility] CNFL [facility] in [address] [address] documented in this encounter Visit Diagnoses Diagnosis Anticoagulant Therapy [Z79.01] Mutation Factor V Leiden Heterozygous (HCC) Monitoring For Therapeutic Drug Therapy [Z51.81] Thrombosis Deep Vein Personal History documented in this encounter Additional Health Concerns Assessment Noted Time PHQ-9 Depression Total Score: 1 06/12/19 24 4:14 PM ROUGHER OPERATOR documented as of this encounter Care Teams Shoe Cementer Relationship Specialty Start Date End Date Stefan Salomon M.D. [address] [phone] PCP - General Family Medicine 07/09/22 Anticoagulation Team 07/09/22 documented as of this encounter
--- OUTSIDE RECORDS SUMMARY | 2024-01-21 08:02 | XMS_ITS | Clinical Summary ---
Author Organization [facility] Address [address] [place] [address] Care Team Providers Care Heavy Equipment Field Mechanic Name Role Phone Stefan Salomon M.D. Primary Care Provider [phone] Source Comments Patient records contain information from all sites at [facility]. For routine questions regarding patient records, call [phone] during business hours, M-F 8:00 AM - 5:00 PM Central Time. Record requests for emergency care only can be directed to [phone] at any time.[facility] Allergies Active Allergy Reactions Criticality Noted Date Comments Atorvastatin Myalgia 02/08/2017 Leg Pain/Cramps Heasvcf-Gon-Pob Reductase Inhibitors Other (see comments) 09/10/2022 Medications [...] CDT Anticoagulation Visit Department of Anticoagulation in [address] [phone] Stefan Salomon M.D. Mutation Factor V Leiden Heterozygous (HCC) (Primary Dx); Anticoagulant Therapy; Monitoring For Therapeutic Drug Therapy; Thrombosis Deep Vein Personal History 01/03/2024 7:11 AM CDT - 01/03/2024 11:59 PM CDT Hospital Encounter Department of Laboratory Medicine in [address] [phone] Stefan Salomon M.D. Anticoagulant Therapy [Z79.01]; Mutation Factor V Leiden Heterozygous (HCC); Monitoring For Therapeutic Drug Therapy [Z51.81]; Thrombosis Deep Vein Personal History Discharge Disposition: Home or Self Care 12/02/2023 Refill Department of Family Medicine, [facility], in [address] [phone] Stefan Salomon M.D. Med Refill 11/26/2023 8:00 AM CDT Anticoagulation Visit Department of Anticoagulation in [place], [place] [address] [place] [address] Stefan Salomon M.D. Anticoagulant Therapy [Z79.01] (Primary Dx); Mutation Factor V Leiden Heterozygous (HCC); Monitoring For Therapeutic Drug Therapy [Z51.81]; Thrombosis Deep Vein Personal History 11/22/2023 7:56 AM CDT - 11/22/2023 11:59 PM CDT Hospital Encounter Department of Laboratory Medicine in [address] [phone] Stefan Salomon M.D. Anticoagulant Therapy [Z79.01]; Mutation Factor V Leiden Heterozygous (HCC); Monitoring For Therapeutic Drug Therapy [Z51.81]; Thrombosis Deep Vein Personal History Discharge Disposition: Home or Self Care 11/05/2023 Refill Department of Family Medicine, [facility], in [address] [phone] Stefan Salomon M.D. Med Refill 10/23/2023 1:20 PM CDT Office Visit Department of Dermatology in [place], [place] [facility] [address] [place] [phone] Indira Gold M.D. Keratosis Seborrheic Inflamed [L82.0] (Primary Dx); Pruritus; Keratosis Actinic; Dermatitis from Last 3 Months Immunizations Name Administration [...] kristal yes- in 1973 Anticoagulant therapy Sister vkayley Eczema Sister vkayley Factor V Leiden Sister vkayley Hypertension Sister vydlan Leukemia Sister vkayley Relation Name Status Comments Brother jackson Daughter [...] How often do you attend synagogue or restorationism serv ices? Never 07/09/2022 Do [...] Answer Date Recorded PHQ-2 Score 0 06/12/2023 [facility] [place] of Occupat ional Health - Occupational Stress [...] file Gender Identity Male 07/02/2017 9:12 AM REVERSE LOGISTICS ANALYST Sexual Orientation Straight 07/02/2017 9: 12 AM REVERSE LOGISTICS ANALYST Last Filed Vital Signs Vital Sign Reading Time Taken Comments Blood Pressure 148/82 06/12/2023 4:23 PM REVERSE LOGISTICS ANALYST Pulse 63 06/12/2023 4:23 PM REVERSE LOGISTICS ANALYST Temperature 36.6 ??C (97.9 ??F) 06/12/2023 4:23 PM CS T Respiratory Rate 18 06/12/2023 4:23 PM REVERSE LOGISTICS ANALYST Oxygen Saturation 94% 06/12/2023 4:23 PM REVERSE LOGISTICS ANALYST Inhaled Oxygen Concentration - - Weight 95.6 kg (210 lb 12.2 oz) 06/12/2023 4:23 PM REVERSE LOGISTICS ANALYST Height 176.5 cm (5' 9.49) 08/01/2022 9:59 AM CS T Body Mass Index 30.69 08/01/2022 9:59 AM REVERSE LOGISTICS ANALYST Plan of Treatment Upcoming Encounters Date Type Department Care Team (Latest Contact Info) Description 02/14/2024 8:50 AM CDT Appointment Department of Laboratory Medicine in [address] [phone] Stefan Salomon M.D. [address] [place] [phone] 02/14/2024 9:30 AM CDT Anticoagulation Visit Department of Anticoagulation in [place], [place] [address] [place] [address] Stefan Salomon M.D. [address] [place] [phone] Health Maintenance Due Date Last Done Comments CT Colonography 1950 Cologuard 1950 Zoster Vaccines (1 of 2) 1998 Colonoscopy 12/28/2019 12/27/2014 Colorectal Cancer Surveillance 12/28/2019 Visit: Medicare Annual Wellness 07/10/2023 3 Office Visit for Blood Press ure Check / Re-check 09/11/2023 06/12/2023 COVID-19 Vaccine (6 2022-2 4 season) 2023 05/23/2023, 04/21/2022, 04/14/2021, Additional history exists Opioid Risk Tool (ORT) 01/09/2024 07/09/2022 PEG assessment for Opioid therapy 01/09/2024 024 Controlled Substance Monitoring 02/24/2024 3 Influenza [...] Completed 06/12/2023 Medical Devices Implanted Type Area Bread Distributor Device Identifier Shelf Expiration Date Model / Serial / Lot Mineralized Cancellous Bone 2.0 - Anne [id number] Implanted:Qty: 1 on 08/10/2015 Bone or Tissue [email or web address] Description:Device Manufactu rer - [employer]. Body Location - Other. tooth-13. Device Status Text - [id number]. Hardware E.G. Pins/Screws/Rk s Hardware e.g. pins/screws /rods Mouth Abutment Nobrpl Rp 4.3x5 - Anne [id number] Implanted:Qty: 1 on 07/03/2007 Hardware e.g. pins/screws /rods Tooth [employer] Description:Device Manufactu rer - [employer]. Body Location - Tooth 5. Device Status Text - [id number]. Screw Rst Curly Taper Rp 4.3x13.0 - Anne [id number] Implanted:Qty: 1 on 07/03/2007 Hardware e.g. pins/screws /rods Tooth [employer] Description:Device Manufactu rer - [employer]. Body Location - Tooth 5. Device Status Text - [id number]. Screw Nobrpl Curly Tap Threading Machine Setter 3.5x11.5 - Anne [id number] Implanted:Qty: 1 on 03/03/2012 Hardware e.g. pins/screws /rods Tooth [employer] Description:Device Manufactu rer - [employer]. Body Location - Tooth 29. Device Status Text - [id number]. Abutment Nobrpl Threading Machine Setter 3.5x5 - Anne [id number] Implanted:Qty: 1 on 03/03/2012 Hardware e.g. pins/screws /rods Tooth [employer] Description:Device Manufactu rer - [employer]. Body Location - Tooth 29. Device Status Text - [id number]. Abutment Nobrpl Threading Machine Setter 3.5x3 - Anne [id number] Implanted:Qty: 1 on 08/23/2014 Hardware e.g. pins/screws /rods Tooth [employer] Description:Device Manufactu rer - [employer]. Body Location - Other. tooth- 28. Device Status Text - [id number]. Abutment Nobrpl Threading Machine Setter 3.5x3 - Anne [id number] Implanted:Qty: 1 on 08/23/2014 Hardware e.g. pins/screws /rods Tooth [employer] Description:Device Manufactu rer - [employer]. Body Location - Other. tooth- 28. Device Status Text - [id number]. Screw Nobrpl Curly Taper Threading Machine Setter 3.5x13.0 - Anne [id number] Implanted:Qty: 1 on 08/23/2014 Hardware e.g. pins/screws /rods Tooth [employer] Description:Device Manufactu rer - [employer]. Body Location - Other. tooth- 28. Device Status Text - [id number]. Screw Nobrpl Curly Taper Rp 4.3x10.0 - Anne [id number] Implanted:Qty: 1 on 08/10/2015 Hardware e.g. pins/screws /rods Tooth [employer] Description:Device Manufactu rer - [employer]. Body Location - Other. tooth- 20. Device Status Text - [id number]. Brane Fix Rst Tiunite Rp 4.3 X 13.0 - Anne [id number] Implanted:Qty: 1 on 08/10/2015 Hardware e.g. pins/screws /rods Tooth [employer] Description:Device Manufactu rer - [employer]. Body Location - Other. tooth- 21. Device Status Text - [id number]. Brane Fix Rst Tiunite Rp 4.3 X 13.0 - Anne [id number] Implanted:Qty: 1 on 08/10/2015 Hardware e.g. pins/screws /rods Tooth [employer] Description:Device Manufactu rer - [employer]. Body Location - Other. tooth- 13. Device Status Text - [id number]. Brane Fix Rst Tiunite Rp 4.3 X 13.0 - Anne [id number] Implanted:Qty: 1 on 08/10/2015 Hardware e.g. pins/screws /rods Tooth [employer] Description:Device Manufactu rer - [employer]. Body Location - Other. tooth- 11. Device Status Text - [id number]. Abutment Nobrpl Rp 4.3x3 - Anne [id number] Implanted:Qty: 1 on 02/08/2016 Hardware e.g. pins/screws /rods Tooth [employer] Description:Device Manufactu rer - [employer]. Body Location - Other. tooth- 20. Device Status Text - [id number]. Abutment Nobrpl Rp 5.3x3 - Anne [id number] Implanted:Qty: 1 on 02/08/2016 Hardware e.g. pins/screws /rods Tooth [employer] Description:Device Manufactu rer - [employer]. Body Location - Other. tooth- 13. Device Status Text - [id number]. Abutment Nobrpl Rp 4.3x3 - Anne [id number] Implanted:Qty: 1 on 02/08/2016 Hardware e.g. pins/screws /rods Tooth [employer] Description:Device Manufactu rer - [employer]. Body Location - Other. tooth- 21. Device Status Text - HARDWARE-[id number]. Abutment Nobrpl Rp 4.3x3 - Anne [id number] Implanted:Qty: 1 on 02/08/2016 Hardware e.g. pins/screws /rods Tooth [employer] Description:Device Manufactu rer - [employer]. Body Location - Other. tooth- 11. Device Status Text - [id number]. Patch Dura-Guard 4x 4 - Anne [id number] Implanted:Qty: 1 on 08/19/1996 Mesh or Patch [employer] Description:Device Manufactu rer - [employer]. Device Status Text - [id number]. Allograft Bioxclude Chorion 1cm X 2.5cm - Anne [id number] Implanted:Qty: 1 on 01/15/2014 Mesh or Patch Tooth Unknown Description:Device Manufactu rer - Unknown. Body Location - tooth-28. Device Status Text - [id number]. Allograft Bioxclude Chorion 1cm X 2.5cm - Anne [id number] Implanted:Qty: 1 on 01/15/2014 Mesh or Patch Tooth Unknown Description:Device Manufactu rer - Unknown. Body Location - tooth-5. Device Status Text - [id number]. Allograft Bioxclude Chorion 1.5cm X 2cm - Anne [id number] Implanted:Qty: 1 on 08/10/2015 Mesh or Patch Other/Legacy - See Implant Description Unknown Description:Device Manufactu rer - Unknown. Body Location - Other. Left. Device Status Text - [id number]. Procedures Procedure Name Priority Date/Time Associated Diagnosis Comments INR REFLEX, POCT, B Routine 01/03/2024 7 :17 AM CDT INR REFLEX, POCT, B Routine 11/22/2023 8 :01 AM CDT Anticoagulant Therapy [Z79.01] Mutation Factor V Leiden Heterozygous (HCC) Monitoring For Therapeutic Drug Therapy [Z51.81] Thrombosis Deep Vein Personal History LIPID PANEL, S Routine 04/19/2023 7:39 AM REVERSE LOGISTICS ANALYST Hyperlipidemia BASIC METABOLIC PANEL, S/P Routine 04/19/2023 7:39 AM REVERSE LOGISTICS ANALYST Hypertension Essential Primary HCV AB SCRN W/REFLEX TO HCV PCR, S Routine 06/15/2016 9:01 AM REVERSE LOGISTICS ANALYST COLONOSCOPY Routine 12/27/2014 US AORTA Routine 11/09/2014 [...] POCT ORDERABLES - DEVICE Performing Organization Address City/State/[facility] Co de Phone Number [facility] [address] [place] [address], [facility] [place] [address] * Lipid Panel (04/19/2023 7:39 AM REVERSE LOGISTICS ANALYST) Triglycerides 113 mg/dL 04/19/2023 11:48 AM REVERSE LOGISTICS ANALYST CNFL Comment: ----REFERENCE VALUE---- Normal: <150 mg/dL Borderline High: 150-199 mg/dL High: 200-499 mg/dL Very High: > or =500 mg/dL Cholesterol, Total 144 mg/dL 2022 11:48 AM REVERSE LOGISTICS ANALYST CNFL Comment: ----REFERENCE VALUE---- Desirable: < 200 mg/dL Borderline High: 200 - 239 mg/dL High: > or = 240 mg/dL Cholesterol, LDL, Calculated 76 mg/dL 04/19/2023 12:10 PM REVERSE LOGISTICS ANALYST CNFL Comment: ----REFERENCE VALUE---- Desirable: <100 mg/dL Above Desirable: 100-129 mg/dL Borderline High: 130-159 mg/dL High: 160-189 mg/dL Very High: >=190 mg/dL ----ADDITIONAL INFORMATION---- LDL cholesterol calculated using the Sosa/NIH equation. Cholesterol, HDL 48 >=40 mg/dL 04/19/20 12:10 PM REVERSE LOGISTICS ANALYST CNFL Cholesterol, Non-HDL, Calculated 96 mg/dL 04/19/2023 12:10 PM REVERSE LOGISTICS ANALYST CNFL Comment: ----REFERENCE VALUE---- Desirable: <130 mg/dL Above Desirable: 130-159 mg/dL Borderline High: 160-189 mg/dL High: 190-219 mg/dL Very High: > or =220 mg/dL Fasting (8 HR or more) No 04/19/2023 7:40 AM REVERSE LOGISTICS ANALYST CNFL Blood (Blood, Venous) 04/19/2023 7:39 AM REVERSE LOGISTICS ANALYST 04/19/2023 7:40 AM REVERSE LOGISTICS ANALYST Stefan Salomon M.D. LAB BLOOD ADD-ON Performing Organization Address [facility]/State/[facility] Co de Phone Number [facility] [address] [place] [address], [facility] [address] * Basic Metabolic Panel (04/19/2023 7:39 AM REVERSE LOGISTICS ANALYST) Potassium, P 4.1 3.6 - 5.2 mmol/L 04/19/2023 11:48 AM REVERSE LOGISTICS ANALYST CNFL Sodium, P 138 135 - 145 mmol/L 04/19/2023 11:48 AM REVERSE LOGISTICS ANALYST CNFL Chloride, P 102 98 - 107 mmol/L 04/19/2023 11:48 AM REVERSE LOGISTICS ANALYST CNFL Bicarbonate, P 23 22 - 29 mmol/L 04/19/2023 11:48 AM REVERSE LOGISTICS ANALYST CNFL Anion Gap, P 13 7 - 15 04/19/2023 11:48 AM REVERSE LOGISTICS ANALYST CNFL BUN (Blood Urea Nitrogen), P 21 8 - 24 mg/dL 04/19/2023 11:48 AM REVERSE LOGISTICS ANALYST CNFL Creatinine 0.87 0.74 - 1.35 mg/dL 04/19/2023 11:48 AM REVERSE LOGISTICS ANALYST CNFL Estimated GFR (eGFR) >90 >=60 mL/min/BSA 04/19/2023 11:48 AM REVERSE LOGISTICS ANALYST CNFL Comment: Estimated GFR calculated using the 2020 CKD_EPI creatinine equation. Calcium, Total, P 9.1 8.8 - 10.2 mg/dL 04/19/2023 11:48 AM REVERSE LOGISTICS ANALYST CNFL Glucose, P 103 70 - 140 mg/dL 04/19/2023 11:48 AM REVERSE LOGISTICS ANALYST CNFL Blood (Blood, Venous) 04/19/2023 7:39 AM REVERSE LOGISTICS ANALYST 04/19/2023 7:40 AM REVERSE LOGISTICS ANALYST Stefan Salomon M.D. LAB BLOOD ADD-ON [facility] [address] [place] [address], [facility] [place] [address] * HCV Ab w/Reflex to HCV PCR, S (medicare) (06/15/2016 9:01 AM REVERSE LOGISTICS ANALYST) HXHCV Ab [facility] Reactive Negative POWERCHART Comment: Supplemental testing for HCV RNA is ordered to rule out active HCV infection. Rnomih-hh-uwmbbo ratio is >=1.00 and <8.00. Test Performed by: [place] [address] Agriscience Teacher: Armando Chavez II, M.D., Ph.D. Blood 06/15/2016 9:01 AM REVERSE LOGISTICS ANALYST Abraham Valle M.D. LAB MICROBIOLOGY - B [...] Recently Relevant to Health Maintenance Care Teams Heavy Equipment Field Mechanic Relationship Specialty Start Date End Date Stefan Salomon M.D. [id number] [place] [phone] PCP - General Family Medicine 07/09/22 Anticoagulation Team 07/09/22
--- OUTSIDE RECORDS SUMMARY | 2024-01-21 08:02 | XMS_ITS | Encounter Summary ---
Author Organization [facility] Address [address] [place] [address] Care Team Providers Care Performance Test Architect Name Role Phone Stefan Salomon M.D. Primary Care Provider [phone] Reason for Visit * Outpatient (Routine) - Authorized Specialty Diagnoses / Procedures Referred By Contac t Referred To Contact Anticoagulation Diagnoses Anticoagulant Therapy Mutation Factor V Leiden Heterozygous (HCC) Monitoring For Therapeutic Drug Therapy Thrombosis Deep Vein Personal History Stefan Salomon M.D. [id number] [phone] [facility] Referral ID Status Reason Start Date Expiration Date V isits Requested Visits Authorized [id number] Authorized 02/01/2023 01/31/2026 300 300 Encounter Details Date Type Department Care Team (Latest Contact Info) Description 01/03/2024 9:30 AM CDT Anticoagulation Visit Department of Anticoagulation in [place], [place] [address] [place] [address] Stefan Salomon M.D. [id number] [phone] Mutation Factor V Leiden Heterozygous [...] PHQ-2 Score 0 06/12/2023 [facility] [place] [facility] - Occupational Stress [...] file Gender Identity Male 07/02/2017 9:12 AM [employer] Sexual Orientation Straight 07/02/2017 9: 12 AM [employer] OFFICER documented as of this encounter Patient [...] please call Primary Care Anticoagulation Program at [phone] from 7:30 am to 4:30 pm. Saturday-Saturday [...] if you start any herbal or other [id number] product (check with your doctor, a nurse, [...] does NOT have atrial fibrillation/flutter, therefore no CHADS2/[id number]-[id number] score calculated. Proceeded to maintenance warfarin dosing [...] CDT Appointment Department of Laboratory Medicine in [address] [phone] Stefan Salomon M.D. [address] [place] [phone] 02/14/2024 9:30 AM CDT Anticoagulation Visit Department of Anticoagulation in [place], [place] [address] [place] [address] Stefan Salomon M.D. [address] [place] [phone] Scheduled Orders Name Type Priority Associated Diagnoses [...] Total Score: 1 06/12/19 24 4:14 PM [employer] documented as of this encounter Care Teams Performance Test Architect Relationship Specialty Start Date End Date Stefan Salomon M.D. [address] [place] [phone] PCP - General Family Medicine 07/09/22 Anticoagulation Team 07/09/22 documented as of this encounter
== END 2024-01-21 08:00 | disposition home or self-care (01) ==
LOC: WOUND 07:59
PROVIDERS: PCP Student in an Organized Health Care Education/Training Program; Visit Provider Nurse Practitioner Family
DX: I87.313 Chronic venous hypertension (idiopathic) with ulcer of bilateral lower extremity (principal); L97.812 Non-pressure chronic ulcer of other part of right lower leg with fat layer exposed; L97.322 Non-pressure chronic ulcer of left ankle with fat layer exposed; B96.5 Pseudomonas (aeruginosa) (mallei) (pseudomallei) as the cause of diseases classified elsewhere
CPT/HCPCS: 87070; 87186; 97597

== ENCOUNTER 2024-02-04 07:50 | Outpatient (CLI) | payer MEDICARE, BC, SELFPAY | END 2024-02-04 07:51 | disposition home or self-care (01) | PROVIDERS: PCP Student in an Organized Health Care Education/Training Program; Visit Provider Nurse Practitioner Family | DX: I87.313 Chronic venous hypertension (idiopathic) with ulcer of bilateral lower extremity (principal); I87.2 Venous insufficiency (chronic) (peripheral); I89.0 Lymphedema, not elsewhere classified; L97.818 Non-pressure chronic ulcer of other part of right lower leg with other specified severity; L97.328 Non-pressure chronic ulcer of left ankle with other specified severity | CPT/HCPCS: 97597 ==

== ENCOUNTER 2024-02-18 07:58 | Outpatient (CLI) | payer MEDICARE, BC, SELFPAY | END 2024-02-18 07:59 | disposition home or self-care (01) | LOC: WOUND 07:58 | PROVIDERS: PCP Student in an Organized Health Care Education/Training Program; Visit Provider Nurse Practitioner Family | DX: I87.313 Chronic venous hypertension (idiopathic) with ulcer of bilateral lower extremity (principal); I87.2 Venous insufficiency (chronic) (peripheral); I89.0 Lymphedema, not elsewhere classified; L97.818 Non-pressure chronic ulcer of other part of right lower leg with other specified severity; L97.322 Non-pressure chronic ulcer of left ankle with fat layer exposed | CPT/HCPCS: 11042 ==

== ENCOUNTER 2024-03-03 13:47 | Outpatient (CLI) | payer MEDICARE, BC, SELFPAY | END 2024-03-03 13:48 | disposition home or self-care (01) | LOC: WOUND 13:48 | PROVIDERS: PCP Student in an Organized Health Care Education/Training Program; Visit Provider Nurse Practitioner Family | DX: I87.313 Chronic venous hypertension (idiopathic) with ulcer of bilateral lower extremity (principal); I87.2 Venous insufficiency (chronic) (peripheral); L97.812 Non-pressure chronic ulcer of other part of right lower leg with fat layer exposed; L97.322 Non-pressure chronic ulcer of left ankle with fat layer exposed; I89.0 Lymphedema, not elsewhere classified | CPT/HCPCS: 15271; 97597; Q4201 ==

== ENCOUNTER 2024-03-17 07:51 | Outpatient (CLI) | payer MEDICARE, BC, SELFPAY | END 2024-03-17 07:52 | disposition home or self-care (01) | LOC: WOUND 07:52 | PROVIDERS: PCP Student in an Organized Health Care Education/Training Program; Visit Provider Nurse Practitioner Family | DX: I87.313 Chronic venous hypertension (idiopathic) with ulcer of bilateral lower extremity (principal); I87.2 Venous insufficiency (chronic) (peripheral); I89.0 Lymphedema, not elsewhere classified; L97.812 Non-pressure chronic ulcer of other part of right lower leg with fat layer exposed; L97.322 Non-pressure chronic ulcer of left ankle with fat layer exposed | CPT/HCPCS: 11042; 97597 ==

== ENCOUNTER 2024-03-31 08:00 | Outpatient (CLI) | payer MEDICARE, BC, SELFPAY ==
--- OUTSIDE RECORDS SUMMARY | 2024-03-31 08:03 | XMS_ITS | Clinical Summary ---
Author Organization [facility] Address [address] [place] [address] Care Team Providers Care Set Staff Fitter Name Role Phone Stefan Salomon M.D. Primary Care Provider [phone] Source Comments Patient records contain information from all sites at [facility]. For routine questions regarding patient records, call [phone] during business hours, M-F 8:00 AM - 5:00 PM Central Time. Record requests for emergency care only can be directed to [phone] at any time.[facility] Allergies Active Allergy Reactions Criticality Noted Date Comments Atorvastatin Myalgia 02/08/2017 Leg Pain/Cramps Osfscgc-Xeq-Iey Reductase Inhibitors Other (see comments) 09/10/2022 Medications hydrocortisone (HYTONE) 2.5 % cream Apply to rash/itch/irritat ion involving the face and skin folds twice daily as needed 30 g 2 022 Active fluocinonide (LIDEX) 0.05 % cream Apply twice daily to areas of rash/itch/irritat ion as needed. DO NOT use on face or skin folds 120 g 2 022 Active acetaminophen (TYLENOL) 500 mg capsule Take 500 mg by mouth every 6 (six) hours as needed for pain. Takes 4,000 mg usually each day Active fluorouraciL (EFUDEX) 5 % cream Apply 1 application. topically 2 (two) times a day. Apply to scalp for 2-3 weeks. 40 g 023 Active polyethylene glycol-electrol ytes (GoLYTELY) 236-22.74-6.74 -5.86 gram solution Drink 1st portion of prep at 6 PM the evening before. 2nd portion must be started 3 hours before and finished 2 hours prior to report time 4000 mL 023 Active gabapentin (NEURONTIN) 300 mg capsuleIndicati ons:Insufficien cy Venous,Chronic Pain Syndrome,Pain Limb Generalized,Sarath n Leg Bilateral,Pseud ogout Take 2 capsules (600 mg total) by mouth 3 (three) times a day. 540 capsule 3 023 Active Additional Information Patient taking differently:600 mg oral2 times daily, 2 tabs twice a day, Informant: Self, Reported on 07/19/2023 losartan (COZAAR) 50 mg tablet TAKE 1 TABLET [50MG] BY MOUTH ONCE EVERY DAY 90 tablet 3 024 Active triamcinolone (KENALOG) 0.1 % creamIndication s:Pruritus Apply 1 Application topically 2 (two) times a day as needed (Rash). Apply to itchy spots on the back up to twice per day. 240 g 3 024 Active warfarin (JANTOVEN) 5 mg tabletIndicatio ns:Anticoagulan t Therapy,Mutatio n Factor V Leiden Heterozygous (HCC),Monitorin g For Therapeutic Drug Therapy,Thrombo sis Deep Vein Personal History Please take as directed by your Anticoagulation Clinic. 118 tablet 3 024 Active amLODIPine (Norvasc) 10 mg tablet take one tablet by mouth every day 90 tablet 024 Active traMADoL (Ultram) 50 mg tabletIndicatio ns:Chronic Pain/Nonacute Pain Take 1-2 tablets (50-100 mg total) by mouth every 6 (six) hours as needed for pain Indications: Chronic Pain/Nonacute Pain. 240 tablet 024 Active triamcinolone (Kenalog) 0.1 % cream Apply 1 Application topically 2 (two) times a day as needed (Rash). Apply to legs twice a day until itchy red rash goes away. 240 g 3 024 Active fluorouraciL (Efudex) 5 % cream Apply 1 Application topically 2 (two) times a day. Apply to face and scalp. 40 g 2 024 Active amLODIPine (NORVASC) 10 mg tablet TAKE ONE TABLET BY MOUTH EVERY DAY 90 tablet 3 023 2023 Discontinued traMADoL (Ultram) 50 mg tabletIndicatio ns:Chronic Pain/Nonacute Pain Take 1-2 tablets (50-100 mg total) by mouth every 6 (six) hours as needed for pain Indications: Chronic Pain/Nonacute Pain. 240 tablet 024 2023 Discontinued(R eorder) Active Problems Problem Noted Date Diagnosed Date [...] Encounters Date Type Department Care Team Description 03/24/2024 8:00 AM CDT Office Visit Department of Dermatology in [place], [place] [address] [place] [address] Andres Simeon M.D. 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 Anticoagulant Therapy [Z79.01] (Primary Dx); Mutation Factor V Leiden Heterozygous (HCC); Monitoring For Therapeutic Drug Therapy [Z51.81]; Thrombosis Deep Vein Personal History 03/13/2024 7:02 AM CDT - 03/13/2024 11:59 PM CDT Hospital Encounter Department of Laboratory Medicine in [address] [phone] Stefan Salomon M.D. Anticoagulant Therapy; Mutation Factor V Leiden Heterozygous (HCC); Monitoring For Therapeutic Drug Therapy; Thrombosis Deep Vein Personal History Discharge Disposition: Home or Self Care 03/04/2024 Refill Department of Family Medicine, [facility], in [address] [phone] Stefan Salomon M.D. Med Refill 03/01/2024 Refill Department of Family Medicine, [facility], in [place] [address] [place] [address] Stefan Salomon M.D. Med Refill 02/14/2024 9:30 AM CDT Anticoagulation Visit Department of Anticoagulation in [place], [place] [address] [place] [phone] Stefan Salomon M.D. Monitoring For Therapeutic Drug Therapy (Primary Dx); Anticoagulant Therapy; Mutation Factor V Leiden Heterozygous (HCC); Thrombosis Deep Vein Personal History 02/14/2024 7:16 AM CDT - 02/14/2024 11:59 PM CDT Hospital Encounter Department of Laboratory Medicine in [address] [phone] Stefan Salomon M.D. Anticoagulant Therapy; Mutation Factor V Leiden Heterozygous (HCC); Monitoring For Therapeutic Drug Therapy; Thrombosis Deep Vein Personal History Discharge Disposition: Home or Self Care 02/04/2024 Orders Only Department of Family Medicine, [facility], in [address] [address] Stefan Salomon M.D. Anticoagulant Therapy [Z79.01] (Primary Dx); Mutation Factor V Leiden Heterozygous (HCC); Monitoring For Therapeutic Drug Therapy [Z51.81]; Thrombosis Deep Vein Personal History 02/03/2024 Refill Department of Family Medicine, [facility], in [address] [phone] Anuradha Galaviz M.D. Med Refill 01/03/2024 9:30 AM CDT Anticoagulation Visit Department of Anticoagulation in [address] [address] Stefan Salomon M.D. Mutation Factor V Leiden Heterozygous (HCC) (Primary Dx); Anticoagulant Therapy; Monitoring For Therapeutic Drug Therapy; Thrombosis Deep Vein Personal History 01/03/2024 7:11 AM CDT - 01/03/2024 11:59 PM CDT Hospital Encounter Department of Laboratory Medicine in [address] [address] Stefan Salomon M.D. Anticoagulant Therapy [Z79.01]; Mutation [...] kristal yes- in 1973 Anticoagulant therapy Sister vydlan Eczema Sister vydlan Factor V Leiden Sister vydlan Hypertension Sister vydetta Leukemia Sister vydlan Relation Name Status Comments Brother jackson Daughter [...] How often do you attend adventist or amish serv ices? Never 07/09/2022 Do [...] Answer Date Recorded PHQ-2 Score 0 06/12/2023 [facility] - [...] Recorded Sex Assigned at Not on file Legal Sex Male 4:51 PM COMMERCIAL FLOOR COVERING INSTALLER Gender Identity Male 07/02/2017 9:12 AM COMMERCIAL FLOOR COVERING INSTALLER Sexual Orientation Straight 07/02/2017 9: 12 AM COMMERCIAL FLOOR COVERING INSTALLER Last Filed Vital Signs Vital Sign Reading Time Taken Comments Blood Pressure 148/82 06/12/2023 4:23 PM COMMERCIAL FLOOR COVERING INSTALLER Pulse 63 06/12/2023 4:23 PM COMMERCIAL FLOOR COVERING INSTALLER Temperature 36.6 ??C (97.9 ??F) 06/12/2023 4:23 PM CS T Respiratory Rate 18 06/12/2023 4:23 PM COMMERCIAL FLOOR COVERING INSTALLER Oxygen Saturation 94% 06/12/2023 4:23 PM COMMERCIAL FLOOR COVERING INSTALLER Inhaled Oxygen Concentration - - Weight 95.6 kg (210 lb 12.2 oz) 06/12/2023 4:23 PM COMMERCIAL FLOOR COVERING INSTALLER Height 176.5 cm (5' 9.49) 08/01/2022 9:59 AM CS T Body Mass Index 30.69 08/01/2022 9:59 AM COMMERCIAL FLOOR COVERING INSTALLER Plan of Treatment Upcoming Encounters Date Type Department Care Team (Latest Contact Info) Description 04/24/2024 8:50 AM COMMERCIAL FLOOR COVERING INSTALLER Appointment Department of Laboratory Medicine in [address] [phone] Stefan Salomon M.D. [address] [place] [phone] 04/24/2024 9:30 AM COMMERCIAL FLOOR COVERING INSTALLER Anticoagulation Visit Department of Anticoagulation in [address] [address] Stefan Salomon M.D. [address] [place] [phone] 05/08/2024 10:30 AM COMMERCIAL FLOOR COVERING INSTALLER Appointment Department of Radiology, [facility] in [place], [place] [address] [place] [phone] Robert Perez M.B.B.S., MEmilia. [address] [place] [phone] Discharge Disposition: Home or Self Care 05/08/2024 1:15 PM COMMERCIAL FLOOR COVERING INSTALLER Comprehensive Visit Department of Vascular Medicine in [place], [place] [address] [place] [phone] Shannon Young, ARCADIOS, P.A.-C. [address] [place] [phone] Health Maintenance Due Date Last Done Comments CT Colonography 1948 Cologuard 1950 Zoster Vaccines (1 of 2) 1998 Colonoscopy 12/28/2019 12/27/2014 Colorectal Cancer Surveillance 12/28/2019 Visit: Medicare Annual Wellness 07/10/2023 Office Visit for Blood Press ure Check / Re-check 09/11/2023 06/12/2023 RSV vaccine - (32-3 6 weeks) or 60+ years (1 - 1-dose 75+ series) 11/30/2023 Opioid Risk Tool (ORT) 01/09/2024 07/09/2022 PEG assessment for Opioid therapy 01/09/2024 024 COVID-19 Vaccine (2023-07 5 season) 2024 04/21/2022, 04/14/2021, 08/28/2020, Additional history exists Controlled Substance Monitoring 02/24/2024 Influenza Vaccine (#1) [...] Completed 06/12/2023 Medical Devices Implanted Type Area Value Stream Manager Device Identifier Shelf Expiration Date Model / Serial / Lot Mineralized Cancellous Bone 2.0 - Anne [id number] Implanted:Qty: 1 on 08/10/2015 Bone or Tissue Tooth [facility] Description:Device Manufactu [facility]. Body Location - Other. tooth-13. Device Status Text - [id number]. Hardware E.G. Pins/Screws/Rk s Hardware e.g. pins/screws /rods Mouth Abutment Nobrpl Rp 4.3x5 - Anne [id number] Implanted:Qty: 1 on 07/03/2007 Hardware e.g. pins/screws /rods Tooth [employer] Description:Device Manufactu rer - [employer]. Body Location - Tooth 5. Device Status Text - [id number]. Screw Rst Curly Taper Rp 4.3x13.0 - Anne [id number] Implanted:Qty: 1 on 07/03/2007 Hardware e.g. pins/screws /rods Tooth [employer] Description:Device Manufactu rer - [employer]. Body Location - Tooth 5. Device Status Text - [id number]. Screw Nobrpl Curly Tap Neuroscientist 3.5x11.5 - Anne [id number] Implanted:Qty: 1 on 03/03/2012 Hardware e.g. pins/screws /rods Tooth [employer] Description:Device Manufactu rer - [employer]. Body Location - Tooth 29. Device Status Text - [id number]. Abutment Nobrpl Neuroscientist 3.5x5 - Anne [id number] Implanted:Qty: 1 on 03/03/2012 Hardware e.g. pins/screws /rods Tooth [employer] Description:Device Manufactu rer - [employer]. Body Location - Tooth 29. Device Status Text - [id number]. Abutment Nobrpl Neuroscientist 3.5x3 - Anne [id number] Implanted:Qty: 1 on 08/23/2014 Hardware e.g. pins/screws /rods Tooth [employer] Description:Device Manufactu rer - [employer]. Body Location - Other. tooth- 28. Device Status Text - [id number]. Abutment Nobrpl Neuroscientist 3.5x3 - Anne [id number] Implanted:Qty: 1 on 08/23/2014 Hardware e.g. pins/screws /rods Tooth [employer] Description:Device Manufactu rer - [employer]. Body Location - Other. tooth- 28. Device Status Text - [id number]. Screw Nobrpl Curly Taper Neuroscientist 3.5x13.0 - Anne [id number] Implanted:Qty: 1 on 08/23/2014 Hardware e.g. pins/screws /rods Tooth [employer] Description:Device Manufactu rer - [employer]. Body Location - Other. tooth- 28. Device Status Text - [id number]. Screw Nobrpl Curly Taper Rp 4.3x10.0 - Anne [id number] Implanted:Qty: 1 on 08/10/2015 Hardware e.g. pins/screws /rods Tooth [employer] Description:Device Manufactu rer - [employer]. Body Location - Other. tooth- 20. Device Status Text - [id number]. Brane Fix Rst Tiunite Rp 4.3 X 13.0 - Anne [id number] Implanted:Qty: 1 on 08/10/2015 Hardware e.g. pins/screws /rods Tooth [employer] Description:Device Manufactu rer - [employer]. Body Location - Other. tooth- 21. Device Status Text - [id number]. Brane Fix Rst Tiunite Rp 4.3 X 13.0 - Anne [id number] Implanted:Qty: 1 on 08/10/2015 Hardware e.g. pins/screws /rods Tooth [employer] Description:Device Manufactu rer - [employer]. Body Location - Other. tooth- 13. Device Status Text - [id number]. Brane Fix Rst Tiunite Rp 4.3 X 13.0 - Anne [id number] Implanted:Qty: 1 on 08/10/2015 Hardware e.g. pins/screws /rods Tooth [employer] Description:Device Manufactu rer - [employer]. Body Location - Other. tooth- 11. Device Status Text - [id number]. Abutment Nobrpl Rp 4.3x3 - Anne [id number] Implanted:Qty: 1 on 02/08/2016 Hardware e.g. pins/screws /rods Tooth [employer] Description:Device Manufactu rer - [employer]. Body Location - Other. tooth- 20. Device Status Text - [id number]. Abutment Nobrpl Rp 5.3x3 - Anne [id number] Implanted:Qty: 1 on 02/08/2016 Hardware e.g. pins/screws /rods Tooth [employer] Description:Device Manufactu rer - [employer]. Body Location - Other. tooth- 13. Device Status Text - [id number]. Abutment Nobrpl Rp 4.3x3 - Anne [id number] Implanted:Qty: 1 on 02/08/2016 Hardware e.g. pins/screws /rods Tooth [employer] Description:Device Manufactu rer - [employer]. Body Location - Other. tooth- 21. Device Status Text - HARDWARE-[id number]. Abutment Nobrpl Rp 4.3x3 - Anne [id number] Implanted:Qty: 1 on 02/08/2016 Hardware e.g. pins/screws /rods Tooth [employer] Description:Device Manufactu rer - [employer]. Body Location - Other. tooth- 11. Device Status Text - [id number]. Patch Dura-Guard 4x 4 - Anne [id number] Implanted:Qty: 1 on 08/19/1996 Mesh or Patch [employer] Description:Device Manufactu rer - [employer]. Device Status Text - MESHPATCH-7189. Allograft Bioxclude Chorion 1cm X 2.5cm - Anne [id number] Implanted:Qty: 1 on 01/15/2014 Mesh or Patch Tooth Unknown Description:Device Manufactu rer - Unknown. Body Location - tooth-28. Device Status Text - [id number]. Allograft Bioxclude Chorion 1cm X 2.5cm - Anne [id number] Implanted:Qty: 1 on 01/15/2014 Mesh or Patch Tooth Unknown Description:Device Manufactu rer - Unknown. Body Location - tooth-5. Device Status Text - [id number]. Allograft Bioxclude Chorion 1.5cm X 2cm - Anne [id number] Implanted:Qty: 1 on 08/10/2015 Mesh or Patch Other/Legacy - See Implant Description Unknown Description:Device Manufactu rer - Unknown. Body Location - Other. Left. Device Status Text - [facility][id number]. Procedures Procedure Name Priority Date/Time Associated Diagnosis Comments DERMATOLOGY IMAGE EXAM Routine 03/24/2024 12:00 AM CDT INR REFLEX, POCT, B Routine 03/13/2024 7 :09 AM CDT Anticoagulant Therapy Mutation Factor V Leiden Heterozygous (HCC) Monitoring For Therapeutic Drug Therapy Thrombosis Deep Vein Personal History INR REFLEX, POCT, B Routine 02/14/2024 7 :21 AM CDT Anticoagulant Therapy Mutation Factor V Leiden Heterozygous (HCC) Monitoring For Therapeutic Drug Therapy Thrombosis Deep Vein Personal History INR REFLEX, POCT, B Routine 01/03/2024 7 :17 AM CDT LIPID PANEL, S Routine 04/19/2023 7:39 AM COMMERCIAL FLOOR COVERING INSTALLER Hyperlipidemia BASIC METABOLIC PANEL, S/P Routine 04/19/2023 7:39 AM COMMERCIAL FLOOR COVERING INSTALLER Hypertension Essential Primary HCV AB SCRN W/REFLEX TO HCV PCR, S Routine 06/15/2016 9:01 AM COMMERCIAL FLOOR COVERING INSTALLER COLONOSCOPY Routine 12/27/2014 US AORTA Routine 11/09/2014 8:30 AM CDT from Last 3 Months or Most Recently Relevant to Health Maintenance Results * Legs-Dermatology Image Exam (03/24/2024 12:00 AM CDT) Narrative IIMS - 03/25/2024 10:01 AM CDT This order has been created and auto-finalized to support the import of images acquired without order. The clinical documentation to support these images can be found on the encounter that produced images. us Provider Not In System IMG NON RAD IMAGING PROCE DURES Final Result IIMS NA * INR Reflex, POCT, Blood (03/13/2024 7:09 AM CDT) Only the most recent of3 resultswithin the time period is included. INR Reflex, POCT, B 2.3 03/13/2024 7:09 AM CDT [facility] Comment: ----ADDITIONAL INFORMATION---- Standard intensity warfarin therapeutic range: 2.0 to 3.0 ?? High intensity warfarin therapeutic range: 2.5 to 3.5 Blood (Blood, Capillary) 03/13/2024 7:09 AM CDT 03/13/2024 7:09 AM CDT us Stefan Salomon M.D. LAB POCT ORDERABLES - DEVIC E Final Result Performing Organization Address [facility] Co de Phone Number [facility] [address] [place] [address], [facility] [place] [address] * Lipid Panel (04/19/2023 7:39 AM COMMERCIAL FLOOR COVERING INSTALLER) Triglycerides 113 mg/dL 04/19/2023 11:48 AM COMMERCIAL FLOOR COVERING INSTALLER [facility] Comment: ----REFERENCE VALUE---- Normal: <150 mg/dL Borderline High: 150-199 mg/dL High: 200-499 mg/dL Very High: > or =500 mg/dL Cholesterol, Total 144 mg/dL 2022 11:48 AM COMMERCIAL FLOOR COVERING INSTALLER [place] Comment: ----REFERENCE VALUE---- Desirable: < 200 mg/dL Borderline High: 200 - 239 mg/dL High: > or = 240 mg/dL Cholesterol, LDL, Calculated 76 mg/dL 04/19/2023 12:10 PM COMMERCIAL FLOOR COVERING INSTALLER [facility] Comment: ----REFERENCE VALUE---- Desirable: <100 mg/dL Above Desirable: 100-129 mg/dL Borderline High: 130-159 mg/dL High: 160-189 mg/dL Very High: >=190 mg/dL ----ADDITIONAL INFORMATION---- LDL cholesterol calculated using the Sosa/NIH equation. Cholesterol, HDL 48 >=40 mg/dL 04/19/20 12:10 PM COMMERCIAL FLOOR COVERING INSTALLER [facility] Cholesterol, Non-HDL, Calculated 96 mg/dL 04/19/2023 12:10 PM COMMERCIAL FLOOR COVERING INSTALLER [facility] Comment: ----REFERENCE VALUE---- Desirable: <130 mg/dL Above Desirable: 130-159 mg/dL Borderline High: 160-189 mg/dL High: 190-219 mg/dL Very High: > or =220 mg/dL Fasting (8 HR or more) No 04/19/2023 7:40 AM COMMERCIAL FLOOR COVERING INSTALLER [facility] Blood (Blood, Venous) 04/19/2023 7:39 AM COMMERCIAL FLOOR COVERING INSTALLER 04/19/2023 7:40 AM COMMERCIAL FLOOR COVERING INSTALLER us Stefan Salomon M.D. LAB BLOOD ADD-ON Final Resu lt Performing Organization Address City/State/[facility] Co de Phone Number [facility] [address] [place] [address], [facility] CNFL [facility] [address] * Basic Metabolic Panel (04/19/2023 7:39 AM COMMERCIAL FLOOR COVERING INSTALLER) Potassium, P 4.1 3.6 - 5.2 mmol/L 04/19/2023 11:48 AM COMMERCIAL FLOOR COVERING INSTALLER [facility] Sodium, P 138 135 - 145 mmol/L 04/19/2023 11:48 AM COMMERCIAL FLOOR COVERING INSTALLER [facility] Chloride, P 102 98 - 107 mmol/L 04/19/2023 11:48 AM COMMERCIAL FLOOR COVERING INSTALLER [facility] Bicarbonate, P 23 22 - 29 mmol/L 04/19/2023 11:48 AM COMMERCIAL FLOOR COVERING INSTALLER [facility] Anion Gap, P 13 7 - 15 04/19/2023 11:48 AM COMMERCIAL FLOOR COVERING INSTALLER [facility] BUN (Blood Urea Nitrogen), P 21 8 - 24 mg/dL 04/19/2023 11:48 AM COMMERCIAL FLOOR COVERING INSTALLER [facility] Creatinine 0.87 0.74 - 1.35 mg/dL 04/19/2023 11:48 AM COMMERCIAL FLOOR COVERING INSTALLER [facility] Estimated GFR (eGFR) >90 >=60 mL/min/BSA 04/19/2023 11:48 AM COMMERCIAL FLOOR COVERING INSTALLER [facility] Comment: Estimated GFR calculated using the 2020 CKD_EPI creatinine equation. Calcium, Total, P 9.1 8.8 - 10.2 mg/dL 04/19/2023 11:48 AM COMMERCIAL FLOOR COVERING INSTALLER [facility] Glucose, P 103 70 - 140 mg/dL 04/19/2023 11:48 AM COMMERCIAL FLOOR COVERING INSTALLER [facility] Blood (Blood, Venous) 04/19/2023 7:39 AM COMMERCIAL FLOOR COVERING INSTALLER 04/19/2023 7:40 AM COMMERCIAL FLOOR COVERING INSTALLER Stefan Salomon M.D. LAB BLOOD ADD-ON Final Resu lt Performing Organization Address City/[facility] Co de Phone Number [facility] [address] [place] [address], [facility] [address] * HCV Ab w/Reflex to HCV PCR, S (medicare) (06/15/2016 9:01 AM COMMERCIAL FLOOR COVERING INSTALLER) HXHCV Ab [facility] Reactive Negative POWERCHART Comment: Supplemental testing for HCV RNA is ordered to rule out active HCV infection. Kxqoxv-kd-wphstx ratio is >=1.00 and <8.00. Test Performed by: [facility] [place] [address] Market Research Manager: Armando Chavez II, M.D., Ph.D. Blood 06/15/2016 9:01 AM COMMERCIAL FLOOR COVERING INSTALLER Abrahma Valle M.D. LAB MICROBIOLOGY - BLOOD ORDERAB LES Final Result Performing Organization Address City/[facility]/ZIP Co de Phone Number POWERCHART * Colonoscopy (12/27/2014) EXT Colonoscopy Abnormal - See Scanned Report for Details Normal - See Scanned Report for Details, HIMS - Report Received and Scanned Historical Provider GI PROCEDURE ORDERABLES Marion l Result * US Aorta (11/09/2014 8:30 AM CDT) [...] Normal abdominal aorta Sulaiman Ordaz Jr., R.D.M.S. [facility] US PROCEDU RES Edited Result - Final from Last 3 Months or Most Recently Relevant to Health Maintenance Insurance MEDICARE [facility] Care Teams Set Staff Fitter Relationship Specialty Start Date End Date Stefan Salomon M.D. [id number] [phone] PCP - General Family Medicine 07/09/22 Anticoagulation Team 07/09/22
--- OUTSIDE RECORDS SUMMARY | 2024-03-31 08:03 | XMS_ITS | Clinical Summary ---
Author Organization [facility] Address [place], [place] [address] Care Team Providers Care Pilot Control Operator Name Role Phone Yue Alonso [facility] Primary Care Provider Allergies Active [...] anticoagulation 05/17/2017 Adenomatous polyp of colon 07/13/2016 Overview (04/28/2020): Overview: Sessile serrated adenoma & tubular adenoma. No overt or high grade dysplasia. Per pathology reprot. Arthritis of shoulder 07/13/2016 Chronic pain syndrome 07/13/2016 Edema leg 07/13/2016 Essential hypertension 07/13/2016 Overview (04/28/2020): Overview: Hypertension (HTN) Essential Benign Osteoporosis 07/13/2016 Pain of lower extremity 07/13/2016 Overview (04/28/2020): Overview: Saw Neurologist at [facility] on 09/16/2009. MRI lumbar spine done [...] and embolism 01/08/2014 Restless leg syndrome 10/14/2013 Overview (04/28/2020): Overview: Starts Klonopin on 07/09/2013. Presence of cardiac and vasc ular implant and graft, unspecified 01/11/2012 Chondrocalcinosis due to pyrophosphate crystals 12/16/2011 Pain, knee 12/13/2011 Polyarthralgia 11/18/2011 Insomnia 11/18/2011 Obstructive sleep apnea syndrome 11/18/2011 Overview (04/28/2020): He does not use CPAP. He does not think he needs it. Osteoarthritis 11/18/2011 Debility 04/11/2009 Encounters Date Type Department Care Team Description 02/24/2024 Telephone [facility] [address] [place] [address] Bhavik Benson AuD Hearing Aid from Last 3 Months [...] Comments Blood Pressure 117/67 05/13/2021 2:55 PM UNIX ANALYST Pulse 103 05/13/2021 2:55 PM UNIX ANALYST Temperature 36.9 ??C (98.4 ??F) 05/13/2021 2:55 PM CS T Respiratory Rate 18 05/13/2021 2:55 PM UNIX ANALYST Oxygen Saturation 99% 05/13/2021 2:55 PM UNIX ANALYST Inhaled Oxygen Concentration - - Weight 97.8 kg (215 lb 9.8 oz) 07/04/2022 11:35 AM UNIX ANALYST Height 175.7 cm (5' 9.17) 07/04/2022 11:[address] Body Mass Index 31.68 07/04/2022 11:35 AM UNIX ANALYST Plan of Treatment Health Maintenance Due Date [...] same day) for age 18+ 04/15/2021 04/15/2020 RSV vaccine for adults or pr egnancy (1 - 1-dose 75+ series) 11/30/2023 COVID-19 vaccine series ( season) 2024 04/14/2021, 08/28/2020, 07/31/2020 Influenza for age 65+ 02/02/2024 Tdap Completed 01/12/2008 Advance Directives * Full Code (Latest Code Status on File) Date Activated Date Inactivated Comments 12/27/2014 8:51 AM 12/27/2014 12:46 PM Care Teams Pilot Control Operator Relationship Specialty Start Date End Date Yue Alonso MBBS [address] [place] [address] TWYLA Alvarado [address] PCP - General Family Practice 06/26/22
--- OUTSIDE RECORDS SUMMARY | 2024-03-31 08:04 | XMS_ITS | Encounter Summary ---
Author Organization [facility] Address [address] [place] [address] Care Team Providers Care Radiology Supervisor Name Role Phone Stefan Salomon M.D. Primary Care Provider [phone] Encounter Details Date Type Department Care Team (Latest Contact Info) Description 02/14/2024 7:16 AM CDT - 02/14/2024 11:59 PM CDT Hospital Encounter Department of Laboratory Medicine in [address] [phone] Stefan Salomon M.D. [address] [place] [phone] Anticoagulant Therapy; Mutation Factor V Leiden Heterozygous [...] How often do you attend congregation or quaker serv ices? Never 07/09/2022 Do [...] Answer Date Recorded PHQ-2 Score 0 06/12/2023 [facility] - [...] on file Legal Sex Male 4:51 PM BRAND DEVELOPMENT MANAGER Gender Identity Male 07/02/2017 9:12 AM BRAND DEVELOPMENT MANAGER Sexual Orientation Straight 07/02/2017 9: 12 AM BRAND DEVELOPMENT MANAGER documented as of this encounter Medications at Time of Discharge acetaminophen (TYLENOL) 500 mg capsule Take 500 mg by mouth every 6 (six) hours as needed for pain. Takes 4,000 mg usually each day fluocinonide (LIDEX) 0.05 % cream Apply twice daily to areas of rash/itch/irritation as needed. DO NOT use on face or skin folds 120 g 2 2 fluorouraciL (EFUDEX) 5 % cream Apply 1 application. topically 2 (two) times a day. Apply to scalp for 2-3 weeks. 40 g 3 gabapentin (NEURONTIN) 300 mg capsuleIndication s:Insufficiency Venous,Chronic Pain Syndrome,Pain Limb Generalized,Pain Leg Bilateral,Pseudog out Take 2 capsules (600 mg total) by mouth 3 (three) times a day. 540 capsule 3 3 hydrocortisone (HYTONE) 2.5 % cream Apply to rash/itch/irritation involving the face and skin folds twice daily as needed 30 g 2 2 losartan (COZAAR) 50 mg tablet TAKE 1 TABLET [50MG] BY MOUTH ONCE EVERY DAY 90 tablet 3 4 polyethylene glycol-electrolyt es (GoLYTELY) 236-22.74-6.74 -5.86 gram solution Drink 1st portion of prep at 6 PM the evening before. 2nd portion must be started 3 hours before and finished 2 hours prior to report time 4000 mL 3 triamcinolone (KENALOG) 0.1 % creamIndications: Pruritus Apply 1 Application topically 2 (two) times a day as needed (Rash). Apply to itchy spots on the back up to twice per day. 240 g 3 4 warfarin (JANTOVEN) 5 mg tabletIndications :Anticoagulant Therapy,Mutation Factor V Leiden Heterozygous (HCC),Monitoring For Therapeutic Drug Therapy,Thrombosi s Deep Vein Personal History Please take as directed by your Anticoagulation Clinic. 118 tablet 3 4 amLODIPine (NORVASC) 10 mg tablet TAKE ONE TABLET BY MOUTH EVERY DAY 90 tablet 3 3 03/02/20 24 traMADoL (Ultram) 50 mg tabletIndications :Chronic Pain/Nonacute Pain Take 1-2 tablets (50-100 mg total) by mouth every 6 (six) hours as needed for pain Indications: Chronic Pain/Nonacute Pain. 240 tablet 4 03/04/20 24 documented as of this encounter Plan of Treatment Upcoming Encounters Date Type Department Care Team (Latest Contact Info) Description 04/24/2024 8:50 AM BRAND DEVELOPMENT MANAGER Appointment Department of Laboratory Medicine in [address] [phone] Stefan Salomon M.D. [phone] [place] [phone] 04/24/2024 9:30 AM BRAND DEVELOPMENT MANAGER Anticoagulation Visit Department of Anticoagulation in [place], [place] [address] [place] [phone] Stefan Salomon M.D. [phone] [place] [phone] 05/08/2024 10:30 AM BRAND DEVELOPMENT MANAGER Appointment Department of Radiology, [facility], in [place], [place] [address] [place] [phone] Robert Perez M.B.B.S., M.D. [address] [place] [phone] Discharge Disposition: Home or Self Care 05/08/2024 1:15 PM BRAND DEVELOPMENT MANAGER Comprehensive Visit Department of Vascular Medicine in [place], [place] [address] [place] [phone] Shannon Young, ARCADIOS, P.A.-C. [address] [place] [phone] documented as of this encounter Procedures Procedure Name Priority Date/Time Associated Diagnosis Comments INR REFLEX, POCT, B Routine 02/14/2024 7:21 AM CDT Anticoagulant Therapy Mutation Factor V Leiden Heterozygous (HCC) Monitoring For Therapeutic Drug Therapy Thrombosis Deep Vein Personal History documented in this encounter Results * INR Reflex, POCT, Blood (02/14/2024 7:21 AM CDT) [facility] INR Reflex, POCT, B 3.1 02/14/2024 7:21 AM CDT [facility] Comment: ----ADDITIONAL INFORMATION---- Standard intensity warfarin therapeutic range: 2.0 to 3.0 ?? High intensity warfarin therapeutic range: 2.5 to 3.5 Blood (Blood, Capillary) 02/14/2024 7:21 AM CDT 02/14/2024 7:21 AM CDT Stefan Salomon M.D. LAB POCT ORDERABLES - DEVIC E Final Result Performing Organization Address City/State/[facility] Co de Phone Number [facility] [address] [place] [phone], [facility] CNFL [facility] [place] in [address] [address] documented in this encounter Visit Diagnoses Diagnosis Anticoagulant Therapy Mutation Factor V Leiden Heterozygous (HCC) Monitoring For Therapeutic Drug Therapy Thrombosis Deep Vein Personal History documented in this encounter Additional Health Concerns Assessment Noted Time PHQ-9 Depression Total Score: 1 06/12/19 24 4:14 PM BRAND DEVELOPMENT MANAGER documented as of this encounter Care Teams Radiology Supervisor Relationship Specialty Start Date End Date Stefan Salomon M.D. [address] [place] [phone] PCP - General Family Medicine 07/09/22 Anticoagulation Team 07/09/22 documented as of this encounter
--- OUTSIDE RECORDS SUMMARY | 2024-03-31 08:04 | XMS_ITS | Encounter Summary ---
Author Organization [facility] Address [address] [place] [address] Care Team Providers Care Machine Featheredger And Reducer Name Role Phone Stefan Salomon M.D. Primary Care Provider [phone] Reason for Visit * Reason Comments Med Refill Encounter Details Date Type Department Care Team (Late st Contact Info) Description 03/04/2024 Refill Department of Family Medicine, [facility], in [address] [phone] Stefan Salomon M.D. [address] [place] [phone] Med Refill Social History Tobacco Use [...] How often do you attend sabianism or episcopal serv ices? 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 - 03/05/2024 9:15 AM CDT Controlled substance renewal for Tramadol 50 mg: No nursing concerns Renewal is pended per the controlled substance prescribing plan located in synopsis Date last renewed (start date): 02/08/2024 Last provider visit: 06/12/2023 Urine Drug Screen last resulted on: 02/23/2023; Next due: 02/24/2024, order in place Screenings due: PEG Next provider visit due: 06/12/2024 Controlled substance agreement last reviewed/signed 06/12/2023 This prescription may be filled on 03/09/2024, and next renewal may be on or after 04/08/2024 documented in this encounter Plan of Treatment Upcoming Encounters Date Type Department Care Team (Latest Contact Info) Description 04/24/2024 8:50 AM OCCUPATIONAL HEALTH SPECIALIST Appointment Department of Laboratory Medicine in [address] [phone] Stefan Salomon M.D. [address] [place] [phone] 04/24/2024 9:30 AM OCCUPATIONAL HEALTH SPECIALIST Anticoagulation Visit Department of Anticoagulation in [address] [phone] Stefan Salomon M.D. [address] [place] [phone] 05/08/2024 10:30 AM OCCUPATIONAL HEALTH SPECIALIST Appointment Department of Radiology, [facility], in [address] [phone] Robert Perez M.B.BMariaelena, MMandie [address] [place] [phone] Discharge Disposition: Home or Self Care 05/08/2024 1:15 PM OCCUPATIONAL HEALTH SPECIALIST Comprehensive Visit Department of Vascular Medicine in [place], [place] [address] [place] [phone] Shannon Young MPAS, P.A.-C. [address] [place] [phone] documented as of this encounter Visit Diagnoses Diagnosis Chronic Pain Syndrome Degeneration Disc Cervical Polyarthralgia documented in this encounter Additional Health Concerns Assessment Noted Time PHQ-9 Depression Total Score: 1 06/12/19 24 4:14 PM OCCUPATIONAL HEALTH SPECIALIST documented as of this encounter Care Teams Machine Featheredger And Reducer Relationship Specialty Start Date End Date Stefan Salomon M.D. [address] [phone] PCP - General Family Medicine 07/09/22 Anticoagulation Team 07/09/22 documented as of this encounter
--- OUTSIDE RECORDS SUMMARY | 2024-03-31 08:04 | XMS_ITS | Encounter Summary ---
Author Organization [facility] Address [address] [place] [address] Care Team Providers Care Nursing Assistant Name Role Phone Stefan Salomon M.D. Primary Care Provider [phone] Encounter Details Date Type Department Care Team (Late st Contact Info) Description 03/24/2024 Ancillary Procedure Department of Dermatology Social History Tobacco Use Types Packs/Day Years [...] How often do you attend pentecostal or restorationism serv ices? Never 07/09/2022 Do [...] on file Legal Sex Male 4:51 PM ROOF MECHANIC Gender Identity Male 07/02/2017 9:12 AM ROOF MECHANIC Sexual Orientation Straight 07/02/2017 9: 12 AM ROOF MECHANIC documented as of this encounter Plan of Treatment Upcoming Encounters Date Type Department Care Team (Latest Contact Info) Description 04/24/2024 8:50 AM ROOF MECHANIC Appointment Department of Laboratory Medicine in [address] [phone] Stefan Salomon M.D. [address] [place] [phone] 04/24/2024 9:30 AM ROOF MECHANIC Anticoagulation Visit Department of Anticoagulation in [address] [phone] Stefan Salomon M.D. [address] [place] [phone] 05/08/2024 10:30 AM ROOF MECHANIC Appointment Department of Radiology, [facility], in [place], [place] [address] [place] [phone] Robert Perez M.B.B.S., M.D. [address] [place] [phone] Discharge Disposition: Home or Self Care 05/08/2024 1:15 PM ROOF MECHANIC Comprehensive Visit Department of Vascular Medicine in [place], [place] [address] [place] [phone] Shannon Young MPAS, P.ACoty-C. [address] [place] [phone] documented as of this encounter Procedures Procedure Name Priority Date/Time Associated Diagnosis Comments DERMATOLOGY IMAGE EXAM Routine 03/24/2024 12:00 AM CDT documented in this encounter Results * Legs-Dermatology Image Exam (03/24/2024 12:00 AM CDT) Narrative [facility] - 03/25/2024 10:01 AM CDT This order has been created and auto-finalized to support the import of images acquired without order. The clinical documentation to support these images can be found on the encounter that produced images. us Provider Not In System IMG NON RAD IMAGING PROCE DURES Final Result [facility] NA documented in this encounter Visit Diagnoses Not on filedocumented in this encounter Additional Health Concerns Assessment Noted Time PHQ-9 Depression Total Score: 1 06/12/19 24 4:14 PM ROOF MECHANIC documented as of this encounter Care Teams Nursing Assistant Relationship Specialty Start Date End Date Stefan Salomon M.D. MARIANOI: [phone] [id number] [place] [phone] PCP - General Family Medicine 07/09/22 Anticoagulation Team 07/09/22 documented as of this encounter
--- OUTSIDE RECORDS SUMMARY | 2024-03-31 08:04 | XMS_ITS | Encounter Summary ---
Author Organization [facility] Address [address] [place] [address] Care Team Providers Care Logistics Clerk Name Role Phone Stefan Salomon M.D. Primary Care Provider [phone] Reason for Visit * Reason Comments Med Refill Encounter Details Date Type Department Care Team (Late st Contact Info) Description 03/01/2024 Refill Department of Family Medicine, [facility], in [address] [phone] Stefan Salomon M.D. [address] [place] [phone] Med Refill Social History Tobacco Use Types [...] How often do you attend anabaptism or restorationist serv ices? Never 07/09/2022 Do [...] Date Recorded PHQ-2 Score 0 06/12/2023 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 [address] [place] [phone] 04/24/2024 9:30 AM WHEEL ALIGNER Anticoagulation Visit Department of Anticoagulation in [place], [place] [address] [place] [phone] Stefan Salomon M.D. [address] [place] [phone] 05/08/2024 10:30 AM WHEEL ALIGNER Appointment Department of Radiology, [facility], in [place], [place] [address] [place] [phone] Robert Perez M.B.B.S., Shar [address] [place] [phone] Discharge Disposition: Home or Self Care 05/08/2024 1:15 PM WHEEL ALIGNER Comprehensive Visit Department of Vascular Medicine in [place], [place] [address] [place] [phone] Shannon Young MPAS, P.A.-C. [address] [place] [phone] documented as of this encounter Visit Diagnoses Not on filedocumented in this encounter Additional Health Concerns Assessment Noted Time PHQ-9 Depression Total Score: 1 06/12/19 24 4:14 PM WHEEL ALIGNER documented as of this encounter Care Teams Logistics Clerk Relationship Specialty Start Date End Date Stefan Salomon M.D. [address] [place] [phone] PCP - General Family Medicine 07/09/22 Anticoagulation Team 07/09/22 documented as of this encounter
--- OUTSIDE RECORDS SUMMARY | 2024-03-31 08:04 | XMS_ITS | Encounter Summary ---
Author Organization [facility] Address [address] [place] [address] Care Team Providers Care Lockstitch Waistline Joiner Name Role Phone Stefan Salomon M.D. Primary Care Provider [phone] Reason for Visit * Outpatient (Routine) - Authorized Specialty Diagnoses / Procedures Referred By Contac t Referred To Contact Anticoagulation Diagnoses Anticoagulant Therapy Mutation Factor V Leiden Heterozygous (HCC) Monitoring For Therapeutic Drug Therapy Thrombosis Deep Vein Personal History Stefan Salomon M.D. [address] [phone] Phone: tel: fax: [facility] Referral ID Status Reason Start Date Expiration Date V isits Requested Visits Authorized [id number] Authorized 02/01/2023 01/31/2026 300 300 Encounter Details Date Type Department Care Team (Latest Contact Info) Description 01/03/2024 9:30 AM CDT Anticoagulation Visit Department of Anticoagulation in [place], [place] [address] [place] [phone] Stefan Salomon M.D. [address] [phone] Mutation Factor V Leiden Heterozygous [...] How often do you attend congregational or roman catholic serv ices? Never 07/09/2022 [...] Date Recorded PHQ-2 Score 0 06/12/2023 [facility] Occup[facility] - Occupational Stress [...] on file Legal Sex Male 4:51 PM BULK SEALER Gender Identity Male 07/02/2017 9:12 AM BULK SEALER Sexual Orientation Straight 07/02/2017 9: 12 AM BULK SEALER documented as of this encounter Patient Instructions [...] please call Primary Care Anticoagulation Program at [phone] from 7:30 am to 4:30 pm. Saturday-Saturday [...] if you start any herbal or other [id number]-[id number] product (check with your doctor, a nurse, [...] does NOT have atrial fibrillation/flutter, therefore no CHADS2/[id number] score calculated. Proceeded to maintenance warfarin dosing [...] (Latest Contact Info) Description 04/24/2024 8:50 AM BULK SEALER Appointment Department of Laboratory Medicine in [address] [phone] Stefan Salomon M.D. [address] [place] [phone] 04/24/2024 9:30 AM BULK SEALER Anticoagulation Visit Department of Anticoagulation in [address] [phone] Stefan Salomon M.D. [address] [place] [phone] 05/08/2024 10:30 AM BULK SEALER Appointment Department of Radiology, [facility], in [address] [phone] Robert Perez M.B.B.S., M.D. [address] [place] [phone] Discharge Disposition: Home or Self Care 05/08/2024 1:15 PM BULK SEALER Comprehensive Visit Department of Vascular Medicine in [place], [place] [address] [place] [phone] Shannon Young MPAS, P.A.-C. [address] [place] [phone] documented as of this encounter Results * INR Reflex, POCT, Blood (02/14/2024 7:21 AM CDT) INR Reflex, POCT, B 3.1 02/14/2024 7:21 AM CDT [facility] Comment: ----ADDITIONAL INFORMATION---- Standard intensity warfarin therapeutic range: 2.0 to 3.0 ?? High intensity warfarin therapeutic range: 2.5 to 3.5 Blood (Blood, Capillary) 02/14/2024 7:21 AM CDT 02/14/2024 7:21 AM CDT Stefan Salomon M.D. LAB POCT ORDERABLES - DEVIC E Final Result [facility] [address] [place] [phone], [facility] in [address] [address] documented in this encounter Visit Diagnoses Diagnosis Mutation Factor V Leiden Heterozygous (HCC)- Primary Anticoagulant Therapy Monitoring For Therapeutic Drug Therapy Thrombosis Deep Vein Personal History documented in this encounter Additional Health Concerns Assessment Noted Time PHQ-9 Depression Total Score: 1 06/12/19 24 4:14 PM BULK SEALER documented as of this encounter Care Teams Lockstitch Waistline Joiner Relationship Specialty Start Date End Date Stefan Salomon M.D. [address] [place] [phone] PCP - General Family Medicine 07/09/22 Anticoagulation Team 07/09/22 documented as of this encounter
--- OUTSIDE RECORDS SUMMARY | 2024-03-31 08:04 | XMS_ITS | Encounter Summary ---
Author Organization [facility] Address [address] [place] [address] Care Team Providers Care V Groove Cutter Name Role Phone Stefan Salomon M.D. Primary Care Provider [phone] Reason for Visit * Outpatient (Routine) - Authorized Specialty Diagnoses / Procedures Referred By Contdayana t Referred To Contact Anticoagulation Diagnoses Anticoagulant Therapy Mutation Factor V Leiden Heterozygous (HCC) Monitoring For Therapeutic Drug Therapy Thrombosis Deep Vein Personal History Stefan Salomon M.D. [address] [address] Phone: tel: fax: [facility] Referral ID Status Reason Start Date Expiration Date V isits Requested Visits Authorized [id number] Authorized 02/01/2023 01/31/2026 300 300 Encounter Details Date Type Department Care Team (Latest Contact Info) Description 03/16/2024 8:00 AM CDT Anticoagulation Visit Department of Anticoagulation in [place], [place] [address] [place] [address] Stefan Salomon M.D. [address] [phone] Anticoagulant Therapy [Z79.01] (Primary Dx); [...] week 07/09/2022 How often do you attend catholic or christian serv ices? Never 07/09/2022 Do you belong to any clubs o r organizations such as catholic groups, unions, fraternal or athletic groups, [...] Answer Date Recorded PHQ-2 Score 0 06/12/2023 [facility]at [...] on file Legal Sex Male 4:51 PM SOFTWARE DEVELOPMENT TEST ENGINEER Gender Identity Male 07/02/2017 9:12 AM SOFTWARE DEVELOPMENT TEST ENGINEER Sexual Orientation Straight 07/02/2017 9: 12 AM SOFTWARE DEVELOPMENT TEST ENGINEER documented as of this encounter Patient Instructions * Patient Instructions* Theresa Storey R.N. - 03/16/2024 8:00 AM CDT Your next INR will be 04/24/24. You will need to call the Anticoagulation Program at the time of your scheduled nurse visit or you can complete the Anticoagulation Pre-Visit Questionnaire and if no additional information is needed, your dosing can be provided via your Patient portal. To reschedule your appointment or for questions about your warfarin, please call Primary Care Anticoagulation Program at [phone] from 7:30 am to 4:30 pm. Saturday-Saturday [...] if you start any herbal or other poce-ebl-irkdkdo product (check with your doctor, a nurse, or pharmacist). If you change your diet significantly. If you decide to stop or start using tobacco or alcohol. If you notice unusual bruising or bleeding. If you notice dark, tarry, or bright red stools or blood in your urine. If you have a painful and swollen calf. documented in this encounter Plan of Treatment Upcoming Encounters Date Type Department Care Team (Latest Contact Info) Description 04/24/2024 8:50 AM SOFTWARE DEVELOPMENT TEST ENGINEER Appointment Department of Laboratory Medicine in [address] [phone] Stefan Salomon M.D. [address] [place] [phone] 04/24/2024 9:30 AM SOFTWARE DEVELOPMENT TEST ENGINEER Anticoagulation Visit Department of Anticoagulation in [address] [phone] Stefan Salomon M.D. [address] [place] [phone] 05/08/2024 10:30 AM SOFTWARE DEVELOPMENT TEST ENGINEER Appointment Department of Radiology, [facility], in [place], [place] [address] [place] [phone] Robert Perez M.B.B.S., M.D. [address] [place] [phone] Discharge Disposition: Home or Self Care 05/08/2024 1:15 PM SOFTWARE DEVELOPMENT TEST ENGINEER Comprehensive Visit Department of Vascular Medicine in [place], [place] [address] [place] [phone] Shannon Young MPAS, P.A.-C. [address] [place] [phone] Scheduled Orders Name Type Priority Associated Diagnoses Orde r Schedule INR Reflex, POCT, Blood Point of Care Testing-Docked Device Routine Anticoagulant Therapy [Z79.01] Mutation Factor V Leiden Heterozygous (HCC) Monitoring For Therapeutic Drug Therapy [Z51.81] Thrombosis Deep Vein Personal History Expected: 04/24/2024, Expires: 06/16/2025 documented as of this encounter Visit Diagnoses Diagnosis Anticoagulant Therapy [Z79.01]- Primary Mutation Factor V Leiden Heterozygous (HCC) Monitoring For Therapeutic Drug Therapy [Z51.81] Thrombosis Deep Vein Personal History documented in this encounter Additional Health Concerns Assessment Noted Time PHQ-9 Depression Total Score: 1 06/12/19 24 4:14 PM SOFTWARE DEVELOPMENT TEST ENGINEER documented as of this encounter Care Teams V Groove Cutter Relationship Specialty Start Date End Date Stefan Salomon M.D. [address] [place] [phone] PCP - General Family Medicine 07/09/22 Anticoagulation Team 07/09/22 documented as of this encounter
--- OUTSIDE RECORDS SUMMARY | 2024-03-31 08:04 | XMS_ITS ---
Author Organization [facility] Address [address] [place] [address] Care Team Providers Care Furnace Process Supervisor Name Role Phone Unavailable Unavailable Unavailable Surgery Details Not on file Complications Check Surgery Details section. Procedure Estimated Blood Loss Check Surgery Details section. Procedure Findings Check Surgery Details section. Procedure Specimens Taken Check Surgery Details section.
--- OUTSIDE RECORDS SUMMARY | 2024-03-31 08:04 | XMS_ITS | Referral Summary ---
Author Organization [facility] Address [address] [place] [address] Care Team Providers Care Digital Manager Name Role Phone Stefan Salomon M.D. Primary Care Provider [phone] Source Comments Patient records contain information from all sites at [facility]. For routine questions regarding patient records, call [phone] during business hours, M-F 8:00 AM - 5:00 PM Central Time. Record requests for emergency care only can be directed to [phone] at any time.[facility] Encounters Date Type Department Care Team Description 03/24/2024 Ancillary Procedure Department of Dermatology 03/24/2024 8:00 AM CDT Office Visit Department of Dermatology in [place], [place] [address] [place] [address] Andres Simeon M.D. 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 Anticoagulant Therapy [Z79.01] (Primary Dx); Mutation Factor V Leiden Heterozygous (HCC); Monitoring For Therapeutic Drug Therapy [Z51.81]; Thrombosis Deep Vein Personal History 03/13/2024 7:02 AM CDT - 03/13/2024 11:59 PM CDT Hospital Encounter Department of Laboratory Medicine in [address] [phone] Stefan Salomon M.D. Anticoagulant Therapy; Mutation Factor V Leiden Heterozygous (HCC); Monitoring For Therapeutic Drug Therapy; Thrombosis Deep Vein Personal History Discharge Disposition: Home or Self Care 03/04/2024 Refill Department of Family Medicine, [facility], in [address] [phone] Stefan Salomon M.D. Med Refill 03/01/2024 Refill Department of Family Medicine, [facility], in [place], [place] [address] [place] [address] Stefan Salomon M.D. Med Refill 02/14/2024 9:30 AM CDT Anticoagulation Visit Department of Anticoagulation in [address] [phone] Stefan Salomon M.D. Monitoring For Therapeutic Drug Therapy (Primary Dx); Anticoagulant Therapy; Mutation Factor V Leiden Heterozygous (HCC); Thrombosis Deep Vein Personal History 02/14/2024 7:16 AM CDT - 02/14/2024 11:59 PM CDT Hospital Encounter Department of Laboratory Medicine in [address] [phone] Stefan Salomon M.D. Anticoagulant Therapy; Mutation Factor V Leiden Heterozygous (HCC); Monitoring For Therapeutic Drug Therapy; Thrombosis Deep Vein Personal History Discharge Disposition: Home or Self Care 02/04/2024 Orders Only Department of Family Medicine, [facility], in [address] [phone] Stefan Salomon M.D. Anticoagulant Therapy [Z79.01] (Primary Dx); Mutation Factor V Leiden Heterozygous (HCC); Monitoring For Therapeutic Drug Therapy [Z51.81]; Thrombosis Deep Vein Personal History 02/03/2024 Refill Department of Family Medicine, [facility], in [address] [phone] Anuradha Galaviz M.D. Med Refill 01/03/2024 7:11 AM CDT - 01/03/2024 11:59 PM CDT Hospital Encounter Department of Laboratory Medicine in [address] [phone] Stefan Salomon M.D. Anticoagulant Therapy [Z79.01]; Mutation Factor V Leiden Heterozygous (HCC); Monitoring For Therapeutic Drug Therapy [Z51.81]; Thrombosis Deep Vein Personal History Discharge Disposition: Home or Self Care 01/03/2024 9:30 AM CDT Anticoagulation Visit Department of Anticoagulation in [place], [place] [address] [place] [address] Stefan Salomon M.D. Mutation Factor V Leiden Heterozygous (HCC) (Primary Dx); Anticoagulant Therapy; Monitoring For Therapeutic Drug Therapy; Thrombosis Deep Vein Personal History from Last 3 Months Allergies Active Allergy Reactions Criticality Noted Date Comments Atorvastatin Myalgia 02/08/2017 Leg Pain/Cramps Mzclopc-Mvq-Ves Reductase Inhibitors Other (see comments) 09/10/2022 Medications [...] Generalized 11/18/2011 Overview (07/02/2017): Saw Neurologist at [facility] on 09/16/2009. MRI lumbar spine done on [...] How often do you attend zoroastrian or islam serv ices? Never 07/09/2022 Do you belong [...] on file Legal Sex Male 4:51 PM RELATIONSHIP BANKER Gender Identity Male 07/02/2017 9:12 AM RELATIONSHIP BANKER Sexual Orientation Straight 07/02/2017 9: 12 AM RELATIONSHIP BANKER Last Filed Vital Signs Vital Sign Reading Time Taken Comments Blood Pressure 148/82 06/12/2023 4:23 PM RELATIONSHIP BANKER Pulse 63 06/12/2023 4:23 PM RELATIONSHIP BANKER Temperature 36.6 ??C (97.9 ??F) 06/12/2023 4:23 PM CS T Respiratory Rate 18 06/12/2023 4:23 PM RELATIONSHIP BANKER Oxygen Saturation 94% 06/12/2023 4:23 PM RELATIONSHIP BANKER Inhaled Oxygen Concentration - - Weight 95.6 kg (210 lb 12.2 oz) 06/12/2023 4:23 PM RELATIONSHIP BANKER Height 176.5 cm (5' 9.49) 08/01/2022 9:59 AM CS T Body Mass Index 30.69 08/01/2022 9:59 AM RELATIONSHIP BANKER Plan of Treatment Upcoming Encounters Date Type Department Care Team (Latest Contact Info) Description 04/24/2024 8:50 AM RELATIONSHIP BANKER Appointment Department of Laboratory Medicine in [address] [phone] Stefan Salomon M.D. [address] [place] [phone] 04/24/2024 9:30 AM RELATIONSHIP BANKER Anticoagulation Visit Department of Anticoagulation in [place], [place] [address] [place] [address] Stefan Salomon M.D. [address] [phone] 05/08/2024 10:30 AM RELATIONSHIP BANKER Appointment Department of Radiology, [facility], in [place], [place] [address] [place] [address] Robert Perez M.B.B.S., M.D. [address] [place] [phone] Discharge Disposition: Home or Self Care 05/08/2024 1:15 PM RELATIONSHIP BANKER Comprehensive Visit Department of Vascular Medicine in [place], [place] [address] [place] [phone] Shannon Young MPAS, P.A.-C. [address] [place] [phone] Medical Devices Implanted Type Area Pretzel Packer Device Identifier Shelf Expiration Date Model / Serial / Lot Mineralized Cancellous Bone 2.0 - Anne [id number] Implanted:Qty: 1 on 08/10/2015 Bone or Tissue Tooth [facility] Description:Device Manufactu [facility] - [facility]. Body Location - Other. tooth-13. Device Status Text - [id number]. Hardware E.G. Pins/Screws/Rk s Hardware e.g. pins/screws /rods Mouth Abutment Nobrpl Rp 4.3x5 - Anne [id number] Implanted:Qty: 1 on 07/03/2007 Hardware e.g. pins/screws /rods Tooth [employer] Description:Device Manufactu rer - [employer]. Body Location - Tooth 5. Device Status Text - [id number]. Screw Rst Curly Taper Rp 4.3x13.0 - Anne [id number] Implanted:Qty: 1 on 07/03/2007 Hardware e.g. pins/screws /rods Tooth [employer] Description:Device Manufactu rer - [employer]. Body Location - Tooth 5. Device Status Text - [id number]. Screw Nobrpl Curly Tap Fishing Vessel Deckhand 3.5x11.5 - Anne [id number] Implanted:Qty: 1 on 03/03/2012 Hardware e.g. pins/screws /rods Tooth [employer] Description:Device Manufactu rer - [employer]. Body Location - Tooth 29. Device Status Text - [id number]. Abutment Nobrpl Fishing Vessel Deckhand 3.5x5 - Anne [id number] Implanted:Qty: 1 on 03/03/2012 Hardware e.g. pins/screws /rods Tooth [employer] Description:Device Manufactu rer - [employer]. Body Location - Tooth 29. Device Status Text - [id number]. Abutment Nobrpl Fishing Vessel Deckhand 3.5x3 - Anne [id number] Implanted:Qty: 1 on 08/23/2014 Hardware e.g. pins/screws /rods Tooth [employer] Description:Device Manufactu rer - [employer]. Body Location - Other. tooth- 28. Device Status Text - [id number]. Abutment Nobrpl Fishing Vessel Deckhand 3.5x3 - Anne [id number] Implanted:Qty: 1 on 08/23/2014 Hardware e.g. pins/screws /rods Tooth [employer] Description:Device Manufactu rer - [employer]. Body Location - Other. tooth- 28. Device Status Text - [id number]. Screw Nobrpl Curly Taper Fishing Vessel Deckhand 3.5x13.0 - Anne [id number] Implanted:Qty: 1 on 08/23/2014 Hardware e.g. pins/screws /rods Tooth [employer] Description:Device Manufactu rer - [employer]. Body Location - Other. tooth- 28. Device Status Text - [id number]. Screw Nobrpl Curly Taper Rp 4.3x10.0 - Anne [id number] Implanted:Qty: 1 on 08/10/2015 Hardware e.g. pins/screws /rods Tooth [employer] Description:Device Manufactu rer - [employer]. Body Location - Other. tooth- 20. Device Status Text - [id number]. Brane Fix Rst Tiunite Rp 4.3 X 13.0 - Anne [id number] Implanted:Qty: 1 on 08/10/2015 Hardware e.g. pins/screws /rods Tooth [employer] Description:Device Manufactu rer - [employer]. Body Location - Other. tooth- 21. Device Status Text - [id number]. Brane Fix Rst Tiunite Rp 4.3 X 13.0 - Anne [id number] Implanted:Qty: 1 on 08/10/2015 Hardware e.g. pins/screws /rods Tooth [employer] Description:Device Manufactu rer - [employer]. Body Location - Other. tooth- 13. Device Status Text - [id number]. Brane Fix Rst Tiunite Rp 4.3 X 13.0 - Anne [id number] Implanted:Qty: 1 on 08/10/2015 Hardware e.g. pins/screws /rods Tooth [employer] Description:Device Manufactu rer - [employer]. Body Location - Other. tooth- 11. Device Status Text - [id number]. Abutment Nobrpl Rp 4.3x3 - Anne [id number] Implanted:Qty: 1 on 02/08/2016 Hardware e.g. pins/screws /rods Tooth [employer] Description:Device Manufactu rer - [employer]. Body Location - Other. tooth- 20. Device Status Text - [id number]. Abutment Nobrpl Rp 5.3x3 - Anne [id number] Implanted:Qty: 1 on 02/08/2016 Hardware e.g. pins/screws /rods Tooth [employer] Description:Device Manufactu rer - [employer]. Body Location - Other. tooth- 13. Device Status Text - [id number]. Abutment Nobrpl Rp 4.3x3 - Anne [id number] Implanted:Qty: 1 on 02/08/2016 Hardware e.g. pins/screws /rods Tooth [employer] Description:Device Manufactu rer - [employer]. Body Location - Other. tooth- 21. Device Status Text - [id number]. Abutment Nobrpl Rp 4.3x3 - Anne [id number] Implanted:Qty: 1 on 02/08/2016 Hardware e.g. pins/screws /rods Tooth [employer] Description:Device Manufactu rer - [employer]. Body Location - Other. tooth- 11. Device Status Text - [id number]. Patch Dura-Guard 4x 4 - Anne [id number] Implanted:Qty: 1 on 08/19/1996 Mesh or Patch [employer] Description:Device Manufactu rer - [employer]. Device Status Text - [id number]. Allograft Bioxclude Chorion 1cm X 2.5cm - Anne [id number] Implanted:Qty: 1 on 01/15/2014 Mesh or Patch Tooth Unknown Description:Device Manufactu rer - Unknown. Body Location - tooth-28. Device Status Text - [id number]. Allograft Bioxclude Chorion 1cm X 2.5cm - Anne [id number] Implanted:Qty: 1 on 01/15/2014 Mesh or Patch Tooth Unknown Description:Device Manufactu rer - Unknown. Body Location - tooth-5. Device Status Text - [id number]. Allograft Bioxclude Chorion 1.5cm X 2cm - Anne [id number] Implanted:Qty: 1 on 08/10/2015 Mesh or Patch Other/Legacy - See Implant Description Unknown Description:Device Manufactu rer - Unknown. Body Location - Other. Left. Device Status Text - [id number]. Procedures Procedure Name Priority Date/Time Associated Diagnosis [...] LIPID PANEL, S Routine 04/19/2023 7:39 AM RELATIONSHIP BANKER Hyperlipidemia BASIC METABOLIC PANEL, S/P Routine 04/19/2023 7:39 AM RELATIONSHIP BANKER Hypertension Essential Primary HCV AB SCRN W/REFLEX TO HCV PCR, S Routine 06/15/2016 9:01 AM RELATIONSHIP BANKER COLONOSCOPY Routine 12/27/2014 US AORTA Routine 11/09/2014 [...] NON RAD IMAGING PROCE DURES Final Result IIAL NA * INR Reflex, POCT, Blood (03/13/2024 7:09 AM CDT) Only the most recent of3 resultswithin the time period is included. INR Reflex, POCT, B 2.3 03/13/2024 7:09 AM CDT CNME Comment: ----ADDITIONAL INFORMATION---- Standard intensity warfarin therapeutic range: 2.0 to 3.0 ?? High intensity warfarin therapeutic range: 2.5 to 3.5 Blood (Blood, Capillary) 03/13/2024 7:09 AM CDT 03/13/2024 7:09 AM CDT Stefan Salomon M.D. LAB POCT ORDERABLES - DEVIC E Final Result [facility] [address] [place] [address], [place] [facility] [address] [address] * Lipid Panel (04/19/2023 7:39 AM RELATIONSHIP BANKER) Triglycerides 113 mg/dL 04/19/2023 11:48 AM RELATIONSHIP BANKER CNFL Comment: ----REFERENCE VALUE---- Normal: <150 mg/dL Borderline High: 150-199 mg/dL High: 200-499 mg/dL Very High: > or =500 mg/dL Cholesterol, Total 144 mg/dL 2022 11:48 AM RELATIONSHIP BANKER CNFL Comment: ----REFERENCE VALUE---- Desirable: < 200 mg/dL Borderline High: 200 - 239 mg/dL High: > or = 240 mg/dL Cholesterol, LDL, Calculated 76 mg/dL 04/19/2023 12:10 PM RELATIONSHIP BANKER CNFL Comment: ----REFERENCE VALUE---- Desirable: <100 mg/dL Above Desirable: 100-129 mg/dL Borderline High: 130-159 mg/dL High: 160-189 mg/dL Very High: >=190 mg/dL ----ADDITIONAL INFORMATION---- LDL cholesterol calculated using the Sosa/NIH equation. Cholesterol, HDL 48 >=40 mg/dL 04/19/20 12:10 PM RELATIONSHIP BANKER CNFL Cholesterol, Non-HDL, Calculated 96 mg/dL 04/19/2023 12:10 PM RELATIONSHIP BANKER CNFL Comment: ----REFERENCE VALUE---- Desirable: <130 mg/dL Above Desirable: 130-159 mg/dL Borderline High: 160-189 mg/dL High: 190-219 mg/dL Very High: > or =220 mg/dL Fasting (8 HR or more) No 04/19/2023 7:40 AM RELATIONSHIP BANKER CNFL Blood (Blood, Venous) 04/19/2023 7:39 AM RELATIONSHIP BANKER 04/19/2023 7:40 AM RELATIONSHIP BANKER us Stefan Salomon M.D. LAB BLOOD ADD-ON Final Resu lt [facility] [address] [place] [address], [facility] in [address] [address] * Basic Metabolic Panel (04/19/2023 7:39 AM RELATIONSHIP BANKER) Potassium, P 4.1 3.6 - 5.2 mmol/L 04/19/2023 11:48 AM RELATIONSHIP BANKER CNFL Sodium, P 138 135 - 145 mmol/L 04/19/2023 11:48 AM RELATIONSHIP BANKER CNFL Chloride, P 102 98 - 107 mmol/L 04/19/2023 11:48 AM RELATIONSHIP BANKER CNFL Bicarbonate, P 23 22 - 29 mmol/L 04/19/2023 11:48 AM RELATIONSHIP BANKER CNFL Anion Gap, P 13 7 - 15 04/19/2023 11:48 AM RELATIONSHIP BANKER CNFL BUN (Blood Urea Nitrogen), P 21 8 - 24 mg/dL 04/19/2023 11:48 AM RELATIONSHIP BANKER CNFL Creatinine 0.87 0.74 - 1.35 mg/dL 04/19/2023 11:48 AM RELATIONSHIP BANKER CNFL Estimated GFR (eGFR) >90 >=60 mL/min/BSA 04/19/2023 11:48 AM RELATIONSHIP BANKER CNFL Comment: Estimated GFR calculated using the 2020 CKD_EPI creatinine equation. Calcium, Total, P 9.1 8.8 - 10.2 mg/dL 04/19/2023 11:48 AM RELATIONSHIP BANKER CNFL Glucose, P 103 70 - 140 mg/dL 04/19/2023 11:48 AM RELATIONSHIP BANKER CNFL Blood (Blood, Venous) 04/19/2023 7:39 AM RELATIONSHIP BANKER 04/19/2023 7:40 AM RELATIONSHIP BANKER us Stefan Salomon M.D. LAB BLOOD ADD-ON Final Resu lt [facility] [address] [place] [address], [facility] in [address] [address] * HCV Ab w/Reflex to HCV PCR, S (medicare) (06/15/2016 9:01 AM RELATIONSHIP BANKER) HXHCV Ab [facility] Reactive Negative POWERCHART Comment: Supplemental testing for HCV RNA is ordered to rule out active HCV infection. Vvmemo-md-cpwszq ratio is >=1.00 and <8.00. Test Performed by: [address] [address] Stemming Machine Operator: Armando Chavez II, M.D., Ph.D. Blood 06/15/2016 9:01 AM RELATIONSHIP BANKER Abraham Valle M.D. LAB MICROBIOLOGY - BLOOD ORDERAB LES Final Result POWERCHART * Colonoscopy (12/27/2014) EXT Colonoscopy Abnormal [...] Normal abdominal aorta Sulaiman Ordaz Jr., R.D.[facility] [place] PROCEDU RES Edited Result - Final from Last 3 Months or Most Recently Relevant to Health Maintenance Insurance MEDICARE [facility] Care Teams Digital Manager Relationship Specialty Start Date End Date Stefan Salomon M.D. [address] [phone] PCP - General Family Medicine 07/09/22 Anticoagulation Team 07/09/22
--- OUTSIDE RECORDS SUMMARY | 2024-03-31 08:04 | XMS_ITS | Encounter Summary ---
Author Organization [facility] Address [address] [place] [address] Care Team Providers Care Safety Representative Name Role Phone Stefan Salomon M.D. Primary Care Provider [phone] Encounter Details Date Type Department Care Team (Latest Contact Info) Description 01/03/2024 7:11 AM CDT - 01/03/2024 11:59 PM CDT Hospital Encounter Department of Laboratory Medicine in [address] [phone] Stefan Salomon M.D. [address] [place] [phone] Anticoagulant Therapy [Z79.01]; Mutation Factor V Leiden [...] often do you attend latter day or shinto serv ices? Never 07/09/2022 Do [...] Answer Date Recorded PHQ-2 Score 0 06/12/2023 [facility] - Occupational Stress Questionnaire [...] on file Legal Sex Male 4:51 PM INVESTIGATIVE WRITER Gender Identity Male 07/02/2017 9:12 AM INVESTIGATIVE WRITER Sexual Orientation Straight 07/02/2017 9: 12 AM INVESTIGATIVE WRITER documented as of this encounter Medications at [...] for pain 240 tablet 4 01/09/20 24 documented as of this encounter Plan of Treatment Upcoming Encounters Date Type Department Care Team (Latest Contact Info) Description 04/24/2024 8:50 AM INVESTIGATIVE WRITER Appointment Department of Laboratory Medicine in [address] [phone] Stefan Salomon M.D. [address] [place] [phone] 04/24/2024 9:30 AM INVESTIGATIVE WRITER Anticoagulation Visit Department of Anticoagulation in [address] [phone] Stefan Salomon M.D. [address] [place] [address] [phone] 05/08/2024 10:30 AM INVESTIGATIVE WRITER Appointment Department of Radiology, [facility], in [address] [phone] Robert Perez M.B.B.S., M.D. [address] [place] [phone] Discharge Disposition: Home or Self Care 05/08/2024 1:15 PM INVESTIGATIVE WRITER Comprehensive Visit Department of Vascular Medicine in [address] [phone] Shannon Young MPAS, P.A.-C. [address] [place] [phone] documented as of this encounter Procedures Procedure [...] 7:17 AM CDT 01/03/2024 7:19 AM CDT us Generic Rals LAB POCT ORDERABLES - DEVICE Fin al Result Performing Organization Address City/State/RUST Co de Phone Number [facility] [address] [place] [phone], [facility] CNFL [facility] in [address] [address] documented in this encounter Visit Diagnoses Diagnosis Anticoagulant Therapy [Z79.01] Mutation Factor V Leiden Heterozygous (HCC) Monitoring For Therapeutic Drug Therapy [Z51.81] Thrombosis Deep Vein Personal History documented in this encounter Additional Health Concerns Assessment Noted Time PHQ-9 Depression Total Score: 1 06/12/19 24 4:14 PM INVESTIGATIVE WRITER documented as of this encounter Care Teams Safety Representative Relationship Specialty Start Date End Date Stefan Salomon M.D. ELANA: [phone] [address] [place] [phone] PCP - General Family Medicine 07/09/22 Anticoagulation Team 07/09/22 documented as of this encounter
--- OUTSIDE RECORDS SUMMARY | 2024-03-31 08:04 | XMS_ITS | Encounter Summary ---
Author Organization [facility] Address [address] [place] [address] Care Team Providers Care Staffing Manager Name Role Phone Stefan Salomon M.D. Primary Care Provider [phone] Encounter Details Date Type Department Care Team (Latest Contact Info) Description 03/13/2024 7:02 AM CDT - 03/13/2024 11:59 PM CDT Hospital Encounter Department of Laboratory Medicine in [address] [phone] Stefan Salomon M.D. [address] [place] [phone] Anticoagulant Therapy; Mutation Factor V Leiden Heterozygous [...] How often do you attend quaker or jewish serv ices? Never 07/09/2022 Do [...] Score 0 06/12/2023 [facility] ional Health - [...] on file Legal Sex Male 4:51 PM REVENUE CYCLE MANAGER Gender Identity Male 07/02/2017 9:12 AM REVENUE CYCLE MANAGER Sexual Orientation Straight 07/02/2017 9: 12 AM REVENUE CYCLE MANAGER documented as of this encounter Medications at Time of Discharge acetaminophen (TYLENOL) 500 mg capsule Take 500 mg by mouth every 6 (six) hours as needed for pain. Takes 4,000 mg usually each day amLODIPine (Norvasc) 10 mg tablet take one tablet by mouth every day 90 tablet 4 fluocinonide (LIDEX) 0.05 % cream Apply twice [...] prior to report time 4000 mL 3 traMADoL (Ultram) 50 mg tabletIndications :Chronic Pain/Nonacute Pain Take 1-2 tablets (50-100 mg total) by mouth every 6 (six) hours as needed for pain Indications: Chronic Pain/Nonacute Pain. 240 tablet 4 triamcinolone (KENALOG) 0.1 % creamIndications: Pruritus Apply [...] your Anticoagulation Clinic. 118 tablet 3 4 documented as of this encounter Plan of Treatment Upcoming Encounters Date Type Department Care Team (Latest Contact Info) Description 04/24/2024 8:50 AM REVENUE CYCLE MANAGER Appointment Department of Laboratory Medicine in [address] [phone] Stefan Salomon M.D. [address] [place] [phone] 04/24/2024 9:30 AM REVENUE CYCLE MANAGER Anticoagulation Visit Department of Anticoagulation in [address] [phone] Stefan Salomon M.D. [address] [place] [phone] 05/08/2024 10:30 AM REVENUE CYCLE MANAGER Appointment Department of Radiology, [facility], in [address] [phone] Robert Perez M.B.B.S., Shar [address] [place] [phone] Discharge Disposition: Home or Self Care 05/08/2024 1:15 PM REVENUE CYCLE MANAGER Comprehensive Visit Department of Vascular Medicine in [address] [phone] Shannon Young MPAS, P.A.-C. [address] [place] [phone] documented as of this encounter Procedures Procedure Name Priority Date/Time Associated Diagnosis Comments INR REFLEX, POCT, B Routine 03/13/2024 7:09 AM CDT Anticoagulant Therapy Mutation Factor V Leiden Heterozygous (HCC) Monitoring For Therapeutic Drug Therapy Thrombosis Deep Vein Personal History documented in this encounter Results * INR Reflex, POCT, Blood (03/13/2024 7:09 AM CDT) INR Reflex, POCT, B 2.3 03/13/2024 7:09 AM CDT CNFL Comment: ----ADDITIONAL INFORMATION---- Standard intensity warfarin therapeutic range: 2.0 to 3.0 ?? High intensity warfarin therapeutic range: 2.5 to 3.5 Blood (Blood, Capillary) 03/13/2024 7:09 AM CDT 03/13/2024 7:09 AM CDT Stefan Salomon M.D. LAB POCT ORDERABLES - DEVIC E Final Result [facility] [address] [place] [phone], [facility] in [address] [address] documented in this encounter Visit Diagnoses Diagnosis Anticoagulant Therapy Mutation Factor V Leiden Heterozygous (HCC) Monitoring For Therapeutic Drug Therapy Thrombosis Deep Vein Personal History documented in this encounter Additional Health Concerns Assessment Noted Time PHQ-9 Depression Total Score: 1 06/12/19 24 4:14 PM REVENUE CYCLE MANAGER documented as of this encounter Care Teams Staffing Manager Relationship Specialty Start Date End Date Stefan Salomon M.D. [address] [place] [phone] PCP - General Family Medicine 07/09/22 Anticoagulation Team 07/09/22 documented as of this encounter
--- OUTSIDE RECORDS SUMMARY | 2024-03-31 08:04 | XMS_ITS | Encounter Summary ---
Author Organization [facility] Address [address] [place] [address] Care Team Providers Care Burn Out Tender Lace Name Role Phone Stefan Salomon M.D. Primary Care Provider [phone] Reason for Referral * Outpatient (Routine) - Authorized Specialty Diagnoses / Procedures Referred By Contac t Referred To Contact Dermatology Diagnoses Stasis Dermatitis Venous Lower Extremity Left Procedures [employer] Robert Perez M.B.B.S., M.D. [address] [place] [address] Phone: tel: fax: [facility] Referral ID Status Reason Start Date Expiration Date V isits Requested Visits Authorized [id number] Authorized 03/24/2024 03/24/2025 1 1 * Outpatient (Routine) - Authorized Specialty Diagnoses / Procedures Referred By Contac t Referred To Contact Vascular Medicine Diagnoses Stasis Dermatitis Venous Lower Extremity Left Robert Perez M.B.B.S., M.D. [address] [place] [address] Phone: tel: fax: [facility] Referral ID Status Reason Start Date Expiration Date V isits Requested Visits Authorized [id number] Authorized 03/24/2024 09/23/2025 1 1 * Outpatient (Routine) - Authorized Specialty Diagnoses / Procedures Referred By Contac t Referred To Contact Diagnoses Stasis Dermatitis Venous Lower Extremity Left Procedures US Lower Extremity Venous Insufficiency Bilateral Robert Perez M.B.B.S., M.D. [address] [place] [phone] Phone: tel: fax: [facility] Referral ID Status Reason Start Date Expiration Date V isits Requested Visits Authorized [id number] Authorized 03/24/2024 03/24/2025 1 1 * Outpatient (Routine) - Authorized Specialty Diagnoses / Procedures Referred By Contac t Referred To Contact Vascular Surgery Diagnoses Stasis Dermatitis Venous Lower Extremity Left Robert Perez M.B.B.S., M.D. [address] [place] [address] Phone: tel: fax: [facility] Referral ID Status Reason Start Date Expiration Date V isits Requested Visits Authorized [id number] Authorized 03/24/2024 09/23/2025 1 1 Reason for Visit * Appointment Request (Routine) - Closed Specialty Diagnoses / Procedures Referred By Contac t Referred To Contact Dermatology Diagnoses Screening Skin Condition Referral ID Status Reason Start Date Expiration Date Visits Re quested Visits Authorized [id number] Closed 03/11/2024 03/11/2025 1 1 Encounter Details Date Type Department Care Team (Late st Contact Info) Description 03/24/2024 8:00 AM CDT Office Visit Department of Dermatology in [place], [place] [address] [place] [phone] Andres Simeon M.D. [address] [place] [phone] Stasis Dermatitis Venous Lower Extremity Left (Primary Dx) Discharge Disposition: Home or Self Care Social [...] How often do you attend jain or quaker serv ices? 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 - 03/24/2024 8:00 AM CDT Correspondence To: Andres Simeon M.D. Referring provider: No ref. provider found Supervising legal nurse consultant, Dr. Ginette Zamora, supervised the visit. SUBJECTIVE CHIEF COMPLAINT/REASON FOR VISIT Skin check and stasis dermatitis HISTORY OF PRESENT ILLNESS Wesley Bautista is a 73 y.o. male who has been referred by No ref. provider found on 03/24/24 for the above chief complaint. They have no history of skin cancer. He will intermittently use Efudex for 3 weeks at a time every year. They have 1 spot(s) that they are worried about today face. Nothing that is bleeding easily orgrowing rapidly. Additionally he wanted to discuss his bilateral legs. He has not seen any significant improvement. He currently undergoes significant compression stockings at home and even has an air pump device that he uses. REVIEW OF SYSTEMS Denies history of any other rash or lesion MEDICAL/SURGICAL HISTORY Reviewed OBJECTIVE PHYSICAL EXAMINATION General: Well appearing male in no acute distress. Alert and Oriented. Skin: I examined the face and scalp and legs On the face and scalp, there is/are gritty, erythematous macule(s) x 4 On the bilateral lower extremities, there is/are ill-defined erythematous, eczematous-appearing papules coalescing into plaque in the in the background of significant hemosiderotic deposition and stasis changes. On the bilateral ankles as well they are open venous stasis ulcers ASSESSMENT / PLAN # Actinic keratoses, face and scalp x 4 Given the precancerous nature of this lesion(s), treatment is medically indicated. After discussionof the risks, benefits and alternatives to treatment with cryotherapy, informed consent was obtained. We treated the aforementioned lesion(s) with 1-2, 20-second freeze-thaw cycles of liquid nitrogencryotherapy. The patient tolerated the procedure well. Aftercare instructions were provided in written and verbal form to the patient. Should any of these lesions recur, the patient should return forbiopsy or further evaluation. Discussed the risks, benefits, alternatives, and the necessity of other members of the healthcare team participating in the procedure. All questions answered and consentgiven. #Actinic Keratoses, face and scalp, innumerable Given the widespread actinic keratoses field treatment is recommended. We discussed the side effects including burning, irritation, redness, and tenderness. I advised them to limit their exposure to the sun as well. Plan Start Efudex 5% cream as a monotherapy twice a day for 3 weeks # Skin cancer screening examination, limited to the face and scalp # Dermatoheliosis Discussed with the patient that if any of the lesions change, bleed, or begin to grow rapidly, to let us know when we will re-evaluate them sooner. Sun protection and sun avoidance were reviewed with the patient. The warning signs and symptoms of skin cancer and the proper use of sunscreens were reviewed. My recommendation is using SPF >30, with frequent applications every 2 hours. # Stasis dermatitis, with venous ulcers, complicated by stasis ulcers, currently on compression stockings with at-home air pump device Stasis dermatitis is skin irritation and breakdown due to the fluid accumulating under the skin. Itching and red, dry areas are usually the first signs of stasis dermatitis. Swelling (edema) is usually present, but in chronic cases of stasis dermatitis, there is gradual tightening and scarring of the skin leading to hard and sometimes tender areas. In severe cases of stasis dermatitis, the skin breaks down with oozing, crusted areas and ulceration. The most important step is to correct the underlying problem causing the fluid buildup. It is also important to understand that the condition is usually a chronic one requiring ongoing care for the rest of one's life. In the future, we can consider oral pentoxifylline Plan Referral to our vascular medicine colleagues to see if he would be a candidate for any procedures for his venous disease Referral to our vascular Wound Care team to see if they can give him any recommendations that maybedifferent than his local venous wound care team Triamcinolone 0.1% cream applied twice daily to legs, until the rash resolves. Once resolved, do not continue using on normal appearing skin. General measures If the stasis dermatitis is mild and clearly related to leg swelling, which is minimal upon arisingin the morning but worse after a day of standing, simple measures can assist the veins and reduce the chance of progression of the disease. These steps include: Wearing elastic support hose (worn to at least knee height) should be put on in the morning upon arising. Many non-prescription and attractive styles are available for men and women. Although they are initially tight, discomfort is less as the swelling is controlled. Raising the legs above the level of the heart when sitting reduces fluid buildup. Practicing a proper skin-care routine, which includes using only mild soaps or cleansers and applying a moisturizer (such as petrolatum) after each bath on the legs. Avoiding the use of other creams or topical antibiotics, as allergic reactions are common. Citation: Real Ding, Devang N, Moreno BARRIENTOS, Bob N. Patient Information for Stasis dermatitis. In: Lynne JUAREZ ed. [employer]. [place], [place]: [employer]; 2016. URL: [email or web address]. Accessed October 06, 2021. Follow-up: 1 year Orders Placed This Encounter [employer] Prospect Contact Numbers: [facility] page [[phone]] [facility] page [[phone]] [facility] page [[phone]] Clinic call [[phone]] [place] Contact Numbers: [facility] page [[phone]] [facility] [place] page [[phone] or [phone]] [facility] Clinical page [[phone]] [facility] page [[phone]] [facility] page [[phone]] [facility] Cos[facility] Clinic page [[phone]] Order Specific Question: Has patient consent ([id number]) been obtained/recorded? Answer: Yes Order Specific Question: Areas/Protocols to be Photographed Answer: legs and leg ulcers Order Specific Question: Region Answer: [facility] [[id number]] Order Specific Question: Image Type Answer: Still Images Order Specific Question: Ordering Provider Name Answer: ANDRES SIMEON [[id number]] Order Specific Question: Ordering Provider Specialty Answer: Dermatology US Lower Extremity Venous Insufficiency Bilateral Standing Status: Future Standing Expiration Date: 06/24/2025 Order Specific Question: Clinical question to be answered Answer: venous insufficiency? Order Specific Question: Region: Answer: [facility] [[id number]] Order Specific Question: Should the communication of this result to the patient???s portal be released immediately? Answer: Release Immediately Vascular Surgery - Venous / varicose vein / sclero consult (clinic) Standing Status: Future Standing Expiration Date: 06/24/2025 Referral Priority: Routine Referral Type: Outpatient Referral Location: [facility] Requested Specialty: Vascular Surgery Number of Visits Requested: 1 Vascular Medicine - Vascular wound care consult (clinic) Standing Status: Future Standing Expiration Date: 06/24/2025 Referral Priority: Routine Referral Type: Outpatient Referral Location: [facility] Number of Visits Requested: 1 triamcinolone (Kenalog) 0.1 % cream Sig: Apply 1 Application topically 2 (two) times a day as needed (Rash). Apply to legs twice a day until itchy red rash goes away. Dispense: 240 g Refill: 3 fluorouraciL (Efudex) 5 % cream Sig: Apply 1 Application topically 2 (two) times a day. Apply to face and scalp. Dispense: 40 g Refill: 2 All questions answered. Andres Simeon PGY-4 Dermatology Resident Cosigned by Ginette Zamora M.D. at 03/24/2024 10:14 AM CDT Associated attestation - Ginette Zamora M.D. - 03/24/2024 10:14 AM CDT I was present during all critical and dsouza portions of the procedure(s) and immediately available [facility] services the entire duration. See resident/fellow note for details. documented in this encounter Plan of Treatment Upcoming Encounters Date Type Department Care Team (Latest Contact Info) Description 04/24/2024 8:50 AM ELECTRICAL SYSTEMS DESIGN ENGINEER Appointment Department of Laboratory Medicine in [address] [phone] Stefan Salomon M.D. [address] [place] [phone] 04/24/2024 9:30 AM ELECTRICAL SYSTEMS DESIGN ENGINEER Anticoagulation Visit Department of Anticoagulation in [place], [place] [address] [place] [phone] Stefan Salomon M.D. [address] [place] [phone] 05/08/2024 10:30 AM ELECTRICAL SYSTEMS DESIGN ENGINEER Appointment Department of Radiology, [facility], in [place], [place] [address] [place] [phone] Robert Perez M.B.B.S., M.D. [address] [place] [phone] Discharge Disposition: Home or Self Care 05/08/2024 1:15 PM ELECTRICAL SYSTEMS DESIGN ENGINEER Comprehensive Visit Department of Vascular Medicine in [place], [place] [address] [place] [phone] Shannon Young, ARCADIOS, P.A.-C. [address] [place] [phone] Scheduled Orders Name Type Priority Associated Diagnoses Order Schedule US Lower Extremity Venous Insufficiency Bilateral Imaging RAD - Routine (most inpatients and all outpatients) Stasis Dermatitis Venous Lower Extremity Left Expected: 03/24/2024, Expires: 06/24/2025 [employer] Procedures Routine Stasis Dermatitis Venous Lower Extremity Left Ordered: 03/24/2024 Scheduled Referrals Name Type Priority Associated Diagnoses Orde r Schedule Vascular Surgery - Venous / varicose vein / sclero consult (clinic) Outpatient Referral Routine Stasis Dermatitis Venous Lower Extremity Left Expected: 03/24/2024, Expires: 06/24/2025 Vascular Medicine - Vascular wound care consult (clinic) Outpatient Referral Routine Stasis Dermatitis Venous Lower Extremity Left Expected: 03/24/2024, Expires: 06/24/2025 documented as of this encounter Visit Diagnoses Diagnosis Stasis Dermatitis Venous Lower Extremity Left- Primary documented in this encounter Additional Health Concerns Assessment Noted Time PHQ-9 Depression Total Score: 1 06/12/19 24 4:14 PM ELECTRICAL SYSTEMS DESIGN ENGINEER documented as of this encounter Care Teams Burn Out Tender Lace Relationship Specialty Start Date End Date Stefan Salomon M.D. [phone] [phone] PCP - General Family Medicine 07/09/22 Anticoagulation Team 07/09/22 documented as of this encounter
--- OUTSIDE RECORDS SUMMARY | 2024-03-31 08:04 | XMS_ITS | Encounter Summary ---
Author Organization [facility] Address [address] [place] [address] Care Team Providers Care Precision Machining Instructor Name Role Phone Stefan Salomon M.D. Primary Care Provider [phone] Reason for Visit * Outpatient (Routine) - Authorized Specialty Diagnoses / Procedures Referred By Contac t Referred To Contact Anticoagulation Diagnoses Anticoagulant Therapy Mutation Factor V Leiden Heterozygous (HCC) Monitoring For Therapeutic Drug Therapy Thrombosis Deep Vein Personal History Stefan Salomon M.D. [address] [phone] Phone: tel: fax: [facility] Referral ID Status Reason Start Date Expiration Date V isits Requested Visits Authorized [id number] Authorized 02/01/2023 01/31/2026 300 300 Encounter Details Date Type Department Care Team (Latest Contact Info) Description 02/14/2024 9:30 AM CDT Anticoagulation Visit Department of Anticoagulation in [place], [place] [address] [place] [address] Setfan Salomon M.D. [address] [phone] Monitoring For Therapeutic Drug Therapy (Primary Dx); Anticoagulant Therapy; Mutation Factor V Leiden Heterozygous (HCC); Thrombosis Deep Vein Personal History Social History [...] How often do you attend taoism or mandaen serv ices? Never 07/09/2022 Do [...] Answer Date Recorded PHQ-2 Score 0 06/12/2023 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 - 02/14/2024 9:30 AM CDT Your next INR will be 10/11. You will need to call the Anticoagulation Program for warfarin dosing at the scheduled time for your nurse visit, as indicated on your Patient Appointment Guide (PAG). To reschedule your appointment or for questions about your warfarin, please call Primary Care Anticoagulation Program at [phone] from 7:30 am to 4:30 pm. Saturday-Saturday [...] if you start any herbal or other [id number]-[id number] product (check with your doctor, a nurse, or pharmacist). If you change your diet significantly. If you decide to stop or start using tobacco or alcohol. If you notice unusual bruising or bleeding. If you notice dark, tarry, or bright red stools or blood in your urine. If you have a painful and swollen calf. documented in this encounter Progress Notes * Thereas Storey RKimberly. - 02/14/2024 9:30 AM CDT Warfarin Maintenance Nursing Protocol [...] (Latest Contact Info) Description 04/24/2024 8:50 AM SYRUP FILTERER Appointment Department of Laboratory Medicine in [address] [phone] Stefan Salomon M.D. [address] [place] [phone] 04/24/2024 9:30 AM SYRUP FILTERER Anticoagulation Visit Department of Anticoagulation in [place], [place] [address] [place] [address] Stefan Salomon M.D. [address] [phone] 05/08/2024 10:30 AM SYRUP FILTERER Appointment Department of Radiology, [facility], in [place], [place] [address] [place] [phone] Robert Perez M.B.B.S., M.D. [address] [place] [phone] Discharge Disposition: Home or Self Care 05/08/2024 1:15 PM SYRUP FILTERER Comprehensive Visit Department of Vascular Medicine in [place], [place] [address] [place] [phone] Shannon Young MPAS, P.A.-C. [address] [place] [phone] documented as of this encounter Results * [...] POCT ORDERABLES - DEVIC E Final Result [facility] [address] [place] [id number], [facility] in [address] [address] documented in this encounter Visit Diagnoses Diagnosis Monitoring For Therapeutic Drug Therapy- Primary Anticoagulant Therapy Mutation Factor V Leiden Heterozygous (HCC) Thrombosis Deep Vein Personal History documented in this encounter Additional Health Concerns Assessment Noted Time PHQ-9 Depression Total Score: 1 06/12/19 24 4:14 PM SYRUP FILTERER documented as of this encounter Care Teams Precision Machining Instructor Relationship Specialty Start Date End Date Stefan Salomon M.D. [address] [place] [phone] PCP - General Family Medicine 07/09/22 Anticoagulation Team 07/09/22 documented as of this encounter
--- OUTSIDE RECORDS SUMMARY | 2024-03-31 08:04 | XMS_ITS | Encounter Summary ---
Author Organization [facility] Address [address] [place] [address] Care Team Providers Care All Source Intelligence Technician Name Role Phone Stefan Salomon M.D. Primary Care Provider [phone] Reason for Visit * Reason Comments Med Refill Encounter Details Date Type Department Care Team (Late st Contact Info) Description 02/03/2024 Refill Department of Family Medicine, [facility], in [address] [phone] Anuradha Galaviz M.D. [address] [place] [phone] Med Refill Social History Tobacco Use [...] How often do you attend jewish or judaism serv ices? Never 07/09/2022 Do [...] Date Recorded PHQ-2 Score 0 06/12/2023 [facility] of Occupat ional Health - Occupational [...] on file Legal Sex Male 4:51 PM WATER RESOURCE AGENT Gender Identity Male 07/02/2017 9:12 AM WATER RESOURCE AGENT Sexual Orientation Straight 07/02/2017 9: 12 AM WATER RESOURCE AGENT documented as of this encounter Miscellaneous Notes * Telephone Encounter - Rachel Llamas L.PCotyNCoty - 02/06/2024 10:03 AM CDT Controlled substance renewal for Tramadol 50 mg: No nursing concerns Renewal is pended per the controlled substance prescribing plan located in synopsis Date last renewed (start date): 01/09/24 for #240 tablets Last provider visit: 06/12/23 Urine Drug Screen last resulted on: 02/23/2023; Next due: 02/22/[address] needs scheduling Screenings due: PEG to be completed at up coming appointment Next provider visit due: 12/11/23, Appointment is scheduled 02/24/24 Controlled substance agreement last reviewed/signed 06/12/2023 This prescription may be filled on 02/08/24, and next renewal may be on or after 03/09/24 * Telephone Encounter - Lyn Garcia - 02/06/2024 9:56 AM CDT Nurse review: Med Refill Team is unable to forward request to provider. Controlled Substance, CSA Primary Provider: Stefan Salomon M.D. Requested Prescriptions Pending Prescriptions Disp Refills traMADoL (Ultram) 50 mg tablet [Pharmacy Med Name: TRAMADOL HCL 50MG TABS] 240 tablet 0 Sig: TAKE 1 TO 2 TABLETS (50 - 100 MG) BY MOUTH EVERY 6 HOURS NEEDED FOR PAIN. CAUTION: OPIOID -RISK OF OVERDOSE AND ADDICTION documented in this encounter Plan of Treatment Upcoming Encounters Date Type Department Care Team (Latest Contact Info) Description 04/24/2024 8:50 AM WATER RESOURCE AGENT Appointment Department of Laboratory Medicine in [address] [phone] Stefan Salomon M.D. [address] [place] [phone] 04/24/2024 9:30 AM WATER RESOURCE AGENT Anticoagulation Visit Department of Anticoagulation in [place], [place] [address] [place] [phone] Stefan Salomon M.D. [address] [place] [phone] 05/08/2024 10:30 AM WATER RESOURCE AGENT Appointment Department of Radiology, [facility], in [place], [place] [address] [place] [address] Robert Perez M.B.B.S., M.D. [address] [place] [phone] Discharge Disposition: Home or Self Care 05/08/2024 1:15 PM WATER RESOURCE AGENT Comprehensive Visit Department of Vascular Medicine in [place], [place] [address] [place] [address] Shannon Young MPAS, P.A.-C. [address] [place] [phone] documented as of this encounter Visit Diagnoses Diagnosis Chronic Pain Syndrome Degeneration Disc Cervical Polyarthralgia documented in this encounter Additional Health Concerns Assessment Noted Time PHQ-9 Depression Total Score: 1 06/12/19 24 4:14 PM WATER RESOURCE AGENT documented as of this encounter Care Teams All Source Intelligence Technician Relationship Specialty Start Date End Date Stefan Salomon M.D. [address] [place] [phone] PCP - General Family Medicine 07/09/22 Anticoagulation Team 07/09/22 documented as of this encounter
--- OUTSIDE RECORDS SUMMARY | 2024-03-31 08:04 | XMS_ITS | Encounter Summary ---
Author Organization [facility] Address [address] [place] [address] Care Team Providers Care Rigging Man Name Role Phone Stefan Salomon M.D. Primary Care Provider [phone] Reason for Referral * Outpatient (Routine) - Authorized Specialty Diagnoses / Procedures Referred By Contact Referred To Contact Hematology / Anticoagulation Diagnoses Anticoagulant Therapy Mutation Factor V Leiden Heterozygous (HCC) Monitoring For Therapeutic Drug Therapy Thrombosis Deep Vein Personal History Stefan Salomon M.D. [address] [place] [phone] Phone: tel:[phone] fax:[phone] Referral ID Status Reason Start Date Expiration Date Visits Requested Visits Authorized [id number] Authorized Specialty Services Required 02/04/2024 02/03/2026 1 1 Scheduling Instructions Per [facility] warfarin management protocols Encounter Details Date Type Department Care Team (Late st Contact Info) Description 02/04/2024 Orders Only Department of Family Medicine, [facility], in [address] [phone] Stefan Salomon M.D. [address] [place] [phone] Anticoagulant Therapy [Z79.01] (Primary Dx); Mutation [...] How often do you attend catholic or yarsanism serv ices? Never 07/09/2022 Do [...] Answer Date Recorded PHQ-2 Score 0 06/12/2023 [facility] [...] on file Legal Sex Male 4:51 PM CLINICAL LAB CLERK Gender Identity Male 07/02/2017 9:12 AM CLINICAL LAB CLERK Sexual Orientation Straight 07/02/2017 9: 12 AM CLINICAL LAB CLERK documented as of this encounter Plan of Treatment Upcoming Encounters Date Type Department Care Team (Latest Contact Info) Description 04/24/2024 8:50 AM CLINICAL LAB CLERK Appointment Department of Laboratory Medicine in [address] [phone] Stefan Salomon M.D. [address] [place] [phone] 04/24/2024 9:30 AM CLINICAL LAB CLERK Anticoagulation Visit Department of Anticoagulation in [address] [phone] Stefan Salomon M.D. [address] [place] [phone] 05/08/2024 10:30 AM CLINICAL LAB CLERK Appointment Department of Radiology, [facility], in [address] [phone] Robert Perez M.B.B.S., Shar [address] [place] [phone] Discharge Disposition: Home or Self Care 05/08/2024 1:15 PM CLINICAL LAB CLERK Comprehensive Visit Department of Vascular Medicine in [address] [phone] Shannon Young MPAS, P.A.-C. [address] [place] [phone] Scheduled Referrals Name Type Priority Associated Diagnoses Orde r Schedule Anticoagulation monitoring consult (clinic) Outpatient Referral Routine Anticoagulant Therapy [Z79.01] Mutation Factor V Leiden Heterozygous (HCC) Monitoring For Therapeutic Drug Therapy [Z51.81] Thrombosis Deep Vein Personal History Ordered: 02/04/2024 documented as of this encounter Visit Diagnoses Diagnosis Anticoagulant Therapy [Z79.01]- Primary Mutation Factor V Leiden Heterozygous (HCC) Monitoring For Therapeutic Drug Therapy [Z51.81] Thrombosis Deep Vein Personal History documented in this encounter Additional Health Concerns Assessment Noted Time PHQ-9 Depression Total Score: 1 06/12/19 24 4:14 PM CLINICAL LAB CLERK documented as of this encounter Care Teams Rigging Man Relationship Specialty Start Date End Date Stefan Salomon M.D. [address] [place] [phone] PCP - General Family Medicine 07/09/22 Anticoagulation Team 07/09/22 documented as of this encounter
== END 2024-03-31 08:01 | disposition home or self-care (01) ==
LOC: WOUND 08:00
PROVIDERS: PCP Student in an Organized Health Care Education/Training Program; Visit Provider Nurse Practitioner Family
DX: I87.313 Chronic venous hypertension (idiopathic) with ulcer of bilateral lower extremity (principal); I87.2 Venous insufficiency (chronic) (peripheral); I89.0 Lymphedema, not elsewhere classified; L97.818 Non-pressure chronic ulcer of other part of right lower leg with other specified severity; L97.318 Non-pressure chronic ulcer of right ankle with other specified severity; L97.328 Non-pressure chronic ulcer of left ankle with other specified severity
CPT/HCPCS: 15271; 97597; Q4201

== ENCOUNTER 2024-04-14 08:04 | Outpatient (CLI) | payer MEDICARE, BC, SELFPAY ==
--- OUTSIDE RECORDS SUMMARY | 2024-04-14 08:07 | XMS_ITS | Clinical Summary ---
Author Organization [facility] Address [address] [place] [address] Care Team Providers Care Cryptographic Technician Name Role Phone Stefan Salomon M.D. Primary Care Provider [phone] Source Comments Patient records contain information from all sites at [facility]. For routine questions regarding patient records, call [phone] during business hours, M-F 8:00 AM - 5:00 PM Central Time. Record requests for emergency care only can be directed to [phone] at any time.[facility] Allergies Active Allergy Reactions Criticality Noted Date Comments Atorvastatin Myalgia 02/08/2017 Leg Pain/Cramps Fmxspoh-Fdg-Nii Reductase Inhibitors Other (see comments) 09/10/2022 Medications hydrocortisone (HYTONE) 2.5 % cream Apply to rash/itch/irritati on involving the face and skin folds twice daily as needed 30 g 2 06/13/19 22 Active fluocinonide (LIDEX) 0.05 % cream Apply twice daily to areas of rash/itch/irritati on as needed. DO NOT use on face [...] weeks. 40 g 07/27/19 23 Active polyethylene glycol-electrol ytes (GoLYTELY) 236-22.74-6.74 -5.86 gram solution Drink 1st portion of prep at 6 PM the evening before. 2nd portion must be started 3 hours before and finished 2 hours prior to report time 4000 mL 08/02/19 23 Active gabapentin (NEURONTIN) 300 mg capsuleIndicati ons:Insufficien [...] 07/17/19 24 Active triamcinolone (KENALOG) 0.1 % creamIndication s:Pruritus Apply 1 Application topically 2 (two) times a day as needed (Rash). Apply to itchy spots on the back up to twice per day. 240 g 3 07/25/19 24 Active warfarin (JANTOVEN) 5 mg tabletIndicatio ns:Anticoagulan t Therapy,Mutatio n Factor V Leiden Heterozygous (HCC),Monitorin g For Therapeutic Drug Therapy,Thrombo sis Deep Vein Personal History Please take as directed by your Anticoagulation Clinic. 118 tablet 3 09/24/19 24 Active amLODIPine (Norvasc) 10 mg tablet take one tablet by mouth every day 90 tablet 03/02/20 24 Active triamcinolone (Kenalog) 0.1 % cream Apply 1 Application topically 2 (two) times a day as needed (Rash). Apply to legs twice a day until itchy red rash goes away. 240 g 3 03/24/20 24 Active fluorouraciL (Efudex) 5 % cream Apply 1 Application topically 2 (two) times a day. Apply to face and scalp. 40 g 2 03/24/20 24 Active traMADoL (Ultram) 50 mg tabletIndicatio ns:Chronic Pain/Nonacute Pain Take 1-2 tablets (50-100 mg total) by mouth every 6 (six) hours as needed for pain Indications: Chronic Pain/Nonacute Pain. 240 tablet 04/09/20 24 Active traMADoL (Ultram) 50 mg tabletIndicatio ns:Chronic Pain/Nonacute Pain Take 1-2 tablets (50-100 mg total) by mouth every 6 (six) hours as needed for pain Indications: Chronic Pain/Nonacute Pain. 240 tablet 03/09/20 24 024 Discontin ued(Reord er) Active Problems Problem Noted Date Diagnosed Date [...] Generalized 11/18/2011 Overview (07/02/2017): Saw Neurologist at [facility] on [...] Encounters Date Type Department Care Team Description 04/08/2024 Refill Department of Family Medicine, [facility], in [address] [phone] Stefan Salomon M.D. Med Refill 04/07/2024 Orders Only [facility] PCP TH MTT Stefan Salomon M.D. Monitoring For Therapeutic Drug Therapy; Hyperlipidemia 03/24/2024 8:00 AM CDT Office Visit Department of Dermatology in [place], [place] [address] [place] [phone] nAdres Simeon M.D. 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 Anticoagulant Therapy [Z79.01] (Primary Dx); Mutation Factor V Leiden Heterozygous (HCC); Monitoring For Therapeutic Drug Therapy [Z51.81]; Thrombosis Deep Vein Personal History 03/13/2024 7:02 AM CDT - 03/13/2024 11:59 PM CDT Hospital Encounter Department of Laboratory Medicine in [address] [address] Stefan Salomon M.D. Anticoagulant Therapy; Mutation Factor V Leiden Heterozygous (HCC); Monitoring For Therapeutic Drug Therapy; Thrombosis Deep Vein Personal History Discharge Disposition: Home or Self Care 03/04/2024 Refill Department of Family Medicine, [facility], in [address] [address] Stefan Salomon M.D. Med Refill 03/01/2024 Refill Department of Family Medicine, [facility], in [place] [address] [place] [address] Stefan Salomon M.D. Med Refill 02/14/2024 9:30 AM CDT Anticoagulation Visit Department of Anticoagulation in [address] [address] Stefan Salomon M.D. Monitoring For Therapeutic Drug Therapy (Primary Dx); Anticoagulant Therapy; Mutation Factor V Leiden Heterozygous (HCC); Thrombosis Deep Vein Personal History 02/14/2024 7:16 AM CDT - 02/14/2024 11:59 PM CDT Hospital Encounter Department of Laboratory Medicine in [address] [address] Stefan Salomon M.D. Anticoagulant Therapy; Mutation Factor V Leiden Heterozygous (HCC); Monitoring For Therapeutic Drug Therapy; Thrombosis Deep Vein Personal History Discharge Disposition: Home or Self Care 02/04/2024 Orders Only Department of Family Medicine, [facility], in [address] [address] Stefan Salomon M.D. Anticoagulant Therapy [Z79.01] (Primary Dx); Mutation Factor V Leiden Heterozygous (HCC); Monitoring For Therapeutic Drug Therapy [Z51.81]; Thrombosis Deep Vein Personal History 02/03/2024 Refill Department of Family Medicine, [facility], [address] [address] Anuradha Galaviz M.D. Med Refill from Last 3 Months [...] week 07/09/2022 How often do you attend zoroastrianism or protestant serv ices? Never 07/09/2022 Do you belong to any clubs o r organizations such as zoroastrianism groups, unions, fraternal or athletic groups, or [...] Answer Date Recorded PHQ-2 Score 0 06/12/2023 [facility] of Occupat ional Health - Occupational Stress [...] on file Legal Sex Male 4:51 PM SDV PILOT/NAVIGATOR/DDS OPERATOR Gender Identity Male 07/02/2017 9:12 AM SDV PILOT/NAVIGATOR/DDS OPERATOR Sexual Orientation Straight 07/02/2017 9: 12 AM SDV PILOT/NAVIGATOR/DDS OPERATOR Last Filed Vital Signs Vital Sign Reading Time Taken Comments Blood Pressure 148/82 06/12/2023 4:23 PM SDV PILOT/NAVIGATOR/DDS OPERATOR Pulse 63 06/12/2023 4:23 PM SDV PILOT/NAVIGATOR/DDS OPERATOR Temperature 36.6 ??C (97.9 ??F) 06/12/2023 4:23 PM CS T Respiratory Rate 18 06/12/2023 4:23 PM SDV PILOT/NAVIGATOR/DDS OPERATOR Oxygen Saturation 94% 06/12/2023 4:23 PM SDV PILOT/NAVIGATOR/DDS OPERATOR Inhaled Oxygen Concentration - - Weight 95.6 kg (210 lb 12.2 oz) 06/12/2023 4:23 PM SDV PILOT/NAVIGATOR/DDS OPERATOR Height 176.5 cm (5' 9.49) 08/01/2022 9:59 AM CS T Body Mass Index 30.69 08/01/2022 9:59 AM SDV PILOT/NAVIGATOR/DDS OPERATOR Plan of Treatment Upcoming Encounters Date Type Department Care Team (Latest Contact Info) Description 04/24/2024 8:50 AM SDV PILOT/NAVIGATOR/DDS OPERATOR Appointment Department of Laboratory Medicine in [address] [phone] Stefan Salomon M.D. [address] [place] [phone] 04/24/2024 9:30 AM SDV PILOT/NAVIGATOR/DDS OPERATOR Anticoagulation Visit Department of Anticoagulation in [place], [place] [address] [place] [address] Stefan Salomon M.D. [address] [address] 05/08/2024 10:30 AM SDV PILOT/NAVIGATOR/DDS OPERATOR Appointment Department of Radiology, [facility], in [place], [place] [address] [place] [address] Robert Perez M.B.B.S., M.D. [address] [place] [address] Discharge Disposition: Home or Self Care 05/08/2024 1:15 PM SDV PILOT/NAVIGATOR/DDS OPERATOR Comprehensive Visit Department of Vascular Medicine in [place], [place] [address] [place] [address] Shannon Young, MPAS, P.A.-C. [address] [place] [phone] Health Maintenance Due Date Last Done Comments CT Colonography 1950 Cologuard 1950 Zoster Vaccines (1 of 2) 1998 Colonoscopy 12/28/2019 12/27/2014 Colorectal Cancer Surveillance 12/28/2019 Visit: Medicare Annual Wellness 07/10/2023 07/09/2022 Office Visit for Blood Pressure Check / Re-check 09/11/2023 06/12/2023 RSV vaccine - (32-36 weeks) or 60+ years (1 - 1-dose 75+ series) 11/30/2023 COVID-19 Vaccine (2023- season) 2024 04/21/2022, 04/14/2021, 08/28/2020, Additional history exists Influenza Vaccine (#1) 2024 , 04/19/2022, 04/20/2021, Additional history exists Controlled Substance Monitoring 04/09/2024 02/23/2023 Opioid Risk Tool (ORT) 04/09/2024 07/09/2022 PEG assessment for Opioid therapy 04/09/2024 06/12/2023 Creatinine Level (Kidney Function Test) 04/19/2024 04/19/2023, 04/30/2022, 06/08/2021, Additional history exists Lipid (Cholesterol) Screening 04/19/2024 04/19/2023, 03/16/2022, 08/14/2018, Additional history exists Potassium Level 04/19/2024 04/19/2023, 04/04, 06/08/2021, Additional history exists Sodium Level 04/19/2024 04/19/2023, 04/04, 06/08/2021, Additional history exists Controlled Substance Agreement 06/12/2024 06/12/2023, 03/05/2022 Controlled Substance Monitoring (PHQ-9) 06/12/2024 06/12/2023 Generalized Anxiety (DESMOND-7) 06/12/2024 06/12/2023 Visit: Chronic Disease, age 18+ 06/12/2024 06/12/2023 Fasting Glucose for Diabetes Screening 04/19/2026 04/19/2023, 04/30/2022, 06/08/2021, Additional history exists DTaP,Tdap,and Td Vaccines (6 - Td or Tdap) 04/20/2031 04/20/2021, 12/30/2020, 01/12/2008, Additional history exists Abdominal Aortic Aneurysm (AAA) Screen Discontinued 11/09/2014, 01/11/2012, 09/07/2009, Additional history exists Hepatitis C Screening Completed 06/15/2016, 017 Pneumococcal vaccine (65+ years) Completed 07/02/2017, 10/29/2014 Depression Screening (Annual PHQ-2) Completed 06/12/2023 Fall Risk Screen (Annual) Completed 06/12/2023 IPV Vaccines Aged Out No longer eligi ble based on patient's age to complete this topic Medical Devices Implanted Type Area Commercial Finance Analyst Device Identifier Shelf Expiration Date Model / Serial / Lot Mineralized Cancellous Bone 2.0 - Anne [id number] Implanted:Qty: 1 on 08/10/2015 Bone or Tissue Tooth [facility] Description:Device Manufactu rer - [employer]. Body Location - Other. tooth-13. Device Status Text - [id number]. Hardware E.G. Pins/Screws/Rk s Hardware e.g. pins/screws /rods Mouth Abutment Nobrpl Rp 4.3x5 - Anne [id number] Implanted:Qty: 1 on 07/03/2007 Hardware e.g. pins/screws /rods Tooth [employer] Description:Device Manufactu rer - [employer]. Body Location - Tooth 5. Device Status Text - [id number]. Screw Rst Curly Taper Rp 4.3x13.0 - Anne [id number] Implanted:Qty: 1 on 07/03/2007 Hardware e.g. pins/screws /rods Tooth [employer] Description:Device Manufactu rer - [employer]. Body Location - Tooth 5. Device Status Text - [id number]. Screw Nobrpl Curly Tap Supervisor Assembly Room 3.5x11.5 - Anne [id number] Implanted:Qty: 1 on 03/03/2012 Hardware e.g. pins/screws /rods Tooth [employer] Description:Device Manufactu rer - [employer]. Body Location - Tooth 29. Device Status Text - [id number]. Abutment Nobrpl Supervisor Assembly Room 3.5x5 - Anne [id number] Implanted:Qty: 1 on 03/03/2012 Hardware e.g. pins/screws /rods Tooth [employer] Description:Device Manufactu rer - [employer]. Body Location - Tooth 29. Device Status Text - [id number]. Abutment Nobrpl Supervisor Assembly Room 3.5x3 - Anne [id number] Implanted:Qty: 1 on 08/23/2014 Hardware e.g. pins/screws /rods Tooth [employer] Description:Device Manufactu rer - [employer]. Body Location - Other. tooth- 28. Device Status Text - [id number]. Abutment Nobrpl Supervisor Assembly Room 3.5x3 - Anne [id number] Implanted:Qty: 1 on 08/23/2014 Hardware e.g. pins/screws /rods Tooth [employer] Description:Device Manufactu rer - [employer]. Body Location - Other. tooth- 28. Device Status Text - [id number]. Screw Nobrpl Curly Taper Supervisor Assembly Room 3.5x13.0 - Anne [id number] Implanted:Qty: 1 on 08/23/2014 Hardware e.g. pins/screws /rods Tooth [employer] Description:Device Manufactu rer - [employer]. Body Location - Other. tooth- 28. Device Status Text - [id number]. Screw Nobrpl Curly Taper Rp 4.3x10.0 - Anne [id number] Implanted:Qty: 1 on 08/10/2015 Hardware e.g. pins/screws /rods Tooth [employer] Description:Device Manufactu rer - [employer]. Body Location - Other. tooth- 20. Device Status Text - [id number]. Brane Fix Rst Tiunite Rp 4.3 X 13.0 - Anne [id number] Implanted:Qty: 1 on 08/10/2015 Hardware e.g. pins/screws /rods Tooth [employer] Description:Device Manufactu rer - [employer]. Body Location - Other. tooth- 21. Device Status Text - [id number]. Brane Fix Rst Tiunite Rp 4.3 X 13.0 - Anne [id number] Implanted:Qty: 1 on 08/10/2015 Hardware e.g. pins/screws /rods Tooth [employer] Description:Device Manufactu rer - [employer]. Body Location - Other. tooth- 13. Device Status Text - [id number]. Brane Fix Rst Tiunite Rp 4.3 X 13.0 - Anne [id number] Implanted:Qty: 1 on 08/10/2015 Hardware e.g. pins/screws /rods Tooth [employer] Description:Device Manufactu rer - [employer]. Body Location - Other. tooth- 11. Device Status Text - [id number]. Abutment Nobrpl Rp 4.3x3 - Anne [id number] Implanted:Qty: 1 on 02/08/2016 Hardware e.g. pins/screws /rods Tooth [employer] Description:Device Manufactu rer - [employer]. Body Location - Other. tooth- 20. Device Status Text - [id number]. Abutment Nobrpl Rp 5.3x3 - Anne [id number] Implanted:Qty: 1 on 02/08/2016 Hardware e.g. pins/screws /rods Tooth [employer] Description:Device Manufactu rer - [employer]. Body Location - Other. tooth- 13. Device Status Text - [id number]. Abutment Nobrpl Rp 4.3x3 - Anne [id number] Implanted:Qty: 1 on 02/08/2016 Hardware e.g. pins/screws /rods Tooth [employer] Description:Device Manufactu rer - [employer]. Body Location - Other. tooth- 21. Device Status Text - [id number]. Abutment Nobrpl Rp 4.3x3 - Anne [id number] Implanted:Qty: 1 on 02/08/2016 Hardware e.g. pins/screws /rods Tooth [employer] Description:Device Manufactu rer - [employer]. Body Location - Other. tooth- 11. Device Status Text - [id number]. Patch Dura-Guard 4x 4 - Anne [id number] Implanted:Qty: 1 on 08/19/1996 Mesh or Patch [employer] Description:Device Manufactu rer - [employer]. Device Status Text - [id number]. Allograft Bioxclude Chorion 1cm X 2.5cm - Anne [id number] Implanted:Qty: 1 on 01/15/2014 Mesh or Patch Tooth Unknown Description:Device Manufactu rer - Unknown. Body Location - tooth-28. Device Status Text - [id number]. Allograft Bioxclude Chorion 1cm X 2.5cm - Anne [id number] Implanted:Qty: 1 on 01/15/2014 Mesh or Patch Tooth Unknown Description:Device Manufactu rer - Unknown. Body Location - tooth-5. Device Status Text - [id number]. Allograft Bioxclude Chorion 1.5cm X 2cm - Anne [id number] Implanted:Qty: 1 on 08/10/2015 Mesh or Patch Other/Legacy - See Implant Description Unknown Description:Device Manufactu rer - Unknown. Body Location - Other. Left. Device Status Text - [id number]. Procedures Procedure Name Priority Date/Time Associated Diagnosis [...] LIPID PANEL, S Routine 04/19/2023 7:39 AM SDV PILOT/NAVIGATOR/DDS OPERATOR Hyperlipidemia BASIC METABOLIC PANEL, S/P Routine 04/19/2023 7:39 AM SDV PILOT/NAVIGATOR/DDS OPERATOR Hypertension Essential Primary HCV AB SCRN W/REFLEX TO HCV PCR, S Routine 06/15/2016 9:01 AM SDV PILOT/NAVIGATOR/DDS OPERATOR COLONOSCOPY Routine 12/27/2014 US AORTA Routine [...] NON RAD IMAGING PROCE DURES Final Result IIMO NA * INR Reflex, POCT, Blood (03/13/2024 7:09 AM CDT) Only the most recent of2 [...] POCT ORDERABLES - DEVIC E Final Result [facility] [address] [place] [address], [facility] CNFL [facility] in [address] [address] * Lipid Panel (04/19/2023 7:39 AM SDV PILOT/NAVIGATOR/DDS OPERATOR) Triglycerides 113 mg/dL 04/19/2023 11:48 AM SDV PILOT/NAVIGATOR/DDS OPERATOR CNFL Comment: ----REFERENCE VALUE---- Normal: <150 mg/dL Borderline High: 150-199 mg/dL High: 200-499 mg/dL Very High: > or =500 mg/dL Cholesterol, Total 144 mg/dL 2022 11:48 AM SDV PILOT/NAVIGATOR/DDS OPERATOR CNFL Comment: ----REFERENCE VALUE---- Desirable: < 200 mg/dL Borderline High: 200 - 239 mg/dL High: > or = 240 mg/dL Cholesterol, LDL, Calculated 76 mg/dL 04/19/2023 12:10 PM SDV PILOT/NAVIGATOR/DDS OPERATOR CNFL Comment: ----REFERENCE VALUE---- Desirable: <100 mg/dL Above Desirable: 100-129 mg/dL Borderline High: 130-159 mg/dL High: 160-189 mg/dL Very High: >=190 mg/dL ----ADDITIONAL INFORMATION---- LDL cholesterol calculated using the Sosa/NIH equation. Cholesterol, HDL 48 >=40 mg/dL 04/19/20 12:10 PM SDV PILOT/NAVIGATOR/DDS OPERATOR CNFL Cholesterol, Non-HDL, Calculated 96 mg/dL 04/19/2023 12:10 PM SDV PILOT/NAVIGATOR/DDS OPERATOR CNFL Comment: ----REFERENCE VALUE---- Desirable: <130 mg/dL Above Desirable: 130-159 mg/dL Borderline High: 160-189 mg/dL High: 190-219 mg/dL Very High: > or =220 mg/dL Fasting (8 HR or more) No 04/19/2023 7:40 AM SDV PILOT/NAVIGATOR/DDS OPERATOR CNFL Blood (Blood, Venous) 04/19/2023 7:39 AM SDV PILOT/NAVIGATOR/DDS OPERATOR 04/19/2023 7:40 AM SDV PILOT/NAVIGATOR/DDS OPERATOR us Stefan Salomon M.D. LAB BLOOD ADD-ON Final Resu lt [address] [address], [facility] CNFL [facility] [place] [address] * Basic Metabolic Panel (04/19/2023 7:39 AM SDV PILOT/NAVIGATOR/DDS OPERATOR) Pathologist [facility] Potassium, P 4.1 3.6 - 5.2 mmol/L 04/19/2023 11:48 AM SDV PILOT/NAVIGATOR/DDS OPERATOR CNFL Sodium, P 138 135 - 145 mmol/L 04/19/2023 11:48 AM SDV PILOT/NAVIGATOR/DDS OPERATOR CNFL Chloride, P 102 98 - 107 mmol/L 04/19/2023 11:48 AM SDV PILOT/NAVIGATOR/DDS OPERATOR CNFL Bicarbonate, P 23 22 - 29 mmol/L 04/19/2023 11:48 AM SDV PILOT/NAVIGATOR/DDS OPERATOR CNFL Anion Gap, P 13 7 - 15 04/19/2023 11:48 AM SDV PILOT/NAVIGATOR/DDS OPERATOR CNFL BUN (Blood Urea Nitrogen), P 21 8 - 24 mg/dL 04/19/2023 11:48 AM SDV PILOT/NAVIGATOR/DDS OPERATOR CNFL Creatinine 0.87 0.74 - 1.35 mg/dL 04/19/2023 11:48 AM SDV PILOT/NAVIGATOR/DDS OPERATOR CNFL Estimated GFR (eGFR) >90 >=60 mL/min/BSA 04/19/2023 11:48 AM SDV PILOT/NAVIGATOR/DDS OPERATOR CNFL Comment: Estimated GFR calculated using the 2020 CKD_EPI creatinine equation. Calcium, Total, P 9.1 8.8 - 10.2 mg/dL 04/19/2023 11:48 AM SDV PILOT/NAVIGATOR/DDS OPERATOR CNFL Glucose, P 103 70 - 140 mg/dL 04/19/2023 11:48 AM SDV PILOT/NAVIGATOR/DDS OPERATOR CNFL Blood (Blood, Venous) 04/19/2023 7:39 AM SDV PILOT/NAVIGATOR/DDS OPERATOR 04/19/2023 7:40 AM SDV PILOT/NAVIGATOR/DDS OPERATOR us Stefan Salomon M.D. LAB BLOOD ADD-ON Final Resu lt [address] [place] [address], [facility] CNFL [facility] in [place] [address] [place] [address] * HCV Ab w/Reflex to HCV PCR, S (medicare) (06/15/2016 9:01 AM SDV PILOT/NAVIGATOR/DDS OPERATOR) HXHCV Ab [facility] Reactive Negative POWERCHART Comment: Supplemental testing for HCV RNA is ordered to rule out active HCV infection. Bnzrok-re-vydfot ratio is >=1.00 and <8.00. Test Performed by: [place] [address] Registered Radiologic Technologist: Armando Chavez II, M.D., Ph.D. Blood 06/15/2016 9:01 AM SDV PILOT/NAVIGATOR/DDS OPERATOR Abraham Valle M.D. LAB MICROBIOLOGY - BLOOD ORDERAB LES Final Result POWERCHART * Colonoscopy (12/27/2014) EXT Colonoscopy Abnormal - See Scanned Report for Details Normal - See Scanned Report for Details, HIMS - Report Received and Scanned us Historical Provider GI PROCEDURE ORDERABLES Marion l Result * US Aorta (11/09/2014 8:30 AM CDT) Anatomical Region Laterality Modality Abdomen, Pelvis N/A Ultrasound 11/09/2014 8:30 AM CDT Impressions 11/09/2014 9:32 AM CDT Normal abdominal aorta Narrative 11/09/2014 9:32 AM CDT EXAM: US AAA Screening [place] Medicare INDICATION: Welcome to Medicare, tobacco use, [...] Normal abdominal aorta Sulaiman Ordaz Jr., R.D.M.S. [facility] PROCEDU RES Edited Result - Final from Last 3 Months or Most Recently Relevant to Health Maintenance Insurance MEDICARE [facility] Care Teams Cryptographic Technician Relationship Specialty Start Date End Date Stefan Salomon M.D. [id number] [place] [phone] PCP - General Family Medicine 07/09/22 Anticoagulation Team 07/09/22
--- OUTSIDE RECORDS SUMMARY | 2024-04-14 08:07 | XMS_ITS | Referral Summary ---
Author Organization [facility] Address [address] [place] [address] Care Team Providers Care Tube Depatcher Name Role Phone Stefan Salomon M.D. Primary Care Provider [phone] Source Comments Patient records contain information from all sites at [facility]. For routine questions regarding patient records, call [phone] during business hours, M-F 8:00 AM - 5:00 PM Central Time. Record requests for emergency care only can be directed to [phone] at any time.[facility] Encounters Date Type Department Care Team Description 04/08/2024 Refill Department of Family Medicine, [facility], in [address] [phone] Stefan Salomon M.D. Med Refill 04/07/2024 Orders Only [facility] Stefan Salomon M.D. Monitoring For Therapeutic Drug Therapy; Hyperlipidemia 03/24/2024 Ancillary Procedure Department of Dermatology 03/24/2024 8:00 AM CDT Office Visit Department of Dermatology in [place], [place] [address] [place] [address] Andres Simeon M.D. 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 Anticoagulant Therapy [Z79.01] (Primary Dx); Mutation Factor V Leiden Heterozygous (HCC); Monitoring For Therapeutic Drug Therapy [Z51.81]; Thrombosis Deep Vein Personal History 03/13/2024 7:02 AM CDT - 03/13/2024 11:59 PM CDT Hospital Encounter Department of Laboratory Medicine in [address] [address] Stefan Salomon M.D. Anticoagulant Therapy; Mutation Factor V Leiden Heterozygous (HCC); Monitoring For Therapeutic Drug Therapy; Thrombosis Deep Vein Personal History Discharge Disposition: Home or Self Care 03/04/2024 Refill Department of Family Medicine, [facility], in [address] [address] Stefan Salomon M.D. Med Refill 03/01/2024 Refill Department of Family Medicine, [facility], in [address] [address] Stefan Salomon M.D. Med Refill 02/14/2024 9:30 AM CDT Anticoagulation Visit Department of Anticoagulation in [address] [address] Stefan Salomon M.D. Monitoring For Therapeutic Drug Therapy (Primary Dx); Anticoagulant Therapy; Mutation Factor V Leiden Heterozygous (HCC); Thrombosis Deep Vein Personal History 02/14/2024 7:16 AM CDT - 02/14/2024 11:59 PM CDT Hospital Encounter Department of Laboratory Medicine in [address] [address] Stefan Salomon M.D. Anticoagulant Therapy; Mutation Factor V Leiden Heterozygous (HCC); Monitoring For Therapeutic Drug Therapy; Thrombosis Deep Vein Personal History Discharge Disposition: Home or Self Care 02/04/2024 Orders Only Department of Family Medicine, [facility], in [address] [address] Stefan Salomon M.D. Anticoagulant Therapy [Z79.01] (Primary Dx); Mutation Factor V Leiden Heterozygous (HCC); Monitoring For Therapeutic Drug Therapy [Z51.81]; Thrombosis Deep Vein Personal History 02/03/2024 Refill Department of Family Medicine, [facility], in [address] [phone] Anuradha Galaviz M.D. Med Refill from Last 3 Months Allergies Active Allergy Reactions Criticality Noted Date Comments Atorvastatin Myalgia 02/08/2017 Leg Pain/Cramps Wwrirfa-Plj-Fub Reductase Inhibitors Other (see comments) 09/10/2022 Medications [...] Generalized 11/18/2011 Overview (07/02/2017): Saw Neurologist at [facility] on 09/16/2009. MRI lumbar spine [...] How often do you attend anglican or hindu serv ices? Never 07/09/2022 Do [...] on file Legal Sex Male 4:51 PM TRUCK DRIVER INSTRUCTOR Gender Identity Male 07/02/2017 9:12 AM TRUCK DRIVER INSTRUCTOR Sexual Orientation Straight 07/02/2017 9: 12 AM TRUCK DRIVER INSTRUCTOR Last Filed Vital Signs Vital Sign Reading Time Taken Comments Blood Pressure 148/82 06/12/2023 4:23 PM TRUCK DRIVER INSTRUCTOR Pulse 63 06/12/2023 4:23 PM TRUCK DRIVER INSTRUCTOR Temperature 36.6 ??C (97.9 ??F) 06/12/2023 4:23 PM CS T Respiratory Rate 18 06/12/2023 4:23 PM TRUCK DRIVER INSTRUCTOR Oxygen Saturation 94% 06/12/2023 4:23 PM TRUCK DRIVER INSTRUCTOR Inhaled Oxygen Concentration - - Weight 95.6 kg (210 lb 12.2 oz) 06/12/2023 4:23 PM TRUCK DRIVER INSTRUCTOR Height 176.5 cm (5' 9.49) 08/01/2022 9:59 AM CS T Body Mass Index 30.69 08/01/2022 9:59 AM TRUCK DRIVER INSTRUCTOR Plan of Treatment Upcoming Encounters Date Type Department Care Team (Latest Contact Info) Description 04/24/2024 8:50 AM TRUCK DRIVER INSTRUCTOR Appointment Department of Laboratory Medicine in [address] [address] Stefan Salomon M.D. [address] [place] [phone] 04/24/2024 9:30 AM TRUCK DRIVER INSTRUCTOR Anticoagulation Visit Department of Anticoagulation in [address] [address] Stefan Salomon M.D. [address] [place] [phone] 05/08/2024 10:30 AM TRUCK DRIVER INSTRUCTOR Appointment Department of Radiology, [facility], in [place], [place] [address] [place] [address] Robert Perez M.B.BCotyS., M.D. [address] [place] [address] Discharge Disposition: Home or Self Care 05/08/2024 1:15 PM TRUCK DRIVER INSTRUCTOR Comprehensive Visit Department of Vascular Medicine in [place], [place] [address] [place] [phone] Shannon Young MPAS, PCotyACoty-C. [address] [place] [phone] Medical Devices Implanted Type Area Spool Maker Device Identifier Shelf Expiration Date Model / Serial / Lot Mineralized Cancellous Bone 2.0 - Anne [id number] Implanted:Qty: 1 on 08/10/2015 Bone or Tissue Tooth [employer] Description:Device Manufactu [facility] [employer]a. Body Location - Other. tooth-13. Device Status Text - [id number]. Hardware E.G. Pins/Screws/Rk s Hardware e.g. pins/screws /rods Mouth Abutment Nobrpl Rp 4.3x5 - Anne [id number] Implanted:Qty: 1 on 07/03/2007 Hardware e.g. pins/screws /rods Tooth [employer] Description:Device Manufactu rer - [employer]. Body Location - Tooth 5. Device Status Text - [id number]. Screw Rst Curly Taper Rp 4.3x13.0 - Anne [id number] Implanted:Qty: 1 on 07/03/2007 Hardware e.g. pins/screws /rods Tooth [employer] Description:Device Manufactu rer - [employer]. Body Location - Tooth 5. Device Status Text - [id number]. Screw Nobrpl Curly Tap Academic Support Assistant 3.5x11.5 - Anne [id number] Implanted:Qty: 1 on 03/03/2012 Hardware e.g. pins/screws /rods Tooth [employer] Description:Device Manufactu rer - [employer]. Body Location - Tooth 29. Device Status Text - [id number]. Abutment Nobrpl Academic Support Assistant 3.5x5 - Anne [id number] Implanted:Qty: 1 on 03/03/2012 Hardware e.g. pins/screws /rods Tooth [employer] Description:Device Manufactu rer - [employer]. Body Location - Tooth 29. Device Status Text - [id number]. Abutment Nobrpl Academic Support Assistant 3.5x3 - Anne [id number] Implanted:Qty: 1 on 08/23/2014 Hardware e.g. pins/screws /rods Tooth [employer] Description:Device Manufactu rer - [employer]. Body Location - Other. tooth- 28. Device Status Text - [id number]. Abutment Nobrpl Academic Support Assistant 3.5x3 - Anne [id number] Implanted:Qty: 1 on 08/23/2014 Hardware e.g. pins/screws /rods Tooth [employer] Description:Device Manufactu rer - [employer]. Body Location - Other. tooth- 28. Device Status Text - [id number]. Screw Nobrpl Curly Taper Academic Support Assistant 3.5x13.0 - Anne [id number] Implanted:Qty: 1 on 08/23/2014 Hardware e.g. pins/screws /rods Tooth [employer] Description:Device Manufactu rer - [employer]. Body Location - Other. tooth- 28. Device Status Text - [id number]. Screw Nobrpl Curly Taper Rp 4.3x10.0 - Anne [id number] Implanted:Qty: 1 on 08/10/2015 Hardware e.g. pins/screws /rods Tooth [employer] Description:Device Manufactu rer - [employer]. Body Location - Other. tooth- 20. Device Status Text - [id number]. Brane Fix Rst Tiunite Rp 4.3 X 13.0 - Anne [id number] Implanted:Qty: 1 on 08/10/2015 Hardware e.g. pins/screws /rods Tooth [employer] Description:Device Manufactu rer - [employer]. Body Location - Other. tooth- 21. Device Status Text - [id number]. Brane Fix Rst Tiunite Rp 4.3 X 13.0 - Anne [id number] Implanted:Qty: 1 on 08/10/2015 Hardware e.g. pins/screws /rods Tooth [employer] Description:Device Manufactu rer - [employer]. Body Location - Other. tooth- 13. Device Status Text - [id number]. Brane Fix Rst Tiunite Rp 4.3 X 13.0 - Anne [id number] Implanted:Qty: 1 on 08/10/2015 Hardware e.g. pins/screws /rods Tooth [employer] Description:Device Manufactu rer - [employer]. Body Location - Other. tooth- 11. Device Status Text - [id number]. Abutment Nobrpl Rp 4.3x3 - Anne [id number] Implanted:Qty: 1 on 02/08/2016 Hardware e.g. pins/screws /rods Tooth [employer] Description:Device Manufactu rer - [employer]. Body Location - Other. tooth- 20. Device Status Text - [id number]. Abutment Nobrpl Rp 5.3x3 - Anne [id number] Implanted:Qty: 1 on 02/08/2016 Hardware e.g. pins/screws /rods Tooth [employer] Description:Device Manufactu rer - [employer]. Body Location - Other. tooth- 13. Device Status Text - [id number]. Abutment Nobrpl Rp 4.3x3 - Anne [id number] Implanted:Qty: 1 on 02/08/2016 Hardware e.g. pins/screws /rods Tooth [employer] Description:Device Manufactu rer - [employer]. Body Location - Other. tooth- 21. Device Status Text - [id number]. Abutment Nobrpl Rp 4.3x3 - Anne [id number] Implanted:Qty: 1 on 02/08/2016 Hardware e.g. pins/screws /rods Tooth [employer] Description:Device Manufactu rer - [employer]. Body Location - Other. tooth- 11. Device Status Text - [id number]. Patch Dura-Guard 4x 4 - Anne [id number] Implanted:Qty: 1 on 08/19/1996 Mesh or Patch [employer] Description:Device Manufactu rer - [employer]. Device Status Text - [id number]. Allograft Bioxclude Chorion 1cm X 2.5cm - Anne [id number] Implanted:Qty: 1 on 01/15/2014 Mesh or Patch Tooth Unknown Description:Device Manufactu rer - Unknown. Body Location - tooth-28. Device Status Text - [id number]. Allograft Bioxclude Chorion 1cm X 2.5cm - Anne [id number] Implanted:Qty: 1 on 01/15/2014 Mesh or Patch Tooth Unknown Description:Device Manufactu rer - Unknown. Body Location - tooth-5. Device Status Text - [id number]. Allograft Bioxclude Chorion 1.5cm X 2cm - Anne [id number] Implanted:Qty: 1 on 08/10/2015 Mesh or Patch Other/Legacy - See Implant Description Unknown Description:Device Manufactu rer - Unknown. Body Location - Other. Left. Device Status Text - [id number]. Procedures Procedure Name Priority Date/Time Associated Diagnosis [...] LIPID PANEL, S Routine 04/19/2023 7:39 AM TRUCK DRIVER INSTRUCTOR Hyperlipidemia BASIC METABOLIC PANEL, S/P Routine 04/19/2023 7:39 AM TRUCK DRIVER INSTRUCTOR Hypertension Essential Primary HCV AB SCRN W/REFLEX TO HCV PCR, S Routine 06/15/2016 9:01 AM TRUCK DRIVER INSTRUCTOR COLONOSCOPY Routine 12/27/2014 US AORTA Routine 11/09/2014 [...] POCT ORDERABLES - DEVIC E Final Result [facility] [address] [place] [address], [facility] [place] [address] * Lipid Panel (04/19/2023 7:39 AM TRUCK DRIVER INSTRUCTOR) Triglycerides 113 mg/dL 04/19/2023 11:48 AM TRUCK DRIVER INSTRUCTOR CNFL Comment: ----REFERENCE VALUE---- Normal: <150 mg/dL Borderline High: 150-199 mg/dL High: 200-499 mg/dL Very High: > or =500 mg/dL Cholesterol, Total 144 mg/dL 2022 11:48 AM TRUCK DRIVER INSTRUCTOR CNFL Comment: ----REFERENCE VALUE---- Desirable: < 200 mg/dL Borderline High: 200 - 239 mg/dL High: > or = 240 mg/dL Cholesterol, LDL, Calculated 76 mg/dL 04/19/2023 12:10 PM TRUCK DRIVER INSTRUCTOR CNFL Comment: ----REFERENCE VALUE---- Desirable: <100 mg/dL Above Desirable: 100-129 mg/dL Borderline High: 130-159 mg/dL High: 160-189 mg/dL Very High: >=190 mg/dL ----ADDITIONAL INFORMATION---- LDL cholesterol calculated using the Sosa/NIH equation. Cholesterol, HDL 48 >=40 mg/dL 04/19/20 12:10 PM TRUCK DRIVER INSTRUCTOR CNFL Cholesterol, Non-HDL, Calculated 96 mg/dL 04/19/2023 12:10 PM TRUCK DRIVER INSTRUCTOR CNFL Comment: ----REFERENCE VALUE---- Desirable: <130 mg/dL Above Desirable: 130-159 mg/dL Borderline High: 160-189 mg/dL High: 190-219 mg/dL Very High: > or =220 mg/dL Fasting (8 HR or more) No 04/19/2023 7:40 AM TRUCK DRIVER INSTRUCTOR CNFL Blood (Blood, Venous) 04/19/2023 7:39 AM TRUCK DRIVER INSTRUCTOR 04/19/2023 7:40 AM TRUCK DRIVER INSTRUCTOR us Stefan Salomon M.D. LAB BLOOD ADD-ON Final Resu lt Performing Organization Address [facility]/State/[facility] Co de Phone Number [facility] [address] [place] [address], [facility] [place] [address] * Basic Metabolic Panel (04/19/2023 7:39 AM TRUCK DRIVER INSTRUCTOR) Potassium, P 4.1 3.6 - 5.2 mmol/L 04/19/2023 11:48 AM TRUCK DRIVER INSTRUCTOR CNFL Sodium, P 138 135 - 145 mmol/L 04/19/2023 11:48 AM TRUCK DRIVER INSTRUCTOR CNFL Chloride, P 102 98 - 107 mmol/L 04/19/2023 11:48 AM TRUCK DRIVER INSTRUCTOR CNFL Bicarbonate, P 23 22 - 29 mmol/L 04/19/2023 11:48 AM TRUCK DRIVER INSTRUCTOR CNFL Anion Gap, P 13 7 - 15 04/19/2023 11:48 AM TRUCK DRIVER INSTRUCTOR CNFL BUN (Blood Urea Nitrogen), P 21 8 - 24 mg/dL 04/19/2023 11:48 AM TRUCK DRIVER INSTRUCTOR CNFL Creatinine 0.87 0.74 - 1.35 mg/dL 04/19/2023 11:48 AM TRUCK DRIVER INSTRUCTOR CNFL Estimated GFR (eGFR) >90 >=60 mL/min/BSA 04/19/2023 11:48 AM TRUCK DRIVER INSTRUCTOR CNFL Comment: Estimated GFR calculated using the 2020 CKD_EPI creatinine equation. Calcium, Total, P 9.1 8.8 - 10.2 mg/dL 04/19/2023 11:48 AM TRUCK DRIVER INSTRUCTOR CNFL Glucose, P 103 70 - 140 mg/dL 04/19/2023 11:48 AM TRUCK DRIVER INSTRUCTOR CNFL Blood (Blood, Venous) 04/19/2023 7:39 AM TRUCK DRIVER INSTRUCTOR 04/19/2023 7:40 AM TRUCK DRIVER INSTRUCTOR Stefan Salomon M.D. LAB BLOOD ADD-ON Final Resu lt Performing Organization Address City/[facility]/ZIP Co de Phone Number [facility] [address] [place] [address], [facility] [place] [address] * HCV Ab w/Reflex to HCV PCR, S (medicare) (06/15/2016 9:01 AM TRUCK DRIVER INSTRUCTOR) HXHCV Ab [facility] Reactive Negative POWERCHART Comment: Supplemental testing for HCV RNA is ordered to rule out active HCV infection. Jldxud-ru-nbmdvl ratio is >=1.00 and <8.00. Test Performed by: [facility] [place] [address] Bale Tie Machine Operator: Armando Chavez II, M.D., Ph.D. Blood 06/15/2016 9:01 AM TRUCK DRIVER INSTRUCTOR Abraham Valle M.D. LAB MICROBIOLOGY - BLOOD [...] aorta Sulaiman Ordaz Jr., R.D.M.S. [facility] PROCEDU RES Edited Result - Final from Last 3 Months or Most Recently Relevant to Health Maintenance Insurance MEDICARE [facility] Care Teams Tube Depatcher Relationship Specialty Start Date End Date Stefan Salomon M.D. [address] [place] [phone] PCP - General Family Medicine 07/09/22 Anticoagulation Team 07/09/22
--- OUTSIDE RECORDS SUMMARY | 2024-04-14 08:07 | XMS_ITS | Clinical Summary ---
Author Organization [employer] [facility] [employer] Address [place], [place] [address] Care Team Providers Care Credit And Collection Manager Name Role Phone Yue Alonso [facility] Primary Care Provider Allergies Active Allergy Reactions [...] 07/13/2016 Overview (04/28/2020): Overview: Saw Neurologist at [facility] on 09/16/2009. MRI lumbar spine done on [...] Type Department Care Team Description 02/24/2024 Telephone [facility] [address] [place] [address] Bhavik Benson AuD Hearing Aid [...] Comments Blood Pressure 117/67 05/13/2021 2:55 PM DIRECTOR EDUCATIONAL RADIO Pulse 103 05/13/2021 2:55 PM DIRECTOR EDUCATIONAL RADIO Temperature 36.9 ??C (98.4 ??F) 05/13/2021 2:55 PM CS T Respiratory Rate 18 05/13/2021 2:55 PM DIRECTOR EDUCATIONAL RADIO Oxygen Saturation 99% 05/13/2021 2:55 PM DIRECTOR EDUCATIONAL RADIO Inhaled Oxygen Concentration - - Weight 97.8 kg (215 lb 9.8 oz) 07/04/2022 11:35 AM DIRECTOR EDUCATIONAL RADIO Height 175.7 cm (5' 9.17) 07/04/2022 11:[address] Body Mass Index 31.68 07/04/2022 11:35 AM DIRECTOR EDUCATIONAL RADIO Plan of Treatment Health Maintenance Due Date [...] 8:51 AM 12/27/2014 12:46 PM Care Teams Credit And Collection Manager Relationship Specialty Start Date End Date Yue Alonso MBBS [address] [place] [address] TWYLA Alvarado [address] PCP - General Family Practice 06/26/22
--- OUTSIDE RECORDS SUMMARY | 2024-04-14 08:08 | XMS_ITS | Encounter Summary ---
Author Organization [facility] Address [address] [place] [address] Care Team Providers Care Private Advisor Name Role Phone Stefan Salomon M.D. Primary Care Provider [phone] Reason for Visit * Reason Comments Med Refill Encounter Details Date Type Department Care Team (Late st Contact Info) Description 03/04/2024 Refill Department of Family Medicine, [facility], in [address] [phone] Stefan Salomon M.D. [address] [place] [phone] Med Refill Social History Tobacco Use [...] How often do you attend jew or latter-day serv ices? Never 07/09/2022 Do [...] Date Recorded PHQ-2 Score 0 06/12/2023 [facility] - Occupational [...] on file Legal Sex Male 4:51 PM GAS WELDER Gender Identity Male 07/02/2017 9:12 AM GAS WELDER Sexual Orientation Straight 07/02/2017 9: 12 AM GAS WELDER documented as of this encounter Miscellaneous Notes [...] (Latest Contact Info) Description 04/24/2024 8:50 AM GAS WELDER Appointment Department of Laboratory Medicine in [address] [phone] Stefan Salomon M.D. [address] [place] [phone] 04/24/2024 9:30 AM GAS WELDER Anticoagulation Visit Department of Anticoagulation in [address] [phone] Stefan Salomon M.D. [address] [place] [phone] 05/08/2024 10:30 AM GAS WELDER Appointment Department of Radiology, [facility], in [address] [phone] Robert Perez M.B.BMariaelena, MMandie [address] [place] [phone] Discharge Disposition: Home or Self Care 05/08/2024 1:15 PM GAS WELDER Comprehensive Visit Department of Vascular Medicine in [place], [place] [address] [place] [phone] Shannon Young MPAS, P.A.-C. [address] [place] [phone] documented as of this encounter Visit Diagnoses Diagnosis Chronic Pain Syndrome Degeneration Disc Cervical Polyarthralgia documented in this encounter Additional Health Concerns Assessment Noted Time PHQ-9 Depression Total Score: 1 06/12/19 24 4:14 PM GAS WELDER documented as of this encounter Care Teams Private Advisor Relationship Specialty Start Date End Date Stefan Salomon M.D. [phone] [phone] PCP - General Family Medicine 07/09/22 Anticoagulation Team 07/09/22 documented as of this encounter
--- OUTSIDE RECORDS SUMMARY | 2024-04-14 08:08 | XMS_ITS | Encounter Summary ---
Author Organization [facility] Address [address] [place] [address] Care Team Providers Care Pest Control Service Representative Name Role Phone Stefan Salomon M.D. Primary Care Provider [phone] Reason for Referral * Outpatient (Routine) - Authorized Specialty Diagnoses / Procedures Referred By Contac t Referred To Contact Dermatology Diagnoses Stasis Dermatitis Venous Lower Extremity Left Procedures [employer] Robert Perez M.B.B.S., M.D. [address] [place] [address] Phone: tel: fax: [facility] Referral ID Status Reason Start Date Expiration Date V isits Requested Visits Authorized [id number] Authorized 03/24/2024 03/24/2025 1 1 * Outpatient (Routine) - Authorized Specialty Diagnoses / Procedures Referred By Contac t Referred To Contact Vascular Medicine Diagnoses Stasis Dermatitis Venous Lower Extremity Left Robert Perez M.B.B.S., M.D. [address] [place] [address] Phone: tel: fax: [facility] Referral ID Status Reason Start Date Expiration Date V isits Requested Visits Authorized [id number] Authorized 03/24/2024 09/23/2025 1 1 * Outpatient (Routine) - Authorized Specialty Diagnoses / Procedures Referred By Contac t Referred To Contact Diagnoses Stasis Dermatitis Venous Lower Extremity Left Procedures US Lower Extremity Venous Insufficiency Bilateral Robert Perez M.B.B.S., M.D. [address] [place] [phone] Phone: tel: fax: [facility] Referral ID Status Reason Start Date Expiration Date V isits Requested Visits Authorized [id number] Authorized 03/24/2024 03/24/2025 1 1 * Outpatient (Routine) - Authorized Specialty Diagnoses / Procedures Referred By Contac t Referred To Contact Vascular Surgery Diagnoses Stasis Dermatitis Venous Lower Extremity Left Robert Perez M.B.B.S., M.D. [address] [place] [address] Phone: tel: fax: [facility] Referral ID Status Reason Start Date Expiration Date V isits Requested Visits Authorized [id number] Authorized 03/24/2024 09/23/2025 1 1 Reason for Visit * Appointment Request (Routine) - Closed Specialty Diagnoses / Procedures Referred By Contac t Referred To Contact Dermatology Diagnoses Screening Skin Condition Referral ID Status Reason Start Date Expiration Date Visits Re quested Visits Authorized [id number] Closed 03/11/2024 03/11/2025 1 1 Encounter Details Date Type Department Care Team (Late st Contact Info) Description 03/24/2024 8:00 AM CDT Office Visit Department of Dermatology in [place], [place] [address] [place] [phone] Andres Simeon M.D. [address] [place] [phone] Stasis Dermatitis Venous Lower Extremity Left (Primary [...] week 07/09/2022 How often do you attend orthodoxy or gnosticism serv ices? Never 07/09/2022 Do you belong to any clubs o r organizations such as orthodoxy groups, unions, fraternal or athletic groups, or [...] Answer Date Recorded PHQ-2 Score 0 06/12/2023 [facility] of Occupat ional [facility] - Occupational Stress Questionnaire Answer Date Recorded [...] on file Legal Sex Male 4:51 PM CLEANING MATRON Gender Identity Male 07/02/2017 9:12 AM CLEANING MATRON Sexual Orientation Straight 07/02/2017 9: 12 AM CLEANING MATRON documented as of this encounter Progress Notes * Andres Simeon M.D. - 03/24/2024 8:00 AM CDT Correspondence To: Andres Simeon M.D. Referring provider: No ref. provider found Supervising homemaking rehabilitation consultant, Dr. Ginette Zamora, supervised the visit. [...] for Stasis dermatitis. In: Lynne JUAREZ ed. [employer]. [place], [place]: [employer]; 2016. URL: [email or web address]. Accessed October 06, 2021. Follow-up: 1 year Orders Placed This Encounter [employer] [facility] Contact Numbers: [facility] page [[phone]] [facility] page [[phone]] [facility]-ET[facility] page [[phone]] Clinic call [[phone]] [place] Contact Numbers: [facility]/OR page [[phone]] [facility] [place] page [[phone] or [phone]] [facility] page [[phone]] [facility] page [[phone]] [facility] page [[phone]] [facility] page [[phone]] Order Specific Question: Has patient consent ([id number]) been obtained/recorded? Answer: Yes Order Specific Question: Areas/Protocols to be Photographed Answer: legs and leg ulcers Order Specific Question: Region Answer: [facility] [[id number]] Order Specific Question: Image Type Answer: Still Images Order Specific Question: Ordering Provider Name Answer: ANDRES SIMEON [[id number]] Order Specific Question: Ordering Provider Specialty Answer: Dermatology US Lower Extremity Venous Insufficiency Bilateral Standing Status: Future Standing Expiration Date: 06/24/2025 Order Specific Question: Clinical question to be answered Answer: venous insufficiency? Order Specific Question: Region: Answer: [facility] [[id number]] Order Specific Question: Should the communication of this result to the patient???s portal be released immediately? Answer: Release Immediately Vascular Surgery - Venous / varicose vein / sclero consult (clinic) Standing Status: Future Standing Expiration Date: 06/24/2025 Referral Priority: Routine Referral Type: Outpatient Referral Location: [facility] Requested Specialty: Vascular Surgery Number of Visits Requested: 1 Vascular Medicine - Vascular wound care consult (clinic) Standing Status: Future Standing Expiration Date: 06/24/2025 Referral Priority: Routine Referral Type: Outpatient Referral Location: [facility] Number of Visits Requested: 1 triamcinolone (Kenalog) [...] portions of the procedure(s) and immediately available [facility] services the entire duration. See resident/fellow note for details. documented in this encounter Plan of Treatment Upcoming Encounters Date Type Department Care Team (Latest Contact Info) Description 04/24/2024 8:50 AM CLEANING MATRON Appointment Department of Laboratory Medicine in [address] [phone] Stefan Salomon M.D. [address] [place] [phone] 04/24/2024 9:30 AM CLEANING MATRON Anticoagulation Visit Department of Anticoagulation in [place], [place] [address] [place] [phone] Stefan Salomon M.D. [address] [place] [phone] 05/08/2024 10:30 AM CLEANING MATRON Appointment Department of Radiology, [facility], in [place], [place] [address] [place] [phone] Robert Perez M.B.B.S., M.D. [address] [place] [phone] Discharge Disposition: Home or Self Care 05/08/2024 1:15 PM CLEANING MATRON Comprehensive Visit Department of Vascular Medicine in [place], [place] [address] [place] [phone] Shannon Young, ARCADIOS, P.A.-C. [address] [place] [phone] Scheduled Orders Name Type Priority Associated Diagnoses [...] Total Score: 1 06/12/19 24 4:14 PM CLEANING MATRON documented as of this encounter Care Teams Pest Control Service Representative Relationship Specialty Start Date End Date Stefan Salomon M.D. [address] [phone] PCP - General Family Medicine 07/09/22 Anticoagulation Team 07/09/22 documented as of this encounter
--- OUTSIDE RECORDS SUMMARY | 2024-04-14 08:08 | XMS_ITS | Encounter Summary ---
Author Organization [facility] Address [address] [place] [address] Care Team Providers Care Certified Neurodiagnostic Technologist Name Role Phone Stefan Salomon M.D. Primary Care Provider [phone] Reason for Visit * Reason Comments Med Refill Encounter Details Date Type Department Care Team (Late st Contact Info) Description 03/01/2024 Refill Department of Family Medicine, [facility], in [address] [phone] Stefan Salomon M.D. [address] [place] [phone] Med Refill Social History Tobacco Use Types [...] How often do you attend amish or orthodoxy serv ices? Never 07/09/2022 Do [...] on file Legal Sex Male 4:51 PM PLANT TENDER Gender Identity Male 07/02/2017 9:12 AM PLANT TENDER Sexual Orientation Straight 07/02/2017 9: 12 AM PLANT TENDER documented as of this encounter Plan of Treatment Upcoming Encounters Date Type Department Care Team (Latest Contact Info) Description 04/24/2024 8:50 AM PLANT TENDER Appointment Department of Laboratory Medicine in [address] [phone] Stefan Salomon M.D. [address] [place] [phone] 04/24/2024 9:30 AM PLANT TENDER Anticoagulation Visit Department of Anticoagulation in [place], [place] [address] [place] [phone] Stefan Salomon M.D. [address] [place] [phone] 05/08/2024 10:30 AM PLANT TENDER Appointment Department of Radiology, [facility], in [place], [place] [address] [place] [phone] Robert Perez M.B.B.S., Shar [address] [place] [phone] Discharge Disposition: Home or Self Care 05/08/2024 1:15 PM PLANT TENDER Comprehensive Visit Department of Vascular Medicine in [place], [place] [address] [place] [phone] Shannon Young MPAS, P.A.-C. [address] [place] [phone] documented as of this encounter Visit Diagnoses Not on filedocumented in this encounter Additional Health Concerns Assessment Noted Time PHQ-9 Depression Total Score: 1 06/12/19 24 4:14 PM PLANT TENDER documented as of this encounter Care Teams Certified Neurodiagnostic Technologist Relationship Specialty Start Date End Date Stefan Salomon M.D. [address] [place] [phone] PCP - General Family Medicine 07/09/22 Anticoagulation Team 07/09/22 documented as of this encounter
--- OUTSIDE RECORDS SUMMARY | 2024-04-14 08:08 | XMS_ITS ---
Author Organization [facility] Address [address] [place] [address] Care Team Providers Care Healthcare Facility Administrator Name Role Phone Unavailable Unavailable Unavailable Surgery Details Not on file Complications Check Surgery Details section. Procedure Estimated Blood Loss Check Surgery Details section. Procedure Findings Check Surgery Details section. Procedure Specimens Taken Check Surgery Details section.
--- OUTSIDE RECORDS SUMMARY | 2024-04-14 08:08 | XMS_ITS | Encounter Summary ---
Author Organization [facility] Address [address] [place] [address] Care Team Providers Care Surgery Scheduling Coordinator Name Role Phone Stefan Salomon M.D. Primary Care Provider [phone] Encounter Details Date Type Department Care Team [...] How often do you attend lutheran or gnosticism serv ices? Never 07/09/2022 Do [...] on file Legal Sex Male 4:51 PM LADLE FILLER Gender Identity Male 07/02/2017 9:12 AM LADLE FILLER Sexual Orientation Straight 07/02/2017 9: 12 AM LADLE FILLER documented as of this encounter Plan of Treatment Upcoming Encounters Date Type Department Care Team (Latest Contact Info) Description 04/24/2024 8:50 AM LADLE FILLER Appointment Department of Laboratory Medicine in [address] [phone] Stefan Salomon M.D. [address] [place] [phone] 04/24/2024 9:30 AM LADLE FILLER Anticoagulation Visit Department of Anticoagulation in [address] [phone] Stefan Salomon M.D. [address] [place] [phone] 05/08/2024 10:30 AM LADLE FILLER Appointment Department of Radiology, [facility], in [place], [place] [address] [place] [address] Robert Perez M.B.B.S., M.D. [address] [place] [phone] Discharge Disposition: Home or Self Care 05/08/2024 1:15 PM LADLE FILLER Comprehensive Visit Department of Vascular Medicine in [place], [place] [address] [place] [address] Shannon Young MPAS, P.ACoty-C. [address] [place] [phone] documented as of this encounter Procedures Procedure [...] Total Score: 1 06/12/19 24 4:14 PM LADLE FILLER documented as of this encounter Care Teams Surgery Scheduling Coordinator Relationship Specialty Start Date End Date Stefan Salomon M.D. MARIANOI: [phone] [place] [phone] PCP - General Family Medicine 07/09/22 Anticoagulation Team 07/09/22 documented as of this encounter
--- OUTSIDE RECORDS SUMMARY | 2024-04-14 08:08 | XMS_ITS | Encounter Summary ---
Author Organization [facility] Address [address] [place] [address] Care Team Providers Care Clinical Systems Analyst Name Role Phone Stefan Salomon M.D. Primary Care Provider [phone] Reason for Visit * Outpatient (Routine) - Authorized Specialty Diagnoses / Procedures Referred By Contac t Referred To Contact Anticoagulation Diagnoses Anticoagulant Therapy Mutation Factor V Leiden Heterozygous (HCC) Monitoring For Therapeutic Drug Therapy Thrombosis Deep Vein Personal History Stefan Salomon M.D. [address] [phone] Phone: tel: fax: [facility] Referral ID Status Reason Start Date Expiration Date V isits Requested Visits Authorized [id number] Authorized 02/01/2023 01/31/2026 300 300 Encounter Details Date Type Department Care Team (Latest Contact Info) Description 02/14/2024 9:30 AM CDT Anticoagulation Visit Department of Anticoagulation in [place], [place] [address] [place] [address] Stefan Salomon M.D. [address] [phone] Monitoring For Therapeutic Drug Therapy [...] How often do you attend yarsani or tenriism serv ices? Never 07/09/2022 Do [...] Answer Date Recorded PHQ-2 Score 0 06/12/2023 [facility] of Occupat ional Health - Occupational Stress [...] on file Legal Sex Male 4:51 PM AIRCRAFT MAINTENANCE MANAGER Gender Identity Male 07/02/2017 9:12 AM AIRCRAFT MAINTENANCE MANAGER Sexual Orientation Straight 07/02/2017 9: 12 AM AIRCRAFT MAINTENANCE MANAGER documented as of this encounter Patient [...] please call Primary Care Anticoagulation Program at [phone] from 7:30 am to 4:30 pm. Saturday-Saturday [...] if you start any herbal or other kkka-aqk-wcaljsv product (check with your doctor, a nurse, or pharmacist). If you change your diet significantly. If you decide to stop or start using tobacco or alcohol. If you notice unusual bruising or bleeding. If you notice dark, tarry, or bright red stools or blood in your urine. If you have a painful and swollen calf. documented in this encounter Progress Notes * Theresa Storey RKimberly. - 02/14/2024 9:30 AM [...] (Latest Contact Info) Description 04/24/2024 8:50 AM AIRCRAFT MAINTENANCE MANAGER Appointment Department of Laboratory Medicine in [address] [phone] Stefan Salomon M.D. [address] [place] [phone] 04/24/2024 9:30 AM AIRCRAFT MAINTENANCE MANAGER Anticoagulation Visit Department of Anticoagulation in [place], [place] [address] [place] [address] Stefan Salomon M.D. [address] [phone] 05/08/2024 10:30 AM AIRCRAFT MAINTENANCE MANAGER Appointment Department of Radiology, [facility], in [place], [place] [address] [place] [phone] Robert Perez M.B.B.S., M.D. [address] [place] [phone] Discharge Disposition: Home or Self Care 05/08/2024 1:15 PM AIRCRAFT MAINTENANCE MANAGER Comprehensive Visit Department of Vascular Medicine in [place], [place] [address] [place] [phone] Shannon Young MPAS, P.A.-C. [address] [place] [phone] documented as of this encounter Results * [...] POCT ORDERABLES - DEVIC E Final Result [facility] [address] [place] [address], [facility] CN[facility] in [address] [address] documented in this encounter Visit Diagnoses Diagnosis Monitoring For Therapeutic Drug Therapy- Primary Anticoagulant Therapy Mutation Factor V Leiden Heterozygous (HCC) Thrombosis Deep Vein Personal History documented in this encounter Additional Health Concerns Assessment Noted Time PHQ-9 Depression Total Score: 1 06/12/19 24 4:14 PM AIRCRAFT MAINTENANCE MANAGER documented as of this encounter Care Teams Clinical Systems Analyst Relationship Specialty Start Date End Date Stefan Salomon M.D. [address] [place] [phone] PCP - General Family Medicine 07/09/22 Anticoagulation Team 07/09/22 documented as of this encounter
--- OUTSIDE RECORDS SUMMARY | 2024-04-14 08:08 | XMS_ITS | Encounter Summary ---
Author Organization [facility] Address [address] [place] [address] Care Team Providers Care Crop And Soil Technician Name Role Phone Stefan Salomon M.D. Primary Care Provider [phone] Encounter Details Date Type Department Care Team (Latest Contact Info) Description 03/13/2024 7:02 AM CDT - 03/13/2024 11:59 PM CDT Hospital Encounter Department of Laboratory Medicine in [address] [phone] Stefan Salomon M.D. [address] [place] [phone] Anticoagulant Therapy; Mutation Factor V Leiden Heterozygous [...] How often do you attend gnosticist or holiness serv ices? Never 07/09/2022 Do [...] on file Legal Sex Male 4:51 PM SENIOR SALES REPRESENTATIVE Gender Identity Male 07/02/2017 9:12 AM SENIOR SALES REPRESENTATIVE Sexual Orientation Straight 07/02/2017 9: 12 AM SENIOR SALES REPRESENTATIVE documented as of this encounter Medications at [...] your Anticoagulation Clinic. 118 tablet 3 4 traMADoL (Ultram) 50 mg tabletIndications :Chronic Pain/Nonacute Pain Take 1-2 tablets (50-100 mg total) by mouth every 6 (six) hours as needed for pain Indications: Chronic Pain/Nonacute Pain. 240 tablet 4 04/09/20 24 documented as of this encounter Plan of Treatment Upcoming Encounters Date Type Department Care Team (Latest Contact Info) Description 04/24/2024 8:50 AM SENIOR SALES REPRESENTATIVE Appointment Department of Laboratory Medicine in [address] [phone] Stefan Salomon M.D. [address] [place] [phone] 04/24/2024 9:30 AM SENIOR SALES REPRESENTATIVE Anticoagulation Visit Department of Anticoagulation in [address] [phone] Stfean Salomon M.D. [address] [place] [phone] 05/08/2024 10:30 AM SENIOR SALES REPRESENTATIVE Appointment Department of Radiology, [facility], in [place], [place] [address] [place] [phone] Robert Perez M.B.B.S., M.D. [address] [place] [phone] Discharge Disposition: Home or Self Care 05/08/2024 1:15 PM SENIOR SALES REPRESENTATIVE Comprehensive Visit Department of Vascular Medicine in [place], [place] [address] [place] [phone] Shannon Young MPAS, P.A.-C. [address] [place] [phone] documented as of this encounter Procedures Procedure [...] POCT ORDERABLES - DEVIC E Final Result [facility] [address] [place] [address], [facility] in [address] [address] documented in this encounter Visit Diagnoses Diagnosis Anticoagulant Therapy Mutation Factor V Leiden Heterozygous (HCC) Monitoring For Therapeutic Drug Therapy Thrombosis Deep Vein Personal History documented in this encounter Additional Health Concerns Assessment Noted Time PHQ-9 Depression Total Score: 1 06/12/19 24 4:14 PM SENIOR SALES REPRESENTATIVE documented as of this encounter Care Teams Crop And Soil Technician Relationship Specialty Start Date End Date Stefan Salomon M.D. [address] [place] [phone] PCP - General Family Medicine 07/09/22 Anticoagulation Team 07/09/22 documented as of this encounter
--- OUTSIDE RECORDS SUMMARY | 2024-04-14 08:08 | XMS_ITS | Encounter Summary ---
Author Organization [facility] Address [address] [place] [address] Care Team Providers Care Frame Table Operator Helper Name Role Phone Stefan Salomon M.D. Primary Care Provider [phone] Reason for Visit * Reason Onset Date Comments Med Refill 04/08/2024 Encounter Details Date Type Department Care Team (Late st Contact Info) Description 04/08/2024 Refill Department of Family Medicine, [facility], in [address] [phone] Stefan Salomon M.D. [address] [place] [phone] Med Refill Social History Tobacco Use [...] How often do you attend zoroastrian or mandaen serv ices? Never 07/09/2022 Do [...] Answer Date Recorded PHQ-2 Score 0 06/12/2023 [facility] of Occupat ional Health - [...] on file Legal Sex Male 4:51 PM NUCLEAR WASTE PROCESS OPERATOR Gender Identity Male 07/02/2017 9:12 AM NUCLEAR WASTE PROCESS OPERATOR Sexual Orientation Straight 07/02/2017 9: 12 AM NUCLEAR WASTE PROCESS OPERATOR documented as of this encounter Miscellaneous Notes * Telephone Encounter - Claritza Lopez L.PCotyNCoty - 04/09/2024 10:52 AM NUCLEAR WASTE PROCESS OPERATOR Controlled substance renewal for Tramadol 50mg: No nursing concerns Renewal is pended per the controlled substance prescribing plan located in Synopsis Date last renewed (start date): 03/09/2024 Last provider visit: 06/12/2023 Urine Drug Screen last resulted on: 02/23/2023; Next due: OVERDUE active order Screenings due: PEG nursing will send at wrap up Next provider visit due: overdue, active order Controlled substance agreement last reviewed/signed 06/12/2023 This prescription may be filled on 04/09/2024, and next renewal may be on or after 05/09/2024 EAR WASTE PROCESS OPERATOR * Telephone Encounter - Caity Gavin - 04/08/2024 2:21 PM CST Images from the original note were not included. Needs Review: Med Refill Team is unable to forward request to provider. Controlled Substance, CSA Primary Provider: Stefan Salomon M.D. EAR WASTE PROCESS OPERATOR documented in this encounter Plan of Treatment Upcoming Encounters Date Type Department Care Team (Latest Contact Info) Description 04/24/2024 8:50 AM NUCLEAR WASTE PROCESS OPERATOR Appointment Department of Laboratory Medicine in [address] [phone] Stefan Salomon M.D. [address] [place] [phone] 04/24/2024 9:30 AM NUCLEAR WASTE PROCESS OPERATOR Anticoagulation Visit Department of Anticoagulation in [address] [phone] Stefan Salomon M.D. [address] [place] [phone] 05/08/2024 10:30 AM NUCLEAR WASTE PROCESS OPERATOR Appointment Department of Radiology, [facility], in [place], [place] [address] [place] [phone] Robert Perez M.B.B.S., Shar [address] [place] [phone] Discharge Disposition: Home or Self Care 05/08/2024 1:15 PM NUCLEAR WASTE PROCESS OPERATOR Comprehensive Visit Department of Vascular Medicine in [place], [place] [address] [place] [address] Shannon Young MPAS, P.A.-C. [address] [place] [phone] documented as of this encounter Visit Diagnoses Diagnosis Chronic Pain Syndrome Degeneration Disc Cervical Polyarthralgia documented in this encounter Additional Health Concerns Assessment Noted Time PHQ-9 Depression Total Score: 1 06/12/19 24 4:14 PM NUCLEAR WASTE PROCESS OPERATOR documented as of this encounter Care Teams Frame Table Operator Helper Relationship Specialty Start Date End Date Stefan Salomon M.D. [address] [place] [phone] PCP - General Family Medicine 07/09/22 Anticoagulation Team 07/09/22 documented as of this encounter
--- OUTSIDE RECORDS SUMMARY | 2024-04-14 08:08 | XMS_ITS | Encounter Summary ---
Author Organization [facility] Address [address] [place] [address] Care Team Providers Care Pipelayer Name Role Phone Stefan Salomon M.D. Primary Care Provider [phone] Encounter Details Date Type Department Care Team (Late st Contact Info) Description 04/07/2024 Orders Only [facility] MNT Stefan Salomon M.D. [address] [place] [phone] Monitoring For Therapeutic Drug Therapy; Hyperlipidemia Social History Tobacco Use Types Packs/Day Years [...] How often do you attend latter-day or congregation serv ices? Never 07/09/2022 Do [...] Score 0 06/12/2023 [facility] [...] on file Legal Sex Male 4:51 PM AMMUNITION COMPONENTS INSPECTOR Gender Identity Male 07/02/2017 9:12 AM AMMUNITION COMPONENTS INSPECTOR Sexual Orientation Straight 07/02/2017 9: 12 AM AMMUNITION COMPONENTS INSPECTOR documented as of this encounter Plan of Treatment Upcoming Encounters Date Type Department Care Team (Latest Contact Info) Description 04/24/2024 8:50 AM AMMUNITION COMPONENTS INSPECTOR Appointment Department of Laboratory Medicine in [address] [phone] Stefan Salomon M.D. [address] [place] [phone] 04/24/2024 9:30 AM AMMUNITION COMPONENTS INSPECTOR Anticoagulation Visit Department of Anticoagulation in [place], [place] [address] [place] [phone] Stefan Salomon M.D. [address] [place] [phone] 05/08/2024 10:30 AM AMMUNITION COMPONENTS INSPECTOR Appointment Department of Radiology, [facility], in [place], [place] [address] [place] [phone] Robert Perez M.B.B.S., M.D. [address] [place] [phone] Discharge Disposition: Home or Self Care 05/08/2024 1:15 PM AMMUNITION COMPONENTS INSPECTOR Comprehensive Visit Department of Vascular Medicine in [place], [place] [address] [place] [phone] Shannon Young MPAS, P.A.-C. [address] [place] [phone] Scheduled Orders Name Type Priority Associated Diagnoses Orde r Schedule Basic Metabolic Panel Lab Routine Monitoring For Therapeutic Drug Therapy Expected: 04/21/2024, Expires: 10/04/2024 Lipid Panel Lab Routine Hyperlipidemia Expected: 04/21/2024, Expires: 10/04/2024 documented as of this encounter Visit Diagnoses Diagnosis Monitoring For Therapeutic Drug Therapy Hyperlipidemia documented in this encounter Additional Health Concerns Assessment Noted Time PHQ-9 Depression Total Score: 1 06/12/19 24 4:14 PM AMMUNITION COMPONENTS INSPECTOR documented as of this encounter Care Teams Pipelayer Relationship Specialty Start Date End Date Stefan Salomon M.D. [address] [place] [phone] PCP - General Family Medicine 07/09/22 Anticoagulation Team 07/09/22 documented as of this encounter
--- OUTSIDE RECORDS SUMMARY | 2024-04-14 08:08 | XMS_ITS | Encounter Summary ---
Author Organization [facility] Address [address] [place] [address] Care Team Providers Care Audit Senior Associate Name Role Phone Stefan Salomon M.D. Primary Care Provider [phone] Reason for Visit * Outpatient (Routine) - Authorized Specialty Diagnoses / Procedures Referred By Contdayana t Referred To Contact Anticoagulation Diagnoses Anticoagulant Therapy Mutation Factor V Leiden Heterozygous (HCC) Monitoring For Therapeutic Drug Therapy Thrombosis Deep Vein Personal History Stefan Salomon M.D. [address] [phone] Phone: tel: fax: [facility] Referral ID Status Reason Start Date Expiration Date V isits Requested Visits Authorized [id number] Authorized 02/01/2023 01/31/2026 300 300 Encounter Details Date Type Department Care Team (Latest Contact Info) Description 03/16/2024 8:00 AM CDT Anticoagulation Visit Department of Anticoagulation in [place], [place] [address] [place] [phone] Stefan Salomon M.D. [address] [phone] Anticoagulant Therapy [Z79.01] (Primary Dx); [...] How often do you attend gnosticism or jainism serv ices? Never 07/09/2022 Do [...] on file Legal Sex Male 4:51 PM LABORER TANBARK Gender Identity Male 07/02/2017 9:12 AM LABORER TANBARK Sexual Orientation Straight 07/02/2017 9: 12 AM LABORER TANBARK documented as of this encounter Patient Instructions [...] please call Primary Care Anticoagulation Program at [phone] from 7:30 am to 4:30 pm. Saturday-Saturday [...] if you start any herbal or other [id number] product (check with your doctor, a nurse, [...] (Latest Contact Info) Description 04/24/2024 8:50 AM LABORER TANBARK Appointment Department of Laboratory Medicine in [address] [phone] Stefan Salomon M.D. [address] [place] [phone] 04/24/2024 9:30 AM LABORER TANBARK Anticoagulation Visit Department of Anticoagulation in [address] [phone] Stefan Salomon M.D. [address] [place] [phone] 05/08/2024 10:30 AM LABORER TANBARK Appointment Department of Radiology, [facility], in [place], [place] [address] [place] [phone] Robert Perez M.B.B.S., M.D. [address] [place] [phone] Discharge Disposition: Home or Self Care 05/08/2024 1:15 PM LABORER TANBARK Comprehensive Visit Department of Vascular Medicine in [place], [place] [address] [place] [phone] Shannon Young MPAS, P.A.-C. [address] [place] [phone] Scheduled Orders Name Type Priority Associated Diagnoses [...] Total Score: 1 06/12/19 24 4:14 PM LABORER TANBARK documented as of this encounter Care Teams Audit Senior Associate Relationship Specialty Start Date End Date Stefan Salomon M.D. [address] [place] [phone] PCP - General Family Medicine 07/09/22 Anticoagulation Team 07/09/22 documented as of this encounter
--- OUTSIDE RECORDS SUMMARY | 2024-04-14 08:09 | XMS_ITS | Encounter Summary ---
Author Organization [facility] Address [address] [place] [address] Care Team Providers Care Ceramic Designer Name Role Phone Stefan Salomon M.D. Primary Care Provider [phone] Encounter Details Date Type Department Care Team (Latest Contact Info) Description 02/14/2024 7:16 AM CDT - 02/14/2024 11:59 PM CDT Hospital Encounter Department of Laboratory Medicine in [address] [phone] Stefan Salomon M.D. [address] [place] [phone] Anticoagulant Therapy; Mutation Factor V Leiden Heterozygous [...] How often do you attend gnosticist or mandaeism serv ices? Never 07/09/2022 Do [...] on file Legal Sex Male 4:51 PM CAUSTIC PURIFICATION OPERATOR Gender Identity Male 07/02/2017 9:12 AM CAUSTIC PURIFICATION OPERATOR Sexual Orientation Straight 07/02/2017 9: 12 AM CAUSTIC PURIFICATION OPERATOR documented as of this encounter Medications [...] (Latest Contact Info) Description 04/24/2024 8:50 AM CAUSTIC PURIFICATION OPERATOR Appointment Department of Laboratory Medicine in [address] [phone] Stefan Salomon M.D. [address] [place] [phone] 04/24/2024 9:30 AM CAUSTIC PURIFICATION OPERATOR Anticoagulation Visit Department of Anticoagulation in [place], [place] [address] [place] [phone] Stefan Salomon M.D. [address] [place] [phone] 05/08/2024 10:30 AM CAUSTIC PURIFICATION OPERATOR Appointment Department of Radiology, [facility], in [place], [place] [address] [place] [phone] Robert Perez M.B.B.S., M.D. [address] [place] [phone] Discharge Disposition: Home or Self Care 05/08/2024 1:15 PM CAUSTIC PURIFICATION OPERATOR Comprehensive Visit Department of Vascular Medicine in [place], [place] [address] [place] [phone] Shannon Young, ARCADIOS, P.A.-C. [address] [place] [phone] documented as of this encounter Procedures Procedure Name Priority Date/Time Associated Diagnosis Comments INR REFLEX, POCT, B Routine 02/14/2024 7:21 AM CDT Anticoagulant Therapy Mutation Factor V Leiden Heterozygous (HCC) Monitoring For Therapeutic Drug Therapy Thrombosis Deep Vein Personal History documented in this encounter Results * INR Reflex, POCT, Blood (02/14/2024 7:21 AM CDT) [facility] INR Reflex, POCT, B 3.1 02/14/2024 7:21 AM CDT CNFL Comment: ----ADDITIONAL INFORMATION---- Standard intensity warfarin therapeutic range: 2.0 to 3.0 ?? High intensity warfarin therapeutic range: 2.5 to 3.5 Blood (Blood, Capillary) 02/14/2024 7:21 AM CDT 02/14/2024 7:21 AM CDT Stefan Salomon M.D. LAB POCT ORDERABLES - DEVIC E Final Result Performing Organization Address City/State/[facility] Co de Phone Number [facility] [address] [place] [phone], [facility] CNFL [facility] in [address] [phone] documented in this encounter Visit Diagnoses Diagnosis Anticoagulant Therapy Mutation Factor V Leiden Heterozygous (HCC) Monitoring For Therapeutic Drug Therapy Thrombosis Deep Vein Personal History documented in this encounter Additional Health Concerns Assessment Noted Time PHQ-9 Depression Total Score: 1 06/12/19 24 4:14 PM CAUSTIC PURIFICATION OPERATOR documented as of this encounter Care Teams Ceramic Designer Relationship Specialty Start Date End Date Stefan Salomon M.D. [address] [place] [phone] PCP - General Family Medicine 07/09/22 Anticoagulation Team 07/09/22 documented as of this encounter
--- OUTSIDE RECORDS SUMMARY | 2024-04-14 08:09 | XMS_ITS | Encounter Summary ---
Author Organization [facility] Address [address] [place] [address] Care Team Providers Care Meat Sales And Storage Manager Name Role Phone Stefan Salomon M.D. Primary Care Provider [phone] Reason for Referral * Outpatient (Routine) - Authorized Specialty Diagnoses / Procedures Referred By Contact Referred To Contact Hematology / Anticoagulation Diagnoses Anticoagulant Therapy Mutation Factor V Leiden Heterozygous (HCC) Monitoring For Therapeutic Drug Therapy Thrombosis Deep Vein Personal History Stefan Salomon M.D. [address] [place] [phone] Phone: tel:[phone] fax:[phone] Referral ID Status Reason Start Date Expiration Date Visits Requested Visits Authorized [id number] Authorized Specialty Services Required 02/04/2024 02/03/2026 1 1 Scheduling Instructions Per [facility] warfarin management protocols Encounter Details Date Type Department Care Team (Late st Contact Info) Description 02/04/2024 Orders Only Department of Family Medicine, [facility], in [address] [phone] Stefan Salomon M.D. [address] [place] [phone] Anticoagulant Therapy [Z79.01] (Primary Dx); Mutation [...] How often do you attend anglican or faith serv ices? Never 07/09/2022 Do [...] on file Legal Sex Male 4:51 PM MACHINE BOOKKEEPER Gender Identity Male 07/02/2017 9:12 AM MACHINE BOOKKEEPER Sexual Orientation Straight 07/02/2017 9: 12 AM MACHINE BOOKKEEPER documented as of this encounter Plan of Treatment Upcoming Encounters Date Type Department Care Team (Latest Contact Info) Description 04/24/2024 8:50 AM MACHINE BOOKKEEPER Appointment Department of Laboratory Medicine in [address] [phone] Stefan Salomon M.D. [address] [place] [phone] 04/24/2024 9:30 AM MACHINE BOOKKEEPER Anticoagulation Visit Department of Anticoagulation in [address] [phone] Stefan Salomon M.D. [address] [place] [phone] 05/08/2024 10:30 AM MACHINE BOOKKEEPER Appointment Department of Radiology, [facility], in [address] [phone] Robert Perez M.B.B.S., Shar [address] [place] [phone] Discharge Disposition: Home or Self Care 05/08/2024 1:15 PM MACHINE BOOKKEEPER Comprehensive Visit Department of Vascular Medicine in [address] [phone] Shannon Young MPAS, P.A.-C. [address] [place] [phone] Scheduled Referrals Name Type Priority Associated Diagnoses [...] Total Score: 1 06/12/19 24 4:14 PM MACHINE BOOKKEEPER documented as of this encounter Care Teams Meat Sales And Storage Manager Relationship Specialty Start Date End Date Stefan Salomon M.D. [address] [place] [phone] PCP - General Family Medicine 07/09/22 Anticoagulation Team 07/09/22 documented as of this encounter
--- OUTSIDE RECORDS SUMMARY | 2024-04-14 08:09 | XMS_ITS | Encounter Summary ---
Author Organization [facility] Address [address] [place] [address] Care Team Providers Care Management And Budget Analyst Name Role Phone Stefan Salomon M.D. Primary Care Provider [phone] Reason for Visit * Reason Comments Med Refill Encounter Details Date Type Department Care Team (Late st Contact Info) Description 02/03/2024 Refill Department of Family Medicine, [facility], in [address] [phone] Anuradha Galaviz M.D. [address] [place] [phone] Med Refill Social History Tobacco Use [...] How often do you attend protestant or evangelical serv ices? Never 07/09/2022 Do [...] Score 0 06/12/2023 [facility] [...] on file Legal Sex Male 4:51 PM VOTING MACHINE MECHANIC Gender Identity Male 07/02/2017 9:12 AM VOTING MACHINE MECHANIC Sexual Orientation Straight 07/02/2017 9: 12 AM VOTING MACHINE MECHANIC documented as of this encounter Miscellaneous Notes [...] (Latest Contact Info) Description 04/24/2024 8:50 AM VOTING MACHINE MECHANIC Appointment Department of Laboratory Medicine in [address] [phone] Stefan Salomon M.D. [address] [place] [phone] 04/24/2024 9:30 AM VOTING MACHINE MECHANIC Anticoagulation Visit Department of Anticoagulation in [place], [place] [address] [place] [phone] Stefan Salomon M.D. [address] [place] [phone] 05/08/2024 10:30 AM VOTING MACHINE MECHANIC Appointment Department of Radiology, [facility], in [place], [place] [address] [place] [phone] Robert Perez M.B.B.S., M.D. [address] [place] [phone] Discharge Disposition: Home or Self Care 05/08/2024 1:15 PM VOTING MACHINE MECHANIC Comprehensive Visit Department of Vascular Medicine in [place], [place] [address] [place] [phone] Shannon Young MPAS, P.A.-C. [address] [place] [phone] documented as of this encounter Visit Diagnoses Diagnosis Chronic Pain Syndrome Degeneration Disc Cervical Polyarthralgia documented in this encounter Additional Health Concerns Assessment Noted Time PHQ-9 Depression Total Score: 1 06/12/19 24 4:14 PM VOTING MACHINE MECHANIC documented as of this encounter Care Teams Management And Budget Analyst Relationship Specialty Start Date End Date Stefan Salomon M.D. [address] [place] [phone] PCP - General Family Medicine 07/09/22 Anticoagulation Team 07/09/22 documented as of this encounter
== END 2024-04-14 08:05 | disposition home or self-care (01) ==
LOC: WOUND 08:05
PROVIDERS: PCP Student in an Organized Health Care Education/Training Program; Visit Provider Family Medicine
DX: I87.313 Chronic venous hypertension (idiopathic) with ulcer of bilateral lower extremity (principal); I87.2 Venous insufficiency (chronic) (peripheral); I89.0 Lymphedema, not elsewhere classified; L97.312 Non-pressure chronic ulcer of right ankle with fat layer exposed; L97.812 Non-pressure chronic ulcer of other part of right lower leg with fat layer exposed; L97.322 Non-pressure chronic ulcer of left ankle with fat layer exposed
CPT/HCPCS: 11042

== ENCOUNTER 2024-04-17 06:17 | Emergency (ER) | payer MEDICARE, BC, SELFPAY ==
[2024-04-17 06:21] VITALS: BP 152/84; PULSE 86; RESP 16; TEMP 36.6; O2SAT 98
[2024-04-17] MEDS: OXYMETAZOLINE (AFRIN) SOAK 1 EACH TOPICAL (06:34)
[2024-04-17 06:54] LABS: Basophils Percent Auto 1.1 % (0.0-3.0); Eosinophils Percent Auto 7.9 % (0.0-7.0); Hematocrit 42.2 % (37.0-53.0); Hemoglobin* 13.4 gm/dL (13.5-17.5); Lymphocytes Percent Auto 23.9 % (20-44); Mean Corpuscular HGB Conc 32 gm/dL (32-36); Mean Corpuscular Hemoglobin 31 pg (26-34); Mean Corpuscular Volume 96 fL (80-100); Monocytes Percent Auto 11.3 % (0.0-11.0); Neutrophils Percent Auto 55.8 % (42.0-72.0); Platelet Count* 230 K/uL (140-440); RDW Coefficient of Variation % 13.2 % (11.5-15.5); White Blood Count* 4.44 K/uL (4.50-11.00)
[2024-04-17 07:06] LABS: Slide Review Reflex No
[2024-04-17 07:10] LABS: INR 1.82 (0.91-1.10); Prothrombin Time 22.3 Seconds
[2024-04-17 07:26] VITALS: BP 122/71
--- NOTE | 2024-04-17 07:28 | ED.EPISTAXIS ---
History of Present Illness General Chief Complaint: Epistaxis/Nosebleed Stated Complaint: bloody nose for a few hours Time Seen by Provider: 04/17/24 06:36 History of Present Illness HPI Narrative: Patient is a 73-year-old gentleman who presents with left-sided epistaxis. Patient is on Coumadin for DVTs. The bleeding is fairly brisk from the left nostril. He is on amlodipine gabapentin losartan and Coumadin 5 mg daily. He has had no trauma. He feels he swallowed quite a bit of blood. As an INR 1.82. Hemoglobin is stable. Related Data Home Medications ?Medication ?Instructions ?Recorded ?Confirmed amlodipine 10 mg tablet 10 mg PO DAILY 09/12/22 10/24/22 clobetasol 0.05 % topical ointment 1 applic topical BID 09/12/22 10/24/22 fluorouracil 5 % topical cream 1 applic topical BID 09/12/22 10/24/22 gabapentin 300 mg capsule 300 mg PO 3XD 09/12/22 10/24/22 losartan 50 mg tablet 50 mg PO DAILY 09/12/22 10/24/22 tramadol 50 mg tablet 50 - 100 mg PO QID PRN 09/12/22 10/24/22 warfarin 5 mg tablet mg PO 09/12/22 10/24/22 Allergies Allergy/AdvReac Type Severity Reaction Status Date / Time Enuddfr-EKH-FwF Reductase Allergy Verified 10/24/22 08:45 Inhibitor Review of Systems Status of ROS: Reports: 10 or more systems reviewed and unremarkable except as noted in History and below [facility] Medical History Hypertension ?I10 - Essential (primary) hypertension (ICD-10) Factor 5 Leiden mutation, heterozygous ?D68.51 - Activated protein C resistance (ICD-10) DVT (deep venous thrombosis) ?I82.409 - Acute embolism and thrombosis of unspecified deep veins of unspecified lower extremity (ICD-10) Surgical History H/O brain surgery ?Z98.890 - Other specified postprocedural states (ICD-10) Social History Smoking Status: Never smoker Do you use any of these nicotine containing products: None Second hand tobacco smoke exposure: Yes How often do you have a drink containing alcohol: never How often do you have six or more drinks on one occasion: Never AUDIT-C Alcohol total score: 0 Non-prescribed substance use: denies use service: No Exam Narrative: Exam Narrative: EXAM GENERAL: Patient appears comfortable and well. EYES: No scleral icterus. ENT: Tympanic membranes and oropharynx normal. Significant bleeding from the left nostril. There was significant blood in the oropharynx. THYROID: no thyroid nodules or thyromegaly. LYMPH: No supraclavicular or cervical lymphadenopathy. SKIN: Visible skin seen during exam normal or with benign process only. EXT: No dependent lower extremity pedal edema. HEART: Regular rate and rhythm with no murmurs, rubs, or gallops. LUNGS: Clear to auscultation bilaterally with no crackles or wheezes. ABD: Soft, non tender, non distended. PSYCH: Good eye contact, speech is not pressured. Const: Vital Signs, click to edit/add: Vital Signs - 24 hr 04/17/24 06:21 04/17/24 07:26 Temperature 97.8 F Pulse Rate [Pulse Oximeter] 86 Respiratory Rate 16 Blood Pressure [Ri ght Upper Arm] 152/84 H 122/71 Pulse Oximetry 98 Oxygen Delivery Me thod Room Air Course Course ED Course: After explaining the risks and benefits I did pack the left side of his nose with Afrin-soaked cotton balls. Hemostasis was achieved. Vital Signs Vital signs: Initial Vital Signs Temperature 97.8 F 04/17/24 06:21 Temperature Source Temporal Artery Scan 04/17/24 06:21 Pulse Rate 86 04/17/24 06:21 Respiratory Rate 16 04/17/24 06:21 Blood Pressure 152/84 H 04/17/24 06:21 Blood Pressure Mean 106 H 04/17/24 06:21 Blood Pressure Position Sitting 04/17/24 06:21 Pulse Oximetry 98 04/17/24 06:21 Oxygen Delivery Method Room Air 04/17/24 06:21 Vital Signs Temperature 97.8 F 04/17/24 06:21 Pulse Rate 86 04/17/24 06:21 Respiratory Rate 16 04/17/24 06:21 Blood Pressure 152/84 H 04/17/24 06:21 Pulse Oximetry 98 04/17/24 06:21 Oxygen Delivery Method Room Air 04/17/24 06:21 Temperature 97.8 F 04/17/24 06:21 Pulse Rate 86 04/17/24 06:21 Respiratory Rate 16 04/17/24 06:21 Blood Pressure 122/71 04/17/24 07:26 Pulse Oximetry 98 04/17/24 06:21 Oxygen Delivery Method Room Air 04/17/24 06:21 MDM - Epistaxis MDM Narrative Medical decision making narrative: Patient is a 73-year-old gentleman with history of factor 5 Leiden disorder and DVTs who presents with epistaxis. I did successfully packed the left side of his nose and he has hemostasis. He will hold Coumadin today taking it tomorrow removing the packing tomorrow and following up as needed. Lab Data Labs: Lab Results 04/17/24 Range/Units 06:47 WBC 4.44 L (4.50-11.00) K/uL RBC 4.40 (4.30-5.90) m/uL Hgb 13.4 L (13.5-17.5) gm/dL Hct 42.2 (37.0-53.0) % MCV 96 (80-100) fL MCH 31 (26-34) pg MCHC 32 (32-36) gm/dL RDW Coeff of Ildefonso 13.2 (11.5-15.5) % Plt Count 230 (140-440) K/uL Neut % (Auto) 55.8 (42.0-72.0) % Lymph % (Auto) 23.9 (20-44) % [place] % (Auto) 11.3 H (0.0-11.0) % Eos % (Auto) 7.9 H (0.0-7.0) % Baso % (Auto) 1.1 (0.0-3.0) % Neut # (Auto) 2.50 (1.7-7.0) K/uL Lymph # (Auto) 1.10 (0.90-2.90) K/uL [place] # (Auto) 0.50 (0.00-0.90) K/UL Eos # (Auto) 0.40 (0.00-0.50) K/uL Baso # (Auto) 0.00 (0.00-0.30) K/uL Abs Immat Gran (auto) 0.00 (0.00-0.30) K/uL Imm/Tot Granulo (auto) 0.0 % INR 1.82 H (0.91-1.10) Discharge Plan Discharge Clinical Impression: Epistaxis Instructions: Nosebleed (ED) Additional Instructions: Packing out tomorrow Activity Level: No Restrictions Prescriptions: No Action tramadol 50 mg tablet 50 - 100 mg PO QID PRN losartan 50 mg tablet 50 mg PO DAILY warfarin 5 mg tablet PO amlodipine 10 mg tablet 10 mg PO DAILY clobetasol 0.05 % ointment 1 applic topical BID fluorouracil 5 % cream 1 applic topical BID gabapentin 300 mg capsule 300 mg PO 3XD Follow Up/Referrals: Ty Salomon MD [Primary Care Provider] -
== END 2024-04-17 07:43 | disposition home or self-care (01) ==
LOC: ED 06:52
PROVIDERS: Emergency Provider Internal Medicine; PCP Student in an Organized Health Care Education/Training Program
DX: R04.0 Epistaxis (principal)
CPT/HCPCS: 30901; 36415; 85025; 85610; 99283

== ENCOUNTER 2024-04-28 08:09 | Outpatient (CLI) | payer MEDICARE, BC, SELFPAY | END 2024-04-28 08:10 | disposition home or self-care (01) | LOC: WOUND 08:10 | PROVIDERS: PCP Student in an Organized Health Care Education/Training Program; Visit Provider Nurse Practitioner Family | DX: I87.313 Chronic venous hypertension (idiopathic) with ulcer of bilateral lower extremity (principal); I87.2 Venous insufficiency (chronic) (peripheral); I89.0 Lymphedema, not elsewhere classified; L97.818 Non-pressure chronic ulcer of other part of right lower leg with other specified severity; L97.318 Non-pressure chronic ulcer of right ankle with other specified severity; L97.328 Non-pressure chronic ulcer of left ankle with other specified severity | CPT/HCPCS: 11042; 97597 ==

== ENCOUNTER 2024-05-12 08:03 | Outpatient (CLI) | payer MEDICARE, BC, SELFPAY | END 2024-05-12 08:04 | disposition home or self-care (01) | PROVIDERS: PCP Student in an Organized Health Care Education/Training Program; Visit Provider Nurse Practitioner Family | DX: I87.313 Chronic venous hypertension (idiopathic) with ulcer of bilateral lower extremity (principal); I87.2 Venous insufficiency (chronic) (peripheral); I89.0 Lymphedema, not elsewhere classified; L97.318 Non-pressure chronic ulcer of right ankle with other specified severity; L97.328 Non-pressure chronic ulcer of left ankle with other specified severity | CPT/HCPCS: 15271; 97597; Q4201 ==

== ENCOUNTER 2024-05-25 08:00 | Outpatient (CLI) | payer MEDICARE, BC, SELFPAY | END 2024-05-25 08:01 | disposition home or self-care (01) | LOC: WOUND 08:00 | PROVIDERS: PCP Student in an Organized Health Care Education/Training Program; Visit Provider Family Medicine | DX: I87.313 Chronic venous hypertension (idiopathic) with ulcer of bilateral lower extremity (principal); I87.2 Venous insufficiency (chronic) (peripheral); L97.312 Non-pressure chronic ulcer of right ankle with fat layer exposed; L97.322 Non-pressure chronic ulcer of left ankle with fat layer exposed | CPT/HCPCS: 15271; Q4201 ==

== ENCOUNTER 2024-06-09 08:04 | Outpatient (CLI) | payer MEDICARE, BC, SELFPAY | END 2024-06-09 08:05 | disposition home or self-care (01) | LOC: WOUND 08:05 | PROVIDERS: PCP Student in an Organized Health Care Education/Training Program; Visit Provider Nurse Practitioner Family | DX: I87.313 Chronic venous hypertension (idiopathic) with ulcer of bilateral lower extremity (principal); I87.2 Venous insufficiency (chronic) (peripheral); I89.0 Lymphedema, not elsewhere classified; L97.318 Non-pressure chronic ulcer of right ankle with other specified severity; L97.328 Non-pressure chronic ulcer of left ankle with other specified severity | CPT/HCPCS: 97597 ==

== ENCOUNTER 2024-06-23 13:55 | Outpatient (CLI) | payer MEDICARE, BC, SELFPAY | END 2024-06-23 13:56 | disposition home or self-care (01) | LOC: WOUND 13:55 | PROVIDERS: PCP Student in an Organized Health Care Education/Training Program; Visit Provider Nurse Practitioner Family | DX: I87.313 Chronic venous hypertension (idiopathic) with ulcer of bilateral lower extremity (principal); I87.2 Venous insufficiency (chronic) (peripheral); I89.0 Lymphedema, not elsewhere classified; L97.322 Non-pressure chronic ulcer of left ankle with fat layer exposed; L97.312 Non-pressure chronic ulcer of right ankle with fat layer exposed | CPT/HCPCS: 11042 ==

== ENCOUNTER 2024-07-07 08:07 | Outpatient (CLI) | payer MEDICARE, BC, SELFPAY | END 2024-07-07 08:08 | disposition home or self-care (01) | PROVIDERS: PCP Student in an Organized Health Care Education/Training Program; Visit Provider Nurse Practitioner Family | DX: I87.313 Chronic venous hypertension (idiopathic) with ulcer of bilateral lower extremity (principal); I87.2 Venous insufficiency (chronic) (peripheral); I89.0 Lymphedema, not elsewhere classified; L97.322 Non-pressure chronic ulcer of left ankle with fat layer exposed; L97.312 Non-pressure chronic ulcer of right ankle with fat layer exposed | CPT/HCPCS: 15271; Q4151 ==

== ENCOUNTER 2024-07-21 08:11 | Outpatient (CLI) | payer MEDICARE, BC, SELFPAY | END 2024-07-21 08:12 | disposition home or self-care (01) | LOC: WOUND 08:11 | PROVIDERS: PCP Student in an Organized Health Care Education/Training Program; Visit Provider Nurse Practitioner Family | DX: I87.313 Chronic venous hypertension (idiopathic) with ulcer of bilateral lower extremity (principal); I87.2 Venous insufficiency (chronic) (peripheral); I89.0 Lymphedema, not elsewhere classified; L97.328 Non-pressure chronic ulcer of left ankle with other specified severity; L97.312 Non-pressure chronic ulcer of right ankle with fat layer exposed | CPT/HCPCS: 15271; Q4151 ==

== ENCOUNTER 2024-08-04 07:59 | Outpatient (CLI) | payer MEDICARE, BC, SELFPAY | END 2024-08-04 08:00 | disposition home or self-care (01) | PROVIDERS: PCP Student in an Organized Health Care Education/Training Program; Visit Provider Nurse Practitioner Family | DX: I87.313 Chronic venous hypertension (idiopathic) with ulcer of bilateral lower extremity (principal); I87.2 Venous insufficiency (chronic) (peripheral); I89.0 Lymphedema, not elsewhere classified; L97.312 Non-pressure chronic ulcer of right ankle with fat layer exposed; L97.328 Non-pressure chronic ulcer of left ankle with other specified severity | CPT/HCPCS: 87070; 87186; 97597; G0463 ==

== ENCOUNTER 2024-08-18 08:09 | Outpatient (CLI) | payer MEDICARE, BC, SELFPAY | END 2024-08-18 08:10 | disposition home or self-care (01) | LOC: WOUND 08:09 | PROVIDERS: PCP Student in an Organized Health Care Education/Training Program; Visit Provider Nurse Practitioner Family | DX: I87.313 Chronic venous hypertension (idiopathic) with ulcer of bilateral lower extremity (principal); I87.2 Venous insufficiency (chronic) (peripheral); I89.0 Lymphedema, not elsewhere classified; L97.322 Non-pressure chronic ulcer of left ankle with fat layer exposed; L97.312 Non-pressure chronic ulcer of right ankle with fat layer exposed | CPT/HCPCS: 97597 ==

== ENCOUNTER 2024-09-01 08:01 | Outpatient (CLI) | payer MEDICARE, BC, SELFPAY | END 2024-09-01 08:02 | disposition home or self-care (01) | PROVIDERS: PCP Student in an Organized Health Care Education/Training Program; Visit Provider Family Medicine | DX: I87.2 Venous insufficiency (chronic) (peripheral) (principal); I89.0 Lymphedema, not elsewhere classified; L97.322 Non-pressure chronic ulcer of left ankle with fat layer exposed; L97.312 Non-pressure chronic ulcer of right ankle with fat layer exposed | CPT/HCPCS: 11042 ==

== ENCOUNTER 2024-09-08 08:00 | Outpatient (CLI) | payer MEDICARE, BC, SELFPAY | END 2024-09-08 08:01 | disposition home or self-care (01) | LOC: WOUND 08:00 | PROVIDERS: PCP Student in an Organized Health Care Education/Training Program; Visit Provider Nurse Practitioner Family | DX: I87.313 Chronic venous hypertension (idiopathic) with ulcer of bilateral lower extremity (principal); I87.2 Venous insufficiency (chronic) (peripheral); L97.322 Non-pressure chronic ulcer of left ankle with fat layer exposed; L97.312 Non-pressure chronic ulcer of right ankle with fat layer exposed; I89.0 Lymphedema, not elsewhere classified | CPT/HCPCS: 11042; 87070; 87186; G0463 ==

== ENCOUNTER 2024-09-15 08:07 | Outpatient (CLI) | payer MEDICARE, BC, SELFPAY | END 2024-09-15 08:08 | disposition home or self-care (01) | LOC: WOUND 08:08 | PROVIDERS: PCP Student in an Organized Health Care Education/Training Program; Visit Provider Nurse Practitioner Family | DX: I87.313 Chronic venous hypertension (idiopathic) with ulcer of bilateral lower extremity (principal); I87.2 Venous insufficiency (chronic) (peripheral); I89.0 Lymphedema, not elsewhere classified; L97.322 Non-pressure chronic ulcer of left ankle with fat layer exposed; L97.312 Non-pressure chronic ulcer of right ankle with fat layer exposed | CPT/HCPCS: 97597 ==

== ENCOUNTER 2024-09-29 08:06 | Outpatient (CLI) | payer MEDICARE, BC, SELFPAY | END 2024-09-29 08:07 | disposition home or self-care (01) | LOC: WOUND 08:07 | PROVIDERS: PCP Student in an Organized Health Care Education/Training Program; Visit Provider Physician Assistant | DX: I87.313 Chronic venous hypertension (idiopathic) with ulcer of bilateral lower extremity (principal); I87.2 Venous insufficiency (chronic) (peripheral); I89.0 Lymphedema, not elsewhere classified; L97.322 Non-pressure chronic ulcer of left ankle with fat layer exposed; L97.312 Non-pressure chronic ulcer of right ankle with fat layer exposed | CPT/HCPCS: 97597 ==

== ENCOUNTER 2024-10-13 07:54 | Outpatient (CLI) | payer MEDICARE, BC, SELFPAY | END 2024-10-13 07:55 | disposition home or self-care (01) | LOC: WOUND 07:54 | PROVIDERS: PCP Student in an Organized Health Care Education/Training Program; Visit Provider Physician Assistant | DX: I87.313 Chronic venous hypertension (idiopathic) with ulcer of bilateral lower extremity (principal); I87.2 Venous insufficiency (chronic) (peripheral); I89.0 Lymphedema, not elsewhere classified; L97.312 Non-pressure chronic ulcer of right ankle with fat layer exposed; L97.322 Non-pressure chronic ulcer of left ankle with fat layer exposed | CPT/HCPCS: 97597 ==

== ENCOUNTER 2024-10-27 08:05 | Outpatient (CLI) | payer MEDICARE, BC, SELFPAY | END 2024-10-27 08:06 | disposition home or self-care (01) | LOC: WOUND 08:06 | PROVIDERS: PCP Student in an Organized Health Care Education/Training Program; Visit Provider Family Medicine | DX: I87.313 Chronic venous hypertension (idiopathic) with ulcer of bilateral lower extremity (principal); I87.2 Venous insufficiency (chronic) (peripheral); I89.0 Lymphedema, not elsewhere classified; L97.322 Non-pressure chronic ulcer of left ankle with fat layer exposed; L97.312 Non-pressure chronic ulcer of right ankle with fat layer exposed | CPT/HCPCS: 11042 ==

== ENCOUNTER 2024-11-10 08:00 | Outpatient (CLI) | payer MEDICARE, BC, SELFPAY | END 2024-11-10 08:01 | disposition home or self-care (01) | LOC: WOUND 08:01 | PROVIDERS: PCP Student in an Organized Health Care Education/Training Program; Visit Provider Nurse Practitioner Family | DX: I87.313 Chronic venous hypertension (idiopathic) with ulcer of bilateral lower extremity (principal); I87.2 Venous insufficiency (chronic) (peripheral); I89.0 Lymphedema, not elsewhere classified; L97.322 Non-pressure chronic ulcer of left ankle with fat layer exposed; L97.312 Non-pressure chronic ulcer of right ankle with fat layer exposed | CPT/HCPCS: 97597 ==

== ENCOUNTER 2024-11-24 08:04 | Outpatient (CLI) | payer MEDICARE, BC, SELFPAY | END 2024-11-24 08:05 | disposition home or self-care (01) | LOC: WOUND 08:05 | PROVIDERS: PCP Student in an Organized Health Care Education/Training Program; Visit Provider Physician Assistant | DX: I87.311 Chronic venous hypertension (idiopathic) with ulcer of right lower extremity (principal); I87.2 Venous insufficiency (chronic) (peripheral); I89.0 Lymphedema, not elsewhere classified; L97.312 Non-pressure chronic ulcer of right ankle with fat layer exposed | CPT/HCPCS: 97597 ==

== ENCOUNTER 2024-12-08 08:04 | Outpatient (CLI) | payer MEDICARE, BC, SELFPAY | END 2024-12-08 08:05 | disposition home or self-care (01) | LOC: WOUND 08:04 | PROVIDERS: PCP Student in an Organized Health Care Education/Training Program; Visit Provider Nurse Practitioner Family | DX: I87.313 Chronic venous hypertension (idiopathic) with ulcer of bilateral lower extremity (principal); I87.2 Venous insufficiency (chronic) (peripheral); I89.0 Lymphedema, not elsewhere classified; L97.322 Non-pressure chronic ulcer of left ankle with fat layer exposed; L97.312 Non-pressure chronic ulcer of right ankle with fat layer exposed | CPT/HCPCS: 97597 ==

== ENCOUNTER 2024-12-15 12:54 | Outpatient (CLI) | payer MEDICARE, BC, SELFPAY | END 2024-12-15 12:55 | disposition home or self-care (01) | LOC: WOUND 12:54 | PROVIDERS: PCP Student in an Organized Health Care Education/Training Program; Visit Provider Nurse Practitioner Family | DX: I87.313 Chronic venous hypertension (idiopathic) with ulcer of bilateral lower extremity (principal); I87.2 Venous insufficiency (chronic) (peripheral); I89.0 Lymphedema, not elsewhere classified; L97.322 Non-pressure chronic ulcer of left ankle with fat layer exposed; L97.312 Non-pressure chronic ulcer of right ankle with fat layer exposed | CPT/HCPCS: 15271; Q4101 ==

== ENCOUNTER 2024-12-22 08:00 | Outpatient (CLI) | payer MEDICARE, BC, SELFPAY | END 2024-12-22 08:01 | disposition home or self-care (01) | LOC: WOUND 08:00 | PROVIDERS: PCP Student in an Organized Health Care Education/Training Program; Visit Provider Nurse Practitioner Family | DX: I87.313 Chronic venous hypertension (idiopathic) with ulcer of bilateral lower extremity (principal); I87.2 Venous insufficiency (chronic) (peripheral); I89.0 Lymphedema, not elsewhere classified; L97.322 Non-pressure chronic ulcer of left ankle with fat layer exposed; L97.312 Non-pressure chronic ulcer of right ankle with fat layer exposed | CPT/HCPCS: G0463 ==

== ENCOUNTER 2024-12-29 08:02 | Outpatient (CLI) | payer MEDICARE, BC, SELFPAY | END 2024-12-29 08:03 | disposition home or self-care (01) | LOC: WOUND 08:03 | PROVIDERS: PCP Student in an Organized Health Care Education/Training Program; Visit Provider Nurse Practitioner Family | DX: I87.313 Chronic venous hypertension (idiopathic) with ulcer of bilateral lower extremity (principal); I87.2 Venous insufficiency (chronic) (peripheral); I89.0 Lymphedema, not elsewhere classified; L97.322 Non-pressure chronic ulcer of left ankle with fat layer exposed; L97.312 Non-pressure chronic ulcer of right ankle with fat layer exposed | CPT/HCPCS: 15271; Q4101 ==

== ENCOUNTER 2025-01-05 08:10 | Outpatient (CLI) | payer MEDICARE, BC, SELFPAY | END 2025-01-05 08:11 | disposition home or self-care (01) | PROVIDERS: PCP Student in an Organized Health Care Education/Training Program; Visit Provider Nurse Practitioner Family | DX: I87.313 Chronic venous hypertension (idiopathic) with ulcer of bilateral lower extremity (principal); I87.2 Venous insufficiency (chronic) (peripheral); I89.0 Lymphedema, not elsewhere classified; L97.312 Non-pressure chronic ulcer of right ankle with fat layer exposed; L97.322 Non-pressure chronic ulcer of left ankle with fat layer exposed | CPT/HCPCS: G0463 ==

== ENCOUNTER 2025-01-12 08:38 | Outpatient (CLI) | payer MEDICARE, BC, SELFPAY | END 2025-01-12 08:39 | disposition home or self-care (01) | LOC: WOUND 08:38 | PROVIDERS: PCP Student in an Organized Health Care Education/Training Program; Visit Provider Nurse Practitioner Family | DX: I87.313 Chronic venous hypertension (idiopathic) with ulcer of bilateral lower extremity (principal); L97.322 Non-pressure chronic ulcer of left ankle with fat layer exposed; L97.312 Non-pressure chronic ulcer of right ankle with fat layer exposed; I89.0 Lymphedema, not elsewhere classified; Z86.718 Personal history of other venous thrombosis and embolism; I10 Essential (primary) hypertension | CPT/HCPCS: 97597 ==

== ENCOUNTER 2025-01-19 08:04 | Outpatient (CLI) | payer MEDICARE, BC, SELFPAY | END 2025-01-19 08:05 | disposition home or self-care (01) | LOC: WOUND 08:05 | PROVIDERS: PCP Student in an Organized Health Care Education/Training Program; Visit Provider Nurse Practitioner Family | DX: I87.313 Chronic venous hypertension (idiopathic) with ulcer of bilateral lower extremity (principal); I87.2 Venous insufficiency (chronic) (peripheral); I89.0 Lymphedema, not elsewhere classified; L97.312 Non-pressure chronic ulcer of right ankle with fat layer exposed; L97.322 Non-pressure chronic ulcer of left ankle with fat layer exposed | CPT/HCPCS: 97597 ==

== ENCOUNTER 2025-01-29 15:19 | Outpatient (CLI) | payer MEDICARE, BC, SELFPAY | END 2025-01-29 15:20 | disposition home or self-care (01) | LOC: WOUND 15:19 | PROVIDERS: PCP Student in an Organized Health Care Education/Training Program; Visit Provider Nurse Practitioner Family | DX: I87.313 Chronic venous hypertension (idiopathic) with ulcer of bilateral lower extremity (principal); I87.2 Venous insufficiency (chronic) (peripheral); I89.0 Lymphedema, not elsewhere classified; L97.312 Non-pressure chronic ulcer of right ankle with fat layer exposed; L97.322 Non-pressure chronic ulcer of left ankle with fat layer exposed | CPT/HCPCS: 11042 ==

== ENCOUNTER 2025-02-02 07:47 | Outpatient (CLI) | payer MEDICARE, BC, SELFPAY | END 2025-02-02 07:48 | disposition home or self-care (01) | PROVIDERS: PCP Student in an Organized Health Care Education/Training Program; Visit Provider Nurse Practitioner Family | DX: I87.313 Chronic venous hypertension (idiopathic) with ulcer of bilateral lower extremity (principal); I87.2 Venous insufficiency (chronic) (peripheral); I89.0 Lymphedema, not elsewhere classified; L97.322 Non-pressure chronic ulcer of left ankle with fat layer exposed; L97.312 Non-pressure chronic ulcer of right ankle with fat layer exposed | CPT/HCPCS: 97597 ==

== ENCOUNTER 2025-02-09 08:28 | Outpatient (CLI) | payer MEDICARE, BC, SELFPAY | END 2025-02-09 08:29 | disposition home or self-care (01) | LOC: WOUND 08:29 | PROVIDERS: PCP Student in an Organized Health Care Education/Training Program; Visit Provider Nurse Practitioner Family | DX: I87.313 Chronic venous hypertension (idiopathic) with ulcer of bilateral lower extremity (principal); I87.2 Venous insufficiency (chronic) (peripheral); I89.0 Lymphedema, not elsewhere classified; L97.312 Non-pressure chronic ulcer of right ankle with fat layer exposed; L97.322 Non-pressure chronic ulcer of left ankle with fat layer exposed | CPT/HCPCS: 15271; Q4121 ==

== ENCOUNTER 2025-02-16 08:06 | Outpatient (CLI) | payer MEDICARE, BC, SELFPAY | END 2025-02-16 08:07 | disposition home or self-care (01) | LOC: WOUND 08:06 | PROVIDERS: PCP Student in an Organized Health Care Education/Training Program; Visit Provider Nurse Practitioner Family | DX: I87.313 Chronic venous hypertension (idiopathic) with ulcer of bilateral lower extremity (principal); I87.2 Venous insufficiency (chronic) (peripheral); I89.0 Lymphedema, not elsewhere classified; L97.312 Non-pressure chronic ulcer of right ankle with fat layer exposed; L97.322 Non-pressure chronic ulcer of left ankle with fat layer exposed | CPT/HCPCS: G0463 ==

== ENCOUNTER 2025-02-23 08:06 | Outpatient (CLI) | payer MEDICARE, BC, SELFPAY | END 2025-02-23 08:07 | disposition home or self-care (01) | LOC: WOUND 08:07 | PROVIDERS: PCP Student in an Organized Health Care Education/Training Program; Visit Provider Nurse Practitioner Family | DX: I87.313 Chronic venous hypertension (idiopathic) with ulcer of bilateral lower extremity (principal); I87.2 Venous insufficiency (chronic) (peripheral); I89.0 Lymphedema, not elsewhere classified; L97.322 Non-pressure chronic ulcer of left ankle with fat layer exposed; L97.312 Non-pressure chronic ulcer of right ankle with fat layer exposed | CPT/HCPCS: 11042 ==

== ENCOUNTER 2025-03-02 08:52 | Outpatient (CLI) | payer MEDICARE, BC, SELFPAY | END 2025-03-02 08:53 | disposition home or self-care (01) | LOC: WOUND 08:53 | PROVIDERS: PCP Student in an Organized Health Care Education/Training Program; Visit Provider Nurse Practitioner Family | DX: I87.313 Chronic venous hypertension (idiopathic) with ulcer of bilateral lower extremity (principal); I87.2 Venous insufficiency (chronic) (peripheral); I89.0 Lymphedema, not elsewhere classified; L97.312 Non-pressure chronic ulcer of right ankle with fat layer exposed; L97.322 Non-pressure chronic ulcer of left ankle with fat layer exposed | CPT/HCPCS: 11042 ==

== ENCOUNTER 2025-03-09 08:05 | Outpatient (CLI) | payer MEDICARE, BC, SELFPAY | END 2025-03-09 08:06 | disposition home or self-care (01) | LOC: WOUND 08:05 | PROVIDERS: PCP Student in an Organized Health Care Education/Training Program; Visit Provider Nurse Practitioner Family | DX: I87.313 Chronic venous hypertension (idiopathic) with ulcer of bilateral lower extremity (principal); I87.2 Venous insufficiency (chronic) (peripheral); I89.0 Lymphedema, not elsewhere classified; L97.312 Non-pressure chronic ulcer of right ankle with fat layer exposed; L97.322 Non-pressure chronic ulcer of left ankle with fat layer exposed | CPT/HCPCS: 11042 ==

== ENCOUNTER 2025-03-16 08:05 | Outpatient (CLI) | payer MEDICARE, BC, SELFPAY | END 2025-03-16 08:06 | disposition home or self-care (01) | LOC: WOUND 08:05 | PROVIDERS: PCP Student in an Organized Health Care Education/Training Program; Visit Provider Nurse Practitioner Family | DX: I87.313 Chronic venous hypertension (idiopathic) with ulcer of bilateral lower extremity (principal); I87.2 Venous insufficiency (chronic) (peripheral); I89.0 Lymphedema, not elsewhere classified; L97.312 Non-pressure chronic ulcer of right ankle with fat layer exposed; L97.322 Non-pressure chronic ulcer of left ankle with fat layer exposed | CPT/HCPCS: 11042 ==

== ENCOUNTER 2025-03-23 08:06 | Outpatient (CLI) | payer MEDICARE, BC, SELFPAY | END 2025-03-23 08:07 | disposition home or self-care (01) | LOC: WOUND 08:06 | PROVIDERS: PCP Student in an Organized Health Care Education/Training Program; Visit Provider Nurse Practitioner Family | DX: I87.313 Chronic venous hypertension (idiopathic) with ulcer of bilateral lower extremity (principal); I87.2 Venous insufficiency (chronic) (peripheral); I89.0 Lymphedema, not elsewhere classified; L97.312 Non-pressure chronic ulcer of right ankle with fat layer exposed; L97.322 Non-pressure chronic ulcer of left ankle with fat layer exposed | CPT/HCPCS: 11042 ==

== ENCOUNTER 2025-03-30 08:42 | Outpatient (CLI) | payer MEDICARE, BC, SELFPAY | END 2025-03-30 08:43 | disposition home or self-care (01) | LOC: WOUND 08:42 | PROVIDERS: PCP Student in an Organized Health Care Education/Training Program; Visit Provider Nurse Practitioner Family | DX: I87.313 Chronic venous hypertension (idiopathic) with ulcer of bilateral lower extremity (principal); I87.2 Venous insufficiency (chronic) (peripheral); I89.0 Lymphedema, not elsewhere classified; L97.312 Non-pressure chronic ulcer of right ankle with fat layer exposed; L97.322 Non-pressure chronic ulcer of left ankle with fat layer exposed | CPT/HCPCS: 11042; 87070; G0463 ==

== ENCOUNTER 2025-04-06 08:20 | Outpatient (CLI) | payer MEDICARE, BC, SELFPAY | END 2025-04-06 08:21 | disposition home or self-care (01) | LOC: WOUND 08:20 | PROVIDERS: PCP Student in an Organized Health Care Education/Training Program; Visit Provider Nurse Practitioner Family | DX: I87.313 Chronic venous hypertension (idiopathic) with ulcer of bilateral lower extremity (principal); I87.2 Venous insufficiency (chronic) (peripheral); I89.0 Lymphedema, not elsewhere classified; L97.312 Non-pressure chronic ulcer of right ankle with fat layer exposed; L97.322 Non-pressure chronic ulcer of left ankle with fat layer exposed | CPT/HCPCS: 11042 ==

== ENCOUNTER 2025-04-13 07:59 | Outpatient (CLI) | payer MEDICARE, BC, SELFPAY | END 2025-04-13 08:00 | disposition home or self-care (01) | LOC: WOUND 07:59 | PROVIDERS: PCP Student in an Organized Health Care Education/Training Program; Visit Provider Nurse Practitioner Family | DX: I87.313 Chronic venous hypertension (idiopathic) with ulcer of bilateral lower extremity (principal); I87.2 Venous insufficiency (chronic) (peripheral); I89.0 Lymphedema, not elsewhere classified; L97.312 Non-pressure chronic ulcer of right ankle with fat layer exposed; L97.322 Non-pressure chronic ulcer of left ankle with fat layer exposed | CPT/HCPCS: 11042 ==

== ENCOUNTER 2025-04-16 09:10 | Outpatient (CLI) | payer MEDICARE, BC, SELFPAY ==
--- NOTE | 2025-04-16 09:15 | CRLHL7_ITS ---
For Patients: As a result of the Century Cures Act, medical imaging exams and procedure reports are released immediately into your electronic medical record. You may view this report before your referring provider. If you have questions, please contact your health care provider. Indication: Nonhealing wounds Comparison: 01/11/2021 Technique: Routine duplex arterial examination of bilateral lower extremities including 2D and spectral analysis, and color Doppler imaging was performed. Findings: In the right lower extremity there are multiphasic waveforms in the common femoral artery, profunda femoral artery, superficial femoral artery, and popliteal artery. Similarly, at the ankle, there are multiphasic waveforms in the posterior tibial artery, and dorsalis pedis arteries. In the left lower extremity there are multiphasic waveforms within the common femoral artery, profunda femoral artery, superficial femoral artery, and popliteal artery. Monophasic waveform in the posterior tibial artery with velocity measuring up to 171 cm/second. Triphasic waveforms in the anterior tibial and dorsalis pedis arteries. Peroneal artery not well visualized. Chronic DVT left lower extremity extending from the common femoral vein to the popliteal vein along with chronic greater saphenous venous clot. Findings are not significantly changed. Enlarged left inguinal lymph nodes are present measuring up to 5.5 x 1.7 x 1.9 cm. Left lower extremity edema noted. Right popliteal cyst is present which measures 7.3 x 5.1 x 1.9 cm. Impression: Multiphasic waveforms of the right lower extremity. Monophasic waveform in the left posterior tibial artery with elevated velocity. Extensive chronic DVT left lower extremity. Nonvisualization of the left peroneal artery. Right popliteal cyst measures 7.3 x 5.1 x 1.9 cm. Reactive left inguinal lymph nodes. Dictated by Marcus Wade MD @ 04/16/2025 3:32:42 PM (Electronically Signed)
== END 2025-04-16 09:11 | disposition home or self-care (01) ==
LOC: US 09:11
PROVIDERS: PCP Student in an Organized Health Care Education/Training Program; Visit Provider Nurse Practitioner Family
DX: S81.809A Unspecified open wound, unspecified lower leg, initial encounter (principal); I82.502 Chronic embolism and thrombosis of unspecified deep veins of left lower extremity; M71.21 Synovial cyst of popliteal space [Baker], right knee; R59.0 Localized enlarged lymph nodes; I73.9 Peripheral vascular disease, unspecified
CPT/HCPCS: 93926

== ENCOUNTER 2025-04-20 08:06 | Outpatient (CLI) | payer MEDICARE, BC, SELFPAY | END 2025-04-20 08:07 | disposition home or self-care (01) | LOC: WOUND 08:07 | PROVIDERS: PCP Student in an Organized Health Care Education/Training Program; Visit Provider Nurse Practitioner Family | DX: I87.312 Chronic venous hypertension (idiopathic) with ulcer of left lower extremity (principal); I87.2 Venous insufficiency (chronic) (peripheral); I73.9 Peripheral vascular disease, unspecified; I89.0 Lymphedema, not elsewhere classified; L97.322 Non-pressure chronic ulcer of left ankle with fat layer exposed | CPT/HCPCS: 11042 ==

== ENCOUNTER 2025-04-27 07:56 | Outpatient (CLI) | payer MEDICARE, BC, SELFPAY | END 2025-04-27 07:57 | disposition home or self-care (01) | LOC: WOUND 07:56 | PROVIDERS: PCP Student in an Organized Health Care Education/Training Program; Visit Provider Nurse Practitioner Family | DX: I87.313 Chronic venous hypertension (idiopathic) with ulcer of bilateral lower extremity (principal); I87.2 Venous insufficiency (chronic) (peripheral); I89.0 Lymphedema, not elsewhere classified; I73.9 Peripheral vascular disease, unspecified; L97.322 Non-pressure chronic ulcer of left ankle with fat layer exposed; L97.312 Non-pressure chronic ulcer of right ankle with fat layer exposed | CPT/HCPCS: 11042 ==

== ENCOUNTER 2025-05-04 07:54 | Outpatient (CLI) | payer MEDICARE, BC, SELFPAY | END 2025-05-04 07:55 | disposition home or self-care (01) | LOC: WOUND 07:56 | PROVIDERS: PCP Student in an Organized Health Care Education/Training Program; Visit Provider Nurse Practitioner Family | DX: I87.313 Chronic venous hypertension (idiopathic) with ulcer of bilateral lower extremity (principal); I87.2 Venous insufficiency (chronic) (peripheral); I89.0 Lymphedema, not elsewhere classified; I73.9 Peripheral vascular disease, unspecified; L97.312 Non-pressure chronic ulcer of right ankle with fat layer exposed; L97.322 Non-pressure chronic ulcer of left ankle with fat layer exposed | CPT/HCPCS: 11042 ==